=== PATIENT | female | born 1935 | race Caucasian/White ===

== ENCOUNTER 2021-07-16 15:02 | Inpatient (IN) | payer MEDICARE, BC ==
[~2021-07-16] VITALS: Ht 152.4 cm; Wt 79.4 kg
[2021-07-16] MEDS ORDERED: METF500T16 PO (15:58)
[2021-07-16] MEDS ORDERED: INSU100I53 SQ (15:58)
[2021-07-16] MEDS ORDERED: ALBU0.63 NEB (15:58)
[2021-07-16] MEDS ORDERED: TRAZ-120 PO (15:58)
[2021-07-16] MEDS ORDERED: GEODON IM (15:58)
[2021-07-16] MEDS ORDERED: QUET50TA5 PO (15:58)
[2021-07-16] MEDS ORDERED: ACET325T9 PO (15:58)
[2021-07-16] MEDS ORDERED: NYST15CR TP (16:01)
--- NOTE | 2021-07-16 22:25 | RAD ---
Exam: Pelvis with bilateral hips INDICATION: Pelvic and hip pain TECHNIQUE: Frontal view of pelvis with frontal and frog-leg lateral views of the right and left hip Comparisons: None FINDINGS: Bone mineralization is normal. No acute or healed fractures. Soft tissues are unremarkable. Joint spa seth are well-maintained. IMPRESSION: No acute osseous abnormality. Electronically signed by: Vale Frias MD (07/16/2021 10:22 PM) KAREEM
[2021-07-16 22:29] VITALS: BP 104/64
[2021-07-16] MEDS ORDERED: METHYL SALICYLATE/MENTHOL TOPICAL OINTMENT 57GM TUBE. TP PRN (22:45)
[2021-07-16] MEDS ORDERED: ACETAMINOPHEN 325 MG TABLET PO PRN (22:45)
[2021-07-16] MEDS ORDERED: INSULIN ASPART 100 UNIT SQ PRN (22:45)
[2021-07-16] MEDS ORDERED: MAGNESIUM HYDROXIDE 2,400 MG/30 ML ORAL.SUSP. PO PRN (22:45)
[2021-07-16] MEDS ORDERED: NYSTATIN 100,000 UNIT/GM TOPICAL CREAM 15GM TUBE. TP PRN (22:45)
[2021-07-16] MEDS ORDERED: NON FORMULARY ITEM (Albuterol Sulfate (Albuterol Sulfate Neb Soln) 1 VIAL) NEB PRN (22:45)
[2021-07-16] MEDS ORDERED: MAG HYDROX/AL HYDROX/SIMETH 30 ML ORAL.SUSP PO PRN (22:45)
[2021-07-16] MEDS ORDERED: ALBUTEROL SULFATE 2.5 MG/3 ML NEBU. NEB PRN (23:00)
[2021-07-17] MEDS ORDERED: DEXTROSE 50% 25 GM / 50ML DISP.SYRIN. IV PRN (00:15)
--- NOTE | 2021-07-17 00:41 | NUR ---
Nursing Note Admission Note with Justification for Admission to [facility] Patient admitted to [facility] for protective oversight for emergency stabilization of acute psychiatric crisis. Pt admitted from: [facility] Facility Mode of arrival: Secure Transport Accompanied By: Secure Transport Precipitating behaviors that initiated intake and admission: Pt hallucinating, irritable calling out angry, confused, Delusions, combative, verbal aggression Description of failure of out patient attempts at stabilization in previous setting list behavior and medication trials: Med adjustments, ER visit, geodon injections. Behaviors and assessment findings upon admission: Pt arrives very anxious screams out when staff touch her, shaking, very dramatic, yelling out for people. Difficult to get her to follow commands. Left leg looked shortened and externally rotated xrays normal, Grand niece states she may have a leg length discrepancy because she noted her gait off in a sort of "hobble" fashion. Pt is a poor historian. Plan: Admit for protective oversight for adjustment and stabilization of medications, behaviors and mood. Intense treatment regimen including groups, medication adjustments, therapy, consistent regimen for ADL's, self care, and sleep hygiene. Daily monitoring by Inpatient staff, Psychiatry, and Medical Physician.
[2021-07-17 06:10] VITALS: BP 95/55
[2021-07-17] MEDS ORDERED: ALBUTEROL SULFATE 8GM INHALER. INH PRN (06:30)
[2021-07-17 06:55] LABS: BASO # 0.1 x10^3/uL (0.0-0.2); BASO % 1 % (0-3); EOS # 0.2 x10^3/uL (0.0-0.7); EOS % 3 % (0-3); HEMATOCRIT 31.1 % (36.0-47.0); LYMPH # 2.6 x10^3/uL (1.0-4.8); LYMPH % 32 % (24-48); MEAN CORPUSCULAR HEMOGLOBIN 27 pg (25-35); MEAN CORPUSCULAR HGB CONC 32 g/dL (31-37); MEAN CORPUSCULAR VOLUME 85 fL (79-100); MONO # 0.6 x10^3/uL (0.0-1.1); MONO % 7 % (0-9); NEUT # 4.6 x10^3uL (1.8-7.7); NEUT % 57 % (31-73); PLATELET COUNT 158 x10^3/uL (140-400); RED BLOOD COUNT 3.67 x10^6/uL (3.50-5.40); RED CELL DISTRIBUTION WIDTH 14.4 % (11.5-14.5)
[2021-07-17 07:03] LABS: ALBUMIN 2.3 g/dL (3.4-5.0); ALBUMIN/GLOBULIN RATIO 0.5 (1.0-1.7); CALCIUM 8.6 mg/dL (8.5-10.1); CREATININE 1.2 mg/dL (0.6-1.0); GFR 42.8; MAGNESIUM 1.5 mg/dL (1.8-2.4); POTASSIUM 3.8 mmol/L (3.5-5.1); TOTAL BILIRUBIN 0.2 mg/dL (0.2-1.0); TOTAL PROTEIN 6.5 g/dL (6.4-8.2)
--- NOTE | 2021-07-17 07:17 | PDOC ---
Exam Note: Troy Note: Late entry for 07/16/2021. Please also refer to the separate dictated note~for this date of service dictated separately.~Patient seen individually. Discussed the patient with Nursing staff reviewed the chart.~Reviewed interim history and current functioning. Reviewed vital signs,~Labs/ Radiology~and current medic ations noted below. Continue current treatment with the changes noted in the dictated addendum note Assessment: Vital Signs/I&O: Vital Signs Date Time Temp Pulse Resp B/P (MAP) Pulse Ox O2 Delivery O2 Flow Rate FiO2 07/17/21 06:10 96.9 77 16 95/55 (68) 93 I & O 07/16/21 07/16/21 07/17/21 15:00 23:00 07:00 Intake Total 0 ml Balance 0 ml Labs: Laboratory Tests Test 07/17/21 06:30 White Blood Count 8.0 x10^3/uL (4.0-11.0) Red Blood Count 3.67 x10^6/uL (3.50-5.40) Hemoglobin 10.0 g/dL (12.0-15.5) L Hematocrit 31.1 % (36.0-47.0) L Mean Corpuscular Volume 85 fL (79-100) Mean Corpuscular Hemoglobin 27 pg (25-35) Mean Corpuscular Hemoglobin Concent 32 g/dL (31-37) Red Cell Distribution Width 14.4 % (11.5-14.5) Platelet Count 158 x10^3/uL (140-400) Neutrophils (%) (Auto) 57 % (31-73) Lymphocytes (%) (Auto) 32 % (24-48) Monocytes (%) (Auto) 7 % (0-9) Eosinophils (%) (Auto) 3 % (0-3) Basophils (%) (Auto) 1 % (0-3) Neutrophils # (Auto) 4.6 x10^3uL (1.8-7.7) Lymphocytes # (Auto) 2.6 x10^3/uL (1.0-4.8) Monocytes # (Auto) 0.6 x10^3/uL (0.0-1.1) Eosinophils # (Auto) 0.2 x10^3/uL (0.0-0.7) Basophils # (Auto) 0.1 x10^3/uL (0.0-0.2) Sodium Level 142 mmol/L (136-145) Potassium Level 3.8 mmol/L (3.5-5.1) Chloride Level 107 mmol/L (98-107) Carbon Dioxide Level 27 mmol/L (21-32) Anion Gap 8 (6-14) Blood Urea Nitrogen 24 mg/dL (7-20) H Creatinine 1.2 mg/dL (0.6-1.0) H Estimated GFR (Cockcroft-Gault) 42.8 BUN/Creatinine Ratio 20 (6-20) Glucose Level 145 mg/dL (70-99) H Calcium Level 8.6 mg/dL (8.5-10.1) Magnesium Level 1.5 mg/dL (1.8-2.4) L Total Bilirubin 0.2 mg/dL (0.2-1.0) Aspartate Amino Transferase (AST) 22 U/L (15-37) Alanine Aminotransferase (ALT) 26 U/L (14-59) Alkaline Phosphatase 106 U/L (46-116) Total Protein 6.5 g/dL (6.4-8.2) Albumin 2.3 g/dL (3.4-5.0) L Albumin/Globulin Ratio 0.5 (1.0-1.7) L Current Medications: Meds: Laboratory Tests Test 07/17/21 06:30 White Blood Count 8.0 x10^3/uL Red Blood Count 3.67 x10^6/uL Hemoglobin 10.0 g/dL Hematocrit 31.1 % Mean Corpuscular Volume 85 fL Mean Corpuscular Hemoglobin 27 pg Mean Corpuscular Hemoglobin Concent 32 g/dL Red Cell Distribution Width 14.4 % Platelet Count 158 x10^3/uL Neutrophils (%) (Auto) 57 % Lymphocytes (%) (Auto) 32 % Monocytes (%) (Auto) 7 % Eosinophils (%) (Auto) 3 % Basophils (%) (Auto) 1 % Neutrophils # (Auto) 4.6 x10^3uL Lymphocytes # (Auto) 2.6 x10^3/uL Monocytes # (Auto) 0.6 x10^3/uL Eosinophils # (Auto) 0.2 x10^3/uL Basophils # (Auto) 0.1 x10^3/uL Sodium Level 142 mmol/L Potassium Level 3.8 mmol/L Chloride Level 107 mmol/L Carbon Dioxide Level 27 mmol/L Anion Gap 8 Blood Urea Nitrogen 24 mg/dL Creatinine 1.2 mg/dL Estimated GFR (Cockcroft-Gault) 42.8 BUN/Creatinine Ratio 20 Glucose Level 145 mg/dL Calcium Level 8.6 mg/dL Magnesium Level 1.5 mg/dL Total Bilirubin 0.2 mg/dL Aspartate Amino Transf (AST/SGOT) 22 U/L Alanine Aminotransferase (ALT/SGPT) 26 U/L Alkaline Phosphatase 106 U/L Total Protein 6.5 g/dL Albumin 2.3 g/dL Albumin/Globulin Ratio 0.5 Current Medications Medications (Trade) Dose Ordered Sig/Richard Route PRN Reason Start Time Stop Time Status Last Admin Dose Admin Influenza Virus Vaccine Quadrival (Flulaval Quad Syringe) 0.5 ml ONCE ONCE VAX IM 07/17/21 09:00 07/17/21 09:01 Acetaminophen (Tylenol) 650 mg PRN Q6HRS PRN PO PAIN/FEVER 07/16/21 22:45 UNV Metformin HCl (Glucophage) 1,000 mg BIDWMEALS PO 07/17/21 08:00 Nystatin (Mycostatin) 1 sulma PRN BID PRN TP RASH 07/16/21 22:45 Quetiapine Fumarate (SEROquel) 50 mg BID PO 07/17/21 09:00 Trazodone HCl (Desyrel) 50 mg QHS PO 07/17/21 21:00 Non-Formulary Medication (Albuterol Sulfate (Albuterol Sulfate Neb Soln)) 1 vial QID PRN NEB SHORTNESS OF AIR 07/16/21 22:45 UNV Non-Formulary Medication (Insulin Aspart (Insulin Aspart Flexpen)) 100 unit PRN AFTMEALHC PRN SQ ELEVATED BLOOD SUGAR 07/16/21 22:45 UNV Acetaminophen (Tylenol) 650 mg PRN Q6HRS PRN PO MILD PAIN / TEMP > 100.3'F 07/16/21 22:45 Multi-Ingredient Ointment (Analgesic [place]) 1 sulma PRN QID PRN TP MUSCLE PAIN 07/16/21 22:45 Al Hydroxide/Mg Hydroxide (Mylanta Plus Xs) 15 ml PRN AFTMEALHC PRN PO DYSPEPSIA 07/16/21 22:45 Magnesium Hydroxide (Milk Of Magnesia) 2,400 mg PRN QHS PRN PO CONSTIPATION 07/16/21 22:45 Albuterol Sulfate (Ventolin) 2.5 mg PRN Q6HRS PRN NEB SHORTNESS OF BREATH 07/16/21 23:00 07/17/21 06:25 DC Insulin Human Lispro (HumaLOG) 0-5 UNITS TIDWMEALS SQ 07/17/21 08:00 Dextrose (Dextrose 50%-Water Syringe) 12.5 gm PRN Q15MIN PRN IV SEE COMMENTS 07/17/21 00:15 Albuterol Sulfate (Ventolin Hfa Inhaler) 1 puff PRN Q6HRS PRN INH SHORTNESS OF BREATH 07/17/21 06:30 I have reviewed the current psychotropics carefully including drug interactions. Risk benefit ratio favors no change other than as noted in my dictated progress note. SOO BAIRES MD Jul 17, 2021 07:17
[2021-07-17 07:25] LABS: BILIRUBIN,URINE NEG (NEG); CLARITY,URINE CLEAR; COLOR,URINE YELLOW; GLUCOSE,URINE 100 mg/dL (NEG)
[2021-07-17 07:26] LABS: BACTERIA,URINE 0 /HPF (0-FEW); HYALINE CASTS, URINE OCC /HPF; NITRITE,URINE NEG (NEG); SQUAMOUS EPITHELIAL CELL,UR MOD /LPF; UROBILINOGEN,URINE 0.2 mg/dL (0.2 mg/dL)
[2021-07-17] MEDS: INSULIN LISPRO 300 UNITS/3 ML VIAL. SQ SCH ×3 (08:00→17:10)
[2021-07-17] MEDS ORDERED: FLU VACC QUAD 21-22 (6MOS+) PF 0.5 ML SYRINGE. VAX IM ONE (09:00)
[2021-07-17] MEDS: QUEtiapine 50 MG TABLET. PO SCH ×2 (09:14→21:05)
[2021-07-17] MEDS: metFORMIN 500 MG TABLET PO SCH ×2 (09:14→17:08)
--- NOTE | 2021-07-17 12:23 | EKG ---
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
[2021-07-17 13:11] LABS: THYROXINE 5.6 ug/dL (4.5-12.0)
--- NOTE | 2021-07-17 15:00 | NUR ---
Nursing note: Patient is in her room for morning medication & assessment. She is compliant with medications taken whole, with encouragement. She is alert and oriented to self only, not able to report last name or year of . She yells out unprovoked, demanding, as well as sarcastic. She was VA to staff, calling them dummies and dumb assess. Patient propels self in w/c or uses walker, however she doesn't always participate requiring a 2:1 lift assist. She received her flu shot this am, no adverse reaction noted. She is currently sitting in her w/c in the [facility] with eyes closed. Will continue to monitor.
[2021-07-17 15:13] LABS: THYROID STIM HORMONE (TSH) 1.689 uIU/mL (0.358-3.740)
[2021-07-17 15:42] VITALS: BP 111/58
[2021-07-17] MEDS: ACETAMINOPHEN 325 MG TABLET PO PRN (17:14)
--- NOTE | 2021-07-17 19:01 | HP ---
DATE OF SERVICE: 07/17/2021 ADMIT DATE: 07/16/2021 PSYCHIATRIC ADMISSION HISTORY/EVALUATION This is a late entry, date of service 07/16 covers the elements not covered in my initial note, 07/16. I met with the patient on the evening of 07/16 discussed previously with Eliza Borrero, certified wellness program coordinator and nursing staff. IDENTIFYING DATA: The patient is an 86-year-old female referred to us from [facility] by her primary care physician, psychiatrist, on account of worsening confusion, being combative, having auditory hallucinations and aggressive behavior. She was screaming, cursing at staff, disruptive, having marked sleep disturbance, making sexually inappropriate comments and worsening confusion. She had failed outpatient psychiatric intervention resulting in this referral. CHIEF COMPLAINT: "I don't know when I came here." The patient answered as I questioned her and she had just arrived on the unit about half an hour before I saw her. HISTORY OF PRESENT ILLNESS: The patient reportedly has a diagnosis of schizophrenia, but on checking with the niece who knows the history, the niece was not aware of the diagnosis. Nevertheless, over the past 1 year or so she has had increasing confusion, forgetfulness, psychotic symptoms, depression and aggression as noted above. No active suicidal or homicidal ideation. She has also had repeated falls. No clear symptoms of bipolar disorder. PAST PSYCHIATRIC HISTORY: As above. PAST MEDICAL HISTORY: Positive for diabetes mellitus, hyperlipidemia, asthma, history of sepsis and recurrent falls. Accu-Cheks before meals and at bedtime with sliding scale insulin. ALLERGIES: Negative. CODE STATUS: Full code. DIET: ADA. Takes medications whole. Ambulates with walker and wheelchair. CURRENT PSYCHOTROPICS: Seroquel 50 mg b.i.d., trazodone 50 mg at bedtime. FAMILY HISTORY: Noncontributory. SOCIAL HISTORY: No history of alcohol, drug abuse, physical, sexual or elder abuse. She is not known to be a perpetrator. Reportedly, she never , has no children, but raised her niece from a very young age. She was one of 10 siblings. REVIEW OF SYSTEMS: Ambulation impaired. No CV, , pulmonary, eye, ENT system symptoms on review. MENTAL STATUS EXAM: Oriented to herself. She was unable to tell me when she arrived or the year or where she was living before she came here. Insight, judgment, recent and remote memory, attention, concentration, fund of knowledge poor consistent with her diagnosis. IMPRESSION: Major neurocognitive disorder, Alzheimer, vascular with delusion, depression, behavioral disturbance, anxiety disorder, unspecified; impulse control disorder, unspecified, questionable history of schizophrenia. Rest as above. PLAN: Admit to Geropsychiatry Unit, [facility]. I will see the patient daily individually from a psychiatric standpoint, medical followup, Dr. Díaz/Dr. Crouch. Continue patient on her current psychotropics. Check CT head given the recent history of worsening confusion. Try and obtain past records for schizophrenia diagnosis and make further adjustments in psychotropics post-baseline assessment. ESTIMATED LENGTH OF STAY: 10-12 days. DISPOSITION PLAN: Back to skilled nursing when stable. CHRISTINA DR: Katy TID: [id number]
[2021-07-17] MEDS: traZODone 50 MG TABLET. PO SCH (21:05)
--- NOTE | 2021-07-17 21:11 | PDOC ---
Exam Note: Troy Note: Please also refer to the separate dictated note~for this date of service dictated separately.~Patient seen individually. Discussed the patient with Nursing staff reviewed the chart.~Reviewed interim history and current functioning. Reviewed vital signs,~Labs/ Radiology~and current medications noted below. Continue current treatment with the changes noted in the dictated addendum note Assessment: Vital Signs/I&O: Vital Signs Date Time Temp Pulse Resp B/P (MAP) Pulse Ox O2 Delivery O2 Flow Rate FiO2 07/17/21 15:42 98.1 74 16 111/58 (75) 95 I & O 07/16/21 07/16/21 07/17/21 15:00 23:00 07:00 Intake Total 0 ml Balance 0 ml Labs: Laboratory Tests Test 07/17/21 06:18 07/17/21 06:30 07/17/21 07:32 07/17/21 11:42 Urine Collection Type U cath Urine Color Yellow Urine Clarity Clear Urine pH 5.0 Urine Specific [place] >=1.030 Urine Protein Trace (NEG-TRACE) Urine Glucose (UA) 100 mg/dL (NEG) Urine Ketones (Stick) Trace mg/dL (NEG) Urine Blood Neg (NEG) Urine Nitrite Neg (NEG) Urine Bilirubin Neg (NEG) Urine Urobilinogen Dipstick 0.2 mg/dL (0.2 mg/dL) Urine Leukocyte Esterase Neg (NEG) Urine RBC 3-5 /HPF (0-2) Urine WBC 5-10 /HPF (0-4) Urine Squamous Epithelial Cells Mod /LPF Urine Bacteria 0 /HPF (0-FEW) Urine Hyaline Casts Occ /HPF Urine Mucus Marked /LPF White Blood Count 8.0 x10^3/uL (4.0-11.0) Red Blood Count 3.67 x10^6/uL (3.50-5.40) Hemoglobin 10.0 g/dL (12.0-15.5) L Hematocrit 31.1 % (36.0-47.0) L Mean Corpuscular Volume 85 fL (79-100) Mean Corpuscular Hemoglobin 27 pg (25-35) Mean Corpuscular Hemoglobin Concent 32 g/dL (31-37) Red Cell Distribution Width 14.4 % (11.5-14.5) Platelet Count 158 x10^3/uL (140-400) Neutrophils (%) (Auto) 57 % (31-73) Lymphocytes (%) (Auto) 32 % (24-48) Monocytes (%) (Auto) 7 % (0-9) Eosinophils (%) (Auto) 3 % (0-3) Basophils (%) (Auto) 1 % (0-3) Neutrophils # (Auto) 4.6 x10^3uL (1.8-7.7) Lymphocytes # (Auto) 2.6 x10^3/uL (1.0-4.8) Monocytes # (Auto) 0.6 x10^3/uL (0.0-1.1) Eosinophils # (Auto) 0.2 x10^3/uL (0.0-0.7) Basophils # (Auto) 0.1 x10^3/uL (0.0-0.2) D-Dimer (Massiel) > 19.00 mg/L (0.00-0.50) H Sodium Level 142 mmol/L (136-145) Potassium Level 3.8 mmol/L (3.5-5.1) Chloride Level 107 mmol/L (98-107) Carbon Dioxide Level 27 mmol/L (21-32) Anion Gap 8 (6-14) Blood Urea Nitrogen 24 mg/dL (7-20) H Creatinine 1.2 mg/dL (0.6-1.0) H Estimated GFR (Cockcroft-Gault) 42.8 BUN/Creatinine Ratio 20 (6-20) Glucose Level 145 mg/dL (70-99) H Calcium Level 8.6 mg/dL (8.5-10.1) Magnesium Level 1.5 mg/dL (1.8-2.4) L Iron Level 32 ug/dL (50-170) L Total Iron Binding Capacity 260 ug/dL (250-450) Iron Saturation 12 % (15-34) L Total Bilirubin 0.2 mg/dL (0.2-1.0) Aspartate Amino Transferase (AST) 22 U/L (15-37) Alanine Aminotransferase (ALT) 26 U/L (14-59) Alkaline Phosphatase 106 U/L (46-116) Total Protein 6.5 g/dL (6.4-8.2) Albumin 2.3 g/dL (3.4-5.0) L Albumin/Globulin Ratio 0.5 (1.0-1.7) L Triglycerides Level 171 mg/dL (0-150) H Cholesterol Level 159 mg/dL (0-200) LDL Cholesterol, Calculated 90 mg/dL (0-100) VLDL Cholesterol, Calculated 34 mg/dL (0-40) Non-HDL Cholesterol Calculated 124 mg/dL (0-129) HDL Cholesterol 35 mg/dL (40-60) L Cholesterol/HDL Ratio 4.0 Vitamin B12 Level 604 pg/mL (247-911) 25-Hydroxy Vitamin D Total 33.9 ng/mL (30-100) Thyroid Stimulating Hormone (TSH) 1.689 uIU/mL (0.358-3.740) Thyroxine (T4) 5.6 ug/dL (4.5-12.0) Total Triiodothyronine (TT3) 72 ng/dL (71-180) Treponema pallidum Antibody Nonreactive (Nonreactive) Glucose (Fingerstick) 147 mg/dL (70-99) H 194 mg/dL (70-99) H Test 07/17/21 16:59 07/17/21 19:14 Glucose (Fingerstick) 195 mg/dL (70-99) H 169 mg/dL (70-99) H Current Medications: Meds: Laboratory Tests Test 07/17/21 06:18 07/17/21 06:30 07/17/21 07:32 07/17/21 11:42 Urine Collection Type U cath Urine Color Yellow Urine Clarity Clear Urine pH 5.0 Urine Specific [place] >=1.030 Urine Protein Trace Urine Glucose (UA) 100 mg/dL Urine Ketones (Stick) Trace mg/dL Urine Blood Neg Urine Nitrite Neg Urine Bilirubin Neg Urine Urobilinogen Dipstick 0.2 mg/dL Urine Leukocyte Esterase Neg Urine RBC 3-5 /HPF Urine WBC 5-10 /HPF Urine Squamous Epithelial Cells Mod /LPF Urine Bacteria 0 /HPF Urine Hyaline Casts Occ /HPF Urine Mucus Marked /LPF White Blood Count 8.0 x10^3/uL Red Blood Count 3.67 x10^6/uL Hemoglobin 10.0 g/dL Hematocrit 31.1 % Mean Corpuscular Volume 85 fL Mean Corpuscular Hemoglobin 27 pg Mean Corpuscular Hemoglobin Concent 32 g/dL Red Cell Distribution Width 14.4 % Platelet Count 158 x10^3/uL Neutrophils (%) (Auto) 57 % Lymphocytes (%) (Auto) 32 % Monocytes (%) (Auto) 7 % Eosinophils (%) (Auto) 3 % Basophils (%) (Auto) 1 % Neutrophils # (Auto) 4.6 x10^3uL Lymphocytes # (Auto) 2.6 x10^3/uL Monocytes # (Auto) 0.6 x10^3/uL Eosinophils # (Auto) 0.2 x10^3/uL Basophils # (Auto) 0.1 x10^3/uL D-Dimer (Massiel) > 19.00 mg/L Sodium Level 142 mmol/L Potassium Level 3.8 mmol/L Chloride Level 107 mmol/L Carbon Dioxide Level 27 mmol/L Anion Gap 8 Blood Urea Nitrogen 24 mg/dL Creatinine 1.2 mg/dL Estimated GFR (Cockcroft-Gault) 42.8 BUN/Creatinine Ratio 20 Glucose Level 145 mg/dL Calcium Level 8.6 mg/dL Magnesium Level 1.5 mg/dL Iron Level 32 ug/dL Total Iron Binding Capacity 260 ug/dL Iron Saturation 12 % Total Bilirubin 0.2 mg/dL Aspartate Amino Transf (AST/SGOT) 22 U/L Alanine Aminotransferase (ALT/SGPT) 26 U/L Alkaline Phosphatase 106 U/L Total Protein 6.5 g/dL Albumin 2.3 g/dL Albumin/Globulin Ratio 0.5 Triglycerides Level 171 mg/dL Cholesterol Level 159 mg/dL LDL Cholesterol, Calculated 90 mg/dL VLDL Cholesterol, Calculated 34 mg/dL Non-HDL Cholesterol Calculated 124 mg/dL HDL Cholesterol 35 mg/dL Cholesterol/HDL Ratio 4.0 Vitamin B12 Level 604 pg/mL 25-Hydroxy Vitamin D Total 33.9 ng/mL Thyroid Stimulating Hormone (TSH) 1.689 uIU/mL Thyroxine (T4) 5.6 ug/dL Total Triiodothyronine 72 ng/dL Treponema pallidum Antibody Nonreactive Glucose (Fingerstick) 147 mg/dL 194 mg/dL Test 07/17/21 16:59 07/17/21 19:14 Glucose (Fingerstick) 195 mg/dL 169 mg/dL Current Medications Medications (Trade) Dose Ordered Sig/Richard Route PRN Reason Start Time Stop Time Status Last Admin Dose Admin Influenza Virus Vaccine Quadrival (Flulaval Quad Syringe) 0.5 ml ONCE ONCE VAX IM 07/17/21 09:00 07/17/21 09:01 DC 07/17/21 10:00 Acetaminophen (Tylenol) 650 mg PRN Q6HRS PRN PO PAIN/FEVER 07/16/21 22:45 UNV Metformin HCl (Glucophage) 1,000 mg BIDWMEALS PO 07/17/21 08:00 07/17/21 17:08 Nystatin (Mycostatin) 1 sulma PRN BID PRN TP RASH 07/16/21 22:45 Quetiapine Fumarate (SEROquel) 50 mg BID PO 07/17/21 09:00 07/17/21 21:05 Trazodone HCl (Desyrel) 50 mg QHS PO 07/17/21 21:00 07/17/21 21:05 Non-Formulary Medication (Albuterol Sulfate (Albuterol Sulfate Neb Soln)) 1 vial QID PRN NEB SHORTNESS OF AIR 07/16/21 22:45 UNV Non-Formulary Medication (Insulin Aspart (Insulin Aspart Flexpen)) 100 unit PRN AFTMEALHC PRN SQ ELEVATED BLOOD SUGAR 07/16/21 22:45 UNV Acetaminophen (Tylenol) 650 mg PRN Q6HRS PRN PO MILD PAIN / TEMP > 100.3'F 07/16/21 22:45 07/17/21 17:14 Multi-Ingredient Ointment (Analgesic [place]) 1 sulma PRN QID PRN TP MUSCLE PAIN 07/16/21 22:45 Al Hydroxide/Mg Hydroxide (Mylanta Plus Xs) 15 ml PRN AFTMEALHC PRN PO DYSPEPSIA 07/16/21 22:45 Magnesium Hydroxide (Milk Of Magnesia) 2,400 mg PRN QHS PRN PO CONSTIPATION 07/16/21 22:45 Albuterol Sulfate (Ventolin) 2.5 mg PRN Q6HRS PRN NEB SHORTNESS OF BREATH 07/16/21 23:00 07/17/21 06:25 DC Insulin Human Lispro (HumaLOG) 0-5 UNITS TIDWMEALS SQ 07/17/21 08:00 07/17/21 17:10 Dextrose (Dextrose 50%-Water Syringe) 12.5 gm PRN Q15MIN PRN IV SEE COMMENTS 07/17/21 00:15 Albuterol Sulfate (Ventolin Hfa Inhaler) 1 puff PRN Q6HRS PRN INH SHORTNESS OF BREATH 07/17/21 06:30 Current Medications Medications (Trade) Dose Ordered Sig/Richard Route PRN Reason Start Time Stop Time Status Last Admin Dose Admin Influenza Virus Vaccine Quadrival (Flulaval Quad Syringe) 0.5 ml ONCE ONCE VAX IM 07/17/21 09:00 07/17/21 09:01 DC 07/17/21 10:00 Metformin HCl (Glucophage) 1,000 mg BIDWMEALS PO 07/17/21 08:00 07/17/21 17:08 Quetiapine Fumarate (SEROquel) 50 mg BID PO 07/17/21 09:00 07/17/21 21:05 Trazodone HCl (Desyrel) 50 mg QHS PO 07/17/21 21:00 07/17/21 21:05 Acetaminophen (Tylenol) 650 mg PRN Q6HRS PRN PO MILD PAIN / TEMP > 100.3'F 07/16/21 22:45 07/17/21 17:14 Insulin Human Lispro (HumaLOG) 0-5 UNITS TIDWMEALS SQ 07/17/21 08:00 07/17/21 17:10 I have reviewed the current psychotropics carefully including drug interactions. Risk benefit ratio favors no change other than as noted in my dictated progress note. Diagnosis: Problems: (1) Major neurocognitive disorder (2) Dementia in Alzheimer's disease with delusions (3) Dementia in Alzheimer's disease with depression (4) Dementia of the Alzheimer's type with early onset with behavioral disturbance (5) Dementia, vascular, with delusions (6) Dementia, vascular, with depression (7) Anxiety disorder, unspecified (8) Impulse control disorder, unspecified SOO BAIRES MD Jul 17, 2021 21:11
--- NOTE | 2021-07-18 00:24 | CONS ---
DATE OF CONSULTATION: 07/17/2021 ATTENDING PHYSICIAN: Dr. Baires. We are asked to see this patient for medical consultation. HISTORY OF PRESENT ILLNESS: The patient is a an 86-year-old female from [facility] outside of [place], [place]. Dr. Raza is her primary care doctor. She is profoundly demented. She has been aggressive, refusing laboratories and urinalysis, not sleeping for a long time, confrontational and some auditory hallucinations. She is sent here for further treatment and evaluation of medications. PAST MEDICAL HISTORY: Significant for longstanding schizoaffective disorder, type 2 diabetes, generalized anxiety, hyperlipidemia, asthma, obesity and hypoglycemia. CURRENT MEDICATIONS: Reviewed. She was taking Tylenol, albuterol, regular insulin and metformin 1000 mg b.i.d., nystatin, Seroquel, trazodone, and Geodon. ALLERGIES: She has no recorded drug allergies. SOCIAL HISTORY: She was a smoker in the past, not currently smoking. No alcohol use. FAMILY HISTORY: Unobtainable. REVIEW OF SYSTEMS: Unfortunately, unobtainable due to the patient's profound dementia. PHYSICAL EXAMINATION: GENERAL: When I saw her, this is a very confused, elderly female in her wheelchair. VITAL SIGNS: Initial vital signs showed blood pressure 104/64 mmHg, pulse is 77 and regular. She is afebrile. Oxygen saturation 93% on room air. HEENT: Head is without trauma. Pupils are reactive. Sclerae is nonicteric. The oropharynx is clear. No obstruction. NECK: Supple, no bruits. LUNGS: Shallow respirations. CARDIOVASCULAR: Showed regular heart tones. No gallops. ABDOMEN: Obese, protuberant. No organomegaly. Bowel sounds are hypoactive. EXTREMITIES: Show trace edema. NEUROLOGIC: Profoundly confused. She is not aware of person, place or time. PERTINENT LABORATORY STUDIES: Admission hemoglobin was 10.0 g/dL with a white count of 8000. Electrolytes within normal range. Creatinine is 1.2 mg/dL. Nonfasting blood sugar 145. ASSESSMENT: 1. This 86-year-old female, skilled nursing resident, has profound dementia. 2. Schizoaffective disorder with behavioral issues. 3. History of asthma. 4. Hyperlipidemia. 5. Degenerative arthritis. RECOMMENDATIONS: 1. This patient is stable from medical standpoint. 2. Home meds were reviewed and should be continued. Thank you again for asking me to see this patient for medical consultation. We should gladly follow along during her inpatient stay. SORAIDA/PAULINE DR: Isaias TID: [id number] CC: SOO BAIRES MD
[2021-07-18 01:15] LABS: HEMOGLOBIN A1C 6.8 % (4.8-5.6)
[2021-07-18 06:26] VITALS: BP 131/71
--- NOTE | 2021-07-18 07:24 | PDOC ---
Exam Note: Troy Note: This note is a late entry for 07/17/2021 covers elements not covered in my initial note. Subjective: The patient was seen individually in the evening of 07/17/2021 with Liya TANG, discussed and reviewed the chart. The patient slept 6-1/4 hours previous night. Overall the patient remains confused, was unaware of her last name or the year of . She has been yelling out for no reason at times and using profanities for nursing staff. Urine has reflex to culture and this could explain some of her confusion and agitation. Physically nursing staff noted that her left leg is shorter than the right. At one point she was staring at the wall, possibly hallucinating and yelling out at the bedroom wall. Reviewed her history and she was one of 10 siblings, has no children of her own. She raised her niece since the niece was about 5 years old. Review of Systems: Ambulation impaired in wheelchair. No CV, , pulmonary, eye, ENT system symptoms on review. Mental Status Exam: The patient is oriented to herself. Insight and judgment, recent and remote memory, attention and concentration, fund of knowledge is poor consistent with her diagnosis. Remote memory is better than recent. Laboratory Data: Reviewed. Impression: Major neurocognitive disorder Alzheimer, vascular, with delusions, depression, behavioral disturbance. Anxiety disorder unspecified. Impulse control disorder unspecified. We have enquired about the history of schizophr enia and the niece is unable to confirm that. Plan: Her confusion has worsened over the past one year. We will check her CT head. Maintain current psychotropics, Seroquel 50 mg b.i.d., and trazodone 50 mg h.s. We will observe baseline in another 24 to 48 hours and then adjust psychotropics as clinically indicated. Assessment: Vital Signs/I&O: Vital Signs Date Time Temp Pulse Resp B/P (MAP) Pulse Ox O2 Delivery O2 Flow Rate FiO2 07/18/21 06:26 97.2 77 24 131/71 (91) 96 I & O 07/17/21 07/17/21 07/18/21 15:00 23:00 07:00 Intake Total 180 ml 360 ml Balance 180 ml 360 ml Labs: Laboratory Tests Test 07/17/21 07:32 07/17/21 11:42 07/17/21 16:59 07/17/21 19:14 Glucose (Fingerstick) 147 mg/dL (70-99) H 194 mg/dL (70-99) H 195 mg/dL (70-99) H 169 mg/dL (70-99) H Current Medications: Meds: Laboratory Tests Test 07/17/21 07:32 07/17/21 11:42 07/17/21 16:59 07/17/21 19:14 Glucose (Fingerstick) 147 mg/dL 194 mg/dL 195 mg/dL 169 mg/dL Current Medications Medications (Trade) Dose Ordered Sig/Richard Route PRN Reason Start Time Stop Time Status Last Admin Dose Admin Influenza Virus Vaccine Quadrival (Flulaval Quad 2117-2231 Syringe) 0.5 ml ONCE ONCE VAX IM 07/17/21 09:00 07/17/21 09:01 DC 07/17/21 10:00 Acetaminophen (Tylenol) 650 mg PRN Q6HRS PRN PO PAIN/FEVER 07/16/21 22:45 UNV Metformin HCl (Glucophage) 1,000 mg BIDWMEALS PO 07/17/21 08:00 07/17/21 17:08 Nystatin (Mycostatin) 1 sulma PRN BID PRN TP RASH 07/16/21 22:45 Quetiapine Fumarate (SEROquel) 50 mg BID PO 07/17/21 09:00 07/17/21 21:05 Trazodone HCl (Desyrel) 50 mg QHS PO 07/17/21 21:00 07/17/21 21:05 Non-Formulary Medication (Albuterol Sulfate (Albuterol Sulfate Neb Soln)) 1 vial QID PRN NEB SHORTNESS OF AIR 07/16/21 22:45 UNV Non-Formulary Medication (Insulin Aspart (Insulin Aspart Flexpen)) 100 unit PRN AFTMEALHC PRN SQ ELEVATED BLOOD SUGAR 07/16/21 22:45 UNV Acetaminophen (Tylenol) 650 mg PRN Q6HRS PRN PO MILD PAIN / TEMP > 100.3'F 07/16/21 22:45 07/17/21 17:14 Multi-Ingredient Ointment (Analgesic [place]) 1 sulma PRN QID PRN TP MUSCLE PAIN 07/16/21 22:45 Al Hydroxide/Mg Hydroxide (Mylanta Plus Xs) 15 ml PRN AFTMEALHC PRN PO DYSPEPSIA 07/16/21 22:45 Magnesium Hydroxide (Milk Of Magnesia) 2,400 mg PRN QHS PRN PO CONSTIPATION 07/16/21 22:45 Albuterol Sulfate (Ventolin) 2.5 mg PRN Q6HRS PRN NEB SHORTNESS OF BREATH 07/16/21 23:00 07/17/21 06:25 DC Insulin Human Lispro (HumaLOG) 0-5 UNITS TIDWMEALS SQ 07/17/21 08:00 07/17/21 17:10 Dextrose (Dextrose 50%-Water Syringe) 12.5 gm PRN Q15MIN PRN IV SEE COMMENTS 07/17/21 00:15 Albuterol Sulfate (Ventolin Hfa Inhaler) 1 puff PRN Q6HRS PRN INH SHORTNESS OF BREATH 07/17/21 06:30 Current Medications Medications (Trade) Dose Ordered Sig/Richard Route PRN Reason Start Time Stop Time Status Last Admin Dose Admin Influenza Virus Vaccine Quadrival (Flulaval Quad [id number] Syringe) 0.5 ml ONCE ONCE VAX IM 07/17/21 09:00 07/17/21 09:01 DC 07/17/21 10:00 Metformin HCl (Glucophage) 1,000 mg BIDWMEALS PO 07/17/21 08:00 07/17/21 17:08 Quetiapine Fumarate (SEROquel) 50 mg BID PO 07/17/21 09:00 07/17/21 21:05 Trazodone HCl (Desyrel) 50 mg QHS PO 07/17/21 21:00 07/17/21 21:05 Insulin Human Lispro (HumaLOG) 0-5 UNITS TIDWMEALS SQ 07/17/21 08:00 07/17/21 17:10 I have reviewed the current psychotropics carefully including drug interactions. Risk benefit ratio favors no change other than as noted in my dictated progress note. Diagnosis: Problems: (1) Impulse control disorder, unspecified (2) Anxiety disorder, unspecified (3) Dementia, vascular, with depression (4) Dementia, vascular, with delusions (5) Dementia in Alzheimer's disease with depression (6) Dementia in Alzheimer's disease with delusions (7) Dementia of the Alzheimer's type with early onset with behavioral disturbance (8) Major neurocognitive disorder SOO BAIRES MD Jul 18, 2021 07:24
[2021-07-18] MEDS: metFORMIN 500 MG TABLET PO SCH ×2 (08:21→16:51)
[2021-07-18] MEDS: QUEtiapine 50 MG TABLET. PO SCH (08:21)
[2021-07-18] MEDS: INSULIN LISPRO 300 UNITS/3 ML VIAL. SQ SCH ×3 (08:25→17:00)
--- NOTE | 2021-07-18 09:24 | NUR ---
Pt A&O to name, only. She is repetitive when asking to go home and she does not appear to remember or be receptive to explanation for her current stay on [facility]. She will intermittently yell "help me," "I want to go home," or "I'm cold." She is compliant with whole medications. She is absent of SI/HI behaviors, does not appear to be distracted or distressed by possible VH/AH. She denies pain when asked and states, "I'm not in pain, I'm crazy." Plan of care continues, will pass to next shift.
--- NOTE | 2021-07-18 11:28 | RAD ---
CT HEAD INDICATION: Reason: BASELINE / Spl. Instructions: / History: COMPARISON: None Available. Exposure: One or more of the following individualized dose reduction techniques were utilized for thi s examination: 1. Automated exposure control 2. Adjustment of the mA and/or kV according to patient size 3. Use of iterative reconstruction technique TECHNIQUE: 5 mm contiguous axial images were obtained from the skull base to the vertex in both bone and soft tissue algorithm. FINDINGS: Mild bilateral periventricular white matter hypodensities likely chronic small vessel ischemic diseas e. No evidence of acute intracranial hemorrhage. No extra-axial fluid collections. No mass effect or midline shift. Ventricular size is appropriate. Basal cisterns are patent. No fractures identified.Andrew-white differentiation is preserved.Globes and orbits are within normal l imits. Paranasal sinuses and mastoid air cells are clear. IMPRESSION: No acute intracranial findings. Electronically signed by: Zack Mcmanus MD (07/18/2021 11:26 AM) [id number]
--- NOTE | 2021-07-18 12:04 | NUR ---
WEEKLY ACTIVITY THERAPY NOTE Date of Admission:07/16/21 Date of AT Assessment: TBD Precipitating behaviors that initiated intake and admission: Pt hallucinating, irritable calling out angry, confused, Delusions, combative, verbal aggression Goal aimed: TBD Initial Goal: TBD Weekly progress towards goal: NA Group participation level:NA Weekly highlights: arrived on [facility] Behaviors observed: Plan: meet/assess pt Beneficial adaptations: TBD
--- NOTE | 2021-07-18 12:45 | NUR ---
ACTIVITY THERAPY ASSESSMENT completed based on notes, observation, and interview. Pt was sitting in her wheelchair amongst peers in the hallway. Pt was willing to answer assessment questions and remained pleasant. Pt asked ASSESSMENT ANALYST about exercises groups and said that she would be interested in attending. ASSESSMENT ANALYST explained groups offered on [facility] and pt expressed interest. Pt said that she enjoys reading and some crosswords as well. Pt was able to provide her birthday accurately but said the year was 1918 and said that her mom and dad brought her here. Pt reports that she is and was never able to have children. Pt was unable to recall where she came from prior to admission. Pt does not report any stress at this time and said she is unsure on how she joe with stress . Pt also reports that she ambulates with the wheelchair at all times. Per notes pt is compliant with medications but has been calling staff names. Initial goal aimed to increase socialization and engagement. Pt will participate in at least three activity therapy sessions per week. Addendum: 08/08/21 at 1155 by BELKIS SPRINGER ACT goal changed 08/08:Pt will participate in at least three activity therapy sessions before discharge Addendum: 09/05/21 at 1227 by BELKIS SPRINGER ACT Goal repeated 09/05 Addendum: 09/12/21 at 1156 by BELKIS SPRINGER ACT Goal changed 09/12:Pt will participate in at least five activity therapy sessions before discharge
--- NOTE | 2021-07-18 14:02 | NUR ---
Dr Crouch notified of D-Dimer, no orders at this time. Will continue to monitor.
--- NOTE | 2021-07-18 15:57 | NUR ---
PSYCHOSOCIAL ASSESSMENT ADMISSION DATE: 07/16/21 CONTACT INFORMATION: DPOA/Guardian Contact Name: Lucille Bergman Contact Address: [place], [place] Contact Phone #: [phone] ETHNIC ORIGIN: REASONS FOR ADMISSION: Aggressive Agitated Combative Delusions Hallucinations Sig. Change Sleep ADDITIONAL ADMISSION COMMENTS: Per intake record, pt refusing UA and cath, sexually inappropriate comments to staff, not sleeping for 30 hours, combative to staff, delusions,auditory hallucinations, verbally aggressive, screaming, cussing, disruptive. REASON FOR ADMISSION IN PATIENT/FAMILY'S OWN WORDS: Per pt great niece/DPАнна MORALES who was raised mostly by pt, pt has had a noticeable decline over the past year and particularly over the past couple of months. Up until a year ago, pt was living in her independent living apartment and out of the [place], she moved to [place], [place] and bought a house that she paid winn for. She was then found to be living in very poor conditions without running water and no utilities and overall unable to care for herself. She had a few past hospitalizations but then release to herself and then would be found again living in unsafe conditions. At one point, pt drove herself to Анна's home, but refused to come in to stay, and would only stay in her car. Анна was finally successful at gaining DPOA during one of pt's hospitalizations and also in getting pt's license revoked. During the past year, family and staff, during the different hospitalizations, discovered pt was having hallucinations and delusions that seem to continue. Анна is concerned if pt is struggling with onset of dementia or if pt is truly experiencing psychosis and might clear in the future with medication management. PATIENT/FAMILY EXPECTATIONS FOR ADMISSION: Assist in identifying if pt is struggling with onset of dementia or if pt is truly experiencing psychosis. LIVING SITUATION: Patient lives with: Longterm Other living arrangements: [facility] Contact Name: Nancy Contact Address: [address] [place] [address] Contact Phone #: [phone] Contact Fax #: [phone] FAMILY RELATIONS: Marital Status: # of Marriages: 1 # of Children: 0 H Family Support: Concerned Cooperative Involved in DC Planning Additional Comments r/t Family: Per pt Анна LANG, pt has no children of her own. Pt, however, took in some of her other family members kids and raised them as her own. Анна is one of the children she mostly raised. Pt, also, raised a nephew that has a developmental disability and she is currently still the guardian. Per Анна, pt has nine other siblings that are completely disconnected and none of them have contact with one another. SIGNIFICANT PSYCHIATRIC/MEDICAL HISTORY: Psychiatric/Treatment History: None known. Pertinent Family History: Per Анна, pt has a sister with some mental issues, but Анна is unsure if it is psychosis or dementia. HISTORICAL DATA: Childhood Environment: Critical Stressful Supportive Childhood Environment Additional Comments: Per Анна pt was raised by both of her parents who had 10 children including pt. Анна believes that their upbringing was mostly supportive. She states, however, that the family is like oil and water. They have really never gotten along, especially after pt mother . 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 service: N [employer] background: [employer]ast[employer] [facility]. Sexual orientation: Heterosexual Educational Level: According to PRECIOUS, pt received a high school diploma and she had some technical college. Past/Present Interests/Hobbies: Per record review, pt enjoys exercise, reading, and some crossword puzzles. Financial support/resources: Group Home/Pension Social Security Monthly income: unknown Person handling finances: facility Do you have a history of legal problems: N Cultural considerations: None SOCIAL RELATIONSHIPS-CURRENT/PAST: Psychiatrist: None PCP: Dr. Quang Raza Counselor/Therapist: None Veterans' Administration: None Support Group: None Passenger Car Upholsterer Apprentice/Head Waiter: None Other relationships: Great niece/PRECIOUS Анна Bergman STRENGTHS & WEAKNESSES: Patient's strengths: Good family support Education level Approachable Other patient strengths: Patient's weaknesses: Impulsive Poor relationships Physically Aggressive Verbally Aggressive Other patient weaknesses: PRELIMINARY PLAN OF TREATMENT: Preliminary plan: Dec. Hallucination/Delus Promote Coping Skill Medication Stabilization Monitor Med Effects Control abnormal behavior Prevent Deterioration Dec. Outbursts Dec. Aggression Other preliminary treatment comments: While at [facility], pt will be encouraged to attend group and recreational therapy groups. She will report any known delusions or recognizable hallucinations to medical staff. Pt will be monitored to help in determining if pt is experiencing psychosis or if her symptoms are dementia related. DISCHARGE PLANNING: Discharge planning/disposition: Current Living Arrange. Additional discharge needs identified: None at this time. ADDITIONAL INFORMATION: Other Pertinent Data: Pt Great Niece/DPАнна MORALES, assisted in providing information for the psychosocial assessment and is available for any further information needed.
--- NOTE | 2021-07-18 16:14 | TX PLAN ---
Interdisciplinary Tx Plan Admission Information Jul 16, 2021 at 20:03 Legal Status (on Admission): Voluntary DPOA/Guardian Name: Lucille Bergman Contact Other Contact Name: Jayna Sheikh Contact Verified Code Status: Full Code Allergies: Coded Allergies: No Known Drug Allergies (Unverified , 07/16/21) Diagnoses Primary Diagnosis: (1) Impulse control disorder, unspecified (2) Anxiety disorder, unspecified (3) Dementia, vascular, with depression (4) Dementia, vascular, with delusions (5) Dementia in Alzheimer's disease with depression (6) Dementia in Alzheimer's disease with delusions (7) Dementia of the Alzheimer's type with early onset with behavioral disturbance (8) Major neurocognitive disorder Reasons for Admission: Aggressive, Delusions, Agitated, Sig. Change Sleep, Hallucinations, Combative Problem in Patient's Words: Per pt lucille fishman/DPАнна MORALES who was raised mostly by pt, pt has had a noticable decline over the past year and particularlly over the past couple of months. Up until a year ago, pt was living in her independant living apartment and out of the [place], she moved to [place], [place] and bought a house that she paid winn for. She was then found to be living in very poor conditions without running water and no utilities and overall unable to care for herself. She had a few past hospitalizations but then release to herself and then would be found again living in unsafe conditions. At one point, pt drove herself to Анна's home, but refused to come in to stay, and would only stay in her car. Анна was finally successful at gaining DPOA during one of pt's hospitalizations and also in getting her license revoked. During the past year, family and staff during the different hospitalizations discovered pt was having hallucinations and delusions that seem to continue. Анна is concerned if pt is struggling with onset of dementia or if pt is truly experiencing psychosis and might clear in the future with medication management. Additional Admission Comments: Per intake record, pt refusing UA and cath, sexually inappropriate comments to staff, not sleeping for 30 hours, combative to staff, delusions,auditory hallucinations, verbally aggressive, screaming, cussing, disruptive. Problems Active Problems: Hallucinations, delusions, combative, agitation Inactive Problems: Pt seems to be sleeping better. Will continue to monitor for any changes. Pt Strengths/Limitations Ability for [place]: Poor Cognitive Functioning/Ability: Poor Communication Skills/Ability: Fair Financial Resources: Fair Insight/Judgement: Poor Intellectual Ability: Fair Physical Health: Poor Social Skills: Fair Stability in Family: Fair Stability in School/Work: Fair Verbal Skills: Fair Discharge Criteria Discharge Criteria: Adequate arrangements @DC, Verbal commit med comply, Improved behavior Other Discharge Comments: None at this time. Preliminary Discharge Plan Preliminary DC Plan: Current Living Arrange. Special Precautions Special Precautions: Agitation/Assault Fall Risk: High Other Precautions (specify): Pt has a history of falls. Initial D/C Plan Plan is for pt to return to her facility at [facility]. Identified Discharge Needs: None at this time. Currently Utilized Resources Currently Utilized Resources/P: PCP-Dr. Quang Fishman/PRECIOUS-Анна [facility]; contact-CHANA Cruz Community Resources: None known at this time. Identified Problems/Hx/Goals Objectives/Short-Term Goals Short Term Goals: Control abnormal behavior, Dec. Aggression, Dec. Hallucination/Delus, Dec. Outbursts, Medication Stabilization, Monitor Med Effects, Prevent Deterioration, Promote Coping Skill Short Term Goals in Patient's: Assist with proper diagnosis of psychosis vs dementia. Interventions/Frequency Staff Interventions/Frequency&: Psychiatry to assess pt three times per week for medication management. Nursing to assess behaviors, monitor medications, and complete 15 minute checks daily. Social work to see pt at least two times weekly to aid in return to placement. Activities to encourage pt to participate in group activities daily. 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 Education: According to [employer]OUS, pt received a high school diploma and she had some technical college. Community Follow-up PCP Community Provider/Family Inpu: Pt lucille fishman/Анна LANG, provided pt history for the development of the treatment plan. Анна is available for further information should it be needed. Treatment Plan Explained Patient/Director Clinical Operations had this treatment plan explained to him/her as indicated by the signature below and has been given the opportunity to ask questions and make suggestions: Date: Patient/Director Clinical Operations Signature: LINDA BLACKWELL 11, 2021 16:14
[2021-07-18 16:17] VITALS: BP 110/73
[2021-07-18] MEDS: ACETAMINOPHEN 325 MG TABLET PO PRN (16:50)
--- NOTE | 2021-07-18 16:55 | NUR ---
Pt yelling repeatedly from her room very loudly, when asked what is wrong she tells the LAMINATING MACHINE FEEDER that her back hurts. This nurse enters pt's room shortly thereafter, she is sitting calmly in w/c and not yelling. She did not disclose to this nurse about any pain independently without prompting and had to be asked directly "do you hurt somewhere?" Pt's reports 5/10 back pain, PAINAD score 0. PRN Acetaminophen 650 mg PO administered.
[2021-07-18] MEDS: traZODone 50 MG TABLET. PO SCH (20:10)
[2021-07-18] MEDS: risperiDONE 0.5 MG TABLET. PO SCH (20:10)
--- NOTE | 2021-07-18 21:08 | PDOC ---
Exam Note: Troy Note: Please also refer to the separate dictated note~for this date of service dictated separately.~Patient seen individually. Discussed the patient with Nursing staff reviewed the chart.~Reviewed interim history and current functioning. Reviewed vital signs,~Labs/ Radiology~and current medications noted below. Continue current treatment with the changes noted in the dictated addendum note Assessment: Vital Signs/I&O: Vital Signs Date Time Temp Pulse Resp B/P (MAP) Pulse Ox O2 Delivery O2 Flow Rate FiO2 07/18/21 16:17 97.7 80 20 110/73 (85) 99 Room Air I & O 07/17/21 07/17/21 07/18/21 15:00 23:00 07:00 Intake Total 180 ml 360 ml Balance 180 ml 360 ml Labs: Laboratory Tests Test 07/18/21 06:00 07/18/21 07:59 07/18/21 11:57 07/18/21 16:57 SARS-CoV-2 (PCR) Not detected (NOT DETECTD) Glucose (Fingerstick) 156 mg/dL (70-99) H 156 mg/dL (70-99) H 153 mg/dL (70-99) H Test 07/18/21 19:07 Glucose (Fingerstick) 168 mg/dL (70-99) H Current Medications: Meds: Laboratory Tests Test 07/18/21 06:00 07/18/21 07:59 07/18/21 11:57 07/18/21 16:57 Coronavirus (COVID-19)(PCR) Not detected Glucose (Fingerstick) 156 mg/dL 156 mg/dL 153 mg/dL Test 07/18/21 19:07 Glucose (Fingerstick) 168 mg/dL Current Medications Medications (Trade) Dose Ordered Sig/Richard Route PRN Reason Start Time Stop Time Status Last Admin Dose Admin Influenza Virus Vaccine Quadrival (Flulaval Quad Syringe) 0.5 ml ONCE ONCE VAX IM 07/17/21 09:00 07/17/21 09:01 DC 07/17/21 10:00 Acetaminophen (Tylenol) 650 mg PRN Q6HRS PRN PO PAIN/FEVER 07/16/21 22:45 UNV Metformin HCl (Glucophage) 1,000 mg BIDWMEALS PO 07/17/21 08:00 07/18/21 16:51 Nystatin (Mycostatin) 1 sulma PRN BID PRN TP RASH 07/16/21 22:45 Quetiapine Fumarate (SEROquel) 50 mg BID PO 07/17/21 09:00 07/18/21 10:56 DC 07/18/21 08:21 Trazodone HCl (Desyrel) 50 mg QHS PO 07/17/21 21:00 07/18/21 20:10 Non-Formulary Medication (Albuterol Sulfate (Albuterol Sulfate Neb Soln)) 1 vial QID PRN NEB SHORTNESS OF AIR 07/16/21 22:45 UNV Non-Formulary Medication (Insulin Aspart (Insulin Aspart Flexpen)) 100 unit PRN AFTMEALHC PRN SQ ELEVATED BLOOD SUGAR 07/16/21 22:45 UNV Acetaminophen (Tylenol) 650 mg PRN Q6HRS PRN PO MILD PAIN / TEMP > 100.3'F 07/16/21 22:45 07/18/21 16:50 Multi-Ingredient Ointment (Analgesic [place]) 1 sulma PRN QID PRN TP MUSCLE PAIN 07/16/21 22:45 Al Hydroxide/Mg Hydroxide (Mylanta Plus Xs) 15 ml PRN AFTMEALHC PRN PO DYSPEPSIA 07/16/21 22:45 Magnesium Hydroxide (Milk Of Magnesia) 2,400 mg PRN QHS PRN PO CONSTIPATION 07/16/21 22:45 Albuterol Sulfate (Ventolin) 2.5 mg PRN Q6HRS PRN NEB SHORTNESS OF BREATH 07/16/21 23:00 07/17/21 06:25 DC Insulin Human Lispro (HumaLOG) 0-5 UNITS TIDWMEALS SQ 07/17/21 08:00 07/18/21 17:00 Dextrose (Dextrose 50%-Water Syringe) 12.5 gm PRN Q15MIN PRN IV SEE COMMENTS 07/17/21 00:15 Albuterol Sulfate (Ventolin Hfa Inhaler) 1 puff PRN Q6HRS PRN INH SHORTNESS OF BREATH 07/17/21 06:30 Risperidone (RisperDAL) 0.5 mg HS PO 07/18/21 21:00 07/18/21 20:10 Olanzapine (ZyPREXA ZYDIS) 2.5 mg PRN Q2HR PRN PO PSYCHOSIS 07/18/21 18:15 Current Medications Medications (Trade) Dose Ordered Sig/Richard Route PRN Reason Start Time Stop Time Status Last Admin Dose Admin Risperidone (RisperDAL) 0.5 mg HS PO 07/18/21 21:00 07/18/21 20:10 I have reviewed the current psychotropics carefully including drug interactions. Risk benefit ratio favors no change other than as noted in my dictated progress note. Diagnosis: Problems: (1) Impulse control disorder, unspecified (2) Anxiety disorder, unspecified (3) Dementia, vascular, with depression (4) Dementia, vascular, with delusions (5) Dementia in Alzheimer's disease with depression (6) Dementia in Alzheimer's disease with delusions (7) Dementia of the Alzheimer's type with early onset with behavioral distur bance (8) Major neurocognitive disorder SOO BAIRES MD Jul 18, 2021 21:08
--- NOTE | 2021-07-19 02:14 | NUR ---
Walter pt has mainly been in her room she yelled at times with cares then would calm odwn. She took meds whole without difficulty and was cooperative with assessment. She was not fully oriented, was able to give name, , and city at HS. She is assisting more with transfers tonight and has been sleeping tonight.
[2021-07-19 06:10] VITALS: BP 149/57
[2021-07-19] MEDS: INSULIN LISPRO 300 UNITS/3 ML VIAL. SQ SCH ×3 (07:22→17:00)
--- NOTE | 2021-07-19 07:33 | PDOC ---
Exam Note: Troy Note: This note is a late entry for 07/18/2021 covers elements not covered in my initial note. Subjective: The patient was reviewed at treatment team meeting individually in the morning on 07/18/2021 with Katherine Moreno, Eliza Muniz, and Stephani Curry (social professionals), Martina, activity therapy and Miriam RN, discussed and reviewed the chart. The patient slept 6 hours previous night. She has been confused, agitated, yelling out. Previous evening she was calling out for staff, seems to have sundowning, using profanities to a staff member, scratching, and pinching staff. Today, she is more compliant with medications, other than intermittent yelling. CT head is unremarkable. UA shows no growth. I met with her in her room. Information from niece indicates she has been much worse for a year. She had injury to her eye about a year ago and this is correlated with the worsening confusion. Again CT head is unremarkable. She had made poor choices in the last one year including paying winn for her house in [place], [place] and it is unclear who she knew there. At one point she was found in her home, littered with trash and feces. At one point she was also living in cars. She remains psychotic with intermittent hallucinations per nursing observations and talking to people when no one is there. Review of Systems: Ambulation impaired in wheelchair. No CV, , pulmonary, eye, ENT system symptoms on review. Reliability poor. Mental Status Exam: The patient is oriented to herself. Insight and judgment, recent and remote memory, attention and concentration, fund of knowledge is poor consistent with her diagnosis. Laboratory Data: Reviewed. Impression: Major neurocognitive disorder Alzheimer, vascular, with delusions, depression, behavioral disturbance. Anxiety disorder unspecified. Impulse control disorder unspecified. Plan: Continue current psychotropics but change the Seroquel 50 mg b.i.d. to Risperdal 0.5 mg h.s. for her psychotic symptoms. Check mini-mental status exam and BIMS. Adjust psychotropics further as clinically indicated. Assessment: Vital Signs/I&O: Vital Signs Date Time Temp Pulse Resp B/P (MAP) Pulse Ox O2 Delivery O2 Flow Rate FiO2 07/19/21 06:10 97.8 84 22 149/57 (87) 95 Room Air I & O 11/11/21 11/11/21 11/12/21 15:00 23:00 07:00 Intake Total 507 ml 120 ml Balance 507 ml 120 ml Labs: Laboratory Tests Test 07/18/21 07:59 07/18/21 11:57 07/18/21 16:57 07/18/21 19:07 Glucose (Fingerstick) 156 mg/dL (70-99) H 156 mg/dL (70-99) H 153 mg/dL (70-99) H 168 mg/dL (70-99) H Test 07/19/21 07:17 Glucose (Fingerstick) 135 mg/dL (70-99) H Current Medications: Meds: Laboratory Tests Test 07/18/21 07:59 07/18/21 11:57 07/18/21 16:57 07/18/21 19:07 Glucose (Fingerstick) 156 mg/dL 156 mg/dL 153 mg/dL 168 mg/dL Test 07/19/21 07:17 Glucose (Fingerstick) 135 mg/dL Current Medications Medications (Trade) Dose Ordered Sig/Richard Route PRN Reason Start Time Stop Time Status Last Admin Dose Admin Influenza Virus Vaccine Quadrival (Flulaval Quad [id number] Syringe) 0.5 ml ONCE ONCE VAX IM 07/17/21 09:00 07/17/21 09:01 DC 07/17/21 10:00 Acetaminophen (Tylenol) 650 mg PRN Q6HRS PRN PO PAIN/FEVER 07/16/21 22:45 UNV Metformin HCl (Glucophage) 1,000 mg BIDWMEALS PO 07/17/21 08:00 07/18/21 16:51 Nystatin (Mycostatin) 1 sulma PRN BID PRN TP RASH 07/16/21 22:45 Quetiapine Fumarate (SEROquel) 50 mg BID PO 07/17/21 09:00 07/18/21 10:56 DC 07/18/21 08:21 Trazodone HCl (Desyrel) 50 mg QHS PO 07/17/21 21:00 07/18/21 20:10 Non-Formulary Medication (Albuterol Sulfate (Albuterol Sulfate Neb Soln)) 1 vial QID PRN NEB SHORTNESS OF AIR 07/16/21 22:45 UNV Non-Formulary Medication (Insulin Aspart (Insulin Aspart Flexpen)) 100 unit PRN AFTMEALHC PRN SQ ELEVATED BLOOD SUGAR 07/16/21 22:45 UNV Acetaminophen (Tylenol) 650 mg PRN Q6HRS PRN PO MILD PAIN / TEMP > 100.3'F 07/16/21 22:45 07/18/21 16:50 Multi-Ingredient Ointment (Analgesic [place]) 1 sulma PRN QID PRN TP MUSCLE PAIN 07/16/21 22:45 Al Hydroxide/Mg Hydroxide (Mylanta Plus Xs) 15 ml PRN AFTMEALHC PRN PO DYSPEPSIA 07/16/21 22:45 Magnesium Hydroxide (Milk Of Magnesia) 2,400 mg PRN QHS PRN PO CONSTIPATION 07/16/21 22:45 Albuterol Sulfate (Ventolin) 2.5 mg PRN Q6HRS PRN NEB SHORTNESS OF BREATH 07/16/21 23:00 07/17/21 06:25 DC Insulin Human Lispro (HumaLOG) 0-5 UNITS TIDWMEALS SQ 07/17/21 08:00 07/18/21 17:00 Dextrose (Dextrose 50%-Water Syringe) 12.5 gm PRN Q15MIN PRN IV SEE COMMENTS 07/17/21 00:15 Albuterol Sulfate (Ventolin Hfa Inhaler) 1 puff PRN Q6HRS PRN INH SHORTNESS OF BREATH 07/17/21 06:30 Risperidone (RisperDAL) 0.5 mg HS PO 07/18/21 21:00 07/18/21 20:10 Olanzapine (ZyPREXA ZYDIS) 2.5 mg PRN Q2HR PRN PO PSYCHOSIS 07/18/21 18:15 Current Medications Medications (Trade) Dose Ordered Sig/Richard Route PRN Reason Start Time Stop Time Status Last Admin Dose Admin Risperidone (RisperDAL) 0.5 mg HS PO 07/18/21 21:00 07/18/21 20:10 I have reviewed the current psychotropics carefully including drug interactions. Risk benefit ratio favors no change other than as noted in my dictated progress note. Diagnosis: Problems: (1) Impulse control disorder, unspecified (2) Anxiety disorder, unspecified (3) Dementia, vascular, with depression (4) Dementia, vascular, with delusions (5) Dementia in Alzheimer's disease with depression (6) Dementia in Alzheimer's disease with delusions (7) Dementia of the Alzheimer's type with early onset with behavioral disturbance (8) Major neurocognitive disorder SOO BAIRES MD Jul 19, 2021 07:33
[2021-07-19] MEDS: metFORMIN 500 MG TABLET PO SCH ×2 (08:18→17:24)
--- NOTE | 2021-07-19 08:41 | NUR ---
Pt A&O to name and , appropriate with her interactions with others. So far absent of disruptive behaviors, absent of verbal or physical aggression. Pt is disorganized and delusional; asking this nurse if I saw where "rachel" went. I informed her that I have not seen an individual who goes by that name. She is compliant with whole medications. Plan of care continues, will pass to next shift.
--- NOTE | 2021-07-19 09:21 | NUR ---
This nurse received a call from the [facility] Dept inquiring as to if Mary Lou is a patient at [facility]. says that a missing person complaint was filed by pt's sister. Sister told [facility] Dept that DPOA knows where pt is but will not tell family. Per , DPOA would not disclose fully to Dept where pt is but advised Dept to call [facility]. states, "If I don't get confirmation that Mary Lou is here I will have to go forward with filing a missing person report." Kevin TANG spoke with CHANA Styles, who was currently on phone with [facility], and staff received verbal consent to inform of pt's admission to [facility]. Sodium Methylate Operator informed by this nurse and call ended.
--- NOTE | 2021-07-19 09:39 | NUR ---
CHANA received a call this am from pt DPАнна MORALES, who informed CHANA that [facility] Dept might be calling to confirm that pt is at [facility] as another pt family member was attempting to file a missing person report. While CHANA was on the phone with Анна, CHANA was contacted by [facility] nursing staff that 's dept was on the phone trying to confirm pt inpatient status. Анна provided verbal permission to confirm with the 's dept that pt was admitted to this hospital. Анна reports that pt family likes to cause a lot of problems and turmoil and therefore Анна does not want any other family members contacting pt nor does she want pt making any contact with them. Анна also reports that in the past she had discussed with the pt, when she was clear from psychosis, if she would ever want Анна to discuss any of her hospitalizations with family members and pt told Анна that she did not want her to discuss her medical issues with other family members. Therefore, Анна is trying to obey pt wishes.
--- NOTE | 2021-07-19 12:28 | NUR ---
CHANA contacted pt facility and spoke with Judy as Nancy is out of the office today. CHANA provided update to Judy who stated that she would forward the update to Nancy. Judy appreciative of update and reported to CHANA that pt great niece, Анна, came to facility and took pt belongings. Judy stated that she was under the understanding that pt would be returning to their facility. Judy planned to address this with Nancy on Thursday07/22/21. CHANA reported to Judy that she had spoken with Анна this am and Анна did not indicate any alternative living arrangements. CHANA stated that she too would attempt to call Анна back to confirm that pt would return to [facility] at time of discharge is this is what CHANA and Анна spoke about during the psychosocial assessment. After call with Judy this CHANA attempted outreach to Анна X3 and call goes directly voicemail. CHANA will follow up again next week with Анна to confirm discharge destination. CHANA will also follow up with Nancy at [facility].
[2021-07-19 16:13] VITALS: BP 160/84
[2021-07-19] MEDS: traZODone 50 MG TABLET. PO SCH (21:11)
[2021-07-19] MEDS: risperiDONE 0.5 MG TABLET. PO SCH (21:11)
--- NOTE | 2021-07-19 21:13 | PDOC ---
Exam Note: Troy Note: Please also refer to the separate dictated note~for this date of service dictated separately.~Patient seen individually. Discussed the patient with Nursing staff reviewed the chart.~Reviewed interim history and current functioning. Reviewed vital signs,~Labs/ Radiology~and current medications noted below. Continue current treatment with the changes noted in the dictated addendum note Assessment: Vital Signs/I&O: Vital Signs Date Time Temp Pulse Resp B/P (MAP) Pulse Ox O2 Delivery O2 Flow Rate FiO2 07/19/21 16:13 97.3 87 20 160/84 (109) 97 07/19/21 06:10 Room Air I & O 07/18/21 07/18/21 07/19/21 15:00 23:00 07:00 Intake Total 507 ml 120 ml Balance 507 ml 120 ml Labs: Laboratory Tests Test 07/19/21 07:17 07/19/21 11:18 07/19/21 16:20 07/19/21 19:32 Glucose (Fingerstick) 135 mg/dL (70-99) H 170 mg/dL (70-99) H 115 mg/dL (70-99) H 88 mg/dL (70-99) Current Medications: Meds: Laboratory Tests Test 07/19/21 07:17 07/19/21 11:18 07/19/21 16:20 07/19/21 19:32 Glucose (Fingerstick) 135 mg/dL 170 mg/dL 115 mg/dL 88 mg/dL Current Medications Medications (Trade) Dose Ordered Sig/Richard Route PRN Reason Start Time Stop Time Status Last Admin Dose Admin Influenza Virus Vaccine Quadrival (Flulaval Quad Syringe) 0.5 ml ONCE ONCE VAX IM 07/17/21 09:00 07/17/21 09:01 DC 07/17/21 10:00 Acetaminophen (Tylenol) 650 mg PRN Q6HRS PRN PO PAIN/FEVER 07/16/21 22:45 UNV Metformin HCl (Glucophage) 1,000 mg BIDWMEALS PO 07/17/21 08:00 07/19/21 17:24 Nystatin (Mycostatin) 1 sulma PRN BID PRN TP RASH 07/16/21 22:45 Quetiapine Fumarate (SEROquel) 50 mg BID PO 07/17/21 09:00 07/18/21 10:56 DC 07/18/21 08:21 Trazodone HCl (Desyrel) 50 mg QHS PO 07/17/21 21:00 07/18/21 20:10 Non-Formulary Medication (Albuterol Sulfate (Albuterol Sulfate Neb Soln)) 1 vial QID PRN NEB SHORTNESS OF AIR 07/16/21 22:45 UNV Non-Formulary Medication (Insulin Aspart (Insulin Aspart Flexpen)) 100 unit PRN AFTMEALHC PRN SQ ELEVATED BLOOD SUGAR 07/16/21 22:45 UNV Acetaminophen (Tylenol) 650 mg PRN Q6HRS PRN PO MILD PAIN / TEMP > 100.3'F 07/16/21 22:45 07/18/21 16:50 Multi-Ingredient Ointment (Analgesic [place]) 1 sulma PRN QID PRN TP MUSCLE PAIN 07/16/21 22:45 Al Hydroxide/Mg Hydroxide (Mylanta Plus Xs) 15 ml PRN AFTMEALHC PRN PO DYSPEPSIA 07/16/21 22:45 Magnesium Hydroxide (Milk Of Magnesia) 2,400 mg PRN QHS PRN PO CONSTIPATION 07/16/21 22:45 Albuterol Sulfate (Ventolin) 2.5 mg PRN Q6HRS PRN NEB SHORTNESS OF BREATH 07/16/21 23:00 07/17/21 06:25 DC Insulin Human Lispro (HumaLOG) 0-5 UNITS TIDWMEALS SQ 07/17/21 08:00 07/19/21 12:25 Dextrose (Dextrose 50%-Water Syringe) 12.5 gm PRN Q15MIN PRN IV SEE COMMENTS 07/17/21 00:15 Albuterol Sulfate (Ventolin Hfa Inhaler) 1 puff PRN Q6HRS PRN INH SHORTNESS OF BREATH 07/17/21 06:30 Risperidone (RisperDAL) 0.5 mg HS PO 07/18/21 21:00 07/18/21 20:10 Olanzapine (ZyPREXA ZYDIS) 2.5 mg PRN Q2HR PRN PO PSYCHOSIS 07/18/21 18:15 I have reviewed the current psychotropics carefully including drug interactions. Risk benefit ratio favors no change other than as noted in my dictated progress note. Diagnosis: Problems: (1) Impulse control disorder, unspecified (2) Anxiety disorder, unspecified (3) Dementia, vascular, with depression (4) Dementia, vascular, with delusions (5) Dementia in Alzheimer's disease with depression (6) Dementia in Alzheimer's disease with delusions (7) Dementia of the Alzheimer's type with early onset with behavioral disturbance (8) Major neurocognitive disorder SOO BAIRES MD Jul 19, 2021 21:13
--- NOTE | 2021-07-20 00:54 | NUR ---
Last evening pt sat in a chair in her room and was hyperverbal conversing with self. She was pleasant and social with staff and cooperative with meds. She wanted her locked closets opened because her fathers belongings are in there. At bedtime she was assisted to bed with minimal effort.
[2021-07-20 06:06] VITALS: BP 108/64
[2021-07-20] MEDS: metFORMIN 500 MG TABLET PO SCH ×2 (08:00→16:30)
[2021-07-20] MEDS: INSULIN LISPRO 300 UNITS/3 ML VIAL. SQ SCH ×3 (08:00→17:00)
--- NOTE | 2021-07-20 09:45 | NUR ---
Pt disorganized, confused, and delusional this morning. She speaks about a "grandmother" or "grandfather" being here. She is repetitive, intermittently yelling out that she wants to go home and is not very receptive to explanation that she is staying with [facility] a little bit longer. Her loud and disruptive behaviors are elevating the anxiety of the patient in the room next to hers. She is compliant with whole medications. Absent of SI/HI behaviors, absent of verbal/physical aggression. Plan of care continues, will pass to next shift.
[2021-07-20 15:33] VITALS: BP 130/72
--- NOTE | 2021-07-20 16:40 | NUR ---
Pt discovered in her room with her shirt half way off and crying out "oh God, oh God, I'm so cold! I'm so cold!" And trying to cover herself up with a bed sheet. This nurse asked why she would be taking her shirt off if she felt cold and she was unable to explain. Pt assisted with dressing and brought back out to the hallway to prepare for dinner.
[2021-07-20] MEDS: risperiDONE 0.5 MG TABLET. PO SCH (20:18)
[2021-07-20] MEDS: traZODone 50 MG TABLET. PO SCH (20:18)
--- NOTE | 2021-07-20 21:20 | PDOC ---
Exam Note: Troy Note: Please also refer to the separate dictated note~for this date of service dictated separately.~Patient seen individually. Discussed the patient with Nursing staff reviewed the chart.~Reviewed interim history and current functioning. Reviewed vital signs,~Labs/ Radiology~and current medications noted below. Continue current treatment with the changes noted in the dictated addendum note Assessment: Vital Signs/I&O: Vital Signs Date Time Temp Pulse Resp B/P (MAP) Pulse Ox O2 Delivery O2 Flow Rate FiO2 07/20/21 15:33 97.8 78 20 130/72 (91) 97 Room Air I & O 07/19/21 07/19/21 07/20/21 15:00 23:00 07:00 Intake Total 550 ml 560 ml Balance 550 ml 560 ml Labs: Laboratory Tests Test 07/20/21 07:12 07/20/21 11:13 07/20/21 16:43 07/20/21 19:12 Glucose (Fingerstick) 164 mg/dL (70-99) H 212 mg/dL (70-99) H 188 mg/dL (70-99) H 176 mg/dL (70-99) H Current Medications: Meds: Laboratory Tests Test 07/20/21 07:12 07/20/21 11:13 07/20/21 16:43 07/20/21 19:12 Glucose (Fingerstick) 164 mg/dL 212 mg/dL 188 mg/dL 176 mg/dL Current Medications Medications (Trade) Dose Ordered Sig/Richard Route PRN Reason Start Time Stop Time Status Last Admin Dose Admin Influenza Virus Vaccine Quadrival (Flulaval Quad [id number] Syringe) 0.5 ml ONCE ONCE VAX IM 07/17/21 09:00 07/17/21 09:01 DC 07/17/21 10:00 Acetaminophen (Tylenol) 650 mg PRN Q6HRS PRN PO PAIN/FEVER 07/16/21 22:45 UNV Metformin HCl (Glucophage) 1,000 mg BIDWMEALS PO 07/17/21 08:00 07/20/21 16:30 Nystatin (Mycostatin) 1 sulma PRN BID PRN TP RASH 07/16/21 22:45 Quetiapine Fumarate (SEROquel) 50 mg BID PO 07/17/21 09:00 07/18/21 10:56 DC 07/18/21 08:21 Trazodone HCl (Desyrel) 50 mg QHS PO 07/17/21 21:00 07/20/21 20:18 Non-Formulary Medication (Albuterol Sulfate (Albuterol Sulfate Neb Soln)) 1 vial QID PRN NEB SHORTNESS OF AIR 07/16/21 22:45 UNV Non-Formulary Medication (Insulin Aspart (Insulin Aspart Flexpen)) 100 unit PRN AFTMEALHC PRN SQ ELEVATED BLOOD SUGAR 07/16/21 22:45 UNV Acetaminophen (Tylenol) 650 mg PRN Q6HRS PRN PO MILD PAIN / TEMP > 100.3'F 07/16/21 22:45 07/18/21 16:50 Multi-Ingredient Ointment (Analgesic [place]) 1 sulma PRN QID PRN TP MUSCLE PAIN 07/16/21 22:45 Al Hydroxide/Mg Hydroxide (Mylanta Plus Xs) 15 ml PRN AFTMEALHC PRN PO DYSPEPSIA 07/16/21 22:45 Magnesium Hydroxide (Milk Of Magnesia) 2,400 mg PRN QHS PRN PO CONSTIPATION 07/16/21 22:45 Albuterol Sulfate (Ventolin) 2.5 mg PRN Q6HRS PRN NEB SHORTNESS OF BREATH 07/16/21 23:00 07/17/21 06:25 DC Insulin Human Lispro (HumaLOG) 0-5 UNITS TIDWMEALS SQ 07/17/21 08:00 07/20/21 17:00 Dextrose (Dextrose 50%-Water Syringe) 12.5 gm PRN Q15MIN PRN IV SEE COMMENTS 07/17/21 00:15 Albuterol Sulfate (Ventolin Hfa Inhaler) 1 puff PRN Q6HRS PRN INH SHORTNESS OF BREATH 07/17/21 06:30 Risperidone (RisperDAL) 0.5 mg HS PO 07/18/21 21:00 07/20/21 20:18 Olanzapine (ZyPREXA ZYDIS) 2.5 mg PRN Q2HR PRN PO PSYCHOSIS 07/18/21 18:15 I have reviewed the current psychotropics carefully including drug interactions. Risk benefit ratio favors no change other than as noted in my dictated progress note. Diagnosis: Problems: (1) Impulse control disorder, unspecified (2) Anxiety disorder, unspecified (3) Dementia, vascular, with depression (4) Dementia, vascular, with delusions (5) Dementia in Alzheimer's disease with depression (6) Dementia in Alzheimer's disease with delusions (7) Dementia of the Alzheimer's type with early onset with behavioral disturbance (8) Major neurocognitive disorder SOO BAIRES MD Jul 20, 2021 21:20
--- NOTE | 2021-07-20 23:58 | NUR ---
Pt located in the hallway this evening. Pt A/O to name, . Pt hyperverbal, rambling and tangental. Compliant with whole medications. Pt delusional throughout the evening. Pt made statements such as "the colored folk were running up and down the hallway." Pt also stated that her mother was yelling in the other room. Once placed in bed, pt extremely restless and continued to be delusional. PRN Zyprexa administered. Pt stated that "God is telling me to do this." Pt placed in wheelchair and is currently sitting in the hallway facing the [facility]. Pt stated "God is going to get you too." Will continue to monitor.
--- NOTE | 2021-07-21 01:49 | NUR ---
Pt continues to be in the hallway by the [facility]. Pt repeatedly yelling at the top of her lungs "Oh my God!" Pt unable to verbalize why she is yelling that phrase. It appears as if pt may be having visual hallucinations. Redirection unsuccessful. PRN Zyprexa administered.
[2021-07-21 06:09] VITALS: BP 99/62
--- NOTE | 2021-07-21 07:26 | PDOC ---
Exam Note: Troy Note: This note is a late entry for 07/19/2021 covers elements not covered in my initial note. Subjective: The patient was seen individually in the evening of 07/19/2021 with Nikia TANG, discussed and reviewed the chart. The patient slept 4 hours previous night. She remains quite confused, anxious, labile, putting herself on the floor, repetitive in her speech. Associations are loose per nursing staff, yelling, demanding previous night, more pleasant during the day on 07/19. I met with her in her room. Review of Systems: Ambulation impaired in wheelchair though she often uses the walker. No CV, , pulmonary, eye, ENT system symptoms on review. Mental Status Exam: The patient is oriented to herself. Insight and judgment, recent and remote memory, attention and concentration, fund of knowledge is poor consistent with her diagnosis. Laboratory Data: Reviewed. Impression: Major neurocognitive disorder Alzheimer, vascular, with delusions, depression, behavioral disturbance. Anxiety disorder unspecified. Impulse control disorder unspecified. Plan: Continue current psychotropics unchanged. Assessment: Vital Signs/I&O: Vital Signs Date Time Temp Pulse Resp B/P (MAP) Pulse Ox O2 Delivery O2 Flow Rate FiO2 07/21/21 06:09 98.3 91 20 99/62 (74) 96 Room Air I & O 07/20/21 07/20/21 07/21/21 15:00 23:00 07:00 Intake Total 840 ml 340 ml Balance 840 ml 340 ml Labs: Laboratory Tests Test 07/20/21 11:13 07/20/21 16:43 07/20/21 19:12 Glucose (Fingerstick) 212 mg/dL (70-99) H 188 mg/dL (70-99) H 176 mg/dL (70-99) H Current Medications: Meds: Laboratory Tests Test 07/20/21 11:13 07/20/21 16:43 07/20/21 19:12 Glucose (Fingerstick) 212 mg/dL 188 mg/dL 176 mg/dL Current Medications Medications (Trade) Dose Ordered Sig/Richard Route PRN Reason Start Time Stop Time Status Last Admin Dose Admin Influenza Virus Vaccine Quadrival (Flulaval Quad Syringe) 0.5 ml ONCE ONCE VAX IM 07/17/21 09:00 07/17/21 09:01 DC 07/17/21 10:00 Acetaminophen (Tylenol) 650 mg PRN Q6HRS PRN PO PAIN/FEVER 07/16/21 22:45 UNV Metformin HCl (Glucophage) 1,000 mg BIDWMEALS PO 07/17/21 08:00 07/20/21 16:30 Nystatin (Mycostatin) 1 sulma PRN BID PRN TP RASH 07/16/21 22:45 Quetiapine Fumarate (SEROquel) 50 mg BID PO 07/17/21 09:00 07/18/21 10:56 DC 07/18/21 08:21 Trazodone HCl (Desyrel) 50 mg QHS PO 07/17/21 21:00 07/20/21 20:18 Non-Formulary Medication (Albuterol Sulfate (Albuterol Sulfate Neb Soln)) 1 vial QID PRN NEB SHORTNESS OF AIR 07/16/21 22:45 UNV Non-Formulary Medication (Insulin Aspart (Insulin Aspart Flexpen)) 100 unit PRN AFTMEALHC PRN SQ ELEVATED BLOOD SUGAR 07/16/21 22:45 UNV Acetaminophen (Tylenol) 650 mg PRN Q6HRS PRN PO MILD PAIN / TEMP > 100.3'F 07/16/21 22:45 07/18/21 16:50 Multi-Ingredient Ointment (Analgesic [place]) 1 sulma PRN QID PRN TP MUSCLE PAIN 07/16/21 22:45 Al Hydroxide/Mg Hydroxide (Mylanta Plus Xs) 15 ml PRN AFTMEALHC PRN PO DYSPEPSIA 07/16/21 22:45 Magnesium Hydroxide (Milk Of Magnesia) 2,400 mg PRN QHS PRN PO CONSTIPATION 07/16/21 22:45 Albuterol Sulfate (Ventolin) 2.5 mg PRN Q6HRS PRN NEB SHORTNESS OF BREATH 07/16/21 23:00 07/17/21 06:25 DC Insulin Human Lispro (HumaLOG) 0-5 UNITS TIDWMEALS SQ 07/17/21 08:00 07/20/21 17:00 Dextrose (Dextrose 50%-Water Syringe) 12.5 gm PRN Q15MIN PRN IV SEE COMMENTS 07/17/21 00:15 Albuterol Sulfate (Ventolin Hfa Inhaler) 1 puff PRN Q6HRS PRN INH SHORTNESS OF BREATH 07/17/21 06:30 Risperidone (RisperDAL) 0.5 mg HS PO 07/18/21 21:00 07/20/21 20:18 Olanzapine (ZyPREXA ZYDIS) 2.5 mg PRN Q2HR PRN PO PSYCHOSIS 07/18/21 18:15 07/21/21 01:48 Divalproex Sodium (Depakote Sprinkles) 125 mg BID@0900,1700 PO 07/21/21 09:00 I have reviewed the current psychotropics carefully including drug interactions. Risk benefit ratio favors no change other than as noted in my dictated progress note. Diagnosis: Problems: (1) Impulse control disorder, unspecified (2) Anxiety disorder, unspecified (3) Dementia, vascular, with depression (4) Dementia, vascular, with delusions (5) Dementia in Alzheimer's disease with depression (6) Dementia in Alzheimer's disease with delusions (7) Dementia of the Alzheimer's type with early onset with behavioral disturbance (8) Major neurocognitive disorder SOO BAIRES MD Jul 21, 2021 07:26
[2021-07-21] MEDS: INSULIN LISPRO 300 UNITS/3 ML VIAL. SQ SCH ×3 (08:42→17:00)
[2021-07-21] MEDS: DIVALPROEX 125 MG CAP.SPRINK PO SCH ×2 (08:43→17:01)
[2021-07-21] MEDS: metFORMIN 500 MG TABLET PO SCH ×2 (08:43→17:01)
--- NOTE | 2021-07-21 11:38 | NUR ---
RN Day Shift Note: Pt presents with an excitable mood/affect. Pt was approached by staff after getting out of the shower, pt was hyperverbal, emotionally distressed and reported that she did not like being given a shower. Pt was medication compliant. Pt was noted to calm down and rest in the hallway later. Pt ate 100% of her breakfast. Pt slept 0.5 hours last night. Will continue to monitor.
[2021-07-21 16:21] VITALS: BP 128/60
[2021-07-21] MEDS: risperiDONE 1 MG TABLET. PO SCH (20:05)
[2021-07-21] MEDS: traZODone 50 MG TABLET. PO SCH (20:05)
[2021-07-21] MEDS ORDERED: MIRTAZAPINE 7.5 MG TABLET. PO SCH (21:00)
--- NOTE | 2021-07-21 21:06 | PDOC ---
Exam Note: [place] Note: Please also refer to the separate dictated note~for this date of service dictated separately.~Patient seen individually. Discussed the patient with Nursing staff reviewed the chart.~Reviewed interim history and current functioning. Reviewed vital signs,~Labs/ Radiology~and current medications noted below. Continue current treatment with the changes noted in the dictated addendum note Assessment: Vital Signs/I&O: Vital Signs Date Time Temp Pulse Resp B/P (MAP) Pulse Ox O2 Delivery O2 Flow Rate FiO2 07/21/21 16:21 97.6 86 18 128/60 (82) 99 Room Air I & O 07/20/21 07/20/21 07/21/21 15:00 23:00 07:00 Intake Total 840 ml 340 ml Balance 840 ml 340 ml Labs: Laboratory Tests Test 07/21/21 07:41 07/21/21 11:30 07/21/21 16:21 07/21/21 19:02 Glucose (Fingerstick) 191 mg/dL (70-99) H 231 mg/dL (70-99) H 131 mg/dL (70-99) H 165 mg/dL (70-99) H Current Medications: Meds: Laboratory Tests Test 07/21/21 07:41 07/21/21 11:30 07/21/21 16:21 07/21/21 19:02 Glucose (Fingerstick) 191 mg/dL 231 mg/dL 131 mg/dL 165 mg/dL Current Medications Medications (Trade) Dose Ordered Sig/Richard Route PRN Reason Start Time Stop Time Status Last Admin Dose Admin Influenza Virus Vaccine Quadrival (Flulaval Quad 6092-5209 Syringe) 0.5 ml ONCE ONCE VAX IM 07/17/21 09:00 07/17/21 09:01 DC 07/17/21 10:00 Acetaminophen (Tylenol) 650 mg PRN Q6HRS PRN PO PAIN/FEVER 07/16/21 22:45 UNV Metformin HCl (Glucophage) 1,000 mg BIDWMEALS PO 07/17/21 08:00 07/21/21 17:01 Nystatin (Mycostatin) 1 sulma PRN BID PRN TP RASH 07/16/21 22:45 Quetiapine Fumarate (SEROquel) 50 mg BID PO 07/17/21 09:00 07/18/21 10:56 DC 07/18/21 08:21 Trazodone HCl (Desyrel) 50 mg QHS PO 07/17/21 21:00 07/21/21 20:05 Non-Formulary Medication (Albuterol Sulfate (Albuterol Sulfate Neb Soln)) 1 vial QID PRN NEB SHORTNESS OF AIR 07/16/21 22:45 UNV Non-Formulary Medication (Insulin Aspart (Insulin Aspart Flexpen)) 100 unit PRN AFTMEALHC PRN SQ ELEVATED BLOOD SUGAR 07/16/21 22:45 UNV Acetaminophen (Tylenol) 650 mg PRN Q6HRS PRN PO MILD PAIN / TEMP > 100.3'F 07/16/21 22:45 07/18/21 16:50 Multi-Ingredient Ointment (Analgesic [place]) 1 sulma PRN QID PRN TP MUSCLE PAIN 07/16/21 22:45 Al Hydroxide/Mg Hydroxide (Mylanta Plus Xs) 15 ml PRN AFTMEALHC PRN PO DYSPEPSIA 07/16/21 22:45 Magnesium Hydroxide (Milk Of Magnesia) 2,400 mg PRN QHS PRN PO CONSTIPATION 07/16/21 22:45 Albuterol Sulfate (Ventolin) 2.5 mg PRN Q6HRS PRN NEB SHORTNESS OF BREATH 07/16/21 23:00 07/17/21 06:25 DC Insulin Human Lispro (HumaLOG) 0-5 UNITS TIDWMEALS SQ 07/17/21 08:00 07/21/21 12:11 Dextrose (Dextrose 50%-Water Syringe) 12.5 gm PRN Q15MIN PRN IV SEE COMMENTS 07/17/21 00:15 Albuterol Sulfate (Ventolin Hfa Inhaler) 1 puff PRN Q6HRS PRN INH SHORTNESS OF BREATH 07/17/21 06:30 Risperidone (RisperDAL) 0.5 mg HS PO 07/18/21 21:00 07/21/21 19:40 DC 07/20/21 20:18 Olanzapine (ZyPREXA ZYDIS) 2.5 mg PRN Q2HR PRN PO PSYCHOSIS 07/18/21 18:15 07/21/21 20:04 Divalproex Sodium (Depakote Sprinkles) 125 mg BID@0900,1700 PO 07/21/21 09:00 07/21/21 17:01 Risperidone (RisperDAL) 1 mg HS PO 07/21/21 21:00 07/21/21 20:05 Trazodone HCl (Desyrel) 50 mg PRN QHS PRN PO INSOMNIA 07/21/21 19:45 Mirtazapine (Remeron) 7.5 mg QHS PO 07/21/21 21:00 07/21/21 20:04 Current Medications Medications (Trade) Dose Ordered Sig/Richard Route PRN Reason Start Time Stop Time Status Last Admin Dose Admin Divalproex Sodium (Depakote Sprinkles) 125 mg BID@0900,1700 PO 07/21/21 09:00 07/21/21 17:01 Risperidone (RisperDAL) 1 mg HS PO 07/21/21 21:00 07/21/21 20:05 Mirtazapine (Remeron) 7.5 mg QHS PO 07/21/21 21:00 07/21/21 20:04 I have reviewed the current psychotropics carefully including drug interactions. Risk benefit ratio favors no change other than as noted in my dictated progress note. Diagnosis: Problems: (1) Impulse control disorder, unspecified (2) Anxiety disorder, unspecified (3) Dementia, vascular, with depression (4) Dementia, vascular, with delusions (5) Dementia in Alzheimer's disease with depression (6) Dementia in Alzheimer's disease with delusions (7) Dementia of the Alzheimer's type with early onset with behavioral disturbance (8) Major neurocognitive disorder SOO BAIRES MD Jul 21, 2021 21:06
--- NOTE | 2021-07-21 22:24 | NUR ---
Pt located in hallway this evening. Pt continues to be hyperverbal, restless and attention seeking. Compliant with whole medications. PRNs administered with HS medications. Pt currently awake in her room.
[2021-07-21] MEDS: traZODone 50 MG TABLET. PO PRN (22:35)
[2021-07-22 05:47] VITALS: BP 105/61
[2021-07-22] MEDS: DIVALPROEX 125 MG CAP.SPRINK PO SCH ×2 (08:21→17:09)
[2021-07-22] MEDS: metFORMIN 500 MG TABLET PO SCH ×2 (08:21→17:09)
[2021-07-22] MEDS: INSULIN LISPRO 300 UNITS/3 ML VIAL. SQ SCH ×3 (08:27→17:10)
--- NOTE | 2021-07-22 13:49 | NUR ---
CHANA spoke with pt DPOA, Анна, to provide update. CHANA reported that pt is not on Seroquel any longer but that Depaokte Sprinkles have been added. CHANA explained that with Depakote Sprinkles there will most likely be lab work completed in a few days to determine therapeutic level. CHANA reported to Анна that pt has been compliant with taking her medications and has not been aggressive, but she has continued to be hyper verbal, delusional, disorganized, and confused. Анна stated that she is not surprised that pt is being considered for having a dementia diagnosis. Анна did state that she plans to try to find alternative placement for pt, but if nothing can be found, she understands that pt will return to [place].
[2021-07-22 15:30] VITALS: BP 113/53
[2021-07-22] MEDS: traZODone 50 MG TABLET. PO SCH (20:19)
[2021-07-22] MEDS: risperiDONE 1 MG TABLET. PO SCH (20:19)
[2021-07-22] MEDS: MIRTAZAPINE 15 MG TABLET PO SCH (20:21)
[2021-07-22] MEDS ORDERED: MELATONIN 3 MG TABLET PO SCH (21:00)
--- NOTE | 2021-07-22 22:02 | PDOC ---
Exam Note: [place] Note: This note is a late entry for 07/20/2021 covers elements not covered in my initial note. Subjective: The patient was seen individually in the evening of 07/20/2021 with Nahomi TANG, discussed and reviewed the chart. The patient slept 2 hours previous night. She has been yelling out repeatedly, loud, disruptive. She is alert and oriented to herself, talks to herself, hyperverbal at times, ripping off her shirt and then telling the nursing staff she was cold, appears somewhat grandiose with marked mood lability. Review of Systems: Impaired ambulation in wheelchair. No CV, , pulmonary, eye, ENT system symptoms on review. Reliability poor. Mental Status Exam: The patient is oriented to herself. Insight and judgment, recent and remote memory, attention and concentration, fund of knowledge is poor consistent with her diagnosis. Laboratory Data: Reviewed. Impression: Major neurocognitive disorder Alzheimer, vascular, with delusions, depression, behavioral disturbance. Anxiety disorder unspecified. Impulse control disorder unspecified. Plan: We will go ahead and start her on Depakote Sprinkle 125 mg 9 a.m. and 5 p.m. Check CBC, CMP, valproic acid level in 3 days given her manic symptoms, hyperverbal, questionable bipolar symptoms. Rest psychotropics unchanged for now. Assessment: Vital Signs/I&O: Vital Signs Date Time Temp Pulse Resp B/P (MAP) Pulse Ox O2 Delivery O2 Flow Rate FiO2 07/22/21 15:30 98.7 80 20 113/53 (73) 94 07/21/21 16:21 Room Air I & O 07/21/21 07/21/21 07/22/21 15:00 23:00 07:00 Intake Total 240 ml 560 ml Balance 240 ml 560 ml Labs: Laboratory Tests Test 07/22/21 07:29 07/22/21 11:15 07/22/21 11:30 07/22/21 16:33 Glucose (Fingerstick) 153 mg/dL (70-99) H 131 mg/dL (70-99) H 189 mg/dL (70-99) H SARS-CoV-2 (PCR) Not detected (NOT DETECTD) Test 07/22/21 20:04 Glucose (Fingerstick) 126 mg/dL (70-99) H Current Medications: Meds: Laboratory Tests Test 07/22/21 07:29 07/22/21 11:15 07/22/21 11:30 07/22/21 16:33 Glucose (Fingerstick) 153 mg/dL 131 mg/dL 189 mg/dL Coronavirus (COVID-19)(PCR) Not detected Test 07/22/21 20:04 Glucose (Fingerstick) 126 mg/dL Current Medications Medications (Trade) Dose Ordered Sig/Richard Route PRN Reason Start Time Stop Time Status Last Admin Dose Admin Influenza Virus Vaccine Quadrival (Flulaval Quad Syringe) 0.5 ml ONCE ONCE VAX IM 07/17/21 09:00 07/17/21 09:01 DC 07/17/21 10:00 Acetaminophen (Tylenol) 650 mg PRN Q6HRS PRN PO PAIN/FEVER 07/16/21 22:45 UNV Metformin HCl (Glucophage) 1,000 mg BIDWMEALS PO 07/17/21 08:00 07/22/21 17:09 Nystatin (Mycostatin) 1 sulma PRN BID PRN TP RASH 07/16/21 22:45 Quetiapine Fumarate (SEROquel) 50 mg BID PO 07/17/21 09:00 07/18/21 10:56 DC 07/18/21 08:21 Trazodone HCl (Desyrel) 50 mg QHS PO 07/17/21 21:00 07/22/21 20:19 Non-Formulary Medication (Albuterol Sulfate (Albuterol Sulfate Neb Soln)) 1 vial QID PRN NEB SHORTNESS OF AIR 07/16/21 22:45 UNV Non-Formulary Medication (Insulin Aspart (Insulin Aspart Flexpen)) 100 unit PRN AFTMEALHC PRN SQ ELEVATED BLOOD SUGAR 07/16/21 22:45 UNV Acetaminophen (Tylenol) 650 mg PRN Q6HRS PRN PO MILD PAIN / TEMP > 100.3'F 07/16/21 22:45 07/18/21 16:50 Multi-Ingredient Ointment (Analgesic [place]) 1 sulma PRN QID PRN TP MUSCLE PAIN 07/16/21 22:45 Al Hydroxide/Mg Hydroxide (Mylanta Plus Xs) 15 ml PRN AFTMEALHC PRN PO DYSPEPSIA 07/16/21 22:45 Magnesium Hydroxide (Milk Of Magnesia) 2,400 mg PRN QHS PRN PO CONSTIPATION 07/16/21 22:45 Albuterol Sulfate (Ventolin) 2.5 mg PRN Q6HRS PRN NEB SHORTNESS OF BREATH 07/16/21 23:00 07/17/21 06:25 DC Insulin Human Lispro (HumaLOG) 0-5 UNITS TIDWMEALS SQ 07/17/21 08:00 07/22/21 17:10 Dextrose (Dextrose 50%-Water Syringe) 12.5 gm PRN Q15MIN PRN IV SEE COMMENTS 07/17/21 00:15 Albuterol Sulfate (Ventolin Hfa Inhaler) 1 puff PRN Q6HRS PRN INH SHORTNESS OF BREATH 07/17/21 06:30 Risperidone (RisperDAL) 0.5 mg HS PO 07/18/21 21:00 07/21/21 19:40 DC 07/20/21 20:18 Olanzapine (ZyPREXA ZYDIS) 2.5 mg PRN Q2HR PRN PO PSYCHOSIS 07/18/21 18:15 07/21/21 20:04 Divalproex Sodium (Depakote Sprinkles) 125 mg BID@0900,1700 PO 07/21/21 09:00 07/22/21 17:09 Risperidone (RisperDAL) 1 mg HS PO 07/21/21 21:00 07/22/21 20:19 Trazodone HCl (Desyrel) 50 mg PRN QHS PRN PO INSOMNIA 07/21/21 19:45 07/21/21 22:35 Mirtazapine (Remeron) 7.5 mg QHS PO 07/21/21 21:00 07/22/21 19:52 DC 07/21/21 20:04 Mirtazapine (Remeron) 15 mg QHS PO 07/22/21 21:00 07/22/21 20:21 Melatonin (Melatonin) 3 mg QHS PO 07/22/21 21:00 07/22/21 20:21 Current Medications Medications (Trade) Dose Ordered Sig/Richard Route PRN Reason Start Time Stop Time Status Last Admin Dose Admin Mirtazapine (Remeron) 15 mg QHS PO 07/22/21 21:00 07/22/21 20:21 Melatonin (Melatonin) 3 mg QHS PO 07/22/21 21:00 07/22/21 20:21 I have reviewed the current psychotropics carefully including drug interactions. Risk benefit ratio favors no change other than as noted in my dictated progress note. Diagnosis: Problems: (1) Impulse control disorder, unspecified (2) Anxiety disorder, unspecified (3) Dementia, vascular, with depression (4) Dementia, vascular, with delusions (5) Dementia in Alzheimer's disease with depression (6) Dementia in Alzheimer's disease with delusions (7) Dementia of the Alzheimer's type with early onset with behavioral disturbance (8) Major neurocognitive disorder SOO BAIRES MD Jul 22, 2021 22:02
--- NOTE | 2021-07-22 22:20 | NUR ---
Pt located in her room this evening. Pt appears to be hallucinating and is carrying on conversations with people that are not present. Pt continues to be hyperverbal, restless and anxious. Compliant with whole medications. Pt currently awake in room sitting in wheelchair.
--- NOTE | 2021-07-22 22:36 | PDOC ---
Exam Note: [place] Note: This note is a late entry for 07/21/2021 covers elements not covered in my initial note. Subjective: The patient was seen individually in the evening of 07/21/2021 with Nahomi TANG, discussed and reviewed the chart. The patient slept only 1/2 hour previous night. She has been confused, delusional, hallucinating. As I met with her she was seated in a wheelchair, trying to put the shirt on her backwards but would not accept my help or redirection on how to do it right. She remains hyperverbal, singing in the hallway, disrobing, restless. Review of Systems: Ambulation impaired in wheelchair. No CV, , pulmonary, eye, ENT system symptoms on review. Reliability poor. Mental Status Exam: The patient is oriented to herself. Insight and judgment, recent and remote memory, attention and concentration, fund of knowledge is poor consistent with her diagnosis. Laboratory Data: Reviewed. Impression: Major neurocognitive disorder Alzheimer, vascular, with delusions, depression, behavioral disturbance. Anxiety disorder unspecified. Impulse control disorder unspecified. Plan: She is on trazodone 50 mg h.s. We will add 50 mg h.s. p.r.n. insomnia in addition to this. Increase Risperdal from 0.5 mg h.s. to 1 mg h.s. Start Remeron 7.5 mg h.s. to help with insomnia. Maintain rest of the psychotropics unchanged. Follow labs level on the Depakote and adjust as clinically indicated. Assessment: Vital Signs/I&O: Vital Signs Date Time Temp Pulse Resp B/P (MAP) Pulse Ox O2 Delivery O2 Flow Rate FiO2 07/22/21 15:30 98.7 80 20 113/53 (73) 94 07/21/21 16:21 Room Air I & O 07/21/21 07/21/21 07/22/21 15:00 23:00 07:00 Intake Total 240 ml 560 ml Balance 240 ml 560 ml Labs: Laboratory Tests Test 07/22/21 07:29 07/22/21 11:15 07/22/21 11:30 07/22/21 16:33 Glucose (Fingerstick) 153 mg/dL (70-99) H 131 mg/dL (70-99) H 189 mg/dL (70-99) H SARS-CoV-2 (PCR) Not detected (NOT DETECTD) Test 07/22/21 20:04 Glucose (Fingerstick) 126 mg/dL (70-99) H Current Medications: Meds: Laboratory Tests Test 07/22/21 07:29 07/22/21 11:15 07/22/21 11:30 07/22/21 16:33 Glucose (Fingerstick) 153 mg/dL 131 mg/dL 189 mg/dL Coronavirus (COVID-19)(PCR) Not detected Test 07/22/21 20:04 Glucose (Fingerstick) 126 mg/dL Current Medications Medications (Trade) Dose Ordered Sig/Richard Route PRN Reason Start Time Stop Time Status Last Admin Dose Admin Influenza Virus Vaccine Quadrival (Flulaval Quad Syringe) 0.5 ml ONCE ONCE VAX IM 07/17/21 09:00 07/17/21 09:01 DC 07/17/21 10:00 Acetaminophen (Tylenol) 650 mg PRN Q6HRS PRN PO PAIN/FEVER 07/16/21 22:45 UNV Metformin HCl (Glucophage) 1,000 mg BIDWMEALS PO 07/17/21 08:00 07/22/21 17:09 Nystatin (Mycostatin) 1 sulma PRN BID PRN TP RASH 07/16/21 22:45 Quetiapine Fumarate (SEROquel) 50 mg BID PO 07/17/21 09:00 07/18/21 10:56 DC 07/18/21 08:21 Trazodone HCl (Desyrel) 50 mg QHS PO 07/17/21 21:00 07/22/21 20:19 Non-Formulary Medication (Albuterol Sulfate (Albuterol Sulfate Neb Soln)) 1 vial QID PRN NEB SHORTNESS OF AIR 07/16/21 22:45 UNV Non-Formulary Medication (Insulin Aspart (Insulin Aspart Flexpen)) 100 unit PRN AFTMEALHC PRN SQ ELEVATED BLOOD SUGAR 07/16/21 22:45 UNV Acetaminophen (Tylenol) 650 mg PRN Q6HRS PRN PO MILD PAIN / TEMP > 100.3'F 07/16/21 22:45 07/18/21 16:50 Multi-Ingredient Ointment (Analgesic [place]) 1 sulma PRN QID PRN TP MUSCLE PAIN 07/16/21 22:45 Al Hydroxide/Mg Hydroxide (Mylanta Plus Xs) 15 ml PRN AFTMEALHC PRN PO DYSPEPSIA 07/16/21 22:45 Magnesium Hydroxide (Milk Of Magnesia) 2,400 mg PRN QHS PRN PO CONSTIPATION 07/16/21 22:45 Albuterol Sulfate (Ventolin) 2.5 mg PRN Q6HRS PRN NEB SHORTNESS OF BREATH 07/16/21 23:00 07/17/21 06:25 DC Insulin Human Lispro (HumaLOG) 0-5 UNITS TIDWMEALS SQ 07/17/21 08:00 07/22/21 17:10 Dextrose (Dextrose 50%-Water Syringe) 12.5 gm PRN Q15MIN PRN IV SEE COMMENTS 07/17/21 00:15 Albuterol Sulfate (Ventolin Hfa Inhaler) 1 puff PRN Q6HRS PRN INH SHORTNESS OF BREATH 07/17/21 06:30 Risperidone (RisperDAL) 0.5 mg HS PO 07/18/21 21:00 07/21/21 19:40 DC 07/20/21 20:18 Olanzapine (ZyPREXA ZYDIS) 2.5 mg PRN Q2HR PRN PO PSYCHOSIS 07/18/21 18:15 07/21/21 20:04 Divalproex Sodium (Depakote Sprinkles) 125 mg BID@0900,1700 PO 07/21/21 09:00 07/22/21 17:09 Risperidone (RisperDAL) 1 mg HS PO 07/21/21 21:00 07/22/21 20:19 Trazodone HCl (Desyrel) 50 mg PRN QHS PRN PO INSOMNIA 07/21/21 19:45 07/21/21 22:35 Mirtazapine (Remeron) 7.5 mg QHS PO 07/21/21 21:00 07/22/21 19:52 DC 07/21/21 20:04 Mirtazapine (Remeron) 15 mg QHS PO 07/22/21 21:00 07/22/21 20:21 Melatonin (Melatonin) 3 mg QHS PO 07/22/21 21:00 07/22/21 20:21 Current Medications Medications (Trade) Dose Ordered Sig/Richard Route PRN Reason Start Time Stop Time Status Last Admin Dose Admin Mirtazapine (Remeron) 15 mg QHS PO 07/22/21 21:00 07/22/21 20:21 Melatonin (Melatonin) 3 mg QHS PO 07/22/21 21:00 07/22/21 20:21 I have reviewed the current psychotropics carefully including drug interactions. Risk benefit ratio favors no change other than as noted in my dictated progress note. Diagnosis: Problems: (1) Impulse control disorder, unspecified (2) Anxiety disorder, unspecified (3) Dementia, vascular, with depression (4) Dementia, vascular, with delusions (5) Dementia in Alzheimer's disease with depression (6) Dementia in Alzheimer's disease with delusions (7) Dementia of the Alzheimer's type with early onset with behavioral disturbance (8) Major neurocognitive disorder SOO BAIRES MD Jul 22, 2021 22:36
--- NOTE | 2021-07-22 22:37 | PDOC ---
Exam Note: [place] Note: Please also refer to the separate dictated note~for this date of service dictated separately.~Patient seen individually. Discussed the patient with Nursing staff reviewed the chart.~Reviewed interim history and current functioning. Reviewed vital signs,~Labs/ Radiology~and current medications noted below. Continue current treatment with the changes noted in the dictated addendum note Assessment: Vital Signs/I&O: Vital Signs Date Time Temp Pulse Resp B/P (MAP) Pulse Ox O2 Delivery O2 Flow Rate FiO2 07/22/21 15:30 98.7 80 20 113/53 (73) 94 07/21/21 16:21 Room Air I & O 07/21/21 07/21/21 07/22/21 15:00 23:00 07:00 Intake Total 240 ml 560 ml Balance 240 ml 560 ml Labs: Laboratory Tests Test 07/22/21 07:29 07/22/21 11:15 07/22/21 11:30 07/22/21 16:33 Glucose (Fingerstick) 153 mg/dL (70-99) H 131 mg/dL (70-99) H 189 mg/dL (70-99) H SARS-CoV-2 (PCR) Not detected (NOT DETECTD) Test 07/22/21 20:04 Glucose (Fingerstick) 126 mg/dL (70-99) H Current Medications: Meds: Current Medications Medications (Trade) Dose Ordered Sig/Richard Route PRN Reason Start Time Stop Time Status Last Admin Dose Admin Mirtazapine (Remeron) 15 mg QHS PO 07/22/21 21:00 07/22/21 20:21 Melatonin (Melatonin) 3 mg QHS PO 07/22/21 21:00 07/22/21 20:21 I have reviewed the current psychotropics carefully including drug interactions. Risk benefit ratio favors no change other than as noted in my dictated progress note. Diagnosis: Problems: (1) Impulse control disorder, unspecified (2) Anxiety disorder, unspecified (3) Dementia, vascular, with depression (4) Dementia, vascular, with delusions (5) Dementia in Alzheimer's disease with depression (6) Dementia in Alzheimer's disease with delusions (7) Dementia of the Alzheimer's type with early onset with behavioral disturbance (8) Major neurocognitive disorder SOO BAIRES MD Jul 22, 2021 22:37
[2021-07-22] MEDS: traZODone 50 MG TABLET. PO PRN (22:56)
[2021-07-23 06:15] VITALS: BP 103/67
[2021-07-23] MEDS: INSULIN LISPRO 300 UNITS/3 ML VIAL. SQ SCH ×3 (08:00→16:54)
[2021-07-23] MEDS: DIVALPROEX 125 MG CAP.SPRINK PO SCH ×2 (08:37→17:17)
[2021-07-23] MEDS: metFORMIN 500 MG TABLET PO SCH ×2 (08:37→17:17)
--- NOTE | 2021-07-23 09:15 | NUR ---
Pt A&O to name and only. Absent of SI/HI behaviors. She intermittently talks to self or unseen entities. She is labile, at times calling out "oh God oh God" and "help me." She became elevated in anxiety and verbal outburst towards FENCE [employer]URE SUPERVISOR who was encouraging her to come eat breakfast. Pt was given time to self before another attempt at encouragement was given. This time pt was receptive and came to eat breakfast, she consumed 100%. She is compliant with whole medications. Plan of care continues, will pass to next shift.
--- NOTE | 2021-07-23 11:08 | NUR ---
Pt had wheeled self into another patient's room and when HEAD RESIDENT was helping pt go back to her own room she started screaming hysterically, "Oh my God! Oh my God! Help me! You're going to kill me!" Re-orientation not successful as pt continued to scream loudly and interrupt staff. PRN Zyprexa 2.5 mg administered SL d/t pt screaming hysterically and refusing to take the medication PO.
--- NOTE | 2021-07-23 12:40 | NUR ---
Lunch blood sugar 157, insulin held d/t pt not eating lunch despite staff encouragement.
[2021-07-23 16:58] VITALS: BP 100/60
[2021-07-23] MEDS: traZODone 50 MG TABLET. PO SCH (20:08)
[2021-07-23] MEDS: risperiDONE 1 MG TABLET. PO SCH (20:08)
[2021-07-23] MEDS: MIRTAZAPINE 15 MG TABLET PO SCH (20:08)
[2021-07-23] MEDS: MELATONIN 3 MG TABLET PO SCH (20:09)
--- NOTE | 2021-07-23 20:53 | PDOC ---
Exam Note: [place] Note: Please also refer to the separate dictated note~for this date of service dictated separately.~Patient seen individually. Discussed the patient with Nursing staff reviewed the chart.~Reviewed interim history and current functioning. Reviewed vital signs,~Labs/ Radiology~and current medications noted below. Continue current treatment with the changes noted in the dictated addendum note Assessment: Vital Signs/I&O: Vital Signs Date Time Temp Pulse Resp B/P (MAP) Pulse Ox O2 Delivery O2 Flow Rate FiO2 07/23/21 16:58 97.2 77 20 100/60 (73) 95 07/21/21 16:21 Room Air I & O 07/22/21 07/22/21 07/23/21 15:00 23:00 07:00 Intake Total 480 ml 240 ml 0 ml Balance 480 ml 240 ml 0 ml Labs: Laboratory Tests Test 07/23/21 07:22 07/23/21 11:59 07/23/21 16:54 07/23/21 20:24 Glucose (Fingerstick) 153 mg/dL (70-99) H 157 mg/dL (70-99) H 143 mg/dL (70-99) H 154 mg/dL (70-99) H Current Medications: Meds: Laboratory Tests Test 07/23/21 07:22 07/23/21 11:59 07/23/21 16:54 07/23/21 20:24 Glucose (Fingerstick) 153 mg/dL 157 mg/dL 143 mg/dL 154 mg/dL Current Medications Medications (Trade) Dose Ordered Sig/Richard Route PRN Reason Start Time Stop Time Status Last Admin Dose Admin Influenza Virus Vaccine Quadrival (Flulaval Quad 8936-8611 Syringe) 0.5 ml ONCE ONCE VAX IM 07/17/21 09:00 07/17/21 09:01 DC 07/17/21 10:00 Acetaminophen (Tylenol) 650 mg PRN Q6HRS PRN PO PAIN/FEVER 07/16/21 22:45 UNV Metformin HCl (Glucophage) 1,000 mg BIDWMEALS PO 07/17/21 08:00 07/23/21 17:17 Nystatin (Mycostatin) 1 sulma PRN BID PRN TP RASH 07/16/21 22:45 Quetiapine Fumarate (SEROquel) 50 mg BID PO 07/17/21 09:00 07/18/21 10:56 DC 07/18/21 08:21 Trazodone HCl (Desyrel) 50 mg QHS PO 07/17/21 21:00 07/23/21 20:08 Non-Formulary Medication (Albuterol Sulfate (Albuterol Sulfate Neb Soln)) 1 vial QID PRN NEB SHORTNESS OF AIR 07/16/21 22:45 UNV Non-Formulary Medication (Insulin Aspart (Insulin Aspart Flexpen)) 100 unit PRN AFTMEALHC PRN SQ ELEVATED BLOOD SUGAR 07/16/21 22:45 UNV Acetaminophen (Tylenol) 650 mg PRN Q6HRS PRN PO MILD PAIN / TEMP > 100.3'F 07/16/21 22:45 07/18/21 16:50 Multi-Ingredient Ointment (Analgesic [place]) 1 sulma PRN QID PRN TP MUSCLE PAIN 07/16/21 22:45 Al Hydroxide/Mg Hydroxide (Mylanta Plus Xs) 15 ml PRN AFTMEALHC PRN PO DYSPEPSIA 07/16/21 22:45 Magnesium Hydroxide (Milk Of Magnesia) 2,400 mg PRN QHS PRN PO CONSTIPATION 07/16/21 22:45 Albuterol Sulfate (Ventolin) 2.5 mg PRN Q6HRS PRN NEB SHORTNESS OF BREATH 07/16/21 23:00 07/17/21 06:25 DC Insulin Human Lispro (HumaLOG) 0-5 UNITS TIDWMEALS SQ 07/17/21 08:00 07/23/21 08:00 Dextrose (Dextrose 50%-Water Syringe) 12.5 gm PRN Q15MIN PRN IV SEE COMMENTS 07/17/21 00:15 Albuterol Sulfate (Ventolin Hfa Inhaler) 1 puff PRN Q6HRS PRN INH SHORTNESS OF BREATH 07/17/21 06:30 Risperidone (RisperDAL) 0.5 mg HS PO 07/18/21 21:00 07/21/21 19:40 DC 07/20/21 20:18 Olanzapine (ZyPREXA ZYDIS) 2.5 mg PRN Q2HR PRN PO PSYCHOSIS 07/18/21 18:15 07/23/21 11:08 Divalproex Sodium (Depakote Sprinkles) 125 mg BID@0900,1700 PO 07/21/21 09:00 07/23/21 17:17 Risperidone (RisperDAL) 1 mg HS PO 07/21/21 21:00 07/23/21 20:08 Trazodone HCl (Desyrel) 50 mg PRN QHS PRN PO INSOMNIA 07/21/21 19:45 07/22/21 22:56 Mirtazapine (Remeron) 7.5 mg QHS PO 07/21/21 21:00 07/22/21 19:52 DC 07/21/21 20:04 Mirtazapine (Remeron) 15 mg QHS PO 07/22/21 21:00 07/23/21 20:08 Melatonin (Melatonin) 3 mg QHS PO 07/22/21 21:00 07/23/21 20:00 DC 07/22/21 20:21 Melatonin (Melatonin) 4.5 mg QHS PO 07/23/21 21:00 07/23/21 20:09 Current Medications Medications (Trade) Dose Ordered Sig/Richard Route PRN Reason Start Time Stop Time Status Last Admin Dose Admin Mirtazapine (Remeron) 15 mg QHS PO 07/22/21 21:00 07/23/21 20:08 Melatonin (Melatonin) 3 mg QHS PO 07/22/21 21:00 07/23/21 20:00 DC 07/22/21 20:21 Melatonin (Melatonin) 4.5 mg QHS PO 07/23/21 21:00 07/23/21 20:09 I have reviewed the current psychotropics carefully including drug interactions. Risk benefit ratio favors no change other than as noted in my dictated progress note. Diagnosis: Problems: (1) Impulse control disorder, unspecified (2) Anxiety disorder, unspecified (3) Dementia, vascular, with depression (4) Dementia, vascular, with delusions (5) Dementia in Alzheimer's disease with depression (6) Dementia in Alzheimer's disease with delusions (7) Dementia of the Alzheimer's type with early onset with behavioral disturbance (8) Major neurocognitive disorder SOO BAIRES MD Jul 23, 2021 20:53
--- NOTE | 2021-07-23 21:45 | NUR ---
Pt located in her room this evening. Pt anxious and restless at times. Compliant with whole medications. Yelling out during cares. Pt currently sleeping in bed.
[2021-07-24 05:59] VITALS: BP 135/72
[2021-07-24 06:11] LABS: BASO % 1 % (0-3); EOS # 0.3 x10^3/uL (0.0-0.7); EOS % 4 % (0-3); HEMATOCRIT 31.9 % (36.0-47.0); HEMOGLOBIN 10.2 g/dL (12.0-15.5); LYMPH # 2.4 x10^3/uL (1.0-4.8); LYMPH % 33 % (24-48); MEAN CORPUSCULAR HEMOGLOBIN 27 pg (25-35); MEAN CORPUSCULAR HGB CONC 32 g/dL (31-37); MEAN CORPUSCULAR VOLUME 85 fL (79-100); MONO # 0.5 x10^3/uL (0.0-1.1); MONO % 7 % (0-9); NEUT # 4.1 x10^3uL (1.8-7.7); NEUT % 56 % (31-73); PLATELET COUNT 175 x10^3/uL (140-400); RED BLOOD COUNT 3.76 x10^6/uL (3.50-5.40); RED CELL DISTRIBUTION WIDTH 14.3 % (11.5-14.5); WHITE BLOOD COUNT 7.3 x10^3/uL (4.0-11.0)
[2021-07-24 06:26] LABS: ALBUMIN 2.4 g/dL (3.4-5.0); ALBUMIN/GLOBULIN RATIO 0.6 (1.0-1.7); ALK PHOS 106 U/L (46-116); ALT (SGPT) 23 U/L (14-59); ANION GAP 10 (6-14); AST (SGOT) 20 U/L (15-37); BLOOD UREA NITROGEN 30 mg/dL (7-20); BUN/CREATININE RATIO 27 (6-20); CALCIUM 8.8 mg/dL (8.5-10.1); CARBON DIOXIDE 25 mmol/L (21-32); CHLORIDE 106 mmol/L (98-107); CREATININE 1.1 mg/dL (0.6-1.0); GFR 47.3; GLUCOSE 130 mg/dL (70-99); POTASSIUM 4.4 mmol/L (3.5-5.1); SODIUM 141 mmol/L (136-145); TOTAL BILIRUBIN 0.2 mg/dL (0.2-1.0); TOTAL PROTEIN 6.6 g/dL (6.4-8.2)
[2021-07-24 06:46] LABS: VAL ACID 21 mcg/mL (50-100)
[2021-07-24] MEDS: INSULIN LISPRO 300 UNITS/3 ML VIAL. SQ SCH ×3 (07:29→16:53)
--- NOTE | 2021-07-24 07:35 | PDOC ---
Exam Note: [place] Note: This note is a late entry for 07/22/2021 covers elements not covered in my initial note. Subjective: The patient was seen individually in the evening of 07/22/2021 with Nahomi TANG, discussed and reviewed the chart. The patient slept poorly for only 1-1/2 hours previous night. She is yelling at times, attention seeking, dramatic. I met with her in her room. Review of Systems: Ambulation impaired in wheelchair. No CV, , pulmonary, eye, ENT system symptoms on review. Reliability poor. Mental Status Exam: The patient is oriented to herself. Insight and judgment, recent and remote memory, attention and concentration, fund of knowledge is poor consistent with her diagnosis. Laboratory Data: Reviewed. Impression: Major neurocognitive disorder Alzheimer, vascular, with delusions, depression, behavioral disturbance. Anxiety disorder unspecified. Impulse control disorder unspecified. Plan: Increase Remeron to 15 mg h.s. Stop melatonin 3 mg h.s. Maintain rest of the psychotropics unchanged. Assessment: Vital Signs/I&O: Vital Signs Date Time Temp Pulse Resp B/P (MAP) Pulse Ox O2 Delivery O2 Flow Rate FiO2 07/24/21 05:59 98.4 84 18 135/72 (93) 92 07/21/21 16:21 Room Air I & O 07/23/21 07/23/21 07/24/21 15:00 23:00 07:00 Intake Total 330 ml 150 ml Balance 330 ml 150 ml Labs: Laboratory Tests Test 07/23/21 11:59 07/23/21 16:54 07/23/21 20:24 07/24/21 05:43 Glucose (Fingerstick) 157 mg/dL (70-99) H 143 mg/dL (70-99) H 154 mg/dL (70-99) H White Blood Count 7.3 x10^3/uL (4.0-11.0) Red Blood Count 3.76 x10^6/uL (3.50-5.40) Hemoglobin 10.2 g/dL (12.0-15.5) L Hematocrit 31.9 % (36.0-47.0) L Mean Corpuscular Volume 85 fL (79-100) Mean Corpuscular Hemoglobin 27 pg (25-35) Mean Corpuscular Hemoglobin Concent 32 g/dL (31-37) Red Cell Distribution Width 14.3 % (11.5-14.5) Platelet Count 175 x10^3/uL (140-400) Neutrophils (%) (Auto) 56 % (31-73) Lymphocytes (%) (Auto) 33 % (24-48) Monocytes (%) (Auto) 7 % (0-9) Eosinophils (%) (Auto) 4 % (0-3) H Basophils (%) (Auto) 1 % (0-3) Neutrophils # (Auto) 4.1 x10^3uL (1.8-7.7) Lymphocytes # (Auto) 2.4 x10^3/uL (1.0-4.8) Monocytes # (Auto) 0.5 x10^3/uL (0.0-1.1) Eosinophils # (Auto) 0.3 x10^3/uL (0.0-0.7) Basophils # (Auto) 0.0 x10^3/uL (0.0-0.2) Sodium Level 141 mmol/L (136-145) Potassium Level 4.4 mmol/L (3.5-5.1) Chloride Level 106 mmol/L (98-107) Carbon Dioxide Level 25 mmol/L (21-32) Anion Gap 10 (6-14) Blood Urea Nitrogen 30 mg/dL (7-20) H Creatinine 1.1 mg/dL (0.6-1.0) H Estimated GFR (Cockcroft-Gault) 47.3 BUN/Creatinine Ratio 27 (6-20) H Glucose Level 130 mg/dL (70-99) H Calcium Level 8.8 mg/dL (8.5-10.1) Total Bilirubin 0.2 mg/dL (0.2-1.0) Aspartate Amino Transferase (AST) 20 U/L (15-37) Alanine Aminotransferase (ALT) 23 U/L (14-59) Alkaline Phosphatase 106 U/L (46-116) Total Protein 6.6 g/dL (6.4-8.2) Albumin 2.4 g/dL (3.4-5.0) L Albumin/Globulin Ratio 0.6 (1.0-1.7) L Valproic Acid Level 21 mcg/mL (50-100) L Valproic Acid Last Dose Date 07/23/21 Valproic Acid Last Dose Time 1700 Test 07/24/21 07:25 Glucose (Fingerstick) 142 mg/dL (70-99) H Current Medications: Meds: Laboratory Tests Test 07/23/21 11:59 07/23/21 16:54 07/23/21 20:24 07/24/21 05:43 Glucose (Fingerstick) 157 mg/dL 143 mg/dL 154 mg/dL White Blood Count 7.3 x10^3/uL Red Blood Count 3.76 x10^6/uL Hemoglobin 10.2 g/dL Hematocrit 31.9 % Mean Corpuscular Volume 85 fL Mean Corpuscular Hemoglobin 27 pg Mean Corpuscular Hemoglobin Concent 32 g/dL Red Cell Distribution Width 14.3 % Platelet Count 175 x10^3/uL Neutrophils (%) (Auto) 56 % Lymphocytes (%) (Auto) 33 % Monocytes (%) (Auto) 7 % Eosinophils (%) (Auto) 4 % Basophils (%) (Auto) 1 % Neutrophils # (Auto) 4.1 x10^3uL Lymphocytes # (Auto) 2.4 x10^3/uL Monocytes # (Auto) 0.5 x10^3/uL Eosinophils # (Auto) 0.3 x10^3/uL Basophils # (Auto) 0.0 x10^3/uL Sodium Level 141 mmol/L Potassium Level 4.4 mmol/L Chloride Level 106 mmol/L Carbon Dioxide Level 25 mmol/L Anion Gap 10 Blood Urea Nitrogen 30 mg/dL Creatinine 1.1 mg/dL Estimated GFR (Cockcroft-Gault) 47.3 BUN/Creatinine Ratio 27 Glucose Level 130 mg/dL Calcium Level 8.8 mg/dL Total Bilirubin 0.2 mg/dL Aspartate Amino Transf (AST/SGOT) 20 U/L Alanine Aminotransferase (ALT/SGPT) 23 U/L Alkaline Phosphatase 106 U/L Total Protein 6.6 g/dL Albumin 2.4 g/dL Albumin/Globulin Ratio 0.6 Valproic Acid (Depakene) Level 21 mcg/mL Valproic Acid Last Dose Date 07/23/21 Valproic Acid Last Dose Time 1700 Test 07/24/21 07:25 Glucose (Fingerstick) 142 mg/dL Current Medications Medications (Trade) Dose Ordered Sig/Richard Route PRN Reason Start Time Stop Time Status Last Admin Dose Admin Influenza Virus Vaccine Quadrival (Flulaval Quad [id number] Syringe) 0.5 ml ONCE ONCE VAX IM 07/17/21 09:00 07/17/21 09:01 DC 07/17/21 10:00 Acetaminophen (Tylenol) 650 mg PRN Q6HRS PRN PO PAIN/FEVER 07/16/21 22:45 UNV Metformin HCl (Glucophage) 1,000 mg BIDWMEALS PO 07/17/21 08:00 07/23/21 17:17 Nystatin (Mycostatin) 1 sulma PRN BID PRN TP RASH 07/16/21 22:45 Quetiapine Fumarate (SEROquel) 50 mg BID PO 07/17/21 09:00 07/18/21 10:56 DC 07/18/21 08:21 Trazodone HCl (Desyrel) 50 mg QHS PO 07/17/21 21:00 07/23/21 20:08 Non-Formulary Medication (Albuterol Sulfate (Albuterol Sulfate Neb Soln)) 1 vial QID PRN NEB SHORTNESS OF AIR 07/16/21 22:45 UNV Non-Formulary Medication (Insulin Aspart (Insulin Aspart Flexpen)) 100 unit PRN AFTMEALHC PRN SQ ELEVATED BLOOD SUGAR 07/16/21 22:45 UNV Acetaminophen (Tylenol) 650 mg PRN Q6HRS PRN PO MILD PAIN / TEMP > 100.3'F 07/16/21 22:45 07/18/21 16:50 Multi-Ingredient Ointment (Analgesic [place]) 1 sulma PRN QID PRN TP MUSCLE PAIN 07/16/21 22:45 Al Hydroxide/Mg Hydroxide (Mylanta Plus Xs) 15 ml PRN AFTMEALHC PRN PO DYSPEPSIA 07/16/21 22:45 Magnesium Hydroxide (Milk Of Magnesia) 2,400 mg PRN QHS PRN PO CONSTIPATION 07/16/21 22:45 Albuterol Sulfate (Ventolin) 2.5 mg PRN Q6HRS PRN NEB SHORTNESS OF BREATH 07/16/21 23:00 07/17/21 06:25 DC Insulin Human Lispro (HumaLOG) 0-5 UNITS TIDWMEALS SQ 07/17/21 08:00 07/23/21 08:00 Dextrose (Dextrose 50%-Water Syringe) 12.5 gm PRN Q15MIN PRN IV SEE COMMENTS 07/17/21 00:15 Albuterol Sulfate (Ventolin Hfa Inhaler) 1 puff PRN Q6HRS PRN INH SHORTNESS OF BREATH 07/17/21 06:30 Risperidone (RisperDAL) 0.5 mg HS PO 07/18/21 21:00 07/21/21 19:40 DC 07/20/21 20:18 Olanzapine (ZyPREXA ZYDIS) 2.5 mg PRN Q2HR PRN PO PSYCHOSIS 07/18/21 18:15 07/23/21 11:08 Divalproex Sodium (Depakote Sprinkles) 125 mg BID@0900,1700 PO 07/21/21 09:00 07/23/21 17:17 Risperidone (RisperDAL) 1 mg HS PO 07/21/21 21:00 07/23/21 20:08 Trazodone HCl (Desyrel) 50 mg PRN QHS PRN PO INSOMNIA 07/21/21 19:45 07/22/21 22:56 Mirtazapine (Remeron) 7.5 mg QHS PO 07/21/21 21:00 07/22/21 19:52 DC 07/21/21 20:04 Mirtazapine (Remeron) 15 mg QHS PO 07/22/21 21:00 07/23/21 20:08 Melatonin (Melatonin) 3 mg QHS PO 07/22/21 21:00 07/23/21 20:00 DC 07/22/21 20:21 Melatonin (Melatonin) 4.5 mg QHS PO 07/23/21 21:00 07/23/21 20:09 Current Medications Medications (Trade) Dose Ordered Sig/Richard Route PRN Reason Start Time Stop Time Status Last Admin Dose Admin Melatonin (Melatonin) 4.5 mg QHS PO 07/23/21 21:00 07/23/21 20:09 I have reviewed the current psychotropics carefully including drug interactions. Risk benefit ratio favors no change other than as noted in my dictated progress note. Diagnosis: Problems: (1) Impulse control disorder, unspecified (2) Anxiety disorder, unspecified (3) Dementia, vascular, with depression (4) Dementia, vascular, with delusions (5) Dementia in Alzheimer's disease with depression (6) Dementia in Alzheimer's disease with delusions (7) Dementia of the Alzheimer's type with early onset with behavioral disturbance (8) Major neurocognitive disorder SOO BAIRES MD Jul 24, 2021 07:35
--- NOTE | 2021-07-24 08:02 | PDOC ---
Exam Note: [place] Note: This note is a late entry for 07/23/2021 covers elements not covered in my initial note. Subjective: The patient was seen individually in the evening of 07/23/2021 with Nahomi TANG, discussed and reviewed the chart. The patient slept 4-1/2 hours previous night. She is hyperverbal, restless, anxious, screaming, yelling at times, delusional. Medications had to be syringed. She was yelling out youre trying to kill me. Review of Systems: Ambulation impaired in wheelchair. No CV, , pulmonary, eye, ENT system symptoms on review. Reliability poor. Mental Status Exam: The patient is oriented to herself. I met with her in her room. Insight and judgment, recent and remote memory, attention and concentration, fund of knowledge is poor consistent with her diagnosis. Laboratory Data: Reviewed. Impression: Major neurocognitive disorder Alzheimer, vascular, with delusions, depression, behavioral disturbance. Anxiety disorder unspecified. Impulse control disorder unspecified. Plan: Increase melatonin up to 5 mg h.s. She again did not sleep well last night. Continue rest of the psychotropics unchanged. Assessment: Vital Signs/I&O: Vital Signs Date Time Temp Pulse Resp B/P (MAP) Pulse Ox O2 Delivery O2 Flow Rate FiO2 07/24/21 05:59 98.4 84 18 135/72 (93) 92 07/21/21 16:21 Room Air I & O 07/23/21 07/23/21 07/24/21 15:00 23:00 07:00 Intake Total 330 ml 150 ml Balance 330 ml 150 ml Labs: Laboratory Tests Test 07/23/21 11:59 07/23/21 16:54 07/23/21 20:24 07/24/21 05:43 Glucose (Fingerstick) 157 mg/dL (70-99) H 143 mg/dL (70-99) H 154 mg/dL (70-99) H White Blood Count 7.3 x10^3/uL (4.0-11.0) Red Blood Count 3.76 x10^6/uL (3.50-5.40) Hemoglobin 10.2 g/dL (12.0-15.5) L Hematocrit 31.9 % (36.0-47.0) L Mean Corpuscular Volume 85 fL (79-100) Mean Corpuscular Hemoglobin 27 pg (25-35) Mean Corpuscular Hemoglobin Concent 32 g/dL (31-37) Red Cell Distribution Width 14.3 % (11.5-14.5) Platelet Count 175 x10^3/uL (140-400) Neutrophils (%) (Auto) 56 % (31-73) Lymphocytes (%) (Auto) 33 % (24-48) Monocytes (%) (Auto) 7 % (0-9) Eosinophils (%) (Auto) 4 % (0-3) H Basophils (%) (Auto) 1 % (0-3) Neutrophils # (Auto) 4.1 x10^3uL (1.8-7.7) Lymphocytes # (Auto) 2.4 x10^3/uL (1.0-4.8) Monocytes # (Auto) 0.5 x10^3/uL (0.0-1.1) Eosinophils # (Auto) 0.3 x10^3/uL (0.0-0.7) Basophils # (Auto) 0.0 x10^3/uL (0.0-0.2) Sodium Level 141 mmol/L (136-145) Potassium Level 4.4 mmol/L (3.5-5.1) Chloride Level 106 mmol/L (98-107) Carbon Dioxide Level 25 mmol/L (21-32) Anion Gap 10 (6-14) Blood Urea Nitrogen 30 mg/dL (7-20) H Creatinine 1.1 mg/dL (0.6-1.0) H Estimated GFR (Cockcroft-Gault) 47.3 BUN/Creatinine Ratio 27 (6-20) H Glucose Level 130 mg/dL (70-99) H Calcium Level 8.8 mg/dL (8.5-10.1) Total Bilirubin 0.2 mg/dL (0.2-1.0) Aspartate Amino Transferase (AST) 20 U/L (15-37) Alanine Aminotransferase (ALT) 23 U/L (14-59) Alkaline Phosphatase 106 U/L (46-116) Total Protein 6.6 g/dL (6.4-8.2) Albumin 2.4 g/dL (3.4-5.0) L Albumin/Globulin Ratio 0.6 (1.0-1.7) L Valproic Acid Level 21 mcg/mL (50-100) L Valproic Acid Last Dose Date 07/23/21 Valproic Acid Last Dose Time 1700 Test 07/24/21 07:25 Glucose (Fingerstick) 142 mg/dL (70-99) H Current Medications: Meds: Current Medications Medications (Trade) Dose Ordered Sig/Richard Route PRN Reason Start Time Stop Time Status Last Admin Dose Admin Melatonin (Melatonin) 4.5 mg QHS PO 07/23/21 21:00 07/23/21 20:09 I have reviewed the current psychotropics carefully including drug interactions. Risk benefit ratio favors no change other than as noted in my dictated progress note. Diagnosis: Problems: (1) Impulse control disorder, unspecified (2) Anxiety disorder, unspecified (3) Dementia, vascular, with depression (4) Dementia, vascular, with delusions (5) Dementia in Alzheimer's disease with depression (6) Dementia in Alzheimer's disease with delusions (7) Dementia of the Alzheimer's type with early onset with behavioral distu rbance (8) Major neurocognitive disorder SOO BAIRES MD Jul 24, 2021 08:02
[2021-07-24] MEDS: metFORMIN 500 MG TABLET PO SCH ×2 (08:04→17:08)
[2021-07-24] MEDS: DIVALPROEX 125 MG CAP.SPRINK PO SCH ×2 (08:04→17:08)
--- NOTE | 2021-07-24 10:44 | NUR ---
PT TOOK A SHOWER THIS MORNING. PT TOOK MEDICATIONS AND ALLOWED FOR ASSESSMENT THIS AM. PT RESTING IN HER W/C IN THE HALLWAY CURRENTLY. AFTER PT TOOK MEDS, PT BEGAN TO YELL AT THIS RN SAYING "I'M COLD, YOU MADE ME COLD, YOU BETTER GET OUT OF HERE BEFORE I KICK YOU OUT OF HERE". SPOKE WITH JAGDEEP LANG THIS AM. SHE JUST WANTED TO CHECK IN TO SEE HOW SHE WAS DOING. PT LAUGHING WITH TABLE MATE AT BREAKFAST THIS AM AND CONVERSING WITH THEM.
[2021-07-24 15:37] VITALS: BP 109/68
--- NOTE | 2021-07-24 20:15 | PDOC ---
Exam Note: [place] Note: Please also refer to the separate dictated note~for this date of service dictated separately.~Patient seen individually. Discussed the patient with Nursing staff reviewed the chart.~Reviewed interim history and current functioning. Reviewed vital signs,~Labs/ Radiology~and current medications noted below. Continue current treatment with the changes noted in the dictated addendum note Assessment: Vital Signs/I&O: Vital Signs Date Time Temp Pulse Resp B/P (MAP) Pulse Ox O2 Delivery O2 Flow Rate FiO2 07/24/21 15:37 97.5 76 19 109/68 (82) 99 07/21/21 16:21 Room Air I & O 07/23/21 07/23/21 07/24/21 15:00 23:00 07:00 Intake Total 330 ml 150 ml Balance 330 ml 150 ml Labs: Laboratory Tests Test 07/23/21 20:24 07/24/21 05:43 07/24/21 07:25 07/24/21 11:55 Glucose (Fingerstick) 154 mg/dL (70-99) H 142 mg/dL (70-99) H 156 mg/dL (70-99) H White Blood Count 7.3 x10^3/uL (4.0-11.0) Red Blood Count 3.76 x10^6/uL (3.50-5.40) Hemoglobin 10.2 g/dL (12.0-15.5) L Hematocrit 31.9 % (36.0-47.0) L Mean Corpuscular Volume 85 fL (79-100) Mean Corpuscular Hemoglobin 27 pg (25-35) Mean Corpuscular Hemoglobin Concent 32 g/dL (31-37) Red Cell Distribution Width 14.3 % (11.5-14.5) Platelet Count 175 x10^3/uL (140-400) Neutrophils (%) (Auto) 56 % (31-73) Lymphocytes (%) (Auto) 33 % (24-48) Monocytes (%) (Auto) 7 % (0-9) Eosinophils (%) (Auto) 4 % (0-3) H Basophils (%) (Auto) 1 % (0-3) Neutrophils # (Auto) 4.1 x10^3uL (1.8-7.7) Lymphocytes # (Auto) 2.4 x10^3/uL (1.0-4.8) Monocytes # (Auto) 0.5 x10^3/uL (0.0-1.1) Eosinophils # (Auto) 0.3 x10^3/uL (0.0-0.7) Basophils # (Auto) 0.0 x10^3/uL (0.0-0.2) Sodium Level 141 mmol/L (136-145) Potassium Level 4.4 mmol/L (3.5-5.1) Chloride Level 106 mmol/L (98-107) Carbon Dioxide Level 25 mmol/L (21-32) Anion Gap 10 (6-14) Blood Urea Nitrogen 30 mg/dL (7-20) H Creatinine 1.1 mg/dL (0.6-1.0) H Estimated GFR (Cockcroft-Gault) 47.3 BUN/Creatinine Ratio 27 (6-20) H Glucose Level 130 mg/dL (70-99) H Calcium Level 8.8 mg/dL (8.5-10.1) Total Bilirubin 0.2 mg/dL (0.2-1.0) Aspartate Amino Transferase (AST) 20 U/L (15-37) Alanine Aminotransferase (ALT) 23 U/L (14-59) Alkaline Phosphatase 106 U/L (46-116) Total Protein 6.6 g/dL (6.4-8.2) Albumin 2.4 g/dL (3.4-5.0) L Albumin/Globulin Ratio 0.6 (1.0-1.7) L Valproic Acid Level 21 mcg/mL (50-100) L Valproic Acid Last Dose Date 07/23/21 Valproic Acid Last Dose Time 1700 Test 07/24/21 16:45 07/24/21 19:13 Glucose (Fingerstick) 130 mg/dL (70-99) H 177 mg/dL (70-99) H Current Medications: Meds: Laboratory Tests Test 07/23/21 20:24 07/24/21 05:43 07/24/21 07:25 07/24/21 11:55 Glucose (Fingerstick) 154 mg/dL 142 mg/dL 156 mg/dL White Blood Count 7.3 x10^3/uL Red Blood Count 3.76 x10^6/uL Hemoglobin 10.2 g/dL Hematocrit 31.9 % Mean Corpuscular Volume 85 fL Mean Corpuscular Hemoglobin 27 pg Mean Corpuscular Hemoglobin Concent 32 g/dL Red Cell Distribution Width 14.3 % Platelet Count 175 x10^3/uL Neutrophils (%) (Auto) 56 % Lymphocytes (%) (Auto) 33 % Monocytes (%) (Auto) 7 % Eosinophils (%) (Auto) 4 % Basophils (%) (Auto) 1 % Neutrophils # (Auto) 4.1 x10^3uL Lymphocytes # (Auto) 2.4 x10^3/uL Monocytes # (Auto) 0.5 x10^3/uL Eosinophils # (Auto) 0.3 x10^3/uL Basophils # (Auto) 0.0 x10^3/uL Sodium Level 141 mmol/L Potassium Level 4.4 mmol/L Chloride Level 106 mmol/L Carbon Dioxide Level 25 mmol/L Anion Gap 10 Blood Urea Nitrogen 30 mg/dL Creatinine 1.1 mg/dL Estimated GFR (Cockcroft-Gault) 47.3 BUN/Creatinine Ratio 27 Glucose Level 130 mg/dL Calcium Level 8.8 mg/dL Total Bilirubin 0.2 mg/dL Aspartate Amino Transf (AST/SGOT) 20 U/L Alanine Aminotransferase (ALT/SGPT) 23 U/L Alkaline Phosphatase 106 U/L Total Protein 6.6 g/dL Albumin 2.4 g/dL Albumin/Globulin Ratio 0.6 Valproic Acid (Depakene) Level 21 mcg/mL Valproic Acid Last Dose Date 07/23/21 Valproic Acid Last Dose Time 1700 Test 07/24/21 16:45 07/24/21 19:13 Glucose (Fingerstick) 130 mg/dL 177 mg/dL Current Medications Medications (Trade) Dose Ordered Sig/Richard Route PRN Reason Start Time Stop Time Status Last Admin Dose Admin Influenza Virus Vaccine Quadrival (Flulaval Quad Syringe) 0.5 ml ONCE ONCE VAX IM 07/17/21 09:00 07/17/21 09:01 DC 07/17/21 10:00 Acetaminophen (Tylenol) 650 mg PRN Q6HRS PRN PO PAIN/FEVER 07/16/21 22:45 UNV Metformin HCl (Glucophage) 1,000 mg BIDWMEALS PO 07/17/21 08:00 07/24/21 17:08 Nystatin (Mycostatin) 1 sulma PRN BID PRN TP RASH 07/16/21 22:45 Quetiapine Fumarate (SEROquel) 50 mg BID PO 07/17/21 09:00 07/18/21 10:56 DC 07/18/21 08:21 Trazodone HCl (Desyrel) 50 mg QHS PO 07/17/21 21:00 07/23/21 20:08 Non-Formulary Medication (Albuterol Sulfate (Albuterol Sulfate Neb Soln)) 1 vial QID PRN NEB SHORTNESS OF AIR 07/16/21 22:45 UNV Non-Formulary Medication (Insulin Aspart (Insulin Aspart Flexpen)) 100 unit PRN AFTMEALHC PRN SQ ELEVATED BLOOD SUGAR 07/16/21 22:45 UNV Acetaminophen (Tylenol) 650 mg PRN Q6HRS PRN PO MILD PAIN / TEMP > 100.3'F 07/16/21 22:45 07/18/21 16:50 Multi-Ingredient Ointment (Analgesic [place]) 1 sulma PRN QID PRN TP MUSCLE PAIN 07/16/21 22:45 Al Hydroxide/Mg Hydroxide (Mylanta Plus Xs) 15 ml PRN AFTMEALHC PRN PO DYSPEPSIA 07/16/21 22:45 Magnesium Hydroxide (Milk Of Magnesia) 2,400 mg PRN QHS PRN PO CONSTIPATION 07/16/21 22:45 Albuterol Sulfate (Ventolin) 2.5 mg PRN Q6HRS PRN NEB SHORTNESS OF BREATH 07/16/21 23:00 07/17/21 06:25 DC Insulin Human Lispro (HumaLOG) 0-5 UNITS TIDWMEALS SQ 07/17/21 08:00 07/24/21 12:10 Dextrose (Dextrose 50%-Water Syringe) 12.5 gm PRN Q15MIN PRN IV SEE COMMENTS 07/17/21 00:15 Albuterol Sulfate (Ventolin Hfa Inhaler) 1 puff PRN Q6HRS PRN INH SHORTNESS OF BREATH 07/17/21 06:30 Risperidone (RisperDAL) 0.5 mg HS PO 07/18/21 21:00 07/21/21 19:40 DC 07/20/21 20:18 Olanzapine (ZyPREXA ZYDIS) 2.5 mg PRN Q2HR PRN PO PSYCHOSIS 07/18/21 18:15 07/23/21 11:08 Divalproex Sodium (Depakote Sprinkles) 125 mg BID@0900,1700 PO 07/21/21 09:00 07/24/21 17:08 Risperidone (RisperDAL) 1 mg HS PO 07/21/21 21:00 07/23/21 20:08 Trazodone HCl (Desyrel) 50 mg PRN QHS PRN PO INSOMNIA 07/21/21 19:45 07/22/21 22:56 Mirtazapine (Remeron) 7.5 mg QHS PO 07/21/21 21:00 07/22/21 19:52 DC 07/21/21 20:04 Mirtazapine (Remeron) 15 mg QHS PO 07/22/21 21:00 07/23/21 20:08 Melatonin (Melatonin) 3 mg QHS PO 07/22/21 21:00 07/23/21 20:00 DC 07/22/21 20:21 Melatonin (Melatonin) 4.5 mg QHS PO 07/23/21 21:00 07/23/21 20:09 Current Medications Medications (Trade) Dose Ordered Sig/Richard Route PRN Reason Start Time Stop Time Status Last Admin Dose Admin Melatonin (Melatonin) 4.5 mg QHS PO 07/23/21 21:00 07/23/21 20:09 I have reviewed the current psychotropics carefully including drug interactions. Risk benefit ratio favors no change other than as noted in my dictated progress note. Diagnosis: Problems: (1) Impulse control disorder, unspecified (2) Anxiety disorder, unspecified (3) Dementia, vascular, with depression (4) Dementia, vascular, with delusions (5) Dementia in Alzheimer's disease with depression (6) Dementia in Alzheimer's disease with delusions (7) Dementia of the Alzheimer's type with early onset with behavioral disturbance (8) Major neurocognitive disorder SOO BAIRES MD Jul 24, 2021 20:15
[2021-07-24] MEDS: MELATONIN 3 MG TABLET PO SCH (20:54)
[2021-07-24] MEDS: MIRTAZAPINE 15 MG TABLET PO SCH (20:54)
[2021-07-24] MEDS: risperiDONE 1 MG TABLET. PO SCH (20:54)
[2021-07-24] MEDS: traZODone 50 MG TABLET. PO SCH (20:55)
--- NOTE | 2021-07-24 22:47 | NUR ---
Patient was in bed when nurse entered room with medications. Patient did not want to sit up in bed for medications, nurse used bed to set patient up for meds. Patient compliant with medications, she took them whole. Patient yelling "no, no, no I can't lay on my back" when BOOK MENDER was in room to help her get ready for bed. Patient also talking about "the money", she kept saying "what about the money" but was unable to express anything more than that. Nurse reassured her that no one has her money and that Insurance is paying for her to stay here.
[2021-07-25 06:25] VITALS: BP 122/61
[2021-07-25] MEDS: INSULIN LISPRO 300 UNITS/3 ML VIAL. SQ SCH ×3 (07:18→16:31)
[2021-07-25] MEDS: DIVALPROEX 125 MG CAP.SPRINK PO SCH ×2 (08:23→16:34)
[2021-07-25] MEDS: metFORMIN 500 MG TABLET PO SCH ×2 (08:23→16:34)
--- NOTE | 2021-07-25 09:17 | NUR ---
Pt disorganized and confused this morning, A&O to name and only. Absent of SI/HI behaviors. She intermittently talks to self or unseen entities. She is frequently heard talking aloud in her room when is she is alone. She is labile, at times calling out "oh God oh God" and "help me." Yelling out was more prominent during the bologna lacer but has subsided some after breakfast. She is compliant with whole medications. Plan of care continues, will pass to next shift.
--- NOTE | 2021-07-25 10:38 | NUR ---
WEEKLY ACTIVITY THERAPY NOTE Date of Admission:07/16/21 Date of AT Assessment: 07/18 Precipitating behaviors that initiated intake and admission: Pt hallucinating, irritable calling out angry, confused, Delusions, combative, verbal aggression Goal aimed: increase socialization and engagement Initial Goal: Pt will participate in at least three activity therapy sessions per week Weekly progress towards goal: did not achieve, zero Group participation level: none Weekly highlights: no participation Behaviors observed: taking to herself and yelling out a bit Thursday afternoon Plan: no change to goal Beneficial adaptations: redirection
--- NOTE | 2021-07-25 11:50 | TX PLAN ---
Interdisciplinary Tx Plan Admission Information Jul 16, 2021 at 20:03 Legal Status (on Admission): Voluntary DPOA/Guardian Name: Lucille Bergman Contact Other Contact Name: Jayna Sheikh Contact Verified Code Status: Full Code Allergies: Coded Allergies: No Known Drug Allergies (Unverified , 07/16/21) Diagnoses Primary Diagnosis: (1) Impulse control disorder, unspecified (2) Anxiety disorder, unspecified (3) Dementia, vascular, with depression (4) Dementia, vascular, with delusions (5) Dementia in Alzheimer's disease with depression (6) Dementia in Alzheimer's disease with delusions (7) Dementia of the Alzheimer's type with early onset with behavioral disturbance (8) Major neurocognitive disorder Reasons for Admission: Aggressive, Delusions, Agitated, Sig. Change Sleep, Hallucinations, Combative Problem in Patient's Words: Per pt lucille fishman/DPАнна MORALES who was raised mostly by pt, pt has had a noticable decline over the past year and particularlly over the past couple of months. Up until a year ago, pt was living in her independant living apartment and out of the [place], she moved to [place], [place] and bought a house that she paid winn for. She was then found to be living in very poor conditions without running water and no utilities and overall unable to care for herself. She had a few past hospitalizations but then release to herself and then would be found again living in unsafe conditions. At one point, pt drove herself to Анна's home, but refused to come in to stay, and would only stay in her car. Анна was finally successful at gaining DPOA during one of pt's hospitalizations and also in getting her license revoked. During the past year, family and staff during the different hospitalizations discovered pt was having hallucinations and delusions that seem to continue. Анна is concerned if pt is struggling with onset of dementia or if pt is truly experiencing psychosis and might clear in the future with medication management. Additional Admission Comments: Per intake record, pt refusing UA and cath, sexually inappropriate comments to staff, not sleeping for 30 hours, combative to staff, delusions,auditory hallucinations, verbally aggressive, screaming, cussing, disruptive. Problems Active Problems: Hallucinations, delusions, combative, agitation Inactive Problems: Pt seems to be sleeping better. Will continue to monitor for any changes. Pt Strengths/Limitations Ability for [place]: Poor Cognitive Functioning/Ability: Poor Communication Skills/Ability: Fair Financial Resources: Fair Insight/Judgement: Poor Intellectual Ability: Fair Physical Health: Poor Social Skills: Fair Stability in Family: Fair Stability in School/Work: Fair Verbal Skills: Fair Discharge Criteria Discharge Criteria: Adequate arrangements @DC, Verbal commit med comply, Improved behavior Other Discharge Comments: None at this time. Preliminary Discharge Plan Preliminary DC Plan: Current Living Arrange. Special Precautions Special Precautions: Agitation/Assault Fall Risk: High Other Precautions (specify): Pt has a history of falls. Initial D/C Plan Plan is for pt to return to her facility at [facility]. Identified Discharge Needs: None at this time. Currently Utilized Resources Currently Utilized Resources/P: PCP-Dr. Quang Fishman/[facility]на [facility]; contact-CHANA rCuz Community Resources: None known at this time. Identified Problems/Hx/Goals Objectives/Short-Term Goals Short Term Goals: Control abnormal behavior, Dec. Aggression, Dec. Hallucination/Delus, Dec. Outbursts, Medication Stabilization, Monitor Med Effects, Prevent Deterioration, Promote Coping Skill Short Term Goals in Patient's: Assist with proper diagnosis of psychosis vs dementia. Interventions/Frequency Staff Interventions/Frequency&: Psychiatry to assess pt three times per week for medication management. Nursing to assess behaviors, monitor medications, and complete 15 minute checks daily. Social work to see pt at least two times weekly to aid in return to placement. Activities to encourage pt to participate in group activities daily. 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 Education: According to [employer], pt received a high school diploma and she had some technical college. Community Follow-up PCP Community Provider/Family Inpu: Pt lucille fishman/Анна LANG, provided pt history for the development of the treatment plan. Анна is available for further information should it be needed. Treatment Plan Explained Patient/Premium Note Interest Calculator Clerk had this treatment plan explained to him/her as indicated by the signature below and has been given the opportunity to ask questions and make suggestions: Date: Patient/Premium Note Interest Calculator Clerk Signature: Status Update Update Pt eating an average of 50% of her meals and sleeping an average of 4 hours. Pt is disorganized, delusional, and will sometimes talk to others that are not there. Pt will intermittently yell out, "Oh God, help me!" Pt is medication compliant and has made improvements in being cooperative with her cares. She can easily startle if she is moved too quickly in her wheelchair, but if notified early what is going on, she is less likely to holler out. Pt has not demonstrated any ability to participate in groups. She has self propelled in and out of group giving nonsensical responses. Pt plan is to return to [facility] provided her DPOA does not find an alternative placement prior to discharge. LINDA BLACKWELL Jul 25, 2021 11:50
--- NOTE | 2021-07-25 12:02 | NUR ---
Weekly Note: Pt eating an average of 50% of her meals and sleeping an average of 4 hours. Pt is disorganized, delusional, and will sometimes talk to others that are not there. Pt will intermittently yell out, "Oh God, help me!" Pt is medication compliant and has made improvements in being cooperative with her cares. She can easily startle if she is moved too quickly in her wheelchair, but if notified early what is going on, she is less likely to holler out. Pt has not demonstrated any ability to participate in groups. She has self propelled in and out of group giving nonsensical responses. Pt plan is to return to [facility] provided her DPOA does not find an alternative placement prior to discharge. CHANA attempted call to pt DPOA, Tessie, to provide update. Also, called Nancy at [facility] to give update. CHANA had to leave a message with both. CHANA awaiting calls returned and will continue to reach out as well.
[2021-07-25 15:52] VITALS: BP 144/70
[2021-07-25] MEDS: MELATONIN 3 MG TABLET PO SCH (20:22)
[2021-07-25] MEDS: traZODone 50 MG TABLET. PO SCH (20:23)
[2021-07-25] MEDS: risperiDONE 1 MG TABLET. PO SCH (20:23)
[2021-07-25] MEDS: traZODone 50 MG TABLET. PO PRN (20:23)
[2021-07-25] MEDS: MIRTAZAPINE 15 MG TABLET PO SCH (20:23)
--- NOTE | 2021-07-25 20:34 | PDOC ---
Exam Note: Troy Note: Please also refer to the separate dictated note~for this date of service dictated separately.~Patient seen individually. Discussed the patient with Nursing staff reviewed the chart.~Reviewed interim history and current functioning. Reviewed vital signs,~Labs/ Radiology~and current medications noted below. Continue current treatment with the changes noted in the dictated addendum note Assessment: Vital Signs/I&O: Vital Signs Date Time Temp Pulse Resp B/P (MAP) Pulse Ox O2 Delivery O2 Flow Rate FiO2 07/25/21 15:52 97.9 88 20 144/70 (94) 97 Room Air I & O 07/24/21 07/24/21 07/25/21 15:00 23:00 07:00 Intake Total 360 ml 480 ml Balance 360 ml 480 ml Labs: Laboratory Tests Test 07/25/21 07:14 07/25/21 12:17 07/25/21 16:28 07/25/21 19:06 Glucose (Fingerstick) 130 mg/dL (70-99) H 139 mg/dL (70-99) H 118 mg/dL (70-99) H 183 mg/dL (70-99) H Current Medications: Meds: Laboratory Tests Test 07/25/21 07:14 07/25/21 12:17 07/25/21 16:28 07/25/21 19:06 Glucose (Fingerstick) 130 mg/dL 139 mg/dL 118 mg/dL 183 mg/dL Current Medications Medications (Trade) Dose Ordered Sig/Richard Route PRN Reason Start Time Stop Time Status Last Admin Dose Admin Influenza Virus Vaccine Quadrival (Flulaval Quad [id number] Syringe) 0.5 ml ONCE ONCE VAX IM 07/17/21 09:00 07/17/21 09:01 DC 07/17/21 10:00 Acetaminophen (Tylenol) 650 mg PRN Q6HRS PRN PO PAIN/FEVER 07/16/21 22:45 UNV Metformin HCl (Glucophage) 1,000 mg BIDWMEALS PO 07/17/21 08:00 07/25/21 16:34 Nystatin (Mycostatin) 1 sulma PRN BID PRN TP RASH 07/16/21 22:45 Quetiapine Fumarate (SEROquel) 50 mg BID PO 07/17/21 09:00 07/18/21 10:56 DC 07/18/21 08:21 Trazodone HCl (Desyrel) 50 mg QHS PO 07/17/21 21:00 07/25/21 20:23 Non-Formulary Medication (Albuterol Sulfate (Albuterol Sulfate Neb Soln)) 1 vial QID PRN NEB SHORTNESS OF AIR 07/16/21 22:45 UNV Non-Formulary Medication (Insulin Aspart (Insulin Aspart Flexpen)) 100 unit PRN AFTMEALHC PRN SQ ELEVATED BLOOD SUGAR 07/16/21 22:45 UNV Acetaminophen (Tylenol) 650 mg PRN Q6HRS PRN PO MILD PAIN / TEMP > 100.3'F 07/16/21 22:45 07/18/21 16:50 Multi-Ingredient Ointment (Analgesic [place]) 1 sulma PRN QID PRN TP MUSCLE PAIN 07/16/21 22:45 Al Hydroxide/Mg Hydroxide (Mylanta Plus Xs) 15 ml PRN AFTMEALHC PRN PO DYSPEPSIA 07/16/21 22:45 Magnesium Hydroxide (Milk Of Magnesia) 2,400 mg PRN QHS PRN PO CONSTIPATION 07/16/21 22:45 Albuterol Sulfate (Ventolin) 2.5 mg PRN Q6HRS PRN NEB SHORTNESS OF BREATH 07/16/21 23:00 07/17/21 06:25 DC Insulin Human Lispro (HumaLOG) 0-5 UNITS TIDWMEALS SQ 07/17/21 08:00 07/24/21 12:10 Dextrose (Dextrose 50%-Water Syringe) 12.5 gm PRN Q15MIN PRN IV SEE COMMENTS 07/17/21 00:15 Albuterol Sulfate (Ventolin Hfa Inhaler) 1 puff PRN Q6HRS PRN INH SHORTNESS OF BREATH 07/17/21 06:30 Risperidone (RisperDAL) 0.5 mg HS PO 07/18/21 21:00 07/21/21 19:40 DC 07/20/21 20:18 Olanzapine (ZyPREXA ZYDIS) 2.5 mg PRN Q2HR PRN PO PSYCHOSIS 07/18/21 18:15 07/23/21 11:08 Divalproex Sodium (Depakote Sprinkles) 125 mg BID@0900,1700 PO 07/21/21 09:00 07/25/21 01:54 DC 07/24/21 17:08 Risperidone (RisperDAL) 1 mg HS PO 07/21/21 21:00 07/25/21 20:23 Trazodone HCl (Desyrel) 50 mg PRN QHS PRN PO INSOMNIA 07/21/21 19:45 07/25/21 20:23 Mirtazapine (Remeron) 7.5 mg QHS PO 07/21/21 21:00 07/22/21 19:52 DC 07/21/21 20:04 Mirtazapine (Remeron) 15 mg QHS PO 07/22/21 21:00 07/25/21 20:23 Melatonin (Melatonin) 3 mg QHS PO 07/22/21 21:00 07/23/21 20:00 DC 07/22/21 20:21 Melatonin (Melatonin) 4.5 mg QHS PO 07/23/21 21:00 07/25/21 20:22 Divalproex Sodium (Depakote Sprinkles) 250 mg BID@0900,1700 PO 07/25/21 09:00 07/25/21 16:34 Current Medications Medications (Trade) Dose Ordered Sig/Richard Route PRN Reason Start Time Stop Time Status Last Admin Dose Admin Divalproex Sodium (Depakote Sprinkles) 250 mg BID@0900,1700 PO 07/25/21 09:00 07/25/21 16:34 I have reviewed the current psychotropics carefully including drug interactions. Risk benefit ratio favors no change other than as noted in my dictated progress note. Diagnosis: Problems: (1) Impulse control disorder, unspecified (2) Anxiety disorder, unspecified (3) Dementia, vascular, with depression (4) Dementia, vascular, with delusions (5) Dementia in Alzheimer's disease with depression (6) Dementia in Alzheimer's disease with delusions (7) Dementia of the Alzheimer's type with early onset with behavioral disturbance (8) Major neurocognitive disorder SOO BAIRES MD Jul 25, 2021 20:34
--- NOTE | 2021-07-25 23:30 | NUR ---
Patient located in her room on assumption of care, asleep in bed. Awakens to name, but immediately closed her eyes and turned her head towards the wall. A short time later, patient had been incontinent of an XL loose bowel movement. After being cleaned up, this nurse reapproached with her HS medications. She complained of "not feeling well", but could not state specifically what she meant by that. She denied any abdominal pain, or any other pain or discomfort at that time. Lung sounds diminished but clear, active bowel sounds. Took her medications whole. No hallucinations noted so far this shift, but patient is delusional, stating "Oh no, I can't get the babies sick! Will you watch out for them?" Patient appears to be sleeping comfortably at present time. Will continue to monitor.
[2021-07-26 06:16] VITALS: BP 108/62
[2021-07-26] MEDS: INSULIN LISPRO 300 UNITS/3 ML VIAL. SQ SCH ×3 (08:00→17:00)
[2021-07-26] MEDS: metFORMIN 500 MG TABLET PO SCH ×2 (08:18→17:17)
[2021-07-26] MEDS: DIVALPROEX 125 MG CAP.SPRINK PO SCH ×2 (08:19→17:17)
--- NOTE | 2021-07-26 09:50 | PDOC ---
Exam Note: Troy Note: This note is a late entry for 07/24/2021 covers elements not covered in my initial note. Subjective: The patient was seen individually in the evening of 07/24/2021 with Iris TANG, discussed and reviewed the chart. The patient slept 8 hours previous night. She has been yelling out at times, confused. She had to go for shower twice because once she defecated on herself and put fecal matter on her hair. She was having some hallucinations, was talking to a baby in her room and then talking to her father. Review of Systems: Ambulation impaired in wheelchair. She complains of feeling cold. No CV, , pulmonary, eye, ENT system symptoms on review. Reliability poor. Mental Status Exam: The patient is oriented to herself. Insight and judgment, recent and remote memory, attention and concentration, fund of knowledge is poor consistent with her diagnosis. Laboratory Data: Reviewed. Valproic acid level is 21. Impression: Major neurocognitive disorder Alzheimer, vascular, with delusions, depression, behavioral disturbance. Anxiety disorder unspecified. Impulse control disorder unspecified. Plan: Patients valproic acid level is 21 subtherapeutic on 125 mg twice a day. We will increase this to 250 mg twice a day. Check CBC, CMP, valproic acid level and ammonia level in 3 days. Rest unchanged for now. Assessment: Vital Signs/I&O: Vital Signs Date Time Temp Pulse Resp B/P (MAP) Pulse Ox O2 Delivery O2 Flow Rate FiO2 07/26/21 06:16 96.9 90 18 108/62 (77) 91 Room Air I & O 07/25/21 07/25/21 07/26/21 15:00 23:00 07:00 Intake Total 1800 ml 600 ml Balance 1800 ml 600 ml Labs: Laboratory Tests Test 07/25/21 12:17 07/25/21 16:28 07/25/21 19:06 07/26/21 07:24 Glucose (Fingerstick) 139 mg/dL (70-99) H 118 mg/dL (70-99) H 183 mg/dL (70-99) H 123 mg/dL (70-99) H Current Medications: Meds: Laboratory Tests Test 07/25/21 12:17 07/25/21 16:28 07/25/21 19:06 07/26/21 07:24 Glucose (Fingerstick) 139 mg/dL 118 mg/dL 183 mg/dL 123 mg/dL Current Medications Medications (Trade) Dose Ordered Sig/Richard Route PRN Reason Start Time Stop Time Status Last Admin Dose Admin Influenza Virus Vaccine Quadrival (Flulaval Quad Syringe) 0.5 ml ONCE ONCE VAX IM 07/17/21 09:00 07/17/21 09:01 DC 07/17/21 10:00 Acetaminophen (Tylenol) 650 mg PRN Q6HRS PRN PO PAIN/FEVER 07/16/21 22:45 UNV Metformin HCl (Glucophage) 1,000 mg BIDWMEALS PO 07/17/21 08:00 07/26/21 08:18 Nystatin (Mycostatin) 1 sulma PRN BID PRN TP RASH 07/16/21 22:45 Quetiapine Fumarate (SEROquel) 50 mg BID PO 07/17/21 09:00 07/18/21 10:56 DC 07/18/21 08:21 Trazodone HCl (Desyrel) 50 mg QHS PO 07/17/21 21:00 07/25/21 20:23 Non-Formulary Medication (Albuterol Sulfate (Albuterol Sulfate Neb Soln)) 1 vial QID PRN NEB SHORTNESS OF AIR 07/16/21 22:45 UNV Non-Formulary Medication (Insulin Aspart (Insulin Aspart Flexpen)) 100 unit PRN AFTMEALHC PRN SQ ELEVATED BLOOD SUGAR 07/16/21 22:45 UNV Acetaminophen (Tylenol) 650 mg PRN Q6HRS PRN PO MILD PAIN / TEMP > 100.3'F 07/16/21 22:45 07/18/21 16:50 Multi-Ingredient Ointment (Analgesic [place]) 1 sulma PRN QID PRN TP MUSCLE PAIN 07/16/21 22:45 Al Hydroxide/Mg Hydroxide (Mylanta Plus Xs) 15 ml PRN AFTMEALHC PRN PO DYSPEPSIA 07/16/21 22:45 Magnesium Hydroxide (Milk Of Magnesia) 2,400 mg PRN QHS PRN PO CONSTIPATION 07/16/21 22:45 Albuterol Sulfate (Ventolin) 2.5 mg PRN Q6HRS PRN NEB SHORTNESS OF BREATH 07/16/21 23:00 07/17/21 06:25 DC Insulin Human Lispro (HumaLOG) 0-5 UNITS TIDWMEALS SQ 07/17/21 08:00 07/24/21 12:10 Dextrose (Dextrose 50%-Water Syringe) 12.5 gm PRN Q15MIN PRN IV SEE COMMENTS 07/17/21 00:15 Albuterol Sulfate (Ventolin Hfa Inhaler) 1 puff PRN Q6HRS PRN INH SHORTNESS OF BREATH 07/17/21 06:30 Risperidone (RisperDAL) 0.5 mg HS PO 07/18/21 21:00 07/21/21 19:40 DC 07/20/21 20:18 Olanzapine (ZyPREXA ZYDIS) 2.5 mg PRN Q2HR PRN PO PSYCHOSIS 07/18/21 18:15 07/23/21 11:08 Divalproex Sodium (Depakote Sprinkles) 125 mg BID@0900,1700 PO 07/21/21 09:00 07/25/21 01:54 DC 07/24/21 17:08 Risperidone (RisperDAL) 1 mg HS PO 07/21/21 21:00 07/25/21 20:23 Trazodone HCl (Desyrel) 50 mg PRN QHS PRN PO INSOMNIA 07/21/21 19:45 07/25/21 20:23 Mirtazapine (Remeron) 7.5 mg QHS PO 07/21/21 21:00 07/22/21 19:52 DC 07/21/21 20:04 Mirtazapine (Remeron) 15 mg QHS PO 07/22/21 21:00 07/25/21 20:23 Melatonin (Melatonin) 3 mg QHS PO 07/22/21 21:00 07/23/21 20:00 DC 07/22/21 20:21 Melatonin (Melatonin) 4.5 mg QHS PO 07/23/21 21:00 07/25/21 20:22 Divalproex Sodium (Depakote Sprinkles) 250 mg BID@0900,1700 PO 07/25/21 09:00 07/26/21 08:19 I have reviewed the current psychotropics carefully including drug interactions. Risk benefit ratio favors no change other than as noted in my dictated progress note. Diagnosis: Problems: (1) Impulse control disorder, unspecified (2) Anxiety disorder, unspecified (3) Dementia, vascular, with depression (4) Dementia, vascular, with delusions (5) Dementia in Alzheimer's disease with depression (6) Dementia in Alzheimer's disease with delusions (7) Dementia of the Alzheimer's type with early onset with behavioral disturbance (8) Major neurocognitive disorder SOO BAIRES MD Jul 26, 2021 09:50
--- NOTE | 2021-07-26 10:06 | PDOC ---
Exam Note: Troy Note: This note is a late entry for 07/25/2021 covers elements not covered in my initial note. Subjective: The patient was reviewed at treatment team meeting individually in the morning on 07/25/2021 with Katherine Moreno, Eliza Muniz, and Stephani Curry (social science instructor), Martina, activity therapy, Nuria RN, [employer] Teacher, and Miriam RN, discussed and reviewed the chart. We discussed the patients diagnoses, progress, psychotropic medications. The patient slept 7 hours previous night. She has been delusional, disorganized. She complained of diarrhea. Also discussed with Debbie TANG in the evening. She is compliant with medications, agitated at times, talking about money matters. Review of Systems: Gait unsteady in wheelchair. No CV, , pulmonary, eye, ENT system symptoms on review. Mental Status Exam: The patient is oriented to herself. Insight and judgment, recent and remote memory, attention and concentration, fund of knowledge is poor consistent with her diagnosis. Laboratory Data: Reviewed. Impression: Major neurocognitive disorder Alzheimer, vascular, with delusions, depression, behavioral disturbance. Anxiety disorder unspecified. Impulse control disorder unspecified. Plan: Continue current psychotropics. Adjust as clinically indicated. Assessment: Vital Signs/I&O: Vital Signs Date Time Temp Pulse Resp B/P (MAP) Pulse Ox O2 Delivery O2 Flow Rate FiO2 07/26/21 06:16 96.9 90 18 108/62 (77) 91 Room Air I & O 07/25/21 07/25/21 07/26/21 15:00 23:00 07:00 Intake Total 1800 ml 600 ml Balance 1800 ml 600 ml Labs: Laboratory Tests Test 07/25/21 12:17 07/25/21 16:28 07/25/21 19:06 07/26/21 07:24 Glucose (Fingerstick) 139 mg/dL (70-99) H 118 mg/dL (70-99) H 183 mg/dL (70-99) H 123 mg/dL (70-99) H Current Medications: Meds: Laboratory Tests Test 07/25/21 12:17 07/25/21 16:28 07/25/21 19:06 07/26/21 07:24 Glucose (Fingerstick) 139 mg/dL 118 mg/dL 183 mg/dL 123 mg/dL Current Medications Medications (Trade) Dose Ordered Sig/Richard Route PRN Reason Start Time Stop Time Status Last Admin Dose Admin Influenza Virus Vaccine Quadrival (Flulaval Quad Syringe) 0.5 ml ONCE ONCE VAX IM 07/17/21 09:00 07/17/21 09:01 DC 07/17/21 10:00 Acetaminophen (Tylenol) 650 mg PRN Q6HRS PRN PO PAIN/FEVER 07/16/21 22:45 UNV Metformin HCl (Glucophage) 1,000 mg BIDWMEALS PO 07/17/21 08:00 07/26/21 08:18 Nystatin (Mycostatin) 1 sulma PRN BID PRN TP RASH 07/16/21 22:45 Quetiapine Fumarate (SEROquel) 50 mg BID PO 07/17/21 09:00 07/18/21 10:56 DC 07/18/21 08:21 Trazodone HCl (Desyrel) 50 mg QHS PO 07/17/21 21:00 07/25/21 20:23 Non-Formulary Medication (Albuterol Sulfate (Albuterol Sulfate Neb Soln)) 1 vial QID PRN NEB SHORTNESS OF AIR 07/16/21 22:45 UNV Non-Formulary Medication (Insulin Aspart (Insulin Aspart Flexpen)) 100 unit PRN AFTMEALHC PRN SQ ELEVATED BLOOD SUGAR 07/16/21 22:45 UNV Acetaminophen (Tylenol) 650 mg PRN Q6HRS PRN PO MILD PAIN / TEMP > 100.3'F 07/16/21 22:45 07/18/21 16:50 Multi-Ingredient Ointment (Analgesic [place]) 1 sulma PRN QID PRN TP MUSCLE PAIN 07/16/21 22:45 Al Hydroxide/Mg Hydroxide (Mylanta Plus Xs) 15 ml PRN AFTMEALHC PRN PO DYSPEPSIA 07/16/21 22:45 Magnesium Hydroxide (Milk Of Magnesia) 2,400 mg PRN QHS PRN PO CONSTIPATION 07/16/21 22:45 Albuterol Sulfate (Ventolin) 2.5 mg PRN Q6HRS PRN NEB SHORTNESS OF BREATH 07/16/21 23:00 07/17/21 06:25 DC Insulin Human Lispro (HumaLOG) 0-5 UNITS TIDWMEALS SQ 07/17/21 08:00 07/24/21 12:10 Dextrose (Dextrose 50%-Water Syringe) 12.5 gm PRN Q15MIN PRN IV SEE COMMENTS 07/17/21 00:15 Albuterol Sulfate (Ventolin Hfa Inhaler) 1 puff PRN Q6HRS PRN INH SHORTNESS OF BREATH 07/17/21 06:30 Risperidone (RisperDAL) 0.5 mg HS PO 07/18/21 21:00 07/21/21 19:40 DC 07/20/21 20:18 Olanzapine (ZyPREXA ZYDIS) 2.5 mg PRN Q2HR PRN PO PSYCHOSIS 07/18/21 18:15 07/23/21 11:08 Divalproex Sodium (Depakote Sprinkles) 125 mg BID@0900,1700 PO 07/21/21 09:00 07/25/21 01:54 DC 07/24/21 17:08 Risperidone (RisperDAL) 1 mg HS PO 07/21/21 21:00 07/25/21 20:23 Trazodone HCl (Desyrel) 50 mg PRN QHS PRN PO INSOMNIA 07/21/21 19:45 07/25/21 20:23 Mirtazapine (Remeron) 7.5 mg QHS PO 07/21/21 21:00 07/22/21 19:52 DC 07/21/21 20:04 Mirtazapine (Remeron) 15 mg QHS PO 07/22/21 21:00 07/25/21 20:23 Melatonin (Melatonin) 3 mg QHS PO 07/22/21 21:00 07/23/21 20:00 DC 07/22/21 20:21 Melatonin (Melatonin) 4.5 mg QHS PO 07/23/21 21:00 07/25/21 20:22 Divalproex Sodium (Depakote Sprinkles) 250 mg BID@0900,1700 PO 07/25/21 09:00 07/26/21 08:19 I have reviewed the current psychotropics carefully including drug interactions. Risk benefit ratio favors no change other than as noted in my dictated progress note. 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
--- NOTE | 2021-07-26 11:26 | NUR ---
Pt presents with neutral mood/affect at breakfast this morning. Pt is noted to be shouting out random phrases and questions to people who are not present, "Анна, come on are you going, I don't want to be all night." and "Анна, why did you buy it?" Pt has been noted to spend time in her room today. Pt will engage when approached by staff, but remains disorganized with thoughts. Pts vitals are WNL. Pt slept 6.25 hours last night. Pt continues to have a good appetite. Pt has no complaints of pain at this time. Pt is medication compliant. Will continue to monitor.
[2021-07-26 15:51] VITALS: BP 139/74
--- NOTE | 2021-07-26 20:28 | PDOC ---
Exam Note: Troy Note: Please also refer to the separate dictated note~for this date of service dictated separately.~Patient seen individually. Discussed the patient with Nursing staff reviewed the chart.~Reviewed interim history and current functioning. Reviewed vital signs,~Labs/ Radiology~and current medications noted below. Continue current treatment with the changes noted in the dictated addendum note Assessment: Vital Signs/I&O: Vital Signs Date Time Temp Pulse Resp B/P (MAP) Pulse Ox O2 Delivery O2 Flow Rate FiO2 07/26/21 15:51 98.2 88 20 139/74 (95) 94 07/26/21 06:16 Room Air I & O 07/25/21 07/25/21 07/26/21 15:00 23:00 07:00 Intake Total 1800 ml 600 ml Balance 1800 ml 600 ml Labs: Laboratory Tests Test 07/26/21 07:24 07/26/21 11:04 07/26/21 16:33 07/26/21 19:16 Glucose (Fingerstick) 123 mg/dL (70-99) H 284 mg/dL (70-99) H 89 mg/dL (70-99) 108 mg/dL (70-99) H Current Medications: Meds: Laboratory Tests Test 07/26/21 07:24 07/26/21 11:04 07/26/21 16:33 07/26/21 19:16 Glucose (Fingerstick) 123 mg/dL 284 mg/dL 89 mg/dL 108 mg/dL Current Medications Medications (Trade) Dose Ordered Sig/Richard Route PRN Reason Start Time Stop Time Status Last Admin Dose Admin Influenza Virus Vaccine Quadrival (Flulaval Quad Syringe) 0.5 ml ONCE ONCE VAX IM 07/17/21 09:00 07/17/21 09:01 DC 07/17/21 10:00 Acetaminophen (Tylenol) 650 mg PRN Q6HRS PRN PO PAIN/FEVER 07/16/21 22:45 UNV Metformin HCl (Glucophage) 1,000 mg BIDWMEALS PO 07/17/21 08:00 07/26/21 17:17 Nystatin (Mycostatin) 1 sulma PRN BID PRN TP RASH 07/16/21 22:45 Quetiapine Fumarate (SEROquel) 50 mg BID PO 07/17/21 09:00 07/18/21 10:56 DC 07/18/21 08:21 Trazodone HCl (Desyrel) 50 mg QHS PO 07/17/21 21:00 07/25/21 20:23 Non-Formulary Medication (Albuterol Sulfate (Albuterol Sulfate Neb Soln)) 1 vial QID PRN NEB SHORTNESS OF AIR 07/16/21 22:45 UNV Non-Formulary Medication (Insulin Aspart (Insulin Aspart Flexpen)) 100 unit PRN AFTMEALHC PRN SQ ELEVATED BLOOD SUGAR 07/16/21 22:45 UNV Acetaminophen (Tylenol) 650 mg PRN Q6HRS PRN PO MILD PAIN / TEMP > 100.3'F 07/16/21 22:45 07/18/21 16:50 Multi-Ingredient Ointment (Analgesic [place]) 1 sulma PRN QID PRN TP MUSCLE PAIN 07/16/21 22:45 Al Hydroxide/Mg Hydroxide (Mylanta Plus Xs) 15 ml PRN AFTMEALHC PRN PO DYSPEPSIA 07/16/21 22:45 Magnesium Hydroxide (Milk Of Magnesia) 2,400 mg PRN QHS PRN PO CONSTIPATION 07/16/21 22:45 Albuterol Sulfate (Ventolin) 2.5 mg PRN Q6HRS PRN NEB SHORTNESS OF BREATH 07/16/21 23:00 07/17/21 06:25 DC Insulin Human Lispro (HumaLOG) 0-5 UNITS TIDWMEALS SQ 07/17/21 08:00 07/26/21 12:23 Dextrose (Dextrose 50%-Water Syringe) 12.5 gm PRN Q15MIN PRN IV SEE COMMENTS 07/17/21 00:15 Albuterol Sulfate (Ventolin Hfa Inhaler) 1 puff PRN Q6HRS PRN INH SHORTNESS OF BREATH 07/17/21 06:30 Risperidone (RisperDAL) 0.5 mg HS PO 07/18/21 21:00 07/21/21 19:40 DC 07/20/21 20:18 Olanzapine (ZyPREXA ZYDIS) 2.5 mg PRN Q2HR PRN PO PSYCHOSIS 07/18/21 18:15 07/23/21 11:08 Divalproex Sodium (Depakote Sprinkles) 125 mg BID@0900,1700 PO 07/21/21 09:00 07/25/21 01:54 DC 07/24/21 17:08 Risperidone (RisperDAL) 1 mg HS PO 07/21/21 21:00 07/25/21 20:23 Trazodone HCl (Desyrel) 50 mg PRN QHS PRN PO INSOMNIA 07/21/21 19:45 07/25/21 20:23 Mirtazapine (Remeron) 7.5 mg QHS PO 07/21/21 21:00 07/22/21 19:52 DC 07/21/21 20:04 Mirtazapine (Remeron) 15 mg QHS PO 07/22/21 21:00 07/25/21 20:23 Melatonin (Melatonin) 3 mg QHS PO 07/22/21 21:00 07/23/21 20:00 DC 07/22/21 20:21 Melatonin (Melatonin) 4.5 mg QHS PO 07/23/21 21:00 07/25/21 20:22 Divalproex Sodium (Depakote Sprinkles) 250 mg BID@0900,1700 PO 07/25/21 09:00 07/26/21 17:17 I have reviewed the current psychotropics carefully including drug interactions. Risk benefit ratio favors no change other than as noted in my dictated progress note. Diagnosis: Problems: (1) Impulse control disorder, unspecified (2) Anxiety disorder, unspecified (3) Dementia, vascular, with depression (4) Dementia, vascular, with delusions (5) Dementia in Alzheimer's disease with depression (6) Dementia in Alzheimer's disease with delusions (7) Dementia of the Alzheimer's type with early onset with behavioral disturbance (8) Major neurocognitive disorder SOO BAIRES MD Jul 26, 2021 20:28
[2021-07-26] MEDS: traZODone 50 MG TABLET. PO SCH (20:35)
[2021-07-26] MEDS: MELATONIN 3 MG TABLET PO SCH (20:35)
[2021-07-26] MEDS: risperiDONE 1 MG TABLET. PO SCH (20:35)
[2021-07-26] MEDS: MIRTAZAPINE 15 MG TABLET PO SCH (20:36)
--- NOTE | 2021-07-26 22:45 | NUR ---
Patient located in her room on assumption of care, sitting in her wheelchair. When approached for assessments, she stated "I have to tell you something, just between me and you. There's a lady here, a blonde lady. She gave me a shower and this beautiful dress, and then she said she would come in the night and cut all my skin off. I don't think she really will, but I need some scissors, or a knife or something." This nurse reminded the patient that she was in the hospital and that the staff would ensure that she remained safe while she was here. She scoffed and stated "OK, whatever you say. We'll see." Compliant with medications whole. Patient appears to be sleeping comfortably at present time. Will continue to monitor.
[2021-07-27 05:41] VITALS: BP 96/59
[2021-07-27] MEDS: INSULIN LISPRO 300 UNITS/3 ML VIAL. SQ SCH ×3 (07:07→17:06)
[2021-07-27] MEDS: DIVALPROEX 125 MG CAP.SPRINK PO SCH ×2 (08:14→17:03)
[2021-07-27] MEDS: metFORMIN 500 MG TABLET PO SCH ×2 (08:14→17:03)
--- NOTE | 2021-07-27 11:04 | NUR ---
Pt began the day relatively calm and cooperative. She ate breakfast, and during the meal she was absent of disruptive behaviors. 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 She denied pain when asked. She is compliant with morning medications. Prior to lunch she became more elevated in anxiety, screaming out "oh my God" more frequently and not receptive to verbal de-escalation by staff. Attempts actually seem to heighten pt's agitation. This required PRN Zyprexa 2.5 mg SL to be administered. Pt is difficult to understand when she starts yelling out in an excited manner. Pt currently in the day room and watching tv. Plan of care continues, will pass to next shift.
--- NOTE | 2021-07-27 14:47 | NUR ---
Pt sitting in room screaming "Oh my God, help me, oh my God, come here" and elevating in anxiety. PRN Zyprexa 2.5 mg SL administered and pt brought to the day room to with staff and peers so she isn't sitting alone in her anxiety.
[2021-07-27 15:30] VITALS: BP 118/65
[2021-07-27] MEDS: NYSTATIN TOPICAL POWDER 15GM BOTTLE. TP SCH (20:29)
[2021-07-27] MEDS: risperiDONE 1 MG TABLET. PO SCH (20:29)
[2021-07-27] MEDS: MIRTAZAPINE 15 MG TABLET PO SCH (20:29)
[2021-07-27] MEDS: traZODone 50 MG TABLET. PO SCH (20:29)
[2021-07-27] MEDS: MELATONIN 3 MG TABLET PO SCH (20:29)
--- NOTE | 2021-07-27 21:54 | PDOC ---
Exam Note: Troy Note: Please also refer to the separate dictated note~for this date of service dictated separately.~Patient seen individually. Discussed the patient with Nursing staff reviewed the chart.~Reviewed interim history and current functioning. Reviewed vital signs,~Labs/ Radiology~and current medications noted below. Continue current treatment with the changes noted in the dictated addendum note Assessment: Vital Signs/I&O: Vital Signs Date Time Temp Pulse Resp B/P (MAP) Pulse Ox O2 Delivery O2 Flow Rate FiO2 07/27/21 15:30 97.9 78 18 118/65 (82) 99 07/27/21 05:41 Room Air I & O 07/26/21 07/26/21 07/27/21 15:00 23:00 07:00 Intake Total 720 ml 360 ml 420 ml Balance 720 ml 360 ml 420 ml Labs: Laboratory Tests Test 07/27/21 07:04 07/27/21 11:25 07/27/21 16:44 07/27/21 19:11 Glucose (Fingerstick) 103 mg/dL (70-99) H 118 mg/dL (70-99) H 174 mg/dL (70-99) H 127 mg/dL (70-99) H Current Medications: Meds: Laboratory Tests Test 07/27/21 07:04 07/27/21 11:25 07/27/21 16:44 07/27/21 19:11 Glucose (Fingerstick) 103 mg/dL 118 mg/dL 174 mg/dL 127 mg/dL Current Medications Medications (Trade) Dose Ordered Sig/Richard Route PRN Reason Start Time Stop Time Status Last Admin Dose Admin Influenza Virus Vaccine Quadrival (Flulaval Quad 8524-6812 Syringe) 0.5 ml ONCE ONCE VAX IM 07/17/21 09:00 07/17/21 09:01 DC 07/17/21 10:00 Acetaminophen (Tylenol) 650 mg PRN Q6HRS PRN PO PAIN/FEVER 07/16/21 22:45 UNV Metformin HCl (Glucophage) 1,000 mg BIDWMEALS PO 07/17/21 08:00 07/27/21 17:03 Nystatin (Mycostatin) 1 sulma PRN BID PRN TP RASH 07/16/21 22:45 Quetiapine Fumarate (SEROquel) 50 mg BID PO 07/17/21 09:00 07/18/21 10:56 DC 07/18/21 08:21 Trazodone HCl (Desyrel) 50 mg QHS PO 07/17/21 21:00 07/27/21 20:29 Non-Formulary Medication (Albuterol Sulfate (Albuterol Sulfate Neb Soln)) 1 vial QID PRN NEB SHORTNESS OF AIR 07/16/21 22:45 UNV Non-Formulary Medication (Insulin Aspart (Insulin Aspart Flexpen)) 100 unit PRN AFTMEALHC PRN SQ ELEVATED BLOOD SUGAR 07/16/21 22:45 UNV Acetaminophen (Tylenol) 650 mg PRN Q6HRS PRN PO MILD PAIN / TEMP > 100.3'F 07/16/21 22:45 07/18/21 16:50 Multi-Ingredient Ointment (Analgesic [place]) 1 sulma PRN QID PRN TP MUSCLE PAIN 07/16/21 22:45 Al Hydroxide/Mg Hydroxide (Mylanta Plus Xs) 15 ml PRN AFTMEALHC PRN PO DYSPEPSIA 07/16/21 22:45 Magnesium Hydroxide (Milk Of Magnesia) 2,400 mg PRN QHS PRN PO CONSTIPATION 07/16/21 22:45 Albuterol Sulfate (Ventolin) 2.5 mg PRN Q6HRS PRN NEB SHORTNESS OF BREATH 07/16/21 23:00 07/17/21 06:25 DC Insulin Human Lispro (HumaLOG) 0-5 UNITS TIDWMEALS SQ 07/17/21 08:00 07/27/21 17:06 Dextrose (Dextrose 50%-Water Syringe) 12.5 gm PRN Q15MIN PRN IV SEE COMMENTS 07/17/21 00:15 Albuterol Sulfate (Ventolin Hfa Inhaler) 1 puff PRN Q6HRS PRN INH SHORTNESS OF BREATH 07/17/21 06:30 Risperidone (RisperDAL) 0.5 mg HS PO 07/18/21 21:00 07/21/21 19:40 DC 07/20/21 20:18 Olanzapine (ZyPREXA ZYDIS) 2.5 mg PRN Q2HR PRN PO PSYCHOSIS 07/18/21 18:15 07/27/21 14:47 Divalproex Sodium (Depakote Sprinkles) 125 mg BID@0900,1700 PO 07/21/21 09:00 07/25/21 01:54 DC 07/24/21 17:08 Risperidone (RisperDAL) 1 mg HS PO 07/21/21 21:00 07/27/21 20:29 Trazodone HCl (Desyrel) 50 mg PRN QHS PRN PO INSOMNIA 07/21/21 19:45 07/25/21 20:23 Mirtazapine (Remeron) 7.5 mg QHS PO 07/21/21 21:00 07/22/21 19:52 DC 07/21/21 20:04 Mirtazapine (Remeron) 15 mg QHS PO 07/22/21 21:00 07/27/21 20:29 Melatonin (Melatonin) 3 mg QHS PO 07/22/21 21:00 07/23/21 20:00 DC 07/22/21 20:21 Melatonin (Melatonin) 4.5 mg QHS PO 07/23/21 21:00 07/27/21 20:29 Divalproex Sodium (Depakote Sprinkles) 250 mg BID@0900,1700 PO 07/25/21 09:00 07/27/21 17:03 Nystatin (Nystop) 1 sulma BID TP 07/27/21 21:00 07/27/21 20:29 Current Medications Medications (Trade) Dose Ordered Sig/Richard Route PRN Reason Start Time Stop Time Status Last Admin Dose Admin Nystatin (Nystop) 1 sulma BID TP 07/27/21 21:00 07/27/21 20:29 I have reviewed the current psychotropics carefully including drug interactions. Risk benefit ratio favors no change other than as noted in my dictated progress note. Diagnosis: Problems: (1) Impulse control disorder, unspecified (2) Anxiety disorder, unspecified (3) Dementia, vascular, with depression (4) Dementia, vascular, with delusions (5) Dementia in Alzheimer's disease with depression (6) Dementia in Alzheimer's disease with delusions (7) Dementia of the Alzheimer's type with early onset with behavioral disturbance (8) Major neurocognitive disorder SOO BAIRES MD Jul 27, 2021 21:54
[2021-07-27] MEDS: traZODone 50 MG TABLET. PO PRN (22:15)
--- NOTE | 2021-07-27 22:29 | NUR ---
Pt located in her room all evening. Pt compliant with whole medications. Pt delusional; stating that she is looking for a job here. 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 Pt currently sitting in her room awake. Pt hallucinating, continuously talking to someone that is not there. Repeat Trazodone administered.
[2021-07-28 05:49] VITALS: BP 95/62
--- NOTE | 2021-07-28 07:29 | PDOC ---
Exam Note: [place] Note: This note is a late entry for 07/26/2021 covers elements not covered in my initial note. Subjective: The patient was seen individually in the evening of 07/26/2021 with Debbie TANG, discussed and reviewed the chart. The patient slept 6-1/4 hours previous night. Overall the patient has done better. She remains confused, intermittently agitated. She was up at midnight, incontinent middle of the night and was talking about babies in her room. She is somewhat loud, disruptive, shouting at another patient. Review of Systems: Gait unsteady in wheelchair. No CV, , pulmonary, eye, ENT system symptoms on review. Mental Status Exam: The patient is oriented to herself. Insight and judgment, recent and remote memory, attention and concentration, fund of knowledge is poor consistent with her diagnosis. Laboratory Data: Reviewed. Impression: Major neurocognitive disorder Alzheimer, vascular, with delusions, depression, behavioral disturbance. Anxiety disorder unspecified. Impulse control disorder unspecified. Plan: Continue current psychotropics. Adjust as clinically indicated. Assessment: Vital Signs/I&O: Vital Signs Date Time Temp Pulse Resp B/P (MAP) Pulse Ox O2 Delivery O2 Flow Rate FiO2 07/28/21 05:49 96.9 90 18 95/62 (73) 94 Room Air l I & O 07/27/21 07/27/21 07/28/21 15:00 23:00 07:00 Intake Total 960 ml 480 ml Balance 960 ml 480 ml Labs: Laboratory Tests Test 07/27/21 11:25 07/27/21 16:44 07/27/21 19:11 Glucose (Fingerstick) 118 mg/dL (70-99) H 174 mg/dL (70-99) H 127 mg/dL (70-99) H Current Medications: Meds: Laboratory Tests Test 07/27/21 11:25 07/27/21 16:44 07/27/21 19:11 Glucose (Fingerstick) 118 mg/dL 174 mg/dL 127 mg/dL Current Medications Medications (Trade) Dose Ordered Sig/Richard Route PRN Reason Start Time Stop Time Status Last Admin Dose Admin Influenza Virus Vaccine Quadrival (Flulaval Quad Syringe) 0.5 ml ONCE ONCE VAX IM 07/17/21 09:00 07/17/21 09:01 DC 07/17/21 10:00 Acetaminophen (Tylenol) 650 mg PRN Q6HRS PRN PO PAIN/FEVER 07/16/21 22:45 UNV Metformin HCl (Glucophage) 1,000 mg BIDWMEALS PO 07/17/21 08:00 07/27/21 17:03 Nystatin (Mycostatin) 1 sulma PRN BID PRN TP RASH 07/16/21 22:45 Quetiapine Fumarate (SEROquel) 50 mg BID PO 07/17/21 09:00 07/18/21 10:56 DC 07/18/21 08:21 Trazodone HCl (Desyrel) 50 mg QHS PO 07/17/21 21:00 07/27/21 20:29 Non-Formulary Medication (Albuterol Sulfate (Albuterol Sulfate Neb Soln)) 1 vial QID PRN NEB SHORTNESS OF AIR 07/16/21 22:45 UNV Non-Formulary Medication (Insulin Aspart (Insulin Aspart Flexpen)) 100 unit PRN AFTMEALHC PRN SQ ELEVATED BLOOD SUGAR 07/16/21 22:45 UNV Acetaminophen (Tylenol) 650 mg PRN Q6HRS PRN PO MILD PAIN / TEMP > 100.3'F 07/16/21 22:45 07/18/21 16:50 Multi-Ingredient Ointment (Analgesic [place]) 1 sulma PRN QID PRN TP MUSCLE PAIN 07/16/21 22:45 Al Hydroxide/Mg Hydroxide (Mylanta Plus Xs) 15 ml PRN AFTMEALHC PRN PO DYSPEPSIA 07/16/21 22:45 Magnesium Hydroxide (Milk Of Magnesia) 2,400 mg PRN QHS PRN PO CONSTIPATION 07/16/21 22:45 Albuterol Sulfate (Ventolin) 2.5 mg PRN Q6HRS PRN NEB SHORTNESS OF BREATH 07/16/21 23:00 07/17/21 06:25 DC Insulin Human Lispro (HumaLOG) 0-5 UNITS TIDWMEALS SQ 07/17/21 08:00 07/27/21 17:06 Dextrose (Dextrose 50%-Water Syringe) 12.5 gm PRN Q15MIN PRN IV SEE COMMENTS 07/17/21 00:15 Albuterol Sulfate (Ventolin Hfa Inhaler) 1 puff PRN Q6HRS PRN INH SHORTNESS OF BREATH 07/17/21 06:30 Risperidone (RisperDAL) 0.5 mg HS PO 07/18/21 21:00 07/21/21 19:40 DC 07/20/21 20:18 Olanzapine (ZyPREXA ZYDIS) 2.5 mg PRN Q2HR PRN PO PSYCHOSIS 07/18/21 18:15 07/27/21 14:47 Divalproex Sodium (Depakote Sprinkles) 125 mg BID@0900,1700 PO 07/21/21 09:00 07/25/21 01:54 DC 07/24/21 17:08 Risperidone (RisperDAL) 1 mg HS PO 07/21/21 21:00 07/27/21 20:29 Trazodone HCl (Desyrel) 50 mg PRN QHS PRN PO INSOMNIA 07/21/21 19:45 07/27/21 22:15 Mirtazapine (Remeron) 7.5 mg QHS PO 07/21/21 21:00 07/22/21 19:52 DC 07/21/21 20:04 Mirtazapine (Remeron) 15 mg QHS PO 07/22/21 21:00 07/27/21 20:29 Melatonin (Melatonin) 3 mg QHS PO 07/22/21 21:00 07/23/21 20:00 DC 07/22/21 20:21 Melatonin (Melatonin) 4.5 mg QHS PO 07/23/21 21:00 07/27/21 20:29 Divalproex Sodium (Depakote Sprinkles) 250 mg BID@0900,1700 PO 07/25/21 09:00 07/27/21 17:03 Nystatin (Nystop) 1 sulma BID TP 07/27/21 21:00 07/27/21 20:29 Current Medications Medications (Trade) Dose Ordered Sig/Richard Route PRN Reason Start Time Stop Time Status Last Admin Dose Admin Nystatin (Nystop) 1 sulma BID TP 07/27/21 21:00 07/27/21 20:29 I have reviewed the current psychotropics carefully including drug interactions. Risk benefit ratio favors no change other than as noted in my dictated progress note. 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
--- NOTE | 2021-07-28 07:51 | PDOC ---
Exam Note: [place] Note: This note is a late entry for 07/27/2021 covers elements not covered in my initial note. Subjective: The patient was seen individually in the evening of 07/27/2021 with Miriam TANG, discussed and reviewed the chart. The patient slept 6-1/4 hours previous night. The patient remains confused. Previous night, she was quite delusional. Today, talking about a brown lady pulling her skin off, somewhat bizarre. She was calmer in the morning, around lunch time she was yelling, screaming. I met with her in her room. Review of Systems: Ambulation impaired in wheelchair. No CV, , pulmonary, eye, ENT system symptoms on review. Mental Status Exam: The patient is oriented to herself. As I was in her room she dropped her towel on the floor and then insisted I pick it up for her which I did and was quite appreciative. Insight and judgment, recent and remote memory, attention and concentration, fund of knowledge is poor consistent with her diagnosis. Laboratory Data: Reviewed. Impression: Major neurocognitive disorder Alzheimer, vascular, with delusions, depression, behavioral disturbance. Anxiety disorder unspecified. Impulse control disorder unspecified. Plan: Continue current psychotropics. Adjust as clinically indicated. Assessment: Vital Signs/I&O: Vital Signs Date Time Temp Pulse Resp B/P (MAP) Pulse Ox O2 Delivery O2 Flow Rate FiO2 07/28/21 05:49 96.9 90 18 95/62 (73) 94 Room Air I & O 07/27/21 07/27/21 07/28/21 15:00 23:00 07:00 Intake Total 960 ml 480 ml Balance 960 ml 480 ml Labs: Laboratory Tests Test 07/27/21 11:25 07/27/21 16:44 07/27/21 19:11 Glucose (Fingerstick) 118 mg/dL (70-99) H 174 mg/dL (70-99) H 127 mg/dL (70-99) H Current Medications: Meds: Laboratory Tests Test 07/27/21 11:25 07/27/21 16:44 07/27/21 19:11 Glucose (Fingerstick) 118 mg/dL 174 mg/dL 127 mg/dL Current Medications Medications (Trade) Dose Ordered Sig/Richard Route PRN Reason Start Time Stop Time Status Last Admin Dose Admin Influenza Virus Vaccine Quadrival (Flulaval Quad [id number] Syringe) 0.5 ml ONCE ONCE VAX IM 07/17/21 09:00 07/17/21 09:01 DC 07/17/21 10:00 Acetaminophen (Tylenol) 650 mg PRN Q6HRS PRN PO PAIN/FEVER 07/16/21 22:45 UNV Metformin HCl (Glucophage) 1,000 mg BIDWMEALS PO 07/17/21 08:00 07/27/21 17:03 Nystatin (Mycostatin) 1 sulma PRN BID PRN TP RASH 07/16/21 22:45 Quetiapine Fumarate (SEROquel) 50 mg BID PO 07/17/21 09:00 07/18/21 10:56 DC 07/18/21 08:21 Trazodone HCl (Desyrel) 50 mg QHS PO 07/17/21 21:00 07/27/21 20:29 Non-Formulary Medication (Albuterol Sulfate (Albuterol Sulfate Neb Soln)) 1 vial QID PRN NEB SHORTNESS OF AIR 07/16/21 22:45 UNV Non-Formulary Medication (Insulin Aspart (Insulin Aspart Flexpen)) 100 unit PRN AFTMEALHC PRN SQ ELEVATED BLOOD SUGAR 07/16/21 22:45 UNV Acetaminophen (Tylenol) 650 mg PRN Q6HRS PRN PO MILD PAIN / TEMP > 100.3'F 07/16/21 22:45 07/18/21 16:50 Multi-Ingredient Ointment (Analgesic [place]) 1 sulma PRN QID PRN TP MUSCLE PAIN 07/16/21 22:45 Al Hydroxide/Mg Hydroxide (Mylanta Plus Xs) 15 ml PRN AFTMEALHC PRN PO DYSPEPSIA 07/16/21 22:45 Magnesium Hydroxide (Milk Of Magnesia) 2,400 mg PRN QHS PRN PO CONSTIPATION 07/16/21 22:45 Albuterol Sulfate (Ventolin) 2.5 mg PRN Q6HRS PRN NEB SHORTNESS OF BREATH 07/16/21 23:00 07/17/21 06:25 DC Insulin Human Lispro (HumaLOG) 0-5 UNITS TIDWMEALS SQ 07/17/21 08:00 07/27/21 17:06 Dextrose (Dextrose 50%-Water Syringe) 12.5 gm PRN Q15MIN PRN IV SEE COMMENTS 07/17/21 00:15 Albuterol Sulfate (Ventolin Hfa Inhaler) 1 puff PRN Q6HRS PRN INH SHORTNESS OF BREATH 07/17/21 06:30 Risperidone (RisperDAL) 0.5 mg HS PO 07/18/21 21:00 07/21/21 19:40 DC 07/20/21 20:18 Olanzapine (ZyPREXA ZYDIS) 2.5 mg PRN Q2HR PRN PO PSYCHOSIS 07/18/21 18:15 07/27/21 14:47 Divalproex Sodium (Depakote Sprinkles) 125 mg BID@0900,1700 PO 07/21/21 09:00 07/25/21 01:54 DC 07/24/21 17:08 Risperidone (RisperDAL) 1 mg HS PO 07/21/21 21:00 07/27/21 20:29 Trazodone HCl (Desyrel) 50 mg PRN QHS PRN PO INSOMNIA 07/21/21 19:45 07/27/21 22:15 Mirtazapine (Remeron) 7.5 mg QHS PO 07/21/21 21:00 07/22/21 19:52 DC 07/21/21 20:04 Mirtazapine (Remeron) 15 mg QHS PO 07/22/21 21:00 07/27/21 20:29 Melatonin (Melatonin) 3 mg QHS PO 07/22/21 21:00 07/23/21 20:00 DC 07/22/21 20:21 Melatonin (Melatonin) 4.5 mg QHS PO 07/23/21 21:00 07/27/21 20:29 Divalproex Sodium (Depakote Sprinkles) 250 mg BID@0900,1700 PO 07/25/21 09:00 07/27/21 17:03 Nystatin (Nystop) 1 sulma BID TP 07/27/21 21:00 07/27/21 20:29 Current Medications Medications (Trade) Dose Ordered Sig/Rcihard Route PRN Reason Start Time Stop Time Status Last Admin Dose Admin Nystatin (Nystop) 1 sulma BID TP 07/27/21 21:00 07/27/21 20:29 I have reviewed the current psychotropics carefully including drug interactions. Risk benefit ratio favors no change other than as noted in my dictated progress note. Diagnosis: Problems: (1) Impulse control disorder, unspecified (2) Anxiety disorder, unspecified (3) Dementia, vascular, with depression (4) Dementia, vascular, with delusions (5) Dementia in Alzheimer's disease with depression (6) Dementia in Alzheimer's disease with delusions (7) Dementia of the Alzheimer's type with early onset with behavioral disturbance (8) Major neurocognitive disorder SOO BAIRES MD Jul 28, 2021 07:51
[2021-07-28] MEDS: INSULIN LISPRO 300 UNITS/3 ML VIAL. SQ SCH ×3 (07:57→17:00)
[2021-07-28] MEDS: metFORMIN 500 MG TABLET PO SCH ×2 (08:12→17:07)
[2021-07-28] MEDS: DIVALPROEX 125 MG CAP.SPRINK PO SCH ×2 (08:13→17:07)
[2021-07-28 08:14] LABS: ALBUMIN 2.6 g/dL (3.4-5.0); ALBUMIN/GLOBULIN RATIO 0.6 (1.0-1.7); ALK PHOS 113 U/L (46-116); ALT (SGPT) 25 U/L (14-59); ANION GAP 10 (6-14); AST (SGOT) 22 U/L (15-37); BLOOD UREA NITROGEN 30 mg/dL (7-20); BUN/CREATININE RATIO 33 (6-20); CALCIUM 8.6 mg/dL (8.5-10.1); CARBON DIOXIDE 25 mmol/L (21-32); CHLORIDE 104 mmol/L (98-107); CREATININE 0.9 mg/dL (0.6-1.0); GFR 59.7; GLUCOSE 108 mg/dL (70-99); POTASSIUM 4.6 mmol/L (3.5-5.1); SODIUM 139 mmol/L (136-145); TOTAL BILIRUBIN 0.2 mg/dL (0.2-1.0); TOTAL PROTEIN 6.9 g/dL (6.4-8.2)
[2021-07-28] MEDS: NYSTATIN TOPICAL POWDER 15GM BOTTLE. TP SCH ×2 (08:14→20:11)
[2021-07-28 08:19] LABS: BASO % 1 % (0-3); EOS # 0.2 x10^3/uL (0.0-0.7); EOS % 3 % (0-3); HEMATOCRIT 33.9 % (36.0-47.0); HEMOGLOBIN 10.8 g/dL (12.0-15.5); LYMPH # 2.6 x10^3/uL (1.0-4.8); LYMPH % 33 % (24-48); MEAN CORPUSCULAR HEMOGLOBIN 27 pg (25-35); MEAN CORPUSCULAR HGB CONC 32 g/dL (31-37); MEAN CORPUSCULAR VOLUME 85 fL (79-100); MONO # 0.5 x10^3/uL (0.0-1.1); MONO % 6 % (0-9); NEUT # 4.4 x10^3uL (1.8-7.7); NEUT % 57 % (31-73); PLATELET COUNT 190 x10^3/uL (140-400); RED BLOOD COUNT 3.98 x10^6/uL (3.50-5.40); RED CELL DISTRIBUTION WIDTH 14.9 % (11.5-14.5); WHITE BLOOD COUNT 7.7 x10^3/uL (4.0-11.0)
[2021-07-28 08:21] LABS: VAL ACID 44 mcg/mL (50-100)
--- NOTE | 2021-07-28 09:01 | NUR ---
Pt begins the morning in a disorganized and delusional state. She is observed to be completely alone in her room talking to "Pallavi" or "Rosey," and at one point actually begins to argue and swear at this entity. She has also displayed a few occasions of yelling "oh God" randomly and intermittently. During breakfast she was absent of disruptive behaviors. She is A&O to self only, absent of SI/HI behaviors or statements. She is compliant with whole medications and displays an adequate appetite during breakfast. Morning insulin held d/t blood sugar 106. Plan of care continues, will pass to next shift.
[2021-07-28 14:55] VITALS: BP 125/79
[2021-07-28] MEDS: traZODone 50 MG TABLET. PO SCH (20:10)
[2021-07-28] MEDS: MIRTAZAPINE 15 MG TABLET PO SCH (20:10)
[2021-07-28] MEDS: risperiDONE 1 MG TABLET. PO SCH (20:11)
[2021-07-28] MEDS: MELATONIN 3 MG TABLET PO SCH (20:11)
--- NOTE | 2021-07-28 20:49 | PDOC ---
Exam Note: Troy Note: Please also refer to the separate dictated note~for this date of service dictated separately.~Patient seen individually. Discussed the patient with Nursing staff reviewed the chart.~Reviewed interim history and current functioning. Reviewed vital signs,~Labs/ Radiology~and current medications noted below. Continue current treatment with the changes noted in the dictated addendum note Assessment: Vital Signs/I&O: Vital Signs Date Time Temp Pulse Resp B/P (MAP) Pulse Ox O2 Delivery O2 Flow Rate FiO2 07/28/21 14:55 97.6 82 18 125/79 (94) 97 07/28/21 05:49 Room Air I & O 07/27/21 07/27/21 07/28/21 15:00 23:00 07:00 Intake Total 960 ml 480 ml Balance 960 ml 480 ml Labs: Laboratory Tests Test 07/28/21 07:45 07/28/21 07:52 07/28/21 11:27 07/28/21 17:02 White Blood Count 7.7 x10^3/uL (4.0-11.0) Red Blood Count 3.98 x10^6/uL (3.50-5.40) Hemoglobin 10.8 g/dL (12.0-15.5) L Hematocrit 33.9 % (36.0-47.0) L Mean Corpuscular Volume 85 fL (79-100) Mean Corpuscular Hemoglobin 27 pg (25-35) Mean Corpuscular Hemoglobin Concent 32 g/dL (31-37) Red Cell Distribution Width 14.9 % (11.5-14.5) H Platelet Count 190 x10^3/uL (140-400) Neutrophils (%) (Auto) 57 % (31-73) Lymphocytes (%) (Auto) 33 % (24-48) Monocytes (%) (Auto) 6 % (0-9) Eosinophils (%) (Auto) 3 % (0-3) Basophils (%) (Auto) 1 % (0-3) Neutrophils # (Auto) 4.4 x10^3uL (1.8-7.7) Lymphocytes # (Auto) 2.6 x10^3/uL (1.0-4.8) Monocytes # (Auto) 0.5 x10^3/uL (0.0-1.1) Eosinophils # (Auto) 0.2 x10^3/uL (0.0-0.7) Basophils # (Auto) 0.0 x10^3/uL (0.0-0.2) Sodium Level 139 mmol/L (136-145) Potassium Level 4.6 mmol/L (3.5-5.1) Chloride Level 104 mmol/L (98-107) Carbon Dioxide Level 25 mmol/L (21-32) Anion Gap 10 (6-14) Blood Urea Nitrogen 30 mg/dL (7-20) H Creatinine 0.9 mg/dL (0.6-1.0) Estimated GFR (Cockcroft-Gault) 59.7 BUN/Creatinine Ratio 33 (6-20) H Glucose Level 108 mg/dL (70-99) H Calcium Level 8.6 mg/dL (8.5-10.1) Total Bilirubin 0.2 mg/dL (0.2-1.0) Aspartate Amino Transferase (AST) 22 U/L (15-37) Alanine Aminotransferase (ALT) 25 U/L (14-59) Alkaline Phosphatase 113 U/L (46-116) Ammonia < 10 mcmol/L (11-34) L Total Protein 6.9 g/dL (6.4-8.2) Albumin 2.6 g/dL (3.4-5.0) L Albumin/Globulin Ratio 0.6 (1.0-1.7) L Valproic Acid Level 44 mcg/mL (50-100) L Valproic Acid Last Dose Date 07/27/21 Valproic Acid Last Dose Time 2100 Glucose (Fingerstick) 106 mg/dL (70-99) H 140 mg/dL (70-99) H 109 mg/dL (70-99) H Test 07/28/21 18:59 Glucose (Fingerstick) 103 mg/dL (70-99) H Current Medications: Meds: Laboratory Tests Test 07/28/21 07:45 07/28/21 07:52 07/28/21 11:27 07/28/21 17:02 White Blood Count 7.7 x10^3/uL Red Blood Count 3.98 x10^6/uL Hemoglobin 10.8 g/dL Hematocrit 33.9 % Mean Corpuscular Volume 85 fL Mean Corpuscular Hemoglobin 27 pg Mean Corpuscular Hemoglobin Concent 32 g/dL Red Cell Distribution Width 14.9 % Platelet Count 190 x10^3/uL Neutrophils (%) (Auto) 57 % Lymphocytes (%) (Auto) 33 % Monocytes (%) (Auto) 6 % Eosinophils (%) (Auto) 3 % Basophils (%) (Auto) 1 % Neutrophils # (Auto) 4.4 x10^3uL Lymphocytes # (Auto) 2.6 x10^3/uL Monocytes # (Auto) 0.5 x10^3/uL Eosinophils # (Auto) 0.2 x10^3/uL Basophils # (Auto) 0.0 x10^3/uL Sodium Level 139 mmol/L Potassium Level 4.6 mmol/L Chloride Level 104 mmol/L Carbon Dioxide Level 25 mmol/L Anion Gap 10 Blood Urea Nitrogen 30 mg/dL Creatinine 0.9 mg/dL Estimated GFR (Cockcroft-Gault) 59.7 BUN/Creatinine Ratio 33 Glucose Level 108 mg/dL Calcium Level 8.6 mg/dL Total Bilirubin 0.2 mg/dL Aspartate Amino Transf (AST/SGOT) 22 U/L Alanine Aminotransferase (ALT/SGPT) 25 U/L Alkaline Phosphatase 113 U/L Ammonia < 10 mcmol/L Total Protein 6.9 g/dL Albumin 2.6 g/dL Albumin/Globulin Ratio 0.6 Valproic Acid (Depakene) Level 44 mcg/mL Valproic Acid Last Dose Date 07/27/21 Valproic Acid Last Dose Time 2100 Glucose (Fingerstick) 106 mg/dL 140 mg/dL 109 mg/dL Test 07/28/21 18:59 Glucose (Fingerstick) 103 mg/dL Current Medications Medications (Trade) Dose Ordered Sig/Richard Route PRN Reason Start Time Stop Time Status Last Admin Dose Admin Influenza Virus Vaccine Quadrival (Flulaval Quad [id number] Syringe) 0.5 ml ONCE ONCE VAX IM 07/17/21 09:00 07/17/21 09:01 DC 07/17/21 10:00 Acetaminophen (Tylenol) 650 mg PRN Q6HRS PRN PO PAIN/FEVER 07/16/21 22:45 UNV Metformin HCl (Glucophage) 1,000 mg BIDWMEALS PO 07/17/21 08:00 07/28/21 17:07 Nystatin (Mycostatin) 1 sulma PRN BID PRN TP RASH 07/16/21 22:45 Quetiapine Fumarate (SEROquel) 50 mg BID PO 07/17/21 09:00 07/18/21 10:56 DC 07/18/21 08:21 Trazodone HCl (Desyrel) 50 mg QHS PO 07/17/21 21:00 07/28/21 20:10 Non-Formulary Medication (Albuterol Sulfate (Albuterol Sulfate Neb Soln)) 1 vial QID PRN NEB SHORTNESS OF AIR 07/16/21 22:45 UNV Non-Formulary Medication (Insulin Aspart (Insulin Aspart Flexpen)) 100 unit PRN AFTMEALHC PRN SQ ELEVATED BLOOD SUGAR 07/16/21 22:45 UNV Acetaminophen (Tylenol) 650 mg PRN Q6HRS PRN PO MILD PAIN / TEMP > 100.3'F 07/16/21 22:45 07/18/21 16:50 Multi-Ingredient Ointment (Analgesic [place]) 1 sulma PRN QID PRN TP MUSCLE PAIN 07/16/21 22:45 Al Hydroxide/Mg Hydroxide (Mylanta Plus Xs) 15 ml PRN AFTMEALHC PRN PO DYSPEPSIA 07/16/21 22:45 Magnesium Hydroxide (Milk Of Magnesia) 2,400 mg PRN QHS PRN PO CONSTIPATION 07/16/21 22:45 Albuterol Sulfate (Ventolin) 2.5 mg PRN Q6HRS PRN NEB SHORTNESS OF BREATH 07/16/21 23:00 07/17/21 06:25 DC Insulin Human Lispro (HumaLOG) 0-5 UNITS TIDWMEALS SQ 07/17/21 08:00 07/27/21 17:06 Dextrose (Dextrose 50%-Water Syringe) 12.5 gm PRN Q15MIN PRN IV SEE COMMENTS 07/17/21 00:15 Albuterol Sulfate (Ventolin Hfa Inhaler) 1 puff PRN Q6HRS PRN INH SHORTNESS OF BREATH 07/17/21 06:30 Risperidone (RisperDAL) 0.5 mg HS PO 07/18/21 21:00 07/21/21 19:40 DC 07/20/21 20:18 Olanzapine (ZyPREXA ZYDIS) 2.5 mg PRN Q2HR PRN PO PSYCHOSIS 07/18/21 18:15 07/28/21 20:13 Divalproex Sodium (Depakote Sprinkles) 125 mg BID@0900,1700 PO 07/21/21 09:00 07/25/21 01:54 DC 07/24/21 17:08 Risperidone (RisperDAL) 1 mg HS PO 07/21/21 21:00 07/28/21 20:11 Trazodone HCl (Desyrel) 50 mg PRN QHS PRN PO INSOMNIA 07/21/21 19:45 07/27/21 22:15 Mirtazapine (Remeron) 7.5 mg QHS PO 07/21/21 21:00 07/22/21 19:52 DC 07/21/21 20:04 Mirtazapine (Remeron) 15 mg QHS PO 07/22/21 21:00 07/28/21 20:10 Melatonin (Melatonin) 3 mg QHS PO 07/22/21 21:00 07/23/21 20:00 DC 07/22/21 20:21 Melatonin (Melatonin) 4.5 mg QHS PO 07/23/21 21:00 07/28/21 20:11 Divalproex Sodium (Depakote Sprinkles) 250 mg BID@0900,1700 PO 07/25/21 09:00 07/28/21 19:57 DC 07/28/21 17:07 Nystatin (Nystop) 1 sulma BID TP 07/27/21 21:00 07/28/21 20:11 Divalproex Sodium (Depakote Sprinkles) 375 mg BID@0900,1700 PO 07/29/21 09:00 Current Medications Medications (Trade) Dose Ordered Sig/Richard Route PRN Reason Start Time Stop Time Status Last Admin Dose Admin Nystatin (Nystop) 1 sulma BID TP 07/27/21 21:00 07/28/21 20:11 I have reviewed the current psychotropics carefully including drug interactions. Risk benefit ratio favors no change other than as noted in my dictated progress note. Diagnosis: Problems: (1) Impulse control disorder, unspecified (2) Anxiety disorder, unspecified (3) Dementia, vascular, with depression (4) Dementia, vascular, with delusions (5) Dementia in Alzheimer's disease with depression (6) Dementia in Alzheimer's disease with delusions (7) Dementia of the Alzheimer's type with early onset with behavioral disturbance (8) Major neurocognitive disorder SOO BAIRES MD Jul 28, 2021 20:49
--- NOTE | 2021-07-28 23:40 | NUR ---
Pt located in her room this evening. Pt hallucinating and yelling intermittently. Compliant with whole medications. Pt currently sleeping in bed.
[2021-07-29] MEDS: ACETAMINOPHEN 325 MG TABLET PO PRN (02:12)
--- NOTE | 2021-07-29 03:57 | NUR ---
Pt awake throughout the night yelling out and calling for Анна. PRNs not effective. Pt currently awake in bed yelling.
[2021-07-29 05:56] VITALS: BP 104/59
--- NOTE | 2021-07-29 06:33 | PDOC ---
Exam Note: Troy Note: This note is a late entry for 07/28/2021 covers elements not covered in my initial note. Subjective: The patient was seen individually in the evening of 07/28/2021 with Nahomi TANG, discussed and reviewed the chart. The patient slept 6 hours previous night with repeat trazodone. She was quit delusional last evening feeling she had a job here. 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 She was yelling, anxious and labile in her mood, paranoid, psychotic. Valproic acid level today is 44. I met with her in her room. Review of Systems: Ambulation impaired in wheelchair. No CV, , pulmonary, eye, ENT system symptoms on review. Mental Status Exam: The patient is oriented to herself. Insight and judgment, recent and remote memory, attention and concentration, fund of knowledge is poor consistent with her diagnosis. Laboratory Data: Reviewed. Impression: Major neurocognitive disorder Alzheimer, vascular, with delusions, depression, behavioral disturbance. Anxiety disorder unspecified. Impulse control disorder unspecified. Plan: Increase Depakote Sprinkle from 250 mg b.i.d. to 375 mg b.i.d. Check CBC, CMP, valproic acid level, ammonia level in 3 days. Continue rest of the psychotropics unchanged. Assessment: Vital Signs/I&O: Vital Signs Date Time Temp Pulse Resp B/P (MAP) Pulse Ox O2 Delivery O2 Flow Rate FiO2 07/29/21 05:56 96.9 86 18 104/59 (74) 92 07/28/21 05:49 Room Air I & O 07/28/21 07/28/21 07/29/21 15:00 23:00 07:00 Intake Total 480 ml 360 ml Balance 480 ml 360 ml Labs: Laboratory Tests Test 07/28/21 07:45 07/28/21 07:52 07/28/21 11:27 07/28/21 17:02 White Blood Count 7.7 x10^3/uL (4.0-11.0) Red Blood Count 3.98 x10^6/uL (3.50-5.40) Hemoglobin 10.8 g/dL (12.0-15.5) L Hematocrit 33.9 % (36.0-47.0) L Mean Corpuscular Volume 85 fL (79-100) Mean Corpuscular Hemoglobin 27 pg (25-35) Mean Corpuscular Hemoglobin Concent 32 g/dL (31-37) Red Cell Distribution Width 14.9 % (11.5-14.5) H Platelet Count 190 x10^3/uL (140-400) Neutrophils (%) (Auto) 57 % (31-73) Lymphocytes (%) (Auto) 33 % (24-48) Monocytes (%) (Auto) 6 % (0-9) Eosinophils (%) (Auto) 3 % (0-3) Basophils (%) (Auto) 1 % (0-3) Neutrophils # (Auto) 4.4 x10^3uL (1.8-7.7) Lymphocytes # (Auto) 2.6 x10^3/uL (1.0-4.8) Monocytes # (Auto) 0.5 x10^3/uL (0.0-1.1) Eosinophils # (Auto) 0.2 x10^3/uL (0.0-0.7) Basophils # (Auto) 0.0 x10^3/uL (0.0-0.2) Sodium Level 139 mmol/L (136-145) Potassium Level 4.6 mmol/L (3.5-5.1) Chloride Level 104 mmol/L (98-107) Carbon Dioxide Level 25 mmol/L (21-32) Anion Gap 10 (6-14) Blood Urea Nitrogen 30 mg/dL (7-20) H Creatinine 0.9 mg/dL (0.6-1.0) Estimated GFR (Cockcroft-Gault) 59.7 BUN/Creatinine Ratio 33 (6-20) H Glucose Level 108 mg/dL (70-99) H Calcium Level 8.6 mg/dL (8.5-10.1) Total Bilirubin 0.2 mg/dL (0.2-1.0) Aspartate Amino Transferase (AST) 22 U/L (15-37) Alanine Aminotransferase (ALT) 25 U/L (14-59) Alkaline Phosphatase 113 U/L (46-116) Ammonia < 10 mcmol/L (11-34) L Total Protein 6.9 g/dL (6.4-8.2) Albumin 2.6 g/dL (3.4-5.0) L Albumin/Globulin Ratio 0.6 (1.0-1.7) L Valproic Acid Level 44 mcg/mL (50-100) L Valproic Acid Last Dose Date 07/27/21 Valproic Acid Last Dose Time 2100 Glucose (Fingerstick) 106 mg/dL (70-99) H 140 mg/dL (70-99) H 109 mg/dL (70-99) H Test 07/28/21 18:59 Glucose (Fingerstick) 103 mg/dL (70-99) H Current Medications: Meds: Laboratory Tests Test 07/28/21 07:45 07/28/21 07:52 07/28/21 11:27 07/28/21 17:02 White Blood Count 7.7 x10^3/uL Red Blood Count 3.98 x10^6/uL Hemoglobin 10.8 g/dL Hematocrit 33.9 % Mean Corpuscular Volume 85 fL Mean Corpuscular Hemoglobin 27 pg Mean Corpuscular Hemoglobin Concent 32 g/dL Red Cell Distribution Width 14.9 % Platelet Count 190 x10^3/uL Neutrophils (%) (Auto) 57 % Lymphocytes (%) (Auto) 33 % Monocytes (%) (Auto) 6 % Eosinophils (%) (Auto) 3 % Basophils (%) (Auto) 1 % Neutrophils # (Auto) 4.4 x10^3uL Lymphocytes # (Auto) 2.6 x10^3/uL Monocytes # (Auto) 0.5 x10^3/uL Eosinophils # (Auto) 0.2 x10^3/uL Basophils # (Auto) 0.0 x10^3/uL Sodium Level 139 mmol/L Potassium Level 4.6 mmol/L Chloride Level 104 mmol/L Carbon Dioxide Level 25 mmol/L Anion Gap 10 Blood Urea Nitrogen 30 mg/dL Creatinine 0.9 mg/dL Estimated GFR (Cockcroft-Gault) 59.7 BUN/Creatinine Ratio 33 Glucose Level 108 mg/dL Calcium Level 8.6 mg/dL Total Bilirubin 0.2 mg/dL Aspartate Amino Transf (AST/SGOT) 22 U/L Alanine Aminotransferase (ALT/SGPT) 25 U/L Alkaline Phosphatase 113 U/L Ammonia < 10 mcmol/L Total Protein 6.9 g/dL Albumin 2.6 g/dL Albumin/Globulin Ratio 0.6 Valproic Acid (Depakene) Level 44 mcg/mL Valproic Acid Last Dose Date 07/27/21 Valproic Acid Last Dose Time 2100 Glucose (Fingerstick) 106 mg/dL 140 mg/dL 109 mg/dL Test 07/28/21 18:59 Glucose (Fingerstick) 103 mg/dL Current Medications Medications (Trade) Dose Ordered Sig/Richard Route PRN Reason Start Time Stop Time Status Last Admin Dose Admin Influenza Virus Vaccine Quadrival (Flulaval Quad Syringe) 0.5 ml ONCE ONCE VAX IM 07/17/21 09:00 07/17/21 09:01 DC 07/17/21 10:00 Acetaminophen (Tylenol) 650 mg PRN Q6HRS PRN PO PAIN/FEVER 07/16/21 22:45 UNV Metformin HCl (Glucophage) 1,000 mg BIDWMEALS PO 07/17/21 08:00 07/28/21 17:07 Nystatin (Mycostatin) 1 sulma PRN BID PRN TP RASH 07/16/21 22:45 Quetiapine Fumarate (SEROquel) 50 mg BID PO 07/17/21 09:00 07/18/21 10:56 DC 07/18/21 08:21 Trazodone HCl (Desyrel) 50 mg QHS PO 07/17/21 21:00 07/28/21 20:10 Non-Formulary Medication (Albuterol Sulfate (Albuterol Sulfate Neb Soln)) 1 vial QID PRN NEB SHORTNESS OF AIR 07/16/21 22:45 UNV Non-Formulary Medication (Insulin Aspart (Insulin Aspart Flexpen)) 100 unit PRN AFTMEALHC PRN SQ ELEVATED BLOOD SUGAR 07/16/21 22:45 UNV Acetaminophen (Tylenol) 650 mg PRN Q6HRS PRN PO MILD PAIN / TEMP > 100.3'F 07/16/21 22:45 07/29/21 02:12 Multi-Ingredient Ointment (Analgesic [place]) 1 sulma PRN QID PRN TP MUSCLE PAIN 07/16/21 22:45 Al Hydroxide/Mg Hydroxide (Mylanta Plus Xs) 15 ml PRN AFTMEALHC PRN PO DYSPEPSIA 07/16/21 22:45 Magnesium Hydroxide (Milk Of Magnesia) 2,400 mg PRN QHS PRN PO CONSTIPATION 07/16/21 22:45 Albuterol Sulfate (Ventolin) 2.5 mg PRN Q6HRS PRN NEB SHORTNESS OF BREATH 07/16/21 23:00 07/17/21 06:25 DC Insulin Human Lispro (HumaLOG) 0-5 UNITS TIDWMEALS SQ 07/17/21 08:00 07/27/21 17:06 Dextrose (Dextrose 50%-Water Syringe) 12.5 gm PRN Q15MIN PRN IV SEE COMMENTS 07/17/21 00:15 Albuterol Sulfate (Ventolin Hfa Inhaler) 1 puff PRN Q6HRS PRN INH SHORTNESS OF BREATH 07/17/21 06:30 Risperidone (RisperDAL) 0.5 mg HS PO 07/18/21 21:00 07/21/21 19:40 DC 07/20/21 20:18 Olanzapine (ZyPREXA ZYDIS) 2.5 mg PRN Q2HR PRN PO PSYCHOSIS 07/18/21 18:15 07/29/21 02:12 Divalproex Sodium (Depakote Sprinkles) 125 mg BID@0900,1700 PO 07/21/21 09:00 07/25/21 01:54 DC 07/24/21 17:08 Risperidone (RisperDAL) 1 mg HS PO 07/21/21 21:00 07/28/21 20:11 Trazodone HCl (Desyrel) 50 mg PRN QHS PRN PO INSOMNIA 07/21/21 19:45 07/27/21 22:15 Mirtazapine (Remeron) 7.5 mg QHS PO 07/21/21 21:00 07/22/21 19:52 DC 07/21/21 20:04 Mirtazapine (Remeron) 15 mg QHS PO 07/22/21 21:00 07/28/21 20:10 Melatonin (Melatonin) 3 mg QHS PO 07/22/21 21:00 07/23/21 20:00 DC 07/22/21 20:21 Melatonin (Melatonin) 4.5 mg QHS PO 07/23/21 21:00 07/28/21 20:11 Divalproex Sodium (Depakote Sprinkles) 250 mg BID@0900,1700 PO 07/25/21 09:00 07/28/21 19:57 DC 07/28/21 17:07 Nystatin (Nystop) 1 sulma BID TP 07/27/21 21:00 07/28/21 20:11 Divalproex Sodium (Depakote Sprinkles) 375 mg BID@0900,1700 PO 07/29/21 09:00 I have reviewed the current psychotropics carefully including drug interactions. Risk benefit ratio favors no change other than as noted in my dictated progress note. Diagnosis: Problems: (1) Impulse control disorder, unspecified (2) Anxiety disorder, unspecified (3) Dementia, vascular, with depression (4) Dementia, vascular, with delusions (5) Dementia in Alzheimer's disease with depression (6) Dementia in Alzheimer's disease with delusions (7) Dementia of the Alzheimer's type with early onset with behavioral disturbance (8) Major neurocognitive disorder SOO BAIRES MD Jul 29, 2021 06:33
[2021-07-29] MEDS: INSULIN LISPRO 300 UNITS/3 ML VIAL. SQ SCH ×3 (07:47→16:56)
[2021-07-29] MEDS: metFORMIN 500 MG TABLET PO SCH ×2 (08:57→17:14)
[2021-07-29] MEDS: NYSTATIN TOPICAL POWDER 15GM BOTTLE. TP SCH ×2 (08:57→19:53)
[2021-07-29] MEDS: DIVALPROEX 125 MG CAP.SPRINK PO SCH ×2 (08:57→17:14)
--- NOTE | 2021-07-29 11:20 | NUR ---
Nursing note: Pt in her room at time of AM med pass and assessment. Pt had taken her shirt off and turned it inside out and had attempted to put it back on, but she had put her head through the arm hole. Pt was initially resistive with help in placing her shirt back on the correct way, but was eventually appreciative of the help. She was then falling asleep as I was talking to her and getting her AM meds ready and required some encouragement to stay awake, but she was compliant in taking them whole. She denies having any pain at becki of assessment. She occasionally yells out, but is currently sitting quietly in her room. Will continue to monitor.
[2021-07-29 15:40] VITALS: BP 120/63
[2021-07-29] MEDS: traZODone 50 MG TABLET. PO SCH (19:52)
[2021-07-29] MEDS: MELATONIN 3 MG TABLET PO SCH (19:52)
[2021-07-29] MEDS: risperiDONE 1 MG TABLET. PO SCH (19:52)
[2021-07-29] MEDS: risperiDONE 0.25 MG TABLET. PO SCH (19:53)
[2021-07-29] MEDS: MIRTAZAPINE 15 MG TABLET PO SCH (19:53)
--- NOTE | 2021-07-29 21:04 | PDOC ---
Exam Note: Troy Note: Please also refer to the separate dictated note~for this date of service dictated separately.~Patient seen individually. Discussed the patient with Nursing staff reviewed the chart.~Reviewed interim history and current functioning. Reviewed vital signs,~Labs/ Radiology~and current medications noted below. Continue current treatment with the changes noted in the dictated addendum note Assessment: Vital Signs/I&O: Vital Signs Date Time Temp Pulse Resp B/P (MAP) Pulse Ox O2 Delivery O2 Flow Rate FiO2 07/29/21 15:40 97.9 85 20 120/63 (82) 94 07/28/21 05:49 Room Air I & O 07/28/21 07/28/21 07/29/21 15:00 23:00 07:00 Intake Total 480 ml 360 ml Balance 480 ml 360 ml Labs: Laboratory Tests Test 07/29/21 06:05 07/29/21 07:23 07/29/21 12:10 07/29/21 16:41 SARS-CoV-2 (PCR) Not detected (NOT DETECTD) Glucose (Fingerstick) 99 mg/dL (70-99) 108 mg/dL (70-99) H 138 mg/dL (70-99) H Test 07/29/21 19:04 Glucose (Fingerstick) 136 mg/dL (70-99) H Current Medications: Meds: Laboratory Tests Test 07/29/21 06:05 07/29/21 07:23 07/29/21 12:10 07/29/21 16:41 Coronavirus (COVID-19)(PCR) Not detected Glucose (Fingerstick) 99 mg/dL 108 mg/dL 138 mg/dL Test 07/29/21 19:04 Glucose (Fingerstick) 136 mg/dL Current Medications Medications (Trade) Dose Ordered Sig/Richard Route PRN Reason Start Time Stop Time Status Last Admin Dose Admin Influenza Virus Vaccine Quadrival (Flulaval Quad [id number] Syringe) 0.5 ml ONCE ONCE VAX IM 07/17/21 09:00 07/17/21 09:01 DC 07/17/21 10:00 Acetaminophen (Tylenol) 650 mg PRN Q6HRS PRN PO PAIN/FEVER 07/16/21 22:45 UNV Metformin HCl (Glucophage) 1,000 mg BIDWMEALS PO 07/17/21 08:00 07/29/21 17:14 Nystatin (Mycostatin) 1 sulma PRN BID PRN TP RASH 07/16/21 22:45 Quetiapine Fumarate (SEROquel) 50 mg BID PO 07/17/21 09:00 07/18/21 10:56 DC 07/18/21 08:21 Trazodone HCl (Desyrel) 50 mg QHS PO 07/17/21 21:00 07/29/21 19:52 Non-Formulary Medication (Albuterol Sulfate (Albuterol Sulfate Neb Soln)) 1 vial QID PRN NEB SHORTNESS OF AIR 07/16/21 22:45 UNV Non-Formulary Medication (Insulin Aspart (Insulin Aspart Flexpen)) 100 unit PRN AFTMEALHC PRN SQ ELEVATED BLOOD SUGAR 07/16/21 22:45 UNV Acetaminophen (Tylenol) 650 mg PRN Q6HRS PRN PO MILD PAIN / TEMP > 100.3'F 07/16/21 22:45 07/29/21 02:12 Multi-Ingredient Ointment (Analgesic [place]) 1 sulma PRN QID PRN TP MUSCLE PAIN 07/16/21 22:45 Al Hydroxide/Mg Hydroxide (Mylanta Plus Xs) 15 ml PRN AFTMEALHC PRN PO DYSPEPSIA 07/16/21 22:45 Magnesium Hydroxide (Milk Of Magnesia) 2,400 mg PRN QHS PRN PO CONSTIPATION 07/16/21 22:45 Albuterol Sulfate (Ventolin) 2.5 mg PRN Q6HRS PRN NEB SHORTNESS OF BREATH 07/16/21 23:00 07/17/21 06:25 DC Insulin Human Lispro (HumaLOG) 0-5 UNITS TIDWMEALS SQ 07/17/21 08:00 07/27/21 17:06 Dextrose (Dextrose 50%-Water Syringe) 12.5 gm PRN Q15MIN PRN IV SEE COMMENTS 07/17/21 00:15 Albuterol Sulfate (Ventolin Hfa Inhaler) 1 puff PRN Q6HRS PRN INH SHORTNESS OF BREATH 07/17/21 06:30 Risperidone (RisperDAL) 0.5 mg HS PO 07/18/21 21:00 07/21/21 19:40 DC 07/20/21 20:18 Olanzapine (ZyPREXA ZYDIS) 2.5 mg PRN Q2HR PRN PO PSYCHOSIS 07/18/21 18:15 07/29/21 19:54 Divalproex Sodium (Depakote Sprinkles) 125 mg BID@0900,1700 PO 07/21/21 09:00 07/25/21 01:54 DC 07/24/21 17:08 Risperidone (RisperDAL) 1 mg HS PO 07/21/21 21:00 07/29/21 18:23 DC 07/28/21 20:11 Trazodone HCl (Desyrel) 50 mg PRN QHS PRN PO INSOMNIA 07/21/21 19:45 07/27/21 22:15 Mirtazapine (Remeron) 7.5 mg QHS PO 07/21/21 21:00 07/22/21 19:52 DC 07/21/21 20:04 Mirtazapine (Remeron) 15 mg QHS PO 07/22/21 21:00 07/29/21 19:53 Melatonin (Melatonin) 3 mg QHS PO 07/22/21 21:00 07/23/21 20:00 DC 07/22/21 20:21 Melatonin (Melatonin) 4.5 mg QHS PO 07/23/21 21:00 07/29/21 19:52 Divalproex Sodium (Depakote Sprinkles) 250 mg BID@0900,1700 PO 07/25/21 09:00 07/28/21 19:57 DC 07/28/21 17:07 Nystatin (Nystop) 1 sulma BID TP 07/27/21 21:00 07/29/21 19:53 Divalproex Sodium (Depakote Sprinkles) 375 mg BID@0900,1700 PO 07/29/21 09:00 07/29/21 17:14 Risperidone (RisperDAL) 0.25 mg QHS PO 07/29/21 21:00 07/29/21 19:53 Risperidone (RisperDAL) 1 mg QHS PO 07/29/21 21:00 07/29/21 19:52 Current Medications Medications (Trade) Dose Ordered Sig/Richard Route PRN Reason Start Time Stop Time Status Last Admin Dose Admin Divalproex Sodium (Depakote Sprinkles) 375 mg BID@0900,1700 PO 07/29/21 09:00 07/29/21 17:14 Risperidone (RisperDAL) 0.25 mg QHS PO 07/29/21 21:00 07/29/21 19:53 Risperidone (RisperDAL) 1 mg QHS PO 07/29/21 21:00 07/29/21 19:52 I have reviewed the current psychotropics carefully including drug interactions. Risk benefit ratio favors no change other than as noted in my dictated progress note. 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
--- NOTE | 2021-07-29 23:47 | NUR ---
Pt restless and irritable tonight. Pt found in her room with her shirt off. Continues to hallucinate and is delusional. Pt stated that she is going home for [employer]. Pt stated that she is buying small gifts for her parents and is going to bake a cake for her grandfather. Compliant with whole medications.
[2021-07-30] MEDS: traZODone 50 MG TABLET. PO PRN (00:57)
[2021-07-30 06:01] VITALS: BP 96/58
[2021-07-30] MEDS: INSULIN LISPRO 300 UNITS/3 ML VIAL. SQ SCH ×3 (08:00→17:11)
[2021-07-30] MEDS: NYSTATIN TOPICAL POWDER 15GM BOTTLE. TP SCH ×2 (09:00→20:57)
[2021-07-30] MEDS: metFORMIN 500 MG TABLET PO SCH ×2 (09:30→16:34)
[2021-07-30] MEDS: DIVALPROEX 125 MG CAP.SPRINK PO SCH ×2 (09:31→16:34)
--- NOTE | 2021-07-30 15:50 | NUR ---
CHANA spoke with pt DPOA, Анна, to provide update. CHANA informed Анна that pt still shows confusion and disorganization and that medication adjustments will be made as clinically indicated. Анна appreciative of update. CHANA will plan to follow up with Анна after the holiday. CHANA then contacted Nancy at pt facility to provide update. Nancy appreciative of information and plans to pass the information on to the rest of the team at the facility.
[2021-07-30 15:57] VITALS: BP 160/78
--- NOTE | 2021-07-30 20:49 | PDOC ---
Exam Note: [place] Note: Please also refer to the separate dictated note~for this date of service dictated separately.~Patient seen individually. Discussed the patient with Nursing staff reviewed the chart.~Reviewed interim history and current functioning. Reviewed vital signs,~Labs/ Radiology~and current medications noted below. Continue current treatment with the changes noted in the dictated addendum note Assessment: Vital Signs/I&O: Vital Signs Date Time Temp Pulse Resp B/P (MAP) Pulse Ox O2 Delivery O2 Flow Rate FiO2 07/30/21 15:57 97.8 83 18 160/78 (105) 94 07/28/21 05:49 Room Air I & O 07/29/21 07/29/21 07/30/21 14:59 22:59 06:59 Intake Total 600 ml 480 ml 120 ml Balance 600 ml 480 ml 120 ml Labs: Laboratory Tests Test 07/30/21 07:11 07/30/21 12:46 07/30/21 16:53 07/30/21 19:37 Glucose (Fingerstick) 95 mg/dL (70-99) 142 mg/dL (70-99) H 169 mg/dL (70-99) H 121 mg/dL (70-99) H Current Medications: Meds: Laboratory Tests Test 07/30/21 07:11 07/30/21 12:46 07/30/21 16:53 07/30/21 19:37 Glucose (Fingerstick) 95 mg/dL 142 mg/dL 169 mg/dL 121 mg/dL Current Medications Medications (Trade) Dose Ordered Sig/Richard Route PRN Reason Start Time Stop Time Status Last Admin Dose Admin Influenza Virus Vaccine Quadrival (Flulaval Quad Syringe) 0.5 ml ONCE ONCE VAX IM 07/17/21 09:00 07/17/21 09:01 DC 07/17/21 10:00 Acetaminophen (Tylenol) 650 mg PRN Q6HRS PRN PO PAIN/FEVER 07/16/21 22:45 UNV Metformin HCl (Glucophage) 1,000 mg BIDWMEALS PO 07/17/21 08:00 07/30/21 16:34 Nystatin (Mycostatin) 1 sulma PRN BID PRN TP RASH 07/16/21 22:45 Quetiapine Fumarate (SEROquel) 50 mg BID PO 07/17/21 09:00 07/18/21 10:56 DC 07/18/21 08:21 Trazodone HCl (Desyrel) 50 mg QHS PO 07/17/21 21:00 07/29/21 19:52 Non-Formulary Medication (Albuterol Sulfate (Albuterol Sulfate Neb Soln)) 1 vial QID PRN NEB SHORTNESS OF AIR 07/16/21 22:45 UNV Non-Formulary Medication (Insulin Aspart (Insulin Aspart Flexpen)) 100 unit PRN AFTMEALHC PRN SQ ELEVATED BLOOD SUGAR 07/16/21 22:45 UNV Acetaminophen (Tylenol) 650 mg PRN Q6HRS PRN PO MILD PAIN / TEMP > 100.3'F 07/16/21 22:45 07/29/21 02:12 Multi-Ingredient Ointment (Analgesic [place]) 1 sulma PRN QID PRN TP MUSCLE PAIN 07/16/21 22:45 Al Hydroxide/Mg Hydroxide (Mylanta Plus Xs) 15 ml PRN AFTMEALHC PRN PO DYSPEPSIA 07/16/21 22:45 Magnesium Hydroxide (Milk Of Magnesia) 2,400 mg PRN QHS PRN PO CONSTIPATION 07/16/21 22:45 Albuterol Sulfate (Ventolin) 2.5 mg PRN Q6HRS PRN NEB SHORTNESS OF BREATH 07/16/21 23:00 07/17/21 06:25 DC Insulin Human Lispro (HumaLOG) 0-5 UNITS TIDWMEALS SQ 07/17/21 08:00 07/30/21 17:11 Dextrose (Dextrose 50%-Water Syringe) 12.5 gm PRN Q15MIN PRN IV SEE COMMENTS 07/17/21 00:15 Albuterol Sulfate (Ventolin Hfa Inhaler) 1 puff PRN Q6HRS PRN INH SHORTNESS OF BREATH 07/17/21 06:30 Risperidone (RisperDAL) 0.5 mg HS PO 07/18/21 21:00 07/21/21 19:40 DC 07/20/21 20:18 Olanzapine (ZyPREXA ZYDIS) 2.5 mg PRN Q2HR PRN PO PSYCHOSIS 07/18/21 18:15 07/30/21 00:57 Divalproex Sodium (Depakote Sprinkles) 125 mg BID@0900,1700 PO 07/21/21 09:00 07/25/21 01:54 DC 07/24/21 17:08 Risperidone (RisperDAL) 1 mg HS PO 07/21/21 21:00 07/29/21 18:23 DC 07/28/21 20:11 Trazodone HCl (Desyrel) 50 mg PRN QHS PRN PO INSOMNIA 07/21/21 19:45 07/30/21 00:57 Mirtazapine (Remeron) 7.5 mg QHS PO 07/21/21 21:00 07/22/21 19:52 DC 07/21/21 20:04 Mirtazapine (Remeron) 15 mg QHS PO 07/22/21 21:00 07/29/21 19:53 Melatonin (Melatonin) 3 mg QHS PO 07/22/21 21:00 07/23/21 20:00 DC 07/22/21 20:21 Melatonin (Melatonin) 4.5 mg QHS PO 07/23/21 21:00 07/29/21 19:52 Divalproex Sodium (Depakote Sprinkles) 250 mg BID@0900,1700 PO 07/25/21 09:00 07/28/21 19:57 DC 07/28/21 17:07 Nystatin (Nystop) 1 sulma BID TP 07/27/21 21:00 07/29/21 19:53 Divalproex Sodium (Depakote Sprinkles) 375 mg BID@0900,1700 PO 07/29/21 09:00 07/30/21 16:34 Risperidone (RisperDAL) 0.25 mg QHS PO 07/29/21 21:00 07/29/21 19:53 Risperidone (RisperDAL) 1 mg QHS PO 07/29/21 21:00 07/29/21 19:52 Current Medications Medications (Trade) Dose Ordered Sig/Richard Route PRN Reason Start Time Stop Time Status Last Admin Dose Admin Risperidone (RisperDAL) 0.25 mg QHS PO 07/29/21 21:00 07/29/21 19:53 Risperidone (RisperDAL) 1 mg QHS PO 07/29/21 21:00 07/29/21 19:52 I have reviewed the current psychotropics carefully including drug interactions. Risk benefit ratio favors no change other than as noted in my dictated progress note. Diagnosis: Problems: (1) Impulse control disorder, unspecified (2) Anxiety disorder, unspecified (3) Dementia, vascular, with depression (4) Dementia, vascular, with delusions (5) Dementia in Alzheimer's disease with depression (6) Dementia in Alzheimer's disease with delusions (7) Dementia of the Alzheimer's type with early onset with behavioral disturbance (8) Major neurocognitive disorder SOO BAIRES MD Jul 30, 2021 20:49
[2021-07-30] MEDS: traZODone 50 MG TABLET. PO SCH (20:56)
[2021-07-30] MEDS: MIRTAZAPINE 15 MG TABLET PO SCH (20:56)
[2021-07-30] MEDS: MELATONIN 3 MG TABLET PO SCH (20:56)
[2021-07-30] MEDS: risperiDONE 1 MG TABLET. PO SCH (20:56)
[2021-07-30] MEDS: risperiDONE 0.25 MG TABLET. PO SCH (20:56)
--- NOTE | 2021-07-30 23:27 | NUR ---
Patient went to bed early. Nurse woke patient up to take medications and patient took them whole with water. Patient has garbled speech and is very hard to understand. Patient has an occasional dry cough, head of be raised slightly.
[2021-07-31] MEDS: traZODone 50 MG TABLET. PO SCH (01:15)
--- NOTE | 2021-07-31 01:16 | NUR ---
Patient awake in bed and then was assisted up to go to the bathroom. She had a bowel movement and then stated that she could hear staff laughing at her. She told this nurse and the GAS STATION CLERK to "stop making fun of me". No one had been saying anything. PRN trazodone given for sleep and PRN zyprexa given for psychosis. Will continue to monitor.
[2021-07-31 06:37] VITALS: BP 121/62
[2021-07-31] MEDS: INSULIN LISPRO 300 UNITS/3 ML VIAL. SQ SCH ×3 (08:00→17:00)
[2021-07-31] MEDS: DIVALPROEX 125 MG CAP.SPRINK PO SCH ×2 (08:29→17:29)
[2021-07-31] MEDS: metFORMIN 500 MG TABLET PO SCH ×2 (08:29→17:29)
[2021-07-31] MEDS: NYSTATIN TOPICAL POWDER 15GM BOTTLE. TP SCH ×2 (08:30→19:57)
--- NOTE | 2021-07-31 08:38 | PDOC ---
Exam Note: [place] Note: This note is a late entry for 07/29/2021 covers elements not covered in my initial note. Subjective: The patient was seen individually in the evening of 07/29/2021 with Honey TANG, discussed and reviewed the chart. The patient slept 6-1/4 hours previous night. She remains confused, yelling intermittently, talking to people who are not there, calling out for someone again with different names when no one is there. She appears psychotic, confused. Review of Systems: Ambulation impaired in wheelchair. I met with her in her room. No CV, , pulmonary, eye, ENT system symptoms on review. Mental Status Exam: The patient is oriented to herself. Insight and judgment, recent and remote memory, attention and concentration, fund of knowledge is poor consistent with her diagnosis. Laboratory Data: Reviewed. Impression: Major neurocognitive disorder Alzheimer, vascular, with delusions, depression, behavioral disturbance. Anxiety disorder unspecified. Impulse control disorder unspecified. Plan: Increase Risperdal from 1 mg h.s. to 1.25 mg h.s. given their ongoing psychotic symptoms. Rest unchanged for now. Assessment: Vital Signs/I&O: Vital Signs Date Time Temp Pulse Resp B/P (MAP) Pulse Ox O2 Delivery O2 Flow Rate FiO2 07/31/21 06:37 97.7 91 18 121/62 (81) 92 07/28/21 05:49 Room Air I & O 07/30/21 07/30/21 07/31/21 15:00 23:00 07:00 Intake Total 960 ml 500 ml Balance 960 ml 500 ml Labs: Laboratory Tests Test 07/30/21 12:46 07/30/21 16:53 07/30/21 19:37 07/31/21 07:12 Glucose (Fingerstick) 142 mg/dL (70-99) H 169 mg/dL (70-99) H 121 mg/dL (70-99) H 91 mg/dL (70-99) Current Medications: Meds: Laboratory Tests Test 07/30/21 12:46 07/30/21 16:53 07/30/21 19:37 07/31/21 07:12 Glucose (Fingerstick) 142 mg/dL 169 mg/dL 121 mg/dL 91 mg/dL Current Medications Medications (Trade) Dose Ordered Sig/Richard Route PRN Reason Start Time Stop Time Status Last Admin Dose Admin Influenza Virus Vaccine Quadrival (Flulaval Quad Syringe) 0.5 ml ONCE ONCE VAX IM 07/17/21 09:00 07/17/21 09:01 DC 07/17/21 10:00 Acetaminophen (Tylenol) 650 mg PRN Q6HRS PRN PO PAIN/FEVER 07/16/21 22:45 UNV Metformin HCl (Glucophage) 1,000 mg BIDWMEALS PO 07/17/21 08:00 07/31/21 08:29 Nystatin (Mycostatin) 1 sulma PRN BID PRN TP RASH 07/16/21 22:45 Quetiapine Fumarate (SEROquel) 50 mg BID PO 07/17/21 09:00 07/18/21 10:56 DC 07/18/21 08:21 Trazodone HCl (Desyrel) 50 mg QHS PO 07/17/21 21:00 07/31/21 01:15 Non-Formulary Medication (Albuterol Sulfate (Albuterol Sulfate Neb Soln)) 1 vial QID PRN NEB SHORTNESS OF AIR 07/16/21 22:45 UNV Non-Formulary Medication (Insulin Aspart (Insulin Aspart Flexpen)) 100 unit PRN AFTMEALHC PRN SQ ELEVATED BLOOD SUGAR 07/16/21 22:45 UNV Acetaminophen (Tylenol) 650 mg PRN Q6HRS PRN PO MILD PAIN / TEMP > 100.3'F 07/16/21 22:45 07/29/21 02:12 Multi-Ingredient Ointment (Analgesic [place]) 1 sulma PRN QID PRN TP MUSCLE PAIN 07/16/21 22:45 Al Hydroxide/Mg Hydroxide (Mylanta Plus Xs) 15 ml PRN AFTMEALHC PRN PO DYSPEPSIA 07/16/21 22:45 Magnesium Hydroxide (Milk Of Magnesia) 2,400 mg PRN QHS PRN PO CONSTIPATION 07/16/21 22:45 Albuterol Sulfate (Ventolin) 2.5 mg PRN Q6HRS PRN NEB SHORTNESS OF BREATH 07/16/21 23:00 07/17/21 06:25 DC Insulin Human Lispro (HumaLOG) 0-5 UNITS TIDWMEALS SQ 07/17/21 08:00 07/30/21 17:11 Dextrose (Dextrose 50%-Water Syringe) 12.5 gm PRN Q15MIN PRN IV SEE COMMENTS 07/17/21 00:15 Albuterol Sulfate (Ventolin Hfa Inhaler) 1 puff PRN Q6HRS PRN INH SHORTNESS OF BREATH 07/17/21 06:30 Risperidone (RisperDAL) 0.5 mg HS PO 07/18/21 21:00 07/21/21 19:40 DC 07/20/21 20:18 Olanzapine (ZyPREXA ZYDIS) 2.5 mg PRN Q2HR PRN PO PSYCHOSIS 07/18/21 18:15 07/31/21 01:15 Divalproex Sodium (Depakote Sprinkles) 125 mg BID@0900,1700 PO 07/21/21 09:00 07/25/21 01:54 DC 07/24/21 17:08 Risperidone (RisperDAL) 1 mg HS PO 07/21/21 21:00 07/29/21 18:23 DC 07/28/21 20:11 Trazodone HCl (Desyrel) 50 mg PRN QHS PRN PO INSOMNIA 07/21/21 19:45 07/30/21 00:57 Mirtazapine (Remeron) 7.5 mg QHS PO 07/21/21 21:00 07/22/21 19:52 DC 07/21/21 20:04 Mirtazapine (Remeron) 15 mg QHS PO 07/22/21 21:00 07/30/21 20:56 Melatonin (Melatonin) 3 mg QHS PO 07/22/21 21:00 07/23/21 20:00 DC 07/22/21 20:21 Melatonin (Melatonin) 4.5 mg QHS PO 07/23/21 21:00 07/30/21 20:56 Divalproex Sodium (Depakote Sprinkles) 250 mg BID@0900,1700 PO 07/25/21 09:00 07/28/21 19:57 DC 07/28/21 17:07 Nystatin (Nystop) 1 sulma BID TP 07/27/21 21:00 07/31/21 08:30 Divalproex Sodium (Depakote Sprinkles) 375 mg BID@0900,1700 PO 07/29/21 09:00 07/31/21 08:29 Risperidone (RisperDAL) 0.25 mg QHS PO 07/29/21 21:00 07/29/21 19:53 Risperidone (RisperDAL) 1 mg QHS PO 07/29/21 21:00 07/30/21 20:56 I have reviewed the current psychotropics carefully including drug interactions. Risk benefit ratio favors no change other than as noted in my dictated progress note. Diagnosis: Problems: (1) Impulse control disorder, unspecified (2) Anxiety disorder, unspecified (3) Dementia, vascular, with depression (4) Dementia, vascular, with delusions (5) Dementia in Alzheimer's disease with depression (6) Dementia in Alzheimer's disease with delusions (7) Dementia of the Alzheimer's type with early onset with behavioral disturbance (8) Major neurocognitive disorder SOO BAIRES MD Jul 31, 2021 08:38
--- NOTE | 2021-07-31 08:51 | PDOC ---
Exam Note: [place] Note: This note is a late entry for 07/30/2021 covers elements not covered in my initial note. Subjective: The patient was seen individually in the evening of 07/30/2021 with Iris TANG, discussed and reviewed the chart. The patient slept 6 hours previous night. She has been confused, delusional, yelling at times, talking about having a sack of potatoes and there were kids running around in the dining room which is not true. She is sedated at times and angry. Review of Systems: Ambulation impaired in wheelchair. No CV, , pulmonary, eye, ENT system symptoms on review. Mental Status Exam: The patient is oriented to herself. Insight and judgment, recent and remote memory, attention and concentration, fund of knowledge is poor consistent with her diagnosis. Laboratory Data: Reviewed. Impression: Major neurocognitive disorder Alzheimer, vascular, with delusions, depression, behavioral disturbance. Anxiety disorder unspecified. Impulse control disorder unspecified. Plan: Continue current psychotropics. Assessment: Vital Signs/I&O: Vital Signs Date Time Temp Pulse Resp B/P (MAP) Pulse Ox O2 Delivery O2 Flow Rate FiO2 07/31/21 06:37 97.7 91 18 121/62 (81) 92 07/28/21 05:49 Room Air I & O 07/30/21 07/30/21 07/31/21 15:00 23:00 07:00 Intake Total 960 ml 500 ml Balance 960 ml 500 ml Labs: Laboratory Tests Test 07/30/21 12:46 07/30/21 16:53 07/30/21 19:37 07/31/21 07:12 Glucose (Fingerstick) 142 mg/dL (70-99) H 169 mg/dL (70-99) H 121 mg/dL (70-99) H 91 mg/dL (70-99) Current Medications: Meds: Laboratory Tests Test 07/30/21 12:46 07/30/21 16:53 07/30/21 19:37 07/31/21 07:12 Glucose (Fingerstick) 142 mg/dL 169 mg/dL 121 mg/dL 91 mg/dL Current Medications Medications (Trade) Dose Ordered Sig/Richard Route PRN Reason Start Time Stop Time Status Last Admin Dose Admin Influenza Virus Vaccine Quadrival (Flulaval Quad Syringe) 0.5 ml ONCE ONCE VAX IM 07/17/21 09:00 07/17/21 09:01 DC 07/17/21 10:00 Acetaminophen (Tylenol) 650 mg PRN Q6HRS PRN PO PAIN/FEVER 07/16/21 22:45 UNV Metformin HCl (Glucophage) 1,000 mg BIDWMEALS PO 07/17/21 08:00 07/31/21 08:29 Nystatin (Mycostatin) 1 sulma PRN BID PRN TP RASH 07/16/21 22:45 Quetiapine Fumarate (SEROquel) 50 mg BID PO 07/17/21 09:00 07/18/21 10:56 DC 07/18/21 08:21 Trazodone HCl (Desyrel) 50 mg QHS PO 07/17/21 21:00 07/31/21 01:15 Non-Formulary Medication (Albuterol Sulfate (Albuterol Sulfate Neb Soln)) 1 vial QID PRN NEB SHORTNESS OF AIR 07/16/21 22:45 UNV Non-Formulary Medication (Insulin Aspart (Insulin Aspart Flexpen)) 100 unit PRN AFTMEALHC PRN SQ ELEVATED BLOOD SUGAR 07/16/21 22:45 UNV Acetaminophen (Tylenol) 650 mg PRN Q6HRS PRN PO MILD PAIN / TEMP > 100.3'F 07/16/21 22:45 07/29/21 02:12 Multi-Ingredient Ointment (Analgesic [place]) 1 sulma PRN QID PRN TP MUSCLE PAIN 07/16/21 22:45 Al Hydroxide/Mg Hydroxide (Mylanta Plus Xs) 15 ml PRN AFTMEALHC PRN PO DYSPEPSIA 07/16/21 22:45 Magnesium Hydroxide (Milk Of Magnesia) 2,400 mg PRN QHS PRN PO CONSTIPATION 07/16/21 22:45 Albuterol Sulfate (Ventolin) 2.5 mg PRN Q6HRS PRN NEB SHORTNESS OF BREATH 07/16/21 23:00 07/17/21 06:25 DC Insulin Human Lispro (HumaLOG) 0-5 UNITS TIDWMEALS SQ 07/17/21 08:00 07/30/21 17:11 Dextrose (Dextrose 50%-Water Syringe) 12.5 gm PRN Q15MIN PRN IV SEE COMMENTS 07/17/21 00:15 Albuterol Sulfate (Ventolin Hfa Inhaler) 1 puff PRN Q6HRS PRN INH SHORTNESS OF BREATH 07/17/21 06:30 Risperidone (RisperDAL) 0.5 mg HS PO 07/18/21 21:00 07/21/21 19:40 DC 07/20/21 20:18 Olanzapine (ZyPREXA ZYDIS) 2.5 mg PRN Q2HR PRN PO PSYCHOSIS 07/18/21 18:15 07/31/21 01:15 Divalproex Sodium (Depakote Sprinkles) 125 mg BID@0900,1700 PO 07/21/21 09:00 07/25/21 01:54 DC 07/24/21 17:08 Risperidone (RisperDAL) 1 mg HS PO 07/21/21 21:00 07/29/21 18:23 DC 07/28/21 20:11 Trazodone HCl (Desyrel) 50 mg PRN QHS PRN PO INSOMNIA 07/21/21 19:45 07/30/21 00:57 Mirtazapine (Remeron) 7.5 mg QHS PO 07/21/21 21:00 07/22/21 19:52 DC 07/21/21 20:04 Mirtazapine (Remeron) 15 mg QHS PO 07/22/21 21:00 07/30/21 20:56 Melatonin (Melatonin) 3 mg QHS PO 07/22/21 21:00 07/23/21 20:00 DC 07/22/21 20:21 Melatonin (Melatonin) 4.5 mg QHS PO 07/23/21 21:00 07/30/21 20:56 Divalproex Sodium (Depakote Sprinkles) 250 mg BID@0900,1700 PO 07/25/21 09:00 07/28/21 19:57 DC 07/28/21 17:07 Nystatin (Nystop) 1 sulma BID TP 07/27/21 21:00 07/31/21 08:30 Divalproex Sodium (Depakote Sprinkles) 375 mg BID@0900,1700 PO 07/29/21 09:00 07/31/21 08:29 Risperidone (RisperDAL) 0.25 mg QHS PO 07/29/21 21:00 07/29/21 19:53 Risperidone (RisperDAL) 1 mg QHS PO 07/29/21 21:00 07/30/21 20:56 I have reviewed the current psychotropics carefully including drug interactions. Risk benefit ratio favors no change other than as noted in my dictated progress note. Diagnosis: Problems: (1) Impulse control disorder, unspecified (2) Anxiety disorder, unspecified (3) Dementia, vascular, with depression (4) Dementia, vascular, with delusions (5) Dementia in Alzheimer's disease with depression (6) Dementia in Alzheimer's disease with delusions (7) Dementia of the Alzheimer's type with early onset with behavioral disturbance (8) Major neurocognitive disorder SOO BAIRES MD Jul 31, 2021 08:51
--- NOTE | 2021-07-31 12:37 | NUR ---
Nursing note: Pt in dining room at time of AM med pass and assessment. She is pleasant, med compliant and cooperative. She continues to be observed talking to people who are not there. She denies having any pain at time of assessment. She is currently in the day room watching TV. Will continue to monitor.
--- NOTE | 2021-07-31 13:43 | NUR ---
WEEKLY ACTIVITY THERAPY NOTE Date of Admission:07/16/21 Date of AT Assessment: 07/18 Precipitating behaviors that initiated intake and admission: Pt hallucinating, irritable calling out angry, confused, Delusions, combative, verbal aggression Goal aimed: increase socialization and engagement Initial Goal: Pt will participate in at least three activity therapy sessions per week Weekly progress towards goal: did not achieve, zero Group participation level: none Weekly highlights: no group participation Behaviors observed: shouting out, talking to people that are not there, hard to redirect during Thursday group Plan: no change to goal Beneficial adaptations:
[2021-07-31 15:45] VITALS: BP 112/71
--- NOTE | 2021-07-31 16:20 | TX PLAN ---
Interdisciplinary Tx Plan Admission Information Jul 16, 2021 at 20:03 Legal Status (on Admission): Voluntary DPOA/Guardian Name: Lucille Bergman Contact Other Contact Name: Jayna Sheikh Contact Verified Code Status: Full Code Allergies: Coded Allergies: No Known Drug Allergies (Unverified , 07/16/21) Diagnoses Primary Diagnosis: (1) Impulse control disorder, unspecified (2) Anxiety disorder, unspecified (3) Dementia, vascular, with depression (4) Dementia, vascular, with delusions (5) Dementia in Alzheimer's disease with depression (6) Dementia in Alzheimer's disease with delusions (7) Dementia of the Alzheimer's type with early onset with behavioral disturbance (8) Major neurocognitive disorder Reasons for Admission: Aggressive, Delusions, Agitated, Sig. Change Sleep, Hallucinations, Combative Problem in Patient's Words: Per pt lucille fishman/DPАнна MORALES who was raised mostly by pt, pt has had a noticable decline over the past year and particularlly over the past couple of months. Up until a year ago, pt was living in her independant living apartment and [place] of the [place], she moved to [place], [place] and bought a house that she paid winn for. She was then found to be living in very poor conditions without running water and no utilities and overall unable to care for herself. She had a few past hospitalizations but then release to herself and then would be found again living in unsafe conditions. At one point, pt drove herself to Анна's home, but refused to come in to stay, and would only stay in her car. Анна was finally successful at gaining DPOA during one of pt's hospitalizations and also in getting her license revoked. During the past year, family and staff during the different hospitalizations discovered pt was having hallucinations and delusions that seem to continue. Анна is concerned if pt is struggling with onset of dementia or if pt is truly experiencing psychosis and might clear in the future with medication management. Additional Admission Comments: Per intake record, pt refusing UA and cath, sexually inappropriate comments to staff, not sleeping for 30 hours, combative to staff, delusions,auditory hallucinations, verbally aggressive, screaming, cussing, disruptive. Problems Active Problems: Hallucinations, delusions, combative, agitation Inactive Problems: Pt seems to be sleeping better. Will continue to monitor for any changes. Pt Strengths/Limitations Ability for [place]: Poor Cognitive Functioning/Ability: Poor Communication Skills/Ability: Fair Financial Resources: Fair Insight/Judgement: Poor Intellectual Ability: Fair Physical Health: Poor Social Skills: Fair Stability in Family: Fair Stability in School/Work: Fair Verbal Skills: Fair Discharge Criteria Discharge Criteria: Adequate arrangements @DC, Verbal commit med comply, Improved behavior Other Discharge Comments: None at this time. Preliminary Discharge Plan Preliminary DC Plan: Current Living Arrange. Special Precautions Special Precautions: Agitation/Assault Fall Risk: High Other Precautions (specify): Pt has a history of falls. Initial D/C Plan Plan is for pt to return to her facility at [facility]. Identified Discharge Needs: None at this time. Currently Utilized Resources Currently Utilized Resources/P: PCP-Dr. Quang Fishman/[employer]-Анна [facility]; contact-CHANA Cruz Community Resources: None known at this time. Identified Problems/Hx/Goals Objectives/Short-Term Goals Short Term Goals: Control abnormal behavior, Dec. Aggression, Dec. Hallucination/Delus, Dec. Outbursts, Medication Stabilization, Monitor Med Effects, Prevent Deterioration, Promote Coping Skill Short Term Goals in Patient's: Assist with proper diagnosis of psychosis vs dementia. Interventions/Frequency Staff Interventions/Frequency&: Psychiatry to assess pt three times per week for medication management. Nursing to assess behaviors, monitor medications, and complete 15 minute checks daily. Social work to see pt at least two times weekly to aid in return to placement. Activities to encourage pt to participate in group activities daily. 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 Education: According to [employer], pt received a high school diploma and she had some technical college. Community Follow-up PCP Community Provider/Family Inpu: Pt lucille fishman/Анна LANG, provided pt history for the development of the treatment plan. Анна is available for further information should it be needed. Treatment Plan Explained Patient/Crm Analyst had this treatment plan explained to him/her as indicated by the signature below and has been given the opportunity to ask questions and make suggestions: Date: Patient/Crm Analyst Signature: Status Update Update Pt eating an average of 82% of her meals and sleeping an average of 6.5 hours. Sleep has seemed to slightly improve, but it appears to not be quality sleep and, therefore, pt will receive PRNs to assist with this. Pt continues to be disorganized, delusional, and will demonstrate signs and symptoms of hallucinating. Pt, also, continues to intermittently yell out, "Oh God, help me!" Pt maintains being medication compliant. Nursing staff have requested pt be put on a mechanical soft diet and have put in an order for pt to have a speech consult as she has had a couple of episodes of coughing after eating. Pt has been present for some of the group sessions, but shows not real ability to participate as she will talk nonsensical or be sleeping in her wheelchair. Pt plan is to return to [facility] provided her DPOA does not find an alternative placement prior to discharge. LINDA BLACKWELL Jul 31, 2021 16:20
[2021-07-31] MEDS: risperiDONE 0.25 MG TABLET. PO SCH (19:55)
[2021-07-31] MEDS: MIRTAZAPINE 15 MG TABLET PO SCH (19:56)
[2021-07-31] MEDS: MELATONIN 3 MG TABLET PO SCH (19:56)
[2021-07-31] MEDS: risperiDONE 1 MG TABLET. PO SCH (19:56)
[2021-07-31] MEDS: traZODone 50 MG TABLET. PO PRN (19:57)
--- NOTE | 2021-07-31 20:39 | PDOC ---
Exam Note: [place] Note: Please also refer to the separate dictated note~for this date of service dictated separately.~Patient seen individually. Discussed the patient with Nursing staff reviewed the chart.~Reviewed interim history and current functioning. Reviewed vital signs,~Labs/ Radiology~and current medications noted below. Continue current treatment with the changes noted in the dictated addendum note Assessment: Vital Signs/I&O: Vital Signs Date Time Temp Pulse Resp B/P (MAP) Pulse Ox O2 Delivery O2 Flow Rate FiO2 07/31/21 15:45 98.1 84 20 112/71 (85) 100 Room Air I & O 07/30/21 07/30/21 07/31/21 15:00 23:00 07:00 Intake Total 960 ml 500 ml Balance 960 ml 500 ml Labs: Laboratory Tests Test 07/31/21 07:12 07/31/21 11:48 07/31/21 19:01 Glucose (Fingerstick) 91 mg/dL (70-99) 121 mg/dL (70-99) H 142 mg/dL (70-99) H Current Medications: Meds: Laboratory Tests Test 07/31/21 07:12 07/31/21 11:48 07/31/21 19:01 Glucose (Fingerstick) 91 mg/dL 121 mg/dL 142 mg/dL Current Medications Medications (Trade) Dose Ordered Sig/Richard Route PRN Reason Start Time Stop Time Status Last Admin Dose Admin Influenza Virus Vaccine Quadrival (Flulaval Quad [id number] Syringe) 0.5 ml ONCE ONCE VAX IM 07/17/21 09:00 07/17/21 09:01 DC 07/17/21 10:00 Acetaminophen (Tylenol) 650 mg PRN Q6HRS PRN PO PAIN/FEVER 07/16/21 22:45 UNV Metformin HCl (Glucophage) 1,000 mg BIDWMEALS PO 07/17/21 08:00 07/31/21 17:29 Nystatin (Mycostatin) 1 sulma PRN BID PRN TP RASH 07/16/21 22:45 Quetiapine Fumarate (SEROquel) 50 mg BID PO 07/17/21 09:00 07/18/21 10:56 DC 07/18/21 08:21 Trazodone HCl (Desyrel) 50 mg QHS PO 07/17/21 21:00 07/31/21 01:15 Non-Formulary Medication (Albuterol Sulfate (Albuterol Sulfate Neb Soln)) 1 vial QID PRN NEB SHORTNESS OF AIR 07/16/21 22:45 UNV Non-Formulary Medication (Insulin Aspart (Insulin Aspart Flexpen)) 100 unit PRN AFTMEALHC PRN SQ ELEVATED BLOOD SUGAR 07/16/21 22:45 UNV Acetaminophen (Tylenol) 650 mg PRN Q6HRS PRN PO MILD PAIN / TEMP > 100.3'F 07/16/21 22:45 07/29/21 02:12 Multi-Ingredient Ointment (Analgesic [place]) 1 sulma PRN QID PRN TP MUSCLE PAIN 07/16/21 22:45 Al Hydroxide/Mg Hydroxide (Mylanta Plus Xs) 15 ml PRN AFTMEALHC PRN PO DYSPEPSIA 07/16/21 22:45 Magnesium Hydroxide (Milk Of Magnesia) 2,400 mg PRN QHS PRN PO CONSTIPATION 07/16/21 22:45 Albuterol Sulfate (Ventolin) 2.5 mg PRN Q6HRS PRN NEB SHORTNESS OF BREATH 07/16/21 23:00 07/17/21 06:25 DC Insulin Human Lispro (HumaLOG) 0-5 UNITS TIDWMEALS SQ 07/17/21 08:00 07/30/21 17:11 Dextrose (Dextrose 50%-Water Syringe) 12.5 gm PRN Q15MIN PRN IV SEE COMMENTS 07/17/21 00:15 Albuterol Sulfate (Ventolin Hfa Inhaler) 1 puff PRN Q6HRS PRN INH SHORTNESS OF BREATH 07/17/21 06:30 Risperidone (RisperDAL) 0.5 mg HS PO 07/18/21 21:00 07/21/21 19:40 DC 07/20/21 20:18 Olanzapine (ZyPREXA ZYDIS) 2.5 mg PRN Q2HR PRN PO PSYCHOSIS 07/18/21 18:15 07/31/21 01:15 Divalproex Sodium (Depakote Sprinkles) 125 mg BID@0900,1700 PO 07/21/21 09:00 07/25/21 01:54 DC 07/24/21 17:08 Risperidone (RisperDAL) 1 mg HS PO 07/21/21 21:00 07/29/21 18:23 DC 07/28/21 20:11 Trazodone HCl (Desyrel) 50 mg PRN QHS PRN PO INSOMNIA 07/21/21 19:45 07/31/21 19:57 Mirtazapine (Remeron) 7.5 mg QHS PO 07/21/21 21:00 07/22/21 19:52 DC 07/21/21 20:04 Mirtazapine (Remeron) 15 mg QHS PO 07/22/21 21:00 07/31/21 19:56 Melatonin (Melatonin) 3 mg QHS PO 07/22/21 21:00 07/23/21 20:00 DC 07/22/21 20:21 Melatonin (Melatonin) 4.5 mg QHS PO 07/23/21 21:00 07/31/21 19:56 Divalproex Sodium (Depakote Sprinkles) 250 mg BID@0900,1700 PO 07/25/21 09:00 07/28/21 19:57 DC 07/28/21 17:07 Nystatin (Nystop) 1 sulma BID TP 07/27/21 21:00 07/31/21 19:57 Divalproex Sodium (Depakote Sprinkles) 375 mg BID@0900,1700 PO 07/29/21 09:00 07/31/21 17:29 Risperidone (RisperDAL) 0.25 mg QHS PO 07/29/21 21:00 07/31/21 19:55 Risperidone (RisperDAL) 1 mg QHS PO 07/29/21 21:00 07/31/21 19:56 I have reviewed the current psychotropics carefully including drug interactions. Risk benefit ratio favors no change other than as noted in my dictated progress note. Diagnosis: Problems: (1) Impulse control disorder, unspecified (2) Anxiety disorder, unspecified (3) Dementia, vascular, with depression (4) Dementia, vascular, with delusions (5) Dementia in Alzheimer's disease with depression (6) Dementia in Alzheimer's disease with delusions (7) Dementia of the Alzheimer's type with early onset with behavioral disturbance (8) Major neurocognitive disorder SOO BAIRES MD Jul 31, 2021 20:39
--- NOTE | 2021-07-31 22:53 | NUR ---
Patient is delusional and hallucinating tonight. Patient was overheard having a conversation with no one in the hallway. When nurse asked her who she was talking to she said "luis and branden" they are right there. Patient had incontinent episode of diarrhea and then was assisted to bed. She took medications whole with water. Speech eval put in by dayshift nurse because patient coughs after drinking beverages and also at times when eating. They said they could come on Thursday.
--- NOTE | 2021-08-01 05:33 | NUR ---
Patient has had three watery, totally loose stools this shift. Sample obtained and sent to lab for C.Diff test.
[2021-08-01 05:42] VITALS: BP 152/72
[2021-08-01 06:10] LABS: BASO % 1 % (0-3); EOS # 0.3 x10^3/uL (0.0-0.7); EOS % 4 % (0-3); HEMATOCRIT 31.4 % (36.0-47.0); HEMOGLOBIN 9.9 g/dL (12.0-15.5); LYMPH % 41 % (24-48); MEAN CORPUSCULAR HEMOGLOBIN 27 pg (25-35); MEAN CORPUSCULAR HGB CONC 32 g/dL (31-37); MEAN CORPUSCULAR VOLUME 85 fL (79-100); MONO # 0.5 x10^3/uL (0.0-1.1); MONO % 7 % (0-9); NEUT # 3.6 x10^3uL (1.8-7.7); NEUT % 49 % (31-73); PLATELET COUNT 170 x10^3/uL (140-400); RED CELL DISTRIBUTION WIDTH 14.7 % (11.5-14.5); WHITE BLOOD COUNT 7.4 x10^3/uL (4.0-11.0)
[2021-08-01 06:25] LABS: ALBUMIN 2.4 g/dL (3.4-5.0); ALBUMIN/GLOBULIN RATIO 0.6 (1.0-1.7); ALK PHOS 97 U/L (46-116); ALT (SGPT) 22 U/L (14-59); ANION GAP 11 (6-14); AST (SGOT) 17 U/L (15-37); BLOOD UREA NITROGEN 37 mg/dL (7-20); BUN/CREATININE RATIO 37 (6-20); CALCIUM 8.5 mg/dL (8.5-10.1); CARBON DIOXIDE 26 mmol/L (21-32); CHLORIDE 105 mmol/L (98-107); GFR 52.8; GLUCOSE 91 mg/dL (70-99); POTASSIUM 4.7 mmol/L (3.5-5.1); SODIUM 142 mmol/L (136-145); TOTAL BILIRUBIN 0.1 mg/dL (0.2-1.0); TOTAL PROTEIN 6.5 g/dL (6.4-8.2)
[2021-08-01 06:30] LABS: VAL ACID 51 mcg/mL (50-100)
[2021-08-01] MEDS: INSULIN LISPRO 300 UNITS/3 ML VIAL. SQ SCH ×3 (08:00→17:00)
[2021-08-01] MEDS: NYSTATIN TOPICAL POWDER 15GM BOTTLE. TP SCH ×2 (08:23→21:01)
[2021-08-01] MEDS: metFORMIN 500 MG TABLET PO SCH ×2 (08:23→17:30)
[2021-08-01] MEDS: DIVALPROEX 125 MG CAP.SPRINK PO SCH ×2 (08:23→17:30)
--- NOTE | 2021-08-01 10:45 | NUR ---
Nursing note: Pt in dining room at time of AM med pass and assessment. She is pleasant, med compliant and cooperative. She continues to talk to people who are not there and yells out intermittently. She denies having any pain at time of assessment. She is currently resting quietly in her room. Will continue to monitor.
[2021-08-01 15:33] VITALS: BP 124/74
[2021-08-01] MEDS: risperiDONE 0.25 MG TABLET. PO SCH (21:00)
[2021-08-01] MEDS: risperiDONE 1 MG TABLET. PO SCH (21:00)
[2021-08-01] MEDS: MELATONIN 3 MG TABLET PO SCH (21:00)
[2021-08-01] MEDS: MIRTAZAPINE 15 MG TABLET PO SCH (21:00)
[2021-08-01] MEDS: traZODone 50 MG TABLET. PO SCH (21:00)
--- NOTE | 2021-08-01 21:05 | PDOC ---
Exam Note: [place] Note: Please also refer to the separate dictated note~for this date of service dictated separately.~Patient seen individually. Discussed the patient with Nursing staff reviewed the chart.~Reviewed interim history and current functioning. Reviewed vital signs,~Labs/ Radiology~and current medications noted below. Continue current treatment with the changes noted in the dictated addendum note Assessment: Vital Signs/I&O: Vital Signs Date Time Temp Pulse Resp B/P (MAP) Pulse Ox O2 Delivery O2 Flow Rate FiO2 08/01/21 15:33 98.0 89 19 124/74 (91) 94 07/31/21 15:45 Room Air I & O 07/31/21 07/31/21 08/01/21 15:00 23:00 07:00 Intake Total 620 ml 360 ml Balance 620 ml 360 ml Labs: Laboratory Tests Test 08/01/21 05:15 08/01/21 05:57 08/01/21 07:29 08/01/21 12:14 Clostridioides difficile Toxin (PCR) Negative (NEGATIVE) White Blood Count 7.4 x10^3/uL (4.0-11.0) Red Blood Count 3.70 x10^6/uL (3.50-5.40) Hemoglobin 9.9 g/dL (12.0-15.5) L Hematocrit 31.4 % (36.0-47.0) L Mean Corpuscular Volume 85 fL (79-100) Mean Corpuscular Hemoglobin 27 pg (25-35) Mean Corpuscular Hemoglobin Concent 32 g/dL (31-37) Red Cell Distribution Width 14.7 % (11.5-14.5) H Platelet Count 170 x10^3/uL (140-400) Neutrophils (%) (Auto) 49 % (31-73) Lymphocytes (%) (Auto) 41 % (24-48) Monocytes (%) (Auto) 7 % (0-9) Eosinophils (%) (Auto) 4 % (0-3) H Basophils (%) (Auto) 1 % (0-3) Neutrophils # (Auto) 3.6 x10^3uL (1.8-7.7) Lymphocytes # (Auto) 3.0 x10^3/uL (1.0-4.8) Monocytes # (Auto) 0.5 x10^3/uL (0.0-1.1) Eosinophils # (Auto) 0.3 x10^3/uL (0.0-0.7) Basophils # (Auto) 0.0 x10^3/uL (0.0-0.2) Sodium Level 142 mmol/L (136-145) Potassium Level 4.7 mmol/L (3.5-5.1) Chloride Level 105 mmol/L (98-107) Carbon Dioxide Level 26 mmol/L (21-32) Anion Gap 11 (6-14) Blood Urea Nitrogen 37 mg/dL (7-20) H Creatinine 1.0 mg/dL (0.6-1.0) Estimated GFR (Cockcroft-Gault) 52.8 BUN/Creatinine Ratio 37 (6-20) H Glucose Level 91 mg/dL (70-99) Calcium Level 8.5 mg/dL (8.5-10.1) Total Bilirubin 0.1 mg/dL (0.2-1.0) L Aspartate Amino Transferase (AST) 17 U/L (15-37) Alanine Aminotransferase (ALT) 22 U/L (14-59) Alkaline Phosphatase 97 U/L (46-116) Ammonia < 10 mcmol/L (11-34) L Total Protein 6.5 g/dL (6.4-8.2) Albumin 2.4 g/dL (3.4-5.0) L Albumin/Globulin Ratio 0.6 (1.0-1.7) L Valproic Acid Level 51 mcg/mL (50-100) Valproic Acid Last Dose Date 07/31/21 Valproic Acid Last Dose Time 1700 Glucose (Fingerstick) 90 mg/dL (70-99) 84 mg/dL (70-99) Test 08/01/21 17:01 08/01/21 19:08 Glucose (Fingerstick) 154 mg/dL (70-99) H 166 mg/dL (70-99) H Current Medications: Meds: Laboratory Tests Test 08/01/21 05:15 08/01/21 05:57 08/01/21 07:29 08/01/21 12:14 Clostridium difficile Toxin (PCR) Negative White Blood Count 7.4 x10^3/uL Red Blood Count 3.70 x10^6/uL Hemoglobin 9.9 g/dL Hematocrit 31.4 % Mean Corpuscular Volume 85 fL Mean Corpuscular Hemoglobin 27 pg Mean Corpuscular Hemoglobin Concent 32 g/dL Red Cell Distribution Width 14.7 % Platelet Count 170 x10^3/uL Neutrophils (%) (Auto) 49 % Lymphocytes (%) (Auto) 41 % Monocytes (%) (Auto) 7 % Eosinophils (%) (Auto) 4 % Basophils (%) (Auto) 1 % Neutrophils # (Auto) 3.6 x10^3uL Lymphocytes # (Auto) 3.0 x10^3/uL Monocytes # (Auto) 0.5 x10^3/uL Eosinophils # (Auto) 0.3 x10^3/uL Basophils # (Auto) 0.0 x10^3/uL Sodium Level 142 mmol/L Potassium Level 4.7 mmol/L Chloride Level 105 mmol/L Carbon Dioxide Level 26 mmol/L Anion Gap 11 Blood Urea Nitrogen 37 mg/dL Creatinine 1.0 mg/dL Estimated GFR (Cockcroft-Gault) 52.8 BUN/Creatinine Ratio 37 Glucose Level 91 mg/dL Calcium Level 8.5 mg/dL Total Bilirubin 0.1 mg/dL Aspartate Amino Transf (AST/SGOT) 17 U/L Alanine Aminotransferase (ALT/SGPT) 22 U/L Alkaline Phosphatase 97 U/L Ammonia < 10 mcmol/L Total Protein 6.5 g/dL Albumin 2.4 g/dL Albumin/Globulin Ratio 0.6 Valproic Acid (Depakene) Level 51 mcg/mL Valproic Acid Last Dose Date 07/31/21 Valproic Acid Last Dose Time 1700 Glucose (Fingerstick) 90 mg/dL 84 mg/dL Test 08/01/21 17:01 08/01/21 19:08 Glucose (Fingerstick) 154 mg/dL 166 mg/dL Current Medications Medications (Trade) Dose Ordered Sig/Richard Route PRN Reason Start Time Stop Time Status Last Admin Dose Admin Influenza Virus Vaccine Quadrival (Flulaval Quad Syringe) 0.5 ml ONCE ONCE VAX IM 07/17/21 09:00 07/17/21 09:01 DC 07/17/21 10:00 Acetaminophen (Tylenol) 650 mg PRN Q6HRS PRN PO PAIN/FEVER 07/16/21 22:45 UNV Metformin HCl (Glucophage) 1,000 mg BIDWMEALS PO 07/17/21 08:00 08/01/21 17:30 Nystatin (Mycostatin) 1 sulma PRN BID PRN TP RASH 07/16/21 22:45 Quetiapine Fumarate (SEROquel) 50 mg BID PO 07/17/21 09:00 07/18/21 10:56 DC 07/18/21 08:21 Trazodone HCl (Desyrel) 50 mg QHS PO 07/17/21 21:00 08/01/21 21:00 Non-Formulary Medication (Albuterol Sulfate (Albuterol Sulfate Neb Soln)) 1 vial QID PRN NEB SHORTNESS OF AIR 07/16/21 22:45 UNV Non-Formulary Medication (Insulin Aspart (Insulin Aspart Flexpen)) 100 unit PRN AFTMEALHC PRN SQ ELEVATED BLOOD SUGAR 07/16/21 22:45 UNV Acetaminophen (Tylenol) 650 mg PRN Q6HRS PRN PO MILD PAIN / TEMP > 100.3'F 07/16/21 22:45 07/29/21 02:12 Multi-Ingredient Ointment (Analgesic [place]) 1 sulma PRN QID PRN TP MUSCLE PAIN 07/16/21 22:45 Al Hydroxide/Mg Hydroxide (Mylanta Plus Xs) 15 ml PRN AFTMEALHC PRN PO DYSPEPSIA 07/16/21 22:45 Magnesium Hydroxide (Milk Of Magnesia) 2,400 mg PRN QHS PRN PO CONSTIPATION 07/16/21 22:45 Albuterol Sulfate (Ventolin) 2.5 mg PRN Q6HRS PRN NEB SHORTNESS OF BREATH 07/16/21 23:00 07/17/21 06:25 DC Insulin Human Lispro (HumaLOG) 0-5 UNITS TIDWMEALS SQ 07/17/21 08:00 07/30/21 17:11 Dextrose (Dextrose 50%-Water Syringe) 12.5 gm PRN Q15MIN PRN IV SEE COMMENTS 07/17/21 00:15 Albuterol Sulfate (Ventolin Hfa Inhaler) 1 puff PRN Q6HRS PRN INH SHORTNESS OF BREATH 07/17/21 06:30 Risperidone (RisperDAL) 0.5 mg HS PO 07/18/21 21:00 07/21/21 19:40 DC 07/20/21 20:18 Olanzapine (ZyPREXA ZYDIS) 2.5 mg PRN Q2HR PRN PO PSYCHOSIS 07/18/21 18:15 07/31/21 01:15 Divalproex Sodium (Depakote Sprinkles) 125 mg BID@0900,1700 PO 07/21/21 09:00 07/25/21 01:54 DC 07/24/21 17:08 Risperidone (RisperDAL) 1 mg HS PO 07/21/21 21:00 07/29/21 18:23 DC 07/28/21 20:11 Trazodone HCl (Desyrel) 50 mg PRN QHS PRN PO INSOMNIA 07/21/21 19:45 07/31/21 19:57 Mirtazapine (Remeron) 7.5 mg QHS PO 07/21/21 21:00 07/22/21 19:52 DC 07/21/21 20:04 Mirtazapine (Remeron) 15 mg QHS PO 07/22/21 21:00 08/01/21 21:00 Melatonin (Melatonin) 3 mg QHS PO 07/22/21 21:00 07/23/21 20:00 DC 07/22/21 20:21 Melatonin (Melatonin) 4.5 mg QHS PO 07/23/21 21:00 08/01/21 21:00 Divalproex Sodium (Depakote Sprinkles) 250 mg BID@0900,1700 PO 07/25/21 09:00 07/28/21 19:57 DC 07/28/21 17:07 Nystatin (Nystop) 1 sulma BID TP 07/27/21 21:00 08/01/21 21:01 Divalproex Sodium (Depakote Sprinkles) 375 mg BID@0900,1700 PO 07/29/21 09:00 08/01/21 17:30 Risperidone (RisperDAL) 0.25 mg QHS PO 07/29/21 21:00 08/01/21 21:00 Risperidone (RisperDAL) 1 mg QHS PO 07/29/21 21:00 08/01/21 21:00 I have reviewed the current psychotropics carefully including drug interactions. Risk benefit ratio favors no change other than as noted in my dictated progress note. Diagnosis: Problems: (1) Impulse control disorder, unspecified (2) Anxiety disorder, unspecified (3) Dementia, vascular, with depression (4) Dementia, vascular, with delusions (5) Dementia in Alzheimer's disease with depression (6) Dementia in Alzheimer's disease with delusions (7) Dementia of the Alzheimer's type with early onset with behavioral disturbance (8) Major neurocognitive disorder SOO BAIRES MD Aug 01, 2021 21:05
[2021-08-02 06:11] VITALS: BP 102/43
[2021-08-02] MEDS: INSULIN LISPRO 300 UNITS/3 ML VIAL. SQ SCH ×3 (08:00→16:51)
[2021-08-02] MEDS: metFORMIN 500 MG TABLET PO SCH ×2 (08:20→16:29)
[2021-08-02] MEDS: NYSTATIN TOPICAL POWDER 15GM BOTTLE. TP SCH ×2 (08:20→20:35)
[2021-08-02] MEDS: DIVALPROEX 125 MG CAP.SPRINK PO SCH ×2 (08:20→16:28)
--- NOTE | 2021-08-02 15:28 | NUR ---
Pt confused, disorganized and delusional today. She has been increasingly yelling out from her room, in particular for someone named "Oskar." Pt re-oriented and redirected in regards to the yelling. She is compliant with whole medications and is able to make her needs known. Plan of care continues, will pass to next shift.
[2021-08-02 15:34] VITALS: BP 138/75
--- NOTE | 2021-08-02 20:26 | PDOC ---
Exam Note: [place] Note: Please also refer to the separate dictated note~for this date of service dictated separately.~Patient seen individually. Discussed the patient with Nursing staff reviewed the chart.~Reviewed interim history and current functioning. Reviewed vital signs,~Labs/ Radiology~and current medications noted below. Continue current treatment with the changes noted in the dictated addendum note Assessment: Vital Signs/I&O: Vital Signs Date Time Temp Pulse Resp B/P (MAP) Pulse Ox O2 Delivery O2 Flow Rate FiO2 08/02/21 15:34 97.8 88 20 138/75 (96) 95 07/31/21 15:45 Room Air I & O 08/01/21 08/01/21 08/02/21 15:00 23:00 07:00 Intake Total 600 ml 300 ml Balance 600 ml 300 ml Labs: Laboratory Tests Test 08/02/21 07:19 08/02/21 12:07 08/02/21 16:42 08/02/21 19:18 Glucose (Fingerstick) 90 mg/dL (70-99) 84 mg/dL (70-99) 126 mg/dL (70-99) H 123 mg/dL (70-99) H Current Medications: Meds: Laboratory Tests Test 08/02/21 07:19 08/02/21 12:07 08/02/21 16:42 08/02/21 19:18 Glucose (Fingerstick) 90 mg/dL 84 mg/dL 126 mg/dL 123 mg/dL Current Medications Medications (Trade) Dose Ordered Sig/Richard Route PRN Reason Start Time Stop Time Status Last Admin Dose Admin Influenza Virus Vaccine Quadrival (Flulaval Quad Syringe) 0.5 ml ONCE ONCE VAX IM 07/17/21 09:00 07/17/21 09:01 DC 07/17/21 10:00 Acetaminophen (Tylenol) 650 mg PRN Q6HRS PRN PO PAIN/FEVER 07/16/21 22:45 UNV Metformin HCl (Glucophage) 1,000 mg BIDWMEALS PO 07/17/21 08:00 08/02/21 16:29 Nystatin (Mycostatin) 1 sulma PRN BID PRN TP RASH 07/16/21 22:45 Quetiapine Fumarate (SEROquel) 50 mg BID PO 07/17/21 09:00 07/18/21 10:56 DC 07/18/21 08:21 Trazodone HCl (Desyrel) 50 mg QHS PO 07/17/21 21:00 08/01/21 21:00 Non-Formulary Medication (Albuterol Sulfate (Albuterol Sulfate Neb Soln)) 1 vial QID PRN NEB SHORTNESS OF AIR 07/16/21 22:45 UNV Non-Formulary Medication (Insulin Aspart (Insulin Aspart Flexpen)) 100 unit PRN AFTMEALHC PRN SQ ELEVATED BLOOD SUGAR 07/16/21 22:45 UNV Acetaminophen (Tylenol) 650 mg PRN Q6HRS PRN PO MILD PAIN / TEMP > 100.3'F 07/16/21 22:45 07/29/21 02:12 Multi-Ingredient Ointment (Analgesic [place]) 1 sulma PRN QID PRN TP MUSCLE PAIN 07/16/21 22:45 Al Hydroxide/Mg Hydroxide (Mylanta Plus Xs) 15 ml PRN AFTMEALHC PRN PO DYSPEPSIA 07/16/21 22:45 Magnesium Hydroxide (Milk Of Magnesia) 2,400 mg PRN QHS PRN PO CONSTIPATION 07/16/21 22:45 Albuterol Sulfate (Ventolin) 2.5 mg PRN Q6HRS PRN NEB SHORTNESS OF BREATH 07/16/21 23:00 07/17/21 06:25 DC Insulin Human Lispro (HumaLOG) 0-5 UNITS TIDWMEALS SQ 07/17/21 08:00 07/30/21 17:11 Dextrose (Dextrose 50%-Water Syringe) 12.5 gm PRN Q15MIN PRN IV SEE COMMENTS 07/17/21 00:15 Albuterol Sulfate (Ventolin Hfa Inhaler) 1 puff PRN Q6HRS PRN INH SHORTNESS OF BREATH 07/17/21 06:30 Risperidone (RisperDAL) 0.5 mg HS PO 07/18/21 21:00 07/21/21 19:40 DC 07/20/21 20:18 Olanzapine (ZyPREXA ZYDIS) 2.5 mg PRN Q2HR PRN PO PSYCHOSIS 07/18/21 18:15 07/31/21 01:15 Divalproex Sodium (Depakote Sprinkles) 125 mg BID@0900,1700 PO 07/21/21 09:00 07/25/21 01:54 DC 07/24/21 17:08 Risperidone (RisperDAL) 1 mg HS PO 07/21/21 21:00 07/29/21 18:23 DC 07/28/21 20:11 Trazodone HCl (Desyrel) 50 mg PRN QHS PRN PO INSOMNIA 07/21/21 19:45 07/31/21 19:57 Mirtazapine (Remeron) 7.5 mg QHS PO 07/21/21 21:00 07/22/21 19:52 DC 07/21/21 20:04 Mirtazapine (Remeron) 15 mg QHS PO 07/22/21 21:00 08/01/21 21:00 Melatonin (Melatonin) 3 mg QHS PO 07/22/21 21:00 07/23/21 20:00 DC 07/22/21 20:21 Melatonin (Melatonin) 4.5 mg QHS PO 07/23/21 21:00 08/01/21 21:00 Divalproex Sodium (Depakote Sprinkles) 250 mg BID@0900,1700 PO 07/25/21 09:00 07/28/21 19:57 DC 07/28/21 17:07 Nystatin (Nystop) 1 sulma BID TP 07/27/21 21:00 08/02/21 08:20 Divalproex Sodium (Depakote Sprinkles) 375 mg BID@0900,1700 PO 07/29/21 09:00 08/02/21 16:28 Risperidone (RisperDAL) 0.25 mg QHS PO 07/29/21 21:00 08/01/21 21:00 Risperidone (RisperDAL) 1 mg QHS PO 07/29/21 21:00 08/01/21 21:00 I have reviewed the current psychotropics carefully including drug interactions. Risk benefit ratio favors no change other than as noted in my dictated progress note. Diagnosis: Problems: (1) Impulse control disorder, unspecified (2) Anxiety disorder, unspecified (3) Dementia, vascular, with depression (4) Dementia, vascular, with delusions (5) Dementia in Alzheimer's disease with depression (6) Dementia in Alzheimer's disease with delusions (7) Dementia of the Alzheimer's type with early onset with behavioral disturbance (8) Major neurocognitive disorder SOO BAIRES MD Aug 02, 2021 20:26
[2021-08-02] MEDS: traZODone 50 MG TABLET. PO SCH (20:33)
[2021-08-02] MEDS: risperiDONE 0.25 MG TABLET. PO SCH (20:33)
[2021-08-02] MEDS: MIRTAZAPINE 15 MG TABLET PO SCH (20:34)
[2021-08-02] MEDS: risperiDONE 1 MG TABLET. PO SCH (20:34)
[2021-08-02] MEDS: MELATONIN 3 MG TABLET PO SCH (20:34)
--- NOTE | 2021-08-02 23:10 | NUR ---
Patient is located in her room for assessments and medications. She is awake in bed. Disorganized, delusional, continues to yell out every so often despite redirection. When this nurse approached her, she asked, "What happened to my bike that I was just riding?" Despite efforts to reorient the patient to her situation, she continues to insist that she has been riding a bike all day. She was compliant with assessments and took her medications whole. Patient appears to be sleeping comfortably at present time. Will continue to monitor.
[2021-08-03] MEDS: traZODone 50 MG TABLET. PO PRN (01:44)
[2021-08-03 05:38] VITALS: BP 106/58
--- NOTE | 2021-08-03 08:21 | PDOC ---
Exam Note: [place] Note: This note is a late entry for 07/31/2021 covers elements not covered in my initial note. Subjective: The patient was reviewed at treatment team meeting individually in the morning on 07/31/2021 with Katherine Moreno, Eliza Muniz, and Stephani Curry (socially responsible investment adviser), Nuria Bella, Health Care Coordinator, Martina, activity therapy, and Honey TANG, discussed and reviewed the chart. We discussed the patients diagnoses, progress, and psychotropic medications. The patient slept 5-3/4 hours previous night. She had a flu shot on 07/17/2021. She continues to have some insomnia despite trazodone and Zyprexa. She had some aspiration risk. Speech consult has been requested, constantly talking about leaving today. Diet changed to mechanical soft. No suicidal ideation per nursing report. She attended one group but was agitated and shouting during the group. I met with her in her room. Review of Systems: Ambulation impaired in wheelchair. No CV, , pulmonary, eye, ENT system symptoms on review. Reliability poor. Mental Status Exam: The patient is oriented to herself. Insight and judgment, recent and remote memory, attention and concentration, fund of knowledge is poor consistent with her diagnosis. Laboratory Data: Reviewed. Impression: Major neurocognitive disorder Alzheimer, vascular, with delusions, depression, behavioral disturbance. Anxiety disorder unspecified. Impulse control disorder unspecified. Plan: Continue current psychotropics. Assessment: Vital Signs/I&O: Vital Signs Date Time Temp Pulse Resp B/P (MAP) Pulse Ox O2 Delivery O2 Flow Rate FiO2 08/03/21 05:38 97.3 82 18 106/58 (74) 90 Room Air I & O 08/02/21 08/02/21 08/03/21 15:00 23:00 07:00 Intake Total 840 ml 360 ml Balance 840 ml 360 ml Labs: Laboratory Tests Test 08/02/21 12:07 08/02/21 16:42 08/02/21 19:18 08/03/21 07:22 Glucose (Fingerstick) 84 mg/dL (70-99) 126 mg/dL (70-99) H 123 mg/dL (70-99) H 156 mg/dL (70-99) H Current Medications: Meds: Laboratory Tests Test 08/02/21 12:07 08/02/21 16:42 08/02/21 19:18 08/03/21 07:22 Glucose (Fingerstick) 84 mg/dL 126 mg/dL 123 mg/dL 156 mg/dL Current Medications Medications (Trade) Dose Ordered Sig/Richard Route PRN Reason Start Time Stop Time Status Last Admin Dose Admin Influenza Virus Vaccine Quadrival (Flulaval Quad Syringe) 0.5 ml ONCE ONCE VAX IM 07/17/21 09:00 07/17/21 09:01 DC 07/17/21 10:00 Acetaminophen (Tylenol) 650 mg PRN Q6HRS PRN PO PAIN/FEVER 07/16/21 22:45 UNV Metformin HCl (Glucophage) 1,000 mg BIDWMEALS PO 07/17/21 08:00 08/02/21 16:29 Nystatin (Mycostatin) 1 sulma PRN BID PRN TP RASH 07/16/21 22:45 Quetiapine Fumarate (SEROquel) 50 mg BID PO 07/17/21 09:00 07/18/21 10:56 DC 07/18/21 08:21 Trazodone HCl (Desyrel) 50 mg QHS PO 07/17/21 21:00 08/02/21 20:33 Non-Formulary Medication (Albuterol Sulfate (Albuterol Sulfate Neb Soln)) 1 vial QID PRN NEB SHORTNESS OF AIR 07/16/21 22:45 UNV Non-Formulary Medication (Insulin Aspart (Insulin Aspart Flexpen)) 100 unit PRN AFTMEALHC PRN SQ ELEVATED BLOOD SUGAR 07/16/21 22:45 UNV Acetaminophen (Tylenol) 650 mg PRN Q6HRS PRN PO MILD PAIN / TEMP > 100.3'F 07/16/21 22:45 07/29/21 02:12 Multi-Ingredient Ointment (Analgesic [place]) 1 sulma PRN QID PRN TP MUSCLE PAIN 07/16/21 22:45 Al Hydroxide/Mg Hydroxide (Mylanta Plus Xs) 15 ml PRN AFTMEALHC PRN PO DYSPEPSIA 07/16/21 22:45 Magnesium Hydroxide (Milk Of Magnesia) 2,400 mg PRN QHS PRN PO CONSTIPATION 07/16/21 22:45 Albuterol Sulfate (Ventolin) 2.5 mg PRN Q6HRS PRN NEB SHORTNESS OF BREATH 07/16/21 23:00 07/17/21 06:25 DC Insulin Human Lispro (HumaLOG) 0-5 UNITS TIDWMEALS SQ 07/17/21 08:00 07/30/21 17:11 Dextrose (Dextrose 50%-Water Syringe) 12.5 gm PRN Q15MIN PRN IV SEE COMMENTS 07/17/21 00:15 Albuterol Sulfate (Ventolin Hfa Inhaler) 1 puff PRN Q6HRS PRN INH SHORTNESS OF BREATH 07/17/21 06:30 Risperidone (RisperDAL) 0.5 mg HS PO 07/18/21 21:00 07/21/21 19:40 DC 07/20/21 20:18 Olanzapine (ZyPREXA ZYDIS) 2.5 mg PRN Q2HR PRN PO PSYCHOSIS 07/18/21 18:15 07/31/21 01:15 Divalproex Sodium (Depakote Sprinkles) 125 mg BID@0900,1700 PO 07/21/21 09:00 07/25/21 01:54 DC 07/24/21 17:08 Risperidone (RisperDAL) 1 mg HS PO 07/21/21 21:00 07/29/21 18:23 DC 07/28/21 20:11 Trazodone HCl (Desyrel) 50 mg PRN QHS PRN PO INSOMNIA 07/21/21 19:45 08/03/21 01:44 Mirtazapine (Remeron) 7.5 mg QHS PO 07/21/21 21:00 07/22/21 19:52 DC 07/21/21 20:04 Mirtazapine (Remeron) 15 mg QHS PO 07/22/21 21:00 08/02/21 20:34 Melatonin (Melatonin) 3 mg QHS PO 07/22/21 21:00 07/23/21 20:00 DC 07/22/21 20:21 Melatonin (Melatonin) 4.5 mg QHS PO 07/23/21 21:00 08/02/21 20:34 Divalproex Sodium (Depakote Sprinkles) 250 mg BID@0900,1700 PO 07/25/21 09:00 07/28/21 19:57 DC 07/28/21 17:07 Nystatin (Nystop) 1 sulma BID TP 07/27/21 21:00 08/02/21 20:35 Divalproex Sodium (Depakote Sprinkles) 375 mg BID@0900,1700 PO 07/29/21 09:00 08/02/21 16:28 Risperidone (RisperDAL) 0.25 mg QHS PO 07/29/21 21:00 08/02/21 20:33 Risperidone (RisperDAL) 1 mg QHS PO 07/29/21 21:00 08/02/21 20:34 Sertraline HCl (Zoloft) 25 mg DAILY PO 08/03/21 09:00 08/05/21 12:00 Sertraline HCl (Zoloft) 50 mg DAILY PO 08/06/21 09:00 I have reviewed the current psychotropics carefully including drug interactions. Risk benefit ratio favors no change other than as noted in my dictated progress note. Diagnosis: Problems: (1) Impulse control disorder, unspecified (2) Anxiety disorder, unspecified (3) Dementia, vascular, with depression (4) Dementia, vascular, with delusions (5) Dementia in Alzheimer's disease with depression (6) Dementia in Alzheimer's disease with delusions (7) Dementia of the Alzheimer's type with early onset with behavioral disturbance (8) Major neurocognitive disorder SOO BAIRES MD Aug 03, 2021 08:21
--- NOTE | 2021-08-03 08:34 | PDOC ---
Exam Note: [place] Note: This note is a late entry for 08/01/2021 covers elements not covered in my initial note. Subjective: The patient was seen individually in the evening of 08/01/2021 with Anselmo TANG, discussed and reviewed the chart. The patient slept 7-1/4 hours previous night. She remains confused, somewhat labile in her mood, hallucinating at times. Valproic acid level is therapeutic at 51, BUN 37, albumin low. AST and ALT unremarkable. I met with her in her room. Review of Systems: Ambulation impaired in wheelchair. No CV, , pulmonary, eye, ENT system symptoms on review. Reliability poor. Mental Status Exam: The patient is oriented to herself. Insight and judgment, recent and remote memory, attention and concentration, fund of knowledge is poor consistent with her diagnosis. Laboratory Data: Reviewed. Impression: Major neurocognitive disorder Alzheimer, vascular, with delusions, depression, behavioral disturbance. Anxiety disorder unspecified. Impulse control disorder unspecified. Plan: Continue current psychotropics. Assessment: Vital Signs/I&O: Vital Signs Date Time Temp Pulse Resp B/P (MAP) Pulse Ox O2 Delivery O2 Flow Rate FiO2 08/03/21 05:38 97.3 82 18 106/58 (74) 90 Room Air I & O 08/02/21 08/02/21 08/03/21 15:00 23:00 07:00 Intake Total 840 ml 360 ml Balance 840 ml 360 ml Labs: Laboratory Tests Test 08/02/21 12:07 08/02/21 16:42 08/02/21 19:18 08/03/21 07:22 Glucose (Fingerstick) 84 mg/dL (70-99) 126 mg/dL (70-99) H 123 mg/dL (70-99) H 156 mg/dL (70-99) H Current Medications: Meds: Laboratory Tests Test 08/02/21 12:07 08/02/21 16:42 08/02/21 19:18 08/03/21 07:22 Glucose (Fingerstick) 84 mg/dL 126 mg/dL 123 mg/dL 156 mg/dL Current Medications Medications (Trade) Dose Ordered Sig/Richard Route PRN Reason Start Time Stop Time Status Last Admin Dose Admin Influenza Virus Vaccine Quadrival (Flulaval Quad Syringe) 0.5 ml ONCE ONCE VAX IM 07/17/21 09:00 07/17/21 09:01 DC 07/17/21 10:00 Acetaminophen (Tylenol) 650 mg PRN Q6HRS PRN PO PAIN/FEVER 07/16/21 22:45 UNV Metformin HCl (Glucophage) 1,000 mg BIDWMEALS PO 07/17/21 08:00 08/02/21 16:29 Nystatin (Mycostatin) 1 sulma PRN BID PRN TP RASH 07/16/21 22:45 Quetiapine Fumarate (SEROquel) 50 mg BID PO 07/17/21 09:00 07/18/21 10:56 DC 07/18/21 08:21 Trazodone HCl (Desyrel) 50 mg QHS PO 07/17/21 21:00 08/02/21 20:33 Non-Formulary Medication (Albuterol Sulfate (Albuterol Sulfate Neb Soln)) 1 vial QID PRN NEB SHORTNESS OF AIR 07/16/21 22:45 UNV Non-Formulary Medication (Insulin Aspart (Insulin Aspart Flexpen)) 100 unit PRN AFTMEALHC PRN SQ ELEVATED BLOOD SUGAR 07/16/21 22:45 UNV Acetaminophen (Tylenol) 650 mg PRN Q6HRS PRN PO MILD PAIN / TEMP > 100.3'F 07/16/21 22:45 07/29/21 02:12 Multi-Ingredient Ointment (Analgesic [place]) 1 sulma PRN QID PRN TP MUSCLE PAIN 07/16/21 22:45 Al Hydroxide/Mg Hydroxide (Mylanta Plus Xs) 15 ml PRN AFTMEALHC PRN PO DYSPEPSIA 07/16/21 22:45 Magnesium Hydroxide (Milk Of Magnesia) 2,400 mg PRN QHS PRN PO CONSTIPATION 07/16/21 22:45 Albuterol Sulfate (Ventolin) 2.5 mg PRN Q6HRS PRN NEB SHORTNESS OF BREATH 07/16/21 23:00 07/17/21 06:25 DC Insulin Human Lispro (HumaLOG) 0-5 UNITS TIDWMEALS SQ 07/17/21 08:00 07/30/21 17:11 Dextrose (Dextrose 50%-Water Syringe) 12.5 gm PRN Q15MIN PRN IV SEE COMMENTS 07/17/21 00:15 Albuterol Sulfate (Ventolin Hfa Inhaler) 1 puff PRN Q6HRS PRN INH SHORTNESS OF BREATH 07/17/21 06:30 Risperidone (RisperDAL) 0.5 mg HS PO 07/18/21 21:00 07/21/21 19:40 DC 07/20/21 20:18 Olanzapine (ZyPREXA ZYDIS) 2.5 mg PRN Q2HR PRN PO PSYCHOSIS 07/18/21 18:15 07/31/21 01:15 Divalproex Sodium (Depakote Sprinkles) 125 mg BID@0900,1700 PO 07/21/21 09:00 07/25/21 01:54 DC 07/24/21 17:08 Risperidone (RisperDAL) 1 mg HS PO 07/21/21 21:00 07/29/21 18:23 DC 07/28/21 20:11 Trazodone HCl (Desyrel) 50 mg PRN QHS PRN PO INSOMNIA 07/21/21 19:45 08/03/21 01:44 Mirtazapine (Remeron) 7.5 mg QHS PO 07/21/21 21:00 07/22/21 19:52 DC 07/21/21 20:04 Mirtazapine (Remeron) 15 mg QHS PO 07/22/21 21:00 08/02/21 20:34 Melatonin (Melatonin) 3 mg QHS PO 07/22/21 21:00 07/23/21 20:00 DC 07/22/21 20:21 Melatonin (Melatonin) 4.5 mg QHS PO 07/23/21 21:00 08/02/21 20:34 Divalproex Sodium (Depakote Sprinkles) 250 mg BID@0900,1700 PO 07/25/21 09:00 07/28/21 19:57 DC 07/28/21 17:07 Nystatin (Nystop) 1 sulma BID TP 07/27/21 21:00 08/02/21 20:35 Divalproex Sodium (Depakote Sprinkles) 375 mg BID@0900,1700 PO 07/29/21 09:00 08/02/21 16:28 Risperidone (RisperDAL) 0.25 mg QHS PO 07/29/21 21:00 08/02/21 20:33 Risperidone (RisperDAL) 1 mg QHS PO 07/29/21 21:00 08/02/21 20:34 Sertraline HCl (Zoloft) 25 mg DAILY PO 08/03/21 09:00 08/05/21 12:00 Sertraline HCl (Zoloft) 50 mg DAILY PO 08/06/21 09:00 I have reviewed the current psychotropics carefully including drug interactions. Risk benefit ratio favors no change other than as noted in my dictated progress note. Diagnosis: Problems: (1) Impulse control disorder, unspecified (2) Anxiety disorder, unspecified (3) Dementia, vascular, with depression (4) Dementia, vascular, with delusions (5) Dementia in Alzheimer's disease with depression (6) Dementia in Alzheimer's disease with delusions (7) Dementia of the Alzheimer's type with early onset with behavioral disturbance (8) Major neurocognitive disorder SOO BAIRES MD Aug 03, 2021 08:34
[2021-08-03] MEDS: INSULIN LISPRO 300 UNITS/3 ML VIAL. SQ SCH ×3 (08:58→17:00)
[2021-08-03] MEDS: DIVALPROEX 125 MG CAP.SPRINK PO SCH ×2 (08:59→17:07)
[2021-08-03] MEDS: metFORMIN 500 MG TABLET PO SCH ×2 (08:59→17:07)
[2021-08-03] MEDS: SERTRALINE 25 MG TABLET. PO SCH (09:00)
[2021-08-03] MEDS: NYSTATIN TOPICAL POWDER 15GM BOTTLE. TP SCH ×2 (09:00→20:15)
--- NOTE | 2021-08-03 12:53 | NUR ---
RN Day Shift Note: Pt presents with neutral mood/affect. Pt is medication compliant and pleasant during med pass. Pt has been mostly low benjamin today. Pt was noted to be spending time in the day room with peers and staff today. Pt received a phone call from her daughter, and shortly after pt could be heard down the hallway shouting. Pt continues to have a good appetite eating 100% of meals. Pts vitals are WNL. Pt slept 7 hours last night. Will continue to monitor.
[2021-08-03 15:32] VITALS: BP 112/72
[2021-08-03] MEDS: traZODone 50 MG TABLET. PO SCH (20:15)
[2021-08-03] MEDS: MELATONIN 3 MG TABLET PO SCH (20:16)
[2021-08-03] MEDS: risperiDONE 0.25 MG TABLET. PO SCH (20:16)
[2021-08-03] MEDS: risperiDONE 1 MG TABLET. PO SCH (20:16)
[2021-08-03] MEDS: MIRTAZAPINE 15 MG TABLET PO SCH (20:16)
--- NOTE | 2021-08-03 20:45 | PDOC ---
Exam Note: [place] Note: Please also refer to the separate dictated note~for this date of service dictated separately.~Patient seen individually. Discussed the patient with Nursing staff reviewed the chart.~Reviewed interim history and current functioning. Reviewed vital signs,~Labs/ Radiology~and current medications noted below. Continue current treatment with the changes noted in the dictated addendum note Assessment: Vital Signs/I&O: Vital Signs Date Time Temp Pulse Resp B/P (MAP) Pulse Ox O2 Delivery O2 Flow Rate FiO2 08/03/21 15:32 97.4 77 20 112/72 (85) 96 Room Air I & O 08/02/21 08/02/21 08/03/21 15:00 23:00 07:00 Intake Total 840 ml 360 ml Balance 840 ml 360 ml Labs: Laboratory Tests Test 08/03/21 07:22 08/03/21 11:57 08/03/21 16:29 08/03/21 19:43 Glucose (Fingerstick) 156 mg/dL (70-99) H 98 mg/dL (70-99) 129 mg/dL (70-99) H 166 mg/dL (70-99) H Current Medications: Meds: Laboratory Tests Test 08/03/21 07:22 08/03/21 11:57 08/03/21 16:29 08/03/21 19:43 Glucose (Fingerstick) 156 mg/dL 98 mg/dL 129 mg/dL 166 mg/dL Current Medications Medications (Trade) Dose Ordered Sig/Richard Route PRN Reason Start Time Stop Time Status Last Admin Dose Admin Influenza Virus Vaccine Quadrival (Flulaval Quad [id number] Syringe) 0.5 ml ONCE ONCE VAX IM 07/17/21 09:00 07/17/21 09:01 DC 07/17/21 10:00 Acetaminophen (Tylenol) 650 mg PRN Q6HRS PRN PO PAIN/FEVER 07/16/21 22:45 UNV Metformin HCl (Glucophage) 1,000 mg BIDWMEALS PO 07/17/21 08:00 08/03/21 17:07 Nystatin (Mycostatin) 1 sulma PRN BID PRN TP RASH 07/16/21 22:45 Quetiapine Fumarate (SEROquel) 50 mg BID PO 07/17/21 09:00 07/18/21 10:56 DC 07/18/21 08:21 Trazodone HCl (Desyrel) 50 mg QHS PO 07/17/21 21:00 08/03/21 20:15 Non-Formulary Medication (Albuterol Sulfate (Albuterol Sulfate Neb Soln)) 1 vial QID PRN NEB SHORTNESS OF AIR 07/16/21 22:45 UNV Non-Formulary Medication (Insulin Aspart (Insulin Aspart Flexpen)) 100 unit PRN AFTMEALHC PRN SQ ELEVATED BLOOD SUGAR 07/16/21 22:45 UNV Acetaminophen (Tylenol) 650 mg PRN Q6HRS PRN PO MILD PAIN / TEMP > 100.3'F 07/16/21 22:45 07/29/21 02:12 Multi-Ingredient Ointment (Analgesic [place]) 1 sulma PRN QID PRN TP MUSCLE PAIN 07/16/21 22:45 Al Hydroxide/Mg Hydroxide (Mylanta Plus Xs) 15 ml PRN AFTMEALHC PRN PO DYSPEPSIA 07/16/21 22:45 Magnesium Hydroxide (Milk Of Magnesia) 2,400 mg PRN QHS PRN PO CONSTIPATION 07/16/21 22:45 Albuterol Sulfate (Ventolin) 2.5 mg PRN Q6HRS PRN NEB SHORTNESS OF BREATH 07/16/21 23:00 07/17/21 06:25 DC Insulin Human Lispro (HumaLOG) 0-5 UNITS TIDWMEALS SQ 07/17/21 08:00 08/03/21 08:58 Dextrose (Dextrose 50%-Water Syringe) 12.5 gm PRN Q15MIN PRN IV SEE COMMENTS 07/17/21 00:15 Albuterol Sulfate (Ventolin Hfa Inhaler) 1 puff PRN Q6HRS PRN INH SHORTNESS OF BREATH 07/17/21 06:30 Risperidone (RisperDAL) 0.5 mg HS PO 07/18/21 21:00 07/21/21 19:40 DC 07/20/21 20:18 Olanzapine (ZyPREXA ZYDIS) 2.5 mg PRN Q2HR PRN PO PSYCHOSIS 07/18/21 18:15 07/31/21 01:15 Divalproex Sodium (Depakote Sprinkles) 125 mg BID@0900,1700 PO 07/21/21 09:00 07/25/21 01:54 DC 07/24/21 17:08 Risperidone (RisperDAL) 1 mg HS PO 07/21/21 21:00 07/29/21 18:23 DC 07/28/21 20:11 Trazodone HCl (Desyrel) 50 mg PRN QHS PRN PO INSOMNIA 07/21/21 19:45 08/03/21 01:44 Mirtazapine (Remeron) 7.5 mg QHS PO 07/21/21 21:00 07/22/21 19:52 DC 07/21/21 20:04 Mirtazapine (Remeron) 15 mg QHS PO 07/22/21 21:00 08/03/21 20:16 Melatonin (Melatonin) 3 mg QHS PO 07/22/21 21:00 07/23/21 20:00 DC 07/22/21 20:21 Melatonin (Melatonin) 4.5 mg QHS PO 07/23/21 21:00 08/03/21 20:16 Divalproex Sodium (Depakote Sprinkles) 250 mg BID@0900,1700 PO 07/25/21 09:00 07/28/21 19:57 DC 07/28/21 17:07 Nystatin (Nystop) 1 sulma BID TP 07/27/21 21:00 08/03/21 20:15 Divalproex Sodium (Depakote Sprinkles) 375 mg BID@0900,1700 PO 07/29/21 09:00 08/03/21 17:07 Risperidone (RisperDAL) 0.25 mg QHS PO 07/29/21 21:00 08/03/21 20:16 Risperidone (RisperDAL) 1 mg QHS PO 07/29/21 21:00 08/03/21 20:16 Sertraline HCl (Zoloft) 25 mg DAILY PO 08/03/21 09:00 08/05/21 12:00 08/03/21 09:00 Sertraline HCl (Zoloft) 50 mg DAILY PO 08/06/21 09:00 Current Medications Medications (Trade) Dose Ordered Sig/Richard Route PRN Reason Start Time Stop Time Status Last Admin Dose Admin Sertraline HCl (Zoloft) 25 mg DAILY PO 08/03/21 09:00 08/05/21 12:00 08/03/21 09:00 I have reviewed the current psychotropics carefully including drug interactions. Risk benefit ratio favors no change other than as noted in my dictated progress note. Diagnosis: Problems: (1) Impulse control disorder, unspecified (2) Anxiety disorder, unspecified (3) Dementia, vascular, with depression (4) Dementia, vascular, with delusions (5) Dementia in Alzheimer's disease with depression (6) Dementia in Alzheimer's disease with delusions (7) Dementia of the Alzheimer's type with early onset with behavioral disturbance (8) Major neurocognitive disorder SOO BAIRES MD Aug 03, 2021 20:45
--- NOTE | 2021-08-03 23:17 | NUR ---
Patient is located in her room for assessments and medications. She is awake in bed. Disorganized, confused. Patient has voiced no delusions/hallucinations so far this shift. She was compliant with assessments and took her medications whole. Patient appears to be sleeping comfortably at present time. Will continue to monitor.
[2021-08-04] MEDS: traZODone 50 MG TABLET. PO PRN (01:09)
[2021-08-04 05:44] VITALS: BP 127/67
--- NOTE | 2021-08-04 07:38 | PDOC ---
Exam Note: [place] Note: This note is a late entry for 08/02/2021 covers elements not covered in my initial note. Subjective: The patient was seen individually in the evening of 08/02/2021 with Debbie TANG, discussed and reviewed the chart. The patient slept 3-3/4 hours previous night. She remains confused, been yelling out at times, delusional that there are babies on the floor here. She was seen by speech therapy due to her choking and their recommendations are being followed. Review of Systems: Ambulation impaired in wheelchair. No CV, , pulmonary, eye, ENT system symptoms on review. Reliability poor. Mental Status Exam: The patient is oriented to herself. Insight and judgment, recent and remote memory, attention and concentration, fund of knowledge is poor consistent with her diagnosis. Laboratory Data: Reviewed. Impression: Major neurocognitive disorder Alzheimer, vascular, with delusions, depression, behavioral disturbance. Anxiety disorder unspecified. Impulse control disorder unspecified. Plan: Continue current psychotropics. Assessment: Vital Signs/I&O: Vital Signs Date Time Temp Pulse Resp B/P (MAP) Pulse Ox O2 Delivery O2 Flow Rate FiO2 08/04/21 05:44 98.0 85 20 127/67 (87) 93 08/03/21 15:32 Room Air I & O 08/03/21 08/03/21 08/04/21 15:00 23:00 07:00 Intake Total 720 ml 240 ml Balance 720 ml 240 ml Labs: Laboratory Tests Test 08/03/21 11:57 08/03/21 16:29 08/03/21 19:43 08/04/21 07:35 Glucose (Fingerstick) 98 mg/dL (70-99) 129 mg/dL (70-99) H 166 mg/dL (70-99) H 91 mg/dL (70-99) Current Medications: Meds: Laboratory Tests Test 08/03/21 11:57 08/03/21 16:29 08/03/21 19:43 08/04/21 07:35 Glucose (Fingerstick) 98 mg/dL 129 mg/dL 166 mg/dL 91 mg/dL Current Medications Medications (Trade) Dose Ordered Sig/Richard Route PRN Reason Start Time Stop Time Status Last Admin Dose Admin Influenza Virus Vaccine Quadrival (Flulaval Quad Syringe) 0.5 ml ONCE ONCE VAX IM 07/17/21 09:00 07/17/21 09:01 DC 07/17/21 10:00 Acetaminophen (Tylenol) 650 mg PRN Q6HRS PRN PO PAIN/FEVER 07/16/21 22:45 UNV Metformin HCl (Glucophage) 1,000 mg BIDWMEALS PO 07/17/21 08:00 08/03/21 17:07 Nystatin (Mycostatin) 1 sulma PRN BID PRN TP RASH 07/16/21 22:45 Quetiapine Fumarate (SEROquel) 50 mg BID PO 07/17/21 09:00 07/18/21 10:56 DC 07/18/21 08:21 Trazodone HCl (Desyrel) 50 mg QHS PO 07/17/21 21:00 08/03/21 20:15 Non-Formulary Medication (Albuterol Sulfate (Albuterol Sulfate Neb Soln)) 1 vial QID PRN NEB SHORTNESS OF AIR 07/16/21 22:45 UNV Non-Formulary Medication (Insulin Aspart (Insulin Aspart Flexpen)) 100 unit PRN AFTMEALHC PRN SQ ELEVATED BLOOD SUGAR 07/16/21 22:45 UNV Acetaminophen (Tylenol) 650 mg PRN Q6HRS PRN PO MILD PAIN / TEMP > 100.3'F 07/16/21 22:45 07/29/21 02:12 Multi-Ingredient Ointment (Analgesic [place]) 1 sulma PRN QID PRN TP MUSCLE PAIN 07/16/21 22:45 Al Hydroxide/Mg Hydroxide (Mylanta Plus Xs) 15 ml PRN AFTMEALHC PRN PO DYSPEPSIA 07/16/21 22:45 Magnesium Hydroxide (Milk Of Magnesia) 2,400 mg PRN QHS PRN PO CONSTIPATION 07/16/21 22:45 Albuterol Sulfate (Ventolin) 2.5 mg PRN Q6HRS PRN NEB SHORTNESS OF BREATH 07/16/21 23:00 07/17/21 06:25 DC Insulin Human Lispro (HumaLOG) 0-5 UNITS TIDWMEALS SQ 07/17/21 08:00 08/03/21 08:58 Dextrose (Dextrose 50%-Water Syringe) 12.5 gm PRN Q15MIN PRN IV SEE COMMENTS 07/17/21 00:15 Albuterol Sulfate (Ventolin Hfa Inhaler) 1 puff PRN Q6HRS PRN INH SHORTNESS OF BREATH 07/17/21 06:30 Risperidone (RisperDAL) 0.5 mg HS PO 07/18/21 21:00 07/21/21 19:40 DC 07/20/21 20:18 Olanzapine (ZyPREXA ZYDIS) 2.5 mg PRN Q2HR PRN PO PSYCHOSIS 07/18/21 18:15 08/04/21 01:09 Divalproex Sodium (Depakote Sprinkles) 125 mg BID@0900,1700 PO 07/21/21 09:00 07/25/21 01:54 DC 07/24/21 17:08 Risperidone (RisperDAL) 1 mg HS PO 07/21/21 21:00 07/29/21 18:23 DC 07/28/21 20:11 Trazodone HCl (Desyrel) 50 mg PRN QHS PRN PO INSOMNIA 07/21/21 19:45 08/04/21 01:09 Mirtazapine (Remeron) 7.5 mg QHS PO 07/21/21 21:00 07/22/21 19:52 DC 07/21/21 20:04 Mirtazapine (Remeron) 15 mg QHS PO 07/22/21 21:00 08/03/21 20:16 Melatonin (Melatonin) 3 mg QHS PO 07/22/21 21:00 07/23/21 20:00 DC 07/22/21 20:21 Melatonin (Melatonin) 4.5 mg QHS PO 07/23/21 21:00 08/03/21 20:16 Divalproex Sodium (Depakote Sprinkles) 250 mg BID@0900,1700 PO 07/25/21 09:00 07/28/21 19:57 DC 07/28/21 17:07 Nystatin (Nystop) 1 sulma BID TP 07/27/21 21:00 08/03/21 20:15 Divalproex Sodium (Depakote Sprinkles) 375 mg BID@0900,1700 PO 07/29/21 09:00 08/03/21 17:07 Risperidone (RisperDAL) 0.25 mg QHS PO 07/29/21 21:00 08/03/21 20:16 Risperidone (RisperDAL) 1 mg QHS PO 07/29/21 21:00 08/03/21 20:16 Sertraline HCl (Zoloft) 25 mg DAILY PO 08/03/21 09:00 08/05/21 12:00 08/03/21 09:00 Sertraline HCl (Zoloft) 50 mg DAILY PO 08/06/21 09:00 Current Medications Medications (Trade) Dose Ordered Sig/Richard Route PRN Reason Start Time Stop Time Status Last Admin Dose Admin Sertraline HCl (Zoloft) 25 mg DAILY PO 08/03/21 09:00 08/05/21 12:00 08/03/21 09:00 I have reviewed the current psychotropics carefully including drug interactions. Risk benefit ratio favors no change other than as noted in my dictated progress note. Diagnosis: Problems: (1) Impulse control disorder, unspecified (2) Anxiety disorder, unspecified (3) Dementia, vascular, with depression (4) Dementia, vascular, with delusions (5) Dementia in Alzheimer's disease with depression (6) Dementia in Alzheimer's disease with delusions (7) Dementia of the Alzheimer's type with early onset with behavioral disturbance (8) Major neurocognitive disorder SOO BAIRES MD Aug 04, 2021 07:38
[2021-08-04] MEDS: INSULIN LISPRO 300 UNITS/3 ML VIAL. SQ SCH ×3 (08:00→17:00)
--- NOTE | 2021-08-04 08:03 | PDOC ---
Exam Note: Troy Note: This note is a late entry for 08/03/2021 covers elements not covered in my initial note. Subjective: The patient was seen individually in the evening of 08/03/2021 with Gloria TANG, discussed and reviewed the chart. The patient slept 7 hours previous night. She remains confused, have been shouting and yelling at times though it is better today than the day before. I met with her in the hallway. Review of Systems: Ambulation impaired in wheelchair. No CV, , pulmonary, eye, ENT system symptoms on review. Reliability poor. Mental Status Exam: The patient is oriented to herself. Insight and judgment, recent and remote memory, attention and concentration, fund of knowledge is poor consistent with her diagnosis. Laboratory Data: Reviewed. Impression: Major neurocognitive disorder Alzheimer, vascular, with delusions, depression, behavioral disturbance. Anxiety disorder unspecified. Impulse control disorder unspecified. Plan: Continue current psychotropics. Assessment: Vital Signs/I&O: Vital Signs Date Time Temp Pulse Resp B/P (MAP) Pulse Ox O2 Delivery O2 Flow Rate FiO2 08/04/21 05:44 98.0 85 20 127/67 (87) 93 08/03/21 15:32 Room Air I & O 08/03/21 08/03/21 08/04/21 15:00 23:00 07:00 Intake Total 720 ml 240 ml Balance 720 ml 240 ml Labs: Laboratory Tests Test 08/03/21 11:57 08/03/21 16:29 08/03/21 19:43 08/04/21 07:35 Glucose (Fingerstick) 98 mg/dL (70-99) 129 mg/dL (70-99) H 166 mg/dL (70-99) H 91 mg/dL (70-99) Current Medications: Meds: Laboratory Tests Test 08/03/21 11:57 08/03/21 16:29 08/03/21 19:43 08/04/21 07:35 Glucose (Fingerstick) 98 mg/dL 129 mg/dL 166 mg/dL 91 mg/dL Current Medications Medications (Trade) Dose Ordered Sig/Richard Route PRN Reason Start Time Stop Time Status Last Admin Dose Admin Influenza Virus Vaccine Quadrival (Flulaval Quad Syringe) 0.5 ml ONCE ONCE VAX IM 07/17/21 09:00 07/17/21 09:01 DC 07/17/21 10:00 Acetaminophen (Tylenol) 650 mg PRN Q6HRS PRN PO PAIN/FEVER 07/16/21 22:45 UNV Metformin HCl (Glucophage) 1,000 mg BIDWMEALS PO 07/17/21 08:00 08/03/21 17:07 Nystatin (Mycostatin) 1 sulma PRN BID PRN TP RASH 07/16/21 22:45 Quetiapine Fumarate (SEROquel) 50 mg BID PO 07/17/21 09:00 07/18/21 10:56 DC 07/18/21 08:21 Trazodone HCl (Desyrel) 50 mg QHS PO 07/17/21 21:00 08/03/21 20:15 Non-Formulary Medication (Albuterol Sulfate (Albuterol Sulfate Neb Soln)) 1 vial QID PRN NEB SHORTNESS OF AIR 07/16/21 22:45 UNV Non-Formulary Medication (Insulin Aspart (Insulin Aspart Flexpen)) 100 unit PRN AFTMEALHC PRN SQ ELEVATED BLOOD SUGAR 07/16/21 22:45 UNV Acetaminophen (Tylenol) 650 mg PRN Q6HRS PRN PO MILD PAIN / TEMP > 100.3'F 07/16/21 22:45 07/29/21 02:12 Multi-Ingredient Ointment (Analgesic [place]) 1 sulma PRN QID PRN TP MUSCLE PAIN 07/16/21 22:45 Al Hydroxide/Mg Hydroxide (Mylanta Plus Xs) 15 ml PRN AFTMEALHC PRN PO DYSPEPSIA 07/16/21 22:45 Magnesium Hydroxide (Milk Of Magnesia) 2,400 mg PRN QHS PRN PO CONSTIPATION 07/16/21 22:45 Albuterol Sulfate (Ventolin) 2.5 mg PRN Q6HRS PRN NEB SHORTNESS OF BREATH 07/16/21 23:00 07/17/21 06:25 DC Insulin Human Lispro (HumaLOG) 0-5 UNITS TIDWMEALS SQ 07/17/21 08:00 08/03/21 08:58 Dextrose (Dextrose 50%-Water Syringe) 12.5 gm PRN Q15MIN PRN IV SEE COMMENTS 07/17/21 00:15 Albuterol Sulfate (Ventolin Hfa Inhaler) 1 puff PRN Q6HRS PRN INH SHORTNESS OF BREATH 07/17/21 06:30 Risperidone (RisperDAL) 0.5 mg HS PO 07/18/21 21:00 07/21/21 19:40 DC 07/20/21 20:18 Olanzapine (ZyPREXA ZYDIS) 2.5 mg PRN Q2HR PRN PO PSYCHOSIS 07/18/21 18:15 08/04/21 01:09 Divalproex Sodium (Depakote Sprinkles) 125 mg BID@0900,1700 PO 07/21/21 09:00 07/25/21 01:54 DC 07/24/21 17:08 Risperidone (RisperDAL) 1 mg HS PO 07/21/21 21:00 07/29/21 18:23 DC 07/28/21 20:11 Trazodone HCl (Desyrel) 50 mg PRN QHS PRN PO INSOMNIA 07/21/21 19:45 08/04/21 01:09 Mirtazapine (Remeron) 7.5 mg QHS PO 07/21/21 21:00 07/22/21 19:52 DC 07/21/21 20:04 Mirtazapine (Remeron) 15 mg QHS PO 07/22/21 21:00 08/03/21 20:16 Melatonin (Melatonin) 3 mg QHS PO 07/22/21 21:00 07/23/21 20:00 DC 07/22/21 20:21 Melatonin (Melatonin) 4.5 mg QHS PO 07/23/21 21:00 08/03/21 20:16 Divalproex Sodium (Depakote Sprinkles) 250 mg BID@0900,1700 PO 07/25/21 09:00 07/28/21 19:57 DC 07/28/21 17:07 Nystatin (Nystop) 1 sulma BID TP 07/27/21 21:00 08/03/21 20:15 Divalproex Sodium (Depakote Sprinkles) 375 mg BID@0900,1700 PO 07/29/21 09:00 08/03/21 17:07 Risperidone (RisperDAL) 0.25 mg QHS PO 07/29/21 21:00 11/27/21 20:16 Risperidone (RisperDAL) 1 mg QHS PO 07/29/21 21:00 08/03/21 20:16 Sertraline HCl (Zoloft) 25 mg DAILY PO 08/03/21 09:00 08/05/21 12:00 08/03/21 09:00 Sertraline HCl (Zoloft) 50 mg DAILY PO 08/06/21 09:00 Current Medications Medications (Trade) Dose Ordered Sig/Richard Route PRN Reason Start Time Stop Time Status Last Admin Dose Admin Sertraline HCl (Zoloft) 25 mg DAILY PO 08/03/21 09:00 08/05/21 12:00 08/03/21 09:00 I have reviewed the current psychotropics carefully including drug interactions. Risk benefit ratio favors no change other than as noted in my dictated progress note. Diagnosis: Problems: (1) Impulse control disorder, unspecified (2) Anxiety disorder, unspecified (3) Dementia, vascular, with depression (4) Dementia, vascular, with delusions (5) Dementia in Alzheimer's disease with depression (6) Dementia in Alzheimer's disease with delusions (7) Dementia of the Alzheimer's type with early onset with behavioral disturbance (8) Major neurocognitive disorder SOO BAIRES MD Aug 04, 2021 08:03
[2021-08-04] MEDS: metFORMIN 500 MG TABLET PO SCH ×2 (08:39→17:18)
[2021-08-04] MEDS: DIVALPROEX 125 MG CAP.SPRINK PO SCH ×2 (08:39→17:18)
[2021-08-04] MEDS: SERTRALINE 25 MG TABLET. PO SCH (08:39)
[2021-08-04] MEDS: NYSTATIN TOPICAL POWDER 15GM BOTTLE. TP SCH ×2 (09:00→20:02)
--- NOTE | 2021-08-04 14:28 | NUR ---
Nursing note: Patient was in the dinning room for morning medications & assessment. She is compliant with medications taken whole. She is alert and oriented to self only. She yells out unprovoked, demanding, as well as sarcastic. Patient propels self in w/c or uses walker, however she doesn't always participate requiring a 2:1 lift assist. She is confused disorganized, & delusional. She is currently sitting in her w/c in her room. Will continue to monitor.
[2021-08-04 15:33] VITALS: BP 157/78
[2021-08-04] MEDS: MIRTAZAPINE 15 MG TABLET PO SCH (20:00)
[2021-08-04] MEDS: MELATONIN 3 MG TABLET PO SCH (20:00)
[2021-08-04] MEDS: risperiDONE 0.25 MG TABLET. PO SCH (20:00)
[2021-08-04] MEDS: traZODone 50 MG TABLET. PO SCH (20:00)
[2021-08-04] MEDS: risperiDONE 1 MG TABLET. PO SCH (20:00)
--- NOTE | 2021-08-04 20:23 | PDOC ---
Exam Note: Troy Note: Please also refer to the separate dictated note~for this date of service dictated separately.~Patient seen individually. Discussed the patient with Nursing staff reviewed the chart.~Reviewed interim history and current functioning. Reviewed vital signs,~Labs/ Radiology~and current medications noted below. Continue current treatment with the changes noted in the dictated addendum note Assessment: Vital Signs/I&O: Vital Signs Date Time Temp Pulse Resp B/P (MAP) Pulse Ox O2 Delivery O2 Flow Rate FiO2 08/04/21 15:33 98.1 78 20 157/78 (104) 94 08/03/21 15:32 Room Air I & O 08/03/21 08/03/21 08/04/21 15:00 23:00 07:00 Intake Total 720 ml 240 ml Balance 720 ml 240 ml Labs: Laboratory Tests Test 08/04/21 07:35 08/04/21 11:38 08/04/21 16:54 08/04/21 19:19 Glucose (Fingerstick) 91 mg/dL (70-99) 97 mg/dL (70-99) 105 mg/dL (70-99) H 111 mg/dL (70-99) H Current Medications: Meds: Laboratory Tests Test 08/04/21 07:35 08/04/21 11:38 08/04/21 16:54 08/04/21 19:19 Glucose (Fingerstick) 91 mg/dL 97 mg/dL 105 mg/dL 111 mg/dL Current Medications Medications (Trade) Dose Ordered Sig/Richard Route PRN Reason Start Time Stop Time Status Last Admin Dose Admin Influenza Virus Vaccine Quadrival (Flulaval Quad Syringe) 0.5 ml ONCE ONCE VAX IM 07/17/21 09:00 07/17/21 09:01 DC 07/17/21 10:00 Acetaminophen (Tylenol) 650 mg PRN Q6HRS PRN PO PAIN/FEVER 07/16/21 22:45 UNV Metformin HCl (Glucophage) 1,000 mg BIDWMEALS PO 07/17/21 08:00 08/04/21 17:18 Nystatin (Mycostatin) 1 sulma PRN BID PRN TP RASH 07/16/21 22:45 Quetiapine Fumarate (SEROquel) 50 mg BID PO 07/17/21 09:00 07/18/21 10:56 DC 07/18/21 08:21 Trazodone HCl (Desyrel) 50 mg QHS PO 07/17/21 21:00 08/04/21 20:00 Non-Formulary Medication (Albuterol Sulfate (Albuterol Sulfate Neb Soln)) 1 vial QID PRN NEB SHORTNESS OF AIR 07/16/21 22:45 UNV Non-Formulary Medication (Insulin Aspart (Insulin Aspart Flexpen)) 100 unit PRN AFTMEALHC PRN SQ ELEVATED BLOOD SUGAR 07/16/21 22:45 UNV Acetaminophen (Tylenol) 650 mg PRN Q6HRS PRN PO MILD PAIN / TEMP > 100.3'F 07/16/21 22:45 07/29/21 02:12 Multi-Ingredient Ointment (Analgesic [place]) 1 sulma PRN QID PRN TP MUSCLE PAIN 07/16/21 22:45 Al Hydroxide/Mg Hydroxide (Mylanta Plus Xs) 15 ml PRN AFTMEALHC PRN PO DYSPEPSIA 07/16/21 22:45 Magnesium Hydroxide (Milk Of Magnesia) 2,400 mg PRN QHS PRN PO CONSTIPATION 07/16/21 22:45 Albuterol Sulfate (Ventolin) 2.5 mg PRN Q6HRS PRN NEB SHORTNESS OF BREATH 07/16/21 23:00 07/17/21 06:25 DC Insulin Human Lispro (HumaLOG) 0-5 UNITS TIDWMEALS SQ 07/17/21 08:00 08/03/21 08:58 Dextrose (Dextrose 50%-Water Syringe) 12.5 gm PRN Q15MIN PRN IV SEE COMMENTS 07/17/21 00:15 Albuterol Sulfate (Ventolin Hfa Inhaler) 1 puff PRN Q6HRS PRN INH SHORTNESS OF BREATH 07/17/21 06:30 Risperidone (RisperDAL) 0.5 mg HS PO 07/18/21 21:00 07/21/21 19:40 DC 07/20/21 20:18 Olanzapine (ZyPREXA ZYDIS) 2.5 mg PRN Q2HR PRN PO PSYCHOSIS 07/18/21 18:15 08/04/21 01:09 Divalproex Sodium (Depakote Sprinkles) 125 mg BID@0900,1700 PO 07/21/21 09:00 07/25/21 01:54 DC 07/24/21 17:08 Risperidone (RisperDAL) 1 mg HS PO 07/21/21 21:00 07/29/21 18:23 DC 07/28/21 20:11 Trazodone HCl (Desyrel) 50 mg PRN QHS PRN PO INSOMNIA 07/21/21 19:45 08/04/21 01:09 Mirtazapine (Remeron) 7.5 mg QHS PO 07/21/21 21:00 07/22/21 19:52 DC 07/21/21 20:04 Mirtazapine (Remeron) 15 mg QHS PO 07/22/21 21:00 08/04/21 20:00 Melatonin (Melatonin) 3 mg QHS PO 07/22/21 21:00 07/23/21 20:00 DC 07/22/21 20:21 Melatonin (Melatonin) 4.5 mg QHS PO 07/23/21 21:00 08/04/21 20:00 Divalproex Sodium (Depakote Sprinkles) 250 mg BID@0900,1700 PO 07/25/21 09:00 07/28/21 19:57 DC 07/28/21 17:07 Nystatin (Nystop) 1 sulma BID TP 07/27/21 21:00 08/04/21 20:02 Divalproex Sodium (Depakote Sprinkles) 375 mg BID@0900,1700 PO 07/29/21 09:00 08/04/21 17:18 Risperidone (RisperDAL) 0.25 mg QHS PO 07/29/21 21:00 08/04/21 20:00 Risperidone (RisperDAL) 1 mg QHS PO 07/29/21 21:00 08/04/21 20:00 Sertraline HCl (Zoloft) 25 mg DAILY PO 08/03/21 09:00 08/05/21 12:00 08/04/21 08:39 Sertraline HCl (Zoloft) 50 mg DAILY PO 08/06/21 09:00 I have reviewed the current psychotropics carefully including drug interactions. Risk benefit ratio favors no change other than as noted in my dictated progress note. Diagnosis: Problems: (1) Impulse control disorder, unspecified (2) Anxiety disorder, unspecified (3) Dementia, vascular, with depression (4) Dementia, vascular, with delusions (5) Dementia in Alzheimer's disease with depression (6) Dementia in Alzheimer's disease with delusions (7) Dementia of the Alzheimer's type with early onset with behavioral disturbance (8) Major neurocognitive disorder SOO BAIRES MD Aug 04, 2021 20:23
--- NOTE | 2021-08-04 21:38 | NUR ---
Patient was sitting in her room, in her wheelchair talking to herself. Patient cooperative, medication compliant. Patient is delusional, she stated "The coyote brought me here and then moved my clothes around" when nurse asked if she knew where she was. Patients hospital band on her left wrist was bothering her, she stated it itched. Nurse removed it and noticed a reddened, rash like area where arm band had been. New hospital band placed on patients right wrist. Will monitor left wrist. Patient remained hyperverbal and could be heard talking to herself in bed until she fell asleep.
[2021-08-05 06:08] VITALS: BP 110/61
--- NOTE | 2021-08-05 06:57 | PDOC ---
Exam Note: Troy Note: This note is a late entry for 08/04/2021 covers elements not covered in my initial note. Subjective: The patient was seen individually in the evening of 08/04/2021 with Iris TANG, discussed and reviewed the chart. The patient slept 8-1/4 hours previous night. She remains confused, hyperverbal. She is delusional talking about coyote who brought her here, rambling in her speech, compliant with medications. I met with her in the hallway outside the dining room. She is anxious, restless, constantly moving. Later she was in another male patients rooms after I had completed rounds on the other patients and she was able to accept redirection as I directed her towards her own room. Review of Systems: Ambulation impaired in wheelchair. No CV, , pulmonary, eye, ENT system symptoms on review. Mental Status Exam: The patient is oriented to herself. Insight and judgment, recent and remote memory, attention and concentration, fund of knowledge is poor consistent with her diagnosis. Laboratory Data: Reviewed. Impression: Major neurocognitive disorder Alzheimer, vascular, with delusions, depression, behavioral disturbance. Anxiety disorder unspecified. Impulse control disorder unspecified. Plan: Continue current psychotropics. Despite her delusions, we will keep Risperdal 1.25 mg h.s. given the risk-benefit ratio which I have carefully considered. If really needed, we may need to increase it again but we will see how her anxiety does with the recent increase in the Zoloft. Valproic acid level is therapeutic at 51. Assessment: Vital Signs/I&O: Vital Signs Date Time Temp Pulse Resp B/P (MAP) Pulse Ox O2 Delivery O2 Flow Rate FiO2 08/05/21 06:08 97.1 74 20 110/61 (77) 91 08/03/21 15:32 Room Air I & O 08/04/21 08/04/21 08/05/21 15:00 23:00 07:00 Intake Total 660 ml 480 ml Balance 660 ml 480 ml Labs: Laboratory Tests Test 08/04/21 07:35 08/04/21 11:38 08/04/21 16:54 08/04/21 19:19 Glucose (Fingerstick) 91 mg/dL (70-99) 97 mg/dL (70-99) 105 mg/dL (70-99) H 111 mg/dL (70-99) H Current Medications: Meds: Laboratory Tests Test 08/04/21 07:35 08/04/21 11:38 08/04/21 16:54 08/04/21 19:19 Glucose (Fingerstick) 91 mg/dL 97 mg/dL 105 mg/dL 111 mg/dL Current Medications Medications (Trade) Dose Ordered Sig/Richard Route PRN Reason Start Time Stop Time Status Last Admin Dose Admin Influenza Virus Vaccine Quadrival (Flulaval Quad Syringe) 0.5 ml ONCE ONCE VAX IM 07/17/21 09:00 07/17/21 09:01 DC 07/17/21 10:00 Acetaminophen (Tylenol) 650 mg PRN Q6HRS PRN PO PAIN/FEVER 07/16/21 22:45 UNV Metformin HCl (Glucophage) 1,000 mg BIDWMEALS PO 07/17/21 08:00 08/04/21 17:18 Nystatin (Mycostatin) 1 sulma PRN BID PRN TP RASH 07/16/21 22:45 Quetiapine Fumarate (SEROquel) 50 mg BID PO 07/17/21 09:00 07/18/21 10:56 DC 07/18/21 08:21 Trazodone HCl (Desyrel) 50 mg QHS PO 07/17/21 21:00 08/04/21 20:00 Non-Formulary Medication (Albuterol Sulfate (Albuterol Sulfate Neb Soln)) 1 vial QID PRN NEB SHORTNESS OF AIR 07/16/21 22:45 UNV Non-Formulary Medication (Insulin Aspart (Insulin Aspart Flexpen)) 100 unit PRN AFTMEALHC PRN SQ ELEVATED BLOOD SUGAR 07/16/21 22:45 UNV Acetaminophen (Tylenol) 650 mg PRN Q6HRS PRN PO MILD PAIN / TEMP > 100.3'F 07/16/21 22:45 07/29/21 02:12 Multi-Ingredient Ointment (Analgesic [place]) 1 sulma PRN QID PRN TP MUSCLE PAIN 07/16/21 22:45 Al Hydroxide/Mg Hydroxide (Mylanta Plus Xs) 15 ml PRN AFTMEALHC PRN PO DYSPEPSIA 07/16/21 22:45 Magnesium Hydroxide (Milk Of Magnesia) 2,400 mg PRN QHS PRN PO CONSTIPATION 07/16/21 22:45 Albuterol Sulfate (Ventolin) 2.5 mg PRN Q6HRS PRN NEB SHORTNESS OF BREATH 07/16/21 23:00 07/17/21 06:25 DC Insulin Human Lispro (HumaLOG) 0-5 UNITS TIDWMEALS SQ 07/17/21 08:00 08/03/21 08:58 Dextrose (Dextrose 50%-Water Syringe) 12.5 gm PRN Q15MIN PRN IV SEE COMMENTS 07/17/21 00:15 Albuterol Sulfate (Ventolin Hfa Inhaler) 1 puff PRN Q6HRS PRN INH SHORTNESS OF BREATH 07/17/21 06:30 Risperidone (RisperDAL) 0.5 mg HS PO 07/18/21 21:00 07/21/21 19:40 DC 07/20/21 20:18 Olanzapine (ZyPREXA ZYDIS) 2.5 mg PRN Q2HR PRN PO PSYCHOSIS 07/18/21 18:15 08/04/21 01:09 Divalproex Sodium (Depakote Sprinkles) 125 mg BID@0900,1700 PO 07/21/21 09:00 07/25/21 01:54 DC 07/24/21 17:08 Risperidone (RisperDAL) 1 mg HS PO 07/21/21 21:00 07/29/21 18:23 DC 07/28/21 20:11 Trazodone HCl (Desyrel) 50 mg PRN QHS PRN PO INSOMNIA 07/21/21 19:45 08/04/21 01:09 Mirtazapine (Remeron) 7.5 mg QHS PO 07/21/21 21:00 07/22/21 19:52 DC 07/21/21 20:04 Mirtazapine (Remeron) 15 mg QHS PO 07/22/21 21:00 08/04/21 20:00 Melatonin (Melatonin) 3 mg QHS PO 07/22/21 21:00 07/23/21 20:00 DC 07/22/21 20:21 Melatonin (Melatonin) 4.5 mg QHS PO 07/23/21 21:00 08/04/21 20:00 Divalproex Sodium (Depakote Sprinkles) 250 mg BID@0900,1700 PO 07/25/21 09:00 07/28/21 19:57 DC 07/28/21 17:07 Nystatin (Nystop) 1 sulma BID TP 07/27/21 21:00 08/04/21 20:02 Divalproex Sodium (Depakote Sprinkles) 375 mg BID@0900,1700 PO 07/29/21 09:00 08/04/21 17:18 Risperidone (RisperDAL) 0.25 mg QHS PO 07/29/21 21:00 08/04/21 20:00 Risperidone (RisperDAL) 1 mg QHS PO 07/29/21 21:00 08/04/21 20:00 Sertraline HCl (Zoloft) 25 mg DAILY PO 08/03/21 09:00 08/05/21 12:00 08/04/21 08:39 Sertraline HCl (Zoloft) 50 mg DAILY PO 08/06/21 09:00 I have reviewed the current psychotropics carefully including drug interactions. Risk benefit ratio favors no change other than as noted in my dictated progress note. Diagnosis: Problems: (1) Impulse control disorder, unspecified (2) Anxiety disorder, unspecified (3) Dementia, vascular, with depression (4) Dementia, vascular, with delusions (5) Dementia in Alzheimer's disease with depression (6) Dementia in Alzheimer's disease with delusions (7) Dementia of the Alzheimer's type with early onset with behavioral disturbance (8) Major neurocognitive disorder SOO BAIRES MD Aug 05, 2021 06:57
[2021-08-05] MEDS: SERTRALINE 25 MG TABLET. PO SCH (08:32)
[2021-08-05] MEDS: DIVALPROEX 125 MG CAP.SPRINK PO SCH ×2 (08:32→17:25)
[2021-08-05] MEDS: metFORMIN 500 MG TABLET PO SCH ×2 (08:32→17:25)
[2021-08-05] MEDS: INSULIN LISPRO 300 UNITS/3 ML VIAL. SQ SCH ×3 (08:33→17:00)
[2021-08-05] MEDS: NYSTATIN TOPICAL POWDER 15GM BOTTLE. TP SCH ×2 (09:00→19:49)
--- NOTE | 2021-08-05 14:13 | NUR ---
Nursing note: Patient was in the dinning room for morning medications & assessment. She is compliant with medications taken whole. She is alert and oriented to self only. She yells out unprovoked, demanding, as well as sarcastic. Patient propels self in w/c or uses walker, however she doesn't always participate requiring a 2:1 transfer assist. She is confused disorganized, & delusional. She went to the day room before lunch, she was calling peers and staff peyton & emma rodrigues. She is currently resting in bed with eyes closed. Will continue to monitor.
[2021-08-05 15:30] VITALS: BP 119/69
[2021-08-05] MEDS: risperiDONE 1 MG TABLET. PO SCH (19:48)
[2021-08-05] MEDS: traZODone 50 MG TABLET. PO SCH (19:48)
[2021-08-05] MEDS: risperiDONE 0.25 MG TABLET. PO SCH (19:48)
[2021-08-05] MEDS: MELATONIN 3 MG TABLET PO SCH (19:49)
[2021-08-05] MEDS: MIRTAZAPINE 15 MG TABLET PO SCH (19:49)
--- NOTE | 2021-08-05 21:11 | PDOC ---
Exam Note: Troy Note: Please also refer to the separate dictated note~for this date of service dictated separately.~Patient seen individually. Discussed the patient with Nursing staff reviewed the chart.~Reviewed interim history and current functioning. Reviewed vital signs,~Labs/ Radiology~and current medications noted below. Continue current treatment with the changes noted in the dictated addendum note Assessment: Vital Signs/I&O: Vital Signs Date Time Temp Pulse Resp B/P (MAP) Pulse Ox O2 Delivery O2 Flow Rate FiO2 08/05/21 15:30 97.0 84 20 119/69 (86) 93 08/03/21 15:32 Room Air I & O 08/04/21 08/04/21 08/05/21 15:00 23:00 07:00 Intake Total 660 ml 480 ml Balance 660 ml 480 ml Labs: Laboratory Tests Test 08/05/21 06:00 08/05/21 07:30 08/05/21 11:36 08/05/21 16:22 SARS-CoV-2 (PCR) Not detected (NOT DETECTD) Glucose (Fingerstick) 87 mg/dL (70-99) 101 mg/dL (70-99) H 106 mg/dL (70-99) H Test 08/05/21 19:11 Glucose (Fingerstick) 142 mg/dL (70-99) H Current Medications: Meds: Laboratory Tests Test 08/05/21 06:00 08/05/21 07:30 08/05/21 11:36 08/05/21 16:22 Coronavirus (COVID-19)(PCR) Not detected Glucose (Fingerstick) 87 mg/dL 101 mg/dL 106 mg/dL Test 08/05/21 19:11 Glucose (Fingerstick) 142 mg/dL Current Medications Medications (Trade) Dose Ordered Sig/Richard Route PRN Reason Start Time Stop Time Status Last Admin Dose Admin Influenza Virus Vaccine Quadrival (Flulaval Quad 0123-1288 Syringe) 0.5 ml ONCE ONCE VAX IM 07/17/21 09:00 07/17/21 09:01 DC 07/17/21 10:00 Acetaminophen (Tylenol) 650 mg PRN Q6HRS PRN PO PAIN/FEVER 07/16/21 22:45 UNV Metformin HCl (Glucophage) 1,000 mg BIDWMEALS PO 07/17/21 08:00 08/05/21 17:25 Nystatin (Mycostatin) 1 sulma PRN BID PRN TP RASH 07/16/21 22:45 Quetiapine Fumarate (SEROquel) 50 mg BID PO 07/17/21 09:00 07/18/21 10:56 DC 07/18/21 08:21 Trazodone HCl (Desyrel) 50 mg QHS PO 07/17/21 21:00 08/05/21 19:48 Non-Formulary Medication (Albuterol Sulfate (Albuterol Sulfate Neb Soln)) 1 vial QID PRN NEB SHORTNESS OF AIR 07/16/21 22:45 UNV Non-Formulary Medication (Insulin Aspart (Insulin Aspart Flexpen)) 100 unit PRN AFTMEALHC PRN SQ ELEVATED BLOOD SUGAR 07/16/21 22:45 UNV Acetaminophen (Tylenol) 650 mg PRN Q6HRS PRN PO MILD PAIN / TEMP > 100.3'F 07/16/21 22:45 07/29/21 02:12 Multi-Ingredient Ointment (Analgesic [place]) 1 sulma PRN QID PRN TP MUSCLE PAIN 07/16/21 22:45 Al Hydroxide/Mg Hydroxide (Mylanta Plus Xs) 15 ml PRN AFTMEALHC PRN PO DYSPEPSIA 07/16/21 22:45 Magnesium Hydroxide (Milk Of Magnesia) 2,400 mg PRN QHS PRN PO CONSTIPATION 07/16/21 22:45 Albuterol Sulfate (Ventolin) 2.5 mg PRN Q6HRS PRN NEB SHORTNESS OF BREATH 07/16/21 23:00 07/17/21 06:25 DC Insulin Human Lispro (HumaLOG) 0-5 UNITS TIDWMEALS SQ 07/17/21 08:00 08/03/21 08:58 Dextrose (Dextrose 50%-Water Syringe) 12.5 gm PRN Q15MIN PRN IV SEE COMMENTS 07/17/21 00:15 Albuterol Sulfate (Ventolin Hfa Inhaler) 1 puff PRN Q6HRS PRN INH SHORTNESS OF BREATH 07/17/21 06:30 Risperidone (RisperDAL) 0.5 mg HS PO 07/18/21 21:00 07/21/21 19:40 DC 07/20/21 20:18 Olanzapine (ZyPREXA ZYDIS) 2.5 mg PRN Q2HR PRN PO PSYCHOSIS 07/18/21 18:15 08/04/21 01:09 Divalproex Sodium (Depakote Sprinkles) 125 mg BID@0900,1700 PO 07/21/21 09:00 07/25/21 01:54 DC 07/24/21 17:08 Risperidone (RisperDAL) 1 mg HS PO 07/21/21 21:00 07/29/21 18:23 DC 07/28/21 20:11 Trazodone HCl (Desyrel) 50 mg PRN QHS PRN PO INSOMNIA 07/21/21 19:45 08/04/21 01:09 Mirtazapine (Remeron) 7.5 mg QHS PO 07/21/21 21:00 07/22/21 19:52 DC 07/21/21 20:04 Mirtazapine (Remeron) 15 mg QHS PO 07/22/21 21:00 08/05/21 19:49 Melatonin (Melatonin) 3 mg QHS PO 07/22/21 21:00 07/23/21 20:00 DC 07/22/21 20:21 Melatonin (Melatonin) 4.5 mg QHS PO 07/23/21 21:00 08/05/21 19:49 Divalproex Sodium (Depakote Sprinkles) 250 mg BID@0900,1700 PO 07/25/21 09:00 07/28/21 19:57 DC 07/28/21 17:07 Nystatin (Nystop) 1 sulma BID TP 07/27/21 21:00 08/05/21 19:49 Divalproex Sodium (Depakote Sprinkles) 375 mg BID@0900,1700 PO 07/29/21 09:00 08/05/21 17:25 Risperidone (RisperDAL) 0.25 mg QHS PO 07/29/21 21:00 08/05/21 19:48 Risperidone (RisperDAL) 1 mg QHS PO 07/29/21 21:00 08/05/21 19:48 Sertraline HCl (Zoloft) 25 mg DAILY PO 08/03/21 09:00 08/05/21 12:00 DC 08/05/21 08:32 Sertraline HCl (Zoloft) 50 mg DAILY PO 08/06/21 09:00 I have reviewed the current psychotropics carefully including drug interactions. Risk benefit ratio favors no change other than as noted in my dictated progress note. Diagnosis: Problems: (1) Impulse control disorder, unspecified (2) Anxiety disorder, unspecified (3) Dementia, vascular, with depression (4) Dementia, vascular, with delusions (5) Dementia in Alzheimer's disease with depression (6) Dementia in Alzheimer's disease with delusions (7) Dementia of the Alzheimer's type with early onset with behavioral disturba nce (8) Major neurocognitive disorder SOO BAIRES MD Aug 05, 2021 21:11
[2021-08-06 06:28] VITALS: BP 107/64
[2021-08-06] MEDS: metFORMIN 500 MG TABLET PO SCH ×2 (08:38→17:08)
[2021-08-06] MEDS: DIVALPROEX 125 MG CAP.SPRINK PO SCH ×2 (08:38→17:07)
[2021-08-06] MEDS: SERTRALINE 50 MG TABLET. PO SCH (08:38)
[2021-08-06] MEDS: INSULIN LISPRO 300 UNITS/3 ML VIAL. SQ SCH ×3 (08:38→17:00)
[2021-08-06] MEDS: NYSTATIN TOPICAL POWDER 15GM BOTTLE. TP SCH ×2 (09:00→20:21)
--- NOTE | 2021-08-06 11:46 | NUR ---
CHANA spoke with pt DPOA, Анна, to provide update. SW provided information on [facility] [employer] [facility] follow up along with pt continuance of disorganization, hallucinations, and delusions. Анна was appreciative of the feedback and understands that pt will be discussed in treatment team later this week. Анна plans to reach out to a couple of different facilities as she would prefer pt going to a more permanent placement following discharge as to avoid too many moves in the future. Анна reported that she has briefly spoke with Vanita at [facility] for possible admission there. CHANA explained to Анна that should alternative placement not be secured when pt is ready for discharge, pt will most likely need to return to [facility]. Анна completely agreed and stated that the plan with [facility] that had been arranged prior to pt coming to [facility] was for pt to return to [facility] following discharge from [facility] provided alternative placement could not be found. CHANA plans to follow up again with Анна following treatment team meeting later this week.
--- NOTE | 2021-08-06 14:15 | NUR ---
Nursing note: Patient was in the dinning room for morning medications & assessment. She is compliant with medications taken whole. She is A/O to self only. She yells out unprovoked, demanding, as well as sarcastic. Patient propels self in w/c or uses walker, however she doesn't always participate requiring a 2:1 transfer assist. She is confused, hyperverbal, resistive to cares, disorganized, & delusional. She has been propelling self through the [place], refused to go to day room to participate in group. She is currently sitting in w/c in [place]. Will continue to monitor.
[2021-08-06 15:56] VITALS: BP 88/58
[2021-08-06] MEDS: ASCORBIC ACID 500 MG TABLET PO SCH (17:08)
[2021-08-06] MEDS: FERROUS SULFATE 325 MG TABLET. PO SCH (17:08)
[2021-08-06 20:00] VITALS: BP 136/77
[2021-08-06] MEDS: risperiDONE 1 MG TABLET. PO SCH (20:08)
[2021-08-06] MEDS: traZODone 50 MG TABLET. PO SCH (20:08)
[2021-08-06] MEDS: risperiDONE 0.25 MG TABLET. PO SCH (20:08)
[2021-08-06] MEDS: MIRTAZAPINE 15 MG TABLET PO SCH (20:09)
[2021-08-06] MEDS: MELATONIN 3 MG TABLET PO SCH (20:09)
--- NOTE | 2021-08-06 20:35 | PDOC ---
Exam Note: Troy Note: Please also refer to the separate dictated note~for this date of service dictated separately.~Patient seen individually. Discussed the patient with Nursing staff reviewed the chart.~Reviewed interim history and current functioning. Reviewed vital signs,~Labs/ Radiology~and current medications noted below. Continue current treatment with the changes noted in the dictated addendum note Assessment: Vital Signs/I&O: Vital Signs Date Time Temp Pulse Resp B/P (MAP) Pulse Ox O2 Delivery O2 Flow Rate FiO2 08/06/21 20:00 87 136/77 (96) 94 08/06/21 15:56 98.1 18 08/03/21 15:32 Room Air I & O 0 08/05/21 08/05/21 08/06/21 15:00 23:00 07:00 Intake Total 600 ml 420 ml Balance 600 ml 420 ml Labs: Laboratory Tests Test 08/06/21 07:13 08/06/21 11:43 08/06/21 16:37 08/06/21 19:12 Glucose (Fingerstick) 80 mg/dL (70-99) 109 mg/dL (70-99) H 149 mg/dL (70-99) H 129 mg/dL (70-99) H Current Medications: Meds: Current Medications Medications (Trade) Dose Ordered Sig/Richard Route PRN Reason Start Time Stop Time Status Last Admin Dose Admin Sertraline HCl (Zoloft) 50 mg DAILY PO 08/06/21 09:00 08/06/21 08:38 Ascorbic Acid (Vitamin C) 500 mg BIDWMEALS PO 08/06/21 17:00 08/06/21 17:08 Ferrous Sulfate (Feosol) 325 mg BIDWMEALS PO 08/06/21 17:00 08/06/21 17:08 I have reviewed the current psychotropics carefully including drug interactions. Risk benefit ratio favors no change other than as noted in my dictated progress note. Diagnosis: Problems: (1) Impulse control disorder, unspecified (2) Anxiety disorder, unspecified (3) Dementia, vascular, with depression (4) Dementia, vascular, with delusions (5) Dementia in Alzheimer's disease with depression (6) Dementia in Alzheimer's disease with delusions (7) Dementia of the Alzheimer's type with early onset with behavioral disturbance (8) Major neurocognitive disorder SOO BAIRES MD Aug 06, 2021 20:35
--- NOTE | 2021-08-06 23:15 | NUR ---
Patient is sitting in her room in her wheelchair. She is talking to herself and to her reflection in the window. Patient states it is 1919 and she does not know where she is. She is talking about "the kids and the candy bar and them skipping school", the conversation is nonsensical. Patient cooperative with HS cares and medication.
[2021-08-07 05:46] VITALS: BP 131/73
--- NOTE | 2021-08-07 06:23 | PDOC ---
Exam Note: Troy Note: This note is a late entry for 08/05/2021 covers elements not covered in my initial note. Subjective: The patient was seen individually in the evening of 08/05/2021 with Iris TANG, discussed and reviewed the chart. The patient slept 6-3/4 hours previous night. She remains hyperverbal, confused, yelling at times but less so than before. I met with her in her room. She remains confused, somewhat paranoid, disorganized in his speech. Review of Systems: Ambulation impaired in wheelchair. No CV, , pulmonary, eye, ENT system symptoms on review. Mental Status Exam: The patient is oriented to herself. Insight and judgment, recent and remote memory, attention and concentration, fund of knowledge is poor consistent with her diagnosis. Laboratory Data: Reviewed. Impression: Major neurocognitive disorder Alzheimer, vascular, with delusions, depression, behavioral disturbance. Anxiety disorder unspecified. Impulse control disorder unspecified. Plan: Continue current psychotropics. Assessment: Vital Signs/I&O: Vital Signs Date Time Temp Pulse Resp B/P (MAP) Pulse Ox O2 Delivery O2 Flow Rate FiO2 08/07/21 05:46 97.1 89 20 131/73 (92) 91 08/03/21 15:32 Room Air I & O 08/06/21 08/06/21 08/07/21 15:00 23:00 07:00 Intake Total 600 ml 120 ml Balance 600 ml 120 ml Labs: Laboratory Tests Test 08/06/21 07:13 08/06/21 11:43 08/06/21 16:37 08/06/21 19:12 Glucose (Fingerstick) 80 mg/dL (70-99) 109 mg/dL (70-99) H 149 mg/dL (70-99) H 129 mg/dL (70-99) H Current Medications: Meds: Laboratory Tests Test 08/06/21 07:13 08/06/21 11:43 08/06/21 16:37 08/06/21 19:12 Glucose (Fingerstick) 80 mg/dL 109 mg/dL 149 mg/dL 129 mg/dL Current Medications Medications (Trade) Dose Ordered Sig/Richard Route PRN Reason Start Time Stop Time Status Last Admin Dose Admin Influenza Virus Vaccine Quadrival (Flulaval Quad Syringe) 0.5 ml ONCE ONCE VAX IM 07/17/21 09:00 07/17/21 09:01 DC 07/17/21 10:00 Acetaminophen (Tylenol) 650 mg PRN Q6HRS PRN PO PAIN/FEVER 07/16/21 22:45 UNV Metformin HCl (Glucophage) 1,000 mg BIDWMEALS PO 07/17/21 08:00 08/06/21 17:08 Nystatin (Mycostatin) 1 sulma PRN BID PRN TP RASH 07/16/21 22:45 Quetiapine Fumarate (SEROquel) 50 mg BID PO 07/17/21 09:00 07/18/21 10:56 DC 07/18/21 08:21 Trazodone HCl (Desyrel) 50 mg QHS PO 07/17/21 21:00 08/06/21 20:08 Non-Formulary Medication (Albuterol Sulfate (Albuterol Sulfate Neb Soln)) 1 vial QID PRN NEB SHORTNESS OF AIR 07/16/21 22:45 UNV Non-Formulary Medication (Insulin Aspart (Insulin Aspart Flexpen)) 100 unit PRN AFTMEALHC PRN SQ ELEVATED BLOOD SUGAR 07/16/21 22:45 UNV Acetaminophen (Tylenol) 650 mg PRN Q6HRS PRN PO MILD PAIN / TEMP > 100.3'F 07/16/21 22:45 07/29/21 02:12 Multi-Ingredient Ointment (Analgesic [place]) 1 sulma PRN QID PRN TP MUSCLE PAIN 07/16/21 22:45 Al Hydroxide/Mg Hydroxide (Mylanta Plus Xs) 15 ml PRN AFTMEALHC PRN PO DYSPEPSIA 07/16/21 22:45 Magnesium Hydroxide (Milk Of Magnesia) 2,400 mg PRN QHS PRN PO CONSTIPATION 07/16/21 22:45 Albuterol Sulfate (Ventolin) 2.5 mg PRN Q6HRS PRN NEB SHORTNESS OF BREATH 07/16/21 23:00 07/17/21 06:25 DC Insulin Human Lispro (HumaLOG) 0-5 UNITS TIDWMEALS SQ 07/17/21 08:00 08/03/21 08:58 Dextrose (Dextrose 50%-Water Syringe) 12.5 gm PRN Q15MIN PRN IV SEE COMMENTS 07/17/21 00:15 Albuterol Sulfate (Ventolin Hfa Inhaler) 1 puff PRN Q6HRS PRN INH SHORTNESS OF BREATH 07/17/21 06:30 Risperidone (RisperDAL) 0.5 mg HS PO 07/18/21 21:00 07/21/21 19:40 DC 07/20/21 20:18 Olanzapine (ZyPREXA ZYDIS) 2.5 mg PRN Q2HR PRN PO PSYCHOSIS 07/18/21 18:15 08/04/21 01:09 Divalproex Sodium (Depakote Sprinkles) 125 mg BID@0900,1700 PO 07/21/21 09:00 07/25/21 01:54 DC 07/24/21 17:08 Risperidone (RisperDAL) 1 mg HS PO 07/21/21 21:00 07/29/21 18:23 DC 07/28/21 20:11 Trazodone HCl (Desyrel) 50 mg PRN QHS PRN PO INSOMNIA 07/21/21 19:45 08/04/21 01:09 Mirtazapine (Remeron) 7.5 mg QHS PO 07/21/21 21:00 07/22/21 19:52 DC 07/21/21 20:04 Mirtazapine (Remeron) 15 mg QHS PO 07/22/21 21:00 08/06/21 20:09 Melatonin (Melatonin) 3 mg QHS PO 07/22/21 21:00 07/23/21 20:00 DC 07/22/21 20:21 Melatonin (Melatonin) 4.5 mg QHS PO 07/23/21 21:00 08/06/21 20:09 Divalproex Sodium (Depakote Sprinkles) 250 mg BID@0900,1700 PO 07/25/21 09:00 07/28/21 19:57 DC 07/28/21 17:07 Nystatin (Nystop) 1 sulma BID TP 07/27/21 21:00 08/06/21 20:21 Divalproex Sodium (Depakote Sprinkles) 375 mg BID@0900,1700 PO 07/29/21 09:00 08/06/21 17:07 Risperidone (RisperDAL) 0.25 mg QHS PO 07/29/21 21:00 08/06/21 20:08 Risperidone (RisperDAL) 1 mg QHS PO 07/29/21 21:00 08/06/21 20:08 Sertraline HCl (Zoloft) 25 mg DAILY PO 08/03/21 09:00 08/05/21 12:00 DC 08/05/21 08:32 Sertraline HCl (Zoloft) 50 mg DAILY PO 08/06/21 09:00 08/06/21 08:38 Ascorbic Acid (Vitamin C) 500 mg BIDWMEALS PO 08/06/21 17:00 08/06/21 17:08 Ferrous Sulfate (Feosol) 325 mg BIDWMEALS PO 08/06/21 17:00 08/06/21 17:08 Current Medications Medications (Trade) Dose Ordered Sig/Richard Route PRN Reason Start Time Stop Time Status Last Admin Dose Admin Sertraline HCl (Zoloft) 50 mg DAILY PO 08/06/21 09:00 08/06/21 08:38 Ascorbic Acid (Vitamin C) 500 mg BIDWMEALS PO 08/06/21 17:00 08/06/21 17:08 Ferrous Sulfate (Feosol) 325 mg BIDWMEALS PO 08/06/21 17:00 08/06/21 17:08 I have reviewed the current psychotropics carefully including drug interactions. Risk benefit ratio favors no change other than as noted in my dictated progress note. Diagnosis: Problems: (1) Impulse control disorder, unspecified (2) Anxiety disorder, unspecified (3) Dementia, vascular, with depression (4) Dementia, vascular, with delusions (5) Dementia in Alzheimer's disease with depression (6) Dementia in Alzheimer's disease with delusions (7) Dementia of the Alzheimer's type with early onset with behavioral disturbance (8) Major neurocognitive disorder SOO BAIRES MD Aug 07, 2021 06:23
--- NOTE | 2021-08-07 06:36 | PDOC ---
Exam Note: Troy Note: This note is a late entry for 08/06/2021 covers elements not covered in my initial note. Subjective: The patient was seen individually in the evening of 08/06/2021 with Iris TANG, discussed and reviewed the chart. The patient slept 6-1/2 hours previous night. I met with the patient at some length in her room. She was seated in a wheelchair facing towards the window, oblivious of what was outside. She is resistive to her meds at times. Review of Systems: Ambulation impaired in wheelchair. No CV, , pulmonary, eye, ENT system symptoms on review. Mental Status Exam: The patient is oriented to herself. Insight and judgment, recent and remote memory, attention and concentration, fund of knowledge is poor consistent with her diagnosis. Laboratory Data: Reviewed. Impression: Major neurocognitive disorder Alzheimer, vascular, with delusions, depression, behavioral disturbance. Anxiety disorder unspecified. Impulse control disorder unspecified. Plan: Continue current psychotropics. Assessment: Vital Signs/I&O: Vital Signs Date Time Temp Pulse Resp B/P (MAP) Pulse Ox O2 Delivery O2 Flow Rate FiO2 08/07/21 05:46 97.1 89 20 131/73 (92) 91 08/03/21 15:32 Room Air I & O 08/06/21 08/06/21 08/07/21 14:59 22:59 06:59 Intake Total 600 ml 120 ml Balance 600 ml 120 ml Labs: Laboratory Tests Test 08/06/21 07:13 08/06/21 11:43 08/06/21 16:37 08/06/21 19:12 Glucose (Fingerstick) 80 mg/dL (70-99) 109 mg/dL (70-99) H 149 mg/dL (70-99) H 129 mg/dL (70-99) H Current Medications: Meds: Laboratory Tests Test 08/06/21 07:13 08/06/21 11:43 08/06/21 16:37 08/06/21 19:12 Glucose (Fingerstick) 80 mg/dL 109 mg/dL 149 mg/dL 129 mg/dL Current Medications Medications (Trade) Dose Ordered Sig/Richard Route PRN Reason Start Time Stop Time Status Last Admin Dose Admin Influenza Virus Vaccine Quadrival (Flulaval Quad Syringe) 0.5 ml ONCE ONCE VAX IM 07/17/21 09:00 07/17/21 09:01 DC 07/17/21 10:00 Acetaminophen (Tylenol) 650 mg PRN Q6HRS PRN PO PAIN/FEVER 07/16/21 22:45 UNV Metformin HCl (Glucophage) 1,000 mg BIDWMEALS PO 07/17/21 08:00 08/06/21 17:08 Nystatin (Mycostatin) 1 sulma PRN BID PRN TP RASH 07/16/21 22:45 Quetiapine Fumarate (SEROquel) 50 mg BID PO 07/17/21 09:00 07/18/21 10:56 DC 07/18/21 08:21 Trazodone HCl (Desyrel) 50 mg QHS PO 07/17/21 21:00 08/06/21 20:08 Non-Formulary Medication (Albuterol Sulfate (Albuterol Sulfate Neb Soln)) 1 vial QID PRN NEB SHORTNESS OF AIR 07/16/21 22:45 UNV Non-Formulary Medication (Insulin Aspart (Insulin Aspart Flexpen)) 100 unit PRN AFTMEALHC PRN SQ ELEVATED BLOOD SUGAR 07/16/21 22:45 UNV Acetaminophen (Tylenol) 650 mg PRN Q6HRS PRN PO MILD PAIN / TEMP > 100.3'F 07/16/21 22:45 07/29/21 02:12 Multi-Ingredient Ointment (Analgesic [place]) 1 sulma PRN QID PRN TP MUSCLE PAIN 07/16/21 22:45 Al Hydroxide/Mg Hydroxide (Mylanta Plus Xs) 15 ml PRN AFTMEALHC PRN PO DYSPEPSIA 07/16/21 22:45 Magnesium Hydroxide (Milk Of Magnesia) 2,400 mg PRN QHS PRN PO CONSTIPATION 07/16/21 22:45 Albuterol Sulfate (Ventolin) 2.5 mg PRN Q6HRS PRN NEB SHORTNESS OF BREATH 07/16/21 23:00 07/17/21 06:25 DC Insulin Human Lispro (HumaLOG) 0-5 UNITS TIDWMEALS SQ 07/17/21 08:00 08/03/21 08:58 Dextrose (Dextrose 50%-Water Syringe) 12.5 gm PRN Q15MIN PRN IV SEE COMMENTS 07/17/21 00:15 Albuterol Sulfate (Ventolin Hfa Inhaler) 1 puff PRN Q6HRS PRN INH SHORTNESS OF BREATH 07/17/21 06:30 Risperidone (RisperDAL) 0.5 mg HS PO 07/18/21 21:00 07/21/21 19:40 DC 07/20/21 20:18 Olanzapine (ZyPREXA ZYDIS) 2.5 mg PRN Q2HR PRN PO PSYCHOSIS 07/18/21 18:15 08/04/21 01:09 Divalproex Sodium (Depakote Sprinkles) 125 mg BID@0900,1700 PO 07/21/21 09:00 07/25/21 01:54 DC 07/24/21 17:08 Risperidone (RisperDAL) 1 mg HS PO 07/21/21 21:00 07/29/21 18:23 DC 07/28/21 20:11 Trazodone HCl (Desyrel) 50 mg PRN QHS PRN PO INSOMNIA 07/21/21 19:45 08/04/21 01:09 Mirtazapine (Remeron) 7.5 mg QHS PO 07/21/21 21:00 07/22/21 19:52 DC 07/21/21 20:04 Mirtazapine (Remeron) 15 mg QHS PO 07/22/21 21:00 08/06/21 20:09 Melatonin (Melatonin) 3 mg QHS PO 07/22/21 21:00 07/23/21 20:00 DC 07/22/21 20:21 Melatonin (Melatonin) 4.5 mg QHS PO 07/23/21 21:00 08/06/21 20:09 Divalproex Sodium (Depakote Sprinkles) 250 mg BID@0900,1700 PO 07/25/21 09:00 07/28/21 19:57 DC 07/28/21 17:07 Nystatin (Nystop) 1 sulma BID TP 07/27/21 21:00 08/06/21 20:21 Divalproex Sodium (Depakote Sprinkles) 375 mg BID@0900,1700 PO 07/29/21 09:00 08/06/21 17:07 Risperidone (RisperDAL) 0.25 mg QHS PO 07/29/21 21:00 08/06/21 20:08 Risperidone (RisperDAL) 1 mg QHS PO 07/29/21 21:00 08/06/21 20:08 Sertraline HCl (Zoloft) 25 mg DAILY PO 08/03/21 09:00 08/05/21 12:00 DC 08/05/21 08:32 Sertraline HCl (Zoloft) 50 mg DAILY PO 08/06/21 09:00 08/06/21 08:38 Ascorbic Acid (Vitamin C) 500 mg BIDWMEALS PO 08/06/21 17:00 08/06/21 17:08 Ferrous Sulfate (Feosol) 325 mg BIDWMEALS PO 08/06/21 17:00 08/06/21 17:08 Current Medications Medications (Trade) Dose Ordered Sig/Richard Route PRN Reason Start Time Stop Time Status Last Admin Dose Admin Sertraline HCl (Zoloft) 50 mg DAILY PO 08/06/21 09:00 08/06/21 08:38 Ascorbic Acid (Vitamin C) 500 mg BIDWMEALS PO 08/06/21 17:00 08/06/21 17:08 Ferrous Sulfate (Feosol) 325 mg BIDWMEALS PO 08/06/21 17:00 08/06/21 17:08 I have reviewed the current psychotropics carefully including drug interactions. Risk benefit ratio favors no change other than as noted in my dictated progress note. Diagnosis: Problems: (1) Impulse control disorder, unspecified (2) Anxiety disorder, unspecified (3) Dementia, vascular, with depression (4) Dementia, vascular, with delusions (5) Dementia in Alzheimer's disease with depression (6) Dementia in Alzheimer's disease with delusions (7) Dementia of the Alzheimer's type with early onset with behavioral disturbance (8) Major neurocognitive disorder SOO BAIRES MD Aug 07, 2021 06:36
[2021-08-07] MEDS: INSULIN LISPRO 300 UNITS/3 ML VIAL. SQ SCH ×3 (08:00→17:00)
[2021-08-07] MEDS: NYSTATIN TOPICAL POWDER 15GM BOTTLE. TP SCH ×2 (08:26→20:26)
[2021-08-07] MEDS: metFORMIN 500 MG TABLET PO SCH ×2 (08:27→17:04)
[2021-08-07] MEDS: DIVALPROEX 125 MG CAP.SPRINK PO SCH ×2 (08:27→17:03)
[2021-08-07] MEDS: FERROUS SULFATE 325 MG TABLET. PO SCH ×2 (08:28→17:05)
[2021-08-07] MEDS: SERTRALINE 50 MG TABLET. PO SCH (08:28)
[2021-08-07] MEDS: ASCORBIC ACID 500 MG TABLET PO SCH ×2 (08:28→17:03)
--- NOTE | 2021-08-07 14:26 | NUR ---
RN Day Shift Note: Pt presents with neutral mood/affect. Pt has been low benjamin on the unit today. Pt is engageable when approached by staff. Pt has been medication compliant. Pt's BS levels have been WNL. Pt is noted to spend her time in the day room with peers and staff. Pt's vitals vitals are WNL. Pt slept 7.75 hours last night. Pt ate 50% for breakfast and 75% for lunch of her meals. Will continue to monitor.
[2021-08-07 15:43] VITALS: BP 146/77
[2021-08-07] MEDS: traZODone 50 MG TABLET. PO SCH (20:22)
[2021-08-07] MEDS: MIRTAZAPINE 15 MG TABLET PO SCH (20:22)
[2021-08-07] MEDS: risperiDONE 1 MG TABLET. PO SCH (20:22)
[2021-08-07] MEDS: risperiDONE 0.25 MG TABLET. PO SCH (20:22)
[2021-08-07] MEDS: MELATONIN 3 MG TABLET PO SCH (20:23)
--- NOTE | 2021-08-07 20:49 | PDOC ---
Exam Note: Troy Note: Please also refer to the separate dictated note~for this date of service dictated separately.~Patient seen individually. Discussed the patient with Nursing staff reviewed the chart.~Reviewed interim history and current functioning. Reviewed vital signs,~Labs/ Radiology~and current medications noted below. Continue current treatment with the changes noted in the dictated addendum note Assessment: Vital Signs/I&O: Vital Signs Date Time Temp Pulse Resp B/P (MAP) Pulse Ox O2 Delivery O2 Flow Rate FiO2 08/07/21 15:43 98.4 83 20 146/77 (100) 95 Room Air I & O 08/06/21 08/06/21 08/07/21 15:00 23:00 07:00 Intake Total 600 ml 120 ml Balance 600 ml 120 ml Labs: Laboratory Tests Test 08/07/21 07:49 08/07/21 11:42 08/07/21 16:36 08/07/21 19:06 Glucose (Fingerstick) 96 mg/dL (70-99) 98 mg/dL (70-99) 114 mg/dL (70-99) H 153 mg/dL (70-99) H Current Medications: Meds: Laboratory Tests Test 08/07/21 07:49 08/07/21 11:42 08/07/21 16:36 08/07/21 19:06 Glucose (Fingerstick) 96 mg/dL 98 mg/dL 114 mg/dL 153 mg/dL Current Medications Medications (Trade) Dose Ordered Sig/Richard Route PRN Reason Start Time Stop Time Status Last Admin Dose Admin Influenza Virus Vaccine Quadrival (Flulaval Quad [id number] Syringe) 0.5 ml ONCE ONCE VAX IM 07/17/21 09:00 07/17/21 09:01 DC 07/17/21 10:00 Acetaminophen (Tylenol) 650 mg PRN Q6HRS PRN PO PAIN/FEVER 07/16/21 22:45 UNV Metformin HCl (Glucophage) 1,000 mg BIDWMEALS PO 07/17/21 08:00 08/07/21 17:04 Nystatin (Mycostatin) 1 sulma PRN BID PRN TP RASH 07/16/21 22:45 Quetiapine Fumarate (SEROquel) 50 mg BID PO 07/17/21 09:00 07/18/21 10:56 DC 07/18/21 08:21 Trazodone HCl (Desyrel) 50 mg QHS PO 07/17/21 21:00 08/07/21 20:22 Non-Formulary Medication (Albuterol Sulfate (Albuterol Sulfate Neb Soln)) 1 vial QID PRN NEB SHORTNESS OF AIR 07/16/21 22:45 UNV Non-Formulary Medication (Insulin Aspart (Insulin Aspart Flexpen)) 100 unit PRN AFTMEALHC PRN SQ ELEVATED BLOOD SUGAR 07/16/21 22:45 UNV Acetaminophen (Tylenol) 650 mg PRN Q6HRS PRN PO MILD PAIN / TEMP > 100.3'F 07/16/21 22:45 07/29/21 02:12 Multi-Ingredient Ointment (Analgesic [place]) 1 sulma PRN QID PRN TP MUSCLE PAIN 07/16/21 22:45 Al Hydroxide/Mg Hydroxide (Mylanta Plus Xs) 15 ml PRN AFTMEALHC PRN PO DYSPEPSIA 07/16/21 22:45 Magnesium Hydroxide (Milk Of Magnesia) 2,400 mg PRN QHS PRN PO CONSTIPATION 07/16/21 22:45 Albuterol Sulfate (Ventolin) 2.5 mg PRN Q6HRS PRN NEB SHORTNESS OF BREATH 07/16/21 23:00 07/17/21 06:25 DC Insulin Human Lispro (HumaLOG) 0-5 UNITS TIDWMEALS SQ 07/17/21 08:00 08/03/21 08:58 Dextrose (Dextrose 50%-Water Syringe) 12.5 gm PRN Q15MIN PRN IV SEE COMMENTS 07/17/21 00:15 Albuterol Sulfate (Ventolin Hfa Inhaler) 1 puff PRN Q6HRS PRN INH SHORTNESS OF BREATH 07/17/21 06:30 Risperidone (RisperDAL) 0.5 mg HS PO 07/18/21 21:00 07/21/21 19:40 DC 07/20/21 20:18 Olanzapine (ZyPREXA ZYDIS) 2.5 mg PRN Q2HR PRN PO PSYCHOSIS 07/18/21 18:15 08/04/21 01:09 Divalproex Sodium (Depakote Sprinkles) 125 mg BID@0900,1700 PO 07/21/21 09:00 07/25/21 01:54 DC 07/24/21 17:08 Risperidone (RisperDAL) 1 mg HS PO 07/21/21 21:00 07/29/21 18:23 DC 07/28/21 20:11 Trazodone HCl (Desyrel) 50 mg PRN QHS PRN PO INSOMNIA 07/21/21 19:45 08/04/21 01:09 Mirtazapine (Remeron) 7.5 mg QHS PO 07/21/21 21:00 07/22/21 19:52 DC 07/21/21 20:04 Mirtazapine (Remeron) 15 mg QHS PO 07/22/21 21:00 08/07/21 20:22 Melatonin (Melatonin) 3 mg QHS PO 07/22/21 21:00 07/23/21 20:00 DC 07/22/21 20:21 Melatonin (Melatonin) 4.5 mg QHS PO 07/23/21 21:00 08/07/21 20:23 Divalproex Sodium (Depakote Sprinkles) 250 mg BID@0900,1700 PO 07/25/21 09:00 07/28/21 19:57 DC 07/28/21 17:07 Nystatin (Nystop) 1 sulma BID TP 07/27/21 21:00 08/07/21 20:26 Divalproex Sodium (Depakote Sprinkles) 375 mg BID@0900,1700 PO 07/29/21 09:00 08/07/21 17:03 Risperidone (RisperDAL) 0.25 mg QHS PO 07/29/21 21:00 08/07/21 20:22 Risperidone (RisperDAL) 1 mg QHS PO 07/29/21 21:00 08/07/21 20:22 Sertraline HCl (Zoloft) 25 mg DAILY PO 08/03/21 09:00 08/05/21 12:00 DC 08/05/21 08:32 Sertraline HCl (Zoloft) 50 mg DAILY PO 08/06/21 09:00 08/07/21 08:28 Ascorbic Acid (Vitamin C) 500 mg BIDWMEALS PO 08/06/21 17:00 08/07/21 17:03 Ferrous Sulfate (Feosol) 325 mg BIDWMEALS PO 08/06/21 17:00 08/07/21 17:05 I have reviewed the current psychotropics carefully including drug interactions. Risk benefit ratio favors no change other than as noted in my dictated progress note. Diagnosis: Problems: (1) Impulse control disorder, unspecified (2) Anxiety disorder, unspecified (3) Dementia, vascular, with depression (4) Dementia, vascular, with delusions (5) Dementia in Alzheimer's disease with depression (6) Dementia in Alzheimer's disease with delusions (7) Dementia of the Alzheimer's type with early onset with behavioral disturbance (8) Major neurocognitive disorder SOO BAIRES MD Aug 07, 2021 20:49
--- NOTE | 2021-08-07 22:55 | NUR ---
Nursing Note The patient was located in her room for her assessment and medication pass. The patient was alert to self only. The patient was compliant with her medication and was pleasant during interactions with this nurse. The patient was cooperative with HS cares. The patient is currently sleeping in her room.
[2021-08-08 06:11] VITALS: BP 103/48
--- NOTE | 2021-08-08 07:04 | PDOC ---
Exam Note: [place] Note: This note is a late entry for 08/07/2021 covers elements not covered in my initial note. Subjective: The patient was seen individually in the evening of 08/07/2021 with Joni TANG, discussed and reviewed the chart. The patient slept 7-3/4 hours previous night. Overall she remain confused with intermittent yelling. I met with her in her room. She was in her wheelchair. Review of Systems: Ambulation impaired in wheelchair. No CV, , pulmonary, eye, ENT system symptoms on review. Reliability poor. Mental Status Exam: The patient is oriented to herself. Insight and judgment, recent and remote memory, attention and concentration, fund of knowledge is poor consistent with her diagnosis. Laboratory Data: Reviewed. Impression: Major neurocognitive disorder Alzheimer, vascular, with delusions, depression, behavioral disturbance. Anxiety disorder unspecified. Impulse control disorder unspecified. Plan: Continue current psychotropics. Assessment: Vital Signs/I&O: Vital Signs Date Time Temp Pulse Resp B/P (MAP) Pulse Ox O2 Delivery O2 Flow Rate FiO2 08/08/21 06:11 98.2 79 22 103/48 (66) 91 08/07/21 15:43 Room Air I & O 08/07/21 08/07/21 08/08/21 15:00 23:00 07:00 Intake Total 600 ml 360 ml Balance 600 ml 360 ml Labs: Laboratory Tests Test 08/07/21 07:49 08/07/21 11:42 08/07/21 16:36 08/07/21 19:06 Glucose (Fingerstick) 96 mg/dL (70-99) 98 mg/dL (70-99) 114 mg/dL (70-99) H 153 mg/dL (70-99) H Current Medications: Meds: Laboratory Tests Test 08/07/21 07:49 08/07/21 11:42 08/07/21 16:36 08/07/21 19:06 Glucose (Fingerstick) 96 mg/dL 98 mg/dL 114 mg/dL 153 mg/dL Current Medications Medications (Trade) Dose Ordered Sig/Richard Route PRN Reason Start Time Stop Time Status Last Admin Dose Admin Influenza Virus Vaccine Quadrival (Flulaval Quad Syringe) 0.5 ml ONCE ONCE VAX IM 07/17/21 09:00 07/17/21 09:01 DC 11/10/21 10:00 Acetaminophen (Tylenol) 650 mg PRN Q6HRS PRN PO PAIN/FEVER 07/16/21 22:45 UNV Metformin HCl (Glucophage) 1,000 mg BIDWMEALS PO 07/17/21 08:00 08/07/21 17:04 Nystatin (Mycostatin) 1 sulma PRN BID PRN TP RASH 07/16/21 22:45 Quetiapine Fumarate (SEROquel) 50 mg BID PO 07/17/21 09:00 07/18/21 10:56 DC 07/18/21 08:21 Trazodone HCl (Desyrel) 50 mg QHS PO 07/17/21 21:00 08/07/21 20:22 Non-Formulary Medication (Albuterol Sulfate (Albuterol Sulfate Neb Soln)) 1 vial QID PRN NEB SHORTNESS OF AIR 07/16/21 22:45 UNV Non-Formulary Medication (Insulin Aspart (Insulin Aspart Flexpen)) 100 unit PRN AFTMEALHC PRN SQ ELEVATED BLOOD SUGAR 07/16/21 22:45 UNV Acetaminophen (Tylenol) 650 mg PRN Q6HRS PRN PO MILD PAIN / TEMP > 100.3'F 07/16/21 22:45 07/29/21 02:12 Multi-Ingredient Ointment (Analgesic [place]) 1 sulma PRN QID PRN TP MUSCLE PAIN 07/16/21 22:45 Al Hydroxide/Mg Hydroxide (Mylanta Plus Xs) 15 ml PRN AFTMEALHC PRN PO DYSPEPSIA 07/16/21 22:45 Magnesium Hydroxide (Milk Of Magnesia) 2,400 mg PRN QHS PRN PO CONSTIPATION 07/16/21 22:45 Albuterol Sulfate (Ventolin) 2.5 mg PRN Q6HRS PRN NEB SHORTNESS OF BREATH 07/16/21 23:00 07/17/21 06:25 DC Insulin Human Lispro (HumaLOG) 0-5 UNITS TIDWMEALS SQ 07/17/21 08:00 08/03/21 08:58 Dextrose (Dextrose 50%-Water Syringe) 12.5 gm PRN Q15MIN PRN IV SEE COMMENTS 07/17/21 00:15 Albuterol Sulfate (Ventolin Hfa Inhaler) 1 puff PRN Q6HRS PRN INH SHORTNESS OF BREATH 07/17/21 06:30 Risperidone (RisperDAL) 0.5 mg HS PO 07/18/21 21:00 07/21/21 19:40 DC 07/20/21 20:18 Olanzapine (ZyPREXA ZYDIS) 2.5 mg PRN Q2HR PRN PO PSYCHOSIS 07/18/21 18:15 08/04/21 01:09 Divalproex Sodium (Depakote Sprinkles) 125 mg BID@0900,1700 PO 07/21/21 09:00 07/25/21 01:54 DC 07/24/21 17:08 Risperidone (RisperDAL) 1 mg HS PO 07/21/21 21:00 07/29/21 18:23 DC 07/28/21 20:11 Trazodone HCl (Desyrel) 50 mg PRN QHS PRN PO INSOMNIA 07/21/21 19:45 08/04/21 01:09 Mirtazapine (Remeron) 7.5 mg QHS PO 07/21/21 21:00 07/22/21 19:52 DC 07/21/21 20:04 Mirtazapine (Remeron) 15 mg QHS PO 07/22/21 21:00 08/07/21 20:22 Melatonin (Melatonin) 3 mg QHS PO 07/22/21 21:00 07/23/21 20:00 DC 07/22/21 20:21 Melatonin (Melatonin) 4.5 mg QHS PO 07/23/21 21:00 08/07/21 20:23 Divalproex Sodium (Depakote Sprinkles) 250 mg BID@0900,1700 PO 07/25/21 09:00 07/28/21 19:57 DC 07/28/21 17:07 Nystatin (Nystop) 1 sulma BID TP 07/27/21 21:00 08/07/21 20:26 Divalproex Sodium (Depakote Sprinkles) 375 mg BID@0900,1700 PO 07/29/21 09:00 08/07/21 17:03 Risperidone (RisperDAL) 0.25 mg QHS PO 07/29/21 21:00 08/07/21 20:22 Risperidone (RisperDAL) 1 mg QHS PO 07/29/21 21:00 08/07/21 20:22 Sertraline HCl (Zoloft) 25 mg DAILY PO 08/03/21 09:00 08/05/21 12:00 DC 08/05/21 08:32 Sertraline HCl (Zoloft) 50 mg DAILY PO 08/06/21 09:00 08/07/21 08:28 Ascorbic Acid (Vitamin C) 500 mg BIDWMEALS PO 08/06/21 17:00 08/07/21 17:03 Ferrous Sulfate (Feosol) 325 mg BIDWMEALS PO 08/06/21 17:00 08/07/21 17:05 I have reviewed the current psychotropics carefully including drug interactions. Risk benefit ratio favors no change other than as noted in my dictated progress note. 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
[2021-08-08] MEDS: INSULIN LISPRO 300 UNITS/3 ML VIAL. SQ SCH ×3 (07:42→16:56)
[2021-08-08] MEDS: metFORMIN 500 MG TABLET PO SCH ×2 (08:59→16:56)
[2021-08-08] MEDS: FERROUS SULFATE 325 MG TABLET. PO SCH ×2 (08:59→16:56)
[2021-08-08] MEDS: SERTRALINE 50 MG TABLET. PO SCH (08:59)
[2021-08-08] MEDS: DIVALPROEX 125 MG CAP.SPRINK PO SCH ×2 (08:59→16:56)
[2021-08-08] MEDS: ASCORBIC ACID 500 MG TABLET PO SCH ×2 (08:59→16:55)
[2021-08-08] MEDS: NYSTATIN TOPICAL POWDER 15GM BOTTLE. TP SCH ×2 (09:00→20:41)
--- NOTE | 2021-08-08 09:59 | NUR ---
WEEKLY ACTIVITY THERAPY NOTE Date of Admission:07/16/21 Date of AT Assessment: 07/18 Precipitating behaviors that initiated intake and admission: Pt hallucinating, irritable calling out angry, confused, Delusions, combative, verbal aggression Goal aimed: increase socialization and engagement Initial Goal: Pt will participate in at least three activity therapy sessions per week Weekly progress towards goal: did not achieve, 1/3 Group participation level: 1 min Weekly highlights: contributed to group discussion Thursday Behaviors observed: decline group invites, wandering in the hallway, needs to be redirected with storytelling and requires direct prompting but remained pleasant Plan: change goal to:Pt will participate in at least three activity therapy sessions before discharge Beneficial adaptations:direct prompting
--- NOTE | 2021-08-08 10:38 | NUR ---
Pt has been present and visible on the unit, appropriate in her interactions with others. 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 She denied pain when asked. She is compliant with morning medications. During transfer from bed to w/c she verbalized multiple times that she does not want to use a w/c and displayed possible lack of understanding of her physical defects. Education provided regarding w/c use and she became receptive. Plan of care continues, will pas to next shift.
--- NOTE | 2021-08-08 11:58 | TX PLAN ---
Interdisciplinary Tx Plan Admission Information Jul 16, 2021 at 20:03 Legal Status (on Admission): Voluntary DPOA/Guardian Name: Lucille Bergman Contact Other Contact Name: Jayna Sheikh Contact Verified Code Status: Full Code Allergies: Coded Allergies: No Known Drug Allergies (Unverified , 07/16/21) Diagnoses Primary Diagnosis: (1) Impulse control disorder, unspecified (2) Anxiety disorder, unspecified (3) Dementia, vascular, with depression (4) Dementia, vascular, with delusions (5) Dementia in Alzheimer's disease with depression (6) Dementia in Alzheimer's disease with delusions (7) Dementia of the Alzheimer's type with early onset with behavioral disturbance (8) Major neurocognitive disorder Reasons for Admission: Aggressive, Delusions, Agitated, Sig. Change Sleep, Hallucinations, Combative Problem in Patient's Words: Per pt lucille fishman/DPАнна MORALES who was raised mostly by pt, pt has had a noticable decline over the past year and particularlly over the past couple of months. Up until a year ago, pt was living in her independant living apartment and out of the [place], she moved to [place], [place] and bought a house that she paid winn for. She was then found to be living in very poor conditions without running water and no utilities and overall unable to care for herself. She had a few past hospitalizations but then release to herself and then would be found again living in unsafe conditions. At one point, pt drove herself to Анна's home, but refused to come in to stay, and would only stay in her car. Анна was finally successful at gaining DPOA during one of pt's hospitalizations and also in getting her license revoked. During the past year, family and staff during the different hospitalizations discovered pt was having hallucinations and delusions that seem to continue. Анна is concerned if pt is struggling with onset of dementia or if pt is truly experiencing psychosis and might clear in the future with medication management. Additional Admission Comments: Per intake record, pt refusing UA and cath, sexually inappropriate comments to staff, not sleeping for 30 hours, combative to staff, delusions,auditory hallucinations, verbally aggressive, screaming, cussing, disruptive. Problems Active Problems: Hallucinations, delusions, combative, agitation Inactive Problems: Pt seems to be sleeping better. Will continue to monitor for any changes. Pt Strengths/Limitations Ability for [place]: Poor Cognitive Functioning/Ability: Poor Communication Skills/Ability: Fair Financial Resources: Fair Insight/Judgement: Poor Intellectual Ability: Fair Physical Health: Poor Social Skills: Fair Stability in Family: Fair Stability in School/Work: Fair Verbal Skills: Fair Discharge Criteria Discharge Criteria: Adequate arrangements @DC, Verbal commit med comply, Improved behavior Other Discharge Comments: None at this time. Preliminary Discharge Plan Preliminary DC Plan: Current Living Arrange. Special Precautions Special Precautions: Agitation/Assault Fall Risk: High Other Precautions (specify): Pt has a history of falls. Initial D/C Plan Plan is for pt to return to her facility at [facility]. Identified Discharge Needs: None at this time. Currently Utilized Resources Currently Utilized Resources/P: PCP-Dr. Quang Fishman/[facility]-Анна [facility]; contact-CHANA Cruz Community Resources: None known at this time. Identified Problems/Hx/Goals Objectives/Short-Term Goals Short Term Goals: Control abnormal behavior, Dec. Aggression, Dec. Hallucination/Delus, Dec. Outbursts, Medication Stabilization, Monitor Med Effects, Prevent Deterioration, Promote Coping Skill Short Term Goals in Patient's: Assist with proper diagnosis of psychosis vs dementia. Interventions/Frequency Staff Interventions/Frequency&: Psychiatry to assess pt three times per week for medication management. Nursing to assess behaviors, monitor medications, and complete 15 minute checks daily. Social work to see pt at least two times weekly to aid in return to placement. Activities to encourage pt to participate in group activities daily. 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 Education: According to [employer], pt received a high school diploma and she had some technical college. Community Follow-up PCP Community Provider/Family Inpu: Pt lucille fishman/Анна LANG, provided pt history for the development of the treatment plan. Анна is available for further information should it be needed. Treatment Plan Explained Patient/Manager [employer] had this treatment plan explained to him/her as indicated by the signature below and has been given the opportunity to ask questions and make suggestions: Date: Patient/Manager [employer] Signature: Status Update Update Pt eating an average of 65% of her meals and sleeping an average of 7 hours. Pt has demonstrated some improvements. She will periodically carry on lucid conversations and while she still has periods of delusions and hallucinations, they seem to be less frequent. She remains disorganized and confused. Pt can often be found sleeping in her wheelchair in the hallway. With gradual prompting and cuing, she is less likely to be startled causing her to yell out. Pt has attended one group and was able to offer some feedback. She needed a few reminders to let other patients talk as she thought that the staff were just talking with her directly. Pt unaware that she was engaged in a group activity. Pt plan is to return to [facility] provided her DPOA does not find an alternative placement prior to discharge. LINDA BLACKWELL Aug 08, 2021 11:58
--- NOTE | 2021-08-08 14:44 | NUR ---
CHANA attempted to call pt Анна LANG X2. CHANA left a message indicating times that Анна could return call. CHANA has not received call back, yet, from Анна. CHANA will f/u tomorrow.
[2021-08-08 15:29] VITALS: BP 121/63
[2021-08-08] MEDS: risperiDONE 0.25 MG TABLET. PO SCH (20:35)
[2021-08-08] MEDS: traZODone 50 MG TABLET. PO SCH (20:36)
[2021-08-08] MEDS: MIRTAZAPINE 15 MG TABLET PO SCH (20:36)
[2021-08-08] MEDS: MELATONIN 3 MG TABLET PO SCH (20:36)
[2021-08-08] MEDS: risperiDONE 1 MG TABLET. PO SCH (20:36)
--- NOTE | 2021-08-08 20:46 | PDOC ---
Exam Note: [place] Note: Please also refer to the separate dictated note~for this date of service dictated separately.~Patient seen individually. Discussed the patient with Nursing staff reviewed the chart.~Reviewed interim history and current functioning. Reviewed vital signs,~Labs/ Radiology~and current medications noted below. Continue current treatment with the changes noted in the dictated addendum note Assessment: Vital Signs/I&O: Vital Signs Date Time Temp Pulse Resp B/P (MAP) Pulse Ox O2 Delivery O2 Flow Rate FiO2 08/08/21 15:29 97.6 82 18 121/63 (82) 97 Room Air I & O 08/07/21 08/07/21 08/08/21 14:59 22:59 06:59 Intake Total 600 ml 360 ml Balance 600 ml 360 ml Labs: Laboratory Tests Test 08/08/21 07:39 08/08/21 12:00 08/08/21 16:55 08/08/21 19:09 Glucose (Fingerstick) 95 mg/dL (70-99) 108 mg/dL (70-99) H 91 mg/dL (70-99) 103 mg/dL (70-99) H Current Medications: Meds: Laboratory Tests Test 08/08/21 07:39 08/08/21 12:00 08/08/21 16:55 08/08/21 19:09 Glucose (Fingerstick) 95 mg/dL 108 mg/dL 91 mg/dL 103 mg/dL Current Medications Medications (Trade) Dose Ordered Sig/Richard Route PRN Reason Start Time Stop Time Status Last Admin Dose Admin Influenza Virus Vaccine Quadrival (Flulaval Quad [id number] Syringe) 0.5 ml ONCE ONCE VAX IM 07/17/21 09:00 07/17/21 09:01 DC 07/17/21 10:00 Acetaminophen (Tylenol) 650 mg PRN Q6HRS PRN PO PAIN/FEVER 07/16/21 22:45 UNV Metformin HCl (Glucophage) 1,000 mg BIDWMEALS PO 07/17/21 08:00 08/08/21 16:56 Nystatin (Mycostatin) 1 sulma PRN BID PRN TP RASH 07/16/21 22:45 Quetiapine Fumarate (SEROquel) 50 mg BID PO 07/17/21 09:00 07/18/21 10:56 DC 07/18/21 08:21 Trazodone HCl (Desyrel) 50 mg QHS PO 07/17/21 21:00 08/08/21 20:36 Non-Formulary Medication (Albuterol Sulfate (Albuterol Sulfate Neb Soln)) 1 vial QID PRN NEB SHORTNESS OF AIR 07/16/21 22:45 UNV Non-Formulary Medication (Insulin Aspart (Insulin Aspart Flexpen)) 100 unit PRN AFTMEALHC PRN SQ ELEVATED BLOOD SUGAR 07/16/21 22:45 UNV Acetaminophen (Tylenol) 650 mg PRN Q6HRS PRN PO MILD PAIN / TEMP > 100.3'F 07/16/21 22:45 07/29/21 02:12 Multi-Ingredient Ointment (Analgesic [place]) 1 sulma PRN QID PRN TP MUSCLE PAIN 07/16/21 22:45 Al Hydroxide/Mg Hydroxide (Mylanta Plus Xs) 15 ml PRN AFTMEALHC PRN PO DYSPEPSIA 07/16/21 22:45 Magnesium Hydroxide (Milk Of Magnesia) 2,400 mg PRN QHS PRN PO CONSTIPATION 07/16/21 22:45 Albuterol Sulfate (Ventolin) 2.5 mg PRN Q6HRS PRN NEB SHORTNESS OF BREATH 07/16/21 23:00 07/17/21 06:25 DC Insulin Human Lispro (HumaLOG) 0-5 UNITS TIDWMEALS SQ 07/17/21 08:00 08/03/21 08:58 Dextrose (Dextrose 50%-Water Syringe) 12.5 gm PRN Q15MIN PRN IV SEE COMMENTS 07/17/21 00:15 Albuterol Sulfate (Ventolin Hfa Inhaler) 1 puff PRN Q6HRS PRN INH SHORTNESS OF BREATH 07/17/21 06:30 Risperidone (RisperDAL) 0.5 mg HS PO 07/18/21 21:00 07/21/21 19:40 DC 07/20/21 20:18 Olanzapine (ZyPREXA ZYDIS) 2.5 mg PRN Q2HR PRN PO PSYCHOSIS 07/18/21 18:15 08/04/21 01:09 Divalproex Sodium (Depakote Sprinkles) 125 mg BID@0900,1700 PO 07/21/21 09:00 07/25/21 01:54 DC 07/24/21 17:08 Risperidone (RisperDAL) 1 mg HS PO 07/21/21 21:00 07/29/21 18:23 DC 07/28/21 20:11 Trazodone HCl (Desyrel) 50 mg PRN QHS PRN PO INSOMNIA 07/21/21 19:45 08/04/21 01:09 Mirtazapine (Remeron) 7.5 mg QHS PO 07/21/21 21:00 07/22/21 19:52 DC 07/21/21 20:04 Mirtazapine (Remeron) 15 mg QHS PO 07/22/21 21:00 08/08/21 20:36 Melatonin (Melatonin) 3 mg QHS PO 07/22/21 21:00 07/23/21 20:00 DC 07/22/21 20:21 Melatonin (Melatonin) 4.5 mg QHS PO 07/23/21 21:00 08/08/21 20:36 Divalproex Sodium (Depakote Sprinkles) 250 mg BID@0900,1700 PO 07/25/21 09:00 07/28/21 19:57 DC 07/28/21 17:07 Nystatin (Nystop) 1 sulma BID TP 07/27/21 21:00 08/08/21 20:41 Divalproex Sodium (Depakote Sprinkles) 375 mg BID@0900,1700 PO 07/29/21 09:00 08/08/21 16:56 Risperidone (RisperDAL) 0.25 mg QHS PO 07/29/21 21:00 08/08/21 20:35 Risperidone (RisperDAL) 1 mg QHS PO 07/29/21 21:00 08/08/21 20:36 Sertraline HCl (Zoloft) 25 mg DAILY PO 08/03/21 09:00 08/05/21 12:00 DC 08/05/21 08:32 Sertraline HCl (Zoloft) 50 mg DAILY PO 08/06/21 09:00 08/08/21 08:59 Ascorbic Acid (Vitamin C) 500 mg BIDWMEALS PO 08/06/21 17:00 08/08/21 16:55 Ferrous Sulfate (Feosol) 325 mg BIDWMEALS PO 08/06/21 17:00 08/08/21 16:56 I have reviewed the current psychotropics carefully including drug interactions. Risk benefit ratio favors no change other than as noted in my dictated progress note. Diagnosis: Problems: (1) Impulse control disorder, unspecified (2) Anxiety disorder, unspecified (3) Dementia, vascular, with depression (4) Dementia, vascular, with delusions (5) Dementia in Alzheimer's disease with depression (6) Dementia in Alzheimer's disease with delusions (7) Dementia of the Alzheimer's type with early onset with behavioral disturbance (8) Major neurocognitive disorder SOO BAIRES MD Aug 08, 2021 20:46
[2021-08-09 06:26] VITALS: BP 121/64
--- NOTE | 2021-08-09 06:50 | PDOC ---
Exam Note: Troy Note: This note is a late entry for 08/08/2021 covers elements not covered in my initial note. Subjective: The patient was reviewed at treatment team meeting individually in the morning on 08/08/2021 with Katherine Moreno, Eliza Muniz, and Stephani Curry (forensic social worker), Martina, activity therapy, and Miriam RN, discussed and reviewed the chart. The patient slept 8 hours previous night. She continues to have some yelling. She attended one group in the past one week. In the evening discussed with Joni TANG. She has been yelling, less compliant with medications. I met with her in her room. Review of Systems: Gait unsteady, in wheelchair. No CV, , pulmonary, eye, ENT system symptoms on review. Reliability poor. Mental Status Exam: The patient is oriented to herself. Insight and judgment, recent and remote memory, attention and concentration, fund of knowledge is poor consistent with her diagnosis. Laboratory Data: Reviewed. Impression: Major neurocognitive disorder Alzheimer, vascular, with delusions, depression, behavioral disturbance. Anxiety disorder unspecified. Impulse control disorder unspecified. Plan: Continue current psychotropics. Assessment: Vital Signs/I&O: Vital Signs Date Time Temp Pulse Resp B/P (MAP) Pulse Ox O2 Delivery O2 Flow Rate FiO2 08/09/21 06:26 98.2 84 20 121/64 (83) 90 08/08/21 15:29 Room Air I & O 08/08/21 08/08/21 08/09/21 15:00 23:00 07:00 Intake Total 480 ml 480 ml Balance 480 ml 480 ml Labs: Laboratory Tests Test 08/08/21 07:39 08/08/21 12:00 08/08/21 16:55 08/08/21 19:09 Glucose (Fingerstick) 95 mg/dL (70-99) 108 mg/dL (70-99) H 91 mg/dL (70-99) 103 mg/dL (70-99) H Current Medications: Meds: Laboratory Tests Test 08/08/21 07:39 08/08/21 12:00 08/08/21 16:55 08/08/21 19:09 Glucose (Fingerstick) 95 mg/dL 108 mg/dL 91 mg/dL 103 mg/dL Current Medications Medications (Trade) Dose Ordered Sig/Richard Route PRN Reason Start Time Stop Time Status Last Admin Dose Admin Influenza Virus Vaccine Quadrival (Flulaval Quad Syringe) 0.5 ml ONCE ONCE VAX IM 07/17/21 09:00 07/17/21 09:01 DC 07/17/21 10:00 Acetaminophen (Tylenol) 650 mg PRN Q6HRS PRN PO PAIN/FEVER 07/16/21 22:45 UNV Metformin HCl (Glucophage) 1,000 mg BIDWMEALS PO 07/17/21 08:00 08/08/21 16:56 Nystatin (Mycostatin) 1 sulma PRN BID PRN TP RASH 07/16/21 22:45 Quetiapine Fumarate (SEROquel) 50 mg BID PO 07/17/21 09:00 07/18/21 10:56 DC 07/18/21 08:21 Trazodone HCl (Desyrel) 50 mg QHS PO 07/17/21 21:00 08/08/21 20:36 Non-Formulary Medication (Albuterol Sulfate (Albuterol Sulfate Neb Soln)) 1 vial QID PRN NEB SHORTNESS OF AIR 07/16/21 22:45 UNV Non-Formulary Medication (Insulin Aspart (Insulin Aspart Flexpen)) 100 unit PRN AFTMEALHC PRN SQ ELEVATED BLOOD SUGAR 07/16/21 22:45 UNV Acetaminophen (Tylenol) 650 mg PRN Q6HRS PRN PO MILD PAIN / TEMP > 100.3'F 07/16/21 22:45 07/29/21 02:12 Multi-Ingredient Ointment (Analgesic [place]) 1 sulma PRN QID PRN TP MUSCLE PAIN 07/16/21 22:45 Al Hydroxide/Mg Hydroxide (Mylanta Plus Xs) 15 ml PRN AFTMEALHC PRN PO DYSPEPSIA 07/16/21 22:45 Magnesium Hydroxide (Milk Of Magnesia) 2,400 mg PRN QHS PRN PO CONSTIPATION 07/16/21 22:45 Albuterol Sulfate (Ventolin) 2.5 mg PRN Q6HRS PRN NEB SHORTNESS OF BREATH 07/16/21 23:00 07/17/21 06:25 DC Insulin Human Lispro (HumaLOG) 0-5 UNITS TIDWMEALS SQ 07/17/21 08:00 08/03/21 08:58 Dextrose (Dextrose 50%-Water Syringe) 12.5 gm PRN Q15MIN PRN IV SEE COMMENTS 07/17/21 00:15 Albuterol Sulfate (Ventolin Hfa Inhaler) 1 puff PRN Q6HRS PRN INH SHORTNESS OF BREATH 07/17/21 06:30 Risperidone (RisperDAL) 0.5 mg HS PO 07/18/21 21:00 07/21/21 19:40 DC 07/20/21 20:18 Olanzapine (ZyPREXA ZYDIS) 2.5 mg PRN Q2HR PRN PO PSYCHOSIS 07/18/21 18:15 08/04/21 01:09 Divalproex Sodium (Depakote Sprinkles) 125 mg BID@0900,1700 PO 07/21/21 09:00 07/25/21 01:54 DC 07/24/21 17:08 Risperidone (RisperDAL) 1 mg HS PO 07/21/21 21:00 07/29/21 18:23 DC 07/28/21 20:11 Trazodone HCl (Desyrel) 50 mg PRN QHS PRN PO INSOMNIA 07/21/21 19:45 08/04/21 01:09 Mirtazapine (Remeron) 7.5 mg QHS PO 07/21/21 21:00 07/22/21 19:52 DC 07/21/21 20:04 Mirtazapine (Remeron) 15 mg QHS PO 07/22/21 21:00 08/08/21 20:36 Melatonin (Melatonin) 3 mg QHS PO 07/22/21 21:00 07/23/21 20:00 DC 07/22/21 20:21 Melatonin (Melatonin) 4.5 mg QHS PO 07/23/21 21:00 08/08/21 20:36 Divalproex Sodium (Depakote Sprinkles) 250 mg BID@0900,1700 PO 07/25/21 09:00 07/28/21 19:57 DC 07/28/21 17:07 Nystatin (Nystop) 1 sulma BID TP 07/27/21 21:00 08/08/21 20:41 Divalproex Sodium (Depakote Sprinkles) 375 mg BID@0900,1700 PO 07/29/21 09:00 08/08/21 16:56 Risperidone (RisperDAL) 0.25 mg QHS PO 07/29/21 21:00 08/08/21 20:35 Risperidone (RisperDAL) 1 mg QHS PO 07/29/21 21:00 08/08/21 20:36 Sertraline HCl (Zoloft) 25 mg DAILY PO 08/03/21 09:00 08/05/21 12:00 DC 08/05/21 08:32 Sertraline HCl (Zoloft) 50 mg DAILY PO 08/06/21 09:00 08/08/21 08:59 Ascorbic Acid (Vitamin C) 500 mg BIDWMEALS PO 08/06/21 17:00 08/08/21 16:55 Ferrous Sulfate (Feosol) 325 mg BIDWMEALS PO 08/06/21 17:00 08/08/21 16:56 I have reviewed the current psychotropics carefully including drug interactions. Risk benefit ratio favors no change other than as noted in my dictated progress note. Diagnosis: Problems: (1) Impulse control disorder, unspecified (2) Anxiety disorder, unspecified (3) Dementia, vascular, with depression (4) Dementia, vascular, with delusions (5) Dementia in Alzheimer's disease with depression (6) Dementia in Alzheimer's disease with delusions (7) Dementia of the Alzheimer's type with early onset with behavioral disturbance (8) Major neurocognitive disorder SOO BAIRES MD Aug 09, 2021 06:50
[2021-08-09] MEDS: INSULIN LISPRO 300 UNITS/3 ML VIAL. SQ SCH ×3 (07:41→16:33)
[2021-08-09] MEDS: ASCORBIC ACID 500 MG TABLET PO SCH ×2 (08:41→16:49)
[2021-08-09] MEDS: FERROUS SULFATE 325 MG TABLET. PO SCH ×2 (08:41→16:49)
[2021-08-09] MEDS: metFORMIN 500 MG TABLET PO SCH ×2 (08:41→16:48)
[2021-08-09] MEDS: DIVALPROEX 125 MG CAP.SPRINK PO SCH ×2 (08:41→16:48)
[2021-08-09] MEDS: SERTRALINE 50 MG TABLET. PO SCH (08:41)
[2021-08-09] MEDS: NYSTATIN TOPICAL POWDER 15GM BOTTLE. TP SCH ×2 (08:42→20:49)
--- NOTE | 2021-08-09 10:04 | NUR ---
Pt present and visible on the unit. She had brief moments of yelling out "oh my God," but for the most part has been appropriate on the unit. She is compliant with whole medications with encouragement. She is A&O to self only, confused and disorganized. She naps intermittently in her w/c and does not interact much with other patients. Her interactions with staff have been appropriate and compliant. Plan of care continues, will pass to next shift.
[2021-08-09 15:36] VITALS: BP 136/79
--- NOTE | 2021-08-09 15:50 | NUR ---
Pt yelling "oh my god" repeatedly, and when staff attempts to redirect she begins to yell "I can't stop" repeatedly. PRN Zyprexa 2.5 mg SL administered
[2021-08-09] MEDS: MELATONIN 3 MG TABLET PO SCH (20:45)
[2021-08-09] MEDS: traZODone 50 MG TABLET. PO SCH (20:46)
[2021-08-09] MEDS: risperiDONE 1 MG TABLET. PO SCH (20:46)
[2021-08-09] MEDS: MIRTAZAPINE 15 MG TABLET PO SCH (20:47)
[2021-08-09] MEDS: risperiDONE 0.5 MG TABLET. PO SCH (20:49)
--- NOTE | 2021-08-09 21:09 | PDOC ---
Exam Note: [place] Note: Please also refer to the separate dictated note~for this date of service dictated separately.~Patient seen individually. Discussed the patient with Nursing staff reviewed the chart.~Reviewed interim history and current functioning. Reviewed vital signs,~Labs/ Radiology~and current medications noted below. Continue current treatment with the changes noted in the dictated addendum note Assessment: Vital Signs/I&O: Vital Signs Date Time Temp Pulse Resp B/P (MAP) Pulse Ox O2 Delivery O2 Flow Rate FiO2 08/09/21 15:36 98.4 77 18 136/79 (98) 95 08/08/21 15:29 Room Air I & O 08/08/21 08/08/21 08/09/21 15:00 23:00 07:00 Intake Total 480 ml 480 ml Balance 480 ml 480 ml Labs: Laboratory Tests Test 08/09/21 07:37 08/09/21 11:39 08/09/21 16:27 08/09/21 19:06 Glucose (Fingerstick) 84 mg/dL (70-99) 70 mg/dL (70-99) 115 mg/dL (70-99) H 117 mg/dL (70-99) H Current Medications: Meds: Laboratory Tests Test 08/09/21 07:37 08/09/21 11:39 08/09/21 16:27 08/09/21 19:06 Glucose (Fingerstick) 84 mg/dL 70 mg/dL 115 mg/dL 117 mg/dL Current Medications Medications (Trade) Dose Ordered Sig/Richard Route PRN Reason Start Time Stop Time Status Last Admin Dose Admin Influenza Virus Vaccine Quadrival (Flulaval Quad [id number] Syringe) 0.5 ml ONCE ONCE VAX IM 07/17/21 09:00 07/17/21 09:01 DC 07/17/21 10:00 Acetaminophen (Tylenol) 650 mg PRN Q6HRS PRN PO PAIN/FEVER 07/16/21 22:45 UNV Metformin HCl (Glucophage) 1,000 mg BIDWMEALS PO 07/17/21 08:00 08/09/21 16:48 Nystatin (Mycostatin) 1 sulma PRN BID PRN TP RASH 07/16/21 22:45 Quetiapine Fumarate (SEROquel) 50 mg BID PO 07/17/21 09:00 07/18/21 10:56 DC 07/18/21 08:21 Trazodone HCl (Desyrel) 50 mg QHS PO 07/17/21 21:00 08/09/21 20:46 Non-Formulary Medication (Albuterol Sulfate (Albuterol Sulfate Neb Soln)) 1 vial QID PRN NEB SHORTNESS OF AIR 07/16/21 22:45 UNV Non-Formulary Medication (Insulin Aspart (Insulin Aspart Flexpen)) 100 unit PRN AFTMEALHC PRN SQ ELEVATED BLOOD SUGAR 07/16/21 22:45 UNV Acetaminophen (Tylenol) 650 mg PRN Q6HRS PRN PO MILD PAIN / TEMP > 100.3'F 07/16/21 22:45 07/29/21 02:12 Multi-Ingredient Ointment (Analgesic [place]) 1 sulma PRN QID PRN TP MUSCLE PAIN 07/16/21 22:45 Al Hydroxide/Mg Hydroxide (Mylanta Plus Xs) 15 ml PRN AFTMEALHC PRN PO DYSPEPSIA 07/16/21 22:45 Magnesium Hydroxide (Milk Of Magnesia) 2,400 mg PRN QHS PRN PO CONSTIPATION 07/16/21 22:45 Albuterol Sulfate (Ventolin) 2.5 mg PRN Q6HRS PRN NEB SHORTNESS OF BREATH 07/16/21 23:00 07/17/21 06:25 DC Insulin Human Lispro (HumaLOG) 0-5 UNITS TIDWMEALS SQ 07/17/21 08:00 08/03/21 08:58 Dextrose (Dextrose 50%-Water Syringe) 12.5 gm PRN Q15MIN PRN IV SEE COMMENTS 07/17/21 00:15 Albuterol Sulfate (Ventolin Hfa Inhaler) 1 puff PRN Q6HRS PRN INH SHORTNESS OF BREATH 07/17/21 06:30 Risperidone (RisperDAL) 0.5 mg HS PO 07/18/21 21:00 07/21/21 19:40 DC 07/20/21 20:18 Olanzapine (ZyPREXA ZYDIS) 2.5 mg PRN Q2HR PRN PO PSYCHOSIS 07/18/21 18:15 08/09/21 15:49 Divalproex Sodium (Depakote Sprinkles) 125 mg BID@0900,1700 PO 07/21/21 09:00 07/25/21 01:54 DC 07/24/21 17:08 Risperidone (RisperDAL) 1 mg HS PO 07/21/21 21:00 07/29/21 18:23 DC 07/28/21 20:11 Trazodone HCl (Desyrel) 50 mg PRN QHS PRN PO INSOMNIA 07/21/21 19:45 08/04/21 01:09 Mirtazapine (Remeron) 7.5 mg QHS PO 07/21/21 21:00 07/22/21 19:52 DC 07/21/21 20:04 Mirtazapine (Remeron) 15 mg QHS PO 07/22/21 21:00 08/09/21 20:47 Melatonin (Melatonin) 3 mg QHS PO 07/22/21 21:00 07/23/21 20:00 DC 07/22/21 20:21 Melatonin (Melatonin) 4.5 mg QHS PO 07/23/21 21:00 08/09/21 20:45 Divalproex Sodium (Depakote Sprinkles) 250 mg BID@0900,1700 PO 07/25/21 09:00 07/28/21 19:57 DC 07/28/21 17:07 Nystatin (Nystop) 1 sulma BID TP 07/27/21 21:00 08/09/21 20:49 Divalproex Sodium (Depakote Sprinkles) 375 mg BID@0900,1700 PO 07/29/21 09:00 08/09/21 16:48 Risperidone (RisperDAL) 0.25 mg QHS PO 07/29/21 21:00 08/09/21 19:39 DC 08/08/21 20:35 Risperidone (RisperDAL) 1 mg QHS PO 07/29/21 21:00 08/09/21 20:46 Sertraline HCl (Zoloft) 25 mg DAILY PO 08/03/21 09:00 08/05/21 12:00 DC 08/05/21 08:32 Sertraline HCl (Zoloft) 50 mg DAILY PO 08/06/21 09:00 08/09/21 08:41 Ascorbic Acid (Vitamin C) 500 mg BIDWMEALS PO 08/06/21 17:00 08/09/21 16:49 Ferrous Sulfate (Feosol) 325 mg BIDWMEALS PO 08/06/21 17:00 08/09/21 16:49 Risperidone (RisperDAL) 0.5 mg QHS PO 08/09/21 21:00 08/09/21 20:49 Current Medications Medications (Trade) Dose Ordered Sig/Richard Route PRN Reason Start Time Stop Time Status Last Admin Dose Admin Risperidone (RisperDAL) 0.5 mg QHS PO 08/09/21 21:00 08/09/21 20:49 I have reviewed the current psychotropics carefully including drug interactions. Risk benefit ratio favors no change other than as noted in my dictated progress note. Diagnosis: Problems: (1) Impulse control disorder, unspecified (2) Anxiety disorder, unspecified (3) Dementia, vascular, with depression (4) Dementia, vascular, with delusions (5) Dementia in Alzheimer's disease with depression (6) Dementia in Alzheimer's disease with delusions (7) Dementia of the Alzheimer's type with early onset with behavioral disturbance (8) Major neurocognitive disorder SOO BAIRES MD Aug 09, 2021 21:09
--- NOTE | 2021-08-10 03:24 | NUR ---
Nursing Note The patient was located in her room for her assessment and medication pass. The patient took her medication whole and was pleasant during interactions. The patient was alert to self only. The patient is currently sleeping in her room.
[2021-08-10 05:55] VITALS: BP 107/62
--- NOTE | 2021-08-10 06:53 | PDOC ---
Exam Note: [place] Note: This note is a late entry for 08/09/2021 covers elements not covered in my initial note. Subjective: The patient was seen individually in the evening of 08/09/2021 with Joni TANG, discussed and reviewed the chart. The patient slept 7-1/4 hours previous night. I met with her in her room. She has had episodic yelling and she has done better with Zyprexa p.r.n. Review of Systems: Ambulation impaired, in wheelchair. No CV, , pulmonary, eye, ENT system symptoms on review. Reliability poor. Mental Status Exam: The patient is oriented to herself. Insight and judgment, recent and remote memory, attention and concentration, fund of knowledge is poor consistent with her diagnosis. She was quite agitated, hyperverbal but more redirectable. Laboratory Data: Reviewed. Impression: Major neurocognitive disorder Alzheimer, vascular, with delusions, depression, behavioral disturbance. Anxiety disorder unspecified. Impulse control disorder unspecified. Plan: Continue current psychotropics. Assessment: Vital Signs/I&O: Vital Signs Date Time Temp Pulse Resp B/P (MAP) Pulse Ox O2 Delivery O2 Flow Rate FiO2 08/10/21 05:55 97.4 82 20 107/62 (77) 91 08/08/21 15:29 Room Air I & O 08/09/21 08/09/21 08/10/21 15:00 23:00 07:00 Intake Total 720 ml 480 ml Balance 720 ml 480 ml Labs: Laboratory Tests Test 08/09/21 07:37 08/09/21 11:39 08/09/21 16:27 08/09/21 19:06 Glucose (Fingerstick) 84 mg/dL (70-99) 70 mg/dL (70-99) 115 mg/dL (70-99) H 117 mg/dL (70-99) H Current Medications: Meds: Laboratory Tests Test 08/09/21 07:37 08/09/21 11:39 08/09/21 16:27 08/09/21 19:06 Glucose (Fingerstick) 84 mg/dL 70 mg/dL 115 mg/dL 117 mg/dL Current Medications Medications (Trade) Dose Ordered Sig/Richard Route PRN Reason Start Time Stop Time Status Last Admin Dose Admin Influenza Virus Vaccine Quadrival (Flulaval Quad Syringe) 0.5 ml ONCE ONCE VAX IM 07/17/21 09:00 07/17/21 09:01 DC 07/17/21 10:00 Acetaminophen (Tylenol) 650 mg PRN Q6HRS PRN PO PAIN/FEVER 07/16/21 22:45 UNV Metformin HCl (Glucophage) 1,000 mg BIDWMEALS PO 07/17/21 08:00 08/09/21 16:48 Nystatin (Mycostatin) 1 sulma PRN BID PRN TP RASH 07/16/21 22:45 Quetiapine Fumarate (SEROquel) 50 mg BID PO 07/17/21 09:00 07/18/21 10:56 DC 07/18/21 08:21 Trazodone HCl (Desyrel) 50 mg QHS PO 07/17/21 21:00 08/09/21 20:46 Non-Formulary Medication (Albuterol Sulfate (Albuterol Sulfate Neb Soln)) 1 vial QID PRN NEB SHORTNESS OF AIR 07/16/21 22:45 UNV Non-Formulary Medication (Insulin Aspart (Insulin Aspart Flexpen)) 100 unit PRN AFTMEALHC PRN SQ ELEVATED BLOOD SUGAR 07/16/21 22:45 UNV Acetaminophen (Tylenol) 650 mg PRN Q6HRS PRN PO MILD PAIN / TEMP > 100.3'F 07/16/21 22:45 07/29/21 02:12 Multi-Ingredient Ointment (Analgesic [place]) 1 sulma PRN QID PRN TP MUSCLE PAIN 07/16/21 22:45 Al Hydroxide/Mg Hydroxide (Mylanta Plus Xs) 15 ml PRN AFTMEALHC PRN PO DYSPEPSIA 07/16/21 22:45 Magnesium Hydroxide (Milk Of Magnesia) 2,400 mg PRN QHS PRN PO CONSTIPATION 07/16/21 22:45 Albuterol Sulfate (Ventolin) 2.5 mg PRN Q6HRS PRN NEB SHORTNESS OF BREATH 07/16/21 23:00 07/17/21 06:25 DC Insulin Human Lispro (HumaLOG) 0-5 UNITS TIDWMEALS SQ 07/17/21 08:00 08/03/21 08:58 Dextrose (Dextrose 50%-Water Syringe) 12.5 gm PRN Q15MIN PRN IV SEE COMMENTS 07/17/21 00:15 Albuterol Sulfate (Ventolin Hfa Inhaler) 1 puff PRN Q6HRS PRN INH SHORTNESS OF BREATH 07/17/21 06:30 Risperidone (RisperDAL) 0.5 mg HS PO 07/18/21 21:00 07/21/21 19:40 DC 07/20/21 20:18 Olanzapine (ZyPREXA ZYDIS) 2.5 mg PRN Q2HR PRN PO PSYCHOSIS 07/18/21 18:15 08/09/21 15:49 Divalproex Sodium (Depakote Sprinkles) 125 mg BID@0900,1700 PO 07/21/21 09:00 07/25/21 01:54 DC 07/24/21 17:08 Risperidone (RisperDAL) 1 mg HS PO 07/21/21 21:00 07/29/21 18:23 DC 07/28/21 20:11 Trazodone HCl (Desyrel) 50 mg PRN QHS PRN PO INSOMNIA 07/21/21 19:45 08/04/21 01:09 Mirtazapine (Remeron) 7.5 mg QHS PO 07/21/21 21:00 07/22/21 19:52 DC 07/21/21 20:04 Mirtazapine (Remeron) 15 mg QHS PO 07/22/21 21:00 08/09/21 20:47 Melatonin (Melatonin) 3 mg QHS PO 07/22/21 21:00 07/23/21 20:00 DC 07/22/21 20:21 Melatonin (Melatonin) 4.5 mg QHS PO 07/23/21 21:00 08/09/21 20:45 Divalproex Sodium (Depakote Sprinkles) 250 mg BID@0900,1700 PO 07/25/21 09:00 07/28/21 19:57 DC 07/28/21 17:07 Nystatin (Nystop) 1 sulma BID TP 07/27/21 21:00 08/09/21 20:49 Divalproex Sodium (Depakote Sprinkles) 375 mg BID@0900,1700 PO 07/29/21 09:00 08/09/21 16:48 Risperidone (RisperDAL) 0.25 mg QHS PO 07/29/21 21:00 08/09/21 19:39 DC 08/08/21 20:35 Risperidone (RisperDAL) 1 mg QHS PO 07/29/21 21:00 08/09/21 20:46 Sertraline HCl (Zoloft) 25 mg DAILY PO 08/03/21 09:00 08/05/21 12:00 DC 08/05/21 08:32 Sertraline HCl (Zoloft) 50 mg DAILY PO 08/06/21 09:00 08/09/21 08:41 Ascorbic Acid (Vitamin C) 500 mg BIDWMEALS PO 08/06/21 17:00 08/09/21 16:49 Ferrous Sulfate (Feosol) 325 mg BIDWMEALS PO 08/06/21 17:00 08/09/21 16:49 Risperidone (RisperDAL) 0.5 mg QHS PO 08/09/21 21:00 08/09/21 20:49 Current Medications Medications (Trade) Dose Ordered Sig/Richard Route PRN Reason Start Time Stop Time Status Last Admin Dose Admin Risperidone (RisperDAL) 0.5 mg QHS PO 08/09/21 21:00 08/09/21 20:49 I have reviewed the current psychotropics carefully including drug interactions. Risk benefit ratio favors no change other than as noted in my dictated progress note. Diagnosis: Problems: (1) Impulse control disorder, unspecified (2) Anxiety disorder, unspecified (3) Dementia, vascular, with depression (4) Dementia, vascular, with delusions (5) Dementia in Alzheimer's disease with depression (6) Dementia in Alzheimer's disease with delusions (7) Dementia of the Alzheimer's type with early onset with behavioral disturbance (8) Major neurocognitive disorder SOO BAIRES MD Aug 10, 2021 06:53
[2021-08-10] MEDS: INSULIN LISPRO 300 UNITS/3 ML VIAL. SQ SCH ×3 (07:35→16:41)
[2021-08-10] MEDS: SERTRALINE 50 MG TABLET. PO SCH (08:48)
[2021-08-10] MEDS: DIVALPROEX 125 MG CAP.SPRINK PO SCH ×2 (08:48→17:00)
[2021-08-10] MEDS: FERROUS SULFATE 325 MG TABLET. PO SCH ×2 (08:48→17:00)
[2021-08-10] MEDS: metFORMIN 500 MG TABLET PO SCH ×2 (08:48→17:00)
[2021-08-10] MEDS: ASCORBIC ACID 500 MG TABLET PO SCH ×2 (08:48→17:00)
[2021-08-10] MEDS: NYSTATIN TOPICAL POWDER 15GM BOTTLE. TP SCH ×2 (09:00→19:38)
--- NOTE | 2021-08-10 09:49 | NUR ---
Pt began the day not wanting to wear pants and pulling her arms into her shirt, reasons why is unknown. She is delusional, stating that this nurse needs to leave a note informing others that she is leaving today. She is A&O to self only, confused and disorganized. She is compliant with whole medications. She was not very compliant during showers, screaming so loudly and hysterically that she could be heard all throughout the unit despite the shower room doors being closed for privacy. At the time of this writing she is back in bed and asleep, no signs of pain or distress. Plan of care continues, will pass to next shift.
--- NOTE | 2021-08-10 14:20 | NUR ---
Pt elevating in anxiety and yelling out. PRN Zyprexa 2.5 mg PO administered
[2021-08-10 15:08] VITALS: BP 143/75
--- NOTE | 2021-08-10 18:45 | NUR ---
Pt continuously yelling "oh my God," unable to cease or be redirected. PRN Zyprexa 2.5 mg PO administered.
[2021-08-10] MEDS: risperiDONE 1 MG TABLET. PO SCH (19:37)
[2021-08-10] MEDS: risperiDONE 0.5 MG TABLET. PO SCH (19:37)
[2021-08-10] MEDS: MIRTAZAPINE 15 MG TABLET PO SCH (19:37)
[2021-08-10] MEDS: MELATONIN 3 MG TABLET PO SCH (19:37)
[2021-08-10] MEDS: traZODone 50 MG TABLET. PO SCH (19:37)
--- NOTE | 2021-08-10 21:02 | PDOC ---
Exam Note: [place] Note: Please also refer to the separate dictated note~for this date of service dictated separately.~Patient seen individually. Discussed the patient with Nursing staff reviewed the chart.~Reviewed interim history and current functioning. Reviewed vital signs,~Labs/ Radiology~and current medications noted below. Continue current treatment with the changes noted in the dictated addendum note Assessment: Vital Signs/I&O: Vital Signs Date Time Temp Pulse Resp B/P (MAP) Pulse Ox O2 Delivery O2 Flow Rate FiO2 08/10/21 15:08 98.3 79 18 143/75 (97) 94 Room Air I & O 08/09/21 08/09/21 08/10/21 15:00 23:00 07:00 Intake Total 720 ml 480 ml Balance 720 ml 480 ml Labs: Laboratory Tests Test 08/10/21 07:31 08/10/21 11:22 08/10/21 16:37 08/10/21 19:04 Glucose (Fingerstick) 90 mg/dL (70-99) 118 mg/dL (70-99) H 125 mg/dL (70-99) H 143 mg/dL (70-99) H Current Medications: Meds: Laboratory Tests Test 08/10/21 07:31 08/10/21 11:22 08/10/21 16:37 08/10/21 19:04 Glucose (Fingerstick) 90 mg/dL 118 mg/dL 125 mg/dL 143 mg/dL Current Medications Medications (Trade) Dose Ordered Sig/Richard Route PRN Reason Start Time Stop Time Status Last Admin Dose Admin Influenza Virus Vaccine Quadrival (Flulaval Quad [id number] Syringe) 0.5 ml ONCE ONCE VAX IM 07/17/21 09:00 07/17/21 09:01 DC 07/17/21 10:00 Acetaminophen (Tylenol) 650 mg PRN Q6HRS PRN PO PAIN/FEVER 07/16/21 22:45 UNV Metformin HCl (Glucophage) 1,000 mg BIDWMEALS PO 07/17/21 08:00 08/10/21 17:00 Nystatin (Mycostatin) 1 sulma PRN BID PRN TP RASH 07/16/21 22:45 Quetiapine Fumarate (SEROquel) 50 mg BID PO 07/17/21 09:00 07/18/21 10:56 DC 07/18/21 08:21 Trazodone HCl (Desyrel) 50 mg QHS PO 07/17/21 21:00 08/10/21 19:37 Non-Formulary Medication (Albuterol Sulfate (Albuterol Sulfate Neb Soln)) 1 vial QID PRN NEB SHORTNESS OF AIR 07/16/21 22:45 UNV Non-Formulary Medication (Insulin Aspart (Insulin Aspart Flexpen)) 100 unit PRN AFTMEALHC PRN SQ ELEVATED BLOOD SUGAR 07/16/21 22:45 UNV Acetaminophen (Tylenol) 650 mg PRN Q6HRS PRN PO MILD PAIN / TEMP > 100.3'F 07/16/21 22:45 07/29/21 02:12 Multi-Ingredient Ointment (Analgesic [place]) 1 sulma PRN QID PRN TP MUSCLE PAIN 07/16/21 22:45 Al Hydroxide/Mg Hydroxide (Mylanta Plus Xs) 15 ml PRN AFTMEALHC PRN PO DYSPEPSIA 07/16/21 22:45 Magnesium Hydroxide (Milk Of Magnesia) 2,400 mg PRN QHS PRN PO CONSTIPATION 07/16/21 22:45 Albuterol Sulfate (Ventolin) 2.5 mg PRN Q6HRS PRN NEB SHORTNESS OF BREATH 07/16/21 23:00 07/17/21 06:25 DC Insulin Human Lispro (HumaLOG) 0-5 UNITS TIDWMEALS SQ 07/17/21 08:00 08/03/21 08:58 Dextrose (Dextrose 50%-Water Syringe) 12.5 gm PRN Q15MIN PRN IV SEE COMMENTS 07/17/21 00:15 Albuterol Sulfate (Ventolin Hfa Inhaler) 1 puff PRN Q6HRS PRN INH SHORTNESS OF BREATH 07/17/21 06:30 Risperidone (RisperDAL) 0.5 mg HS PO 07/18/21 21:00 07/21/21 19:40 DC 07/20/21 20:18 Olanzapine (ZyPREXA ZYDIS) 2.5 mg PRN Q2HR PRN PO PSYCHOSIS 07/18/21 18:15 08/10/21 18:45 Divalproex Sodium (Depakote Sprinkles) 125 mg BID@0900,1700 PO 07/21/21 09:00 07/25/21 01:54 DC 07/24/21 17:08 Risperidone (RisperDAL) 1 mg HS PO 07/21/21 21:00 07/29/21 18:23 DC 07/28/21 20:11 Trazodone HCl (Desyrel) 50 mg PRN QHS PRN PO INSOMNIA 07/21/21 19:45 08/04/21 01:09 Mirtazapine (Remeron) 7.5 mg QHS PO 07/21/21 21:00 07/22/21 19:52 DC 07/21/21 20:04 Mirtazapine (Remeron) 15 mg QHS PO 07/22/21 21:00 08/10/21 19:37 Melatonin (Melatonin) 3 mg QHS PO 07/22/21 21:00 07/23/21 20:00 DC 07/22/21 20:21 Melatonin (Melatonin) 4.5 mg QHS PO 07/23/21 21:00 08/10/21 19:37 Divalproex Sodium (Depakote Sprinkles) 250 mg BID@0900,1700 PO 07/25/21 09:00 07/28/21 19:57 DC 07/28/21 17:07 Nystatin (Nystop) 1 sulma BID TP 07/27/21 21:00 08/10/21 19:38 Divalproex Sodium (Depakote Sprinkles) 375 mg BID@0900,1700 PO 07/29/21 09:00 08/10/21 17:00 Risperidone (RisperDAL) 0.25 mg QHS PO 07/29/21 21:00 08/09/21 19:39 DC 08/08/21 20:35 Risperidone (RisperDAL) 1 mg QHS PO 07/29/21 21:00 08/10/21 19:37 Sertraline HCl (Zoloft) 25 mg DAILY PO 08/03/21 09:00 08/05/21 12:00 DC 08/05/21 08:32 Sertraline HCl (Zoloft) 50 mg DAILY PO 08/06/21 09:00 08/10/21 20:02 DC 08/10/21 08:48 Ascorbic Acid (Vitamin C) 500 mg BIDWMEALS PO 08/06/21 17:00 08/10/21 17:00 Ferrous Sulfate (Feosol) 325 mg BIDWMEALS PO 08/06/21 17:00 08/10/21 17:00 Risperidone (RisperDAL) 0.5 mg QHS PO 08/09/21 21:00 08/10/21 19:37 Sertraline HCl (Zoloft) 75 mg DAILY PO 08/11/21 09:00 Buspirone HCl (Buspar) 5 mg BID@0900,1700 PO 08/11/21 09:00 I have reviewed the current psychotropics carefully including drug interactions. Risk benefit ratio favors no change other than as noted in my dictated progress note. Diagnosis: Problems: (1) Impulse control disorder, unspecified (2) Anxiety disorder, unspecified (3) Dementia, vascular, with depression (4) Dementia, vascular, with delusions (5) Dementia in Alzheimer's disease with depression (6) Dementia in Alzheimer's disease with delusions (7) Dementia of the Alzheimer's type with early onset with behavioral disturbance (8) Major neurocognitive disorder SOO BAIRES MD Aug 10, 2021 21:02
--- NOTE | 2021-08-10 23:56 | NUR ---
Pt highly anxious this evening; hyperverbal, yelling and rambling. Pt asking staff to tie her hands and feet together and throw her over the side of the truck. Pt then gets angry when staff says they will not do that. Pt refusing to cooperative with ADL care this evening, acting helpless. Pt was compliant with whole medications.
[2021-08-11] MEDS: traZODone 50 MG TABLET. PO PRN (01:48)
[2021-08-11 05:45] VITALS: BP 127/71
[2021-08-11] MEDS: INSULIN LISPRO 300 UNITS/3 ML VIAL. SQ SCH ×3 (07:48→17:00)
[2021-08-11] MEDS: metFORMIN 500 MG TABLET PO SCH ×2 (08:13→17:01)
[2021-08-11] MEDS: DIVALPROEX 125 MG CAP.SPRINK PO SCH ×2 (08:13→17:01)
[2021-08-11] MEDS: FERROUS SULFATE 325 MG TABLET. PO SCH ×2 (08:13→17:01)
[2021-08-11] MEDS: busPIRone 5 MG TABLET. PO SCH ×2 (08:13→17:01)
[2021-08-11] MEDS: ASCORBIC ACID 500 MG TABLET PO SCH ×2 (08:13→17:01)
[2021-08-11] MEDS: SERTRALINE 50 MG TABLET. PO SCH (08:14)
[2021-08-11] MEDS: NYSTATIN TOPICAL POWDER 15GM BOTTLE. TP SCH ×2 (08:14→20:13)
--- NOTE | 2021-08-11 09:26 | NUR ---
Pt begins the morning in a high state of anxiety. While in the dining room she began to yell "oh my God" non-stop as well as scream "my feet are cold" despite the fact that she is wearing socks. Pt unable to be de-escalated or redirected, as she screams continuously and will not stop long enough for staff to be able to say anything. Other patients began to yell at her to stop, however she would not. Pt was so disruptive she had to be escorted back to her room so the other patients in the dining room could complete their breakfasts. While in her room alone she was observed to still be periodically yelling, talking to herself, and talking to an unseen entity (possible VH/AH). PRN Zyprexa 2.5 mg PO administered.
--- NOTE | 2021-08-11 10:03 | NUR ---
Pt first receptive to taking medications but stopped half way, refusing the rest of the pills. Pt encouraged to take medications by multiple staff however she continued to yell and be belligerent. When told the medications may have to be SL she replied "I don't give a shit." Medications placed in syringe and shown to pt with continued encouragement to take the medications. Pt replied, "No. I don't give a shit!" Medications administered SL. During administration pt continued to attempt to yell at staff which resulted in her coughing on the medication. Pt assisted with coughing by staff, she began to cough clear phlegm out and she had a wet vocal quality when she spoke. PRN Albuteral administered. Dr Díaz notified. Order for CXR. Addendum: 08/11/21 at 1102 by RENEE HARMON RN Pt's diet order changed to nectar thick liquids, Dietary Services notified. Pt is in her room, coughing intermittently. She has resumed talking to self and possible hallucinations, vocal quality is occasionally wet sounding. O2 sats 94% RA, breathing unlabored. Pt states "I feel fine" and shows no signs of distress. Lungs diminished to auscultation.
--- NOTE | 2021-08-11 11:33 | RAD ---
XR CHEST 1V History: Reason: aspiration / Spl. Instructions: / History: Comparison: None. Findings: Mild multifocal ill-defined opacities bilaterally. No pleural effusion. No pneumothorax. Normal heart size. Glenohumeral DJD. Impression: 1. Mild multifocal ill-defined opacities, can be seen with pneumonia or edema. Electronically signed by: Андрей Calderon DO (08/11/2021 11:30 AM) [facility] [place]
--- NOTE | 2021-08-11 11:43 | NUR ---
Notified Dr Díaz of CXR, he states he will see her on rounds. VS obtained: T 98.1, RR 18, BP 117/72, HR 80, O2 95% RA. Pt continues to make statements that are not based in reality, such as asking how my "baby brother" is doing. Pt occasionally cries out "oh my God." These statements are consistent with her baseline. She coughs intermittently and continues to have a slightly wet vocal quality. When asked if she is having difficulty breathing she denies it; breathing even equal and unlabored. At the time of this writing pt is in her room talking to herself and/or possible hallucination. Addendum: 08/11/21 at 1233 by RENEE HARMON RN Accompanied Dr Díaz on rounds with pt. Pt assessed, no orders at this time. Dr Díaz recommends that he be notified should a change in condition or VS occur.
[2021-08-11 11:51] VITALS: BP 117/72
[2021-08-11 13:41] LABS: BASO % 1 % (0-3); EOS # 0.2 x10^3/uL (0.0-0.7); EOS % 3 % (0-3); HEMATOCRIT 33.6 % (36.0-47.0); HEMOGLOBIN 10.6 g/dL (12.0-15.5); LYMPH # 2.5 x10^3/uL (1.0-4.8); LYMPH % 36 % (24-48); MEAN CORPUSCULAR HEMOGLOBIN 27 pg (25-35); MEAN CORPUSCULAR HGB CONC 32 g/dL (31-37); MEAN CORPUSCULAR VOLUME 85 fL (79-100); MONO # 0.6 x10^3/uL (0.0-1.1); MONO % 9 % (0-9); NEUT # 3.5 x10^3uL (1.8-7.7); NEUT % 51 % (31-73); PLATELET COUNT 147 x10^3/uL (140-400); RED BLOOD COUNT 3.93 x10^6/uL (3.50-5.40); RED CELL DISTRIBUTION WIDTH 15.4 % (11.5-14.5); WHITE BLOOD COUNT 6.9 x10^3/uL (4.0-11.0)
[2021-08-11 13:55] LABS: ALBUMIN 2.5 g/dL (3.4-5.0); ALBUMIN/GLOBULIN RATIO 0.6 (1.0-1.7); CALCIUM 8.6 mg/dL (8.5-10.1); CREATININE 0.9 mg/dL (0.6-1.0); GFR 59.7; POTASSIUM 4.6 mmol/L (3.5-5.1); TOTAL BILIRUBIN 0.2 mg/dL (0.2-1.0); TOTAL PROTEIN 6.8 g/dL (6.4-8.2)
[2021-08-11 15:53] VITALS: BP 132/73
--- NOTE | 2021-08-11 15:59 | NUR ---
NURSING NOTE THIS RN TOOK OVER PT CARE THIS AFTERNOON, REPORT FROM RENEE Alaniz RN. PT WAS IN DAY ROOM UPON ASSESSMENT SITTING AT THE TABLE. LABS COLLECTED, PT WAS COOPERATIVE. PT HAS A COUGH. WHEN OFFERED A SNACK THIS AFTERNOON PT DECLINED STATING THAT EVERY TIME SHE EATS SOMETHING SHE COUGHS. PT CONTINUES TO BE HYPERVERBAL, REPETITIVE WITH HER WORDS, AND YELLING OUT WHEN SITTING ALONE IN THE CHAIR. PT DENIES PAIN WHEN ASKED. WILL CONTINUE TO MONITOR. CLYDE DURAN.
[2021-08-11] MEDS: risperiDONE 1 MG TABLET. PO SCH (20:13)
[2021-08-11] MEDS: MIRTAZAPINE 15 MG TABLET PO SCH (20:13)
[2021-08-11] MEDS: traZODone 50 MG TABLET. PO SCH (20:13)
[2021-08-11] MEDS: MELATONIN 3 MG TABLET PO SCH (20:13)
[2021-08-11] MEDS: risperiDONE 0.5 MG TABLET. PO SCH (20:13)
--- NOTE | 2021-08-11 20:59 | PDOC ---
Exam Note: [place] Note: Please also refer to the separate dictated note~for this date of service dictated separately.~Patient seen individually. Discussed the patient with Nursing staff reviewed the chart.~Reviewed interim history and current functioning. Reviewed vital signs,~Labs/ Radiology~and current medications noted below. Continue current treatment with the changes noted in the dictated addendum note Assessment: Vital Signs/I&O: Vital Signs Date Time Temp Pulse Resp B/P (MAP) Pulse Ox O2 Delivery O2 Flow Rate FiO2 08/11/21 15:53 97.1 81 20 132/73 (92) 91 08/11/21 11:51 Room Air I & O 08/10/21 08/10/21 08/11/21 15:00 23:00 07:00 Intake Total 600 ml 480 ml Balance 600 ml 480 ml Labs: Laboratory Tests Test 08/11/21 07:44 08/11/21 11:24 08/11/21 13:32 08/11/21 16:52 Glucose (Fingerstick) 82 mg/dL (70-99) 164 mg/dL (70-99) H 111 mg/dL (70-99) H White Blood Count 6.9 x10^3/uL (4.0-11.0) Red Blood Count 3.93 x10^6/uL (3.50-5.40) Hemoglobin 10.6 g/dL (12.0-15.5) L Hematocrit 33.6 % (36.0-47.0) L Mean Corpuscular Volume 85 fL (79-100) Mean Corpuscular Hemoglobin 27 pg (25-35) Mean Corpuscular Hemoglobin Concent 32 g/dL (31-37) Red Cell Distribution Width 15.4 % (11.5-14.5) H Platelet Count 147 x10^3/uL (140-400) Neutrophils (%) (Auto) 51 % (31-73) Lymphocytes (%) (Auto) 36 % (24-48) Monocytes (%) (Auto) 9 % (0-9) Eosinophils (%) (Auto) 3 % (0-3) Basophils (%) (Auto) 1 % (0-3) Neutrophils # (Auto) 3.5 x10^3uL (1.8-7.7) Lymphocytes # (Auto) 2.5 x10^3/uL (1.0-4.8) Monocytes # (Auto) 0.6 x10^3/uL (0.0-1.1) Eosinophils # (Auto) 0.2 x10^3/uL (0.0-0.7) Basophils # (Auto) 0.0 x10^3/uL (0.0-0.2) Sodium Level 142 mmol/L (136-145) Potassium Level 4.6 mmol/L (3.5-5.1) Chloride Level 106 mmol/L (98-107) Carbon Dioxide Level 29 mmol/L (21-32) Anion Gap 7 (6-14) Blood Urea Nitrogen 27 mg/dL (7-20) H Creatinine 0.9 mg/dL (0.6-1.0) Estimated GFR (Cockcroft-Gault) 59.7 BUN/Creatinine Ratio 30 (6-20) H Glucose Level 121 mg/dL (70-99) H Calcium Level 8.6 mg/dL (8.5-10.1) Total Bilirubin 0.2 mg/dL (0.2-1.0) Aspartate Amino Transferase (AST) 23 U/L (15-37) Alanine Aminotransferase (ALT) 24 U/L (14-59) Alkaline Phosphatase 99 U/L (46-116) Total Protein 6.8 g/dL (6.4-8.2) Albumin 2.5 g/dL (3.4-5.0) L Albumin/Globulin Ratio 0.6 (1.0-1.7) L Test 08/11/21 19:09 Glucose (Fingerstick) 157 mg/dL (70-99) H Current Medications: Meds: Laboratory Tests Test 08/11/21 07:44 08/11/21 11:24 08/11/21 13:32 08/11/21 16:52 Glucose (Fingerstick) 82 mg/dL 164 mg/dL 111 mg/dL White Blood Count 6.9 x10^3/uL Red Blood Count 3.93 x10^6/uL Hemoglobin 10.6 g/dL Hematocrit 33.6 % Mean Corpuscular Volume 85 fL Mean Corpuscular Hemoglobin 27 pg Mean Corpuscular Hemoglobin Concent 32 g/dL Red Cell Distribution Width 15.4 % Platelet Count 147 x10^3/uL Neutrophils (%) (Auto) 51 % Lymphocytes (%) (Auto) 36 % Monocytes (%) (Auto) 9 % Eosinophils (%) (Auto) 3 % Basophils (%) (Auto) 1 % Neutrophils # (Auto) 3.5 x10^3uL Lymphocytes # (Auto) 2.5 x10^3/uL Monocytes # (Auto) 0.6 x10^3/uL Eosinophils # (Auto) 0.2 x10^3/uL Basophils # (Auto) 0.0 x10^3/uL Sodium Level 142 mmol/L Potassium Level 4.6 mmol/L Chloride Level 106 mmol/L Carbon Dioxide Level 29 mmol/L Anion Gap 7 Blood Urea Nitrogen 27 mg/dL Creatinine 0.9 mg/dL Estimated GFR (Cockcroft-Gault) 59.7 BUN/Creatinine Ratio 30 Glucose Level 121 mg/dL Calcium Level 8.6 mg/dL Total Bilirubin 0.2 mg/dL Aspartate Amino Transf (AST/SGOT) 23 U/L Alanine Aminotransferase (ALT/SGPT) 24 U/L Alkaline Phosphatase 99 U/L Total Protein 6.8 g/dL Albumin 2.5 g/dL Albumin/Globulin Ratio 0.6 Test 08/11/21 19:09 Glucose (Fingerstick) 157 mg/dL Current Medications Medications (Trade) Dose Ordered Sig/Richard Route PRN Reason Start Time Stop Time Status Last Admin Dose Admin Influenza Virus Vaccine Quadrival (Flulaval Quad [id number] Syringe) 0.5 ml ONCE ONCE VAX IM 07/17/21 09:00 07/17/21 09:01 DC 07/17/21 10:00 Acetaminophen (Tylenol) 650 mg PRN Q6HRS PRN PO PAIN/FEVER 07/16/21 22:45 UNV Metformin HCl (Glucophage) 1,000 mg BIDWMEALS PO 07/17/21 08:00 08/11/21 17:01 Nystatin (Mycostatin) 1 sulma PRN BID PRN TP RASH 07/16/21 22:45 Quetiapine Fumarate (SEROquel) 50 mg BID PO 07/17/21 09:00 07/18/21 10:56 DC 07/18/21 08:21 Trazodone HCl (Desyrel) 50 mg QHS PO 07/17/21 21:00 08/11/21 20:13 Non-Formulary Medication (Albuterol Sulfate (Albuterol Sulfate Neb Soln)) 1 vial QID PRN NEB SHORTNESS OF AIR 07/16/21 22:45 UNV Non-Formulary Medication (Insulin Aspart (Insulin Aspart Flexpen)) 100 unit PRN AFTMEALHC PRN SQ ELEVATED BLOOD SUGAR 07/16/21 22:45 UNV Acetaminophen (Tylenol) 650 mg PRN Q6HRS PRN PO MILD PAIN / TEMP > 100.3'F 07/16/21 22:45 07/29/21 02:12 Multi-Ingredient Ointment (Analgesic [place]) 1 sulma PRN QID PRN TP MUSCLE PAIN 07/16/21 22:45 Al Hydroxide/Mg Hydroxide (Mylanta Plus Xs) 15 ml PRN AFTMEALHC PRN PO DYSPEPSIA 07/16/21 22:45 Magnesium Hydroxide (Milk Of Magnesia) 2,400 mg PRN QHS PRN PO CONSTIPATION 07/16/21 22:45 Albuterol Sulfate (Ventolin) 2.5 mg PRN Q6HRS PRN NEB SHORTNESS OF BREATH 07/16/21 23:00 07/17/21 06:25 DC Insulin Human Lispro (HumaLOG) 0-5 UNITS TIDWMEALS SQ 07/17/21 08:00 08/03/21 08:58 Dextrose (Dextrose 50%-Water Syringe) 12.5 gm PRN Q15MIN PRN IV SEE COMMENTS 07/17/21 00:15 Albuterol Sulfate (Ventolin Hfa Inhaler) 1 puff PRN Q6HRS PRN INH SHORTNESS OF BREATH 07/17/21 06:30 Risperidone (RisperDAL) 0.5 mg HS PO 07/18/21 21:00 07/21/21 19:40 DC 07/20/21 20:18 Olanzapine (ZyPREXA ZYDIS) 2.5 mg PRN Q2HR PRN PO PSYCHOSIS 07/18/21 18:15 08/11/21 20:14 Divalproex Sodium (Depakote Sprinkles) 125 mg BID@0900,1700 PO 07/21/21 09:00 07/25/21 01:54 DC 07/24/21 17:08 Risperidone (RisperDAL) 1 mg HS PO 07/21/21 21:00 07/29/21 18:23 DC 07/28/21 20:11 Trazodone HCl (Desyrel) 50 mg PRN QHS PRN PO INSOMNIA 07/21/21 19:45 08/11/21 01:48 Mirtazapine (Remeron) 7.5 mg QHS PO 07/21/21 21:00 07/22/21 19:52 DC 07/21/21 20:04 Mirtazapine (Remeron) 15 mg QHS PO 07/22/21 21:00 08/11/21 20:13 Melatonin (Melatonin) 3 mg QHS PO 07/22/21 21:00 07/23/21 20:00 DC 07/22/21 20:21 Melatonin (Melatonin) 4.5 mg QHS PO 07/23/21 21:00 08/11/21 20:13 Divalproex Sodium (Depakote Sprinkles) 250 mg BID@0900,1700 PO 07/25/21 09:00 07/28/21 19:57 DC 07/28/21 17:07 Nystatin (Nystop) 1 sulma BID TP 07/27/21 21:00 08/11/21 20:13 Divalproex Sodium (Depakote Sprinkles) 375 mg BID@0900,1700 PO 07/29/21 09:00 08/11/21 17:01 Risperidone (RisperDAL) 0.25 mg QHS PO 07/29/21 21:00 08/09/21 19:39 DC 08/08/21 20:35 Risperidone (RisperDAL) 1 mg QHS PO 07/29/21 21:00 08/11/21 20:13 Sertraline HCl (Zoloft) 25 mg DAILY PO 08/03/21 09:00 08/05/21 12:00 DC 08/05/21 08:32 Sertraline HCl (Zoloft) 50 mg DAILY PO 08/06/21 09:00 08/10/21 20:02 DC 08/10/21 08:48 Ascorbic Acid (Vitamin C) 500 mg BIDWMEALS PO 08/06/21 17:00 08/11/21 17:01 Ferrous Sulfate (Feosol) 325 mg BIDWMEALS PO 08/06/21 17:00 08/11/21 17:01 Risperidone (RisperDAL) 0.5 mg QHS PO 08/09/21 21:00 08/11/21 20:13 Sertraline HCl (Zoloft) 75 mg DAILY PO 08/11/21 09:00 08/13/21 09:01 08/11/21 08:14 Buspirone HCl (Buspar) 5 mg BID@0900,1700 PO 08/11/21 09:00 08/11/21 17:01 Sertraline HCl (Zoloft) 100 mg DAILY PO 08/14/21 09:00 Current Medications Medications (Trade) Dose Ordered Sig/Richard Route PRN Reason Start Time Stop Time Status Last Admin Dose Admin Sertraline HCl (Zoloft) 75 mg DAILY PO 08/11/21 09:00 08/13/21 09:01 08/11/21 08:14 Buspirone HCl (Buspar) 5 mg BID@0900,1700 PO 08/11/21 09:00 08/11/21 17:01 I have reviewed the current psychotropics carefully including drug interactions. Risk benefit ratio favors no change other than as noted in my dictated progress note. Diagnosis: Problems: (1) Impulse control disorder, unspecified (2) Anxiety disorder, unspecified (3) Dementia, vascular, with depression (4) Dementia, vascular, with delusions (5) Dementia in Alzheimer's disease with depression (6) Dementia in Alzheimer's disease with delusions (7) Dementia of the Alzheimer's type with early onset with behavioral disturbance (8) Major neurocognitive disorder SOO BAIRES MD Aug 11, 2021 20:59
[2021-08-11 21:34] LABS: BILIRUBIN,URINE NEG (NEG); CLARITY,URINE CLOUDY; COLOR,URINE YELLOW; GLUCOSE,URINE NEG (NEG)
[2021-08-11 21:35] LABS: BACTERIA,URINE MOD /HPF (0-FEW); NITRITE,URINE NEG (NEG); SQUAMOUS EPITHELIAL CELL,UR MANY /LPF; UROBILINOGEN,URINE 0.2 mg/dL (0.2 mg/dL); WBC,URINE >40 /HPF (0-4)
--- NOTE | 2021-08-11 22:25 | NUR ---
Pt restless and anxious this evening wandering throughout the unit. Pt continues to yell "oh my god" repeatedly. Unable to redirect. Pt appears more confused than previously. UA obtained and urine culture now pending. Pt was compliant with whole medications without incident. Slight cough noted, not productive. Pt currently awake in bed intermittently yelling out.
[2021-08-12 06:08] VITALS: BP 126/71
--- NOTE | 2021-08-12 07:23 | PDOC ---
Exam Note: [place] Note: This note is a late entry for 08/10/2021 covers elements not covered in my initial note. Subjective: The patient was seen individually in the evening of 08/10/2021 with Nahomi TANG, discussed and reviewed the chart. The patient slept 7-1/4 hours previous night. I met with her in her room. She received p.r.n. x2 for yelling, bloody murder per nursing report. At times she has been talking to herself, anxious. Review of Systems: Ambulation impaired, in wheelchair. No CV, , pulmonary, eye, ENT system symptoms on review. Reliability poor. Mental Status Exam: The patient is oriented to herself. Insight and judgment, recent and remote memory, attention and concentration, fund of knowledge is poor consistent with her diagnosis. Laboratory Data: Reviewed. Impression: Major neurocognitive disorder Alzheimer, vascular, with delusions, depression, behavioral disturbance. Anxiety disorder unspecified. Impulse control disorder unspecified. Plan: Patient continues to have marked mood lability. She is less psychotic but yelling and impulsive. We will add BuSpar 5 mg 9 a.m. and 5 p.m. Increase Zoloft from 50 mg a day to 75 mg a day. Continue rest unchanged. Reviewed drug interactions and risk-benefit ratio. Assessment: Vital Signs/I&O: Vital Signs Date Time Temp Pulse Resp B/P (MAP) Pulse Ox O2 Delivery O2 Flow Rate FiO2 08/12/21 06:08 97.5 91 20 126/71 (89) 90 08/11/21 11:51 Room Air I & O 08/11/21 08/11/21 08/12/21 14:59 22:59 06:59 Intake Total 600 ml Balance 600 ml Labs: Laboratory Tests Test 08/11/21 07:44 08/11/21 11:24 08/11/21 13:32 08/11/21 16:52 Glucose (Fingerstick) 82 mg/dL (70-99) 164 mg/dL (70-99) H 111 mg/dL (70-99) H White Blood Count 6.9 x10^3/uL (4.0-11.0) Red Blood Count 3.93 x10^6/uL (3.50-5.40) Hemoglobin 10.6 g/dL (12.0-15.5) L Hematocrit 33.6 % (36.0-47.0) L Mean Corpuscular Volume 85 fL (79-100) Mean Corpuscular Hemoglobin 27 pg (25-35) Mean Corpuscular Hemoglobin Concent 32 g/dL (31-37) Red Cell Distribution Width 15.4 % (11.5-14.5) H Platelet Count 147 x10^3/uL (140-400) Neutrophils (%) (Auto) 51 % (31-73) Lymphocytes (%) (Auto) 36 % (24-48) Monocytes (%) (Auto) 9 % (0-9) Eosinophils (%) (Auto) 3 % (0-3) Basophils (%) (Auto) 1 % (0-3) Neutrophils # (Auto) 3.5 x10^3uL (1.8-7.7) Lymphocytes # (Auto) 2.5 x10^3/uL (1.0-4.8) Monocytes # (Auto) 0.6 x10^3/uL (0.0-1.1) Eosinophils # (Auto) 0.2 x10^3/uL (0.0-0.7) Basophils # (Auto) 0.0 x10^3/uL (0.0-0.2) Sodium Level 142 mmol/L (136-145) Potassium Level 4.6 mmol/L (3.5-5.1) Chloride Level 106 mmol/L (98-107) Carbon Dioxide Level 29 mmol/L (21-32) Anion Gap 7 (6-14) Blood Urea Nitrogen 27 mg/dL (7-20) H Creatinine 0.9 mg/dL (0.6-1.0) Estimated GFR (Cockcroft-Gault) 59.7 BUN/Creatinine Ratio 30 (6-20) H Glucose Level 121 mg/dL (70-99) H Calcium Level 8.6 mg/dL (8.5-10.1) Total Bilirubin 0.2 mg/dL (0.2-1.0) Aspartate Amino Transferase (AST) 23 U/L (15-37) Alanine Aminotransferase (ALT) 24 U/L (14-59) Alkaline Phosphatase 99 U/L (46-116) Total Protein 6.8 g/dL (6.4-8.2) Albumin 2.5 g/dL (3.4-5.0) L Albumin/Globulin Ratio 0.6 (1.0-1.7) L Test 08/11/21 19:09 08/11/21 20:45 Glucose (Fingerstick) 157 mg/dL (70-99) H Urine Collection Type Clean catch Urine Color Yellow Urine Clarity Cloudy Urine pH 5.5 Urine Specific [place] 1.025 Urine Protein Neg (NEG-TRACE) Urine Glucose (UA) Neg mg/dL (NEG) Urine Ketones (Stick) 15 mg/dL (NEG) Urine Blood Neg (NEG) Urine Nitrite Neg (NEG) Urine Bilirubin Neg (NEG) Urine Urobilinogen Dipstick 0.2 mg/dL (0.2 mg/dL) Urine Leukocyte Esterase Mod (NEG) Urine RBC 3-5 /HPF (0-2) Urine WBC >40 /HPF (0-4) Urine Squamous Epithelial Cells Many /LPF Urine Bacteria Mod /HPF (0-FEW) Current Medications: Meds: Laboratory Tests Test 08/11/21 07:44 08/11/21 11:24 08/11/21 13:32 08/11/21 16:52 Glucose (Fingerstick) 82 mg/dL 164 mg/dL 111 mg/dL White Blood Count 6.9 x10^3/uL Red Blood Count 3.93 x10^6/uL Hemoglobin 10.6 g/dL Hematocrit 33.6 % Mean Corpuscular Volume 85 fL Mean Corpuscular Hemoglobin 27 pg Mean Corpuscular Hemoglobin Concent 32 g/dL Red Cell Distribution Width 15.4 % Platelet Count 147 x10^3/uL Neutrophils (%) (Auto) 51 % Lymphocytes (%) (Auto) 36 % Monocytes (%) (Auto) 9 % Eosinophils (%) (Auto) 3 % Basophils (%) (Auto) 1 % Neutrophils # (Auto) 3.5 x10^3uL Lymphocytes # (Auto) 2.5 x10^3/uL Monocytes # (Auto) 0.6 x10^3/uL Eosinophils # (Auto) 0.2 x10^3/uL Basophils # (Auto) 0.0 x10^3/uL Sodium Level 142 mmol/L Potassium Level 4.6 mmol/L Chloride Level 106 mmol/L Carbon Dioxide Level 29 mmol/L Anion Gap 7 Blood Urea Nitrogen 27 mg/dL Creatinine 0.9 mg/dL Estimated GFR (Cockcroft-Gault) 59.7 BUN/Creatinine Ratio 30 Glucose Level 121 mg/dL Calcium Level 8.6 mg/dL Total Bilirubin 0.2 mg/dL Aspartate Amino Transf (AST/SGOT) 23 U/L Alanine Aminotransferase (ALT/SGPT) 24 U/L Alkaline Phosphatase 99 U/L Total Protein 6.8 g/dL Albumin 2.5 g/dL Albumin/Globulin Ratio 0.6 Test 08/11/21 19:09 08/11/21 20:45 Glucose (Fingerstick) 157 mg/dL Urine Collection Type Clean catch Urine Color Yellow Urine Clarity Cloudy Urine pH 5.5 Urine Specific [place] 1.025 Urine Protein Neg Urine Glucose (UA) Neg mg/dL Urine Ketones (Stick) 15 mg/dL Urine Blood Neg Urine Nitrite Neg Urine Bilirubin Neg Urine Urobilinogen Dipstick 0.2 mg/dL Urine Leukocyte Esterase Mod Urine RBC 3-5 /HPF Urine WBC >40 /HPF Urine Squamous Epithelial Cells Many /LPF Urine Bacteria Mod /HPF Current Medications Medications (Trade) Dose Ordered Sig/Richard Route PRN Reason Start Time Stop Time Status Last Admin Dose Admin Influenza Virus Vaccine Quadrival (Flulaval Quad [id number] Syringe) 0.5 ml ONCE ONCE VAX IM 07/17/21 09:00 07/17/21 09:01 DC 07/17/21 10:00 Acetaminophen (Tylenol) 650 mg PRN Q6HRS PRN PO PAIN/FEVER 07/16/21 22:45 UNV Metformin HCl (Glucophage) 1,000 mg BIDWMEALS PO 07/17/21 08:00 08/11/21 17:01 Nystatin (Mycostatin) 1 sulma PRN BID PRN TP RASH 07/16/21 22:45 Quetiapine Fumarate (SEROquel) 50 mg BID PO 07/17/21 09:00 07/18/21 10:56 DC 07/18/21 08:21 Trazodone HCl (Desyrel) 50 mg QHS PO 07/17/21 21:00 08/11/21 20:13 Non-Formulary Medication (Albuterol Sulfate (Albuterol Sulfate Neb Soln)) 1 vial QID PRN NEB SHORTNESS OF AIR 07/16/21 22:45 UNV Non-Formulary Medication (Insulin Aspart (Insulin Aspart Flexpen)) 100 unit PRN AFTMEALHC PRN SQ ELEVATED BLOOD SUGAR 07/16/21 22:45 UNV Acetaminophen (Tylenol) 650 mg PRN Q6HRS PRN PO MILD PAIN / TEMP > 100.3'F 07/16/21 22:45 07/29/21 02:12 Multi-Ingredient Ointment (Analgesic [place]) 1 sulma PRN QID PRN TP MUSCLE PAIN 07/16/21 22:45 Al Hydroxide/Mg Hydroxide (Mylanta Plus Xs) 15 ml PRN AFTMEALHC PRN PO DYSPEPSIA 07/16/21 22:45 Magnesium Hydroxide (Milk Of Magnesia) 2,400 mg PRN QHS PRN PO CONSTIPATION 07/16/21 22:45 Albuterol Sulfate (Ventolin) 2.5 mg PRN Q6HRS PRN NEB SHORTNESS OF BREATH 07/16/21 23:00 07/17/21 06:25 DC Insulin Human Lispro (HumaLOG) 0-5 UNITS TIDWMEALS SQ 07/17/21 08:00 08/03/21 08:58 Dextrose (Dextrose 50%-Water Syringe) 12.5 gm PRN Q15MIN PRN IV SEE COMMENTS 07/17/21 00:15 Albuterol Sulfate (Ventolin Hfa Inhaler) 1 puff PRN Q6HRS PRN INH SHORTNESS OF BREATH 07/17/21 06:30 Risperidone (RisperDAL) 0.5 mg HS PO 07/18/21 21:00 07/21/21 19:40 DC 07/20/21 20:18 Olanzapine (ZyPREXA ZYDIS) 2.5 mg PRN Q2HR PRN PO PSYCHOSIS 07/18/21 18:15 08/11/21 20:14 Divalproex Sodium (Depakote Sprinkles) 125 mg BID@0900,1700 PO 07/21/21 09:00 07/25/21 01:54 DC 07/24/21 17:08 Risperidone (RisperDAL) 1 mg HS PO 07/21/21 21:00 07/29/21 18:23 DC 07/28/21 20:11 Trazodone HCl (Desyrel) 50 mg PRN QHS PRN PO INSOMNIA 07/21/21 19:45 08/11/21 01:48 Mirtazapine (Remeron) 7.5 mg QHS PO 07/21/21 21:00 07/22/21 19:52 DC 07/21/21 20:04 Mirtazapine (Remeron) 15 mg QHS PO 07/22/21 21:00 08/11/21 20:13 Melatonin (Melatonin) 3 mg QHS PO 07/22/21 21:00 07/23/21 20:00 DC 07/22/21 20:21 Melatonin (Melatonin) 4.5 mg QHS PO 07/23/21 21:00 08/11/21 20:13 Divalproex Sodium (Depakote Sprinkles) 250 mg BID@0900,1700 PO 07/25/21 09:00 07/28/21 19:57 DC 07/28/21 17:07 Nystatin (Nystop) 1 sulma BID TP 07/27/21 21:00 08/11/21 20:13 Divalproex Sodium (Depakote Sprinkles) 375 mg BID@0900,1700 PO 07/29/21 09:00 08/11/21 17:01 Risperidone (RisperDAL) 0.25 mg QHS PO 07/29/21 21:00 08/09/21 19:39 DC 08/08/21 20:35 Risperidone (RisperDAL) 1 mg QHS PO 07/29/21 21:00 08/11/21 20:13 Sertraline HCl (Zoloft) 25 mg DAILY PO 08/03/21 09:00 08/05/21 12:00 DC 08/05/21 08:32 Sertraline HCl (Zoloft) 50 mg DAILY PO 08/06/21 09:00 08/10/21 20:02 DC 08/10/21 08:48 Ascorbic Acid (Vitamin C) 500 mg BIDWMEALS PO 08/06/21 17:00 08/11/21 17:01 Ferrous Sulfate (Feosol) 325 mg BIDWMEALS PO 08/06/21 17:00 08/11/21 17:01 Risperidone (RisperDAL) 0.5 mg QHS PO 08/09/21 21:00 08/11/21 20:13 Sertraline HCl (Zoloft) 75 mg DAILY PO 08/11/21 09:00 08/13/21 09:01 08/11/21 08:14 Buspirone HCl (Buspar) 5 mg BID@0900,1700 PO 08/11/21 09:00 08/11/21 17:01 Sertraline HCl (Zoloft) 100 mg DAILY PO 08/14/21 09:00 Current Medications Medications (Trade) Dose Ordered Sig/Richard Route PRN Reason Start Time Stop Time Status Last Admin Dose Admin Sertraline HCl (Zoloft) 75 mg DAILY PO 08/11/21 09:00 08/13/21 09:01 08/11/21 08:14 Buspirone HCl (Buspar) 5 mg BID@0900,1700 PO 08/11/21 09:00 08/11/21 17:01 I have reviewed the current psychotropics carefully including drug interactions. Risk benefit ratio favors no change other than as noted in my dictated progress note. 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
--- NOTE | 2021-08-12 07:36 | PDOC ---
Exam Note: [place] Note: This note is a late entry for 08/11/2021 covers elements not covered in my initial note. Subjective: The patient was seen individually in the evening of 08/11/2021 with Nahomi TANG, discussed and reviewed the chart. The patient slept 7 hours previous night. Previous night the patient was anxious, hyperverbal, telling the nursing staff to tie her arms and throw her out of the truck. I questioned her closely, she denies suicidal ideation. She refused a.m. medications. It has to be syringed. She aspirated and chest x-ray has been done. Defer to Dr. Díaz. Review of Systems: I met with her in her room. Ambulation impaired, in wheelchair. No CV, , pulmonary, eye, ENT system symptoms on review. Reliability poor. Mental Status Exam: The patient is oriented to herself. She is anxious, restless, yelling. Insight and judgment, recent and remote memory, attention and concentration, fund of knowledge is poor consistent with her diagnosis. Laboratory Data: Reviewed. Impression: Major neurocognitive disorder Alzheimer, vascular, with delusions, depression, behavioral disturbance. Anxiety disorder unspecified. Impulse control disorder unspecified. Plan: Increase Zoloft from 75 mg a day to 100 mg a day to help with her mood and anxiety symptoms. We may start her on schedule trazodone to help with mood lability as well. We will make that decision in the next day or so. Continue current psychotropics including Risperdal 1.5 mg h.s. Assessment: Vital Signs/I&O: Vital Signs Date Time Temp Pulse Resp B/P (MAP) Pulse Ox O2 Delivery O2 Flow Rate FiO2 08/12/21 06:08 97.5 91 20 126/71 (89) 90 08/11/21 11:51 Room Air I & O 08/11/21 08/11/21 08/12/21 15:00 23:00 07:00 Intake Total 600 ml Balance 600 ml Labs: Laboratory Tests Test 08/11/21 07:44 08/11/21 11:24 08/11/21 13:32 08/11/21 16:52 Glucose (Fingerstick) 82 mg/dL (70-99) 164 mg/dL (70-99) H 111 mg/dL (70-99) H White Blood Count 6.9 x10^3/uL (4.0-11.0) Red Blood Count 3.93 x10^6/uL (3.50-5.40) Hemoglobin 10.6 g/dL (12.0-15.5) L Hematocrit 33.6 % (36.0-47.0) L Mean Corpuscular Volume 85 fL (79-100) Mean Corpuscular Hemoglobin 27 pg (25-35) Mean Corpuscular Hemoglobin Concent 32 g/dL (31-37) Red Cell Distribution Width 15.4 % (11.5-14.5) H Platelet Count 147 x10^3/uL (140-400) Neutrophils (%) (Auto) 51 % (31-73) Lymphocytes (%) (Auto) 36 % (24-48) Monocytes (%) (Auto) 9 % (0-9) Eosinophils (%) (Auto) 3 % (0-3) Basophils (%) (Auto) 1 % (0-3) Neutrophils # (Auto) 3.5 x10^3uL (1.8-7.7) Lymphocytes # (Auto) 2.5 x10^3/uL (1.0-4.8) Monocytes # (Auto) 0.6 x10^3/uL (0.0-1.1) Eosinophils # (Auto) 0.2 x10^3/uL (0.0-0.7) Basophils # (Auto) 0.0 x10^3/uL (0.0-0.2) Sodium Level 142 mmol/L (136-145) Potassium Level 4.6 mmol/L (3.5-5.1) Chloride Level 106 mmol/L (98-107) Carbon Dioxide Level 29 mmol/L (21-32) Anion Gap 7 (6-14) Blood Urea Nitrogen 27 mg/dL (7-20) H Creatinine 0.9 mg/dL (0.6-1.0) Estimated GFR (Cockcroft-Gault) 59.7 BUN/Creatinine Ratio 30 (6-20) H Glucose Level 121 mg/dL (70-99) H Calcium Level 8.6 mg/dL (8.5-10.1) Total Bilirubin 0.2 mg/dL (0.2-1.0) Aspartate Amino Transferase (AST) 23 U/L (15-37) Alanine Aminotransferase (ALT) 24 U/L (14-59) Alkaline Phosphatase 99 U/L (46-116) Total Protein 6.8 g/dL (6.4-8.2) Albumin 2.5 g/dL (3.4-5.0) L Albumin/Globulin Ratio 0.6 (1.0-1.7) L Test 08/11/21 19:09 08/11/21 20:45 08/12/21 07:32 Glucose (Fingerstick) 157 mg/dL (70-99) H 103 mg/dL (70-99) H Urine Collection Type Clean catch Urine Color Yellow Urine Clarity Cloudy Urine pH 5.5 Urine Specific [place] 1.025 Urine Protein Neg (NEG-TRACE) Urine Glucose (UA) Neg mg/dL (NEG) Urine Ketones (Stick) 15 mg/dL (NEG) Urine Blood Neg (NEG) Urine Nitrite Neg (NEG) Urine Bilirubin Neg (NEG) Urine Urobilinogen Dipstick 0.2 mg/dL (0.2 mg/dL) Urine Leukocyte Esterase Mod (NEG) Urine RBC 3-5 /HPF (0-2) Urine WBC >40 /HPF (0-4) Urine Squamous Epithelial Cells Many /LPF Urine Bacteria Mod /HPF (0-FEW) Current Medications: Meds: Laboratory Tests Test 08/11/21 07:44 08/11/21 11:24 08/11/21 13:32 08/11/21 16:52 Glucose (Fingerstick) 82 mg/dL 164 mg/dL 111 mg/dL White Blood Count 6.9 x10^3/uL Red Blood Count 3.93 x10^6/uL Hemoglobin 10.6 g/dL Hematocrit 33.6 % Mean Corpuscular Volume 85 fL Mean Corpuscular Hemoglobin 27 pg Mean Corpuscular Hemoglobin Concent 32 g/dL Red Cell Distribution Width 15.4 % Platelet Count 147 x10^3/uL Neutrophils (%) (Auto) 51 % Lymphocytes (%) (Auto) 36 % Monocytes (%) (Auto) 9 % Eosinophils (%) (Auto) 3 % Basophils (%) (Auto) 1 % Neutrophils # (Auto) 3.5 x10^3uL Lymphocytes # (Auto) 2.5 x10^3/uL Monocytes # (Auto) 0.6 x10^3/uL Eosinophils # (Auto) 0.2 x10^3/uL Basophils # (Auto) 0.0 x10^3/uL Sodium Level 142 mmol/L Potassium Level 4.6 mmol/L Chloride Level 106 mmol/L Carbon Dioxide Level 29 mmol/L Anion Gap 7 Blood Urea Nitrogen 27 mg/dL Creatinine 0.9 mg/dL Estimated GFR (Cockcroft-Gault) 59.7 BUN/Creatinine Ratio 30 Glucose Level 121 mg/dL Calcium Level 8.6 mg/dL Total Bilirubin 0.2 mg/dL Aspartate Amino Transf (AST/SGOT) 23 U/L Alanine Aminotransferase (ALT/SGPT) 24 U/L Alkaline Phosphatase 99 U/L Total Protein 6.8 g/dL Albumin 2.5 g/dL Albumin/Globulin Ratio 0.6 Test 08/11/21 19:09 08/11/21 20:45 08/12/21 07:32 Glucose (Fingerstick) 157 mg/dL 103 mg/dL Urine Collection Type Clean catch Urine Color Yellow Urine Clarity Cloudy Urine pH 5.5 Urine Specific [place] 1.025 Urine Protein Neg Urine Glucose (UA) Neg mg/dL Urine Ketones (Stick) 15 mg/dL Urine Blood Neg Urine Nitrite Neg Urine Bilirubin Neg Urine Urobilinogen Dipstick 0.2 mg/dL Urine Leukocyte Esterase Mod Urine RBC 3-5 /HPF Urine WBC >40 /HPF Urine Squamous Epithelial Cells Many /LPF Urine Bacteria Mod /HPF Current Medications Medications (Trade) Dose Ordered Sig/Richard Route PRN Reason Start Time Stop Time Status Last Admin Dose Admin Influenza Virus Vaccine Quadrival (Flulaval Quad Syringe) 0.5 ml ONCE ONCE VAX IM 07/17/21 09:00 07/17/21 09:01 DC 07/17/21 10:00 Acetaminophen (Tylenol) 650 mg PRN Q6HRS PRN PO PAIN/FEVER 07/16/21 22:45 UNV Metformin HCl (Glucophage) 1,000 mg BIDWMEALS PO 07/17/21 08:00 08/11/21 17:01 Nystatin (Mycostatin) 1 sulma PRN BID PRN TP RASH 07/16/21 22:45 Quetiapine Fumarate (SEROquel) 50 mg BID PO 07/17/21 09:00 07/18/21 10:56 DC 07/18/21 08:21 Trazodone HCl (Desyrel) 50 mg QHS PO 07/17/21 21:00 08/11/21 20:13 Non-Formulary Medication (Albuterol Sulfate (Albuterol Sulfate Neb Soln)) 1 vial QID PRN NEB SHORTNESS OF AIR 07/16/21 22:45 UNV Non-Formulary Medication (Insulin Aspart (Insulin Aspart Flexpen)) 100 unit PRN AFTMEALHC PRN SQ ELEVATED BLOOD SUGAR 07/16/21 22:45 UNV Acetaminophen (Tylenol) 650 mg PRN Q6HRS PRN PO MILD PAIN / TEMP > 100.3'F 07/16/21 22:45 07/29/21 02:12 Multi-Ingredient Ointment (Analgesic [place]) 1 sulma PRN QID PRN TP MUSCLE PAIN 07/16/21 22:45 Al Hydroxide/Mg Hydroxide (Mylanta Plus Xs) 15 ml PRN AFTMEALHC PRN PO DYSPEPSIA 07/16/21 22:45 Magnesium Hydroxide (Milk Of Magnesia) 2,400 mg PRN QHS PRN PO CONSTIPATION 07/16/21 22:45 Albuterol Sulfate (Ventolin) 2.5 mg PRN Q6HRS PRN NEB SHORTNESS OF BREATH 07/16/21 23:00 07/17/21 06:25 DC Insulin Human Lispro (HumaLOG) 0-5 UNITS TIDWMEALS SQ 07/17/21 08:00 08/03/21 08:58 Dextrose (Dextrose 50%-Water Syringe) 12.5 gm PRN Q15MIN PRN IV SEE COMMENTS 07/17/21 00:15 Albuterol Sulfate (Ventolin Hfa Inhaler) 1 puff PRN Q6HRS PRN INH SHORTNESS OF BREATH 07/17/21 06:30 Risperidone (RisperDAL) 0.5 mg HS PO 07/18/21 21:00 07/21/21 19:40 DC 07/20/21 20:18 Olanzapine (ZyPREXA ZYDIS) 2.5 mg PRN Q2HR PRN PO PSYCHOSIS 07/18/21 18:15 08/11/21 20:14 Divalproex Sodium (Depakote Sprinkles) 125 mg BID@0900,1700 PO 07/21/21 09:00 07/25/21 01:54 DC 07/24/21 17:08 Risperidone (RisperDAL) 1 mg HS PO 07/21/21 21:00 07/29/21 18:23 DC 07/28/21 20:11 Trazodone HCl (Desyrel) 50 mg PRN QHS PRN PO INSOMNIA 07/21/21 19:45 08/11/21 01:48 Mirtazapine (Remeron) 7.5 mg QHS PO 07/21/21 21:00 07/22/21 19:52 DC 07/21/21 20:04 Mirtazapine (Remeron) 15 mg QHS PO 07/22/21 21:00 08/11/21 20:13 Melatonin (Melatonin) 3 mg QHS PO 07/22/21 21:00 07/23/21 20:00 DC 07/22/21 20:21 Melatonin (Melatonin) 4.5 mg QHS PO 07/23/21 21:00 08/11/21 20:13 Divalproex Sodium (Depakote Sprinkles) 250 mg BID@0900,1700 PO 07/25/21 09:00 07/28/21 19:57 DC 07/28/21 17:07 Nystatin (Nystop) 1 sulma BID TP 07/27/21 21:00 08/11/21 20:13 Divalproex Sodium (Depakote Sprinkles) 375 mg BID@0900,1700 PO 07/29/21 09:00 08/11/21 17:01 Risperidone (RisperDAL) 0.25 mg QHS PO 07/29/21 21:00 08/09/21 19:39 DC 08/08/21 20:35 Risperidone (RisperDAL) 1 mg QHS PO 07/29/21 21:00 08/11/21 20:13 Sertraline HCl (Zoloft) 25 mg DAILY PO 08/03/21 09:00 08/05/21 12:00 DC 08/05/21 08:32 Sertraline HCl (Zoloft) 50 mg DAILY PO 08/06/21 09:00 08/10/21 20:02 DC 08/10/21 08:48 Ascorbic Acid (Vitamin C) 500 mg BIDWMEALS PO 08/06/21 17:00 08/11/21 17:01 Ferrous Sulfate (Feosol) 325 mg BIDWMEALS PO 08/06/21 17:00 08/11/21 17:01 Risperidone (RisperDAL) 0.5 mg QHS PO 08/09/21 21:00 08/11/21 20:13 Sertraline HCl (Zoloft) 75 mg DAILY PO 08/11/21 09:00 08/13/21 09:01 08/11/21 08:14 Buspirone HCl (Buspar) 5 mg BID@0900,1700 PO 08/11/21 09:00 08/11/21 17:01 Sertraline HCl (Zoloft) 100 mg DAILY PO 08/14/21 09:00 Current Medications Medications (Trade) Dose Ordered Sig/Richard Route PRN Reason Start Time Stop Time Status Last Admin Dose Admin Sertraline HCl (Zoloft) 75 mg DAILY PO 08/11/21 09:00 08/13/21 09:01 08/11/21 08:14 Buspirone HCl (Buspar) 5 mg BID@0900,1700 PO 08/11/21 09:00 08/11/21 17:01 I have reviewed the current psychotropics carefully including drug interactions. Risk benefit ratio favors no change other than as noted in my dictated progress note. Diagnosis: Problems: (1) Impulse control disorder, unspecified (2) Anxiety disorder, unspecified (3) Dementia, vascular, with depression (4) Dementia, vascular, with delusions (5) Dementia in Alzheimer's disease with depression (6) Dementia in Alzheimer's disease with delusions (7) Dementia of the Alzheimer's type with early onset with behavioral disturbance (8) Major neurocognitive disorder SOO BAIRES MD Aug 12, 2021 07:36
[2021-08-12] MEDS: metFORMIN 500 MG TABLET PO SCH ×2 (08:20→17:21)
[2021-08-12] MEDS: INSULIN LISPRO 300 UNITS/3 ML VIAL. SQ SCH ×3 (08:20→17:00)
[2021-08-12] MEDS: ASCORBIC ACID 500 MG TABLET PO SCH ×2 (08:20→17:21)
[2021-08-12] MEDS: FERROUS SULFATE 325 MG TABLET. PO SCH ×2 (08:20→17:21)
[2021-08-12] MEDS: SERTRALINE 50 MG TABLET. PO SCH (08:20)
[2021-08-12] MEDS: DIVALPROEX 125 MG CAP.SPRINK PO SCH ×2 (08:20→17:21)
[2021-08-12] MEDS: ACETAMINOPHEN 325 MG TABLET PO PRN (08:21)
[2021-08-12] MEDS: busPIRone 5 MG TABLET. PO SCH ×2 (08:21→17:20)
[2021-08-12] MEDS: NYSTATIN TOPICAL POWDER 15GM BOTTLE. TP SCH ×2 (09:00→19:49)
[2021-08-12 15:19] VITALS: BP 108/62
--- NOTE | 2021-08-12 18:08 | NUR ---
Nursing note: Patient was in the dinning room for morning medications & assessment. She is compliant with medications taken whole in the am, needed encouragement to take pm medications. She is A/O to self, unable to report year of . She yells out unprovoked, demanding, as well as sarcastic. Patient propels self in w/c or uses walker, however she doesn't always participate requiring a 2:1 transfer assist. She is confused, hyperverbal, resistive to cares, disorganized, & delusional. She has been propelling self through the [place], refused to go to day room to participate in group. She is currently sitting in w/c in [place]. Will continue to monitor.
[2021-08-12] MEDS: MIRTAZAPINE 15 MG TABLET PO SCH (19:49)
[2021-08-12] MEDS: risperiDONE 0.5 MG TABLET. PO SCH (19:49)
[2021-08-12] MEDS: MELATONIN 3 MG TABLET PO SCH (19:49)
[2021-08-12] MEDS: risperiDONE 1 MG TABLET. PO SCH (19:49)
[2021-08-12] MEDS: traZODone 50 MG TABLET. PO SCH (19:49)
--- NOTE | 2021-08-12 20:31 | PDOC ---
Exam Note: [place] Note: Please also refer to the separate dictated note~for this date of service dictated separately.~Patient seen individually. Discussed the patient with Nursing staff reviewed the chart.~Reviewed interim history and current functioning. Reviewed vital signs,~Labs/ Radiology~and current medications noted below. Continue current treatment with the changes noted in the dictated addendum note Assessment: Vital Signs/I&O: Vital Signs Date Time Temp Pulse Resp B/P (MAP) Pulse Ox O2 Delivery O2 Flow Rate FiO2 08/12/21 15:19 98.0 75 18 108/62 (77) 96 08/11/21 11:51 Room Air I & O 08/11/21 08/11/21 08/12/21 14:59 22:59 06:59 Intake Total 600 ml Balance 600 ml Labs: Laboratory Tests Test 08/11/21 20:45 08/12/21 05:00 08/12/21 07:32 08/12/21 11:33 Urine Collection Type Clean catch Urine Color Yellow Urine Clarity Cloudy Urine pH 5.5 Urine Specific [place] 1.025 Urine Protein Neg (NEG-TRACE) Urine Glucose (UA) Neg mg/dL (NEG) Urine Ketones (Stick) 15 mg/dL (NEG) Urine Blood Neg (NEG) Urine Nitrite Neg (NEG) Urine Bilirubin Neg (NEG) Urine Urobilinogen Dipstick 0.2 mg/dL (0.2 mg/dL) Urine Leukocyte Esterase Mod (NEG) Urine RBC 3-5 /HPF (0-2) Urine WBC >40 /HPF (0-4) Urine Squamous Epithelial Cells Many /LPF Urine Bacteria Mod /HPF (0-FEW) SARS-CoV-2 (PCR) Not detected (NOT DETECTD) Glucose (Fingerstick) 103 mg/dL (70-99) H 94 mg/dL (70-99) Test 08/12/21 15:31 08/12/21 19:20 Glucose (Fingerstick) 101 mg/dL (70-99) H 155 mg/dL (70-99) H Current Medications: Meds: Laboratory Tests Test 08/11/21 20:45 08/12/21 05:00 08/12/21 07:32 08/12/21 11:33 Urine Collection Type Clean catch Urine Color Yellow Urine Clarity Cloudy Urine pH 5.5 Urine Specific [place] 1.025 Urine Protein Neg Urine Glucose (UA) Neg mg/dL Urine Ketones (Stick) 15 mg/dL Urine Blood Neg Urine Nitrite Neg Urine Bilirubin Neg Urine Urobilinogen Dipstick 0.2 mg/dL Urine Leukocyte Esterase Mod Urine RBC 3-5 /HPF Urine WBC >40 /HPF Urine Squamous Epithelial Cells Many /LPF Urine Bacteria Mod /HPF Coronavirus (COVID-19)(PCR) Not detected Glucose (Fingerstick) 103 mg/dL 94 mg/dL Test 08/12/21 15:31 08/12/21 19:20 Glucose (Fingerstick) 101 mg/dL 155 mg/dL Current Medications Medications (Trade) Dose Ordered Sig/Richard Route PRN Reason Start Time Stop Time Status Last Admin Dose Admin Influenza Virus Vaccine Quadrival (Flulaval Quad Syringe) 0.5 ml ONCE ONCE VAX IM 07/17/21 09:00 07/17/21 09:01 DC 07/17/21 10:00 Acetaminophen (Tylenol) 650 mg PRN Q6HRS PRN PO PAIN/FEVER 07/16/21 22:45 UNV Metformin HCl (Glucophage) 1,000 mg BIDWMEALS PO 07/17/21 08:00 08/12/21 17:21 Nystatin (Mycostatin) 1 sulma PRN BID PRN TP RASH 07/16/21 22:45 Quetiapine Fumarate (SEROquel) 50 mg BID PO 07/17/21 09:00 07/18/21 10:56 DC 07/18/21 08:21 Trazodone HCl (Desyrel) 50 mg QHS PO 07/17/21 21:00 08/12/21 19:49 Non-Formulary Medication (Albuterol Sulfate (Albuterol Sulfate Neb Soln)) 1 vial QID PRN NEB SHORTNESS OF AIR 07/16/21 22:45 UNV Non-Formulary Medication (Insulin Aspart (Insulin Aspart Flexpen)) 100 unit PRN AFTMEALHC PRN SQ ELEVATED BLOOD SUGAR 07/16/21 22:45 UNV Acetaminophen (Tylenol) 650 mg PRN Q6HRS PRN PO MILD PAIN / TEMP > 100.3'F 07/16/21 22:45 08/12/21 08:21 Multi-Ingredient Ointment (Analgesic [place]) 1 sulma PRN QID PRN TP MUSCLE PAIN 07/16/21 22:45 Al Hydroxide/Mg Hydroxide (Mylanta Plus Xs) 15 ml PRN AFTMEALHC PRN PO DYSPEPSIA 07/16/21 22:45 Magnesium Hydroxide (Milk Of Magnesia) 2,400 mg PRN QHS PRN PO CONSTIPATION 07/16/21 22:45 Albuterol Sulfate (Ventolin) 2.5 mg PRN Q6HRS PRN NEB SHORTNESS OF BREATH 07/16/21 23:00 07/17/21 06:25 DC Insulin Human Lispro (HumaLOG) 0-5 UNITS TIDWMEALS SQ 07/17/21 08:00 08/03/21 08:58 Dextrose (Dextrose 50%-Water Syringe) 12.5 gm PRN Q15MIN PRN IV SEE COMMENTS 07/17/21 00:15 Albuterol Sulfate (Ventolin Hfa Inhaler) 1 puff PRN Q6HRS PRN INH SHORTNESS OF BREATH 07/17/21 06:30 Risperidone (RisperDAL) 0.5 mg HS PO 07/18/21 21:00 07/21/21 19:40 DC 07/20/21 20:18 Olanzapine (ZyPREXA ZYDIS) 2.5 mg PRN Q2HR PRN PO PSYCHOSIS 07/18/21 18:15 08/12/21 19:53 Divalproex Sodium (Depakote Sprinkles) 125 mg BID@0900,1700 PO 07/21/21 09:00 07/25/21 01:54 DC 07/24/21 17:08 Risperidone (RisperDAL) 1 mg HS PO 07/21/21 21:00 07/29/21 18:23 DC 07/28/21 20:11 Trazodone HCl (Desyrel) 50 mg PRN QHS PRN PO INSOMNIA 07/21/21 19:45 08/11/21 01:48 Mirtazapine (Remeron) 7.5 mg QHS PO 07/21/21 21:00 07/22/21 19:52 DC 07/21/21 20:04 Mirtazapine (Remeron) 15 mg QHS PO 07/22/21 21:00 08/12/21 19:49 Melatonin (Melatonin) 3 mg QHS PO 07/22/21 21:00 07/23/21 20:00 DC 07/22/21 20:21 Melatonin (Melatonin) 4.5 mg QHS PO 07/23/21 21:00 08/12/21 19:49 Divalproex Sodium (Depakote Sprinkles) 250 mg BID@0900,1700 PO 07/25/21 09:00 07/28/21 19:57 DC 07/28/21 17:07 Nystatin (Nystop) 1 sulma BID TP 07/27/21 21:00 08/12/21 19:49 Divalproex Sodium (Depakote Sprinkles) 375 mg BID@0900,1700 PO 07/29/21 09:00 08/12/21 17:21 Risperidone (RisperDAL) 0.25 mg QHS PO 07/29/21 21:00 08/09/21 19:39 DC 08/08/21 20:35 Risperidone (RisperDAL) 1 mg QHS PO 07/29/21 21:00 08/12/21 19:49 Sertraline HCl (Zoloft) 25 mg DAILY PO 08/03/21 09:00 08/05/21 12:00 DC 08/05/21 08:32 Sertraline HCl (Zoloft) 50 mg DAILY PO 08/06/21 09:00 08/10/21 20:02 DC 08/10/21 08:48 Ascorbic Acid (Vitamin C) 500 mg BIDWMEALS PO 08/06/21 17:00 08/12/21 17:21 Ferrous Sulfate (Feosol) 325 mg BIDWMEALS PO 08/06/21 17:00 08/12/21 17:21 Risperidone (RisperDAL) 0.5 mg QHS PO 08/09/21 21:00 08/12/21 19:49 Sertraline HCl (Zoloft) 75 mg DAILY PO 08/11/21 09:00 08/13/21 09:01 08/12/21 08:20 Buspirone HCl (Buspar) 5 mg BID@0900,1700 PO 08/11/21 09:00 08/12/21 17:20 Sertraline HCl (Zoloft) 100 mg DAILY PO 08/14/21 09:00 I have reviewed the current psychotropics carefully including drug interactions. Risk benefit ratio favors no change other than as noted in my dictated progress note. Diagnosis: Problems: (1) Impulse control disorder, unspecified (2) Anxiety disorder, unspecified (3) Dementia, vascular, with depression (4) Dementia, vascular, with delusions (5) Dementia in Alzheimer's disease with depression (6) Dementia in Alzheimer's disease with delusions (7) Dementia of the Alzheimer's type with early onset with behavioral disturbance (8) Major neurocognitive disorder SOO BAIRES MD Aug 12, 2021 20:31
--- NOTE | 2021-08-12 22:22 | NUR ---
Pt highly anxious and delusional this evening. Pt yelling out "oh god" repeatedly. Pt hallucinating and carrying on conversations with people that are not present. Pt compliant with crushed medications. Urine culture still pending. Pt continues to have a moist, non productive cough. Pt currently awake in bed yelling out.
[2021-08-12] MEDS: traZODone 50 MG TABLET. PO PRN (22:33)
[2021-08-13 05:48] VITALS: BP 116/66
[2021-08-13] MEDS: INSULIN LISPRO 300 UNITS/3 ML VIAL. SQ SCH ×3 (08:00→17:27)
[2021-08-13] MEDS: SERTRALINE 50 MG TABLET. PO SCH (08:15)
[2021-08-13] MEDS: FERROUS SULFATE 325 MG TABLET. PO SCH ×2 (08:15→17:23)
[2021-08-13] MEDS: busPIRone 5 MG TABLET. PO SCH ×2 (08:15→17:27)
[2021-08-13] MEDS: metFORMIN 500 MG TABLET PO SCH ×2 (08:15→17:23)
[2021-08-13] MEDS: DIVALPROEX 125 MG CAP.SPRINK PO SCH ×2 (08:15→17:23)
[2021-08-13] MEDS: ASCORBIC ACID 500 MG TABLET PO SCH ×2 (08:15→17:23)
[2021-08-13] MEDS: NYSTATIN TOPICAL POWDER 15GM BOTTLE. TP SCH ×2 (08:16→21:19)
--- NOTE | 2021-08-13 15:18 | NUR ---
Nursing note: Patient was in the dinning room for morning medications & assessment. She is compliant with medications taken whole in the am. She is A/O to self, unable to report year of . She yells out unprovoked, demanding, as well as sarcastic. Patient propels self in w/c or uses walker, however she doesn't always participate requiring a 2:1 transfer assist. She is confused, disorganized, & delusional. She was hyperverbal after breakfast while lying down, then slept through lunch. Refused to go to day room to participate in group. She is currently sitting in w/c in her room. Will continue to monitor.
[2021-08-13 15:22] VITALS: BP 134/60
--- NOTE | 2021-08-13 16:02 | NUR ---
CHANA spoke with pt Анна LANG to provide update. Анна reported that she has spoken with Vanita at [facility] for possible admission. Анна reports that Vanita informed her that pt would need a Medicaid application filled out prior to consideration. Анна inquired if [facility] could assist with that process. CHANA agreeable to contact [facility] at [facility] with questions regarding situation. Анна agreeable to also consider [facility] for possible discharge facility until she can get other family business in place as they have a meeting scheduled with the family fish salter on 09/04/21. CHANA will follow up at a later time with Анна to see if she is agreeable to a referral being sent. CHANA then contacted [facility] and left a message for a return call to find out if this is an option and what information would be needed. SW awaiting call back from [facility].
--- NOTE | 2021-08-13 20:53 | PDOC ---
Exam Note: [place] Note: Please also refer to the separate dictated note~for this date of service dictated separately.~Patient seen individually. Discussed the patient with Nursing staff reviewed the chart.~Reviewed interim history and current functioning. Reviewed vital signs,~Labs/ Radiology~and current medications noted below. Continue current treatment with the changes noted in the dictated addendum note Assessment: Vital Signs/I&O: Vital Signs Date Time Temp Pulse Resp B/P (MAP) Pulse Ox O2 Delivery O2 Flow Rate FiO2 08/13/21 15:22 98.5 81 16 134/60 (84) 93 08/11/21 11:51 Room Air I & O 08/12/21 08/12/21 08/13/21 15:00 23:00 07:00 Intake Total 480 ml 360 ml Balance 480 ml 360 ml Labs: Laboratory Tests Test 08/13/21 07:22 08/13/21 11:50 08/13/21 19:15 Glucose (Fingerstick) 88 mg/dL (70-99) 147 mg/dL (70-99) H 127 mg/dL (70-99) H Current Medications: Meds: Laboratory Tests Test 08/13/21 07:22 08/13/21 11:50 08/13/21 19:15 Glucose (Fingerstick) 88 mg/dL 147 mg/dL 127 mg/dL Current Medications Medications (Trade) Dose Ordered Sig/Richard Route PRN Reason Start Time Stop Time Status Last Admin Dose Admin Influenza Virus Vaccine Quadrival (Flulaval Quad [id number] Syringe) 0.5 ml ONCE ONCE VAX IM 07/17/21 09:00 07/17/21 09:01 DC 07/17/21 10:00 Acetaminophen (Tylenol) 650 mg PRN Q6HRS PRN PO PAIN/FEVER 07/16/21 22:45 UNV Metformin HCl (Glucophage) 1,000 mg BIDWMEALS PO 07/17/21 08:00 08/13/21 17:23 Nystatin (Mycostatin) 1 sulma PRN BID PRN TP RASH 07/16/21 22:45 Quetiapine Fumarate (SEROquel) 50 mg BID PO 07/17/21 09:00 07/18/21 10:56 DC 07/18/21 08:21 Trazodone HCl (Desyrel) 50 mg QHS PO 07/17/21 21:00 08/12/21 19:49 Non-Formulary Medication (Albuterol Sulfate (Albuterol Sulfate Neb Soln)) 1 vial QID PRN NEB SHORTNESS OF AIR 07/16/21 22:45 UNV Non-Formulary Medication (Insulin Aspart (Insulin Aspart Flexpen)) 100 unit PRN AFTMEALHC PRN SQ ELEVATED BLOOD SUGAR 07/16/21 22:45 UNV Acetaminophen (Tylenol) 650 mg PRN Q6HRS PRN PO MILD PAIN / TEMP > 100.3'F 07/16/21 22:45 08/12/21 08:21 Multi-Ingredient Ointment (Analgesic [place]) 1 sulma PRN QID PRN TP MUSCLE PAIN 07/16/21 22:45 Al Hydroxide/Mg Hydroxide (Mylanta Plus Xs) 15 ml PRN AFTMEALHC PRN PO DYSPEPSIA 07/16/21 22:45 Magnesium Hydroxide (Milk Of Magnesia) 2,400 mg PRN QHS PRN PO CONSTIPATION 07/16/21 22:45 Albuterol Sulfate (Ventolin) 2.5 mg PRN Q6HRS PRN NEB SHORTNESS OF BREATH 07/16/21 23:00 07/17/21 06:25 DC Insulin Human Lispro (HumaLOG) 0-5 UNITS TIDWMEALS SQ 07/17/21 08:00 08/13/21 17:27 Dextrose (Dextrose 50%-Water Syringe) 12.5 gm PRN Q15MIN PRN IV SEE COMMENTS 07/17/21 00:15 Albuterol Sulfate (Ventolin Hfa Inhaler) 1 puff PRN Q6HRS PRN INH SHORTNESS OF BREATH 07/17/21 06:30 Risperidone (RisperDAL) 0.5 mg HS PO 07/18/21 21:00 07/21/21 19:40 DC 07/20/21 20:18 Olanzapine (ZyPREXA ZYDIS) 2.5 mg PRN Q2HR PRN PO PSYCHOSIS 07/18/21 18:15 08/12/21 22:33 Divalproex Sodium (Depakote Sprinkles) 125 mg BID@0900,1700 PO 07/21/21 09:00 07/25/21 01:54 DC 07/24/21 17:08 Risperidone (RisperDAL) 1 mg HS PO 07/21/21 21:00 07/29/21 18:23 DC 07/28/21 20:11 Trazodone HCl (Desyrel) 50 mg PRN QHS PRN PO INSOMNIA 07/21/21 19:45 08/12/21 22:33 Mirtazapine (Remeron) 7.5 mg QHS PO 07/21/21 21:00 07/22/21 19:52 DC 07/21/21 20:04 Mirtazapine (Remeron) 15 mg QHS PO 07/22/21 21:00 08/12/21 19:49 Melatonin (Melatonin) 3 mg QHS PO 07/22/21 21:00 07/23/21 20:00 DC 07/22/21 20:21 Melatonin (Melatonin) 4.5 mg QHS PO 07/23/21 21:00 08/12/21 19:49 Divalproex Sodium (Depakote Sprinkles) 250 mg BID@0900,1700 PO 07/25/21 09:00 07/28/21 19:57 DC 07/28/21 17:07 Nystatin (Nystop) 1 sulma BID TP 07/27/21 21:00 08/13/21 08:16 Divalproex Sodium (Depakote Sprinkles) 375 mg BID@0900,1700 PO 07/29/21 09:00 08/13/21 17:23 Risperidone (RisperDAL) 0.25 mg QHS PO 07/29/21 21:00 08/09/21 19:39 DC 08/08/21 20:35 Risperidone (RisperDAL) 1 mg QHS PO 07/29/21 21:00 08/12/21 19:49 Sertraline HCl (Zoloft) 25 mg DAILY PO 08/03/21 09:00 08/05/21 12:00 DC 08/05/21 08:32 Sertraline HCl (Zoloft) 50 mg DAILY PO 08/06/21 09:00 08/10/21 20:02 DC 08/10/21 08:48 Ascorbic Acid (Vitamin C) 500 mg BIDWMEALS PO 08/06/21 17:00 08/13/21 17:23 Ferrous Sulfate (Feosol) 325 mg BIDWMEALS PO 08/06/21 17:00 08/13/21 17:23 Risperidone (RisperDAL) 0.5 mg QHS PO 08/09/21 21:00 08/12/21 19:49 Sertraline HCl (Zoloft) 75 mg DAILY PO 08/11/21 09:00 08/13/21 09:01 DC 08/13/21 08:15 Buspirone HCl (Buspar) 5 mg BID@0900,1700 PO 08/11/21 09:00 08/13/21 17:27 Sertraline HCl (Zoloft) 100 mg DAILY PO 08/14/21 09:00 I have reviewed the current psychotropics carefully including drug interactions. Risk benefit ratio favors no change other than as noted in my dictated progress note. 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
[2021-08-13] MEDS: MELATONIN 3 MG TABLET PO SCH (21:17)
[2021-08-13] MEDS: MIRTAZAPINE 15 MG TABLET PO SCH (21:18)
[2021-08-13] MEDS: risperiDONE 1 MG TABLET. PO SCH (21:18)
[2021-08-13] MEDS: traZODone 50 MG TABLET. PO SCH (21:18)
[2021-08-13] MEDS: risperiDONE 0.5 MG TABLET. PO SCH (21:18)
--- NOTE | 2021-08-14 04:21 | NUR ---
Nursing Note The patient was located in her room for her assessment and medication pass. The patient took her medication crushed in pudding. The patient was calm and cooperative during cares. The patient was alert to name only. Currently sleeping in her room.
[2021-08-14 06:08] VITALS: BP 94/51
[2021-08-14] MEDS: INSULIN LISPRO 300 UNITS/3 ML VIAL. SQ SCH ×3 (07:46→17:00)
[2021-08-14] MEDS: metFORMIN 500 MG TABLET PO SCH ×2 (08:17→17:22)
[2021-08-14] MEDS: busPIRone 5 MG TABLET. PO SCH ×2 (08:17→17:22)
[2021-08-14] MEDS: DIVALPROEX 125 MG CAP.SPRINK PO SCH ×2 (08:17→17:22)
[2021-08-14] MEDS: SERTRALINE 25 MG TABLET. PO SCH (08:18)
[2021-08-14] MEDS: NYSTATIN TOPICAL POWDER 15GM BOTTLE. TP SCH ×2 (09:00→20:08)
--- NOTE | 2021-08-14 09:54 | PDOC ---
Exam Note: [place] Note: This note is a late entry for 08/12/2021 covers elements not covered in my initial note. Subjective: The patient was seen individually in the evening of 08/12/2021 with Nahomi TANG, discussed and reviewed the chart. The patient slept 7 hours previous night. She has been anxious previous evening. Received p.r.n.s. several times. UA has reflex to culture and the UTI could be worsening her agitation. I met with her in her room. Review of Systems: Ambulation impaired, in wheelchair. No CV, , pulmonary, eye, ENT system symptoms on review. Mental Status Exam: The patient is oriented to herself. She is anxious, restless. Insight and judgment, recent and remote memory, attention and concentration, fund of knowledge is poor consistent with her diagnosis. Laboratory Data: Reviewed. Impression: Major neurocognitive disorder Alzheimer, vascular, with delusions, depression, behavioral disturbance. Anxiety disorder unspecified. Impulse control disorder unspecified. Plan: If the patient has UTI, we will treat it. I think resolution of UTI will help her agitation. Continue rest of the psychotropics unchanged from initial note. Assessment: Vital Signs/I&O: Vital Signs Date Time Temp Pulse Resp B/P (MAP) Pulse Ox O2 Delivery O2 Flow Rate FiO2 08/14/21 06:08 97.6 66 20 94/51 (65) 91 08/11/21 11:51 Room Air I & O 08/13/21 08/13/21 08/14/21 15:00 23:00 07:00 Intake Total 240 ml 480 ml Balance 240 ml 480 ml Labs: Laboratory Tests Test 08/13/21 11:50 08/13/21 19:15 08/14/21 07:45 Glucose (Fingerstick) 147 mg/dL (70-99) H 127 mg/dL (70-99) H 102 mg/dL (70-99) H Current Medications: Meds: Laboratory Tests Test 08/13/21 11:50 08/13/21 19:15 08/14/21 07:45 Glucose (Fingerstick) 147 mg/dL 127 mg/dL 102 mg/dL Current Medications Medications (Trade) Dose Ordered Sig/Richard Route PRN Reason Start Time Stop Time Status Last Admin Dose Admin Influenza Virus Vaccine Quadrival (Flulaval Quad Syringe) 0.5 ml ONCE ONCE VAX IM 07/17/21 09:00 07/17/21 09:01 DC 07/17/21 10:00 Acetaminophen (Tylenol) 650 mg PRN Q6HRS PRN PO PAIN/FEVER 07/16/21 22:45 UNV Metformin HCl (Glucophage) 1,000 mg BIDWMEALS PO 07/17/21 08:00 08/14/21 08:17 Nystatin (Mycostatin) 1 sulma PRN BID PRN TP RASH 07/16/21 22:45 Quetiapine Fumarate (SEROquel) 50 mg BID PO 07/17/21 09:00 07/18/21 10:56 DC 07/18/21 08:21 Trazodone HCl (Desyrel) 50 mg QHS PO 07/17/21 21:00 08/13/21 21:18 Non-Formulary Medication (Albuterol Sulfate (Albuterol Sulfate Neb Soln)) 1 vial QID PRN NEB SHORTNESS OF AIR 07/16/21 22:45 UNV Non-Formulary Medication (Insulin Aspart (Insulin Aspart Flexpen)) 100 unit PRN AFTMEALHC PRN SQ ELEVATED BLOOD SUGAR 07/16/21 22:45 UNV Acetaminophen (Tylenol) 650 mg PRN Q6HRS PRN PO MILD PAIN / TEMP > 100.3'F 07/16/21 22:45 08/12/21 08:21 Multi-Ingredient Ointment (Analgesic [place]) 1 sulma PRN QID PRN TP MUSCLE PAIN 07/16/21 22:45 Al Hydroxide/Mg Hydroxide (Mylanta Plus Xs) 15 ml PRN AFTMEALHC PRN PO DYSPEPSIA 07/16/21 22:45 Magnesium Hydroxide (Milk Of Magnesia) 2,400 mg PRN QHS PRN PO CONSTIPATION 07/16/21 22:45 Albuterol Sulfate (Ventolin) 2.5 mg PRN Q6HRS PRN NEB SHORTNESS OF BREATH 07/16/21 23:00 07/17/21 06:25 DC Insulin Human Lispro (HumaLOG) 0-5 UNITS TIDWMEALS SQ 07/17/21 08:00 08/13/21 17:27 Dextrose (Dextrose 50%-Water Syringe) 12.5 gm PRN Q15MIN PRN IV SEE COMMENTS 07/17/21 00:15 Albuterol Sulfate (Ventolin Hfa Inhaler) 1 puff PRN Q6HRS PRN INH SHORTNESS OF BREATH 07/17/21 06:30 Risperidone (RisperDAL) 0.5 mg HS PO 07/18/21 21:00 07/21/21 19:40 DC 07/20/21 20:18 Olanzapine (ZyPREXA ZYDIS) 2.5 mg PRN Q2HR PRN PO PSYCHOSIS 07/18/21 18:15 08/12/21 22:33 Divalproex Sodium (Depakote Sprinkles) 125 mg BID@0900,1700 PO 07/21/21 09:00 07/25/21 01:54 DC 07/24/21 17:08 Risperidone (RisperDAL) 1 mg HS PO 07/21/21 21:00 07/29/21 18:23 DC 07/28/21 20:11 Trazodone HCl (Desyrel) 50 mg PRN QHS PRN PO INSOMNIA 07/21/21 19:45 08/12/21 22:33 Mirtazapine (Remeron) 7.5 mg QHS PO 07/21/21 21:00 07/22/21 19:52 DC 07/21/21 20:04 Mirtazapine (Remeron) 15 mg QHS PO 07/22/21 21:00 08/13/21 21:18 Melatonin (Melatonin) 3 mg QHS PO 07/22/21 21:00 07/23/21 20:00 DC 07/22/21 20:21 Melatonin (Melatonin) 4.5 mg QHS PO 07/23/21 21:00 08/13/21 21:17 Divalproex Sodium (Depakote Sprinkles) 250 mg BID@0900,1700 PO 07/25/21 09:00 07/28/21 19:57 DC 07/28/21 17:07 Nystatin (Nystop) 1 sulma BID TP 07/27/21 21:00 08/13/21 21:19 Divalproex Sodium (Depakote Sprinkles) 375 mg BID@0900,1700 PO 07/29/21 09:00 08/14/21 08:17 Risperidone (RisperDAL) 0.25 mg QHS PO 07/29/21 21:00 12/3/21 19:39 DC 08/08/21 20:35 Risperidone (RisperDAL) 1 mg QHS PO 07/29/21 21:00 08/13/21 21:18 Sertraline HCl (Zoloft) 25 mg DAILY PO 08/03/21 09:00 08/05/21 12:00 DC 08/05/21 08:32 Sertraline HCl (Zoloft) 50 mg DAILY PO 08/06/21 09:00 08/10/21 20:02 DC 08/10/21 08:48 Ascorbic Acid (Vitamin C) 500 mg BIDWMEALS PO 08/06/21 17:00 08/13/21 17:23 Ferrous Sulfate (Feosol) 325 mg BIDWMEALS PO 08/06/21 17:00 08/13/21 17:23 Risperidone (RisperDAL) 0.5 mg QHS PO 08/09/21 21:00 08/13/21 21:18 Sertraline HCl (Zoloft) 75 mg DAILY PO 08/11/21 09:00 08/13/21 09:01 DC 08/13/21 08:15 Buspirone HCl (Buspar) 5 mg BID@0900,1700 PO 08/11/21 09:00 08/14/21 08:17 Sertraline HCl (Zoloft) 100 mg DAILY PO 08/14/21 09:00 08/14/21 08:18 Current Medications Medications (Trade) Dose Ordered Sig/Richard Route PRN Reason Start Time Stop Time Status Last Admin Dose Admin Sertraline HCl (Zoloft) 100 mg DAILY PO 08/14/21 09:00 08/14/21 08:18 I have reviewed the current psychotropics carefully including drug interactions. Risk benefit ratio favors no change other than as noted in my dictated progress note. Diagnosis: Problems: (1) Impulse control disorder, unspecified (2) Anxiety disorder, unspecified (3) Dementia, vascular, with depression (4) Dementia, vascular, with delusions (5) Dementia in Alzheimer's disease with depression (6) Dementia in Alzheimer's disease with delusions (7) Dementia of the Alzheimer's type with early onset with behavioral disturbance (8) Major neurocognitive disorder SOO BAIRES MD Aug 14, 2021 09:54
--- NOTE | 2021-08-14 10:03 | NUR ---
Pt confused, disorganized, delusional. She began the morning talking to self and/or possible VH/AH. She also had intermittent periods of yelling out. She did not eat much of her breakfast, talking about being able to "pay for it." At one point she poured her orange juice and milk on her breakfast items as if they were condiments. She is compliant with medications crushed and mixed into pudding. Occasional non productive cough can be heard and her voice has a wet sounding quality to it. O2 sats have remained >91% RA, which appears to be her baseline since admission. Lung sounds diminished to auscultation, she denies difficulty breathing when asked. She is absent of self harm behaviors and denies pain when asked. Plan of care continues, will pass to next shift.
--- NOTE | 2021-08-14 10:07 | PDOC ---
Exam Note: [place] Note: This note is a late entry for 08/13/2021 covers elements not covered in my initial note. Subjective: The patient was seen individually in the evening of 08/13/2021 with Joni TANG, discussed and reviewed the chart. The patient did not sleep at all previous night. She was hyperverbal. No p.r.n.s., given. She has a wet cough. We will defer to Dr. Díaz. Blood sugar is increased. Insulin has been adjusted. I met with her in her room. She continues to have marked insomnia despite Remeron, melatonin, trazodone that she gets at night. We will add another 3 mg of melatonin to 4.5 mg scheduled dosage and see how she does. The UTI certainly could be worsening her insomnia and we are waiting for this culture & sensitivity report to return before treating it. Review of Systems: Ambulation impaired, in wheelchair. No CV, , pulmonary, eye, ENT system symptoms on review. Mental Status Exam: The patient is oriented to herself. Insight and judgment, recent and remote memory, attention and concentration, fund of knowledge is poor consistent with her diagnosis. Laboratory Data: Reviewed. Impression: Major neurocognitive disorder Alzheimer, vascular, with delusions, depression, behavioral disturbance. Anxiety disorder unspecified. Impulse control disorder unspecified. Plan: No change from initial note. Assessment: Vital Signs/I&O: Vital Signs Date Time Temp Pulse Resp B/P (MAP) Pulse Ox O2 Delivery O2 Flow Rate FiO2 08/14/21 06:08 97.6 66 20 94/51 (65) 91 08/11/21 11:51 Room Air I & O 08/13/21 08/13/21 08/14/21 15:00 23:00 07:00 Intake Total 240 ml 480 ml Balance 240 ml 480 ml Labs: Laboratory Tests Test 08/13/21 11:50 08/13/21 19:15 08/14/21 07:45 Glucose (Fingerstick) 147 mg/dL (70-99) H 127 mg/dL (70-99) H 102 mg/dL (70-99) H Current Medications: Meds: Laboratory Tests Test 08/13/21 11:50 08/13/21 19:15 08/14/21 07:45 Glucose (Fingerstick) 147 mg/dL 127 mg/dL 102 mg/dL Current Medications Medications (Trade) Dose Ordered Sig/Richard Route PRN Reason Start Time Stop Time Status Last Admin Dose Admin Influenza Virus Vaccine Quadrival (Flulaval Quad Syringe) 0.5 ml ONCE ONCE VAX IM 07/17/21 09:00 07/17/21 09:01 DC 07/17/21 10:00 Acetaminophen (Tylenol) 650 mg PRN Q6HRS PRN PO PAIN/FEVER 07/16/21 22:45 UNV Metformin HCl (Glucophage) 1,000 mg BIDWMEALS PO 07/17/21 08:00 08/14/21 08:17 Nystatin (Mycostatin) 1 sulma PRN BID PRN TP RASH 07/16/21 22:45 Quetiapine Fumarate (SEROquel) 50 mg BID PO 07/17/21 09:00 07/18/21 10:56 DC 07/18/21 08:21 Trazodone HCl (Desyrel) 50 mg QHS PO 07/17/21 21:00 08/13/21 21:18 Non-Formulary Medication (Albuterol Sulfate (Albuterol Sulfate Neb Soln)) 1 vial QID PRN NEB SHORTNESS OF AIR 07/16/21 22:45 UNV Non-Formulary Medication (Insulin Aspart (Insulin Aspart Flexpen)) 100 unit PRN AFTMEALHC PRN SQ ELEVATED BLOOD SUGAR 07/16/21 22:45 UNV Acetaminophen (Tylenol) 650 mg PRN Q6HRS PRN PO MILD PAIN / TEMP > 100.3'F 07/16/21 22:45 08/12/21 08:21 Multi-Ingredient Ointment (Analgesic [place]) 1 sulma PRN QID PRN TP MUSCLE PAIN 07/16/21 22:45 Al Hydroxide/Mg Hydroxide (Mylanta Plus Xs) 15 ml PRN AFTMEALHC PRN PO DYSPEPSIA 07/16/21 22:45 Magnesium Hydroxide (Milk Of Magnesia) 2,400 mg PRN QHS PRN PO CONSTIPATION 07/16/21 22:45 Albuterol Sulfate (Ventolin) 2.5 mg PRN Q6HRS PRN NEB SHORTNESS OF BREATH 07/16/21 23:00 07/17/21 06:25 DC Insulin Human Lispro (HumaLOG) 0-5 UNITS TIDWMEALS SQ 07/17/21 08:00 08/13/21 17:27 Dextrose (Dextrose 50%-Water Syringe) 12.5 gm PRN Q15MIN PRN IV SEE COMMENTS 07/17/21 00:15 Albuterol Sulfate (Ventolin Hfa Inhaler) 1 puff PRN Q6HRS PRN INH SHORTNESS OF BREATH 07/17/21 06:30 Risperidone (RisperDAL) 0.5 mg HS PO 07/18/21 21:00 07/21/21 19:40 DC 07/20/21 20:18 Olanzapine (ZyPREXA ZYDIS) 2.5 mg PRN Q2HR PRN PO PSYCHOSIS 07/18/21 18:15 08/12/21 22:33 Divalproex Sodium (Depakote Sprinkles) 125 mg BID@0900,1700 PO 07/21/21 09:00 07/25/21 01:54 DC 07/24/21 17:08 Risperidone (RisperDAL) 1 mg HS PO 07/21/21 21:00 07/29/21 18:23 DC 07/28/21 20:11 Trazodone HCl (Desyrel) 50 mg PRN QHS PRN PO INSOMNIA 07/21/21 19:45 08/12/21 22:33 Mirtazapine (Remeron) 7.5 mg QHS PO 07/21/21 21:00 07/22/21 19:52 DC 07/21/21 20:04 Mirtazapine (Remeron) 15 mg QHS PO 07/22/21 21:00 08/13/21 21:18 Melatonin (Melatonin) 3 mg QHS PO 07/22/21 21:00 07/23/21 20:00 DC 07/22/21 20:21 Melatonin (Melatonin) 4.5 mg QHS PO 07/23/21 21:00 08/13/21 21:17 Divalproex Sodium (Depakote Sprinkles) 250 mg BID@0900,1700 PO 07/25/21 09:00 07/28/21 19:57 DC 07/28/21 17:07 Nystatin (Nystop) 1 sulma BID TP 07/27/21 21:00 08/13/21 21:19 Divalproex Sodium (Depakote Sprinkles) 375 mg BID@0900,1700 PO 07/29/21 09:00 08/14/21 08:17 Risperidone (RisperDAL) 0.25 mg QHS PO 07/29/21 21:00 08/09/21 19:39 DC 08/08/21 20:35 Risperidone (RisperDAL) 1 mg QHS PO 07/29/21 21:00 08/13/21 21:18 Sertraline HCl (Zoloft) 25 mg DAILY PO 08/03/21 09:00 08/05/21 12:00 DC 08/05/21 08:32 Sertraline HCl (Zoloft) 50 mg DAILY PO 08/06/21 09:00 08/10/21 20:02 DC 08/10/21 08:48 Ascorbic Acid (Vitamin C) 500 mg BIDWMEALS PO 08/06/21 17:00 08/13/21 17:23 Ferrous Sulfate (Feosol) 325 mg BIDWMEALS PO 08/06/21 17:00 08/13/21 17:23 Risperidone (RisperDAL) 0.5 mg QHS PO 08/09/21 21:00 08/13/21 21:18 Sertraline HCl (Zoloft) 75 mg DAILY PO 08/11/21 09:00 08/13/21 09:01 DC 08/13/21 08:15 Buspirone HCl (Buspar) 5 mg BID@0900,1700 PO 08/11/21 09:00 08/14/21 08:17 Sertraline HCl (Zoloft) 100 mg DAILY PO 08/14/21 09:00 08/14/21 08:18 Current Medications Medications (Trade) Dose Ordered Sig/Richard Route PRN Reason Start Time Stop Time Status Last Admin Dose Admin Sertraline HCl (Zoloft) 100 mg DAILY PO 08/14/21 09:00 08/14/21 08:18 I have reviewed the current psychotropics carefully including drug interactions. Risk benefit ratio favors no change other than as noted in my dictated progress note. Diagnosis: Problems: (1) Impulse control disorder, unspecified (2) Anxiety disorder, unspecified (3) Dementia, vascular, with depression (4) Dementia, vascular, with delusions (5) Dementia in Alzheimer's disease with depression (6) Dementia in Alzheimer's disease with delusions (7) Dementia of the Alzheimer's type with early onset with behavioral disturbance (8) Major neurocognitive disorder SOO BAIRES MD Aug 14, 2021 10:07
[2021-08-14] MEDS: ASCORBIC ACID 500 MG TABLET PO SCH ×2 (12:11→17:22)
[2021-08-14] MEDS: FERROUS SULFATE 325 MG TABLET. PO SCH ×2 (12:11→17:22)
[2021-08-14 15:12] VITALS: BP 126/65
[2021-08-14] MEDS ORDERED: busPIRone 5 MG TABLET. PO SCH (17:45)
[2021-08-14] MEDS: traZODone 50 MG TABLET. PO SCH (20:07)
[2021-08-14] MEDS: risperiDONE 0.5 MG TABLET. PO SCH (20:07)
[2021-08-14] MEDS: MELATONIN 3 MG TABLET PO SCH (20:07)
[2021-08-14] MEDS: MIRTAZAPINE 15 MG TABLET PO SCH (20:07)
[2021-08-14] MEDS: risperiDONE 1 MG TABLET. PO SCH (20:08)
--- NOTE | 2021-08-14 20:20 | PDOC ---
Exam Note: [place] Note: Please also refer to the separate dictated note~for this date of service dictated separately.~Patient seen individually. Discussed the patient with Nursing staff reviewed the chart.~Reviewed interim history and current functioning. Reviewed vital signs,~Labs/ Radiology~and current medications noted below. Continue current treatment with the changes noted in the dictated addendum note Assessment: Vital Signs/I&O: Vital Signs Date Time Temp Pulse Resp B/P (MAP) Pulse Ox O2 Delivery O2 Flow Rate FiO2 08/14/21 15:12 97.9 84 16 126/65 (85) 95 08/11/21 11:51 Room Air I & O 08/13/21 08/13/21 08/14/21 15:00 23:00 07:00 Intake Total 240 ml 480 ml Balance 240 ml 480 ml Labs: Laboratory Tests Test 08/14/21 07:45 08/14/21 11:45 08/14/21 17:25 08/14/21 19:04 Glucose (Fingerstick) 102 mg/dL (70-99) H 126 mg/dL (70-99) H 111 mg/dL (70-99) H 139 mg/dL (70-99) H Current Medications: Meds: Laboratory Tests Test 08/14/21 07:45 08/14/21 11:45 08/14/21 17:25 08/14/21 19:04 Glucose (Fingerstick) 102 mg/dL 126 mg/dL 111 mg/dL 139 mg/dL Current Medications Medications (Trade) Dose Ordered Sig/Richard Route PRN Reason Start Time Stop Time Status Last Admin Dose Admin Influenza Virus Vaccine Quadrival (Flulaval Quad Syringe) 0.5 ml ONCE ONCE VAX IM 07/17/21 09:00 07/17/21 09:01 DC 07/17/21 10:00 Acetaminophen (Tylenol) 650 mg PRN Q6HRS PRN PO PAIN/FEVER 07/16/21 22:45 UNV Metformin HCl (Glucophage) 1,000 mg BIDWMEALS PO 07/17/21 08:00 08/14/21 17:22 Nystatin (Mycostatin) 1 sulma PRN BID PRN TP RASH 07/16/21 22:45 Quetiapine Fumarate (SEROquel) 50 mg BID PO 07/17/21 09:00 07/18/21 10:56 DC 07/18/21 08:21 Trazodone HCl (Desyrel) 50 mg QHS PO 07/17/21 21:00 08/14/21 20:07 Non-Formulary Medication (Albuterol Sulfate (Albuterol Sulfate Neb Soln)) 1 vial QID PRN NEB SHORTNESS OF AIR 07/16/21 22:45 UNV Non-Formulary Medication (Insulin Aspart (Insulin Aspart Flexpen)) 100 unit PRN AFTMEALHC PRN SQ ELEVATED BLOOD SUGAR 07/16/21 22:45 UNV Acetaminophen (Tylenol) 650 mg PRN Q6HRS PRN PO MILD PAIN / TEMP > 100.3'F 07/16/21 22:45 08/12/21 08:21 Multi-Ingredient Ointment (Analgesic [place]) 1 sulma PRN QID PRN TP MUSCLE PAIN 07/16/21 22:45 Al Hydroxide/Mg Hydroxide (Mylanta Plus Xs) 15 ml PRN AFTMEALHC PRN PO DYSPEPSIA 07/16/21 22:45 Magnesium Hydroxide (Milk Of Magnesia) 2,400 mg PRN QHS PRN PO CONSTIPATION 07/16/21 22:45 Albuterol Sulfate (Ventolin) 2.5 mg PRN Q6HRS PRN NEB SHORTNESS OF BREATH 07/16/21 23:00 07/17/21 06:25 DC Insulin Human Lispro (HumaLOG) 0-5 UNITS TIDWMEALS SQ 07/17/21 08:00 08/13/21 17:27 Dextrose (Dextrose 50%-Water Syringe) 12.5 gm PRN Q15MIN PRN IV SEE COMMENTS 07/17/21 00:15 Albuterol Sulfate (Ventolin Hfa Inhaler) 1 puff PRN Q6HRS PRN INH SHORTNESS OF BREATH 07/17/21 06:30 Risperidone (RisperDAL) 0.5 mg HS PO 07/18/21 21:00 07/21/21 19:40 DC 07/20/21 20:18 Olanzapine (ZyPREXA ZYDIS) 2.5 mg PRN Q2HR PRN PO PSYCHOSIS 07/18/21 18:15 08/12/21 22:33 Divalproex Sodium (Depakote Sprinkles) 125 mg BID@0900,1700 PO 07/21/21 09:00 07/25/21 01:54 DC 07/24/21 17:08 Risperidone (RisperDAL) 1 mg HS PO 07/21/21 21:00 07/29/21 18:23 DC 07/28/21 20:11 Trazodone HCl (Desyrel) 50 mg PRN QHS PRN PO INSOMNIA 07/21/21 19:45 08/12/21 22:33 Mirtazapine (Remeron) 7.5 mg QHS PO 07/21/21 21:00 07/22/21 19:52 DC 07/21/21 20:04 Mirtazapine (Remeron) 15 mg QHS PO 07/22/21 21:00 08/14/21 20:07 Melatonin (Melatonin) 3 mg QHS PO 07/22/21 21:00 07/23/21 20:00 DC 07/22/21 20:21 Melatonin (Melatonin) 4.5 mg QHS PO 07/23/21 21:00 08/14/21 20:07 Divalproex Sodium (Depakote Sprinkles) 250 mg BID@0900,1700 PO 07/25/21 09:00 07/28/21 19:57 DC 07/28/21 17:07 Nystatin (Nystop) 1 sulma BID TP 07/27/21 21:00 08/14/21 20:08 Divalproex Sodium (Depakote Sprinkles) 375 mg BID@0900,1700 PO 07/29/21 09:00 08/14/21 17:22 Risperidone (RisperDAL) 0.25 mg QHS PO 07/29/21 21:00 08/09/21 19:39 DC 08/08/21 20:35 Risperidone (RisperDAL) 1 mg QHS PO 07/29/21 21:00 08/14/21 20:08 Sertraline HCl (Zoloft) 25 mg DAILY PO 08/03/21 09:00 08/05/21 12:00 DC 08/05/21 08:32 Sertraline HCl (Zoloft) 50 mg DAILY PO 08/06/21 09:00 08/10/21 20:02 DC 08/10/21 08:48 Ascorbic Acid (Vitamin C) 500 mg BIDWMEALS PO 08/06/21 17:00 08/14/21 17:22 Ferrous Sulfate (Feosol) 325 mg BIDWMEALS PO 08/06/21 17:00 08/14/21 17:22 Risperidone (RisperDAL) 0.5 mg QHS PO 08/09/21 21:00 08/14/21 20:07 Sertraline HCl (Zoloft) 75 mg DAILY PO 08/11/21 09:00 08/13/21 09:01 DC 08/13/21 08:15 Buspirone HCl (Buspar) 5 mg BID@0900,1700 PO 08/11/21 09:00 08/14/21 17:40 DC 08/14/21 17:22 Sertraline HCl (Zoloft) 100 mg DAILY PO 08/14/21 09:00 08/14/21 08:18 Buspirone HCl (Buspar) 10 mg BID@0900,1700 PO 08/14/21 17:45 08/14/21 17:56 DC Buspirone HCl (Buspar) 10 mg BID@0900,1700 PO 08/15/21 09:00 Current Medications Medications (Trade) Dose Ordered Sig/Richard Route PRN Reason Start Time Stop Time Status Last Admin Dose Admin Sertraline HCl (Zoloft) 100 mg DAILY PO 08/14/21 09:00 08/14/21 08:18 I have reviewed the current psychotropics carefully including drug interactions. Risk benefit ratio favors no change other than as noted in my dictated progress note. Diagnosis: Problems: (1) Impulse control disorder, unspecified (2) Anxiety disorder, unspecified (3) Dementia, vascular, with depression (4) Dementia, vascular, with delusions (5) Dementia in Alzheimer's disease with depression (6) Dementia in Alzheimer's disease with delusions (7) Dementia of the Alzheimer's type with early onset with behavioral disturbance (8) Major neurocognitive disorder SOO BAIRES MD Aug 14, 2021 20:20
--- NOTE | 2021-08-15 01:31 | NUR ---
Nursing Note The patient was located in her room for her assessment and medication pass. The patient was disorganized and anxious this shift. The patient took her medication crushed in pudding. The patients O2 was checked late in the night and was found to be in the mid to low 80s. The patient was given supplemental oxygen @2l. Oxygen was at 90 at last check. The patient is currently sleeping in her room.
[2021-08-15 06:14] VITALS: BP 115/63
--- NOTE | 2021-08-15 07:10 | PDOC ---
Exam Note: [place] Note: This note is a late entry for 08/14/2021 covers elements not covered in my initial note. Subjective: The patient was seen individually in the evening of 08/14/2021 with Miriam TANG, discussed and reviewed the chart. The patient slept 6 hours previous night. She remains confused, has been quite delusional, spending much time in her room, talking to herself and as I stood outside her room she was doing this once again, quite animatedly talking and then answering questions. She seems hyperverbal. She takes her medications crushed and gets extremely agitated, screaming when assisted with her activities of daily living. She sometimes takes her meds crushed in pudding. Review of Systems: Ambulation impaired, in wheelchair. No CV, , pulmonary, eye, ENT system symptoms on review. She has vague somatic symptoms. Reliability poor. Mental Status Exam: The patient is oriented to herself. Insight and judgment, recent and remote memory, attention and concentration, fund of knowledge is poor consistent with her diagnosis. Laboratory Data: Reviewed. Impression: Major neurocognitive disorder Alzheimer, vascular, with delusions, depression, behavioral disturbance. Anxiety disorder unspecified. Impulse control disorder unspecified. Plan: Continue current psychotropics. Increase BuSpar from 5 mg b.i.d. to 10 mg b.i.d. Maintain rest of the psychotropics unchanged. Assessment: Vital Signs/I&O: Vital Signs Date Time Temp Pulse Resp B/P (MAP) Pulse Ox O2 Delivery O2 Flow Rate FiO2 08/15/21 06:14 98.7 89 22 115/63 (80) 95 08/11/21 11:51 Room Air I & O 08/14/21 08/14/21 08/15/21 15:00 23:00 07:00 Intake Total 360 ml 360 ml Balance 360 ml 360 ml Labs: Laboratory Tests Test 08/14/21 07:45 08/14/21 11:45 08/14/21 17:25 08/14/21 19:04 Glucose (Fingerstick) 102 mg/dL (70-99) H 126 mg/dL (70-99) H 111 mg/dL (70-99) H 139 mg/dL (70-99) H Current Medications: Meds: Laboratory Tests Test 08/14/21 07:45 08/14/21 11:45 08/14/21 17:25 08/14/21 19:04 Glucose (Fingerstick) 102 mg/dL 126 mg/dL 111 mg/dL 139 mg/dL Current Medications Medications (Trade) Dose Ordered Sig/Richard Route PRN Reason Start Time Stop Time Status Last Admin Dose Admin Influenza Virus Vaccine Quadrival (Flulaval Quad Syringe) 0.5 ml ONCE ONCE VAX IM 07/17/21 09:00 07/17/21 09:01 DC 07/17/21 10:00 Acetaminophen (Tylenol) 650 mg PRN Q6HRS PRN PO PAIN/FEVER 07/16/21 22:45 UNV Metformin HCl (Glucophage) 1,000 mg BIDWMEALS PO 07/17/21 08:00 08/14/21 17:22 Nystatin (Mycostatin) 1 sulma PRN BID PRN TP RASH 07/16/21 22:45 Quetiapine Fumarate (SEROquel) 50 mg BID PO 07/17/21 09:00 07/18/21 10:56 DC 07/18/21 08:21 Trazodone HCl (Desyrel) 50 mg QHS PO 07/17/21 21:00 08/14/21 20:07 Non-Formulary Medication (Albuterol Sulfate (Albuterol Sulfate Neb Soln)) 1 vial QID PRN NEB SHORTNESS OF AIR 07/16/21 22:45 UNV Non-Formulary Medication (Insulin Aspart (Insulin Aspart Flexpen)) 100 unit PRN AFTMEALHC PRN SQ ELEVATED BLOOD SUGAR 07/16/21 22:45 UNV Acetaminophen (Tylenol) 650 mg PRN Q6HRS PRN PO MILD PAIN / TEMP > 100.3'F 07/16/21 22:45 08/12/21 08:21 Multi-Ingredient Ointment (Analgesic [place]) 1 sulma PRN QID PRN TP MUSCLE PAIN 07/16/21 22:45 Al Hydroxide/Mg Hydroxide (Mylanta Plus Xs) 15 ml PRN AFTMEALHC PRN PO DYSPEPSIA 07/16/21 22:45 Magnesium Hydroxide (Milk Of Magnesia) 2,400 mg PRN QHS PRN PO CONSTIPATION 07/16/21 22:45 Albuterol Sulfate (Ventolin) 2.5 mg PRN Q6HRS PRN NEB SHORTNESS OF BREATH 07/16/21 23:00 07/17/21 06:25 DC Insulin Human Lispro (HumaLOG) 0-5 UNITS TIDWMEALS SQ 07/17/21 08:00 08/13/21 17:27 Dextrose (Dextrose 50%-Water Syringe) 12.5 gm PRN Q15MIN PRN IV SEE COMMENTS 07/17/21 00:15 Albuterol Sulfate (Ventolin Hfa Inhaler) 1 puff PRN Q6HRS PRN INH SHORTNESS OF BREATH 07/17/21 06:30 Risperidone (RisperDAL) 0.5 mg HS PO 07/18/21 21:00 07/21/21 19:40 DC 07/20/21 20:18 Olanzapine (ZyPREXA ZYDIS) 2.5 mg PRN Q2HR PRN PO PSYCHOSIS 07/18/21 18:15 08/12/21 22:33 Divalproex Sodium (Depakote Sprinkles) 125 mg BID@0900,1700 PO 07/21/21 09:00 07/25/21 01:54 DC 07/24/21 17:08 Risperidone (RisperDAL) 1 mg HS PO 07/21/21 21:00 07/29/21 18:23 DC 07/28/21 20:11 Trazodone HCl (Desyrel) 50 mg PRN QHS PRN PO INSOMNIA 07/21/21 19:45 08/12/21 22:33 Mirtazapine (Remeron) 7.5 mg QHS PO 07/21/21 21:00 07/22/21 19:52 DC 07/21/21 20:04 Mirtazapine (Remeron) 15 mg QHS PO 07/22/21 21:00 08/14/21 20:07 Melatonin (Melatonin) 3 mg QHS PO 07/22/21 21:00 07/23/21 20:00 DC 07/22/21 20:21 Melatonin (Melatonin) 4.5 mg QHS PO 07/23/21 21:00 08/14/21 20:07 Divalproex Sodium (Depakote Sprinkles) 250 mg BID@0900,1700 PO 07/25/21 09:00 07/28/21 19:57 DC 07/28/21 17:07 Nystatin (Nystop) 1 sulma BID TP 07/27/21 21:00 08/14/21 20:08 Divalproex Sodium (Depakote Sprinkles) 375 mg BID@0900,1700 PO 07/29/21 09:00 08/14/21 17:22 Risperidone (RisperDAL) 0.25 mg QHS PO 07/29/21 21:00 08/09/21 19:39 DC 08/08/21 20:35 Risperidone (RisperDAL) 1 mg QHS PO 07/29/21 21:00 08/14/21 20:08 Sertraline HCl (Zoloft) 25 mg DAILY PO 08/03/21 09:00 08/05/21 12:00 DC 08/05/21 08:32 Sertraline HCl (Zoloft) 50 mg DAILY PO 08/06/21 09:00 08/10/21 20:02 DC 08/10/21 08:48 Ascorbic Acid (Vitamin C) 500 mg BIDWMEALS PO 08/06/21 17:00 08/14/21 17:22 Ferrous Sulfate (Feosol) 325 mg BIDWMEALS PO 08/06/21 17:00 08/14/21 17:22 Risperidone (RisperDAL) 0.5 mg QHS PO 08/09/21 21:00 08/14/21 20:07 Sertraline HCl (Zoloft) 75 mg DAILY PO 08/11/21 09:00 08/13/21 09:01 DC 08/13/21 08:15 Buspirone HCl (Buspar) 5 mg BID@0900,1700 PO 08/11/21 09:00 08/14/21 17:40 DC 08/14/21 17:22 Sertraline HCl (Zoloft) 100 mg DAILY PO 08/14/21 09:00 08/14/21 08:18 Buspirone HCl (Buspar) 10 mg BID@0900,1700 PO 08/14/21 17:45 08/14/21 17:56 DC Buspirone HCl (Buspar) 10 mg BID@0900,1700 PO 08/15/21 09:00 Current Medications Medications (Trade) Dose Ordered Sig/Richard Route PRN Reason Start Time Stop Time Status Last Admin Dose Admin Sertraline HCl (Zoloft) 100 mg DAILY PO 08/14/21 09:00 08/14/21 08:18 I have reviewed the current psychotropics carefully including drug interactions. Risk benefit ratio favors no change other than as noted in my dictated progress note. Diagnosis: Problems: (1) Impulse control disorder, unspecified (2) Anxiety disorder, unspecified (3) Dementia, vascular, with depression (4) Dementia, vascular, with delusions (5) Dementia in Alzheimer's disease with depression (6) Dementia in Alzheimer's disease with delusions (7) Dementia of the Alzheimer's type with early onset with behavioral disturbance (8) Major neurocognitive disorder SOO BAIRES MD Aug 15, 2021 07:10
[2021-08-15] MEDS: FERROUS SULFATE 325 MG TABLET. PO SCH ×3 (08:00→17:32)
[2021-08-15] MEDS: ASCORBIC ACID 500 MG TABLET PO SCH ×3 (08:00→17:32)
[2021-08-15] MEDS: metFORMIN 500 MG TABLET PO SCH ×3 (08:00→17:32)
[2021-08-15] MEDS: INSULIN LISPRO 300 UNITS/3 ML VIAL. SQ SCH ×3 (08:00→17:00)
[2021-08-15] MEDS: DIVALPROEX 125 MG CAP.SPRINK PO SCH ×2 (08:37→17:32)
[2021-08-15] MEDS: NYSTATIN TOPICAL POWDER 15GM BOTTLE. TP SCH ×2 (08:38→20:24)
[2021-08-15] MEDS: busPIRone 10 MG TABLET. PO SCH ×2 (08:38→17:31)
[2021-08-15] MEDS: SERTRALINE 25 MG TABLET. PO SCH (08:38)
--- NOTE | 2021-08-15 11:06 | NUR ---
WEEKLY ACTIVITY THERAPY NOTE Date of Admission:07/16/21 Date of AT Assessment: 07/18 Precipitating behaviors that initiated intake and admission: Pt hallucinating, irritable calling out angry, confused, Delusions, combative, verbal aggression Goal aimed: increase socialization and engagement Initial Goal: Pt will participate in at least three activity therapy sessions per week Goal changed 08/08:Pt will participate in at least three activity therapy sessions before discharge Weekly progress towards goal: did not achieve, zero Group participation level: none Weekly highlights: no participation Behaviors observed: sleeping in room Plan: no change to goal Beneficial adaptations:
[2021-08-15] MEDS: risperiDONE 0.25 MG TABLET. PO SCH (11:30)
--- NOTE | 2021-08-15 13:36 | TX PLAN ---
Interdisciplinary Tx Plan Admission Information Jul 16, 2021 at 20:03 Legal Status (on Admission): Voluntary DPOA/Guardian Name: Lucille Bergman Contact Other Contact Name: Jayna Sheikh Contact Verified Code Status: Full Code Allergies: Coded Allergies: No Known Drug Allergies (Unverified , 07/16/21) Diagnoses Primary Diagnosis: (1) Impulse control disorder, unspecified (2) Anxiety disorder, unspecified (3) Dementia, vascular, with depression (4) Dementia, vascular, with delusions (5) Dementia in Alzheimer's disease with depression (6) Dementia in Alzheimer's disease with delusions (7) Dementia of the Alzheimer's type with early onset with behavioral disturbance (8) Major neurocognitive disorder Reasons for Admission: Aggressive, Delusions, Agitated, Sig. Change Sleep, Hallucinations, Combative Problem in Patient's Words: Per pt lucille fishman/DPАнна MORALES who was raised mostly by pt, pt has had a noticable decline over the past year and particularlly over the past couple of months. Up until a year ago, pt was living in her independant living apartment and out of the aldrich, she moved to [place], [place] and bought a house that she paid winn for. She was then found to be living in very poor conditions without running water and no utilities and overall unable to care for herself. She had a few past hospitalizations but then release to herself and then would be found again living in unsafe conditions. At one point, pt drove herself to Анна's home, but refused to come in to stay, and would only stay in her car. Анна was finally successful at gaining DPOA during one of pt's hospitalizations and also in getting her license revoked. During the past year, family and staff during the different hospitalizations discovered pt was having hallucinations and delusions that seem to continue. Анна is concerned if pt is struggling with onset of dementia or if pt is truly experiencing psychosis and might clear in the future with medication management. Additional Admission Comments: Per intake record, pt refusing UA and cath, sexually inappropriate comments to staff, not sleeping for 30 hours, combative to staff, delusions,auditory hallucinations, verbally aggressive, screaming, cussing, disruptive. Problems Active Problems: Hallucinations, delusions, combative, agitation Inactive Problems: Pt seems to be sleeping better. Will continue to monitor for any changes. Pt Strengths/Limitations Ability for [place]: Poor Cognitive Functioning/Ability: Poor Communication Skills/Ability: Fair Financial Resources: Fair Insight/Judgement: Poor Intellectual Ability: Fair Physical Health: Poor Social Skills: Fair Stability in Family: Fair Stability in School/Work: Fair Verbal Skills: Fair Discharge Criteria Discharge Criteria: Adequate arrangements @DC, Verbal commit med comply, Improved behavior Other Discharge Comments: None at this time. Preliminary Discharge Plan Preliminary DC Plan: Current Living Arrange. Special Precautions Special Precautions: Agitation/Assault Fall Risk: High Other Precautions (specify): Pt has a history of falls. Initial D/C Plan Plan is for pt to return to her facility at [facility]. Identified Discharge Needs: None at this time. Currently Utilized Resources Currently Utilized Resources/P: PCP-Dr. Quang Fishman/[facility]-Анна [facility]; contact-CHANA Cruz Community Resources: None known at this time. Identified Problems/Hx/Goals Objectives/Short-Term Goals Short Term Goals: Control abnormal behavior, Dec. Aggression, Dec. Hallucination/Delus, Dec. Outbursts, Medication Stabilization, Monitor Med Effects, Prevent Deterioration, Promote Coping Skill Short Term Goals in Patient's: Assist with proper diagnosis of psychosis vs dementia. Interventions/Frequency Staff Interventions/Frequency&: Psychiatry to assess pt three times per week for medication management. Nursing to assess behaviors, monitor medications, and complete 15 minute checks daily. Social work to see pt at least two times weekly to aid in return to placement. Activities to encourage pt to participate in group activities daily. 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 Education: According to [employer], pt received a high school diploma and she had some technical college. Community Follow-up PCP Community Provider/Family Inpu: Pt lucille fishman/Анна LANG, provided pt history for the development of the treatment plan. Анна is available for further information should it be needed. 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 She has refused her medications times two this date and behavior has not been easily altered. She has been irritable and raising voice at staff. Mary Lou is observed to talk to herself or other unseen people. She is psychotic and risperdol will be increased. UA was negative on 08/11/21. Mary Lou [facility]. Tentative d/c mid- late next week. CHANA is filling in for Mitzy Curry who is currently out of the office. CORY COLLINS Aug 15, 2021 13:36
[2021-08-15 15:37] VITALS: BP 130/71
[2021-08-15] MEDS: risperiDONE 0.5 MG TABLET. PO SCH (15:37)
--- NOTE | 2021-08-15 15:58 | NUR ---
Nursing note: Pt in [place] at time of AM med pass and assessment. She is very med resistive, yelling "I'll take them when I get back to the hospital!" Pt is unable to be redirected. She was given time before I attempted to give her the meds again. She continued to refuse at the later time as well. Psych meds were then crushed and put in an oral syringe, which she ended up being compliant in taking the meds from the syringe. Pt has been compliant with the rest of her meds crushed in pudding this shift. Pt has been observed sleeping in her chair positioned in different spots throughout the unit today and occasionally talking to herself. Pt denies having any pain. She is currently resting quietly in her room. Will continue to monitor.
[2021-08-15] MEDS: MIRTAZAPINE 15 MG TABLET PO SCH (20:22)
[2021-08-15] MEDS: risperiDONE 1 MG TABLET. PO SCH (20:22)
[2021-08-15] MEDS: traZODone 50 MG TABLET. PO SCH (20:22)
[2021-08-15] MEDS: MELATONIN 3 MG TABLET PO SCH (20:22)
--- NOTE | 2021-08-15 21:18 | PDOC ---
Exam Note: [place] Note: Please also refer to the separate dictated note~for this date of service dictated separately.~Patient seen individually. Discussed the patient with Nursing staff reviewed the chart.~Reviewed interim history and current functioning. Reviewed vital signs,~Labs/ Radiology~and current medications noted below. Continue current treatment with the changes noted in the dictated addendum note Assessment: Vital Signs/I&O: Vital Signs Date Time Temp Pulse Resp B/P (MAP) Pulse Ox O2 Delivery O2 Flow Rate FiO2 08/15/21 15:37 98.5 75 20 130/71 (90) 94 08/11/21 11:51 Room Air I & O 08/14/21 08/14/21 08/15/21 15:00 23:00 07:00 Intake Total 360 ml 360 ml Balance 360 ml 360 ml Labs: Laboratory Tests Test 08/15/21 07:29 08/15/21 11:41 08/15/21 17:09 Glucose (Fingerstick) 89 mg/dL (70-99) 146 mg/dL (70-99) H 155 mg/dL (70-99) H Current Medications: Meds: Laboratory Tests Test 08/15/21 07:29 08/15/21 11:41 08/15/21 17:09 Glucose (Fingerstick) 89 mg/dL 146 mg/dL 155 mg/dL Current Medications Medications (Trade) Dose Ordered Sig/Richard Route PRN Reason Start Time Stop Time Status Last Admin Dose Admin Influenza Virus Vaccine Quadrival (Flulaval Quad [id number] Syringe) 0.5 ml ONCE ONCE VAX IM 07/17/21 09:00 07/17/21 09:01 DC 07/17/21 10:00 Acetaminophen (Tylenol) 650 mg PRN Q6HRS PRN PO PAIN/FEVER 07/16/21 22:45 UNV Metformin HCl (Glucophage) 1,000 mg BIDWMEALS PO 07/17/21 08:00 08/15/21 17:32 Nystatin (Mycostatin) 1 sulma PRN BID PRN TP RASH 07/16/21 22:45 Quetiapine Fumarate (SEROquel) 50 mg BID PO 07/17/21 09:00 07/18/21 10:56 DC 07/18/21 08:21 Trazodone HCl (Desyrel) 50 mg QHS PO 07/17/21 21:00 08/15/21 20:22 Non-Formulary Medication (Albuterol Sulfate (Albuterol Sulfate Neb Soln)) 1 vial QID PRN NEB SHORTNESS OF AIR 07/16/21 22:45 UNV Non-Formulary Medication (Insulin Aspart (Insulin Aspart Flexpen)) 100 unit PRN AFTMEALHC PRN SQ ELEVATED BLOOD SUGAR 07/16/21 22:45 UNV Acetaminophen (Tylenol) 650 mg PRN Q6HRS PRN PO MILD PAIN / TEMP > 100.3'F 07/16/21 22:45 08/12/21 08:21 Multi-Ingredient Ointment (Analgesic [place]) 1 sulma PRN QID PRN TP MUSCLE PAIN 07/16/21 22:45 Al Hydroxide/Mg Hydroxide (Mylanta Plus Xs) 15 ml PRN AFTMEALHC PRN PO DYSPEPSIA 07/16/21 22:45 Magnesium Hydroxide (Milk Of Magnesia) 2,400 mg PRN QHS PRN PO CONSTIPATION 07/16/21 22:45 Albuterol Sulfate (Ventolin) 2.5 mg PRN Q6HRS PRN NEB SHORTNESS OF BREATH 07/16/21 23:00 07/17/21 06:25 DC Insulin Human Lispro (HumaLOG) 0-5 UNITS TIDWMEALS SQ 07/17/21 08:00 08/13/21 17:27 Dextrose (Dextrose 50%-Water Syringe) 12.5 gm PRN Q15MIN PRN IV SEE COMMENTS 07/17/21 00:15 Albuterol Sulfate (Ventolin Hfa Inhaler) 1 puff PRN Q6HRS PRN INH SHORTNESS OF BREATH 07/17/21 06:30 Risperidone (RisperDAL) 0.5 mg HS PO 07/18/21 21:00 07/21/21 19:40 DC 07/20/21 20:18 Olanzapine (ZyPREXA ZYDIS) 2.5 mg PRN Q2HR PRN PO PSYCHOSIS 07/18/21 18:15 08/12/21 22:33 Divalproex Sodium (Depakote Sprinkles) 125 mg BID@0900,1700 PO 07/21/21 09:00 07/25/21 01:54 DC 07/24/21 17:08 Risperidone (RisperDAL) 1 mg HS PO 07/21/21 21:00 07/29/21 18:23 DC 07/28/21 20:11 Trazodone HCl (Desyrel) 50 mg PRN QHS PRN PO INSOMNIA 07/21/21 19:45 08/12/21 22:33 Mirtazapine (Remeron) 7.5 mg QHS PO 07/21/21 21:00 07/22/21 19:52 DC 07/21/21 20:04 Mirtazapine (Remeron) 15 mg QHS PO 07/22/21 21:00 08/15/21 20:22 Melatonin (Melatonin) 3 mg QHS PO 07/22/21 21:00 07/23/21 20:00 DC 07/22/21 20:21 Melatonin (Melatonin) 4.5 mg QHS PO 07/23/21 21:00 08/15/21 20:22 Divalproex Sodium (Depakote Sprinkles) 250 mg BID@0900,1700 PO 07/25/21 09:00 07/28/21 19:57 DC 07/28/21 17:07 Nystatin (Nystop) 1 sulma BID TP 07/27/21 21:00 08/15/21 20:24 Divalproex Sodium (Depakote Sprinkles) 375 mg BID@0900,1700 PO 07/29/21 09:00 08/15/21 17:32 Risperidone (RisperDAL) 0.25 mg QHS PO 07/29/21 21:00 08/09/21 19:39 DC 08/08/21 20:35 Risperidone (RisperDAL) 1 mg QHS PO 07/29/21 21:00 08/15/21 20:22 Sertraline HCl (Zoloft) 25 mg DAILY PO 08/03/21 09:00 08/05/21 12:00 DC 08/05/21 08:32 Sertraline HCl (Zoloft) 50 mg DAILY PO 08/06/21 09:00 08/10/21 20:02 DC 08/10/21 08:48 Ascorbic Acid (Vitamin C) 500 mg BIDWMEALS PO 08/06/21 17:00 08/15/21 17:32 Ferrous Sulfate (Feosol) 325 mg BIDWMEALS PO 08/06/21 17:00 08/15/21 17:32 Risperidone (RisperDAL) 0.5 mg QHS PO 08/09/21 21:00 08/15/21 11:24 DC 08/14/21 20:07 Sertraline HCl (Zoloft) 75 mg DAILY PO 08/11/21 09:00 08/13/21 09:01 DC 08/13/21 08:15 Buspirone HCl (Buspar) 5 mg BID@0900,1700 PO 08/11/21 09:00 08/14/21 17:40 DC 08/14/21 17:22 Sertraline HCl (Zoloft) 100 mg DAILY PO 08/14/21 09:00 08/15/21 08:38 Buspirone HCl (Buspar) 10 mg BID@0900,1700 PO 08/14/21 17:45 08/14/21 17:56 DC Buspirone HCl (Buspar) 10 mg BID@0900,1700 PO 08/15/21 09:00 08/15/21 17:31 Risperidone (RisperDAL) 0.5 mg 1500 PO 08/15/21 15:00 08/15/21 15:37 Risperidone (RisperDAL) 0.25 mg DAILY PO 08/15/21 11:30 08/15/21 11:30 Current Medications Medications (Trade) Dose Ordered Sig/Richard Route PRN Reason Start Time Stop Time Status Last Admin Dose Admin Buspirone HCl (Buspar) 10 mg BID@0900,1700 PO 08/15/21 09:00 08/15/21 17:31 Risperidone (RisperDAL) 0.5 mg 1500 PO 08/15/21 15:00 08/15/21 15:37 Risperidone (RisperDAL) 0.25 mg DAILY PO 08/15/21 11:30 08/15/21 11:30 I have reviewed the current psychotropics carefully including drug interactions. Risk benefit ratio favors no change other than as noted in my dictated progress note. Diagnosis: Problems: (1) Impulse control disorder, unspecified (2) Anxiety disorder, unspecified (3) Dementia, vascular, with depression (4) Dementia, vascular, with delusions (5) Dementia in Alzheimer's disease with depression (6) Dementia in Alzheimer's disease with delusions (7) Dementia of the Alzheimer's type with early onset with behavioral disturbance (8) Major neurocognitive disorder SOO BAIRES MD Aug 15, 2021 21:18
--- NOTE | 2021-08-16 03:42 | NUR ---
Nursing Note The patient was located in her room for her assessment and medication pass. The patient took her medication crushed in pudding. The patient was alert to self. The patient was cooperative with HS cares but continued to yell "oh my god!" The patient is currently sleeping in her room.
[2021-08-16 06:13] VITALS: BP 127/77
[2021-08-16] MEDS: INSULIN LISPRO 300 UNITS/3 ML VIAL. SQ SCH ×3 (08:00→17:00)
[2021-08-16] MEDS: SERTRALINE 25 MG TABLET. PO SCH (08:40)
[2021-08-16] MEDS: metFORMIN 500 MG TABLET PO SCH ×2 (08:41→17:00)
[2021-08-16] MEDS: FERROUS SULFATE 325 MG TABLET. PO SCH ×2 (08:41→17:00)
[2021-08-16] MEDS: risperiDONE 0.25 MG TABLET. PO SCH (08:41)
[2021-08-16] MEDS: busPIRone 10 MG TABLET. PO SCH ×2 (08:41→17:00)
[2021-08-16] MEDS: NYSTATIN TOPICAL POWDER 15GM BOTTLE. TP SCH ×2 (08:41→21:00)
[2021-08-16] MEDS: ASCORBIC ACID 500 MG TABLET PO SCH ×2 (08:41→17:00)
[2021-08-16] MEDS: DIVALPROEX 125 MG CAP.SPRINK PO SCH ×2 (08:41→17:00)
[2021-08-16] MEDS: risperiDONE 0.5 MG TABLET. PO SCH (15:00)
[2021-08-16 20:23] LABS: BASO % 1 % (0-3); EOS # 0.2 x10^3/uL (0.0-0.7); EOS % 2 % (0-3); HEMATOCRIT 30.6 % (36.0-47.0); HEMOGLOBIN 9.7 g/dL (12.0-15.5); LYMPH # 2.6 x10^3/uL (1.0-4.8); LYMPH % 32 % (24-48); MEAN CORPUSCULAR HEMOGLOBIN 27 pg (25-35); MEAN CORPUSCULAR HGB CONC 32 g/dL (31-37); MEAN CORPUSCULAR VOLUME 85 fL (79-100); MONO # 0.8 x10^3/uL (0.0-1.1); MONO % 10 % (0-9); NEUT # 4.6 x10^3uL (1.8-7.7); NEUT % 56 % (31-73); PLATELET COUNT 182 x10^3/uL (140-400); RED CELL DISTRIBUTION WIDTH 15.4 % (11.5-14.5); WHITE BLOOD COUNT 8.3 x10^3/uL (4.0-11.0)
--- NOTE | 2021-08-16 20:24 | PDOC ---
Exam Note: [place] Note: Please also refer to the separate dictated note~for this date of service dictated separately.~Patient seen individually. Discussed the patient with Nursing staff reviewed the chart.~Reviewed interim history and current functioning. Reviewed vital signs,~Labs/ Radiology~and current medications noted below. Continue current treatment with the changes noted in the dictated addendum note Assessment: Vital Signs/I&O: Vital Signs Date Time Temp Pulse Resp B/P (MAP) Pulse Ox O2 Delivery O2 Flow Rate FiO2 08/16/21 06:13 97.6 77 20 127/77 (94) 96 2.0 08/11/21 11:51 Room Air I & O 08/15/21 08/15/21 08/16/21 14:59 22:59 06:59 Intake Total 120 ml 80 ml Balance 120 ml 80 ml Labs: Laboratory Tests Test 08/16/21 07:09 08/16/21 11:35 08/16/21 16:18 08/16/21 19:26 Glucose (Fingerstick) 108 mg/dL (70-99) H 121 mg/dL (70-99) H 119 mg/dL (70-99) H 106 mg/dL (70-99) H Current Medications: Meds: Laboratory Tests Test 08/16/21 07:09 08/16/21 11:35 08/16/21 16:18 08/16/21 19:26 Glucose (Fingerstick) 108 mg/dL 121 mg/dL 119 mg/dL 106 mg/dL Current Medications Medications (Trade) Dose Ordered Sig/Richard Route PRN Reason Start Time Stop Time Status Last Admin Dose Admin Influenza Virus Vaccine Quadrival (Flulaval Quad Syringe) 0.5 ml ONCE ONCE VAX IM 07/17/21 09:00 07/17/21 09:01 DC 07/17/21 10:00 Acetaminophen (Tylenol) 650 mg PRN Q6HRS PRN PO PAIN/FEVER 07/16/21 22:45 UNV Metformin HCl (Glucophage) 1,000 mg BIDWMEALS PO 07/17/21 08:00 08/16/21 08:41 Nystatin (Mycostatin) 1 sulma PRN BID PRN TP RASH 07/16/21 22:45 Quetiapine Fumarate (SEROquel) 50 mg BID PO 07/17/21 09:00 07/18/21 10:56 DC 07/18/21 08:21 Trazodone HCl (Desyrel) 50 mg QHS PO 07/17/21 21:00 08/15/21 20:22 Non-Formulary Medication (Albuterol Sulfate (Albuterol Sulfate Neb Soln)) 1 vial QID PRN NEB SHORTNESS OF AIR 07/16/21 22:45 UNV Non-Formulary Medication (Insulin Aspart (Insulin Aspart Flexpen)) 100 unit PRN AFTMEALHC PRN SQ ELEVATED BLOOD SUGAR 07/16/21 22:45 UNV Acetaminophen (Tylenol) 650 mg PRN Q6HRS PRN PO MILD PAIN / TEMP > 100.3'F 07/16/21 22:45 08/12/21 08:21 Multi-Ingredient Ointment (Analgesic [place]) 1 sulma PRN QID PRN TP MUSCLE PAIN 07/16/21 22:45 Al Hydroxide/Mg Hydroxide (Mylanta Plus Xs) 15 ml PRN AFTMEALHC PRN PO DYSPEPSIA 07/16/21 22:45 Magnesium Hydroxide (Milk Of Magnesia) 2,400 mg PRN QHS PRN PO CONSTIPATION 07/16/21 22:45 Albuterol Sulfate (Ventolin) 2.5 mg PRN Q6HRS PRN NEB SHORTNESS OF BREATH 07/16/21 23:00 07/17/21 06:25 DC Insulin Human Lispro (HumaLOG) 0-5 UNITS TIDWMEALS SQ 07/17/21 08:00 08/13/21 17:27 Dextrose (Dextrose 50%-Water Syringe) 12.5 gm PRN Q15MIN PRN IV SEE COMMENTS 07/17/21 00:15 Albuterol Sulfate (Ventolin Hfa Inhaler) 1 puff PRN Q6HRS PRN INH SHORTNESS OF BREATH 07/17/21 06:30 Risperidone (RisperDAL) 0.5 mg HS PO 07/18/21 21:00 07/21/21 19:40 DC 07/20/21 20:18 Olanzapine (ZyPREXA ZYDIS) 2.5 mg PRN Q2HR PRN PO PSYCHOSIS 07/18/21 18:15 08/12/21 22:33 Divalproex Sodium (Depakote Sprinkles) 125 mg BID@0900,1700 PO 07/21/21 09:00 07/25/21 01:54 DC 07/24/21 17:08 Risperidone (RisperDAL) 1 mg HS PO 07/21/21 21:00 07/29/21 18:23 DC 07/28/21 20:11 Trazodone HCl (Desyrel) 50 mg PRN QHS PRN PO INSOMNIA 07/21/21 19:45 08/12/21 22:33 Mirtazapine (Remeron) 7.5 mg QHS PO 07/21/21 21:00 07/22/21 19:52 DC 07/21/21 20:04 Mirtazapine (Remeron) 15 mg QHS PO 07/22/21 21:00 08/15/21 20:22 Melatonin (Melatonin) 3 mg QHS PO 07/22/21 21:00 07/23/21 20:00 DC 07/22/21 20:21 Melatonin (Melatonin) 4.5 mg QHS PO 07/23/21 21:00 08/15/21 20:22 Divalproex Sodium (Depakote Sprinkles) 250 mg BID@0900,1700 PO 07/25/21 09:00 07/28/21 19:57 DC 07/28/21 17:07 Nystatin (Nystop) 1 sulma BID TP 07/27/21 21:00 08/16/21 08:41 Divalproex Sodium (Depakote Sprinkles) 375 mg BID@0900,1700 PO 07/29/21 09:00 08/16/21 08:41 Risperidone (RisperDAL) 0.25 mg QHS PO 07/29/21 21:00 08/09/21 19:39 DC 08/08/21 20:35 Risperidone (RisperDAL) 1 mg QHS PO 07/29/21 21:00 08/15/21 20:22 Sertraline HCl (Zoloft) 25 mg DAILY PO 08/03/21 09:00 08/05/21 12:00 DC 08/05/21 08:32 Sertraline HCl (Zoloft) 50 mg DAILY PO 08/06/21 09:00 08/10/21 20:02 DC 08/10/21 08:48 Ascorbic Acid (Vitamin C) 500 mg BIDWMEALS PO 08/06/21 17:00 08/16/21 08:41 Ferrous Sulfate (Feosol) 325 mg BIDWMEALS PO 08/06/21 17:00 08/16/21 08:41 Risperidone (RisperDAL) 0.5 mg QHS PO 08/09/21 21:00 08/15/21 11:24 DC 08/14/21 20:07 Sertraline HCl (Zoloft) 75 mg DAILY PO 08/11/21 09:00 08/13/21 09:01 DC 08/13/21 08:15 Buspirone HCl (Buspar) 5 mg BID@0900,1700 PO 08/11/21 09:00 08/14/21 17:40 DC 08/14/21 17:22 Sertraline HCl (Zoloft) 100 mg DAILY PO 08/14/21 09:00 08/16/21 08:40 Buspirone HCl (Buspar) 10 mg BID@0900,1700 PO 08/14/21 17:45 08/14/21 17:56 DC Buspirone HCl (Buspar) 10 mg BID@0900,1700 PO 08/15/21 09:00 08/16/21 08:41 Risperidone (RisperDAL) 0.5 mg 1500 PO 08/15/21 15:00 08/15/21 15:37 Risperidone (RisperDAL) 0.25 mg DAILY PO 08/15/21 11:30 08/16/21 08:41 I have reviewed the current psychotropics carefully including drug interactions. Risk benefit ratio favors no change other than as noted in my dictated progress note. Diagnosis: Problems: (1) Impulse control disorder, unspecified (2) Anxiety disorder, unspecified (3) Dementia, vascular, with depression (4) Dementia, vascular, with delusions (5) Dementia in Alzheimer's disease with depression (6) Dementia in Alzheimer's disease with delusions (7) Dementia of the Alzheimer's type with early onset with behavioral disturbance (8) Major neurocognitive disorder SOO BAIRES MD Aug 16, 2021 20:24
[2021-08-16 20:27] LABS: CALCIUM 8.4 mg/dL (8.5-10.1); GFR 52.8; POTASSIUM 4.3 mmol/L (3.5-5.1)
[2021-08-16] MEDS: MELATONIN 3 MG TABLET PO SCH (21:00)
[2021-08-16] MEDS: MIRTAZAPINE 15 MG TABLET PO SCH (21:00)
[2021-08-16] MEDS: traZODone 50 MG TABLET. PO SCH (21:00)
[2021-08-16] MEDS: risperiDONE 1 MG TABLET. PO SCH (21:00)
[2021-08-16 23:23] LABS: BACTERIA,URINE 0 /HPF (0-FEW); BILIRUBIN,URINE NEG (NEG); CLARITY,URINE CLEAR; COLOR,URINE YELLOW; GLUCOSE,URINE NEG (NEG); NITRITE,URINE NEG (NEG); RBC,URINE 0 /HPF (0-2); SQUAMOUS EPITHELIAL CELL,UR OCC /LPF; UROBILINOGEN,URINE 0.2 mg/dL (0.2 mg/dL)
[2021-08-16 23:24] LABS: YEAST,URINE PRESENT /HPF
--- NOTE | 2021-08-16 23:58 | NUR ---
Patient located in her room on assumption of care, asleep in bed. Report from off-going shift that patient had been drowsy and asleep for much of the day. [employer] ARCHITECT alerted nursing staff that patient did not look right. Upon assessment, patient was found to be obtunded and difficult to arouse. Vital signs obtained at that time, mostly WNL except patient heart rate elevated at 100 BPM. O2 94% on 2L via nasal cannula. Patient appears flushed, clammy and warm to the touch, despite normal readings on both temporal and oral thermometers. Lung sounds diminished with fine crackles noted on the mid to lower left lobe. Doctor paged, orders received for stat CMP, BMP, CXR and UA. Patient presented with dry brief, urine obtained via straight cath, greater than 1000mL of clear, quinn urine drained. Urine has gone to culture. Patient perked up later on in the shift, but remains less vocal and alert than baseline. Will continue to monitor and report to MD with results.
--- NOTE | 2021-08-17 04:22 | RAD ---
INDICATION: Reason: crackles left mid to lower; altered LOC / Spl. Instructions: / History: COMPARISON: August 11, 2021 FINDINGS: Single view of chest obtained. Cardiomediastinal silhouette is enlarged with calcific atherosclerosis. Calcified lymph nodes are suspected. Degenerative changes the spine with scoliotic curvature. There is some interstitial and groundglass opacities bilaterally appear slightly increased. Left lung base is obscured by overlying cardiac silhouette IMPRESSION: * Slight increase in interstitial and groundglass opacities bilaterally which could be from edema an d/or infiltrate. Electronically signed by: Geoff Dang MD (08/17/2021 4:19 AM) [id number]
[2021-08-17 06:49] VITALS: BP 132/64
--- NOTE | 2021-08-17 07:06 | PDOC ---
Exam Note: [place] Note: This note is a late entry for 08/15/2021 covers elements not covered in my initial note. Subjective: The patient was reviewed at treatment team meeting individually in the morning on 08/15/2021 with Katherine Moreno, Eliza Muniz, and Stephani Curry (social sciences department chair), Martina, activity therapy, and Honey RN, discussed and reviewed the chart. The patient slept 7-1/2 hours previous night. Average sleep 5 hours. Appetite is 60%. She has been yelling at times, anxious, restless. Review of Systems: Ambulation impaired, in wheelchair. No CV, , pulmonary, e ye, ENT system symptoms on review. Mental Status Exam: The patient is oriented to herself. She is hyperverbal and difficult to redirect at times, talking to herself as I stood outside her room initially before meeting her. Insight and judgment, recent and remote memory, attention and concentration, fund of knowledge is poor consistent with her diagnosis. Laboratory Data: Reviewed. Impression: Major neurocognitive disorder Alzheimer, vascular, with delusions, depression, behavioral disturbance. Anxiety disorder unspecified. Impulse control disorder unspecified. Plan: Maintain rest of the psychotropics unchanged. Given the patients ongoing paranoia during the day, we will change the Risperdal 1.5 mg h.s. to 0.25 mg a.m. and 0.5 mg 3 p.m. and 1 mg h.s. and BuSpar has been increased as well. Assessment: Vital Signs/I&O: Vital Signs Date Time Temp Pulse Resp B/P (MAP) Pulse Ox O2 Delivery O2 Flow Rate FiO2 08/17/21 06:49 98.2 79 28 132/64 (86) 95 2.0 08/11/21 11:51 Room Air I & O 08/16/21 08/16/21 08/17/21 15:00 23:00 07:00 Intake Total 0 ml 0 ml Balance 0 ml 0 ml Labs: Laboratory Tests Test 08/16/21 07:09 08/16/21 11:35 08/16/21 16:18 08/16/21 19:26 Glucose (Fingerstick) 108 mg/dL (70-99) H 121 mg/dL (70-99) H 119 mg/dL (70-99) H 106 mg/dL (70-99) H Test 08/16/21 20:08 08/16/21 23:00 08/17/21 06:00 White Blood Count 8.3 x10^3/uL (4.0-11.0) Red Blood Count 3.60 x10^6/uL (3.50-5.40) Hemoglobin 9.7 g/dL (12.0-15.5) L Hematocrit 30.6 % (36.0-47.0) L Mean Corpuscular Volume 85 fL (79-100) Mean Corpuscular Hemoglobin 27 pg (25-35) Mean Corpuscular Hemoglobin Concent 32 g/dL (31-37) Red Cell Distribution Width 15.4 % (11.5-14.5) H Platelet Count 182 x10^3/uL (140-400) Neutrophils (%) (Auto) 56 % (31-73) Lymphocytes (%) (Auto) 32 % (24-48) Monocytes (%) (Auto) 10 % (0-9) H Eosinophils (%) (Auto) 2 % (0-3) Basophils (%) (Auto) 1 % (0-3) Neutrophils # (Auto) 4.6 x10^3uL (1.8-7.7) Lymphocytes # (Auto) 2.6 x10^3/uL (1.0-4.8) Monocytes # (Auto) 0.8 x10^3/uL (0.0-1.1) Eosinophils # (Auto) 0.2 x10^3/uL (0.0-0.7) Basophils # (Auto) 0.0 x10^3/uL (0.0-0.2) Sodium Level 145 mmol/L (136-145) Potassium Level 4.3 mmol/L (3.5-5.1) Chloride Level 108 mmol/L (98-107) H Carbon Dioxide Level 30 mmol/L (21-32) Anion Gap 7 (6-14) Blood Urea Nitrogen 28 mg/dL (7-20) H Creatinine 1.0 mg/dL (0.6-1.0) Estimated GFR (Cockcroft-Gault) 52.8 Glucose Level 103 mg/dL (70-99) H Calcium Level 8.4 mg/dL (8.5-10.1) L Creatine Kinase 81 U/L (26-192) Urine Collection Type Unknown Urine Color Yellow Urine Clarity Clear Urine pH 5.5 Urine Specific [place] 1.025 Urine Protein Neg (NEG-TRACE) Urine Glucose (UA) Neg mg/dL (NEG) Urine Ketones (Stick) Trace mg/dL (NEG) Urine Blood Neg (NEG) Urine Nitrite Neg (NEG) Urine Bilirubin Neg (NEG) Urine Urobilinogen Dipstick 0.2 mg/dL (0.2 mg/dL) Urine Leukocyte Esterase Trace (NEG) Urine RBC 0 /HPF (0-2) Urine WBC 5-10 /HPF (0-4) Urine Squamous Epithelial Cells Occ /LPF Urine Bacteria 0 /HPF (0-FEW) Urine Yeast Present /HPF CG-Dly-Z-Type Natriuretic Peptide 3927 pg/mL (0-449) H Current Medications: Meds: Laboratory Tests Test 08/16/21 07:09 08/16/21 11:35 08/16/21 16:18 08/16/21 19:26 Glucose (Fingerstick) 108 mg/dL 121 mg/dL 119 mg/dL 106 mg/dL Test 08/16/21 20:08 08/16/21 23:00 08/17/21 06:00 White Blood Count 8.3 x10^3/uL Red Blood Count 3.60 x10^6/uL Hemoglobin 9.7 g/dL Hematocrit 30.6 % Mean Corpuscular Volume 85 fL Mean Corpuscular Hemoglobin 27 pg Mean Corpuscular Hemoglobin Concent 32 g/dL Red Cell Distribution Width 15.4 % Platelet Count 182 x10^3/uL Neutrophils (%) (Auto) 56 % Lymphocytes (%) (Auto) 32 % Monocytes (%) (Auto) 10 % Eosinophils (%) (Auto) 2 % Basophils (%) (Auto) 1 % Neutrophils # (Auto) 4.6 x10^3uL Lymphocytes # (Auto) 2.6 x10^3/uL Monocytes # (Auto) 0.8 x10^3/uL Eosinophils # (Auto) 0.2 x10^3/uL Basophils # (Auto) 0.0 x10^3/uL Sodium Level 145 mmol/L Potassium Level 4.3 mmol/L Chloride Level 108 mmol/L Carbon Dioxide Level 30 mmol/L Anion Gap 7 Blood Urea Nitrogen 28 mg/dL Creatinine 1.0 mg/dL Estimated GFR (Cockcroft-Gault) 52.8 Glucose Level 103 mg/dL Calcium Level 8.4 mg/dL Creatine Kinase 81 U/L Urine Collection Type Unknown Urine Color Yellow Urine Clarity Clear Urine pH 5.5 Urine Specific [place] 1.025 Urine Protein Neg Urine Glucose (UA) Neg mg/dL Urine Ketones (Stick) Trace mg/dL Urine Blood Neg Urine Nitrite Neg Urine Bilirubin Neg Urine Urobilinogen Dipstick 0.2 mg/dL Urine Leukocyte Esterase Trace Urine RBC 0 /HPF Urine WBC 5-10 /HPF Urine Squamous Epithelial Cells Occ /LPF Urine Bacteria 0 /HPF Urine Yeast Present /HPF EB-Esc-D-Type Natriuretic Peptide 3927 pg/mL Current Medications Medications (Trade) Dose Ordered Sig/Richard Route PRN Reason Start Time Stop Time Status Last Admin Dose Admin Influenza Virus Vaccine Quadrival (Flulaval Quad Syringe) 0.5 ml ONCE ONCE VAX IM 07/17/21 09:00 07/17/21 09:01 DC 07/17/21 10:00 Acetaminophen (Tylenol) 650 mg PRN Q6HRS PRN PO PAIN/FEVER 07/16/21 22:45 UNV Metformin HCl (Glucophage) 1,000 mg BIDWMEALS PO 07/17/21 08:00 08/16/21 08:41 Nystatin (Mycostatin) 1 sulma PRN BID PRN TP RASH 07/16/21 22:45 Quetiapine Fumarate (SEROquel) 50 mg BID PO 07/17/21 09:00 07/18/21 10:56 DC 07/18/21 08:21 Trazodone HCl (Desyrel) 50 mg QHS PO 07/17/21 21:00 08/15/21 20:22 Non-Formulary Medication (Albuterol Sulfate (Albuterol Sulfate Neb Soln)) 1 vial QID PRN NEB SHORTNESS OF AIR 07/16/21 22:45 UNV Non-Formulary Medication (Insulin Aspart (Insulin Aspart Flexpen)) 100 unit PRN AFTMEALHC PRN SQ ELEVATED BLOOD SUGAR 07/16/21 22:45 UNV Acetaminophen (Tylenol) 650 mg PRN Q6HRS PRN PO MILD PAIN / TEMP > 100.3'F 07/16/21 22:45 08/12/21 08:21 Multi-Ingredient Ointment (Analgesic [place]) 1 sulma PRN QID PRN TP MUSCLE PAIN 07/16/21 22:45 Al Hydroxide/Mg Hydroxide (Mylanta Plus Xs) 15 ml PRN AFTMEALHC PRN PO DYSPEPSIA 07/16/21 22:45 Magnesium Hydroxide (Milk Of Magnesia) 2,400 mg PRN QHS PRN PO CONSTIPATION 07/16/21 22:45 Albuterol Sulfate (Ventolin) 2.5 mg PRN Q6HRS PRN NEB SHORTNESS OF BREATH 07/16/21 23:00 07/17/21 06:25 DC Insulin Human Lispro (HumaLOG) 0-5 UNITS TIDWMEALS SQ 07/17/21 08:00 08/13/21 17:27 Dextrose (Dextrose 50%-Water Syringe) 12.5 gm PRN Q15MIN PRN IV SEE COMMENTS 07/17/21 00:15 Albuterol Sulfate (Ventolin Hfa Inhaler) 1 puff PRN Q6HRS PRN INH SHORTNESS OF BREATH 07/17/21 06:30 Risperidone (RisperDAL) 0.5 mg HS PO 07/18/21 21:00 07/21/21 19:40 DC 07/20/21 20:18 Olanzapine (ZyPREXA ZYDIS) 2.5 mg PRN Q2HR PRN PO PSYCHOSIS 07/18/21 18:15 08/12/21 22:33 Divalproex Sodium (Depakote Sprinkles) 125 mg BID@0900,1700 PO 07/21/21 09:00 07/25/21 01:54 DC 07/24/21 17:08 Risperidone (RisperDAL) 1 mg HS PO 07/21/21 21:00 07/29/21 18:23 DC 07/28/21 20:11 Trazodone HCl (Desyrel) 50 mg PRN QHS PRN PO INSOMNIA 07/21/21 19:45 08/12/21 22:33 Mirtazapine (Remeron) 7.5 mg QHS PO 07/21/21 21:00 07/22/21 19:52 DC 07/21/21 20:04 Mirtazapine (Remeron) 15 mg QHS PO 07/22/21 21:00 08/15/21 20:22 Melatonin (Melatonin) 3 mg QHS PO 07/22/21 21:00 07/23/21 20:00 DC 07/22/21 20:21 Melatonin (Melatonin) 4.5 mg QHS PO 07/23/21 21:00 08/15/21 20:22 Divalproex Sodium (Depakote Sprinkles) 250 mg BID@0900,1700 PO 07/25/21 09:00 07/28/21 19:57 DC 07/28/21 17:07 Nystatin (Nystop) 1 sulma BID TP 07/27/21 21:00 08/16/21 21:00 Divalproex Sodium (Depakote Sprinkles) 375 mg BID@0900,1700 PO 07/29/21 09:00 08/16/21 08:41 Risperidone (RisperDAL) 0.25 mg QHS PO 07/29/21 21:00 08/09/21 19:39 DC 08/08/21 20:35 Risperidone (RisperDAL) 1 mg QHS PO 07/29/21 21:00 08/15/21 20:22 Sertraline HCl (Zoloft) 25 mg DAILY PO 08/03/21 09:00 08/05/21 12:00 DC 08/05/21 08:32 Sertraline HCl (Zoloft) 50 mg DAILY PO 08/06/21 09:00 08/10/21 20:02 DC 08/10/21 08:48 Ascorbic Acid (Vitamin C) 500 mg BIDWMEALS PO 08/06/21 17:00 08/16/21 08:41 Ferrous Sulfate (Feosol) 325 mg BIDWMEALS PO 08/06/21 17:00 08/16/21 08:41 Risperidone (RisperDAL) 0.5 mg QHS PO 08/09/21 21:00 08/15/21 11:24 DC 08/14/21 20:07 Sertraline HCl (Zoloft) 75 mg DAILY PO 08/11/21 09:00 08/13/21 09:01 DC 08/13/21 08:15 Buspirone HCl (Buspar) 5 mg BID@0900,1700 PO 08/11/21 09:00 08/14/21 17:40 DC 08/14/21 17:22 Sertraline HCl (Zoloft) 100 mg DAILY PO 08/14/21 09:00 08/16/21 08:40 Buspirone HCl (Buspar) 10 mg BID@0900,1700 PO 08/14/21 17:45 08/14/21 17:56 DC Buspirone HCl (Buspar) 10 mg BID@0900,1700 PO 08/15/21 09:00 08/16/21 08:41 Risperidone (RisperDAL) 0.5 mg 1500 PO 08/15/21 15:00 08/15/21 15:37 Risperidone (RisperDAL) 0.25 mg DAILY PO 08/15/21 11:30 08/16/21 08:41 I have reviewed the current psychotropics carefully including drug interactions. Risk benefit ratio favors no change other than as noted in my dictated progress note. Diagnosis: Problems: (1) Impulse control disorder, unspecified (2) Anxiety disorder, unspecified (3) Dementia, vascular, with depression (4) Dementia, vascular, with delusions (5) Dementia in Alzheimer's disease with depression (6) Dementia in Alzheimer's disease with delusions (7) Dementia of the Alzheimer's type with early onset with behavioral disturbance (8) Major neurocognitive disorder SOO BAIRES MD Aug 17, 2021 07:06
--- NOTE | 2021-08-17 07:17 | PDOC ---
Exam Note: [place] Note: This note is a late entry for 08/16/2021 covers elements not covered in my initial note. Subjective: The patient was seen individually in the evening of 08/16/2021 with Debbie TANG, discussed and reviewed the chart. The patient slept 8-3/4 hours previous night. Overall she has been drowsy in the evening. Risperdal was held and evening meds were held as well. Review of Systems: Ambulation impaired, in wheelchair. No CV, , pulmonary, eye, ENT system symptoms on review. Reliability poor. Mental Status Exam: The patient is oriented to herself. I met with her in her room. Insight and judgment, recent and remote memory, attention and concentration, fund of knowledge is poor consistent with her diagnosis. Laboratory Data: Reviewed. Impression: Major neurocognitive disorder Alzheimer, vascular, with delusions, depression, behavioral disturbance. Anxiety disorder unspecified. Impulse control disorder unspecified. Plan: Continue current psychotropics. Assessment: Vital Signs/I&O: Vital Signs Date Time Temp Pulse Resp B/P (MAP) Pulse Ox O2 Delivery O2 Flow Rate FiO2 08/17/21 06:49 98.2 79 28 132/64 (86) 95 2.0 08/11/21 11:51 Room Air I & O 08/16/21 08/16/21 08/17/21 15:00 23:00 07:00 Intake Total 0 ml 0 ml Balance 0 ml 0 ml Labs: Laboratory Tests Test 08/16/21 11:35 08/16/21 16:18 08/16/21 19:26 08/16/21 20:08 Glucose (Fingerstick) 121 mg/dL (70-99) H 119 mg/dL (70-99) H 106 mg/dL (70-99) H White Blood Count 8.3 x10^3/uL (4.0-11.0) Red Blood Count 3.60 x10^6/uL (3.50-5.40) Hemoglobin 9.7 g/dL (12.0-15.5) L Hematocrit 30.6 % (36.0-47.0) L Mean Corpuscular Volume 85 fL (79-100) Mean Corpuscular Hemoglobin 27 pg (25-35) Mean Corpuscular Hemoglobin Concent 32 g/dL (31-37) Red Cell Distribution Width 15.4 % (11.5-14.5) H Platelet Count 182 x10^3/uL (140-400) Neutrophils (%) (Auto) 56 % (31-73) Lymphocytes (%) (Auto) 32 % (24-48) Monocytes (%) (Auto) 10 % (0-9) H Eosinophils (%) (Auto) 2 % (0-3) Basophils (%) (Auto) 1 % (0-3) Neutrophils # (Auto) 4.6 x10^3uL (1.8-7.7) Lymphocytes # (Auto) 2.6 x10^3/uL (1.0-4.8) Monocytes # (Auto) 0.8 x10^3/uL (0.0-1.1) Eosinophils # (Auto) 0.2 x10^3/uL (0.0-0.7) Basophils # (Auto) 0.0 x10^3/uL (0.0-0.2) Sodium Level 145 mmol/L (136-145) Potassium Level 4.3 mmol/L (3.5-5.1) Chloride Level 108 mmol/L (98-107) H Carbon Dioxide Level 30 mmol/L (21-32) Anion Gap 7 (6-14) Blood Urea Nitrogen 28 mg/dL (7-20) H Creatinine 1.0 mg/dL (0.6-1.0) Estimated GFR (Cockcroft-Gault) 52.8 Glucose Level 103 mg/dL (70-99) H Calcium Level 8.4 mg/dL (8.5-10.1) L Creatine Kinase 81 U/L (26-192) Test 08/16/21 23:00 08/17/21 06:00 08/17/21 07:07 Urine Collection Type Unknown Urine Color Yellow Urine Clarity Clear Urine pH 5.5 Urine Specific [place] 1.025 Urine Protein Neg (NEG-TRACE) Urine Glucose (UA) Neg mg/dL (NEG) Urine Ketones (Stick) Trace mg/dL (NEG) Urine Blood Neg (NEG) Urine Nitrite Neg (NEG) Urine Bilirubin Neg (NEG) Urine Urobilinogen Dipstick 0.2 mg/dL (0.2 mg/dL) Urine Leukocyte Esterase Trace (NEG) Urine RBC 0 /HPF (0-2) Urine WBC 5-10 /HPF (0-4) Urine Squamous Epithelial Cells Occ /LPF Urine Bacteria 0 /HPF (0-FEW) Urine Yeast Present /HPF HD-Voo-T-Type Natriuretic Peptide 3927 pg/mL (0-449) H Glucose (Fingerstick) 74 mg/dL (70-99) Current Medications: Meds: Laboratory Tests Test 08/16/21 11:35 08/16/21 16:18 08/16/21 19:26 08/16/21 20:08 Glucose (Fingerstick) 121 mg/dL 119 mg/dL 106 mg/dL White Blood Count 8.3 x10^3/uL Red Blood Count 3.60 x10^6/uL Hemoglobin 9.7 g/dL Hematocrit 30.6 % Mean Corpuscular Volume 85 fL Mean Corpuscular Hemoglobin 27 pg Mean Corpuscular Hemoglobin Concent 32 g/dL Red Cell Distribution Width 15.4 % Platelet Count 182 x10^3/uL Neutrophils (%) (Auto) 56 % Lymphocytes (%) (Auto) 32 % Monocytes (%) (Auto) 10 % Eosinophils (%) (Auto) 2 % Basophils (%) (Auto) 1 % Neutrophils # (Auto) 4.6 x10^3uL Lymphocytes # (Auto) 2.6 x10^3/uL Monocytes # (Auto) 0.8 x10^3/uL Eosinophils # (Auto) 0.2 x10^3/uL Basophils # (Auto) 0.0 x10^3/uL Sodium Level 145 mmol/L Potassium Level 4.3 mmol/L Chloride Level 108 mmol/L Carbon Dioxide Level 30 mmol/L Anion Gap 7 Blood Urea Nitrogen 28 mg/dL Creatinine 1.0 mg/dL Estimated GFR (Cockcroft-Gault) 52.8 Glucose Level 103 mg/dL Calcium Level 8.4 mg/dL Creatine Kinase 81 U/L Test 08/16/21 23:00 08/17/21 06:00 08/17/21 07:07 Urine Collection Type Unknown Urine Color Yellow Urine Clarity Clear Urine pH 5.5 Urine Specific [place] 1.025 Urine Protein Neg Urine Glucose (UA) Neg mg/dL Urine Ketones (Stick) Trace mg/dL Urine Blood Neg Urine Nitrite Neg Urine Bilirubin Neg Urine Urobilinogen Dipstick 0.2 mg/dL Urine Leukocyte Esterase Trace Urine RBC 0 /HPF Urine WBC 5-10 /HPF Urine Squamous Epithelial Cells Occ /LPF Urine Bacteria 0 /HPF Urine Yeast Present /HPF NC-Cmz-V-Type Natriuretic Peptide 3927 pg/mL Glucose (Fingerstick) 74 mg/dL Current Medications Medications (Trade) Dose Ordered Sig/Richard Route PRN Reason Start Time Stop Time Status Last Admin Dose Admin Influenza Virus Vaccine Quadrival (Flulaval Quad Syringe) 0.5 ml ONCE ONCE VAX IM 07/17/21 09:00 07/17/21 09:01 DC 07/17/21 10:00 Acetaminophen (Tylenol) 650 mg PRN Q6HRS PRN PO PAIN/FEVER 07/16/21 22:45 UNV Metformin HCl (Glucophage) 1,000 mg BIDWMEALS PO 07/17/21 08:00 08/16/21 08:41 Nystatin (Mycostatin) 1 sulma PRN BID PRN TP RASH 07/16/21 22:45 Quetiapine Fumarate (SEROquel) 50 mg BID PO 07/17/21 09:00 07/18/21 10:56 DC 07/18/21 08:21 Trazodone HCl (Desyrel) 50 mg QHS PO 07/17/21 21:00 08/15/21 20:22 Non-Formulary Medication (Albuterol Sulfate (Albuterol Sulfate Neb Soln)) 1 vial QID PRN NEB SHORTNESS OF AIR 07/16/21 22:45 UNV Non-Formulary Medication (Insulin Aspart (Insulin Aspart Flexpen)) 100 unit PRN AFTMEALHC PRN SQ ELEVATED BLOOD SUGAR 07/16/21 22:45 UNV Acetaminophen (Tylenol) 650 mg PRN Q6HRS PRN PO MILD PAIN / TEMP > 100.3'F 07/16/21 22:45 08/12/21 08:21 Multi-Ingredient Ointment (Analgesic [place]) 1 sulma PRN QID PRN TP MUSCLE PAIN 07/16/21 22:45 Al Hydroxide/Mg Hydroxide (Mylanta Plus Xs) 15 ml PRN AFTMEALHC PRN PO DYSPEPSIA 07/16/21 22:45 Magnesium Hydroxide (Milk Of Magnesia) 2,400 mg PRN QHS PRN PO CONSTIPATION 07/16/21 22:45 Albuterol Sulfate (Ventolin) 2.5 mg PRN Q6HRS PRN NEB SHORTNESS OF BREATH 07/16/21 23:00 07/17/21 06:25 DC Insulin Human Lispro (HumaLOG) 0-5 UNITS TIDWMEALS SQ 07/17/21 08:00 08/13/21 17:27 Dextrose (Dextrose 50%-Water Syringe) 12.5 gm PRN Q15MIN PRN IV SEE COMMENTS 07/17/21 00:15 Albuterol Sulfate (Ventolin Hfa Inhaler) 1 puff PRN Q6HRS PRN INH SHORTNESS OF BREATH 07/17/21 06:30 Risperidone (RisperDAL) 0.5 mg HS PO 07/18/21 21:00 07/21/21 19:40 DC 07/20/21 20:18 Olanzapine (ZyPREXA ZYDIS) 2.5 mg PRN Q2HR PRN PO PSYCHOSIS 07/18/21 18:15 08/12/21 22:33 Divalproex Sodium (Depakote Sprinkles) 125 mg BID@0900,1700 PO 07/21/21 09:00 07/25/21 01:54 DC 07/24/21 17:08 Risperidone (RisperDAL) 1 mg HS PO 07/21/21 21:00 07/29/21 18:23 DC 07/28/21 20:11 Trazodone HCl (Desyrel) 50 mg PRN QHS PRN PO INSOMNIA 07/21/21 19:45 08/12/21 22:33 Mirtazapine (Remeron) 7.5 mg QHS PO 07/21/21 21:00 07/22/21 19:52 DC 07/21/21 20:04 Mirtazapine (Remeron) 15 mg QHS PO 07/22/21 21:00 08/15/21 20:22 Melatonin (Melatonin) 3 mg QHS PO 07/22/21 21:00 07/23/21 20:00 DC 07/22/21 20:21 Melatonin (Melatonin) 4.5 mg QHS PO 07/23/21 21:00 08/15/21 20:22 Divalproex Sodium (Depakote Sprinkles) 250 mg BID@0900,1700 PO 07/25/21 09:00 07/28/21 19:57 DC 07/28/21 17:07 Nystatin (Nystop) 1 sulma BID TP 07/27/21 21:00 08/16/21 21:00 Divalproex Sodium (Depakote Sprinkles) 375 mg BID@0900,1700 PO 07/29/21 09:00 08/17/21 07:16 DC 08/16/21 08:41 Risperidone (RisperDAL) 0.25 mg QHS PO 07/29/21 21:00 08/09/21 19:39 DC 08/08/21 20:35 Risperidone (RisperDAL) 1 mg QHS PO 07/29/21 21:00 08/17/21 07:16 DC 08/15/21 20:22 Sertraline HCl (Zoloft) 25 mg DAILY PO 08/03/21 09:00 08/05/21 12:00 DC 08/05/21 08:32 Sertraline HCl (Zoloft) 50 mg DAILY PO 08/06/21 09:00 08/10/21 20:02 DC 08/10/21 08:48 Ascorbic Acid (Vitamin C) 500 mg BIDWMEALS PO 08/06/21 17:00 08/16/21 08:41 Ferrous Sulfate (Feosol) 325 mg BIDWMEALS PO 08/06/21 17:00 08/16/21 08:41 Risperidone (RisperDAL) 0.5 mg QHS PO 08/09/21 21:00 08/15/21 11:24 DC 08/14/21 20:07 Sertraline HCl (Zoloft) 75 mg DAILY PO 08/11/21 09:00 08/13/21 09:01 DC 08/13/21 08:15 Buspirone HCl (Buspar) 5 mg BID@0900,1700 PO 08/11/21 09:00 08/14/21 17:40 DC 08/14/21 17:22 Sertraline HCl (Zoloft) 100 mg DAILY PO 08/14/21 09:00 08/16/21 08:40 Buspirone HCl (Buspar) 10 mg BID@0900,1700 PO 08/14/21 17:45 08/14/21 17:56 DC Buspirone HCl (Buspar) 10 mg BID@0900,1700 PO 08/15/21 09:00 08/17/21 07:16 DC 08/16/21 08:41 Risperidone (RisperDAL) 0.5 mg 1500 PO 08/15/21 15:00 08/17/21 07:16 DC 08/15/21 15:37 Risperidone (RisperDAL) 0.25 mg DAILY PO 08/15/21 11:30 08/17/21 07:16 DC 08/16/21 08:41 I have reviewed the current psychotropics carefully including drug interactions. Risk benefit ratio favors no change other than as noted in my dictated progress note. Diagnosis: Problems: (1) Impulse control disorder, unspecified (2) Anxiety disorder, unspecified (3) Dementia, vascular, with depression (4) Dementia, vascular, with delusions (5) Dementia in Alzheimer's disease with depression (6) Dementia in Alzheimer's disease with delusions (7) Dementia of the Alzheimer's type with early onset with behavioral disturbance (8) Major neurocognitive disorder SOO BAIRES MD Aug 17, 2021 07:17
[2021-08-17] MEDS: metFORMIN 500 MG TABLET PO SCH ×2 (08:00→17:00)
[2021-08-17] MEDS: INSULIN LISPRO 300 UNITS/3 ML VIAL. SQ SCH ×3 (08:00→17:00)
[2021-08-17] MEDS: NYSTATIN TOPICAL POWDER 15GM BOTTLE. TP SCH ×2 (09:00→19:50)
[2021-08-17] MEDS ORDERED: FUROSEMIDE 80 MG TABLET PO SCH (09:45)
--- NOTE | 2021-08-17 09:57 | EKG ---
[address] [address] Test Date: 2021-08-17 Test Time: 09:40:05 Pat Name: SPENCER ANDRADE Department: Room: [address] [place] [address] Gender: F Rn Referral: : [phone] Requested By: SOO BAIRES Order Number: [id number] Reading MD: Abhi Ervin MD Measurements Intervals [place] Rate: P: NV: QRS: QRSD: T: QT: QTc: Interpretive Statements SR ANTERIOR ISCHEMIA POSSIBLE Electronically Signed On 09-02-2021 16:11:43 PLANOGRAPH OPERATOR by Abhi Ervin MD
[2021-08-17] MEDS: SERTRALINE 25 MG TABLET. PO SCH (10:31)
[2021-08-17] MEDS: ASCORBIC ACID 500 MG TABLET PO SCH ×2 (10:32→17:48)
[2021-08-17] MEDS: FERROUS SULFATE 325 MG TABLET. PO SCH ×2 (10:32→17:48)
[2021-08-17 15:01] VITALS: BP 102/55
--- NOTE | 2021-08-17 15:57 | NUR ---
Nursing note: Pt asleep in her bed at shift change, difficult to arouse, but was eventually able to wake pt up enough to drink a little bit of orange juice since her blood sugar was 74 and she was not willing to get out of bed to go to breakfast. Dr. Crouch rounded this morning and assessed pt and reviewed all labs ordered. New orders received for Lasix 80mg 1x now and he will reassess her tomorrow. Pt was compliant with taking AM meds crushed in pudding and was able to get up for lunch. Pt has been able to void on her own this shift. She is currently propelling herself down the hallway. Will continue to monitor.
[2021-08-17] MEDS: MIRTAZAPINE 15 MG TABLET PO SCH (19:51)
[2021-08-17] MEDS: traZODone 50 MG TABLET. PO SCH (19:51)
[2021-08-17] MEDS: MELATONIN 3 MG TABLET PO SCH (19:51)
--- NOTE | 2021-08-17 20:51 | PDOC ---
Exam Note: [place] Note: Please also refer to the separate dictated note~for this date of service dictated separately.~Patient seen individually. Discussed the patient with Nursing staff reviewed the chart.~Reviewed interim history and current functioning. Reviewed vital signs,~Labs/ Radiology~and current medications noted below. Continue current treatment with the changes noted in the dictated addendum note Assessment: Vital Signs/I&O: Vital Signs Date Time Temp Pulse Resp B/P (MAP) Pulse Ox O2 Delivery O2 Flow Rate FiO2 08/17/21 15:01 97.8 68 20 102/55 (71) 87 08/17/21 06:49 2.0 08/11/21 11:51 Room Air I & O 08/16/21 08/16/21 08/17/21 14:59 22:59 06:59 Intake Total 0 ml 0 ml Balance 0 ml 0 ml Labs: Laboratory Tests Test 08/16/21 23:00 08/17/21 05:45 08/17/21 06:00 08/17/21 07:07 Urine Collection Type Unknown Urine Color Yellow Urine Clarity Clear Urine pH 5.5 Urine Specific [place] 1.025 Urine Protein Neg (NEG-TRACE) Urine Glucose (UA) Neg mg/dL (NEG) Urine Ketones (Stick) Trace mg/dL (NEG) Urine Blood Neg (NEG) Urine Nitrite Neg (NEG) Urine Bilirubin Neg (NEG) Urine Urobilinogen Dipstick 0.2 mg/dL (0.2 mg/dL) Urine Leukocyte Esterase Trace (NEG) Urine RBC 0 /HPF (0-2) Urine WBC 5-10 /HPF (0-4) Urine Squamous Epithelial Cells Occ /LPF Urine Bacteria 0 /HPF (0-FEW) Urine Yeast Present /HPF SARS-CoV-2 (PCR) Not detected (NOT DETECTD) LP-Htc-N-Type Natriuretic Peptide 3927 pg/mL (0-449) H Glucose (Fingerstick) 74 mg/dL (70-99) Test 08/17/21 07:46 08/17/21 11:29 08/17/21 12:22 08/17/21 16:30 Prothrombin Time 10.6 SEC (9.4-11.4) Prothrombin Time INR 1.0 (0.9-1.1) Glucose (Fingerstick) 67 mg/dL (70-99) L 102 mg/dL (70-99) H 91 mg/dL (70-99) Test 08/17/21 19:13 Glucose (Fingerstick) 160 mg/dL (70-99) H Current Medications: Meds: Laboratory Tests Test 08/16/21 23:00 08/17/21 05:45 08/17/21 06:00 08/17/21 07:07 Urine Collection Type Unknown Urine Color Yellow Urine Clarity Clear Urine pH 5.5 Urine Specific [place] 1.025 Urine Protein Neg Urine Glucose (UA) Neg mg/dL Urine Ketones (Stick) Trace mg/dL Urine Blood Neg Urine Nitrite Neg Urine Bilirubin Neg Urine Urobilinogen Dipstick 0.2 mg/dL Urine Leukocyte Esterase Trace Urine RBC 0 /HPF Urine WBC 5-10 /HPF Urine Squamous Epithelial Cells Occ /LPF Urine Bacteria 0 /HPF Urine Yeast Present /HPF Coronavirus (COVID-19)(PCR) Not detected PS-Wyz-T-Type Natriuretic Peptide 3927 pg/mL Glucose (Fingerstick) 74 mg/dL Test 08/17/21 07:46 08/17/21 11:29 08/17/21 12:22 08/17/21 16:30 Prothrombin Time 10.6 SEC Prothromb Time International Ratio 1.0 Glucose (Fingerstick) 67 mg/dL 102 mg/dL 91 mg/dL Test 08/17/21 19:13 Glucose (Fingerstick) 160 mg/dL Current Medications Medications (Trade) Dose Ordered Sig/Richard Route PRN Reason Start Time Stop Time Status Last Admin Dose Admin Influenza Virus Vaccine Quadrival (Flulaval Quad [id number] Syringe) 0.5 ml ONCE ONCE VAX IM 07/17/21 09:00 07/17/21 09:01 DC 07/17/21 10:00 Acetaminophen (Tylenol) 650 mg PRN Q6HRS PRN PO PAIN/FEVER 07/16/21 22:45 UNV Metformin HCl (Glucophage) 1,000 mg BIDWMEALS PO 07/17/21 08:00 08/16/21 08:41 Nystatin (Mycostatin) 1 sulma PRN BID PRN TP RASH 07/16/21 22:45 Quetiapine Fumarate (SEROquel) 50 mg BID PO 07/17/21 09:00 07/18/21 10:56 DC 07/18/21 08:21 Trazodone HCl (Desyrel) 50 mg QHS PO 07/17/21 21:00 08/17/21 19:51 Non-Formulary Medication (Albuterol Sulfate (Albuterol Sulfate Neb Soln)) 1 vial QID PRN NEB SHORTNESS OF AIR 07/16/21 22:45 UNV Non-Formulary Medication (Insulin Aspart (Insulin Aspart Flexpen)) 100 unit PRN AFTMEALHC PRN SQ ELEVATED BLOOD SUGAR 07/16/21 22:45 UNV Acetaminophen (Tylenol) 650 mg PRN Q6HRS PRN PO MILD PAIN / TEMP > 100.3'F 07/16/21 22:45 08/12/21 08:21 Multi-Ingredient Ointment (Analgesic [place]) 1 sulma PRN QID PRN TP MUSCLE PAIN 07/16/21 22:45 Al Hydroxide/Mg Hydroxide (Mylanta Plus Xs) 15 ml PRN AFTMEALHC PRN PO DYSPEPSIA 07/16/21 22:45 Magnesium Hydroxide (Milk Of Magnesia) 2,400 mg PRN QHS PRN PO CONSTIPATION 07/16/21 22:45 Albuterol Sulfate (Ventolin) 2.5 mg PRN Q6HRS PRN NEB SHORTNESS OF BREATH 07/16/21 23:00 07/17/21 06:25 DC Insulin Human Lispro (HumaLOG) 0-5 UNITS TIDWMEALS SQ 07/17/21 08:00 08/13/21 17:27 Dextrose (Dextrose 50%-Water Syringe) 12.5 gm PRN Q15MIN PRN IV SEE COMMENTS 07/17/21 00:15 Albuterol Sulfate (Ventolin Hfa Inhaler) 1 puff PRN Q6HRS PRN INH SHORTNESS OF BREATH 07/17/21 06:30 Risperidone (RisperDAL) 0.5 mg HS PO 07/18/21 21:00 07/21/21 19:40 DC 07/20/21 20:18 Olanzapine (ZyPREXA ZYDIS) 2.5 mg PRN Q2HR PRN PO PSYCHOSIS 07/18/21 18:15 08/12/21 22:33 Divalproex Sodium (Depakote Sprinkles) 125 mg BID@0900,1700 PO 07/21/21 09:00 07/25/21 01:54 DC 07/24/21 17:08 Risperidone (RisperDAL) 1 mg HS PO 07/21/21 21:00 07/29/21 18:23 DC 07/28/21 20:11 Trazodone HCl (Desyrel) 50 mg PRN QHS PRN PO INSOMNIA 07/21/21 19:45 08/12/21 22:33 Mirtazapine (Remeron) 7.5 mg QHS PO 07/21/21 21:00 07/22/21 19:52 DC 07/21/21 20:04 Mirtazapine (Remeron) 15 mg QHS PO 07/22/21 21:00 08/17/21 19:51 Melatonin (Melatonin) 3 mg QHS PO 07/22/21 21:00 07/23/21 20:00 DC 07/22/21 20:21 Melatonin (Melatonin) 4.5 mg QHS PO 07/23/21 21:00 08/17/21 19:51 Divalproex Sodium (Depakote Sprinkles) 250 mg BID@0900,1700 PO 07/25/21 09:00 07/28/21 19:57 DC 07/28/21 17:07 Nystatin (Nystop) 1 sulma BID TP 07/27/21 21:00 08/17/21 19:50 Divalproex Sodium (Depakote Sprinkles) 375 mg BID@0900,1700 PO 07/29/21 09:00 08/17/21 07:16 DC 08/16/21 08:41 Risperidone (RisperDAL) 0.25 mg QHS PO 07/29/21 21:00 08/09/21 19:39 DC 08/08/21 20:35 Risperidone (RisperDAL) 1 mg QHS PO 07/29/21 21:00 08/17/21 07:16 DC 08/15/21 20:22 Sertraline HCl (Zoloft) 25 mg DAILY PO 08/03/21 09:00 08/05/21 12:00 DC 08/05/21 08:32 Sertraline HCl (Zoloft) 50 mg DAILY PO 08/06/21 09:00 08/10/21 20:02 DC 08/10/21 08:48 Ascorbic Acid (Vitamin C) 500 mg BIDWMEALS PO 08/06/21 17:00 08/17/21 17:48 Ferrous Sulfate (Feosol) 325 mg BIDWMEALS PO 08/06/21 17:00 08/17/21 17:48 Risperidone (RisperDAL) 0.5 mg QHS PO 08/09/21 21:00 08/15/21 11:24 DC 08/14/21 20:07 Sertraline HCl (Zoloft) 75 mg DAILY PO 08/11/21 09:00 08/13/21 09:01 DC 08/13/21 08:15 Buspirone HCl (Buspar) 5 mg BID@0900,1700 PO 08/11/21 09:00 08/14/21 17:40 DC 08/14/21 17:22 Sertraline HCl (Zoloft) 100 mg DAILY PO 08/14/21 09:00 08/17/21 10:31 Buspirone HCl (Buspar) 10 mg BID@0900,1700 PO 08/14/21 17:45 08/14/21 17:56 DC Buspirone HCl (Buspar) 10 mg BID@0900,1700 PO 08/15/21 09:00 08/17/21 07:16 DC 08/16/21 08:41 Risperidone (RisperDAL) 0.5 mg 1500 PO 08/15/21 15:00 08/17/21 07:16 DC 08/15/21 15:37 Risperidone (RisperDAL) 0.25 mg DAILY PO 08/15/21 11:30 08/17/21 07:16 DC 08/16/21 08:41 Furosemide (Lasix) 80 mg 1X PO 08/17/21 09:45 08/17/21 10:32 Current Medications Medications (Trade) Dose Ordered Sig/Richard Route PRN Reason Start Time Stop Time Status Last Admin Dose Admin Furosemide (Lasix) 80 mg 1X PO 08/17/21 09:45 08/17/21 10:32 I have reviewed the current psychotropics carefully including drug interactions. Risk benefit ratio favors no change other than as noted in my dictated progress note. Diagnosis: Problems: (1) Impulse control disorder, unspecified (2) Anxiety disorder, unspecified (3) Dementia, vascular, with depression (4) Dementia, vascular, with delusions (5) Dementia in Alzheimer's disease with depression (6) Dementia in Alzheimer's disease with delusions (7) Dementia of the Alzheimer's type with early onset with behavioral disturbance (8) Major neurocognitive disorder SOO BAIRES MD Aug 17, 2021 20:51
--- NOTE | 2021-08-17 23:30 | NUR ---
Patient located in the day room on assumption of care, sitting in her wheelchair. She is more alert and vocal than she was the previous evening, but still not back at baseline. Lung sounds diminished with fine crackles noted in bases bilaterally. Vital signs within normal limits with exception of elevated respiratory rate of 26. She remains on 2L of O2 via nasal cannula, maintaining sats between 90-95%. Bowel sounds remain hypoactive and she has not had a bowel movement so far this shift. She took her medications crushed in pudding and was cooperative with HS care. She appears to be sleeping comfortably at present time. Will continue to monitor.
[2021-08-18 05:41] VITALS: BP 129/63
[2021-08-18] MEDS: INSULIN LISPRO 300 UNITS/3 ML VIAL. SQ SCH ×3 (08:00→17:00)
[2021-08-18] MEDS: metFORMIN 500 MG TABLET PO SCH ×2 (08:00→17:12)
[2021-08-18] MEDS: SERTRALINE 25 MG TABLET. PO SCH (09:00)
[2021-08-18] MEDS: NYSTATIN TOPICAL POWDER 15GM BOTTLE. TP SCH ×2 (09:00→19:38)
[2021-08-18] MEDS: FERROUS SULFATE 325 MG TABLET. PO SCH ×2 (09:00→17:12)
[2021-08-18] MEDS: ASCORBIC ACID 500 MG TABLET PO SCH ×2 (09:00→17:12)
[2021-08-18] MEDS ORDERED: FUROSEMIDE 80 MG TABLET PO SCH (11:30)
[2021-08-18] MEDS ORDERED: MAGNESIUM CITRATE 296 ML SOLUTION. PO ONE (11:30)
--- NOTE | 2021-08-18 14:33 | NUR ---
Nursing note: Patient was in the dinning room for morning medications & assessment. She is compliant with medications taken crushed/floated in pudding. She is A/O to self. She yells out unprovoked, demanding, as well as sarcastic. Patient propels self in w/c or uses walker, however she doesn't always participate requiring a 2:1 transfer assist. She is confused, hyperverbal, resistive to cares, disorganized, & delusional. She has been propelling self through the [place], refused to go to day room to participate in group. New orders received for Lasix 80mg 1X now, she was able to void on her own. Bowel sounds hypoactive, new order for mag citrate, no KUB ordered at this time. She is currently sitting in w/c in [place]. Will continue to monitor. Addendum: 08/18/21 at 1444 by SAMUEL WASHINGTON RN RN Patient has had a nonproductive cough. Additionally Dr Crouch took her off oxygen as she has a Sa02 of 90% or above on room air.
[2021-08-18 15:42] VITALS: BP 124/65
[2021-08-18] MEDS: MIRTAZAPINE 15 MG TABLET PO SCH (19:38)
[2021-08-18] MEDS: MELATONIN 3 MG TABLET PO SCH (19:38)
[2021-08-18] MEDS: traZODone 50 MG TABLET. PO SCH (19:38)
--- NOTE | 2021-08-18 20:38 | PDOC ---
Exam Note: [place] Note: Please also refer to the separate dictated note~for this date of service dictated separately.~Patient seen individually. Discussed the patient with Nursing staff reviewed the chart.~Reviewed interim history and current functioning. Reviewed vital signs,~Labs/ Radiology~and current medications noted below. Continue current treatment with the changes noted in the dictated addendum note Assessment: Vital Signs/I&O: Vital Signs Date Time Temp Pulse Resp B/P (MAP) Pulse Ox O2 Delivery O2 Flow Rate FiO2 08/18/21 15:42 98.5 62 20 124/65 (84) 98 08/18/21 05:41 2.0 I & O 08/17/21 08/17/21 08/18/21 15:00 23:00 07:00 Intake Total 60 ml 300 ml Output Total 1250 ml Balance 60 ml 300 ml -1250 ml Labs: Laboratory Tests Test 08/18/21 07:18 08/18/21 11:32 08/18/21 16:58 08/18/21 19:03 Glucose (Fingerstick) 111 mg/dL (70-99) H 213 mg/dL (70-99) H 144 mg/dL (70-99) H 151 mg/dL (70-99) H Current Medications: Meds: Laboratory Tests Test 08/18/21 07:18 08/18/21 11:32 08/18/21 16:58 08/18/21 19:03 Glucose (Fingerstick) 111 mg/dL 213 mg/dL 144 mg/dL 151 mg/dL Current Medications Medications (Trade) Dose Ordered Sig/Richard Route PRN Reason Start Time Stop Time Status Last Admin Dose Admin Influenza Virus Vaccine Quadrival (Flulaval Quad [id number] Syringe) 0.5 ml ONCE ONCE VAX IM 07/17/21 09:00 07/17/21 09:01 DC 07/17/21 10:00 Acetaminophen (Tylenol) 650 mg PRN Q6HRS PRN PO PAIN/FEVER 07/16/21 22:45 UNV Metformin HCl (Glucophage) 1,000 mg BIDWMEALS PO 07/17/21 08:00 08/18/21 17:12 Nystatin (Mycostatin) 1 sulma PRN BID PRN TP RASH 07/16/21 22:45 Quetiapine Fumarate (SEROquel) 50 mg BID PO 07/17/21 09:00 07/18/21 10:56 DC 07/18/21 08:21 Trazodone HCl (Desyrel) 50 mg QHS PO 07/17/21 21:00 08/18/21 19:38 Non-Formulary Medication (Albuterol Sulfate (Albuterol Sulfate Neb Soln)) 1 vial QID PRN NEB SHORTNESS OF AIR 07/16/21 22:45 UNV Non-Formulary Medication (Insulin Aspart (Insulin Aspart Flexpen)) 100 unit PRN AFTMEALHC PRN SQ ELEVATED BLOOD SUGAR 07/16/21 22:45 UNV Acetaminophen (Tylenol) 650 mg PRN Q6HRS PRN PO MILD PAIN / TEMP > 100.3'F 07/16/21 22:45 08/12/21 08:21 Multi-Ingredient Ointment (Analgesic [place]) 1 sulma PRN QID PRN TP MUSCLE PAIN 07/16/21 22:45 Al Hydroxide/Mg Hydroxide (Mylanta Plus Xs) 15 ml PRN AFTMEALHC PRN PO DYSPEPSIA 07/16/21 22:45 Magnesium Hydroxide (Milk Of Magnesia) 2,400 mg PRN QHS PRN PO CONSTIPATION 07/16/21 22:45 Albuterol Sulfate (Ventolin) 2.5 mg PRN Q6HRS PRN NEB SHORTNESS OF BREATH 07/16/21 23:00 07/17/21 06:25 DC Insulin Human Lispro (HumaLOG) 0-5 UNITS TIDWMEALS SQ 07/17/21 08:00 08/18/21 12:16 Dextrose (Dextrose 50%-Water Syringe) 12.5 gm PRN Q15MIN PRN IV SEE COMMENTS 07/17/21 00:15 Albuterol Sulfate (Ventolin Hfa Inhaler) 1 puff PRN Q6HRS PRN INH SHORTNESS OF BREATH 07/17/21 06:30 Risperidone (RisperDAL) 0.5 mg HS PO 07/18/21 21:00 07/21/21 19:40 DC 07/20/21 20:18 Olanzapine (ZyPREXA ZYDIS) 2.5 mg PRN Q2HR PRN PO PSYCHOSIS 07/18/21 18:15 08/12/21 22:33 Divalproex Sodium (Depakote Sprinkles) 125 mg BID@0900,1700 PO 07/21/21 09:00 07/25/21 01:54 DC 07/24/21 17:08 Risperidone (RisperDAL) 1 mg HS PO 07/21/21 21:00 07/29/21 18:23 DC 07/28/21 20:11 Trazodone HCl (Desyrel) 50 mg PRN QHS PRN PO INSOMNIA 07/21/21 19:45 08/12/21 22:33 Mirtazapine (Remeron) 7.5 mg QHS PO 07/21/21 21:00 07/22/21 19:52 DC 07/21/21 20:04 Mirtazapine (Remeron) 15 mg QHS PO 07/22/21 21:00 08/18/21 19:38 Melatonin (Melatonin) 3 mg QHS PO 07/22/21 21:00 07/23/21 20:00 DC 07/22/21 20:21 Melatonin (Melatonin) 4.5 mg QHS PO 07/23/21 21:00 08/18/21 19:38 Divalproex Sodium (Depakote Sprinkles) 250 mg BID@0900,1700 PO 07/25/21 09:00 07/28/21 19:57 DC 07/28/21 17:07 Nystatin (Nystop) 1 sulma BID TP 07/27/21 21:00 08/18/21 19:38 Divalproex Sodium (Depakote Sprinkles) 375 mg BID@0900,1700 PO 07/29/21 09:00 08/17/21 07:16 DC 08/16/21 08:41 Risperidone (RisperDAL) 0.25 mg QHS PO 07/29/21 21:00 08/09/21 19:39 DC 08/08/21 20:35 Risperidone (RisperDAL) 1 mg QHS PO 07/29/21 21:00 08/17/21 07:16 DC 08/15/21 20:22 Sertraline HCl (Zoloft) 25 mg DAILY PO 08/03/21 09:00 08/05/21 12:00 DC 08/05/21 08:32 Sertraline HCl (Zoloft) 50 mg DAILY PO 08/06/21 09:00 08/10/21 20:02 VA 08/10/21 08:48 Ascorbic Acid (Vitamin C) 500 mg BIDWMEALS PO 08/06/21 17:00 08/18/21 17:12 Ferrous Sulfate (Feosol) 325 mg BIDWMEALS PO 08/06/21 17:00 08/18/21 17:12 Risperidone (RisperDAL) 0.5 mg QHS PO 08/09/21 21:00 08/15/21 11:24 DC 08/14/21 20:07 Sertraline HCl (Zoloft) 75 mg DAILY PO 08/11/21 09:00 08/13/21 09:01 DC 08/13/21 08:15 Buspirone HCl (Buspar) 5 mg BID@0900,1700 PO 08/11/21 09:00 08/14/21 17:40 DC 08/14/21 17:22 Sertraline HCl (Zoloft) 100 mg DAILY PO 08/14/21 09:00 08/18/21 09:00 Buspirone HCl (Buspar) 10 mg BID@0900,1700 PO 08/14/21 17:45 08/14/21 17:56 DC Buspirone HCl (Buspar) 10 mg BID@0900,1700 PO 08/15/21 09:00 08/17/21 07:16 DC 08/16/21 08:41 Risperidone (RisperDAL) 0.5 mg 1500 PO 08/15/21 15:00 08/17/21 07:16 VA 08/15/21 15:37 Risperidone (RisperDAL) 0.25 mg DAILY PO 08/15/21 11:30 08/17/21 07:16 VA 08/16/21 08:41 Furosemide (Lasix) 80 mg 1X PO 08/17/21 09:45 08/17/21 10:32 Furosemide (Lasix) 80 mg 1X PO 08/18/21 11:30 Magnesium Citrate (Citroma) 296 ml 1X ONCE PO 08/18/21 11:30 08/18/21 11:31 DC 08/18/21 12:17 Current Medications Medications (Trade) Dose Ordered Sig/Richard Route PRN Reason Start Time Stop Time Status Last Admin Dose Admin Magnesium Citrate (Citroma) 296 ml 1X ONCE PO 08/18/21 11:30 08/18/21 11:31 DC 08/18/21 12:17 I have reviewed the current psychotropics carefully including drug interactions. Risk benefit ratio favors no change other than as noted in my dictated progress note. Diagnosis: Problems: (1) Impulse control disorder, unspecified (2) Anxiety disorder, unspecified (3) Dementia, vascular, with depression (4) Dementia, vascular, with delusions (5) Dementia in Alzheimer's disease with depression (6) Dementia in Alzheimer's disease with delusions (7) Dementia of the Alzheimer's type with early onset with behavioral disturbance (8) Major neurocognitive disorder SOO BAIRES MD Aug 18, 2021 20:38
--- NOTE | 2021-08-18 23:00 | NUR ---
Patient is in the hallway on assumption of care, propelling around in her wheelchair. She is disorganized, confused; behavior is nearly back to baseline. Yelling out intermittently, sometimes appears to be having a conversation with someone who isn't there. Talked to this nurse about how irritating it is to live with family, that they get on her nerves. She was compliant with meds crushed in pudding, and irritable but cooperative with shower and HS cares. Lung sounds remain diminished with fine crackles noted in bases bilaterally. She appears to be sleeping comfortably at present time. Will continue to monitor.
[2021-08-19] MEDS: traZODone 50 MG TABLET. PO PRN (01:18)
[2021-08-19 05:57] VITALS: BP 107/60
[2021-08-19] MEDS: INSULIN LISPRO 300 UNITS/3 ML VIAL. SQ SCH ×3 (08:00→17:00)
[2021-08-19] MEDS: NYSTATIN TOPICAL POWDER 15GM BOTTLE. TP SCH ×2 (08:08→21:01)
[2021-08-19] MEDS: SERTRALINE 25 MG TABLET. PO SCH (08:08)
[2021-08-19] MEDS: metFORMIN 500 MG TABLET PO SCH ×2 (08:08→17:33)
[2021-08-19] MEDS: FERROUS SULFATE 325 MG TABLET. PO SCH ×2 (08:08→17:33)
[2021-08-19] MEDS: ASCORBIC ACID 500 MG TABLET PO SCH ×2 (08:08→17:33)
--- NOTE | 2021-08-19 08:21 | PDOC ---
Exam Note: [place] Note: This note is a late entry for 08/17/2021 covers elements not covered in my initial note. Subjective: The patient was seen individually in the evening of 08/17/2021 with Debbie TANG, discussed and reviewed the chart. The patient slept 7-1/4 hours previous night. The patient is somewhat sedated in the morning, had not had any bowel movement or urinated. I was called as an emergency by nursing staff. BNP is quite elevated. She has received 80 mg Lasix. Chest x-ray has been repeated as it showed some congestion. We did go ahead and stopped the Risperdal, Depak ote and BuSpar given her sedation and changed in medical status. By the time I met with her in the evening, she was more alert and interactive, somewhat yelling again. Review of Systems: Ambulation impaired, in wheelchair. No CV, , pulmonary, eye, ENT system symptoms on review. Reliability poor. Mental Status Exam: The patient is oriented to herself. Insight and judgment, recent and remote memory, attention and concentration, fund of knowledge is poor consistent with her diagnosis. Laboratory Data: Reviewed. Impression: Major neurocognitive disorder Alzheimer, vascular, with delusions, depression, behavioral disturbance. Anxiety disorder unspecified. Impulse control disorder unspecified. Plan: Continue current psychotropics. Stop the Risperdal, Depakote and BuSPar as noted. Maintain trazodone, Zyprexa p.r.n., Remeron 15 mg h.s., melatonin at night and Zoloft 100 mg a day. Adjust further as clinically indicated. Assessment: Vital Signs/I&O: Vital Signs Date Time Temp Pulse Resp B/P (MAP) Pulse Ox O2 Delivery O2 Flow Rate FiO2 08/19/21 05:57 97.4 87 20 107/60 (76) 91 08/18/21 05:41 2.0 I & O 08/18/21 08/18/21 08/19/21 15:00 23:00 07:00 Intake Total 480 ml 360 ml Balance 480 ml 360 ml Labs: Laboratory Tests Test 08/18/21 11:32 08/18/21 16:58 08/18/21 19:03 08/19/21 07:32 Glucose (Fingerstick) 213 mg/dL (70-99) H 144 mg/dL (70-99) H 151 mg/dL (70-99) H 117 mg/dL (70-99) H Current Medications: Meds: Laboratory Tests Test 08/18/21 11:32 08/18/21 16:58 08/18/21 19:03 08/19/21 07:32 Glucose (Fingerstick) 213 mg/dL 144 mg/dL 151 mg/dL 117 mg/dL Current Medications Medications (Trade) Dose Ordered Sig/Richard Route PRN Reason Start Time Stop Time Status Last Admin Dose Admin Influenza Virus Vaccine Quadrival (Flulaval Quad Syringe) 0.5 ml ONCE ONCE VAX IM 07/17/21 09:00 07/17/21 09:01 DC 07/17/21 10:00 Acetaminophen (Tylenol) 650 mg PRN Q6HRS PRN PO PAIN/FEVER 07/16/21 22:45 UNV Metformin HCl (Glucophage) 1,000 mg BIDWMEALS PO 07/17/21 08:00 08/19/21 08:08 Nystatin (Mycostatin) 1 sulma PRN BID PRN TP RASH 07/16/21 22:45 Quetiapine Fumarate (SEROquel) 50 mg BID PO 07/17/21 09:00 07/18/21 10:56 DC 07/18/21 08:21 Trazodone HCl (Desyrel) 50 mg QHS PO 07/17/21 21:00 08/18/21 19:38 Non-Formulary Medication (Albuterol Sulfate (Albuterol Sulfate Neb Soln)) 1 vial QID PRN NEB SHORTNESS OF AIR 07/16/21 22:45 UNV Non-Formulary Medication (Insulin Aspart (Insulin Aspart Flexpen)) 100 unit PRN AFTMEALHC PRN SQ ELEVATED BLOOD SUGAR 07/16/21 22:45 UNV Acetaminophen (Tylenol) 650 mg PRN Q6HRS PRN PO MILD PAIN / TEMP > 100.3'F 07/16/21 22:45 08/12/21 08:21 Multi-Ingredient Ointment (Analgesic [place]) 1 sulma PRN QID PRN TP MUSCLE PAIN 07/16/21 22:45 Al Hydroxide/Mg Hydroxide (Mylanta Plus Xs) 15 ml PRN AFTMEALHC PRN PO DYSPEPSIA 07/16/21 22:45 Magnesium Hydroxide (Milk Of Magnesia) 2,400 mg PRN QHS PRN PO CONSTIPATION 07/16/21 22:45 Albuterol Sulfate (Ventolin) 2.5 mg PRN Q6HRS PRN NEB SHORTNESS OF BREATH 07/16/21 23:00 07/17/21 06:25 DC Insulin Human Lispro (HumaLOG) 0-5 UNITS TIDWMEALS SQ 07/17/21 08:00 08/18/21 12:16 Dextrose (Dextrose 50%-Water Syringe) 12.5 gm PRN Q15MIN PRN IV SEE COMMENTS 07/17/21 00:15 Albuterol Sulfate (Ventolin Hfa Inhaler) 1 puff PRN Q6HRS PRN INH SHORTNESS OF BREATH 07/17/21 06:30 Risperidone (RisperDAL) 0.5 mg HS PO 07/18/21 21:00 07/21/21 19:40 DC 07/20/21 20:18 Olanzapine (ZyPREXA ZYDIS) 2.5 mg PRN Q2HR PRN PO PSYCHOSIS 07/18/21 18:15 08/12/21 22:33 Divalproex Sodium (Depakote Sprinkles) 125 mg BID@0900,1700 PO 07/21/21 09:00 07/25/21 01:54 DC 07/24/21 17:08 Risperidone (RisperDAL) 1 mg HS PO 07/21/21 21:00 07/29/21 18:23 DC 07/28/21 20:11 Trazodone HCl (Desyrel) 50 mg PRN QHS PRN PO INSOMNIA 07/21/21 19:45 08/19/21 01:18 Mirtazapine (Remeron) 7.5 mg QHS PO 07/21/21 21:00 07/22/21 19:52 DC 07/21/21 20:04 Mirtazapine (Remeron) 15 mg QHS PO 07/22/21 21:00 08/18/21 19:38 Melatonin (Melatonin) 3 mg QHS PO 07/22/21 21:00 07/23/21 20:00 DC 07/22/21 20:21 Melatonin (Melatonin) 4.5 mg QHS PO 07/23/21 21:00 08/18/21 19:38 Divalproex Sodium (Depakote Sprinkles) 250 mg BID@0900,1700 PO 07/25/21 09:00 07/28/21 19:57 DC 07/28/21 17:07 Nystatin (Nystop) 1 sulma BID TP 07/27/21 21:00 08/19/21 08:08 Divalproex Sodium (Depakote Sprinkles) 375 mg BID@0900,1700 PO 07/29/21 09:00 08/17/21 07:16 DC 08/16/21 08:41 Risperidone (RisperDAL) 0.25 mg QHS PO 07/29/21 21:00 08/09/21 19:39 DC 08/08/21 20:35 Risperidone (RisperDAL) 1 mg QHS PO 07/29/21 21:00 08/17/21 07:16 DC 08/15/21 20:22 Sertraline HCl (Zoloft) 25 mg DAILY PO 08/03/21 09:00 08/05/21 12:00 DC 08/05/21 08:32 Sertraline HCl (Zoloft) 50 mg DAILY PO 08/06/21 09:00 08/10/21 20:02 DC 08/10/21 08:48 Ascorbic Acid (Vitamin C) 500 mg BIDWMEALS PO 08/06/21 17:00 08/19/21 08:08 Ferrous Sulfate (Feosol) 325 mg BIDWMEALS PO 08/06/21 17:00 08/19/21 08:08 Risperidone (RisperDAL) 0.5 mg QHS PO 08/09/21 21:00 08/15/21 11:24 DC 08/14/21 20:07 Sertraline HCl (Zoloft) 75 mg DAILY PO 08/11/21 09:00 08/13/21 09:01 DC 08/13/21 08:15 Buspirone HCl (Buspar) 5 mg BID@0900,1700 PO 08/11/21 09:00 08/14/21 17:40 DC 08/14/21 17:22 Sertraline HCl (Zoloft) 100 mg DAILY PO 08/14/21 09:00 08/19/21 08:08 Buspirone HCl (Buspar) 10 mg BID@0900,1700 PO 08/14/21 17:45 08/14/21 17:56 DC Buspirone HCl (Buspar) 10 mg BID@0900,1700 PO 08/15/21 09:00 08/17/21 07:16 DC 08/16/21 08:41 Risperidone (RisperDAL) 0.5 mg 1500 PO 08/15/21 15:00 08/17/21 07:16 DC 08/15/21 15:37 Risperidone (RisperDAL) 0.25 mg DAILY PO 08/15/21 11:30 08/17/21 07:16 DC 08/16/21 08:41 Furosemide (Lasix) 80 mg 1X PO 08/17/21 09:45 08/17/21 10:32 Furosemide (Lasix) 80 mg 1X PO 08/18/21 11:30 Magnesium Citrate (Citroma) 296 ml 1X ONCE PO 08/18/21 11:30 08/18/21 11:31 DC 08/18/21 12:17 Current Medications Medications (Trade) Dose Ordered Sig/Richard Route PRN Reason Start Time Stop Time Status Last Admin Dose Admin Magnesium Citrate (Citroma) 296 ml 1X ONCE PO 08/18/21 11:30 08/18/21 11:31 DC 08/18/21 12:17 I have reviewed the current psychotropics carefully including drug interactions. Risk benefit ratio favors no change other than as noted in my dictated progress note. Diagnosis: Problems: (1) Impulse control disorder, unspecified (2) Anxiety disorder, unspecified (3) Dementia, vascular, with depression (4) Dementia, vascular, with delusions (5) Dementia in Alzheimer's disease with depression (6) Dementia in Alzheimer's disease with delusions (7) Dementia of the Alzheimer's type with early onset with behavioral dist urbance (8) Major neurocognitive disorder SOO BAIRES MD Aug 19, 2021 08:21
--- NOTE | 2021-08-19 08:36 | PDOC ---
Exam Note: [place] Note: This note is a late entry for 08/18/2021 covers elements not covered in my initial note. Subjective: The patient was seen individually in the evening of 08/18/2021 with Debbie TANG, discussed and reviewed the chart. The patient slept 7-3/4 hours previous night. The patient has once again been yelling and hollering in the hallway and during showers today. I met with her at length in her room. Review of Systems: Ambulation impaired, in wheelchair. No CV, , pulmonary, eye, ENT system symptoms on review. Mental Status Exam: The patient is oriented to herself. Insight and judgment, recent and remote memory, attention and concentration, fund of knowledge is poor consistent with her diagnosis. Laboratory Data: Reviewed. Impression: Major neurocognitive disorder Alzheimer, vascular, with delusions, depression, behavioral disturbance. Anxiety disorder unspecified. Impulse control disorder unspecified. Plan: We will watch the patient for another 24 hours and then restart psychotropics depending on her mood lability and yelling. Assessment: Vital Signs/I&O: Vital Signs Date Time Temp Pulse Resp B/P (MAP) Pulse Ox O2 Delivery O2 Flow Rate FiO2 08/19/21 05:57 97.4 87 20 107/60 (76) 91 08/18/21 05:41 2.0 I & O 08/18/21 08/18/21 08/19/21 14:59 22:59 06:59 Intake Total 480 ml 360 ml Balance 480 ml 360 ml Labs: Laboratory Tests Test 08/18/21 11:32 08/18/21 16:58 08/18/21 19:03 08/19/21 07:32 Glucose (Fingerstick) 213 mg/dL (70-99) H 144 mg/dL (70-99) H 151 mg/dL (70-99) H 117 mg/dL (70-99) H Current Medications: Meds: Laboratory Tests Test 08/18/21 11:32 08/18/21 16:58 08/18/21 19:03 08/19/21 07:32 Glucose (Fingerstick) 213 mg/dL 144 mg/dL 151 mg/dL 117 mg/dL Current Medications Medications (Trade) Dose Ordered Sig/Richard Route PRN Reason Start Time Stop Time Status Last Admin Dose Admin Influenza Virus Vaccine Quadrival (Flulaval Quad [id number] Syringe) 0.5 ml ONCE ONCE VAX IM 07/17/21 09:00 07/17/21 09:01 DC 07/17/21 10:00 Acetaminophen (Tylenol) 650 mg PRN Q6HRS PRN PO PAIN/FEVER 07/16/21 22:45 UNV Metformin HCl (Glucophage) 1,000 mg BIDWMEALS PO 07/17/21 08:00 08/19/21 08:08 Nystatin (Mycostatin) 1 sulma PRN BID PRN TP RASH 07/16/21 22:45 Quetiapine Fumarate (SEROquel) 50 mg BID PO 07/17/21 09:00 07/18/21 10:56 DC 07/18/21 08:21 Trazodone HCl (Desyrel) 50 mg QHS PO 07/17/21 21:00 08/18/21 19:38 Non-Formulary Medication (Albuterol Sulfate (Albuterol Sulfate Neb Soln)) 1 vial QID PRN NEB SHORTNESS OF AIR 07/16/21 22:45 UNV Non-Formulary Medication (Insulin Aspart (Insulin Aspart Flexpen)) 100 unit PRN AFTMEALHC PRN SQ ELEVATED BLOOD SUGAR 07/16/21 22:45 UNV Acetaminophen (Tylenol) 650 mg PRN Q6HRS PRN PO MILD PAIN / TEMP > 100.3'F 07/16/21 22:45 08/12/21 08:21 Multi-Ingredient Ointment (Analgesic [place]) 1 sulma PRN QID PRN TP MUSCLE PAIN 07/16/21 22:45 Al Hydroxide/Mg Hydroxide (Mylanta Plus Xs) 15 ml PRN AFTMEALHC PRN PO DYSPEPSIA 07/16/21 22:45 Magnesium Hydroxide (Milk Of Magnesia) 2,400 mg PRN QHS PRN PO CONSTIPATION 07/16/21 22:45 Albuterol Sulfate (Ventolin) 2.5 mg PRN Q6HRS PRN NEB SHORTNESS OF BREATH 07/16/21 23:00 07/17/21 06:25 DC Insulin Human Lispro (HumaLOG) 0-5 UNITS TIDWMEALS SQ 07/17/21 08:00 08/18/21 12:16 Dextrose (Dextrose 50%-Water Syringe) 12.5 gm PRN Q15MIN PRN IV SEE COMMENTS 07/17/21 00:15 Albuterol Sulfate (Ventolin Hfa Inhaler) 1 puff PRN Q6HRS PRN INH SHORTNESS OF BREATH 07/17/21 06:30 Risperidone (RisperDAL) 0.5 mg HS PO 07/18/21 21:00 07/21/21 19:40 DC 07/20/21 20:18 Olanzapine (ZyPREXA ZYDIS) 2.5 mg PRN Q2HR PRN PO PSYCHOSIS 07/18/21 18:15 08/12/21 22:33 Divalproex Sodium (Depakote Sprinkles) 125 mg BID@0900,1700 PO 07/21/21 09:00 07/25/21 01:54 DC 07/24/21 17:08 Risperidone (RisperDAL) 1 mg HS PO 07/21/21 21:00 07/29/21 18:23 DC 07/28/21 20:11 Trazodone HCl (Desyrel) 50 mg PRN QHS PRN PO INSOMNIA 07/21/21 19:45 08/19/21 01:18 Mirtazapine (Remeron) 7.5 mg QHS PO 07/21/21 21:00 07/22/21 19:52 DC 07/21/21 20:04 Mirtazapine (Remeron) 15 mg QHS PO 07/22/21 21:00 08/18/21 19:38 Melatonin (Melatonin) 3 mg QHS PO 07/22/21 21:00 07/23/21 20:00 DC 07/22/21 20:21 Melatonin (Melatonin) 4.5 mg QHS PO 07/23/21 21:00 08/18/21 19:38 Divalproex Sodium (Depakote Sprinkles) 250 mg BID@0900,1700 PO 07/25/21 09:00 07/28/21 19:57 DC 07/28/21 17:07 Nystatin (Nystop) 1 sulma BID TP 07/27/21 21:00 08/19/21 08:08 Divalproex Sodium (Depakote Sprinkles) 375 mg BID@0900,1700 PO 07/29/21 09:00 08/17/21 07:16 DC 08/16/21 08:41 Risperidone (RisperDAL) 0.25 mg QHS PO 07/29/21 21:00 08/09/21 19:39 DC 08/08/21 20:35 Risperidone (RisperDAL) 1 mg QHS PO 07/29/21 21:00 08/17/21 07:16 DC 08/15/21 20:22 Sertraline HCl (Zoloft) 25 mg DAILY PO 08/03/21 09:00 08/05/21 12:00 DC 08/05/21 08:32 Sertraline HCl (Zoloft) 50 mg DAILY PO 08/06/21 09:00 08/10/21 20:02 DC 08/10/21 08:48 Ascorbic Acid (Vitamin C) 500 mg BIDWMEALS PO 08/06/21 17:00 08/19/21 08:08 Ferrous Sulfate (Feosol) 325 mg BIDWMEALS PO 08/06/21 17:00 08/19/21 08:08 Risperidone (RisperDAL) 0.5 mg QHS PO 08/09/21 21:00 08/15/21 11:24 DC 08/14/21 20:07 Sertraline HCl (Zoloft) 75 mg DAILY PO 08/11/21 09:00 08/13/21 09:01 DC 08/13/21 08:15 Buspirone HCl (Buspar) 5 mg BID@0900,1700 PO 08/11/21 09:00 08/14/21 17:40 DC 08/14/21 17:22 Sertraline HCl (Zoloft) 100 mg DAILY PO 08/14/21 09:00 08/19/21 08:08 Buspirone HCl (Buspar) 10 mg BID@0900,1700 PO 08/14/21 17:45 08/14/21 17:56 DC Buspirone HCl (Buspar) 10 mg BID@0900,1700 PO 08/15/21 09:00 08/17/21 07:16 DC 08/16/21 08:41 Risperidone (RisperDAL) 0.5 mg 1500 PO 08/15/21 15:00 08/17/21 07:16 DC 08/15/21 15:37 Risperidone (RisperDAL) 0.25 mg DAILY PO 08/15/21 11:30 08/17/21 07:16 DC 08/16/21 08:41 Furosemide (Lasix) 80 mg 1X PO 08/17/21 09:45 08/17/21 10:32 Furosemide (Lasix) 80 mg 1X PO 08/18/21 11:30 Magnesium Citrate (Citroma) 296 ml 1X ONCE PO 08/18/21 11:30 08/18/21 11:31 DC 08/18/21 12:17 Current Medications Medications (Trade) Dose Ordered Sig/Richard Route PRN Reason Start Time Stop Time Status Last Admin Dose Admin Magnesium Citrate (Citroma) 296 ml 1X ONCE PO 08/18/21 11:30 08/18/21 11:31 DC 08/18/21 12:17 I have reviewed the current psychotropics carefully including drug interactions. Risk benefit ratio favors no change other than as noted in my dictated progress note. Diagnosis: Problems: (1) Impulse control disorder, unspecified (2) Anxiety disorder, unspecified (3) Dementia, vascular, with depression (4) Dementia, vascular, with delusions (5) Dementia in Alzheimer's disease with depression (6) Dementia in Alzheimer's disease with delusions (7) Dementia of the Alzheimer's type with early onset with behavioral disturbance (8) Major neurocognitive disorder SOO BAIRES MD Aug 19, 2021 08:36
--- NOTE | 2021-08-19 14:59 | NUR ---
Nursing note: Patient was in the dinning room for morning medications & assessment. She is compliant with medications taken crushed/floated in pudding. She is A/O to self. She yells out unprovoked, demanding, as well as sarcastic. Patient propels self in w/c, requires standby transfer assist, at times she may require a 2:1 transfer assist. She is confused, hyperverbal, resistive to cares, disorganized, & delusional. She has been propelling self through the [place], refused to go to day room to participate in group. She has not been able to void on her own, this nurse cathed her with 750ml clear yellow urine returned. Patient tolerated well. She has a nonproductive cough, lung sounds diminished with fine crackles in bilateral bases. She has a small skin tear on inner right thigh, staff put her to bed open to air between meals. Patient refused to get up from lunch. She is currently resting in bed with eyes closed. Will continue to monitor.
[2021-08-19 15:47] VITALS: BP 125/63
--- NOTE | 2021-08-19 20:09 | PDOC ---
Exam Note: [place] Note: Please also refer to the separate dictated note~for this date of service dictated separately.~Patient seen individually. Discussed the patient with Nursing staff reviewed the chart.~Reviewed interim history and current functioning. Reviewed vital signs,~Labs/ Radiology~and current medications noted below. Continue current treatment with the changes noted in the dictated addendum note Assessment: Vital Signs/I&O: Vital Signs Date Time Temp Pulse Resp B/P (MAP) Pulse Ox O2 Delivery O2 Flow Rate FiO2 08/19/21 15:47 97.2 67 18 125/63 (83) 98 Room Air 08/18/21 05:41 2.0 I & O 08/18/21 08/18/21 08/19/21 15:00 23:00 07:00 Intake Total 480 ml 360 ml Balance 480 ml 360 ml Labs: Laboratory Tests Test 08/19/21 07:32 08/19/21 11:50 08/19/21 17:10 08/19/21 20:03 Glucose (Fingerstick) 117 mg/dL (70-99) H 121 mg/dL (70-99) H 104 mg/dL (70-99) H 148 mg/dL (70-99) H Current Medications: Meds: Laboratory Tests Test 08/19/21 07:32 08/19/21 11:50 08/19/21 17:10 08/19/21 20:03 Glucose (Fingerstick) 117 mg/dL 121 mg/dL 104 mg/dL 148 mg/dL Current Medications Medications (Trade) Dose Ordered Sig/Richard Route PRN Reason Start Time Stop Time Status Last Admin Dose Admin Influenza Virus Vaccine Quadrival (Flulaval Quad Syringe) 0.5 ml ONCE ONCE VAX IM 07/17/21 09:00 07/17/21 09:01 DC 07/17/21 10:00 Acetaminophen (Tylenol) 650 mg PRN Q6HRS PRN PO PAIN/FEVER 07/16/21 22:45 UNV Metformin HCl (Glucophage) 1,000 mg BIDWMEALS PO 07/17/21 08:00 08/19/21 17:33 Nystatin (Mycostatin) 1 sulma PRN BID PRN TP RASH 07/16/21 22:45 Quetiapine Fumarate (SEROquel) 50 mg BID PO 07/17/21 09:00 07/18/21 10:56 DC 07/18/21 08:21 Trazodone HCl (Desyrel) 50 mg QHS PO 07/17/21 21:00 08/18/21 19:38 Non-Formulary Medication (Albuterol Sulfate (Albuterol Sulfate Neb Soln)) 1 vial QID PRN NEB SHORTNESS OF AIR 07/16/21 22:45 UNV Non-Formulary Medication (Insulin Aspart (Insulin Aspart Flexpen)) 100 unit PRN AFTMEALHC PRN SQ ELEVATED BLOOD SUGAR 07/16/21 22:45 UNV Acetaminophen (Tylenol) 650 mg PRN Q6HRS PRN PO MILD PAIN / TEMP > 100.3'F 07/16/21 22:45 08/12/21 08:21 Multi-Ingredient Ointment (Analgesic [place]) 1 sulma PRN QID PRN TP MUSCLE PAIN 07/16/21 22:45 Al Hydroxide/Mg Hydroxide (Mylanta Plus Xs) 15 ml PRN AFTMEALHC PRN PO DYSPEPSIA 07/16/21 22:45 Magnesium Hydroxide (Milk Of Magnesia) 2,400 mg PRN QHS PRN PO CONSTIPATION 07/16/21 22:45 Albuterol Sulfate (Ventolin) 2.5 mg PRN Q6HRS PRN NEB SHORTNESS OF BREATH 07/16/21 23:00 07/17/21 06:25 DC Insulin Human Lispro (HumaLOG) 0-5 UNITS TIDWMEALS SQ 07/17/21 08:00 08/18/21 12:16 Dextrose (Dextrose 50%-Water Syringe) 12.5 gm PRN Q15MIN PRN IV SEE COMMENTS 07/17/21 00:15 Albuterol Sulfate (Ventolin Hfa Inhaler) 1 puff PRN Q6HRS PRN INH SHORTNESS OF BREATH 07/17/21 06:30 Risperidone (RisperDAL) 0.5 mg HS PO 07/18/21 21:00 07/21/21 19:40 DC 07/20/21 20:18 Olanzapine (ZyPREXA ZYDIS) 2.5 mg PRN Q2HR PRN PO PSYCHOSIS 07/18/21 18:15 08/12/21 22:33 Divalproex Sodium (Depakote Sprinkles) 125 mg BID@0900,1700 PO 07/21/21 09:00 07/25/21 01:54 DC 07/24/21 17:08 Risperidone (RisperDAL) 1 mg HS PO 07/21/21 21:00 07/29/21 18:23 DC 07/28/21 20:11 Trazodone HCl (Desyrel) 50 mg PRN QHS PRN PO INSOMNIA 07/21/21 19:45 08/19/21 01:18 Mirtazapine (Remeron) 7.5 mg QHS PO 07/21/21 21:00 07/22/21 19:52 DC 07/21/21 20:04 Mirtazapine (Remeron) 15 mg QHS PO 07/22/21 21:00 08/18/21 19:38 Melatonin (Melatonin) 3 mg QHS PO 07/22/21 21:00 07/23/21 20:00 DC 07/22/21 20:21 Melatonin (Melatonin) 4.5 mg QHS PO 07/23/21 21:00 08/18/21 19:38 Divalproex Sodium (Depakote Sprinkles) 250 mg BID@0900,1700 PO 07/25/21 09:00 07/28/21 19:57 DC 07/28/21 17:07 Nystatin (Nystop) 1 sulma BID TP 07/27/21 21:00 08/19/21 08:08 Divalproex Sodium (Depakote Sprinkles) 375 mg BID@0900,1700 PO 07/29/21 09:00 08/17/21 07:16 DC 08/16/21 08:41 Risperidone (RisperDAL) 0.25 mg QHS PO 07/29/21 21:00 08/09/21 19:39 DC 08/08/21 20:35 Risperidone (RisperDAL) 1 mg QHS PO 07/29/21 21:00 08/17/21 07:16 DC 08/15/21 20:22 Sertraline HCl (Zoloft) 25 mg DAILY PO 08/03/21 09:00 08/05/21 12:00 DC 08/05/21 08:32 Sertraline HCl (Zoloft) 50 mg DAILY PO 08/06/21 09:00 08/10/21 20:02 DC 08/10/21 08:48 Ascorbic Acid (Vitamin C) 500 mg BIDWMEALS PO 08/06/21 17:00 08/19/21 17:33 Ferrous Sulfate (Feosol) 325 mg BIDWMEALS PO 08/06/21 17:00 08/19/21 17:33 Risperidone (RisperDAL) 0.5 mg QHS PO 08/09/21 21:00 08/15/21 11:24 DC 08/14/21 20:07 Sertraline HCl (Zoloft) 75 mg DAILY PO 08/11/21 09:00 08/13/21 09:01 DC 08/13/21 08:15 Buspirone HCl (Buspar) 5 mg BID@0900,1700 PO 08/11/21 09:00 08/14/21 17:40 DC 08/14/21 17:22 Sertraline HCl (Zoloft) 100 mg DAILY PO 08/14/21 09:00 08/19/21 08:08 Buspirone HCl (Buspar) 10 mg BID@0900,1700 PO 08/14/21 17:45 08/14/21 17:56 DC Buspirone HCl (Buspar) 10 mg BID@0900,1700 PO 08/15/21 09:00 08/17/21 07:16 DC 08/16/21 08:41 Risperidone (RisperDAL) 0.5 mg 1500 PO 08/15/21 15:00 08/17/21 07:16 DC 08/15/21 15:37 Risperidone (RisperDAL) 0.25 mg DAILY PO 08/15/21 11:30 08/17/21 07:16 DC 08/16/21 08:41 Furosemide (Lasix) 80 mg 1X PO 08/17/21 09:45 08/17/21 10:32 Furosemide (Lasix) 80 mg 1X PO 08/18/21 11:30 Magnesium Citrate (Citroma) 296 ml 1X ONCE PO 08/18/21 11:30 08/18/21 11:31 DC 08/18/21 12:17 I have reviewed the current psychotropics carefully including drug interactions. Risk benefit ratio favors no change other than as noted in my dictated progress note. Diagnosis: Problems: (1) Impulse control disorder, unspecified (2) Anxiety disorder, unspecified (3) Dementia, vascular, with depression (4) Dementia, vascular, with delusions (5) Dementia in Alzheimer's disease with depression (6) Dementia in Alzheimer's disease with delusions (7) Dementia of the Alzheimer's type with early onset with behavioral disturbance (8) Major neurocognitive disorder SOO BAIRES MD Aug 19, 2021 20:09
[2021-08-19] MEDS: traZODone 50 MG TABLET. PO SCH (21:01)
[2021-08-19] MEDS: MIRTAZAPINE 15 MG TABLET PO SCH (21:01)
[2021-08-19] MEDS: MELATONIN 3 MG TABLET PO SCH (21:01)
--- NOTE | 2021-08-19 23:53 | NUR ---
Nursing Note The patient was located in her room for her assessment and medication pass. The patient was sleeping when approached by this nurse and was unable to complete her assessment. The patients meds were held due to sleeping.
--- NOTE | 2021-08-20 00:27 | NUR ---
HS meds given due to patient waking up and needing changed.
[2021-08-20 06:03] VITALS: BP 131/69
--- NOTE | 2021-08-20 06:46 | PDOC ---
Exam Note: [place] Note: This note is a late entry for 08/19/2021 covers elements not covered in my initial note. Subjective: The patient was seen individually in the evening of 08/19/2021 with Joni TANG, discussed and reviewed the chart. The patient slept 6-1/2 hours previous night. The patient is much more animated, verbal, interactive, not yelling. However, she continues to have bladder retention and needed to be catheterized several times. She has also had some constipation. Received magnesium citrate. Review of Systems: Ambulation impaired, in wheelchair. She complains of fe eling cold. No CV, , pulmonary, eye system symptoms on review. Mental Status Exam: The patient is oriented to herself. Insight and judgment, recent and remote memory, attention and concentration, fund of knowledge is poor consistent with her diagnosis. She was putting her arms into the sleeves as she felt cold and the nursing staff is going to address this. Laboratory Data: Reviewed. Impression: Major neurocognitive disorder Alzheimer, vascular, with delusions, depression, behavioral disturbance. Anxiety disorder unspecified. Impulse control disorder unspecified. Plan: No change from initial note. Assessment: Vital Signs/I&O: Vital Signs Date Time Temp Pulse Resp B/P (MAP) Pulse Ox O2 Delivery O2 Flow Rate FiO2 08/20/21 06:03 97.6 68 16 131/69 (89) 95 08/19/21 15:47 Room Air 08/18/21 05:41 2.0 I & O 08/19/21 08/19/21 08/20/21 15:00 23:00 07:00 Intake Total 360 ml 480 ml Balance 360 ml 480 ml Labs: Laboratory Tests Test 08/19/21 07:32 08/19/21 11:50 08/19/21 17:10 08/19/21 20:03 Glucose (Fingerstick) 117 mg/dL (70-99) H 121 mg/dL (70-99) H 104 mg/dL (70-99) H 148 mg/dL (70-99) H Current Medications: Meds: Laboratory Tests Test 08/19/21 07:32 08/19/21 11:50 08/19/21 17:10 08/19/21 20:03 Glucose (Fingerstick) 117 mg/dL 121 mg/dL 104 mg/dL 148 mg/dL Current Medications Medications (Trade) Dose Ordered Sig/Richard Route PRN Reason Start Time Stop Time Status Last Admin Dose Admin Influenza Virus Vaccine Quadrival (Flulaval Quad Syringe) 0.5 ml ONCE ONCE VAX IM 07/17/21 09:00 07/17/21 09:01 DC 07/17/21 10:00 Acetaminophen (Tylenol) 650 mg PRN Q6HRS PRN PO PAIN/FEVER 07/16/21 22:45 UNV Metformin HCl (Glucophage) 1,000 mg BIDWMEALS PO 07/17/21 08:00 08/19/21 17:33 Nystatin (Mycostatin) 1 sulma PRN BID PRN TP RASH 07/16/21 22:45 Quetiapine Fumarate (SEROquel) 50 mg BID PO 07/17/21 09:00 07/18/21 10:56 DC 07/18/21 08:21 Trazodone HCl (Desyrel) 50 mg QHS PO 07/17/21 21:00 08/19/21 21:01 Non-Formulary Medication (Albuterol Sulfate (Albuterol Sulfate Neb Soln)) 1 vial QID PRN NEB SHORTNESS OF AIR 07/16/21 22:45 UNV Non-Formulary Medication (Insulin Aspart (Insulin Aspart Flexpen)) 100 unit PRN AFTMEALHC PRN SQ ELEVATED BLOOD SUGAR 07/16/21 22:45 UNV Acetaminophen (Tylenol) 650 mg PRN Q6HRS PRN PO MILD PAIN / TEMP > 100.3'F 07/16/21 22:45 08/12/21 08:21 Multi-Ingredient Ointment (Analgesic [place]) 1 sulma PRN QID PRN TP MUSCLE PAIN 07/16/21 22:45 Al Hydroxide/Mg Hydroxide (Mylanta Plus Xs) 15 ml PRN AFTMEALHC PRN PO DYSPEPSIA 07/16/21 22:45 Magnesium Hydroxide (Milk Of Magnesia) 2,400 mg PRN QHS PRN PO CONSTIPATION 07/16/21 22:45 Albuterol Sulfate (Ventolin) 2.5 mg PRN Q6HRS PRN NEB SHORTNESS OF BREATH 07/16/21 23:00 07/17/21 06:25 DC Insulin Human Lispro (HumaLOG) 0-5 UNITS TIDWMEALS SQ 07/17/21 08:00 08/18/21 12:16 Dextrose (Dextrose 50%-Water Syringe) 12.5 gm PRN Q15MIN PRN IV SEE COMMENTS 07/17/21 00:15 Albuterol Sulfate (Ventolin Hfa Inhaler) 1 puff PRN Q6HRS PRN INH SHORTNESS OF BREATH 07/17/21 06:30 Risperidone (RisperDAL) 0.5 mg HS PO 07/18/21 21:00 07/21/21 19:40 DC 07/20/21 20:18 Olanzapine (ZyPREXA ZYDIS) 2.5 mg PRN Q2HR PRN PO PSYCHOSIS 07/18/21 18:15 08/12/21 22:33 Divalproex Sodium (Depakote Sprinkles) 125 mg BID@0900,1700 PO 07/21/21 09:00 07/25/21 01:54 DC 07/24/21 17:08 Risperidone (RisperDAL) 1 mg HS PO 07/21/21 21:00 07/29/21 18:23 DC 07/28/21 20:11 Trazodone HCl (Desyrel) 50 mg PRN QHS PRN PO INSOMNIA 07/21/21 19:45 08/19/21 01:18 Mirtazapine (Remeron) 7.5 mg QHS PO 07/21/21 21:00 07/22/21 19:52 DC 07/21/21 20:04 Mirtazapine (Remeron) 15 mg QHS PO 07/22/21 21:00 08/19/21 21:01 Melatonin (Melatonin) 3 mg QHS PO 07/22/21 21:00 07/23/21 20:00 DC 07/22/21 20:21 Melatonin (Melatonin) 4.5 mg QHS PO 07/23/21 21:00 08/19/21 21:01 Divalproex Sodium (Depakote Sprinkles) 250 mg BID@0900,1700 PO 07/25/21 09:00 07/28/21 19:57 DC 07/28/21 17:07 Nystatin (Nystop) 1 sulma BID TP 07/27/21 21:00 08/19/21 21:01 Divalproex Sodium (Depakote Sprinkles) 375 mg BID@0900,1700 PO 07/29/21 09:00 08/17/21 07:16 DC 08/16/21 08:41 Risperidone (RisperDAL) 0.25 mg QHS PO 07/29/21 21:00 08/09/21 19:39 DC 08/08/21 20:35 Risperidone (RisperDAL) 1 mg QHS PO 07/29/21 21:00 08/17/21 07:16 DC 08/15/21 20:22 Sertraline HCl (Zoloft) 25 mg DAILY PO 08/03/21 09:00 08/05/21 12:00 DC 08/05/21 08:32 Sertraline HCl (Zoloft) 50 mg DAILY PO 08/06/21 09:00 08/10/21 20:02 DC 08/10/21 08:48 Ascorbic Acid (Vitamin C) 500 mg BIDWMEALS PO 08/06/21 17:00 08/19/21 17:33 Ferrous Sulfate (Feosol) 325 mg BIDWMEALS PO 08/06/21 17:00 08/19/21 17:33 Risperidone (RisperDAL) 0.5 mg QHS PO 08/09/21 21:00 08/15/21 11:24 DC 08/14/21 20:07 Sertraline HCl (Zoloft) 75 mg DAILY PO 08/11/21 09:00 08/13/21 09:01 DC 08/13/21 08:15 Buspirone HCl (Buspar) 5 mg BID@0900,1700 PO 08/11/21 09:00 08/14/21 17:40 DC 08/14/21 17:22 Sertraline HCl (Zoloft) 100 mg DAILY PO 08/14/21 09:00 08/19/21 08:08 Buspirone HCl (Buspar) 10 mg BID@0900,1700 PO 08/14/21 17:45 08/14/21 17:56 DC Buspirone HCl (Buspar) 10 mg BID@0900,1700 PO 08/15/21 09:00 08/17/21 07:16 DC 08/16/21 08:41 Risperidone (RisperDAL) 0.5 mg 1500 PO 08/15/21 15:00 08/17/21 07:16 DC 08/15/21 15:37 Risperidone (RisperDAL) 0.25 mg DAILY PO 08/15/21 11:30 08/17/21 07:16 DC 08/16/21 08:41 Furosemide (Lasix) 80 mg 1X PO 08/17/21 09:45 08/17/21 10:32 Furosemide (Lasix) 80 mg 1X PO 08/18/21 11:30 Magnesium Citrate (Citroma) 296 ml 1X ONCE PO 08/18/21 11:30 08/18/21 11:31 DC 08/18/21 12:17 I have reviewed the current psychotropics carefully including drug interactions. Risk benefit ratio favors no change other than as noted in my dictated progress note. Diagnosis: Problems: (1) Impulse control disorder, unspecified (2) Anxiety disorder, unspecified (3) Dementia, vascular, with depression (4) Dementia, vascular, with delusions (5) Dementia in Alzheimer's disease with depression (6) Dementia in Alzheimer's disease with delusions (7) Dementia of the Alzheimer's type with early onset with behavioral disturbance (8) Major neurocognitive disorder SOO BAIRES MD Aug 20, 2021 06:46
[2021-08-20] MEDS: INSULIN LISPRO 300 UNITS/3 ML VIAL. SQ SCH ×3 (08:00→17:00)
[2021-08-20] MEDS: ASCORBIC ACID 500 MG TABLET PO SCH ×2 (08:13→17:27)
[2021-08-20] MEDS: NYSTATIN TOPICAL POWDER 15GM BOTTLE. TP SCH ×2 (08:13→21:00)
[2021-08-20] MEDS: FERROUS SULFATE 325 MG TABLET. PO SCH ×2 (08:13→17:28)
[2021-08-20] MEDS: SERTRALINE 25 MG TABLET. PO SCH (08:13)
[2021-08-20] MEDS: metFORMIN 500 MG TABLET PO SCH ×2 (08:13→17:28)
[2021-08-20] MEDS: FUROSEMIDE 80 MG TABLET PO SCH (14:00)
--- NOTE | 2021-08-20 15:58 | NUR ---
Nursing note: Patient was in the dinning room for morning medications & assessment. She is compliant with medications taken crushed/floated in pudding. She is A/O to self. She yells out unprovoked, demanding, as well as sarcastic. Patient propels self in w/c, requires standby transfer assist, at times she may require a 2:1 transfer assist. She is confused, hyperverbal, resistive to cares, disorganized, & delusional. She has been propelling self through the [place], refused to go to day room to participate in group. She was able to void on her own. Patient has a nonproductive cough, lung sounds diminished with fine crackles in bilateral bases. This nurse noted new order for Lasix 80mg daily to start 08/21. She is currently resting in bed with eyes closed. Will continue to monitor.
[2021-08-20 16:09] VITALS: BP 108/59
--- NOTE | 2021-08-20 21:04 | PDOC ---
Exam Note: [place] Note: Please also refer to the separate dictated note~for this date of service dictated separately.~Patient seen individually. Discussed the patient with Nursing staff reviewed the chart.~Reviewed interim history and current functioning. Reviewed vital signs,~Labs/ Radiology~and current medications noted below. Continue current treatment with the changes noted in the dictated addendum note Assessment: Vital Signs/I&O: Vital Signs Date Time Temp Pulse Resp B/P (MAP) Pulse Ox O2 Delivery O2 Flow Rate FiO2 08/20/21 16:09 97.1 66 18 108/59 (75) 92 08/19/21 15:47 Room Air 08/18/21 05:41 2.0 I & O 0 08/19/21 08/19/21 08/20/21 15:00 23:00 07:00 Intake Total 360 ml 480 ml Balance 360 ml 480 ml Labs: Laboratory Tests Test 08/20/21 07:07 08/20/21 12:05 08/20/21 17:16 08/20/21 19:31 Glucose (Fingerstick) 121 mg/dL (70-99) H 172 mg/dL (70-99) H 144 mg/dL (70-99) H 130 mg/dL (70-99) H Current Medications: Meds: Laboratory Tests Test 08/20/21 07:07 08/20/21 12:05 08/20/21 17:16 08/20/21 19:31 Glucose (Fingerstick) 121 mg/dL 172 mg/dL 144 mg/dL 130 mg/dL Current Medications Medications (Trade) Dose Ordered Sig/Richard Route PRN Reason Start Time Stop Time Status Last Admin Dose Admin Influenza Virus Vaccine Quadrival (Flulaval Quad 7316-1200 Syringe) 0.5 ml ONCE ONCE VAX IM 07/17/21 09:00 07/17/21 09:01 DC 07/17/21 10:00 Acetaminophen (Tylenol) 650 mg PRN Q6HRS PRN PO PAIN/FEVER 07/16/21 22:45 UNV Metformin HCl (Glucophage) 1,000 mg BIDWMEALS PO 07/17/21 08:00 08/20/21 17:28 Nystatin (Mycostatin) 1 sulma PRN BID PRN TP RASH 07/16/21 22:45 Quetiapine Fumarate (SEROquel) 50 mg BID PO 07/17/21 09:00 07/18/21 10:56 DC 07/18/21 08:21 Trazodone HCl (Desyrel) 50 mg QHS PO 07/17/21 21:00 08/19/21 21:01 Non-Formulary Medication (Albuterol Sulfate (Albuterol Sulfate Neb Soln)) 1 vial QID PRN NEB SHORTNESS OF AIR 07/16/21 22:45 UNV Non-Formulary Medication (Insulin Aspart (Insulin Aspart Flexpen)) 100 unit PRN AFTMEALHC PRN SQ ELEVATED BLOOD SUGAR 07/16/21 22:45 UNV Acetaminophen (Tylenol) 650 mg PRN Q6HRS PRN PO MILD PAIN / TEMP > 100.3'F 07/16/21 22:45 08/12/21 08:21 Multi-Ingredient Ointment (Analgesic [place]) 1 sulma PRN QID PRN TP MUSCLE PAIN 07/16/21 22:45 Al Hydroxide/Mg Hydroxide (Mylanta Plus Xs) 15 ml PRN AFTMEALHC PRN PO DYSPEPSIA 07/16/21 22:45 Magnesium Hydroxide (Milk Of Magnesia) 2,400 mg PRN QHS PRN PO CONSTIPATION 07/16/21 22:45 Albuterol Sulfate (Ventolin) 2.5 mg PRN Q6HRS PRN NEB SHORTNESS OF BREATH 07/16/21 23:00 07/17/21 06:25 DC Insulin Human Lispro (HumaLOG) 0-5 UNITS TIDWMEALS SQ 07/17/21 08:00 08/20/21 12:09 Dextrose (Dextrose 50%-Water Syringe) 12.5 gm PRN Q15MIN PRN IV SEE COMMENTS 07/17/21 00:15 Albuterol Sulfate (Ventolin Hfa Inhaler) 1 puff PRN Q6HRS PRN INH SHORTNESS OF BREATH 07/17/21 06:30 Risperidone (RisperDAL) 0.5 mg HS PO 07/18/21 21:00 07/21/21 19:40 DC 07/20/21 20:18 Olanzapine (ZyPREXA ZYDIS) 2.5 mg PRN Q2HR PRN PO PSYCHOSIS 07/18/21 18:15 08/12/21 22:33 Divalproex Sodium (Depakote Sprinkles) 125 mg BID@0900,1700 PO 07/21/21 09:00 07/25/21 01:54 DC 07/24/21 17:08 Risperidone (RisperDAL) 1 mg HS PO 07/21/21 21:00 07/29/21 18:23 DC 07/28/21 20:11 Trazodone HCl (Desyrel) 50 mg PRN QHS PRN PO INSOMNIA 07/21/21 19:45 08/19/21 01:18 Mirtazapine (Remeron) 7.5 mg QHS PO 07/21/21 21:00 07/22/21 19:52 DC 07/21/21 20:04 Mirtazapine (Remeron) 15 mg QHS PO 07/22/21 21:00 08/19/21 21:01 Melatonin (Melatonin) 3 mg QHS PO 07/22/21 21:00 07/23/21 20:00 DC 07/22/21 20:21 Melatonin (Melatonin) 4.5 mg QHS PO 07/23/21 21:00 08/19/21 21:01 Divalproex Sodium (Depakote Sprinkles) 250 mg BID@0900,1700 PO 07/25/21 09:00 07/28/21 19:57 DC 07/28/21 17:07 Nystatin (Nystop) 1 sulma BID TP 07/27/21 21:00 08/20/21 08:13 Divalproex Sodium (Depakote Sprinkles) 375 mg BID@0900,1700 PO 07/29/21 09:00 08/17/21 07:16 DC 08/16/21 08:41 Risperidone (RisperDAL) 0.25 mg QHS PO 07/29/21 21:00 08/09/21 19:39 DC 08/08/21 20:35 Risperidone (RisperDAL) 1 mg QHS PO 07/29/21 21:00 08/17/21 07:16 DC 08/15/21 20:22 Sertraline HCl (Zoloft) 25 mg DAILY PO 08/03/21 09:00 08/05/21 12:00 DC 08/05/21 08:32 Sertraline HCl (Zoloft) 50 mg DAILY PO 08/06/21 09:00 08/10/21 20:02 DC 08/10/21 08:48 Ascorbic Acid (Vitamin C) 500 mg BIDWMEALS PO 08/06/21 17:00 08/20/21 17:27 Ferrous Sulfate (Feosol) 325 mg BIDWMEALS PO 08/06/21 17:00 08/20/21 17:28 Risperidone (RisperDAL) 0.5 mg QHS PO 08/09/21 21:00 08/15/21 11:24 DC 08/14/21 20:07 Sertraline HCl (Zoloft) 75 mg DAILY PO 08/11/21 09:00 08/13/21 09:01 DC 08/13/21 08:15 Buspirone HCl (Buspar) 5 mg BID@0900,1700 PO 08/11/21 09:00 08/14/21 17:40 DC 08/14/21 17:22 Sertraline HCl (Zoloft) 100 mg DAILY PO 08/14/21 09:00 08/20/21 08:13 Buspirone HCl (Buspar) 10 mg BID@0900,1700 PO 08/14/21 17:45 08/14/21 17:56 DC Buspirone HCl (Buspar) 10 mg BID@0900,1700 PO 08/15/21 09:00 08/17/21 07:16 DC 08/16/21 08:41 Risperidone (RisperDAL) 0.5 mg 1500 PO 08/15/21 15:00 08/17/21 07:16 DC 08/15/21 15:37 Risperidone (RisperDAL) 0.25 mg DAILY PO 08/15/21 11:30 08/17/21 07:16 DC 08/16/21 08:41 Furosemide (Lasix) 80 mg 1X PO 08/17/21 09:45 08/20/21 13:54 DC 08/17/21 10:32 Furosemide (Lasix) 80 mg 1X PO 08/18/21 11:30 08/20/21 13:54 DC Magnesium Citrate (Citroma) 296 ml 1X ONCE PO 08/18/21 11:30 08/18/21 11:31 DC 08/18/21 12:17 Furosemide (Lasix) 80 mg DAILY PO 08/20/21 14:00 I have reviewed the current psychotropics carefully including drug interactions. Risk benefit ratio favors no change other than as noted in my dictated progress note. Diagnosis: Problems: (1) Impulse control disorder, unspecified (2) Anxiety disorder, unspecified (3) Dementia, vascular, with depression (4) Dementia, vascular, with delusions (5) Dementia in Alzheimer's disease with depression (6) Dementia in Alzheimer's disease with delusions (7) Dementia of the Alzheimer's type with early onset with behavioral disturbance (8) Major neurocognitive disorder SOO BAIRES MD Aug 20, 2021 21:04
--- NOTE | 2021-08-20 23:37 | NUR ---
Nursing Note The patient was sleeping when approached by this nurse for medication pass and assessment. The patient was unable to take medication or complete her assessment due to sleeping. Currently sleeping in her room.
[2021-08-21] MEDS: MIRTAZAPINE 15 MG TABLET PO SCH ×2 (00:17→19:32)
[2021-08-21] MEDS: MELATONIN 3 MG TABLET PO SCH ×2 (00:18→19:32)
[2021-08-21] MEDS: traZODone 50 MG TABLET. PO SCH ×2 (00:18→19:33)
[2021-08-21] MEDS: traZODone 50 MG TABLET. PO PRN ×2 (02:00→21:23)
[2021-08-21 05:58] VITALS: BP 93/54
--- NOTE | 2021-08-21 07:29 | PDOC ---
Exam Note: [place] Note: This note is a late entry for 08/20/2021 covers elements not covered in my initial note. Subjective: The patient was seen individually in the evening of 08/20/2021 with Joni TANG, discussed and reviewed the chart. The patient slept 5-3/4 hours previous night. She remains hyperverbal but previous she was very appreciative of the nursing staff care and repeatedly stating thank you. She did receive Lasix and was overall doing better medically. Review of Systems: Ambulation impaired, in wheelchair. No CV, , pulmonary, eye system symptoms on review. Mental Status Exam: The patient is oriented to herself. Insight and judgment, recent and remote memory, attention and concentration, fund of knowledge is poor consistent with her diagnosis. Laboratory Data: Reviewed. Impression: Major neurocognitive disorder Alzheimer, vascular, with delusions, depression, behavioral disturbance. Anxiety disorder unspecified. Impulse control disorder unspecified. Plan: No change from initial note. Assessment: Vital Signs/I&O: Vital Signs Date Time Temp Pulse Resp B/P (MAP) Pulse Ox O2 Delivery O2 Flow Rate FiO2 08/21/21 05:58 97.8 77 18 93/54 (67) 90 2.0 08/19/21 15:47 Room Air I & O 08/20/21 08/20/21 08/21/21 15:00 23:00 07:00 Intake Total 1140 ml 0 ml 240 ml Balance 1140 ml 0 ml 240 ml Labs: Laboratory Tests Test 08/20/21 12:05 08/20/21 17:16 08/20/21 19:31 Glucose (Fingerstick) 172 mg/dL (70-99) H 144 mg/dL (70-99) H 130 mg/dL (70-99) H Current Medications: Meds: Laboratory Tests Test 08/20/21 12:05 08/20/21 17:16 08/20/21 19:31 Glucose (Fingerstick) 172 mg/dL 144 mg/dL 130 mg/dL Current Medications Medications (Trade) Dose Ordered Sig/Richard Route PRN Reason Start Time Stop Time Status Last Admin Dose Admin Influenza Virus Vaccine Quadrival (Flulaval Quad Syringe) 0.5 ml ONCE ONCE VAX IM 07/17/21 09:00 07/17/21 09:01 DC 07/17/21 10:00 Acetaminophen (Tylenol) 650 mg PRN Q6HRS PRN PO PAIN/FEVER 07/16/21 22:45 UNV Metformin HCl (Glucophage) 1,000 mg BIDWMEALS PO 07/17/21 08:00 08/20/21 17:28 Nystatin (Mycostatin) 1 sulma PRN BID PRN TP RASH 07/16/21 22:45 Quetiapine Fumarate (SEROquel) 50 mg BID PO 07/17/21 09:00 07/18/21 10:56 DC 07/18/21 08:21 Trazodone HCl (Desyrel) 50 mg QHS PO 07/17/21 21:00 08/21/21 00:18 Non-Formulary Medication (Albuterol Sulfate (Albuterol Sulfate Neb Soln)) 1 vial QID PRN NEB SHORTNESS OF AIR 07/16/21 22:45 UNV Non-Formulary Medication (Insulin Aspart (Insulin Aspart Flexpen)) 100 unit PRN AFTMEALHC PRN SQ ELEVATED BLOOD SUGAR 07/16/21 22:45 UNV Acetaminophen (Tylenol) 650 mg PRN Q6HRS PRN PO MILD PAIN / TEMP > 100.3'F 07/16/21 22:45 08/12/21 08:21 Multi-Ingredient Ointment (Analgesic [place]) 1 sulma PRN QID PRN TP MUSCLE PAIN 07/16/21 22:45 Al Hydroxide/Mg Hydroxide (Mylanta Plus Xs) 15 ml PRN AFTMEALHC PRN PO DYSPEPSIA 07/16/21 22:45 Magnesium Hydroxide (Milk Of Magnesia) 2,400 mg PRN QHS PRN PO CONSTIPATION 07/16/21 22:45 Albuterol Sulfate (Ventolin) 2.5 mg PRN Q6HRS PRN NEB SHORTNESS OF BREATH 07/16/21 23:00 07/17/21 06:25 DC Insulin Human Lispro (HumaLOG) 0-5 UNITS TIDWMEALS SQ 07/17/21 08:00 08/20/21 12:09 Dextrose (Dextrose 50%-Water Syringe) 12.5 gm PRN Q15MIN PRN IV SEE COMMENTS 07/17/21 00:15 Albuterol Sulfate (Ventolin Hfa Inhaler) 1 puff PRN Q6HRS PRN INH SHORTNESS OF BREATH 07/17/21 06:30 Risperidone (RisperDAL) 0.5 mg HS PO 07/18/21 21:00 07/21/21 19:40 DC 07/20/21 20:18 Olanzapine (ZyPREXA ZYDIS) 2.5 mg PRN Q2HR PRN PO PSYCHOSIS 07/18/21 18:15 08/12/21 22:33 Divalproex Sodium (Depakote Sprinkles) 125 mg BID@0900,1700 PO 07/21/21 09:00 07/25/21 01:54 DC 07/24/21 17:08 Risperidone (RisperDAL) 1 mg HS PO 07/21/21 21:00 07/29/21 18:23 DC 07/28/21 20:11 Trazodone HCl (Desyrel) 50 mg PRN QHS PRN PO INSOMNIA 07/21/21 19:45 08/21/21 02:00 Mirtazapine (Remeron) 7.5 mg QHS PO 07/21/21 21:00 07/22/21 19:52 DC 07/21/21 20:04 Mirtazapine (Remeron) 15 mg QHS PO 07/22/21 21:00 08/21/21 00:17 Melatonin (Melatonin) 3 mg QHS PO 07/22/21 21:00 07/23/21 20:00 DC 07/22/21 20:21 Melatonin (Melatonin) 4.5 mg QHS PO 07/23/21 21:00 08/21/21 00:18 Divalproex Sodium (Depakote Sprinkles) 250 mg BID@0900,1700 PO 07/25/21 09:00 07/28/21 19:57 DC 07/28/21 17:07 Nystatin (Nystop) 1 sulma BID TP 07/27/21 21:00 08/20/21 21:00 Divalproex Sodium (Depakote Sprinkles) 375 mg BID@0900,1700 PO 07/29/21 09:00 08/17/21 07:16 DC 08/16/21 08:41 Risperidone (RisperDAL) 0.25 mg QHS PO 07/29/21 21:00 08/09/21 19:39 DC 08/08/21 20:35 Risperidone (RisperDAL) 1 mg QHS PO 07/29/21 21:00 08/17/21 07:16 DC 08/15/21 20:22 Sertraline HCl (Zoloft) 25 mg DAILY PO 08/03/21 09:00 08/05/21 12:00 DC 08/05/21 08:32 Sertraline HCl (Zoloft) 50 mg DAILY PO 08/06/21 09:00 08/10/21 20:02 DC 08/10/21 08:48 Ascorbic Acid (Vitamin C) 500 mg BIDWMEALS PO 08/06/21 17:00 08/20/21 17:27 Ferrous Sulfate (Feosol) 325 mg BIDWMEALS PO 08/06/21 17:00 08/20/21 17:28 Risperidone (RisperDAL) 0.5 mg QHS PO 08/09/21 21:00 08/15/21 11:24 DC 08/14/21 20:07 Sertraline HCl (Zoloft) 75 mg DAILY PO 08/11/21 09:00 08/13/21 09:01 DC 08/13/21 08:15 Buspirone HCl (Buspar) 5 mg BID@0900,1700 PO 08/11/21 09:00 08/14/21 17:40 DC 08/14/21 17:22 Sertraline HCl (Zoloft) 100 mg DAILY PO 08/14/21 09:00 08/20/21 08:13 Buspirone HCl (Buspar) 10 mg BID@0900,1700 PO 08/14/21 17:45 08/14/21 17:56 DC Buspirone HCl (Buspar) 10 mg BID@0900,1700 PO 08/15/21 09:00 08/17/21 07:16 DC 08/16/21 08:41 Risperidone (RisperDAL) 0.5 mg 1500 PO 08/15/21 15:00 08/17/21 07:16 DC 08/15/21 15:37 Risperidone (RisperDAL) 0.25 mg DAILY PO 08/15/21 11:30 08/17/21 07:16 DC 08/16/21 08:41 Furosemide (Lasix) 80 mg 1X PO 08/17/21 09:45 08/20/21 13:54 DC 08/17/21 10:32 Furosemide (Lasix) 80 mg 1X PO 08/18/21 11:30 08/20/21 13:54 DC Magnesium Citrate (Citroma) 296 ml 1X ONCE PO 08/18/21 11:30 08/18/21 11:31 DC 08/18/21 12:17 Furosemide (Lasix) 80 mg DAILY PO 08/20/21 14:00 I have reviewed the current psychotropics carefully including drug interactions. Risk benefit ratio favors no change other than as noted in my dictated progress note. Diagnosis: Problems: (1) Impulse control disorder, unspecified (2) Anxiety disorder, unspecified (3) Dementia, vascular, with depression (4) Dementia, vascular, with delusions (5) Dementia in Alzheimer's disease with depression (6) Dementia in Alzheimer's disease with delusions (7) Dementia of the Alzheimer's type with early onset with behavioral disturbance (8) Major neurocognitive disorder SOO BAIRES MD Aug 21, 2021 07:29
[2021-08-21] MEDS: INSULIN LISPRO 300 UNITS/3 ML VIAL. SQ SCH ×3 (08:00→17:00)
[2021-08-21] MEDS: SERTRALINE 25 MG TABLET. PO SCH (08:48)
[2021-08-21] MEDS: metFORMIN 500 MG TABLET PO SCH ×2 (08:49→16:09)
[2021-08-21] MEDS: ASCORBIC ACID 500 MG TABLET PO SCH ×2 (08:49→16:09)
[2021-08-21] MEDS: FERROUS SULFATE 325 MG TABLET. PO SCH ×2 (08:49→16:09)
[2021-08-21] MEDS: FUROSEMIDE 80 MG TABLET PO SCH (08:50)
[2021-08-21] MEDS: NYSTATIN TOPICAL POWDER 15GM BOTTLE. TP SCH ×2 (08:50→19:33)
--- NOTE | 2021-08-21 13:14 | NUR ---
Nursing note: Pt has been pleasant, compliant with meds crushed in pudding and cooperative with assessment. She was very interactive with staff this AM. Pt occasionally yells out "Oh my God". She is currently resting quietly in her room. Will continue to monitor.
[2021-08-21 15:58] VITALS: BP 123/65
--- NOTE | 2021-08-21 20:59 | PDOC ---
Exam Note: [place] Note: Please also refer to the separate dictated note~for this date of service dictated separately.~Patient seen individually. Discussed the patient with Nursing staff reviewed the chart.~Reviewed interim history and current functioning. Reviewed vital signs,~Labs/ Radiology~and current medications noted below. Continue current treatment with the changes noted in the dictated addendum note Assessment: Vital Signs/I&O: Vital Signs Date Time Temp Pulse Resp B/P (MAP) Pulse Ox O2 Delivery O2 Flow Rate FiO2 08/21/21 15:58 97.8 71 20 123/65 (84) 90 Room Air 08/21/21 05:58 2.0 I & O 08/20/21 08/20/21 08/21/21 15:00 23:00 07:00 Intake Total 1140 ml 0 ml 240 ml Balance 1140 ml 0 ml 240 ml Labs: Laboratory Tests Test 08/21/21 07:52 08/21/21 11:46 08/21/21 16:56 08/21/21 19:02 Glucose (Fingerstick) 97 mg/dL (70-99) 113 mg/dL (70-99) H 150 mg/dL (70-99) H 146 mg/dL (70-99) H Current Medications: Meds: Laboratory Tests Test 08/21/21 07:52 08/21/21 11:46 08/21/21 16:56 08/21/21 19:02 Glucose (Fingerstick) 97 mg/dL 113 mg/dL 150 mg/dL 146 mg/dL Current Medications Medications (Trade) Dose Ordered Sig/Richard Route PRN Reason Start Time Stop Time Status Last Admin Dose Admin Influenza Virus Vaccine Quadrival (Flulaval Quad [id number] Syringe) 0.5 ml ONCE ONCE VAX IM 07/17/21 09:00 07/17/21 09:01 DC 07/17/21 10:00 Acetaminophen (Tylenol) 650 mg PRN Q6HRS PRN PO PAIN/FEVER 07/16/21 22:45 UNV Metformin HCl (Glucophage) 1,000 mg BIDWMEALS PO 07/17/21 08:00 08/21/21 16:09 Nystatin (Mycostatin) 1 sulma PRN BID PRN TP RASH 07/16/21 22:45 Quetiapine Fumarate (SEROquel) 50 mg BID PO 07/17/21 09:00 11/11/21 10:56 DC 07/18/21 08:21 Trazodone HCl (Desyrel) 50 mg QHS PO 07/17/21 21:00 08/21/21 19:33 Non-Formulary Medication (Albuterol Sulfate (Albuterol Sulfate Neb Soln)) 1 vial QID PRN NEB SHORTNESS OF AIR 07/16/21 22:45 UNV Non-Formulary Medication (Insulin Aspart (Insulin Aspart Flexpen)) 100 unit PRN AFTMEALHC PRN SQ ELEVATED BLOOD SUGAR 07/16/21 22:45 UNV Acetaminophen (Tylenol) 650 mg PRN Q6HRS PRN PO MILD PAIN / TEMP > 100.3'F 07/16/21 22:45 08/12/21 08:21 Multi-Ingredient Ointment (Analgesic [place]) 1 sulma PRN QID PRN TP MUSCLE PAIN 07/16/21 22:45 Al Hydroxide/Mg Hydroxide (Mylanta Plus Xs) 15 ml PRN AFTMEALHC PRN PO DYSPEPSIA 07/16/21 22:45 Magnesium Hydroxide (Milk Of Magnesia) 2,400 mg PRN QHS PRN PO CONSTIPATION 07/16/21 22:45 Albuterol Sulfate (Ventolin) 2.5 mg PRN Q6HRS PRN NEB SHORTNESS OF BREATH 07/16/21 23:00 07/17/21 06:25 DC Insulin Human Lispro (HumaLOG) 0-5 UNITS TIDWMEALS SQ 07/17/21 08:00 08/20/21 12:09 Dextrose (Dextrose 50%-Water Syringe) 12.5 gm PRN Q15MIN PRN IV SEE COMMENTS 07/17/21 00:15 Albuterol Sulfate (Ventolin Hfa Inhaler) 1 puff PRN Q6HRS PRN INH SHORTNESS OF BREATH 07/17/21 06:30 Risperidone (RisperDAL) 0.5 mg HS PO 07/18/21 21:00 07/21/21 19:40 DC 07/20/21 20:18 Olanzapine (ZyPREXA ZYDIS) 2.5 mg PRN Q2HR PRN PO PSYCHOSIS 07/18/21 18:15 08/21/21 16:10 Divalproex Sodium (Depakote Sprinkles) 125 mg BID@0900,1700 PO 07/21/21 09:00 07/25/21 01:54 DC 07/24/21 17:08 Risperidone (RisperDAL) 1 mg HS PO 07/21/21 21:00 07/29/21 18:23 DC 07/28/21 20:11 Trazodone HCl (Desyrel) 50 mg PRN QHS PRN PO INSOMNIA 07/21/21 19:45 08/21/21 02:00 Mirtazapine (Remeron) 7.5 mg QHS PO 07/21/21 21:00 07/22/21 19:52 DC 07/21/21 20:04 Mirtazapine (Remeron) 15 mg QHS PO 07/22/21 21:00 08/21/21 19:32 Melatonin (Melatonin) 3 mg QHS PO 07/22/21 21:00 07/23/21 20:00 DC 07/22/21 20:21 Melatonin (Melatonin) 4.5 mg QHS PO 07/23/21 21:00 08/21/21 19:32 Divalproex Sodium (Depakote Sprinkles) 250 mg BID@0900,1700 PO 07/25/21 09:00 07/28/21 19:57 DC 07/28/21 17:07 Nystatin (Nystop) 1 sulma BID TP 07/27/21 21:00 08/21/21 19:33 Divalproex Sodium (Depakote Sprinkles) 375 mg BID@0900,1700 PO 07/29/21 09:00 08/17/21 07:16 DC 08/16/21 08:41 Risperidone (RisperDAL) 0.25 mg QHS PO 07/29/21 21:00 08/09/21 19:39 DC 08/08/21 20:35 Risperidone (RisperDAL) 1 mg QHS PO 07/29/21 21:00 08/17/21 07:16 DC 08/15/21 20:22 Sertraline HCl (Zoloft) 25 mg DAILY PO 08/03/21 09:00 08/05/21 12:00 DC 08/05/21 08:32 Sertraline HCl (Zoloft) 50 mg DAILY PO 08/06/21 09:00 08/10/21 20:02 DC 08/10/21 08:48 Ascorbic Acid (Vitamin C) 500 mg BIDWMEALS PO 08/06/21 17:00 08/21/21 16:09 Ferrous Sulfate (Feosol) 325 mg BIDWMEALS PO 08/06/21 17:00 08/21/21 16:09 Risperidone (RisperDAL) 0.5 mg QHS PO 08/09/21 21:00 08/15/21 11:24 DC 08/14/21 20:07 Sertraline HCl (Zoloft) 75 mg DAILY PO 08/11/21 09:00 08/13/21 09:01 DC 08/13/21 08:15 Buspirone HCl (Buspar) 5 mg BID@0900,1700 PO 08/11/21 09:00 08/14/21 17:40 DC 08/14/21 17:22 Sertraline HCl (Zoloft) 100 mg DAILY PO 08/14/21 09:00 08/21/21 08:48 Buspirone HCl (Buspar) 10 mg BID@0900,1700 PO 08/14/21 17:45 08/14/21 17:56 DC Buspirone HCl (Buspar) 10 mg BID@0900,1700 PO 08/15/21 09:00 08/17/21 07:16 DC 08/16/21 08:41 Risperidone (RisperDAL) 0.5 mg 1500 PO 08/15/21 15:00 08/17/21 07:16 DC 08/15/21 15:37 Risperidone (RisperDAL) 0.25 mg DAILY PO 08/15/21 11:30 08/17/21 07:16 DC 08/16/21 08:41 Furosemide (Lasix) 80 mg 1X PO 08/17/21 09:45 08/20/21 13:54 DC 08/17/21 10:32 Furosemide (Lasix) 80 mg 1X PO 08/18/21 11:30 08/20/21 13:54 DC Magnesium Citrate (Citroma) 296 ml 1X ONCE PO 08/18/21 11:30 08/18/21 11:31 DC 08/18/21 12:17 Furosemide (Lasix) 80 mg DAILY PO 08/20/21 14:00 08/21/21 08:50 I have reviewed the current psychotropics carefully including drug interactions. Risk benefit ratio favors no change other than as noted in my dictated progress note. Diagnosis: Problems: (1) Impulse control disorder, unspecified (2) Anxiety disorder, unspecified (3) Dementia, vascular, with depression (4) Dementia, vascular, with delusions (5) Dementia in Alzheimer's disease with depression (6) Dementia in Alzheimer's disease with delusions (7) Dementia of the Alzheimer's type with early onset with behavioral disturbance (8) Major neurocognitive disorder SOO BAIRES MD Aug 21, 2021 20:59
--- NOTE | 2021-08-22 01:40 | NUR ---
Nursing Note The patient was located in her room for her assessment and medication pass. The patient took her medication crushed in pudding. The patient was alert to name only. The patient was restless and yelling out@HS and received Trazodone@6693 and Zyprexa@7150. The patient is currently sleeping in her room.
[2021-08-22 05:49] VITALS: BP 111/49
[2021-08-22] MEDS: metFORMIN 500 MG TABLET PO SCH ×2 (07:19→16:18)
[2021-08-22] MEDS: ASCORBIC ACID 500 MG TABLET PO SCH ×2 (07:19→16:18)
[2021-08-22] MEDS: SERTRALINE 25 MG TABLET. PO SCH (07:19)
[2021-08-22] MEDS: NYSTATIN TOPICAL POWDER 15GM BOTTLE. TP SCH ×2 (07:20→21:26)
[2021-08-22] MEDS: FERROUS SULFATE 325 MG TABLET. PO SCH ×2 (07:20→16:18)
[2021-08-22] MEDS: FUROSEMIDE 80 MG TABLET PO SCH (07:20)
--- NOTE | 2021-08-22 07:56 | PDOC ---
Exam Note: [place] Note: This note is a late entry for 08/21/2021 covers elements not covered in my initial note. Subjective: The patient was seen individually in the evening of 08/21/2021 with Honey TANG, discussed and reviewed the chart. The patient slept 7-3/4 hours previous night. She is much more awake, alert but yelling out at times, more so in the evening. Received Zyprexa Zydis, which was helpful. Review of Systems: Ambulation impaired, with walker. No CV, , pulmonary, eye system symptoms on review. Mental Status Exam: The patient is oriented to herself. Insight and judgment, recent and remote memory, attention and concentration, fund of knowledge is poor consistent with her diagnosis. Laboratory Data: Reviewed. Impression: Major neurocognitive disorder Alzheimer, vascular, with delusions, depression, behavioral disturbance. Anxiety disorder unspecified. Impulse control disorder unspecified. Plan: No change from initial note. Assessment: Vital Signs/I&O: Vital Signs Date Time Temp Pulse Resp B/P (MAP) Pulse Ox O2 Delivery O2 Flow Rate FiO2 08/22/21 05:49 97.6 66 22 111/49 (69) 90 08/21/21 15:58 Room Air 08/21/21 05:58 2.0 I & O 08/21/21 08/21/21 08/22/21 15:00 23:00 07:00 Intake Total 480 ml 0 ml 80 ml Output Total 1200 ml Balance 480 ml 0 ml -1120 ml Labs: Laboratory Tests Test 08/21/21 11:46 08/21/21 16:56 08/21/21 19:02 08/22/21 07:52 Glucose (Fingerstick) 113 mg/dL (70-99) H 150 mg/dL (70-99) H 146 mg/dL (70-99) H 106 mg/dL (70-99) H Current Medications: Meds: Laboratory Tests Test 08/21/21 11:46 08/21/21 16:56 08/21/21 19:02 08/22/21 07:52 Glucose (Fingerstick) 113 mg/dL 150 mg/dL 146 mg/dL 106 mg/dL Current Medications Medications (Trade) Dose Ordered Sig/Richard Route PRN Reason Start Time Stop Time Status Last Admin Dose Admin Influenza Virus Vaccine Quadrival (Flulaval Quad [id number] Syringe) 0.5 ml ONCE ONCE VAX IM 07/17/21 09:00 07/17/21 09:01 DC 07/17/21 10:00 Acetaminophen (Tylenol) 650 mg PRN Q6HRS PRN PO PAIN/FEVER 07/16/21 22:45 UNV Metformin HCl (Glucophage) 1,000 mg BIDWMEALS PO 07/17/21 08:00 08/22/21 07:19 Nystatin (Mycostatin) 1 sulma PRN BID PRN TP RASH 07/16/21 22:45 Quetiapine Fumarate (SEROquel) 50 mg BID PO 07/17/21 09:00 07/18/21 10:56 DC 07/18/21 08:21 Trazodone HCl (Desyrel) 50 mg QHS PO 07/17/21 21:00 08/21/21 19:33 Non-Formulary Medication (Albuterol Sulfate (Albuterol Sulfate Neb Soln)) 1 vial QID PRN NEB SHORTNESS OF AIR 07/16/21 22:45 UNV Non-Formulary Medication (Insulin Aspart (Insulin Aspart Flexpen)) 100 unit PRN AFTMEALHC PRN SQ ELEVATED BLOOD SUGAR 07/16/21 22:45 UNV Acetaminophen (Tylenol) 650 mg PRN Q6HRS PRN PO MILD PAIN / TEMP > 100.3'F 07/16/21 22:45 08/12/21 08:21 Multi-Ingredient Ointment (Analgesic [place]) 1 sulma PRN QID PRN TP MUSCLE PAIN 07/16/21 22:45 Al Hydroxide/Mg Hydroxide (Mylanta Plus Xs) 15 ml PRN AFTMEALHC PRN PO DYSPEPSIA 07/16/21 22:45 Magnesium Hydroxide (Milk Of Magnesia) 2,400 mg PRN QHS PRN PO CONSTIPATION 07/16/21 22:45 Albuterol Sulfate (Ventolin) 2.5 mg PRN Q6HRS PRN NEB SHORTNESS OF BREATH 07/16/21 23:00 07/17/21 06:25 DC Insulin Human Lispro (HumaLOG) 0-5 UNITS TIDWMEALS SQ 07/17/21 08:00 08/20/21 12:09 Dextrose (Dextrose 50%-Water Syringe) 12.5 gm PRN Q15MIN PRN IV SEE COMMENTS 07/17/21 00:15 Albuterol Sulfate (Ventolin Hfa Inhaler) 1 puff PRN Q6HRS PRN INH SHORTNESS OF BREATH 07/17/21 06:30 Risperidone (RisperDAL) 0.5 mg HS PO 07/18/21 21:00 07/21/21 19:40 DC 07/20/21 20:18 Olanzapine (ZyPREXA ZYDIS) 2.5 mg PRN Q2HR PRN PO PSYCHOSIS 07/18/21 18:15 08/22/21 07:19 Divalproex Sodium (Depakote Sprinkles) 125 mg BID@0900,1700 PO 07/21/21 09:00 07/25/21 01:54 DC 07/24/21 17:08 Risperidone (RisperDAL) 1 mg HS PO 07/21/21 21:00 07/29/21 18:23 DC 07/28/21 20:11 Trazodone HCl (Desyrel) 50 mg PRN QHS PRN PO INSOMNIA 07/21/21 19:45 08/21/21 21:23 Mirtazapine (Remeron) 7.5 mg QHS PO 07/21/21 21:00 07/22/21 19:52 DC 07/21/21 20:04 Mirtazapine (Remeron) 15 mg QHS PO 07/22/21 21:00 08/21/21 19:32 Melatonin (Melatonin) 3 mg QHS PO 07/22/21 21:00 07/23/21 20:00 DC 07/22/21 20:21 Melatonin (Melatonin) 4.5 mg QHS PO 07/23/21 21:00 08/21/21 19:32 Divalproex Sodium (Depakote Sprinkles) 250 mg BID@0900,1700 PO 07/25/21 09:00 07/28/21 19:57 DC 07/28/21 17:07 Nystatin (Nystop) 1 sulma BID TP 07/27/21 21:00 08/22/21 07:20 Divalproex Sodium (Depakote Sprinkles) 375 mg BID@0900,1700 PO 07/29/21 09:00 08/17/21 07:16 DC 08/16/21 08:41 Risperidone (RisperDAL) 0.25 mg QHS PO 07/29/21 21:00 08/09/21 19:39 DC 08/08/21 20:35 Risperidone (RisperDAL) 1 mg QHS PO 07/29/21 21:00 08/17/21 07:16 DC 08/15/21 20:22 Sertraline HCl (Zoloft) 25 mg DAILY PO 08/03/21 09:00 08/05/21 12:00 DC 08/05/21 08:32 Sertraline HCl (Zoloft) 50 mg DAILY PO 08/06/21 09:00 08/10/21 20:02 DC 08/10/21 08:48 Ascorbic Acid (Vitamin C) 500 mg BIDWMEALS PO 08/06/21 17:00 08/22/21 07:19 Ferrous Sulfate (Feosol) 325 mg BIDWMEALS PO 08/06/21 17:00 08/22/21 07:20 Risperidone (RisperDAL) 0.5 mg QHS PO 08/09/21 21:00 08/15/21 11:24 DC 08/14/21 20:07 Sertraline HCl (Zoloft) 75 mg DAILY PO 08/11/21 09:00 08/13/21 09:01 DC 08/13/21 08:15 Buspirone HCl (Buspar) 5 mg BID@0900,1700 PO 08/11/21 09:00 08/14/21 17:40 DC 08/14/21 17:22 Sertraline HCl (Zoloft) 100 mg DAILY PO 08/14/21 09:00 08/22/21 07:19 Buspirone HCl (Buspar) 10 mg BID@0900,1700 PO 08/14/21 17:45 08/14/21 17:56 DC Buspirone HCl (Buspar) 10 mg BID@0900,1700 PO 08/15/21 09:00 08/17/21 07:16 DC 08/16/21 08:41 Risperidone (RisperDAL) 0.5 mg 1500 PO 08/15/21 15:00 08/17/21 07:16 DC 08/15/21 15:37 Risperidone (RisperDAL) 0.25 mg DAILY PO 08/15/21 11:30 08/17/21 07:16 DC 08/16/21 08:41 Furosemide (Lasix) 80 mg 1X PO 08/17/21 09:45 08/20/21 13:54 DC 08/17/21 10:32 Furosemide (Lasix) 80 mg 1X PO 08/18/21 11:30 08/20/21 13:54 DC Magnesium Citrate (Citroma) 296 ml 1X ONCE PO 08/18/21 11:30 08/18/21 11:31 DC 08/18/21 12:17 Furosemide (Lasix) 80 mg DAILY PO 08/20/21 14:00 08/22/21 07:20 I have reviewed the current psychotropics carefully including drug interactions. Risk benefit ratio favors no change other than as noted in my dictated progress note. Diagnosis: Problems: (1) Impulse control disorder, unspecified (2) Anxiety disorder, unspecified (3) Dementia, vascular, with depression (4) Dementia, vascular, with delusions (5) Dementia in Alzheimer's disease with depression (6) Dementia in Alzheimer's disease with delusions (7) Dementia of the Alzheimer's type with early onset with behavioral disturba nce (8) Major neurocognitive disorder SOO BAIRES MD Aug 22, 2021 07:56
[2021-08-22] MEDS: INSULIN LISPRO 300 UNITS/3 ML VIAL. SQ SCH ×3 (08:00→17:35)
[2021-08-22 11:11] LABS: COLOR,URINE YELLOW
[2021-08-22 11:12] LABS: BACTERIA,URINE MANY /HPF (0-FEW); BILIRUBIN,URINE NEG (NEG); CLARITY,URINE HAZY; GLUCOSE,URINE NEG (NEG); NITRITE,URINE POS (NEG); RBC,URINE 0 /HPF (0-2); SQUAMOUS EPITHELIAL CELL,UR FEW /LPF; UROBILINOGEN,URINE 0.2 mg/dL (0.2 mg/dL)
--- NOTE | 2021-08-22 11:15 | NUR ---
WEEKLY ACTIVITY THERAPY NOTE Date of Admission:07/16/21 Date of AT Assessment: 07/18 Precipitating behaviors that initiated intake and admission: Pt hallucinating, irritable calling out angry, confused, Delusions, combative, verbal aggression Goal aimed: increase socialization and engagement Initial Goal: Pt will participate in at least three activity therapy sessions per week Goal changed 08/08:Pt will participate in at least three activity therapy sessions before discharge Weekly progress towards goal: did not achieve, zero Group participation level: none Weekly highlights: group participation Behaviors observed: wandering and disruptive , tearful and shouting Thursday Plan: no change to goal Beneficial adaptations:
--- NOTE | 2021-08-22 12:17 | TX PLAN ---
Interdisciplinary Tx Plan Admission Information Jul 16, 2021 at 20:03 Legal Status (on Admission): Voluntary DPOA/Guardian Name: Lucille Bergman Contact Other Contact Name: Jayna Sheikh Contact Verified Code Status: Full Code Allergies: Coded Allergies: No Known Drug Allergies (Unverified , 07/16/21) Diagnoses Primary Diagnosis: (1) Impulse control disorder, unspecified (2) Anxiety disorder, unspecified (3) Dementia, vascular, with depression (4) Dementia, vascular, with delusions (5) Dementia in Alzheimer's disease with depression (6) Dementia in Alzheimer's disease with delusions (7) Dementia of the Alzheimer's type with early onset with behavioral disturbance (8) Major neurocognitive disorder Reasons for Admission: Aggressive, Delusions, Agitated, Sig. Change Sleep, Hallucinations, Combative Problem in Patient's Words: Per pt lucille fishman/DPАнна MORALES who was raised mostly by pt, pt has had a noticable decline over the past year and particularlly over the past couple of months. Up until a year ago, pt was living in her independant living apartment and [place], she moved to [place], [place] and bought a house that she paid winn for. She was then found to be living in very poor conditions without running water and no utilities and overall unable to care for herself. She had a few past hospitalizations but then release to herself and then would be found again living in unsafe conditions. At one point, pt drove herself to Анна's home, but refused to come in to stay, and would only stay in her car. Анна was finally successful at gaining DPOA during one of pt's hospitalizations and also in getting her license revoked. During the past year, family and staff during the different hospitalizations discovered pt was having hallucinations and delusions that seem to continue. Анна is concerned if pt is struggling with onset of dementia or if pt is truly experiencing psychosis and might clear in the future with medication management. Additional Admission Comments: Per intake record, pt refusing UA and cath, sexually inappropriate comments to staff, not sleeping for 30 hours, combative to staff, delusions,auditory hallucinations, verbally aggressive, screaming, cussing, disruptive. Problems Active Problems: Hallucinations, delusions, combative, agitation Inactive Problems: Pt seems to be sleeping better. Will continue to monitor for any changes. Pt Strengths/Limitations Ability for [place]: Poor Cognitive Functioning/Ability: Poor Communication Skills/Ability: Fair Financial Resources: Fair Insight/Judgement: Poor Intellectual Ability: Fair Physical Health: Poor Social Skills: Fair Stability in Family: Fair Stability in School/Work: Fair Verbal Skills: Fair Discharge Criteria Discharge Criteria: Adequate arrangements @DC, Verbal commit med comply, Improved behavior Other Discharge Comments: None at this time. Preliminary Discharge Plan Preliminary DC Plan: Current Living Arrange. Special Precautions Special Precautions: Agitation/Assault Fall Risk: High Other Precautions (specify): Pt has a history of falls. Initial D/C Plan Plan is for pt to return to her facility at [facility]. Identified Discharge Needs: None at this time. Currently Utilized Resources Currently Utilized Resources/P: PCP-Dr. Quang Fishman/[facility]-Анна [facility]; contact-CHANA Cruz Community Resources: None known at this time. Identified Problems/Hx/Goals Objectives/Short-Term Goals Short Term Goals: Control abnormal behavior, Dec. Aggression, Dec. Hallucination/Delus, Dec. Outbursts, Medication Stabilization, Monitor Med Effects, Prevent Deterioration, Promote Coping Skill Short Term Goals in Patient's: Assist with proper diagnosis of psychosis vs dementia. Interventions/Frequency Staff Interventions/Frequency&: Psychiatry to assess pt three times per week for medication management. Nursing to assess behaviors, monitor medications, and complete 15 minute checks daily. Social work to see pt at least two times weekly to aid in return to placement. Activities to encourage pt to participate in group activities daily. 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 Education: According to [employer], pt received a high school diploma and she had some technical college. Community Follow-up PCP Community Provider/Family Inpu: Pt lucille fishman/Анна LANG, provided pt history for the development of the treatment plan. Анна is available for further information should it be needed. 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 Pt is described to be restless and yells out, "Help me!" or "Oh my God!" She does not like sudden movements or to moved while she is seated in her wheelchair without proper advance notice and slowly talking her through what is going on while it is happening. Pt does not participate in group as she mostl y demonstrates confusion. Pt had to be straight cathed this am for UA and it has been sent to culture. Pt is described to be medication compliant. Pt will be started on 25mg of Seroquel. Pt ELOS is mid to end next week. LINDA BLACKWELL Aug 22, 2021 12:17
--- NOTE | 2021-08-22 14:39 | NUR ---
Nursing note: Pt has been pleasant, compliant with meds crushed in pudding and cooperative with assessments. She was highly anxious this AM, continuously yelling out. PRN was administered with AM meds with good effect. She is currently sitting quietly in her room. Will continue to monitor.
[2021-08-22 15:49] VITALS: BP 113/71
--- NOTE | 2021-08-22 16:24 | NUR ---
Weekly Note: Pt over the past week has been averaging 25% of her meals and sleeping 7.25 hours at night. Pt is described to be restless and yells out, "Help me!" or "Oh my God!" She does not like sudden movements or to moved while she is seated in her wheelchair without proper advance notice and slowly talking her through what is going on while it is happening. Pt does not participate in group as she mostly demonstrates confusion. Pt had to be straight cathed this am for UA and it has been sent to culture. Pt is described to be medication compliant. Pt will be started on 25mg of Seroquel. Pt ELOS is mid to end next week. SW attempted to contact pt Анна LANG. SW had to leave a voice message and will plan to call again at a later time. SW then spent time with pt 1:1 in pt room as pt was complaining of being cold. SW spent time with pt as she was making some nonsensical statements. SW figured out that pt was cold and with explanation about how the blankets could help warm her up, she was very accepting. Pt was pleasant with this SW as things were discussed with pt and explained and pt was allowed time to process her thoughts.
--- NOTE | 2021-08-22 21:06 | PDOC ---
Exam Note: Troy Note: Please also refer to the separate dictated note~for this date of service dictated separately.~Patient seen individually. Discussed the patient with Nursing staff reviewed the chart.~Reviewed interim history and current functioning. Reviewed vital signs,~Labs/ Radiology~and current medications noted below. Continue current treatment with the changes noted in the dictated addendum note Assessment: Vital Signs/I&O: Vital Signs Date Time Temp Pulse Resp B/P (MAP) Pulse Ox O2 Delivery O2 Flow Rate FiO2 08/22/21 15:49 98.0 69 16 113/71 (85) 95 Room Air 08/21/21 05:58 2.0 I & O 08/21/21 08/21/21 08/22/21 15:00 23:00 07:00 Intake Total 480 ml 0 ml 80 ml Output Total 1200 ml Balance 480 ml 0 ml -1120 ml Labs: Laboratory Tests Test 08/22/21 05:25 08/22/21 07:52 08/22/21 12:00 08/22/21 17:04 Urine Collection Type Unknown Urine Color Yellow Urine Clarity Hazy Urine pH 5.5 Urine Specific [place] 1.015 Urine Protein Neg (NEG-TRACE) Urine Glucose (UA) Neg mg/dL (NEG) Urine Ketones (Stick) Neg mg/dL (NEG) Urine Blood Neg (NEG) Urine Nitrite Pos (NEG) Urine Bilirubin Neg (NEG) Urine Urobilinogen Dipstick 0.2 mg/dL (0.2 mg/dL) Urine Leukocyte Esterase Small (NEG) Urine RBC 0 /HPF (0-2) Urine WBC 11-20 /HPF (0-4) Urine Squamous Epithelial Cells Few /LPF Urine Bacteria Many /HPF (0-FEW) Glucose (Fingerstick) 106 mg/dL (70-99) H 133 mg/dL (70-99) H 191 mg/dL (70-99) H Test 08/22/21 19:13 Glucose (Fingerstick) 174 mg/dL (70-99) H Current Medications: Meds: Laboratory Tests Test 08/22/21 05:25 08/22/21 07:52 08/22/21 12:00 08/22/21 17:04 Urine Collection Type Unknown Urine Color Yellow Urine Clarity Hazy Urine pH 5.5 Urine Specific [place] 1.015 Urine Protein Neg Urine Glucose (UA) Neg mg/dL Urine Ketones (Stick) Neg mg/dL Urine Blood Neg Urine Nitrite Pos Urine Bilirubin Neg Urine Urobilinogen Dipstick 0.2 mg/dL Urine Leukocyte Esterase Small Urine RBC 0 /HPF Urine WBC 11-20 /HPF Urine Squamous Epithelial Cells Few /LPF Urine Bacteria Many /HPF Glucose (Fingerstick) 106 mg/dL 133 mg/dL 191 mg/dL Test 08/22/21 19:13 Glucose (Fingerstick) 174 mg/dL Current Medications Medications (Trade) Dose Ordered Sig/Richard Route PRN Reason Start Time Stop Time Status Last Admin Dose Admin Influenza Virus Vaccine Quadrival (Flulaval Quad Syringe) 0.5 ml ONCE ONCE VAX IM 07/17/21 09:00 07/17/21 09:01 DC 07/17/21 10:00 Acetaminophen (Tylenol) 650 mg PRN Q6HRS PRN PO PAIN/FEVER 07/16/21 22:45 UNV Metformin HCl (Glucophage) 1,000 mg BIDWMEALS PO 07/17/21 08:00 08/22/21 16:18 Nystatin (Mycostatin) 1 sulma PRN BID PRN TP RASH 07/16/21 22:45 Quetiapine Fumarate (SEROquel) 50 mg BID PO 07/17/21 09:00 07/18/21 10:56 DC 07/18/21 08:21 Trazodone HCl (Desyrel) 50 mg QHS PO 07/17/21 21:00 08/21/21 19:33 Non-Formulary Medication (Albuterol Sulfate (Albuterol Sulfate Neb Soln)) 1 vial QID PRN NEB SHORTNESS OF AIR 07/16/21 22:45 UNV Non-Formulary Medication (Insulin Aspart (Insulin Aspart Flexpen)) 100 unit PRN AFTMEALHC PRN SQ ELEVATED BLOOD SUGAR 07/16/21 22:45 UNV Acetaminophen (Tylenol) 650 mg PRN Q6HRS PRN PO MILD PAIN / TEMP > 100.3'F 07/16/21 22:45 08/12/21 08:21 Multi-Ingredient Ointment (Analgesic [place]) 1 sulma PRN QID PRN TP MUSCLE PAIN 07/16/21 22:45 Al Hydroxide/Mg Hydroxide (Mylanta Plus Xs) 15 ml PRN AFTMEALHC PRN PO DYSPEPSIA 07/16/21 22:45 Magnesium Hydroxide (Milk Of Magnesia) 2,400 mg PRN QHS PRN PO CONSTIPATION 07/16/21 22:45 Albuterol Sulfate (Ventolin) 2.5 mg PRN Q6HRS PRN NEB SHORTNESS OF BREATH 07/16/21 23:00 07/17/21 06:25 DC Insulin Human Lispro (HumaLOG) 0-5 UNITS TIDWMEALS SQ 07/17/21 08:00 08/22/21 17:35 Dextrose (Dextrose 50%-Water Syringe) 12.5 gm PRN Q15MIN PRN IV SEE COMMENTS 07/17/21 00:15 Albuterol Sulfate (Ventolin Hfa Inhaler) 1 puff PRN Q6HRS PRN INH SHORTNESS OF BREATH 07/17/21 06:30 Risperidone (RisperDAL) 0.5 mg HS PO 07/18/21 21:00 07/21/21 19:40 DC 07/20/21 20:18 Olanzapine (ZyPREXA ZYDIS) 2.5 mg PRN Q2HR PRN PO PSYCHOSIS 07/18/21 18:15 08/22/21 07:19 Divalproex Sodium (Depakote Sprinkles) 125 mg BID@0900,1700 PO 07/21/21 09:00 07/25/21 01:54 DC 07/24/21 17:08 Risperidone (RisperDAL) 1 mg HS PO 07/21/21 21:00 07/29/21 18:23 DC 07/28/21 20:11 Trazodone HCl (Desyrel) 50 mg PRN QHS PRN PO INSOMNIA 07/21/21 19:45 08/21/21 21:23 Mirtazapine (Remeron) 7.5 mg QHS PO 07/21/21 21:00 07/22/21 19:52 DC 07/21/21 20:04 Mirtazapine (Remeron) 15 mg QHS PO 07/22/21 21:00 08/21/21 19:32 Melatonin (Melatonin) 3 mg QHS PO 07/22/21 21:00 07/23/21 20:00 DC 07/22/21 20:21 Melatonin (Melatonin) 4.5 mg QHS PO 07/23/21 21:00 08/21/21 19:32 Divalproex Sodium (Depakote Sprinkles) 250 mg BID@0900,1700 PO 07/25/21 09:00 07/28/21 19:57 DC 07/28/21 17:07 Nystatin (Nystop) 1 sulma BID TP 07/27/21 21:00 08/22/21 07:20 Divalproex Sodium (Depakote Sprinkles) 375 mg BID@0900,1700 PO 07/29/21 09:00 08/17/21 07:16 DC 08/16/21 08:41 Risperidone (RisperDAL) 0.25 mg QHS PO 07/29/21 21:00 08/09/21 19:39 DC 08/08/21 20:35 Risperidone (RisperDAL) 1 mg QHS PO 07/29/21 21:00 08/17/21 07:16 DC 08/15/21 20:22 Sertraline HCl (Zoloft) 25 mg DAILY PO 08/03/21 09:00 08/05/21 12:00 DC 08/05/21 08:32 Sertraline HCl (Zoloft) 50 mg DAILY PO 08/06/21 09:00 08/10/21 20:02 DC 08/10/21 08:48 Ascorbic Acid (Vitamin C) 500 mg BIDWMEALS PO 08/06/21 17:00 08/22/21 16:18 Ferrous Sulfate (Feosol) 325 mg BIDWMEALS PO 08/06/21 17:00 08/22/21 16:18 Risperidone (RisperDAL) 0.5 mg QHS PO 08/09/21 21:00 08/15/21 11:24 DC 08/14/21 20:07 Sertraline HCl (Zoloft) 75 mg DAILY PO 08/11/21 09:00 08/13/21 09:01 DC 08/13/21 08:15 Buspirone HCl (Buspar) 5 mg BID@0900,1700 PO 08/11/21 09:00 08/14/21 17:40 DC 08/14/21 17:22 Sertraline HCl (Zoloft) 100 mg DAILY PO 08/14/21 09:00 08/22/21 07:19 Buspirone HCl (Buspar) 10 mg BID@0900,1700 PO 08/14/21 17:45 08/14/21 17:56 DC Buspirone HCl (Buspar) 10 mg BID@0900,1700 PO 08/15/21 09:00 08/17/21 07:16 DC 08/16/21 08:41 Risperidone (RisperDAL) 0.5 mg 1500 PO 08/15/21 15:00 08/17/21 07:16 DC 08/15/21 15:37 Risperidone (RisperDAL) 0.25 mg DAILY PO 08/15/21 11:30 08/17/21 07:16 DC 08/16/21 08:41 Furosemide (Lasix) 80 mg 1X PO 08/17/21 09:45 08/20/21 13:54 DC 08/17/21 10:32 Furosemide (Lasix) 80 mg 1X PO 08/18/21 11:30 08/20/21 13:54 DC Magnesium Citrate (Citroma) 296 ml 1X ONCE PO 08/18/21 11:30 08/18/21 11:31 DC 08/18/21 12:17 Furosemide (Lasix) 80 mg DAILY PO 08/20/21 14:00 08/22/21 07:20 Quetiapine Fumarate (SEROquel) 25 mg QHS PO 08/22/21 21:00 I have reviewed the current psychotropics carefully including drug interactions. Risk benefit ratio favors no change other than as noted in my dictated progress note. Diagnosis: Problems: (1) Impulse control disorder, unspecified (2) Anxiety disorder, unspecified (3) Dementia, vascular, with depression (4) Dementia, vascular, with delusions (5) Dementia in Alzheimer's disease with depression (6) Dementia in Alzheimer's disease with delusions (7) Dementia of the Alzheimer's type with early onset with behavioral disturba nce (8) Major neurocognitive disorder SOO BAIRES MD Aug 22, 2021 21:06
[2021-08-22] MEDS: QUEtiapine 25 MG TABLET. PO SCH (21:26)
[2021-08-22] MEDS: MIRTAZAPINE 15 MG TABLET PO SCH (21:26)
[2021-08-22] MEDS: traZODone 50 MG TABLET. PO SCH (21:26)
[2021-08-22] MEDS: MELATONIN 3 MG TABLET PO SCH (21:26)
--- NOTE | 2021-08-23 00:27 | NUR ---
Patient was asleep at the beginning of the shift. She was incontinent of bowel, staff changed her and she was mostly cooperative. Patient compliant with medications given crushed in pudding. She has been sleeping well so far this shift.
[2021-08-23 06:21] VITALS: BP 99/57
--- NOTE | 2021-08-23 06:53 | PDOC ---
Exam Note: Troy Note: This note is a late entry for 08/22/2021 covers elements not covered in my initial note. Subjective: The patient was reviewed at treatment team meeting individually in the morning on 08/22/2021 with Katherine Moreno, Eliza Muniz, and Stephani Curry (clinical social work aide), Nuria Bella (Certified Hyperbaric Technician), Martina, activity therapy, and Honey RN, discussed and reviewed the chart. The patient slept 6 hours previous night. Appetite 25%. She needed a straight catheter in the morning. Last evening she urinated on herself. UA has reflex to culture. Patients niece is looking at [facility] or Drive for her. Review of Systems: Ambulation impaired, in wheelchair. No CV, , pulmonary, eye system symptoms on review. Mental Status Exam: The patient is oriented to herself. I met with the patient in her room. Insight and judgment, recent and remote memory, attention and concentration, fund of knowledge is poor consistent with her diagnosis. Laboratory Data: Reviewed. Impression: Major neurocognitive disorder Alzheimer, vascular, with delusions, depression, behavioral disturbance. Anxiety disorder unspecified. Impulse control disorder unspecified. Plan: We will go ahead and add Seroquel 25 mg p.o. h.s. maintain rest of the psychotropics unchanged. Assessment: Vital Signs/I&O: Vital Signs Date Time Temp Pulse Resp B/P (MAP) Pulse Ox O2 Delivery O2 Flow Rate FiO2 08/23/21 06:21 98.0 76 18 99/57 (71) 92 Nasal Cannula 2.0 I & O 08/22/21 08/22/21 08/23/21 15:00 23:00 07:00 Intake Total 360 ml 240 ml Balance 360 ml 240 ml Labs: Laboratory Tests Test 08/22/21 07:52 08/22/21 12:00 08/22/21 17:04 08/22/21 19:13 Glucose (Fingerstick) 106 mg/dL (70-99) H 133 mg/dL (70-99) H 191 mg/dL (70-99) H 174 mg/dL (70-99) H Current Medications: Meds: Laboratory Tests Test 08/22/21 07:52 08/22/21 12:00 08/22/21 17:04 08/22/21 19:13 Glucose (Fingerstick) 106 mg/dL 133 mg/dL 191 mg/dL 174 mg/dL Current Medications Medications (Trade) Dose Ordered Sig/Richard Route PRN Reason Start Time Stop Time Status Last Admin Dose Admin Influenza Virus Vaccine Quadrival (Flulaval Quad Syringe) 0.5 ml ONCE ONCE VAX IM 07/17/21 09:00 07/17/21 09:01 DC 07/17/21 10:00 Acetaminophen (Tylenol) 650 mg PRN Q6HRS PRN PO PAIN/FEVER 07/16/21 22:45 UNV Metformin HCl (Glucophage) 1,000 mg BIDWMEALS PO 07/17/21 08:00 08/22/21 16:18 Nystatin (Mycostatin) 1 sulma PRN BID PRN TP RASH 07/16/21 22:45 Quetiapine Fumarate (SEROquel) 50 mg BID PO 07/17/21 09:00 07/18/21 10:56 DC 07/18/21 08:21 Trazodone HCl (Desyrel) 50 mg QHS PO 07/17/21 21:00 08/22/21 21:26 Non-Formulary Medication (Albuterol Sulfate (Albuterol Sulfate Neb Soln)) 1 vial QID PRN NEB SHORTNESS OF AIR 07/16/21 22:45 UNV Non-Formulary Medication (Insulin Aspart (Insulin Aspart Flexpen)) 100 unit PRN AFTMEALHC PRN SQ ELEVATED BLOOD SUGAR 07/16/21 22:45 UNV Acetaminophen (Tylenol) 650 mg PRN Q6HRS PRN PO MILD PAIN / TEMP > 100.3'F 07/16/21 22:45 08/12/21 08:21 Multi-Ingredient Ointment (Analgesic [place]) 1 sulma PRN QID PRN TP MUSCLE PAIN 07/16/21 22:45 Al Hydroxide/Mg Hydroxide (Mylanta Plus Xs) 15 ml PRN AFTMEALHC PRN PO DYSPEPSIA 07/16/21 22:45 Magnesium Hydroxide (Milk Of Magnesia) 2,400 mg PRN QHS PRN PO CONSTIPATION 07/16/21 22:45 Albuterol Sulfate (Ventolin) 2.5 mg PRN Q6HRS PRN NEB SHORTNESS OF BREATH 07/16/21 23:00 07/17/21 06:25 DC Insulin Human Lispro (HumaLOG) 0-5 UNITS TIDWMEALS SQ 07/17/21 08:00 08/22/21 17:35 Dextrose (Dextrose 50%-Water Syringe) 12.5 gm PRN Q15MIN PRN IV SEE COMMENTS 07/17/21 00:15 Albuterol Sulfate (Ventolin Hfa Inhaler) 1 puff PRN Q6HRS PRN INH SHORTNESS OF BREATH 07/17/21 06:30 Risperidone (RisperDAL) 0.5 mg HS PO 07/18/21 21:00 07/21/21 19:40 DC 07/20/21 20:18 Olanzapine (ZyPREXA ZYDIS) 2.5 mg PRN Q2HR PRN PO PSYCHOSIS 07/18/21 18:15 08/22/21 07:19 Divalproex Sodium (Depakote Sprinkles) 125 mg BID@0900,1700 PO 07/21/21 09:00 07/25/21 01:54 DC 07/24/21 17:08 Risperidone (RisperDAL) 1 mg HS PO 07/21/21 21:00 07/29/21 18:23 DC 07/28/21 20:11 Trazodone HCl (Desyrel) 50 mg PRN QHS PRN PO INSOMNIA 07/21/21 19:45 08/21/21 21:23 Mirtazapine (Remeron) 7.5 mg QHS PO 07/21/21 21:00 07/22/21 19:52 DC 07/21/21 20:04 Mirtazapine (Remeron) 15 mg QHS PO 07/22/21 21:00 08/22/21 21:26 Melatonin (Melatonin) 3 mg QHS PO 07/22/21 21:00 07/23/21 20:00 DC 07/22/21 20:21 Melatonin (Melatonin) 4.5 mg QHS PO 07/23/21 21:00 08/22/21 21:26 Divalproex Sodium (Depakote Sprinkles) 250 mg BID@0900,1700 PO 07/25/21 09:00 07/28/21 19:57 DC 07/28/21 17:07 Nystatin (Nystop) 1 sulma BID TP 07/27/21 21:00 08/22/21 21:26 Divalproex Sodium (Depakote Sprinkles) 375 mg BID@0900,1700 PO 07/29/21 09:00 08/17/21 07:16 DC 08/16/21 08:41 Risperidone (RisperDAL) 0.25 mg QHS PO 07/29/21 21:00 08/09/21 19:39 DC 08/08/21 20:35 Risperidone (RisperDAL) 1 mg QHS PO 07/29/21 21:00 08/17/21 07:16 DC 08/15/21 20:22 Sertraline HCl (Zoloft) 25 mg DAILY PO 08/03/21 09:00 08/05/21 12:00 DC 08/05/21 08:32 Sertraline HCl (Zoloft) 50 mg DAILY PO 08/06/21 09:00 08/10/21 20:02 DC 08/10/21 08:48 Ascorbic Acid (Vitamin C) 500 mg BIDWMEALS PO 08/06/21 17:00 08/22/21 16:18 Ferrous Sulfate (Feosol) 325 mg BIDWMEALS PO 08/06/21 17:00 08/22/21 16:18 Risperidone (RisperDAL) 0.5 mg QHS PO 08/09/21 21:00 08/15/21 11:24 DC 08/14/21 20:07 Sertraline HCl (Zoloft) 75 mg DAILY PO 08/11/21 09:00 08/13/21 09:01 DC 08/13/21 08:15 Buspirone HCl (Buspar) 5 mg BID@0900,1700 PO 08/11/21 09:00 08/14/21 17:40 DC 08/14/21 17:22 Sertraline HCl (Zoloft) 100 mg DAILY PO 08/14/21 09:00 08/22/21 07:19 Buspirone HCl (Buspar) 10 mg BID@0900,1700 PO 08/14/21 17:45 08/14/21 17:56 DC Buspirone HCl (Buspar) 10 mg BID@0900,1700 PO 08/15/21 09:00 08/17/21 07:16 DC 08/16/21 08:41 Risperidone (RisperDAL) 0.5 mg 1500 PO 08/15/21 15:00 08/17/21 07:16 DC 08/15/21 15:37 Risperidone (RisperDAL) 0.25 mg DAILY PO 08/15/21 11:30 08/17/21 07:16 DC 08/16/21 08:41 Furosemide (Lasix) 80 mg 1X PO 08/17/21 09:45 08/20/21 13:54 DC 08/17/21 10:32 Furosemide (Lasix) 80 mg 1X PO 08/18/21 11:30 08/20/21 13:54 DC Magnesium Citrate (Citroma) 296 ml 1X ONCE PO 08/18/21 11:30 08/18/21 11:31 DC 08/18/21 12:17 Furosemide (Lasix) 80 mg DAILY PO 08/20/21 14:00 08/22/21 07:20 Quetiapine Fumarate (SEROquel) 25 mg QHS PO 08/22/21 21:00 08/22/21 21:26 Current Medications Medications (Trade) Dose Ordered Sig/Richard Route PRN Reason Start Time Stop Time Status Last Admin Dose Admin Quetiapine Fumarate (SEROquel) 25 mg QHS PO 08/22/21 21:00 08/22/21 21:26 I have reviewed the current psychotropics carefully including drug interactions. Risk benefit ratio favors no change other than as noted in my dictated progress note. 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
[2021-08-23 07:40] LABS: BASO # 0.1 x10^3/uL (0.0-0.2); BASO % 1 % (0-3); EOS # 0.3 x10^3/uL (0.0-0.7); EOS % 4 % (0-3); LYMPH # 2.7 x10^3/uL (1.0-4.8); LYMPH % 35 % (24-48); MEAN CORPUSCULAR HEMOGLOBIN 26 pg (25-35); MEAN CORPUSCULAR HGB CONC 31 g/dL (31-37); MEAN CORPUSCULAR VOLUME 84 fL (79-100); MONO # 0.6 x10^3/uL (0.0-1.1); MONO % 8 % (0-9); NEUT # 4.1 x10^3uL (1.8-7.7); NEUT % 53 % (31-73); PLATELET COUNT 202 x10^3/uL (140-400); RED BLOOD COUNT 3.84 x10^6/uL (3.50-5.40); RED CELL DISTRIBUTION WIDTH 14.5 % (11.5-14.5); WHITE BLOOD COUNT 7.8 x10^3/uL (4.0-11.0)
[2021-08-23 07:55] LABS: ALBUMIN 2.1 g/dL (3.4-5.0); ALBUMIN/GLOBULIN RATIO 0.5 (1.0-1.7); CALCIUM 8.2 mg/dL (8.5-10.1); GFR 52.8; POTASSIUM 3.6 mmol/L (3.5-5.1); TOTAL BILIRUBIN 0.2 mg/dL (0.2-1.0); TOTAL PROTEIN 6.3 g/dL (6.4-8.2)
[2021-08-23] MEDS: INSULIN LISPRO 300 UNITS/3 ML VIAL. SQ SCH ×3 (08:00→16:47)
[2021-08-23] MEDS: metFORMIN 500 MG TABLET PO SCH (08:39)
[2021-08-23] MEDS: FUROSEMIDE 80 MG TABLET PO SCH (08:39)
[2021-08-23] MEDS: ASCORBIC ACID 500 MG TABLET PO SCH ×2 (08:39→16:46)
[2021-08-23] MEDS: FERROUS SULFATE 325 MG TABLET. PO SCH (08:40)
[2021-08-23] MEDS: SERTRALINE 25 MG TABLET. PO SCH (08:40)
[2021-08-23] MEDS: NYSTATIN TOPICAL POWDER 15GM BOTTLE. TP SCH ×2 (08:42→20:22)
--- NOTE | 2021-08-23 10:27 | NUR ---
Nursing note Pt states she is cold, wants to go to bed, wants more blankets, gets irritable with med pass. Compliant with assessment, mostly compliant with meds. Up in wheel chair in day room currently.
[2021-08-23 15:25] VITALS: BP 113/64
--- NOTE | 2021-08-23 16:40 | NUR ---
CHANA spoke with pt niece, Анна, to follow up on where she was at in the Medicaid application process along with facilities that she was interested in. Анна stated that she was running into complications with obtaining pt bank statements and finding out if pt had any life insurance policies. Анна states that she is continuing to work on those things, but she is consulting with their family family law attorney. Анна states she is scheduled to meet with their family family law attorney on 09/04/21. She further states that the family family law attorney has told her that he would provide her with names of family law attorney's that could help her seek guardianship. Finally Анна stated that she was planning to maintain contact with Van[facility] at [facility] hoping to eventually get pt placed there. Also, Анна was planning to check into [facility] as an option. CHANA questioned the possibility of sending a referral to [facility], but Анна stated that she had a complaint with them for another matter, so that was not going to be an option for placement.
[2021-08-23] MEDS: traZODone 50 MG TABLET. PO SCH (20:21)
[2021-08-23] MEDS: MIRTAZAPINE 15 MG TABLET PO SCH (20:22)
[2021-08-23] MEDS: MELATONIN 3 MG TABLET PO SCH (20:22)
[2021-08-23] MEDS: QUEtiapine 25 MG TABLET. PO SCH (20:22)
[2021-08-23] MEDS: metFORMIN XR 500 MG TAB.ER.24H PO SCH (20:30)
--- NOTE | 2021-08-23 21:05 | PDOC ---
Exam Note: [place] Note: Please also refer to the separate dictated note~for this date of service dictated separately.~Patient seen individually. Discussed the patient with Nursing staff reviewed the chart.~Reviewed interim history and current functioning. Reviewed vital signs,~Labs/ Radiology~and current medications noted below. Continue current treatment with the changes noted in the dictated addendum note Assessment: Vital Signs/I&O: Vital Signs Date Time Temp Pulse Resp B/P (MAP) Pulse Ox O2 Delivery O2 Flow Rate FiO2 08/23/21 15:25 98.1 69 20 113/64 (80) 94 08/23/21 06:21 Nasal Cannula 2.0 I & O 08/22/21 08/22/21 08/23/21 15:00 23:00 07:00 Intake Total 360 ml 240 ml Balance 360 ml 240 ml Labs: Laboratory Tests Test 08/23/21 07:20 08/23/21 07:28 08/23/21 11:25 08/23/21 16:22 White Blood Count 7.8 x10^3/uL (4.0-11.0) Red Blood Count 3.84 x10^6/uL (3.50-5.40) Hemoglobin 10.0 g/dL (12.0-15.5) L Hematocrit 32.0 % (36.0-47.0) L Mean Corpuscular Volume 84 fL (79-100) Mean Corpuscular Hemoglobin 26 pg (25-35) Mean Corpuscular Hemoglobin Concent 31 g/dL (31-37) Red Cell Distribution Width 14.5 % (11.5-14.5) Platelet Count 202 x10^3/uL (140-400) Neutrophils (%) (Auto) 53 % (31-73) Lymphocytes (%) (Auto) 35 % (24-48) Monocytes (%) (Auto) 8 % (0-9) Eosinophils (%) (Auto) 4 % (0-3) H Basophils (%) (Auto) 1 % (0-3) Neutrophils # (Auto) 4.1 x10^3uL (1.8-7.7) Lymphocytes # (Auto) 2.7 x10^3/uL (1.0-4.8) Monocytes # (Auto) 0.6 x10^3/uL (0.0-1.1) Eosinophils # (Auto) 0.3 x10^3/uL (0.0-0.7) Basophils # (Auto) 0.1 x10^3/uL (0.0-0.2) Sodium Level 143 mmol/L (136-145) Potassium Level 3.6 mmol/L (3.5-5.1) Chloride Level 102 mmol/L (98-107) Carbon Dioxide Level 32 mmol/L (21-32) Anion Gap 9 (6-14) Blood Urea Nitrogen 21 mg/dL (7-20) H Creatinine 1.0 mg/dL (0.6-1.0) Estimated GFR (Cockcroft-Gault) 52.8 BUN/Creatinine Ratio 21 (6-20) H Glucose Level 137 mg/dL (70-99) H Calcium Level 8.2 mg/dL (8.5-10.1) L Total Bilirubin 0.2 mg/dL (0.2-1.0) Aspartate Amino Transferase (AST) 25 U/L (15-37) Alanine Aminotransferase (ALT) 19 U/L (14-59) Alkaline Phosphatase 109 U/L (46-116) Total Protein 6.3 g/dL (6.4-8.2) L Albumin 2.1 g/dL (3.4-5.0) L Albumin/Globulin Ratio 0.5 (1.0-1.7) L Glucose (Fingerstick) 130 mg/dL (70-99) H 158 mg/dL (70-99) H 124 mg/dL (70-99) H Test 08/23/21 19:03 Glucose (Fingerstick) 159 mg/dL (70-99) H Current Medications: Meds: Laboratory Tests Test 08/23/21 07:20 08/23/21 07:28 08/23/21 11:25 08/23/21 16:22 White Blood Count 7.8 x10^3/uL Red Blood Count 3.84 x10^6/uL Hemoglobin 10.0 g/dL Hematocrit 32.0 % Mean Corpuscular Volume 84 fL Mean Corpuscular Hemoglobin 26 pg Mean Corpuscular Hemoglobin Concent 31 g/dL Red Cell Distribution Width 14.5 % Platelet Count 202 x10^3/uL Neutrophils (%) (Auto) 53 % Lymphocytes (%) (Auto) 35 % Monocytes (%) (Auto) 8 % Eosinophils (%) (Auto) 4 % Basophils (%) (Auto) 1 % Neutrophils # (Auto) 4.1 x10^3uL Lymphocytes # (Auto) 2.7 x10^3/uL Monocytes # (Auto) 0.6 x10^3/uL Eosinophils # (Auto) 0.3 x10^3/uL Basophils # (Auto) 0.1 x10^3/uL Sodium Level 143 mmol/L Potassium Level 3.6 mmol/L Chloride Level 102 mmol/L Carbon Dioxide Level 32 mmol/L Anion Gap 9 Blood Urea Nitrogen 21 mg/dL Creatinine 1.0 mg/dL Estimated GFR (Cockcroft-Gault) 52.8 BUN/Creatinine Ratio 21 Glucose Level 137 mg/dL Calcium Level 8.2 mg/dL Total Bilirubin 0.2 mg/dL Aspartate Amino Transf (AST/SGOT) 25 U/L Alanine Aminotransferase (ALT/SGPT) 19 U/L Alkaline Phosphatase 109 U/L Total Protein 6.3 g/dL Albumin 2.1 g/dL Albumin/Globulin Ratio 0.5 Glucose (Fingerstick) 130 mg/dL 158 mg/dL 124 mg/dL Test 08/23/21 19:03 Glucose (Fingerstick) 159 mg/dL Current Medications Medications (Trade) Dose Ordered Sig/Richard Route PRN Reason Start Time Stop Time Status Last Admin Dose Admin Influenza Virus Vaccine Quadrival (Flulaval Quad Syringe) 0.5 ml ONCE ONCE VAX IM 07/17/21 09:00 07/17/21 09:01 DC 07/17/21 10:00 Acetaminophen (Tylenol) 650 mg PRN Q6HRS PRN PO PAIN/FEVER 07/16/21 22:45 UNV Metformin HCl (Glucophage) 1,000 mg BIDWMEALS PO 07/17/21 08:00 08/23/21 15:45 DC 08/23/21 08:39 Nystatin (Mycostatin) 1 sulma PRN BID PRN TP RASH 07/16/21 22:45 Quetiapine Fumarate (SEROquel) 50 mg BID PO 07/17/21 09:00 07/18/21 10:56 DC 07/18/21 08:21 Trazodone HCl (Desyrel) 50 mg QHS PO 07/17/21 21:00 08/23/21 20:21 Non-Formulary Medication (Albuterol Sulfate (Albuterol Sulfate Neb Soln)) 1 vial QID PRN NEB SHORTNESS OF AIR 07/16/21 22:45 UNV Non-Formulary Medication (Insulin Aspart (Insulin Aspart Flexpen)) 100 unit PRN AFTMEALHC PRN SQ ELEVATED BLOOD SUGAR 07/16/21 22:45 UNV Acetaminophen (Tylenol) 650 mg PRN Q6HRS PRN PO MILD PAIN / TEMP > 100.3'F 07/16/21 22:45 08/12/21 08:21 Multi-Ingredient Ointment (Analgesic [place]) 1 sulma PRN QID PRN TP MUSCLE PAIN 07/16/21 22:45 Al Hydroxide/Mg Hydroxide (Mylanta Plus Xs) 15 ml PRN AFTMEALHC PRN PO DYSPEPSIA 07/16/21 22:45 Magnesium Hydroxide (Milk Of Magnesia) 2,400 mg PRN QHS PRN PO CONSTIPATION 07/16/21 22:45 Albuterol Sulfate (Ventolin) 2.5 mg PRN Q6HRS PRN NEB SHORTNESS OF BREATH 07/16/21 23:00 07/17/21 06:25 DC Insulin Human Lispro (HumaLOG) 0-5 UNITS TIDWMEALS SQ 07/17/21 08:00 08/22/21 17:35 Dextrose (Dextrose 50%-Water Syringe) 12.5 gm PRN Q15MIN PRN IV SEE COMMENTS 07/17/21 00:15 Albuterol Sulfate (Ventolin Hfa Inhaler) 1 puff PRN Q6HRS PRN INH SHORTNESS OF BREATH 07/17/21 06:30 Risperidone (RisperDAL) 0.5 mg HS PO 07/18/21 21:00 07/21/21 19:40 DC 07/20/21 20:18 Olanzapine (ZyPREXA ZYDIS) 2.5 mg PRN Q2HR PRN PO PSYCHOSIS 07/18/21 18:15 08/22/21 07:19 Divalproex Sodium (Depakote Sprinkles) 125 mg BID@0900,1700 PO 07/21/21 09:00 07/25/21 01:54 DC 07/24/21 17:08 Risperidone (RisperDAL) 1 mg HS PO 07/21/21 21:00 07/29/21 18:23 DC 07/28/21 20:11 Trazodone HCl (Desyrel) 50 mg PRN QHS PRN PO INSOMNIA 07/21/21 19:45 08/21/21 21:23 Mirtazapine (Remeron) 7.5 mg QHS PO 07/21/21 21:00 07/22/21 19:52 DC 07/21/21 20:04 Mirtazapine (Remeron) 15 mg QHS PO 07/22/21 21:00 08/23/21 20:22 Melatonin (Melatonin) 3 mg QHS PO 07/22/21 21:00 07/23/21 20:00 DC 07/22/21 20:21 Melatonin (Melatonin) 4.5 mg QHS PO 07/23/21 21:00 08/23/21 20:22 Divalproex Sodium (Depakote Sprinkles) 250 mg BID@0900,1700 PO 07/25/21 09:00 07/28/21 19:57 DC 07/28/21 17:07 Nystatin (Nystop) 1 sulma BID TP 07/27/21 21:00 08/23/21 20:22 Divalproex Sodium (Depakote Sprinkles) 375 mg BID@0900,1700 PO 07/29/21 09:00 08/17/21 07:16 DC 08/16/21 08:41 Risperidone (RisperDAL) 0.25 mg QHS PO 07/29/21 21:00 08/09/21 19:39 DC 08/08/21 20:35 Risperidone (RisperDAL) 1 mg QHS PO 07/29/21 21:00 08/17/21 07:16 DC 08/15/21 20:22 Sertraline HCl (Zoloft) 25 mg DAILY PO 08/03/21 09:00 08/05/21 12:00 DC 08/05/21 08:32 Sertraline HCl (Zoloft) 50 mg DAILY PO 08/06/21 09:00 08/10/21 20:02 DC 08/10/21 08:48 Ascorbic Acid (Vitamin C) 500 mg BIDWMEALS PO 08/06/21 17:00 08/23/21 16:46 Ferrous Sulfate (Feosol) 325 mg BIDWMEALS PO 08/06/21 17:00 08/23/21 15:45 DC 08/23/21 08:40 Risperidone (RisperDAL) 0.5 mg QHS PO 08/09/21 21:00 08/15/21 11:24 DC 08/14/21 20:07 Sertraline HCl (Zoloft) 75 mg DAILY PO 08/11/21 09:00 08/13/21 09:01 DC 08/13/21 08:15 Buspirone HCl (Buspar) 5 mg BID@0900,1700 PO 08/11/21 09:00 08/14/21 17:40 DC 08/14/21 17:22 Sertraline HCl (Zoloft) 100 mg DAILY PO 08/14/21 09:00 08/23/21 08:40 Buspirone HCl (Buspar) 10 mg BID@0900,1700 PO 08/14/21 17:45 08/14/21 17:56 DC Buspirone HCl (Buspar) 10 mg BID@0900,1700 PO 08/15/21 09:00 08/17/21 07:16 DC 08/16/21 08:41 Risperidone (RisperDAL) 0.5 mg 1500 PO 08/15/21 15:00 08/17/21 07:16 DC 08/15/21 15:37 Risperidone (RisperDAL) 0.25 mg DAILY PO 08/15/21 11:30 08/17/21 07:16 DC 08/16/21 08:41 Furosemide (Lasix) 80 mg 1X PO 08/17/21 09:45 08/20/21 13:54 DC 08/17/21 10:32 Furosemide (Lasix) 80 mg 1X PO 08/18/21 11:30 08/20/21 13:54 DC Magnesium Citrate (Citroma) 296 ml 1X ONCE PO 08/18/21 11:30 08/18/21 11:31 DC 08/18/21 12:17 Furosemide (Lasix) 80 mg DAILY PO 08/20/21 14:00 08/23/21 08:39 Quetiapine Fumarate (SEROquel) 25 mg QHS PO 08/22/21 21:00 08/23/21 20:22 Metformin HCl (Glucophage Xr) 500 mg BID PO 08/23/21 21:00 08/23/21 20:30 Current Medications Medications (Trade) Dose Ordered Sig/Richard Route PRN Reason Start Time Stop Time Status Last Admin Dose Admin Metformin HCl (Glucophage Xr) 500 mg BID PO 08/23/21 21:00 08/23/21 20:30 I have reviewed the current psychotropics carefully including drug interactions. Risk benefit ratio favors no change other than as noted in my dictated progress note. Diagnosis: Problems: (1) Impulse control disorder, unspecified (2) Anxiety disorder, unspecified (3) Dementia, vascular, with depression (4) Dementia, vascular, with delusions (5) Dementia in Alzheimer's disease with depression (6) Dementia in Alzheimer's disease with delusions (7) Dementia of the Alzheimer's type with early onset with behavioral disturbance (8) Major neurocognitive disorder SOO BAIRES MD Aug 23, 2021 21:05
--- NOTE | 2021-08-24 00:42 | NUR ---
Patient has been sleeping and has also had periods of yelling out. She yells "oh my God, oh my God" and "help me, help me". At one point she was delusional and stated that she needed to "pay a bill". Patient talks to herself and answers herself. Nurse is unable to tell if patient is hallucinating or merely delusional at this time. Patient compliant with medications given crushed in applesauce.
[2021-08-24] MEDS: traZODone 50 MG TABLET. PO PRN ×2 (01:27→22:13)
--- NOTE | 2021-08-24 01:28 | NUR ---
patient awake, saying "oh my God" over and over. She is unable to say what she needs but is disturbing others. PRN trazodone given for insomnia and PRN zyprexa given for psychosis/agitation. Will continue to monitor. Addendum: 08/24/21 at 0147 by ELOINA LUNDY RN Staff x2 toileted patient, she was able to void a large amount of urine into toilet. She was assisted back to bed and is saying "oh my God" less. Patient compliant with PRN medications given crushed in applesauce.
[2021-08-24 05:47] VITALS: BP 106/54
--- NOTE | 2021-08-24 07:53 | PDOC ---
Exam Note: [place] Note: This note is a late entry for 08/23/2021 covers elements not covered in my initial note. Subjective: The patient was seen individually in the evening of 08/23/2021 with Iris TANG, discussed and reviewed the chart. The patient slept 8-1/2 hours previous night. Overall she has been intermittently psychotic, talking to herself, confused, anxious but redirectable. Review of Systems: Ambulation impaired, in wheelchair. No CV, , pulmonary, eye system symptoms on review. Mental Status Exam: The patient is oriented to herself. Insight and judgment, recent and remote memory, attention and concentration, fund of knowledge is poor consistent with her diagnosis. Laboratory Data: Reviewed. Patients UA shows greater 100,000 gram negative organisms. Culture awaited before we treat it. Impression: Major neurocognitive disorder Alzheimer, vascular, with delusions, depression, behavioral disturbance. Anxiety disorder unspecified. Impulse control disorder unspecified. Probable UTI. Plan: Maintain rest of the psychotropics unchanged. Treat the UTI once sensit ivity returns. Assessment: Vital Signs/I&O: Vital Signs Date Time Temp Pulse Resp B/P (MAP) Pulse Ox O2 Delivery O2 Flow Rate FiO2 08/24/21 05:47 97.3 74 20 106/54 (71) 90 Nasal Cannula 2.0 I & O 08/23/21 08/23/21 08/24/21 15:00 23:00 07:00 Intake Total 500 ml 120 ml Balance 500 ml 120 ml Labs: Laboratory Tests Test 08/23/21 11:25 08/23/21 16:22 08/23/21 19:03 08/24/21 07:14 Glucose (Fingerstick) 158 mg/dL (70-99) H 124 mg/dL (70-99) H 159 mg/dL (70-99) H 113 mg/dL (70-99) H Current Medications: Meds: Laboratory Tests Test 08/23/21 11:25 08/23/21 16:22 08/23/21 19:03 08/24/21 07:14 Glucose (Fingerstick) 158 mg/dL 124 mg/dL 159 mg/dL 113 mg/dL Current Medications Medications (Trade) Dose Ordered Sig/Richard Route PRN Reason Start Time Stop Time Status Last Admin Dose Admin Influenza Virus Vaccine Quadrival (Flulaval Quad 3523-5437 Syringe) 0.5 ml ONCE ONCE VAX IM 07/17/21 09:00 07/17/21 09:01 DC 07/17/21 10:00 Acetaminophen (Tylenol) 650 mg PRN Q6HRS PRN PO PAIN/FEVER 07/16/21 22:45 UNV Metformin HCl (Glucophage) 1,000 mg BIDWMEALS PO 07/17/21 08:00 08/23/21 15:45 DC 08/23/21 08:39 Nystatin (Mycostatin) 1 sulma PRN BID PRN TP RASH 07/16/21 22:45 Quetiapine Fumarate (SEROquel) 50 mg BID PO 07/17/21 09:00 07/18/21 10:56 DC 07/18/21 08:21 Trazodone HCl (Desyrel) 50 mg QHS PO 07/17/21 21:00 08/23/21 20:21 Non-Formulary Medication (Albuterol Sulfate (Albuterol Sulfate Neb Soln)) 1 vial QID PRN NEB SHORTNESS OF AIR 07/16/21 22:45 UNV Non-Formulary Medication (Insulin Aspart (Insulin Aspart Flexpen)) 100 unit PRN AFTMEALHC PRN SQ ELEVATED BLOOD SUGAR 07/16/21 22:45 UNV Acetaminophen (Tylenol) 650 mg PRN Q6HRS PRN PO MILD PAIN / TEMP > 100.3'F 07/16/21 22:45 08/12/21 08:21 Multi-Ingredient Ointment (Analgesic [place]) 1 sulma PRN QID PRN TP MUSCLE PAIN 07/16/21 22:45 Al Hydroxide/Mg Hydroxide (Mylanta Plus Xs) 15 ml PRN AFTMEALHC PRN PO DYSPEPSIA 07/16/21 22:45 Magnesium Hydroxide (Milk Of Magnesia) 2,400 mg PRN QHS PRN PO CONSTIPATION 07/16/21 22:45 Albuterol Sulfate (Ventolin) 2.5 mg PRN Q6HRS PRN NEB SHORTNESS OF BREATH 07/16/21 23:00 07/17/21 06:25 DC Insulin Human Lispro (HumaLOG) 0-5 UNITS TIDWMEALS SQ 07/17/21 08:00 08/22/21 17:35 Dextrose (Dextrose 50%-Water Syringe) 12.5 gm PRN Q15MIN PRN IV SEE COMMENTS 07/17/21 00:15 Albuterol Sulfate (Ventolin Hfa Inhaler) 1 puff PRN Q6HRS PRN INH SHORTNESS OF BREATH 07/17/21 06:30 Risperidone (RisperDAL) 0.5 mg HS PO 07/18/21 21:00 07/21/21 19:40 DC 07/20/21 20:18 Olanzapine (ZyPREXA ZYDIS) 2.5 mg PRN Q2HR PRN PO PSYCHOSIS 07/18/21 18:15 08/24/21 01:28 Divalproex Sodium (Depakote Sprinkles) 125 mg BID@0900,1700 PO 07/21/21 09:00 07/25/21 01:54 DC 07/24/21 17:08 Risperidone (RisperDAL) 1 mg HS PO 07/21/21 21:00 07/29/21 18:23 DC 07/28/21 20:11 Trazodone HCl (Desyrel) 50 mg PRN QHS PRN PO INSOMNIA 07/21/21 19:45 08/24/21 01:27 Mirtazapine (Remeron) 7.5 mg QHS PO 07/21/21 21:00 07/22/21 19:52 DC 07/21/21 20:04 Mirtazapine (Remeron) 15 mg QHS PO 07/22/21 21:00 08/23/21 20:22 Melatonin (Melatonin) 3 mg QHS PO 07/22/21 21:00 07/23/21 20:00 DC 07/22/21 20:21 Melatonin (Melatonin) 4.5 mg QHS PO 07/23/21 21:00 08/23/21 20:22 Divalproex Sodium (Depakote Sprinkles) 250 mg BID@0900,1700 PO 07/25/21 09:00 07/28/21 19:57 DC 07/28/21 17:07 Nystatin (Nystop) 1 sulma BID TP 07/27/21 21:00 08/23/21 20:22 Divalproex Sodium (Depakote Sprinkles) 375 mg BID@0900,1700 PO 07/29/21 09:00 08/17/21 07:16 DC 08/16/21 08:41 Risperidone (RisperDAL) 0.25 mg QHS PO 07/29/21 21:00 08/09/21 19:39 DC 08/08/21 20:35 Risperidone (RisperDAL) 1 mg QHS PO 07/29/21 21:00 08/17/21 07:16 DC 08/15/21 20:22 Sertraline HCl (Zoloft) 25 mg DAILY PO 08/03/21 09:00 08/05/21 12:00 DC 08/05/21 08:32 Sertraline HCl (Zoloft) 50 mg DAILY PO 08/06/21 09:00 08/10/21 20:02 DC 08/10/21 08:48 Ascorbic Acid (Vitamin C) 500 mg BIDWMEALS PO 08/06/21 17:00 08/23/21 16:46 Ferrous Sulfate (Feosol) 325 mg BIDWMEALS PO 08/06/21 17:00 08/23/21 15:45 DC 08/23/21 08:40 Risperidone (RisperDAL) 0.5 mg QHS PO 08/09/21 21:00 08/15/21 11:24 DC 08/14/21 20:07 Sertraline HCl (Zoloft) 75 mg DAILY PO 08/11/21 09:00 08/13/21 09:01 DC 08/13/21 08:15 Buspirone HCl (Buspar) 5 mg BID@0900,1700 PO 08/11/21 09:00 08/14/21 17:40 DC 08/14/21 17:22 Sertraline HCl (Zoloft) 100 mg DAILY PO 08/14/21 09:00 08/23/21 08:40 Buspirone HCl (Buspar) 10 mg BID@0900,1700 PO 08/14/21 17:45 08/14/21 17:56 DC Buspirone HCl (Buspar) 10 mg BID@0900,1700 PO 08/15/21 09:00 08/17/21 07:16 DC 08/16/21 08:41 Risperidone (RisperDAL) 0.5 mg 1500 PO 08/15/21 15:00 08/17/21 07:16 DC 08/15/21 15:37 Risperidone (RisperDAL) 0.25 mg DAILY PO 08/15/21 11:30 08/17/21 07:16 DC 08/16/21 08:41 Furosemide (Lasix) 80 mg 1X PO 08/17/21 09:45 08/20/21 13:54 DC 08/17/21 10:32 Furosemide (Lasix) 80 mg 1X PO 08/18/21 11:30 08/20/21 13:54 DC Magnesium Citrate (Citroma) 296 ml 1X ONCE PO 08/18/21 11:30 08/18/21 11:31 DC 08/18/21 12:17 Furosemide (Lasix) 80 mg DAILY PO 08/20/21 14:00 08/23/21 08:39 Quetiapine Fumarate (SEROquel) 25 mg QHS PO 08/22/21 21:00 08/23/21 20:22 Metformin HCl (Glucophage Xr) 500 mg BID PO 08/23/21 21:00 08/23/21 20:30 Current Medications Medications (Trade) Dose Ordered Sig/Richard Route PRN Reason Start Time Stop Time Status Last Admin Dose Admin Metformin HCl (Glucophage Xr) 500 mg BID PO 08/23/21 21:00 08/23/21 20:30 I have reviewed the current psychotropics carefully including drug interactions. Risk benefit ratio favors no change other than as noted in my dictated progress note. Diagnosis: Problems: (1) Impulse control disorder, unspecified (2) Anxiety disorder, unspecified (3) Dementia, vascular, with depression (4) Dementia, vascular, with delusions (5) Dementia in Alzheimer's disease with depression (6) Dementia in Alzheimer's disease with delusions (7) Dementia of the Alzheimer's type with early onset with behavioral dis turbance (8) Major neurocognitive disorder (9) UTI (urinary tract infection) SOO BAIRES MD Aug 24, 2021 07:53
[2021-08-24] MEDS: INSULIN LISPRO 300 UNITS/3 ML VIAL. SQ SCH ×3 (08:00→16:59)
[2021-08-24] MEDS: FUROSEMIDE 80 MG TABLET PO SCH (08:24)
[2021-08-24] MEDS: SERTRALINE 25 MG TABLET. PO SCH (08:24)
[2021-08-24] MEDS: NYSTATIN TOPICAL POWDER 15GM BOTTLE. TP SCH ×2 (08:25→20:21)
[2021-08-24] MEDS: metFORMIN XR 500 MG TAB.ER.24H PO SCH ×2 (08:25→20:21)
[2021-08-24] MEDS: ASCORBIC ACID 500 MG TABLET PO SCH ×2 (08:25→16:58)
[2021-08-24 15:02] VITALS: BP 107/66
--- NOTE | 2021-08-24 15:15 | NUR ---
Pt up in wc for meals and propells self in dun[place]. Has been compliant with meds and cares.
[2021-08-24] MEDS: MELATONIN 3 MG TABLET PO SCH (20:21)
[2021-08-24] MEDS: traZODone 50 MG TABLET. PO SCH (20:21)
[2021-08-24] MEDS: QUEtiapine 25 MG TABLET. PO SCH (20:21)
[2021-08-24] MEDS: MIRTAZAPINE 15 MG TABLET PO SCH (20:21)
--- NOTE | 2021-08-24 22:13 | PN ---
DATE: 08/24/2021 SUBJECTIVE: The patient was seen today, met with the staff. Chart reviewed and also covering for Dr. Alicea. The patient continues to have problems, recently treated for UTI. Continues to have auditory hallucinations and also delusional thinking, stays in bed most of the time. She is also irritable and rice. OBSERVATION: VITAL SIGNS: Temperature 97.3, blood pressure 106/54, pulse 74, respirations 20, O2 sat 90%. GENERAL: Slept about 6 hours last night. The patient's appetite is fair. CURRENT MEDICATIONS: Include Seroquel 25 mg at night, Zoloft 100 mg at night, melatonin 4.5 mg at night, mirtazapine 15 mg at night, trazodone 50 mg at night p.r.n., olanzapine 2.5 mg q. 2 hours p.r.n., trazodone 50 mg at night. The patient is not having any side effects to medications. LABORATORY DATA: The patient's lab reviewed. ASSESSMENT: 1. Major neurocognitive disorder, Alzheimer's, vascular with delusion, depression and behavioral disturbances. 2. Anxiety disorder, unspecified. 3. Impulse control disorder, unspecified. PLAN: To continue with the treatment. LENGTH OF STAY: Five days. NICHO DR: [place] TID: [id number]
--- NOTE | 2021-08-24 23:20 | NUR ---
Pt pleasant and calm earlier this evening. Compliant with whole medications and cares without much yelling out. Later in the evening, pt became anxious, repeatedly yelling out "oh God, oh God." PRN Trazodone and Zydis administered at that times. Pt currently sleeping.
[2021-08-25 05:27] VITALS: BP 110/53
[2021-08-25] MEDS: INSULIN LISPRO 300 UNITS/3 ML VIAL. SQ SCH ×3 (08:00→17:00)
[2021-08-25] MEDS: ASCORBIC ACID 500 MG TABLET PO SCH ×2 (08:34→17:22)
[2021-08-25] MEDS: SERTRALINE 25 MG TABLET. PO SCH (08:34)
[2021-08-25] MEDS: metFORMIN XR 500 MG TAB.ER.24H PO SCH ×2 (08:34→19:57)
[2021-08-25] MEDS: FUROSEMIDE 80 MG TABLET PO SCH (08:34)
[2021-08-25] MEDS: NYSTATIN TOPICAL POWDER 15GM BOTTLE. TP SCH ×2 (08:35→20:00)
--- NOTE | 2021-08-25 15:16 | NUR ---
Nursing note: Patient was in the dinning room for morning medications & assessment. She is compliant with medications taken crushed/floated in pudding. She is A/O to self & current year. She yells out unprovoked, demanding, as well as sarcastic. Patient propels self in w/c, requires standby transfer assist, at times she may require a 2:1 transfer assist. She is confused, hyperverbal, resistive to cares, disorganized, & delusional. She has been propelling self through the duncan, refused to go to day room to participate in group. She has been able to void on her own. She is currently resting in bed with eyes closed. Will continue to monitor.
[2021-08-25 15:36] VITALS: BP 135/76
[2021-08-25] MEDS: MELATONIN 3 MG TABLET PO SCH (19:57)
[2021-08-25] MEDS: MIRTAZAPINE 15 MG TABLET PO SCH (19:57)
[2021-08-25] MEDS: QUEtiapine 25 MG TABLET. PO SCH (19:57)
[2021-08-25] MEDS: traZODone 50 MG TABLET. PO SCH (19:57)
[2021-08-25] MEDS: SMZ/TMP 800/160MG TABLET. PO SCH (20:00)
[2021-08-25] MEDS: LACTOBACILLUS RHAMNOSUS GG 1 CAPSULE. PO SCH (20:00)
--- NOTE | 2021-08-25 21:44 | PN ---
DATE: 08/25/2021 SUBJECTIVE: The patient was seen today, met with the staff, chart reviewed, and also covering for Dr. Alicea. The patient apparently staying in bed most of the time. The patient complains of increased anxiety, tends to pace a lot. The patient overall has shown some improvement. OBSERVATION: VITAL SIGNS: Temperature 97.1, blood pressure 110/53, pulse 70, respirations 20, O2 sat 96%. GENERAL: Slept about 6 hours last night. LABORATORY DATA: Reviewed. CURRENT MEDICATIONS: Include Zoloft 100 mg at night, mirtazapine 15 mg at night, trazodone 50 mg at night, melatonin 4.5 mg at night, Seroquel 25 mg at night. The patient is not having any side effects to medications. ASSESSMENT: 1. Major neurocognitive disorder, most likely Alzheimer's, vascular with delusion, depression, and behavioral disturbances. 2. Anxiety disorder, unspecified. PLAN: To continue with the treatment. Length of stay 2-3 days. The patient also stating that she will be leaving in the next couple of days. MARYANNE DR: [place] TID: [id number]
--- NOTE | 2021-08-25 23:56 | NUR ---
Pt sitting calmly in her room this evening. Compliant with whole medications. Pt urinating on her own and did have a wet brief before bed. Once in bed, pt has been yelling out intermittently.
[2021-08-26] MEDS: traZODone 50 MG TABLET. PO PRN (00:43)
[2021-08-26 05:47] VITALS: BP 108/55
[2021-08-26] MEDS: INSULIN LISPRO 300 UNITS/3 ML VIAL. SQ SCH ×3 (08:00→17:00)
[2021-08-26] MEDS: LACTOBACILLUS RHAMNOSUS GG 1 CAPSULE. PO SCH ×2 (08:32→20:22)
[2021-08-26] MEDS: ASCORBIC ACID 500 MG TABLET PO SCH ×2 (08:32→17:26)
[2021-08-26] MEDS: metFORMIN XR 500 MG TAB.ER.24H PO SCH ×2 (08:33→20:22)
[2021-08-26] MEDS: NYSTATIN TOPICAL POWDER 15GM BOTTLE. TP SCH ×2 (08:33→20:23)
[2021-08-26] MEDS: FUROSEMIDE 80 MG TABLET PO SCH (08:33)
[2021-08-26] MEDS: SMZ/TMP 800/160MG TABLET. PO SCH ×2 (08:33→20:22)
[2021-08-26] MEDS: SERTRALINE 25 MG TABLET. PO SCH (08:33)
--- NOTE | 2021-08-26 14:24 | NUR ---
Nursing note: Patient was in the dinning room for morning medications & assessment. She is compliant with medications taken crushed/floated in pudding. She is A/O to self & date. She is calm, confused, disorganized, hyperverbal, & playfully sarcastic. Patient propels self in w/c, requires standby transfer assist. She has been propelling self through the duncan. She has been able to void on her own. She is currently sitting in her w/c in the duncan. Will continue to monitor.
[2021-08-26 15:34] VITALS: BP 116/72
[2021-08-26] MEDS: QUEtiapine 25 MG TABLET. PO SCH (20:23)
[2021-08-26] MEDS: traZODone 50 MG TABLET. PO SCH (20:23)
[2021-08-26] MEDS: MELATONIN 3 MG TABLET PO SCH (20:23)
[2021-08-26] MEDS: MIRTAZAPINE 15 MG TABLET PO SCH (20:23)
--- NOTE | 2021-08-26 22:37 | NUR ---
Pt located in her room this evening. Pt continues to be hyperverbal, talking to herself in her room. Pt yelling out intermittently asking for Sp and repeating "oh God." Compliant with whole medications. Pt currently sleeping.
[2021-08-27 05:38] VITALS: BP 106/53
[2021-08-27] MEDS: INSULIN LISPRO 300 UNITS/3 ML VIAL. SQ SCH ×3 (08:00→17:00)
[2021-08-27] MEDS: ASCORBIC ACID 500 MG TABLET PO SCH ×2 (08:32→17:17)
[2021-08-27] MEDS: SERTRALINE 25 MG TABLET. PO SCH (08:32)
[2021-08-27] MEDS: SMZ/TMP 800/160MG TABLET. PO SCH ×2 (08:33→20:46)
[2021-08-27] MEDS: LACTOBACILLUS RHAMNOSUS GG 1 CAPSULE. PO SCH ×2 (08:33→20:46)
[2021-08-27] MEDS: metFORMIN XR 500 MG TAB.ER.24H PO SCH ×3 (08:33→20:48)
[2021-08-27] MEDS: FUROSEMIDE 80 MG TABLET PO SCH (08:33)
[2021-08-27] MEDS: NYSTATIN TOPICAL POWDER 15GM BOTTLE. TP SCH ×2 (09:00→20:46)
--- NOTE | 2021-08-27 10:20 | PN ---
DATE: 08/26/2021 SUBJECTIVE: The patient was seen today, met with the staff. Chart reviewed and also covering for Dr. Alicea. The patient's behavior remains the same. She is still confused. Short-term memory, some emotional lability. Today, she is feeling tired, weak, also feeling sick, decreased appetite. Staff reports no major behavior problems. The patient's family is concerned about her. The patient denies of any problems. The patient also having major cognitive deficits. PHYSICAL EXAMINATION: VITAL SIGNS: Temperature 98.1, blood pressure 108/55, respirations 20, pulse 73, O2 sat 93%. GENERAL: Slept about 5 hours last night. The patient's appetite is fair. LABORATORY DATA: The patient's lab reviewed. CURRENT MEDICATIONS: Include Zoloft 100 mg at night, mirtazapine 15 mg at night, trazodone 50 mg at night, melatonin 4.5 mg at night, Seroquel 25 mg at night. The patient denies of any side effects to medications. ASSESSMENT: 1. Major neurocognitive disorder, most likely Alzheimer's, vascular with delusion, depression and behavioral disturbances. 2. Anxiety disorder, unspecified. PLAN: To continue with the treatment. LENGTH OF STAY: 3 days. BOBBY/ROSALIO/DINESH DR: BOBBY/dilshad TID: [id number] [facility]
[2021-08-27] MEDS: ACETAMINOPHEN 325 MG TABLET PO PRN (11:55)
[2021-08-27 15:06] VITALS: BP 110/62
[2021-08-27] MEDS: traZODone 50 MG TABLET. PO SCH (20:47)
[2021-08-27] MEDS: MIRTAZAPINE 15 MG TABLET PO SCH (20:47)
[2021-08-27] MEDS: QUEtiapine 25 MG TABLET. PO SCH (20:47)
[2021-08-27] MEDS: MELATONIN 3 MG TABLET PO SCH (20:47)
--- NOTE | 2021-08-28 01:37 | PN ---
DATE: 08/27/2021 SUBJECTIVE: The patient was seen today, met with the staff, chart reviewed. The patient still has periods of confusion, significant short-term memory deficit. The patient denies that she is having any problems today as she was feeling sick and also was complaining of nausea yesterday. The patient apparently not showing much insight to her problems. OBSERVATION: VITAL SIGNS: Temperature 98.8, blood pressure 106/53, pulse 77, respirations 20, O2 sat 91%. GENERAL: Slept about 6 hours last night. LABORATORY DATA: The patient's lab reviewed. CURRENT MEDICATIONS: She is currently on Zoloft 50 mg at night, mirtazapine 15 mg at night, trazodone 50 mg at night, melatonin 4.5 mg at night, Seroquel 25 mg at night. The patient denies any side effects to medications. 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 PLAN: To continue with the treatment. LENGTH OF STAY: Three to five days. SHANNA/PAULINE DR: [place] TID: [id number]
[2021-08-28 06:03] VITALS: BP 98/58
[2021-08-28] MEDS: SERTRALINE 25 MG TABLET. PO SCH (08:31)
[2021-08-28] MEDS: FUROSEMIDE 80 MG TABLET PO SCH (08:31)
[2021-08-28] MEDS: LACTOBACILLUS RHAMNOSUS GG 1 CAPSULE. PO SCH ×2 (08:31→20:23)
[2021-08-28] MEDS: SMZ/TMP 800/160MG TABLET. PO SCH ×2 (08:31→20:23)
[2021-08-28] MEDS: metFORMIN XR 500 MG TAB.ER.24H PO SCH (08:31)
[2021-08-28] MEDS: INSULIN LISPRO 300 UNITS/3 ML VIAL. SQ SCH ×3 (08:35→17:00)
[2021-08-28] MEDS: NYSTATIN TOPICAL POWDER 15GM BOTTLE. TP SCH (09:30)
[2021-08-28] MEDS ORDERED: NYSTATIN TOPICAL POWDER 15GM BOTTLE. TP PRN (12:30)
[2021-08-28 15:33] VITALS: BP 106/64
--- NOTE | 2021-08-28 18:28 | NUR ---
Patient has been calm, disorganized, cooperative, and pleasantly confused throughout this shift. She has been repeatedly calling out at times, usually while withdrawn to her room. She has also had conversations with herself while alone in her room. Patient sat in during group but did not participate. Will continue to monitor and report to oncoming shift.
[2021-08-28] MEDS: MIRTAZAPINE 15 MG TABLET PO SCH (20:23)
[2021-08-28] MEDS: traZODone 50 MG TABLET. PO SCH (20:23)
[2021-08-28] MEDS: MELATONIN 3 MG TABLET PO SCH (20:24)
[2021-08-28] MEDS: QUEtiapine 25 MG TABLET. PO SCH (20:25)
[2021-08-28] MEDS: metFORMIN 500 MG TABLET PO SCH (20:25)
[2021-08-28] MEDS: ACETAMINOPHEN 325 MG TABLET PO PRN (20:29)
--- NOTE | 2021-08-28 23:01 | NUR ---
Patient has been withdrawn to her room tonight and she is compliant with medications given crushed in a bite of pudding. Patient had been yelling "Oh my God" and calling for "Oskar" this was disturbing the patient in the next room. Pt seemed to be getting agitated and is very confused tonight. Nurse reoriented her to location of Hospital several times, but she does not have any recall of the conversation. She is oriented only to herself at this time. PRN zyprexa given for agitation at 2100. Patient is asleep at this time. Will continue to monitor.
--- NOTE | 2021-08-29 01:39 | PN ---
DATE: 08/28/2021 SUBJECTIVE: The patient was seen today, met with the staff. Chart was reviewed and also covering for Dr. Alicea. Staff reports no major behavior problems today. She is out of her bed, currently on wheelchair. No falls. She continues to have short-term memory, not able to recall recent events. She also gets confused at times, constantly seeking help and reassurance. Staff also observed that she has been talking to herself most likely hallucinating, responding to the voices. The patient is able to take care of her needs. Able to feed herself. She did not have any falls. OBJECTIVE: VITAL SIGNS: Temperature 98.7, blood pressure 98/58, pulse 66, respirations 17, O2 sat 94%. GENERAL: Slept about 8 hours last night. The patient's appetite improved. LABORATORY DATA: The patient's lab reviewed. CURRENT MEDICATIONS: The patient's current medications include Zoloft 50 mg at night, mirtazapine 15 mg at night, trazodone 50 mg at night, melatonin 4.5 mg at night, Seroquel 25 mg at night. The patient is not experiencing any side effects to medications. 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 PLAN: To continue with the treatment. LENGTH OF STAY: Three to five days. RENEE DR: [place] TID: [id number]
[2021-08-29 05:29] VITALS: BP 104/51
[2021-08-29] MEDS: INSULIN LISPRO 300 UNITS/3 ML VIAL. SQ SCH ×3 (08:00→18:00)
[2021-08-29] MEDS: metFORMIN 500 MG TABLET PO SCH ×2 (08:26→20:06)
[2021-08-29] MEDS: FUROSEMIDE 80 MG TABLET PO SCH (08:26)
[2021-08-29] MEDS: LACTOBACILLUS RHAMNOSUS GG 1 CAPSULE. PO SCH ×2 (08:26→20:05)
[2021-08-29] MEDS: SERTRALINE 25 MG TABLET. PO SCH (08:26)
[2021-08-29] MEDS: SMZ/TMP 800/160MG TABLET. PO SCH ×2 (08:26→20:06)
--- NOTE | 2021-08-29 12:25 | NUR ---
WEEKLY ACTIVITY THERAPY NOTE Date of Admission:07/16/21 Date of AT Assessment: 07/18 Precipitating behaviors that initiated intake and admission: Pt hallucinating, irritable calling out angry, confused, Delusions, combative, verbal aggression Goal aimed: increase socialization and engagement Initial Goal: Pt will participate in at least three activity therapy sessions per week Goal changed 08/08:Pt will participate in at least three activity therapy sessions before discharge Weekly progress towards goal: on track (08/23-country/western bingo, 08/28-leisure and emotions) Group participation level: 2 min Weekly highlights: socialized with peers and staff during bingo Thursday, azeb emotion slip from box Thursday morning Behaviors observed: calm and pleasant Plan: no change to goal Beneficial adaptations: socialization
[2021-08-29 15:44] VITALS: BP 108/47
--- NOTE | 2021-08-29 18:00 | NUR ---
Patient FSBS was 184, she refused to come to the dining room to eat dinner stating she was too tired to eat. Keith held, will continue to monitor.
--- NOTE | 2021-08-29 18:26 | NUR ---
Patient has been calm, disorganized, cooperative, and pleasantly confused throughout this shift. She has repeatedly called out at times, usually when she has unmet needs such as needing to use the toilet or wanting to get into or out of bed. Patient sat in afternoon group with minimal participation. Will continue to monitor and report to oncoming shift.
[2021-08-29] MEDS: MIRTAZAPINE 15 MG TABLET PO SCH (20:05)
[2021-08-29] MEDS: traZODone 50 MG TABLET. PO SCH (20:06)
[2021-08-29] MEDS: QUEtiapine 25 MG TABLET. PO SCH (20:06)
[2021-08-29] MEDS: MELATONIN 3 MG TABLET PO SCH (20:06)
--- NOTE | 2021-08-30 02:26 | PN ---
DATE: 08/29/2021 SUBJECTIVE: The patient was seen today, met with the staff, chart reviewed. The patient's behavior remains the same, increased anxiety and also she is talking to herself at times and inappropriate behaviors. The patient most of the time stay in her room tend to isolate herself. She also tend to call out for help frequently. The patient is awaiting for guardianship and placement. VITAL SIGNS: Stable. Slept about 7-1/2 hours last night, ate 75% of her meals. CURRENT MEDICATIONS: Include Zoloft 50 mg at night, mirtazapine 15 mg at night, trazodone 50 mg at night, melatonin 4.5 mg at night, Seroquel 25 mg at night. The patient is not experiencing any side effects to medications. LABORATORY DATA: The patient's lab reviewed. 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 PLAN: To continue with the treatment. LENGTH OF STAY: Three to five days. MELIZA DR: [place] TID: [id number]
--- NOTE | 2021-08-30 03:01 | NUR ---
Pt has been mainly in her room tonight and has been pleasant and cooperative with staff. After going to sleep she awakens occasionally and calls out for help getting up. After staff talks to her and straightens out her bd she goes back to sleep. She has had no aggressive behaviors tonigt and took meds crushed in applesauce without difficulty.
[2021-08-30 05:49] VITALS: BP 109/62
[2021-08-30] MEDS: INSULIN LISPRO 300 UNITS/3 ML VIAL. SQ SCH ×3 (08:00→17:50)
[2021-08-30] MEDS: SERTRALINE 25 MG TABLET. PO SCH (08:42)
[2021-08-30] MEDS: LACTOBACILLUS RHAMNOSUS GG 1 CAPSULE. PO SCH ×2 (08:42→19:36)
[2021-08-30] MEDS: metFORMIN 500 MG TABLET PO SCH ×2 (08:43→19:36)
[2021-08-30] MEDS: SMZ/TMP 800/160MG TABLET. PO SCH ×2 (08:43→19:36)
[2021-08-30] MEDS: FUROSEMIDE 80 MG TABLET PO SCH (08:43)
--- NOTE | 2021-08-30 13:17 | PN ---
DATE: 08/30/2021 SUBJECTIVE: The patient was seen today, met with the staff, chart reviewed. Also, covering for Dr. Alicea. Staff reports increased anxiety, confusion, restlessness and constantly calling out for help. The patient is compliant with the medications. OBJECTIVE: VITAL SIGNS: Temperature 97.7, blood pressure 109/62, pulse 76, respirations 18, O2 sat 91%. GENERAL: Slept about 6 hours last night. Her appetite improved. MEDICATIONS: The patient's current medications include Zoloft 50 mg at night, mirtazapine 15 mg at night, trazodone 50 mg at night, melatonin 4.5 mg at night, Seroquel 25 mg at night. The patient is not experiencing any side effects to medications. LABORATORY DATA: The patient's lab reviewed. 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 PLAN: To continue with treatment. LENGTH OF STAY: Five days. ANGELITA DR: [place] TID: [id number]
--- NOTE | 2021-08-30 15:00 | NUR ---
Nursing note: Patient was in the dinning room for morning medications & assessment. She is compliant with medications taken crushed in pudding. She is A/O to self only. She is calm, confused, disorganized, hyperverbal, & playfully sarcastic. Patient propels self in w/c, requires standby transfer assist. She has been propelling self through the duncan. She is currently sitting in her w/c in the day room. Will continue to monitor.
[2021-08-30 15:40] VITALS: BP 118/68
[2021-08-30] MEDS: QUEtiapine 25 MG TABLET. PO SCH (19:34)
[2021-08-30] MEDS: traZODone 50 MG TABLET. PO SCH (19:35)
[2021-08-30] MEDS: MIRTAZAPINE 15 MG TABLET PO SCH (19:35)
[2021-08-30] MEDS: MELATONIN 3 MG TABLET PO SCH (19:35)
--- NOTE | 2021-08-30 21:10 | NUR ---
Patient is in her room on assumption of care, sitting in her wheelchair. She is disorganized, pleasantly confused. Yelling out intermittently, sometimes appears to be having a conversation with someone who isn't there. She was compliant with meds crushed in pudding, and cooperative with HS cares. She appears to be sleeping comfortably at present time. Will continue to monitor.
[2021-08-31 05:51] VITALS: BP 125/65
[2021-08-31] MEDS: INSULIN LISPRO 300 UNITS/3 ML VIAL. SQ SCH ×3 (08:00→17:29)
[2021-08-31 08:23] LABS: BASO # 0.1 x10^3/uL (0.0-0.2); BASO % 1 % (0-3); EOS # 0.5 x10^3/uL (0.0-0.7); EOS % 5 % (0-3); HEMATOCRIT 35.2 % (36.0-47.0); HEMOGLOBIN 11.2 g/dL (12.0-15.5); LYMPH % 32 % (24-48); MEAN CORPUSCULAR HEMOGLOBIN 27 pg (25-35); MEAN CORPUSCULAR HGB CONC 32 g/dL (31-37); MEAN CORPUSCULAR VOLUME 84 fL (79-100); MONO # 0.5 x10^3/uL (0.0-1.1); MONO % 5 % (0-9); NEUT # 5.3 x10^3uL (1.8-7.7); NEUT % 57 % (31-73); PLATELET COUNT 205 x10^3/uL (140-400); RED BLOOD COUNT 4.22 x10^6/uL (3.50-5.40); RED CELL DISTRIBUTION WIDTH 15.6 % (11.5-14.5); WHITE BLOOD COUNT 9.3 x10^3/uL (4.0-11.0)
[2021-08-31] MEDS: metFORMIN 500 MG TABLET PO SCH ×2 (08:37→19:40)
[2021-08-31] MEDS: SMZ/TMP 800/160MG TABLET. PO SCH ×2 (08:38→19:40)
[2021-08-31] MEDS: FUROSEMIDE 80 MG TABLET PO SCH (08:38)
[2021-08-31] MEDS: LACTOBACILLUS RHAMNOSUS GG 1 CAPSULE. PO SCH ×2 (08:38→19:41)
[2021-08-31] MEDS: SERTRALINE 25 MG TABLET. PO SCH (08:38)
[2021-08-31 08:54] LABS: ALBUMIN 2.9 g/dL (3.4-5.0); ALBUMIN/GLOBULIN RATIO 0.6 (1.0-1.7); CALCIUM 9.2 mg/dL (8.5-10.1); CREATININE 1.9 mg/dL (0.6-1.0); GFR 25.2; POTASSIUM 4.3 mmol/L (3.5-5.1); TOTAL BILIRUBIN 0.2 mg/dL (0.2-1.0)
[2021-08-31 15:41] VITALS: BP 114/71
--- NOTE | 2021-08-31 18:30 | NUR ---
Patient has been calm, disorganized, cooperative, and pleasantly confused throughout this shift. She has repeatedly called out at times, usually when she has unmet needs such as needing to use the toilet or wanting to get into or out of bed. Patient spent most of the morning sitting in her room talking to herself and was in bed for most of the afternoon. Will continue to monitor and report to oncoming shift.
[2021-08-31] MEDS: MIRTAZAPINE 15 MG TABLET PO SCH (19:40)
[2021-08-31] MEDS: traZODone 50 MG TABLET. PO SCH (19:41)
[2021-08-31] MEDS: QUEtiapine 25 MG TABLET. PO SCH (19:41)
[2021-08-31] MEDS: MELATONIN 3 MG TABLET PO SCH (19:42)
--- NOTE | 2021-08-31 21:22 | PN ---
DATE: 08/31/2021 SUBJECTIVE: The patient was seen today, met with the staff. Chart was reviewed and also covering for Dr. Alicea. Staff reports she is compliant with medications, usually takes after it is crushed. The patient apparently somewhat anxious, irritable and rice at times and tend to isolate herself. OBSERVATION: VITAL SIGNS: Temperature 97.9, blood pressure 125/65, pulse 75, respirations 20, O2 sat 96%. GENERAL: Slept about 5 hours last night. The patient's appetite is improved. The patient not having any other physical complaints. CURRENT MEDICATIONS: Zoloft 50 mg at night, mirtazapine 15 mg at night, trazodone 50 mg at night, melatonin 4.5 mg at night and Seroquel 25 mg at night. The patient denies of any side effects to medications. 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 PLAN: To continue treatment. LENGTH OF STAY: Five days. MADDI DR: [place] TID: [id number]
[2021-09-01 05:45] VITALS: BP 100/58
[2021-09-01] MEDS: INSULIN LISPRO 300 UNITS/3 ML VIAL. SQ SCH ×3 (07:52→17:00)
[2021-09-01] MEDS: LACTOBACILLUS RHAMNOSUS GG 1 CAPSULE. PO SCH ×2 (07:54→19:55)
[2021-09-01] MEDS: FUROSEMIDE 80 MG TABLET PO SCH (07:54)
[2021-09-01] MEDS: metFORMIN 500 MG TABLET PO SCH ×2 (07:54→19:55)
[2021-09-01] MEDS: SMZ/TMP 800/160MG TABLET. PO SCH (07:54)
[2021-09-01] MEDS: SERTRALINE 25 MG TABLET. PO SCH (07:55)
--- NOTE | 2021-09-01 15:34 | NUR ---
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 At one time yelling "help me, help me" Upon entering the room she was laying comfortable in bed with her eyes closed. When asked what she needed help with she responded "i just needed to know I was ok". She was not able to inform me where she was in that point and time. Morning FSBS was 157. 2 units of Insulin held due to her not usually eating breakfast well. During the pre-lunch time FSBS was 143 with no insulin indicated. Picture of the right inner thigh performed. Wound is healing without apparent complication. Mary Lou was appropriate and even smiling throughout parts of the day. When asked what was making today a beeter day for her she replied with "I don't know, you tell me". No physical discomfort or concerns noted.
[2021-09-01 15:56] VITALS: BP 123/66
--- NOTE | 2021-09-01 17:31 | NUR ---
At 1635 patient FSBS was 174. 2 Units of Humolg given at approx. 1740 after patient noted to be eating dinner
[2021-09-01] MEDS: QUEtiapine 25 MG TABLET. PO SCH (19:55)
[2021-09-01] MEDS: traZODone 50 MG TABLET. PO SCH (19:55)
[2021-09-01] MEDS: MIRTAZAPINE 15 MG TABLET PO SCH (19:55)
[2021-09-01] MEDS: MELATONIN 3 MG TABLET PO SCH (19:56)
--- NOTE | 2021-09-01 21:24 | PN ---
DATE: 09/01/2021 SUBJECTIVE: The patient was seen today, met with the staff. Chart was reviewed and also covering for Dr. Alicea. The patient's behavior is slightly improved, still withdrawn, at times exhibits inappropriate behavior and also problems with impulse control. Staff reports no major behavior problems. The patient is also very needy and needing assistance with ADLs. OBJECTIVE: VITAL SIGNS: Temperature 97.6, blood pressure 100/58, pulse 65, respirations 22 and O2 sat 97%. GENERAL: Slept about 7 hours last night. The patient's appetite improved. LABORATORY DATA: The patient's lab reviewed. CURRENT MEDICATIONS: Include Zoloft 50 mg at night, mirtazapine 15 mg at night, trazodone 50 mg at night, melatonin 4.5 mg at night and Seroquel 25 mg at night. The patient is not having any side effects to medications. 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 PLAN: To continue with the treatment. LENGTH OF STAY: [address]: [place] TID: [id number]
--- NOTE | 2021-09-01 21:53 | NUR ---
Patient is in her room on assumption of care, sitting in her wheelchair. She is disorganized, pleasantly confused. Yelling out intermittently, sometimes appears to be having a conversation with someone who isn't there. She was compliant with meds crushed in pudding, and cooperative with shower and HS cares. She appears to be sleeping comfortably at present time. Will continue to monitor.
[2021-09-02 05:28] VITALS: BP 135/57
[2021-09-02] MEDS: INSULIN LISPRO 300 UNITS/3 ML VIAL. SQ SCH ×3 (08:00→17:14)
[2021-09-02] MEDS: SERTRALINE 25 MG TABLET. PO SCH (08:18)
[2021-09-02] MEDS: FUROSEMIDE 80 MG TABLET PO SCH (08:19)
[2021-09-02] MEDS: LACTOBACILLUS RHAMNOSUS GG 1 CAPSULE. PO SCH ×2 (08:19→20:05)
[2021-09-02] MEDS: metFORMIN 500 MG TABLET PO SCH ×2 (08:19→20:05)
--- NOTE | 2021-09-02 12:18 | PN ---
DATE: 09/02/2021 SUBJECTIVE: The patient was seen today, met with the staff, chart reviewed and also covering for Dr. Alicea. Staff reports improved behavior. She is compliant, still disorganized with thinking and also having significant cognitive deficits and also some emotional instability. The patient has not presented with any major behavior problems. CURRENT MEDICATIONS: Include trazodone 50 mg at night, Remeron 15 mg at night and melatonin 4.5 mg at night. Zoloft 100 mg daily, Seroquel 25 mg at night and Zyprexa 2.5 mg every 2 hours p.r.n. OBSERVATION: VITAL SIGNS: Temperature 97.0, blood pressure 135/57, pulse 64, respirations 18, O2 sat 95%. GENERAL: Slept about 6 and 1/2 hours last night. The patient's appetite improved. The patient is not having any side effects to medications. 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 PLAN: To continue with the treatment. LENGTH OF STAY: Three to five days. She is awaiting for placement. ANGELITA DR: [place] TID: [id number]
--- NOTE | 2021-09-02 14:56 | TX PLAN ---
Interdisciplinary Tx Plan Admission Information Jul 16, 2021 at 20:03 Legal Status (on Admission): Voluntary DPOA/Guardian Name: Lucille Bergman Contact Other Contact Name: Jayna Sheikh Contact Verified Code Status: Full Code Allergies: Coded Allergies: No Known Drug Allergies (Unverified , 07/16/21) Diagnoses Primary Diagnosis: (1) Impulse control disorder, unspecified (2) Anxiety disorder, unspecified (3) Dementia, vascular, with depression (4) Dementia, vascular, with delusions (5) Dementia in Alzheimer's disease with depression (6) Dementia in Alzheimer's disease with delusions (7) Dementia of the Alzheimer's type with early onset with behavioral disturbance (8) Major neurocognitive disorder Reasons for Admission: Aggressive, Delusions, Agitated, Sig. Change Sleep, Hallucinations, Combative Problem in Patient's Words: Per pt lucille fishman/DPАнна MORALES who was raised mostly by pt, pt has had a noticable decline over the past year and particularlly over the past couple of months. Up until a year ago, pt was living in her independant living apartment and out of the lavelle, she moved to [place], [place] and bought a house that she paid winn for. She was then found to be living in very poor conditions without running water and no utilities and overall unable to care for herself. She had a few past hospitalizations but then release to herself and then would be found again living in unsafe conditions. At one point, pt drove herself to Анна's home, but refused to come in to stay, and would only stay in her car. Анна was finally successful at gaining DPOA during one of pt's hospitalizations and also in getting her license revoked. During the past year, family and staff during the different hospitalizations discovered pt was having hallucinations and delusions that seem to continue. Анна is concerned if pt is struggling with onset of dementia or if pt is truly experiencing psychosis and might clear in the future with medication management. Additional Admission Comments: Per intake record, pt refusing UA and cath, sexually inappropriate comments to staff, not sleeping for 30 hours, combative to staff, delusions,auditory hallucinations, verbally aggressive, screaming, cussing, disruptive. Problems Active Problems: Hallucinations, delusions, combative, agitation Inactive Problems: Pt seems to be sleeping better. Will continue to monitor for any changes. Pt Strengths/Limitations Ability for [place]: Poor Cognitive Functioning/Ability: Poor Communication Skills/Ability: Fair Financial Resources: Fair Insight/Judgement: Poor Intellectual Ability: Fair Physical Health: Poor Social Skills: Fair Stability in Family: Fair Stability in School/Work: Fair Verbal Skills: Fair Discharge Criteria Discharge Criteria: Adequate arrangements @DC, Verbal commit med comply, Improved behavior Other Discharge Comments: None at this time. Preliminary Discharge Plan Preliminary DC Plan: Current Living Arrange. Special Precautions Special Precautions: Agitation/Assault Fall Risk: High Other Precautions (specify): Pt has a history of falls. Initial D/C Plan Plan is for pt to return to her facility at [facility]. Identified Discharge Needs: None at this time. Currently Utilized Resources Currently Utilized Resources/P: PCP-Dr. Quang Fishman/[facility]-Анна [facility]; contact-CHANA Cruz Community Resources: None known at this time. Identified Problems/Hx/Goals Objectives/Short-Term Goals Short Term Goals: Control abnormal behavior, Dec. Aggression, Dec. Hallucination/Delus, Dec. Outbursts, Medication Stabilization, Monitor Med Effects, Prevent Deterioration, Promote Coping Skill Short Term Goals in Patient's: Assist with proper diagnosis of psychosis vs dementia. Interventions/Frequency Staff Interventions/Frequency&: Psychiatry to assess pt three times per week for medication management. Nursing to assess behaviors, monitor medications, and complete 15 minute checks daily. Social work to see pt at least two times weekly to aid in return to placement. Activities to encourage pt to participate in group activities daily. 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 Education: According to [employer], pt received a high school diploma and she had some technical college. Community Follow-up PCP Community Provider/Family Inpu: Pt lucille fishman/Анна LANG, provided pt history for the development of the treatment plan. Анна is available for further information should it be needed. Treatment Plan Explained Patient/Filter Changing Technician had this treatment plan explained to him/her as indicated by the signature below and has been given the opportunity to ask questions and make suggestions: Date: Patient/Filter Changing Technician Signature: Status Update Update Pt has been eating 75% of her meals and averaging 7 hours of sleep. She does nap a lot during the daytime as well. Pt seems to be somewhat better overall. She will call out, but it is mostly when she needs help in doing something. Pt remains confused and disorganized. She is unable recall her current location. Pt is compliant with medication, toileting, and showering. She is cooperative with cares if she is talked through about it. Pt attended two groups and was pleasantly confused throughout. She is able to use her wheelchair to get herself up and down the duncan to and from the dining area or dayroom. She does need assistance in finding or locating her room. Pt placement is being worked on with family involvement and family is scheduled with entry level software engineer on 09/04/21. Treatment plan was completed on 08/29/21 and entered on 09/02/21. LINDA BLACKWELL Sep 02, 2021 14:56
--- NOTE | 2021-09-02 15:00 | NUR ---
SW spent time with pt 1:1 discussing Kt trees and how she used to decorate. Pt stated that she used to like to decorate for Kt even though she didn't have any of her own children. Pt recognized the Kt tree in the atrium of the hospital and commented on how pretty it was. When asked by this SW what color of lights she decorated with, pt stated that she liked decorating with colored lights. She elaborated and said that she thinks older people like the colored lights better than just the white lights. Pt was pleasant to converse with. She still remains confused and is a poor historian.
[2021-09-02 15:37] VITALS: BP 109/62
--- NOTE | 2021-09-02 17:43 | NUR ---
Patient has been calm, disorganized, cooperative, and pleasantly confused throughout this shift. She was in the day room all morning and participated minimally in group. Patient was in bed most of the afternoon; she talks to herself repeatedly when moving in the hallway. Will continue to monitor and report to oncoming shift.
[2021-09-02] MEDS: QUEtiapine 25 MG TABLET. PO SCH (20:05)
[2021-09-02] MEDS: traZODone 50 MG TABLET. PO SCH (20:05)
[2021-09-02] MEDS: MELATONIN 3 MG TABLET PO SCH (20:05)
[2021-09-02] MEDS: MIRTAZAPINE 15 MG TABLET PO SCH (20:05)
--- NOTE | 2021-09-03 00:09 | NUR ---
Nursing Note Pt med compliant in pudding. Pt confused very [place], meds given moans and states "Not sure why we have to ludmila him, if his butt gets any closer I'm going to whip him!" Otherwise pt speaks in a word salad or 1 word answers. Becomes agitated when interacting says "what's this for?" pointing to her drink thickened liquids.
[2021-09-03 05:59] VITALS: BP 114/62
[2021-09-03] MEDS: INSULIN LISPRO 300 UNITS/3 ML VIAL. SQ SCH ×3 (08:00→17:16)
[2021-09-03] MEDS: LACTOBACILLUS RHAMNOSUS GG 1 CAPSULE. PO SCH ×2 (08:19→20:10)
[2021-09-03] MEDS: FUROSEMIDE 80 MG TABLET PO SCH (08:19)
[2021-09-03] MEDS: SERTRALINE 25 MG TABLET. PO SCH (08:20)
[2021-09-03] MEDS: metFORMIN 500 MG TABLET PO SCH ×2 (08:20→20:09)
--- NOTE | 2021-09-03 15:07 | NUR ---
CHANA spoke with pt niece, Анна, to provide update. Анна states that she still plans to meet with family business attorney tomorrow 09/04/21. Анна, further, reports that she has a few appointments later this week to look at facilities and she will keep this SW informed of where to send referrals.
[2021-09-03 16:10] VITALS: BP 106/62
[2021-09-03] MEDS: MIRTAZAPINE 15 MG TABLET PO SCH (20:10)
[2021-09-03] MEDS: QUEtiapine 25 MG TABLET. PO SCH (20:10)
[2021-09-03] MEDS: traZODone 50 MG TABLET. PO SCH (20:10)
[2021-09-03] MEDS: MELATONIN 3 MG TABLET PO SCH (20:12)
--- NOTE | 2021-09-04 03:10 | PN ---
DATE: 09/03/2021 SUBJECTIVE: The patient was seen today, met with the staff. Chart was reviewed and also covering for Dr. Alicea. Staff reports no major behavior problems. Still confused, but the behavior has improved, able to interact with the staff. The patient has significant cognitive deficits. The patient is having difficulty following directions, also needing assistance with ADLs. OBSERVATION: VITAL SIGNS: Temperature 98.0, blood pressure 114/62, pulse 64, respirations 20, O2 sat 91%. GENERAL: Slept about 7-1/2 hours last night. The patient's appetite improved. CURRENT MEDICATIONS: The patient's current medications include Zoloft 100 mg daily, Seroquel 25 mg at night, Remeron 15 mg at night, and trazodone 50 mg at night. She is also on Zyprexa 2.5 mg q. 2 hours p.r.n. LABORATORY DATA: The patient's lab reviewed. 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 PLAN: To continue with treatment. LENGTH OF STAY: Three to five days. NICHO DR: [place] TID: [id number]
[2021-09-04 06:03] VITALS: BP 114/52
[2021-09-04] MEDS: metFORMIN 500 MG TABLET PO SCH ×2 (08:29→20:25)
[2021-09-04] MEDS: LACTOBACILLUS RHAMNOSUS GG 1 CAPSULE. PO SCH ×2 (08:29→20:26)
[2021-09-04] MEDS: SERTRALINE 25 MG TABLET. PO SCH (08:29)
[2021-09-04] MEDS: INSULIN LISPRO 300 UNITS/3 ML VIAL. SQ SCH ×3 (08:30→17:14)
[2021-09-04] MEDS: ACETAMINOPHEN 325 MG TABLET PO PRN (12:40)
--- NOTE | 2021-09-04 13:01 | NUR ---
Patient was complaining of back pain; [employer] is down, prn medication provided using downtime procedures and then recorded in eMAR when [employer] came up. Will continue to monitor and report to oncoming shift.
[2021-09-04 15:36] VITALS: BP 105/62
[2021-09-04] MEDS: QUEtiapine 25 MG TABLET. PO SCH (20:25)
[2021-09-04] MEDS: MIRTAZAPINE 15 MG TABLET PO SCH (20:25)
[2021-09-04] MEDS: MELATONIN 3 MG TABLET PO SCH (20:25)
[2021-09-04] MEDS: traZODone 50 MG TABLET. PO SCH (20:26)
--- NOTE | 2021-09-04 23:05 | PN ---
DATE: 09/04/2021 SUBJECTIVE: The patient was seen today, met with the staff. Chart reviewed. I am covering for Dr. Alicea. The patient's behavior has improved, much calmer, still confused, withdrawn, but no major behavior problems. The patient tend to stay in bed most of the day and having difficulty with motivation. The patient's lab reviewed. CURRENT MEDICATIONS: Include trazodone 50 mg at night, Remeron 15 mg at night, melatonin 4.5 mg at night, Zoloft 100 mg daily, Seroquel 25 mg at night, Zyprexa 2.5 mg q. 2 hours p.r.n. The patient is not having any side effects to medications. ASSESSMENT: Psychotic disorder, unspecified; major neurocognitive disorder, most likely Alzheimer's with behavior problems. PLAN: Continue with the current treatment plan. Length of stay [address]: [place] TID: [id number]
--- NOTE | 2021-09-05 03:09 | NUR ---
Last evening pt was in her WC rolling around the unit talking to herself. She remains very confused and has been pleasant and cooperative with staff. Meds were given crushed in applesauce. Since going to bed she has been sleeping.
[2021-09-05 06:06] VITALS: BP 104/48
[2021-09-05] MEDS: INSULIN LISPRO 300 UNITS/3 ML VIAL. SQ SCH ×3 (07:32→16:44)
[2021-09-05] MEDS: SERTRALINE 25 MG TABLET. PO SCH (08:31)
[2021-09-05] MEDS: metFORMIN 500 MG TABLET PO SCH (08:31)
[2021-09-05] MEDS: LACTOBACILLUS RHAMNOSUS GG 1 CAPSULE. PO SCH ×2 (08:31→20:04)
--- NOTE | 2021-09-05 08:55 | NUR ---
Pt confused and disorganized this shift. Prior to breakfast she placed herself back into bed from w/c despite staff education to allow staff assist with transfers. She is appropriate so far, yelling out has been minimal. She is compliant with medications crushed and mixed into pudding. Absent of SI/HI behaviors, she denies pain when asked. Plan of care continues, will pass to next shift.
--- NOTE | 2021-09-05 11:59 | NUR ---
WEEKLY ACTIVITY THERAPY NOTE Date of Admission:07/16/21 Date of AT Assessment: 07/18 Precipitating behaviors that initiated intake and admission: Pt hallucinating, irritable calling out angry, confused, Delusions, combative, verbal aggression Goal aimed: increase socialization and engagement Initial Goal: Pt will participate in at least three activity therapy sessions per week Goal changed 08/08:Pt will participate in at least three activity therapy sessions before discharge Weekly progress towards goal: achieved (08/23-country/western bingo, 08/28-leisure and emotions, 08/29-Kt picture man and presents, 09/03- Flexibility and Name dropper) Group participation level: 1 min, 1 full Weekly highlights: with encouragement and prompting pt provided letters to help solve picture man afternoon, followed a couple exercises Thursday morning Behaviors observed: calm and pleasant Plan: repeat goal Beneficial adaptations: encouragement and direct prompting
--- NOTE | 2021-09-05 12:25 | NUR ---
Weekly Note: Pt continues to eat 75% of her meals and averages 7 hours of sleep. She continues to nap during the day time. Pt continues to show improvement, yet remains with poor cognition. She has been pleasant and calm and is easily engaged. Pt has been cooperative with ADL's and showers. It is important to talk with pt through her cares, letting her know what is going on, and therefore, she is pleasantly engaged. Pt is med compliant. Pt has attended a couple of groups and will participate to her level of ability. CHANA spoke with Анна LANG, as she has met with family energy attorney. Анна plans to send pt's living will. Анна reports that they are working on her finances, but she will need a Report of Examination and Evaluation to pursue conservatorship. CHANA agreeable to work on this for Анна. Анна will plan to seek out and visit various placement options for pt.
--- NOTE | 2021-09-05 12:25 | TX PLAN ---
Interdisciplinary Tx Plan Admission Information Jul 16, 2021 at 20:03 Legal Status (on Admission): Voluntary DPOA/Guardian Name: Lucille Bergman Contact Other Contact Name: Jayna Sheikh Contact Verified Code Status: Full Code Allergies: Coded Allergies: No Known Drug Allergies (Unverified , 07/16/21) Diagnoses Primary Diagnosis: (1) Impulse control disorder, unspecified (2) Anxiety disorder, unspecified (3) Dementia, vascular, with depression (4) Dementia, vascular, with delusions (5) Dementia in Alzheimer's disease with depression (6) Dementia in Alzheimer's disease with delusions (7) Dementia of the Alzheimer's type with early onset with behavioral disturbance (8) Major neurocognitive disorder Reasons for Admission: Aggressive, Delusions, Agitated, Sig. Change Sleep, Hallucinations, Combative Problem in Patient's Words: Per pt lucille fishman/DPАнна MORALES who was raised mostly by pt, pt has had a noticable decline over the past year and particularlly over the past couple of months. Up until a year ago, pt was living in her independant living apartment and out of the joaquin, she moved to [place], [place] and bought a house that she paid winn for. She was then found to be living in very poor conditions without running water and no utilities and overall unable to care for herself. She had a few past hospitalizations but then release to herself and then would be found again living in unsafe conditions. At one point, pt drove herself to Анна's home, but refused to come in to stay, and would only stay in her car. Анан was finally successful at gaining DPOA during one of pt's hospitalizations and also in getting her license revoked. During the past year, family and staff during the different hospitalizations discovered pt was having hallucinations and delusions that seem to continue. Анна is concerned if pt is struggling with onset of dementia or if pt is truly experiencing psychosis and might clear in the future with medication management. Additional Admission Comments: Per intake record, pt refusing UA and cath, sexually inappropriate comments to staff, not sleeping for 30 hours, combative to staff, delusions,auditory hallucinations, verbally aggressive, screaming, cussing, disruptive. Problems Active Problems: Hallucinations, delusions, combative, agitation Inactive Problems: Pt seems to be sleeping better. Will continue to monitor for any changes. Pt Strengths/Limitations Ability for [place]: Poor Cognitive Functioning/Ability: Poor Communication Skills/Ability: Fair Financial Resources: Fair Insight/Judgement: Poor Intellectual Ability: Fair Physical Health: Poor Social Skills: Fair Stability in Family: Fair Stability in School/Work: Fair Verbal Skills: Fair Discharge Criteria Discharge Criteria: Adequate arrangements @DC, Verbal commit med comply, Improved behavior Other Discharge Comments: None at this time. Preliminary Discharge Plan Preliminary DC Plan: Current Living Arrange. Special Precautions Special Precautions: Agitation/Assault Fall Risk: High Other Precautions (specify): Pt has a history of falls. Initial D/C Plan Plan is for pt to return to her facility at [facility]. Identified Discharge Needs: None at this time. Currently Utilized Resources Currently Utilized Resources/P: PCP-Dr. Quang Fishman/[facility]-Анна [facility]; contact-CHANA Cruz Community Resources: None known at this time. Identified Problems/Hx/Goals Objectives/Short-Term Goals Short Term Goals: Control abnormal behavior, Dec. Aggression, Dec. Hallucination/Delus, Dec. Outbursts, Medication Stabilization, Monitor Med Effects, Prevent Deterioration, Promote Coping Skill Short Term Goals in Patient's: Assist with proper diagnosis of psychosis vs dementia. Interventions/Frequency Staff Interventions/Frequency&: Psychiatry to assess pt three times per week for medication management. Nursing to assess behaviors, monitor medications, and complete 15 minute checks daily. Social work to see pt at least two times weekly to aid in return to placement. Activities to encourage pt to participate in group activities daily. 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 Education: According to [employer], pt received a high school diploma and she had some technical college. Community Follow-up PCP Community Provider/Family Inpu: Pt lucille fishman/Анна LANG, provided pt history for the development of the treatment plan. Анна is available for further information should it be needed. Treatment Plan Explained Patient/Integrative Medicine Physician had this treatment plan explained to him/her as indicated by the signature below and has been given the opportunity to ask questions and make suggestions: Date: Patient/Integrative Medicine Physician Signature: Status Update Update Pt continues to eat 75% of her meals and averages 7 hours of sleep. She continues to nap during the day time. Pt continues to show improvement, yet remains with poor cognition. She has been pleasant and calm and is easily engaged. Pt has been cooperative with ADL's and showers. It is important to talk with pt through her cares, letting her know what is going on, and therefore, she is pleasantly engaged. Pt is med compliant. Pt has attended a couple of groups and will participate to her level of ability. Pt family is working with civil rights attorney for conservatorship and ultimately placement. LINDA BLACKWELL Sep 05, 2021 12:24
[2021-09-05 15:07] VITALS: BP 132/82
--- NOTE | 2021-09-05 18:23 | NUR ---
Reviewed pt's 08/31/21 labs and medications with Dr Díaz, orders given to D/C Metformin d/t creatinine level of 1.9
[2021-09-05] MEDS: QUEtiapine 25 MG TABLET. PO SCH (20:03)
[2021-09-05] MEDS: traZODone 50 MG TABLET. PO SCH (20:04)
[2021-09-05] MEDS: MELATONIN 3 MG TABLET PO SCH (20:04)
[2021-09-05] MEDS: MIRTAZAPINE 15 MG TABLET PO SCH (20:04)
--- NOTE | 2021-09-05 21:23 | PN ---
DATE: 09/05/2021 SUBJECTIVE: The patient was seen today. Met with the staff. Chart reviewed and also participated in the treatment review conference. The patient's behavior has improved, still tends to isolate herself, confused, some emotional lability at times. Otherwise, no major behavior problems. The patient also needing assistance with ADLs and has been cooperative. OBSERVATION: Vital signs stable. The patient continues to have physical problems including nausea. CURRENT MEDICATIONS: The patient's current medications include trazodone 50 mg at night, Remeron 15 mg at night, melatonin 4.5 mg at night, Zoloft 100 mg daily and Seroquel 25 mg at night. She is also on Zyprexa 2.5 mg q. 2 hours p.r.n. The patient is not having any side effects to medications. ASSESSMENT: 1. Psychotic disorder, unspecified. 2. Major neurocognitive disorder, most likely Alzheimer's with behavior problems. PLAN: Continue with treatment. LENGTH OF STAY: [address]: [place] TID: [id number]
--- NOTE | 2021-09-06 03:13 | NUR ---
Pt has been pleasantly confused and cooperative tonight. Meds were given crushed in applesauce. Since going to bed she awakens every few hours and wants to get up to get dressed, exercise or perform other tasks. With distraction and redirection she eventually goes back to sleep. She has had no aggressive behaviors or inappropriate comments tonight.
[2021-09-06 06:00] VITALS: BP 113/56
[2021-09-06 06:56] LABS: BASO % 1 % (0-3); EOS # 0.5 x10^3/uL (0.0-0.7); EOS % 6 % (0-3); HEMATOCRIT 35.1 % (36.0-47.0); HEMOGLOBIN 11.4 g/dL (12.0-15.5); LYMPH % 36 % (24-48); MEAN CORPUSCULAR HEMOGLOBIN 27 pg (25-35); MEAN CORPUSCULAR HGB CONC 32 g/dL (31-37); MEAN CORPUSCULAR VOLUME 83 fL (79-100); MONO # 0.4 x10^3/uL (0.0-1.1); MONO % 5 % (0-9); NEUT # 4.4 x10^3uL (1.8-7.7); NEUT % 53 % (31-73); PLATELET COUNT 186 x10^3/uL (140-400); RED BLOOD COUNT 4.24 x10^6/uL (3.50-5.40); RED CELL DISTRIBUTION WIDTH 15.1 % (11.5-14.5); WHITE BLOOD COUNT 8.4 x10^3/uL (4.0-11.0)
[2021-09-06 07:18] LABS: ALBUMIN 2.8 g/dL (3.4-5.0); ALBUMIN/GLOBULIN RATIO 0.6 (1.0-1.7); CALCIUM 8.7 mg/dL (8.5-10.1); CREATININE 1.2 mg/dL (0.6-1.0); GFR 42.8; POTASSIUM 4.2 mmol/L (3.5-5.1); TOTAL BILIRUBIN 0.3 mg/dL (0.2-1.0); TOTAL PROTEIN 7.2 g/dL (6.4-8.2)
[2021-09-06] MEDS: INSULIN LISPRO 300 UNITS/3 ML VIAL. SQ SCH ×3 (08:00→17:24)
[2021-09-06] MEDS: SERTRALINE 25 MG TABLET. PO SCH (08:11)
[2021-09-06] MEDS: LACTOBACILLUS RHAMNOSUS GG 1 CAPSULE. PO SCH ×2 (08:11→20:15)
--- NOTE | 2021-09-06 08:55 | NUR ---
Pt disorganized and confused this morning. She ate less than 25% of breakfast, morning blood sugar 151, insulin (sliding scale) held. Labs reviewed from this morning, creatinine level has decreased from 1.9 (08/31/21) to 1.2 today. She is compliant with medications crushed and mixed into pudding. After breakfast she became delusional and disruptive and has been spending the past 10 minutes in her room alone crying out repeatedly "help me help me help me I don't know where I'm at oh my God oh my God." It is unknown if she is speaking to self or a possible hallucination. Redirection is successful only temporarily. Plan of care continues, will pass to next shift.
[2021-09-06 15:44] VITALS: BP 129/70
[2021-09-06] MEDS: traZODone 50 MG TABLET. PO SCH (20:15)
[2021-09-06] MEDS: QUEtiapine 25 MG TABLET. PO SCH (20:15)
[2021-09-06] MEDS: MIRTAZAPINE 15 MG TABLET PO SCH (20:15)
[2021-09-06] MEDS: MELATONIN 3 MG TABLET PO SCH (20:16)
--- NOTE | 2021-09-06 22:08 | NUR ---
Nursing Note The patient was located in her room laying in bed when approached for her assessment and medication pass. The patient was drowsy and was alert to name only. The patient was compliant with medication and took it crushed in pudding. The patient is currently sleeping in her room.
--- NOTE | 2021-09-06 23:04 | PN ---
DATE: 09/06/2021 SUBJECTIVE: The patient was seen today, met with the staff, chart reviewed. The patient continues to show improvement, but she is withdrawn, confused and also significant cognitive deficits. Overall, she is pleasant, not presenting with any major behavior problems. Staff reports that the patient has been talking to imaginary figures. Probably she is hallucinating, either auditorily or visually. OBSERVATION: VITAL SIGNS: Temperature 97.2, blood pressure 113/56, pulse 72, O2 saturation 91%. Slept about 6-1/2 hours last night. GENERAL: The patient's appetite improved. The patient is not having any physical complaints. CURRENT MEDICATIONS: The patient's current medications include trazodone 50 mg at night, Remeron 15 mg at night, melatonin 4.5 mg at night, Zoloft 100 mg daily and Seroquel 25 mg at night. She is also on Zyprexa 2.5 mg q. 2 hours p.r.n. The patient is not having any side effects to medications. ASSESSMENT: 1. Psychotic disorder, unspecified. 2. Major neurocognitive disorder, most likely Alzheimer's with behavior problems. PLAN: Continue with treatment. LENGTH OF STAY: [address]: [place] TID: [id number]
[2021-09-07 06:03] VITALS: BP 103/59
[2021-09-07] MEDS: LACTOBACILLUS RHAMNOSUS GG 1 CAPSULE. PO SCH ×2 (08:10→20:13)
[2021-09-07] MEDS: SERTRALINE 25 MG TABLET. PO SCH (08:11)
[2021-09-07] MEDS: INSULIN LISPRO 300 UNITS/3 ML VIAL. SQ SCH ×3 (08:15→17:17)
--- NOTE | 2021-09-07 14:20 | NUR ---
Nursing note: Patient was in the dinning room for morning medications & assessment. She is compliant with medications taken crushed in pudding. She is A/O to self only. She is calm, confused, disorganized, hyperverbal, & playfully sarcastic. Patient propels self in w/c, requires standby transfer assist. She has been in the day room on and off through the day. She is currently in bed resting with eyes closed. Will continue to monitor.
[2021-09-07 15:55] VITALS: BP 118/77
[2021-09-07] MEDS: MIRTAZAPINE 15 MG TABLET PO SCH (20:12)
[2021-09-07] MEDS: MELATONIN 3 MG TABLET PO SCH (20:12)
[2021-09-07] MEDS: QUEtiapine 25 MG TABLET. PO SCH (20:12)
[2021-09-07] MEDS: traZODone 50 MG TABLET. PO SCH (20:13)
--- NOTE | 2021-09-07 22:48 | NUR ---
Pt located in her room sleeping in bed. Pt slightly irritable with being woken up for medication administration. Pt compliant with crushed medications. Yelling out intermittently.
[2021-09-08 06:31] VITALS: BP 105/47
[2021-09-08] MEDS: INSULIN LISPRO 300 UNITS/3 ML VIAL. SQ SCH ×3 (08:00→17:29)
[2021-09-08] MEDS: SERTRALINE 25 MG TABLET. PO SCH (08:29)
[2021-09-08] MEDS: LACTOBACILLUS RHAMNOSUS GG 1 CAPSULE. PO SCH ×2 (08:29→19:54)
--- NOTE | 2021-09-08 13:55 | NUR ---
Nursing note: Patient was in the dinning room for morning medications & assessment. She is compliant with medications taken crushed in pudding. She is A/O to self only. She is calm, confused, disorganized, hyperverbal, & playfully sarcastic. Patient propels self in w/c, requires standby transfer assist. She has been in the day room on and off through the day & interacting with peers. She is currently in duncan sitting in her w/c. Will continue to monitor.
[2021-09-08 15:59] VITALS: BP 119/69
--- NOTE | 2021-09-08 18:39 | PN ---
DATE: 09/08/2021 SUBJECTIVE: The patient was seen today, met with the staff, chart reviewed, and also covering for Dr. Alicea. The patient's behavior remains the same, no major behavior problems. The patient denied of any problems with nausea, vomiting or diarrhea today. The patient able to interact with the staff and other residents, but preferred to stay in bed. OBSERVATION: VITAL SIGNS: Temperature 98.0, blood pressure 105/47, pulse 71, respirations 16, slept about 9 hours last night. GENERAL: The patient's appetite is fair. LABORATORY DATA: The patient's lab reviewed. CURRENT MEDICATIONS: The patient's current medications include trazodone 50 mg at night, Remeron 15 mg at night, melatonin 4.5 mg at night, Zoloft 100 mg daily, and Seroquel 25 mg at night. The patient is also on Zyprexa 2.5 mg q. 2 hours p.r.n. The patient is not exhibiting any side effects to medications. ASSESSMENT: 1. Major neurocognitive disorder, most likely Alzheimer's with behavior problems. 2. Psychotic disorder, unspecified. PLAN: To continue with treatment. LENGTH OF STAY: Five days. BOBBY/PRATIK DR: [place] TID: [id number]
--- NOTE | 2021-09-08 18:40 | PN ---
DATE: 09/07/2021 SUBJECTIVE: This is a late entry for the service date 09/07/2021 and was seen by telehealth, discussed with the staff and chart reviewed. Staff reports no change in her behavior problems. She is much more pleasant and able to interact with the staff and socialize, but preferred to spend more time in bed. She is still disorganized with thinking, had significant cognitive deficits. OBSERVATION: VITAL SIGNS: Temperature 99.2, blood pressure 103/59, pulse 62, respirations 16, O2 sat 94%. GENERAL: Slept about 8 hours last night. The patient's appetite is fair. The patient is not having any medical complaints today. LABORATORY DATA: The patient's lab reviewed. CURRENT MEDICATIONS: The patient's current medications include trazodone 50 mg at night, Remeron 15 mg at night, melatonin 4.5 mg at night, Zoloft 100 mg daily, Seroquel 25 mg at night. She is also on Zyprexa 2.5 mg q. 2 hours p.r.n. for agitation. The patient is not having any side effects to medications. ASSESSMENT: 1. Major neurocognitive disorder, most likely Alzheimer's with behavior problems. 2. Psychotic disorder, unspecified. PLAN: To continue with treatment. LENGTH OF STAY: Five days. MARYANNE DR: [place] TID: [id number]
[2021-09-08] MEDS: MIRTAZAPINE 15 MG TABLET PO SCH (19:54)
[2021-09-08] MEDS: traZODone 50 MG TABLET. PO SCH (19:54)
[2021-09-08] MEDS: MELATONIN 3 MG TABLET PO SCH (19:54)
[2021-09-08] MEDS: QUEtiapine 25 MG TABLET. PO SCH (19:54)
--- NOTE | 2021-09-08 23:51 | NUR ---
Pt located in her room this evening laying awake in bed. Pt yelling out intermittently. Compliant with crushed medications. Pt has been sleeping most of the evening, occasionally waking up and yelling out.
[2021-09-09 06:15] VITALS: BP 160/71
[2021-09-09] MEDS: LACTOBACILLUS RHAMNOSUS GG 1 CAPSULE. PO SCH ×2 (08:13→20:38)
[2021-09-09] MEDS: SERTRALINE 25 MG TABLET. PO SCH (08:13)
[2021-09-09] MEDS: INSULIN LISPRO 300 UNITS/3 ML VIAL. SQ SCH ×3 (08:16→17:23)
--- NOTE | 2021-09-09 15:59 | NUR ---
Nursing note: Patient was in the dinning room for morning medications & assessment. She is compliant with medications taken crushed in pudding. She is A/O to self only able to voice month of . She is calm, confused, disorganized, hyperverbal, & playfully sarcastic. Patient propels self in w/c, requires standby transfer assist. She has been in the day room on and off through the day & interacting with peers. She is currently in duncan sitting in her w/c. Will continue to monitor.
[2021-09-09 16:24] VITALS: BP 135/74
[2021-09-09] MEDS: MIRTAZAPINE 15 MG TABLET PO SCH (20:38)
[2021-09-09] MEDS: QUEtiapine 25 MG TABLET. PO SCH (20:38)
[2021-09-09] MEDS: MELATONIN 3 MG TABLET PO SCH (20:38)
[2021-09-09] MEDS: traZODone 50 MG TABLET. PO SCH (20:38)
--- NOTE | 2021-09-09 21:32 | PN ---
DATE: 09/09/2021 SUBJECTIVE: The patient was seen today. Met with the staff, chart reviewed. The patient continues to have problems. At times, she is talking to herself, also with conversation, but she does not admit to hearing voices or seeing things. Patient has been compliant with the medication. The patient also exhibiting significant mood swings, irritability, anger, mood. The patient also confused and disorganized with her thinking. OBSERVATION: VITAL SIGNS: Temperature 98.0, blood pressure 160/71, pulse 96, respirations 20, O2 sat 95%. Slept about 9 hours last night. GENERAL: The patient's appetite improved. The patient not having any physical complaints. LABORATORY DATA: The patient's lab reviewed. CURRENT MEDICATIONS: Include trazodone 50 mg at night, Remeron 15 mg at night, melatonin 4.5 mg at night, Zoloft 100 mg daily, Seroquel 25 mg at night. The patient is also on Zyprexa 2.5 mg q. 2 hours p.r.n. for agitation. The patient denies of any side effects to medications. ASSESSMENT: 1. Major neurocognitive disorder, most likely Alzheimer's with behavior problems. 2. Psychotic disorder, unspecified. PLAN: To continue with treatment. LENGTH OF STAY: Five days. BOBBY/MARGI DR: [place] TID: [id number]
--- NOTE | 2021-09-09 22:48 | NUR ---
Pt has been anxious and yelling the majority of the evening. Pt repeatedly calling out for Oskar and yelling "oh God." Pt very resistive to her shower, yelling throughout the shower. Compliant with crushed medications. Pt currently awake and yelling out in bed. Will continue to monitor.
[2021-09-10] MEDS: ACETAMINOPHEN 325 MG TABLET PO PRN (05:42)
[2021-09-10 06:11] VITALS: BP 126/68
[2021-09-10 06:52] LABS: BASO % 1 % (0-3); EOS # 0.1 x10^3/uL (0.0-0.7); EOS % 3 % (0-3); HEMATOCRIT 32.7 % (36.0-47.0); HEMOGLOBIN 10.7 g/dL (12.0-15.5); LYMPH # 1.5 x10^3/uL (1.0-4.8); LYMPH % 31 % (24-48); MEAN CORPUSCULAR HEMOGLOBIN 27 pg (25-35); MEAN CORPUSCULAR HGB CONC 33 g/dL (31-37); MEAN CORPUSCULAR VOLUME 82 fL (79-100); MONO # 0.6 x10^3/uL (0.0-1.1); MONO % 12 % (0-9); NEUT # 2.6 x10^3uL (1.8-7.7); NEUT % 53 % (31-73); PLATELET COUNT 166 x10^3/uL (140-400); RED CELL DISTRIBUTION WIDTH 15.4 % (11.5-14.5); WHITE BLOOD COUNT 4.9 x10^3/uL (4.0-11.0)
[2021-09-10 07:10] LABS: ALBUMIN 2.6 g/dL (3.4-5.0); ALBUMIN/GLOBULIN RATIO 0.6 (1.0-1.7); CALCIUM 8.5 mg/dL (8.5-10.1); GFR 52.8; POTASSIUM 4.2 mmol/L (3.5-5.1); TOTAL BILIRUBIN 0.2 mg/dL (0.2-1.0); TOTAL PROTEIN 7.1 g/dL (6.4-8.2)
[2021-09-10] MEDS: INSULIN LISPRO 300 UNITS/3 ML VIAL. SQ SCH ×3 (08:00→17:00)
[2021-09-10] MEDS: SERTRALINE 25 MG TABLET. PO SCH (08:44)
[2021-09-10] MEDS: LACTOBACILLUS RHAMNOSUS GG 1 CAPSULE. PO SCH ×2 (08:44→20:11)
--- NOTE | 2021-09-10 12:28 | NUR ---
CHANA faxed the Report of Examination and Evaluation to pt Анна LANG and followed up with a phone call. Анна stated that she will be sending it to the deputy commonwealth's attorney as they are working on emergency guardianship. Анна, also, stated that she plans to visit [facility] today as a possible placement option. CHANA then sent referral to [facility] and followed up with Tommie, tenant relations coordinator. Tommie explained that the DON was reluctant to taking pt back at their facility and that the DON questioned if pt could go to [facility]. CHANA explained to Tommie that pt could not go to [facility] as pt has a diagnosis of dementia, therefore she would not qualify for a level II placement. Tommie stated that he would call SW back after visiting again with their DON. Tommie later called back with the DON on the line as well who again asked if pt would qualify for a level II. This SW explained to the DON that pt would not qualify for a level II as she has dementia and further explained that pt was sent to us by their facility and that the agreement was for them to accept pt back at time of discharge. The DON stated that they did not have a bed available at this time and were unsure when they would have a bed available as they had her placed there for skilled care needs. The DON explained that she was concerned about taking pt back as it appeared, from the referral sent, that pt was still having some yelling out. CHANA explained that pt's yelling out is not a continual thing and that if pt yells out it is generally related to needing assistance with something. CHANA then spoke with pt Анна JASON, who stated she had visited the [facility] but at this time is unable to access pt funds. Анна stated her deputy commonwealth's attorney estimates it taking a couple of weeks to get the temporary guardianship in place. Анна will maintain contact with CHANA with any updates on her end.
[2021-09-10 13:38] LABS: BACTERIA,URINE 0 /HPF (0-FEW); BILIRUBIN,URINE NEG (NEG); CLARITY,URINE TURBID; COLOR,URINE YELLOW; GLUCOSE,URINE NEG (NEG); HYALINE CASTS, URINE FEW /HPF; NITRITE,URINE NEG (NEG); SQUAMOUS EPITHELIAL CELL,UR MOD /LPF; UROBILINOGEN,URINE 0.2 mg/dL (0.2 mg/dL)
--- NOTE | 2021-09-10 15:29 | NUR ---
Nursing note: Patient was in the dinning room for morning medications & assessment. She is compliant with medications taken crushed in pudding. She is A/O to self only able to voice month of . She is calm, confused, disorganized, hyperverbal, & playfully sarcastic. She will yell out when she has unmet needs such as needing to get up or use restroom. Patient propels self in w/c, requires standby transfer assist. She has been in the day room on and off through the day & interacting with peers. She is currently in bed resting with eyes closed. Will continue to monitor.
[2021-09-10 15:40] VITALS: BP 123/72
--- NOTE | 2021-09-10 17:51 | RAD ---
XR CHEST 1V History: Reason: cough, low grade temp / Spl. Instructions: / History: Comparison: August 16, 2021 Findings: Mild ill-defined mid and bibasilar opacities. No pleural effusion. No pneumothorax. Normal heart size . Prior granulomatous disease within the chest. Impression: 1. Mild mid and bibasilar opacities, may represent atelectasis or evolving infiltrates. If persisten t clinical concern, recommend follow-up. Electronically signed by: Андрей Calderon DO (09/10/2021 5:49 PM) [facility]
[2021-09-10] MEDS: traZODone 50 MG TABLET. PO SCH (20:11)
[2021-09-10] MEDS: QUEtiapine 25 MG TABLET. PO SCH (20:12)
[2021-09-10] MEDS: MIRTAZAPINE 15 MG TABLET PO SCH (20:12)
[2021-09-10] MEDS: MELATONIN 3 MG TABLET PO SCH (20:12)
--- NOTE | 2021-09-10 21:27 | NUR ---
Nursing Note Pt alert and awake in no distress takes po meds crushed in pudding. VSS at this point no fever noted. During assessment pt states "You look like a scarecrow", I asked her why she thought I looked like a scarecrow and she says "Because you look like one, thats why." Pt resting now. Denies complaints no yelling out.
--- NOTE | 2021-09-10 21:49 | PN ---
DATE: 09/10/2021 SUBJECTIVE: The patient was seen today, met with the staff, chart reviewed. The patient has not presented with any major behavior problems, but she tend to isolate herself in her room, talking to her and also holding an argument, being very loud at times. The patient is aware that she is talking to herself, but she could not explain why. The patient also gets irritable and rice. The patient is still confused, lacking insight to her problems. OBSERVATION: VITAL SIGNS: Temperature 99.6, blood pressure 126/68, pulse 74, respirations 20, O2 sat 96%. GENERAL: Slept about 7 hours last night. The patient's appetite fairly good. LABORATORY DATA: The patient's lab reviewed. The patient is not having any physical complaints. CURRENT MEDICATIONS: Trazodone 50 mg at night, Remeron 15 mg at night, melatonin 4.5 mg at night, Zoloft 100 mg daily, Seroquel 25 mg at night. She is also on Zyprexa 2.5 mg q. 2 hours p.r.n. for agitation. The patient is not showing any side effects to medications. No sedation. ASSESSMENT: 1. Major neurocognitive disorder, most likely Alzheimer's with behavior problems. 2. Psychotic disorder, unspecified. PLAN: To continue with treatment. LENGTH OF STAY: Three to five days. NICHO DR: [place] TID: [id number]
[2021-09-11 06:28] VITALS: BP 119/69
[2021-09-11] MEDS: INSULIN LISPRO 300 UNITS/3 ML VIAL. SQ SCH ×3 (08:00→17:00)
[2021-09-11] MEDS: LACTOBACILLUS RHAMNOSUS GG 1 CAPSULE. PO SCH ×2 (09:08→20:31)
[2021-09-11] MEDS: SERTRALINE 25 MG TABLET. PO SCH (09:08)
[2021-09-11 15:50] VITALS: BP 105/67
[2021-09-11] MEDS: traZODone 50 MG TABLET. PO SCH (20:30)
[2021-09-11] MEDS: MELATONIN 3 MG TABLET PO SCH (20:30)
[2021-09-11] MEDS: MIRTAZAPINE 15 MG TABLET PO SCH (20:31)
[2021-09-11] MEDS: QUEtiapine 25 MG TABLET. PO SCH (20:31)
--- NOTE | 2021-09-11 21:48 | NUR ---
Nursing Note Pt states, "Hi, you look like a scarecrow, that didn't brush it's hair today". I reminded her she stated the same thing yesterday and ask why she said those things. she responds "You look like one that's why and no one likes me anyway.". I told her she was well liked, and not to worry. Pt took HS meds crushed, yells intermittently to get up. Uses repetitive speech pattern. "Up me up get me Up me up".
--- NOTE | 2021-09-11 22:20 | PN ---
DATE: 09/11/2021 SUBJECTIVE: The patient was seen today, met with the staff. Chart reviewed. The patient's behavior fluctuates. The patient has been refusing to get out of the bed for breakfast and also for lunch and not eating well, wanting to stay in bed all the time. The patient is constantly yelling, talking to imaginary figures, very loud and also argumentative. Staff observed her to be delusional and also paranoid and confused. OBSERVATION: VITAL SIGNS: Temperature 98.3, blood pressure 119/69, pulse 62, respirations 18, O2 sat 96%. Slept about 9 hours last night. GENERAL: The patient's appetite normal. LABORATORY DATA: The patient's lab reviewed. CURRENT MEDICATIONS: The patient's current medications include trazodone 50 mg at night, Remeron 15 mg at night, melatonin 4.5 mg at night, Zoloft 100 mg daily, Seroquel 25 mg at night. She is also on Zyprexa 2.5 mg q. 2 hours p.r.n. for agitation. The patient is not having any side effects to medications. The patient continues to show emotional lability and having some mood swings. ASSESSMENT: 1. Major neurocognitive disorder, most likely Alzheimer's with behavior problems. 2. Psychotic disorder, unspecified. PLAN: To continue with the treatment, patient's Remeron was increased to 22.5 mg at night and the Zoloft was increased to 75 mg daily. LENGTH OF STAY: 3-[address]: [place] TID: [id number]
[2021-09-11] MEDS: traZODone 50 MG TABLET. PO PRN (23:00)
[2021-09-12 06:10] VITALS: BP 109/60
[2021-09-12] MEDS: INSULIN LISPRO 300 UNITS/3 ML VIAL. SQ SCH ×3 (08:00→17:00)
[2021-09-12] MEDS: LACTOBACILLUS RHAMNOSUS GG 1 CAPSULE. PO SCH ×2 (08:21→20:21)
--- NOTE | 2021-09-12 11:49 | NUR ---
WEEKLY ACTIVITY THERAPY NOTE Date of Admission:07/16/21 Date of AT Assessment: 07/18 Precipitating behaviors that initiated intake and admission: Pt hallucinating, irritable calling out angry, confused, Delusions, combative, verbal aggression Goal aimed: increase socialization and engagement Initial Goal: Pt will participate in at least three activity therapy sessions per week Goal changed 08/08:Pt will participate in at least three activity therapy sessions before discharge Goal repeated 09/05 Weekly progress towards goal: achieved, 11/07 Group participation level: 2 min, 1 mod Weekly highlights: participated in a couple pool noodle exercises , social and playful with peers Thursday Behaviors observed: social, pleasant Plan: change goal to:Pt will participate in at least five activity therapy sessions before discharge Beneficial adaptations: redirection, direct prompting
--- NOTE | 2021-09-12 13:17 | NUR ---
Nsg Note; Mary Lou has been to the dining room for meals and prefers to return to her room in between. We noted that when she does yell out, she needs help with cares and settles down after her needs are met. she was able to take one pill whole this am.
--- NOTE | 2021-09-12 13:40 | TX PLAN ---
Interdisciplinary Tx Plan Admission Information Jul 16, 2021 at 20:03 Legal Status (on Admission): Voluntary DPOA/Guardian Name: Lucille Bergman Contact Other Contact Name: Jayna Sheikh Contact Verified Code Status: Full Code Allergies: Coded Allergies: No Known Drug Allergies (Unverified , 07/16/21) Diagnoses Primary Diagnosis: (1) Impulse control disorder, unspecified (2) Anxiety disorder, unspecified (3) Dementia, vascular, with depression (4) Dementia, vascular, with delusions (5) Dementia in Alzheimer's disease with depression (6) Dementia in Alzheimer's disease with delusions (7) Dementia of the Alzheimer's type with early onset with behavioral disturbance (8) Major neurocognitive disorder Reasons for Admission: Aggressive, Delusions, Agitated, Sig. Change Sleep, Hallucinations, Combative Problem in Patient's Words: Per pt lucille fishman/DPАнна MORALES who was raised mostly by pt, pt has had a noticable decline over the past year and particularlly over the past couple of months. Up until a year ago, pt was living in her independant living apartment and out of the new city, she moved to [place], [place] and bought a house that she paid winn for. She was then found to be living in very poor conditions without running water and no utilities and overall unable to care for herself. She had a few past hospitalizations but then release to herself and then would be found again living in unsafe conditions. At one point, pt drove herself to Анна's home, but refused to come in to stay, and would only stay in her car. Анна was finally successful at gaining DPOA during one of pt's hospitalizations and also in getting her license revoked. During the past year, family and staff during the different hospitalizations discovered pt was having hallucinations and delusions that seem to continue. Анна is concerned if pt is struggling with onset of dementia or if pt is truly experiencing psychosis and might clear in the future with medication management. Additional Admission Comments: Per intake record, pt refusing UA and cath, sexually inappropriate comments to staff, not sleeping for 30 hours, combative to staff, delusions,auditory hallucinations, verbally aggressive, screaming, cussing, disruptive. Problems Active Problems: Hallucinations, delusions, combative, agitation Inactive Problems: Pt seems to be sleeping better. Will continue to monitor for any changes. Pt Strengths/Limitations Ability for [place]: Poor Cognitive Functioning/Ability: Poor Communication Skills/Ability: Fair Financial Resources: Fair Insight/Judgement: Poor Intellectual Ability: Fair Physical Health: Poor Social Skills: Fair Stability in Family: Fair Stability in School/Work: Fair Verbal Skills: Fair Discharge Criteria Discharge Criteria: Adequate arrangements @DC, Verbal commit med comply, Improved behavior Other Discharge Comments: None at this time. Preliminary Discharge Plan Preliminary DC Plan: Current Living Arrange. Special Precautions Special Precautions: Agitation/Assault Fall Risk: High Other Precautions (specify): Pt has a history of falls. Initial D/C Plan Plan is for pt to return to her facility at [facility]. Identified Discharge Needs: None at this time. Currently Utilized Resources Currently Utilized Resources/P: PCP-Dr. Quang Fishman/[facility]; contact-CHANA Cruz Community Resources: None known at this time. Identified Problems/Hx/Goals Objectives/Short-Term Goals Short Term Goals: Control abnormal behavior, Dec. Aggression, Dec. Hallucination/Delus, Dec. Outbursts, Medication Stabilization, Monitor Med Effects, Prevent Deterioration, Promote Coping Skill Short Term Goals in Patient's: Assist with proper diagnosis of psychosis vs dementia. Interventions/Frequency Staff Interventions/Frequency&: Psychiatry to assess pt three times per week for medication management. Nursing to assess behaviors, monitor medications, and complete 15 minute checks daily. Social work to see pt at least two times weekly to aid in return to placement. Activities to encourage pt to participate in group activities daily. 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 Education: According to [employer], pt received a high school diploma and she had some technical college. Community Follow-up PCP Community Provider/Family Inpu: Pt lucille fishman/Анна LANG, provided pt history for the development of the treatment plan. Анна is available for further information should it be needed. Treatment Plan Explained Patient/[facility] had this treatment plan explained to him/her as indicated by the signature below and has been given the opportunity to ask questions and make suggestions: Date: Patient/[facility] Signature: Status Update Update Pt has been eating 25% to 50 % of her meals and averaging 9 hours of sleep at night. Pt does nap frequently throughout the day. Pt continues to have poor memory and cognition. Pt will at times yell out, but it is generally when she needs assistance in doing something. Pt continues to be cooperative with cares and taking medications as long as staff talk her through what they are doing. She prefers staff move slow with her and this seems to easy her anxiety and irritability. It is important to talk with pt through her cares, letting her know what is going on and what to expect; she is, therefore, easier to guide and convince to do things that way. Remeron was recently increased and Zoloft was decreased. Medications will continue to be monitored. Pt attended three groups over the past week where she was pleasant, yet confused. She does better with prompts, guidance, and reframing to help her understand what is being talked about. She will then often be able to have some humor in her dialogue. Pt family is continuing to work with staff attorney for conservatorship and ultimately placement. LINDA BLACKWELL Sep 12, 2021 13:39
[2021-09-12 15:53] VITALS: BP 148/67
--- NOTE | 2021-09-12 16:45 | RAD ---
XR CHEST 1V History: Reason: CONGESTION / Spl. Instructions: / History: Comparison: September 10, 2021 Findings: Mild ill-defined mid and bibasilar opacities. Small left pleural effusion. No pneumothorax. Unchanged enlarged cardiac size. Prior granulous disease within the chest. Impression: 1. Increased small left pleural effusion. 2. Mild ill-defined mid and bibasilar opacities, unchanged. Electronically signed by: Андрей Calderon DO (09/12/2021 4:43 PM) [facility]
--- NOTE | 2021-09-12 17:20 | NUR ---
Nsg Note; Mary Lou was very resistant to going to the dining room for dinner, but settled down once she got there
[2021-09-12] MEDS: QUEtiapine 25 MG TABLET. PO SCH (20:21)
[2021-09-12] MEDS: MIRTAZAPINE 15 MG TABLET PO SCH (20:22)
[2021-09-12] MEDS: MELATONIN 3 MG TABLET PO SCH (20:22)
[2021-09-12] MEDS: traZODone 50 MG TABLET. PO SCH (20:22)
[2021-09-12] MEDS: SERTRALINE 25 MG TABLET. PO SCH (20:23)
--- NOTE | 2021-09-12 20:47 | PN ---
DATE: 09/12/2021 SUBJECTIVE: The patient is seen today, met with the staff. Chart was reviewed and also participated in the treatment review meeting. The patient continues to have physical complaints, wheezing and coughing at times, also difficulty swallowing. The patient has history of aspiration in the past. The patient is compliant with the medications. She continues to show mood swings, irritability, angry outbursts and talk to herself loud, apparently holding an argument, but staff has not observed any visual or auditory hallucinations. She is also having emotional lability. She is confused most of the time: OBSERVATION: VITAL SIGNS: Temperature 98.4, blood pressure 109/60, pulse 60, respirations 16, O2 sat 94%. GENERAL: Slept about 5-1/2 hours last night. The patient's appetite is fair. CURRENT MEDICATIONS: The patient's current medications include trazodone 50 mg at night, Remeron 15 mg at night, melatonin 4.5 mg at night, Zoloft 100 mg daily, Seroquel 25 mg at night. She is also on Zyprexa 2.5 mg q. 2 hours p.r.n. The patient denies of any side effects to medications. ASSESSMENT: 1. Major neurocognitive disorder, most likely Alzheimer's with behavior problems: 1. Psychotic disorder, unspecified. PLAN: To continue with treatment. The patient currently on Remeron 22.5 mg at night that was increased yesterday and also, she is taking Zoloft 75 mg daily. LENGTH OF STAY: Three to five days. ALLIE DR: [place] TID: [id number]
--- NOTE | 2021-09-12 23:05 | NUR ---
Pt located in her room this evening laying in bed awake. Yelling out intermittently to get up. Compliant with crushed medications. Pt currently awake in bed.
[2021-09-13 06:26] VITALS: BP 120/50
[2021-09-13] MEDS: INSULIN LISPRO 300 UNITS/3 ML VIAL. SQ SCH ×3 (08:00→17:00)
[2021-09-13] MEDS: LACTOBACILLUS RHAMNOSUS GG 1 CAPSULE. PO SCH ×2 (08:42→19:50)
[2021-09-13 15:57] VITALS: BP 113/71
[2021-09-13] MEDS: MELATONIN 3 MG TABLET PO SCH (19:47)
[2021-09-13] MEDS: SERTRALINE 25 MG TABLET. PO SCH (19:48)
[2021-09-13] MEDS: MIRTAZAPINE 15 MG TABLET PO SCH (19:48)
[2021-09-13] MEDS: QUEtiapine 25 MG TABLET. PO SCH (19:49)
[2021-09-13] MEDS: traZODone 50 MG TABLET. PO SCH (19:49)
--- NOTE | 2021-09-13 22:05 | PN ---
DATE: 09/13/2021 SUBJECTIVE: The patient was seen today, met with the staff. Chart reviewed. The patient is staying in bed most of the time, withdrawn, isolative. Staff also reports she started yelling out intermittently, unpredictable behaviors and some emotional lability and feeling angry and talking to herself loud. OBSERVATION: VITAL SIGNS: Temperature 96.8, blood pressure 120/50, pulse 58, respirations 20, O2 sat 97%. GENERAL: Slept about 7 hours last night. The patient's appetite is fair. The patient is still having problems with wheezing and cough. CURRENT MEDICATIONS: Trazodone 50 mg at night, Remeron 15 mg at night, melatonin 4.5 mg at night, Zoloft 100 mg daily, Seroquel 25 mg at night and p.r.n. Zyprexa 2.5 mg q. 2 hours p.r.n. ASSESSMENT: Major neurocognitive disorder, most likely Alzheimer's with behavior problems. PLAN: To continue with treatment. LENGTH OF STAY: Three to five days. NICHO DR: [place] TID: [id number]
--- NOTE | 2021-09-13 23:00 | NUR ---
Patient is in her room on assumption of care, awake in her bed. She is disorganized, pleasantly confused. Very little yelling out this evening. She was compliant with meds crushed in pudding, and cooperative with HS cares. She appears to be sleeping comfortably at present time. Will continue to monitor.
[2021-09-14 06:25] VITALS: BP 132/69
[2021-09-14] MEDS: INSULIN LISPRO 300 UNITS/3 ML VIAL. SQ SCH ×3 (07:22→16:54)
--- NOTE | 2021-09-14 08:22 | NUR ---
Pt in bed sleeping. Breathing even, equal and unlabored. No signs of pain or distress. Shift assessment and medication administration pending. Will continue to monitor.
[2021-09-14] MEDS: LACTOBACILLUS RHAMNOSUS GG 1 CAPSULE. PO SCH ×2 (09:00→20:08)
--- NOTE | 2021-09-14 09:49 | NUR ---
Pt has slept past breakfast and has been laying in bed quietly. She has not been yelling out in high anxiety in a repeated fashion as what has been previously observed. Lungs diminished to auscultation, no crackles or wheezes noted. She has removed her O2 NC, O2 sats 94% RA, O2 NC reapplied at 2 LPM. She denies pain or discomfort, only that she wants to get up to use the toilet. She insists she is able to accomplish this task on her own and does not need staff assistance, however she is receptive and cooperative when staff do assist. She is absent of disruptive behaviors on the unit. Absent of SI/HI behaviors, does not appear to be interacting with possible VH/AH at this time. Plan of care continues, will pass to next shift.
[2021-09-14] MEDS ORDERED: DEXT50DI3 IV (16:08)
[2021-09-14] MEDS ORDERED: LACT1CAP14 PO (16:09)
[2021-09-14] MEDS ORDERED: MAG-124 PO (16:10)
[2021-09-14] MEDS ORDERED: MAGN24003 PO (16:11)
[2021-09-14] MEDS ORDERED: MELA5CAP PO (16:12)
[2021-09-14] MEDS ORDERED: MIRT-35 PO (16:13)
[2021-09-14] MEDS ORDERED: OLAN5TAB67 PO (16:13)
[2021-09-14] MEDS ORDERED: SERT100T PO (16:14)
[2021-09-14 16:18] VITALS: BP 130/74
[2021-09-14] MEDS ORDERED: TRAZ-120 PO (16:19)
[2021-09-14] MEDS ORDERED: INSU100V SQ (16:22)
--- NOTE | 2021-09-14 16:34 | NUR ---
Reviewed COVID+ test results. Dr Crouch and Pharmacy Clinical Coordinator notified. Preparing for transfer to [facility]. Dr Alicea notified as well. Message left with DPOA asking for callback.
--- NOTE | 2021-09-14 17:16 | NUR ---
2nd attempt to contact DPOA made. Another message left requesting a callback to [facility]. Boat Outboard Engine Mechanic notified, she recommends to still proceed with transfer to [facility].
--- NOTE | 2021-09-14 17:54 | NUR ---
3rd attempt made to contact DPOA. Call went to voicemail. Message left stating pt is being transferred to [facility] and contact number for the department. Message further requests a callback.
[2021-09-14] MEDS: MELATONIN 3 MG TABLET PO SCH (20:06)
[2021-09-14] MEDS: MIRTAZAPINE 15 MG TABLET PO SCH (20:07)
[2021-09-14] MEDS: SERTRALINE 25 MG TABLET. PO SCH (20:07)
[2021-09-14] MEDS: QUEtiapine 25 MG TABLET. PO SCH (20:07)
[2021-09-14] MEDS: traZODone 50 MG TABLET. PO SCH (20:08)
--- NOTE | 2021-09-14 20:30 | NUR ---
DPOA returned phone call. Informed of COVID + status and plans to move patient to the medical floor. DPOA in agreement and appreciative of update. [facility] extension provided.
--- NOTE | 2021-09-14 21:56 | NUR ---
Transition Record was faxed to follow-up provider with the following elements: Reason for admission, procedures, tests, principal diagnosis, pending studies, patient instructions, 30/03 contact information for unit, phone number to obtain pending test results, plan for follow-up care, physician follow-up, advanced directive information, and medication list with dose, duration and instructions. This information was included in the following documents: History and physical, lab results, study results, progress notes, social work planning form, DC instruction form, patient visit summary, and medication reconciliation form. Date & time record faxed: 09/14/21 at 2023 Record faxed to: [facility]-Ext. [id number] Record discussed with/ report given to: Meli RN ([address] [place] [address]) from Miriam TANG ( [facility])
--- NOTE | 2021-09-16 21:03 | DS ---
DATE OF DISCHARGE: 09/14/2021 DISCHARGE SUMMARY/PSYCHIATRIC PROGRESS NOTE This is a late entry, date of service 09/14/2021, covers the elements not covered in my initial on that date. REASON FOR ADMISSION: Please refer to the admission history for details. Briefly, the patient is an 86-year-old female referred to us from [facility] on account of increasingly combative behavior . She is having auditory hallucinations, being aggressive, screaming, cursing, disruptive. She is having marked insomnia, sexually inappropriate comments were being made to other residents. She is confused, somewhat manic. She had failed outpatient psychiatric interventions. Behaviors were unmanageable at the facility resulting in this referral. SIGNIFICANT FINDINGS AND CLINICAL COURSE: Following admission, the patient was seen individually by myself from a psychiatric standpoint, medical followup, Dr. Díaz/Dr. Crouch. The patient was extremely grandiose, hyperverbal, yelling, screaming at admission with active hallucinations, marked confusion. Adjustments were made in her psychotropics and she finally seemed to respond to a combination of Remeron 22.5 mg at bedtime, trazodone 50 mg at bedtime, may repeat x1 for insomnia, melatonin 4.5 mg at bedtime, Zoloft, increasing to 75 mg a day, Seroquel 25 mg at bedtime, Zyprexa p.r.n. Overall, the patient is showing improvement, consideration was being given to having her return to the nursing facility or an alternate facility, but at this stage, she developed COVID positive status on 09/14 and was transferred to the medical surgical floor [facility] for further stabilization. CONDITION ON DISCHARGE: Improved. REVIEW OF SYSTEMS: Prior to discharge, ambulation impaired, in wheelchair. No CV, , pulmonary, eye system symptoms on review. Reliability poor. MENTAL STATUS EXAMINATION: Oriented to herself. Insight, judgment, recent and remote memory, attention, concentration, fund of knowledge poor consistent with her diagnoses. FINAL DIAGNOSES: Major depressive disorder with psychotic features, rule out bipolar disorder, mixed with psychotic features, mild cognitive impairment versus major neurocognitive disorder, early Alzheimer, vascular with delusion, depression, behavioral disturbance, anxiety disorder, unspecified; impulse control disorder, unspecified. COVID positive status. Rest unchanged from admission. DISCHARGE MEDICATIONS: Please refer to the MRAD. PSYCHIATRIC AND MEDICAL FOLLOWUP: On the Medical surgical floor. Time for discharge day management greater than [address]: [place] TID: [id number]
--- NOTE | 2021-09-17 07:47 | PDOC ---
Exam Note: [place] Note: Late entry for 09/14/2021. Please also refer to the separate dictated note~for this date of service dictated separately.~Patient seen individually. Discussed the patient with Nursing staff reviewed the chart.~Reviewed interim history and current functioning. Reviewed vital signs,~Labs/ Radiology~and current medic ations noted below. Continue current treatment with the changes noted in the dictated addendum note Assessment: Vital Signs/I&O: Vital Signs Date Time Temp Pulse Resp B/P (MAP) Pulse Ox O2 Delivery O2 Flow Rate FiO2 09/14/21 16:18 97.8 90 18 130/74 (92) 96 Room Air 09/14/21 06:25 2.0 Current Medications: Meds: Current Medications Medications (Trade) Dose Ordered Sig/Richard Route PRN Reason Start Time Stop Time Status Last Admin Dose Admin Influenza Virus Vaccine Quadrival (Flulaval Quad Syringe) 0.5 ml ONCE ONCE VAX IM 07/17/21 09:00 07/17/21 09:01 DC 07/17/21 10:00 Acetaminophen (Tylenol) 650 mg PRN Q6HRS PRN PO PAIN/FEVER 07/16/21 22:45 UNV Metformin HCl (Glucophage) 1,000 mg BIDWMEALS PO 07/17/21 08:00 08/23/21 15:45 DC 08/23/21 08:39 Nystatin (Mycostatin) 1 sulma PRN BID PRN TP RASH 07/16/21 22:45 09/14/21 22:17 DC Quetiapine Fumarate (SEROquel) 50 mg BID PO 07/17/21 09:00 07/18/21 10:56 DC 07/18/21 08:21 Trazodone HCl (Desyrel) 50 mg QHS PO 07/17/21 21:00 09/14/21 22:17 DC 09/14/21 20:08 Non-Formulary Medication (Albuterol Sulfate (Albuterol Sulfate Neb Soln)) 1 vial QID PRN NEB SHORTNESS OF AIR 07/16/21 22:45 UNV Non-Formulary Medication (Insulin Aspart (Insulin Aspart Flexpen)) 100 unit PRN AFTMEALHC PRN SQ ELEVATED BLOOD SUGAR 07/16/21 22:45 UNV Acetaminophen (Tylenol) 650 mg PRN Q6HRS PRN PO MILD PAIN / TEMP > 100.3'F 07/16/21 22:45 09/14/21 22:17 DC 09/10/21 05:42 Multi-Ingredient Ointment (Analgesic [place]) 1 sulma PRN QID PRN TP MUSCLE PAIN 07/16/21 22:45 09/14/21 22:17 DC Al Hydroxide/Mg Hydroxide (Mylanta Plus Xs) 15 ml PRN AFTMEALHC PRN PO DYSPEPSIA 07/16/21 22:45 09/14/21 22:17 DC Magnesium Hydroxide (Milk Of Magnesia) 2,400 mg PRN QHS PRN PO CONSTIPATION 07/16/21 22:45 09/14/21 22:17 DC Albuterol Sulfate (Ventolin) 2.5 mg PRN Q6HRS PRN NEB SHORTNESS OF BREATH 07/16/21 23:00 07/17/21 06:25 DC Insulin Human Lispro (HumaLOG) 0-5 UNITS TIDWMEALS SQ 07/17/21 08:00 09/14/21 22:17 DC 09/12/21 12:22 Dextrose (Dextrose 50%-Water Syringe) 12.5 gm PRN Q15MIN PRN IV SEE COMMENTS 07/17/21 00:15 09/14/21 22:17 DC Albuterol Sulfate (Ventolin Hfa Inhaler) 1 puff PRN Q6HRS PRN INH SHORTNESS OF BREATH 07/17/21 06:30 09/14/21 22:17 DC Risperidone (RisperDAL) 0.5 mg HS PO 07/18/21 21:00 07/21/21 19:40 DC 07/20/21 20:18 Olanzapine (ZyPREXA ZYDIS) 2.5 mg PRN Q2HR PRN PO PSYCHOSIS 07/18/21 18:15 09/14/21 22:17 DC 09/14/21 21:53 Divalproex Sodium (Depakote Sprinkles) 125 mg BID@0900,1700 PO 07/21/21 09:00 07/25/21 01:54 DC 07/24/21 17:08 Risperidone (RisperDAL) 1 mg HS PO 07/21/21 21:00 07/29/21 18:23 DC 07/28/21 20:11 Trazodone HCl (Desyrel) 50 mg PRN QHS PRN PO INSOMNIA 07/21/21 19:45 09/14/21 22:17 DC 09/11/21 23:00 Mirtazapine (Remeron) 7.5 mg QHS PO 07/21/21 21:00 07/22/21 19:52 DC 07/21/21 20:04 Mirtazapine (Remeron) 15 mg QHS PO 07/22/21 21:00 09/11/21 16:18 DC 09/10/21 20:12 Melatonin (Melatonin) 3 mg QHS PO 07/22/21 21:00 07/23/21 20:00 DC 07/22/21 20:21 Melatonin (Melatonin) 4.5 mg QHS PO 07/23/21 21:00 09/14/21 22:17 DC 09/14/21 20:06 Divalproex Sodium (Depakote Sprinkles) 250 mg BID@0900,1700 PO 07/25/21 09:00 07/28/21 19:57 DC 07/28/21 17:07 Nystatin (Nystop) 1 sulma BID TP 07/27/21 21:00 08/28/21 12:27 DC 08/28/21 09:30 Divalproex Sodium (Depakote Sprinkles) 375 mg BID@0900,1700 PO 07/29/21 09:00 08/17/21 07:16 DC 08/16/21 08:41 Risperidone (RisperDAL) 0.25 mg QHS PO 07/29/21 21:00 08/09/21 19:39 DC 08/08/21 20:35 Risperidone (RisperDAL) 1 mg QHS PO 07/29/21 21:00 08/17/21 07:16 DC 08/15/21 20:22 Sertraline HCl (Zoloft) 25 mg DAILY PO 08/03/21 09:00 08/05/21 12:00 DC 08/05/21 08:32 Sertraline HCl (Zoloft) 50 mg DAILY PO 08/06/21 09:00 08/10/21 20:02 DC 08/10/21 08:48 Ascorbic Acid (Vitamin C) 500 mg BIDWMEALS PO 08/06/21 17:00 08/27/21 18:23 DC 08/27/21 17:17 Ferrous Sulfate (Feosol) 325 mg BIDWMEALS PO 08/06/21 17:00 08/23/21 15:45 DC 08/23/21 08:40 Risperidone (RisperDAL) 0.5 mg QHS PO 08/09/21 21:00 08/15/21 11:24 DC 08/14/21 20:07 Sertraline HCl (Zoloft) 75 mg DAILY PO 08/11/21 09:00 08/13/21 09:01 DC 08/13/21 08:15 Buspirone HCl (Buspar) 5 mg BID@0900,1700 PO 08/11/21 09:00 08/14/21 17:40 DC 08/14/21 17:22 Sertraline HCl (Zoloft) 100 mg DAILY PO 08/14/21 09:00 09/11/21 16:18 DC 09/11/21 09:08 Buspirone HCl (Buspar) 10 mg BID@0900,1700 PO 08/14/21 17:45 08/14/21 17:56 DC Buspirone HCl (Buspar) 10 mg BID@0900,1700 PO 08/15/21 09:00 08/17/21 07:16 DC 08/16/21 08:41 Risperidone (RisperDAL) 0.5 mg 1500 PO 08/15/21 15:00 08/17/21 07:16 DC 08/15/21 15:37 Risperidone (RisperDAL) 0.25 mg DAILY PO 08/15/21 11:30 08/17/21 07:16 DC 08/16/21 08:41 Furosemide (Lasix) 80 mg 1X PO 08/17/21 09:45 08/20/21 13:54 DC 08/17/21 10:32 Furosemide (Lasix) 80 mg 1X PO 08/18/21 11:30 08/20/21 13:54 DC Magnesium Citrate (Citroma) 296 ml 1X ONCE PO 08/18/21 11:30 08/18/21 11:31 DC 08/18/21 12:17 Furosemide (Lasix) 80 mg DAILY PO 08/20/21 14:00 09/03/21 12:44 DC 09/03/21 08:19 Quetiapine Fumarate (SEROquel) 25 mg QHS PO 08/22/21 21:00 09/14/21 22:18 DC 09/14/21 20:07 Metformin HCl (Glucophage Xr) 500 mg BID PO 08/23/21 21:00 08/28/21 12:27 DC 08/28/21 08:31 Trimethoprim/ Sulfamethoxazole (Bactrim Ds) 1 tab BID PO 08/25/21 21:00 09/01/21 20:59 DC 09/01/21 07:54 Lactobacillus Rhamnosus (Culturelle) 1 cap BID PO 08/25/21 21:00 09/14/21 22:18 DC 09/14/21 20:08 Nystatin (Nystop) 1 sulma PRN BID PRN TP REDNESS 08/28/21 12:30 09/14/21 22:18 DC Metformin HCl (Glucophage) 500 mg BID PO 08/28/21 21:00 09/05/21 18:23 DC 09/05/21 08:31 Mirtazapine (Remeron) 22.5 mg QHS PO 09/11/21 21:00 09/14/21 22:18 DC 09/14/21 20:07 Sertraline HCl (Zoloft) 75 mg HS PO 09/12/21 21:00 09/14/21 22:18 DC 09/14/21 20:07 I have reviewed the current psychotropics carefully including drug interactions. Risk benefit ratio favors no change other than as noted in my dictated progress note. Diagnosis: Problems: (1) Impulse control disorder, unspecified (2) Anxiety disorder, unspecified (3) Dementia, vascular, with depression (4) Dementia, vascular, with delusions (5) Dementia in Alzheimer's disease with depression (6) Dementia in Alzheimer's disease with delusions (7) Dementia of the Alzheimer's type with early onset with behavioral disturbance (8) Major neurocognitive disorder SOO BAIRES MD Sep 17, 2021 07:47
== END 2021-09-14 22:17 | disposition short-term general hospital (02) | DRG 885 ==
LOC: GEROPSY 20:03
PROVIDERS: ADMIT Psychiatry & Neurology Psychiatry; ATTEND Psychiatry & Neurology Psychiatry
DX: F32.3 Major depressive disorder, single episode, severe with psychotic features (principal); F01.50 Vascular dementia, unspecified severity, without behavioral disturbance, psychotic disturbance, mood disturbance, and anxiety; U07.1 COVID-19; F02.81 Dementia in other diseases classified elsewhere, unspecified severity, with behavioral disturbance; N39.0 Urinary tract infection, site not specified; G30.9 Alzheimer's disease, unspecified; E11.9 Type 2 diabetes mellitus without complications; E78.5 Hyperlipidemia, unspecified; F41.1 Generalized anxiety disorder; F63.9 Impulse disorder, unspecified; G47.00 Insomnia, unspecified; J45.909 Unspecified asthma, uncomplicated; K59.00 Constipation, unspecified; M19.90 Unspecified osteoarthritis, unspecified site; R13.10 Dysphagia, unspecified; R29.6 Repeated falls; Z79.899 Other long term (current) drug therapy; Z87.891 Personal history of nicotine dependence; E66.9 Obesity, unspecified; Z68.34 Body mass index [BMI] 34.0-34.9, adult
CPT/HCPCS: 36415; 70450; 71045; 73521; 80048; 80053; 80061; 80164; 81001; 82140; 82306; 82550; 82607; 82947; 83036; 83540; 83550; 83735; 83880; 84436; 84443; 84480; 85025; 85379; 85610; 86592; 87077; 87086; 87186; 87493; 90471; 90686; 93005; J1815; U0003; 92610; 97530

== ENCOUNTER 2021-09-27 12:55 | Inpatient (IN) | payer MEDICARE, BC ==
[~2021-09-27] VITALS: Ht 152.4 cm; Wt 88.2 kg
[~2021-09-27 12:55] MED LIST: ACET325T9 PO; ALBU0.63 NEB; DEXT50DI3 IV; GEODON IM; INSU100I53 SQ; INSU100V SQ; LACT1CAP14 PO; MAG-124 PO; MAGN24003 PO; MELA1TAB44 PO; MELA5CAP PO; METF500T16 PO; MIRT-35 PO; NYST15CR TP; OLAN5TAB67 PO; QUET25TA5 PO; QUET50TA5 PO; SERT100T PO; TRAZ-120 PO
[2021-09-27 13:47] VITALS: BP 133/79
[2021-09-27 14:53] LABS: BASO % 0 % (0-3); EOS # 0.1 x10^3/uL (0.0-0.7); EOS % 2 % (0-3); HEMATOCRIT 35.6 % (36.0-47.0); HEMOGLOBIN 11.4 g/dL (12.0-15.5); LYMPH # 2.5 x10^3/uL (1.0-4.8); LYMPH % 26 % (24-48); MEAN CORPUSCULAR HEMOGLOBIN 26 pg (25-35); MEAN CORPUSCULAR HGB CONC 32 g/dL (31-37); MEAN CORPUSCULAR VOLUME 82 fL (79-100); MONO # 0.7 x10^3/uL (0.0-1.1); MONO % 7 % (0-9); NEUT # 6.3 x10^3uL (1.8-7.7); NEUT % 65 % (31-73); PLATELET COUNT 197 x10^3/uL (140-400); RED BLOOD COUNT 4.33 x10^6/uL (3.50-5.40); RED CELL DISTRIBUTION WIDTH 15.2 % (11.5-14.5); WHITE BLOOD COUNT 9.7 x10^3/uL (4.0-11.0)
[2021-09-27 15:12] LABS: ALBUMIN 2.6 g/dL (3.4-5.0); ALBUMIN/GLOBULIN RATIO 0.6 (1.0-1.7); CALCIUM 8.7 mg/dL (8.5-10.1); CREATININE 0.9 mg/dL (0.6-1.0); GFR 59.7; MAGNESIUM 1.8 mg/dL (1.8-2.4); POTASSIUM 4.4 mmol/L (3.5-5.1); TOTAL BILIRUBIN 0.3 mg/dL (0.2-1.0); TOTAL PROTEIN 7.2 g/dL (6.4-8.2)
[2021-09-27] MEDS: MIRTAZAPINE 15 MG TABLET PO SCH (19:32)
[2021-09-27] MEDS: traZODone 50 MG TABLET. PO SCH (19:32)
[2021-09-27] MEDS: MELATONIN 3 MG TABLET PO SCH (19:33)
[2021-09-27] MEDS: SERTRALINE 50 MG TABLET. PO SCH (19:33)
[2021-09-27] MEDS: QUEtiapine 25 MG TABLET. PO SCH (19:34)
--- NOTE | 2021-09-27 21:42 | PDOC ---
Exam Note: Troy Note: Please also refer to the separate dictated note~for this date of service dictated separately.~Patient seen individually. Discussed the patient with Nursing staff reviewed the chart.~Reviewed interim history and current functioning. Reviewed vital signs,~Labs/ Radiology~and current medications noted below. Continue current treatment with the changes noted in the dictated addendum note Assessment: Vital Signs/I&O: Vital Signs Date Time Temp Pulse Resp B/P (MAP) Pulse Ox O2 Delivery O2 Flow Rate FiO2 09/27/21 13:47 98.0 89 18 133/79 (97) 92 Room Air Labs: Laboratory Tests Test 09/27/21 14:38 09/27/21 19:33 White Blood Count 9.7 x10^3/uL (4.0-11.0) Red Blood Count 4.33 x10^6/uL (3.50-5.40) Hemoglobin 11.4 g/dL (12.0-15.5) L Hematocrit 35.6 % (36.0-47.0) L Mean Corpuscular Volume 82 fL (79-100) Mean Corpuscular Hemoglobin 26 pg (25-35) Mean Corpuscular Hemoglobin Concent 32 g/dL (31-37) Red Cell Distribution Width 15.2 % (11.5-14.5) H Platelet Count 197 x10^3/uL (140-400) Neutrophils (%) (Auto) 65 % (31-73) Lymphocytes (%) (Auto) 26 % (24-48) Monocytes (%) (Auto) 7 % (0-9) Eosinophils (%) (Auto) 2 % (0-3) Basophils (%) (Auto) 0 % (0-3) Neutrophils # (Auto) 6.3 x10^3uL (1.8-7.7) Lymphocytes # (Auto) 2.5 x10^3/uL (1.0-4.8) Monocytes # (Auto) 0.7 x10^3/uL (0.0-1.1) Eosinophils # (Auto) 0.1 x10^3/uL (0.0-0.7) Basophils # (Auto) 0.0 x10^3/uL (0.0-0.2) D-Dimer (Massiel) 4.40 mg/L (0.00-0.50) H Sodium Level 140 mmol/L (136-145) Potassium Level 4.4 mmol/L (3.5-5.1) Chloride Level 102 mmol/L (98-107) Carbon Dioxide Level 30 mmol/L (21-32) Anion Gap 8 (6-14) Blood Urea Nitrogen 18 mg/dL (7-20) Creatinine 0.9 mg/dL (0.6-1.0) Estimated GFR (Cockcroft-Gault) 59.7 BUN/Creatinine Ratio 20 (6-20) Glucose Level 178 mg/dL (70-99) H Calcium Level 8.7 mg/dL (8.5-10.1) Magnesium Level 1.8 mg/dL (1.8-2.4) Total Bilirubin 0.3 mg/dL (0.2-1.0) Aspartate Amino Transferase (AST) 19 U/L (15-37) Alanine Aminotransferase (ALT) 14 U/L (14-59) Alkaline Phosphatase 151 U/L (46-116) H Total Protein 7.2 g/dL (6.4-8.2) Albumin 2.6 g/dL (3.4-5.0) L Albumin/Globulin Ratio 0.6 (1.0-1.7) L Glucose (Fingerstick) 305 mg/dL (70-99) H Current Medications: Meds: Current Medications Medications (Trade) Dose Ordered Sig/Richard Route PRN Reason Start Time Stop Time Status Last Admin Dose Admin Mirtazapine (Remeron) 15 mg QHS PO 09/27/21 21:00 09/27/21 19:32 Quetiapine Fumarate (SEROquel) 25 mg BID PO 09/27/21 21:00 09/27/21 19:34 Sertraline HCl (Zoloft) 50 mg HS PO 09/27/21 21:00 09/27/21 19:33 Trazodone HCl (Desyrel) 25 mg HS PO 09/27/21 21:00 09/27/21 19:32 Melatonin (Melatonin) 3 mg HS PO 09/27/21 21:00 09/27/21 19:33 I have reviewed the current psychotropics carefully including drug interactions. Risk benefit ratio favors no change other than as noted in my dictated progress note. Diagnosis: Problems: (1) Impulse control disorder, unspecified (2) Anxiety disorder, unspecified (3) Dementia, vascular, with depression (4) Dementia, vascular, with delusions (5) Dementia in Alzheimer's disease with depression (6) Dementia in Alzheimer's disease with delusions (7) Dementia of the Alzheimer's type with early onset with behavioral disturbance (8) Major neurocognitive disorder SOO BAIRES MD Sep 27, 2021 21:42
[2021-09-28 00:07] LABS: HEMOGLOBIN A1C 7.3 % (4.8-5.6)
[2021-09-28 00:22] LABS: THYROXINE 5.7 ug/dL (4.5-12.0)
[2021-09-28 06:11] VITALS: BP 113/61
[2021-09-28 06:45] LABS: CLARITY,URINE HAZY; COLOR,URINE YELLOW; GLUCOSE,URINE NEG (NEG)
[2021-09-28 06:46] LABS: NITRITE,URINE NEG (NEG); UROBILINOGEN,URINE 0.2 mg/dL (0.2 mg/dL)
[2021-09-28 06:49] LABS: BACTERIA,URINE MOD /HPF (0-FEW); SQUAMOUS EPITHELIAL CELL,UR FEW /LPF
--- NOTE | 2021-09-28 07:38 | EKG ---
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
[2021-09-28] MEDS: QUEtiapine 25 MG TABLET. PO SCH ×2 (08:17→19:19)
[2021-09-28 11:23] LABS: CHOLESTEROL/HDL RATIO 5.3; THYROID STIM HORMONE (TSH) 1.528 uIU/mL (0.358-3.740)
[2021-09-28 16:03] VITALS: BP 138/62
[2021-09-28] MEDS: traZODone 50 MG TABLET. PO SCH (19:19)
[2021-09-28] MEDS: MELATONIN 3 MG TABLET PO SCH (19:19)
[2021-09-28] MEDS: SERTRALINE 50 MG TABLET. PO SCH (19:20)
[2021-09-28] MEDS: MIRTAZAPINE 15 MG TABLET PO SCH (19:20)
--- NOTE | 2021-09-28 20:44 | PN ---
DATE: 09/28/2021 SUBJECTIVE: The patient is seen today, met with the staff and also covering for Dr. Alicea. Staff reports some improvement with her behavior. She continues to stay in her bed, but disorganized with her thinking and also exhibiting emotional lability and also yelling, mostly in the evening. The patient also hold conversation with imaginary people, very loud and also picking objects which are not there. The patient is compliant with the medications. OBSERVATION: VITAL SIGNS: Temperature 97.8, pulse 68, respirations 18, O2 sat 99%, blood pressure 113/61. CURRENT MEDICATIONS: The patient's current medications include melatonin 3 mg at night, trazodone 25 mg at night, Zoloft 50 mg at night, Seroquel 25 mg twice a day, mirtazapine 15 mg at night. She is also on olanzapine 2.5 mg q. 2 hours p.r.n. The patient is not having any side effects to medications. LABORATORY DATA: The patient's lab reviewed. The patient's hemoglobin was 11.4. The patient's fingerstick glucose 148. Hemoglobin A1c was 7.3 and the patient's glucose level was 178 yesterday. The patient still has elevated liver enzymes, alkaline phosphatase 151. Also, elevated LDL and decreased HDL. ASSESSMENT: 1. 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 Mood disorder, unspecified. PLAN: Continue with the current treatment plan. LENGTH OF STAY: Five to seven days. NICHO DR: [place] TID: [id number]
[2021-09-29 05:39] VITALS: BP 124/74
[2021-09-29] MEDS: QUEtiapine 25 MG TABLET. PO SCH ×2 (08:16→19:34)
[2021-09-29 16:14] VITALS: BP 122/77
[2021-09-29] MEDS: metFORMIN 500 MG TABLET PO SCH (16:43)
[2021-09-29] MEDS: SERTRALINE 50 MG TABLET. PO SCH (19:34)
[2021-09-29] MEDS: MELATONIN 3 MG TABLET PO SCH (19:34)
[2021-09-29] MEDS: MIRTAZAPINE 15 MG TABLET PO SCH (19:34)
[2021-09-29] MEDS: traZODone 50 MG TABLET. PO SCH (19:35)
--- NOTE | 2021-09-29 20:40 | PN ---
SUBJECTIVE: The patient is seen today, met with the staff. Chart was reviewed. Also covering for Dr. Alicea. The patient's behavior remains the same, still confused, withdrawn, isolative. OBSERVATION: VITAL SIGNS: Temperature 98.1, blood pressure 124/74, pulse 82, respirations 20, O2 sat 93%. GENERAL: Slept about 6 hours last night. The patient's appetite improved. The patient is needing assistance with ADLs at times. The patient is difficult to redirect at times. LABORATORY DATA: The patient's lab reviewed. CURRENT MEDICATIONS: Include melatonin 3 mg at night, trazodone 25 mg at night, Zoloft 50 mg at night, Seroquel 25 mg twice a day, mirtazapine 15 mg at night. The patient is also on p.r.n. olanzapine 2.5 mg q. 2 hours p.r.n. She is not having any side effects. The patient is on wheelchair. No recent falls. ASSESSMENT: 1. Dementia, most likely Alzheimer's versus vascular with behavior problems. 2. Mood disorder, unspecified. PLAN: Continue with the current treatment plan. Length of stay, 5 days. BOBBY/MARGI DR: BOBBY/dilshad TID: [id number]
[2021-09-30 06:07] VITALS: BP 136/67
[2021-09-30] MEDS: metFORMIN 500 MG TABLET PO SCH ×2 (08:38→17:15)
[2021-09-30] MEDS: QUEtiapine 25 MG TABLET. PO SCH ×2 (08:38→19:28)
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
[2021-09-30 16:10] VITALS: BP 116/69
[2021-09-30] MEDS: MIRTAZAPINE 15 MG TABLET PO SCH (19:28)
[2021-09-30] MEDS: traZODone 50 MG TABLET. PO SCH (19:28)
[2021-09-30] MEDS: SERTRALINE 50 MG TABLET. PO SCH (19:28)
[2021-09-30] MEDS: MELATONIN 3 MG TABLET PO SCH (19:28)
--- NOTE | 2021-09-30 23:16 | PN ---
DATE: 09/30/2021 SUBJECTIVE: The patient was seen today, met with the staff, chart reviewed, and also covering for Dr. Alicea. The patient's behavior remains the same. She stayed in bed quite a bit. The patient has been eating almost 60% of her meals. The patient is not presenting with any major physical complaints except for difficulty swallowing and also having frequent cough. OBSERVATION: VITAL SIGNS: Temperature 98.5, blood pressure 136/67, pulse 61, respirations 18, O2 sat 97%. GENERAL: Slept about 8 hours last night. The patient has been cooperative with the staff. No major behavior problems. Overall, improved. CURRENT MEDICATIONS: The patient's current medications include melatonin 3 mg at night, trazodone 25 mg at night, Zoloft 50 mg at night, Seroquel 25 mg twice a day and mirtazapine 15 mg at night. The patient denies of any side effects. ASSESSMENT: 1. Dementia, most likely Alzheimer's versus vascular with behavior problems. 2. Mood disorder, unspecified. PLAN: To continue with treatment. LENGTH OF STAY: Three to five days. ZHANG DR: [place] TID: [id number] [facility]
[2021-10-01 05:49] VITALS: BP 116/61
[2021-10-01] MEDS: metFORMIN 500 MG TABLET PO SCH ×2 (07:24→17:06)
[2021-10-01] MEDS: QUEtiapine 25 MG TABLET. PO SCH ×2 (07:24→20:09)
[2021-10-01 17:24] VITALS: BP 153/73
[2021-10-01] MEDS: traZODone 50 MG TABLET. PO SCH (20:08)
[2021-10-01] MEDS: MIRTAZAPINE 15 MG TABLET PO SCH (20:09)
[2021-10-01] MEDS: MELATONIN 3 MG TABLET PO SCH (20:09)
[2021-10-01] MEDS: SERTRALINE 50 MG TABLET. PO SCH (20:09)
--- NOTE | 2021-10-02 01:50 | PN ---
DATE: 10/01/2021 SUBJECTIVE: The patient is seen today, met with the staff. Chart was reviewed. Also covering for Dr. Alicea. Staff reports she is calm, cooperative, compliant with the medications. She continues to have outbursts of loud calling out and also talking to herself loud, holding a conversation, but the patient denies she has any problems hearing voices. OBSERVATION: VITAL SIGNS: Temperature 98.5, blood pressure 116/61, pulse 83, respirations 16, O2 sat 96%. GENERAL: Slept about 9 hours last night. The patient's appetite improved. The patient is not having any physical complaints. LABORATORY DATA: The patient's lab reviewed. CURRENT MEDICATIONS: The patient's current medications include melatonin 3 mg at night, trazodone 25 mg at night, Zoloft 50 mg at night, Seroquel 25 mg twice a day and mirtazapine 15 mg at night. ASSESSMENT: 1. Dementia, most likely Alzheimer's versus vascular with behavior problems. 2. Mood disorder, unspecified. PLAN: To continue with treatment. LENGTH OF STAY: Three to five days. NICHO DR: [place] TID: [id number] [facility]
[2021-10-02 06:05] VITALS: BP 109/58
[2021-10-02] MEDS: QUEtiapine 25 MG TABLET. PO SCH ×2 (08:06→19:38)
[2021-10-02] MEDS: metFORMIN 500 MG TABLET PO SCH ×2 (08:06→16:41)
[2021-10-02 15:50] VITALS: BP 120/73
[2021-10-02] MEDS: MELATONIN 3 MG TABLET PO SCH (19:37)
[2021-10-02] MEDS: SERTRALINE 50 MG TABLET. PO SCH (19:38)
[2021-10-02] MEDS: traZODone 50 MG TABLET. PO SCH (19:38)
[2021-10-02] MEDS: MIRTAZAPINE 15 MG TABLET PO SCH (19:38)
--- NOTE | 2021-10-03 03:03 | PN ---
DATE: 10/02/2021 SUBJECTIVE: The patient was seen today, met with the staff, chart reviewed and also covering for Dr. Alicea. The patient continues to have some behavioral issues, tends to talk loud by herself apparently holding a conversation, but the patient denies of having any auditory or visual hallucinations. The patient is pleasant, having some emotional lability and also periods of confusion. OBSERVATION: VITAL SIGNS: Temperature 97.6, blood pressure 120/73, pulse 77, respirations 16, O2 sat 96%, and sleep improved. LABORATORY DATA: The patient's lab reviewed. CURRENT MEDICATIONS: Melatonin 3 mg at night, trazodone 25 mg at night, Zoloft 50 mg at night, Seroquel 25 mg twice a day, and mirtazapine 15 mg at night. The patient denies of any side effects to medications. ASSESSMENT: 1. Dementia, most likely Alzheimer's versus vascular with behavior problems. 2. Mood disorder, unspecified. PLAN: To continue treatment. LENGTH OF STAY: Three to five days. She is awaiting for placement. BOBBY/PRATIK DR: BOBBY/dilshad TID: [id number]
[2021-10-03 05:54] VITALS: BP 115/66
[2021-10-03] MEDS: metFORMIN 500 MG TABLET PO SCH ×2 (08:18→17:09)
[2021-10-03] MEDS: QUEtiapine 25 MG TABLET. PO SCH ×2 (08:18→21:13)
[2021-10-03 16:22] VITALS: BP 121/60
[2021-10-03] MEDS: traZODone 50 MG TABLET. PO SCH (21:13)
[2021-10-03] MEDS: MIRTAZAPINE 15 MG TABLET PO SCH (21:13)
[2021-10-03] MEDS: SERTRALINE 50 MG TABLET. PO SCH (21:13)
[2021-10-03] MEDS: MELATONIN 3 MG TABLET PO SCH (21:15)
--- NOTE | 2021-10-03 23:35 | PN ---
DATE: 10/03/2021 SUBJECTIVE: The patient was seen today, met with the staff. Chart was reviewed and also covering for Dr. Alicea. Also, participated in the treatment review meeting today. Staff reports no major behavioral problems. She is confused at times, also having some emotional lability, continues to talk loud by herself as though she is holding an argument with another person. The patient denies any visual or auditory hallucinations. The patient has a tendency to misinterpret her environment. The patient is on wheelchair. The patient did not have any falls. OBSERVATION: VITAL SIGNS: Temperature 96.9, blood pressure 115/66, pulse 69, respirations 16, O2 sat 98%. GENERAL: Slept about 6 hours last night. The patient apparently is not presenting with any major behavioral problems. She tends to wander, but not intrusive, pleasant, and no major behavior problems. CURRENT MEDICATIONS: The patient's current medications, melatonin 3 mg at night, trazodone 25 mg at night, Zoloft 50 mg at night, Seroquel 25 mg twice a day, mirtazapine 15 mg at night. She denies of any side effects to medications. ASSESSMENT: 1. Dementia, most likely Alzheimer's versus vascular with behavior problems: 1. Mood disorder, unspecified. PLAN: To continue treatment. LENGTH OF STAY: 3-5 days and she is awaiting for placement. GERALDINE DR: [place] TID: [id number]
[2021-10-04 06:14] VITALS: BP 124/73
[2021-10-04] MEDS: metFORMIN 500 MG TABLET PO SCH ×2 (08:24→17:20)
[2021-10-04] MEDS: QUEtiapine 25 MG TABLET. PO SCH ×2 (08:24→20:06)
[2021-10-04] MEDS ORDERED: NYSTATIN TOPICAL POWDER 15GM BOTTLE. TP ONE (09:36)
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
[2021-10-04 16:00] VITALS: BP 116/78
[2021-10-04] MEDS: MELATONIN 3 MG TABLET PO SCH (20:06)
[2021-10-04] MEDS: MIRTAZAPINE 15 MG TABLET PO SCH (20:06)
[2021-10-04] MEDS: SERTRALINE 50 MG TABLET. PO SCH (20:06)
[2021-10-04] MEDS: traZODone 50 MG TABLET. PO SCH (20:06)
--- NOTE | 2021-10-05 02:25 | PN ---
DATE: 10/04/2021 SUBJECTIVE: The patient is seen today, met with the staff. Chart was reviewed. I am covering for Dr. Alicea. Staff reports no major behavioral problems. She is pleasant, but confused, still tends to hold a conversation to imaginary figures in her room. Staff observed no other behavioral problems. She is not aggressive. She is compliant with the medications. OBSERVATION: VITAL SIGNS: Temperature 97.6, blood pressure 124/73, pulse 84, respirations 18, O2 sat 95%. Slept only 1 hour last night. LABORATORY DATA: The patient's lab reviewed. CURRENT MEDICATIONS: Melatonin 3 mg at night, trazodone 25 mg at night, Zoloft 50 mg at night, Seroquel 25 mg twice a day, mirtazapine 15 mg at night. She is not having any side effects to medications. ASSESSMENT: 1. 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 Mood disorder, unspecified. PLAN: To continue with treatment. LENGTH OF STAY: 3-5 days and awaiting for placement. GERALDINE DR: [place] TID: [id number]
[2021-10-05 05:40] VITALS: BP 133/76
[2021-10-05] MEDS: metFORMIN 500 MG TABLET PO SCH ×2 (08:17→17:36)
[2021-10-05] MEDS: QUEtiapine 25 MG TABLET. PO SCH ×2 (08:17→20:20)
[2021-10-05 15:17] VITALS: BP 145/84
[2021-10-05] MEDS: MIRTAZAPINE 15 MG TABLET PO SCH (20:19)
[2021-10-05] MEDS: traZODone 50 MG TABLET. PO SCH (20:19)
[2021-10-05] MEDS: SERTRALINE 50 MG TABLET. PO SCH (20:19)
[2021-10-05] MEDS: MELATONIN 3 MG TABLET PO SCH (20:20)
--- NOTE | 2021-10-05 23:07 | PN ---
DATE: 10/05/2021 SUBJECTIVE: The patient was seen today, met with the staff. Chart was reviewed. I am covering for Dr. Alicea. Staff reports fluctuating behavior, gets along very well most of the time and today she is irritable, rice, getting paranoid, not trusting anyone including the staff and the doctors. OBSERVATION: VITAL SIGNS: Temperature 97.6, blood pressure 133/66, pulse 89, respirations 18, O2 sat 90%. GENERAL: Slept about 6 hours last night. CURRENT MEDICATIONS: The patient's current medications include melatonin 3 mg at night, trazodone 25 mg at night, Zoloft 50 mg at night, Seroquel 25 mg twice a day, mirtazapine 15 mg at night. The patient is not having any side effects to medications. ASSESSMENT: 1. Dementia, most likely Alzheimer's versus vascular with behavior problems. 2. Mood disorder, unspecified. PLAN: To continue with treatment. LENGTH OF STAY: Three to five days and still awaiting for placement. NICHO DR: [place] TID: [id number]
[2021-10-06] MEDS: traZODone 50 MG TABLET. PO PRN ×2 (00:15→23:03)
[2021-10-06 06:37] VITALS: BP 113/57
[2021-10-06] MEDS: metFORMIN 500 MG TABLET PO SCH ×2 (08:07→17:08)
[2021-10-06] MEDS: QUEtiapine 25 MG TABLET. PO SCH ×2 (08:07→20:39)
[2021-10-06 09:35] LABS: BASO % 0 % (0-3); EOS # 0.2 x10^3/uL (0.0-0.7); EOS % 3 % (0-3); HEMATOCRIT 33.5 % (36.0-47.0); HEMOGLOBIN 10.9 g/dL (12.0-15.5); LYMPH # 2.3 x10^3/uL (1.0-4.8); LYMPH % 28 % (24-48); MEAN CORPUSCULAR HEMOGLOBIN 27 pg (25-35); MEAN CORPUSCULAR HGB CONC 33 g/dL (31-37); MEAN CORPUSCULAR VOLUME 84 fL (79-100); MONO # 0.5 x10^3/uL (0.0-1.1); MONO % 6 % (0-9); NEUT # 5.1 x10^3uL (1.8-7.7); NEUT % 63 % (31-73); PLATELET COUNT 268 x10^3/uL (140-400); WHITE BLOOD COUNT 8.1 x10^3/uL (4.0-11.0)
[2021-10-06 09:38] LABS: ALBUMIN 2.6 g/dL (3.4-5.0); ALBUMIN/GLOBULIN RATIO 0.5 (1.0-1.7); CREATININE 0.9 mg/dL (0.6-1.0); GFR 59.7; POTASSIUM 4.2 mmol/L (3.5-5.1); TOTAL BILIRUBIN 0.2 mg/dL (0.2-1.0); TOTAL PROTEIN 7.4 g/dL (6.4-8.2)
[2021-10-06 12:24] LABS: BACTERIA,URINE FEW /HPF (0-FEW); CLARITY,URINE CLEAR; COLOR,URINE YELLOW; GLUCOSE,URINE NEG (NEG); NITRITE,URINE NEG (NEG); RBC,URINE OCC /HPF (0-2); SQUAMOUS EPITHELIAL CELL,UR OCC /LPF; UROBILINOGEN,URINE 0.2 mg/dL (0.2 mg/dL); YEAST,URINE PRESENT /HPF
[2021-10-06 15:51] VITALS: BP 125/75
--- NOTE | 2021-10-06 20:07 | PN ---
DATE: 10/06/2021 SUBJECTIVE: The patient was seen today, met with the staff, chart reviewed and covering for Dr. Alicea. The patient continues to be restless, disorganized, increased agitation and also delusional, mostly in the evenings. The patient also verbally abusive at times and she continues to talk to herself loud. The patient also when she is in bed tends to be restless, yelling out intermittently. OBSERVATION: VITAL SIGNS: Temperature 97.4, blood pressure 113/57, pulse 74, respirations 18, O2 sat 97%. GENERAL: Slept about 4 hours last night. The patient's appetite normal. LABORATORY DATA: The patient's lab reviewed. CURRENT MEDICATIONS: Melatonin 3 mg at night; trazodone 25 mg at night, was increased to 50 mg at night; Zoloft 50 mg at night; Seroquel 25 mg twice a day and mirtazapine 15 mg at night. She is not having any side effects to medications. ASSESSMENT: 1. 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 Mood disorder, unspecified. PLAN: To continue with the treatment. LENGTH OF STAY: Three to five days. BOBBY/MENG DR: [place] TID: [id number]
[2021-10-06] MEDS: MIRTAZAPINE 15 MG TABLET PO SCH (20:39)
[2021-10-06] MEDS: MELATONIN 3 MG TABLET PO SCH (20:39)
[2021-10-06] MEDS: SERTRALINE 50 MG TABLET. PO SCH (20:39)
[2021-10-06] MEDS: traZODone 50 MG TABLET. PO SCH (20:39)
[2021-10-07 05:47] VITALS: BP 136/55
[2021-10-07] MEDS: QUEtiapine 25 MG TABLET. PO SCH ×2 (08:30→20:14)
[2021-10-07] MEDS: metFORMIN 500 MG TABLET PO SCH ×2 (08:30→17:13)
[2021-10-07 15:41] VITALS: BP 133/68
[2021-10-07] MEDS: MIRTAZAPINE 15 MG TABLET PO SCH (20:14)
[2021-10-07] MEDS: traZODone 50 MG TABLET. PO SCH (20:14)
[2021-10-07] MEDS: MELATONIN 3 MG TABLET PO SCH (20:14)
[2021-10-07] MEDS: SERTRALINE 50 MG TABLET. PO SCH (20:14)
--- NOTE | 2021-10-07 21:40 | PDOC ---
Exam Note: Troy Note: Please also refer to the separate dictated note~for this date of service dictated separately.~Patient seen individually. Discussed the patient with Nursing staff reviewed the chart.~Reviewed interim history and current functioning. Reviewed vital signs,~Labs/ Radiology~and current medications noted below. Continue current treatment with the changes noted in the dictated addendum note Assessment: Vital Signs/I&O: Vital Signs Date Time Temp Pulse Resp B/P (MAP) Pulse Ox O2 Delivery O2 Flow Rate FiO2 10/07/21 15:41 97.4 74 20 133/68 (89) 95 10/07/21 05:47 2.0 10/05/21 05:40 Room Air I & O 0 10/06/21 10/06/21 10/07/21 15:00 23:00 07:00 Intake Total 1160 ml 480 ml Balance 1160 ml 480 ml Labs: Laboratory Tests Test 10/07/21 07:37 Glucose (Fingerstick) 150 mg/dL (70-99) H Current Medications: Meds: Laboratory Tests Test 10/07/21 07:37 Glucose (Fingerstick) 150 mg/dL Current Medications Medications (Trade) Dose Ordered Sig/Richard Route PRN Reason Start Time Stop Time Status Last Admin Dose Admin Acetaminophen (Tylenol) 650 mg PRN Q6HRS PRN PO MILD PAIN / TEMP > 100.3'F 09/27/21 15:00 Mirtazapine (Remeron) 15 mg QHS PO 09/27/21 21:00 10/07/21 20:14 Olanzapine (ZyPREXA ZYDIS) 2.5 mg PRN Q2HRS PRN PO ANXIETY / AGITATION 09/27/21 15:00 10/06/21 23:03 Quetiapine Fumarate (SEROquel) 25 mg BID PO 09/27/21 21:00 10/07/21 20:14 Sertraline HCl (Zoloft) 50 mg HS PO 09/27/21 21:00 10/07/21 20:14 Trazodone HCl (Desyrel) 25 mg HS PO 09/27/21 21:00 10/05/21 18:14 DC 10/04/21 20:06 Melatonin (Melatonin) 3 mg HS PO 09/27/21 21:00 10/07/21 20:14 Metformin HCl (Glucophage) 500 mg BIDWMEALS PO 09/29/21 17:00 10/07/21 17:13 Nystatin (Nystop) 15 sulma STK-MED ONCE TP 10/04/21 09:36 10/04/21 09:36 DC Trazodone HCl (Desyrel) 50 mg HS PO 10/05/21 21:00 10/07/21 20:14 Trazodone HCl (Desyrel) 50 mg PRN QHS PRN PO INSOMNIA 10/05/21 18:15 10/06/21 23:03 I have reviewed the current psychotropics carefully including drug interactions. Risk benefit ratio favors no change other than as noted in my dictated progress note. Diagnosis: Problems: (1) Impulse control disorder, unspecified (2) Anxiety disorder, unspecified (3) Dementia, vascular, with depression (4) Dementia, vascular, with delusions (5) Dementia in Alzheimer's disease with depression (6) Dementia in Alzheimer's disease with delusions (7) Dementia of the Alzheimer's type with early onset with behavioral disturbance (8) Major neurocognitive disorder SOO BAIRES MD Oct 07, 2021 21:40
[2021-10-07] MEDS: traZODone 50 MG TABLET. PO PRN (23:40)
[2021-10-08 06:02] VITALS: BP 149/71
[2021-10-08] MEDS: QUEtiapine 25 MG TABLET. PO SCH ×2 (08:05→20:09)
[2021-10-08] MEDS: metFORMIN 500 MG TABLET PO SCH ×2 (08:05→17:06)
--- NOTE | 2021-10-08 10:45 | TX PLAN ---
Interdisciplinary Tx Plan Admission Information Sep 27, 2021 at 12:55 Legal Status (on Admission): Voluntary DPOA/Guardian Name: Lucille NieceOscar Bergman Contact Other Contact Name: Jayna Sheikh Contact Verified Code Status: Full Code Allergies: Coded Allergies: No Known Drug Allergies (Unverified , 07/16/21) Diagnoses Primary Diagnosis: 1. 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 Mood disorder, unspecified. Reasons for Admission: Aggressive, Delusions, Agitated, Sig. Change Sleep, Hallucinations, Combative Problem in Patient's Words: Per pt great niece/DPOAАнна who was raised mostly by pt, pt has had a noticable decline over the past year and particularlly over the past couple of months. Up until a year ago, pt was living in her independant living apartment and out of the [place], she moved to [place], [place] and bought a house that she paid winn for. She was then found to be living in very poor conditions without running water and no utilities and overall unable to care for herself. She had a few past hospitalizations but then release to herself and then would be found again living in unsafe conditions. At one point, pt drove herself to Анна's home, but refused to come in to stay, and would only stay in her car. Анна was finally successful at gaining DPOA during one of pt's hospitalizations and also in getting her license revoked. During the past year, family and staff during the different hospitalizations discovered pt was having hallucinations and delusions that seem to continue. Анна is concerned if pt is struggling with onset of dementia or if pt is truly experiencing psychosis and might clear in the future with medication management. Additional Admission Comments: Per intake record, pt refusing UA and cath, sexually inappropriate comments to staff, not sleeping for 30 hours, combative to staff, delusions,auditory hallucinations, verbally aggressive, screaming, cussing, disruptive. Problems Active Problems: Agitation Inactive Problems: Pt has shown improvements. She is less aggressive, delusional, and combative. She, also, is sleeping better. Pt Strengths/Limitations Ability for [place]: Poor Cognitive Functioning/Ability: Poor Communication Skills/Ability: Fair Financial Resources: Fair Insight/Judgement: Poor Intellectual Ability: Fair Physical Health: Poor Social Skills: Fair Stability in Family: Fair Stability in School/Work: Fair Verbal Skills: Fair Discharge Criteria Discharge Criteria: Adequate arrangements @DC, Verbal commit med comply, Improved behavior, Improved mood/thought Other Discharge Comments: None at this time. Preliminary Discharge Plan Preliminary DC Plan: Placement Needed Special Precautions Special Precautions: Agitation/Assault, Swallowing/Choking Fall Risk: High Other Precautions (specify): Pt has a history of falls. Initial D/C Plan Pt will need placement at time of discharge. Identified Discharge Needs: None at this time. Currently Utilized Resources Currently Utilized Resources/P: Great Niece/DPOA-Анна Jj has hired and pottery decoration designer to assist with guardianship. Prior to Admission: PCP-Dr. Quang Raza Facility-[facility]; contact-CHANA Cruz *Note-Pt will not return to [facility] Referrals Community Resources: None known at this time. Identified Problems/Hx/Goals Objectives/Short-Term Goals Short Term Goals: Control abnormal behavior, Dec. Aggression, Dec. Anxiety/Panic, Dec. Hallucination/Delus, Dec. Outbursts, Medication Stabilization, Monitor Med Effects, Prevent Deterioration, Promote Coping Skill Short Term Goals in Patient's: Assist with proper diagnosis of psychosis vs dementia. Interventions/Frequency Staff Interventions/Frequency&: Psychiatry to assess pt three times per week for medication management. Nursing to assess behaviors, monitor medications, and complete 15 minute checks daily. Social work to see pt at least two times weekly to aid in return to placement. Activities to encourage pt to participate in group activities daily. 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 Education: According to DPOA, pt received a high school diploma and she had some technical college. Community Follow-up PCP Community Provider/Family Inpu: Pt great nigregorio/Анна LANG, provided pt history for the development of the treatment plan. Анна is available for further information should it be needed. Treatment Plan Explained Patient/Histopathologist had this treatment plan explained to him/her as indicated by the signature below and has been given the opportunity to ask questions and make suggestions: Date: Patient/Histopathologist Signature: Status Update Update Pt has been eating 75% of her meals and averaging 5 hours of sleep at night. She naps often throughout the day. Her memory, insight, and judgment are poor. She has been pleasant on the unit; engaging in conversations even though she remains confused. While pt talks to herself often, it is uncertain if she is having hallucinations. Pt states that she just likes to talk to herself. Pt did have a UA recently collected as she was demonstrating some increased agitation during the evening times. It, however, is considered that she may sundown more toward the evening times. Pt says, "oh my God" quite often, but she this is most likely a phrase she used throughout her life. She gets herself up and down the [place] to the dining area without difficulty. Pt is able to feed herself and is cooperative during cares. She does like to have some advance notice of what is going on. This seems to help her prepare for transitions. She is mostly a one person assist, but occasionally needs two people during transfers. Pt will participate with the [employer]ENE[employer]PER mostly one-on-one. She, however, struggles engaging in an activity that requires concentration and recall. Pt family working with pottery decoration designer for conservatorship and ultimately placement. Treatment plan was completed on 10/07/21 and entered today 10/08/21. LINDA BLACKWELL Oct 08, 2021 10:44
[2021-10-08 15:45] VITALS: BP 134/79
[2021-10-08] MEDS: traZODone 50 MG TABLET. PO PRN (20:09)
[2021-10-08] MEDS: MELATONIN 3 MG TABLET PO SCH (20:09)
[2021-10-08] MEDS: SERTRALINE 50 MG TABLET. PO SCH (20:09)
[2021-10-08] MEDS: traZODone 50 MG TABLET. PO SCH (20:09)
[2021-10-08] MEDS: MIRTAZAPINE 15 MG TABLET PO SCH (20:09)
--- NOTE | 2021-10-08 21:34 | PDOC ---
Exam Note: [place] Note: Please also refer to the separate dictated note~for this date of service dictated separately.~Patient seen individually. Discussed the patient with Nursing staff reviewed the chart.~Reviewed interim history and current functioning. Reviewed vital signs,~Labs/ Radiology~and current medications noted below. Continue current treatment with the changes noted in the dictated addendum note Assessment: Vital Signs/I&O: Vital Signs Date Time Temp Pulse Resp B/P (MAP) Pulse Ox O2 Delivery O2 Flow Rate FiO2 10/08/21 15:45 98.2 81 20 134/79 (97) 97 10/07/21 05:47 2.0 10/05/21 05:40 Room Air I & O 10/07/21 10/07/21 10/08/21 15:00 23:00 07:00 Intake Total 380 ml 240 ml Balance 380 ml 240 ml Labs: Laboratory Tests Test 10/08/21 07:37 Glucose (Fingerstick) 112 mg/dL (70-99) H Current Medications: Meds: Laboratory Tests Test 10/08/21 07:37 Glucose (Fingerstick) 112 mg/dL Current Medications Medications (Trade) Dose Ordered Sig/Richard Route PRN Reason Start Time Stop Time Status Last Admin Dose Admin Acetaminophen (Tylenol) 650 mg PRN Q6HRS PRN PO MILD PAIN / TEMP > 100.3'F 09/27/21 15:00 Mirtazapine (Remeron) 15 mg QHS PO 09/27/21 21:00 10/08/21 20:09 Olanzapine (ZyPREXA ZYDIS) 2.5 mg PRN Q2HRS PRN PO ANXIETY / AGITATION 09/27/21 15:00 10/07/21 23:40 Quetiapine Fumarate (SEROquel) 25 mg BID PO 09/27/21 21:00 10/08/21 20:09 Sertraline HCl (Zoloft) 50 mg HS PO 09/27/21 21:00 10/08/21 20:09 Trazodone HCl (Desyrel) 25 mg HS PO 09/27/21 21:00 10/05/21 18:14 DC 10/04/21 20:06 Melatonin (Melatonin) 3 mg HS PO 09/27/21 21:00 10/08/21 20:09 Metformin HCl (Glucophage) 500 mg BIDWMEALS PO 09/29/21 17:00 10/08/21 17:06 Nystatin (Nystop) 15 sulma STK-MED ONCE TP 10/04/21 09:36 10/04/21 09:36 DC Trazodone HCl (Desyrel) 50 mg HS PO 10/05/21 21:00 10/08/21 20:09 Trazodone HCl (Desyrel) 50 mg PRN QHS PRN PO INSOMNIA 10/05/21 18:15 10/08/21 20:09 I have reviewed the current psychotropics carefully including drug interactions. Risk benefit ratio favors no change other than as noted in my dictated progress note. Diagnosis: Problems: (1) Impulse control disorder, unspecified (2) Anxiety disorder, unspecified (3) Dementia, vascular, with depression (4) Dementia, vascular, with delusions (5) Dementia in Alzheimer's disease with depression (6) Dementia in Alzheimer's disease with delusions (7) Dementia of the Alzheimer's type with early onset with behavioral disturbance (8) Major neurocognitive disorder SOO BAIRES MD Oct 08, 2021 21:33
[2021-10-09 06:12] VITALS: BP 141/64
--- NOTE | 2021-10-09 07:58 | PDOC ---
Exam Note: Troy Note: This note is a late entry for 10/07/2021 covers elements not covered in my initial note. Subjective: The patient was seen individually at treatment team meeting in the morning on 10/07/2021 with Katherine Moreno, Eliza Muniz, and Stephani Curry (community mental health social worker), Martina, activity therapy, Liya RN, discussed and reviewed the chart. Dr. Lake had covered for me for the past two weeks and I have reviewed information, notes and records by Dr. Lake. The unit is currently on lockdown for any admissions due to Covid-19 positive status. The patient slept 4-3/4 hours previous night. She gets agitated at night, yelling out. UA has reflex to culture. She is confused, talking to the nursing staff about selling nursing staff her hospital bed or anything else the staff wants to buy. I met with her in her room at some length in the evening. Review of Systems: Ambulation impaired, in wheelchair. No CV, , pulmonary, eye system symptoms on review. Reliability poor. Mental Status Exam: The patient is oriented to herself. Insight and judgment, recent and remote memory, attention and concentration, fund of knowledge is poor consistent with her diagnosis. Laboratory Data: Reviewed. Impression: Major neurocognitive disorder Alzheimer, vascular, with delusions, depression, behavioral disturbance. Anxiety disorder unspecified. Impulse control disorder unspecified. Plan: I have carefully reviewed the patients current psychotropics as m entioned in my initial note, drug interactions and risk-benefit ratio. We will continue trazodone, Remeron, melatonin, Zoloft, Seroquel and Zyprexa is being used p.r.n. We will make further adjustments as clinically indicated. Assessment: Vital Signs/I&O: Vital Signs Date Time Temp Pulse Resp B/P (MAP) Pulse Ox O2 Delivery O2 Flow Rate FiO2 10/09/21 06:12 98.2 77 20 141/64 (89) 97 Room Air 10/07/21 05:47 2.0 I & O 0 10/08/21 10/08/21 10/09/21 15:00 23:00 07:00 Intake Total 840 ml 360 ml 0 ml Balance 840 ml 360 ml 0 ml Labs: Laboratory Tests Test 10/09/21 07:29 Glucose (Fingerstick) 133 mg/dL (70-99) H Current Medications: I have reviewed the current psychotropics carefully including drug interactions. Risk benefit ratio favors no change other than as noted in my dictated progress note. Diagnosis: Problems: (1) Impulse control disorder, unspecified (2) Anxiety disorder, unspecified (3) Dementia, vascular, with depression (4) Dementia, vascular, with delusions (5) Dementia in Alzheimer's disease with depression (6) Dementia in Alzheimer's disease with delusions (7) Dementia of the Alzheimer's type with early onset with behavioral disturbance (8) Major neurocognitive disorder SOO BAIRES MD Oct 09, 2021 07:58
[2021-10-09] MEDS: QUEtiapine 25 MG TABLET. PO SCH ×2 (08:17→20:03)
[2021-10-09] MEDS: metFORMIN 500 MG TABLET PO SCH ×2 (08:17→17:00)
--- NOTE | 2021-10-09 08:17 | PDOC ---
Exam Note: [place] Note: This note is a late entry for 10/08/2021 covers elements not covered in my initial note. Subjective: The patient was seen individually on 10/08/2021, discussed and reviewed the chart with Liya TANG. The unit is currently on lockdown for any admissions due to Covid-19 positive status. The patient slept 7-1/4 hours previous night. Overall she remains confused, has been yelling out at times. I met with her in her room. Review of Systems: Ambulation impaired, in wheelchair. No CV, , pulmonary, eye system symptoms on review. Mental Status Exam: The patient is oriented to herself. Insight and judgment, recent and remote memory, attention and concentration, fund of knowledge is poor consistent with her diagnosis. Laboratory Data: Reviewed. Impression: Major neurocognitive disorder Alzheimer, vascular, with delusions, depression, behavioral disturbance. Anxiety disorder unspecified. Impulse control disorder unspecified. Plan: No change from initial note. Assessment: Vital Signs/I&O: Vital Signs Date Time Temp Pulse Resp B/P (MAP) Pulse Ox O2 Delivery O2 Flow Rate FiO2 10/09/21 06:12 98.2 77 20 141/64 (89) 97 Room Air 10/07/21 05:47 2.0 I & O 10/08/21 10/08/21 10/09/21 15:00 23:00 07:00 Intake Total 840 ml 360 ml 0 ml Balance 840 ml 360 ml 0 ml Labs: Laboratory Tests Test 10/09/21 07:29 Glucose (Fingerstick) 133 mg/dL (70-99) H Current Medications: I have reviewed the current psychotropics carefully including drug interactions. Risk benefit ratio favors no change other than as noted in my dictated progress note. Diagnosis: Problems: (1) Impulse control disorder, unspecified (2) Anxiety disorder, unspecified (3) Dementia, vascular, with depression (4) Dementia, vascular, with delusions (5) Dementia in Alzheimer's disease with depression (6) Dementia in Alzheimer's disease with delusions (7) Dementia of the Alzheimer's type with early onset with behavioral di sturbance (8) Major neurocognitive disorder SOO BAIRES MD Oct 09, 2021 08:17
[2021-10-09 15:44] VITALS: BP 135/75
[2021-10-09] MEDS: MIRTAZAPINE 15 MG TABLET PO SCH (20:02)
[2021-10-09] MEDS: traZODone 50 MG TABLET. PO SCH (20:02)
[2021-10-09] MEDS: traZODone 50 MG TABLET. PO PRN (20:03)
[2021-10-09] MEDS: MELATONIN 3 MG TABLET PO SCH (20:03)
[2021-10-09] MEDS: SERTRALINE 50 MG TABLET. PO SCH (20:03)
--- NOTE | 2021-10-09 21:28 | PDOC ---
Exam Note: [place] Note: Please also refer to the separate dictated note~for this date of service dictated separately.~Patient seen individually. Discussed the patient with Nursing staff reviewed the chart.~Reviewed interim history and current functioning. Reviewed vital signs,~Labs/ Radiology~and current medications noted below. Continue current treatment with the changes noted in the dictated addendum note Assessment: Vital Signs/I&O: Vital Signs Date Time Temp Pulse Resp B/P (MAP) Pulse Ox O2 Delivery O2 Flow Rate FiO2 10/09/21 15:44 98.0 77 20 135/75 (95) 98 10/09/21 06:12 Room Air 10/07/21 05:47 2.0 I & O 10/08/21 10/08/21 10/09/21 15:00 23:00 07:00 Intake Total 840 ml 360 ml 0 ml Balance 840 ml 360 ml 0 ml Labs: Laboratory Tests Test 10/09/21 07:29 Glucose (Fingerstick) 133 mg/dL (70-99) H Current Medications: Meds: Laboratory Tests Test 10/09/21 07:29 Glucose (Fingerstick) 133 mg/dL Current Medications Medications (Trade) Dose Ordered Sig/Richard Route PRN Reason Start Time Stop Time Status Last Admin Dose Admin Acetaminophen (Tylenol) 650 mg PRN Q6HRS PRN PO MILD PAIN / TEMP > 100.3'F 09/27/21 15:00 Mirtazapine (Remeron) 15 mg QHS PO 09/27/21 21:00 10/09/21 20:02 Olanzapine (ZyPREXA ZYDIS) 2.5 mg PRN Q2HRS PRN PO ANXIETY / AGITATION 09/27/21 15:00 10/09/21 20:02 Quetiapine Fumarate (SEROquel) 25 mg BID PO 09/27/21 21:00 10/09/21 20:03 Sertraline HCl (Zoloft) 50 mg HS PO 09/27/21 21:00 10/09/21 20:03 Trazodone HCl (Desyrel) 25 mg HS PO 09/27/21 21:00 10/05/21 18:14 DC 10/04/21 20:06 Melatonin (Melatonin) 3 mg HS PO 09/27/21 21:00 10/09/21 20:03 Metformin HCl (Glucophage) 500 mg BIDWMEALS PO 09/29/21 17:00 10/09/21 17:00 Nystatin (Nystop) 15 sulma STK-MED ONCE TP 10/04/21 09:36 10/04/21 09:36 DC Trazodone HCl (Desyrel) 50 mg HS PO 10/05/21 21:00 10/09/21 20:02 Trazodone HCl (Desyrel) 50 mg PRN QHS PRN PO INSOMNIA 10/05/21 18:15 10/09/21 20:03 I have reviewed the current psychotropics carefully including drug interactions. Risk benefit ratio favors no change other than as noted in my dictated progress note. Diagnosis: Problems: (1) Impulse control disorder, unspecified (2) Anxiety disorder, unspecified (3) Dementia, vascular, with depression (4) Dementia, vascular, with delusions (5) Dementia in Alzheimer's disease with depression (6) Dementia in Alzheimer's disease with delusions (7) Dementia of the Alzheimer's type with early onset with behavioral disturbance (8) Major neurocognitive disorder SOO BAIRES MD Oct 09, 2021 21:28
[2021-10-10 06:07] VITALS: BP 136/78
--- NOTE | 2021-10-10 08:00 | PDOC ---
Exam Note: [place] Note: This note is a late entry for 10/09/2021 covers elements not covered in my initial note. Subjective: The patient was seen on telehealth rounds with Honey TANG on 10/09/2021, discussed and reviewed the chart with Ester TANG. The patient slept 6-1/2 hours previous night. She remains confused, irritable in the morning, somewhat delusional, disorganized. Review of Systems: Ambulation impaired, in wheelchair. No CV, , pulmonary, eye system symptoms on review. Reliability poor. Mental Status Exam: The patient is oriented to herself. Insight and judgment, recent and remote memory, attention and concentration, fund of knowledge is poor consistent with her diagnosis. Laboratory Data: Reviewed. Impression: Major neurocognitive disorder Alzheimer, vascular, with delusions, depression, behavioral disturbance. Anxiety disorder unspecified. Impulse control disorder unspecified. Plan: Continue current psychotropics. Adjust further as clinically indicated. Assessment: Vital Signs/I&O: Vital Signs Date Time Temp Pulse Resp B/P (MAP) Pulse Ox O2 Delivery O2 Flow Rate FiO2 10/10/21 06:07 97.0 74 16 136/78 (97) 97 10/09/21 06:12 Room Air 10/07/21 05:47 2.0 I & O 10/09/21 10/09/21 10/10/21 15:00 23:00 07:00 Intake Total 240 ml 480 ml Balance 240 ml 480 ml Labs: Laboratory Tests Test 10/10/21 07:36 Glucose (Fingerstick) 136 mg/dL (70-99) H Current Medications: I have reviewed the current psychotropics carefully including drug interactions. Risk benefit ratio favors no change other than as noted in my dictated progress note. Diagnosis: Problems: (1) Impulse control disorder, unspecified (2) Anxiety disorder, unspecified (3) Dementia, vascular, with depression (4) Dementia, vascular, with delusions (5) Dementia in Alzheimer's disease with depression (6) Dementia in Alzheimer's disease with delusions (7) Dementia of the Alzheimer's type with early onset with behavioral disturbance (8) Major neurocognitive disorder SOO BAIRES MD Oct 10, 2021 08:00
[2021-10-10] MEDS: metFORMIN 500 MG TABLET PO SCH ×2 (08:09→17:10)
[2021-10-10] MEDS: QUEtiapine 25 MG TABLET. PO SCH ×2 (08:10→19:58)
[2021-10-10 16:28] VITALS: BP 125/62
[2021-10-10] MEDS: SERTRALINE 50 MG TABLET. PO SCH (19:58)
[2021-10-10] MEDS: traZODone 50 MG TABLET. PO SCH (19:58)
[2021-10-10] MEDS: traZODone 50 MG TABLET. PO PRN (19:58)
[2021-10-10] MEDS: ACETAMINOPHEN 325 MG TABLET PO PRN (19:58)
[2021-10-10] MEDS: MIRTAZAPINE 15 MG TABLET PO SCH (19:58)
[2021-10-10] MEDS: MELATONIN 3 MG TABLET PO SCH (19:58)
--- NOTE | 2021-10-10 22:10 | PDOC ---
Exam Note: [place] Note: Please also refer to the separate dictated note~for this date of service dictated separately.~Patient seen individually. Discussed the patient with Nursing staff reviewed the chart.~Reviewed interim history and current functioning. Reviewed vital signs,~Labs/ Radiology~and current medications noted below. Continue current treatment with the changes noted in the dictated addendum note Assessment: Vital Signs/I&O: Vital Signs Date Time Temp Pulse Resp B/P (MAP) Pulse Ox O2 Delivery O2 Flow Rate FiO2 10/10/21 16:28 97.2 76 20 125/62 (83) 96 Room Air 10/07/21 05:47 2.0 I & O 10/09/21 10/09/21 10/10/21 15:00 23:00 07:00 Intake Total 240 ml 480 ml Balance 240 ml 480 ml Labs: Laboratory Tests Test 10/10/21 07:36 Glucose (Fingerstick) 136 mg/dL (70-99) H Current Medications: Meds: Laboratory Tests Test 10/10/21 07:36 Glucose (Fingerstick) 136 mg/dL Current Medications Medications (Trade) Dose Ordered Sig/Richard Route PRN Reason Start Time Stop Time Status Last Admin Dose Admin Acetaminophen (Tylenol) 650 mg PRN Q6HRS PRN PO MILD PAIN / TEMP > 100.3'F 09/27/21 15:00 10/10/21 19:58 Mirtazapine (Remeron) 15 mg QHS PO 09/27/21 21:00 10/10/21 19:58 Olanzapine (ZyPREXA ZYDIS) 2.5 mg PRN Q2HRS PRN PO ANXIETY / AGITATION 09/27/21 15:00 10/10/21 19:58 Quetiapine Fumarate (SEROquel) 25 mg BID PO 09/27/21 21:00 10/10/21 19:58 Sertraline HCl (Zoloft) 50 mg HS PO 09/27/21 21:00 10/10/21 19:58 Trazodone HCl (Desyrel) 25 mg HS PO 09/27/21 21:00 10/05/21 18:14 DC 10/04/21 20:06 Melatonin (Melatonin) 3 mg HS PO 09/27/21 21:00 10/10/21 19:58 Metformin HCl (Glucophage) 500 mg BIDWMEALS PO 09/29/21 17:00 10/10/21 17:10 Nystatin (Nystop) 15 sulma STK-MED ONCE TP 10/04/21 09:36 10/04/21 09:36 DC Trazodone HCl (Desyrel) 50 mg HS PO 10/05/21 21:00 10/10/21 19:58 Trazodone HCl (Desyrel) 50 mg PRN QHS PRN PO INSOMNIA 10/05/21 18:15 10/10/21 19:58 I have reviewed the current psychotropics carefully including drug interactions. Risk benefit ratio favors no change other than as noted in my dictated progress note. Diagnosis: Problems: (1) Impulse control disorder, unspecified (2) Anxiety disorder, unspecified (3) Dementia, vascular, with depression (4) Dementia, vascular, with delusions (5) Dementia in Alzheimer's disease with depression (6) Dementia in Alzheimer's disease with delusions (7) Dementia of the Alzheimer's type with early onset with behavioral disturbance (8) Major neurocognitive disorder SOO BAIRES MD Oct 10, 2021 22:10
[2021-10-11 06:03] VITALS: BP 107/58
[2021-10-11] MEDS: metFORMIN 500 MG TABLET PO SCH ×2 (08:11→17:27)
[2021-10-11] MEDS: QUEtiapine 25 MG TABLET. PO SCH ×2 (08:11→19:52)
[2021-10-11 16:00] VITALS: BP 124/72
[2021-10-11] MEDS: MIRTAZAPINE 15 MG TABLET PO SCH (19:52)
[2021-10-11] MEDS: MELATONIN 3 MG TABLET PO SCH (19:52)
[2021-10-11] MEDS: traZODone 50 MG TABLET. PO SCH (19:53)
[2021-10-11] MEDS: ACETAMINOPHEN 325 MG TABLET PO PRN (19:54)
[2021-10-11] MEDS: SERTRALINE 50 MG TABLET. PO SCH (19:56)
--- NOTE | 2021-10-11 21:52 | PDOC ---
Exam Note: [place] Note: Please also refer to the separate dictated note~for this date of service dictated separately.~Patient seen individually. Discussed the patient with Nursing staff reviewed the chart.~Reviewed interim history and current functioning. Reviewed vital signs,~Labs/ Radiology~and current medications noted below. Continue current treatment with the changes noted in the dictated addendum note Assessment: Vital Signs/I&O: Vital Signs Date Time Temp Pulse Resp B/P (MAP) Pulse Ox O2 Delivery O2 Flow Rate FiO2 10/11/21 16:00 97.2 85 20 124/72 (89) 97 Room Air 10/07/21 05:47 2.0 I & O 10/10/21 10/10/21 10/11/21 15:00 23:00 07:00 Intake Total 100 ml 720 ml Balance 100 ml 720 ml Labs: Laboratory Tests Test 10/11/21 07:45 Glucose (Fingerstick) 109 mg/dL (70-99) H Current Medications: Meds: Laboratory Tests Test 10/11/21 07:45 Glucose (Fingerstick) 109 mg/dL Current Medications Medications (Trade) Dose Ordered Sig/Richard Route PRN Reason Start Time Stop Time Status Last Admin Dose Admin Acetaminophen (Tylenol) 650 mg PRN Q6HRS PRN PO MILD PAIN / TEMP > 100.3'F 09/27/21 15:00 10/11/21 19:54 Mirtazapine (Remeron) 15 mg QHS PO 09/27/21 21:00 10/11/21 19:52 Olanzapine (ZyPREXA ZYDIS) 2.5 mg PRN Q2HRS PRN PO ANXIETY / AGITATION 09/27/21 15:00 10/11/21 19:52 Quetiapine Fumarate (SEROquel) 25 mg BID PO 09/27/21 21:00 10/11/21 19:52 Sertraline HCl (Zoloft) 50 mg HS PO 09/27/21 21:00 10/11/21 19:56 Trazodone HCl (Desyrel) 25 mg HS PO 09/27/21 21:00 10/05/21 18:14 DC 10/04/21 20:06 Melatonin (Melatonin) 3 mg HS PO 09/27/21 21:00 10/11/21 19:52 Metformin HCl (Glucophage) 500 mg BIDWMEALS PO 09/29/21 17:00 10/11/21 17:27 Nystatin (Nystop) 15 sulma STK-MED ONCE TP 10/04/21 09:36 10/04/21 09:36 DC Trazodone HCl (Desyrel) 50 mg HS PO 10/05/21 21:00 10/11/21 19:53 Trazodone HCl (Desyrel) 50 mg PRN QHS PRN PO INSOMNIA 10/05/21 18:15 10/10/21 19:58 I have reviewed the current psychotropics carefully including drug interactions. Risk benefit ratio favors no change other than as noted in my dictated progress note. Diagnosis: Problems: (1) Impulse control disorder, unspecified (2) Anxiety disorder, unspecified (3) Dementia, vascular, with depression (4) Dementia, vascular, with delusions (5) Dementia in Alzheimer's disease with depression (6) Dementia in Alzheimer's disease with delusions (7) Dementia of the Alzheimer's type with early onset with behavioral disturbance (8) Major neurocognitive disorder SOO BAIRES MD Oct 11, 2021 21:52
[2021-10-12] MEDS: traZODone 50 MG TABLET. PO PRN (01:54)
[2021-10-12 06:15] VITALS: BP 120/68
--- NOTE | 2021-10-12 07:57 | PDOC ---
Exam Note: [place] Note: This note is a late entry for 10/10/2021 covers elements not covered in my initial note. Subjective: The patient was seen individually on rounds on 10/10/2021, discussed and reviewed the chart with Ester TANG. The patient slept 5-1/2 hours previous night. She was irritable in the morning, somewhat delusional at times. She has been frustrated with one of the other demented patients being quite intrusive with her in her room. Review of Systems: Ambulation impaired, in wheelchair. I met with her in her room. No CV, , pulmonary, eye system symptoms on review. Mental Status Exam: The patient is oriented to herself. Insight and judgment, recent and remote memory, attention and concentration, fund of knowledge is poor consistent with her diagnosis. Laboratory Data: Reviewed. Impression: Major neurocognitive disorder Alzheimer, vascular, with delusions, depression, behavioral disturbance. Anxiety disorder unspecified. Impulse co ntrol disorder unspecified. Plan: Continue current psychotropics. Adjust further as clinically indicated. Assessment: Vital Signs/I&O: Vital Signs Date Time Temp Pulse Resp B/P (MAP) Pulse Ox O2 Delivery O2 Flow Rate FiO2 10/12/21 06:15 98.0 80 18 120/68 (85) 93 10/11/21 16:00 Room Air 10/07/21 05:47 2.0 I & O 10/11/21 10/11/21 10/12/21 15:00 23:00 07:00 Intake Total 600 ml 600 ml Balance 600 ml 600 ml Labs: Laboratory Tests Test 10/12/21 07:18 Glucose (Fingerstick) 94 mg/dL (70-99) Current Medications: I have reviewed the current psychotropics carefully including drug interactions. Risk benefit ratio favors no change other than as noted in my dictated progress note. Diagnosis: Problems: (1) Impulse control disorder, unspecified (2) Anxiety disorder, unspecified (3) Dementia, vascular, with depression (4) Dementia, vascular, with delusions (5) Dementia in Alzheimer's disease with depression (6) Dementia in Alzheimer's disease with delusions (7) Dementia of the Alzheimer's type with early onset with behavioral disturbance (8) Major neurocognitive disorder SOO BAIRES MD Oct 12, 2021 07:57
--- NOTE | 2021-10-12 08:06 | PDOC ---
Exam Note: [place] Note: This note is a late entry for 10/11/2021 covers elements not covered in my initial note. Subjective: The patient was seen individually on 10/11/2021, discussed and reviewed the chart with Nikia TANG. The patient slept 5 hours previous night. I met with her in her room. She has been yelling less, takes naps in the afternoon. Appetite is fair. Review of Systems: Ambulation impaired, in wheelchair. No CV, , pulmonary, eye system symptoms on review. Reliability poor. Mental Status Exam: The patient is oriented to herself. She was verbal, interactive, confused, talking about wanting to go home to her parents and her sister was waiting for her, none of which is true. No suicidal or homicidal ideation. Attention span short. Language function intact. Mood and affect remains labile. Laboratory Data: Reviewed. Impression: Major neurocognitive disorder Alzheimer, vascular, with delusions, depression, behavioral disturbance. Anxiety disorder unspecified. Impulse control disorder unspecified. Plan: Continue current psychotropics. Adjust further as clinically indicated. Assessment: Vital Signs/I&O: Vital Signs Date Time Temp Pulse Resp B/P (MAP) Pulse Ox O2 Delivery O2 Flow Rate FiO2 10/12/21 06:15 98.0 80 18 120/68 (85) 93 10/11/21 16:00 Room Air 10/07/21 05:47 2.0 I & O 10/11/21 10/11/21 10/12/21 15:00 23:00 07:00 Intake Total 600 ml 600 ml Balance 600 ml 600 ml Labs: Laboratory Tests Test 10/12/21 07:18 Glucose (Fingerstick) 94 mg/dL (70-99) Current Medications: I have reviewed the current psychotropics carefully including drug interactions. Risk benefit ratio favors no change other than as noted in my dictated progress note. Diagnosis: Problems: (1) Impulse control disorder, unspecified (2) Anxiety disorder, unspecified (3) Dementia, vascular, with depression (4) Dementia, vascular, with delusions (5) Dementia in Alzheimer's disease with depression (6) Dementia in Alzheimer's disease with delusions (7) Dementia of the Alzheimer's type with early onset with behavioral dis turbance (8) Major neurocognitive disorder SOO BAIRES MD Oct 12, 2021 08:06
[2021-10-12] MEDS: QUEtiapine 25 MG TABLET. PO SCH ×2 (08:17→19:59)
[2021-10-12] MEDS: metFORMIN 500 MG TABLET PO SCH ×2 (08:17→17:25)
[2021-10-12 15:40] VITALS: BP 128/58
[2021-10-12] MEDS: traZODone 50 MG TABLET. PO SCH (19:59)
[2021-10-12] MEDS: MIRTAZAPINE 15 MG TABLET PO SCH (19:59)
[2021-10-12] MEDS: SERTRALINE 50 MG TABLET. PO SCH (19:59)
[2021-10-12] MEDS: MELATONIN 3 MG TABLET PO SCH (19:59)
--- NOTE | 2021-10-12 21:41 | PDOC ---
Exam Note: [place] Note: Please also refer to the separate dictated note~for this date of service dictated separately.~Patient seen individually. Discussed the patient with Nursing staff reviewed the chart.~Reviewed interim history and current functioning. Reviewed vital signs,~Labs/ Radiology~and current medications noted below. Continue current treatment with the changes noted in the dictated addendum note Assessment: Vital Signs/I&O: Vital Signs Date Time Temp Pulse Resp B/P (MAP) Pulse Ox O2 Delivery O2 Flow Rate FiO2 10/12/21 15:40 98.1 79 19 128/58 (81) 97 10/11/21 16:00 Room Air 10/07/21 05:47 2.0 I & O 10/11/21 10/11/21 10/12/21 14:59 22:59 06:59 Intake Total 600 ml 600 ml Balance 600 ml 600 ml Labs: Laboratory Tests Test 10/12/21 07:18 Glucose (Fingerstick) 94 mg/dL (70-99) Current Medications: Meds: Laboratory Tests Test 10/12/21 07:18 Glucose (Fingerstick) 94 mg/dL Current Medications Medications (Trade) Dose Ordered Sig/Richard Route PRN Reason Start Time Stop Time Status Last Admin Dose Admin Acetaminophen (Tylenol) 650 mg PRN Q6HRS PRN PO MILD PAIN / TEMP > 100.3'F 09/27/21 15:00 10/11/21 19:54 Mirtazapine (Remeron) 15 mg QHS PO 09/27/21 21:00 10/12/21 19:59 Olanzapine (ZyPREXA ZYDIS) 2.5 mg PRN Q2HRS PRN PO ANXIETY / AGITATION 09/27/21 15:00 10/11/21 19:52 Quetiapine Fumarate (SEROquel) 25 mg BID PO 09/27/21 21:00 10/12/21 19:59 Sertraline HCl (Zoloft) 50 mg HS PO 09/27/21 21:00 10/12/21 19:59 Trazodone HCl (Desyrel) 25 mg HS PO 09/27/21 21:00 10/05/21 18:14 DC 10/04/21 20:06 Melatonin (Melatonin) 3 mg HS PO 09/27/21 21:00 10/12/21 19:59 Metformin HCl (Glucophage) 500 mg BIDWMEALS PO 09/29/21 17:00 10/12/21 17:25 Nystatin (Nystop) 15 sulma STK-MED ONCE TP 10/04/21 09:36 10/04/21 09:36 DC Trazodone HCl (Desyrel) 50 mg HS PO 10/05/21 21:00 10/12/21 19:59 Trazodone HCl (Desyrel) 50 mg PRN QHS PRN PO INSOMNIA 10/05/21 18:15 10/12/21 01:54 I have reviewed the current psychotropics carefully including drug interactions. Risk benefit ratio favors no change other than as noted in my dictated progress note. 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
[2021-10-13 05:43] VITALS: BP 103/60
[2021-10-13] MEDS: QUEtiapine 25 MG TABLET. PO SCH ×2 (08:07→19:59)
[2021-10-13] MEDS: metFORMIN 500 MG TABLET PO SCH ×2 (08:07→17:15)
[2021-10-13 08:13] LABS: BASO % 1 % (0-3); EOS # 0.3 x10^3/uL (0.0-0.7); EOS % 3 % (0-3); HEMATOCRIT 32.9 % (36.0-47.0); HEMOGLOBIN 10.3 g/dL (12.0-15.5); LYMPH # 2.7 x10^3/uL (1.0-4.8); LYMPH % 34 % (24-48); MEAN CORPUSCULAR HEMOGLOBIN 26 pg (25-35); MEAN CORPUSCULAR HGB CONC 31 g/dL (31-37); MEAN CORPUSCULAR VOLUME 83 fL (79-100); MONO # 0.4 x10^3/uL (0.0-1.1); MONO % 5 % (0-9); NEUT # 4.5 x10^3uL (1.8-7.7); NEUT % 57 % (31-73); PLATELET COUNT 229 x10^3/uL (140-400); RED BLOOD COUNT 3.98 x10^6/uL (3.50-5.40)
[2021-10-13 08:22] LABS: ALBUMIN 2.4 g/dL (3.4-5.0); ALBUMIN/GLOBULIN RATIO 0.5 (1.0-1.7); CALCIUM 8.6 mg/dL (8.5-10.1); CREATININE 0.9 mg/dL (0.6-1.0); GFR 59.7; POTASSIUM 4.5 mmol/L (3.5-5.1); TOTAL BILIRUBIN 0.2 mg/dL (0.2-1.0)
[2021-10-13 16:31] VITALS: BP 122/68
[2021-10-13] MEDS: MELATONIN 3 MG TABLET PO SCH (19:59)
[2021-10-13] MEDS: traZODone 50 MG TABLET. PO SCH (19:59)
[2021-10-13] MEDS: MIRTAZAPINE 15 MG TABLET PO SCH (19:59)
[2021-10-13] MEDS: SERTRALINE 50 MG TABLET. PO SCH (19:59)
--- NOTE | 2021-10-13 21:43 | PDOC ---
Exam Note: [place] Note: Please also refer to the separate dictated note~for this date of service dictated separately.~Patient seen individually. Discussed the patient with Nursing staff reviewed the chart.~Reviewed interim history and current functioning. Reviewed vital signs,~Labs/ Radiology~and current medications noted below. Continue current treatment with the changes noted in the dictated addendum note Assessment: Vital Signs/I&O: Vital Signs Date Time Temp Pulse Resp B/P (MAP) Pulse Ox O2 Delivery O2 Flow Rate FiO2 10/13/21 16:31 97.4 66 18 122/68 (86) 96 Room Air 10/13/21 05:43 2.0 I & O 10/12/21 10/12/21 10/13/21 15:00 23:00 07:00 Intake Total 860 ml 480 ml Balance 860 ml 480 ml Labs: Laboratory Tests Test 10/13/21 07:55 White Blood Count 8.0 x10^3/uL (4.0-11.0) Red Blood Count 3.98 x10^6/uL (3.50-5.40) Hemoglobin 10.3 g/dL (12.0-15.5) L Hematocrit 32.9 % (36.0-47.0) L Mean Corpuscular Volume 83 fL (79-100) Mean Corpuscular Hemoglobin 26 pg (25-35) Mean Corpuscular Hemoglobin Concent 31 g/dL (31-37) Red Cell Distribution Width 16.0 % (11.5-14.5) H Platelet Count 229 x10^3/uL (140-400) Neutrophils (%) (Auto) 57 % (31-73) Lymphocytes (%) (Auto) 34 % (24-48) Monocytes (%) (Auto) 5 % (0-9) Eosinophils (%) (Auto) 3 % (0-3) Basophils (%) (Auto) 1 % (0-3) Neutrophils # (Auto) 4.5 x10^3uL (1.8-7.7) Lymphocytes # (Auto) 2.7 x10^3/uL (1.0-4.8) Monocytes # (Auto) 0.4 x10^3/uL (0.0-1.1) Eosinophils # (Auto) 0.3 x10^3/uL (0.0-0.7) Basophils # (Auto) 0.0 x10^3/uL (0.0-0.2) Sodium Level 142 mmol/L (136-145) Potassium Level 4.5 mmol/L (3.5-5.1) Chloride Level 105 mmol/L (98-107) Carbon Dioxide Level 28 mmol/L (21-32) Anion Gap 9 (6-14) Blood Urea Nitrogen 25 mg/dL (7-20) H Creatinine 0.9 mg/dL (0.6-1.0) Estimated GFR (Cockcroft-Gault) 59.7 BUN/Creatinine Ratio 28 (6-20) H Glucose Level 114 mg/dL (70-99) H Calcium Level 8.6 mg/dL (8.5-10.1) Total Bilirubin 0.2 mg/dL (0.2-1.0) Aspartate Amino Transferase (AST) 22 U/L (15-37) Alanine Aminotransferase (ALT) 33 U/L (14-59) Alkaline Phosphatase 125 U/L (46-116) H Total Protein 7.0 g/dL (6.4-8.2) Albumin 2.4 g/dL (3.4-5.0) L Albumin/Globulin Ratio 0.5 (1.0-1.7) L Current Medications: Meds: Laboratory Tests Test 10/13/21 07:55 White Blood Count 8.0 x10^3/uL Red Blood Count 3.98 x10^6/uL Hemoglobin 10.3 g/dL Hematocrit 32.9 % Mean Corpuscular Volume 83 fL Mean Corpuscular Hemoglobin 26 pg Mean Corpuscular Hemoglobin Concent 31 g/dL Red Cell Distribution Width 16.0 % Platelet Count 229 x10^3/uL Neutrophils (%) (Auto) 57 % Lymphocytes (%) (Auto) 34 % Monocytes (%) (Auto) 5 % Eosinophils (%) (Auto) 3 % Basophils (%) (Auto) 1 % Neutrophils # (Auto) 4.5 x10^3uL Lymphocytes # (Auto) 2.7 x10^3/uL Monocytes # (Auto) 0.4 x10^3/uL Eosinophils # (Auto) 0.3 x10^3/uL Basophils # (Auto) 0.0 x10^3/uL Sodium Level 142 mmol/L Potassium Level 4.5 mmol/L Chloride Level 105 mmol/L Carbon Dioxide Level 28 mmol/L Anion Gap 9 Blood Urea Nitrogen 25 mg/dL Creatinine 0.9 mg/dL Estimated GFR (Cockcroft-Gault) 59.7 BUN/Creatinine Ratio 28 Glucose Level 114 mg/dL Calcium Level 8.6 mg/dL Total Bilirubin 0.2 mg/dL Aspartate Amino Transf (AST/SGOT) 22 U/L Alanine Aminotransferase (ALT/SGPT) 33 U/L Alkaline Phosphatase 125 U/L Total Protein 7.0 g/dL Albumin 2.4 g/dL Albumin/Globulin Ratio 0.5 Current Medications Medications (Trade) Dose Ordered Sig/Richard Route PRN Reason Start Time Stop Time Status Last Admin Dose Admin Acetaminophen (Tylenol) 650 mg PRN Q6HRS PRN PO MILD PAIN / TEMP > 100.3'F 09/27/21 15:00 10/11/21 19:54 Mirtazapine (Remeron) 15 mg QHS PO 09/27/21 21:00 10/13/21 19:59 Olanzapine (ZyPREXA ZYDIS) 2.5 mg PRN Q2HRS PRN PO ANXIETY / AGITATION 09/27/21 15:00 10/11/21 19:52 Quetiapine Fumarate (SEROquel) 25 mg BID PO 09/27/21 21:00 10/13/21 19:59 Sertraline HCl (Zoloft) 50 mg HS PO 09/27/21 21:00 10/13/21 19:59 Trazodone HCl (Desyrel) 25 mg HS PO 09/27/21 21:00 10/05/21 18:14 DC 10/04/21 20:06 Melatonin (Melatonin) 3 mg HS PO 09/27/21 21:00 10/13/21 19:59 Metformin HCl (Glucophage) 500 mg BIDWMEALS PO 09/29/21 17:00 10/13/21 17:15 Nystatin (Nystop) 15 sulma STK-MED ONCE TP 10/04/21 09:36 10/04/21 09:36 DC Trazodone HCl (Desyrel) 50 mg HS PO 10/05/21 21:00 10/13/21 19:59 Trazodone HCl (Desyrel) 50 mg PRN QHS PRN PO INSOMNIA 10/05/21 18:15 10/12/21 01:54 I have reviewed the current psychotropics carefully including drug interactions. Risk benefit ratio favors no change other than as noted in my dictated progress note. Diagnosis: Problems: (1) Impulse control disorder, unspecified (2) Anxiety disorder, unspecified (3) Dementia, vascular, with depression (4) Dementia, vascular, with delusions (5) Dementia in Alzheimer's disease with depression (6) Dementia in Alzheimer's disease with delusions (7) Dementia of the Alzheimer's type with early onset with behavioral disturbance (8) Major neurocognitive disorder SOO BAIRES MD Oct 13, 2021 21:43
[2021-10-14 05:39] VITALS: BP 117/70
--- NOTE | 2021-10-14 07:05 | PDOC ---
Exam Note: [place] Note: This note is a late entry for 10/12/2021 covers elements not covered in my initial note. Subjective: The patient was seen individually on 10/12/2021, discussed and reviewed the chart with Ester TANG. The patient slept 5-1/4 hours previous night. Overall she is doing better, not yelling at times. Review of Systems: Ambulation impaired, in wheelchair. No CV, , pulmonary, eye system symptoms on review. Mental Status Exam: The patient is oriented to herself. She is quite verbal, animated as I met with her in her room insisting I come in and sit down with he r. She is disorganized, talking about going home to her mother, confused. Abstraction fair. Computation impaired. No suicidal or homicidal ideation. Attention span short. Language function intact. Mood and affect remains labile. Laboratory Data: Reviewed. Impression: Major neurocognitive disorder Alzheimer, vascular, with delusions, depression, behavioral disturbance. Anxiety disorder unspecified. Impulse control disorder unspecified. Plan: Continue current psychotropics. Adjust further as clinically indicated. Assessment: Vital Signs/I&O: Vital Signs Date Time Temp Pulse Resp B/P (MAP) Pulse Ox O2 Delivery O2 Flow Rate FiO2 10/14/21 05:39 98.0 72 16 117/70 (86) 95 Room Air 10/13/21 05:43 2.0 I & O 10/13/21 10/13/21 10/14/21 15:00 23:00 07:00 Intake Total 800 ml 400 ml Balance 800 ml 400 ml Labs: Laboratory Tests Test 10/13/21 07:55 White Blood Count 8.0 x10^3/uL (4.0-11.0) Red Blood Count 3.98 x10^6/uL (3.50-5.40) Hemoglobin 10.3 g/dL (12.0-15.5) L Hematocrit 32.9 % (36.0-47.0) L Mean Corpuscular Volume 83 fL (79-100) Mean Corpuscular Hemoglobin 26 pg (25-35) Mean Corpuscular Hemoglobin Concent 31 g/dL (31-37) Red Cell Distribution Width 16.0 % (11.5-14.5) H Platelet Count 229 x10^3/uL (140-400) Neutrophils (%) (Auto) 57 % (31-73) Lymphocytes (%) (Auto) 34 % (24-48) Monocytes (%) (Auto) 5 % (0-9) Eosinophils (%) (Auto) 3 % (0-3) Basophils (%) (Auto) 1 % (0-3) Neutrophils # (Auto) 4.5 x10^3uL (1.8-7.7) Lymphocytes # (Auto) 2.7 x10^3/uL (1.0-4.8) Monocytes # (Auto) 0.4 x10^3/uL (0.0-1.1) Eosinophils # (Auto) 0.3 x10^3/uL (0.0-0.7) Basophils # (Auto) 0.0 x10^3/uL (0.0-0.2) Sodium Level 142 mmol/L (136-145) Potassium Level 4.5 mmol/L (3.5-5.1) Chloride Level 105 mmol/L (98-107) Carbon Dioxide Level 28 mmol/L (21-32) Anion Gap 9 (6-14) Blood Urea Nitrogen 25 mg/dL (7-20) H Creatinine 0.9 mg/dL (0.6-1.0) Estimated GFR (Cockcroft-Gault) 59.7 BUN/Creatinine Ratio 28 (6-20) H Glucose Level 114 mg/dL (70-99) H Calcium Level 8.6 mg/dL (8.5-10.1) Total Bilirubin 0.2 mg/dL (0.2-1.0) Aspartate Amino Transferase (AST) 22 U/L (15-37) Alanine Aminotransferase (ALT) 33 U/L (14-59) Alkaline Phosphatase 125 U/L (46-116) H Total Protein 7.0 g/dL (6.4-8.2) Albumin 2.4 g/dL (3.4-5.0) L Albumin/Globulin Ratio 0.5 (1.0-1.7) L Current Medications: I have reviewed the current psychotropics carefully including drug interactions. Risk benefit ratio favors no change other than as noted in my dictated progress note. Diagnosis: Problems: (1) Impulse control disorder, unspecified (2) Anxiety disorder, unspecified (3) Dementia, vascular, with depression (4) Dementia, vascular, with delusions (5) Dementia in Alzheimer's disease with depression (6) Dementia in Alzheimer's disease with delusions (7) Dementia of the Alzheimer's type with early onset with behavioral disturbance (8) Major neurocognitive disorder SOO BAIRES MD Oct 14, 2021 07:05
--- NOTE | 2021-10-14 07:33 | PDOC ---
Exam Note: [place] Note: This note is a late entry for 10/13/2021 covers elements not covered in my initial note. Subjective: The patient was seen individually on 10/13/2021, discussed and reviewed the chart with Nahomi TANG. The patient slept 7 hours previous night. Overall she has not been agitated, aggressive, or disruptive. Review of Systems: Ambulation impaired, in wheelchair. No CV, , pulmonary, eye system symptoms on review. Mental Status Exam: The patient is oriented to herself. As before she was quite animated, verbal, interactive, but disorganised. Speech coherent. Abstraction fair. Attention span short. Language function intact. Mood and affect anxious, aggressive. Laboratory Data: Reviewed. Impression: Major neurocognitive disorder Alzheimer, vascular, with delusions, depression, behavioral disturbance. Anxiety disorder unspecified. Impulse control disorder unspecified. Plan: Continue current psychotropics. Adjust further as clinically indicated. Assessment: Vital Signs/I&O: Vital Signs Date Time Temp Pulse Resp B/P (MAP) Pulse Ox O2 Delivery O2 Flow Rate FiO2 10/14/21 05:39 98.0 72 16 117/70 (86) 95 Room Air 10/13/21 05:43 2.0 I & O 10/13/21 10/13/21 10/14/21 15:00 23:00 07:00 Intake Total 800 ml 400 ml Balance 800 ml 400 ml Labs: Laboratory Tests Test 10/13/21 07:55 10/14/21 07:27 White Blood Count 8.0 x10^3/uL (4.0-11.0) Red Blood Count 3.98 x10^6/uL (3.50-5.40) Hemoglobin 10.3 g/dL (12.0-15.5) L Hematocrit 32.9 % (36.0-47.0) L Mean Corpuscular Volume 83 fL (79-100) Mean Corpuscular Hemoglobin 26 pg (25-35) Mean Corpuscular Hemoglobin Concent 31 g/dL (31-37) Red Cell Distribution Width 16.0 % (11.5-14.5) H Platelet Count 229 x10^3/uL (140-400) Neutrophils (%) (Auto) 57 % (31-73) Lymphocytes (%) (Auto) 34 % (24-48) Monocytes (%) (Auto) 5 % (0-9) Eosinophils (%) (Auto) 3 % (0-3) Basophils (%) (Auto) 1 % (0-3) Neutrophils # (Auto) 4.5 x10^3uL (1.8-7.7) Lymphocytes # (Auto) 2.7 x10^3/uL (1.0-4.8) Monocytes # (Auto) 0.4 x10^3/uL (0.0-1.1) Eosinophils # (Auto) 0.3 x10^3/uL (0.0-0.7) Basophils # (Auto) 0.0 x10^3/uL (0.0-0.2) Sodium Level 142 mmol/L (136-145) Potassium Level 4.5 mmol/L (3.5-5.1) Chloride Level 105 mmol/L (98-107) Carbon Dioxide Level 28 mmol/L (21-32) Anion Gap 9 (6-14) Blood Urea Nitrogen 25 mg/dL (7-20) H Creatinine 0.9 mg/dL (0.6-1.0) Estimated GFR (Cockcroft-Gault) 59.7 BUN/Creatinine Ratio 28 (6-20) H Glucose Level 114 mg/dL (70-99) H Calcium Level 8.6 mg/dL (8.5-10.1) Total Bilirubin 0.2 mg/dL (0.2-1.0) Aspartate Amino Transferase (AST) 22 U/L (15-37) Alanine Aminotransferase (ALT) 33 U/L (14-59) Alkaline Phosphatase 125 U/L (46-116) H Total Protein 7.0 g/dL (6.4-8.2) Albumin 2.4 g/dL (3.4-5.0) L Albumin/Globulin Ratio 0.5 (1.0-1.7) L Glucose (Fingerstick) 90 mg/dL (70-99) Current Medications: I have reviewed the current psychotropics carefully including drug interactions. Risk benefit ratio favors no change other than as noted in my dictated progress note. Diagnosis: Problems: (1) Impulse control disorder, unspecified (2) Anxiety disorder, unspecified (3) Dementia, vascular, with depression (4) Dementia, vascular, with delusions (5) Dementia in Alzheimer's disease with depression (6) Dementia in Alzheimer's disease with delusions (7) Dementia of the Alzheimer's type with early onset with behavioral disturbance (8) Major neurocognitive disorder SOO BAIRES MD Oct 14, 2021 07:33
[2021-10-14] MEDS: metFORMIN 500 MG TABLET PO SCH ×2 (08:00→17:03)
[2021-10-14] MEDS: QUEtiapine 25 MG TABLET. PO SCH ×2 (08:00→20:17)
--- NOTE | 2021-10-14 14:09 | TX PLAN ---
Interdisciplinary Tx Plan Admission Information Sep 27, 2021 at 12:55 Legal Status (on Admission): Voluntary DPOA/Guardian Name: Lucille NieceOscar Bergman Contact Other Contact Name: Jayna Sheikh Contact Verified Code Status: Full Code Allergies: Coded Allergies: No Known Drug Allergies (Unverified , 07/16/21) Diagnoses Primary Diagnosis: 1. 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 Mood disorder, unspecified. Reasons for Admission: Aggressive, Delusions, Agitated, Sig. Change Sleep, Hallucinations, Combative Problem in Patient's Words: Per pt great niece/DPOAАнна who was raised mostly by pt, pt has had a noticable decline over the past year and particularlly over the past couple of months. Up until a year ago, pt was living in her independant living apartment and out of the [place], she moved to [place], [place] and bought a house that she paid winn for. She was then found to be living in very poor conditions without running water and no utilities and overall unable to care for herself. She had a few past hospitalizations but then release to herself and then would be found again living in unsafe conditions. At one point, pt drove herself to Анна's home, but refused to come in to stay, and would only stay in her car. Анна was finally successful at gaining DPOA during one of pt's hospitalizations and also in getting her license revoked. During the past year, family and staff during the different hospitalizations discovered pt was having hallucinations and delusions that seem to continue. Анна is concerned if pt is struggling with onset of dementia or if pt is truly experiencing psychosis and might clear in the future with medication management. Additional Admission Comments: Per intake record, pt refusing UA and cath, sexually inappropriate comments to staff, not sleeping for 30 hours, combative to staff, delusions,auditory hallucinations, verbally aggressive, screaming, cussing, disruptive. Problems Active Problems: Agitation Inactive Problems: Pt has shown improvements. She is less aggressive, delusional, and combative. She, also, is sleeping better. Pt Strengths/Limitations Ability for [place]: Poor Cognitive Functioning/Ability: Poor Communication Skills/Ability: Fair Financial Resources: Fair Insight/Judgement: Poor Intellectual Ability: Fair Physical Health: Poor Social Skills: Fair Stability in Family: Fair Stability in School/Work: Fair Verbal Skills: Fair Discharge Criteria Discharge Criteria: Adequate arrangements @DC, Verbal commit med comply, Improved behavior, Improved mood/thought Other Discharge Comments: None at this time. Preliminary Discharge Plan Preliminary DC Plan: Placement Needed Special Precautions Special Precautions: Agitation/Assault, Swallowing/Choking Fall Risk: High Other Precautions (specify): Pt has a history of falls. Initial D/C Plan Pt will need placement at time of discharge. Identified Discharge Needs: None at this time. Currently Utilized Resources Currently Utilized Resources/P: Great Niece/DPOA-Анна Jj has hired and associate attorney to assist with guardianship. Prior to Admission: PCP-Dr. Quang Raza Facility-[facility]; contact-CHANA Cruz *Note-Pt will not return to [facility] Referrals Community Resources: None known at this time. Identified Problems/Hx/Goals Objectives/Short-Term Goals Short Term Goals: Control abnormal behavior, Dec. Aggression, Dec. Anxiety/Panic, Dec. Hallucination/Delus, Dec. Outbursts, Medication Stabilization, Monitor Med Effects, Prevent Deterioration, Promote Coping Skill Short Term Goals in Patient's: Assist with proper diagnosis of psychosis vs dementia. Interventions/Frequency Staff Interventions/Frequency&: Psychiatry to assess pt three times per week for medication management. Nursing to assess behaviors, monitor medications, and complete 15 minute checks daily. Social work to see pt at least two times weekly to aid in return to placement. Activities to encourage pt to participate in group activities daily. 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 Education: According to DPOA, pt received a high school diploma and she had some technical college. Community Follow-up PCP Community Provider/Family Inpu: Pt great nigregorio/Анна LANG, provided pt history for the development of the treatment plan. Анна is available for further information should it be needed. Treatment Plan Explained Patient/Emergency Management Consultant had this treatment plan explained to him/her as indicated by the signature below and has been given the opportunity to ask questions and make suggestions: Date: Patient/Emergency Management Consultant Signature: Status Update Update Pt has been eating 85% of her meals and averaging 6.5 hours of sleep at night. Pt continues to like taking naps throughout the day. She is is mostly calm and pleasant. She will holler out for help when she needs it. Pt is social with staff and other pts. Pt continues to feed herself and is cooperative with her cares. Pt family had court for conservatorship. Pt niece stated that she was denied the galindo because her credit report showed her bankruptcy case that was 11 years ago. SW then reached out to [place] [employer] and spoke with Nikia Young for advise. Nikia suggested to have pt sign a release of infor mation for Анна to have access to financial statements/matters. Nikia noted that the value of pt property could possibly be obtained by going to the ring [employer] website. Nikia stated if we had to, we could eventually call the [facility] hotline for self-neglect. Nikia did state that pt DPOA/niece, Анна, could try to appeal to the court to overturn their galindo denial decision. Nikia, however, was not hopeful that would work due to the case being filed in [facility] and them having a new technician semiconductor development. LINDA BLACKWELL Oct 14, 2021 14:09
[2021-10-14 15:52] VITALS: BP 136/65
[2021-10-14] MEDS: traZODone 50 MG TABLET. PO SCH (20:16)
[2021-10-14] MEDS: MELATONIN 3 MG TABLET PO SCH (20:16)
[2021-10-14] MEDS: SERTRALINE 50 MG TABLET. PO SCH (20:17)
[2021-10-14] MEDS: MIRTAZAPINE 15 MG TABLET PO SCH (20:17)
--- NOTE | 2021-10-14 21:17 | PDOC ---
Exam Note: Troy Note: Please also refer to the separate dictated note~for this date of service dictated separately.~Patient seen individually. Discussed the patient with Nursing staff reviewed the chart.~Reviewed interim history and current functioning. Reviewed vital signs,~Labs/ Radiology~and current medications noted below. Continue current treatment with the changes noted in the dictated addendum note Assessment: Vital Signs/I&O: Vital Signs Date Time Temp Pulse Resp B/P (MAP) Pulse Ox O2 Delivery O2 Flow Rate FiO2 10/14/21 15:52 97.8 69 22 136/65 (88) 96 10/14/21 05:39 Room Air 10/13/21 05:43 2.0 I & O 10/13/21 10/13/21 10/14/21 15:00 23:00 07:00 Intake Total 800 ml 400 ml Balance 800 ml 400 ml Labs: Laboratory Tests Test 10/14/21 07:27 Glucose (Fingerstick) 90 mg/dL (70-99) Current Medications: Meds: Laboratory Tests Test 10/14/21 07:27 Glucose (Fingerstick) 90 mg/dL Current Medications Medications (Trade) Dose Ordered Sig/Richard Route PRN Reason Start Time Stop Time Status Last Admin Dose Admin Acetaminophen (Tylenol) 650 mg PRN Q6HRS PRN PO MILD PAIN / TEMP > 100.3'F 09/27/21 15:00 10/11/21 19:54 Mirtazapine (Remeron) 15 mg QHS PO 09/27/21 21:00 10/14/21 20:17 Olanzapine (ZyPREXA ZYDIS) 2.5 mg PRN Q2HRS PRN PO ANXIETY / AGITATION 09/27/21 15:00 10/11/21 19:52 Quetiapine Fumarate (SEROquel) 25 mg BID PO 09/27/21 21:00 10/14/21 20:17 Sertraline HCl (Zoloft) 50 mg HS PO 09/27/21 21:00 10/14/21 20:17 Trazodone HCl (Desyrel) 25 mg HS PO 09/27/21 21:00 10/05/21 18:14 DC 10/04/21 20:06 Melatonin (Melatonin) 3 mg HS PO 09/27/21 21:00 10/14/21 20:16 Metformin HCl (Glucophage) 500 mg BIDWMEALS PO 09/29/21 17:00 10/14/21 17:03 Nystatin (Nystop) 15 sulma STK-MED ONCE TP 10/04/21 09:36 10/04/21 09:36 DC Trazodone HCl (Desyrel) 50 mg HS PO 10/05/21 21:00 10/14/21 20:16 Trazodone HCl (Desyrel) 50 mg PRN QHS PRN PO INSOMNIA 10/05/21 18:15 10/12/21 01:54 I have reviewed the current psychotropics carefully including drug interactions. Risk benefit ratio favors no change other than as noted in my dictated progress note. Diagnosis: Problems: (1) Impulse control disorder, unspecified (2) Anxiety disorder, unspecified (3) Dementia, vascular, with depression (4) Dementia, vascular, with delusions (5) Dementia in Alzheimer's disease with depression (6) Dementia in Alzheimer's disease with delusions (7) Dementia of the Alzheimer's type with early onset with behavioral disturbance (8) Major neurocognitive disorder SOO BAIRES MD Oct 14, 2021 21:17
[2021-10-14] MEDS: ACETAMINOPHEN 325 MG TABLET PO PRN (21:36)
[2021-10-14] MEDS: traZODone 50 MG TABLET. PO PRN (21:36)
[2021-10-15 06:07] VITALS: BP 142/75
[2021-10-15] MEDS: QUEtiapine 25 MG TABLET. PO SCH ×2 (07:54→19:34)
[2021-10-15] MEDS: metFORMIN 500 MG TABLET PO SCH ×2 (07:54→17:07)
[2021-10-15 16:07] VITALS: BP 146/75
[2021-10-15] MEDS: MELATONIN 3 MG TABLET PO SCH (19:33)
[2021-10-15] MEDS: MIRTAZAPINE 15 MG TABLET PO SCH (19:33)
[2021-10-15] MEDS: traZODone 50 MG TABLET. PO SCH (19:34)
[2021-10-15] MEDS: SERTRALINE 50 MG TABLET. PO SCH (19:34)
--- NOTE | 2021-10-15 21:24 | PDOC ---
Exam Note: Troy Note: Please also refer to the separate dictated note~for this date of service dictated separately.~Patient seen individually. Discussed the patient with Nursing staff reviewed the chart.~Reviewed interim history and current functioning. Reviewed vital signs,~Labs/ Radiology~and current medications noted below. Continue current treatment with the changes noted in the dictated addendum note Assessment: Vital Signs/I&O: Vital Signs Date Time Temp Pulse Resp B/P (MAP) Pulse Ox O2 Delivery O2 Flow Rate FiO2 10/15/21 16:07 98.1 72 18 146/75 (98) 96 10/14/21 05:39 Room Air 10/13/21 05:43 2.0 I & O 10/14/21 10/14/21 10/15/21 15:00 23:00 07:00 Intake Total 720 ml 320 ml Balance 720 ml 320 ml Labs: Laboratory Tests Test 10/15/21 07:24 Glucose (Fingerstick) 111 mg/dL (70-99) H Current Medications: Meds: Laboratory Tests Test 10/15/21 07:24 Glucose (Fingerstick) 111 mg/dL Current Medications Medications (Trade) Dose Ordered Sig/Richard Route PRN Reason Start Time Stop Time Status Last Admin Dose Admin Acetaminophen (Tylenol) 650 mg PRN Q6HRS PRN PO MILD PAIN / TEMP > 100.3'F 09/27/21 15:00 10/14/21 21:36 Mirtazapine (Remeron) 15 mg QHS PO 09/27/21 21:00 10/15/21 19:33 Olanzapine (ZyPREXA ZYDIS) 2.5 mg PRN Q2HRS PRN PO ANXIETY / AGITATION 09/27/21 15:00 10/14/21 21:36 Quetiapine Fumarate (SEROquel) 25 mg BID PO 09/27/21 21:00 10/15/21 19:34 Sertraline HCl (Zoloft) 50 mg HS PO 09/27/21 21:00 10/15/21 19:34 Trazodone HCl (Desyrel) 25 mg HS PO 09/27/21 21:00 10/05/21 18:14 DC 10/04/21 20:06 Melatonin (Melatonin) 3 mg HS PO 09/27/21 21:00 10/15/21 19:33 Metformin HCl (Glucophage) 500 mg BIDWMEALS PO 09/29/21 17:00 10/15/21 17:07 Nystatin (Nystop) 15 sulma STK-MED ONCE TP 10/04/21 09:36 10/04/21 09:36 DC Trazodone HCl (Desyrel) 50 mg HS PO 10/05/21 21:00 10/15/21 19:34 Trazodone HCl (Desyrel) 50 mg PRN QHS PRN PO INSOMNIA 10/05/21 18:15 10/14/21 21:36 I have reviewed the current psychotropics carefully including drug interactions. Risk benefit ratio favors no change other than as noted in my dictated progress note. Diagnosis: Problems: (1) Impulse control disorder, unspecified (2) Anxiety disorder, unspecified (3) Dementia, vascular, with depression (4) Dementia, vascular, with delusions (5) Dementia in Alzheimer's disease with depression (6) Dementia in Alzheimer's disease with delusions (7) Dementia of the Alzheimer's type with early onset with behavioral disturbance (8) Major neurocognitive disorder SOO BAIRES MD Oct 15, 2021 21:24
[2021-10-16 06:12] VITALS: BP 129/78
--- NOTE | 2021-10-16 07:30 | PDOC ---
Exam Note: [place] Note: This note is a late entry for 10/14/2021 covers elements not covered in my initial note. Subjective: The patient was reviewed at treatment team meeting in the morning on 10/14/2021 with Katherine Moreno, Eliza Muniz, and Stephani Curry (psychiatric social worker), Martina, activity therapy, Liya TANG, discussed and reviewed the chart. Discussed progress, psychotropic medications and diagnoses. The patient slept 6-3/4 hours previous night. She remains confused. She has attended 4 activity groups. She frequently listens to samaritan music on the [email or web address] and seems to enjoy this. Yelling has been less. I also met with her in the evening. Review of Systems: Ambulation impaired, in wheelchair. No CV, , pulmonary, eye system symptoms on review. Mental Status Exam: The patient is oriented to herself. Speech coherent, rapid at times, less yelling. Abstraction fair. Computation impaired. Language function intact. Short-term memory is impaired. No suicidal or homicidal ideation. Laboratory Data: Reviewed. Impression: Major neurocognitive disorder Alzheimer, vascular, with delusions, depression, behavioral disturbance. Anxiety disorder unspecified. Impulse control disorder unspecified. Plan: Continue current psychotropics. Adjust further as clinically indicated. Assessment: Vital Signs/I&O: Vital Signs Date Time Temp Pulse Resp B/P (MAP) Pulse Ox O2 Delivery O2 Flow Rate FiO2 10/16/21 06:12 98.0 83 18 129/78 (95) 93 10/14/21 05:39 Room Air 10/13/21 05:43 2.0 I & O 10/15/21 10/15/21 10/16/21 15:00 23:00 07:00 Intake Total 860 ml 480 ml Balance 860 ml 480 ml Current Medications: I have reviewed the current psychotropics carefully including drug interactions. Risk benefit ratio favors no change other than as noted in my dictated progress note. Diagnosis: Problems: (1) Impulse control disorder, unspecified (2) Anxiety disorder, unspecified (3) Dementia, vascular, with depression (4) Dementia, vascular, with delusions (5) Dementia in Alzheimer's disease with depression (6) Dementia in Alzheimer's disease with delusions (7) Dementia of the Alzheimer's type with early onset with behavioral disturbance (8) Major neurocognitive disorder SOO BAIRES MD Oct 16, 2021 07:30
--- NOTE | 2021-10-16 07:46 | PDOC ---
Exam Note: Troy Note: This note is a late entry for 10/15/2021 covers elements not covered in my initial note. Subjective: The patient was seen individually on 10/15/2021, discussed and reviewed the chart with Nikia TANG. The patient slept 4 hours previous night. She has been awake, alert, less anxious, less yelling, quite hyperverbal. At one point, she was yelling in her room with another demented patient had entered her room, was quite intrusive and this was understandable. Review of Systems: Ambulation impaired, in wheelchair. No CV, , pulmonary, eye system symptoms on review. Mental Status Exam: The patient is oriented to herself. She was quite animated, verbal as i met with her stating someone was stealing her things, seemed a little paranoid but distractible. Speech coherent, rapid at times, less yelling. Abstraction fair. Computation impaired. Language function intact. No suicidal or homicidal ideation. Laboratory Data: Reviewed. Impression: Major neurocognitive disorder Alzheimer, vascular, with delusions, depression, behavioral disturbance. Anxiety disorder unspecified. Impulse control disorder unspecified. Plan: Continue current psychotropics. Adjust further as clinically indicated. Assessment: Vital Signs/I&O: Vital Signs Date Time Temp Pulse Resp B/P (MAP) Pulse Ox O2 Delivery O2 Flow Rate FiO2 10/16/21 06:12 98.0 83 18 129/78 (95) 93 10/14/21 05:39 Room Air 10/13/21 05:43 2.0 I & O 10/15/21 10/15/21 10/16/21 15:00 23:00 07:00 Intake Total 860 ml 480 ml Balance 860 ml 480 ml Labs: Laboratory Tests Test 10/16/21 07:34 Glucose (Fingerstick) 107 mg/dL (70-99) H Current Medications: I have reviewed the current psychotropics carefully including drug interactions. Risk benefit ratio favors no change other than as noted in my dictated progress note. 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
[2021-10-16] MEDS: metFORMIN 500 MG TABLET PO SCH ×2 (08:01→16:55)
[2021-10-16] MEDS: QUEtiapine 25 MG TABLET. PO SCH ×2 (08:01→20:05)
[2021-10-16 15:39] VITALS: BP 107/70
[2021-10-16] MEDS: MELATONIN 3 MG TABLET PO SCH (20:04)
[2021-10-16] MEDS: MIRTAZAPINE 15 MG TABLET PO SCH (20:04)
[2021-10-16] MEDS: traZODone 50 MG TABLET. PO SCH (20:05)
[2021-10-16] MEDS: SERTRALINE 50 MG TABLET. PO SCH (20:05)
--- NOTE | 2021-10-16 21:21 | PDOC ---
Exam Note: [place] Note: Please also refer to the separate dictated note~for this date of service dictated separately.~Patient seen individually. Discussed the patient with Nursing staff reviewed the chart.~Reviewed interim history and current functioning. Reviewed vital signs,~Labs/ Radiology~and current medications noted below. Continue current treatment with the changes noted in the dictated addendum note Assessment: Vital Signs/I&O: Vital Signs Date Time Temp Pulse Resp B/P (MAP) Pulse Ox O2 Delivery O2 Flow Rate FiO2 10/16/21 15:39 97.3 90 20 107/70 (82) 98 Room Air 10/13/21 05:43 2.0 I & O 10/15/21 10/15/21 10/16/21 15:00 23:00 07:00 Intake Total 860 ml 480 ml Balance 860 ml 480 ml Labs: Laboratory Tests Test 10/16/21 07:34 Glucose (Fingerstick) 107 mg/dL (70-99) H Current Medications: Meds: Laboratory Tests Test 10/16/21 07:34 Glucose (Fingerstick) 107 mg/dL Current Medications Medications (Trade) Dose Ordered Sig/Richard Route PRN Reason Start Time Stop Time Status Last Admin Dose Admin Acetaminophen (Tylenol) 650 mg PRN Q6HRS PRN PO MILD PAIN / TEMP > 100.3'F 09/27/21 15:00 10/14/21 21:36 Mirtazapine (Remeron) 15 mg QHS PO 09/27/21 21:00 10/16/21 20:04 Olanzapine (ZyPREXA ZYDIS) 2.5 mg PRN Q2HRS PRN PO ANXIETY / AGITATION 09/27/21 15:00 10/14/21 21:36 Quetiapine Fumarate (SEROquel) 25 mg BID PO 09/27/21 21:00 10/16/21 20:05 Sertraline HCl (Zoloft) 50 mg HS PO 09/27/21 21:00 10/16/21 20:05 Trazodone HCl (Desyrel) 25 mg HS PO 09/27/21 21:00 10/05/21 18:14 DC 10/04/21 20:06 Melatonin (Melatonin) 3 mg HS PO 09/27/21 21:00 10/16/21 20:04 Metformin HCl (Glucophage) 500 mg BIDWMEALS PO 09/29/21 17:00 10/16/21 16:55 Nystatin (Nystop) 15 sulma STK-MED ONCE TP 10/04/21 09:36 10/04/21 09:36 DC Trazodone HCl (Desyrel) 50 mg HS PO 10/05/21 21:00 10/16/21 20:05 Trazodone HCl (Desyrel) 50 mg PRN QHS PRN PO INSOMNIA 10/05/21 18:15 10/14/21 21:36 I have reviewed the current psychotropics carefully including drug interactions. Risk benefit ratio favors no change other than as noted in my dictated progress note. 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
[2021-10-17 05:57] VITALS: BP 162/80
[2021-10-17] MEDS: QUEtiapine 25 MG TABLET. PO SCH ×2 (08:19→20:09)
[2021-10-17] MEDS: metFORMIN 500 MG TABLET PO SCH ×2 (08:19→16:57)
[2021-10-17 15:39] VITALS: BP 153/78
[2021-10-17] MEDS: MELATONIN 3 MG TABLET PO SCH (20:09)
[2021-10-17] MEDS: traZODone 50 MG TABLET. PO SCH (20:09)
[2021-10-17] MEDS: SERTRALINE 50 MG TABLET. PO SCH (20:09)
[2021-10-17] MEDS: MIRTAZAPINE 15 MG TABLET PO SCH (20:09)
--- NOTE | 2021-10-17 21:47 | PDOC ---
Exam Note: Troy Note: Please also refer to the separate dictated note~for this date of service dictated separately.~Patient seen individually. Discussed the patient with Nursing staff reviewed the chart.~Reviewed interim history and current functioning. Reviewed vital signs,~Labs/ Radiology~and current medications noted below. Continue current treatment with the changes noted in the dictated addendum note Assessment: Vital Signs/I&O: Vital Signs Date Time Temp Pulse Resp B/P (MAP) Pulse Ox O2 Delivery O2 Flow Rate FiO2 10/17/21 15:39 97.7 75 20 153/78 (103) 98 10/16/21 15:39 Room Air 10/13/21 05:43 2.0 I & O 10/16/21 10/16/21 10/17/21 15:00 23:00 07:00 Intake Total 840 ml 480 ml Balance 840 ml 480 ml Labs: Laboratory Tests Test 10/17/21 07:50 Glucose (Fingerstick) 124 mg/dL (70-99) H Current Medications: Meds: Laboratory Tests Test 10/17/21 07:50 Glucose (Fingerstick) 124 mg/dL Current Medications Medications (Trade) Dose Ordered Sig/Richard Route PRN Reason Start Time Stop Time Status Last Admin Dose Admin Acetaminophen (Tylenol) 650 mg PRN Q6HRS PRN PO MILD PAIN / TEMP > 100.3'F 09/27/21 15:00 10/14/21 21:36 Mirtazapine (Remeron) 15 mg QHS PO 09/27/21 21:00 10/17/21 20:09 Olanzapine (ZyPREXA ZYDIS) 2.5 mg PRN Q2HRS PRN PO ANXIETY / AGITATION 09/27/21 15:00 10/14/21 21:36 Quetiapine Fumarate (SEROquel) 25 mg BID PO 09/27/21 21:00 10/17/21 20:09 Sertraline HCl (Zoloft) 50 mg HS PO 09/27/21 21:00 10/17/21 20:09 Trazodone HCl (Desyrel) 25 mg HS PO 09/27/21 21:00 10/05/21 18:14 DC 10/04/21 20:06 Melatonin (Melatonin) 3 mg HS PO 09/27/21 21:00 2/10/22 20:09 Metformin HCl (Glucophage) 500 mg BIDWMEALS PO 09/29/21 17:00 10/17/21 16:57 Nystatin (Nystop) 15 sulma STK-MED ONCE TP 10/04/21 09:36 10/04/21 09:36 DC Trazodone HCl (Desyrel) 50 mg HS PO 10/05/21 21:00 10/17/21 20:09 Trazodone HCl (Desyrel) 50 mg PRN QHS PRN PO INSOMNIA 10/05/21 18:15 10/14/21 21:36 I have reviewed the current psychotropics carefully including drug interactions. Risk benefit ratio favors no change other than as noted in my dictated progress note. Diagnosis: Problems: (1) Impulse control disorder, unspecified (2) Anxiety disorder, unspecified (3) Dementia, vascular, with depression (4) Dementia, vascular, with delusions (5) Dementia in Alzheimer's disease with depression (6) Dementia in Alzheimer's disease with delusions (7) Dementia of the Alzheimer's type with early onset with behavioral disturbance (8) Major neurocognitive disorder SOO BAIRES MD Oct 17, 2021 21:47
[2021-10-18 05:47] VITALS: BP 121/67
[2021-10-18] MEDS: QUEtiapine 25 MG TABLET. PO SCH ×2 (08:42→19:52)
[2021-10-18] MEDS: metFORMIN 500 MG TABLET PO SCH ×2 (08:42→17:16)
[2021-10-18 15:42] VITALS: BP 126/72
[2021-10-18] MEDS: SERTRALINE 50 MG TABLET. PO SCH (19:52)
[2021-10-18] MEDS: traZODone 50 MG TABLET. PO SCH (19:52)
[2021-10-18] MEDS: MELATONIN 3 MG TABLET PO SCH (19:52)
[2021-10-18] MEDS: MIRTAZAPINE 15 MG TABLET PO SCH (19:52)
[2021-10-18] MEDS: IPRATROPIUM/ALBUTEROL 20/100mcg/INH INHALER. INH SCH (19:52)
--- NOTE | 2021-10-18 20:51 | PDOC ---
Exam Note: Troy Note: Please also refer to the separate dictated note~for this date of service dictated separately.~Patient seen individually. Discussed the patient with Nursing staff reviewed the chart.~Reviewed interim history and current functioning. Reviewed vital signs,~Labs/ Radiology~and current medications noted below. Continue current treatment with the changes noted in the dictated addendum note Assessment: Vital Signs/I&O: Vital Signs Date Time Temp Pulse Resp B/P (MAP) Pulse Ox O2 Delivery O2 Flow Rate FiO2 10/18/21 15:42 97.7 75 19 126/72 (90) 98 Nasal Cannula 2.0 I & O 10/17/21 10/17/21 10/18/21 15:00 23:00 07:00 Intake Total 960 ml 440 ml Balance 960 ml 440 ml Labs: Laboratory Tests Test 10/18/21 07:36 Glucose (Fingerstick) 125 mg/dL (70-99) H Current Medications: Meds: Laboratory Tests Test 10/18/21 07:36 Glucose (Fingerstick) 125 mg/dL Current Medications Medications (Trade) Dose Ordered Sig/Richard Route PRN Reason Start Time Stop Time Status Last Admin Dose Admin Acetaminophen (Tylenol) 650 mg PRN Q6HRS PRN PO MILD PAIN / TEMP > 100.3'F 09/27/21 15:00 10/14/21 21:36 Mirtazapine (Remeron) 15 mg QHS PO 09/27/21 21:00 10/18/21 19:52 Olanzapine (ZyPREXA ZYDIS) 2.5 mg PRN Q2HRS PRN PO ANXIETY / AGITATION 09/27/21 15:00 10/14/21 21:36 Quetiapine Fumarate (SEROquel) 25 mg BID PO 09/27/21 21:00 10/18/21 19:52 Sertraline HCl (Zoloft) 50 mg HS PO 09/27/21 21:00 10/18/21 19:52 Trazodone HCl (Desyrel) 25 mg HS PO 09/27/21 21:00 10/05/21 18:14 DC 10/04/21 20:06 Melatonin (Melatonin) 3 mg HS PO 09/27/21 21:00 10/18/21 19:52 Metformin HCl (Glucophage) 500 mg BIDWMEALS PO 09/29/21 17:00 10/18/21 17:16 Nystatin (Nystop) 15 sulma STK-MED ONCE TP 10/04/21 09:36 10/04/21 09:36 DC Trazodone HCl (Desyrel) 50 mg HS PO 10/05/21 21:00 10/18/21 19:52 Trazodone HCl (Desyrel) 50 mg PRN QHS PRN PO INSOMNIA 10/05/21 18:15 10/14/21 21:36 Albuterol/ Ipratropium (Combivent Respimat 20-100 Mcg) 1 puff RTQID INH 10/18/21 20:00 I have reviewed the current psychotropics carefully including drug interactions. Risk benefit ratio favors no change other than as noted in my dictated progress note. Diagnosis: Problems: (1) Impulse control disorder, unspecified (2) Anxiety disorder, unspecified (3) Dementia, vascular, with depression (4) Dementia, vascular, with delusions (5) Dementia in Alzheimer's disease with depression (6) Dementia in Alzheimer's disease with delusions (7) Dementia of the Alzheimer's type with early onset with behavioral disturbance (8) Major neurocognitive disorder SOO BAIRES MD Oct 18, 2021 20:51
[2021-10-18 21:37] LABS: BASO % 0 % (0-3); EOS # 0.3 x10^3/uL (0.0-0.7); EOS % 4 % (0-3); HEMATOCRIT 28.2 % (36.0-47.0); LYMPH # 2.7 x10^3/uL (1.0-4.8); LYMPH % 35 % (24-48); MEAN CORPUSCULAR HEMOGLOBIN 27 pg (25-35); MEAN CORPUSCULAR HGB CONC 32 g/dL (31-37); MEAN CORPUSCULAR VOLUME 83 fL (79-100); MONO # 0.5 x10^3/uL (0.0-1.1); MONO % 6 % (0-9); NEUT # 4.3 x10^3uL (1.8-7.7); NEUT % 55 % (31-73); PLATELET COUNT 169 x10^3/uL (140-400); RED CELL DISTRIBUTION WIDTH 16.7 % (11.5-14.5); WHITE BLOOD COUNT 7.9 x10^3/uL (4.0-11.0)
[2021-10-18 21:59] LABS: ALBUMIN 2.3 g/dL (3.4-5.0); ALBUMIN/GLOBULIN RATIO 0.6 (1.0-1.7); CALCIUM 8.2 mg/dL (8.5-10.1); CREATININE 1.1 mg/dL (0.6-1.0); GFR 47.3; POTASSIUM 4.5 mmol/L (3.5-5.1); TOTAL BILIRUBIN 0.1 mg/dL (0.2-1.0); TOTAL PROTEIN 6.3 g/dL (6.4-8.2)
[2021-10-18] MEDS: traZODone 50 MG TABLET. PO PRN (23:33)
--- NOTE | 2021-10-18 23:44 | RAD ---
XR CHEST 1V Clinical History: Reason: increased wheezing / Spl. Instructions: / History: Technique: AP view of the chest was obtained at 10/18/2021 7:02 PM. Comparison: September 25, 2021. Findings: The cardiomediastinal silhouette is normal. The pulmonary vasculature is normal. There is reticular o pacities of the lungs and patchy opacity in the lower left lung. Impression: Worsening bilateral infiltrates likely atypical pneumonia. Electronically signed by: Chivo Ga III, MD (10/18/2021 11:42 PM) [facility]
[2021-10-19 06:18] VITALS: BP 107/49
[2021-10-19] MEDS: metFORMIN 500 MG TABLET PO SCH ×2 (07:51→16:56)
[2021-10-19] MEDS: IPRATROPIUM/ALBUTEROL 20/100mcg/INH INHALER. INH SCH ×4 (07:51→20:00)
[2021-10-19] MEDS: QUEtiapine 25 MG TABLET. PO SCH ×2 (07:51→16:55)
--- NOTE | 2021-10-19 08:21 | PDOC ---
Exam Note: [place] Note: This note is a late entry for 10/17/2021 covers elements not covered in my initial note. Subjective: The patient was seen individually on 10/17/2021, discussed and reviewed the chart with Gloria TANG. I met with her in her room. She has been yelling less, less anxious. Review of Systems: Ambulation impaired, in wheelchair. No CV, , pulmonary, eye system symptoms on review. Mental Status Exam: The patient is oriented to herself. Speech coherent, rapid at times, yelling. Abstraction fair. Computation impaired. Language function intact. No suicidal or homicidal ideation. Laboratory Data: Reviewed. Impression: Major neurocognitive disorder Alzheimer, vascular, with delusions, depression, behavioral disturbance. Anxiety disorder unspecified. Impulse control disorder unspecified. Plan: Continue current psychotropics. Adjust further as clinically indicated. Assessment: Vital Signs/I&O: Vital Signs Date Time Temp Pulse Resp B/P (MAP) Pulse Ox O2 Delivery O2 Flow Rate FiO2 10/19/21 06:18 97.2 76 18 107/49 (68) 95 10/18/21 15:42 Nasal Cannula 2.0 I & O 10/18/21 10/18/21 10/19/21 15:00 23:00 07:00 Intake Total 1240 ml 600 ml Balance 1240 ml 600 ml Labs: Laboratory Tests Test 10/18/21 21:32 10/19/21 07:42 White Blood Count 7.9 x10^3/uL (4.0-11.0) Red Blood Count 3.40 x10^6/uL (3.50-5.40) L Hemoglobin 9.0 g/dL (12.0-15.5) L Hematocrit 28.2 % (36.0-47.0) L Mean Corpuscular Volume 83 fL (79-100) Mean Corpuscular Hemoglobin 27 pg (25-35) Mean Corpuscular Hemoglobin Concent 32 g/dL (31-37) Red Cell Distribution Width 16.7 % (11.5-14.5) H Platelet Count 169 x10^3/uL (140-400) Neutrophils (%) (Auto) 55 % (31-73) Lymphocytes (%) (Auto) 35 % (24-48) Monocytes (%) (Auto) 6 % (0-9) Eosinophils (%) (Auto) 4 % (0-3) H Basophils (%) (Auto) 0 % (0-3) Neutrophils # (Auto) 4.3 x10^3uL (1.8-7.7) Lymphocytes # (Auto) 2.7 x10^3/uL (1.0-4.8) Monocytes # (Auto) 0.5 x10^3/uL (0.0-1.1) Eosinophils # (Auto) 0.3 x10^3/uL (0.0-0.7) Basophils # (Auto) 0.0 x10^3/uL (0.0-0.2) Sodium Level 144 mmol/L (136-145) Potassium Level 4.5 mmol/L (3.5-5.1) Chloride Level 108 mmol/L (98-107) H Carbon Dioxide Level 31 mmol/L (21-32) Anion Gap 5 (6-14) L Blood Urea Nitrogen 32 mg/dL (7-20) H Creatinine 1.1 mg/dL (0.6-1.0) H Estimated GFR (Cockcroft-Gault) 47.3 BUN/Creatinine Ratio 29 (6-20) H Glucose Level 160 mg/dL (70-99) H Calcium Level 8.2 mg/dL (8.5-10.1) L Total Bilirubin 0.1 mg/dL (0.2-1.0) L Aspartate Amino Transferase (AST) 18 U/L (15-37) Alanine Aminotransferase (ALT) 25 U/L (14-59) Alkaline Phosphatase 121 U/L (46-116) H Troponin I High Sensitivity 11 ng/L (4-50) TA-Lrt-N-Type Natriuretic Peptide 965 pg/mL (0-449) H Total Protein 6.3 g/dL (6.4-8.2) L Albumin 2.3 g/dL (3.4-5.0) L Albumin/Globulin Ratio 0.6 (1.0-1.7) L Glucose (Fingerstick) 104 mg/dL (70-99) H Current Medications: Meds: Current Medications Medications (Trade) Dose Ordered Sig/Richard Route PRN Reason Start Time Stop Time Status Last Admin Dose Admin Albuterol/ Ipratropium (Combivent Respimat 20-100 Mcg) 1 puff RTQID INH 2/11/22 20:00 10/19/21 07:51 I have reviewed the current psychotropics carefully including drug interactions. Risk benefit ratio favors no change other than as noted in my dictated progress note. Diagnosis: Problems: (1) Impulse control disorder, unspecified (2) Anxiety disorder, unspecified (3) Dementia, vascular, with depression (4) Dementia, vascular, with delusions (5) Dementia in Alzheimer's disease with depression (6) Dementia in Alzheimer's disease with delusions (7) Dementia of the Alzheimer's type with early onset with behavioral disturbance (8) Major neurocognitive disorder SOO BAIRES MD Oct 19, 2021 08:21
--- NOTE | 2021-10-19 08:37 | PDOC ---
Exam Note: [place] Note: This note is a late entry for 10/18/2021 covers elements not covered in my initial note. Subjective: The patient was seen individually on 10/18/2021, discussed and reviewed the chart with Ester TANG. I met with her in her room. She slept 8-1/4 hours previous night. She has been increasingly irritable today. She seems to have some expiratory wheezes. She has some trouble taking her medications, somewhat anxious, but not yelling. We will check an EKG since she was noted to have a heart block in the past. I met with her in her room. Review of Systems: Ambulation impaired, in wheelchair. No CV, , pulmonary, eye system symptoms on review. Reliability poor. Mental Status Exam: The patient is oriented to herself. Speech coherent, yelling. Abstraction fair. Computation impaired. Language function intact. No suicidal or homicidal ideation. Laboratory Data: Reviewed. Impression: Major neurocognitive disorder Alzheimer, vascular, with delusions, depression, behavioral disturbance. Anxiety disorder unspecified. Impulse control disorder unspecified. Plan: Continue current psychotropics. Adjust further as clinically indicated. Assessment: Vital Signs/I&O: Vital Signs Date Time Temp Pulse Resp B/P (MAP) Pulse Ox O2 Delivery O2 Flow Rate FiO2 10/19/21 06:18 97.2 76 18 107/49 (68) 95 10/18/21 15:42 Nasal Cannula 2.0 I & O 10/18/21 10/18/21 10/19/21 15:00 23:00 07:00 Intake Total 1240 ml 600 ml Balance 1240 ml 600 ml Labs: Laboratory Tests Test 10/18/21 21:32 10/19/21 07:42 White Blood Count 7.9 x10^3/uL (4.0-11.0) Red Blood Count 3.40 x10^6/uL (3.50-5.40) L Hemoglobin 9.0 g/dL (12.0-15.5) L Hematocrit 28.2 % (36.0-47.0) L Mean Corpuscular Volume 83 fL (79-100) Mean Corpuscular Hemoglobin 27 pg (25-35) Mean Corpuscular Hemoglobin Concent 32 g/dL (31-37) Red Cell Distribution Width 16.7 % (11.5-14.5) H Platelet Count 169 x10^3/uL (140-400) Neutrophils (%) (Auto) 55 % (31-73) Lymphocytes (%) (Auto) 35 % (24-48) Monocytes (%) (Auto) 6 % (0-9) Eosinophils (%) (Auto) 4 % (0-3) H Basophils (%) (Auto) 0 % (0-3) Neutrophils # (Auto) 4.3 x10^3uL (1.8-7.7) Lymphocytes # (Auto) 2.7 x10^3/uL (1.0-4.8) Monocytes # (Auto) 0.5 x10^3/uL (0.0-1.1) Eosinophils # (Auto) 0.3 x10^3/uL (0.0-0.7) Basophils # (Auto) 0.0 x10^3/uL (0.0-0.2) Sodium Level 144 mmol/L (136-145) Potassium Level 4.5 mmol/L (3.5-5.1) Chloride Level 108 mmol/L (98-107) H Carbon Dioxide Level 31 mmol/L (21-32) Anion Gap 5 (6-14) L Blood Urea Nitrogen 32 mg/dL (7-20) H Creatinine 1.1 mg/dL (0.6-1.0) H Estimated GFR (Cockcroft-Gault) 47.3 BUN/Creatinine Ratio 29 (6-20) H Glucose Level 160 mg/dL (70-99) H Calcium Level 8.2 mg/dL (8.5-10.1) L Total Bilirubin 0.1 mg/dL (0.2-1.0) L Aspartate Amino Transferase (AST) 18 U/L (15-37) Alanine Aminotransferase (ALT) 25 U/L (14-59) Alkaline Phosphatase 121 U/L (46-116) H Troponin I High Sensitivity 11 ng/L (4-50) YD-[id number]-R-Type Natriuretic Peptide 965 pg/mL (0-449) H Total Protein 6.3 g/dL (6.4-8.2) L Albumin 2.3 g/dL (3.4-5.0) L Albumin/Globulin Ratio 0.6 (1.0-1.7) L Glucose (Fingerstick) 104 mg/dL (70-99) H Current Medications: Meds: Current Medications Medications (Trade) Dose Ordered Sig/Richard Route PRN Reason Start Time Stop Time Status Last Admin Dose Admin Albuterol/ Ipratropium (Combivent Respimat 20-100 Mcg) 1 puff RTQID INH 10/18/21 20:00 10/19/21 07:51 I have reviewed the current psychotropics carefully including drug interactions. Risk benefit ratio favors no change other than as noted in my dictated progress note. Diagnosis: Problems: (1) Impulse control disorder, unspecified (2) Anxiety disorder, unspecified (3) Dementia, vascular, with depression (4) Dementia, vascular, with delusions (5) Dementia in Alzheimer's disease with depression (6) Dementia in Alzheimer's disease with delusions (7) Dementia of the Alzheimer's type with early onset with behavioral disturbance (8) Major neurocognitive disorder SOO BAIRES MD Oct 19, 2021 08:37
[2021-10-19 15:33] VITALS: BP 124/70
[2021-10-19] MEDS ORDERED: AZITHROMYCIN 250 MG TABLET. PO ONE (16:45)
[2021-10-19] MEDS: SERTRALINE 50 MG TABLET. PO SCH (16:55)
[2021-10-19] MEDS: traZODone 50 MG TABLET. PO SCH (16:55)
[2021-10-19] MEDS: MELATONIN 3 MG TABLET PO SCH (16:55)
[2021-10-19] MEDS: MIRTAZAPINE 15 MG TABLET PO SCH (16:55)
--- NOTE | 2021-10-19 22:07 | PDOC ---
Exam Note: [place] Note: Please also refer to the separate dictated note~for this date of service dictated separately.~Patient seen individually. Discussed the patient with Nursing staff reviewed the chart.~Reviewed interim history and current functioning. Reviewed vital signs,~Labs/ Radiology~and current medications noted below. Continue current treatment with the changes noted in the dictated addendum note Assessment: Vital Signs/I&O: Vital Signs Date Time Temp Pulse Resp B/P (MAP) Pulse Ox O2 Delivery O2 Flow Rate FiO2 10/19/21 15:33 97.0 74 19 124/70 (88) 96 Room Air 10/18/21 15:42 2.0 I & O 10/18/21 10/18/21 10/19/21 15:00 23:00 07:00 Intake Total 1240 ml 600 ml Balance 1240 ml 600 ml Labs: Laboratory Tests Test 10/19/21 07:42 Glucose (Fingerstick) 104 mg/dL (70-99) H Current Medications: Meds: Laboratory Tests Test 10/19/21 07:42 Glucose (Fingerstick) 104 mg/dL Current Medications Medications (Trade) Dose Ordered Sig/Richard Route PRN Reason Start Time Stop Time Status Last Admin Dose Admin Acetaminophen (Tylenol) 650 mg PRN Q6HRS PRN PO MILD PAIN / TEMP > 100.3'F 09/27/21 15:00 10/14/21 21:36 Mirtazapine (Remeron) 15 mg QHS PO 09/27/21 21:00 10/19/21 16:55 Olanzapine (ZyPREXA ZYDIS) 2.5 mg PRN Q2HRS PRN PO ANXIETY / AGITATION 09/27/21 15:00 10/19/21 21:12 Quetiapine Fumarate (SEROquel) 25 mg BID PO 09/27/21 21:00 10/19/21 16:55 Sertraline HCl (Zoloft) 50 mg HS PO 09/27/21 21:00 10/19/21 16:55 Trazodone HCl (Desyrel) 25 mg HS PO 09/27/21 21:00 10/05/21 18:14 DC 10/04/21 20:06 Melatonin (Melatonin) 3 mg HS PO 09/27/21 21:00 10/19/21 16:55 Metformin HCl (Glucophage) 500 mg BIDWMEALS PO 09/29/21 17:00 10/19/21 16:56 Nystatin (Nystop) 15 sulma STK-MED ONCE TP 10/04/21 09:36 10/04/21 09:36 DC Trazodone HCl (Desyrel) 50 mg HS PO 10/05/21 21:00 10/19/21 16:55 Trazodone HCl (Desyrel) 50 mg PRN QHS PRN PO INSOMNIA 10/05/21 18:15 10/18/21 23:33 Albuterol/ Ipratropium (Combivent Respimat 20-100 Mcg) 1 puff RTQID INH 10/18/21 20:00 10/19/21 20:00 Azithromycin (Zithromax) 500 mg 1X ONCE PO 10/19/21 16:45 10/19/21 16:46 DC 10/19/21 17:03 Azithromycin (Zithromax) 250 mg DAILY PO 10/20/21 09:00 Current Medications Medications (Trade) Dose Ordered Sig/Richard Route PRN Reason Start Time Stop Time Status Last Admin Dose Admin Azithromycin (Zithromax) 500 mg 1X ONCE PO 10/19/21 16:45 10/19/21 16:46 DC 10/19/21 17:03 I have reviewed the current psychotropics carefully including drug interactions. Risk benefit ratio favors no change other than as noted in my dictated progress note. Diagnosis: Problems: (1) Impulse control disorder, unspecified (2) Anxiety disorder, unspecified (3) Dementia, vascular, with depression (4) Dementia, vascular, with delusions (5) Dementia in Alzheimer's disease with depression (6) Dementia in Alzheimer's disease with delusions (7) Dementia of the Alzheimer's type with early onset with behavioral disturbance (8) Major neurocognitive disorder SOO BAIRES MD Oct 19, 2021 22:07
--- NOTE | 2021-10-19 23:26 | PN ---
DATE: 10/19/2021 SUBJECTIVE: The patient was seen today at the nursing staff request as they noted that she has increased wheezing and we did order lab work and a chest x-ray. Her lab work showed her white cell count was normal at 7.9, hemoglobin and hematocrit 9 and 28, MCV 83 and platelet count of 169. Her chemistry was also stable. However, her chest x-ray showed that the cardiomediastinal silhouette is normal. The pulmonary vasculature is normal. There are reticular opacities of the lungs and patchy opacity in the lower left lung consistent with atypical pneumonia. PHYSICAL EXAMINATION: GENERAL: When I examined her, she was pale, but no jaundice, cyanosis or thyromegaly. No jugular venous distention. No limb edema. VITAL SIGNS: Her heart rate was 74, blood pressure was 124/70, temperature was 97, respiratory rate was 19, and oxygen saturation was 96% on room air. HEAD, EYES, EARS, NOSE, AND THROAT: Normocephalic, atraumatic. NECK: Supple. HEART: Showed normal first and second heart sounds. No gallop, rub or murmur. CHEST: Shows central trachea, equal bilateral chest expansion, air entry, vesicular breath sounds with few bilateral scattered rhonchi. I could not appreciate any crepitation. ABDOMEN: Distended, soft, nontender. NEUROLOGIC: Grossly intact. She is mostly wheelchair bound. Her intake was 1400, no output was recorded. ASSESSMENT AND PLAN: Atypical pneumonia with bronchospasm for which we started her on Zithromax as well as Combivent inhaler with spacer. Other issues include type 2 diabetes mellitus, chronic obstructive pulmonary disease. CARIDAD DR: Rafy TID: [id number]
[2021-10-20 06:06] VITALS: BP 128/68
--- NOTE | 2021-10-20 06:39 | PDOC ---
Exam Note: [place] Note: This note is a late entry for 10/16/2021 covers elements not covered in my initial note. Subjective: The patient was seen individually on 10/16/2021, discussed and reviewed the chart with Nikia TANG. The patient slept 6-1/2 hours previous night. She had a nap in the afternoon, less yelling, still at one time was calling out help me, help me. She went to the bathroom, then was okay. I met with her in her room. Review of Systems: Ambulation impaired, in wheelchair. No CV, , pulmonary, eye system symptoms on review. Mental Status Exam: The patient is oriented to herself. She was quite animated, verbal, distractible, repeatedly asking me to sit down with her as I visited with her. Speech coherent. Abstraction fair. Computation impaired. Language function intact. No suicidal or homicidal ideation. Laboratory Data: Reviewed. Impression: Major neurocognitive disorder Alzheimer, vascular, with delusions, depression, behavioral disturbance. Anxiety disorder unspecified. Impulse control disorder unspecified. Plan: Continue current psychotropics. Adjust further as clinically indicated. Assessment: Vital Signs/I&O: Vital Signs Date Time Temp Pulse Resp B/P (MAP) Pulse Ox O2 Delivery O2 Flow Rate FiO2 10/20/21 06:06 97.6 69 16 128/68 (88) 94 10/19/21 15:33 Room Air 10/18/21 15:42 2.0 I & O 10/19/21 10/19/21 10/20/21 15:00 23:00 07:00 Intake Total 480 ml 360 ml Balance 480 ml 360 ml Labs: Laboratory Tests Test 10/19/21 07:42 Glucose (Fingerstick) 104 mg/dL (70-99) H Current Medications: Meds: Current Medications Medications (Trade) Dose Ordered Sig/Richard Route PRN Reason Start Time Stop Time Status Last Admin Dose Admin Azithromycin (Zithromax) 500 mg 1X ONCE PO 10/19/21 16:45 10/19/21 16:46 DC 10/19/21 17:03 I have reviewed the current psychotropics carefully including drug interactions. Risk benefit ratio favors no change other than as noted in my dictated progress note. Diagnosis: Problems: (1) Impulse control disorder, unspecified (2) Anxiety disorder, unspecified (3) Dementia, vascular, with depression (4) Dementia, vascular, with delusions (5) Dementia in Alzheimer's disease with depression (6) Dementia in Alzheimer's disease with delusions (7) Dementia of the Alzheimer's type with early onset with behavioral disturbance (8) Major neurocognitive disorder SOO BAIRES MD Oct 20, 2021 06:39
--- NOTE | 2021-10-20 06:53 | PDOC ---
Exam Note: [place] Note: This note is a late entry for 10/19/2021 covers elements not covered in my initial note. Subjective: The patient was seen individually on 10/19/2021, discussed and reviewed the chart with Desi TANG. I met with her in her room. She slept 6 hours previous night. She has been irritable, grouchy at times. She does have pneumonia, started on Azithromycin. We also had EKG done to rule out heart block, will defer to Dr. Díaz. Review of Systems: Ambulation impaired, in wheelchair. No CV, , pulmonary, eye system symptoms on review. Mental Status Exam: The patient is oriented to herself. Speech coherent, yelling. Abstraction fair. Computation impaired. Language function intact. N o suicidal or homicidal ideation. Laboratory Data: Reviewed. Impression: Major neurocognitive disorder Alzheimer, vascular, with delusions, depression, behavioral disturbance. Anxiety disorder unspecified. Impulse control disorder unspecified. Plan: Continue current psychotropics. Adjust further as clinically indicated. Assessment: Vital Signs/I&O: Vital Signs Date Time Temp Pulse Resp B/P (MAP) Pulse Ox O2 Delivery O2 Flow Rate FiO2 10/20/21 06:06 97.6 69 16 128/68 (88) 94 10/19/21 15:33 Room Air 10/18/21 15:42 2.0 I & O 10/19/21 10/19/21 10/20/21 15:00 23:00 07:00 Intake Total 480 ml 360 ml Balance 480 ml 360 ml Labs: Laboratory Tests Test 10/19/21 07:42 Glucose (Fingerstick) 104 mg/dL (70-99) H Current Medications: Meds: Current Medications Medications (Trade) Dose Ordered Sig/Richard Route PRN Reason Start Time Stop Time Status Last Admin Dose Admin Azithromycin (Zithromax) 500 mg 1X ONCE PO 10/19/21 16:45 10/19/21 16:46 DC 10/19/21 17:03 I have reviewed the current psychotropics carefully including drug interactions. Risk benefit ratio favors no change other than as noted in my dictated progress note. Diagnosis: Problems: (1) Impulse control disorder, unspecified (2) Anxiety disorder, unspecified (3) Dementia, vascular, with depression (4) Dementia, vascular, with delusions (5) Dementia in Alzheimer's disease with depression (6) Dementia in Alzheimer's disease with delusions (7) Dementia of the Alzheimer's type with early onset with behavioral disturbance (8) Major neurocognitive disorder SOO BAIRES MD Oct 20, 2021 06:53
[2021-10-20] MEDS: metFORMIN 500 MG TABLET PO SCH ×2 (08:23→17:08)
[2021-10-20] MEDS: AZITHROMYCIN 250 MG TABLET. PO SCH (08:23)
[2021-10-20] MEDS: QUEtiapine 25 MG TABLET. PO SCH ×2 (08:23→19:43)
[2021-10-20] MEDS: IPRATROPIUM/ALBUTEROL 20/100mcg/INH INHALER. INH SCH ×4 (08:24→19:42)
[2021-10-20 15:49] VITALS: BP 137/82
[2021-10-20] MEDS: MIRTAZAPINE 15 MG TABLET PO SCH (19:42)
[2021-10-20] MEDS: traZODone 50 MG TABLET. PO SCH (19:42)
[2021-10-20] MEDS: SERTRALINE 50 MG TABLET. PO SCH (19:42)
[2021-10-20] MEDS: MELATONIN 3 MG TABLET PO SCH (19:43)
--- NOTE | 2021-10-20 21:41 | PDOC ---
Exam Note: [place] Note: Please also refer to the separate dictated note~for this date of service dictated separately.~Patient seen individually. Discussed the patient with Nursing staff reviewed the chart.~Reviewed interim history and current functioning. Reviewed vital signs,~Labs/ Radiology~and current medications noted below. Continue current treatment with the changes noted in the dictated addendum note Assessment: Vital Signs/I&O: Vital Signs Date Time Temp Pulse Resp B/P (MAP) Pulse Ox O2 Delivery O2 Flow Rate FiO2 10/20/21 15:49 97.2 70 20 137/82 (100) 98 10/19/21 15:33 Room Air 10/18/21 15:42 2.0 I & O 10/19/21 10/19/21 10/20/21 15:00 23:00 07:00 Intake Total 480 ml 360 ml Balance 480 ml 360 ml Labs: Laboratory Tests Test 10/20/21 07:51 Glucose (Fingerstick) 98 mg/dL (70-99) Current Medications: Meds: Laboratory Tests Test 10/20/21 07:51 Glucose (Fingerstick) 98 mg/dL Current Medications Medications (Trade) Dose Ordered Sig/Richard Route PRN Reason Start Time Stop Time Status Last Admin Dose Admin Acetaminophen (Tylenol) 650 mg PRN Q6HRS PRN PO MILD PAIN / TEMP > 100.3'F 09/27/21 15:00 10/14/21 21:36 Mirtazapine (Remeron) 15 mg QHS PO 09/27/21 21:00 10/20/21 19:42 Olanzapine (ZyPREXA ZYDIS) 2.5 mg PRN Q2HRS PRN PO ANXIETY / AGITATION 09/27/21 15:00 10/19/21 21:12 Quetiapine Fumarate (SEROquel) 25 mg BID PO 09/27/21 21:00 10/20/21 19:43 Sertraline HCl (Zoloft) 50 mg HS PO 09/27/21 21:00 10/20/21 19:42 Trazodone HCl (Desyrel) 25 mg HS PO 09/27/21 21:00 10/05/21 18:14 DC 10/04/21 20:06 Melatonin (Melatonin) 3 mg HS PO 09/27/21 21:00 10/20/21 19:43 Metformin HCl (Glucophage) 500 mg BIDWMEALS PO 09/29/21 17:00 10/20/21 17:08 Nystatin (Nystop) 15 sulma STK-MED ONCE TP 10/04/21 09:36 10/04/21 09:36 DC Trazodone HCl (Desyrel) 50 mg HS PO 10/05/21 21:00 10/20/21 19:42 Trazodone HCl (Desyrel) 50 mg PRN QHS PRN PO INSOMNIA 10/05/21 18:15 10/18/21 23:33 Albuterol/ Ipratropium (Combivent Respimat 20-100 Mcg) 1 puff RTQID INH 10/18/21 20:00 10/20/21 19:42 Azithromycin (Zithromax) 500 mg 1X ONCE PO 10/19/21 16:45 10/19/21 16:46 DC 10/19/21 17:03 Azithromycin (Zithromax) 250 mg DAILY PO 10/20/21 09:00 10/20/21 08:23 Current Medications Medications (Trade) Dose Ordered Sig/Richard Route PRN Reason Start Time Stop Time Status Last Admin Dose Admin Azithromycin (Zithromax) 250 mg DAILY PO 10/20/21 09:00 10/20/21 08:23 I have reviewed the current psychotropics carefully including drug interactions. Risk benefit ratio favors no change other than as noted in my dictated progress note. Diagnosis: Problems: (1) Impulse control disorder, unspecified (2) Anxiety disorder, unspecified (3) Dementia, vascular, with depression (4) Dementia, vascular, with delusions (5) Dementia in Alzheimer's disease with depression (6) Dementia in Alzheimer's disease with delusions (7) Dementia of the Alzheimer's type with early onset with behavioral disturbance (8) Major neurocognitive disorder SOO BAIRES MD Oct 20, 2021 21:41
[2021-10-21 06:19] VITALS: BP 126/69
--- NOTE | 2021-10-21 07:15 | PDOC ---
Exam Note: [place] Note: This note is a late entry for 10/20/2021 covers elements not covered in my initial note. Subjective: The patient was seen individually on 10/20/2021, discussed and reviewed the chart with Gloria TANG. Per nursing report the patient is doing reasonably well. She does have pneumonia and is on Azithromycin. She was quite animated, verbal as I met with her in her room but quite pleasant, smiling. Review of Systems: Ambulation impaired, in wheelchair. No CV, , eye system symptoms on review. Mental Status Exam: The patient is oriented to herself. Speech coherent. Abstraction fair. Computation impaired. Language function intact. No suicidal or homicidal ideation. Laboratory Data: Reviewed. Impression: Major neurocognitive disorder Alzheimer, vascular, with delusions, depression, behavioral disturbance. Anxiety disorder unspecified. Impulse control disorder unspecified. Plan: Continue current psychotropics. Adjust further as clinically indicated. Assessment: Vital Signs/I&O: Vital Signs Date Time Temp Pulse Resp B/P (MAP) Pulse Ox O2 Delivery O2 Flow Rate FiO2 10/21/21 06:19 98.2 82 19 126/69 (88) 94 Nasal Cannula 2.0 I & O 10/20/21 10/20/21 10/21/21 15:00 23:00 07:00 Intake Total 480 ml 240 ml Balance 480 ml 240 ml Labs: Laboratory Tests Test 10/20/21 07:51 Glucose (Fingerstick) 98 mg/dL (70-99) Current Medications: Meds: Current Medications Medications (Trade) Dose Ordered Sig/Richard Route PRN Reason Start Time Stop Time Status Last Admin Dose Admin Azithromycin (Zithromax) 250 mg DAILY PO 10/20/21 09:00 10/20/21 08:23 I have reviewed the current psychotropics carefully including drug interactions. Risk benefit ratio favors no change other than as noted in my dictated progress note. Diagnosis: Problems: (1) Impulse control disorder, unspecified (2) Anxiety disorder, unspecified (3) Dementia, vascular, with depression (4) Dementia, vascular, with delusions (5) Dementia in Alzheimer's disease with depression (6) Dementia in Alzheimer's disease with delusions (7) Dementia of the Alzheimer's type with early onset with behavioral disturbance (8) Major neurocognitive disorder SOO BAIRES MD Oct 21, 2021 07:15
[2021-10-21] MEDS: metFORMIN 500 MG TABLET PO SCH ×2 (08:18→17:09)
[2021-10-21] MEDS: AZITHROMYCIN 250 MG TABLET. PO SCH (08:18)
[2021-10-21] MEDS: QUEtiapine 25 MG TABLET. PO SCH ×2 (08:18→19:41)
[2021-10-21] MEDS: IPRATROPIUM/ALBUTEROL 20/100mcg/INH INHALER. INH SCH ×4 (08:42→19:40)
[2021-10-21] MEDS: LACTOBACILLUS RHAMNOSUS GG 1 CAPSULE. PO SCH ×2 (08:43→19:41)
--- NOTE | 2021-10-21 12:27 | TX PLAN ---
Interdisciplinary Tx Plan Admission Information Sep 27, 2021 at 12:55 Legal Status (on Admission): Voluntary DPOA/Guardian Name: Lucille NieceOscar Bergman Contact Other Contact Name: Jayna Sheikh Contact Verified Code Status: Full Code Allergies: Coded Allergies: No Known Drug Allergies (Unverified , 07/16/21) Diagnoses Primary Diagnosis: 1. 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 Mood disorder, unspecified. Reasons for Admission: Aggressive, Delusions, Agitated, Sig. Change Sleep, Hallucinations, Combative Problem in Patient's Words: Per pt great niece/DPOAАнна who was raised mostly by pt, pt has had a noticable decline over the past year and particularlly over the past couple of months. Up until a year ago, pt was living in her independant living apartment and out of the [place], she moved to [place], [place] and bought a house that she paid winn for. She was then found to be living in very poor conditions without running water and no utilities and overall unable to care for herself. She had a few past hospitalizations but then release to herself and then would be found again living in unsafe conditions. At one point, pt drove herself to Анна's home, but refused to come in to stay, and would only stay in her car. Анна was finally successful at gaining DPOA during one of pt's hospitalizations and also in getting her license revoked. During the past year, family and staff during the different hospitalizations discovered pt was having hallucinations and delusions that seem to continue. Анна is concerned if pt is struggling with onset of dementia or if pt is truly experiencing psychosis and might clear in the future with medication management. Additional Admission Comments: Per intake record, pt refusing UA and cath, sexually inappropriate comments to staff, not sleeping for 30 hours, combative to staff, delusions,auditory hallucinations, verbally aggressive, screaming, cussing, disruptive. Problems Active Problems: Agitation Inactive Problems: Pt has shown improvements. She is less aggressive, delusional, and combative. She, also, is sleeping better. Pt Strengths/Limitations Ability for [place]: Poor Cognitive Functioning/Ability: Poor Communication Skills/Ability: Fair Financial Resources: Fair Insight/Judgement: Poor Intellectual Ability: Fair Physical Health: Poor Social Skills: Fair Stability in Family: Fair Stability in School/Work: Fair Verbal Skills: Fair Discharge Criteria Discharge Criteria: Adequate arrangements @DC, Verbal commit med comply, Improved behavior, Improved mood/thought Other Discharge Comments: None at this time. Preliminary Discharge Plan Preliminary DC Plan: Placement Needed Special Precautions Special Precautions: Agitation/Assault, Swallowing/Choking Fall Risk: High Other Precautions (specify): Pt has a history of falls. Initial D/C Plan Pt will need placement at time of discharge. Identified Discharge Needs: None at this time. Currently Utilized Resources Currently Utilized Resources/P: Great Niece/DPOA-Анна Jj has hired and regulatory attorney to assist with guardianship. Prior to Admission: PCP-Dr. Quang Raza Facility-[facility]; contact-CHANA Cruz *Note-Pt will not return to [facility] Referrals Community Resources: None known at this time. Identified Problems/Hx/Goals Objectives/Short-Term Goals Short Term Goals: Control abnormal behavior, Dec. Aggression, Dec. Anxiety/Panic, Dec. Hallucination/Delus, Dec. Outbursts, Medication Stabilization, Monitor Med Effects, Prevent Deterioration, Promote Coping Skill Short Term Goals in Patient's: Assist with proper diagnosis of psychosis vs dementia. Interventions/Frequency Staff Interventions/Frequency&: Psychiatry to assess pt three times per week for medication management. Nursing to assess behaviors, monitor medications, and complete 15 minute checks daily. Social work to see pt at least two times weekly to aid in return to placement. Activities to encourage pt to participate in group activities daily. 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 Education: According to DPOA, pt received a high school diploma and she had some technical college. Community Follow-up PCP Community Provider/Family Inpu: Pt great nigregorio/Анна LANG, provided pt history for the development of the treatment plan. Анна is available for further information should it be needed. 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 She does still continue to take naps throughout the day. Pt developed atypical pneumonia and is taking zithromax. Her wheezes are better and consequentially she is less agitated and now more pleasant. She has been pleasant and conversing with staff and other pts at dinner times. She mostly likes to stay in her room coming out for dinners. She mostly declines groups, but will engage pleasantly with BRUSHER TENDER during 1:1. APS report was called based on self neglect and SW is waiting to hear back on investigation. Placement will be pursued when appropriated to do so. LINDA BLACKWELL Oct 21, 2021 12:27
[2021-10-21 15:32] VITALS: BP 145/72
[2021-10-21] MEDS: SERTRALINE 50 MG TABLET. PO SCH (19:40)
[2021-10-21] MEDS: traZODone 50 MG TABLET. PO SCH (19:41)
[2021-10-21] MEDS: MIRTAZAPINE 15 MG TABLET PO SCH (19:42)
[2021-10-21] MEDS: MELATONIN 3 MG TABLET PO SCH (19:42)
--- NOTE | 2021-10-21 21:48 | PDOC ---
Exam Note: [place] Note: Please also refer to the separate dictated note~for this date of service dictated separately.~Patient seen individually. Discussed the patient with Nursing staff reviewed the chart.~Reviewed interim history and current functioning. Reviewed vital signs,~Labs/ Radiology~and current medications noted below. Continue current treatment with the changes noted in the dictated addendum note Assessment: Vital Signs/I&O: Vital Signs Date Time Temp Pulse Resp B/P (MAP) Pulse Ox O2 Delivery O2 Flow Rate FiO2 10/21/21 15:32 98.6 74 16 145/72 (96) 99 10/21/21 06:19 Nasal Cannula 2.0 I & O 10/20/21 10/20/21 10/21/21 15:00 23:00 07:00 Intake Total 480 ml 240 ml Balance 480 ml 240 ml Labs: Laboratory Tests Test 10/21/21 07:41 Glucose (Fingerstick) 116 mg/dL (70-99) H Current Medications: Meds: Laboratory Tests Test 10/21/21 07:41 Glucose (Fingerstick) 116 mg/dL Current Medications Medications (Trade) Dose Ordered Sig/Richard Route PRN Reason Start Time Stop Time Status Last Admin Dose Admin Acetaminophen (Tylenol) 650 mg PRN Q6HRS PRN PO MILD PAIN / TEMP > 100.3'F 09/27/21 15:00 10/14/21 21:36 Mirtazapine (Remeron) 15 mg QHS PO 09/27/21 21:00 10/21/21 19:42 Olanzapine (ZyPREXA ZYDIS) 2.5 mg PRN Q2HRS PRN PO ANXIETY / AGITATION 09/27/21 15:00 10/19/21 21:12 Quetiapine Fumarate (SEROquel) 25 mg BID PO 09/27/21 21:00 10/21/21 19:41 Sertraline HCl (Zoloft) 50 mg HS PO 09/27/21 21:00 10/21/21 19:40 Trazodone HCl (Desyrel) 25 mg HS PO 09/27/21 21:00 10/05/21 18:14 DC 10/04/21 20:06 Melatonin (Melatonin) 3 mg HS PO 09/27/21 21:00 10/21/21 19:42 Metformin HCl (Glucophage) 500 mg BIDWMEALS PO 09/29/21 17:00 10/21/21 17:09 Nystatin (Nystop) 15 sulma STK-MED ONCE TP 10/04/21 09:36 10/04/21 09:36 DC Trazodone HCl (Desyrel) 50 mg HS PO 10/05/21 21:00 10/21/21 19:41 Trazodone HCl (Desyrel) 50 mg PRN QHS PRN PO INSOMNIA 10/05/21 18:15 10/18/21 23:33 Albuterol/ Ipratropium (Combivent Respimat 20-100 Mcg) 1 puff RTQID INH 10/18/21 20:00 10/21/21 19:40 Azithromycin (Zithromax) 500 mg 1X ONCE PO 10/19/21 16:45 10/19/21 16:46 DC 10/19/21 17:03 Azithromycin (Zithromax) 250 mg DAILY PO 10/20/21 09:00 10/21/21 08:18 Lactobacillus Rhamnosus (Culturelle) 1 cap BID PO 10/21/21 09:00 10/21/21 19:41 Current Medications Medications (Trade) Dose Ordered Sig/Richard Route PRN Reason Start Time Stop Time Status Last Admin Dose Admin Lactobacillus Rhamnosus (Culturelle) 1 cap BID PO 10/21/21 09:00 10/21/21 19:41 I have reviewed the current psychotropics carefully including drug interactions. Risk benefit ratio favors no change other than as noted in my dictated progress note. Diagnosis: Problems: (1) Impulse control disorder, unspecified (2) Anxiety disorder, unspecified (3) Dementia, vascular, with depression (4) Dementia, vascular, with delusions (5) Dementia in Alzheimer's disease with depression (6) Dementia in Alzheimer's disease with delusions (7) Dementia of the Alzheimer's type with early onset with behavioral disturbance (8) Major neurocognitive disorder SOO BAIRES MD Oct 21, 2021 21:48
[2021-10-22 06:06] VITALS: BP 127/54
[2021-10-22] MEDS: IPRATROPIUM/ALBUTEROL 20/100mcg/INH INHALER. INH SCH ×4 (08:03→20:54)
[2021-10-22] MEDS: metFORMIN 500 MG TABLET PO SCH ×2 (08:03→17:20)
[2021-10-22] MEDS: QUEtiapine 25 MG TABLET. PO SCH ×2 (08:04→20:54)
[2021-10-22] MEDS: LACTOBACILLUS RHAMNOSUS GG 1 CAPSULE. PO SCH ×2 (08:04→20:54)
[2021-10-22] MEDS: AZITHROMYCIN 250 MG TABLET. PO SCH (08:04)
[2021-10-22 15:31] VITALS: BP 165/84
[2021-10-22] MEDS: SERTRALINE 50 MG TABLET. PO SCH (20:54)
[2021-10-22] MEDS: traZODone 50 MG TABLET. PO SCH (20:54)
[2021-10-22] MEDS: MIRTAZAPINE 15 MG TABLET PO SCH (20:54)
[2021-10-22] MEDS: MELATONIN 3 MG TABLET PO SCH (20:54)
--- NOTE | 2021-10-22 21:30 | PDOC ---
Exam Note: [place] Note: Please also refer to the separate dictated note~for this date of service dictated separately.~Patient seen individually. Discussed the patient with Nursing staff reviewed the chart.~Reviewed interim history and current functioning. Reviewed vital signs,~Labs/ Radiology~and current medications noted below. Continue current treatment with the changes noted in the dictated addendum note Assessment: Vital Signs/I&O: Vital Signs Date Time Temp Pulse Resp B/P (MAP) Pulse Ox O2 Delivery O2 Flow Rate FiO2 10/22/21 15:31 98.1 74 16 165/84 (111) 98.0 10/22/21 06:06 95 Room Air I & O 10/21/21 10/21/21 10/22/21 14:59 22:59 06:59 Intake Total 860 ml 780 ml Balance 860 ml 780 ml Labs: Laboratory Tests Test 10/22/21 07:29 Glucose (Fingerstick) 125 mg/dL (70-99) H Current Medications: Meds: Laboratory Tests Test 10/22/21 07:29 Glucose (Fingerstick) 125 mg/dL Current Medications Medications (Trade) Dose Ordered Sig/Richard Route PRN Reason Start Time Stop Time Status Last Admin Dose Admin Acetaminophen (Tylenol) 650 mg PRN Q6HRS PRN PO MILD PAIN / TEMP > 100.3'F 09/27/21 15:00 10/14/21 21:36 Mirtazapine (Remeron) 15 mg QHS PO 09/27/21 21:00 10/22/21 20:54 Olanzapine (ZyPREXA ZYDIS) 2.5 mg PRN Q2HRS PRN PO ANXIETY / AGITATION 09/27/21 15:00 10/19/21 21:12 Quetiapine Fumarate (SEROquel) 25 mg BID PO 09/27/21 21:00 10/22/21 20:54 Sertraline HCl (Zoloft) 50 mg HS PO 09/27/21 21:00 10/22/21 20:54 Trazodone HCl (Desyrel) 25 mg HS PO 09/27/21 21:00 10/05/21 18:14 DC 10/04/21 20:06 Melatonin (Melatonin) 3 mg HS PO 09/27/21 21:00 10/22/21 20:54 Metformin HCl (Glucophage) 500 mg BIDWMEALS PO 09/29/21 17:00 10/22/21 17:20 Nystatin (Nystop) 15 sulma STK-MED ONCE TP 10/04/21 09:36 10/04/21 09:36 DC Trazodone HCl (Desyrel) 50 mg HS PO 10/05/21 21:00 10/22/21 20:54 Trazodone HCl (Desyrel) 50 mg PRN QHS PRN PO INSOMNIA 10/05/21 18:15 10/18/21 23:33 Albuterol/ Ipratropium (Combivent Respimat 20-100 Mcg) 1 puff RTQID INH 10/18/21 20:00 10/22/21 20:54 Azithromycin (Zithromax) 500 mg 1X ONCE PO 10/19/21 16:45 10/19/21 16:46 DC 10/19/21 17:03 Azithromycin (Zithromax) 250 mg DAILY PO 10/20/21 09:00 10/24/21 22:00 10/22/21 08:04 Lactobacillus Rhamnosus (Culturelle) 1 cap BID PO 10/21/21 09:00 10/22/21 20:54 I have reviewed the current psychotropics carefully including drug interactions. Risk benefit ratio favors no change other than as noted in my dictated progress note. Diagnosis: Problems: (1) Impulse control disorder, unspecified (2) Anxiety disorder, unspecified (3) Dementia, vascular, with depression (4) Dementia, vascular, with delusions (5) Dementia in Alzheimer's disease with depression (6) Dementia in Alzheimer's disease with delusions (7) Dementia of the Alzheimer's type with early onset with behavioral disturbance (8) Major neurocognitive disorder SOO BAIRES MD Oct 22, 2021 21:30
[2021-10-23 06:16] VITALS: BP 158/66
--- NOTE | 2021-10-23 07:20 | PDOC ---
Exam Note: [place] Note: This note is a late entry for 10/21/2021 covers elements not covered in my initial note. Subjective: The patient was reviewed at treatment team meeting in the morning on 10/21/2021 with Katherine Moreno, Eliza Muniz, and Stephani Curry (social work associate), Martina, activity therapy, Nuria Bella, Clinical Technician, and Ester TANG, discussed and reviewed the chart. Discussed and reviewed her progress, diagnoses, current psychotropic medications and drug interactions. The patient slept 7 hours previous night. Appetite is 94%. She has been much more pleasant. Her lungs sounds clearer. She is more social per activity therapy staff. She had a sense of humor as I met with her in her room at some length in the evening. Review of Systems: Ambulation impaired, in wheelchair. No CV, , eye system symptoms on review. Mental Status Exam: The patient is oriented to herself. She sense of humor is quite caustic but really very pleasant. Speech coherent. Abstraction fair. Computation impaired. Language function intact. No suicidal or homicidal ideation. Laboratory Data: Reviewed. Impression: Major neurocognitive disorder Alzheimer, vascular, with delusions, depression, behavioral disturbance. Anxiety disorder unspecified. Impulse control disorder unspecified. Plan: Continue current psychotropics. Adjust further as clinically indicated. Assessment: Vital Signs/I&O: Vital Signs Date Time Temp Pulse Resp B/P (MAP) Pulse Ox O2 Delivery O2 Flow Rate FiO2 10/23/21 06:16 97.2 83 16 158/66 (96) 92 10/22/21 15:31 98.0 10/22/21 06:06 Room Air I & O 10/22/21 10/22/21 10/23/21 15:00 23:00 07:00 Intake Total 720 ml 600 ml Balance 720 ml 600 ml Labs: Laboratory Tests Test 10/22/21 07:29 Glucose (Fingerstick) 125 mg/dL (70-99) H Current Medications: I have reviewed the current psychotropics carefully including drug interactions. Risk benefit ratio favors no change other than as noted in my dictated progress note. Diagnosis: Problems: (1) Impulse control disorder, unspecified (2) Anxiety disorder, unspecified (3) Dementia, vascular, with depression (4) Dementia, vascular, with delusions (5) Dementia in Alzheimer's disease with depression (6) Dementia in Alzheimer's disease with delusions (7) Dementia of the Alzheimer's type with early onset with behavioral disturbance (8) Major neurocognitive disorder SOO BAIRES MD Oct 23, 2021 07:20
--- NOTE | 2021-10-23 07:36 | PDOC ---
Exam Note: [place] Note: This note is a late entry for 10/22/2021 covers elements not covered in my initial note. Subjective: The patient was seen individually on 10/22/2021, discussed and reviewed the chart with Liya TANG. The patient slept 7-1/4 hours previous night. Per nursing report, the patient has been very appropriate on the unit. She remains confused, has a caustic sense of humor. Otherwise, pleasant, cooperative. I met with her in the dining room. Review of Systems: Ambulation impaired, in wheelchair. No CV, , eye system symptoms on review. Mental Status Exam: The patient is oriented to herself and situation. Speech coherent, rapid at times. Abstraction fair. Computation impaired. Language function intact. Mood and affect somewhat anxious, labile but improved, much more pleasant than a few days back. Laboratory Data: Reviewed. Impression: Major neurocognitive disorder Alzheimer, vascular, with delusions, depression, behavioral disturbance. Anxiety disorder unspecified. Impulse control disorder unspecified. Plan: No change from initial note. Assessment: Vital Signs/I&O: Vital Signs Date Time Temp Pulse Resp B/P (MAP) Pulse Ox O2 Delivery O2 Flow Rate FiO2 10/23/21 06:16 97.2 83 16 158/66 (96) 92 10/22/21 15:31 98.0 10/22/21 06:06 Room Air I & O 10/22/21 10/22/21 10/23/21 14:59 22:59 06:59 Intake Total 720 ml 600 ml Balance 720 ml 600 ml Current Medications: I have reviewed the current psychotropics carefully including drug interactions. Risk benefit ratio favors no change other than as noted in my dictated progress note. Diagnosis: Problems: (1) Impulse control disorder, unspecified (2) Anxiety disorder, unspecified (3) Dementia, vascular, with depression (4) Dementia, vascular, with delusions (5) Dementia in Alzheimer's disease with depression (6) Dementia in Alzheimer's disease with delusions (7) Dementia of the Alzheimer's type with early onset with behavioral disturbance (8) Major neurocognitive disorder SOO BAIRES MD Oct 23, 2021 07:36
[2021-10-23] MEDS: AZITHROMYCIN 250 MG TABLET. PO SCH (08:31)
[2021-10-23] MEDS: QUEtiapine 25 MG TABLET. PO SCH ×2 (08:31→19:41)
[2021-10-23] MEDS: LACTOBACILLUS RHAMNOSUS GG 1 CAPSULE. PO SCH ×2 (08:31→19:41)
[2021-10-23] MEDS: metFORMIN 500 MG TABLET PO SCH ×2 (08:31→17:12)
[2021-10-23] MEDS: IPRATROPIUM/ALBUTEROL 20/100mcg/INH INHALER. INH SCH ×4 (08:34→19:42)
[2021-10-23 16:23] VITALS: BP 123/64
[2021-10-23] MEDS: traZODone 50 MG TABLET. PO SCH (19:41)
[2021-10-23] MEDS: MIRTAZAPINE 15 MG TABLET PO SCH (19:41)
[2021-10-23] MEDS: SERTRALINE 50 MG TABLET. PO SCH (19:41)
[2021-10-23] MEDS: MELATONIN 3 MG TABLET PO SCH (19:41)
--- NOTE | 2021-10-23 21:38 | PDOC ---
Exam Note: [place] Note: Please also refer to the separate dictated note~for this date of service dictated separately.~Patient seen individually. Discussed the patient with Nursing staff reviewed the chart.~Reviewed interim history and current functioning. Reviewed vital signs,~Labs/ Radiology~and current medications noted below. Continue current treatment with the changes noted in the dictated addendum note Assessment: Vital Signs/I&O: Vital Signs Date Time Temp Pulse Resp B/P (MAP) Pulse Ox O2 Delivery O2 Flow Rate FiO2 10/23/21 16:23 98.2 78 16 123/64 (83) 93 Room Air 10/22/21 15:31 98.0 I & O 10/22/21 10/22/21 10/23/21 15:00 23:00 07:00 Intake Total 720 ml 600 ml Balance 720 ml 600 ml Labs: Laboratory Tests Test 10/23/21 07:37 Glucose (Fingerstick) 112 mg/dL (70-99) H Current Medications: Meds: Laboratory Tests Test 10/23/21 07:37 Glucose (Fingerstick) 112 mg/dL Current Medications Medications (Trade) Dose Ordered Sig/Richard Route PRN Reason Start Time Stop Time Status Last Admin Dose Admin Acetaminophen (Tylenol) 650 mg PRN Q6HRS PRN PO MILD PAIN / TEMP > 100.3'F 09/27/21 15:00 10/14/21 21:36 Mirtazapine (Remeron) 15 mg QHS PO 09/27/21 21:00 10/23/21 19:41 Olanzapine (ZyPREXA ZYDIS) 2.5 mg PRN Q2HRS PRN PO ANXIETY / AGITATION 09/27/21 15:00 10/19/21 21:12 Quetiapine Fumarate (SEROquel) 25 mg BID PO 09/27/21 21:00 10/23/21 19:41 Sertraline HCl (Zoloft) 50 mg HS PO 09/27/21 21:00 10/23/21 19:41 Trazodone HCl (Desyrel) 25 mg HS PO 09/27/21 21:00 10/05/21 18:14 DC 10/04/21 20:06 Melatonin (Melatonin) 3 mg HS PO 09/27/21 21:00 10/23/21 19:41 Metformin HCl (Glucophage) 500 mg BIDWMEALS PO 09/29/21 17:00 10/23/21 17:12 Nystatin (Nystop) 15 sulma STK-MED ONCE TP 10/04/21 09:36 10/04/21 09:36 DC Trazodone HCl (Desyrel) 50 mg HS PO 10/05/21 21:00 10/23/21 19:41 Trazodone HCl (Desyrel) 50 mg PRN QHS PRN PO INSOMNIA 10/05/21 18:15 10/18/21 23:33 Albuterol/ Ipratropium (Combivent Respimat 20-100 Mcg) 1 puff RTQID INH 10/18/21 20:00 10/23/21 19:42 Azithromycin (Zithromax) 500 mg 1X ONCE PO 10/19/21 16:45 10/19/21 16:46 DC 10/19/21 17:03 Azithromycin (Zithromax) 250 mg DAILY PO 10/20/21 09:00 10/24/21 22:00 10/23/21 08:31 Lactobacillus Rhamnosus (Culturelle) 1 cap BID PO 10/21/21 09:00 10/23/21 19:41 I have reviewed the current psychotropics carefully including drug interactions. Risk benefit ratio favors no change other than as noted in my dictated progress note. 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
[2021-10-24] MEDS: ACETAMINOPHEN 325 MG TABLET PO PRN (05:30)
[2021-10-24 06:17] VITALS: BP 125/68
[2021-10-24] MEDS: metFORMIN 500 MG TABLET PO SCH ×2 (08:23→17:15)
[2021-10-24] MEDS: QUEtiapine 25 MG TABLET. PO SCH ×2 (08:23→21:07)
[2021-10-24] MEDS: IPRATROPIUM/ALBUTEROL 20/100mcg/INH INHALER. INH SCH ×4 (08:23→21:11)
[2021-10-24] MEDS: AZITHROMYCIN 250 MG TABLET. PO SCH (08:23)
[2021-10-24] MEDS: LACTOBACILLUS RHAMNOSUS GG 1 CAPSULE. PO SCH ×2 (08:23→21:07)
[2021-10-24 15:35] VITALS: BP 127/73
[2021-10-24] MEDS: DICLOFENAC SODIUM 1% TOPICAL GEL 100GM TUBE. TP SCH ×2 (17:15→21:10)
[2021-10-24] MEDS: MIRTAZAPINE 15 MG TABLET PO SCH (21:07)
[2021-10-24] MEDS: traZODone 50 MG TABLET. PO SCH (21:07)
[2021-10-24] MEDS: MELATONIN 3 MG TABLET PO SCH (21:07)
[2021-10-24] MEDS: SERTRALINE 50 MG TABLET. PO SCH (21:07)
--- NOTE | 2021-10-24 21:39 | PDOC ---
Exam Note: [place] Note: Please also refer to the separate dictated note~for this date of service dictated separately.~Patient seen individually. Discussed the patient with Nursing staff reviewed the chart.~Reviewed interim history and current functioning. Reviewed vital signs,~Labs/ Radiology~and current medications noted below. Continue current treatment with the changes noted in the dictated addendum note Assessment: Vital Signs/I&O: Vital Signs Date Time Temp Pulse Resp B/P (MAP) Pulse Ox O2 Delivery O2 Flow Rate FiO2 10/24/21 15:35 98.2 74 19 127/73 (91) 97 10/23/21 16:23 Room Air 10/22/21 15:31 98.0 I & O 10/23/21 10/23/21 10/24/21 15:00 23:00 07:00 Intake Total 360 ml 240 ml Balance 360 ml 240 ml Labs: Laboratory Tests Test 10/24/21 07:52 Glucose (Fingerstick) 110 mg/dL (70-99) H Current Medications: Meds: Laboratory Tests Test 10/24/21 07:52 Glucose (Fingerstick) 110 mg/dL Current Medications Medications (Trade) Dose Ordered Sig/Richard Route PRN Reason Start Time Stop Time Status Last Admin Dose Admin Acetaminophen (Tylenol) 650 mg PRN Q6HRS PRN PO MILD PAIN / TEMP > 100.3'F 09/27/21 15:00 10/24/21 05:30 Mirtazapine (Remeron) 15 mg QHS PO 09/27/21 21:00 10/24/21 21:07 Olanzapine (ZyPREXA ZYDIS) 2.5 mg PRN Q2HRS PRN PO ANXIETY / AGITATION 09/27/21 15:00 10/19/21 21:12 Quetiapine Fumarate (SEROquel) 25 mg BID PO 09/27/21 21:00 10/24/21 21:07 Sertraline HCl (Zoloft) 50 mg HS PO 09/27/21 21:00 10/24/21 21:07 Trazodone HCl (Desyrel) 25 mg HS PO 09/27/21 21:00 10/05/21 18:14 DC 10/04/21 20:06 Melatonin (Melatonin) 3 mg HS PO 09/27/21 21:00 10/24/21 21:07 Metformin HCl (Glucophage) 500 mg BIDWMEALS PO 09/29/21 17:00 10/24/21 17:15 Nystatin (Nystop) 15 sulma STK-MED ONCE TP 10/04/21 09:36 10/04/21 09:36 DC Trazodone HCl (Desyrel) 50 mg HS PO 10/05/21 21:00 10/24/21 21:07 Trazodone HCl (Desyrel) 50 mg PRN QHS PRN PO INSOMNIA 10/05/21 18:15 10/18/21 23:33 Albuterol/ Ipratropium (Combivent Respimat 20-100 Mcg) 1 puff RTQID INH 10/18/21 20:00 10/24/21 21:11 Azithromycin (Zithromax) 500 mg 1X ONCE PO 10/19/21 16:45 10/19/21 16:46 DC 10/19/21 17:03 Azithromycin (Zithromax) 250 mg DAILY PO 10/20/21 09:00 10/24/21 22:00 10/24/21 08:23 Lactobacillus Rhamnosus (Culturelle) 1 cap BID PO 10/21/21 09:00 10/24/21 21:07 Diclofenac Sodium (Voltaren) 1 sulma TID TP 10/24/21 14:00 10/24/21 21:10 Current Medications Medications (Trade) Dose Ordered Sig/Richard Route PRN Reason Start Time Stop Time Status Last Admin Dose Admin Diclofenac Sodium (Voltaren) 1 sulma TID TP 10/24/21 14:00 10/24/21 21:10 I have reviewed the current psychotropics carefully including drug interactions. Risk benefit ratio favors no change other than as noted in my dictated progress note. Diagnosis: Problems: (1) Impulse control disorder, unspecified (2) Anxiety disorder, unspecified (3) Dementia, vascular, with depression (4) Dementia, vascular, with delusions (5) Dementia in Alzheimer's disease with depression (6) Dementia in Alzheimer's disease with delusions (7) Dementia of the Alzheimer's type with early onset with behavioral disturbance (8) Major neurocognitive disorder SOO BAIRES MD Oct 24, 2021 21:39
[2021-10-25 06:36] VITALS: BP 144/75
[2021-10-25] MEDS: LACTOBACILLUS RHAMNOSUS GG 1 CAPSULE. PO SCH ×2 (08:19→21:00)
[2021-10-25] MEDS: QUEtiapine 25 MG TABLET. PO SCH ×2 (08:19→21:00)
[2021-10-25] MEDS: metFORMIN 500 MG TABLET PO SCH ×2 (08:19→17:07)
[2021-10-25] MEDS: IPRATROPIUM/ALBUTEROL 20/100mcg/INH INHALER. INH SCH ×4 (08:22→21:00)
[2021-10-25] MEDS: DICLOFENAC SODIUM 1% TOPICAL GEL 100GM TUBE. TP SCH ×3 (08:22→20:59)
[2021-10-25] MEDS: ACETAMINOPHEN 325 MG TABLET PO PRN (12:25)
--- NOTE | 2021-10-25 13:26 | RAD ---
EXAM: Right hand, 2 views. HISTORY: Swelling and pain. COMPARISON: None. FINDINGS: 2 views of the right hand are obtained. There is no fracture, dislocation or subluxation. T here is mild degenerative spurring involving the distal interphalangeal joints. There is wrist chondr ocalcinosis. There is a prominent scapholunate joint space. However, this remains within normal limit s. There are vascular calcifications. IMPRESSION: No acute osseous finding. Electronically signed by: Dulce Padilla MD (10/25/2021 1:23 PM) [id number]
[2021-10-25 15:36] VITALS: BP 154/71
[2021-10-25] MEDS: MIRTAZAPINE 15 MG TABLET PO SCH (20:59)
[2021-10-25] MEDS: traZODone 50 MG TABLET. PO SCH (21:00)
[2021-10-25] MEDS: SERTRALINE 50 MG TABLET. PO SCH (21:00)
[2021-10-25] MEDS: MELATONIN 3 MG TABLET PO SCH (21:00)
--- NOTE | 2021-10-25 21:26 | PDOC ---
Exam Note: [place] Note: This note is a late entry for 10/23/2021 covers elements not covered in my initial note. Subjective: The patient was seen individually on 10/23/2021, discussed and reviewed the chart with Ester TANG. The patient slept 7-1/2 hours previous night. Overall the patient has done well. I met with her in her room. She is in a wheelchair. Review of Systems: Ambulation impaired, in wheelchair. No CV, , eye system symptoms on review. Mental Status Exam: The patient is oriented to herself and situation. As before she seems to have caustic sense of humor. Speech coherent. Abstraction fair. Computation impaired. Language function intact. Attention span short. Mood and affect remains somewhat anxious, but less dysphoric. No suicidal or homicidal ideation. Laboratory Data: Reviewed. Impression: Major neurocognitive disorder Alzheimer, vascular, with delusions, depression, behavioral disturbance. Anxiety disorder unspecified. Impulse control disorder unspecified. Plan: No change from initial note. Assessment: Vital Signs/I&O: Vital Signs Date Time Temp Pulse Resp B/P (MAP) Pulse Ox O2 Delivery O2 Flow Rate FiO2 10/25/21 15:36 98.2 80 18 154/71 (98) 100 10/23/21 16:23 Room Air 10/22/21 15:31 98.0 I & O 0 10/24/21 10/24/21 10/25/21 15:00 23:00 07:00 Intake Total 600 ml 480 ml Balance 600 ml 480 ml Labs: Laboratory Tests Test 10/25/21 07:56 Glucose (Fingerstick) 110 mg/dL (70-99) H Current Medications: I have reviewed the current psychotropics carefully including drug interactions. Risk benefit ratio favors no change other than as noted in my dictated progress note. Diagnosis: Problems: (1) Impulse control disorder, unspecified (2) Anxiety disorder, unspecified (3) Dementia, vascular, with depression (4) Dementia, vascular, with delusions (5) Dementia in Alzheimer's disease with depression (6) Dementia in Alzheimer's disease with delusions (7) Dementia of the Alzheimer's type with early onset with behavioral disturbance (8) Major neurocognitive disorder SOO BAIRES MD Oct 25, 2021 21:26
--- NOTE | 2021-10-25 21:39 | PDOC ---
Exam Note: [place] Note: This note is a late entry for 10/24/2021 covers elements not covered in my initial note. Subjective: The patient was seen on telehealth rounds on 10/24/2021, discussed and reviewed the chart with Nikia TANG. The patient slept 7-1/4 hours previous night. The patient was agitated previous evening with showers. She has done well today, seems to have sense of humor. I met with her in her room on telehealth rounds. Review of Systems: Ambulation impaired, in wheelchair. No CV, , pulmonary, eye system symptoms on review. Mental Status Exam: The patient is oriented to herself and situation. Speech coherent. Abstraction fair. Computation impaired. Language function intact. Mood and affect improved. Laboratory Data: Reviewed. Impression: Major neurocognitive disorder Alzheimer, vascular, with delusions, depression, behavioral disturbance. Anxiety disorder unspecified. Impulse control disorder unspecified. Plan: No change from initial note. Assessment: Vital Signs/I&O: Vital Signs Date Time Temp Pulse Resp B/P (MAP) Pulse Ox O2 Delivery O2 Flow Rate FiO2 10/25/21 15:36 98.2 80 18 154/71 (98) 100 10/23/21 16:23 Room Air 10/22/21 15:31 98.0 I & O 10/24/21 10/24/21 10/25/21 15:00 23:00 07:00 Intake Total 600 ml 480 ml Balance 600 ml 480 ml Labs: Laboratory Tests Test 10/25/21 07:56 Glucose (Fingerstick) 110 mg/dL (70-99) H Current Medications: I have reviewed the current psychotropics carefully including drug interactions. Risk benefit ratio favors no change other than as noted in my dictated progress note. Diagnosis: Problems: (1) Impulse control disorder, unspecified (2) Anxiety disorder, unspecified (3) Dementia, vascular, with depression (4) Dementia, vascular, with delusions (5) Dementia in Alzheimer's disease with depression (6) Dementia in Alzheimer's disease with delusions (7) Dementia of the Alzheimer's type with early onset with behavioral disturbance (8) Major neurocognitive disorder SOO BAIRES MD Oct 25, 2021 21:39
--- NOTE | 2021-10-25 21:50 | PDOC ---
Exam Note: [place] Note: Please also refer to the separate dictated note~for this date of service dictated separately.~Patient seen individually. Discussed the patient with Nursing staff reviewed the chart.~Reviewed interim history and current functioning. Reviewed vital signs,~Labs/ Radiology~and current medications noted below. Continue current treatment with the changes noted in the dictated addendum note Assessment: Vital Signs/I&O: Vital Signs Date Time Temp Pulse Resp B/P (MAP) Pulse Ox O2 Delivery O2 Flow Rate FiO2 10/25/21 15:36 98.2 80 18 154/71 (98) 100 10/23/21 16:23 Room Air 10/22/21 15:31 98.0 I & O 10/24/21 10/24/21 10/25/21 15:00 23:00 07:00 Intake Total 600 ml 480 ml Balance 600 ml 480 ml Labs: Laboratory Tests Test 10/25/21 07:56 Glucose (Fingerstick) 110 mg/dL (70-99) H Current Medications: Meds: Laboratory Tests Test 10/25/21 07:56 Glucose (Fingerstick) 110 mg/dL Current Medications Medications (Trade) Dose Ordered Sig/Richard Route PRN Reason Start Time Stop Time Status Last Admin Dose Admin Acetaminophen (Tylenol) 650 mg PRN Q6HRS PRN PO MILD PAIN / TEMP > 100.3'F 09/27/21 15:00 10/25/21 12:25 Mirtazapine (Remeron) 15 mg QHS PO 09/27/21 21:00 10/25/21 20:59 Olanzapine (ZyPREXA ZYDIS) 2.5 mg PRN Q2HRS PRN PO ANXIETY / AGITATION 09/27/21 15:00 10/19/21 21:12 Quetiapine Fumarate (SEROquel) 25 mg BID PO 09/27/21 21:00 10/25/21 21:00 Sertraline HCl (Zoloft) 50 mg HS PO 09/27/21 21:00 10/25/21 21:00 Trazodone HCl (Desyrel) 25 mg HS PO 09/27/21 21:00 10/05/21 18:14 DC 10/04/21 20:06 Melatonin (Melatonin) 3 mg HS PO 09/27/21 21:00 10/25/21 21:00 Metformin HCl (Glucophage) 500 mg BIDWMEALS PO 09/29/21 17:00 10/25/21 17:07 Nystatin (Nystop) 15 sulma STK-MED ONCE TP 10/04/21 09:36 10/04/21 09:36 DC Trazodone HCl (Desyrel) 50 mg HS PO 10/05/21 21:00 10/25/21 21:00 Trazodone HCl (Desyrel) 50 mg PRN QHS PRN PO INSOMNIA 10/05/21 18:15 10/18/21 23:33 Albuterol/ Ipratropium (Combivent Respimat 20-100 Mcg) 1 puff RTQID INH 10/18/21 20:00 10/25/21 21:00 Azithromycin (Zithromax) 500 mg 1X ONCE PO 10/19/21 16:45 10/19/21 16:46 DC 10/19/21 17:03 Azithromycin (Zithromax) 250 mg DAILY PO 10/20/21 09:00 10/24/21 22:00 DC 10/24/21 08:23 Lactobacillus Rhamnosus (Culturelle) 1 cap BID PO 10/21/21 09:00 10/25/21 21:00 Diclofenac Sodium (Voltaren) 1 sulma TID TP 10/24/21 14:00 10/25/21 20:59 I have reviewed the current psychotropics carefully including drug interactions. Risk benefit ratio favors no change other than as noted in my dictated progress note. Diagnosis: Problems: (1) Impulse control disorder, unspecified (2) Anxiety disorder, unspecified (3) Dementia, vascular, with depression (4) Dementia, vascular, with delusions (5) Dementia in Alzheimer's disease with depression (6) Dementia in Alzheimer's disease with delusions (7) Dementia of the Alzheimer's type with early onset with behavioral disturbance (8) Major neurocognitive disorder SOO BAIRES MD Oct 25, 2021 21:50
[2021-10-26 05:56] VITALS: BP 134/64
[2021-10-26] MEDS: LACTOBACILLUS RHAMNOSUS GG 1 CAPSULE. PO SCH ×2 (08:29→20:51)
[2021-10-26] MEDS: IPRATROPIUM/ALBUTEROL 20/100mcg/INH INHALER. INH SCH ×4 (08:29→20:51)
[2021-10-26] MEDS: metFORMIN 500 MG TABLET PO SCH ×2 (08:29→17:34)
[2021-10-26] MEDS: QUEtiapine 25 MG TABLET. PO SCH ×2 (08:29→20:51)
[2021-10-26] MEDS: DICLOFENAC SODIUM 1% TOPICAL GEL 100GM TUBE. TP SCH ×3 (08:30→20:51)
[2021-10-26] MEDS ORDERED: predniSONE 20 MG TABLET PO ONE (11:00)
[2021-10-26] MEDS: ACETAMINOPHEN 325 MG TABLET PO PRN ×2 (12:44→20:51)
[2021-10-26 15:54] VITALS: BP 152/74
[2021-10-26] MEDS: MELATONIN 3 MG TABLET PO SCH (20:51)
[2021-10-26] MEDS: SERTRALINE 50 MG TABLET. PO SCH (20:51)
[2021-10-26] MEDS: traZODone 50 MG TABLET. PO SCH (20:51)
[2021-10-26] MEDS: MIRTAZAPINE 15 MG TABLET PO SCH (20:51)
--- NOTE | 2021-10-26 21:30 | PDOC ---
Exam Note: [place] Note: Please also refer to the separate dictated note~for this date of service dictated separately.~Patient seen individually. Discussed the patient with Nursing staff reviewed the chart.~Reviewed interim history and current functioning. Reviewed vital signs,~Labs/ Radiology~and current medications noted below. Continue current treatment with the changes noted in the dictated addendum note Assessment: Vital Signs/I&O: Vital Signs Date Time Temp Pulse Resp B/P (MAP) Pulse Ox O2 Delivery O2 Flow Rate FiO2 10/26/21 15:54 97.4 83 22 152/74 (100) 96 10/26/21 05:56 Room Air 10/22/21 15:31 98.0 I & O 10/25/21 10/25/21 10/26/21 15:00 23:00 07:00 Intake Total 720 ml 480 ml Balance 720 ml 480 ml Labs: Laboratory Tests Test 10/26/21 07:43 Glucose (Fingerstick) 152 mg/dL (70-99) H Current Medications: Meds: Laboratory Tests Test 10/26/21 07:43 Glucose (Fingerstick) 152 mg/dL Current Medications Medications (Trade) Dose Ordered Sig/Richard Route PRN Reason Start Time Stop Time Status Last Admin Dose Admin Acetaminophen (Tylenol) 650 mg PRN Q6HRS PRN PO MILD PAIN / TEMP > 100.3'F 09/27/21 15:00 10/26/21 20:51 Mirtazapine (Remeron) 15 mg QHS PO 09/27/21 21:00 10/26/21 20:51 Olanzapine (ZyPREXA ZYDIS) 2.5 mg PRN Q2HRS PRN PO ANXIETY / AGITATION 09/27/21 15:00 10/19/21 21:12 Quetiapine Fumarate (SEROquel) 25 mg BID PO 09/27/21 21:00 10/26/21 20:51 Sertraline HCl (Zoloft) 50 mg HS PO 09/27/21 21:00 10/26/21 20:51 Trazodone HCl (Desyrel) 25 mg HS PO 09/27/21 21:00 10/05/21 18:14 DC 10/04/21 20:06 Melatonin (Melatonin) 3 mg HS PO 09/27/21 21:00 10/26/21 20:51 Metformin HCl (Glucophage) 500 mg BIDWMEALS PO 09/29/21 17:00 10/26/21 17:34 Nystatin (Nystop) 15 sulma STK-MED ONCE TP 10/04/21 09:36 10/04/21 09:36 DC Trazodone HCl (Desyrel) 50 mg HS PO 10/05/21 21:00 10/26/21 20:51 Trazodone HCl (Desyrel) 50 mg PRN QHS PRN PO INSOMNIA 10/05/21 18:15 10/18/21 23:33 Albuterol/ Ipratropium (Combivent Respimat 20-100 Mcg) 1 puff RTQID INH 10/18/21 20:00 10/26/21 20:51 Azithromycin (Zithromax) 500 mg 1X ONCE PO 10/19/21 16:45 10/19/21 16:46 DC 10/19/21 17:03 Azithromycin (Zithromax) 250 mg DAILY PO 10/20/21 09:00 10/24/21 22:00 DC 10/24/21 08:23 Lactobacillus Rhamnosus (Culturelle) 1 cap BID PO 10/21/21 09:00 10/26/21 20:51 Diclofenac Sodium (Voltaren) 1 sulma TID TP 10/24/21 14:00 10/26/21 20:51 Prednisone (Prednisone) 60 mg 1X ONCE PO 10/26/21 11:00 10/26/21 11:01 DC 10/26/21 12:17 Current Medications Medications (Trade) Dose Ordered Sig/Richard Route PRN Reason Start Time Stop Time Status Last Admin Dose Admin Prednisone (Prednisone) 60 mg 1X ONCE PO 10/26/21 11:00 10/26/21 11:01 DC 10/26/21 12:17 I have reviewed the current psychotropics carefully including drug interactions. Risk benefit ratio favors no change other than as noted in my dictated progress note. Diagnosis: Problems: (1) Impulse control disorder, unspecified (2) Anxiety disorder, unspecified (3) Dementia, vascular, with depression (4) Dementia, vascular, with delusions (5) Dementia in Alzheimer's disease with depression (6) Dementia in Alzheimer's disease with delusions (7) Dementia of the Alzheimer's type with early onset with behavioral disturbance (8) Major neurocognitive disorder SOO BAIRES MD Oct 26, 2021 21:30
[2021-10-27 06:07] VITALS: BP 104/69
[2021-10-27 08:38] LABS: BASO % 0 % (0-3); EOS % 0 % (0-3); HEMATOCRIT 32.5 % (36.0-47.0); HEMOGLOBIN 10.4 g/dL (12.0-15.5); LYMPH # 1.6 x10^3/uL (1.0-4.8); LYMPH % 17 % (24-48); MEAN CORPUSCULAR HEMOGLOBIN 26 pg (25-35); MEAN CORPUSCULAR HGB CONC 32 g/dL (31-37); MEAN CORPUSCULAR VOLUME 82 fL (79-100); MONO # 0.4 x10^3/uL (0.0-1.1); MONO % 4 % (0-9); NEUT # 7.3 x10^3uL (1.8-7.7); NEUT % 79 % (31-73); PLATELET COUNT 219 x10^3/uL (140-400); RED BLOOD COUNT 3.96 x10^6/uL (3.50-5.40); RED CELL DISTRIBUTION WIDTH 16.4 % (11.5-14.5); WHITE BLOOD COUNT 9.3 x10^3/uL (4.0-11.0)
[2021-10-27 08:49] LABS: ALBUMIN 2.6 g/dL (3.4-5.0); ALBUMIN/GLOBULIN RATIO 0.6 (1.0-1.7); CALCIUM 8.8 mg/dL (8.5-10.1); CREATININE 0.9 mg/dL (0.6-1.0); GFR 59.7; POTASSIUM 3.8 mmol/L (3.5-5.1); TOTAL BILIRUBIN 0.3 mg/dL (0.2-1.0); TOTAL PROTEIN 7.2 g/dL (6.4-8.2)
[2021-10-27] MEDS: QUEtiapine 25 MG TABLET. PO SCH ×2 (08:51→20:07)
[2021-10-27] MEDS: metFORMIN 500 MG TABLET PO SCH ×2 (08:51→17:02)
[2021-10-27] MEDS: LACTOBACILLUS RHAMNOSUS GG 1 CAPSULE. PO SCH ×2 (08:51→20:07)
[2021-10-27] MEDS: DICLOFENAC SODIUM 1% TOPICAL GEL 100GM TUBE. TP SCH ×3 (08:52→20:08)
[2021-10-27] MEDS: IPRATROPIUM/ALBUTEROL 20/100mcg/INH INHALER. INH SCH ×4 (08:54→20:08)
[2021-10-27 15:44] VITALS: BP 124/72
[2021-10-27] MEDS: traZODone 50 MG TABLET. PO SCH (20:07)
[2021-10-27] MEDS: MIRTAZAPINE 15 MG TABLET PO SCH (20:07)
[2021-10-27] MEDS: MELATONIN 3 MG TABLET PO SCH (20:07)
[2021-10-27] MEDS: SERTRALINE 50 MG TABLET. PO SCH (20:08)
--- NOTE | 2021-10-27 21:30 | PDOC ---
Exam Note: [place] Note: Please also refer to the separate dictated note~for this date of service dictated separately.~Patient seen individually. Discussed the patient with Nursing staff reviewed the chart.~Reviewed interim history and current functioning. Reviewed vital signs,~Labs/ Radiology~and current medications noted below. Continue current treatment with the changes noted in the dictated addendum note Assessment: Vital Signs/I&O: Vital Signs Date Time Temp Pulse Resp B/P (MAP) Pulse Ox O2 Delivery O2 Flow Rate FiO2 10/27/21 15:44 98.0 76 20 124/72 (89) 98 Room Air 10/22/21 15:31 98.0 I & O 10/26/21 10/26/21 10/27/21 15:00 23:00 07:00 Intake Total 480 ml 240 ml Balance 480 ml 240 ml Labs: Laboratory Tests Test 10/27/21 07:54 10/27/21 07:55 Glucose (Fingerstick) 219 mg/dL (70-99) H White Blood Count 9.3 x10^3/uL (4.0-11.0) Red Blood Count 3.96 x10^6/uL (3.50-5.40) Hemoglobin 10.4 g/dL (12.0-15.5) L Hematocrit 32.5 % (36.0-47.0) L Mean Corpuscular Volume 82 fL (79-100) Mean Corpuscular Hemoglobin 26 pg (25-35) Mean Corpuscular Hemoglobin Concent 32 g/dL (31-37) Red Cell Distribution Width 16.4 % (11.5-14.5) H Platelet Count 219 x10^3/uL (140-400) Neutrophils (%) (Auto) 79 % (31-73) H Lymphocytes (%) (Auto) 17 % (24-48) L Monocytes (%) (Auto) 4 % (0-9) Eosinophils (%) (Auto) 0 % (0-3) Basophils (%) (Auto) 0 % (0-3) Neutrophils # (Auto) 7.3 x10^3uL (1.8-7.7) Lymphocytes # (Auto) 1.6 x10^3/uL (1.0-4.8) Monocytes # (Auto) 0.4 x10^3/uL (0.0-1.1) Eosinophils # (Auto) 0.0 x10^3/uL (0.0-0.7) Basophils # (Auto) 0.0 x10^3/uL (0.0-0.2) Sodium Level 140 mmol/L (136-145) Potassium Level 3.8 mmol/L (3.5-5.1) Chloride Level 102 mmol/L (98-107) Carbon Dioxide Level 28 mmol/L (21-32) Anion Gap 10 (6-14) Blood Urea Nitrogen 29 mg/dL (7-20) H Creatinine 0.9 mg/dL (0.6-1.0) Estimated GFR (Cockcroft-Gault) 59.7 BUN/Creatinine Ratio 32 (6-20) H Glucose Level 226 mg/dL (70-99) H Calcium Level 8.8 mg/dL (8.5-10.1) Total Bilirubin 0.3 mg/dL (0.2-1.0) Aspartate Amino Transferase (AST) 13 U/L (15-37) L Alanine Aminotransferase (ALT) 20 U/L (14-59) Alkaline Phosphatase 118 U/L (46-116) H Total Protein 7.2 g/dL (6.4-8.2) Albumin 2.6 g/dL (3.4-5.0) L Albumin/Globulin Ratio 0.6 (1.0-1.7) L Current Medications: Meds: Laboratory Tests Test 10/27/21 07:54 10/27/21 07:55 Glucose (Fingerstick) 219 mg/dL White Blood Count 9.3 x10^3/uL Red Blood Count 3.96 x10^6/uL Hemoglobin 10.4 g/dL Hematocrit 32.5 % Mean Corpuscular Volume 82 fL Mean Corpuscular Hemoglobin 26 pg Mean Corpuscular Hemoglobin Concent 32 g/dL Red Cell Distribution Width 16.4 % Platelet Count 219 x10^3/uL Neutrophils (%) (Auto) 79 % Lymphocytes (%) (Auto) 17 % Monocytes (%) (Auto) 4 % Eosinophils (%) (Auto) 0 % Basophils (%) (Auto) 0 % Neutrophils # (Auto) 7.3 x10^3uL Lymphocytes # (Auto) 1.6 x10^3/uL Monocytes # (Auto) 0.4 x10^3/uL Eosinophils # (Auto) 0.0 x10^3/uL Basophils # (Auto) 0.0 x10^3/uL Sodium Level 140 mmol/L Potassium Level 3.8 mmol/L Chloride Level 102 mmol/L Carbon Dioxide Level 28 mmol/L Anion Gap 10 Blood Urea Nitrogen 29 mg/dL Creatinine 0.9 mg/dL Estimated GFR (Cockcroft-Gault) 59.7 BUN/Creatinine Ratio 32 Glucose Level 226 mg/dL Calcium Level 8.8 mg/dL Total Bilirubin 0.3 mg/dL Aspartate Amino Transf (AST/SGOT) 13 U/L Alanine Aminotransferase (ALT/SGPT) 20 U/L Alkaline Phosphatase 118 U/L Total Protein 7.2 g/dL Albumin 2.6 g/dL Albumin/Globulin Ratio 0.6 Current Medications Medications (Trade) Dose Ordered Sig/Richard Route PRN Reason Start Time Stop Time Status Last Admin Dose Admin Acetaminophen (Tylenol) 650 mg PRN Q6HRS PRN PO MILD PAIN / TEMP > 100.3'F 09/27/21 15:00 10/26/21 20:51 Mirtazapine (Remeron) 15 mg QHS PO 09/27/21 21:00 10/27/21 20:07 Olanzapine (ZyPREXA ZYDIS) 2.5 mg PRN Q2HRS PRN PO ANXIETY / AGITATION 09/27/21 15:00 10/27/21 17:02 Quetiapine Fumarate (SEROquel) 25 mg BID PO 09/27/21 21:00 10/27/21 20:07 Sertraline HCl (Zoloft) 50 mg HS PO 09/27/21 21:00 10/27/21 20:08 Trazodone HCl (Desyrel) 25 mg HS PO 09/27/21 21:00 10/05/21 18:14 DC 10/04/21 20:06 Melatonin (Melatonin) 3 mg HS PO 09/27/21 21:00 10/27/21 20:07 Metformin HCl (Glucophage) 500 mg BIDWMEALS PO 09/29/21 17:00 10/27/21 17:02 Nystatin (Nystop) 15 sulma STK-MED ONCE TP 10/04/21 09:36 10/04/21 09:36 DC Trazodone HCl (Desyrel) 50 mg HS PO 10/05/21 21:00 10/27/21 20:07 Trazodone HCl (Desyrel) 50 mg PRN QHS PRN PO INSOMNIA 10/05/21 18:15 10/18/21 23:33 Albuterol/ Ipratropium (Combivent Respimat 20-100 Mcg) 1 puff RTQID INH 10/18/21 20:00 10/27/21 20:08 Azithromycin (Zithromax) 500 mg 1X ONCE PO 10/19/21 16:45 10/19/21 16:46 DC 10/19/21 17:03 Azithromycin (Zithromax) 250 mg DAILY PO 10/20/21 09:00 10/24/21 22:00 DC 10/24/21 08:23 Lactobacillus Rhamnosus (Culturelle) 1 cap BID PO 10/21/21 09:00 10/27/21 20:07 Diclofenac Sodium (Voltaren) 1 sulma TID TP 10/24/21 14:00 10/27/21 20:08 Prednisone (Prednisone) 60 mg 1X ONCE PO 10/26/21 11:00 10/26/21 11:01 DC 10/26/21 12:17 I have reviewed the current psychotropics carefully including drug interactions. Risk benefit ratio favors no change other than as noted in my dictated progress note. Diagnosis: Problems: (1) Impulse control disorder, unspecified (2) Anxiety disorder, unspecified (3) Dementia, vascular, with depression (4) Dementia, vascular, with delusions (5) Dementia in Alzheimer's disease with depression (6) Dementia in Alzheimer's disease with delusions (7) Dementia of the Alzheimer's type with early onset with behavioral disturbance (8) Major neurocognitive disorder SOO BAIRES MD Oct 27, 2021 21:30
[2021-10-28 05:56] VITALS: BP 111/48
--- NOTE | 2021-10-28 07:26 | PDOC ---
Exam Note: [place] Note: This note is a late entry for 10/25/2021 covers elements not covered in my initial note. Subjective: The patient was seen individually on 10/25/2021, discussed and reviewed the chart with Nikia TANG. The patient slept 8 hours previous night. Overall the patient is doing better, less yelling. X-ray of the right hand showed no fractures. I met with her in her room. She was in a wheelchair. She still has caustic sense of humor. Review of Systems: Impaired ambulation, in wheelchair. No CV, , pulmonary, eye system symptoms on review. Mental Status Exam: The patient is oriented to herself and situation. As I entered her room she was seated facing the panoramic window but insisted that I sit down with her, quite interactive. Speech coherent. Abstraction fair. Computation impaired. Language function intact. Mood and affect withdrawn. Laboratory Data: Reviewed. Impression: Major neurocognitive disorder Alzheimer, vascular, with delusions, depression, behavioral disturbance. Anxiety disorder unspecified. Impulse control disorder unspecified. Plan: No change from initial note. Assessment: Vital Signs/I&O: Vital Signs Date Time Temp Pulse Resp B/P (MAP) Pulse Ox O2 Delivery O2 Flow Rate FiO2 10/28/21 05:56 98.0 74 18 111/48 (69) 93 10/27/21 15:44 Room Air 10/22/21 15:31 98.0 I & O 10/27/21 10/27/21 10/28/21 15:00 23:00 07:00 Intake Total 360 ml 240 ml 120 ml Balance 360 ml 240 ml 120 ml Labs: Laboratory Tests Test 10/27/21 07:54 10/27/21 07:55 Glucose (Fingerstick) 219 mg/dL (70-99) H White Blood Count 9.3 x10^3/uL (4.0-11.0) Red Blood Count 3.96 x10^6/uL (3.50-5.40) Hemoglobin 10.4 g/dL (12.0-15.5) L Hematocrit 32.5 % (36.0-47.0) L Mean Corpuscular Volume 82 fL (79-100) Mean Corpuscular Hemoglobin 26 pg (25-35) Mean Corpuscular Hemoglobin Concent 32 g/dL (31-37) Red Cell Distribution Width 16.4 % (11.5-14.5) H Platelet Count 219 x10^3/uL (140-400) Neutrophils (%) (Auto) 79 % (31-73) H Lymphocytes (%) (Auto) 17 % (24-48) L Monocytes (%) (Auto) 4 % (0-9) Eosinophils (%) (Auto) 0 % (0-3) Basophils (%) (Auto) 0 % (0-3) Neutrophils # (Auto) 7.3 x10^3uL (1.8-7.7) Lymphocytes # (Auto) 1.6 x10^3/uL (1.0-4.8) Monocytes # (Auto) 0.4 x10^3/uL (0.0-1.1) Eosinophils # (Auto) 0.0 x10^3/uL (0.0-0.7) Basophils # (Auto) 0.0 x10^3/uL (0.0-0.2) Sodium Level 140 mmol/L (136-145) Potassium Level 3.8 mmol/L (3.5-5.1) Chloride Level 102 mmol/L (98-107) Carbon Dioxide Level 28 mmol/L (21-32) Anion Gap 10 (6-14) Blood Urea Nitrogen 29 mg/dL (7-20) H Creatinine 0.9 mg/dL (0.6-1.0) Estimated GFR (Cockcroft-Gault) 59.7 BUN/Creatinine Ratio 32 (6-20) H Glucose Level 226 mg/dL (70-99) H Calcium Level 8.8 mg/dL (8.5-10.1) Total Bilirubin 0.3 mg/dL (0.2-1.0) Aspartate Amino Transferase (AST) 13 U/L (15-37) L Alanine Aminotransferase (ALT) 20 U/L (14-59) Alkaline Phosphatase 118 U/L (46-116) H Total Protein 7.2 g/dL (6.4-8.2) Albumin 2.6 g/dL (3.4-5.0) L Albumin/Globulin Ratio 0.6 (1.0-1.7) L Current Medications: I have reviewed the current psychotropics carefully including drug interactions. Risk benefit ratio favors no change other than as noted in my dictated progress note. Diagnosis: Problems: (1) Impulse control disorder, unspecified (2) Anxiety disorder, unspecified (3) Dementia, vascular, with depression (4) Dementia, vascular, with delusions (5) Dementia in Alzheimer's disease with depression (6) Dementia in Alzheimer's disease with delusions (7) Dementia of the Alzheimer's type with early onset with behavioral disturbance (8) Major neurocognitive disorder SOO BAIRES MD Oct 28, 2021 07:26
--- NOTE | 2021-10-28 07:43 | PDOC ---
Exam Note: [place] Note: This note is a late entry for 10/26/2021 covers elements not covered in my initial note. Subjective: The patient was seen individually on 10/26/2021, discussed and reviewed the chart with Joni TANG. The patient slept 8 hours previous night. She has been yelling intermittently, needs redirections but the yelling is much less than before and very intermittent and that per nursing report. Review of Systems: Impaired ambulation, in wheelchair. No CV, , pulmonary, eye system symptoms on review. Mental Status Exam: The patient is oriented to herself and situation. I met with her in her room. She was in a wheelchair, quite animated, wanted me to sit down with her. Speech coherent. She was verbal, quite forthcoming, still has a sense of humor. Abstraction fair. Computation impaired. Short-term memory is impaired. Mood and affect withdrawn. No suicidal or homicidal ideation. Laboratory Data: Reviewed. Impression: Major neurocognitive disorder Alzheimer, vascular, with delusions, depression, behavioral disturbance. Anxiety disorder unspecified. Impulse control disorder unspecified. Plan: No change from initial note. Assessment: Vital Signs/I&O: Vital Signs Date Time Temp Pulse Resp B/P (MAP) Pulse Ox O2 Delivery O2 Flow Rate FiO2 10/28/21 05:56 98.0 74 18 111/48 (69) 93 10/27/21 15:44 Room Air 10/22/21 15:31 98.0 I & O 10/27/21 10/27/21 10/28/21 15:00 23:00 07:00 Intake Total 360 ml 240 ml 120 ml Balance 360 ml 240 ml 120 ml Labs: Laboratory Tests Test 10/27/21 07:54 10/27/21 07:55 10/28/21 07:35 Glucose (Fingerstick) 219 mg/dL (70-99) H 110 mg/dL (70-99) H White Blood Count 9.3 x10^3/uL (4.0-11.0) Red Blood Count 3.96 x10^6/uL (3.50-5.40) Hemoglobin 10.4 g/dL (12.0-15.5) L Hematocrit 32.5 % (36.0-47.0) L Mean Corpuscular Volume 82 fL (79-100) Mean Corpuscular Hemoglobin 26 pg (25-35) Mean Corpuscular Hemoglobin Concent 32 g/dL (31-37) Red Cell Distribution Width 16.4 % (11.5-14.5) H Platelet Count 219 x10^3/uL (140-400) Neutrophils (%) (Auto) 79 % (31-73) H Lymphocytes (%) (Auto) 17 % (24-48) L Monocytes (%) (Auto) 4 % (0-9) Eosinophils (%) (Auto) 0 % (0-3) Basophils (%) (Auto) 0 % (0-3) Neutrophils # (Auto) 7.3 x10^3uL (1.8-7.7) Lymphocytes # (Auto) 1.6 x10^3/uL (1.0-4.8) Monocytes # (Auto) 0.4 x10^3/uL (0.0-1.1) Eosinophils # (Auto) 0.0 x10^3/uL (0.0-0.7) Basophils # (Auto) 0.0 x10^3/uL (0.0-0.2) Sodium Level 140 mmol/L (136-145) Potassium Level 3.8 mmol/L (3.5-5.1) Chloride Level 102 mmol/L (98-107) Carbon Dioxide Level 28 mmol/L (21-32) Anion Gap 10 (6-14) Blood Urea Nitrogen 29 mg/dL (7-20) H Creatinine 0.9 mg/dL (0.6-1.0) Estimated GFR (Cockcroft-Gault) 59.7 BUN/Creatinine Ratio 32 (6-20) H Glucose Level 226 mg/dL (70-99) H Calcium Level 8.8 mg/dL (8.5-10.1) Total Bilirubin 0.3 mg/dL (0.2-1.0) Aspartate Amino Transferase (AST) 13 U/L (15-37) L Alanine Aminotransferase (ALT) 20 U/L (14-59) Alkaline Phosphatase 118 U/L (46-116) H Total Protein 7.2 g/dL (6.4-8.2) Albumin 2.6 g/dL (3.4-5.0) L Albumin/Globulin Ratio 0.6 (1.0-1.7) L Current Medications: I have reviewed the current psychotropics carefully including drug interactions. Risk benefit ratio favors no change other than as noted in my dictated progress note. Diagnosis: Problems: (1) Impulse control disorder, unspecified (2) Anxiety disorder, unspecified (3) Dementia, vascular, with depression (4) Dementia, vascular, with delusions (5) Dementia in Alzheimer's disease with depression (6) Dementia in Alzheimer's disease with delusions (7) Dementia of the Alzheimer's type with early onset with behavioral disturba nce (8) Major neurocognitive disorder SOO BAIRES MD Oct 28, 2021 07:43
--- NOTE | 2021-10-28 07:56 | PDOC ---
Exam Note: [place] Note: This note is a late entry for 10/27/2021 covers elements not covered in my initial note. Subjective: The patient was seen individually on 10/27/2021, discussed and reviewed the chart with Iris TANG. The patient slept 8-3/4 hours previous night. She refused to eat lunch, resistive at dinner time, was agitated in the evening. Received Zyprexa at 5 p.m., then did better. Review of Systems: Impaired ambulation, in wheelchair. No CV, , pulmonary, eye system symptoms on review. Mental Status Exam: The patient is oriented to herself and situation. I met wi th her in the hallway, where she was seated with some other patients. She seemed to recognize me as a doctor. Speech coherent, little pressured at times but less than before. Abstraction fair. Computation impaired. Language function intact. Mood and affect withdrawn. Laboratory Data: Reviewed. Impression: Major neurocognitive disorder Alzheimer, vascular, with delusions, depression, behavioral disturbance. Anxiety disorder unspecified. Impulse control disorder unspecified. Plan: No change from initial note. Assessment: Vital Signs/I&O: Vital Signs Date Time Temp Pulse Resp B/P (MAP) Pulse Ox O2 Delivery O2 Flow Rate FiO2 10/28/21 05:56 98.0 74 18 111/48 (69) 93 10/27/21 15:44 Room Air 10/22/21 15:31 98.0 I & O 10/27/21 10/27/21 10/28/21 15:00 23:00 07:00 Intake Total 360 ml 240 ml 120 ml Balance 360 ml 240 ml 120 ml Labs: Laboratory Tests Test 10/28/21 07:35 Glucose (Fingerstick) 110 mg/dL (70-99) H Current Medications: I have reviewed the current psychotropics carefully including drug interactions. Risk benefit ratio favors no change other than as noted in my dictated progress note. Diagnosis: Problems: (1) Impulse control disorder, unspecified (2) Anxiety disorder, unspecified (3) Dementia, vascular, with depression (4) Dementia, vascular, with delusions (5) Dementia in Alzheimer's disease with depression (6) Dementia in Alzheimer's disease with delusions (7) Dementia of the Alzheimer's type with early onset with behavioral disturbance (8) Major neurocognitive disorder SOO BAIRES MD Oct 28, 2021 07:56
[2021-10-28] MEDS: metFORMIN 500 MG TABLET PO SCH ×2 (08:15→17:19)
[2021-10-28] MEDS: IPRATROPIUM/ALBUTEROL 20/100mcg/INH INHALER. INH SCH ×4 (08:15→20:16)
[2021-10-28] MEDS: QUEtiapine 25 MG TABLET. PO SCH ×2 (08:15→20:17)
[2021-10-28] MEDS: LACTOBACILLUS RHAMNOSUS GG 1 CAPSULE. PO SCH ×2 (08:15→20:17)
[2021-10-28] MEDS: DICLOFENAC SODIUM 1% TOPICAL GEL 100GM TUBE. TP SCH ×3 (08:17→20:16)
[2021-10-28 15:37] VITALS: BP 119/62
[2021-10-28] MEDS: MIRTAZAPINE 15 MG TABLET PO SCH (20:16)
[2021-10-28] MEDS: MELATONIN 3 MG TABLET PO SCH (20:17)
[2021-10-28] MEDS: SERTRALINE 50 MG TABLET. PO SCH (20:17)
[2021-10-28] MEDS: traZODone 50 MG TABLET. PO SCH (20:17)
--- NOTE | 2021-10-28 21:09 | PDOC ---
Exam Note: [place] Note: Please also refer to the separate dictated note~for this date of service dictated separately.~Patient seen individually. Discussed the patient with Nursing staff reviewed the chart.~Reviewed interim history and current functioning. Reviewed vital signs,~Labs/ Radiology~and current medications noted below. Continue current treatment with the changes noted in the dictated addendum note Assessment: Vital Signs/I&O: Vital Signs Date Time Temp Pulse Resp B/P (MAP) Pulse Ox O2 Delivery O2 Flow Rate FiO2 10/28/21 15:37 96.9 79 18 119/62 (81) 96 10/27/21 15:44 Room Air 10/22/21 15:31 98.0 I & O 10/27/21 10/27/21 10/28/21 15:00 23:00 07:00 Intake Total 360 ml 240 ml 120 ml Balance 360 ml 240 ml 120 ml Labs: Laboratory Tests Test 10/28/21 07:35 Glucose (Fingerstick) 110 mg/dL (70-99) H Current Medications: Meds: Laboratory Tests Test 10/28/21 07:35 Glucose (Fingerstick) 110 mg/dL Current Medications Medications (Trade) Dose Ordered Sig/[place] Route PRN Reason Start Time Stop Time Status Last Admin Dose Admin Acetaminophen (Tylenol) 650 mg PRN Q6HRS PRN PO MILD PAIN / TEMP > 100.3'F 09/27/21 15:00 10/26/21 20:51 Mirtazapine (Remeron) 15 mg QHS PO 09/27/21 21:00 10/28/21 20:16 Olanzapine (ZyPREXA ZYDIS) 2.5 mg PRN Q2HRS PRN PO ANXIETY / AGITATION 09/27/21 15:00 10/27/21 17:02 Quetiapine Fumarate (SEROquel) 25 mg BID PO 09/27/21 21:00 10/28/21 20:17 Sertraline HCl (Zoloft) 50 mg HS PO 09/27/21 21:00 10/28/21 20:17 Trazodone HCl (Desyrel) 25 mg HS PO 09/27/21 21:00 10/05/21 18:14 DC 10/04/21 20:06 Melatonin (Melatonin) 3 mg HS PO 09/27/21 21:00 10/28/21 20:17 Metformin HCl (Glucophage) 500 mg BIDWMEALS PO 09/29/21 17:00 10/28/21 17:19 Nystatin (Nystop) 15 sulma STK-MED ONCE TP 10/04/21 09:36 10/04/21 09:36 DC Trazodone HCl (Desyrel) 50 mg HS PO 10/05/21 21:00 10/28/21 20:17 Trazodone HCl (Desyrel) 50 mg PRN QHS PRN PO INSOMNIA 10/05/21 18:15 10/18/21 23:33 Albuterol/ Ipratropium (Combivent Respimat 20-100 Mcg) 1 puff RTQID INH 10/18/21 20:00 10/28/21 20:16 Azithromycin (Zithromax) 500 mg 1X ONCE PO 10/19/21 16:45 10/19/21 16:46 DC 10/19/21 17:03 Azithromycin (Zithromax) 250 mg DAILY PO 10/20/21 09:00 10/24/21 22:00 DC 10/24/21 08:23 Lactobacillus Rhamnosus (Culturelle) 1 cap BID PO 10/21/21 09:00 10/28/21 20:17 Diclofenac Sodium (Voltaren) 1 sulma TID TP 10/24/21 14:00 10/28/21 20:16 Prednisone (Prednisone) 60 mg 1X ONCE PO 10/26/21 11:00 10/26/21 11:01 DC 10/26/21 12:17 I have reviewed the current psychotropics carefully including drug interactions. Risk benefit ratio favors no change other than as noted in my dictated progress note. Diagnosis: Problems: (1) Impulse control disorder, unspecified (2) Anxiety disorder, unspecified (3) Dementia, vascular, with depression (4) Dementia, vascular, with delusions (5) Dementia in Alzheimer's disease with depression (6) Dementia in Alzheimer's disease with delusions (7) Dementia of the Alzheimer's type with early onset with behavioral disturbance (8) Major neurocognitive disorder SOO BAIRES MD Oct 28, 2021 21:09
[2021-10-29 06:22] VITALS: BP 150/66
[2021-10-29] MEDS: metFORMIN 500 MG TABLET PO SCH ×2 (08:03→17:10)
[2021-10-29] MEDS: QUEtiapine 25 MG TABLET. PO SCH ×2 (08:03→20:02)
[2021-10-29] MEDS: LACTOBACILLUS RHAMNOSUS GG 1 CAPSULE. PO SCH ×2 (08:03→20:02)
[2021-10-29] MEDS: IPRATROPIUM/ALBUTEROL 20/100mcg/INH INHALER. INH SCH ×4 (08:07→20:01)
[2021-10-29] MEDS: DICLOFENAC SODIUM 1% TOPICAL GEL 100GM TUBE. TP SCH ×3 (08:08→20:03)
--- NOTE | 2021-10-29 10:10 | TX PLAN ---
Interdisciplinary Tx Plan Admission Information Sep 27, 2021 at 12:55 Legal Status (on Admission): Voluntary DPOA/Guardian Name: Lucille NieceOscar Bergman Contact Other Contact Name: Jayna Sheikh Contact Verified Code Status: Full Code Allergies: Coded Allergies: No Known Drug Allergies (Unverified , 07/16/21) Diagnoses Primary Diagnosis: 1. 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 Mood disorder, unspecified. Reasons for Admission: Aggressive, Delusions, Agitated, Sig. Change Sleep, Hallucinations, Combative Problem in Patient's Words: Per pt great niece/DPOAАнна who was raised mostly by pt, pt has had a noticable decline over the past year and particularlly over the past couple of months. Up until a year ago, pt was living in her independant living apartment and out of the [place], she moved to [place], [place] and bought a house that she paid winn for. She was then found to be living in very poor conditions without running water and no utilities and overall unable to care for herself. She had a few past hospitalizations but then release to herself and then would be found again living in unsafe conditions. At one point, pt drove herself to Анна's home, but refused to come in to stay, and would only stay in her car. Анна was finally successful at gaining DPOA during one of pt's hospitalizations and also in getting her license revoked. During the past year, family and staff during the different hospitalizations discovered pt was having hallucinations and delusions that seem to continue. Анна is concerned if pt is struggling with onset of dementia or if pt is truly experiencing psychosis and might clear in the future with medication management. Additional Admission Comments: Per intake record, pt refusing UA and cath, sexually inappropriate comments to staff, not sleeping for 30 hours, combative to staff, delusions,auditory hallucinations, verbally aggressive, screaming, cussing, disruptive. Problems Active Problems: Agitation Inactive Problems: Pt has shown improvements. She is less aggressive, delusional, and combative. She, also, is sleeping better. Pt Strengths/Limitations Ability for [place]: Poor Cognitive Functioning/Ability: Poor Communication Skills/Ability: Fair Financial Resources: Fair Insight/Judgement: Poor Intellectual Ability: Fair Physical Health: Poor Social Skills: Fair Stability in Family: Fair Stability in School/Work: Fair Verbal Skills: Fair Discharge Criteria Discharge Criteria: Adequate arrangements @DC, Verbal commit med comply, Improved behavior, Improved mood/thought Other Discharge Comments: None at this time. Preliminary Discharge Plan Preliminary DC Plan: Placement Needed Special Precautions Special Precautions: Agitation/Assault, Swallowing/Choking Fall Risk: High Other Precautions (specify): Pt has a history of falls. Initial D/C Plan Pt will need placement at time of discharge. Identified Discharge Needs: None at this time. Currently Utilized Resources Currently Utilized Resources/P: Great Niece/DPOA-Анна Jj has hired and deputy prosecuting attorney to assist with guardianship. Prior to Admission: PCP-Dr. Quang Raza Facility-[facility]; contact-CHANA Cruz *Note-Pt will not return to [facility] Referrals Community Resources: None known at this time. Identified Problems/Hx/Goals Objectives/Short-Term Goals Short Term Goals: Control abnormal behavior, Dec. Aggression, Dec. Anxiety/Panic, Dec. Hallucination/Delus, Dec. Outbursts, Medication Stabilization, Monitor Med Effects, Prevent Deterioration, Promote Coping Skill Short Term Goals in Patient's: Assist with proper diagnosis of psychosis vs dementia. Interventions/Frequency Staff Interventions/Frequency&: Psychiatry to assess pt three times per week for medication management. Nursing to assess behaviors, monitor medications, and complete 15 minute checks daily. Social work to see pt at least two times weekly to aid in return to placement. Activities to encourage pt to participate in group activities daily. 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 Education: According to DPOA, pt received a high school diploma and she had some technical college. Community Follow-up PCP Community Provider/Family Inpu: Pt great nigregorio/Анна LANG, provided pt history for the development of the treatment plan. Анна is available for further information should it be needed. Treatment Plan Explained Patient/Sifter And Miller had this treatment plan explained to him/her as indicated by the signature below and has been given the opportunity to ask questions and make suggestions: Date: Patient/Sifter And Miller Signature: Status Update Update Over the past week pt has averaged 75% of meal intake and slept 8 hours. Pt still continues to take naps through the day. She has had a roommate that she has gotten along with very well. While pt remains confused and lacks insight into her condition, she has been pleasant on the unit. She did develop some inflammation in her hand and was treated for this. Pt seems to be doing better now and has no complaints at this time. Pt has participated a few times with activities and has done well with engagement. She does need some help with certain activities and is willing to accept the help. SW will continue to follow along with the APS investigation and seek placement when appropriate to do so. Treatment plan was completed on 10/28/21 and entered on 10/29/21. LINDA BLACKWELL Oct 29, 2021 10:10
[2021-10-29 16:09] VITALS: BP 133/77
[2021-10-29] MEDS: MELATONIN 3 MG TABLET PO SCH (20:02)
[2021-10-29] MEDS: MIRTAZAPINE 15 MG TABLET PO SCH (20:02)
[2021-10-29] MEDS: SERTRALINE 50 MG TABLET. PO SCH (20:02)
[2021-10-29] MEDS: traZODone 50 MG TABLET. PO SCH (20:02)
--- NOTE | 2021-10-29 21:35 | PDOC ---
Exam Note: [place] Note: Please also refer to the separate dictated note~for this date of service dictated separately.~Patient seen individually. Discussed the patient with Nursing staff reviewed the chart.~Reviewed interim history and current functioning. Reviewed vital signs,~Labs/ Radiology~and current medications noted below. Continue current treatment with the changes noted in the dictated addendum note Assessment: Vital Signs/I&O: Vital Signs Date Time Temp Pulse Resp B/P (MAP) Pulse Ox O2 Delivery O2 Flow Rate FiO2 10/29/21 16:09 98.2 73 20 133/77 (95) 99 10/29/21 06:22 Room Air I & O 10/28/21 10/28/21 10/29/21 15:00 23:00 07:00 Intake Total 5910 ml 480 ml Balance 5910 ml 480 ml Labs: Laboratory Tests Test 10/29/21 07:33 Glucose (Fingerstick) 109 mg/dL (70-99) H Current Medications: Meds: Laboratory Tests Test 10/29/21 07:33 Glucose (Fingerstick) 109 mg/dL Current Medications Medications (Trade) Dose Ordered Sig/Richard Route PRN Reason Start Time Stop Time Status Last Admin Dose Admin Acetaminophen (Tylenol) 650 mg PRN Q6HRS PRN PO MILD PAIN / TEMP > 100.3'F 09/27/21 15:00 10/26/21 20:51 Mirtazapine (Remeron) 15 mg QHS PO 09/27/21 21:00 10/29/21 20:02 Olanzapine (ZyPREXA ZYDIS) 2.5 mg PRN Q2HRS PRN PO ANXIETY / AGITATION 09/27/21 15:00 10/27/21 17:02 Quetiapine Fumarate (SEROquel) 25 mg BID PO 09/27/21 21:00 10/29/21 20:02 Sertraline HCl (Zoloft) 50 mg HS PO 09/27/21 21:00 10/29/21 20:02 Trazodone HCl (Desyrel) 25 mg HS PO 09/27/21 21:00 10/05/21 18:14 DC 10/04/21 20:06 Melatonin (Melatonin) 3 mg HS PO 09/27/21 21:00 10/29/21 20:02 Metformin HCl (Glucophage) 500 mg BIDWMEALS PO 09/29/21 17:00 10/29/21 17:10 Nystatin (Nystop) 15 sulma STK-MED ONCE TP 10/04/21 09:36 10/04/21 09:36 DC Trazodone HCl (Desyrel) 50 mg HS PO 10/05/21 21:00 10/29/21 20:02 Trazodone HCl (Desyrel) 50 mg PRN QHS PRN PO INSOMNIA 10/05/21 18:15 10/18/21 23:33 Albuterol/ Ipratropium (Combivent Respimat 20-100 Mcg) 1 puff RTQID INH 10/18/21 20:00 10/29/21 20:01 Azithromycin (Zithromax) 500 mg 1X ONCE PO 10/19/21 16:45 10/19/21 16:46 DC 10/19/21 17:03 Azithromycin (Zithromax) 250 mg DAILY PO 10/20/21 09:00 10/24/21 22:00 DC 10/24/21 08:23 Lactobacillus Rhamnosus (Culturelle) 1 cap BID PO 10/21/21 09:00 10/29/21 20:02 Diclofenac Sodium (Voltaren) 1 sulma TID TP 10/24/21 14:00 10/29/21 20:03 Prednisone (Prednisone) 60 mg 1X ONCE PO 10/26/21 11:00 10/26/21 11:01 DC 10/26/21 12:17 I have reviewed the current psychotropics carefully including drug interactions. Risk benefit ratio favors no change other than as noted in my dictated progress note. Diagnosis: Problems: (1) Impulse control disorder, unspecified (2) Anxiety disorder, unspecified (3) Dementia, vascular, with depression (4) Dementia, vascular, with delusions (5) Dementia in Alzheimer's disease with depression (6) Dementia in Alzheimer's disease with delusions (7) Dementia of the Alzheimer's type with early onset with behavioral disturbance (8) Major neurocognitive disorder SOO BAIRES MD Oct 29, 2021 21:35
[2021-10-30 06:08] VITALS: BP 152/71
--- NOTE | 2021-10-30 06:48 | PDOC ---
Exam Note: [place] Note: This note is a late entry for 10/28/2021 covers elements not covered in my initial note. Subjective: The patient was reviewed at treatment team meeting in the morning on 10/28/2021 with Katherine Moreno, Eliza Muniz, and Stephani Curry (social work professor), Martina, activity therapy, Liya TANG, discussed and reviewed the chart. Reviewed the patients progress, psychotropic medications and diagnoses. Also discussed with Iris TANG in the evening. At times the patient refused to get up in the morning for breakfast. Blood sugars were elevated the day before. She has attended 3 groups, yelling out at times at night, otherwise pleasant. She continues to have a rather sharp sense of humor. Review of Systems: Impaired ambulation, in wheelchair. No CV, , pulmonary, eye system symptoms on review. Mental Status Exam: The patient is oriented to herself and situation. Speech coherent. Abstraction fair. Computation impaired. Language function intact. Attention span short. Mood and affect at times somewhat anxious, labile. No suicidal or homicidal ideation. Laboratory Data: Reviewed. Impression: Major neurocognitive disorder Alzheimer, vascular, with delusions, depression, behavioral disturbance. Anxiety disorder unspecified. Impulse control disorder unspecified. Plan: Continue current psychotropics. We may adjust her Seroquel if mood lability persists, but for now we will leave it unchanged. Reviewed drug interactions and risk-benefit ratio. Assessment: Vital Signs/I&O: Vital Signs Date Time Temp Pulse Resp B/P (MAP) Pulse Ox O2 Delivery O2 Flow Rate FiO2 10/30/21 06:08 97.3 67 22 152/71 (98) 95 10/29/21 06:22 Room Air I & O 10/29/21 10/29/21 10/30/21 15:00 23:00 07:00 Intake Total 720 ml 120 ml Balance 720 ml 120 ml Labs: Laboratory Tests Test 10/29/21 07:33 Glucose (Fingerstick) 109 mg/dL (70-99) H Current Medications: I have reviewed the current psychotropics carefully including drug interactions. Risk benefit ratio favors no change other than as noted in my dictated progress note. Diagnosis: Problems: (1) Impulse control disorder, unspecified (2) Anxiety disorder, unspecified (3) Dementia, vascular, with depression (4) Dementia, vascular, with delusions (5) Dementia in Alzheimer's disease with depression (6) Dementia in Alzheimer's disease with delusions (7) Dementia of the Alzheimer's type with early onset with behavioral disturbance (8) Major neurocognitive disorder SOO BAIRES MD Oct 30, 2021 06:48
--- NOTE | 2021-10-30 07:00 | PDOC ---
Exam Note: [place] Note: This note is a late entry for 10/29/2021 covers elements not covered in my initial note. Subjective: The patient was seen individually on 10/29/2021, discussed and reviewed the chart with Liya TANG. I met with her in her room. She was in a wheelchair trying to put one hand into the other arm sleeve because she felt cold. Nursing staff is going to provide her an extra cover. Otherwise she has been cooperative. Review of Systems: Ambulation impaired, in wheelchair. No CV, , pulmonary, eye, ENT system symptoms on review. Mental Status Exam: The patient is oriented to herself and situation. Insight and judgment, recent and remote memory, attention and concentration, fund of knowledge is poor consistent with her diagnoses. As before she does have a sense of humor rather caustic nevertheless. Laboratory Data: Reviewed. Impression: Major neurocognitive disorder Alzheimer, vascular, with delusions, depression, behavioral disturbance. Anxiety disorder unspecified. Impulse control disorder unspecified. Plan: Continue current psychotropics. Assessment: Vital Signs/I&O: Vital Signs Date Time Temp Pulse Resp B/P (MAP) Pulse Ox O2 Delivery O2 Flow Rate FiO2 10/30/21 06:08 97.3 67 22 152/71 (98) 95 10/29/21 06:22 Room Air I & O 10/29/21 10/29/21 10/30/21 14:59 22:59 06:59 Intake Total 720 ml 120 ml Balance 720 ml 120 ml Labs: Laboratory Tests Test 10/29/21 07:33 Glucose (Fingerstick) 109 mg/dL (70-99) H Current Medications: I have reviewed the current psychotropics carefully including drug interactions. Risk benefit ratio favors no change other than as noted in my dictated progress note. Diagnosis: Problems: (1) Impulse control disorder, unspecified (2) Anxiety disorder, unspecified (3) Dementia, vascular, with depression (4) Dementia, vascular, with delusions (5) Dementia in Alzheimer's disease with depression (6) Dementia in Alzheimer's disease with delusions (7) Dementia of the Alzheimer's type with early onset with behavioral disturbance (8) Major neurocognitive disorder SOO BAIRES MD Oct 30, 2021 07:00
[2021-10-30] MEDS: IPRATROPIUM/ALBUTEROL 20/100mcg/INH INHALER. INH SCH ×4 (08:08→20:27)
[2021-10-30] MEDS: LACTOBACILLUS RHAMNOSUS GG 1 CAPSULE. PO SCH ×2 (08:09→20:25)
[2021-10-30] MEDS: QUEtiapine 25 MG TABLET. PO SCH ×2 (08:09→20:26)
[2021-10-30] MEDS: metFORMIN 500 MG TABLET PO SCH ×2 (08:09→17:00)
[2021-10-30] MEDS: DICLOFENAC SODIUM 1% TOPICAL GEL 100GM TUBE. TP SCH ×3 (09:00→20:27)
[2021-10-30 15:32] VITALS: BP 123/61
[2021-10-30] MEDS: MELATONIN 3 MG TABLET PO SCH (20:25)
[2021-10-30] MEDS: MIRTAZAPINE 15 MG TABLET PO SCH (20:25)
[2021-10-30] MEDS: SERTRALINE 50 MG TABLET. PO SCH (20:26)
[2021-10-30] MEDS: traZODone 50 MG TABLET. PO SCH (20:26)
--- NOTE | 2021-10-30 21:27 | PDOC ---
Exam Note: [place] Note: Please also refer to the separate dictated note~for this date of service dictated separately.~Patient seen individually. Discussed the patient with Nursing staff reviewed the chart.~Reviewed interim history and current functioning. Reviewed vital signs,~Labs/ Radiology~and current medications noted below. Continue current treatment with the changes noted in the dictated addendum note Assessment: Vital Signs/I&O: Vital Signs Date Time Temp Pulse Resp B/P (MAP) Pulse Ox O2 Delivery O2 Flow Rate FiO2 10/30/21 15:32 97.8 76 20 123/61 (81) 98 Room Air I & O 10/29/21 10/29/21 10/30/21 15:00 23:00 07:00 Intake Total 720 ml 120 ml Balance 720 ml 120 ml Labs: Laboratory Tests Test 10/30/21 07:51 Glucose (Fingerstick) 110 mg/dL (70-99) H Current Medications: Meds: Laboratory Tests Test 10/30/21 07:51 Glucose (Fingerstick) 110 mg/dL Current Medications Medications (Trade) Dose Ordered Sig/Richard Route PRN Reason Start Time Stop Time Status Last Admin Dose Admin Acetaminophen (Tylenol) 650 mg PRN Q6HRS PRN PO MILD PAIN / TEMP > 100.3'F 09/27/21 15:00 10/26/21 20:51 Mirtazapine (Remeron) 15 mg QHS PO 09/27/21 21:00 10/30/21 20:25 Olanzapine (ZyPREXA ZYDIS) 2.5 mg PRN Q2HRS PRN PO ANXIETY / AGITATION 09/27/21 15:00 10/27/21 17:02 Quetiapine Fumarate (SEROquel) 25 mg BID PO 09/27/21 21:00 10/30/21 20:26 Sertraline HCl (Zoloft) 50 mg HS PO 09/27/21 21:00 10/30/21 20:26 Trazodone HCl (Desyrel) 25 mg HS PO 09/27/21 21:00 10/05/21 18:14 DC 10/04/21 20:06 Melatonin (Melatonin) 3 mg HS PO 09/27/21 21:00 10/30/21 20:25 Metformin HCl (Glucophage) 500 mg BIDWMEALS PO 09/29/21 17:00 10/30/21 17:00 Nystatin (Nystop) 15 sulma STK-MED ONCE TP 10/04/21 09:36 10/04/21 09:36 DC Trazodone HCl (Desyrel) 50 mg HS PO 10/05/21 21:00 10/30/21 20:26 Trazodone HCl (Desyrel) 50 mg PRN QHS PRN PO INSOMNIA 10/05/21 18:15 10/18/21 23:33 Albuterol/ Ipratropium (Combivent Respimat 20-100 Mcg) 1 puff RTQID INH 10/18/21 20:00 10/30/21 20:27 Azithromycin (Zithromax) 500 mg 1X ONCE PO 10/19/21 16:45 10/19/21 16:46 DC 10/19/21 17:03 Azithromycin (Zithromax) 250 mg DAILY PO 10/20/21 09:00 10/24/21 22:00 DC 10/24/21 08:23 Lactobacillus Rhamnosus (Culturelle) 1 cap BID PO 10/21/21 09:00 10/30/21 20:25 Diclofenac Sodium (Voltaren) 1 sulma TID TP 10/24/21 14:00 10/30/21 20:27 Prednisone (Prednisone) 60 mg 1X ONCE PO 10/26/21 11:00 10/26/21 11:01 DC 10/26/21 12:17 I have reviewed the current psychotropics carefully including drug interactions. Risk benefit ratio favors no change other than as noted in my dictated progress note. Diagnosis: Problems: (1) Impulse control disorder, unspecified (2) Anxiety disorder, unspecified (3) Dementia, vascular, with depression (4) Dementia, vascular, with delusions (5) Dementia in Alzheimer's disease with depression (6) Dementia in Alzheimer's disease with delusions (7) Dementia of the Alzheimer's type with early onset with behavioral disturbanc e (8) Major neurocognitive disorder SOO BAIRES MD Oct 30, 2021 21:27
[2021-10-31 06:04] VITALS: BP 128/69
[2021-10-31] MEDS: IPRATROPIUM/ALBUTEROL 20/100mcg/INH INHALER. INH SCH ×4 (07:37→20:21)
[2021-10-31] MEDS: LACTOBACILLUS RHAMNOSUS GG 1 CAPSULE. PO SCH ×2 (08:16→20:20)
[2021-10-31] MEDS: metFORMIN 500 MG TABLET PO SCH ×2 (08:16→17:18)
[2021-10-31] MEDS: QUEtiapine 25 MG TABLET. PO SCH ×2 (08:16→20:20)
[2021-10-31] MEDS: DICLOFENAC SODIUM 1% TOPICAL GEL 100GM TUBE. TP SCH ×3 (09:00→20:21)
[2021-10-31 15:58] VITALS: BP 143/59
[2021-10-31] MEDS: MELATONIN 3 MG TABLET PO SCH (20:19)
[2021-10-31] MEDS: traZODone 50 MG TABLET. PO SCH (20:20)
[2021-10-31] MEDS: SERTRALINE 50 MG TABLET. PO SCH (20:20)
[2021-10-31] MEDS: MIRTAZAPINE 15 MG TABLET PO SCH (20:20)
--- NOTE | 2021-10-31 21:27 | PDOC ---
Exam Note: [place] Note: Please also refer to the separate dictated note~for this date of service dictated separately.~Patient seen individually. Discussed the patient with Nursing staff reviewed the chart.~Reviewed interim history and current functioning. Reviewed vital signs,~Labs/ Radiology~and current medications noted below. Continue current treatment with the changes noted in the dictated addendum note Assessment: Vital Signs/I&O: Vital Signs Date Time Temp Pulse Resp B/P (MAP) Pulse Ox O2 Delivery O2 Flow Rate FiO2 10/31/21 15:58 98.6 87 18 143/59 (87) 99 10/30/21 15:32 Room Air I & O 10/30/21 10/30/21 10/31/21 14:59 22:59 06:59 Intake Total 240 ml 840 ml Balance 240 ml 840 ml Labs: Laboratory Tests Test 10/31/21 07:45 Glucose (Fingerstick) 106 mg/dL (70-99) H Current Medications: Meds: Laboratory Tests Test 10/31/21 07:45 Glucose (Fingerstick) 106 mg/dL Current Medications Medications (Trade) Dose Ordered Sig/Richard Route PRN Reason Start Time Stop Time Status Last Admin Dose Admin Acetaminophen (Tylenol) 650 mg PRN Q6HRS PRN PO MILD PAIN / TEMP > 100.3'F 09/27/21 15:00 10/26/21 20:51 Mirtazapine (Remeron) 15 mg QHS PO 09/27/21 21:00 10/31/21 20:20 Olanzapine (ZyPREXA ZYDIS) 2.5 mg PRN Q2HRS PRN PO ANXIETY / AGITATION 09/27/21 15:00 10/27/21 17:02 Quetiapine Fumarate (SEROquel) 25 mg BID PO 09/27/21 21:00 10/31/21 20:20 Sertraline HCl (Zoloft) 50 mg HS PO 09/27/21 21:00 10/31/21 20:20 Trazodone HCl (Desyrel) 25 mg HS PO 09/27/21 21:00 10/05/21 18:14 DC 10/04/21 20:06 Melatonin (Melatonin) 3 mg HS PO 09/27/21 21:00 10/31/21 20:19 Metformin HCl (Glucophage) 500 mg BIDWMEALS PO 09/29/21 17:00 10/31/21 17:18 Nystatin (Nystop) 15 sulma STK-MED ONCE TP 10/04/21 09:36 10/04/21 09:36 DC Trazodone HCl (Desyrel) 50 mg HS PO 10/05/21 21:00 10/31/21 20:20 Trazodone HCl (Desyrel) 50 mg PRN QHS PRN PO INSOMNIA 10/05/21 18:15 10/18/21 23:33 Albuterol/ Ipratropium (Combivent Respimat 20-100 Mcg) 1 puff RTQID INH 10/18/21 20:00 10/31/21 20:21 Azithromycin (Zithromax) 500 mg 1X ONCE PO 10/19/21 16:45 10/19/21 16:46 DC 10/19/21 17:03 Azithromycin (Zithromax) 250 mg DAILY PO 10/20/21 09:00 10/24/21 22:00 DC 10/24/21 08:23 Lactobacillus Rhamnosus (Culturelle) 1 cap BID PO 10/21/21 09:00 10/31/21 20:20 Diclofenac Sodium (Voltaren) 1 sulma TID TP 10/24/21 14:00 10/31/21 20:21 Prednisone (Prednisone) 60 mg 1X ONCE PO 10/26/21 11:00 10/26/21 11:01 DC 10/26/21 12:17 I have reviewed the current psychotropics carefully including drug interactions. Risk benefit ratio favors no change other than as noted in my dictated progress note. Diagnosis: Problems: (1) Impulse control disorder, unspecified (2) Anxiety disorder, unspecified (3) Dementia, vascular, with depression (4) Dementia, vascular, with delusions (5) Dementia in Alzheimer's disease with depression (6) Dementia in Alzheimer's disease with delusions (7) Dementia of the Alzheimer's type with early onset with behavioral disturbance (8) Major neurocognitive disorder SOO BAIRES MD Oct 31, 2021 21:27
[2021-11-01 06:16] VITALS: BP 114/77
--- NOTE | 2021-11-01 07:06 | PDOC ---
Exam Note: [place] Note: This note is a late entry for 10/30/2021 covers elements not covered in my initial note. Subjective: The patient was seen individually on 10/30/2021, discussed and reviewed the chart with Ester TANG. The patient slept 6-3/4 hours previous night. She has been cooperative with caustic sense of humor. I met with her in her room. Review of Systems: Ambulation impaired, in wheelchair. No CV, , pulmonary, eye, ENT system symptoms on review. Mental Status Exam: The patient is oriented to herself and situation. Insight and judgment, recent and remote memory, attention and concentration, fund of knowledge is poor consistent with her diagnoses. Laboratory Data: Reviewed. Impression: Major neurocognitive disorder Alzheimer, vascular, with delusions, depression, behavioral disturbance. Anxiety disorder unspecified. Impulse control disorder unspecified. Plan: Continue current psychotropics. Assessment: Vital Signs/I&O: Vital Signs Date Time Temp Pulse Resp B/P (MAP) Pulse Ox O2 Delivery O2 Flow Rate FiO2 11/01/21 06:16 97.2 87 16 114/77 (89) 97 10/30/21 15:32 Room Air I & O 10/31/21 10/31/21 11/01/21 15:00 23:00 07:00 Intake Total 480 ml 720 ml Balance 480 ml 720 ml Labs: Laboratory Tests Test 10/31/21 07:45 Glucose (Fingerstick) 106 mg/dL (70-99) H Current Medications: I have reviewed the current psychotropics carefully including drug interactions. Risk benefit ratio favors no change other than as noted in my dictated progress note. Diagnosis: Problems: (1) Impulse control disorder, unspecified (2) Anxiety disorder, unspecified (3) Dementia, vascular, with depression (4) Dementia, vascular, with delusions (5) Dementia in Alzheimer's disease with depression (6) Dementia in Alzheimer's disease with delusions (7) Dementia of the Alzheimer's type with early onset with behavioral disturbance (8) Major neurocognitive disorder SOO BAIRES MD Nov 01, 2021 07:06
[2021-11-01] MEDS: IPRATROPIUM/ALBUTEROL 20/100mcg/INH INHALER. INH SCH ×4 (07:47→20:00)
[2021-11-01] MEDS: metFORMIN 500 MG TABLET PO SCH ×2 (08:05→17:30)
[2021-11-01] MEDS: QUEtiapine 25 MG TABLET. PO SCH ×2 (08:05→20:13)
[2021-11-01] MEDS: LACTOBACILLUS RHAMNOSUS GG 1 CAPSULE. PO SCH ×2 (08:05→20:14)
[2021-11-01] MEDS: DICLOFENAC SODIUM 1% TOPICAL GEL 100GM TUBE. TP SCH ×3 (09:00→20:14)
[2021-11-01 15:32] VITALS: BP 145/78
[2021-11-01] MEDS: SERTRALINE 50 MG TABLET. PO SCH (20:13)
[2021-11-01] MEDS: MIRTAZAPINE 15 MG TABLET PO SCH (20:13)
[2021-11-01] MEDS: traZODone 50 MG TABLET. PO SCH (20:13)
[2021-11-01] MEDS: MELATONIN 3 MG TABLET PO SCH (20:13)
--- NOTE | 2021-11-01 21:15 | PDOC ---
Exam Note: [place] Note: Please also refer to the separate dictated note~for this date of service dictated separately.~Patient seen individually. Discussed the patient with Nursing staff reviewed the chart.~Reviewed interim history and current functioning. Reviewed vital signs,~Labs/ Radiology~and current medications noted below. Continue current treatment with the changes noted in the dictated addendum note Assessment: Vital Signs/I&O: Vital Signs Date Time Temp Pulse Resp B/P (MAP) Pulse Ox O2 Delivery O2 Flow Rate FiO2 11/01/21 15:32 98.2 72 14 145/78 (100) 97 Room Air I & O 10/31/21 10/31/21 11/01/21 15:00 23:00 07:00 Intake Total 480 ml 720 ml Balance 480 ml 720 ml Labs: Laboratory Tests Test 11/01/21 07:47 Glucose (Fingerstick) 127 mg/dL (70-99) H Current Medications: Meds: Laboratory Tests Test 11/01/21 07:47 Glucose (Fingerstick) 127 mg/dL Current Medications Medications (Trade) Dose Ordered Sig/Richard Route PRN Reason Start Time Stop Time Status Last Admin Dose Admin Acetaminophen (Tylenol) 650 mg PRN Q6HRS PRN PO MILD PAIN / TEMP > 100.3'F 09/27/21 15:00 10/26/21 20:51 Mirtazapine (Remeron) 15 mg QHS PO 09/27/21 21:00 11/01/21 20:13 Olanzapine (ZyPREXA ZYDIS) 2.5 mg PRN Q2HRS PRN PO ANXIETY / AGITATION 09/27/21 15:00 10/27/21 17:02 Quetiapine Fumarate (SEROquel) 25 mg BID PO 09/27/21 21:00 11/01/21 20:13 Sertraline HCl (Zoloft) 50 mg HS PO 09/27/21 21:00 11/01/21 20:13 Trazodone HCl (Desyrel) 25 mg HS PO 09/27/21 21:00 10/05/21 18:14 DC 10/04/21 20:06 Melatonin (Melatonin) 3 mg HS PO 09/27/21 21:00 11/01/21 20:13 Metformin HCl (Glucophage) 500 mg BIDWMEALS PO 09/29/21 17:00 11/01/21 17:30 Nystatin (Nystop) 15 sulma STK-MED ONCE TP 10/04/21 09:36 10/04/21 09:36 DC Trazodone HCl (Desyrel) 50 mg HS PO 10/05/21 21:00 11/01/21 20:13 Trazodone HCl (Desyrel) 50 mg PRN QHS PRN PO INSOMNIA 10/05/21 18:15 10/18/21 23:33 Albuterol/ Ipratropium (Combivent Respimat 20-100 Mcg) 1 puff RTQID INH 10/18/21 20:00 11/01/21 16:50 Azithromycin (Zithromax) 500 mg 1X ONCE PO 10/19/21 16:45 10/19/21 16:46 DC 10/19/21 17:03 Azithromycin (Zithromax) 250 mg DAILY PO 10/20/21 09:00 10/24/21 22:00 DC 10/24/21 08:23 Lactobacillus Rhamnosus (Culturelle) 1 cap BID PO 10/21/21 09:00 11/01/21 20:14 Diclofenac Sodium (Voltaren) 1 sulma TID TP 10/24/21 14:00 11/01/21 20:14 Prednisone (Prednisone) 60 mg 1X ONCE PO 10/26/21 11:00 10/26/21 11:01 DC 10/26/21 12:17 I have reviewed the current psychotropics carefully including drug interactions. Risk benefit ratio favors no change other than as noted in my dictated progress note. Diagnosis: Problems: (1) Impulse control disorder, unspecified (2) Anxiety disorder, unspecified (3) Dementia, vascular, with depression (4) Dementia, vascular, with delusions (5) Dementia in Alzheimer's disease with depression (6) Dementia in Alzheimer's disease with delusions (7) Dementia of the Alzheimer's type with early onset with behavioral disturban ce (8) Major neurocognitive disorder SOO BAIRES MD Nov 01, 2021 21:15
[2021-11-02 06:14] VITALS: BP 155/75
[2021-11-02] MEDS: QUEtiapine 25 MG TABLET. PO SCH ×2 (08:30→20:31)
[2021-11-02] MEDS: metFORMIN 500 MG TABLET PO SCH ×2 (08:30→17:01)
[2021-11-02] MEDS: LACTOBACILLUS RHAMNOSUS GG 1 CAPSULE. PO SCH ×2 (08:30→20:31)
[2021-11-02] MEDS: IPRATROPIUM/ALBUTEROL 20/100mcg/INH INHALER. INH SCH ×4 (08:31→20:32)
[2021-11-02] MEDS: DICLOFENAC SODIUM 1% TOPICAL GEL 100GM TUBE. TP SCH ×3 (08:34→20:32)
[2021-11-02 15:36] VITALS: BP 128/66
[2021-11-02] MEDS: SERTRALINE 50 MG TABLET. PO SCH (20:31)
[2021-11-02] MEDS: MIRTAZAPINE 15 MG TABLET PO SCH (20:31)
[2021-11-02] MEDS: traZODone 50 MG TABLET. PO SCH (20:31)
[2021-11-02] MEDS: MELATONIN 3 MG TABLET PO SCH (20:31)
--- NOTE | 2021-11-02 21:51 | PDOC ---
Exam Note: [place] Note: Please also refer to the separate dictated note~for this date of service dictated separately.~Patient seen individually. Discussed the patient with Nursing staff reviewed the chart.~Reviewed interim history and current functioning. Reviewed vital signs,~Labs/ Radiology~and current medications noted below. Continue current treatment with the changes noted in the dictated addendum note Assessment: Vital Signs/I&O: Vital Signs Date Time Temp Pulse Resp B/P (MAP) Pulse Ox O2 Delivery O2 Flow Rate FiO2 11/02/21 15:36 98.0 80 16 128/66 (86) 97 11/02/21 06:14 Room Air I & O 11/01/21 11/01/21 11/02/21 15:00 23:00 07:00 Intake Total 600 ml 480 ml Balance 600 ml 480 ml Labs: Laboratory Tests Test 11/02/21 07:37 Glucose (Fingerstick) 106 mg/dL (70-99) H Current Medications: Meds: Laboratory Tests Test 11/02/21 07:37 Glucose (Fingerstick) 106 mg/dL Current Medications Medications (Trade) Dose Ordered Sig/Richard Route PRN Reason Start Time Stop Time Status Last Admin Dose Admin Acetaminophen (Tylenol) 650 mg PRN Q6HRS PRN PO MILD PAIN / TEMP > 100.3'F 09/27/21 15:00 10/26/21 20:51 Mirtazapine (Remeron) 15 mg QHS PO 09/27/21 21:00 11/02/21 20:31 Olanzapine (ZyPREXA ZYDIS) 2.5 mg PRN Q2HRS PRN PO ANXIETY / AGITATION 09/27/21 15:00 10/27/21 17:02 Quetiapine Fumarate (SEROquel) 25 mg BID PO 09/27/21 21:00 11/02/21 20:31 Sertraline HCl (Zoloft) 50 mg HS PO 09/27/21 21:00 11/02/21 20:31 Trazodone HCl (Desyrel) 25 mg HS PO 09/27/21 21:00 10/05/21 18:14 DC 10/04/21 20:06 Melatonin (Melatonin) 3 mg HS PO 09/27/21 21:00 11/02/21 20:31 Metformin HCl (Glucophage) 500 mg BIDWMEALS PO 09/29/21 17:00 11/02/21 17:01 Nystatin (Nystop) 15 sulma STK-MED ONCE TP 10/04/21 09:36 10/04/21 09:36 DC Trazodone HCl (Desyrel) 50 mg HS PO 10/05/21 21:00 11/02/21 20:31 Trazodone HCl (Desyrel) 50 mg PRN QHS PRN PO INSOMNIA 10/05/21 18:15 10/18/21 23:33 Albuterol/ Ipratropium (Combivent Respimat 20-100 Mcg) 1 puff RTQID INH 10/18/21 20:00 11/02/21 20:32 Azithromycin (Zithromax) 500 mg 1X ONCE PO 10/19/21 16:45 10/19/21 16:46 DC 10/19/21 17:03 Azithromycin (Zithromax) 250 mg DAILY PO 10/20/21 09:00 10/24/21 22:00 DC 10/24/21 08:23 Lactobacillus Rhamnosus (Culturelle) 1 cap BID PO 10/21/21 09:00 11/02/21 20:31 Diclofenac Sodium (Voltaren) 1 sulma TID TP 10/24/21 14:00 11/02/21 20:32 Prednisone (Prednisone) 60 mg 1X ONCE PO 10/26/21 11:00 10/26/21 11:01 DC 10/26/21 12:17 I have reviewed the current psychotropics carefully including drug interactions. Risk benefit ratio favors no change other than as noted in my dictated progress note. Diagnosis: Problems: (1) Impulse control disorder, unspecified (2) Anxiety disorder, unspecified (3) Dementia, vascular, with depression (4) Dementia, vascular, with delusions (5) Dementia in Alzheimer's disease with depression (6) Dementia in Alzheimer's disease with delusions (7) Dementia of the Alzheimer's type with early onset with behavioral disturbance (8) Major neurocognitive disorder SOO BAIRES MD Nov 02, 2021 21:51
[2021-11-03 05:51] VITALS: BP 131/61
[2021-11-03] MEDS: IPRATROPIUM/ALBUTEROL 20/100mcg/INH INHALER. INH SCH ×4 (08:00→19:48)
[2021-11-03 08:06] LABS: BASO % 1 % (0-3); EOS # 0.4 x10^3/uL (0.0-0.7); EOS % 5 % (0-3); HEMATOCRIT 32.9 % (36.0-47.0); HEMOGLOBIN 10.6 g/dL (12.0-15.5); LYMPH # 2.5 x10^3/uL (1.0-4.8); LYMPH % 32 % (24-48); MEAN CORPUSCULAR HEMOGLOBIN 26 pg (25-35); MEAN CORPUSCULAR HGB CONC 32 g/dL (31-37); MEAN CORPUSCULAR VOLUME 82 fL (79-100); MONO # 0.4 x10^3/uL (0.0-1.1); MONO % 5 % (0-9); NEUT # 4.4 x10^3uL (1.8-7.7); NEUT % 57 % (31-73); PLATELET COUNT 274 x10^3/uL (140-400); RED BLOOD COUNT 4.02 x10^6/uL (3.50-5.40); RED CELL DISTRIBUTION WIDTH 16.9 % (11.5-14.5); WHITE BLOOD COUNT 7.7 x10^3/uL (4.0-11.0)
[2021-11-03] MEDS: QUEtiapine 25 MG TABLET. PO SCH ×2 (08:08→19:47)
[2021-11-03] MEDS: LACTOBACILLUS RHAMNOSUS GG 1 CAPSULE. PO SCH ×2 (08:08→19:47)
[2021-11-03] MEDS: metFORMIN 500 MG TABLET PO SCH ×2 (08:09→17:13)
[2021-11-03 08:22] LABS: ALBUMIN 2.7 g/dL (3.4-5.0); ALBUMIN/GLOBULIN RATIO 0.6 (1.0-1.7); CALCIUM 8.9 mg/dL (8.5-10.1); CREATININE 0.9 mg/dL (0.6-1.0); GFR 59.7; POTASSIUM 4.5 mmol/L (3.5-5.1); TOTAL BILIRUBIN 0.2 mg/dL (0.2-1.0); TOTAL PROTEIN 7.2 g/dL (6.4-8.2)
[2021-11-03] MEDS: DICLOFENAC SODIUM 1% TOPICAL GEL 100GM TUBE. TP SCH ×3 (09:00→19:48)
[2021-11-03 15:24] VITALS: BP 129/60
[2021-11-03] MEDS: traZODone 50 MG TABLET. PO SCH (19:47)
[2021-11-03] MEDS: SERTRALINE 50 MG TABLET. PO SCH (19:47)
[2021-11-03] MEDS: MELATONIN 3 MG TABLET PO SCH (19:47)
[2021-11-03] MEDS: MIRTAZAPINE 15 MG TABLET PO SCH (19:47)
--- NOTE | 2021-11-03 22:19 | PDOC ---
Exam Note: [place] Note: Please also refer to the separate dictated note~for this date of service dictated separately.~Patient seen individually. Discussed the patient with Nursing staff reviewed the chart.~Reviewed interim history and current functioning. Reviewed vital signs,~Labs/ Radiology~and current medications noted below. Continue current treatment with the changes noted in the dictated addendum note Assessment: Vital Signs/I&O: Vital Signs Date Time Temp Pulse Resp B/P (MAP) Pulse Ox O2 Delivery O2 Flow Rate FiO2 11/03/21 15:24 97.9 71 18 129/60 (83) 98 11/02/21 06:14 Room Air I & O 11/02/21 11/02/21 11/03/21 15:00 23:00 07:00 Intake Total 720 ml 680 ml Balance 720 ml 680 ml Labs: Laboratory Tests Test 11/03/21 07:35 11/03/21 07:45 Glucose (Fingerstick) 104 mg/dL (70-99) H White Blood Count 7.7 x10^3/uL (4.0-11.0) Red Blood Count 4.02 x10^6/uL (3.50-5.40) Hemoglobin 10.6 g/dL (12.0-15.5) L Hematocrit 32.9 % (36.0-47.0) L Mean Corpuscular Volume 82 fL (79-100) Mean Corpuscular Hemoglobin 26 pg (25-35) Mean Corpuscular Hemoglobin Concent 32 g/dL (31-37) Red Cell Distribution Width 16.9 % (11.5-14.5) H Platelet Count 274 x10^3/uL (140-400) Neutrophils (%) (Auto) 57 % (31-73) Lymphocytes (%) (Auto) 32 % (24-48) Monocytes (%) (Auto) 5 % (0-9) Eosinophils (%) (Auto) 5 % (0-3) H Basophils (%) (Auto) 1 % (0-3) Neutrophils # (Auto) 4.4 x10^3uL (1.8-7.7) Lymphocytes # (Auto) 2.5 x10^3/uL (1.0-4.8) Monocytes # (Auto) 0.4 x10^3/uL (0.0-1.1) Eosinophils # (Auto) 0.4 x10^3/uL (0.0-0.7) Basophils # (Auto) 0.0 x10^3/uL (0.0-0.2) Sodium Level 140 mmol/L (136-145) Potassium Level 4.5 mmol/L (3.5-5.1) Chloride Level 105 mmol/L (98-107) Carbon Dioxide Level 27 mmol/L (21-32) Anion Gap 8 (6-14) Blood Urea Nitrogen 29 mg/dL (7-20) H Creatinine 0.9 mg/dL (0.6-1.0) Estimated GFR (Cockcroft-Gault) 59.7 BUN/Creatinine Ratio 32 (6-20) H Glucose Level 117 mg/dL (70-99) H Calcium Level 8.9 mg/dL (8.5-10.1) Total Bilirubin 0.2 mg/dL (0.2-1.0) Aspartate Amino Transferase (AST) 17 U/L (15-37) Alanine Aminotransferase (ALT) 19 U/L (14-59) Alkaline Phosphatase 120 U/L (46-116) H Total Protein 7.2 g/dL (6.4-8.2) Albumin 2.7 g/dL (3.4-5.0) L Albumin/Globulin Ratio 0.6 (1.0-1.7) L Current Medications: Meds: Laboratory Tests Test 11/03/21 07:35 11/03/21 07:45 Glucose (Fingerstick) 104 mg/dL White Blood Count 7.7 x10^3/uL Red Blood Count 4.02 x10^6/uL Hemoglobin 10.6 g/dL Hematocrit 32.9 % Mean Corpuscular Volume 82 fL Mean Corpuscular Hemoglobin 26 pg Mean Corpuscular Hemoglobin Concent 32 g/dL Red Cell Distribution Width 16.9 % Platelet Count 274 x10^3/uL Neutrophils (%) (Auto) 57 % Lymphocytes (%) (Auto) 32 % Monocytes (%) (Auto) 5 % Eosinophils (%) (Auto) 5 % Basophils (%) (Auto) 1 % Neutrophils # (Auto) 4.4 x10^3uL Lymphocytes # (Auto) 2.5 x10^3/uL Monocytes # (Auto) 0.4 x10^3/uL Eosinophils # (Auto) 0.4 x10^3/uL Basophils # (Auto) 0.0 x10^3/uL Sodium Level 140 mmol/L Potassium Level 4.5 mmol/L Chloride Level 105 mmol/L Carbon Dioxide Level 27 mmol/L Anion Gap 8 Blood Urea Nitrogen 29 mg/dL Creatinine 0.9 mg/dL Estimated GFR (Cockcroft-Gault) 59.7 BUN/Creatinine Ratio 32 Glucose Level 117 mg/dL Calcium Level 8.9 mg/dL Total Bilirubin 0.2 mg/dL Aspartate Amino Transf (AST/SGOT) 17 U/L Alanine Aminotransferase (ALT/SGPT) 19 U/L Alkaline Phosphatase 120 U/L Total Protein 7.2 g/dL Albumin 2.7 g/dL Albumin/Globulin Ratio 0.6 Current Medications Medications (Trade) Dose Ordered Sig/Richard Route PRN Reason Start Time Stop Time Status Last Admin Dose Admin Acetaminophen (Tylenol) 650 mg PRN Q6HRS PRN PO MILD PAIN / TEMP > 100.3'F 09/27/21 15:00 10/26/21 20:51 Mirtazapine (Remeron) 15 mg QHS PO 09/27/21 21:00 11/03/21 19:47 Olanzapine (ZyPREXA ZYDIS) 2.5 mg PRN Q2HRS PRN PO ANXIETY / AGITATION 09/27/21 15:00 11/03/21 16:47 Quetiapine Fumarate (SEROquel) 25 mg BID PO 09/27/21 21:00 11/03/21 19:47 Sertraline HCl (Zoloft) 50 mg HS PO 09/27/21 21:00 11/03/21 19:47 Trazodone HCl (Desyrel) 25 mg HS PO 09/27/21 21:00 10/05/21 18:14 DC 10/04/21 20:06 Melatonin (Melatonin) 3 mg HS PO 09/27/21 21:00 11/03/21 19:47 Metformin HCl (Glucophage) 500 mg BIDWMEALS PO 09/29/21 17:00 11/03/21 17:13 Nystatin (Nystop) 15 sulma STK-MED ONCE TP 10/04/21 09:36 10/04/21 09:36 DC Trazodone HCl (Desyrel) 50 mg HS PO 10/05/21 21:00 11/03/21 19:47 Trazodone HCl (Desyrel) 50 mg PRN QHS PRN PO INSOMNIA 10/05/21 18:15 10/18/21 23:33 Albuterol/ Ipratropium (Combivent Respimat 20-100 Mcg) 1 puff RTQID INH 10/18/21 20:00 11/03/21 19:48 Azithromycin (Zithromax) 500 mg 1X ONCE PO 10/19/21 16:45 10/19/21 16:46 DC 10/19/21 17:03 Azithromycin (Zithromax) 250 mg DAILY PO 10/20/21 09:00 10/24/21 22:00 DC 10/24/21 08:23 Lactobacillus Rhamnosus (Culturelle) 1 cap BID PO 10/21/21 09:00 11/03/21 19:47 Diclofenac Sodium (Voltaren) 1 sulma TID TP 10/24/21 14:00 11/03/21 19:48 Prednisone (Prednisone) 60 mg 1X ONCE PO 10/26/21 11:00 10/26/21 11:01 DC 10/26/21 12:17 I have reviewed the current psychotropics carefully including drug interactions. Risk benefit ratio favors no change other than as noted in my dictated progress note. Diagnosis: Problems: (1) Impulse control disorder, unspecified (2) Anxiety disorder, unspecified (3) Dementia, vascular, with depression (4) Dementia, vascular, with delusions (5) Dementia in Alzheimer's disease with depression (6) Dementia in Alzheimer's disease with delusions (7) Dementia of the Alzheimer's type with early onset with behavioral disturbance (8) Major neurocognitive disorder SOO BAIRES MD Nov 03, 2021 22:19
[2021-11-04 06:07] VITALS: BP 162/57
[2021-11-04] MEDS: LACTOBACILLUS RHAMNOSUS GG 1 CAPSULE. PO SCH ×2 (07:49→20:14)
[2021-11-04] MEDS: QUEtiapine 25 MG TABLET. PO SCH ×2 (07:50→20:14)
[2021-11-04] MEDS: IPRATROPIUM/ALBUTEROL 20/100mcg/INH INHALER. INH SCH ×4 (07:50→20:14)
[2021-11-04] MEDS: metFORMIN 500 MG TABLET PO SCH ×2 (07:50→16:43)
[2021-11-04] MEDS: DICLOFENAC SODIUM 1% TOPICAL GEL 100GM TUBE. TP SCH ×3 (07:50→20:14)
--- NOTE | 2021-11-04 08:42 | PDOC ---
Exam Note: [place] Note: This note is a late entry for 10/31/2021 covers elements not covered in my initial note. Subjective: The patient was seen individually on 10/31/2021, discussed and reviewed the chart with Ester TANG. She slept 6-1/2 hours previous night. I met with her in her room. She is quite sarcastic at times but this is typical for her. Review of Systems: Ambulation impaired, in wheelchair. No CV, , pulmonary, eye, ENT system symptoms on review. Mental Status Exam: The patient is oriented to herself and situation. Insight and judgment, recent and remote memory, attention and concentration, fund of knowledge is poor consistent with her diagnoses. Laboratory Data: Reviewed. Impression: Major neurocognitive disorder Alzheimer, vascular, with delusions, depression, behavioral disturbance. Anxiety disorder unspecified. Impulse control disorder unspecified. Plan: Continue current psychotropics. Assessment: Vital Signs/I&O: Vital Signs Date Time Temp Pulse Resp B/P (MAP) Pulse Ox O2 Delivery O2 Flow Rate FiO2 11/04/21 06:07 98.0 74 18 162/57 (92) 96 11/02/21 06:14 Room Air I & O 11/03/21 11/03/21 11/04/21 15:00 23:00 07:00 Intake Total 580 ml 360 ml Balance 580 ml 360 ml Labs: Laboratory Tests Test 11/04/21 07:36 Glucose (Fingerstick) 105 mg/dL (70-99) H Current Medications: I have reviewed the current psychotropics carefully including drug interactions. Risk benefit ratio favors no change other than as noted in my dictated progress note. Diagnosis: Problems: (1) Impulse control disorder, unspecified (2) Anxiety disorder, unspecified (3) Dementia, vascular, with depression (4) Dementia, vascular, with delusions (5) Dementia in Alzheimer's disease with depression (6) Dementia in Alzheimer's disease with delusions (7) Dementia of the Alzheimer's type with early onset with behavioral disturbance (8) Major neurocognitive disorder SOO BAIRES MD Nov 04, 2021 08:42
--- NOTE | 2021-11-04 09:09 | PDOC ---
Exam Note: [place] Note: This note is a late entry for 11/01/2021 covers elements not covered in my initial note. Subjective: The patient was seen individually on 11/01/2021, discussed and reviewed the chart with Ester TANG. Overall she is doing well. I met with the patient in her room. She continues to be somewhat sarcastic, confused but not aggressive. Review of Systems: Ambulation impaired, in wheelchair. No CV, , pulmonary, eye, ENT system symptoms on review. Mental Status Exam: The patient is oriented to herself and situation. I met with her at some length in her room. She was quite animated but anxious, not yelling. Insight and judgment, recent and remote memory, attention and concentration, fund of knowledge is poor consistent with her diagnoses. No suicidal or homicidal ideation. Laboratory Data: Reviewed. Impression: Major neurocognitive disorder Alzheimer, vascular, with delusions, depression, behavioral disturbance. Anxiety disorder unspecified. Impulse control disorder unspecified. Plan: Continue current psychotropics. Assessment: Vital Signs/I&O: Vital Signs Date Time Temp Pulse Resp B/P (MAP) Pulse Ox O2 Delivery O2 Flow Rate FiO2 11/04/21 06:07 98.0 74 18 162/57 (92) 96 11/02/21 06:14 Room Air I & O 11/03/21 11/03/21 11/04/21 15:00 23:00 07:00 Intake Total 580 ml 360 ml Balance 580 ml 360 ml Labs: Laboratory Tests Test 11/04/21 07:36 Glucose (Fingerstick) 105 mg/dL (70-99) H Current Medications: I have reviewed the current psychotropics carefully including drug interactions. Risk benefit ratio favors no change other than as noted in my dictated progress note. Diagnosis: Problems: (1) Impulse control disorder, unspecified (2) Anxiety disorder, unspecified (3) Dementia, vascular, with depression (4) Dementia, vascular, with delusions (5) Dementia in Alzheimer's disease with depression (6) Dementia in Alzheimer's disease with delusions (7) Dementia of the Alzheimer's type with early onset with behavioral disturbance (8) Major neurocognitive disorder SOO BAIRES MD Nov 04, 2021 09:09
--- NOTE | 2021-11-04 09:19 | PDOC ---
Exam Note: [place] Note: This note is a late entry for 11/02/2021 covers elements not covered in my initial note. Subjective: The patient was seen individually on 11/02/2021, discussed and reviewed the chart with Nahomi TANG. She slept 7-3/4 hours previous night. Overall she is doing well. Review of Systems: Impaired ambulation, in wheelchair. No CV, , pulmonary, eye, ENT system symptoms on review. Mental Status Exam: The patient is oriented to herself and situation. I met with the patient in her room. She is ready to go to bed but was quite animated, hard of hearing. Insight and judgment, recent and remote memory, attention and concentration, fund of knowledge is poor consistent with her diagnoses. Laboratory Data: Reviewed. Impression: Major neurocognitive disorder Alzheimer, vascular, with delusions, depression, behavioral disturbance. Anxiety disorder unspecified. Impulse control disorder unspecified. Plan: Continue current psychotropics. Assessment: Vital Signs/I&O: Vital Signs Date Time Temp Pulse Resp B/P (MAP) Pulse Ox O2 Delivery O2 Flow Rate FiO2 11/04/21 06:07 98.0 74 18 162/57 (92) 96 11/02/21 06:14 Room Air I & O 11/03/21 11/03/21 11/04/21 14:59 22:59 06:59 Intake Total 580 ml 360 ml Balance 580 ml 360 ml Labs: Laboratory Tests Test 11/04/21 07:36 Glucose (Fingerstick) 105 mg/dL (70-99) H Current Medications: I have reviewed the current psychotropics carefully including drug interactions. Risk benefit ratio favors no change other than as noted in my dictated progress note. Diagnosis: Problems: (1) Impulse control disorder, unspecified (2) Anxiety disorder, unspecified (3) Dementia, vascular, with depression (4) Dementia, vascular, with delusions (5) Dementia in Alzheimer's disease with depression (6) Dementia in Alzheimer's disease with delusions (7) Dementia of the Alzheimer's type with early onset with behavioral disturbance (8) Major neurocognitive disorder SOO BAIRES MD Nov 04, 2021 09:19
--- NOTE | 2021-11-04 09:27 | PDOC ---
Exam Note: [place] Note: This note is a late entry for 11/03/2021 covers elements not covered in my initial note. Subjective: The patient was seen individually on 11/03/2021, discussed and reviewed the chart with Ester TANG. She slept 6-1/4 hours previous night. She has been irritable today at dinner time. She is compliant with medications, did well last night. I met with her in her room at some length. Review of Systems: Impaired ambulation, in wheelchair. No CV, , pulmonary, eye, ENT system symptoms on review. Mental Status Exam: The patient is oriented to herself and situation. As I met with her in her room she stated someone was stealing from her and I addressed this with her. She showed some insight at the end of the visit. Insight and judgment, recent and remote memory, attention and concentration, fund of knowledge is poor consistent with her diagnoses. No suicidal or homicidal ideation. Laboratory Data: Reviewed. Impression: Major neurocognitive disorder Alzheimer, vascular, with delusions, depression, behavioral disturbance. Anxiety disorder unspecified. Impulse control disorder unspecified. Plan: Continue current psychotropics. Assessment: Vital Signs/I&O: Vital Signs Date Time Temp Pulse Resp B/P (MAP) Pulse Ox O2 Delivery O2 Flow Rate FiO2 11/04/21 06:07 98.0 74 18 162/57 (92) 96 11/02/21 06:14 Room Air I & O 11/03/21 11/03/21 11/04/21 15:00 23:00 07:00 Intake Total 580 ml 360 ml Balance 580 ml 360 ml Labs: Laboratory Tests Test 11/04/21 07:36 Glucose (Fingerstick) 105 mg/dL (70-99) H Current Medications: I have reviewed the current psychotropics carefully including drug interactions. Risk benefit ratio favors no change other than as noted in my dictated progress note. Diagnosis: Problems: (1) Impulse control disorder, unspecified (2) Anxiety disorder, unspecified (3) Dementia, vascular, with depression (4) Dementia, vascular, with delusions (5) Dementia in Alzheimer's disease with depression (6) Dementia in Alzheimer's disease with delusions (7) Dementia of the Alzheimer's type with early onset with behavioral disturbance (8) Major neurocognitive disorder SOO BAIRES MD Nov 04, 2021 09:27
--- NOTE | 2021-11-04 14:50 | TX PLAN ---
Interdisciplinary Tx Plan Admission Information Sep 27, 2021 at 12:55 Legal Status (on Admission): Voluntary DPOA/Guardian Name: Lucille NieceOscar eBrgman Contact Other Contact Name: Jayna Sheikh Contact Verified Code Status: Full Code Allergies: Coded Allergies: No Known Drug Allergies (Unverified , 07/16/21) Diagnoses Primary Diagnosis: 1. 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 Mood disorder, unspecified. Reasons for Admission: Aggressive, Delusions, Agitated, Sig. Change Sleep, Hallucinations, Combative Problem in Patient's Words: Per pt great niece/DPOAАнна who was raised mostly by pt, pt has had a noticable decline over the past year and particularlly over the past couple of months. Up until a year ago, pt was living in her independant living apartment and out of the [place], she moved to [place], [place] and bought a house that she paid winn for. She was then found to be living in very poor conditions without running water and no utilities and overall unable to care for herself. She had a few past hospitalizations but then release to herself and then would be found again living in unsafe conditions. At one point, pt drove herself to Анна's home, but refused to come in to stay, and would only stay in her car. Анна was finally successful at gaining DPOA during one of pt's hospitalizations and also in getting her license revoked. During the past year, family and staff during the different hospitalizations discovered pt was having hallucinations and delusions that seem to continue. Анна is concerned if pt is struggling with onset of dementia or if pt is truly experiencing psychosis and might clear in the future with medication management. Additional Admission Comments: Per intake record, pt refusing UA and cath, sexually inappropriate comments to staff, not sleeping for 30 hours, combative to staff, delusions,auditory hallucinations, verbally aggressive, screaming, cussing, disruptive. Problems Active Problems: Agitation Inactive Problems: Pt has shown improvements. She is less aggressive, delusional, and combative. She, also, is sleeping better. Pt Strengths/Limitations Ability for [place]: Poor Cognitive Functioning/Ability: Poor Communication Skills/Ability: Fair Financial Resources: Fair Insight/Judgement: Poor Intellectual Ability: Fair Physical Health: Poor Social Skills: Fair Stability in Family: Fair Stability in School/Work: Fair Verbal Skills: Fair Discharge Criteria Discharge Criteria: Adequate arrangements @DC, Verbal commit med comply, Improved behavior, Improved mood/thought Other Discharge Comments: None at this time. Preliminary Discharge Plan Preliminary DC Plan: Placement Needed Special Precautions Special Precautions: Agitation/Assault, Swallowing/Choking Fall Risk: High Other Precautions (specify): Pt has a history of falls. Initial D/C Plan Pt will need placement at time of discharge. Identified Discharge Needs: None at this time. Currently Utilized Resources Currently Utilized Resources/P: Great Niece/DPOA-Анна Jj has hired and state attorney to assist with guardianship. Prior to Admission: PCP-Dr. Quang Raza Facility-[facility]; contact-CHANA Cruz *Note-Pt will not return to [facility] Referrals Community Resources: None known at this time. Identified Problems/Hx/Goals Objectives/Short-Term Goals Short Term Goals: Control abnormal behavior, Dec. Aggression, Dec. Anxiety/Panic, Dec. Hallucination/Delus, Dec. Outbursts, Medication Stabilization, Monitor Med Effects, Prevent Deterioration, Promote Coping Skill Short Term Goals in Patient's: Assist with proper diagnosis of psychosis vs dementia. Interventions/Frequency Staff Interventions/Frequency&: Psychiatry to assess pt three times per week for medication management. Nursing to assess behaviors, monitor medications, and complete 15 minute checks daily. Social work to see pt at least two times weekly to aid in return to placement. Activities to encourage pt to participate in group activities daily. 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 Education: According to DPOA, pt received a high school diploma and she had some technical college. Community Follow-up PCP Community Provider/Family Inpu: Pt great nigregorio/Анна LANG, provided pt history for the development of the treatment plan. Анна is available for further information should it be needed. Treatment Plan Explained Patient/Warehouse Lead had this treatment plan explained to him/her as indicated by the signature below and has been given the opportunity to ask questions and make suggestions: Date: Patient/Warehouse Lead Signature: Status Update Update Pt has been averaging 97% of her meals and sleeping about 7 hours each night. Pt does like to take naps through the day and, therefore, gets more sleep than the nightly average of 7. Pt has been doing well with cares and getting herself to t he eating area. She is pleasant with staff and other patients. She has participated in two groups over the past week. She does require assistance with her cognition and memory. However, she is accepting of help. SW will continue to follow along with the APS investigation and seek placement when appropriate to do so. LINDA BLACKWELL Nov 04, 2021 14:50
[2021-11-04 15:58] VITALS: BP 127/71
[2021-11-04] MEDS: MELATONIN 3 MG TABLET PO SCH (20:14)
[2021-11-04] MEDS: traZODone 50 MG TABLET. PO SCH (20:14)
[2021-11-04] MEDS: SERTRALINE 50 MG TABLET. PO SCH (20:14)
[2021-11-04] MEDS: MIRTAZAPINE 15 MG TABLET PO SCH (20:15)
--- NOTE | 2021-11-04 22:04 | PDOC ---
Exam Note: [place] Note: Please also refer to the separate dictated note~for this date of service dictated separately.~Patient seen individually. Discussed the patient with Nursing staff reviewed the chart.~Reviewed interim history and current functioning. Reviewed vital signs,~Labs/ Radiology~and current medications noted below. Continue current treatment with the changes noted in the dictated addendum note Assessment: Vital Signs/I&O: Vital Signs Date Time Temp Pulse Resp B/P (MAP) Pulse Ox O2 Delivery O2 Flow Rate FiO2 11/04/21 15:58 98.2 81 16 127/71 (89) 97 11/02/21 06:14 Room Air I & O 11/03/21 11/03/21 11/04/21 15:00 23:00 07:00 Intake Total 580 ml 360 ml Balance 580 ml 360 ml Labs: Laboratory Tests Test 11/04/21 07:36 Glucose (Fingerstick) 105 mg/dL (70-99) H Current Medications: Meds: Laboratory Tests Test 11/04/21 07:36 Glucose (Fingerstick) 105 mg/dL Current Medications Medications (Trade) Dose Ordered Sig/Richard Route PRN Reason Start Time Stop Time Status Last Admin Dose Admin Acetaminophen (Tylenol) 650 mg PRN Q6HRS PRN PO MILD PAIN / TEMP > 100.3'F 09/27/21 15:00 10/26/21 20:51 Mirtazapine (Remeron) 15 mg QHS PO 09/27/21 21:00 11/04/21 20:15 Olanzapine (ZyPREXA ZYDIS) 2.5 mg PRN Q2HRS PRN PO ANXIETY / AGITATION 09/27/21 15:00 11/03/21 16:47 Quetiapine Fumarate (SEROquel) 25 mg BID PO 09/27/21 21:00 11/04/21 20:14 Sertraline HCl (Zoloft) 50 mg HS PO 09/27/21 21:00 11/04/21 20:14 Trazodone HCl (Desyrel) 25 mg HS PO 09/27/21 21:00 10/05/21 18:14 DC 10/04/21 20:06 Melatonin (Melatonin) 3 mg HS PO 09/27/21 21:00 11/04/21 20:14 Metformin HCl (Glucophage) 500 mg BIDWMEALS PO 09/29/21 17:00 11/04/21 16:43 Nystatin (Nystop) 15 sulma STK-MED ONCE TP 10/04/21 09:36 10/04/21 09:36 DC Trazodone HCl (Desyrel) 50 mg HS PO 10/05/21 21:00 11/04/21 20:14 Trazodone HCl (Desyrel) 50 mg PRN QHS PRN PO INSOMNIA 10/05/21 18:15 10/18/21 23:33 Albuterol/ Ipratropium (Combivent Respimat 20-100 Mcg) 1 puff RTQID INH 10/18/21 20:00 11/04/21 20:14 Azithromycin (Zithromax) 500 mg 1X ONCE PO 10/19/21 16:45 10/19/21 16:46 DC 10/19/21 17:03 Azithromycin (Zithromax) 250 mg DAILY PO 10/20/21 09:00 10/24/21 22:00 DC 10/24/21 08:23 Lactobacillus Rhamnosus (Culturelle) 1 cap BID PO 10/21/21 09:00 11/04/21 20:14 Diclofenac Sodium (Voltaren) 1 sulma TID TP 10/24/21 14:00 11/04/21 20:14 Prednisone (Prednisone) 60 mg 1X ONCE PO 10/26/21 11:00 10/26/21 11:01 DC 10/26/21 12:17 I have reviewed the current psychotropics carefully including drug interactions. Risk benefit ratio favors no change other than as noted in my dictated progress note. Diagnosis: Problems: (1) Impulse control disorder, unspecified (2) Anxiety disorder, unspecified (3) Dementia, vascular, with depression (4) Dementia, vascular, with delusions (5) Dementia in Alzheimer's disease with depression (6) Dementia in Alzheimer's disease with delusions (7) Dementia of the Alzheimer's type with early onset with behavioral disturbance (8) Major neurocognitive disorder SOO BAIRES MD Nov 04, 2021 22:03
[2021-11-05 06:16] VITALS: BP 132/75
[2021-11-05] MEDS: metFORMIN 500 MG TABLET PO SCH ×2 (08:14→16:45)
[2021-11-05] MEDS: QUEtiapine 25 MG TABLET. PO SCH ×2 (08:14→20:28)
[2021-11-05] MEDS: LACTOBACILLUS RHAMNOSUS GG 1 CAPSULE. PO SCH ×2 (08:14→20:29)
[2021-11-05] MEDS: IPRATROPIUM/ALBUTEROL 20/100mcg/INH INHALER. INH SCH ×4 (08:16→20:33)
[2021-11-05] MEDS: DICLOFENAC SODIUM 1% TOPICAL GEL 100GM TUBE. TP SCH ×3 (08:24→20:56)
[2021-11-05 16:08] VITALS: BP 138/72
[2021-11-05] MEDS: MELATONIN 3 MG TABLET PO SCH (20:28)
[2021-11-05] MEDS: traZODone 50 MG TABLET. PO SCH (20:28)
[2021-11-05] MEDS: MIRTAZAPINE 15 MG TABLET PO SCH (20:28)
[2021-11-05] MEDS: SERTRALINE 50 MG TABLET. PO SCH (20:28)
--- NOTE | 2021-11-05 21:26 | PDOC ---
Exam Note: [place] Note: Please also refer to the separate dictated note~for this date of service dictated separately.~Patient seen individually. Discussed the patient with Nursing staff reviewed the chart.~Reviewed interim history and current functioning. Reviewed vital signs,~Labs/ Radiology~and current medications noted below. Continue current treatment with the changes noted in the dictated addendum note Assessment: Vital Signs/I&O: Vital Signs Date Time Temp Pulse Resp B/P (MAP) Pulse Ox O2 Delivery O2 Flow Rate FiO2 11/05/21 16:08 98.1 72 16 138/72 (94) 98 Room Air I & O 11/04/21 11/04/21 11/05/21 15:00 23:00 07:00 Intake Total 560 ml 30 ml Balance 560 ml 30 ml Labs: Laboratory Tests Test 11/05/21 07:39 Glucose (Fingerstick) 106 mg/dL (70-99) H Current Medications: Meds: Laboratory Tests Test 11/05/21 07:39 Glucose (Fingerstick) 106 mg/dL Current Medications Medications (Trade) Dose Ordered Sig/Richard Route PRN Reason Start Time Stop Time Status Last Admin Dose Admin Acetaminophen (Tylenol) 650 mg PRN Q6HRS PRN PO MILD PAIN / TEMP > 100.3'F 09/27/21 15:00 10/26/21 20:51 Mirtazapine (Remeron) 15 mg QHS PO 09/27/21 21:00 11/05/21 20:28 Olanzapine (ZyPREXA ZYDIS) 2.5 mg PRN Q2HRS PRN PO ANXIETY / AGITATION 09/27/21 15:00 11/03/21 16:47 Quetiapine Fumarate (SEROquel) 25 mg BID PO 09/27/21 21:00 11/05/21 20:28 Sertraline HCl (Zoloft) 50 mg HS PO 09/27/21 21:00 11/05/21 20:28 Trazodone HCl (Desyrel) 25 mg HS PO 09/27/21 21:00 10/05/21 18:14 DC 10/04/21 20:06 Melatonin (Melatonin) 3 mg HS PO 09/27/21 21:00 11/05/21 20:28 Metformin HCl (Glucophage) 500 mg BIDWMEALS PO 09/29/21 17:00 11/05/21 16:45 Nystatin (Nystop) 15 sulma STK-MED ONCE TP 10/04/21 09:36 10/04/21 09:36 DC Trazodone HCl (Desyrel) 50 mg HS PO 10/05/21 21:00 11/05/21 20:28 Trazodone HCl (Desyrel) 50 mg PRN QHS PRN PO INSOMNIA 10/05/21 18:15 10/18/21 23:33 Albuterol/ Ipratropium (Combivent Respimat 20-100 Mcg) 1 puff RTQID INH 10/18/21 20:00 11/05/21 20:33 Azithromycin (Zithromax) 500 mg 1X ONCE PO 10/19/21 16:45 10/19/21 16:46 DC 10/19/21 17:03 Azithromycin (Zithromax) 250 mg DAILY PO 10/20/21 09:00 10/24/21 22:00 DC 10/24/21 08:23 Lactobacillus Rhamnosus (Culturelle) 1 cap BID PO 10/21/21 09:00 11/05/21 20:29 Diclofenac Sodium (Voltaren) 1 sulma TID TP 10/24/21 14:00 11/05/21 20:56 Prednisone (Prednisone) 60 mg 1X ONCE PO 10/26/21 11:00 10/26/21 11:01 DC 10/26/21 12:17 I have reviewed the current psychotropics carefully including drug interactions. Risk benefit ratio favors no change other than as noted in my dictated progress note. Diagnosis: Problems: (1) Impulse control disorder, unspecified (2) Anxiety disorder, unspecified (3) Dementia, vascular, with depression (4) Dementia, vascular, with delusions (5) Dementia in Alzheimer's disease with depression (6) Dementia in Alzheimer's disease with delusions (7) Dementia of the Alzheimer's type with early onset with behavioral disturbance (8) Major neurocognitive disorder SOO BAIRES MD Nov 05, 2021 21:26
[2021-11-06 06:19] VITALS: BP 152/80
[2021-11-06] MEDS: ACETAMINOPHEN 325 MG TABLET PO PRN (06:25)
--- NOTE | 2021-11-06 07:04 | PDOC ---
Exam Note: [place] Note: This note is a late entry for 11/04/2021 covers elements not covered in my initial note. Subjective: The patient was reviewed at treatment team meeting in the morning on 11/04/2021 with Katherine Moreno, Eliza Muniz, and Stephani Curry (social services specialist), Martina, activity therapy, and Gloria TANG, discussed and reviewed the chart. Discussed and reviewed her progress, diagnoses, current psychotropic medications and drug interactions. Average sleep 7 hours. Appetite is 90%. She has been pleasant, attended 2 groups in the past week. Overall the patient is doing well. She has a sense of humor but not been yelling. Review of Systems: Impaired ambulation, in wheelchair. No CV, , pulmonary, eye system symptoms on review. Hard of hearing. Mental Status Exam: The patient is oriented to herself and situation. Insight and judgment, recent memory is impaired. Language function intact. Attention span short. Mood and affect is improved. No suicidal or homicidal ideation. Laboratory Data: Reviewed. Impression: Major neurocognitive disorder Alzheimer, vascular, with delusions, depression, behavioral disturbance. Anxiety disorder unspecified. Impulse control disorder unspecified. Plan: Continue current psychotropics. Assessment: Vital Signs/I&O: Vital Signs Date Time Temp Pulse Resp B/P (MAP) Pulse Ox O2 Delivery O2 Flow Rate FiO2 11/06/21 06:19 97.3 75 18 152/80 (104) 93 11/05/21 16:08 Room Air I & O 11/05/21 11/05/21 11/06/21 15:00 23:00 07:00 Intake Total 720 ml 240 ml 0 ml Balance 720 ml 240 ml 0 ml Labs: Laboratory Tests Test 11/05/21 07:39 Glucose (Fingerstick) 106 mg/dL (70-99) H Current Medications: I have reviewed the current psychotropics carefully including drug interactions. Risk benefit ratio favors no change other than as noted in my dictated progress note. Diagnosis: Problems: (1) Impulse control disorder, unspecified (2) Anxiety disorder, unspecified (3) Dementia, vascular, with depression (4) Dementia, vascular, with delusions (5) Dementia in Alzheimer's disease with depression (6) Dementia in Alzheimer's disease with delusions (7) Dementia of the Alzheimer's type with early onset with behavioral disturbance (8) Major neurocognitive disorder SOO BAIRES MD Nov 06, 2021 07:04
--- NOTE | 2021-11-06 07:20 | PDOC ---
Exam Note: [place] Note: This note is a late entry for 11/05/2021 covers elements not covered in my initial note. Subjective: The patient was seen individually on 11/05/2021, discussed and reviewed the chart with Gloria TANG. The patient slept 9 hours previous night. Overall she is doing reasonably well, yelling is less. I met with her in the hallway. She was in a wheelchair after supper wheeling herself down, unable to find her room till I helped her find it and she did not except that was her room. Otherwise she continues to have a sense of humor. Review of Systems: Impaired ambulation, in wheelchair. No CV, , pulmonary, eye system symptoms on review. Hard of hearing. Mental Status Exam: The patient is oriented to herself and situation. Insight and judgment, recent memory is impaired. Language function intact. Attention span short. Mood and affect is improved. No suicidal or homicidal ideation. Laboratory Data: Reviewed. Impression: Major neurocognitive disorder Alzheimer, vascular, with delusions, depression, behavioral disturbance. Anxiety disorder unspecified. Impulse control disorder unspecified. Plan: Continue current psychotropics. Assessment: Vital Signs/I&O: Vital Signs Date Time Temp Pulse Resp B/P (MAP) Pulse Ox O2 Delivery O2 Flow Rate FiO2 11/06/21 06:19 97.3 75 18 152/80 (104) 93 11/05/21 16:08 Room Air I & O 11/05/21 11/05/21 11/06/21 15:00 23:00 07:00 Intake Total 720 ml 240 ml 0 ml Balance 720 ml 240 ml 0 ml Labs: Laboratory Tests Test 11/05/21 07:39 Glucose (Fingerstick) 106 mg/dL (70-99) H Current Medications: I have reviewed the current psychotropics carefully including drug interactions. Risk benefit ratio favors no change other than as noted in my dictated progress note. Diagnosis: Problems: (1) Impulse control disorder, unspecified (2) Anxiety disorder, unspecified (3) Dementia, vascular, with depression (4) Dementia, vascular, with delusions (5) Dementia in Alzheimer's disease with depression (6) Dementia in Alzheimer's disease with delusions (7) Dementia of the Alzheimer's type with early onset with behavioral disturbance (8) Major neurocognitive disorder SOO BAIRES MD Nov 06, 2021 07:19
[2021-11-06] MEDS: IPRATROPIUM/ALBUTEROL 20/100mcg/INH INHALER. INH SCH ×4 (07:50→20:17)
[2021-11-06] MEDS: QUEtiapine 25 MG TABLET. PO SCH ×2 (08:06→20:18)
[2021-11-06] MEDS: metFORMIN 500 MG TABLET PO SCH ×2 (08:06→17:18)
[2021-11-06] MEDS: LACTOBACILLUS RHAMNOSUS GG 1 CAPSULE. PO SCH ×2 (08:06→20:18)
[2021-11-06] MEDS: DICLOFENAC SODIUM 1% TOPICAL GEL 100GM TUBE. TP SCH ×3 (08:14→20:18)
[2021-11-06 15:43] VITALS: BP 136/70
[2021-11-06] MEDS: traZODone 50 MG TABLET. PO SCH (20:18)
[2021-11-06] MEDS: MIRTAZAPINE 15 MG TABLET PO SCH (20:18)
[2021-11-06] MEDS: MELATONIN 3 MG TABLET PO SCH (20:18)
[2021-11-06] MEDS: SERTRALINE 50 MG TABLET. PO SCH (20:18)
--- NOTE | 2021-11-06 22:15 | PDOC ---
Exam Note: [place] Note: Please also refer to the separate dictated note~for this date of service dictated separately.~Patient seen individually. Discussed the patient with Nursing staff reviewed the chart.~Reviewed interim history and current functioning. Reviewed vital signs,~Labs/ Radiology~and current medications noted below. Continue current treatment with the changes noted in the dictated addendum note Assessment: Vital Signs/I&O: Vital Signs Date Time Temp Pulse Resp B/P (MAP) Pulse Ox O2 Delivery O2 Flow Rate FiO2 11/06/21 15:43 97.1 78 20 136/70 (92) 95 11/05/21 16:08 Room Air I & O 11/05/21 11/05/21 11/06/21 14:59 22:59 06:59 Intake Total 720 ml 240 ml 0 ml Balance 720 ml 240 ml 0 ml Labs: Laboratory Tests Test 11/06/21 07:50 Glucose (Fingerstick) 130 mg/dL (70-99) H Current Medications: Meds: Laboratory Tests Test 11/06/21 07:50 Glucose (Fingerstick) 130 mg/dL Current Medications Medications (Trade) Dose Ordered Sig/Richard Route PRN Reason Start Time Stop Time Status Last Admin Dose Admin Acetaminophen (Tylenol) 650 mg PRN Q6HRS PRN PO MILD PAIN / TEMP > 100.3'F 09/27/21 15:00 11/06/21 06:25 Mirtazapine (Remeron) 15 mg QHS PO 09/27/21 21:00 11/06/21 20:18 Olanzapine (ZyPREXA ZYDIS) 2.5 mg PRN Q2HRS PRN PO ANXIETY / AGITATION 09/27/21 15:00 11/03/21 16:47 Quetiapine Fumarate (SEROquel) 25 mg BID PO 09/27/21 21:00 11/06/21 20:18 Sertraline HCl (Zoloft) 50 mg HS PO 09/27/21 21:00 11/06/21 20:18 Trazodone HCl (Desyrel) 25 mg HS PO 09/27/21 21:00 10/05/21 18:14 DC 10/04/21 20:06 Melatonin (Melatonin) 3 mg HS PO 09/27/21 21:00 11/06/21 20:18 Metformin HCl (Glucophage) 500 mg BIDWMEALS PO 09/29/21 17:00 11/06/21 17:18 Nystatin (Nystop) 15 sulma STK-MED ONCE TP 10/04/21 09:36 10/04/21 09:36 DC Trazodone HCl (Desyrel) 50 mg HS PO 10/05/21 21:00 11/06/21 20:18 Trazodone HCl (Desyrel) 50 mg PRN QHS PRN PO INSOMNIA 10/05/21 18:15 10/18/21 23:33 Albuterol/ Ipratropium (Combivent Respimat 20-100 Mcg) 1 puff RTQID INH 10/18/21 20:00 11/06/21 20:17 Azithromycin (Zithromax) 500 mg 1X ONCE PO 10/19/21 16:45 10/19/21 16:46 DC 10/19/21 17:03 Azithromycin (Zithromax) 250 mg DAILY PO 10/20/21 09:00 10/24/21 22:00 DC 10/24/21 08:23 Lactobacillus Rhamnosus (Culturelle) 1 cap BID PO 10/21/21 09:00 11/06/21 20:18 Diclofenac Sodium (Voltaren) 1 sulma TID TP 10/24/21 14:00 11/06/21 20:18 Prednisone (Prednisone) 60 mg 1X ONCE PO 10/26/21 11:00 10/26/21 11:01 DC 10/26/21 12:17 I have reviewed the current psychotropics carefully including drug interactions. Risk benefit ratio favors no change other than as noted in my dictated progress note. Diagnosis: Problems: (1) Impulse control disorder, unspecified (2) Anxiety disorder, unspecified (3) Dementia, vascular, with depression (4) Dementia, vascular, with delusions (5) Dementia in Alzheimer's disease with depression (6) Dementia in Alzheimer's disease with delusions (7) Dementia of the Alzheimer's type with early onset with behavioral disturbance (8) Major neurocognitive disorder SOO BAIRES MD Nov 06, 2021 22:15
[2021-11-07 06:00] VITALS: BP 150/62
[2021-11-07] MEDS: metFORMIN 500 MG TABLET PO SCH ×2 (08:06→16:40)
[2021-11-07] MEDS: IPRATROPIUM/ALBUTEROL 20/100mcg/INH INHALER. INH SCH ×4 (08:07→21:19)
[2021-11-07] MEDS: LACTOBACILLUS RHAMNOSUS GG 1 CAPSULE. PO SCH ×2 (08:07→21:18)
[2021-11-07] MEDS: QUEtiapine 25 MG TABLET. PO SCH ×2 (08:07→21:18)
[2021-11-07] MEDS: DICLOFENAC SODIUM 1% TOPICAL GEL 100GM TUBE. TP SCH ×2 (08:07→08:15)
[2021-11-07 15:35] VITALS: BP 120/51
[2021-11-07] MEDS: SERTRALINE 50 MG TABLET. PO SCH (21:17)
[2021-11-07] MEDS: traZODone 50 MG TABLET. PO SCH (21:17)
[2021-11-07] MEDS: MELATONIN 3 MG TABLET PO SCH (21:17)
[2021-11-07] MEDS: MIRTAZAPINE 15 MG TABLET PO SCH (21:17)
[2021-11-07] MEDS: DICLOFENAC SODIUM 1% TOPICAL GEL 100GM TUBE. TP PRN (21:19)
--- NOTE | 2021-11-07 21:33 | PDOC ---
Exam Note: [place] Note: Please also refer to the separate dictated note~for this date of service dictated separately.~Patient seen individually. Discussed the patient with Nursing staff reviewed the chart.~Reviewed interim history and current functioning. Reviewed vital signs,~Labs/ Radiology~and current medications noted below. Continue current treatment with the changes noted in the dictated addendum note Assessment: Vital Signs/I&O: Vital Signs Date Time Temp Pulse Resp B/P (MAP) Pulse Ox O2 Delivery O2 Flow Rate FiO2 11/07/21 15:35 97.4 76 20 120/51 (74) 100 11/07/21 06:00 Room Air I & O 11/06/21 11/06/21 11/07/21 15:00 23:00 07:00 Intake Total 740 ml 200 ml Balance 740 ml 200 ml Labs: Laboratory Tests Test 11/07/21 07:20 Glucose (Fingerstick) 115 mg/dL (70-99) H Current Medications: Meds: Current Medications Medications (Trade) Dose Ordered Sig/Richard Route PRN Reason Start Time Stop Time Status Last Admin Dose Admin Diclofenac Sodium (Voltaren) 1 sulma PRN TID PRN TP MUSCLE PAIN 11/07/21 12:45 11/07/21 21:19 I have reviewed the current psychotropics carefully including drug interactions. Risk benefit ratio favors no change other than as noted in my dictated progress note. Diagnosis: Problems: (1) Impulse control disorder, unspecified (2) Anxiety disorder, unspecified (3) Dementia, vascular, with depression (4) Dementia, vascular, with delusions (5) Dementia in Alzheimer's disease with depression (6) Dementia in Alzheimer's disease with delusions (7) Dementia of the Alzheimer's type with early onset with behavioral disturbance (8) Major neurocognitive disorder SOO BAIRES MD Nov 07, 2021 21:33
[2021-11-08] MEDS: traZODone 50 MG TABLET. PO PRN ×2 (01:00→20:11)
[2021-11-08 05:58] VITALS: BP_SYST 117; BP_SYST 152; BP_DIAS 61; BP_DIAS 71
--- NOTE | 2021-11-08 08:13 | PDOC ---
Exam Note: Troy Note: This note is a late entry for 11/06/2021 covers elements not covered in my initial note. Subjective: The patient was seen individually on 11/06/2021, discussed and reviewed the chart with Ester TANG. The patient slept 8 hours previous night. I met with her in the dining room. She had had her entire meal. Per nursing report she is doing about the same. No yelling. Review of Systems: Impaired ambulation, in wheelchair. No CV, , pulmonary, eye system symptoms on review. Hard of hearing. Mental Status Exam: The patient is oriented to herself and situation. She has a sarcastic caustic sense of humor, quite appropriate. Insight and judgment, recent memory is impaired. Language function intact. Attention span short. Mood and affect is improved. No suicidal or homicidal ideation. Laboratory Data: Reviewed. Impression: Major neurocognitive disorder Alzheimer, vascular, with delusions, depression, behavioral disturbance. Anxiety disorder unspecified. Impulse control disorder unspecified. Plan: Continue current psychotropics. Assessment: Vital Signs/I&O: Vital Signs Date Time Temp Pulse Resp B/P (MAP) Pulse Ox O2 Delivery O2 Flow Rate FiO2 11/08/21 05:58 98.3 78 16 117/61 (79) 94 11/07/21 06:00 Room Air I & O 0 11/07/21 11/07/21 11/08/21 15:00 23:00 07:00 Intake Total 960 ml 360 ml Balance 960 ml 360 ml Labs: Laboratory Tests Test 11/08/21 07:36 Glucose (Fingerstick) 121 mg/dL (70-99) H Current Medications: Meds: Current Medications Medications (Trade) Dose Ordered Sig/Richard Route PRN Reason Start Time Stop Time Status Last Admin Dose Admin Diclofenac Sodium (Voltaren) 1 sulma PRN TID PRN TP MUSCLE PAIN 11/07/21 12:45 11/07/21 21:19 I have reviewed the current psychotropics carefully including drug interactions. Risk benefit ratio favors no change other than as noted in my dictated progress note. Diagnosis: Problems: (1) Impulse control disorder, unspecified (2) Anxiety disorder, unspecified (3) Dementia, vascular, with depression (4) Dementia, vascular, with delusions (5) Dementia in Alzheimer's disease with depression (6) Dementia in Alzheimer's disease with delusions (7) Dementia of the Alzheimer's type with early onset with behavioral disturbance (8) Major neurocognitive disorder SOO BAIRES MD Nov 08, 2021 08:13
--- NOTE | 2021-11-08 08:26 | PDOC ---
Exam Note: Troy Note: This note is a late entry for 11/07/2021 covers elements not covered in my initial note. Subjective: The patient was seen individually on 11/07/2021, discussed and reviewed the chart with Lou TANG. The patient slept 9-1/4 hours previous night. Overall the patient is doing about the same as before. Review of Systems: Impaired ambulation, in wheelchair. No CV, , pulmonary, eye system symptoms on review. Hard of hearing. Mental Status Exam: The patient is oriented to herself and situation. I met with her in the evening in her room. She was lying in bed. She was verbally interactive. She did not know the name of her roommate but was pleasant. Abstraction fair. Language function intact. Attention span short. Mood and affect is improved. No suicidal or homicidal ideation. Laboratory Data: Reviewed. Impression: Major neurocognitive disorder Alzheimer, vascular, with delusions, depression, behavioral disturbance. Anxiety disorder unspecified. Impulse control disorder unspecified. Plan: Continue current psychotropics. Assessment: Vital Signs/I&O: Vital Signs Date Time Temp Pulse Resp B/P (MAP) Pulse Ox O2 Delivery O2 Flow Rate FiO2 11/08/21 05:58 98.3 78 16 117/61 (79) 94 11/07/21 06:00 Room Air I & O 11/07/21 11/07/21 11/08/21 15:00 23:00 07:00 Intake Total 960 ml 360 ml Balance 960 ml 360 ml Labs: Laboratory Tests Test 11/08/21 07:36 Glucose (Fingerstick) 121 mg/dL (70-99) H Current Medications: Meds: Current Medications Medications (Trade) Dose Ordered Sig/Richard Route PRN Reason Start Time Stop Time Status Last Admin Dose Admin Diclofenac Sodium (Voltaren) 1 sulma PRN TID PRN TP MUSCLE PAIN 11/07/21 12:45 11/07/21 21:19 I have reviewed the current psychotropics carefully including drug interactions. Risk benefit ratio favors no change other than as noted in my dictated progress note. Diagnosis: Problems: (1) Impulse control disorder, unspecified (2) Anxiety disorder, unspecified (3) Dementia, vascular, with depression (4) Dementia, vascular, with delusions (5) Dementia in Alzheimer's disease with depression (6) Dementia in Alzheimer's disease with delusions (7) Dementia of the Alzheimer's type with early onset with behavioral disturbance (8) Major neurocognitive disorder SOO BAIRES MD Nov 08, 2021 08:26
[2021-11-08] MEDS: metFORMIN 500 MG TABLET PO SCH ×2 (08:42→16:31)
[2021-11-08] MEDS: IPRATROPIUM/ALBUTEROL 20/100mcg/INH INHALER. INH SCH ×4 (08:42→19:58)
[2021-11-08] MEDS: QUEtiapine 25 MG TABLET. PO SCH ×2 (08:42→19:58)
[2021-11-08] MEDS: LACTOBACILLUS RHAMNOSUS GG 1 CAPSULE. PO SCH ×2 (08:42→19:57)
[2021-11-08 15:45] VITALS: BP 151/65
--- NOTE | 2021-11-08 19:09 | PN ---
DATE: 11/08/2021 SUBJECTIVE: The patient was seen today, met with the staff. Chart reviewed and covering for Dr. Alicea. The patient's behavior remains the same. She stays in her room most of the time and staff observed that she has been delusional at times and also holding conversations very loud with imaginary figures. The patient also exhibits emotional lability. OBSERVATION: VITAL SIGNS: Temperature 98.____, blood pressure 117/61, pulse 78, respirations 16, O2 sat 94. GENERAL. She slept about 6-1/2 hours last night. Her appetite normal. MEDICATIONS: The patient's current medications include trazodone 50 mg at night and 50 mg p.r.n. at night for sleep. Melatonin 3 mg at night, Zoloft 50 mg at night, Seroquel 25 mg twice a day, mirtazapine 15 mg at night. She is also on olanzapine 2.5 mg q. 2 hours p.r.n. LABORATORY DATA: The patient's lab reviewed. ASSESSMENT: Dementia, most likely Alzheimer's versus vascular with depression and delusions. PLAN: To continue with the treatment. LENGTH OF STAY: Seven to ten days. She is awaiting for placement. NICHO DR: [place] TID: [id number]
[2021-11-08] MEDS: MIRTAZAPINE 15 MG TABLET PO SCH (19:57)
[2021-11-08] MEDS: MELATONIN 3 MG TABLET PO SCH (19:57)
[2021-11-08] MEDS: SERTRALINE 50 MG TABLET. PO SCH (19:58)
[2021-11-08] MEDS: traZODone 50 MG TABLET. PO SCH (19:58)
[2021-11-09 06:03] VITALS: BP 137/74
[2021-11-09 07:21] LABS: BASO % 1 % (0-3); EOS # 0.3 x10^3/uL (0.0-0.7); EOS % 4 % (0-3); HEMATOCRIT 33.3 % (36.0-47.0); HEMOGLOBIN 10.5 g/dL (12.0-15.5); LYMPH # 2.7 x10^3/uL (1.0-4.8); LYMPH % 35 % (24-48); MEAN CORPUSCULAR HEMOGLOBIN 26 pg (25-35); MEAN CORPUSCULAR HGB CONC 32 g/dL (31-37); MEAN CORPUSCULAR VOLUME 83 fL (79-100); MONO # 0.4 x10^3/uL (0.0-1.1); MONO % 6 % (0-9); NEUT # 4.3 x10^3uL (1.8-7.7); NEUT % 55 % (31-73); PLATELET COUNT 214 x10^3/uL (140-400); RED BLOOD COUNT 4.01 x10^6/uL (3.50-5.40); RED CELL DISTRIBUTION WIDTH 16.5 % (11.5-14.5); WHITE BLOOD COUNT 7.8 x10^3/uL (4.0-11.0)
[2021-11-09 07:28] LABS: ALBUMIN 2.8 g/dL (3.4-5.0); ALBUMIN/GLOBULIN RATIO 0.7 (1.0-1.7); CALCIUM 8.8 mg/dL (8.5-10.1); CREATININE 0.9 mg/dL (0.6-1.0); GFR 59.7; POTASSIUM 4.4 mmol/L (3.5-5.1); TOTAL BILIRUBIN 0.2 mg/dL (0.2-1.0); TOTAL PROTEIN 6.7 g/dL (6.4-8.2)
[2021-11-09] MEDS: IPRATROPIUM/ALBUTEROL 20/100mcg/INH INHALER. INH SCH ×4 (08:00→20:05)
[2021-11-09] MEDS: QUEtiapine 25 MG TABLET. PO SCH ×2 (08:16→20:04)
[2021-11-09] MEDS: metFORMIN 500 MG TABLET PO SCH ×2 (08:16→16:37)
[2021-11-09] MEDS: LACTOBACILLUS RHAMNOSUS GG 1 CAPSULE. PO SCH ×2 (08:16→20:04)
[2021-11-09 16:08] VITALS: BP 118/67
[2021-11-09] MEDS: SERTRALINE 50 MG TABLET. PO SCH (20:04)
[2021-11-09] MEDS: MELATONIN 3 MG TABLET PO SCH (20:04)
[2021-11-09] MEDS: MIRTAZAPINE 15 MG TABLET PO SCH (20:04)
[2021-11-09] MEDS: traZODone 50 MG TABLET. PO SCH (20:04)
--- NOTE | 2021-11-09 21:41 | PN ---
DATE: 11/09/2021 DATE OF SERVICE: 11/09/2021 SUBJECTIVE: The patient continues to stay in her bed most of the time, increased sleep. Staff reports she is much calmer today, interactive and medication compliant. OBSERVATION: VITAL SIGNS: Temperature 97.7, blood pressure 137/74, pulse 64, respirations 19, O2 sat 92%. GENERAL: Slept about 7 hours last night. The patient's appetite IS normal. The patient is not having any physical complaints. CURRENT MEDICATIONS: The patient's current medications include trazodone 50 mg at night and 50 mg at night p.r.n., melatonin 3 mg at night, Zoloft 50 mg at night, Seroquel 25 mg twice a day and mirtazapine 15 mg at night. The patient is not having any side effects to medications. LABORATORY DATA: The patient's lab was reviewed. ASSESSMENT: Dementia, most likely Alzheimer's versus vascular with the depression and delusions. PLAN: To continue with treatment. LENGTH OF STAY: 7-10 days, awaiting for placement. ANTON DR: [place] TID: [id number]
[2021-11-10 06:22] VITALS: BP 113/65
[2021-11-10] MEDS: IPRATROPIUM/ALBUTEROL 20/100mcg/INH INHALER. INH SCH ×4 (08:17→20:00)
[2021-11-10] MEDS: QUEtiapine 25 MG TABLET. PO SCH ×2 (08:18→20:02)
[2021-11-10] MEDS: metFORMIN 500 MG TABLET PO SCH ×2 (08:18→17:15)
[2021-11-10] MEDS: LACTOBACILLUS RHAMNOSUS GG 1 CAPSULE. PO SCH ×2 (08:18→20:02)
[2021-11-10] MEDS: DICLOFENAC SODIUM 1% TOPICAL GEL 100GM TUBE. TP PRN (12:24)
[2021-11-10 15:43] VITALS: BP 134/75
[2021-11-10] MEDS: MELATONIN 3 MG TABLET PO SCH (20:02)
[2021-11-10] MEDS: traZODone 50 MG TABLET. PO SCH (20:02)
[2021-11-10] MEDS: MIRTAZAPINE 15 MG TABLET PO SCH (20:02)
[2021-11-10] MEDS: SERTRALINE 50 MG TABLET. PO SCH (20:02)
[2021-11-11 00:41] LABS: BACTERIA,URINE FEW /HPF (0-FEW); CLARITY,URINE HAZY; COLOR,URINE YELLOW; GLUCOSE,URINE NEG (NEG); NITRITE,URINE NEG (NEG); RBC,URINE OCC /HPF (0-2); SQUAMOUS EPITHELIAL CELL,UR OCC /LPF; UROBILINOGEN,URINE 0.2 mg/dL (0.2 mg/dL); WBC,URINE >40 /HPF (0-4)
--- NOTE | 2021-11-11 02:47 | PN ---
DATE: 11/10/2021 SUBJECTIVE: The patient was seen today, met with the staff, chart reviewed and covering for Dr. Alicea. Staff reports no behavior problems except she stays in her bed, sleeping most of the time and occasional outburst of emotions, also delusional talking and arguing with imaginary figures. OBSERVATION: VITAL SIGNS: Temperature 98.5, blood pressure 113/65, pulse 67, respirations 20, O2 sat 94%. GENERAL: Slept about 7 hours last night. The patient's appetite increased. CURRENT MEDICATIONS: The patient's current medications include trazodone 50 mg at night and ____ 50 mg at night p.r.n., melatonin 3 mg at night, Zoloft 50 mg at night, Seroquel 25 mg twice a day. The patient is also on Remeron 15 mg at night because she had problems with chronic insomnia. The patient is not experiencing any side effects. LABORATORY DATA: The patient's lab reviewed. ASSESSMENT: Dementia, most likely Alzheimer's versus vascular with depression and delusions. PLAN: To continue with treatment. LENGTH OF STAY: 7 days, awaiting for placement. BOBBY/ALBERTO/ETHEL DR: BOBBY/dilshad TID: [id number]
[2021-11-11] MEDS: DICLOFENAC SODIUM 1% TOPICAL GEL 100GM TUBE. TP PRN ×2 (04:26→20:33)
[2021-11-11 06:30] VITALS: BP 107/51
[2021-11-11] MEDS: metFORMIN 500 MG TABLET PO SCH ×2 (08:09→17:00)
[2021-11-11] MEDS: IPRATROPIUM/ALBUTEROL 20/100mcg/INH INHALER. INH SCH ×4 (08:09→20:33)
[2021-11-11] MEDS: QUEtiapine 25 MG TABLET. PO SCH ×2 (08:09→20:34)
[2021-11-11] MEDS: LACTOBACILLUS RHAMNOSUS GG 1 CAPSULE. PO SCH ×2 (08:09→20:33)
[2021-11-11 15:42] VITALS: BP 143/72
--- NOTE | 2021-11-11 16:14 | TX PLAN ---
Interdisciplinary Tx Plan Admission Information Sep 27, 2021 at 12:55 Legal Status (on Admission): Voluntary DPOA/Guardian Name: Lucille NieceOscar Bergman Contact Other Contact Name: Jayna Sheikh Contact Verified Code Status: Full Code Allergies: Coded Allergies: No Known Drug Allergies (Unverified , 07/16/21) Diagnoses Primary Diagnosis: 1. 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 Mood disorder, unspecified. Reasons for Admission: Aggressive, Delusions, Agitated, Sig. Change Sleep, Hallucinations, Combative Problem in Patient's Words: Per pt great niece/DPOAАнна who was raised mostly by pt, pt has had a noticable decline over the past year and particularlly over the past couple of months. Up until a year ago, pt was living in her independant living apartment and out of the [place], she moved to [place], [place] and bought a house that she paid winn for. She was then found to be living in very poor conditions without running water and no utilities and overall unable to care for herself. She had a few past hospitalizations but then release to herself and then would be found again living in unsafe conditions. At one point, pt drove herself to Анна's home, but refused to come in to stay, and would only stay in her car. Анна was finally successful at gaining DPOA during one of pt's hospitalizations and also in getting her license revoked. During the past year, family and staff during the different hospitalizations discovered pt was having hallucinations and delusions that seem to continue. Анна is concerned if pt is struggling with onset of dementia or if pt is truly experiencing psychosis and might clear in the future with medication management. Additional Admission Comments: Per intake record, pt refusing UA and cath, sexually inappropriate comments to staff, not sleeping for 30 hours, combative to staff, delusions,auditory hallucinations, verbally aggressive, screaming, cussing, disruptive. Problems Active Problems: Agitation Inactive Problems: Pt has shown improvements. She is less aggressive, delusional, and combative. She, also, is sleeping better. Pt Strengths/Limitations Ability for [place]: Poor Cognitive Functioning/Ability: Poor Communication Skills/Ability: Fair Financial Resources: Fair Insight/Judgement: Poor Intellectual Ability: Fair Physical Health: Poor Social Skills: Fair Stability in Family: Fair Stability in School/Work: Fair Verbal Skills: Fair Discharge Criteria Discharge Criteria: Adequate arrangements @DC, Verbal commit med comply, Improved behavior, Improved mood/thought Other Discharge Comments: None at this time. Preliminary Discharge Plan Preliminary DC Plan: Placement Needed Special Precautions Special Precautions: Agitation/Assault, Swallowing/Choking Fall Risk: High Other Precautions (specify): Pt has a history of falls. Initial D/C Plan Pt will need placement at time of discharge. Identified Discharge Needs: None at this time. Currently Utilized Resources Currently Utilized Resources/P: Great Niece/DPOA-Анна Jj has hired and collar band creaser to assist with guardianship. Prior to Admission: PCP-Dr. Quang Raza Facility-[facility]; contact-CHANA Cruz *Note-Pt will not return to [facility] Referrals Community Resources: None known at this time. Identified Problems/Hx/Goals Objectives/Short-Term Goals Short Term Goals: Control abnormal behavior, Dec. Aggression, Dec. Anxiety/Panic, Dec. Hallucination/Delus, Dec. Outbursts, Medication Stabilization, Monitor Med Effects, Prevent Deterioration, Promote Coping Skill Short Term Goals in Patient's: Assist with proper diagnosis of psychosis vs dementia. Interventions/Frequency Staff Interventions/Frequency&: Psychiatry to assess pt three times per week for medication management. Nursing to assess behaviors, monitor medications, and complete 15 minute checks daily. Social work to see pt at least two times weekly to aid in return to placement. Activities to encourage pt to participate in group activities daily. 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 Education: According to DPOA, pt received a high school diploma and she had some technical college. Community Follow-up PCP Community Provider/Family Inpu: Pt great nigregorio/Анна LANG, provided pt history for the development of the treatment plan. Анна is available for further information should it be needed. Treatment Plan Explained Patient/Head Charger had this treatment plan explained to him/her as indicated by the signature below and has been given the opportunity to ask questions and make suggestions: Date: Patient/Head Charger Signature: Status Update Update Pt has been eating an average of 90% of her meals over the past week. She has been getting approximately 7.75 hours of sleep per night. Pt has been doing well with cares. She continues to be pleasant with staff and other patients for the most part. She has had a couple of pts that have been overly intrusive with her and she will appropriately holler out for help. Pt continues to show cognition and memory deficits and will accept help when needed. SW will continue to follow along with the APS investigation and seek placement when appropriate to do so. LINDA BLACKWELL Nov 11, 2021 16:14
[2021-11-11] MEDS: traZODone 50 MG TABLET. PO SCH (20:33)
[2021-11-11] MEDS: MELATONIN 3 MG TABLET PO SCH (20:33)
[2021-11-11] MEDS: MIRTAZAPINE 15 MG TABLET PO SCH (20:34)
[2021-11-11] MEDS: SERTRALINE 50 MG TABLET. PO SCH (20:34)
--- NOTE | 2021-11-11 22:01 | PDOC ---
Exam Note: Troy Note: Please also refer to the separate dictated note~for this date of service dictated separately.~Patient seen individually. Discussed the patient with Nursing staff reviewed the chart.~Reviewed interim history and current functioning. Reviewed vital signs,~Labs/ Radiology~and current medications noted below. Continue current treatment with the changes noted in the dictated addendum note Assessment: Vital Signs/I&O: Vital Signs Date Time Temp Pulse Resp B/P (MAP) Pulse Ox O2 Delivery O2 Flow Rate FiO2 11/11/21 15:42 97.3 65 20 143/72 (95) 96 11/08/21 15:45 Room Air I & O 11/10/21 11/10/21 11/11/21 15:00 23:00 07:00 Intake Total 600 ml 440 ml Balance 600 ml 440 ml Labs: Laboratory Tests Test 11/11/21 00:04 11/11/21 07:28 Urine Collection Type Unknown Urine Color Yellow Urine Clarity Hazy Urine pH 5.5 Urine Specific [place] >=1.030 Urine Protein Neg (NEG-TRACE) Urine Glucose (UA) Neg mg/dL (NEG) Urine Ketones (Stick) Neg mg/dL (NEG) Urine Blood Neg (NEG) Urine Nitrite Neg (NEG) Urine Bilirubin Neg (NEG) Urine Urobilinogen Dipstick 0.2 mg/dL (0.2 mg/dL) Urine Leukocyte Esterase Mod (NEG) Urine RBC Occ /HPF (0-2) Urine WBC >40 /HPF (0-4) Urine Squamous Epithelial Cells Occ /LPF Urine Bacteria Few /HPF (0-FEW) Glucose (Fingerstick) 125 mg/dL (70-99) H Current Medications: Meds: Laboratory Tests Test 11/11/21 00:04 11/11/21 07:28 Urine Collection Type Unknown Urine Color Yellow Urine Clarity Hazy Urine pH 5.5 Urine Specific [place] >=1.030 Urine Protein Neg Urine Glucose (UA) Neg mg/dL Urine Ketones (Stick) Neg mg/dL Urine Blood Neg Urine Nitrite Neg Urine Bilirubin Neg Urine Urobilinogen Dipstick 0.2 mg/dL Urine Leukocyte Esterase Mod Urine RBC Occ /HPF Urine WBC >40 /HPF Urine Squamous Epithelial Cells Occ /LPF Urine Bacteria Few /HPF Glucose (Fingerstick) 125 mg/dL Current Medications Medications (Trade) Dose Ordered Sig/Richard Route PRN Reason Start Time Stop Time Status Last Admin Dose Admin Acetaminophen (Tylenol) 650 mg PRN Q6HRS PRN PO MILD PAIN / TEMP > 100.3'F 09/27/21 15:00 11/06/21 06:25 Mirtazapine (Remeron) 15 mg QHS PO 09/27/21 21:00 11/11/21 20:34 Olanzapine (ZyPREXA ZYDIS) 2.5 mg PRN Q2HRS PRN PO ANXIETY / AGITATION 09/27/21 15:00 11/03/21 16:47 Quetiapine Fumarate (SEROquel) 25 mg BID PO 09/27/21 21:00 11/11/21 20:34 Sertraline HCl (Zoloft) 50 mg HS PO 09/27/21 21:00 11/11/21 20:34 Trazodone HCl (Desyrel) 25 mg HS PO 09/27/21 21:00 10/05/21 18:14 DC 10/04/21 20:06 Melatonin (Melatonin) 3 mg HS PO 09/27/21 21:00 11/11/21 20:33 Metformin HCl (Glucophage) 500 mg BIDWMEALS PO 09/29/21 17:00 11/11/21 17:00 Nystatin (Nystop) 15 sulma STK-MED ONCE TP 10/04/21 09:36 10/04/21 09:36 DC Trazodone HCl (Desyrel) 50 mg HS PO 10/05/21 21:00 11/11/21 20:33 Trazodone HCl (Desyrel) 50 mg PRN QHS PRN PO INSOMNIA 10/05/21 18:15 11/08/21 20:11 Albuterol/ Ipratropium (Combivent Respimat 20-100 Mcg) 1 puff RTQID INH 10/18/21 20:00 11/11/21 20:33 Azithromycin (Zithromax) 500 mg 1X ONCE PO 10/19/21 16:45 10/19/21 16:46 DC 10/19/21 17:03 Azithromycin (Zithromax) 250 mg DAILY PO 10/20/21 09:00 10/24/21 22:00 DC 10/24/21 08:23 Lactobacillus Rhamnosus (Culturelle) 1 cap BID PO 10/21/21 09:00 3/7/22 20:33 Diclofenac Sodium (Voltaren) 1 sulma TID TP 10/24/21 14:00 11/07/21 12:35 DC 11/06/21 20:18 Prednisone (Prednisone) 60 mg 1X ONCE PO 10/26/21 11:00 10/26/21 11:01 DC 10/26/21 12:17 Diclofenac Sodium (Voltaren) 1 sulma PRN TID PRN TP MUSCLE PAIN 11/07/21 12:45 11/11/21 20:33 I have reviewed the current psychotropics carefully including drug interactions. Risk benefit ratio favors no change other than as noted in my dictated progress note. Diagnosis: Problems: (1) Impulse control disorder, unspecified (2) Anxiety disorder, unspecified (3) Dementia, vascular, with depression (4) Dementia, vascular, with delusions (5) Dementia in Alzheimer's disease with depression (6) Dementia in Alzheimer's disease with delusions (7) Dementia of the Alzheimer's type with early onset with behavioral disturbance (8) Major neurocognitive disorder SOO BAIRES MD Nov 11, 2021 22:01
[2021-11-12] MEDS: traZODone 50 MG TABLET. PO PRN (00:12)
[2021-11-12 06:33] VITALS: BP 123/55
[2021-11-12] MEDS: QUEtiapine 25 MG TABLET. PO SCH ×2 (07:48→19:33)
[2021-11-12] MEDS: IPRATROPIUM/ALBUTEROL 20/100mcg/INH INHALER. INH SCH ×4 (07:48→19:33)
[2021-11-12] MEDS: metFORMIN 500 MG TABLET PO SCH ×2 (07:48→17:11)
[2021-11-12] MEDS: LACTOBACILLUS RHAMNOSUS GG 1 CAPSULE. PO SCH ×2 (07:48→19:33)
[2021-11-12 15:52] VITALS: BP 134/72
[2021-11-12] MEDS: traZODone 50 MG TABLET. PO SCH (19:33)
[2021-11-12] MEDS: MELATONIN 3 MG TABLET PO SCH (19:33)
[2021-11-12] MEDS: MIRTAZAPINE 15 MG TABLET PO SCH (19:33)
[2021-11-12] MEDS: SERTRALINE 50 MG TABLET. PO SCH (19:33)
--- NOTE | 2021-11-12 21:20 | PDOC ---
Exam Note: Troy Note: Please also refer to the separate dictated note~for this date of service dictated separately.~Patient seen individually. Discussed the patient with Nursing staff reviewed the chart.~Reviewed interim history and current functioning. Reviewed vital signs,~Labs/ Radiology~and current medications noted below. Continue current treatment with the changes noted in the dictated addendum note Assessment: Vital Signs/I&O: Vital Signs Date Time Temp Pulse Resp B/P (MAP) Pulse Ox O2 Delivery O2 Flow Rate FiO2 11/12/21 15:52 97.1 78 18 134/72 (92) 98 11/08/21 15:45 Room Air I & O 11/11/21 11/11/21 11/12/21 15:00 23:00 07:00 Intake Total 1060 ml 720 ml Balance 1060 ml 720 ml Labs: Laboratory Tests Test 11/12/21 07:33 Glucose (Fingerstick) 118 mg/dL (70-99) H Current Medications: Meds: Laboratory Tests Test 11/12/21 07:33 Glucose (Fingerstick) 118 mg/dL Current Medications Medications (Trade) Dose Ordered Sig/Richard Route PRN Reason Start Time Stop Time Status Last Admin Dose Admin Acetaminophen (Tylenol) 650 mg PRN Q6HRS PRN PO MILD PAIN / TEMP > 100.3'F 09/27/21 15:00 11/06/21 06:25 Mirtazapine (Remeron) 15 mg QHS PO 09/27/21 21:00 11/12/21 19:33 Olanzapine (ZyPREXA ZYDIS) 2.5 mg PRN Q2HRS PRN PO ANXIETY / AGITATION 09/27/21 15:00 11/12/21 19:36 Quetiapine Fumarate (SEROquel) 25 mg BID PO 09/27/21 21:00 11/12/21 19:33 Sertraline HCl (Zoloft) 50 mg HS PO 09/27/21 21:00 11/12/21 19:33 Trazodone HCl (Desyrel) 25 mg HS PO 09/27/21 21:00 10/05/21 18:14 DC 10/04/21 20:06 Melatonin (Melatonin) 3 mg HS PO 09/27/21 21:00 11/12/21 19:33 Metformin HCl (Glucophage) 500 mg BIDWMEALS PO 09/29/21 17:00 11/12/21 17:11 Nystatin (Nystop) 15 sulma STK-MED ONCE TP 10/04/21 09:36 10/04/21 09:36 DC Trazodone HCl (Desyrel) 50 mg HS PO 10/05/21 21:00 11/12/21 19:33 Trazodone HCl (Desyrel) 50 mg PRN QHS PRN PO INSOMNIA 10/05/21 18:15 11/12/21 00:12 Albuterol/ Ipratropium (Combivent Respimat 20-100 Mcg) 1 puff RTQID INH 10/18/21 20:00 11/12/21 19:33 Azithromycin (Zithromax) 500 mg 1X ONCE PO 10/19/21 16:45 10/19/21 16:46 DC 10/19/21 17:03 Azithromycin (Zithromax) 250 mg DAILY PO 10/20/21 09:00 10/24/21 22:00 DC 10/24/21 08:23 Lactobacillus Rhamnosus (Culturelle) 1 cap BID PO 10/21/21 09:00 11/12/21 19:33 Diclofenac Sodium (Voltaren) 1 sulma TID TP 10/24/21 14:00 11/07/21 12:35 DC 11/06/21 20:18 Prednisone (Prednisone) 60 mg 1X ONCE PO 10/26/21 11:00 10/26/21 11:01 DC 10/26/21 12:17 Diclofenac Sodium (Voltaren) 1 sulma PRN TID PRN TP MUSCLE PAIN 11/07/21 12:45 11/11/21 20:33 I have reviewed the current psychotropics carefully including drug interactions. Risk benefit ratio favors no change other than as noted in my dictated progress note. Diagnosis: Problems: (1) Impulse control disorder, unspecified (2) Anxiety disorder, unspecified (3) Dementia, vascular, with depression (4) Dementia, vascular, with delusions (5) Dementia in Alzheimer's disease with depression (6) Dementia in Alzheimer's disease with delusions (7) Dementia of the Alzheimer's type with early onset with behavioral disturbance (8) Major neurocognitive disorder SOO BAIRES MD Nov 12, 2021 21:20
[2021-11-13 06:08] VITALS: BP 152/70
[2021-11-13] MEDS: QUEtiapine 25 MG TABLET. PO SCH ×2 (08:02→19:43)
[2021-11-13] MEDS: LACTOBACILLUS RHAMNOSUS GG 1 CAPSULE. PO SCH ×2 (08:02→19:43)
[2021-11-13] MEDS: IPRATROPIUM/ALBUTEROL 20/100mcg/INH INHALER. INH SCH ×4 (08:02→19:44)
[2021-11-13] MEDS: metFORMIN 500 MG TABLET PO SCH ×2 (08:02→17:24)
--- NOTE | 2021-11-13 08:22 | PDOC ---
Exam Note: Troy Note: This note is a late entry for 11/11/2021 covers elements not covered in my initial note. Subjective: The patient was reviewed at treatment team meeting in the morning on 11/11/2021 with Katherine Moreno, Stephani Curry (social work faculty member), Martina, activity therapy, and Liya TANG, discussed and reviewed the chart. Discussed and reviewed her history, diagnoses, psychotropic medications at length. The patient slept 5-1/4 hours previous night. I met with the patient at some length in her room in the evening. Overall the patient is doing better, gets a little confused at times. We are repeating her UA to make sure she does not have UTI. Sleep and appetite are fair. Review of Systems: Ambulation impaired, in wheelchair. She complains of some itching of her skin. No CV, , pulmonary, eye system symptoms on review. She does continue to have sense of humor. Mental Status Exam: The patient is alert and oriented to herself. Insight, judgment, recent memory is impaired. Remote is better. Language function intact. Attention span short. Mood and affect at times labile but improved. Laboratory Data: Reviewed. Impression: Major neurocognitive disorder Alzheimer, vascular, with delusions, depression, behavioral disturbance. Anxiety disorder unspecified. Impulse control disorder unspecified. Plan: Continue current psychotropics. Adjust further as clinically indicated. Assessment: Vital Signs/I&O: Vital Signs Date Time Temp Pulse Resp B/P (MAP) Pulse Ox O2 Delivery O2 Flow Rate FiO2 11/13/21 06:08 97.4 75 18 152/70 (97) 95 11/08/21 15:45 Room Air I & O 11/12/21 11/12/21 11/13/21 15:00 23:00 07:00 Intake Total 600 ml 600 ml Balance 600 ml 600 ml Labs: Laboratory Tests Test 11/13/21 07:16 Glucose (Fingerstick) 116 mg/dL (70-99) H Current Medications: I have reviewed the current psychotropics carefully including drug interactions. Risk benefit ratio favors no change other than as noted in my dictated progress note. Diagnosis: Problems: (1) Impulse control disorder, unspecified (2) Anxiety disorder, unspecified (3) Dementia, vascular, with depression (4) Dementia, vascular, with delusions (5) Dementia in Alzheimer's disease with depression (6) Dementia in Alzheimer's disease with delusions (7) Dementia of the Alzheimer's type with early onset with behavioral disturbance (8) Major neurocognitive disorder SOO BAIRES MD Nov 13, 2021 08:22
--- NOTE | 2021-11-13 08:46 | PDOC ---
Exam Note: Troy Note: This note is a late entry for 11/12/2021 covers elements not covered in my initial note. Subjective: The patient was seen individually on 11/12/2021, discussed and reviewed the chart with Liya TANG. The patient slept 6-1/4 hours previous night. I met with her in the cafeteria. She had eaten her entire supper. She continues to sense of humor. Review of Systems: Ambulation impaired, in wheelchair. No CV, , pulmonary, eye system symptoms on review. Mental Status Exam: The patient is oriented to herself and situation. Speech is coherent, has some latency. Abstraction fair. Computation impaired. Language function intact. Mood and affect remains somewhat anxious, labile but improved. No yelling is noted. Laboratory Data: Reviewed. Impression: Major neurocognitive disorder Alzheimer, vascular, with delusions, depression, behavioral disturbance. Anxiety disorder unspecified. Impulse control disorder unspecified. Plan: Continue current psychotropics. Adjust further as clinically indicated. Assessment: Vital Signs/I&O: Vital Signs Date Time Temp Pulse Resp B/P (MAP) Pulse Ox O2 Delivery O2 Flow Rate FiO2 11/13/21 06:08 97.4 75 18 152/70 (97) 95 11/08/21 15:45 Room Air I & O 11/12/21 11/12/21 11/13/21 15:00 23:00 07:00 Intake Total 600 ml 600 ml Balance 600 ml 600 ml Labs: Laboratory Tests Test 11/13/21 07:16 Glucose (Fingerstick) 116 mg/dL (70-99) H Current Medications: I have reviewed the current psychotropics carefully including drug interactions. Risk benefit ratio favors no change other than as noted in my dictated progress note. Diagnosis: Problems: (1) Impulse control disorder, unspecified (2) Anxiety disorder, unspecified (3) Dementia, vascular, with depression (4) Dementia, vascular, with delusions (5) Dementia in Alzheimer's disease with depression (6) Dementia in Alzheimer's disease with delusions (7) Dementia of the Alzheimer's type with early onset with behavioral disturbance (8) Major neurocognitive disorder SOO BAIRES MD Nov 13, 2021 08:46
[2021-11-13] MEDS: SERTRALINE 50 MG TABLET. PO SCH (19:43)
[2021-11-13] MEDS: traZODone 50 MG TABLET. PO SCH (19:43)
[2021-11-13] MEDS: traZODone 50 MG TABLET. PO PRN (19:43)
[2021-11-13] MEDS: MELATONIN 3 MG TABLET PO SCH (19:43)
[2021-11-13] MEDS: MIRTAZAPINE 15 MG TABLET PO SCH (19:43)
--- NOTE | 2021-11-13 21:11 | PDOC ---
Exam Note: [place] Note: Please also refer to the separate dictated note~for this date of service dictated separately.~Patient seen individually. Discussed the patient with Nursing staff reviewed the chart.~Reviewed interim history and current functioning. Reviewed vital signs,~Labs/ Radiology~and current medications noted below. Continue current treatment with the changes noted in the dictated addendum note Assessment: Vital Signs/I&O: Vital Signs Date Time Temp Pulse Resp B/P (MAP) Pulse Ox O2 Delivery O2 Flow Rate FiO2 11/13/21 06:08 97.4 75 18 152/70 (97) 95 11/08/21 15:45 Room Air I & O 11/12/21 11/12/21 11/13/21 14:59 22:59 06:59 Intake Total 600 ml 600 ml Balance 600 ml 600 ml Labs: Laboratory Tests Test 11/13/21 07:16 Glucose (Fingerstick) 116 mg/dL (70-99) H Current Medications: Meds: Laboratory Tests Test 11/13/21 07:16 Glucose (Fingerstick) 116 mg/dL Current Medications Medications (Trade) Dose Ordered Sig/Richard Route PRN Reason Start Time Stop Time Status Last Admin Dose Admin Acetaminophen (Tylenol) 650 mg PRN Q6HRS PRN PO MILD PAIN / TEMP > 100.3'F 09/27/21 15:00 11/06/21 06:25 Mirtazapine (Remeron) 15 mg QHS PO 09/27/21 21:00 11/13/21 19:43 Olanzapine (ZyPREXA ZYDIS) 2.5 mg PRN Q2HRS PRN PO ANXIETY / AGITATION 09/27/21 15:00 11/13/21 19:44 Quetiapine Fumarate (SEROquel) 25 mg BID PO 09/27/21 21:00 11/13/21 19:43 Sertraline HCl (Zoloft) 50 mg HS PO 09/27/21 21:00 11/13/21 19:43 Trazodone HCl (Desyrel) 25 mg HS PO 09/27/21 21:00 10/05/21 18:14 DC 10/04/21 20:06 Melatonin (Melatonin) 3 mg HS PO 09/27/21 21:00 11/13/21 19:43 Metformin HCl (Glucophage) 500 mg BIDWMEALS PO 09/29/21 17:00 11/13/21 17:24 Nystatin (Nystop) 15 sulma STK-MED ONCE TP 10/04/21 09:36 10/04/21 09:36 DC Trazodone HCl (Desyrel) 50 mg HS PO 10/05/21 21:00 11/13/21 19:43 Trazodone HCl (Desyrel) 50 mg PRN QHS PRN PO INSOMNIA 10/05/21 18:15 11/13/21 19:43 Albuterol/ Ipratropium (Combivent Respimat 20-100 Mcg) 1 puff RTQID INH 10/18/21 20:00 11/13/21 19:44 Azithromycin (Zithromax) 500 mg 1X ONCE PO 10/19/21 16:45 10/19/21 16:46 DC 10/19/21 17:03 Azithromycin (Zithromax) 250 mg DAILY PO 10/20/21 09:00 10/24/21 22:00 DC 10/24/21 08:23 Lactobacillus Rhamnosus (Culturelle) 1 cap BID PO 10/21/21 09:00 11/13/21 19:43 Diclofenac Sodium (Voltaren) 1 sulma TID TP 10/24/21 14:00 11/07/21 12:35 DC 11/06/21 20:18 Prednisone (Prednisone) 60 mg 1X ONCE PO 10/26/21 11:00 10/26/21 11:01 DC 10/26/21 12:17 Diclofenac Sodium (Voltaren) 1 sulma PRN TID PRN TP MUSCLE PAIN 11/07/21 12:45 11/11/21 20:33 I have reviewed the current psychotropics carefully including drug interactions. Risk benefit ratio favors no change other than as noted in my dictated progress note. Diagnosis: Problems: (1) Impulse control disorder, unspecified (2) Anxiety disorder, unspecified (3) Dementia, vascular, with depression (4) Dementia, vascular, with delusions (5) Dementia in Alzheimer's disease with depression (6) Dementia in Alzheimer's disease with delusions (7) Dementia of the Alzheimer's type with early onset with behavioral disturbance (8) Major neurocognitive disorder SOO BAIRES MD Nov 13, 2021 21:11
[2021-11-13 23:00] VITALS: BP 114/54
[2021-11-14 06:07] VITALS: BP 146/68
[2021-11-14] MEDS: QUEtiapine 25 MG TABLET. PO SCH ×2 (08:02→20:30)
[2021-11-14] MEDS: IPRATROPIUM/ALBUTEROL 20/100mcg/INH INHALER. INH SCH ×4 (08:02→20:30)
[2021-11-14] MEDS: LACTOBACILLUS RHAMNOSUS GG 1 CAPSULE. PO SCH ×2 (08:02→20:31)
[2021-11-14] MEDS: metFORMIN 500 MG TABLET PO SCH ×2 (08:02→17:04)
[2021-11-14 16:23] VITALS: BP 142/73
[2021-11-14] MEDS: SERTRALINE 50 MG TABLET. PO SCH (20:30)
[2021-11-14] MEDS: MIRTAZAPINE 15 MG TABLET PO SCH (20:30)
[2021-11-14] MEDS: MELATONIN 3 MG TABLET PO SCH (20:30)
[2021-11-14] MEDS: traZODone 50 MG TABLET. PO SCH (20:31)
[2021-11-14 20:46] LABS: BACTERIA,URINE 0 /HPF (0-FEW); CLARITY,URINE HAZY; COLOR,URINE YELLOW; GLUCOSE,URINE NEG (NEG); NITRITE,URINE NEG (NEG); RBC,URINE 0 /HPF (0-2); SQUAMOUS EPITHELIAL CELL,UR FEW /LPF; UROBILINOGEN,URINE 0.2 mg/dL (0.2 mg/dL); YEAST,URINE PRESENT /HPF
--- NOTE | 2021-11-14 21:34 | PDOC ---
Exam Note: [place] Note: Please also refer to the separate dictated note~for this date of service dictated separately.~Patient seen individually. Discussed the patient with Nursing staff reviewed the chart.~Reviewed interim history and current functioning. Reviewed vital signs,~Labs/ Radiology~and current medications noted below. Continue current treatment with the changes noted in the dictated addendum note Assessment: Vital Signs/I&O: Vital Signs Date Time Temp Pulse Resp B/P (MAP) Pulse Ox O2 Delivery O2 Flow Rate FiO2 11/14/21 16:23 97.8 85 16 142/73 (96) 97 11/14/21 06:07 Room Air I & O 11/13/21 11/13/21 11/14/21 14:59 22:59 06:59 Intake Total 720 ml 600 ml Balance 720 ml 600 ml Labs: Laboratory Tests Test 11/14/21 07:29 11/14/21 20:20 Glucose (Fingerstick) 130 mg/dL (70-99) H Urine Collection Type Clean catch Urine Color Yellow Urine Clarity Hazy Urine pH 5.5 Urine Specific [place] 1.025 Urine Protein Neg (NEG-TRACE) Urine Glucose (UA) Neg mg/dL (NEG) Urine Ketones (Stick) Neg mg/dL (NEG) Urine Blood Neg (NEG) Urine Nitrite Neg (NEG) Urine Bilirubin Neg (NEG) Urine Urobilinogen Dipstick 0.2 mg/dL (0.2 mg/dL) Urine Leukocyte Esterase Small (NEG) Urine RBC 0 /HPF (0-2) Urine WBC 11-20 /HPF (0-4) Urine Squamous Epithelial Cells Few /LPF Urine Bacteria 0 /HPF (0-FEW) Urine Yeast Present /HPF Current Medications: Meds: Laboratory Tests Test 11/14/21 07:29 11/14/21 20:20 Glucose (Fingerstick) 130 mg/dL Urine Collection Type Clean catch Urine Color Yellow Urine Clarity Hazy Urine pH 5.5 Urine Specific [place] 1.025 Urine Protein Neg Urine Glucose (UA) Neg mg/dL Urine Ketones (Stick) Neg mg/dL Urine Blood Neg Urine Nitrite Neg Urine Bilirubin Neg Urine Urobilinogen Dipstick 0.2 mg/dL Urine Leukocyte Esterase Small Urine RBC 0 /HPF Urine WBC 11-20 /HPF Urine Squamous Epithelial Cells Few /LPF Urine Bacteria 0 /HPF Urine Yeast Present /HPF Current Medications Medications (Trade) Dose Ordered Sig/Richard Route PRN Reason Start Time Stop Time Status Last Admin Dose Admin Acetaminophen (Tylenol) 650 mg PRN Q6HRS PRN PO MILD PAIN / TEMP > 100.3'F 09/27/21 15:00 11/06/21 06:25 Mirtazapine (Remeron) 15 mg QHS PO 09/27/21 21:00 11/14/21 20:30 Olanzapine (ZyPREXA ZYDIS) 2.5 mg PRN Q2HRS PRN PO ANXIETY / AGITATION 09/27/21 15:00 11/13/21 19:44 Quetiapine Fumarate (SEROquel) 25 mg BID PO 09/27/21 21:00 11/14/21 20:30 Sertraline HCl (Zoloft) 50 mg HS PO 09/27/21 21:00 11/14/21 20:30 Trazodone HCl (Desyrel) 25 mg HS PO 09/27/21 21:00 10/05/21 18:14 DC 10/04/21 20:06 Melatonin (Melatonin) 3 mg HS PO 09/27/21 21:00 11/14/21 20:30 Metformin HCl (Glucophage) 500 mg BIDWMEALS PO 09/29/21 17:00 11/14/21 17:04 Nystatin (Nystop) 15 sulma STK-MED ONCE TP 10/04/21 09:36 10/04/21 09:36 DC Trazodone HCl (Desyrel) 50 mg HS PO 10/05/21 21:00 11/14/21 20:31 Trazodone HCl (Desyrel) 50 mg PRN QHS PRN PO INSOMNIA 10/05/21 18:15 11/13/21 19:43 Albuterol/ Ipratropium (Combivent Respimat 20-100 Mcg) 1 puff RTQID INH 10/18/21 20:00 11/14/21 20:30 Azithromycin (Zithromax) 500 mg 1X ONCE PO 10/19/21 16:45 10/19/21 16:46 DC 10/19/21 17:03 Azithromycin (Zithromax) 250 mg DAILY PO 10/20/21 09:00 10/24/21 22:00 DC 10/24/21 08:23 Lactobacillus Rhamnosus (Culturelle) 1 cap BID PO 10/21/21 09:00 11/14/21 20:31 Diclofenac Sodium (Voltaren) 1 sulma TID TP 10/24/21 14:00 11/07/21 12:35 DC 11/06/21 20:18 Prednisone (Prednisone) 60 mg 1X ONCE PO 10/26/21 11:00 10/26/21 11:01 DC 10/26/21 12:17 Diclofenac Sodium (Voltaren) 1 sulma PRN TID PRN TP MUSCLE PAIN 11/07/21 12:45 11/11/21 20:33 I have reviewed the current psychotropics carefully including drug interactions. Risk benefit ratio favors no change other than as noted in my dictated progress note. Diagnosis: Problems: (1) Impulse control disorder, unspecified (2) Anxiety disorder, unspecified (3) Dementia, vascular, with depression (4) Dementia, vascular, with delusions (5) Dementia in Alzheimer's disease with depression (6) Dementia in Alzheimer's disease with delusions (7) Dementia of the Alzheimer's type with early onset with behavioral disturbance (8) Major neurocognitive disorder SOO BAIRES MD Nov 14, 2021 21:33
[2021-11-15 06:10] VITALS: BP_SYST 132; BP_SYST 143; BP_DIAS 74; BP_DIAS 83
[2021-11-15] MEDS: IPRATROPIUM/ALBUTEROL 20/100mcg/INH INHALER. INH SCH ×4 (07:49→19:47)
[2021-11-15] MEDS: LACTOBACILLUS RHAMNOSUS GG 1 CAPSULE. PO SCH ×2 (07:49→19:48)
[2021-11-15] MEDS: QUEtiapine 25 MG TABLET. PO SCH ×2 (07:49→19:49)
[2021-11-15] MEDS: metFORMIN 500 MG TABLET PO SCH ×2 (07:49→17:09)
--- NOTE | 2021-11-15 07:52 | PDOC ---
Exam Note: [place] Note: This note is a late entry for 11/13/2021 covers elements not covered in my initial note. Subjective: The patient was seen individually on 11/13/2021, discussed and reviewed the chart with Nikia TANG. The patient slept 7 hours previous night. I met with her in her room. She has been yelling, less labile in her mood. Review of Systems: Ambulation impaired, in wheelchair. No CV, , pulmonary, eye system symptoms on review. Mental Status Exam: The patient is oriented to herself and situation. Speech is coherent, has some latency. Abstraction fair. Computation impaired. Language function intact. Mood and affect anxious, less labile. Laboratory Data: Reviewed. Impression: Major neurocognitive disorder Alzheimer, vascular, with delusions, depression, behavioral disturbance. Anxiety disorder unspecified. Impulse control disorder unspecified. Plan: Continue current psychotropics. Adjust further as clinically indicated. Assessment: Vital Signs/I&O: Vital Signs Date Time Temp Pulse Resp B/P (MAP) Pulse Ox O2 Delivery O2 Flow Rate FiO2 11/15/21 06:10 97.5 70 19 143/83 (103) 97 11/14/21 06:07 Room Air I & O 11/14/21 11/14/21 11/15/21 15:00 23:00 07:00 Intake Total 840 ml 600 ml Balance 840 ml 600 ml Labs: Laboratory Tests Test 11/14/21 20:20 11/15/21 07:45 Urine Collection Type Clean catch Urine Color Yellow Urine Clarity Hazy Urine pH 5.5 Urine Specific [place] 1.025 Urine Protein Neg (NEG-TRACE) Urine Glucose (UA) Neg mg/dL (NEG) Urine Ketones (Stick) Neg mg/dL (NEG) Urine Blood Neg (NEG) Urine Nitrite Neg (NEG) Urine Bilirubin Neg (NEG) Urine Urobilinogen Dipstick 0.2 mg/dL (0.2 mg/dL) Urine Leukocyte Esterase Small (NEG) Urine RBC 0 /HPF (0-2) Urine WBC 11-20 /HPF (0-4) Urine Squamous Epithelial Cells Few /LPF Urine Bacteria 0 /HPF (0-FEW) Urine Yeast Present /HPF Glucose (Fingerstick) 114 mg/dL (70-99) H Current Medications: I have reviewed the current psychotropics carefully including drug interactions. Risk benefit ratio favors no change other than as noted in my dictated progress note. Diagnosis: Problems: (1) Impulse control disorder, unspecified (2) Anxiety disorder, unspecified (3) Dementia, vascular, with depression (4) Dementia, vascular, with delusions (5) Dementia in Alzheimer's disease with depression (6) Dementia in Alzheimer's disease with delusions (7) Dementia of the Alzheimer's type with early onset with behavioral disturbance (8) Major neurocognitive disorder SOO BAIRES MD Nov 15, 2021 07:52
--- NOTE | 2021-11-15 08:35 | PDOC ---
Exam Note: [place] Note: This note is a late entry for 11/14/2021 covers elements not covered in my initial note. Subjective: The patient was seen on telehealth rounds on 11/14/2021, discussed and reviewed the chart with Nikia TANG. The patient slept 7-1/2 hours previous night. I met with her on telehealth rounds in her room. Short-term memory is impaired. She is yelling somewhat more today possibly having nightmares. We will check her UA to rule out UTI. Review of Systems: Ambulation impaired, in wheelchair. No CV, , pulmonary, eye system symptoms on review. Mental Status Exam: The patient is oriented to herself and situation. Speech is coherent, has some latency. Abstraction fair. Computation impaired. Language function intact. Mood and affect anxious. Laboratory Data: Reviewed. Impression: Major neurocognitive disorder Alzheimer, vascular, with delusions, depression, behavioral disturbance. Anxiety disorder unspecified. Impulse control disorder unspecified. Plan: Continue current psychotropics. Adjust further as clinically indicated. Assessment: Vital Signs/I&O: Vital Signs Date Time Temp Pulse Resp B/P (MAP) Pulse Ox O2 Delivery O2 Flow Rate FiO2 11/15/21 06:10 97.5 70 19 143/83 (103) 97 11/14/21 06:07 Room Air I & O 11/14/21 11/14/21 11/15/21 15:00 23:00 07:00 Intake Total 840 ml 600 ml Balance 840 ml 600 ml Labs: Laboratory Tests Test 11/14/21 20:20 11/15/21 07:45 Urine Collection Type Clean catch Urine Color Yellow Urine Clarity Hazy Urine pH 5.5 Urine Specific [place] 1.025 Urine Protein Neg (NEG-TRACE) Urine Glucose (UA) Neg mg/dL (NEG) Urine Ketones (Stick) Neg mg/dL (NEG) Urine Blood Neg (NEG) Urine Nitrite Neg (NEG) Urine Bilirubin Neg (NEG) Urine Urobilinogen Dipstick 0.2 mg/dL (0.2 mg/dL) Urine Leukocyte Esterase Small (NEG) Urine RBC 0 /HPF (0-2) Urine WBC 11-20 /HPF (0-4) Urine Squamous Epithelial Cells Few /LPF Urine Bacteria 0 /HPF (0-FEW) Urine Yeast Present /HPF Glucose (Fingerstick) 114 mg/dL (70-99) H Current Medications: I have reviewed the current psychotropics carefully including drug interactions. Risk benefit ratio favors no change other than as noted in my dictated progress note. Diagnosis: Problems: (1) Impulse control disorder, unspecified (2) Anxiety disorder, unspecified (3) Dementia, vascular, with depression (4) Dementia, vascular, with delusions (5) Dementia in Alzheimer's disease with depression (6) Dementia in Alzheimer's disease with delusions (7) Dementia of the Alzheimer's type with early onset with behavioral disturbance (8) Major neurocognitive disorder SOO BAIRES MD Nov 15, 2021 08:35
[2021-11-15] MEDS: ACETAMINOPHEN 325 MG TABLET PO PRN (11:34)
[2021-11-15 15:58] VITALS: BP 138/61
[2021-11-15] MEDS: traZODone 50 MG TABLET. PO SCH (19:48)
[2021-11-15] MEDS: SERTRALINE 50 MG TABLET. PO SCH (19:49)
[2021-11-15] MEDS: MELATONIN 3 MG TABLET PO SCH (19:49)
[2021-11-15] MEDS: MIRTAZAPINE 15 MG TABLET PO SCH (19:50)
--- NOTE | 2021-11-15 21:17 | PDOC ---
Exam Note: [place] Note: Please also refer to the separate dictated note~for this date of service dictated separately.~Patient seen individually. Discussed the patient with Nursing staff reviewed the chart.~Reviewed interim history and current functioning. Reviewed vital signs,~Labs/ Radiology~and current medications noted below. Continue current treatment with the changes noted in the dictated addendum note Assessment: Vital Signs/I&O: Vital Signs Date Time Temp Pulse Resp B/P (MAP) Pulse Ox O2 Delivery O2 Flow Rate FiO2 11/15/21 15:58 97.7 64 18 138/61 (86) 100 Room Air I & O 11/14/21 11/14/21 11/15/21 15:00 23:00 07:00 Intake Total 840 ml 600 ml Balance 840 ml 600 ml Labs: Laboratory Tests Test 11/15/21 07:45 Glucose (Fingerstick) 114 mg/dL (70-99) H Current Medications: Meds: Laboratory Tests Test 11/15/21 07:45 Glucose (Fingerstick) 114 mg/dL Current Medications Medications (Trade) Dose Ordered Sig/Richard Route PRN Reason Start Time Stop Time Status Last Admin Dose Admin Acetaminophen (Tylenol) 650 mg PRN Q6HRS PRN PO MILD PAIN / TEMP > 100.3'F 09/27/21 15:00 11/15/21 11:34 Mirtazapine (Remeron) 15 mg QHS PO 09/27/21 21:00 11/15/21 19:50 Olanzapine (ZyPREXA ZYDIS) 2.5 mg PRN Q2HRS PRN PO ANXIETY / AGITATION 09/27/21 15:00 11/13/21 19:44 Quetiapine Fumarate (SEROquel) 25 mg BID PO 09/27/21 21:00 11/15/21 19:49 Sertraline HCl (Zoloft) 50 mg HS PO 09/27/21 21:00 11/15/21 19:49 Trazodone HCl (Desyrel) 25 mg HS PO 09/27/21 21:00 10/05/21 18:14 DC 10/04/21 20:06 Melatonin (Melatonin) 3 mg HS PO 09/27/21 21:00 11/15/21 19:49 Metformin HCl (Glucophage) 500 mg BIDWMEALS PO 09/29/21 17:00 11/15/21 17:09 Nystatin (Nystop) 15 sulma STK-MED ONCE TP 10/04/21 09:36 10/04/21 09:36 DC Trazodone HCl (Desyrel) 50 mg HS PO 10/05/21 21:00 11/15/21 19:48 Trazodone HCl (Desyrel) 50 mg PRN QHS PRN PO INSOMNIA 10/05/21 18:15 11/13/21 19:43 Albuterol/ Ipratropium (Combivent Respimat 20-100 Mcg) 1 puff RTQID INH 10/18/21 20:00 11/15/21 19:47 Azithromycin (Zithromax) 500 mg 1X ONCE PO 10/19/21 16:45 10/19/21 16:46 DC 10/19/21 17:03 Azithromycin (Zithromax) 250 mg DAILY PO 10/20/21 09:00 10/24/21 22:00 DC 10/24/21 08:23 Lactobacillus Rhamnosus (Culturelle) 1 cap BID PO 10/21/21 09:00 11/15/21 19:48 Diclofenac Sodium (Voltaren) 1 sulma TID TP 10/24/21 14:00 11/07/21 12:35 DC 11/06/21 20:18 Prednisone (Prednisone) 60 mg 1X ONCE PO 10/26/21 11:00 10/26/21 11:01 DC 10/26/21 12:17 Diclofenac Sodium (Voltaren) 1 sulma PRN TID PRN TP MUSCLE PAIN 11/07/21 12:45 11/11/21 20:33 I have reviewed the current psychotropics carefully including drug interactions. Risk benefit ratio favors no change other than as noted in my dictated progress note. Diagnosis: Problems: (1) Impulse control disorder, unspecified (2) Anxiety disorder, unspecified (3) Dementia, vascular, with depression (4) Dementia, vascular, with delusions (5) Dementia in Alzheimer's disease with depression (6) Dementia in Alzheimer's disease with delusions (7) Dementia of the Alzheimer's type with early onset with behavioral disturbance (8) Major neurocognitive disorder SOO BAIRES MD Nov 15, 2021 21:17
[2021-11-16 06:30] VITALS: BP 128/66
[2021-11-16 07:44] LABS: BASO % 1 % (0-3); EOS # 0.3 x10^3/uL (0.0-0.7); EOS % 5 % (0-3); HEMATOCRIT 33.4 % (36.0-47.0); HEMOGLOBIN 10.6 g/dL (12.0-15.5); LYMPH # 2.5 x10^3/uL (1.0-4.8); LYMPH % 36 % (24-48); MEAN CORPUSCULAR HEMOGLOBIN 27 pg (25-35); MEAN CORPUSCULAR HGB CONC 32 g/dL (31-37); MEAN CORPUSCULAR VOLUME 83 fL (79-100); MONO # 0.3 x10^3/uL (0.0-1.1); MONO % 5 % (0-9); NEUT # 3.8 x10^3uL (1.8-7.7); NEUT % 54 % (31-73); PLATELET COUNT 187 x10^3/uL (140-400); RED CELL DISTRIBUTION WIDTH 16.5 % (11.5-14.5)
[2021-11-16 07:55] LABS: ALBUMIN 2.9 g/dL (3.4-5.0); ALBUMIN/GLOBULIN RATIO 0.7 (1.0-1.7); CREATININE 0.9 mg/dL (0.6-1.0); GFR 59.7; POTASSIUM 4.4 mmol/L (3.5-5.1); TOTAL BILIRUBIN 0.2 mg/dL (0.2-1.0); TOTAL PROTEIN 7.2 g/dL (6.4-8.2)
[2021-11-16] MEDS: IPRATROPIUM/ALBUTEROL 20/100mcg/INH INHALER. INH SCH ×4 (08:06→20:21)
[2021-11-16] MEDS: QUEtiapine 25 MG TABLET. PO SCH ×2 (08:06→20:23)
[2021-11-16] MEDS: metFORMIN 500 MG TABLET PO SCH ×2 (08:06→17:00)
[2021-11-16] MEDS: LACTOBACILLUS RHAMNOSUS GG 1 CAPSULE. PO SCH ×2 (08:06→20:21)
[2021-11-16] MEDS: DICLOFENAC SODIUM 1% TOPICAL GEL 100GM TUBE. TP PRN (08:06)
[2021-11-16 15:51] VITALS: BP 130/70
[2021-11-16] MEDS: MELATONIN 3 MG TABLET PO SCH (20:21)
[2021-11-16] MEDS: traZODone 50 MG TABLET. PO SCH (20:22)
[2021-11-16] MEDS: SERTRALINE 50 MG TABLET. PO SCH (20:22)
[2021-11-16] MEDS: MIRTAZAPINE 15 MG TABLET PO SCH (20:23)
--- NOTE | 2021-11-16 21:19 | PDOC ---
Exam Note: [place] Note: Please also refer to the separate dictated note~for this date of service dictated separately.~Patient seen individually. Discussed the patient with Nursing staff reviewed the chart.~Reviewed interim history and current functioning. Reviewed vital signs,~Labs/ Radiology~and current medications noted below. Continue current treatment with the changes noted in the dictated addendum note Assessment: Vital Signs/I&O: Vital Signs Date Time Temp Pulse Resp B/P (MAP) Pulse Ox O2 Delivery O2 Flow Rate FiO2 11/16/21 15:51 97.5 72 20 130/70 (90) 96 11/15/21 15:58 Room Air I & O 11/15/21 11/15/21 11/16/21 15:00 23:00 07:00 Intake Total 720 ml 340 ml Output Total 240 ml Balance 480 ml 340 ml Labs: Laboratory Tests Test 11/16/21 07:20 11/16/21 07:31 White Blood Count 7.0 x10^3/uL (4.0-11.0) Red Blood Count 4.00 x10^6/uL (3.50-5.40) Hemoglobin 10.6 g/dL (12.0-15.5) L Hematocrit 33.4 % (36.0-47.0) L Mean Corpuscular Volume 83 fL (79-100) Mean Corpuscular Hemoglobin 27 pg (25-35) Mean Corpuscular Hemoglobin Concent 32 g/dL (31-37) Red Cell Distribution Width 16.5 % (11.5-14.5) H Platelet Count 187 x10^3/uL (140-400) Neutrophils (%) (Auto) 54 % (31-73) Lymphocytes (%) (Auto) 36 % (24-48) Monocytes (%) (Auto) 5 % (0-9) Eosinophils (%) (Auto) 5 % (0-3) H Basophils (%) (Auto) 1 % (0-3) Neutrophils # (Auto) 3.8 x10^3uL (1.8-7.7) Lymphocytes # (Auto) 2.5 x10^3/uL (1.0-4.8) Monocytes # (Auto) 0.3 x10^3/uL (0.0-1.1) Eosinophils # (Auto) 0.3 x10^3/uL (0.0-0.7) Basophils # (Auto) 0.0 x10^3/uL (0.0-0.2) Sodium Level 141 mmol/L (136-145) Potassium Level 4.4 mmol/L (3.5-5.1) Chloride Level 107 mmol/L (98-107) Carbon Dioxide Level 27 mmol/L (21-32) Anion Gap 7 (6-14) Blood Urea Nitrogen 28 mg/dL (7-20) H Creatinine 0.9 mg/dL (0.6-1.0) Estimated GFR (Cockcroft-Gault) 59.7 BUN/Creatinine Ratio 31 (6-20) H Glucose Level 101 mg/dL (70-99) H Calcium Level 9.0 mg/dL (8.5-10.1) Total Bilirubin 0.2 mg/dL (0.2-1.0) Aspartate Amino Transferase (AST) 14 U/L (15-37) L Alanine Aminotransferase (ALT) 21 U/L (14-59) Alkaline Phosphatase 123 U/L (46-116) H Total Protein 7.2 g/dL (6.4-8.2) Albumin 2.9 g/dL (3.4-5.0) L Albumin/Globulin Ratio 0.7 (1.0-1.7) L Glucose (Fingerstick) 104 mg/dL (70-99) H Current Medications: Meds: Laboratory Tests Test 11/16/21 07:20 11/16/21 07:31 White Blood Count 7.0 x10^3/uL Red Blood Count 4.00 x10^6/uL Hemoglobin 10.6 g/dL Hematocrit 33.4 % Mean Corpuscular Volume 83 fL Mean Corpuscular Hemoglobin 27 pg Mean Corpuscular Hemoglobin Concent 32 g/dL Red Cell Distribution Width 16.5 % Platelet Count 187 x10^3/uL Neutrophils (%) (Auto) 54 % Lymphocytes (%) (Auto) 36 % Monocytes (%) (Auto) 5 % Eosinophils (%) (Auto) 5 % Basophils (%) (Auto) 1 % Neutrophils # (Auto) 3.8 x10^3uL Lymphocytes # (Auto) 2.5 x10^3/uL Monocytes # (Auto) 0.3 x10^3/uL Eosinophils # (Auto) 0.3 x10^3/uL Basophils # (Auto) 0.0 x10^3/uL Sodium Level 141 mmol/L Potassium Level 4.4 mmol/L Chloride Level 107 mmol/L Carbon Dioxide Level 27 mmol/L Anion Gap 7 Blood Urea Nitrogen 28 mg/dL Creatinine 0.9 mg/dL Estimated GFR (Cockcroft-Gault) 59.7 BUN/Creatinine Ratio 31 Glucose Level 101 mg/dL Calcium Level 9.0 mg/dL Total Bilirubin 0.2 mg/dL Aspartate Amino Transf (AST/SGOT) 14 U/L Alanine Aminotransferase (ALT/SGPT) 21 U/L Alkaline Phosphatase 123 U/L Total Protein 7.2 g/dL Albumin 2.9 g/dL Albumin/Globulin Ratio 0.7 Glucose (Fingerstick) 104 mg/dL Current Medications Medications (Trade) Dose Ordered Sig/Richard Route PRN Reason Start Time Stop Time Status Last Admin Dose Admin Acetaminophen (Tylenol) 650 mg PRN Q6HRS PRN PO MILD PAIN / TEMP > 100.3'F 09/27/21 15:00 11/15/21 11:34 Mirtazapine (Remeron) 15 mg QHS PO 09/27/21 21:00 11/16/21 20:23 Olanzapine (ZyPREXA ZYDIS) 2.5 mg PRN Q2HRS PRN PO ANXIETY / AGITATION 09/27/21 15:00 11/13/21 19:44 Quetiapine Fumarate (SEROquel) 25 mg BID PO 09/27/21 21:00 11/16/21 20:23 Sertraline HCl (Zoloft) 50 mg HS PO 09/27/21 21:00 11/16/21 20:22 Trazodone HCl (Desyrel) 25 mg HS PO 09/27/21 21:00 10/05/21 18:14 DC 10/04/21 20:06 Melatonin (Melatonin) 3 mg HS PO 09/27/21 21:00 11/16/21 20:21 Metformin HCl (Glucophage) 500 mg BIDWMEALS PO 09/29/21 17:00 11/16/21 17:00 Nystatin (Nystop) 15 sulma STK-MED ONCE TP 10/04/21 09:36 10/04/21 09:36 DC Trazodone HCl (Desyrel) 50 mg HS PO 10/05/21 21:00 11/16/21 20:22 Trazodone HCl (Desyrel) 50 mg PRN QHS PRN PO INSOMNIA 10/05/21 18:15 11/13/21 19:43 Albuterol/ Ipratropium (Combivent Respimat 20-100 Mcg) 1 puff RTQID INH 10/18/21 20:00 11/16/21 20:21 Azithromycin (Zithromax) 500 mg 1X ONCE PO 10/19/21 16:45 10/19/21 16:46 DC 10/19/21 17:03 Azithromycin (Zithromax) 250 mg DAILY PO 10/20/21 09:00 10/24/21 22:00 DC 10/24/21 08:23 Lactobacillus Rhamnosus (Culturelle) 1 cap BID PO 10/21/21 09:00 11/16/21 20:21 Diclofenac Sodium (Voltaren) 1 sulma TID TP 10/24/21 14:00 11/07/21 12:35 DC 11/06/21 20:18 Prednisone (Prednisone) 60 mg 1X ONCE PO 10/26/21 11:00 10/26/21 11:01 DC 10/26/21 12:17 Diclofenac Sodium (Voltaren) 1 sulma PRN TID PRN TP MUSCLE PAIN 11/07/21 12:45 11/16/21 08:06 I have reviewed the current psychotropics carefully including drug interactions. Risk benefit ratio favors no change other than as noted in my dictated progress note. Diagnosis: Problems: (1) Impulse control disorder, unspecified (2) Anxiety disorder, unspecified (3) Dementia, vascular, with depression (4) Dementia, vascular, with delusions (5) Dementia in Alzheimer's disease with depression (6) Dementia in Alzheimer's disease with delusions (7) Dementia of the Alzheimer's type with early onset with behavioral disturbance (8) Major neurocognitive disorder SOO BAIRES MD Nov 16, 2021 21:19
[2021-11-17 06:18] VITALS: BP 127/62
[2021-11-17] MEDS: metFORMIN 500 MG TABLET PO SCH ×2 (08:15→17:02)
[2021-11-17] MEDS: QUEtiapine 25 MG TABLET. PO SCH ×2 (08:15→20:19)
[2021-11-17] MEDS: LACTOBACILLUS RHAMNOSUS GG 1 CAPSULE. PO SCH ×2 (08:15→20:19)
[2021-11-17] MEDS: IPRATROPIUM/ALBUTEROL 20/100mcg/INH INHALER. INH SCH ×4 (08:16→20:17)
--- NOTE | 2021-11-17 08:35 | PDOC ---
Exam Note: [place] Note: This note is a late entry for 11/15/2021 covers elements not covered in my initial note. Subjective: The patient was seen individually on 11/15/2021, discussed and reviewed the chart with Nikia TANG. The patient slept 7-3/4 hours previous night. She has been yelling out at times, needing assistance moving from wheelchair to bed. Apparently during the day she yells out as if she has been dreaming. UA has reflex to culture and could contribute partly to this. Labs to be checked in the morning. I met with her in her room at some length. Review of Systems: Ambulation impaired, in wheelchair. She does complain of some shoulder pain. No CV, , pulmonary, eye system symptoms on review. Mental Status Exam: The patient is oriented to herself and situation. She turned on the light in her room as I entered and despite the above irritability continues to have sense of humor as I met with her. Speech is coherent. Abstraction fair. Computation impaired. Language function intact. Mood and affect anxious. Laboratory Data: Reviewed. Impression: Major neurocognitive disorder Alzheimer, vascular, with delusions, depression, behavioral disturbance. Anxiety disorder unspecified. Impulse control disorder unspecified. Plan: Continue current psychotropics. If the patient has UTI we will treat it. Make further adjustments as clinically indicated. Her psychotic symptoms seemed to have subsided till the recent recurrence of her possible UTI. We will address this first before changing any antipsychotics. Assessment: Vital Signs/I&O: Vital Signs Date Time Temp Pulse Resp B/P (MAP) Pulse Ox O2 Delivery O2 Flow Rate FiO2 11/17/21 06:18 97.9 83 18 127/62 (83) 94 Room Air I & O 11/16/21 11/16/21 11/17/21 14:59 22:59 06:59 Intake Total 380 ml 500 ml Balance 380 ml 500 ml Labs: Laboratory Tests Test 11/17/21 08:09 Glucose (Fingerstick) 97 mg/dL (70-99) Current Medications: I have reviewed the current psychotropics carefully including drug interactions. Risk benefit ratio favors no change other than as noted in my dictated progress note. Diagnosis: Problems: (1) Impulse control disorder, unspecified (2) Anxiety disorder, unspecified (3) Dementia, vascular, with depression (4) Dementia, vascular, with delusions (5) Dementia in Alzheimer's disease with depression (6) Dementia in Alzheimer's disease with delusions (7) Dementia of the Alzheimer's type with early onset with behavioral disturbance (8) Major neurocognitive disorder SOO BAIRES MD Nov 17, 2021 08:34
--- NOTE | 2021-11-17 09:14 | PDOC ---
Exam Note: [place] Note: This note is a late entry for 11/16/2021 covers elements not covered in my initial note. Subjective: The patient was seen individually on 11/16/2021, discussed and reviewed the chart with Desi TANG. The patient slept 7-3/4 hours previous night. She has been yelling, irritable with some mood lability. UA has reflex to culture. We will await results before treating. Review of Systems: Ambulation impaired, in wheelchair. She complains of pain in the left arm. No CV, , pulmonary, eye system symptoms on review. Mental Status Exam: The patient is oriented to herself and situation. Speech is coherent. Abstraction fair. Computation impaired. Language function intact. Mood and affect anxious. Laboratory Data: Reviewed. Impression: Major neurocognitive disorder Alzheimer, vascular, with delusions, depression, behavioral disturbance. Anxiety disorder unspecified. Impulse control disorder unspecified. Plan: Continue current psychotropics. We will await the UA. Treat the UTI if it is positive which should help her psychiatric symptoms as well. Assessment: Vital Signs/I&O: Vital Signs Date Time Temp Pulse Resp B/P (MAP) Pulse Ox O2 Delivery O2 Flow Rate FiO2 11/17/21 06:18 97.9 83 18 127/62 (83) 94 Room Air I & O 11/16/21 11/16/21 11/17/21 15:00 23:00 07:00 Intake Total 380 ml 500 ml Balance 380 ml 500 ml Labs: Laboratory Tests Test 11/17/21 08:09 Glucose (Fingerstick) 97 mg/dL (70-99) Current Medications: I have reviewed the current psychotropics carefully including drug interactions. Risk benefit ratio favors no change other than as noted in my dictated progress note. Diagnosis: Problems: (1) Impulse control disorder, unspecified (2) Anxiety disorder, unspecified (3) Dementia, vascular, with depression (4) Dementia, vascular, with delusions (5) Dementia in Alzheimer's disease with depression (6) Dementia in Alzheimer's disease with delusions (7) Dementia of the Alzheimer's type with early onset with behavioral disturbance (8) Major neurocognitive disorder SOO BAIRES MD Nov 17, 2021 09:14
[2021-11-17 15:38] VITALS: BP 140/76
[2021-11-17] MEDS: MELATONIN 3 MG TABLET PO SCH (20:19)
[2021-11-17] MEDS: SERTRALINE 50 MG TABLET. PO SCH (20:19)
[2021-11-17] MEDS: MIRTAZAPINE 15 MG TABLET PO SCH (20:20)
[2021-11-17] MEDS: traZODone 50 MG TABLET. PO SCH (20:20)
--- NOTE | 2021-11-17 21:27 | PDOC ---
Exam Note: [place] Note: Please also refer to the separate dictated note~for this date of service dictated separately.~Patient seen individually. Discussed the patient with Nursing staff reviewed the chart.~Reviewed interim history and current functioning. Reviewed vital signs,~Labs/ Radiology~and current medications noted below. Continue current treatment with the changes noted in the dictated addendum note Assessment: Vital Signs/I&O: Vital Signs Date Time Temp Pulse Resp B/P (MAP) Pulse Ox O2 Delivery O2 Flow Rate FiO2 11/17/21 15:38 97.9 72 20 140/76 (97) 98 11/17/21 06:18 Room Air I & O 11/16/21 11/16/21 11/17/21 15:00 23:00 07:00 Intake Total 380 ml 500 ml Balance 380 ml 500 ml Labs: Laboratory Tests Test 11/17/21 08:09 Glucose (Fingerstick) 97 mg/dL (70-99) Current Medications: Meds: Laboratory Tests Test 11/17/21 08:09 Glucose (Fingerstick) 97 mg/dL Current Medications Medications (Trade) Dose Ordered Sig/Richard Route PRN Reason Start Time Stop Time Status Last Admin Dose Admin Acetaminophen (Tylenol) 650 mg PRN Q6HRS PRN PO MILD PAIN / TEMP > 100.3'F 09/27/21 15:00 11/15/21 11:34 Mirtazapine (Remeron) 15 mg QHS PO 09/27/21 21:00 11/17/21 20:20 Olanzapine (ZyPREXA ZYDIS) 2.5 mg PRN Q2HRS PRN PO ANXIETY / AGITATION 09/27/21 15:00 11/13/21 19:44 Quetiapine Fumarate (SEROquel) 25 mg BID PO 09/27/21 21:00 11/17/21 20:19 Sertraline HCl (Zoloft) 50 mg HS PO 09/27/21 21:00 11/17/21 20:19 Trazodone HCl (Desyrel) 25 mg HS PO 09/27/21 21:00 10/05/21 18:14 DC 10/04/21 20:06 Melatonin (Melatonin) 3 mg HS PO 09/27/21 21:00 11/17/21 20:19 Metformin HCl (Glucophage) 500 mg BIDWMEALS PO 09/29/21 17:00 11/17/21 17:02 Nystatin (Nystop) 15 sulma STK-MED ONCE TP 10/04/21 09:36 10/04/21 09:36 DC Trazodone HCl (Desyrel) 50 mg HS PO 10/05/21 21:00 11/17/21 20:20 Trazodone HCl (Desyrel) 50 mg PRN QHS PRN PO INSOMNIA 10/05/21 18:15 11/13/21 19:43 Albuterol/ Ipratropium (Combivent Respimat 20-100 Mcg) 1 puff RTQID INH 10/18/21 20:00 11/17/21 20:17 Azithromycin (Zithromax) 500 mg 1X ONCE PO 10/19/21 16:45 10/19/21 16:46 DC 10/19/21 17:03 Azithromycin (Zithromax) 250 mg DAILY PO 10/20/21 09:00 10/24/21 22:00 DC 10/24/21 08:23 Lactobacillus Rhamnosus (Culturelle) 1 cap BID PO 10/21/21 09:00 11/17/21 20:19 Diclofenac Sodium (Voltaren) 1 sulma TID TP 10/24/21 14:00 11/07/21 12:35 DC 11/06/21 20:18 Prednisone (Prednisone) 60 mg 1X ONCE PO 10/26/21 11:00 10/26/21 11:01 DC 10/26/21 12:17 Diclofenac Sodium (Voltaren) 1 sulma PRN TID PRN TP MUSCLE PAIN 11/07/21 12:45 11/16/21 08:06 I have reviewed the current psychotropics carefully including drug interactions. Risk benefit ratio favors no change other than as noted in my dictated progress note. Diagnosis: Problems: (1) Impulse control disorder, unspecified (2) Anxiety disorder, unspecified (3) Dementia, vascular, with depression (4) Dementia, vascular, with delusions (5) Dementia in Alzheimer's disease with depression (6) Dementia in Alzheimer's disease with delusions (7) Dementia of the Alzheimer's type with early onset with behavioral dist urbance (8) Major neurocognitive disorder SOO BAIRES MD Nov 17, 2021 21:27
[2021-11-18 05:59] VITALS: BP 119/63
[2021-11-18] MEDS: IPRATROPIUM/ALBUTEROL 20/100mcg/INH INHALER. INH SCH ×4 (08:08→19:38)
[2021-11-18] MEDS: metFORMIN 500 MG TABLET PO SCH ×2 (08:08→17:04)
[2021-11-18] MEDS: QUEtiapine 25 MG TABLET. PO SCH ×2 (08:08→19:39)
[2021-11-18] MEDS: LACTOBACILLUS RHAMNOSUS GG 1 CAPSULE. PO SCH ×2 (08:08→19:39)
[2021-11-18 15:34] VITALS: BP 111/56
--- NOTE | 2021-11-18 15:52 | TX PLAN ---
Interdisciplinary Tx Plan Admission Information Sep 27, 2021 at 12:55 Legal Status (on Admission): Voluntary DPOA/Guardian Name: Lucille NieceOscar Bergman Contact Other Contact Name: Jayna Sheikh Contact Verified Code Status: Full Code Allergies: Coded Allergies: No Known Drug Allergies (Unverified , 07/16/21) Diagnoses Primary Diagnosis: 1. 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 Mood disorder, unspecified. Reasons for Admission: Aggressive, Delusions, Agitated, Sig. Change Sleep, Hallucinations, Combative Problem in Patient's Words: Per pt great niece/DPOAАнна who was raised mostly by pt, pt has had a noticable decline over the past year and particularlly over the past couple of months. Up until a year ago, pt was living in her independant living apartment and out of the streetman, she moved to [place], [place] and bought a house that she paid winn for. She was then found to be living in very poor conditions without running water and no utilities and overall unable to care for herself. She had a few past hospitalizations but then release to herself and then would be found again living in unsafe conditions. At one point, pt drove herself to Анна's home, but refused to come in to stay, and would only stay in her car. Анна was finally successful at gaining DPOA during one of pt's hospitalizations and also in getting her license revoked. During the past year, family and staff during the different hospitalizations discovered pt was having hallucinations and delusions that seem to continue. Анна is concerned if pt is struggling with onset of dementia or if pt is truly experiencing psychosis and might clear in the future with medication management. Additional Admission Comments: Per intake record, pt refusing UA and cath, sexually inappropriate comments to staff, not sleeping for 30 hours, combative to staff, delusions,auditory hallucinations, verbally aggressive, screaming, cussing, disruptive. Problems Active Problems: Agitation Inactive Problems: Pt has shown improvements. She is less aggressive, delusional, and combative. She, also, is sleeping better. Pt Strengths/Limitations Ability for [place]: Poor Cognitive Functioning/Ability: Poor Communication Skills/Ability: Fair Financial Resources: Fair Insight/Judgement: Poor Intellectual Ability: Fair Physical Health: Poor Social Skills: Fair Stability in Family: Fair Stability in School/Work: Fair Verbal Skills: Fair Discharge Criteria Discharge Criteria: Adequate arrangements @DC, Verbal commit med comply, Improved behavior, Improved mood/thought Other Discharge Comments: None at this time. Preliminary Discharge Plan Preliminary DC Plan: Placement Needed Special Precautions Special Precautions: Agitation/Assault, Swallowing/Choking Fall Risk: High Other Precautions (specify): Pt has a history of falls. Initial D/C Plan Pt will need placement at time of discharge. Identified Discharge Needs: None at this time. Currently Utilized Resources Currently Utilized Resources/P: Great Niece/DPOA-Анна Jj has hired and failure analysis engineer to assist with guardianship. Prior to Admission: PCP-Dr. Quang Raza Facility-[facility]; contact-CHANA Cruz *Note-Pt will not return to [facility] Referrals Community Resources: None known at this time. Identified Problems/Hx/Goals Objectives/Short-Term Goals Short Term Goals: Control abnormal behavior, Dec. Aggression, Dec. Anxiety/Panic, Dec. Hallucination/Delus, Dec. Outbursts, Medication Stabilization, Monitor Med Effects, Prevent Deterioration, Promote Coping Skill Short Term Goals in Patient's: Assist with proper diagnosis of psychosis vs dementia. Interventions/Frequency Staff Interventions/Frequency&: Psychiatry to assess pt three times per week for medication management. Nursing to assess behaviors, monitor medications, and complete 15 minute checks daily. Social work to see pt at least two times weekly to aid in return to placement. Activities to encourage pt to participate in group activities daily. 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 Education: According to DPOA, pt received a high school diploma and she had some technical college. Community Follow-up PCP Community Provider/Family Inpu: Pt great nigregorio/Анна LANG, provided pt history for the development of the treatment plan. Анна is available for further information should it be needed. 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 Also, pt has been averaging 7 hours of sleep each night. She continues to take naps during the daytime. Staff notice that she is possibly having nightmares as she will yell out "help me, help me, help me," but when staff respond she does not remember why she is hollering out. Pt seems to mostly be in good spirits and interacts well with other people including staff and patients. Pt has been cooperative with taking her medications and accepts help during her cares. Pt has intermittently attended groups where she has participated in some exercises. SW has not received anything from the APS report. CHANA will attempt to follow up again on that to see if any information can be obtained. Placement will be sought as soon as more is known on guardianship. LINDA BLACKWELL Nov 18, 2021 15:51
[2021-11-18] MEDS: MELATONIN 3 MG TABLET PO SCH (19:38)
[2021-11-18] MEDS: traZODone 50 MG TABLET. PO SCH (19:39)
[2021-11-18] MEDS: SERTRALINE 50 MG TABLET. PO SCH (19:39)
[2021-11-18] MEDS: MIRTAZAPINE 15 MG TABLET PO SCH (19:39)
--- NOTE | 2021-11-18 21:48 | PDOC ---
Exam Note: [place] Note: Please also refer to the separate dictated note~for this date of service dictated separately.~Patient seen individually. Discussed the patient with Nursing staff reviewed the chart.~Reviewed interim history and current functioning. Reviewed vital signs,~Labs/ Radiology~and current medications noted below. Continue current treatment with the changes noted in the dictated addendum note Assessment: Vital Signs/I&O: Vital Signs Date Time Temp Pulse Resp B/P (MAP) Pulse Ox O2 Delivery O2 Flow Rate FiO2 11/18/21 15:34 98.1 80 20 111/56 (74) 95 11/17/21 06:18 Room Air I & O 11/17/21 11/17/21 11/18/21 15:00 23:00 07:00 Intake Total 440 ml 720 ml Balance 440 ml 720 ml Labs: Laboratory Tests Test 11/18/21 07:46 Glucose (Fingerstick) 106 mg/dL (70-99) H Current Medications: Meds: Laboratory Tests Test 11/18/21 07:46 Glucose (Fingerstick) 106 mg/dL Current Medications Medications (Trade) Dose Ordered Sig/Richard Route PRN Reason Start Time Stop Time Status Last Admin Dose Admin Acetaminophen (Tylenol) 650 mg PRN Q6HRS PRN PO MILD PAIN / TEMP > 100.3'F 09/27/21 15:00 11/15/21 11:34 Mirtazapine (Remeron) 15 mg QHS PO 09/27/21 21:00 11/18/21 19:39 Olanzapine (ZyPREXA ZYDIS) 2.5 mg PRN Q2HRS PRN PO ANXIETY / AGITATION 09/27/21 15:00 11/13/21 19:44 Quetiapine Fumarate (SEROquel) 25 mg BID PO 09/27/21 21:00 11/18/21 19:39 Sertraline HCl (Zoloft) 50 mg HS PO 09/27/21 21:00 11/18/21 19:39 Trazodone HCl (Desyrel) 25 mg HS PO 09/27/21 21:00 10/05/21 18:14 DC 10/04/21 20:06 Melatonin (Melatonin) 3 mg HS PO 09/27/21 21:00 11/18/21 19:38 Metformin HCl (Glucophage) 500 mg BIDWMEALS PO 09/29/21 17:00 11/18/21 17:04 Nystatin (Nystop) 15 sulma STK-MED ONCE TP 10/04/21 09:36 10/04/21 09:36 DC Trazodone HCl (Desyrel) 50 mg HS PO 10/05/21 21:00 11/18/21 19:39 Trazodone HCl (Desyrel) 50 mg PRN QHS PRN PO INSOMNIA 10/05/21 18:15 11/13/21 19:43 Albuterol/ Ipratropium (Combivent Respimat 20-100 Mcg) 1 puff RTQID INH 10/18/21 20:00 11/18/21 19:38 Azithromycin (Zithromax) 500 mg 1X ONCE PO 10/19/21 16:45 10/19/21 16:46 DC 10/19/21 17:03 Azithromycin (Zithromax) 250 mg DAILY PO 10/20/21 09:00 10/24/21 22:00 DC 10/24/21 08:23 Lactobacillus Rhamnosus (Culturelle) 1 cap BID PO 10/21/21 09:00 11/18/21 19:39 Diclofenac Sodium (Voltaren) 1 sulma TID TP 10/24/21 14:00 11/07/21 12:35 DC 11/06/21 20:18 Prednisone (Prednisone) 60 mg 1X ONCE PO 10/26/21 11:00 10/26/21 11:01 DC 10/26/21 12:17 Diclofenac Sodium (Voltaren) 1 sulma PRN TID PRN TP MUSCLE PAIN 11/07/21 12:45 11/16/21 08:06 I have reviewed the current psychotropics carefully including drug interactions. Risk benefit ratio favors no change other than as noted in my dictated progress note. Diagnosis: Problems: (1) Impulse control disorder, unspecified (2) Anxiety disorder, unspecified (3) Dementia, vascular, with depression (4) Dementia, vascular, with delusions (5) Dementia in Alzheimer's disease with depression (6) Dementia in Alzheimer's disease with delusions (7) Dementia of the Alzheimer's type with early onset with behavioral disturbance (8) Major neurocognitive disorder SOO BAIRES MD Nov 18, 2021 21:48
[2021-11-18] MEDS: traZODone 50 MG TABLET. PO PRN (22:19)
[2021-11-19 06:22] VITALS: BP 109/58
--- NOTE | 2021-11-19 06:39 | PDOC ---
Exam Note: [place] Note: This note is a late entry for 11/17/2021 covers elements not covered in my initial note. Subjective: The patient was seen individually on 11/17/2021, discussed and reviewed the chart with Debbie TANG. The patient slept 6-3/4 hours previous night. I met with her in her room. UA shows some Linda. She has been yelling, irritable with some mood lability. UA has reflex to culture, defer to Dr. Díaz. She has been cooperative, at times anxious. Review of Systems: Ambulation impaired, in wheelchair. No CV, , pulmonary, eye system symptoms on review. Mental Status Exam: The patient is oriented to herself and situation. She is very pleasant, cooperative, confused, having some somatic symptoms. Speech is coherent. Abstraction fair. Computation impaired. Language function intact. Mood and affect anxious. Laboratory Data: Reviewed. Impression: Major neurocognitive disorder Alzheimer, vascular, with delusions, depression, behavioral disturbance. Anxiety disorder unspecified. Impulse control disorder unspecified. Plan: Continue current psychotropics. Assessment: Vital Signs/I&O: Vital Signs Date Time Temp Pulse Resp B/P (MAP) Pulse Ox O2 Delivery O2 Flow Rate FiO2 11/19/21 06:22 97.9 79 16 109/58 (75) 95 11/17/21 06:18 Room Air I & O 11/18/21 11/18/21 11/19/21 15:00 23:00 07:00 Intake Total 840 ml 840 ml Balance 840 ml 840 ml Labs: Laboratory Tests Test 11/18/21 07:46 Glucose (Fingerstick) 106 mg/dL (70-99) H Current Medications: I have reviewed the current psychotropics carefully including drug interactions. Risk benefit ratio favors no change other than as noted in my dictated progress note. Diagnosis: Problems: (1) Impulse control disorder, unspecified (2) Anxiety disorder, unspecified (3) Dementia, vascular, with depression (4) Dementia, vascular, with delusions (5) Dementia in Alzheimer's disease with depression (6) Dementia in Alzheimer's disease with delusions (7) Dementia of the Alzheimer's type with early onset with behavioral disturbance (8) Major neurocognitive disorder SOO BAIRES MD Nov 19, 2021 06:39
[2021-11-19] MEDS: metFORMIN 500 MG TABLET PO SCH ×2 (08:12→17:06)
[2021-11-19] MEDS: LACTOBACILLUS RHAMNOSUS GG 1 CAPSULE. PO SCH ×2 (08:12→19:45)
[2021-11-19] MEDS: QUEtiapine 25 MG TABLET. PO SCH ×2 (08:12→19:45)
[2021-11-19] MEDS: IPRATROPIUM/ALBUTEROL 20/100mcg/INH INHALER. INH SCH ×4 (08:13→19:45)
[2021-11-19 15:49] VITALS: BP 154/70
[2021-11-19] MEDS: MELATONIN 3 MG TABLET PO SCH (19:45)
[2021-11-19] MEDS: SERTRALINE 50 MG TABLET. PO SCH (19:45)
[2021-11-19] MEDS: MIRTAZAPINE 15 MG TABLET PO SCH (19:45)
[2021-11-19] MEDS: traZODone 50 MG TABLET. PO SCH (19:45)
--- NOTE | 2021-11-19 21:33 | PDOC ---
Exam Note: [place] Note: Please also refer to the separate dictated note~for this date of service dictated separately.~Patient seen individually. Discussed the patient with Nursing staff reviewed the chart.~Reviewed interim history and current functioning. Reviewed vital signs,~Labs/ Radiology~and current medications noted below. Continue current treatment with the changes noted in the dictated addendum note Assessment: Vital Signs/I&O: Vital Signs Date Time Temp Pulse Resp B/P (MAP) Pulse Ox O2 Delivery O2 Flow Rate FiO2 11/19/21 15:49 97.6 68 20 154/70 (98) 96 11/17/21 06:18 Room Air I & O 11/18/21 11/18/21 11/19/21 15:00 23:00 07:00 Intake Total 840 ml 840 ml Balance 840 ml 840 ml Labs: Laboratory Tests Test 11/19/21 07:43 Glucose (Fingerstick) 98 mg/dL (70-99) Current Medications: Meds: Laboratory Tests Test 11/19/21 07:43 Glucose (Fingerstick) 98 mg/dL Current Medications Medications (Trade) Dose Ordered Sig/Richard Route PRN Reason Start Time Stop Time Status Last Admin Dose Admin Acetaminophen (Tylenol) 650 mg PRN Q6HRS PRN PO MILD PAIN / TEMP > 100.3'F 09/27/21 15:00 11/15/21 11:34 Mirtazapine (Remeron) 15 mg QHS PO 09/27/21 21:00 11/19/21 19:45 Olanzapine (ZyPREXA ZYDIS) 2.5 mg PRN Q2HRS PRN PO ANXIETY / AGITATION 09/27/21 15:00 11/13/21 19:44 Quetiapine Fumarate (SEROquel) 25 mg BID PO 09/27/21 21:00 11/19/21 19:45 Sertraline HCl (Zoloft) 50 mg HS PO 09/27/21 21:00 11/19/21 19:45 Trazodone HCl (Desyrel) 25 mg HS PO 09/27/21 21:00 10/05/21 18:14 DC 10/04/21 20:06 Melatonin (Melatonin) 3 mg HS PO 09/27/21 21:00 11/19/21 19:45 Metformin HCl (Glucophage) 500 mg BIDWMEALS PO 09/29/21 17:00 11/19/21 17:06 Nystatin (Nystop) 15 sulma STK-MED ONCE TP 10/04/21 09:36 10/04/21 09:36 DC Trazodone HCl (Desyrel) 50 mg HS PO 10/05/21 21:00 11/19/21 19:45 Trazodone HCl (Desyrel) 50 mg PRN QHS PRN PO INSOMNIA 10/05/21 18:15 11/18/21 22:19 Albuterol/ Ipratropium (Combivent Respimat 20-100 Mcg) 1 puff RTQID INH 10/18/21 20:00 11/19/21 19:45 Azithromycin (Zithromax) 500 mg 1X ONCE PO 10/19/21 16:45 10/19/21 16:46 DC 10/19/21 17:03 Azithromycin (Zithromax) 250 mg DAILY PO 10/20/21 09:00 10/24/21 22:00 DC 10/24/21 08:23 Lactobacillus Rhamnosus (Culturelle) 1 cap BID PO 10/21/21 09:00 11/19/21 19:45 Diclofenac Sodium (Voltaren) 1 sulma TID TP 10/24/21 14:00 11/07/21 12:35 DC 11/06/21 20:18 Prednisone (Prednisone) 60 mg 1X ONCE PO 10/26/21 11:00 10/26/21 11:01 DC 10/26/21 12:17 Diclofenac Sodium (Voltaren) 1 sulma PRN TID PRN TP MUSCLE PAIN 11/07/21 12:45 11/16/21 08:06 I have reviewed the current psychotropics carefully including drug interactions. Risk benefit ratio favors no change other than as noted in my dictated progress note. Diagnosis: Problems: (1) Impulse control disorder, unspecified (2) Anxiety disorder, unspecified (3) Dementia, vascular, with depression (4) Dementia, vascular, with delusions (5) Dementia in Alzheimer's disease with depression (6) Dementia in Alzheimer's disease with delusions (7) Dementia of the Alzheimer's type with early onset with behavioral dis turbance (8) Major neurocognitive disorder SOO BAIRES MD Nov 19, 2021 21:33
[2021-11-20 05:34] VITALS: BP 125/62
[2021-11-20] MEDS: IPRATROPIUM/ALBUTEROL 20/100mcg/INH INHALER. INH SCH ×4 (08:00→20:08)
[2021-11-20] MEDS: LACTOBACILLUS RHAMNOSUS GG 1 CAPSULE. PO SCH ×2 (08:20→20:09)
[2021-11-20] MEDS: metFORMIN 500 MG TABLET PO SCH ×2 (08:20→17:06)
[2021-11-20] MEDS: QUEtiapine 25 MG TABLET. PO SCH ×2 (08:20→20:09)
[2021-11-20 15:50] VITALS: BP 129/72
[2021-11-20] MEDS: SERTRALINE 50 MG TABLET. PO SCH (20:09)
[2021-11-20] MEDS: MIRTAZAPINE 15 MG TABLET PO SCH (20:09)
[2021-11-20] MEDS: traZODone 50 MG TABLET. PO SCH (20:09)
[2021-11-20] MEDS: MELATONIN 3 MG TABLET PO SCH (20:09)
--- NOTE | 2021-11-20 21:41 | PDOC ---
Exam Note: [place] Note: This note is a late entry for 11/18/2021 covers elements not covered in my initial note. Subjective: The patient was reviewed at treatment team meeting individually in the morning on 11/18/2021 with Katherine Moreno, Eliza Muniz, and Stephani Curry (manager social media), Martina, activity therapy, and Nikia TANG, discussed and reviewed the chart. The patient slept 9-1/4 hours previous night. Discussed the patients diagnoses, progress, placement options. Yelling is less and she does better if she is not rushed and whatever is being asked of her. Despite her obesity and being in a wheelchair, she is still fairly agile. She attended one group in the past one week. I met with her in her room in the evening. Review of Systems: Ambulation impaired, in wheelchair. No CV, , pulmonary, eye system symptoms on review. Mental Status Exam: The patient is oriented to herself and situation. She is pleasant, verbal, interactive as I met with her in her room but short-term memory is impaired. Speech is coherent. Abstraction fair. Computation impaired. Language function intact. Mood and affect anxious. Laboratory Data: Reviewed. Impression: Major neurocognitive disorder Alzheimer, vascular, with delusions, depression, behavioral disturbance. Anxiety disorder unspecified. Impulse control disorder unspecified. Plan: Continue current psychotropics mentioned in my initial note. Adjust further as clinically indicated. Assessment: Vital Signs/I&O: Vital Signs Date Time Temp Pulse Resp B/P (MAP) Pulse Ox O2 Delivery O2 Flow Rate FiO2 11/20/21 15:50 97.2 69 16 129/72 (91) 98 Room Air I & O 11/19/21 11/19/21 11/20/21 15:00 23:00 07:00 Intake Total 480 ml 480 ml Balance 480 ml 480 ml Labs: Laboratory Tests Test 11/20/21 07:43 Glucose (Fingerstick) 98 mg/dL (70-99) Current Medications: I have reviewed the current psychotropics carefully including drug interactions. Risk benefit ratio favors no change other than as noted in my dictated progress note. Diagnosis: Problems: (1) Impulse control disorder, unspecified (2) Anxiety disorder, unspecified (3) Dementia, vascular, with depression (4) Dementia, vascular, with delusions (5) Dementia in Alzheimer's disease with depression (6) Dementia in Alzheimer's disease with delusions (7) Dementia of the Alzheimer's type with early onset with behavioral disturbance (8) Major neurocognitive disorder SOO BAIRES MD Nov 20, 2021 21:41
--- NOTE | 2021-11-20 21:58 | PDOC ---
Exam Note: [place] Note: This note is a late entry for 11/19/2021 covers elements not covered in my initial note. Subjective: The patient was seen individually on 11/19/2021, discussed and reviewed the chart with Nikia TANG. The patient slept 4-1/4 hours previous night. She did well previous night, sometimes she is up and down with her moods, anxious, wanting assistance with getting up, less anxious today. I met with her in the dayroom. She was watching television but unaware of what she was watching. Review of Systems: Ambulation impaired, in wheelchair. She complains of some pain in her shoulders. No CV, , pulmonary, eye system symptoms on review. Mental Status Exam: The patient is oriented to herself and situation. She is quite pleasant, verbal, interactive. Short-term memory is impaired. Speech is coherent. Abstraction fair. Computation impaired. Language function intact. Mood and affect anxious. Laboratory Data: Reviewed. Impression: Major neurocognitive disorder Alzheimer, vascular, with delusions, depression, behavioral disturbance. Anxiety disorder unspecified. Impulse control disorder unspecified. Plan: Awaiting placement per social service staff. Assessment: Vital Signs/I&O: Vital Signs Date Time Temp Pulse Resp B/P (MAP) Pulse Ox O2 Delivery O2 Flow Rate FiO2 11/20/21 15:50 97.2 69 16 129/72 (91) 98 Room Air I & O 11/19/21 11/19/21 11/20/21 14:59 22:59 06:59 Intake Total 480 ml 480 ml Balance 480 ml 480 ml Labs: Laboratory Tests Test 11/20/21 07:43 Glucose (Fingerstick) 98 mg/dL (70-99) Current Medications: I have reviewed the current psychotropics carefully including drug interactions. Risk benefit ratio favors no change other than as noted in my dictated progress note. Diagnosis: Problems: (1) Impulse control disorder, unspecified (2) Anxiety disorder, unspecified (3) Dementia, vascular, with depression (4) Dementia, vascular, with delusions (5) Dementia in Alzheimer's disease with depression (6) Dementia in Alzheimer's disease with delusions (7) Dementia of the Alzheimer's type with early onset with behavioral disturbance (8) Major neurocognitive disorder SOO BAIRES MD Nov 20, 2021 21:58
--- NOTE | 2021-11-20 21:59 | PDOC ---
Exam Note: [place] Note: Please also refer to the separate dictated note~for this date of service dictated separately.~Patient seen individually. Discussed the patient with Nursing staff reviewed the chart.~Reviewed interim history and current functioning. Reviewed vital signs,~Labs/ Radiology~and current medications noted below. Continue current treatment with the changes noted in the dictated addendum note Assessment: Vital Signs/I&O: Vital Signs Date Time Temp Pulse Resp B/P (MAP) Pulse Ox O2 Delivery O2 Flow Rate FiO2 11/20/21 15:50 97.2 69 16 129/72 (91) 98 Room Air I & O 11/19/21 11/19/21 11/20/21 14:59 22:59 06:59 Intake Total 480 ml 480 ml Balance 480 ml 480 ml Labs: Laboratory Tests Test 11/20/21 07:43 Glucose (Fingerstick) 98 mg/dL (70-99) Current Medications: Meds: Laboratory Tests Test 11/20/21 07:43 Glucose (Fingerstick) 98 mg/dL Current Medications Medications (Trade) Dose Ordered Sig/Richard Route PRN Reason Start Time Stop Time Status Last Admin Dose Admin Acetaminophen (Tylenol) 650 mg PRN Q6HRS PRN PO MILD PAIN / TEMP > 100.3'F 09/27/21 15:00 11/15/21 11:34 Mirtazapine (Remeron) 15 mg QHS PO 09/27/21 21:00 11/20/21 20:09 Olanzapine (ZyPREXA ZYDIS) 2.5 mg PRN Q2HRS PRN PO ANXIETY / AGITATION 09/27/21 15:00 11/13/21 19:44 Quetiapine Fumarate (SEROquel) 25 mg BID PO 09/27/21 21:00 11/20/21 20:09 Sertraline HCl (Zoloft) 50 mg HS PO 09/27/21 21:00 11/20/21 20:09 Trazodone HCl (Desyrel) 25 mg HS PO 09/27/21 21:00 10/05/21 18:14 DC 10/04/21 20:06 Melatonin (Melatonin) 3 mg HS PO 09/27/21 21:00 11/20/21 20:09 Metformin HCl (Glucophage) 500 mg BIDWMEALS PO 09/29/21 17:00 11/20/21 17:06 Nystatin (Nystop) 15 sulma STK-MED ONCE TP 10/04/21 09:36 10/04/21 09:36 DC Trazodone HCl (Desyrel) 50 mg HS PO 10/05/21 21:00 11/20/21 20:09 Trazodone HCl (Desyrel) 50 mg PRN QHS PRN PO INSOMNIA 10/05/21 18:15 11/18/21 22:19 Albuterol/ Ipratropium (Combivent Respimat 20-100 Mcg) 1 puff RTQID INH 10/18/21 20:00 11/20/21 20:08 Azithromycin (Zithromax) 500 mg 1X ONCE PO 10/19/21 16:45 10/19/21 16:46 DC 10/19/21 17:03 Azithromycin (Zithromax) 250 mg DAILY PO 10/20/21 09:00 10/24/21 22:00 DC 10/24/21 08:23 Lactobacillus Rhamnosus (Culturelle) 1 cap BID PO 10/21/21 09:00 11/20/21 20:09 Diclofenac Sodium (Voltaren) 1 sulma TID TP 10/24/21 14:00 11/07/21 12:35 DC 11/06/21 20:18 Prednisone (Prednisone) 60 mg 1X ONCE PO 10/26/21 11:00 10/26/21 11:01 DC 10/26/21 12:17 Diclofenac Sodium (Voltaren) 1 sulma PRN TID PRN TP MUSCLE PAIN 11/07/21 12:45 11/16/21 08:06 I have reviewed the current psychotropics carefully including drug interactions. Risk benefit ratio favors no change other than as noted in my dictated progress note. Diagnosis: Problems: (1) Impulse control disorder, unspecified (2) Anxiety disorder, unspecified (3) Dementia, vascular, with depression (4) Dementia, vascular, with delusions (5) Dementia in Alzheimer's disease with depression (6) Dementia in Alzheimer's disease with delusions (7) Dementia of the Alzheimer's type with early onset with behavioral disturbance (8) Major neurocognitive disorder SOO BAIRES MD Nov 20, 2021 21:58
[2021-11-21 05:50] VITALS: BP 152/70
[2021-11-21] MEDS: IPRATROPIUM/ALBUTEROL 20/100mcg/INH INHALER. INH SCH ×4 (08:00→20:38)
[2021-11-21] MEDS: metFORMIN 500 MG TABLET PO SCH ×2 (08:09→17:18)
[2021-11-21] MEDS: QUEtiapine 25 MG TABLET. PO SCH ×2 (08:09→20:36)
[2021-11-21] MEDS: LACTOBACILLUS RHAMNOSUS GG 1 CAPSULE. PO SCH ×2 (08:09→20:35)
[2021-11-21 16:05] VITALS: BP 130/69
[2021-11-21] MEDS: DICLOFENAC SODIUM 1% TOPICAL GEL 100GM TUBE. TP PRN (17:53)
[2021-11-21] MEDS: traZODone 50 MG TABLET. PO SCH (20:35)
[2021-11-21] MEDS: MIRTAZAPINE 15 MG TABLET PO SCH (20:35)
[2021-11-21] MEDS: SERTRALINE 50 MG TABLET. PO SCH (20:35)
[2021-11-21] MEDS: MELATONIN 3 MG TABLET PO SCH (20:36)
--- NOTE | 2021-11-21 21:59 | PDOC ---
Exam Note: [place] Note: Please also refer to the separate dictated note~for this date of service dictated separately.~Patient seen individually. Discussed the patient with Nursing staff reviewed the chart.~Reviewed interim history and current functioning. Reviewed vital signs,~Labs/ Radiology~and current medications noted below. Continue current treatment with the changes noted in the dictated addendum note Assessment: Vital Signs/I&O: Vital Signs Date Time Temp Pulse Resp B/P (MAP) Pulse Ox O2 Delivery O2 Flow Rate FiO2 11/21/21 16:05 97.7 78 20 130/69 (89) 97 11/21/21 05:50 Room Air I & O 11/20/21 11/20/21 11/21/21 15:00 23:00 07:00 Intake Total 840 ml 600 ml Balance 840 ml 600 ml Labs: Laboratory Tests Test 11/21/21 07:29 Glucose (Fingerstick) 96 mg/dL (70-99) Current Medications: Meds: Laboratory Tests Test 11/21/21 07:29 Glucose (Fingerstick) 96 mg/dL Current Medications Medications (Trade) Dose Ordered Sig/Richard Route PRN Reason Start Time Stop Time Status Last Admin Dose Admin Acetaminophen (Tylenol) 650 mg PRN Q6HRS PRN PO MILD PAIN / TEMP > 100.3'F 09/27/21 15:00 11/15/21 11:34 Mirtazapine (Remeron) 15 mg QHS PO 09/27/21 21:00 11/21/21 20:35 Olanzapine (ZyPREXA ZYDIS) 2.5 mg PRN Q2HRS PRN PO ANXIETY / AGITATION 09/27/21 15:00 11/13/21 19:44 Quetiapine Fumarate (SEROquel) 25 mg BID PO 09/27/21 21:00 11/21/21 20:36 Sertraline HCl (Zoloft) 50 mg HS PO 09/27/21 21:00 11/21/21 20:35 Trazodone HCl (Desyrel) 25 mg HS PO 09/27/21 21:00 10/05/21 18:14 DC 10/04/21 20:06 Melatonin (Melatonin) 3 mg HS PO 09/27/21 21:00 11/21/21 20:36 Metformin HCl (Glucophage) 500 mg BIDWMEALS PO 09/29/21 17:00 11/21/21 17:18 Nystatin (Nystop) 15 sulma STK-MED ONCE TP 10/04/21 09:36 10/04/21 09:36 DC Trazodone HCl (Desyrel) 50 mg HS PO 10/05/21 21:00 11/21/21 20:35 Trazodone HCl (Desyrel) 50 mg PRN QHS PRN PO INSOMNIA 10/05/21 18:15 11/18/21 22:19 Albuterol/ Ipratropium (Combivent Respimat 20-100 Mcg) 1 puff RTQID INH 10/18/21 20:00 11/21/21 20:38 Azithromycin (Zithromax) 500 mg 1X ONCE PO 10/19/21 16:45 10/19/21 16:46 DC 10/19/21 17:03 Azithromycin (Zithromax) 250 mg DAILY PO 10/20/21 09:00 10/24/21 22:00 DC 10/24/21 08:23 Lactobacillus Rhamnosus (Culturelle) 1 cap BID PO 10/21/21 09:00 11/21/21 20:35 Diclofenac Sodium (Voltaren) 1 sulma TID TP 10/24/21 14:00 11/07/21 12:35 DC 11/06/21 20:18 Prednisone (Prednisone) 60 mg 1X ONCE PO 10/26/21 11:00 10/26/21 11:01 DC 10/26/21 12:17 Diclofenac Sodium (Voltaren) 1 sulma PRN TID PRN TP MUSCLE PAIN 11/07/21 12:45 11/21/21 17:53 I have reviewed the current psychotropics carefully including drug interactions. Risk benefit ratio favors no change other than as noted in my dictated progress note. Diagnosis: Problems: (1) Impulse control disorder, unspecified (2) Anxiety disorder, unspecified (3) Dementia, vascular, with depression (4) Dementia, vascular, with delusions (5) Dementia in Alzheimer's disease with depression (6) Dementia in Alzheimer's disease with delusions (7) Dementia of the Alzheimer's type with early onset with behavioral dis turbance (8) Major neurocognitive disorder SOO BAIRES MD Nov 21, 2021 21:59
[2021-11-22 06:14] VITALS: BP 134/71
[2021-11-22] MEDS: metFORMIN 500 MG TABLET PO SCH ×2 (08:06→17:00)
[2021-11-22] MEDS: QUEtiapine 25 MG TABLET. PO SCH ×2 (08:06→19:55)
[2021-11-22] MEDS: LACTOBACILLUS RHAMNOSUS GG 1 CAPSULE. PO SCH ×2 (08:06→19:55)
[2021-11-22] MEDS: IPRATROPIUM/ALBUTEROL 20/100mcg/INH INHALER. INH SCH ×4 (08:07→19:55)
[2021-11-22 16:13] VITALS: BP 126/65
[2021-11-22] MEDS: SERTRALINE 50 MG TABLET. PO SCH (19:55)
[2021-11-22] MEDS: MIRTAZAPINE 15 MG TABLET PO SCH (19:55)
[2021-11-22] MEDS: MELATONIN 3 MG TABLET PO SCH (19:55)
[2021-11-22] MEDS: traZODone 50 MG TABLET. PO SCH (19:55)
--- NOTE | 2021-11-22 21:50 | PDOC ---
Exam Note: [place] Note: Please also refer to the separate dictated note~for this date of service dictated separately.~Patient seen individually. Discussed the patient with Nursing staff reviewed the chart.~Reviewed interim history and current functioning. Reviewed vital signs,~Labs/ Radiology~and current medications noted below. Continue current treatment with the changes noted in the dictated addendum note Assessment: Vital Signs/I&O: Vital Signs Date Time Temp Pulse Resp B/P (MAP) Pulse Ox O2 Delivery O2 Flow Rate FiO2 11/22/21 16:13 97.2 53 20 126/65 (85) 96 11/22/21 06:14 Room Air I & O 11/21/21 11/21/21 11/22/21 14:59 22:59 06:59 Intake Total 820 ml 720 ml Balance 820 ml 720 ml Labs: Laboratory Tests Test 11/22/21 07:57 Glucose (Fingerstick) 90 mg/dL (70-99) Current Medications: Meds: Laboratory Tests Test 11/22/21 07:57 Glucose (Fingerstick) 90 mg/dL Current Medications Medications (Trade) Dose Ordered Sig/Richard Route PRN Reason Start Time Stop Time Status Last Admin Dose Admin Acetaminophen (Tylenol) 650 mg PRN Q6HRS PRN PO MILD PAIN / TEMP > 100.3'F 09/27/21 15:00 11/15/21 11:34 Mirtazapine (Remeron) 15 mg QHS PO 09/27/21 21:00 11/22/21 19:55 Olanzapine (ZyPREXA ZYDIS) 2.5 mg PRN Q2HRS PRN PO ANXIETY / AGITATION 09/27/21 15:00 11/13/21 19:44 Quetiapine Fumarate (SEROquel) 25 mg BID PO 09/27/21 21:00 11/22/21 19:55 Sertraline HCl (Zoloft) 50 mg HS PO 09/27/21 21:00 11/22/21 19:55 Trazodone HCl (Desyrel) 25 mg HS PO 09/27/21 21:00 10/05/21 18:14 DC 10/04/21 20:06 Melatonin (Melatonin) 3 mg HS PO 09/27/21 21:00 11/22/21 19:55 Metformin HCl (Glucophage) 500 mg BIDWMEALS PO 09/29/21 17:00 11/22/21 17:00 Nystatin (Nystop) 15 sulma STK-MED ONCE TP 10/04/21 09:36 10/04/21 09:36 DC Trazodone HCl (Desyrel) 50 mg HS PO 10/05/21 21:00 11/22/21 19:55 Trazodone HCl (Desyrel) 50 mg PRN QHS PRN PO INSOMNIA 10/05/21 18:15 11/18/21 22:19 Albuterol/ Ipratropium (Combivent Respimat 20-100 Mcg) 1 puff RTQID INH 10/18/21 20:00 11/22/21 19:55 Azithromycin (Zithromax) 500 mg 1X ONCE PO 10/19/21 16:45 10/19/21 16:46 DC 10/19/21 17:03 Azithromycin (Zithromax) 250 mg DAILY PO 10/20/21 09:00 10/24/21 22:00 DC 10/24/21 08:23 Lactobacillus Rhamnosus (Culturelle) 1 cap BID PO 10/21/21 09:00 11/22/21 19:55 Diclofenac Sodium (Voltaren) 1 sulma TID TP 10/24/21 14:00 11/07/21 12:35 DC 11/06/21 20:18 Prednisone (Prednisone) 60 mg 1X ONCE PO 10/26/21 11:00 10/26/21 11:01 DC 10/26/21 12:17 Diclofenac Sodium (Voltaren) 1 sulma PRN TID PRN TP MUSCLE PAIN 11/07/21 12:45 11/21/21 17:53 I have reviewed the current psychotropics carefully including drug interactions. Risk benefit ratio favors no change other than as noted in my dictated progress note. Diagnosis: Problems: (1) Impulse control disorder, unspecified (2) Anxiety disorder, unspecified (3) Dementia, vascular, with depression (4) Dementia, vascular, with delusions (5) Dementia in Alzheimer's disease with depression (6) Dementia in Alzheimer's disease with delusions (7) Dementia of the Alzheimer's type with early onset with behavioral dis turbance (8) Major neurocognitive disorder SOO BAIRES MD Nov 22, 2021 21:50
[2021-11-23 06:01] VITALS: BP 138/70
[2021-11-23 07:58] LABS: BASO % 1 % (0-3); EOS # 0.3 x10^3/uL (0.0-0.7); EOS % 3 % (0-3); HEMATOCRIT 32.5 % (36.0-47.0); HEMOGLOBIN 10.4 g/dL (12.0-15.5); LYMPH # 2.7 x10^3/uL (1.0-4.8); LYMPH % 34 % (24-48); MEAN CORPUSCULAR HEMOGLOBIN 27 pg (25-35); MEAN CORPUSCULAR HGB CONC 32 g/dL (31-37); MEAN CORPUSCULAR VOLUME 83 fL (79-100); MONO # 0.4 x10^3/uL (0.0-1.1); MONO % 5 % (0-9); NEUT # 4.6 x10^3uL (1.8-7.7); NEUT % 58 % (31-73); PLATELET COUNT 205 x10^3/uL (140-400); RED BLOOD COUNT 3.91 x10^6/uL (3.50-5.40); RED CELL DISTRIBUTION WIDTH 16.5 % (11.5-14.5)
[2021-11-23] MEDS: metFORMIN 500 MG TABLET PO SCH ×2 (08:00→17:00)
[2021-11-23 08:14] LABS: ALBUMIN 2.9 g/dL (3.4-5.0); ALBUMIN/GLOBULIN RATIO 0.6 (1.0-1.7); CALCIUM 8.9 mg/dL (8.5-10.1); CREATININE 0.9 mg/dL (0.6-1.0); GFR 59.7; POTASSIUM 4.5 mmol/L (3.5-5.1); TOTAL BILIRUBIN 0.3 mg/dL (0.2-1.0); TOTAL PROTEIN 7.4 g/dL (6.4-8.2)
[2021-11-23] MEDS: LACTOBACILLUS RHAMNOSUS GG 1 CAPSULE. PO SCH ×2 (08:21→20:35)
[2021-11-23] MEDS: QUEtiapine 25 MG TABLET. PO SCH ×2 (08:21→20:35)
[2021-11-23] MEDS: IPRATROPIUM/ALBUTEROL 20/100mcg/INH INHALER. INH SCH ×4 (08:21→20:00)
--- NOTE | 2021-11-23 09:53 | PDOC ---
Exam Note: [place] Note: This note is a late entry for 11/20/2021 covers elements not covered in my initial note. Subjective: The patient was seen individually on 11/20/2021, discussed and reviewed the chart with Ester TANG. The patient slept 7-1/4 hours previous night. Overall she remains confused, but pleasant. She has a sense of humor. I met with her in the dayroom. Review of Systems: Ambulation impaired, in wheelchair. She does have complains of itching at times. No CV, , pulmonary, eye system symptoms on review. Mental Status Exam: The patient is oriented to herself and situation. Speech is coherent. Abstraction fair. Computation impaired. Language function intact. Mood and affect anxious. Laboratory Data: Reviewed. Impression: Major neurocognitive disorder Alzheimer, vascular, with delusions, depression, behavioral disturbance. Anxiety disorder unspecified. Impulse control disorder unspecified. Plan: No change from initial note. Assessment: Vital Signs/I&O: Vital Signs Date Time Temp Pulse Resp B/P (MAP) Pulse Ox O2 Delivery O2 Flow Rate FiO2 11/23/21 06:01 98.3 65 16 138/70 (92) 96 11/22/21 06:14 Room Air I & O 11/22/21 11/22/21 11/23/21 15:00 23:00 07:00 Intake Total 1060 ml 120 ml Balance 1060 ml 120 ml Labs: Laboratory Tests Test 11/23/21 07:34 White Blood Count 8.0 x10^3/uL (4.0-11.0) Red Blood Count 3.91 x10^6/uL (3.50-5.40) Hemoglobin 10.4 g/dL (12.0-15.5) L Hematocrit 32.5 % (36.0-47.0) L Mean Corpuscular Volume 83 fL (79-100) Mean Corpuscular Hemoglobin 27 pg (25-35) Mean Corpuscular Hemoglobin Concent 32 g/dL (31-37) Red Cell Distribution Width 16.5 % (11.5-14.5) H Platelet Count 205 x10^3/uL (140-400) Neutrophils (%) (Auto) 58 % (31-73) Lymphocytes (%) (Auto) 34 % (24-48) Monocytes (%) (Auto) 5 % (0-9) Eosinophils (%) (Auto) 3 % (0-3) Basophils (%) (Auto) 1 % (0-3) Neutrophils # (Auto) 4.6 x10^3uL (1.8-7.7) Lymphocytes # (Auto) 2.7 x10^3/uL (1.0-4.8) Monocytes # (Auto) 0.4 x10^3/uL (0.0-1.1) Eosinophils # (Auto) 0.3 x10^3/uL (0.0-0.7) Basophils # (Auto) 0.0 x10^3/uL (0.0-0.2) Sodium Level 138 mmol/L (136-145) Potassium Level 4.5 mmol/L (3.5-5.1) Chloride Level 108 mmol/L (98-107) H Carbon Dioxide Level 24 mmol/L (21-32) Anion Gap 6 (6-14) Blood Urea Nitrogen 28 mg/dL (7-20) H Creatinine 0.9 mg/dL (0.6-1.0) Estimated GFR (Cockcroft-Gault) 59.7 BUN/Creatinine Ratio 31 (6-20) H Glucose Level 109 mg/dL (70-99) H Glucose (Fingerstick) 93 mg/dL (70-99) Calcium Level 8.9 mg/dL (8.5-10.1) Total Bilirubin 0.3 mg/dL (0.2-1.0) Aspartate Amino Transferase (AST) 17 U/L (15-37) Alanine Aminotransferase (ALT) 22 U/L (14-59) Alkaline Phosphatase 124 U/L (46-116) H Total Protein 7.4 g/dL (6.4-8.2) Albumin 2.9 g/dL (3.4-5.0) L Albumin/Globulin Ratio 0.6 (1.0-1.7) L Current Medications: I have reviewed the current psychotropics carefully including drug interactions. Risk benefit ratio favors no change other than as noted in my dictated progress note. Diagnosis: Problems: (1) Impulse control disorder, unspecified (2) Anxiety disorder, unspecified (3) Dementia, vascular, with depression (4) Dementia, vascular, with delusions (5) Dementia in Alzheimer's disease with depression (6) Dementia in Alzheimer's disease with delusions (7) Dementia of the Alzheimer's type with early onset with behavioral disturbance (8) Major neurocognitive disorder SOO BAIRES MD Nov 23, 2021 09:53
--- NOTE | 2021-11-23 10:04 | PDOC ---
Exam Note: [place] Note: This note is a late entry for 11/21/2021 covers elements not covered in my initial note. Subjective: The patient was seen individually on 11/21/2021, discussed and reviewed the chart with Joni TANG. The patient slept 7-3/4 hours previous night. I met with her in her room. The patient gets somewhat frustrated about one of the other psychotic patients on the unit who has been cursing under her breath. She handled this with a sense of humor. Review of Systems: Ambulation impaired, in wheelchair. No CV, , pulmonary, eye system symptoms on review. Mental Status Exam: The patient is oriented to herself and situation. I saw her in her room. She is pleasant, cooperative, still have some somatic preoccupation with dryness and nursing staff will address this. Speech is coherent. Abstraction fair. Computation impaired. Language function intact. Mood and affect anxious. Laboratory Data: Reviewed. Impression: Major neurocognitive disorder Alzheimer, vascular, with delusions, depression, behavioral disturbance. Anxiety disorder unspecified. Impulse control disorder unspecified. Plan: No change from initial note. Assessment: Vital Signs/I&O: Vital Signs Date Time Temp Pulse Resp B/P (MAP) Pulse Ox O2 Delivery O2 Flow Rate FiO2 11/23/21 06:01 98.3 65 16 138/70 (92) 96 11/22/21 06:14 Room Air I & O 11/22/21 11/22/21 11/23/21 15:00 23:00 07:00 Intake Total 1060 ml 120 ml Balance 1060 ml 120 ml Labs: Laboratory Tests Test 11/23/21 07:34 White Blood Count 8.0 x10^3/uL (4.0-11.0) Red Blood Count 3.91 x10^6/uL (3.50-5.40) Hemoglobin 10.4 g/dL (12.0-15.5) L Hematocrit 32.5 % (36.0-47.0) L Mean Corpuscular Volume 83 fL (79-100) Mean Corpuscular Hemoglobin 27 pg (25-35) Mean Corpuscular Hemoglobin Concent 32 g/dL (31-37) Red Cell Distribution Width 16.5 % (11.5-14.5) H Platelet Count 205 x10^3/uL (140-400) Neutrophils (%) (Auto) 58 % (31-73) Lymphocytes (%) (Auto) 34 % (24-48) Monocytes (%) (Auto) 5 % (0-9) Eosinophils (%) (Auto) 3 % (0-3) Basophils (%) (Auto) 1 % (0-3) Neutrophils # (Auto) 4.6 x10^3uL (1.8-7.7) Lymphocytes # (Auto) 2.7 x10^3/uL (1.0-4.8) Monocytes # (Auto) 0.4 x10^3/uL (0.0-1.1) Eosinophils # (Auto) 0.3 x10^3/uL (0.0-0.7) Basophils # (Auto) 0.0 x10^3/uL (0.0-0.2) Sodium Level 138 mmol/L (136-145) Potassium Level 4.5 mmol/L (3.5-5.1) Chloride Level 108 mmol/L (98-107) H Carbon Dioxide Level 24 mmol/L (21-32) Anion Gap 6 (6-14) Blood Urea Nitrogen 28 mg/dL (7-20) H Creatinine 0.9 mg/dL (0.6-1.0) Estimated GFR (Cockcroft-Gault) 59.7 BUN/Creatinine Ratio 31 (6-20) H Glucose Level 109 mg/dL (70-99) H Glucose (Fingerstick) 93 mg/dL (70-99) Calcium Level 8.9 mg/dL (8.5-10.1) Total Bilirubin 0.3 mg/dL (0.2-1.0) Aspartate Amino Transferase (AST) 17 U/L (15-37) Alanine Aminotransferase (ALT) 22 U/L (14-59) Alkaline Phosphatase 124 U/L (46-116) H Total Protein 7.4 g/dL (6.4-8.2) Albumin 2.9 g/dL (3.4-5.0) L Albumin/Globulin Ratio 0.6 (1.0-1.7) L Current Medications: I have reviewed the current psychotropics carefully including drug interactions. Risk benefit ratio favors no change other than as noted in my dictated progress note. Diagnosis: Problems: (1) Impulse control disorder, unspecified (2) Anxiety disorder, unspecified (3) Dementia, vascular, with depression (4) Dementia, vascular, with delusions (5) Dementia in Alzheimer's disease with depression (6) Dementia in Alzheimer's disease with delusions (7) Dementia of the Alzheimer's type with early onset with behavioral disturbance (8) Major neurocognitive disorder SOO BAIRES MD Nov 23, 2021 10:04
--- NOTE | 2021-11-23 10:17 | PDOC ---
Exam Note: [place] Note: This note is a late entry for 11/22/2021 covers elements not covered in my initial note. Subjective: The patient was seen individually on 11/22/2021, discussed and reviewed the chart with Ester TANG. The patient slept 7 hours previous night. I met with her right after supper and she was seated in the hallway in a wheelchair, quite animated interacting with another demented patient. Review of Systems: Ambulation impaired, in wheelchair. No CV, , pulmonary, eye system symptoms on review. Mental Status Exam: The patient is oriented to herself and situation. She continues to have a good sense of humor, pleasant, interactive, very likable in fact. Speech is coherent. Abstraction fair. Computation impaired. Language function intact. Mood and affect anxious. Laboratory Data: Reviewed. Impression: Major neurocognitive disorder Alzheimer, vascular, with delusions, depression, behavioral disturbance. Anxiety disorder unspecified. Impulse control disorder unspecified. Plan: No change from initial note. Assessment: Vital Signs/I&O: Vital Signs Date Time Temp Pulse Resp B/P (MAP) Pulse Ox O2 Delivery O2 Flow Rate FiO2 11/23/21 06:01 98.3 65 16 138/70 (92) 96 11/22/21 06:14 Room Air I & O 11/22/21 11/22/21 11/23/21 15:00 23:00 07:00 Intake Total 1060 ml 120 ml Balance 1060 ml 120 ml Labs: Laboratory Tests Test 11/23/21 07:34 White Blood Count 8.0 x10^3/uL (4.0-11.0) Red Blood Count 3.91 x10^6/uL (3.50-5.40) Hemoglobin 10.4 g/dL (12.0-15.5) L Hematocrit 32.5 % (36.0-47.0) L Mean Corpuscular Volume 83 fL (79-100) Mean Corpuscular Hemoglobin 27 pg (25-35) Mean Corpuscular Hemoglobin Concent 32 g/dL (31-37) Red Cell Distribution Width 16.5 % (11.5-14.5) H Platelet Count 205 x10^3/uL (140-400) Neutrophils (%) (Auto) 58 % (31-73) Lymphocytes (%) (Auto) 34 % (24-48) Monocytes (%) (Auto) 5 % (0-9) Eosinophils (%) (Auto) 3 % (0-3) Basophils (%) (Auto) 1 % (0-3) Neutrophils # (Auto) 4.6 x10^3uL (1.8-7.7) Lymphocytes # (Auto) 2.7 x10^3/uL (1.0-4.8) Monocytes # (Auto) 0.4 x10^3/uL (0.0-1.1) Eosinophils # (Auto) 0.3 x10^3/uL (0.0-0.7) Basophils # (Auto) 0.0 x10^3/uL (0.0-0.2) Sodium Level 138 mmol/L (136-145) Potassium Level 4.5 mmol/L (3.5-5.1) Chloride Level 108 mmol/L (98-107) H Carbon Dioxide Level 24 mmol/L (21-32) Anion Gap 6 (6-14) Blood Urea Nitrogen 28 mg/dL (7-20) H Creatinine 0.9 mg/dL (0.6-1.0) Estimated GFR (Cockcroft-Gault) 59.7 BUN/Creatinine Ratio 31 (6-20) H Glucose Level 109 mg/dL (70-99) H Glucose (Fingerstick) 93 mg/dL (70-99) Calcium Level 8.9 mg/dL (8.5-10.1) Total Bilirubin 0.3 mg/dL (0.2-1.0) Aspartate Amino Transferase (AST) 17 U/L (15-37) Alanine Aminotransferase (ALT) 22 U/L (14-59) Alkaline Phosphatase 124 U/L (46-116) H Total Protein 7.4 g/dL (6.4-8.2) Albumin 2.9 g/dL (3.4-5.0) L Albumin/Globulin Ratio 0.6 (1.0-1.7) L Current Medications: I have reviewed the current psychotropics carefully including drug interactions. Risk benefit ratio favors no change other than as noted in my dictated progress note. Diagnosis: Problems: (1) Impulse control disorder, unspecified (2) Anxiety disorder, unspecified (3) Dementia, vascular, with depression (4) Dementia, vascular, with delusions (5) Dementia in Alzheimer's disease with depression (6) Dementia in Alzheimer's disease with delusions (7) Dementia of the Alzheimer's type with early onset with behavioral disturbance (8) Major neurocognitive disorder SOO BAIRES MD Nov 23, 2021 10:17
[2021-11-23 15:25] VITALS: BP 130/67
[2021-11-23] MEDS: MIRTAZAPINE 15 MG TABLET PO SCH (20:35)
[2021-11-23] MEDS: traZODone 50 MG TABLET. PO SCH (20:35)
[2021-11-23] MEDS: SERTRALINE 50 MG TABLET. PO SCH (20:35)
[2021-11-23] MEDS: MELATONIN 3 MG TABLET PO SCH (20:35)
--- NOTE | 2021-11-23 21:54 | PDOC ---
Exam Note: [place] Note: Please also refer to the separate dictated note~for this date of service dictated separately.~Patient seen individually. Discussed the patient with Nursing staff reviewed the chart.~Reviewed interim history and current functioning. Reviewed vital signs,~Labs/ Radiology~and current medications noted below. Continue current treatment with the changes noted in the dictated addendum note Assessment: Vital Signs/I&O: Vital Signs Date Time Temp Pulse Resp B/P (MAP) Pulse Ox O2 Delivery O2 Flow Rate FiO2 11/23/21 15:25 97.1 80 16 130/67 (88) 99 11/22/21 06:14 Room Air I & O 11/22/21 11/22/21 11/23/21 15:00 23:00 07:00 Intake Total 1060 ml 120 ml Balance 1060 ml 120 ml Labs: Laboratory Tests Test 11/23/21 07:34 White Blood Count 8.0 x10^3/uL (4.0-11.0) Red Blood Count 3.91 x10^6/uL (3.50-5.40) Hemoglobin 10.4 g/dL (12.0-15.5) L Hematocrit 32.5 % (36.0-47.0) L Mean Corpuscular Volume 83 fL (79-100) Mean Corpuscular Hemoglobin 27 pg (25-35) Mean Corpuscular Hemoglobin Concent 32 g/dL (31-37) Red Cell Distribution Width 16.5 % (11.5-14.5) H Platelet Count 205 x10^3/uL (140-400) Neutrophils (%) (Auto) 58 % (31-73) Lymphocytes (%) (Auto) 34 % (24-48) Monocytes (%) (Auto) 5 % (0-9) Eosinophils (%) (Auto) 3 % (0-3) Basophils (%) (Auto) 1 % (0-3) Neutrophils # (Auto) 4.6 x10^3uL (1.8-7.7) Lymphocytes # (Auto) 2.7 x10^3/uL (1.0-4.8) Monocytes # (Auto) 0.4 x10^3/uL (0.0-1.1) Eosinophils # (Auto) 0.3 x10^3/uL (0.0-0.7) Basophils # (Auto) 0.0 x10^3/uL (0.0-0.2) Sodium Level 138 mmol/L (136-145) Potassium Level 4.5 mmol/L (3.5-5.1) Chloride Level 108 mmol/L (98-107) H Carbon Dioxide Level 24 mmol/L (21-32) Anion Gap 6 (6-14) Blood Urea Nitrogen 28 mg/dL (7-20) H Creatinine 0.9 mg/dL (0.6-1.0) Estimated GFR (Cockcroft-Gault) 59.7 BUN/Creatinine Ratio 31 (6-20) H Glucose Level 109 mg/dL (70-99) H Glucose (Fingerstick) 93 mg/dL (70-99) Calcium Level 8.9 mg/dL (8.5-10.1) Total Bilirubin 0.3 mg/dL (0.2-1.0) Aspartate Amino Transferase (AST) 17 U/L (15-37) Alanine Aminotransferase (ALT) 22 U/L (14-59) Alkaline Phosphatase 124 U/L (46-116) H Total Protein 7.4 g/dL (6.4-8.2) Albumin 2.9 g/dL (3.4-5.0) L Albumin/Globulin Ratio 0.6 (1.0-1.7) L Current Medications: Meds: Laboratory Tests Test 11/23/21 07:34 White Blood Count 8.0 x10^3/uL Red Blood Count 3.91 x10^6/uL Hemoglobin 10.4 g/dL Hematocrit 32.5 % Mean Corpuscular Volume 83 fL Mean Corpuscular Hemoglobin 27 pg Mean Corpuscular Hemoglobin Concent 32 g/dL Red Cell Distribution Width 16.5 % Platelet Count 205 x10^3/uL Neutrophils (%) (Auto) 58 % Lymphocytes (%) (Auto) 34 % Monocytes (%) (Auto) 5 % Eosinophils (%) (Auto) 3 % Basophils (%) (Auto) 1 % Neutrophils # (Auto) 4.6 x10^3uL Lymphocytes # (Auto) 2.7 x10^3/uL Monocytes # (Auto) 0.4 x10^3/uL Eosinophils # (Auto) 0.3 x10^3/uL Basophils # (Auto) 0.0 x10^3/uL Sodium Level 138 mmol/L Potassium Level 4.5 mmol/L Chloride Level 108 mmol/L Carbon Dioxide Level 24 mmol/L Anion Gap 6 Blood Urea Nitrogen 28 mg/dL Creatinine 0.9 mg/dL Estimated GFR (Cockcroft-Gault) 59.7 BUN/Creatinine Ratio 31 Glucose Level 109 mg/dL Glucose (Fingerstick) 93 mg/dL Calcium Level 8.9 mg/dL Total Bilirubin 0.3 mg/dL Aspartate Amino Transf (AST/SGOT) 17 U/L Alanine Aminotransferase (ALT/SGPT) 22 U/L Alkaline Phosphatase 124 U/L Total Protein 7.4 g/dL Albumin 2.9 g/dL Albumin/Globulin Ratio 0.6 Current Medications Medications (Trade) Dose Ordered Sig/Richard Route PRN Reason Start Time Stop Time Status Last Admin Dose Admin Acetaminophen (Tylenol) 650 mg PRN Q6HRS PRN PO MILD PAIN / TEMP > 100.3'F 09/27/21 15:00 11/15/21 11:34 Mirtazapine (Remeron) 15 mg QHS PO 09/27/21 21:00 11/23/21 20:35 Olanzapine (ZyPREXA ZYDIS) 2.5 mg PRN Q2HRS PRN PO ANXIETY / AGITATION 09/27/21 15:00 11/13/21 19:44 Quetiapine Fumarate (SEROquel) 25 mg BID PO 09/27/21 21:00 11/23/21 20:35 Sertraline HCl (Zoloft) 50 mg HS PO 09/27/21 21:00 11/23/21 20:35 Trazodone HCl (Desyrel) 25 mg HS PO 09/27/21 21:00 10/05/21 18:14 DC 10/04/21 20:06 Melatonin (Melatonin) 3 mg HS PO 09/27/21 21:00 11/23/21 20:35 Metformin HCl (Glucophage) 500 mg BIDWMEALS PO 09/29/21 17:00 11/23/21 17:00 Nystatin (Nystop) 15 sulma STK-MED ONCE TP 10/04/21 09:36 10/04/21 09:36 DC Trazodone HCl (Desyrel) 50 mg HS PO 10/05/21 21:00 11/23/21 20:35 Trazodone HCl (Desyrel) 50 mg PRN QHS PRN PO INSOMNIA 10/05/21 18:15 11/18/21 22:19 Albuterol/ Ipratropium (Combivent Respimat 20-100 Mcg) 1 puff RTQID INH 10/18/21 20:00 11/23/21 20:00 Azithromycin (Zithromax) 500 mg 1X ONCE PO 10/19/21 16:45 10/19/21 16:46 DC 10/19/21 17:03 Azithromycin (Zithromax) 250 mg DAILY PO 10/20/21 09:00 10/24/21 22:00 DC 10/24/21 08:23 Lactobacillus Rhamnosus (Culturelle) 1 cap BID PO 10/21/21 09:00 11/23/21 20:35 Diclofenac Sodium (Voltaren) 1 sulma TID TP 10/24/21 14:00 11/07/21 12:35 DC 11/06/21 20:18 Prednisone (Prednisone) 60 mg 1X ONCE PO 10/26/21 11:00 10/26/21 11:01 DC 10/26/21 12:17 Diclofenac Sodium (Voltaren) 1 sulma PRN TID PRN TP MUSCLE PAIN 11/07/21 12:45 11/21/21 17:53 I have reviewed the current psychotropics carefully including drug interactions. Risk benefit ratio favors no change other than as noted in my dictated progress note. Diagnosis: Problems: (1) Impulse control disorder, unspecified (2) Anxiety disorder, unspecified (3) Dementia, vascular, with depression (4) Dementia, vascular, with delusions (5) Dementia in Alzheimer's disease with depression (6) Dementia in Alzheimer's disease with delusions (7) Dementia of the Alzheimer's type with early onset with behavioral disturbance (8) Major neurocognitive disorder SOO BAIRES MD Nov 23, 2021 21:54
[2021-11-24 06:07] VITALS: BP 127/57
[2021-11-24] MEDS: IPRATROPIUM/ALBUTEROL 20/100mcg/INH INHALER. INH SCH ×4 (08:01→20:18)
[2021-11-24] MEDS: LACTOBACILLUS RHAMNOSUS GG 1 CAPSULE. PO SCH ×2 (08:02→20:18)
[2021-11-24] MEDS: metFORMIN 500 MG TABLET PO SCH ×2 (08:02→17:22)
[2021-11-24] MEDS: QUEtiapine 25 MG TABLET. PO SCH ×2 (08:02→20:18)
[2021-11-24 15:44] VITALS: BP 142/80
[2021-11-24] MEDS: MIRTAZAPINE 15 MG TABLET PO SCH (20:18)
[2021-11-24] MEDS: MELATONIN 3 MG TABLET PO SCH (20:18)
[2021-11-24] MEDS: traZODone 50 MG TABLET. PO SCH (20:18)
[2021-11-24] MEDS: SERTRALINE 50 MG TABLET. PO SCH (20:18)
--- NOTE | 2021-11-24 21:52 | PDOC ---
Exam Note: [place] Note: Please also refer to the separate dictated note~for this date of service dictated separately.~Patient seen individually. Discussed the patient with Nursing staff reviewed the chart.~Reviewed interim history and current functioning. Reviewed vital signs,~Labs/ Radiology~and current medications noted below. Continue current treatment with the changes noted in the dictated addendum note Assessment: Vital Signs/I&O: Vital Signs Date Time Temp Pulse Resp B/P (MAP) Pulse Ox O2 Delivery O2 Flow Rate FiO2 11/24/21 15:44 98.2 81 20 142/80 (100) 96 11/22/21 06:14 Room Air I & O 11/23/21 11/23/21 11/24/21 15:00 23:00 07:00 Intake Total 510 ml 360 ml Balance 510 ml 360 ml Labs: Laboratory Tests Test 11/24/21 07:32 Glucose (Fingerstick) 80 mg/dL (70-99) Current Medications: Meds: Laboratory Tests Test 11/24/21 07:32 Glucose (Fingerstick) 80 mg/dL Current Medications Medications (Trade) Dose Ordered Sig/Richard Route PRN Reason Start Time Stop Time Status Last Admin Dose Admin Acetaminophen (Tylenol) 650 mg PRN Q6HRS PRN PO MILD PAIN / TEMP > 100.3'F 09/27/21 15:00 11/15/21 11:34 Mirtazapine (Remeron) 15 mg QHS PO 09/27/21 21:00 11/24/21 20:18 Olanzapine (ZyPREXA ZYDIS) 2.5 mg PRN Q2HRS PRN PO ANXIETY / AGITATION 09/27/21 15:00 11/13/21 19:44 Quetiapine Fumarate (SEROquel) 25 mg BID PO 09/27/21 21:00 11/24/21 20:18 Sertraline HCl (Zoloft) 50 mg HS PO 09/27/21 21:00 11/24/21 20:18 Trazodone HCl (Desyrel) 25 mg HS PO 09/27/21 21:00 10/05/21 18:14 DC 10/04/21 20:06 Melatonin (Melatonin) 3 mg HS PO 09/27/21 21:00 11/24/21 20:18 Metformin HCl (Glucophage) 500 mg BIDWMEALS PO 09/29/21 17:00 11/24/21 17:22 Nystatin (Nystop) 15 sulma STK-MED ONCE TP 10/04/21 09:36 10/04/21 09:36 DC Trazodone HCl (Desyrel) 50 mg HS PO 10/05/21 21:00 11/24/21 20:18 Trazodone HCl (Desyrel) 50 mg PRN QHS PRN PO INSOMNIA 10/05/21 18:15 11/18/21 22:19 Albuterol/ Ipratropium (Combivent Respimat 20-100 Mcg) 1 puff RTQID INH 10/18/21 20:00 11/24/21 20:18 Azithromycin (Zithromax) 500 mg 1X ONCE PO 10/19/21 16:45 10/19/21 16:46 DC 10/19/21 17:03 Azithromycin (Zithromax) 250 mg DAILY PO 10/20/21 09:00 10/24/21 22:00 DC 10/24/21 08:23 Lactobacillus Rhamnosus (Culturelle) 1 cap BID PO 10/21/21 09:00 11/24/21 20:18 Diclofenac Sodium (Voltaren) 1 sulma TID TP 10/24/21 14:00 11/07/21 12:35 DC 11/06/21 20:18 Prednisone (Prednisone) 60 mg 1X ONCE PO 10/26/21 11:00 10/26/21 11:01 DC 10/26/21 12:17 Diclofenac Sodium (Voltaren) 1 sulma PRN TID PRN TP MUSCLE PAIN 11/07/21 12:45 11/21/21 17:53 I have reviewed the current psychotropics carefully including drug interactions. Risk benefit ratio favors no change other than as noted in my dictated progress note. Diagnosis: Problems: (1) Impulse control disorder, unspecified (2) Anxiety disorder, unspecified (3) Dementia, vascular, with depression (4) Dementia, vascular, with delusions (5) Dementia in Alzheimer's disease with depression (6) Dementia in Alzheimer's disease with delusions (7) Dementia of the Alzheimer's type with early onset with behavioral di sturbance (8) Major neurocognitive disorder SOO BAIRES MD Nov 24, 2021 21:52
[2021-11-25 06:24] VITALS: BP 150/54
[2021-11-25] MEDS: IPRATROPIUM/ALBUTEROL 20/100mcg/INH INHALER. INH SCH ×4 (08:00→20:14)
[2021-11-25] MEDS: metFORMIN 500 MG TABLET PO SCH ×2 (08:00→17:05)
[2021-11-25] MEDS: LACTOBACILLUS RHAMNOSUS GG 1 CAPSULE. PO SCH ×2 (09:00→20:14)
[2021-11-25] MEDS: QUEtiapine 25 MG TABLET. PO SCH ×2 (09:00→20:14)
--- NOTE | 2021-11-25 15:56 | TX PLAN ---
Interdisciplinary Tx Plan Admission Information Sep 27, 2021 at 12:55 Legal Status (on Admission): Voluntary DPOA/Guardian Name: Lucille NieceOscar Bergman Contact Other Contact Name: Jayna Sheikh Contact Verified Code Status: Full Code Allergies: Coded Allergies: No Known Drug Allergies (Unverified , 07/16/21) Diagnoses Primary Diagnosis: 1. 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 Mood disorder, unspecified. Reasons for Admission: Aggressive, Delusions, Agitated, Sig. Change Sleep, Hallucinations, Combative Problem in Patient's Words: Per pt great niece/DPOAАнна who was raised mostly by pt, pt has had a noticable decline over the past year and particularlly over the past couple of months. Up until a year ago, pt was living in her independant living apartment and out of the [place], she moved to [place], [place] and bought a house that she paid winn for. She was then found to be living in very poor conditions without running water and no utilities and overall unable to care for herself. She had a few past hospitalizations but then release to herself and then would be found again living in unsafe conditions. At one point, pt drove herself to Анна's home, but refused to come in to stay, and would only stay in her car. Анна was finally successful at gaining DPOA during one of pt's hospitalizations and also in getting her license revoked. During the past year, family and staff during the different hospitalizations discovered pt was having hallucinations and delusions that seem to continue. Анна is concerned if pt is struggling with onset of dementia or if pt is truly experiencing psychosis and might clear in the future with medication management. Additional Admission Comments: Per intake record, pt refusing UA and cath, sexually inappropriate comments to staff, not sleeping for 30 hours, combative to staff, delusions,auditory hallucinations, verbally aggressive, screaming, cussing, disruptive. Problems Active Problems: Agitation Inactive Problems: Pt has shown improvements. She is less aggressive, delusional, and combative. She, also, is sleeping better. Pt Strengths/Limitations Ability for [place]: Poor Cognitive Functioning/Ability: Poor Communication Skills/Ability: Fair Financial Resources: Fair Insight/Judgement: Poor Intellectual Ability: Fair Physical Health: Poor Social Skills: Fair Stability in Family: Fair Stability in School/Work: Fair Verbal Skills: Fair Discharge Criteria Discharge Criteria: Adequate arrangements @DC, Verbal commit med comply, Improved behavior, Improved mood/thought Other Discharge Comments: None at this time. Preliminary Discharge Plan Preliminary DC Plan: Placement Needed Special Precautions Special Precautions: Agitation/Assault, Swallowing/Choking Fall Risk: High Other Precautions (specify): Pt has a history of falls. Initial D/C Plan Pt will need placement at time of discharge. Identified Discharge Needs: None at this time. Currently Utilized Resources Currently Utilized Resources/P: Great Niece/DPOA-Анна Jj has hired and traffic law attorney to assist with guardianship. Prior to Admission: PCP-Dr. Quang Raza Facility-[facility]; contact-CHANA Cruz *Note-Pt will not return to [facility] Referrals Community Resources: None known at this time. Identified Problems/Hx/Goals Objectives/Short-Term Goals Short Term Goals: Control abnormal behavior, Dec. Aggression, Dec. Anxiety/Panic, Dec. Hallucination/Delus, Dec. Outbursts, Medication Stabilization, Monitor Med Effects, Prevent Deterioration, Promote Coping Skill Short Term Goals in Patient's: Assist with proper diagnosis of psychosis vs dementia. Interventions/Frequency Staff Interventions/Frequency&: Psychiatry to assess pt three times per week for medication management. Nursing to assess behaviors, monitor medications, and complete 15 minute checks daily. Social work to see pt at least two times weekly to aid in return to placement. Activities to encourage pt to participate in group activities daily. 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 Education: According to DPOA, pt received a high school diploma and she had some technical college. Community Follow-up PCP Community Provider/Family Inpu: Pt great nigregorio/Анна LANG, provided pt history for the development of the treatment plan. Анна is available for further information should it be needed. Treatment Plan Explained Patient/Cornice Upholsterer had this treatment plan explained to him/her as indicated by the signature below and has been given the opportunity to ask questions and make suggestions: Date: Patient/Cornice Upholsterer Signature: Status Update Update Pt has been eating 89% of her meals and averaging 7.25 hours of sleep. She takes naps often and will sometimes call out in her sleep for help. Pt often does not remember what she is needing help with as it appears that she could be having ni ghtmares. She is mostly in pleasant spirits and enjoys joking around with staff and other patients. She currently has a roommate and gets along well with her. Pt continues to be compliant with her medications and accepts help during her cares. She attended three groups over the past week where she enjoyed socializing with others. SW is waiting on follow up from new APS report so that guardianship and ultimately placement can be pursued. LINDA BLACKWELL Nov 25, 2021 15:56
[2021-11-25 16:21] VITALS: BP 128/62
[2021-11-25] MEDS: SERTRALINE 50 MG TABLET. PO SCH (20:14)
[2021-11-25] MEDS: MIRTAZAPINE 15 MG TABLET PO SCH (20:14)
[2021-11-25] MEDS: traZODone 50 MG TABLET. PO SCH (20:14)
[2021-11-25] MEDS: MELATONIN 3 MG TABLET PO SCH (20:14)
--- NOTE | 2021-11-25 21:52 | PDOC ---
Exam Note: Troy Note: Please also refer to the separate dictated note~for this date of service dictated separately.~Patient seen individually. Discussed the patient with Nursing staff reviewed the chart.~Reviewed interim history and current functioning. Reviewed vital signs,~Labs/ Radiology~and current medications noted below. Continue current treatment with the changes noted in the dictated addendum note Assessment: Vital Signs/I&O: Vital Signs Date Time Temp Pulse Resp B/P (MAP) Pulse Ox O2 Delivery O2 Flow Rate FiO2 11/25/21 16:21 97.6 70 18 128/62 (84) 97 Room Air I & O 11/24/21 11/24/21 11/25/21 15:00 23:00 07:00 Intake Total 360 ml 560 ml Balance 360 ml 560 ml Labs: Laboratory Tests Test 11/25/21 07:38 Glucose (Fingerstick) 94 mg/dL (70-99) Current Medications: Meds: Laboratory Tests Test 11/25/21 07:38 Glucose (Fingerstick) 94 mg/dL Current Medications Medications (Trade) Dose Ordered Sig/Richard Route PRN Reason Start Time Stop Time Status Last Admin Dose Admin Acetaminophen (Tylenol) 650 mg PRN Q6HRS PRN PO MILD PAIN / TEMP > 100.3'F 09/27/21 15:00 11/15/21 11:34 Mirtazapine (Remeron) 15 mg QHS PO 09/27/21 21:00 11/25/21 20:14 Olanzapine (ZyPREXA ZYDIS) 2.5 mg PRN Q2HRS PRN PO ANXIETY / AGITATION 09/27/21 15:00 11/13/21 19:44 Quetiapine Fumarate (SEROquel) 25 mg BID PO 09/27/21 21:00 11/25/21 20:14 Sertraline HCl (Zoloft) 50 mg HS PO 09/27/21 21:00 11/25/21 20:14 Trazodone HCl (Desyrel) 25 mg HS PO 09/27/21 21:00 10/05/21 18:14 DC 10/04/21 20:06 Melatonin (Melatonin) 3 mg HS PO 09/27/21 21:00 11/25/21 20:14 Metformin HCl (Glucophage) 500 mg BIDWMEALS PO 09/29/21 17:00 11/25/21 17:05 Nystatin (Nystop) 15 sulma STK-MED ONCE TP 10/04/21 09:36 10/04/21 09:36 DC Trazodone HCl (Desyrel) 50 mg HS PO 10/05/21 21:00 11/25/21 20:14 Trazodone HCl (Desyrel) 50 mg PRN QHS PRN PO INSOMNIA 10/05/21 18:15 11/18/21 22:19 Albuterol/ Ipratropium (Combivent Respimat 20-100 Mcg) 1 puff RTQID INH 10/18/21 20:00 11/25/21 20:14 Azithromycin (Zithromax) 500 mg 1X ONCE PO 10/19/21 16:45 10/19/21 16:46 DC 10/19/21 17:03 Azithromycin (Zithromax) 250 mg DAILY PO 10/20/21 09:00 10/24/21 22:00 DC 10/24/21 08:23 Lactobacillus Rhamnosus (Culturelle) 1 cap BID PO 10/21/21 09:00 11/25/21 20:14 Diclofenac Sodium (Voltaren) 1 sulma TID TP 10/24/21 14:00 11/07/21 12:35 DC 11/06/21 20:18 Prednisone (Prednisone) 60 mg 1X ONCE PO 10/26/21 11:00 10/26/21 11:01 DC 10/26/21 12:17 Diclofenac Sodium (Voltaren) 1 sulma PRN TID PRN TP MUSCLE PAIN 11/07/21 12:45 11/21/21 17:53 I have reviewed the current psychotropics carefully including drug interactions. Risk benefit ratio favors no change other than as noted in my dictated progress note. Diagnosis: Problems: (1) Impulse control disorder, unspecified (2) Anxiety disorder, unspecified (3) Dementia, vascular, with depression (4) Dementia, vascular, with delusions (5) Dementia in Alzheimer's disease with depression (6) Dementia in Alzheimer's disease with delusions (7) Dementia of the Alzheimer's type with early onset with behavioral disturbance (8) Major neurocognitive disorder SOO BAIRES MD Nov 25, 2021 21:52
[2021-11-26 05:56] VITALS: BP 154/77
[2021-11-26] MEDS: QUEtiapine 25 MG TABLET. PO SCH ×2 (08:15→20:13)
[2021-11-26] MEDS: LACTOBACILLUS RHAMNOSUS GG 1 CAPSULE. PO SCH ×2 (08:15→20:13)
[2021-11-26] MEDS: metFORMIN 500 MG TABLET PO SCH ×2 (08:15→17:15)
[2021-11-26] MEDS: IPRATROPIUM/ALBUTEROL 20/100mcg/INH INHALER. INH SCH ×4 (08:17→20:12)
--- NOTE | 2021-11-26 09:03 | PDOC ---
Exam Note: [place] Note: This note is a late entry for 11/23/2021 covers elements not covered in my initial note. Subjective: The patient was seen individually on 11/23/2021, discussed and reviewed the chart with Nahomi TANG. The patient slept 6-1/4 hours previous night. I met with her in her room. She has a sense of humor and a very pleasant smile even though she gets forgetful there are things she remembers that surprises others around her. Review of Systems: Ambulation impaired, in wheelchair. No CV, , pulmonary, eye system symptoms on review. She has pain in her shoulders and itching in her upper extremities. Mental Status Exam: The patient is oriented to herself and situation. Speech is coherent. Abstraction fair. Computation impaired. Language function intact. Mood and affect anxious. Laboratory Data: Reviewed. Impression: Major neurocognitive disorder Alzheimer, vascular, with delusions, depression, behavioral disturbance. Anxiety disorder unspecified. Impulse control disorder unspecified. Plan: No change from initial note. Reviewed drug interactions, risk-benefit ratio which favors no further change today but we will continue to assess this. Assessment: Vital Signs/I&O: Vital Signs Date Time Temp Pulse Resp B/P (MAP) Pulse Ox O2 Delivery O2 Flow Rate FiO2 11/26/21 05:56 98.5 79 20 154/77 (102) 93 11/25/21 16:21 Room Air I & O 11/25/21 11/25/21 11/26/21 15:00 23:00 07:00 Intake Total 720 ml 600 ml Balance 720 ml 600 ml Labs: Laboratory Tests Test 11/26/21 07:38 Glucose (Fingerstick) 103 mg/dL (70-99) H Current Medications: I have reviewed the current psychotropics carefully including drug interactions. Risk benefit ratio favors no change other than as noted in my dictated progress note. Diagnosis: Problems: (1) Impulse control disorder, unspecified (2) Anxiety disorder, unspecified (3) Dementia, vascular, with depression (4) Dementia, vascular, with delusions (5) Dementia in Alzheimer's disease with depression (6) Dementia in Alzheimer's disease with delusions (7) Dementia of the Alzheimer's type with early onset with behavioral disturbance (8) Major neurocognitive disorder SOO BAIRES MD Nov 26, 2021 09:03
--- NOTE | 2021-11-26 09:21 | PDOC ---
Exam Note: [place] Note: This note is a late entry for 11/24/2021 covers elements not covered in my initial note. Subjective: The patient was seen individually on 11/24/2021, discussed and reviewed the chart with Chelle TANG. The patient slept 8 hours previous night. I met with her in her room. She remains confused, disorganized. Review of Systems: Ambulation impaired, in wheelchair. No CV, , pulmonary, eye system symptoms on review. She is hard of hearing. Mental Status Exam: The patient is oriented to herself and situation. She is pleasant with a sense of humor and quite likable but confused. Speech is coherent. Abstraction fair. Computation impaired. Language function intact. Mood and affect anxious. Laboratory Data: Reviewed. Impression: Major neurocognitive disorder Alzheimer, vascular, with delusions, depression, behavioral disturbance. Anxiety disorder unspecified. Impulse control disorder unspecified. Plan: No change from initial note. Reviewed drug interactions, risk-benefit ratio which favors no further change today but we will continue to assess this. Social service staff is actively trying to find placement for her. Assessment: Vital Signs/I&O: Vital Signs Date Time Temp Pulse Resp B/P (MAP) Pulse Ox O2 Delivery O2 Flow Rate FiO2 11/26/21 05:56 98.5 79 20 154/77 (102) 93 11/25/21 16:21 Room Air I & O 11/25/21 11/25/21 11/26/21 15:00 23:00 07:00 Intake Total 720 ml 600 ml Balance 720 ml 600 ml Labs: Laboratory Tests Test 11/26/21 07:38 Glucose (Fingerstick) 103 mg/dL (70-99) H Current Medications: I have reviewed the current psychotropics carefully including drug interactions. Risk benefit ratio favors no change other than as noted in my dictated progress note. Diagnosis: Problems: (1) Impulse control disorder, unspecified (2) Anxiety disorder, unspecified (3) Dementia, vascular, with depression (4) Dementia, vascular, with delusions (5) Dementia in Alzheimer's disease with depression (6) Dementia in Alzheimer's disease with delusions (7) Dementia of the Alzheimer's type with early onset with behavioral disturbance (8) Major neurocognitive disorder SOO BAIRES MD Nov 26, 2021 09:21
[2021-11-26 15:43] VITALS: BP 120/71
[2021-11-26] MEDS: MIRTAZAPINE 15 MG TABLET PO SCH (20:12)
[2021-11-26] MEDS: traZODone 50 MG TABLET. PO SCH (20:12)
[2021-11-26] MEDS: MELATONIN 3 MG TABLET PO SCH (20:13)
[2021-11-26] MEDS: SERTRALINE 50 MG TABLET. PO SCH (20:13)
--- NOTE | 2021-11-26 21:48 | PDOC ---
Exam Note: [place] Note: Please also refer to the separate dictated note~for this date of service dictated separately.~Patient seen individually. Discussed the patient with Nursing staff reviewed the chart.~Reviewed interim history and current functioning. Reviewed vital signs,~Labs/ Radiology~and current medications noted below. Continue current treatment with the changes noted in the dictated addendum note Assessment: Vital Signs/I&O: Vital Signs Date Time Temp Pulse Resp B/P (MAP) Pulse Ox O2 Delivery O2 Flow Rate FiO2 11/26/21 15:43 98.1 70 18 120/71 (87) 98 Room Air I & O 11/25/21 11/25/21 11/26/21 15:00 23:00 07:00 Intake Total 720 ml 600 ml Balance 720 ml 600 ml Labs: Laboratory Tests Test 11/26/21 07:38 Glucose (Fingerstick) 103 mg/dL (70-99) H Current Medications: Meds: Laboratory Tests Test 11/26/21 07:38 Glucose (Fingerstick) 103 mg/dL Current Medications Medications (Trade) Dose Ordered Sig/Richard Route PRN Reason Start Time Stop Time Status Last Admin Dose Admin Acetaminophen (Tylenol) 650 mg PRN Q6HRS PRN PO MILD PAIN / TEMP > 100.3'F 09/27/21 15:00 11/15/21 11:34 Mirtazapine (Remeron) 15 mg QHS PO 09/27/21 21:00 11/26/21 20:12 Olanzapine (ZyPREXA ZYDIS) 2.5 mg PRN Q2HRS PRN PO ANXIETY / AGITATION 09/27/21 15:00 11/13/21 19:44 Quetiapine Fumarate (SEROquel) 25 mg BID PO 09/27/21 21:00 11/26/21 20:13 Sertraline HCl (Zoloft) 50 mg HS PO 09/27/21 21:00 11/26/21 20:13 Trazodone HCl (Desyrel) 25 mg HS PO 09/27/21 21:00 10/05/21 18:14 DC 10/04/21 20:06 Melatonin (Melatonin) 3 mg HS PO 09/27/21 21:00 11/26/21 20:13 Metformin HCl (Glucophage) 500 mg BIDWMEALS PO 09/29/21 17:00 11/26/21 17:15 Nystatin (Nystop) 15 sulma STK-MED ONCE TP 10/04/21 09:36 10/04/21 09:36 DC Trazodone HCl (Desyrel) 50 mg HS PO 10/05/21 21:00 11/26/21 20:12 Trazodone HCl (Desyrel) 50 mg PRN QHS PRN PO INSOMNIA 10/05/21 18:15 11/18/21 22:19 Albuterol/ Ipratropium (Combivent Respimat 20-100 Mcg) 1 puff RTQID INH 10/18/21 20:00 11/26/21 20:12 Azithromycin (Zithromax) 500 mg 1X ONCE PO 10/19/21 16:45 10/19/21 16:46 DC 10/19/21 17:03 Azithromycin (Zithromax) 250 mg DAILY PO 10/20/21 09:00 10/24/21 22:00 DC 10/24/21 08:23 Lactobacillus Rhamnosus (Culturelle) 1 cap BID PO 10/21/21 09:00 11/26/21 20:13 Diclofenac Sodium (Voltaren) 1 sulma TID TP 10/24/21 14:00 11/07/21 12:35 DC 11/06/21 20:18 Prednisone (Prednisone) 60 mg 1X ONCE PO 10/26/21 11:00 10/26/21 11:01 DC 10/26/21 12:17 Diclofenac Sodium (Voltaren) 1 sulma PRN TID PRN TP MUSCLE PAIN 11/07/21 12:45 11/21/21 17:53 I have reviewed the current psychotropics carefully including drug interactions. Risk benefit ratio favors no change other than as noted in my dictated progress note. Diagnosis: Problems: (1) Impulse control disorder, unspecified (2) Anxiety disorder, unspecified (3) Dementia, vascular, with depression (4) Dementia, vascular, with delusions (5) Dementia in Alzheimer's disease with depression (6) Dementia in Alzheimer's disease with delusions (7) Dementia of the Alzheimer's type with early onset with behavioral disturbance (8) Major neurocognitive disorder SOO BAIRES MD Nov 26, 2021 21:48
[2021-11-27 06:24] VITALS: BP 126/51
[2021-11-27] MEDS: metFORMIN 500 MG TABLET PO SCH ×2 (08:28→16:54)
[2021-11-27] MEDS: IPRATROPIUM/ALBUTEROL 20/100mcg/INH INHALER. INH SCH ×4 (08:28→20:14)
[2021-11-27] MEDS: LACTOBACILLUS RHAMNOSUS GG 1 CAPSULE. PO SCH ×2 (08:29→20:14)
[2021-11-27] MEDS: QUEtiapine 25 MG TABLET. PO SCH ×2 (08:29→20:14)
--- NOTE | 2021-11-27 09:33 | PDOC ---
Exam Note: [place] Note: This note is a late entry for 11/25/2021 covers elements not covered in my initial note. Subjective: The patient was reviewed at treatment team meeting individually in the morning on 11/25/2021 with Katherine Moreno, Eliza Muniz, and Stephani Curry (social secretary), Martina, activity therapy, and Nikia TANG, discussed and reviewed the chart. Discussed the patients diagnoses, progress, current behaviors, psychotropic medications. The patient slept 6-1/4 hours previous night. Patient continues to at times yell out, help me, help me but her crying spells are better. She attended 3 groups in the past week, takes her medications whole, social and pleasant. I met with her in the dayroom. Review of Systems: Ambulation impaired, in wheelchair. No CV, , pulmonary, eye system symptoms on review. She is hard of hearing. She complains of pain in her shoulder, difficulty raising her arm as she does have arthritis. Mental Status Exam: The patient is oriented to herself and situation. Speech is coherent. Abstraction fair. Computation impaired. Language function intact. Mood and affect anxious. Laboratory Data: Reviewed. Impression: Major neurocognitive disorder Alzheimer, vascular, with delusions, depression, behavioral disturbance. Anxiety disorder unspecified. Impulse control disorder unspecified. Plan: No change from initial note. Reviewed drug interactions, risk-benefit ratio which favors no further change today but we will continue to assess this. Assessment: Vital Signs/I&O: Vital Signs Date Time Temp Pulse Resp B/P (MAP) Pulse Ox O2 Delivery O2 Flow Rate FiO2 11/27/21 06:24 97.7 72 18 126/51 (76) 94 11/26/21 15:43 Room Air I & O 11/26/21 11/26/21 11/27/21 14:59 22:59 06:59 Intake Total 1060 ml 480 ml Balance 1060 ml 480 ml Labs: Laboratory Tests Test 11/27/21 07:52 Glucose (Fingerstick) 97 mg/dL (70-99) Current Medications: I have reviewed the current psychotropics carefully including drug interactions. Risk benefit ratio favors no change other than as noted in my dictated progress note. Diagnosis: Problems: (1) Impulse control disorder, unspecified (2) Anxiety disorder, unspecified (3) Dementia, vascular, with depression (4) Dementia, vascular, with delusions (5) Dementia in Alzheimer's disease with depression (6) Dementia in Alzheimer's disease with delusions (7) Dementia of the Alzheimer's type with early onset with behavioral disturban ce (8) Major neurocognitive disorder SOO BAIRES MD Nov 27, 2021 09:33
--- NOTE | 2021-11-27 09:52 | PDOC ---
Exam Note: [place] Note: This note is a late entry for 11/26/2021 covers elements not covered in my initial note. Subjective: The patient was seen individually on 11/26/2021, discussed and reviewed the chart with Nikia TANG. The patient slept 6-3/4 hours previous night. I met with the patient in her room. Overall she is doing about the same. She spends time in the dayroom, watching TV but oblivious of what she was watching as I questioned her. Review of Systems: Ambulation impaired, in wheelchair. No CV, , pulmonary, eye, ENT system symptoms on review. She complains of shoulder and arm pain. Mental Status Exam: The patient is oriented to herself and situation. She is pleasant, verbal, interactive, expressed sadness that her roommate had left. I was surprised she remembered this. Speech is coherent. Abstraction fair. Computation impaired. Language function intact. Mood and affect anxious. Laboratory Data: Reviewed. Impression: Major neurocognitive disorder Alzheimer, vascular, with delusions, depression, behavioral disturbance. Anxiety disorder unspecified. Impulse c ontrol disorder unspecified. Plan: No change from initial note. Reviewed drug interactions, risk-benefit ratio which favors no further change today but we will continue to assess this. Assessment: Vital Signs/I&O: Vital Signs Date Time Temp Pulse Resp B/P (MAP) Pulse Ox O2 Delivery O2 Flow Rate FiO2 11/27/21 06:24 97.7 72 18 126/51 (76) 94 11/26/21 15:43 Room Air I & O 11/26/21 11/26/21 11/27/21 15:00 23:00 07:00 Intake Total 1060 ml 480 ml Balance 1060 ml 480 ml Labs: Laboratory Tests Test 11/27/21 07:52 Glucose (Fingerstick) 97 mg/dL (70-99) Current Medications: I have reviewed the current psychotropics carefully including drug interactions. Risk benefit ratio favors no change other than as noted in my dictated progress note. Diagnosis: Problems: (1) Impulse control disorder, unspecified (2) Anxiety disorder, unspecified (3) Dementia, vascular, with depression (4) Dementia, vascular, with delusions (5) Dementia in Alzheimer's disease with depression (6) Dementia in Alzheimer's disease with delusions (7) Dementia of the Alzheimer's type with early onset with behavioral disturbance (8) Major neurocognitive disorder SOO BAIRES MD Nov 27, 2021 09:52
[2021-11-27 15:22] VITALS: BP 113/77
[2021-11-27] MEDS: MELATONIN 3 MG TABLET PO SCH (20:14)
[2021-11-27] MEDS: SERTRALINE 50 MG TABLET. PO SCH (20:14)
[2021-11-27] MEDS: traZODone 50 MG TABLET. PO SCH (20:14)
[2021-11-27] MEDS: MIRTAZAPINE 15 MG TABLET PO SCH (20:14)
[2021-11-27] MEDS: traZODone 50 MG TABLET. PO PRN (20:15)
--- NOTE | 2021-11-27 21:59 | PDOC ---
Exam Note: [place] Note: Please also refer to the separate dictated note~for this date of service dictated separately.~Patient seen individually. Discussed the patient with Nursing staff reviewed the chart.~Reviewed interim history and current functioning. Reviewed vital signs,~Labs/ Radiology~and current medications noted below. Continue current treatment with the changes noted in the dictated addendum note Assessment: Vital Signs/I&O: Vital Signs Date Time Temp Pulse Resp B/P (MAP) Pulse Ox O2 Delivery O2 Flow Rate FiO2 11/27/21 15:22 97.2 89 18 113/77 (89) 100 11/26/21 15:43 Room Air I & O 11/26/21 11/26/21 11/27/21 15:00 23:00 07:00 Intake Total 1060 ml 480 ml Balance 1060 ml 480 ml Labs: Laboratory Tests Test 11/27/21 07:52 Glucose (Fingerstick) 97 mg/dL (70-99) Current Medications: Meds: Laboratory Tests Test 11/27/21 07:52 Glucose (Fingerstick) 97 mg/dL Current Medications Medications (Trade) Dose Ordered Sig/Richard Route PRN Reason Start Time Stop Time Status Last Admin Dose Admin Acetaminophen (Tylenol) 650 mg PRN Q6HRS PRN PO MILD PAIN / TEMP > 100.3'F 09/27/21 15:00 11/15/21 11:34 Mirtazapine (Remeron) 15 mg QHS PO 09/27/21 21:00 11/27/21 20:14 Olanzapine (ZyPREXA ZYDIS) 2.5 mg PRN Q2HRS PRN PO ANXIETY / AGITATION 09/27/21 15:00 11/27/21 20:14 Quetiapine Fumarate (SEROquel) 25 mg BID PO 09/27/21 21:00 11/27/21 20:14 Sertraline HCl (Zoloft) 50 mg HS PO 09/27/21 21:00 11/27/21 20:14 Trazodone HCl (Desyrel) 25 mg HS PO 09/27/21 21:00 10/05/21 18:14 DC 10/04/21 20:06 Melatonin (Melatonin) 3 mg HS PO 09/27/21 21:00 11/27/21 20:14 Metformin HCl (Glucophage) 500 mg BIDWMEALS PO 09/29/21 17:00 11/27/21 16:54 Nystatin (Nystop) 15 sulma STK-MED ONCE TP 10/04/21 09:36 10/04/21 09:36 DC Trazodone HCl (Desyrel) 50 mg HS PO 10/05/21 21:00 11/27/21 20:14 Trazodone HCl (Desyrel) 50 mg PRN QHS PRN PO INSOMNIA 10/05/21 18:15 11/27/21 20:15 Albuterol/ Ipratropium (Combivent Respimat 20-100 Mcg) 1 puff RTQID INH 10/18/21 20:00 11/27/21 20:14 Azithromycin (Zithromax) 500 mg 1X ONCE PO 10/19/21 16:45 10/19/21 16:46 DC 10/19/21 17:03 Azithromycin (Zithromax) 250 mg DAILY PO 10/20/21 09:00 10/24/21 22:00 DC 10/24/21 08:23 Lactobacillus Rhamnosus (Culturelle) 1 cap BID PO 10/21/21 09:00 11/27/21 20:14 Diclofenac Sodium (Voltaren) 1 sulma TID TP 10/24/21 14:00 11/07/21 12:35 DC 11/06/21 20:18 Prednisone (Prednisone) 60 mg 1X ONCE PO 10/26/21 11:00 10/26/21 11:01 DC 10/26/21 12:17 Diclofenac Sodium (Voltaren) 1 sulma PRN TID PRN TP MUSCLE PAIN 11/07/21 12:45 11/21/21 17:53 I have reviewed the current psychotropics carefully including drug interactions. Risk benefit ratio favors no change other than as noted in my dictated progress note. Diagnosis: Problems: (1) Impulse control disorder, unspecified (2) Anxiety disorder, unspecified (3) Dementia, vascular, with depression (4) Dementia, vascular, with delusions (5) Dementia in Alzheimer's disease with depression (6) Dementia in Alzheimer's disease with delusions (7) Dementia of the Alzheimer's type with early onset with behavioral disturbance (8) Major neurocognitive disorder SOO BAIRES MD Nov 27, 2021 21:59
[2021-11-28 06:22] VITALS: BP 111/60
[2021-11-28] MEDS: QUEtiapine 25 MG TABLET. PO SCH ×2 (08:16→20:29)
[2021-11-28] MEDS: metFORMIN 500 MG TABLET PO SCH ×2 (08:17→17:14)
[2021-11-28] MEDS: LACTOBACILLUS RHAMNOSUS GG 1 CAPSULE. PO SCH ×2 (08:17→20:28)
[2021-11-28] MEDS: ACETAMINOPHEN 325 MG TABLET PO PRN (08:17)
[2021-11-28] MEDS: IPRATROPIUM/ALBUTEROL 20/100mcg/INH INHALER. INH SCH ×4 (08:18→20:29)
[2021-11-28 16:00] VITALS: BP 131/70
[2021-11-28] MEDS: MELATONIN 3 MG TABLET PO SCH (20:28)
[2021-11-28] MEDS: SERTRALINE 50 MG TABLET. PO SCH (20:29)
[2021-11-28] MEDS: traZODone 50 MG TABLET. PO SCH (20:29)
[2021-11-28] MEDS: MIRTAZAPINE 15 MG TABLET PO SCH (20:29)
[2021-11-28] MEDS: traZODone 50 MG TABLET. PO PRN (20:30)
--- NOTE | 2021-11-28 22:03 | PDOC ---
Exam Note: [place] Note: Please also refer to the separate dictated note~for this date of service dictated separately.~Patient seen individually. Discussed the patient with Nursing staff reviewed the chart.~Reviewed interim history and current functioning. Reviewed vital signs,~Labs/ Radiology~and current medications noted below. Continue current treatment with the changes noted in the dictated addendum note Assessment: Vital Signs/I&O: Vital Signs Date Time Temp Pulse Resp B/P (MAP) Pulse Ox O2 Delivery O2 Flow Rate FiO2 11/28/21 16:00 97.2 78 20 131/70 (90) 97 11/26/21 15:43 Room Air I & O 11/27/21 11/27/21 11/28/21 15:00 23:00 07:00 Intake Total 720 ml 600 ml Balance 720 ml 600 ml Labs: Laboratory Tests Test 11/28/21 07:51 Glucose (Fingerstick) 101 mg/dL (70-99) H Current Medications: Meds: Laboratory Tests Test 11/28/21 07:51 Glucose (Fingerstick) 101 mg/dL Current Medications Medications (Trade) Dose Ordered Sig/Richard Route PRN Reason Start Time Stop Time Status Last Admin Dose Admin Acetaminophen (Tylenol) 650 mg PRN Q6HRS PRN PO MILD PAIN / TEMP > 100.3'F 09/27/21 15:00 11/28/21 08:17 Mirtazapine (Remeron) 15 mg QHS PO 09/27/21 21:00 11/28/21 20:29 Olanzapine (ZyPREXA ZYDIS) 2.5 mg PRN Q2HRS PRN PO ANXIETY / AGITATION 09/27/21 15:00 11/27/21 20:14 Quetiapine Fumarate (SEROquel) 25 mg BID PO 09/27/21 21:00 11/28/21 20:29 Sertraline HCl (Zoloft) 50 mg HS PO 09/27/21 21:00 11/28/21 20:29 Trazodone HCl (Desyrel) 25 mg HS PO 09/27/21 21:00 10/05/21 18:14 DC 10/04/21 20:06 Melatonin (Melatonin) 3 mg HS PO 09/27/21 21:00 11/28/21 20:28 Metformin HCl (Glucophage) 500 mg BIDWMEALS PO 09/29/21 17:00 11/28/21 17:14 Nystatin (Nystop) 15 sulma STK-MED ONCE TP 10/04/21 09:36 10/04/21 09:36 DC Trazodone HCl (Desyrel) 50 mg HS PO 10/05/21 21:00 11/28/21 20:29 Trazodone HCl (Desyrel) 50 mg PRN QHS PRN PO INSOMNIA 10/05/21 18:15 11/28/21 20:30 Albuterol/ Ipratropium (Combivent Respimat 20-100 Mcg) 1 puff RTQID INH 10/18/21 20:00 11/28/21 20:29 Azithromycin (Zithromax) 500 mg 1X ONCE PO 10/19/21 16:45 10/19/21 16:46 DC 10/19/21 17:03 Azithromycin (Zithromax) 250 mg DAILY PO 10/20/21 09:00 10/24/21 22:00 DC 10/24/21 08:23 Lactobacillus Rhamnosus (Culturelle) 1 cap BID PO 10/21/21 09:00 11/28/21 20:28 Diclofenac Sodium (Voltaren) 1 sulma TID TP 10/24/21 14:00 11/07/21 12:35 DC 11/06/21 20:18 Prednisone (Prednisone) 60 mg 1X ONCE PO 10/26/21 11:00 10/26/21 11:01 DC 10/26/21 12:17 Diclofenac Sodium (Voltaren) 1 sulma PRN TID PRN TP MUSCLE PAIN 11/07/21 12:45 11/21/21 17:53 I have reviewed the current psychotropics carefully including drug interactions. Risk benefit ratio favors no change other than as noted in my dictated progress note. Diagnosis: Problems: (1) Impulse control disorder, unspecified (2) Anxiety disorder, unspecified (3) Dementia, vascular, with depression (4) Dementia, vascular, with delusions (5) Dementia in Alzheimer's disease with depression (6) Dementia in Alzheimer's disease with delusions (7) Dementia of the Alzheimer's type with early onset with behavioral disturbance (8) Major neurocognitive disorder SOO BAIRES MD Nov 28, 2021 22:03
[2021-11-29 06:33] VITALS: BP 116/66
[2021-11-29] MEDS: QUEtiapine 25 MG TABLET. PO SCH ×2 (08:10→19:53)
[2021-11-29] MEDS: LACTOBACILLUS RHAMNOSUS GG 1 CAPSULE. PO SCH (08:10)
[2021-11-29] MEDS: IPRATROPIUM/ALBUTEROL 20/100mcg/INH INHALER. INH SCH ×4 (08:10→19:54)
[2021-11-29] MEDS: metFORMIN 500 MG TABLET PO SCH ×2 (08:10→16:52)
--- NOTE | 2021-11-29 10:43 | PDOC ---
Exam Note: [place] Note: This note is a late entry for 11/27/2021 covers elements not covered in my initial note. Subjective: The patient was seen individually on 11/27/2021, discussed and reviewed the chart with Kevin TANG. The patient slept 5-3/4 hours previous night. I met with the patient in the dayroom. She was little anxious but pleasant. Review of Systems: Ambulation impaired, in wheelchair. No CV, , pulmonary, eye, ENT system symptoms on review. She complains of shoulder and arm pain. Mental Status Exam: The patient is oriented to herself and situation. Speech is coherent. Abstraction fair. Computation impaired. Language function intact. Mood and affect anxious. Laboratory Data: Reviewed. Impression: Major neurocognitive disorder Alzheimer, vascular, with delusions, depression, behavioral disturbance. Anxiety disorder unspecified. Impulse control disorder unspecified. Plan: No change from initial note. Reviewed drug interactions, risk-benefit ratio which favors no further change today but we will continue to assess this. Assessment: Vital Signs/I&O: Vital Signs Date Time Temp Pulse Resp B/P (MAP) Pulse Ox O2 Delivery O2 Flow Rate FiO2 11/29/21 06:33 98.0 69 17 116/66 (83) 98 11/26/21 15:43 Room Air I & O 11/28/21 11/28/21 11/29/21 15:00 23:00 07:00 Intake Total 960 ml 820 ml Balance 960 ml 820 ml Labs: Laboratory Tests Test 11/29/21 07:32 Glucose (Fingerstick) 99 mg/dL (70-99) Current Medications: I have reviewed the current psychotropics carefully including drug interactions. Risk benefit ratio favors no change other than as noted in my dictated progress note. Diagnosis: Problems: (1) Impulse control disorder, unspecified (2) Anxiety disorder, unspecified (3) Dementia, vascular, with depression (4) Dementia, vascular, with delusions (5) Dementia in Alzheimer's disease with depression (6) Dementia in Alzheimer's disease with delusions (7) Dementia of the Alzheimer's type with early onset with behavioral disturbance (8) Major neurocognitive disorder SOO BAIRES MD Nov 29, 2021 10:37
[2021-11-29 15:30] VITALS: BP 133/50
[2021-11-29] MEDS: MELATONIN 3 MG TABLET PO SCH (19:53)
[2021-11-29] MEDS: traZODone 50 MG TABLET. PO PRN (19:54)
[2021-11-29] MEDS: MIRTAZAPINE 15 MG TABLET PO SCH (19:54)
[2021-11-29] MEDS: traZODone 50 MG TABLET. PO SCH (19:54)
[2021-11-29] MEDS: SERTRALINE 50 MG TABLET. PO SCH (19:54)
--- NOTE | 2021-11-29 21:39 | PDOC ---
Exam Note: [place] Note: This note is a late entry for 11/28/2021 covers elements not covered in my initial note. Subjective: The patient was seen individually on 11/28/2021, discussed and reviewed the chart with Kevin TANG. The patient slept 7 hours previous night. I met with the patient in her room. She is doing about the same. Review of Systems: Ambulation impaired, in wheelchair. No CV, , pulmonary, eye, ENT system symptoms on review. Mental Status Exam: The patient is oriented to herself and situation. She is pleasant, interactive. Speech is coherent. Abstraction fair. Computation impaired. Language function intact. Mood and affect anxious. Laboratory Data: Reviewed. Impression: Major neurocognitive disorder Alzheimer, vascular, with delusions, depression, behavioral disturbance. Anxiety disorder unspecified. Impulse control disorder unspecified. Plan: No change from initial note. Reviewed drug interactions, risk-benefit ratio. Assessment: Vital Signs/I&O: Vital Signs Date Time Temp Pulse Resp B/P (MAP) Pulse Ox O2 Delivery O2 Flow Rate FiO2 11/29/21 15:30 97.0 73 16 133/50 (77) 94 11/26/21 15:43 Room Air I & O 11/28/21 11/28/21 11/29/21 15:00 23:00 07:00 Intake Total 960 ml 820 ml Balance 960 ml 820 ml Labs: Laboratory Tests Test 11/29/21 07:32 Glucose (Fingerstick) 99 mg/dL (70-99) Current Medications: I have reviewed the current psychotropics carefully including drug interactions. Risk benefit ratio favors no change other than as noted in my dictated progress note. Diagnosis: Problems: (1) Impulse control disorder, unspecified (2) Anxiety disorder, unspecified (3) Dementia, vascular, with depression (4) Dementia, vascular, with delusions (5) Dementia in Alzheimer's disease with depression (6) Dementia in Alzheimer's disease with delusions (7) Dementia of the Alzheimer's type with early onset with behavioral disturbance (8) Major neurocognitive disorder SOO BAIRES MD Nov 29, 2021 21:39
--- NOTE | 2021-11-29 21:39 | PDOC ---
Exam Note: [place] Note: Please also refer to the separate dictated note~for this date of service dictated separately.~Patient seen individually. Discussed the patient with Nursing staff reviewed the chart.~Reviewed interim history and current functioning. Reviewed vital signs,~Labs/ Radiology~and current medications noted below. Continue current treatment with the changes noted in the dictated addendum note Assessment: Vital Signs/I&O: Vital Signs Date Time Temp Pulse Resp B/P (MAP) Pulse Ox O2 Delivery O2 Flow Rate FiO2 11/29/21 15:30 97.0 73 16 133/50 (77) 94 11/26/21 15:43 Room Air I & O 11/28/21 11/28/21 11/29/21 15:00 23:00 07:00 Intake Total 960 ml 820 ml Balance 960 ml 820 ml Labs: Laboratory Tests Test 11/29/21 07:32 Glucose (Fingerstick) 99 mg/dL (70-99) Current Medications: Meds: Laboratory Tests Test 11/29/21 07:32 Glucose (Fingerstick) 99 mg/dL Current Medications Medications (Trade) Dose Ordered Sig/Richard Route PRN Reason Start Time Stop Time Status Last Admin Dose Admin Acetaminophen (Tylenol) 650 mg PRN Q6HRS PRN PO MILD PAIN / TEMP > 100.3'F 09/27/21 15:00 11/28/21 08:17 Mirtazapine (Remeron) 15 mg QHS PO 09/27/21 21:00 11/29/21 19:54 Olanzapine (ZyPREXA ZYDIS) 2.5 mg PRN Q2HRS PRN PO ANXIETY / AGITATION 09/27/21 15:00 11/27/21 20:14 Quetiapine Fumarate (SEROquel) 25 mg BID PO 09/27/21 21:00 11/29/21 19:53 Sertraline HCl (Zoloft) 50 mg HS PO 09/27/21 21:00 11/29/21 19:54 Trazodone HCl (Desyrel) 25 mg HS PO 09/27/21 21:00 10/05/21 18:14 DC 10/04/21 20:06 Melatonin (Melatonin) 3 mg HS PO 09/27/21 21:00 11/29/21 19:53 Metformin HCl (Glucophage) 500 mg BIDWMEALS PO 09/29/21 17:00 11/29/21 16:52 Nystatin (Nystop) 15 sulma STK-MED ONCE TP 10/04/21 09:36 10/04/21 09:36 DC Trazodone HCl (Desyrel) 50 mg HS PO 10/05/21 21:00 11/29/21 19:54 Trazodone HCl (Desyrel) 50 mg PRN QHS PRN PO INSOMNIA 10/05/21 18:15 11/29/21 19:54 Albuterol/ Ipratropium (Combivent Respimat 20-100 Mcg) 1 puff RTQID INH 10/18/21 20:00 11/29/21 19:54 Azithromycin (Zithromax) 500 mg 1X ONCE PO 10/19/21 16:45 10/19/21 16:46 DC 10/19/21 17:03 Azithromycin (Zithromax) 250 mg DAILY PO 10/20/21 09:00 10/24/21 22:00 DC 10/24/21 08:23 Lactobacillus Rhamnosus (Culturelle) 1 cap BID PO 10/21/21 09:00 11/29/21 16:02 DC 11/29/21 08:10 Diclofenac Sodium (Voltaren) 1 sulma TID TP 10/24/21 14:00 11/07/21 12:35 DC 11/06/21 20:18 Prednisone (Prednisone) 60 mg 1X ONCE PO 10/26/21 11:00 10/26/21 11:01 DC 10/26/21 12:17 Diclofenac Sodium (Voltaren) 1 sulma PRN TID PRN TP MUSCLE PAIN 11/07/21 12:45 11/21/21 17:53 I have reviewed the current psychotropics carefully including drug interactions. Risk benefit ratio favors no change other than as noted in my dictated progress note. Diagnosis: Problems: (1) Impulse control disorder, unspecified (2) Anxiety disorder, unspecified (3) Dementia, vascular, with depression (4) Dementia, vascular, with delusions (5) Dementia in Alzheimer's disease with depression (6) Dementia in Alzheimer's disease with delusions (7) Dementia of the Alzheimer's type with early onset with behavioral disturbance (8) Major neurocognitive disorder SOO BAIRES MD Nov 29, 2021 21:39
[2021-11-30 05:41] VITALS: BP 123/65
[2021-11-30 07:16] LABS: BASO % 1 % (0-3); EOS # 0.3 x10^3/uL (0.0-0.7); EOS % 4 % (0-3); HEMATOCRIT 30.2 % (36.0-47.0); HEMOGLOBIN 9.6 g/dL (12.0-15.5); LYMPH # 2.8 x10^3/uL (1.0-4.8); LYMPH % 43 % (24-48); MEAN CORPUSCULAR HEMOGLOBIN 27 pg (25-35); MEAN CORPUSCULAR HGB CONC 32 g/dL (31-37); MEAN CORPUSCULAR VOLUME 84 fL (79-100); MONO # 0.4 x10^3/uL (0.0-1.1); MONO % 6 % (0-9); NEUT % 46 % (31-73); PLATELET COUNT 195 x10^3/uL (140-400); RED BLOOD COUNT 3.59 x10^6/uL (3.50-5.40); RED CELL DISTRIBUTION WIDTH 16.2 % (11.5-14.5); WHITE BLOOD COUNT 6.6 x10^3/uL (4.0-11.0)
[2021-11-30 07:35] LABS: ALBUMIN 2.6 g/dL (3.4-5.0); ALBUMIN/GLOBULIN RATIO 0.8 (1.0-1.7); CALCIUM 8.5 mg/dL (8.5-10.1); CREATININE 0.9 mg/dL (0.6-1.0); GFR 59.7; POTASSIUM 4.8 mmol/L (3.5-5.1); TOTAL BILIRUBIN 0.2 mg/dL (0.2-1.0)
[2021-11-30] MEDS: IPRATROPIUM/ALBUTEROL 20/100mcg/INH INHALER. INH SCH ×4 (08:00→20:00)
[2021-11-30] MEDS: metFORMIN 500 MG TABLET PO SCH ×2 (08:16→17:15)
[2021-11-30] MEDS: QUEtiapine 25 MG TABLET. PO SCH ×2 (08:16→20:00)
[2021-11-30 15:33] VITALS: BP 110/60
[2021-11-30] MEDS: MIRTAZAPINE 15 MG TABLET PO SCH (19:59)
[2021-11-30] MEDS: MELATONIN 3 MG TABLET PO SCH (19:59)
[2021-11-30] MEDS: traZODone 50 MG TABLET. PO SCH (20:00)
[2021-11-30] MEDS: traZODone 50 MG TABLET. PO PRN (20:00)
[2021-11-30] MEDS: SERTRALINE 50 MG TABLET. PO SCH (20:00)
[2021-12-01 05:56] VITALS: BP 127/73
--- NOTE | 2021-12-01 07:10 | PDOC ---
Exam Note: [place] Note: Late entry for 11/30/2021. Please also refer to the separate dictated note~for this date of service dictated separately.~Patient seen individually. Discussed the patient with Nursing staff reviewed the chart.~Reviewed interim history and current functioning. Reviewed vital signs,~Labs/ Radiology~and current medic ations noted below. Continue current treatment with the changes noted in the dictated addendum note Assessment: Vital Signs/I&O: Vital Signs Date Time Temp Pulse Resp B/P (MAP) Pulse Ox O2 Delivery O2 Flow Rate FiO2 12/01/21 05:56 62 18 127/73 (91) 95 Room Air 11/30/21 15:33 98.0 I & O 0 11/30/21 11/30/21 12/01/21 15:00 23:00 07:00 Intake Total 780 ml 480 ml Balance 780 ml 480 ml Labs: Laboratory Tests Test 11/30/21 07:28 Glucose (Fingerstick) 89 mg/dL (70-99) Current Medications: Meds: Laboratory Tests Test 11/30/21 07:28 Glucose (Fingerstick) 89 mg/dL Current Medications Medications (Trade) Dose Ordered Sig/Richard Route PRN Reason Start Time Stop Time Status Last Admin Dose Admin Acetaminophen (Tylenol) 650 mg PRN Q6HRS PRN PO MILD PAIN / TEMP > 100.3'F 09/27/21 15:00 11/28/21 08:17 Mirtazapine (Remeron) 15 mg QHS PO 09/27/21 21:00 11/30/21 19:59 Olanzapine (ZyPREXA ZYDIS) 2.5 mg PRN Q2HRS PRN PO ANXIETY / AGITATION 09/27/21 15:00 11/27/21 20:14 Quetiapine Fumarate (SEROquel) 25 mg BID PO 09/27/21 21:00 11/30/21 20:00 Sertraline HCl (Zoloft) 50 mg HS PO 09/27/21 21:00 11/30/21 20:00 Trazodone HCl (Desyrel) 25 mg HS PO 09/27/21 21:00 10/05/21 18:14 DC 10/04/21 20:06 Melatonin (Melatonin) 3 mg HS PO 09/27/21 21:00 11/30/21 19:59 Metformin HCl (Glucophage) 500 mg BIDWMEALS PO 09/29/21 17:00 11/30/21 17:15 Nystatin (Nystop) 15 sulma STK-MED ONCE TP 10/04/21 09:36 10/04/21 09:36 DC Trazodone HCl (Desyrel) 50 mg HS PO 10/05/21 21:00 11/30/21 20:00 Trazodone HCl (Desyrel) 50 mg PRN QHS PRN PO INSOMNIA 10/05/21 18:15 11/30/21 20:00 Albuterol/ Ipratropium (Combivent Respimat 20-100 Mcg) 1 puff RTQID INH 10/18/21 20:00 11/30/21 20:00 Azithromycin (Zithromax) 500 mg 1X ONCE PO 10/19/21 16:45 10/19/21 16:46 DC 10/19/21 17:03 Azithromycin (Zithromax) 250 mg DAILY PO 10/20/21 09:00 10/24/21 22:00 DC 10/24/21 08:23 Lactobacillus Rhamnosus (Culturelle) 1 cap BID PO 10/21/21 09:00 11/29/21 16:02 DC 11/29/21 08:10 Diclofenac Sodium (Voltaren) 1 sulma TID TP 10/24/21 14:00 11/07/21 12:35 DC 11/06/21 20:18 Prednisone (Prednisone) 60 mg 1X ONCE PO 10/26/21 11:00 10/26/21 11:01 DC 10/26/21 12:17 Diclofenac Sodium (Voltaren) 1 sulma PRN TID PRN TP MUSCLE PAIN 11/07/21 12:45 11/21/21 17:53 I have reviewed the current psychotropics carefully including drug interactions. Risk benefit ratio favors no change other than as noted in my dictated progress note. Diagnosis: Problems: (1) Impulse control disorder, unspecified (2) Anxiety disorder, unspecified (3) Dementia, vascular, with depression (4) Dementia, vascular, with delusions (5) Dementia in Alzheimer's disease with depression (6) Dementia in Alzheimer's disease with delusions (7) Dementia of the Alzheimer's type with early onset with behavioral disturbance (8) Major neurocognitive disorder SOO BAIRES MD Dec 01, 2021 07:10
[2021-12-01] MEDS: QUEtiapine 25 MG TABLET. PO SCH ×2 (07:59→19:34)
[2021-12-01] MEDS: metFORMIN 500 MG TABLET PO SCH ×2 (07:59→16:54)
[2021-12-01] MEDS: IPRATROPIUM/ALBUTEROL 20/100mcg/INH INHALER. INH SCH ×4 (08:00→19:34)
[2021-12-01 15:38] VITALS: BP 129/76
[2021-12-01] MEDS: MIRTAZAPINE 15 MG TABLET PO SCH (19:33)
[2021-12-01] MEDS: MELATONIN 3 MG TABLET PO SCH (19:33)
[2021-12-01] MEDS: SERTRALINE 50 MG TABLET. PO SCH (19:33)
[2021-12-01] MEDS: traZODone 50 MG TABLET. PO SCH (19:33)
--- NOTE | 2021-12-01 21:54 | PDOC ---
Exam Note: [place] Note: Please also refer to the separate dictated note~for this date of service dictated separately.~Patient seen individually. Discussed the patient with Nursing staff reviewed the chart.~Reviewed interim history and current functioning. Reviewed vital signs,~Labs/ Radiology~and current medications noted below. Continue current treatment with the changes noted in the dictated addendum note Assessment: Vital Signs/I&O: Vital Signs Date Time Temp Pulse Resp B/P (MAP) Pulse Ox O2 Delivery O2 Flow Rate FiO2 12/01/21 15:38 97.2 63 17 129/76 (93) 98 Room Air I & O 11/30/21 11/30/21 12/01/21 15:00 23:00 07:00 Intake Total 780 ml 480 ml Balance 780 ml 480 ml Labs: Laboratory Tests Test 12/01/21 07:56 Glucose (Fingerstick) 88 mg/dL (70-99) Current Medications: Meds: Laboratory Tests Test 12/01/21 07:56 Glucose (Fingerstick) 88 mg/dL Current Medications Medications (Trade) Dose Ordered Sig/Richard Route PRN Reason Start Time Stop Time Status Last Admin Dose Admin Acetaminophen (Tylenol) 650 mg PRN Q6HRS PRN PO MILD PAIN / TEMP > 100.3'F 09/27/21 15:00 11/28/21 08:17 Mirtazapine (Remeron) 15 mg QHS PO 09/27/21 21:00 12/01/21 19:33 Olanzapine (ZyPREXA ZYDIS) 2.5 mg PRN Q2HRS PRN PO ANXIETY / AGITATION 09/27/21 15:00 11/27/21 20:14 Quetiapine Fumarate (SEROquel) 25 mg BID PO 09/27/21 21:00 12/01/21 19:34 Sertraline HCl (Zoloft) 50 mg HS PO 09/27/21 21:00 12/01/21 19:33 Trazodone HCl (Desyrel) 25 mg HS PO 09/27/21 21:00 10/05/21 18:14 DC 10/04/21 20:06 Melatonin (Melatonin) 3 mg HS PO 09/27/21 21:00 12/01/21 19:33 Metformin HCl (Glucophage) 500 mg BIDWMEALS PO 09/29/21 17:00 12/01/21 16:54 Nystatin (Nystop) 15 sulma STK-MED ONCE TP 10/04/21 09:36 10/04/21 09:36 DC Trazodone HCl (Desyrel) 50 mg HS PO 10/05/21 21:00 12/01/21 19:33 Trazodone HCl (Desyrel) 50 mg PRN QHS PRN PO INSOMNIA 10/05/21 18:15 11/30/21 20:00 Albuterol/ Ipratropium (Combivent Respimat 20-100 Mcg) 1 puff RTQID INH 10/18/21 20:00 12/01/21 19:34 Azithromycin (Zithromax) 500 mg 1X ONCE PO 10/19/21 16:45 10/19/21 16:46 DC 10/19/21 17:03 Azithromycin (Zithromax) 250 mg DAILY PO 10/20/21 09:00 10/24/21 22:00 DC 10/24/21 08:23 Lactobacillus Rhamnosus (Culturelle) 1 cap BID PO 10/21/21 09:00 11/29/21 16:02 DC 11/29/21 08:10 Diclofenac Sodium (Voltaren) 1 sulma TID TP 10/24/21 14:00 11/07/21 12:35 DC 11/06/21 20:18 Prednisone (Prednisone) 60 mg 1X ONCE PO 10/26/21 11:00 10/26/21 11:01 DC 10/26/21 12:17 Diclofenac Sodium (Voltaren) 1 sulma PRN TID PRN TP MUSCLE PAIN 11/07/21 12:45 11/21/21 17:53 I have reviewed the current psychotropics carefully including drug interactions. Risk benefit ratio favors no change other than as noted in my dictated progress note. Diagnosis: Problems: (1) Impulse control disorder, unspecified (2) Anxiety disorder, unspecified (3) Dementia, vascular, with depression (4) Dementia, vascular, with delusions (5) Dementia in Alzheimer's disease with depression (6) Dementia in Alzheimer's disease with delusions (7) Dementia of the Alzheimer's type with early onset with behavioral disturbance (8) Major neurocognitive disorder SOO BAIRES MD Dec 01, 2021 21:54
[2021-12-02 06:02] VITALS: BP 134/51
[2021-12-02] MEDS: metFORMIN 500 MG TABLET PO SCH ×2 (06:57→17:00)
[2021-12-02] MEDS: QUEtiapine 25 MG TABLET. PO SCH ×2 (06:57→20:30)
[2021-12-02] MEDS: IPRATROPIUM/ALBUTEROL 20/100mcg/INH INHALER. INH SCH ×4 (06:57→20:00)
--- NOTE | 2021-12-02 07:22 | PDOC ---
Exam Note: [place] Note: This note is a late entry for 11/29/2021 covers elements not covered in my initial note. Subjective: The patient was seen individually on 11/29/2021, discussed and reviewed the chart with Kevin TANG. The patient slept 8-1/2 hours previous night. I met with the patient in her room. She is pleasant, verbal, int eractive, confused with short-term memory deficits. Review of Systems: Ambulation impaired, in wheelchair. No CV, , pulmonary, eye, ENT system symptoms on review. Mental Status Exam: The patient is oriented to herself and situation. I met with her in the dayroom. She had extra covers on her but was quite pleasant, verbal, interactive. Speech is coherent. Abstraction fair. Computation impaired. Language function intact. Mood and affect anxious. Laboratory Data: Reviewed. Impression: Major neurocognitive disorder Alzheimer, vascular, with delusions, depression, behavioral disturbance. Anxiety disorder unspecified. Impulse control disorder unspecified. Plan: No change from initial note. Reviewed drug interactions, risk-benefit ratio. Assessment: Vital Signs/I&O: Vital Signs Date Time Temp Pulse Resp B/P (MAP) Pulse Ox O2 Delivery O2 Flow Rate FiO2 12/02/21 06:02 98.1 74 20 134/51 (78) 95 12/01/21 15:38 Room Air I & O 12/01/21 12/01/21 12/02/21 15:00 23:00 07:00 Intake Total 780 ml 340 ml Balance 780 ml 340 ml Labs: Laboratory Tests Test 12/01/21 07:56 Glucose (Fingerstick) 88 mg/dL (70-99) Current Medications: I have reviewed the current psychotropics carefully including drug interactions. Risk benefit ratio favors no change other than as noted in my dictated progress note. Diagnosis: Problems: (1) Impulse control disorder, unspecified (2) Anxiety disorder, unspecified (3) Dementia, vascular, with depression (4) Dementia, vascular, with delusions (5) Dementia in Alzheimer's disease with depression (6) Dementia in Alzheimer's disease with delusions (7) Dementia of the Alzheimer's type with early onset with behavioral disturbance (8) Major neurocognitive disorder SOO BAIRES MD Dec 02, 2021 07:22
--- NOTE | 2021-12-02 07:41 | PDOC ---
Exam Note: [place] Note: This note is a late entry for 11/30/2021 covers elements not covered in my initial note. Subjective: The patient was seen individually on 11/30/2021, discussed and reviewed the chart with Lou TANG. The patient slept 8 hours previous night. I met with the patient in the dayroom. She is pleasant, cooperative, neatly tucked in a wheelchair with some warm covers. She is verbal, interactive but short-term memory is impaired. Review of Systems: Ambulation impaired, in wheelchair. No CV, , pulmonary, eye, ENT system symptoms on review. Mental Status Exam: The patient is oriented to herself and situation. She is pleasant. Speech is coherent. Abstraction fair. Computation impaired. Language function intact. Mood and affect anxious. Laboratory Data: Reviewed. Impression: Major neurocognitive disorder Alzheimer, vascular, with delusions, depression, behavioral disturbance. Anxiety disorder unspecified. Impulse control disorder unspecified. Plan: No change from initial note. Reviewed drug interactions, risk-benefit ratio. Assessment: Vital Signs/I&O: Vital Signs Date Time Temp Pulse Resp B/P (MAP) Pulse Ox O2 Delivery O2 Flow Rate FiO2 12/02/21 06:02 98.1 74 20 134/51 (78) 95 12/01/21 15:38 Room Air I & O 0 12/01/21 12/01/21 12/02/21 14:59 22:59 06:59 Intake Total 780 ml 340 ml Balance 780 ml 340 ml Labs: Laboratory Tests Test 12/01/21 07:56 12/02/21 07:37 Glucose (Fingerstick) 88 mg/dL (70-99) 119 mg/dL (70-99) H Current Medications: I have reviewed the current psychotropics carefully including drug interactions. Risk benefit ratio favors no change other than as noted in my dictated progress note. Diagnosis: Problems: (1) Impulse control disorder, unspecified (2) Anxiety disorder, unspecified (3) Dementia, vascular, with depression (4) Dementia, vascular, with delusions (5) Dementia in Alzheimer's disease with depression (6) Dementia in Alzheimer's disease with delusions (7) Dementia of the Alzheimer's type with early onset with behavioral disturbance (8) Major neurocognitive disorder SOO BAIRES MD Dec 02, 2021 07:41
--- NOTE | 2021-12-02 08:23 | PDOC ---
Exam Note: Troy Note: This note is a late entry for 12/01/2021 covers elements not covered in my initial note. Subjective: The patient was seen on telehealth rounds with [facility] nursing guadalupe on 12/01/2021, discussed and reviewed the chart with Anselmo TANG. Per nursing report the patient slept well last night. I met with her in her room. She has a sense of humor, quite animated. Review of Systems: Ambulation impaired, in wheelchair. Complains of some disc omfort in upper extremity but then seem to minimize this. No CV, , pulmonary, eye, ENT system symptoms on review. Mental Status Exam: The patient is oriented to herself and situation. Speech is coherent. Abstraction fair. Computation impaired. Language function intact. Mood and affect anxious. Laboratory Data: Reviewed. Impression: Major neurocognitive disorder Alzheimer, vascular, with delusions, depression, behavioral disturbance. Anxiety disorder unspecified. Impulse control disorder unspecified. Plan: No change from initial note. Reviewed drug interactions, risk-benefit ratio. Assessment: Vital Signs/I&O: Vital Signs Date Time Temp Pulse Resp B/P (MAP) Pulse Ox O2 Delivery O2 Flow Rate FiO2 12/02/21 06:02 98.1 74 20 134/51 (78) 95 12/01/21 15:38 Room Air I & O 12/01/21 12/01/21 12/02/21 15:00 23:00 07:00 Intake Total 780 ml 340 ml Balance 780 ml 340 ml Labs: Laboratory Tests Test 12/02/21 07:37 Glucose (Fingerstick) 119 mg/dL (70-99) H Current Medications: I have reviewed the current psychotropics carefully including drug interactions. Risk benefit ratio favors no change other than as noted in my dictated progress note. Diagnosis: Problems: (1) Impulse control disorder, unspecified (2) Anxiety disorder, unspecified (3) Dementia, vascular, with depression (4) Dementia, vascular, with delusions (5) Dementia in Alzheimer's disease with depression (6) Dementia in Alzheimer's disease with delusions (7) Dementia of the Alzheimer's type with early onset with behavioral disturbance (8) Major neurocognitive disorder SOO BAIRES MD Dec 02, 2021 08:23
--- NOTE | 2021-12-02 12:43 | TX PLAN ---
Interdisciplinary Tx Plan Admission Information Sep 27, 2021 at 12:55 Legal Status (on Admission): Voluntary DPOA/Guardian Name: Lucille NieceOscar Bergman Contact Other Contact Name: Jayna Sheikh Contact Verified Code Status: Full Code Allergies: Coded Allergies: No Known Drug Allergies (Unverified , 07/16/21) Diagnoses Primary Diagnosis: 1. 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 Mood disorder, unspecified. Reasons for Admission: Aggressive, Delusions, Agitated, Sig. Change Sleep, Hallucinations, Combative Problem in Patient's Words: Per pt great niece/DPOAАнна who was raised mostly by pt, pt has had a noticable decline over the past year and particularlly over the past couple of months. Up until a year ago, pt was living in her independant living apartment and out of the [place], she moved to [place], [place] and bought a house that she paid winn for. She was then found to be living in very poor conditions without running water and no utilities and overall unable to care for herself. She had a few past hospitalizations but then release to herself and then would be found again living in unsafe conditions. At one point, pt drove herself to Анна's home, but refused to come in to stay, and would only stay in her car. Анна was finally successful at gaining DPOA during one of pt's hospitalizations and also in getting her license revoked. During the past year, family and staff during the different hospitalizations discovered pt was having hallucinations and delusions that seem to continue. Анна is concerned if pt is struggling with onset of dementia or if pt is truly experiencing psychosis and might clear in the future with medication management. Additional Admission Comments: Per intake record, pt refusing UA and cath, sexually inappropriate comments to staff, not sleeping for 30 hours, combative to staff, delusions,auditory hallucinations, verbally aggressive, screaming, cussing, disruptive. Problems Active Problems: Agitation Inactive Problems: Pt has shown improvements. She is less aggressive, delusional, and combative. She, also, is sleeping better. Pt Strengths/Limitations Ability for [place]: Poor Cognitive Functioning/Ability: Poor Communication Skills/Ability: Fair Financial Resources: Fair Insight/Judgement: Poor Intellectual Ability: Fair Physical Health: Poor Social Skills: Fair Stability in Family: Fair Stability in School/Work: Fair Verbal Skills: Fair Discharge Criteria Discharge Criteria: Adequate arrangements @DC, Verbal commit med comply, Improved behavior, Improved mood/thought Other Discharge Comments: None at this time. Preliminary Discharge Plan Preliminary DC Plan: Placement Needed Special Precautions Special Precautions: Agitation/Assault, Swallowing/Choking Fall Risk: High Other Precautions (specify): Pt has a history of falls. Initial D/C Plan Pt will need placement at time of discharge. Identified Discharge Needs: None at this time. Currently Utilized Resources Currently Utilized Resources/P: Great Niece/DPOA-Анна Jj has hired and diesel mechanic to assist with guardianship. Prior to Admission: PCP-Dr. Quang Raza Facility-[facility]; contact-CHANA Cruz *Note-Pt will not return to [facility] Referrals Community Resources: None known at this time. Identified Problems/Hx/Goals Objectives/Short-Term Goals Short Term Goals: Control abnormal behavior, Dec. Aggression, Dec. Anxiety/Panic, Dec. Hallucination/Delus, Dec. Outbursts, Medication Stabilization, Monitor Med Effects, Prevent Deterioration, Promote Coping Skill Short Term Goals in Patient's: Assist with proper diagnosis of psychosis vs dementia. Interventions/Frequency Staff Interventions/Frequency&: Psychiatry to assess pt three times per week for medication management. Nursing to assess behaviors, monitor medications, and complete 15 minute checks daily. Social work to see pt at least two times weekly to aid in return to placement. Activities to encourage pt to participate in group activities daily. 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 Education: According to DPOA, pt received a high school diploma and she had some technical college. Community Follow-up PCP Community Provider/Family Inpu: Pt great nigregorio/Анна LANG, provided pt history for the development of the treatment plan. Анна is available for further information should it be needed. Treatment Plan Explained Patient/Director Of Business Applications had this treatment plan explained to him/her as indicated by the signature below and has been given the opportunity to ask questions and make suggestions: Date: Patient/Director Of Business Applications Signature: Status Update Update Pt continues to eat well averaging 89% of meal intakes and sleeping 7.25 hours. Pt continues to sleep often by napping especially following meals. Pt is A/O to self and has been pleasantly confused, but is able to make her needs known. She is absent of verbal/physical aggression. She does on occasion wake up in her sleep and seems to be startled. Giving her Trazodone before bedtime, seems to help her stay asleep. She had increased hemoglobin, but now seems to be trending down. This will continue to be monitored. Pt is medication compliant and accepts help during cares. Pt will randomly participate in groups and is social with others including staff and peers. SW will be planning to engage hospital diesel mechanic to assist with guardianship so placement can ultimately can be pursued as no information from [facility] has been received at this point. LINDA BLACKWELL Dec 02, 2021 12:43
[2021-12-02 15:35] VITALS: BP 133/72
[2021-12-02] MEDS: MELATONIN 3 MG TABLET PO SCH (20:30)
[2021-12-02] MEDS: MIRTAZAPINE 15 MG TABLET PO SCH (20:30)
[2021-12-02] MEDS: traZODone 50 MG TABLET. PO SCH (20:30)
[2021-12-02] MEDS: SERTRALINE 50 MG TABLET. PO SCH (20:30)
--- NOTE | 2021-12-02 21:59 | PDOC ---
Exam Note: [place] Note: Please also refer to the separate dictated note~for this date of service dictated separately.~Patient seen individually. Discussed the patient with Nursing staff reviewed the chart.~Reviewed interim history and current functioning. Reviewed vital signs,~Labs/ Radiology~and current medications noted below. Continue current treatment with the changes noted in the dictated addendum note Assessment: Vital Signs/I&O: Vital Signs Date Time Temp Pulse Resp B/P (MAP) Pulse Ox O2 Delivery O2 Flow Rate FiO2 12/02/21 15:35 97.6 73 18 133/72 (92) 98 12/01/21 15:38 Room Air I & O 12/01/21 12/01/21 12/02/21 14:59 22:59 06:59 Intake Total 780 ml 340 ml Balance 780 ml 340 ml Labs: Laboratory Tests Test 12/02/21 07:37 Glucose (Fingerstick) 119 mg/dL (70-99) H Current Medications: Meds: Laboratory Tests Test 12/02/21 07:37 Glucose (Fingerstick) 119 mg/dL Current Medications Medications (Trade) Dose Ordered Sig/Richard Route PRN Reason Start Time Stop Time Status Last Admin Dose Admin Acetaminophen (Tylenol) 650 mg PRN Q6HRS PRN PO MILD PAIN / TEMP > 100.3'F 09/27/21 15:00 11/28/21 08:17 Mirtazapine (Remeron) 15 mg QHS PO 09/27/21 21:00 12/02/21 20:30 Olanzapine (ZyPREXA ZYDIS) 2.5 mg PRN Q2HRS PRN PO ANXIETY / AGITATION 09/27/21 15:00 11/27/21 20:14 Quetiapine Fumarate (SEROquel) 25 mg BID PO 09/27/21 21:00 12/02/21 20:30 Sertraline HCl (Zoloft) 50 mg HS PO 09/27/21 21:00 12/02/21 20:30 Trazodone HCl (Desyrel) 25 mg HS PO 09/27/21 21:00 10/05/21 18:14 DC 10/04/21 20:06 Melatonin (Melatonin) 3 mg HS PO 09/27/21 21:00 12/02/21 20:30 Metformin HCl (Glucophage) 500 mg BIDWMEALS PO 09/29/21 17:00 12/02/21 17:00 Nystatin (Nystop) 15 sulma STK-MED ONCE TP 10/04/21 09:36 10/04/21 09:36 DC Trazodone HCl (Desyrel) 50 mg HS PO 10/05/21 21:00 12/02/21 20:30 Trazodone HCl (Desyrel) 50 mg PRN QHS PRN PO INSOMNIA 10/05/21 18:15 11/30/21 20:00 Albuterol/ Ipratropium (Combivent Respimat 20-100 Mcg) 1 puff RTQID INH 10/18/21 20:00 12/02/21 16:00 Azithromycin (Zithromax) 500 mg 1X ONCE PO 10/19/21 16:45 10/19/21 16:46 DC 10/19/21 17:03 Azithromycin (Zithromax) 250 mg DAILY PO 10/20/21 09:00 10/24/21 22:00 DC 10/24/21 08:23 Lactobacillus Rhamnosus (Culturelle) 1 cap BID PO 10/21/21 09:00 11/29/21 16:02 DC 11/29/21 08:10 Diclofenac Sodium (Voltaren) 1 sulma TID TP 10/24/21 14:00 11/07/21 12:35 DC 11/06/21 20:18 Prednisone (Prednisone) 60 mg 1X ONCE PO 10/26/21 11:00 10/26/21 11:01 DC 10/26/21 12:17 Diclofenac Sodium (Voltaren) 1 sulma PRN TID PRN TP MUSCLE PAIN 11/07/21 12:45 11/21/21 17:53 I have reviewed the current psychotropics carefully including drug interactions. Risk benefit ratio favors no change other than as noted in my dictated progress note. 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
[2021-12-02] MEDS: traZODone 50 MG TABLET. PO PRN (23:50)
[2021-12-03 06:28] VITALS: BP 132/82
[2021-12-03] MEDS: IPRATROPIUM/ALBUTEROL 20/100mcg/INH INHALER. INH SCH ×4 (08:00→20:00)
[2021-12-03] MEDS: QUEtiapine 25 MG TABLET. PO SCH ×2 (08:06→20:57)
[2021-12-03] MEDS: metFORMIN 500 MG TABLET PO SCH ×2 (08:06→17:13)
[2021-12-03 15:31] VITALS: BP 119/60
[2021-12-03] MEDS: SERTRALINE 50 MG TABLET. PO SCH (20:57)
[2021-12-03] MEDS: MIRTAZAPINE 15 MG TABLET PO SCH (20:57)
[2021-12-03] MEDS: MELATONIN 3 MG TABLET PO SCH (20:57)
[2021-12-03] MEDS: traZODone 50 MG TABLET. PO SCH (20:57)
--- NOTE | 2021-12-03 21:54 | PDOC ---
Exam Note: Troy Note: Please also refer to the separate dictated note~for this date of service dictated separately.~Patient seen individually. Discussed the patient with Nursing staff reviewed the chart.~Reviewed interim history and current functioning. Reviewed vital signs,~Labs/ Radiology~and current medications noted below. Continue current treatment with the changes noted in the dictated addendum note Assessment: Vital Signs/I&O: Vital Signs Date Time Temp Pulse Resp B/P (MAP) Pulse Ox O2 Delivery O2 Flow Rate FiO2 12/03/21 15:31 97.9 66 18 119/60 (79) 97 12/01/21 15:38 Room Air I & O 12/02/21 12/02/21 12/03/21 15:00 23:00 07:00 Intake Total 840 ml 360 ml Balance 840 ml 360 ml Labs: Laboratory Tests Test 12/03/21 07:55 Glucose (Fingerstick) 102 mg/dL (70-99) H Current Medications: Meds: Laboratory Tests Test 12/03/21 07:55 Glucose (Fingerstick) 102 mg/dL Current Medications Medications (Trade) Dose Ordered Sig/Richard Route PRN Reason Start Time Stop Time Status Last Admin Dose Admin Acetaminophen (Tylenol) 650 mg PRN Q6HRS PRN PO MILD PAIN / TEMP > 100.3'F 09/27/21 15:00 11/28/21 08:17 Mirtazapine (Remeron) 15 mg QHS PO 09/27/21 21:00 12/03/21 20:57 Olanzapine (ZyPREXA ZYDIS) 2.5 mg PRN Q2HRS PRN PO ANXIETY / AGITATION 09/27/21 15:00 11/27/21 20:14 Quetiapine Fumarate (SEROquel) 25 mg BID PO 09/27/21 21:00 12/03/21 20:57 Sertraline HCl (Zoloft) 50 mg HS PO 09/27/21 21:00 12/03/21 20:57 Trazodone HCl (Desyrel) 25 mg HS PO 09/27/21 21:00 10/05/21 18:14 DC 10/04/21 20:06 Melatonin (Melatonin) 3 mg HS PO 09/27/21 21:00 12/03/21 20:57 Metformin HCl (Glucophage) 500 mg BIDWMEALS PO 09/29/21 17:00 12/03/21 17:13 Nystatin (Nystop) 15 sulma STK-MED ONCE TP 10/04/21 09:36 10/04/21 09:36 DC Trazodone HCl (Desyrel) 50 mg HS PO 10/05/21 21:00 12/03/21 20:57 Trazodone HCl (Desyrel) 50 mg PRN QHS PRN PO INSOMNIA 10/05/21 18:15 12/02/21 23:50 Albuterol/ Ipratropium (Combivent Respimat 20-100 Mcg) 1 puff RTQID INH 10/18/21 20:00 12/03/21 20:00 Azithromycin (Zithromax) 500 mg 1X ONCE PO 10/19/21 16:45 10/19/21 16:46 DC 10/19/21 17:03 Azithromycin (Zithromax) 250 mg DAILY PO 10/20/21 09:00 10/24/21 22:00 DC 10/24/21 08:23 Lactobacillus Rhamnosus (Culturelle) 1 cap BID PO 10/21/21 09:00 11/29/21 16:02 DC 11/29/21 08:10 Diclofenac Sodium (Voltaren) 1 sulma TID TP 10/24/21 14:00 11/07/21 12:35 DC 11/06/21 20:18 Prednisone (Prednisone) 60 mg 1X ONCE PO 10/26/21 11:00 10/26/21 11:01 DC 10/26/21 12:17 Diclofenac Sodium (Voltaren) 1 sulma PRN TID PRN TP MUSCLE PAIN 11/07/21 12:45 11/21/21 17:53 I have reviewed the current psychotropics carefully including drug interactions. Risk benefit ratio favors no change other than as noted in my dictated progress note. Diagnosis: Problems: (1) Impulse control disorder, unspecified (2) Anxiety disorder, unspecified (3) Dementia, vascular, with depression (4) Dementia, vascular, with delusions (5) Dementia in Alzheimer's disease with depression (6) Dementia in Alzheimer's disease with delusions (7) Dementia of the Alzheimer's type with early onset with behavioral disturbance (8) Major neurocognitive disorder SOO BAIRES MD Dec 03, 2021 21:54
[2021-12-04] MEDS: DICLOFENAC SODIUM 1% TOPICAL GEL 100GM TUBE. TP PRN (05:56)
[2021-12-04] MEDS: ACETAMINOPHEN 325 MG TABLET PO PRN (05:56)
[2021-12-04 06:26] VITALS: BP 117/57
[2021-12-04 06:36] LABS: BASO % 1 % (0-3); EOS # 0.3 x10^3/uL (0.0-0.7); EOS % 4 % (0-3); HEMATOCRIT 30.8 % (36.0-47.0); HEMOGLOBIN 9.9 g/dL (12.0-15.5); LYMPH # 2.4 x10^3/uL (1.0-4.8); LYMPH % 34 % (24-48); MEAN CORPUSCULAR HEMOGLOBIN 27 pg (25-35); MEAN CORPUSCULAR HGB CONC 32 g/dL (31-37); MEAN CORPUSCULAR VOLUME 83 fL (79-100); MONO # 0.4 x10^3/uL (0.0-1.1); MONO % 6 % (0-9); NEUT % 56 % (31-73); PLATELET COUNT 201 x10^3/uL (140-400); RED BLOOD COUNT 3.72 x10^6/uL (3.50-5.40); RED CELL DISTRIBUTION WIDTH 15.9 % (11.5-14.5); WHITE BLOOD COUNT 7.1 x10^3/uL (4.0-11.0)
[2021-12-04 06:58] LABS: ALBUMIN 2.6 g/dL (3.4-5.0); ALBUMIN/GLOBULIN RATIO 0.7 (1.0-1.7); CALCIUM 8.6 mg/dL (8.5-10.1); CREATININE 0.8 mg/dL (0.6-1.0); GFR 68.3; POTASSIUM 4.2 mmol/L (3.5-5.1); TOTAL BILIRUBIN 0.2 mg/dL (0.2-1.0); TOTAL PROTEIN 6.2 g/dL (6.4-8.2)
[2021-12-04] MEDS: IPRATROPIUM/ALBUTEROL 20/100mcg/INH INHALER. INH SCH ×4 (08:13→20:52)
[2021-12-04] MEDS: metFORMIN 500 MG TABLET PO SCH ×2 (08:13→17:17)
[2021-12-04] MEDS: QUEtiapine 25 MG TABLET. PO SCH ×2 (08:13→20:51)
--- NOTE | 2021-12-04 09:28 | PDOC ---
Exam Note: Troy Note: This note is a late entry for 12/02/2021 covers elements not covered in my initial note. Subjective: The patient was reviewed at treatment team meeting individually in the morning on 12/02/2021 with Katherine Moreno and Stephani Curry (social services director), Martina, activity therapy, and Lou TANG, discussed and reviewed the chart. The patient slept 7-3/4 hours previous night. She has attended 3 groups in the past week. Reviewed her diagnoses, progress, current psychotropics, long term placement. She has not received any p.r.n. and yelling is not a problem. I met with her in her room. Review of Systems: Ambulation impaired, in wheelchair. No CV, , pulmonary, eye, ENT system symptoms on review. Mental Status Exam: The patient is oriented to herself, quite animated, has a sense of humor, little distractible but smiling. Speech is coherent. Abstraction fair. Computation impaired. Language function intact. Mood and affect anxious. No suicidal or homicidal ideation. Laboratory Data: Reviewed. Impression: Major neurocognitive disorder Alzheimer, vascular, with delusions, depression, behavioral disturbance. Anxiety disorder unspecified. Impulse control disorder unspecified. Plan: No change from initial note. Reviewed drug interactions, risk-benefit ratio. Assessment: Vital Signs/I&O: Vital Signs Date Time Temp Pulse Resp B/P (MAP) Pulse Ox O2 Delivery O2 Flow Rate FiO2 12/04/21 06:26 97.6 73 20 117/57 (77) 93 12/01/21 15:38 Room Air I & O 12/03/21 12/03/21 12/04/21 15:00 23:00 07:00 Intake Total 720 ml 600 ml Balance 720 ml 600 ml Labs: Laboratory Tests Test 12/04/21 06:28 12/04/21 07:18 White Blood Count 7.1 x10^3/uL (4.0-11.0) Red Blood Count 3.72 x10^6/uL (3.50-5.40) Hemoglobin 9.9 g/dL (12.0-15.5) L Hematocrit 30.8 % (36.0-47.0) L Mean Corpuscular Volume 83 fL (79-100) Mean Corpuscular Hemoglobin 27 pg (25-35) Mean Corpuscular Hemoglobin Concent 32 g/dL (31-37) Red Cell Distribution Width 15.9 % (11.5-14.5) H Platelet Count 201 x10^3/uL (140-400) Neutrophils (%) (Auto) 56 % (31-73) Lymphocytes (%) (Auto) 34 % (24-48) Monocytes (%) (Auto) 6 % (0-9) Eosinophils (%) (Auto) 4 % (0-3) H Basophils (%) (Auto) 1 % (0-3) Neutrophils # (Auto) 4.0 x10^3uL (1.8-7.7) Lymphocytes # (Auto) 2.4 x10^3/uL (1.0-4.8) Monocytes # (Auto) 0.4 x10^3/uL (0.0-1.1) Eosinophils # (Auto) 0.3 x10^3/uL (0.0-0.7) Basophils # (Auto) 0.0 x10^3/uL (0.0-0.2) Sodium Level 139 mmol/L (136-145) Potassium Level 4.2 mmol/L (3.5-5.1) Chloride Level 106 mmol/L (98-107) Carbon Dioxide Level 28 mmol/L (21-32) Anion Gap 5 (6-14) L Blood Urea Nitrogen 28 mg/dL (7-20) H Creatinine 0.8 mg/dL (0.6-1.0) Estimated GFR (Cockcroft-Gault) 68.3 BUN/Creatinine Ratio 35 (6-20) H Glucose Level 107 mg/dL (70-99) H Calcium Level 8.6 mg/dL (8.5-10.1) Total Bilirubin 0.2 mg/dL (0.2-1.0) Aspartate Amino Transferase (AST) 14 U/L (15-37) L Alanine Aminotransferase (ALT) 18 U/L (14-59) Alkaline Phosphatase 110 U/L (46-116) Total Protein 6.2 g/dL (6.4-8.2) L Albumin 2.6 g/dL (3.4-5.0) L Albumin/Globulin Ratio 0.7 (1.0-1.7) L Glucose (Fingerstick) 107 mg/dL (70-99) H Current Medications: I have reviewed the current psychotropics carefully including drug interactions. Risk benefit ratio favors no change other than as noted in my dictated progress note. Diagnosis: Problems: (1) Impulse control disorder, unspecified (2) Anxiety disorder, unspecified (3) Dementia, vascular, with depression (4) Dementia, vascular, with delusions (5) Dementia in Alzheimer's disease with depression (6) Dementia in Alzheimer's disease with delusions (7) Dementia of the Alzheimer's type with early onset with behavioral disturba nce (8) Major neurocognitive disorder SOO BAIRES MD Dec 04, 2021 09:28
--- NOTE | 2021-12-04 09:45 | PDOC ---
Exam Note: [place] Note: This note is a late entry for 12/03/2021 covers elements not covered in my initial note. Subjective: The patient was seen individually on 12/03/2021, discussed and reviewed the chart with Miriam TANG. The patient slept 6 hours previous night. I met with her in the dayroom. She is pleasant, cooperative. Review of Systems: Ambulation impaired, in wheelchair. No CV, , pulmonary, eye, ENT system symptoms on review. Mental Status Exam: The patient is oriented to herself. Speech is coherent. Abstraction fair. Computation impaired. Language function intact. Mood and affect anxious. No suicidal or homicidal ideation. Laboratory Data: Reviewed. Impression: Major neurocognitive disorder Alzheimer, vascular, with delusions, depression, behavioral disturbance. Anxiety disorder unspecified. Impulse control disorder unspecified. Plan: No change from initial note. Reviewed drug interactions, risk-benefit ratio. Assessment: Vital Signs/I&O: Vital Signs Date Time Temp Pulse Resp B/P (MAP) Pulse Ox O2 Delivery O2 Flow Rate FiO2 12/04/21 06:26 97.6 73 20 117/57 (77) 93 12/01/21 15:38 Room Air I & O 12/03/21 12/03/21 12/04/21 15:00 23:00 07:00 Intake Total 720 ml 600 ml Balance 720 ml 600 ml Labs: Laboratory Tests Test 12/04/21 06:28 12/04/21 07:18 White Blood Count 7.1 x10^3/uL (4.0-11.0) Red Blood Count 3.72 x10^6/uL (3.50-5.40) Hemoglobin 9.9 g/dL (12.0-15.5) L Hematocrit 30.8 % (36.0-47.0) L Mean Corpuscular Volume 83 fL (79-100) Mean Corpuscular Hemoglobin 27 pg (25-35) Mean Corpuscular Hemoglobin Concent 32 g/dL (31-37) Red Cell Distribution Width 15.9 % (11.5-14.5) H Platelet Count 201 x10^3/uL (140-400) Neutrophils (%) (Auto) 56 % (31-73) Lymphocytes (%) (Auto) 34 % (24-48) Monocytes (%) (Auto) 6 % (0-9) Eosinophils (%) (Auto) 4 % (0-3) H Basophils (%) (Auto) 1 % (0-3) Neutrophils # (Auto) 4.0 x10^3uL (1.8-7.7) Lymphocytes # (Auto) 2.4 x10^3/uL (1.0-4.8) Monocytes # (Auto) 0.4 x10^3/uL (0.0-1.1) Eosinophils # (Auto) 0.3 x10^3/uL (0.0-0.7) Basophils # (Auto) 0.0 x10^3/uL (0.0-0.2) Sodium Level 139 mmol/L (136-145) Potassium Level 4.2 mmol/L (3.5-5.1) Chloride Level 106 mmol/L (98-107) Carbon Dioxide Level 28 mmol/L (21-32) Anion Gap 5 (6-14) L Blood Urea Nitrogen 28 mg/dL (7-20) H Creatinine 0.8 mg/dL (0.6-1.0) Estimated GFR (Cockcroft-Gault) 68.3 BUN/Creatinine Ratio 35 (6-20) H Glucose Level 107 mg/dL (70-99) H Calcium Level 8.6 mg/dL (8.5-10.1) Total Bilirubin 0.2 mg/dL (0.2-1.0) Aspartate Amino Transferase (AST) 14 U/L (15-37) L Alanine Aminotransferase (ALT) 18 U/L (14-59) Alkaline Phosphatase 110 U/L (46-116) Total Protein 6.2 g/dL (6.4-8.2) L Albumin 2.6 g/dL (3.4-5.0) L Albumin/Globulin Ratio 0.7 (1.0-1.7) L Glucose (Fingerstick) 107 mg/dL (70-99) H Current Medications: I have reviewed the current psychotropics carefully including drug interactions. Risk benefit ratio favors no change other than as noted in my dictated progress note. Diagnosis: Problems: (1) Impulse control disorder, unspecified (2) Anxiety disorder, unspecified (3) Dementia, vascular, with depression (4) Dementia, vascular, with delusions (5) Dementia in Alzheimer's disease with depression (6) Dementia in Alzheimer's disease with delusions (7) Dementia of the Alzheimer's type with early onset with behavioral disturbance (8) Major neurocognitive disorder SOO BAIRES MD Dec 04, 2021 09:45
[2021-12-04 15:42] VITALS: BP 127/70
[2021-12-04] MEDS: MIRTAZAPINE 15 MG TABLET PO SCH (20:51)
[2021-12-04] MEDS: SERTRALINE 50 MG TABLET. PO SCH (20:51)
[2021-12-04] MEDS: MELATONIN 3 MG TABLET PO SCH (20:51)
[2021-12-04] MEDS: traZODone 50 MG TABLET. PO SCH (20:51)
--- NOTE | 2021-12-04 22:08 | PDOC ---
Exam Note: [place] Note: Please also refer to the separate dictated note~for this date of service dictated separately.~Patient seen individually. Discussed the patient with Nursing staff reviewed the chart.~Reviewed interim history and current functioning. Reviewed vital signs,~Labs/ Radiology~and current medications noted below. Continue current treatment with the changes noted in the dictated addendum note Assessment: Vital Signs/I&O: Vital Signs Date Time Temp Pulse Resp B/P (MAP) Pulse Ox O2 Delivery O2 Flow Rate FiO2 12/04/21 15:42 97.6 74 20 127/70 (89) 98 12/01/21 15:38 Room Air I & O 12/03/21 12/03/21 12/04/21 15:00 23:00 07:00 Intake Total 720 ml 600 ml Balance 720 ml 600 ml Labs: Laboratory Tests Test 12/04/21 06:28 12/04/21 07:18 White Blood Count 7.1 x10^3/uL (4.0-11.0) Red Blood Count 3.72 x10^6/uL (3.50-5.40) Hemoglobin 9.9 g/dL (12.0-15.5) L Hematocrit 30.8 % (36.0-47.0) L Mean Corpuscular Volume 83 fL (79-100) Mean Corpuscular Hemoglobin 27 pg (25-35) Mean Corpuscular Hemoglobin Concent 32 g/dL (31-37) Red Cell Distribution Width 15.9 % (11.5-14.5) H Platelet Count 201 x10^3/uL (140-400) Neutrophils (%) (Auto) 56 % (31-73) Lymphocytes (%) (Auto) 34 % (24-48) Monocytes (%) (Auto) 6 % (0-9) Eosinophils (%) (Auto) 4 % (0-3) H Basophils (%) (Auto) 1 % (0-3) Neutrophils # (Auto) 4.0 x10^3uL (1.8-7.7) Lymphocytes # (Auto) 2.4 x10^3/uL (1.0-4.8) Monocytes # (Auto) 0.4 x10^3/uL (0.0-1.1) Eosinophils # (Auto) 0.3 x10^3/uL (0.0-0.7) Basophils # (Auto) 0.0 x10^3/uL (0.0-0.2) Sodium Level 139 mmol/L (136-145) Potassium Level 4.2 mmol/L (3.5-5.1) Chloride Level 106 mmol/L (98-107) Carbon Dioxide Level 28 mmol/L (21-32) Anion Gap 5 (6-14) L Blood Urea Nitrogen 28 mg/dL (7-20) H Creatinine 0.8 mg/dL (0.6-1.0) Estimated GFR (Cockcroft-Gault) 68.3 BUN/Creatinine Ratio 35 (6-20) H Glucose Level 107 mg/dL (70-99) H Calcium Level 8.6 mg/dL (8.5-10.1) Total Bilirubin 0.2 mg/dL (0.2-1.0) Aspartate Amino Transferase (AST) 14 U/L (15-37) L Alanine Aminotransferase (ALT) 18 U/L (14-59) Alkaline Phosphatase 110 U/L (46-116) Total Protein 6.2 g/dL (6.4-8.2) L Albumin 2.6 g/dL (3.4-5.0) L Albumin/Globulin Ratio 0.7 (1.0-1.7) L Glucose (Fingerstick) 107 mg/dL (70-99) H Current Medications: Meds: Laboratory Tests Test 12/04/21 06:28 12/04/21 07:18 White Blood Count 7.1 x10^3/uL Red Blood Count 3.72 x10^6/uL Hemoglobin 9.9 g/dL Hematocrit 30.8 % Mean Corpuscular Volume 83 fL Mean Corpuscular Hemoglobin 27 pg Mean Corpuscular Hemoglobin Concent 32 g/dL Red Cell Distribution Width 15.9 % Platelet Count 201 x10^3/uL Neutrophils (%) (Auto) 56 % Lymphocytes (%) (Auto) 34 % Monocytes (%) (Auto) 6 % Eosinophils (%) (Auto) 4 % Basophils (%) (Auto) 1 % Neutrophils # (Auto) 4.0 x10^3uL Lymphocytes # (Auto) 2.4 x10^3/uL Monocytes # (Auto) 0.4 x10^3/uL Eosinophils # (Auto) 0.3 x10^3/uL Basophils # (Auto) 0.0 x10^3/uL Sodium Level 139 mmol/L Potassium Level 4.2 mmol/L Chloride Level 106 mmol/L Carbon Dioxide Level 28 mmol/L Anion Gap 5 Blood Urea Nitrogen 28 mg/dL Creatinine 0.8 mg/dL Estimated GFR (Cockcroft-Gault) 68.3 BUN/Creatinine Ratio 35 Glucose Level 107 mg/dL Calcium Level 8.6 mg/dL Total Bilirubin 0.2 mg/dL Aspartate Amino Transf (AST/SGOT) 14 U/L Alanine Aminotransferase (ALT/SGPT) 18 U/L Alkaline Phosphatase 110 U/L Total Protein 6.2 g/dL Albumin 2.6 g/dL Albumin/Globulin Ratio 0.7 Glucose (Fingerstick) 107 mg/dL Current Medications Medications (Trade) Dose Ordered Sig/Richard Route PRN Reason Start Time Stop Time Status Last Admin Dose Admin Acetaminophen (Tylenol) 650 mg PRN Q6HRS PRN PO MILD PAIN / TEMP > 100.3'F 09/27/21 15:00 12/04/21 05:56 Mirtazapine (Remeron) 15 mg QHS PO 09/27/21 21:00 12/04/21 20:51 Olanzapine (ZyPREXA ZYDIS) 2.5 mg PRN Q2HRS PRN PO ANXIETY / AGITATION 09/27/21 15:00 11/27/21 20:14 Quetiapine Fumarate (SEROquel) 25 mg BID PO 09/27/21 21:00 12/04/21 20:51 Sertraline HCl (Zoloft) 50 mg HS PO 09/27/21 21:00 12/04/21 20:51 Trazodone HCl (Desyrel) 25 mg HS PO 09/27/21 21:00 10/05/21 18:14 DC 10/04/21 20:06 Melatonin (Melatonin) 3 mg HS PO 09/27/21 21:00 12/04/21 20:51 Metformin HCl (Glucophage) 500 mg BIDWMEALS PO 09/29/21 17:00 12/04/21 17:17 Nystatin (Nystop) 15 sulma STK-MED ONCE TP 10/04/21 09:36 10/04/21 09:36 DC Trazodone HCl (Desyrel) 50 mg HS PO 10/05/21 21:00 3/30/22 20:51 Trazodone HCl (Desyrel) 50 mg PRN QHS PRN PO INSOMNIA 10/05/21 18:15 12/02/21 23:50 Albuterol/ Ipratropium (Combivent Respimat 20-100 Mcg) 1 puff RTQID INH 10/18/21 20:00 12/04/21 20:52 Azithromycin (Zithromax) 500 mg 1X ONCE PO 10/19/21 16:45 10/19/21 16:46 DC 10/19/21 17:03 Azithromycin (Zithromax) 250 mg DAILY PO 10/20/21 09:00 10/24/21 22:00 DC 10/24/21 08:23 Lactobacillus Rhamnosus (Culturelle) 1 cap BID PO 10/21/21 09:00 11/29/21 16:02 DC 11/29/21 08:10 Diclofenac Sodium (Voltaren) 1 sulma TID TP 10/24/21 14:00 11/07/21 12:35 DC 11/06/21 20:18 Prednisone (Prednisone) 60 mg 1X ONCE PO 10/26/21 11:00 10/26/21 11:01 DC 10/26/21 12:17 Diclofenac Sodium (Voltaren) 1 sulma PRN TID PRN TP MUSCLE PAIN 11/07/21 12:45 12/04/21 05:56 I have reviewed the current psychotropics carefully including drug interactions. Risk benefit ratio favors no change other than as noted in my dictated progress note. 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
[2021-12-05 06:18] VITALS: BP 109/51
[2021-12-05] MEDS: QUEtiapine 25 MG TABLET. PO SCH ×2 (08:34→20:01)
[2021-12-05] MEDS: IPRATROPIUM/ALBUTEROL 20/100mcg/INH INHALER. INH SCH ×4 (08:34→20:00)
[2021-12-05] MEDS: metFORMIN 500 MG TABLET PO SCH ×2 (08:35→17:25)
[2021-12-05 17:05] VITALS: BP 126/71
[2021-12-05] MEDS: MIRTAZAPINE 15 MG TABLET PO SCH (20:00)
[2021-12-05] MEDS: MELATONIN 3 MG TABLET PO SCH (20:01)
[2021-12-05] MEDS: traZODone 50 MG TABLET. PO SCH (20:01)
[2021-12-05] MEDS: SERTRALINE 50 MG TABLET. PO SCH (20:01)
[2021-12-05] MEDS: traZODone 50 MG TABLET. PO PRN (20:02)
--- NOTE | 2021-12-05 22:09 | PDOC ---
Exam Note: [place] Note: Please also refer to the separate dictated note~for this date of service dictated separately.~Patient seen individually. Discussed the patient with Nursing staff reviewed the chart.~Reviewed interim history and current functioning. Reviewed vital signs,~Labs/ Radiology~and current medications noted below. Continue current treatment with the changes noted in the dictated addendum note Assessment: Vital Signs/I&O: Vital Signs Date Time Temp Pulse Resp B/P (MAP) Pulse Ox O2 Delivery O2 Flow Rate FiO2 12/05/21 17:05 97.8 67 18 126/71 (89) 100 12/01/21 15:38 Room Air I & O 12/04/21 12/04/21 12/05/21 15:00 23:00 07:00 Intake Total 840 ml 600 ml Balance 840 ml 600 ml Labs: Laboratory Tests Test 12/05/21 07:55 12/05/21 19:29 Glucose (Fingerstick) 94 mg/dL (70-99) 161 mg/dL (70-99) H Current Medications: Meds: Laboratory Tests Test 12/05/21 07:55 12/05/21 19:29 Glucose (Fingerstick) 94 mg/dL 161 mg/dL Current Medications Medications (Trade) Dose Ordered Sig/Richard Route PRN Reason Start Time Stop Time Status Last Admin Dose Admin Acetaminophen (Tylenol) 650 mg PRN Q6HRS PRN PO MILD PAIN / TEMP > 100.3'F 09/27/21 15:00 12/04/21 05:56 Mirtazapine (Remeron) 15 mg QHS PO 09/27/21 21:00 12/05/21 20:00 Olanzapine (ZyPREXA ZYDIS) 2.5 mg PRN Q2HRS PRN PO ANXIETY / AGITATION 09/27/21 15:00 11/27/21 20:14 Quetiapine Fumarate (SEROquel) 25 mg BID PO 09/27/21 21:00 12/05/21 20:01 Sertraline HCl (Zoloft) 50 mg HS PO 09/27/21 21:00 12/05/21 20:01 Trazodone HCl (Desyrel) 25 mg HS PO 09/27/21 21:00 10/05/21 18:14 DC 10/04/21 20:06 Melatonin (Melatonin) 3 mg HS PO 09/27/21 21:00 12/05/21 20:01 Metformin HCl (Glucophage) 500 mg BIDWMEALS PO 09/29/21 17:00 12/05/21 17:25 Nystatin (Nystop) 15 sulma STK-MED ONCE TP 10/04/21 09:36 10/04/21 09:36 DC Trazodone HCl (Desyrel) 50 mg HS PO 10/05/21 21:00 12/05/21 20:01 Trazodone HCl (Desyrel) 50 mg PRN QHS PRN PO INSOMNIA 10/05/21 18:15 12/05/21 20:02 Albuterol/ Ipratropium (Combivent Respimat 20-100 Mcg) 1 puff RTQID INH 10/18/21 20:00 12/05/21 20:00 Azithromycin (Zithromax) 500 mg 1X ONCE PO 10/19/21 16:45 10/19/21 16:46 DC 10/19/21 17:03 Azithromycin (Zithromax) 250 mg DAILY PO 10/20/21 09:00 10/24/21 22:00 DC 10/24/21 08:23 Lactobacillus Rhamnosus (Culturelle) 1 cap BID PO 10/21/21 09:00 11/29/21 16:02 DC 11/29/21 08:10 Diclofenac Sodium (Voltaren) 1 sulma TID TP 10/24/21 14:00 11/07/21 12:35 DC 11/06/21 20:18 Prednisone (Prednisone) 60 mg 1X ONCE PO 10/26/21 11:00 10/26/21 11:01 DC 10/26/21 12:17 Diclofenac Sodium (Voltaren) 1 sulma PRN TID PRN TP MUSCLE PAIN 11/07/21 12:45 12/04/21 05:56 I have reviewed the current psychotropics carefully including drug interactions. Risk benefit ratio favors no change other than as noted in my dictated progress note. Diagnosis: Problems: (1) Impulse control disorder, unspecified (2) Anxiety disorder, unspecified (3) Dementia, vascular, with depression (4) Dementia, vascular, with delusions (5) Dementia in Alzheimer's disease with depression (6) Dementia in Alzheimer's disease with delusions (7) Dementia of the Alzheimer's type with early onset with behavioral disturbance (8) Major neurocognitive disorder SOO BAIRES MD Dec 05, 2021 22:08
[2021-12-06 06:19] VITALS: BP 113/64
[2021-12-06] MEDS: QUEtiapine 25 MG TABLET. PO SCH ×2 (08:52→20:11)
[2021-12-06] MEDS: metFORMIN 500 MG TABLET PO SCH ×2 (08:52→17:31)
[2021-12-06] MEDS: IPRATROPIUM/ALBUTEROL 20/100mcg/INH INHALER. INH SCH ×4 (08:52→20:11)
[2021-12-06 16:08] VITALS: BP 142/72
[2021-12-06] MEDS: SERTRALINE 50 MG TABLET. PO SCH (20:11)
[2021-12-06] MEDS: MELATONIN 3 MG TABLET PO SCH (20:12)
[2021-12-06] MEDS: traZODone 50 MG TABLET. PO SCH (20:12)
[2021-12-06] MEDS: MIRTAZAPINE 15 MG TABLET PO SCH (20:12)
--- NOTE | 2021-12-06 22:07 | PDOC ---
Exam Note: [place] Note: Please also refer to the separate dictated note~for this date of service dictated separately.~Patient seen individually. Discussed the patient with Nursing staff reviewed the chart.~Reviewed interim history and current functioning. Reviewed vital signs,~Labs/ Radiology~and current medications noted below. Continue current treatment with the changes noted in the dictated addendum note Assessment: Vital Signs/I&O: Vital Signs Date Time Temp Pulse Resp B/P (MAP) Pulse Ox O2 Delivery O2 Flow Rate FiO2 12/06/21 16:08 97.8 66 18 142/72 (95) 96 12/06/21 06:19 Room Air I & O 12/05/21 12/05/21 12/06/21 15:00 23:00 07:00 Intake Total 680 ml 360 ml Balance 680 ml 360 ml Labs: Laboratory Tests Test 12/06/21 07:36 Glucose (Fingerstick) 107 mg/dL (70-99) H Current Medications: Meds: Laboratory Tests Test 12/06/21 07:36 Glucose (Fingerstick) 107 mg/dL Current Medications Medications (Trade) Dose Ordered Sig/Richard Route PRN Reason Start Time Stop Time Status Last Admin Dose Admin Acetaminophen (Tylenol) 650 mg PRN Q6HRS PRN PO MILD PAIN / TEMP > 100.3'F 09/27/21 15:00 12/04/21 05:56 Mirtazapine (Remeron) 15 mg QHS PO 09/27/21 21:00 12/06/21 20:12 Olanzapine (ZyPREXA ZYDIS) 2.5 mg PRN Q2HRS PRN PO ANXIETY / AGITATION 09/27/21 15:00 11/27/21 20:14 Quetiapine Fumarate (SEROquel) 25 mg BID PO 09/27/21 21:00 12/06/21 20:11 Sertraline HCl (Zoloft) 50 mg HS PO 09/27/21 21:00 12/06/21 20:11 Trazodone HCl (Desyrel) 25 mg HS PO 09/27/21 21:00 10/05/21 18:14 DC 10/04/21 20:06 Melatonin (Melatonin) 3 mg HS PO 09/27/21 21:00 12/06/21 20:12 Metformin HCl (Glucophage) 500 mg BIDWMEALS PO 09/29/21 17:00 12/06/21 17:31 Nystatin (Nystop) 15 sulma STK-MED ONCE TP 10/04/21 09:36 10/04/21 09:36 DC Trazodone HCl (Desyrel) 50 mg HS PO 10/05/21 21:00 12/06/21 20:12 Trazodone HCl (Desyrel) 50 mg PRN QHS PRN PO INSOMNIA 10/05/21 18:15 12/05/21 20:02 Albuterol/ Ipratropium (Combivent Respimat 20-100 Mcg) 1 puff RTQID INH 10/18/21 20:00 12/06/21 20:11 Azithromycin (Zithromax) 500 mg 1X ONCE PO 10/19/21 16:45 10/19/21 16:46 DC 10/19/21 17:03 Azithromycin (Zithromax) 250 mg DAILY PO 10/20/21 09:00 10/24/21 22:00 DC 10/24/21 08:23 Lactobacillus Rhamnosus (Culturelle) 1 cap BID PO 10/21/21 09:00 11/29/21 16:02 DC 11/29/21 08:10 Diclofenac Sodium (Voltaren) 1 sulma TID TP 10/24/21 14:00 11/07/21 12:35 DC 11/06/21 20:18 Prednisone (Prednisone) 60 mg 1X ONCE PO 10/26/21 11:00 10/26/21 11:01 DC 10/26/21 12:17 Diclofenac Sodium (Voltaren) 1 sulma PRN TID PRN TP MUSCLE PAIN 11/07/21 12:45 12/04/21 05:56 I have reviewed the current psychotropics carefully including drug interactions. Risk benefit ratio favors no change other than as noted in my dictated progress note. Diagnosis: Problems: (1) Impulse control disorder, unspecified (2) Anxiety disorder, unspecified (3) Dementia, vascular, with depression (4) Dementia, vascular, with delusions (5) Dementia in Alzheimer's disease with depression (6) Dementia in Alzheimer's disease with delusions (7) Dementia of the Alzheimer's type with early onset with behavioral disturbance (8) Major neurocognitive disorder SOO BAIRES MD Dec 06, 2021 22:07
[2021-12-07 05:23] VITALS: BP 124/51
[2021-12-07] MEDS: QUEtiapine 25 MG TABLET. PO SCH ×2 (08:00→20:16)
[2021-12-07] MEDS: metFORMIN 500 MG TABLET PO SCH ×2 (08:00→16:47)
[2021-12-07] MEDS: IPRATROPIUM/ALBUTEROL 20/100mcg/INH INHALER. INH SCH ×4 (08:00→20:16)
--- NOTE | 2021-12-07 09:01 | PDOC ---
Exam Note: [place] Note: This note is a late entry for 12/04/2021 covers elements not covered in my initial note. Subjective: The patient was seen individually on 12/04/2021, discussed and reviewed the chart with Estefany TANG. The patient slept 7 hours previous night. I met with her in the dayroom. She was snugly sitting in her wheelchair with her personal blanket around her. Review of Systems: Ambulation impaired, in wheelchair. No CV, , pulmonary, eye, ENT system symptoms on review. Mental Status Exam: The patient is oriented to herself. She is pleasant, verbal, interactive. Speech is coherent. Abstraction fair. Computation impaired. Language function intact. Mood and affect anxious. No suicidal or homicidal ideation. Laboratory Data: Reviewed. Impression: Major neurocognitive disorder Alzheimer, vascular, with delusions, depression, behavioral disturbance. Anxiety disorder unspecified. Impulse control disorder unspecified. Plan: No change from initial note. Reviewed drug interactions, risk-benefit ratio. Assessment: Vital Signs/I&O: Vital Signs Date Time Temp Pulse Resp B/P (MAP) Pulse Ox O2 Delivery O2 Flow Rate FiO2 12/07/21 05:23 97.9 66 18 124/51 (75) 94 12/06/21 06:19 Room Air I & O 12/06/21 12/06/21 12/07/21 15:00 23:00 07:00 Intake Total 720 ml 120 ml Balance 720 ml 120 ml Labs: Laboratory Tests Test 12/07/21 07:30 Glucose (Fingerstick) 77 mg/dL (70-99) Current Medications: I have reviewed the current psychotropics carefully including drug interactions. Risk benefit ratio favors no change other than as noted in my dictated progress note. Diagnosis: Problems: (1) Impulse control disorder, unspecified (2) Anxiety disorder, unspecified (3) Dementia, vascular, with depression (4) Dementia, vascular, with delusions (5) Dementia in Alzheimer's disease with depression (6) Dementia in Alzheimer's disease with delusions (7) Dementia of the Alzheimer's type with early onset with behavioral disturbance (8) Major neurocognitive disorder SOO BAIRES MD Dec 07, 2021 09:01
--- NOTE | 2021-12-07 09:14 | PDOC ---
Exam Note: [place] Note: This note is a late entry for 12/05/2021 covers elements not covered in my initial note. Subjective: The patient was seen individually on 12/05/2021, discussed and reviewed the chart with Estefany TANG. The patient slept 7 hours previous night. I met with her in her room. She was nearly tucked in bed since it was a cloudy, dreary cold day. She continues to have sense of humor. She is verbal, interactive as I met with her. Review of Systems: Ambulation impaired, in wheelchair. No CV, , pulmonary, eye, ENT system symptoms on review. Mental Status Exam: The patient is oriented to herself. Speech is coherent. Abstraction fair. Computation impaired. Language function intact. Mood and affect anxious. No suicidal or homicidal ideation. Laboratory Data: Reviewed. Impression: Major neurocognitive disorder Alzheimer, vascular, with delusions, depression, behavioral disturbance. Anxiety disorder unspecified. Impulse control disorder unspecified. Plan: No change from initial note. Reviewed drug interactions, risk-benefit ratio. Assessment: Vital Signs/I&O: Vital Signs Date Time Temp Pulse Resp B/P (MAP) Pulse Ox O2 Delivery O2 Flow Rate FiO2 12/07/21 05:23 97.9 66 18 124/51 (75) 94 12/06/21 06:19 Room Air I & O 12/06/21 12/06/21 12/07/21 15:00 23:00 07:00 Intake Total 720 ml 120 ml Balance 720 ml 120 ml Labs: Laboratory Tests Test 12/07/21 07:30 Glucose (Fingerstick) 77 mg/dL (70-99) Current Medications: I have reviewed the current psychotropics carefully including drug interactions. Risk benefit ratio favors no change other than as noted in my dictated progress note. Diagnosis: Problems: (1) Impulse control disorder, unspecified (2) Anxiety disorder, unspecified (3) Dementia, vascular, with depression (4) Dementia, vascular, with delusions (5) Dementia in Alzheimer's disease with depression (6) Dementia in Alzheimer's disease with delusions (7) Dementia of the Alzheimer's type with early onset with behavioral disturbance (8) Major neurocognitive disorder SOO BAIRES MD Dec 07, 2021 09:14
[2021-12-07 15:51] VITALS: BP 125/71
[2021-12-07] MEDS: SERTRALINE 50 MG TABLET. PO SCH (20:16)
[2021-12-07] MEDS: MIRTAZAPINE 15 MG TABLET PO SCH (20:16)
[2021-12-07] MEDS: traZODone 50 MG TABLET. PO SCH (20:16)
[2021-12-07] MEDS: MELATONIN 3 MG TABLET PO SCH (20:16)
--- NOTE | 2021-12-07 21:58 | PDOC ---
Exam Note: [place] Note: Please also refer to the separate dictated note~for this date of service dictated separately.~Patient seen individually. Discussed the patient with Nursing staff reviewed the chart.~Reviewed interim history and current functioning. Reviewed vital signs,~Labs/ Radiology~and current medications noted below. Continue current treatment with the changes noted in the dictated addendum note Assessment: Vital Signs/I&O: Vital Signs Date Time Temp Pulse Resp B/P (MAP) Pulse Ox O2 Delivery O2 Flow Rate FiO2 12/07/21 15:51 97.3 75 16 125/71 (89) 96 12/06/21 06:19 Room Air I & O 12/06/21 12/06/21 12/07/21 15:00 23:00 07:00 Intake Total 720 ml 120 ml Balance 720 ml 120 ml Labs: Laboratory Tests Test 12/07/21 07:30 Glucose (Fingerstick) 77 mg/dL (70-99) Current Medications: Meds: Laboratory Tests Test 12/07/21 07:30 Glucose (Fingerstick) 77 mg/dL Current Medications Medications (Trade) Dose Ordered Sig/Richard Route PRN Reason Start Time Stop Time Status Last Admin Dose Admin Acetaminophen (Tylenol) 650 mg PRN Q6HRS PRN PO MILD PAIN / TEMP > 100.3'F 09/27/21 15:00 12/04/21 05:56 Mirtazapine (Remeron) 15 mg QHS PO 09/27/21 21:00 12/07/21 20:16 Olanzapine (ZyPREXA ZYDIS) 2.5 mg PRN Q2HRS PRN PO ANXIETY / AGITATION 09/27/21 15:00 11/27/21 20:14 Quetiapine Fumarate (SEROquel) 25 mg BID PO 09/27/21 21:00 12/07/21 20:16 Sertraline HCl (Zoloft) 50 mg HS PO 09/27/21 21:00 12/07/21 20:16 Trazodone HCl (Desyrel) 25 mg HS PO 09/27/21 21:00 10/05/21 18:14 DC 10/04/21 20:06 Melatonin (Melatonin) 3 mg HS PO 09/27/21 21:00 12/07/21 20:16 Metformin HCl (Glucophage) 500 mg BIDWMEALS PO 09/29/21 17:00 12/07/21 16:47 Nystatin (Nystop) 15 sulma STK-MED ONCE TP 10/04/21 09:36 10/04/21 09:36 DC Trazodone HCl (Desyrel) 50 mg HS PO 10/05/21 21:00 12/07/21 20:16 Trazodone HCl (Desyrel) 50 mg PRN QHS PRN PO INSOMNIA 10/05/21 18:15 12/05/21 20:02 Albuterol/ Ipratropium (Combivent Respimat 20-100 Mcg) 1 puff RTQID INH 10/18/21 20:00 12/07/21 20:16 Azithromycin (Zithromax) 500 mg 1X ONCE PO 10/19/21 16:45 10/19/21 16:46 DC 10/19/21 17:03 Azithromycin (Zithromax) 250 mg DAILY PO 10/20/21 09:00 10/24/21 22:00 DC 10/24/21 08:23 Lactobacillus Rhamnosus (Culturelle) 1 cap BID PO 10/21/21 09:00 11/29/21 16:02 DC 11/29/21 08:10 Diclofenac Sodium (Voltaren) 1 sulma TID TP 10/24/21 14:00 11/07/21 12:35 DC 11/06/21 20:18 Prednisone (Prednisone) 60 mg 1X ONCE PO 10/26/21 11:00 10/26/21 11:01 DC 10/26/21 12:17 Diclofenac Sodium (Voltaren) 1 sulma PRN TID PRN TP MUSCLE PAIN 11/07/21 12:45 12/04/21 05:56 I have reviewed the current psychotropics carefully including drug interactions. Risk benefit ratio favors no change other than as noted in my dictated progress note. Diagnosis: Problems: (1) Impulse control disorder, unspecified (2) Anxiety disorder, unspecified (3) Dementia, vascular, with depression (4) Dementia, vascular, with delusions (5) Dementia in Alzheimer's disease with depression (6) Dementia in Alzheimer's disease with delusions (7) Dementia of the Alzheimer's type with early onset with behavioral di sturbance (8) Major neurocognitive disorder SOO BAIRES MD Dec 07, 2021 21:58
--- NOTE | 2021-12-07 23:11 | PDOC ---
Exam Note: [place] Note: This note is a late entry for 12/06/2021 covers elements not covered in my initial note. Subjective: The patient was seen individually on 12/06/2021, discussed and reviewed the chart with Honey TANG. The patient slept 8 hours previous night. I met with her in the hallway outside the dining room and then later in the TV lounge. Overall she is doing reasonably well. No yelling noted, very pleasant individually, has a sense of humor. She complained of feeling cold and at my request nursing staff got her an extra cover and she is appreciative of this. Review of Systems: Ambulation impaired, in wheelchair. No CV, , pulmonary, eye, ENT system symptoms on review. Mental Status Exam: The patient is oriented to herself. Speech is coherent. Abstraction fair. Computation impaired. Language function intact. Mood and affect anxious. No suicidal or homicidal ideation. Laboratory Data: Reviewed. Impression: Major neurocognitive disorder Alzheimer, vascular, with delusions, depression, behavioral disturbance. Anxiety disorder unspecified. Impulse control disorder unspecified. Plan: No change from initial note. Reviewed drug interactions, risk-benefit ratio. Assessment: Vital Signs/I&O: Vital Signs Date Time Temp Pulse Resp B/P (MAP) Pulse Ox O2 Delivery O2 Flow Rate FiO2 12/07/21 15:51 97.3 75 16 125/71 (89) 96 12/06/21 06:19 Room Air I & O 12/06/21 12/06/21 12/07/21 14:59 22:59 06:59 Intake Total 720 ml 120 ml Balance 720 ml 120 ml Labs: Laboratory Tests Test 12/07/21 07:30 Glucose (Fingerstick) 77 mg/dL (70-99) Current Medications: I have reviewed the current psychotropics carefully including drug interactions. Risk benefit ratio favors no change other than as noted in my dictated progress note. Diagnosis: Problems: (1) Impulse control disorder, unspecified (2) Anxiety disorder, unspecified (3) Dementia, vascular, with depression (4) Dementia, vascular, with delusions (5) Dementia in Alzheimer's disease with depression (6) Dementia in Alzheimer's disease with delusions (7) Dementia of the Alzheimer's type with early onset with behavioral disturbance (8) Major neurocognitive disorder SOO BAIRES MD Dec 07, 2021 23:11
[2021-12-08 06:36] VITALS: BP 145/87
[2021-12-08] MEDS: IPRATROPIUM/ALBUTEROL 20/100mcg/INH INHALER. INH SCH ×4 (08:00→19:48)
[2021-12-08] MEDS: QUEtiapine 25 MG TABLET. PO SCH ×2 (08:01→19:44)
[2021-12-08] MEDS: metFORMIN 500 MG TABLET PO SCH ×2 (08:01→16:50)
[2021-12-08 15:52] VITALS: BP 123/74
[2021-12-08] MEDS: MIRTAZAPINE 15 MG TABLET PO SCH (19:44)
[2021-12-08] MEDS: traZODone 50 MG TABLET. PO SCH (19:44)
[2021-12-08] MEDS: MELATONIN 3 MG TABLET PO SCH (19:44)
[2021-12-08] MEDS: SERTRALINE 50 MG TABLET. PO SCH (19:45)
--- NOTE | 2021-12-08 21:58 | PDOC ---
Exam Note: [place] Note: Please also refer to the separate dictated note~for this date of service dictated separately.~Patient seen individually. Discussed the patient with Nursing staff reviewed the chart.~Reviewed interim history and current functioning. Reviewed vital signs,~Labs/ Radiology~and current medications noted below. Continue current treatment with the changes noted in the dictated addendum note Assessment: Vital Signs/I&O: Vital Signs Date Time Temp Pulse Resp B/P (MAP) Pulse Ox O2 Delivery O2 Flow Rate FiO2 12/08/21 15:52 97.8 73 16 123/74 (90) 95 12/08/21 06:36 Room Air I & O 12/07/21 12/07/21 12/08/21 15:00 23:00 07:00 Intake Total 930 ml 600 ml Balance 930 ml 600 ml Labs: Laboratory Tests Test 12/08/21 07:26 Glucose (Fingerstick) 90 mg/dL (70-99) Current Medications: Meds: Laboratory Tests Test 12/08/21 07:26 Glucose (Fingerstick) 90 mg/dL Current Medications Medications (Trade) Dose Ordered Sig/Richard Route PRN Reason Start Time Stop Time Status Last Admin Dose Admin Acetaminophen (Tylenol) 650 mg PRN Q6HRS PRN PO MILD PAIN / TEMP > 100.3'F 09/27/21 15:00 12/04/21 05:56 Mirtazapine (Remeron) 15 mg QHS PO 09/27/21 21:00 12/08/21 19:44 Olanzapine (ZyPREXA ZYDIS) 2.5 mg PRN Q2HRS PRN PO ANXIETY / AGITATION 09/27/21 15:00 11/27/21 20:14 Quetiapine Fumarate (SEROquel) 25 mg BID PO 09/27/21 21:00 12/08/21 19:44 Sertraline HCl (Zoloft) 50 mg HS PO 09/27/21 21:00 12/08/21 19:45 Trazodone HCl (Desyrel) 25 mg HS PO 09/27/21 21:00 10/05/21 18:14 DC 10/04/21 20:06 Melatonin (Melatonin) 3 mg HS PO 09/27/21 21:00 12/08/21 19:44 Metformin HCl (Glucophage) 500 mg BIDWMEALS PO 09/29/21 17:00 12/08/21 16:50 Nystatin (Nystop) 15 sulma STK-MED ONCE TP 10/04/21 09:36 10/04/21 09:36 DC Trazodone HCl (Desyrel) 50 mg HS PO 10/05/21 21:00 12/08/21 19:44 Trazodone HCl (Desyrel) 50 mg PRN QHS PRN PO INSOMNIA 10/05/21 18:15 12/05/21 20:02 Albuterol/ Ipratropium (Combivent Respimat 20-100 Mcg) 1 puff RTQID INH 10/18/21 20:00 12/08/21 19:48 Azithromycin (Zithromax) 500 mg 1X ONCE PO 10/19/21 16:45 10/19/21 16:46 DC 10/19/21 17:03 Azithromycin (Zithromax) 250 mg DAILY PO 10/20/21 09:00 10/24/21 22:00 DC 10/24/21 08:23 Lactobacillus Rhamnosus (Culturelle) 1 cap BID PO 10/21/21 09:00 11/29/21 16:02 DC 11/29/21 08:10 Diclofenac Sodium (Voltaren) 1 sulma TID TP 10/24/21 14:00 11/07/21 12:35 DC 11/06/21 20:18 Prednisone (Prednisone) 60 mg 1X ONCE PO 10/26/21 11:00 10/26/21 11:01 DC 10/26/21 12:17 Diclofenac Sodium (Voltaren) 1 sulma PRN TID PRN TP MUSCLE PAIN 11/07/21 12:45 12/04/21 05:56 I have reviewed the current psychotropics carefully including drug interactions. Risk benefit ratio favors no change other than as noted in my dictated progress note. Diagnosis: Problems: (1) Impulse control disorder, unspecified (2) Anxiety disorder, unspecified (3) Dementia, vascular, with depression (4) Dementia, vascular, with delusions (5) Dementia in Alzheimer's disease with depression (6) Dementia in Alzheimer's disease with delusions (7) Dementia of the Alzheimer's type with early onset with behavioral di sturbance (8) Major neurocognitive disorder SOO BAIRES MD Dec 08, 2021 21:58
[2021-12-09 06:00] VITALS: BP 160/62
[2021-12-09] MEDS: ACETAMINOPHEN 325 MG TABLET PO PRN (08:15)
[2021-12-09] MEDS: QUEtiapine 25 MG TABLET. PO SCH ×2 (08:37→20:32)
[2021-12-09] MEDS: IPRATROPIUM/ALBUTEROL 20/100mcg/INH INHALER. INH SCH ×4 (08:37→20:00)
[2021-12-09] MEDS: metFORMIN 500 MG TABLET PO SCH ×2 (08:37→17:18)
--- NOTE | 2021-12-09 08:47 | PDOC ---
Exam Note: [place] Note: This note is a late entry for 12/07/2021 covers elements not covered in my initial note. Subjective: The patient was seen individually on 12/07/2021, discussed and reviewed the chart with Miriam TANG. I met with the patient in the dayroom. She has done reasonably well with no overt behaviors. Review of Systems: Ambulation impaired, in wheelchair. No CV, , pulmonary, eye, ENT system symptoms on review. Mental Status Exam: The patient is oriented to herself. She is very pleasant, cooperative, has affable personality. Short-term memory is impaired. Speech is coherent. Abstraction fair. Computation impaired. Language function intact. Mood and affect anxious. No suicidal or homicidal ideation. Laboratory Data: Reviewed. Impression: Major neurocognitive disorder Alzheimer, vascular, with delusions, depression, behavioral disturbance. Anxiety disorder unspecified. Impulse control disorder unspecified. Plan: No change from initial note. Reviewed drug interactions, risk-benefit ratio. Assessment: Vital Signs/I&O: Vital Signs Date Time Temp Pulse Resp B/P (MAP) Pulse Ox O2 Delivery O2 Flow Rate FiO2 12/09/21 06:00 97.8 62 20 160/62 (94) 97 12/08/21 06:36 Room Air I & O 12/08/21 12/08/21 12/09/21 15:00 23:00 07:00 Intake Total 840 ml 360 ml Balance 840 ml 360 ml Labs: Laboratory Tests Test 12/09/21 07:17 Glucose (Fingerstick) 104 mg/dL (70-99) H Current Medications: I have reviewed the current psychotropics carefully including drug interactions. Risk benefit ratio favors no change other than as noted in my dictated progress note. Diagnosis: Problems: (1) Impulse control disorder, unspecified (2) Anxiety disorder, unspecified (3) Dementia, vascular, with depression (4) Dementia, vascular, with delusions (5) Dementia in Alzheimer's disease with depression (6) Dementia in Alzheimer's disease with delusions (7) Dementia of the Alzheimer's type with early onset with behavioral disturbance (8) Major neurocognitive disorder SOO BAIRES MD Dec 09, 2021 08:47
[2021-12-09 15:29] VITALS: BP 126/85
[2021-12-09] MEDS: SERTRALINE 50 MG TABLET. PO SCH (20:32)
[2021-12-09] MEDS: MIRTAZAPINE 15 MG TABLET PO SCH (20:32)
[2021-12-09] MEDS: traZODone 50 MG TABLET. PO SCH (20:33)
[2021-12-09] MEDS: MELATONIN 3 MG TABLET PO SCH (20:33)
--- NOTE | 2021-12-09 21:40 | PDOC ---
Exam Note: [place] Note: Please also refer to the separate dictated note~for this date of service dictated separately.~Patient seen individually. Discussed the patient with Nursing staff reviewed the chart.~Reviewed interim history and current functioning. Reviewed vital signs,~Labs/ Radiology~and current medications noted below. Continue current treatment with the changes noted in the dictated addendum note Assessment: Vital Signs/I&O: Vital Signs Date Time Temp Pulse Resp B/P (MAP) Pulse Ox O2 Delivery O2 Flow Rate FiO2 12/09/21 15:29 97.6 69 18 126/85 (99) 98 12/08/21 06:36 Room Air I & O 12/08/21 12/08/21 12/09/21 15:00 23:00 07:00 Intake Total 840 ml 360 ml Balance 840 ml 360 ml Labs: Laboratory Tests Test 12/09/21 07:17 Glucose (Fingerstick) 104 mg/dL (70-99) H Current Medications: Meds: Laboratory Tests Test 12/09/21 07:17 Glucose (Fingerstick) 104 mg/dL Current Medications Medications (Trade) Dose Ordered Sig/Richard Route PRN Reason Start Time Stop Time Status Last Admin Dose Admin Acetaminophen (Tylenol) 650 mg PRN Q6HRS PRN PO MILD PAIN / TEMP > 100.3'F 09/27/21 15:00 12/09/21 08:15 Mirtazapine (Remeron) 15 mg QHS PO 09/27/21 21:00 12/09/21 20:32 Olanzapine (ZyPREXA ZYDIS) 2.5 mg PRN Q2HRS PRN PO ANXIETY / AGITATION 09/27/21 15:00 11/27/21 20:14 Quetiapine Fumarate (SEROquel) 25 mg BID PO 09/27/21 21:00 12/09/21 20:32 Sertraline HCl (Zoloft) 50 mg HS PO 09/27/21 21:00 12/09/21 20:32 Trazodone HCl (Desyrel) 25 mg HS PO 09/27/21 21:00 10/05/21 18:14 DC 10/04/21 20:06 Melatonin (Melatonin) 3 mg HS PO 09/27/21 21:00 12/09/21 20:33 Metformin HCl (Glucophage) 500 mg BIDWMEALS PO 09/29/21 17:00 12/09/21 17:18 Nystatin (Nystop) 15 sulma STK-MED ONCE TP 10/04/21 09:36 10/04/21 09:36 DC Trazodone HCl (Desyrel) 50 mg HS PO 10/05/21 21:00 12/09/21 20:33 Trazodone HCl (Desyrel) 50 mg PRN QHS PRN PO INSOMNIA 10/05/21 18:15 12/05/21 20:02 Albuterol/ Ipratropium (Combivent Respimat 20-100 Mcg) 1 puff RTQID INH 10/18/21 20:00 12/09/21 20:00 Azithromycin (Zithromax) 500 mg 1X ONCE PO 10/19/21 16:45 10/19/21 16:46 DC 10/19/21 17:03 Azithromycin (Zithromax) 250 mg DAILY PO 10/20/21 09:00 10/24/21 22:00 DC 10/24/21 08:23 Lactobacillus Rhamnosus (Culturelle) 1 cap BID PO 10/21/21 09:00 11/29/21 16:02 DC 11/29/21 08:10 Diclofenac Sodium (Voltaren) 1 sulma TID TP 10/24/21 14:00 11/07/21 12:35 DC 11/06/21 20:18 Prednisone (Prednisone) 60 mg 1X ONCE PO 10/26/21 11:00 10/26/21 11:01 DC 10/26/21 12:17 Diclofenac Sodium (Voltaren) 1 sulma PRN TID PRN TP MUSCLE PAIN 11/07/21 12:45 12/04/21 05:56 I have reviewed the current psychotropics carefully including drug interactions. Risk benefit ratio favors no change other than as noted in my dictated progress note. Diagnosis: Problems: (1) Impulse control disorder, unspecified (2) Anxiety disorder, unspecified (3) Dementia, vascular, with depression (4) Dementia, vascular, with delusions (5) Dementia in Alzheimer's disease with depression (6) Dementia in Alzheimer's disease with delusions (7) Dementia of the Alzheimer's type with early onset with behavioral disturbance (8) Major neurocognitive disorder SOO BAIRES MD Dec 09, 2021 21:40
[2021-12-10 06:01] VITALS: BP 123/49
--- NOTE | 2021-12-10 08:27 | PDOC ---
Exam Note: [place] Note: This note is a late entry for 12/08/2021 covers elements not covered in my initial note. Subjective: The patient was seen individually on 12/08/2021, discussed and reviewed the chart with Joni TANG. The patient slept 6-1/4 hours previous night. Overall she is doing better. No yelling noted. I met with her in her room. She was lying in bed, pleasant, has a sense of humor and a rather cute tone to her speech. Review of Systems: Ambulation impaired, in wheelchair. No CV, , pulmonary, eye, ENT system symptoms on review. Mental Status Exam: The patient is oriented to herself. Speech is coherent. Abstraction fair. Computation impaired. Language function intact. Mood and affect anxious. No suicidal or homicidal ideation. Laboratory Data: Reviewed. Impression: Major neurocognitive disorder Alzheimer, vascular, with delusions, depression, behavioral disturbance. Anxiety disorder unspecified. Impulse control disorder unspecified. Plan: No change from initial note. Reviewed drug interactions, risk-benefit ratio. Social service staff is actively looking for placement trying to arrange guardianship for her. Assessment: Vital Signs/I&O: Vital Signs Date Time Temp Pulse Resp B/P (MAP) Pulse Ox O2 Delivery O2 Flow Rate FiO2 12/10/21 06:01 97.7 74 18 123/49 (73) 96 Room Air I & O 12/09/21 12/09/21 12/10/21 15:00 23:00 07:00 Intake Total 600 ml 360 ml Balance 600 ml 360 ml Labs: Laboratory Tests Test 12/10/21 07:47 Glucose (Fingerstick) 88 mg/dL (70-99) Current Medications: I have reviewed the current psychotropics carefully including drug interactions. Risk benefit ratio favors no change other than as noted in my dictated progress note. Diagnosis: Problems: (1) Impulse control disorder, unspecified (2) Anxiety disorder, unspecified (3) Dementia, vascular, with depression (4) Dementia, vascular, with delusions (5) Dementia in Alzheimer's disease with depression (6) Dementia in Alzheimer's disease with delusions (7) Dementia of the Alzheimer's type with early onset with behavioral disturbance (8) Major neurocognitive disorder SOO BAIRES MD Dec 10, 2021 08:26
[2021-12-10] MEDS: QUEtiapine 25 MG TABLET. PO SCH ×2 (08:35→20:41)
[2021-12-10] MEDS: metFORMIN 500 MG TABLET PO SCH ×2 (08:35→17:05)
[2021-12-10] MEDS: IPRATROPIUM/ALBUTEROL 20/100mcg/INH INHALER. INH SCH ×4 (08:36→20:41)
--- NOTE | 2021-12-10 08:42 | PDOC ---
Exam Note: [place] Note: This note is a late entry for 12/09/2021 covers elements not covered in my initial note. Subjective: The patient was reviewed at treatment team meeting individually in the morning on 12/09/2021 with Katherine Moreno, Eliza Muniz, and Stephani Curry (social services aide), Martina, activity therapy, and Honey TANG, discussed and reviewed the chart. The patient slept 8-1/2 hours previous night. I met with her in the evening in the dining room. Appetite 90%. Average sleep 7-1/4 hours. She has attended one group in the past one week. She remains pleasant, no yelling noted. Review of Systems: Ambulation impaired, in wheelchair. No CV, , pulmonary, eye system symptoms on review. Somewhat hard of hearing. Mental Status Exam: The patient is oriented to herself and situation. Speech is coherent, has some latency. Abstraction fair. Computation impaired. Language function intact. Attention span short. Mood and affect appears improved. No suicidal or homicidal ideation. Laboratory Data: Reviewed. Impression: Major neurocognitive disorder Alzheimer, vascular, with delusions, depression, behavioral disturbance. Anxiety disorder unspecified. Impulse control disorder unspecified. Plan: No change from initial note. Reviewed drug interactions, risk-benefit ratio. Assessment: Vital Signs/I&O: Vital Signs Date Time Temp Pulse Resp B/P (MAP) Pulse Ox O2 Delivery O2 Flow Rate FiO2 12/10/21 06:01 97.7 74 18 123/49 (73) 96 Room Air I & O 12/09/21 12/09/21 12/10/21 14:59 22:59 06:59 Intake Total 600 ml 360 ml Balance 600 ml 360 ml Labs: Laboratory Tests Test 12/10/21 07:47 Glucose (Fingerstick) 88 mg/dL (70-99) Current Medications: I have reviewed the current psychotropics carefully including drug interactions. Risk benefit ratio favors no change other than as noted in my dictated progress note. Diagnosis: Problems: (1) Impulse control disorder, unspecified (2) Anxiety disorder, unspecified (3) Dementia, vascular, with depression (4) Dementia, vascular, with delusions (5) Dementia in Alzheimer's disease with depression (6) Dementia in Alzheimer's disease with delusions (7) Dementia of the Alzheimer's type with early onset with behavioral disturbance (8) Major neurocognitive disorder SOO BAIRES MD Dec 10, 2021 08:42
--- NOTE | 2021-12-10 12:50 | TX PLAN ---
Interdisciplinary Tx Plan Admission Information Sep 27, 2021 at 12:55 Legal Status (on Admission): Voluntary DPOA/Guardian Name: Lucille NieceOscar Bergman Contact Other Contact Name: Jayna Sheikh Contact Verified Code Status: Full Code Allergies: Coded Allergies: No Known Drug Allergies (Unverified , 07/16/21) Diagnoses Primary Diagnosis: 1. 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 Mood disorder, unspecified. Reasons for Admission: Aggressive, Delusions, Agitated, Sig. Change Sleep, Hallucinations, Combative Problem in Patient's Words: Per pt great niece/DPOAАнна who was raised mostly by pt, pt has had a noticable decline over the past year and particularlly over the past couple of months. Up until a year ago, pt was living in her independant living apartment and out of the [place], she moved to [place], [place] and bought a house that she paid winn for. She was then found to be living in very poor conditions without running water and no utilities and overall unable to care for herself. She had a few past hospitalizations but then release to herself and then would be found again living in unsafe conditions. At one point, pt drove herself to Анна's home, but refused to come in to stay, and would only stay in her car. Анна was finally successful at gaining DPOA during one of pt's hospitalizations and also in getting her license revoked. During the past year, family and staff during the different hospitalizations discovered pt was having hallucinations and delusions that seem to continue. Анна is concerned if pt is struggling with onset of dementia or if pt is truly experiencing psychosis and might clear in the future with medication management. Additional Admission Comments: Per intake record, pt refusing UA and cath, sexually inappropriate comments to staff, not sleeping for 30 hours, combative to staff, delusions,auditory hallucinations, verbally aggressive, screaming, cussing, disruptive. Problems Active Problems: Agitation Inactive Problems: Pt has shown improvements. She is less aggressive, delusional, and combative. She, also, is sleeping better. Pt Strengths/Limitations Ability for [place]: Poor Cognitive Functioning/Ability: Poor Communication Skills/Ability: Fair Financial Resources: Fair Insight/Judgement: Poor Intellectual Ability: Fair Physical Health: Poor Social Skills: Fair Stability in Family: Fair Stability in School/Work: Fair Verbal Skills: Fair Discharge Criteria Discharge Criteria: Adequate arrangements @DC, Verbal commit med comply, Improved behavior, Improved mood/thought Other Discharge Comments: None at this time. Preliminary Discharge Plan Preliminary DC Plan: Placement Needed Special Precautions Special Precautions: Agitation/Assault, Swallowing/Choking Fall Risk: High Other Precautions (specify): Pt has a history of falls. Initial D/C Plan Pt will need placement at time of discharge. Identified Discharge Needs: None at this time. Currently Utilized Resources Currently Utilized Resources/P: Great Niece/DPOA-Анна Jj has hired and criminal attorney to assist with guardianship. Prior to Admission: PCP-Dr. Quang Raza Facility-[facility]; contact-CHANA Cruz *Note-Pt will not return to [facility] Referrals Community Resources: None known at this time. Identified Problems/Hx/Goals Objectives/Short-Term Goals Short Term Goals: Control abnormal behavior, Dec. Aggression, Dec. Anxiety/Panic, Dec. Hallucination/Delus, Dec. Outbursts, Medication Stabilization, Monitor Med Effects, Prevent Deterioration, Promote Coping Skill Short Term Goals in Patient's: Assist with proper diagnosis of psychosis vs dementia. Interventions/Frequency Staff Interventions/Frequency&: Psychiatry to assess pt three times per week for medication management. Nursing to assess behaviors, monitor medications, and complete 15 minute checks daily. Social work to see pt at least two times weekly to aid in return to placement. Activities to encourage pt to participate in group activities daily. 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 Education: According to DPOA, pt received a high school diploma and she had some technical college. Community Follow-up PCP Community Provider/Family Inpu: Pt great nigregorio/Анна LANG, provided pt history for the development of the treatment plan. Анна is available for further information should it be needed. Treatment Plan Explained Patient/Field Attendant had this treatment plan explained to him/her as indicated by the signature below and has been given the opportunity to ask questions and make suggestions: Date: Patient/Field Attendant Signature: Status Update Update Mary Lou has been eating 90% of her meals and continues to sleep an average of 7.25 hours. She does nap often after meals. Pt yelling out is significantly less than at admission time. She continues to be pleasantly confused and disorganized. She has had a video visit with her niece over the past week that she did enjoy, but seemed to become disorganized in her thinking during the conversation. Pt propels herself to the dining area. She prefers to spend most of her time in her room. She has had an occasion roommate that she gets along well with. Pt has been pleasant, calm, and enjoys sarcasm/teasing with staff. APS denied pt report and did not assign case. CHANA has reached out to hospital legal team who has provided a list of questions that will be needed to start the guardianship process. CHANA has involved pt niece/DPOA to assist in answering the questions. The questions will be submitted to the legal team so that [facility] placement can be pursued. Treatment plan was completed on 12/09/21. LINDA BLACKWELL Dec 10, 2021 12:49
[2021-12-10 16:04] VITALS: BP 125/54
[2021-12-10] MEDS: SERTRALINE 50 MG TABLET. PO SCH (20:41)
[2021-12-10] MEDS: traZODone 50 MG TABLET. PO SCH (20:41)
[2021-12-10] MEDS: MIRTAZAPINE 15 MG TABLET PO SCH (20:41)
[2021-12-10] MEDS: MELATONIN 3 MG TABLET PO SCH (20:41)
--- NOTE | 2021-12-10 21:55 | PDOC ---
Exam Note: [place] Note: Please also refer to the separate dictated note~for this date of service dictated separately.~Patient seen individually. Discussed the patient with Nursing staff reviewed the chart.~Reviewed interim history and current functioning. Reviewed vital signs,~Labs/ Radiology~and current medications noted below. Continue current treatment with the changes noted in the dictated addendum note Assessment: Vital Signs/I&O: Vital Signs Date Time Temp Pulse Resp B/P (MAP) Pulse Ox O2 Delivery O2 Flow Rate FiO2 12/10/21 16:04 98.2 78 16 125/54 (77) 95 Room Air I & O 12/09/21 12/09/21 12/10/21 15:00 23:00 07:00 Intake Total 600 ml 360 ml Balance 600 ml 360 ml Labs: Laboratory Tests Test 12/10/21 07:47 Glucose (Fingerstick) 88 mg/dL (70-99) Current Medications: Meds: Laboratory Tests Test 12/10/21 07:47 Glucose (Fingerstick) 88 mg/dL Current Medications Medications (Trade) Dose Ordered Sig/Richard Route PRN Reason Start Time Stop Time Status Last Admin Dose Admin Acetaminophen (Tylenol) 650 mg PRN Q6HRS PRN PO MILD PAIN / TEMP > 100.3'F 09/27/21 15:00 12/09/21 08:15 Mirtazapine (Remeron) 15 mg QHS PO 09/27/21 21:00 12/10/21 20:41 Olanzapine (ZyPREXA ZYDIS) 2.5 mg PRN Q2HRS PRN PO ANXIETY / AGITATION 09/27/21 15:00 11/27/21 20:14 Quetiapine Fumarate (SEROquel) 25 mg BID PO 09/27/21 21:00 12/10/21 20:41 Sertraline HCl (Zoloft) 50 mg HS PO 09/27/21 21:00 12/10/21 20:41 Trazodone HCl (Desyrel) 25 mg HS PO 09/27/21 21:00 10/05/21 18:14 DC 10/04/21 20:06 Melatonin (Melatonin) 3 mg HS PO 09/27/21 21:00 12/10/21 20:41 Metformin HCl (Glucophage) 500 mg BIDWMEALS PO 09/29/21 17:00 12/10/21 17:05 Nystatin (Nystop) 15 sulma STK-MED ONCE TP 10/04/21 09:36 10/04/21 09:36 DC Trazodone HCl (Desyrel) 50 mg HS PO 10/05/21 21:00 12/10/21 20:41 Trazodone HCl (Desyrel) 50 mg PRN QHS PRN PO INSOMNIA 10/05/21 18:15 12/05/21 20:02 Albuterol/ Ipratropium (Combivent Respimat 20-100 Mcg) 1 puff RTQID INH 10/18/21 20:00 12/10/21 20:41 Azithromycin (Zithromax) 500 mg 1X ONCE PO 10/19/21 16:45 10/19/21 16:46 DC 10/19/21 17:03 Azithromycin (Zithromax) 250 mg DAILY PO 10/20/21 09:00 10/24/21 22:00 DC 10/24/21 08:23 Lactobacillus Rhamnosus (Culturelle) 1 cap BID PO 10/21/21 09:00 11/29/21 16:02 DC 11/29/21 08:10 Diclofenac Sodium (Voltaren) 1 sulma TID TP 10/24/21 14:00 11/07/21 12:35 DC 11/06/21 20:18 Prednisone (Prednisone) 60 mg 1X ONCE PO 10/26/21 11:00 10/26/21 11:01 DC 10/26/21 12:17 Diclofenac Sodium (Voltaren) 1 sulma PRN TID PRN TP MUSCLE PAIN 11/07/21 12:45 12/04/21 05:56 I have reviewed the current psychotropics carefully including drug interactions. Risk benefit ratio favors no change other than as noted in my dictated progress note. Diagnosis: Problems: (1) Impulse control disorder, unspecified (2) Anxiety disorder, unspecified (3) Dementia, vascular, with depression (4) Dementia, vascular, with delusions (5) Dementia in Alzheimer's disease with depression (6) Dementia in Alzheimer's disease with delusions (7) Dementia of the Alzheimer's type with early onset with behavioral disturbance (8) Major neurocognitive disorder SOO BAIRES MD Dec 10, 2021 21:55
[2021-12-11 06:01] VITALS: BP 168/80
[2021-12-11 07:08] LABS: BASO # 0.1 x10^3/uL (0.0-0.2); BASO % 1 % (0-3); EOS # 0.3 x10^3/uL (0.0-0.7); EOS % 4 % (0-3); HEMOGLOBIN 10.6 g/dL (12.0-15.5); LYMPH # 2.8 x10^3/uL (1.0-4.8); LYMPH % 38 % (24-48); MEAN CORPUSCULAR HEMOGLOBIN 27 pg (25-35); MEAN CORPUSCULAR HGB CONC 32 g/dL (31-37); MEAN CORPUSCULAR VOLUME 84 fL (79-100); MONO # 0.4 x10^3/uL (0.0-1.1); MONO % 6 % (0-9); NEUT # 3.7 x10^3uL (1.8-7.7); NEUT % 51 % (31-73); PLATELET COUNT 181 x10^3/uL (140-400); RED BLOOD COUNT 3.94 x10^6/uL (3.50-5.40); RED CELL DISTRIBUTION WIDTH 15.8 % (11.5-14.5); WHITE BLOOD COUNT 7.2 x10^3/uL (4.0-11.0)
[2021-12-11] MEDS: metFORMIN 500 MG TABLET PO SCH ×2 (07:33→17:21)
[2021-12-11] MEDS: QUEtiapine 25 MG TABLET. PO SCH ×2 (07:33→20:48)
[2021-12-11 07:39] LABS: ALBUMIN 2.8 g/dL (3.4-5.0); ALBUMIN/GLOBULIN RATIO 0.7 (1.0-1.7); CALCIUM 8.8 mg/dL (8.5-10.1); CREATININE 0.9 mg/dL (0.6-1.0); GFR 59.7; POTASSIUM 4.6 mmol/L (3.5-5.1); TOTAL BILIRUBIN 0.2 mg/dL (0.2-1.0); TOTAL PROTEIN 6.7 g/dL (6.4-8.2)
[2021-12-11] MEDS: IPRATROPIUM/ALBUTEROL 20/100mcg/INH INHALER. INH SCH ×4 (07:39→20:48)
--- NOTE | 2021-12-11 10:04 | PDOC ---
Exam Note: [place] Note: This note is a late entry for 12/10/2021 covers elements not covered in my initial note. Subjective: The patient was seen individually on 12/10/2021, discussed and reviewed the chart with Steve TANG. The patient slept 7-1/4 hours previous night. I met with her in her room. She was wearing her colored blanket around her since it was a little cold. She continues to have a sense of humor. Review of Systems: Ambulation impaired, in wheelchair. No CV, , pulmonary, eye system symptoms on review. Mental Status Exam: The patient is oriented to herself and situation. Speech is coherent, has some latency. Abstraction fair. Computation impaired. Language function intact. Attention span short. Mood and affect appears improved. No suicidal or homicidal ideation. Laboratory Data: Reviewed. Impression: Major neurocognitive disorder Alzheimer, vascular, with delusions, depression, behavioral disturbance. Anxiety disorder unspecified. Impulse control disorder unspecified. Plan: No change from initial note. Reviewed drug interactions, risk-benefit ratio. Assessment: Vital Signs/I&O: Vital Signs Date Time Temp Pulse Resp B/P (MAP) Pulse Ox O2 Delivery O2 Flow Rate FiO2 12/11/21 06:01 98.3 72 20 168/80 (109) 96 12/10/21 16:04 Room Air I & O 12/10/21 12/10/21 12/11/21 15:00 23:00 07:00 Intake Total 820 ml 60 ml Balance 820 ml 60 ml Labs: Laboratory Tests Test 12/11/21 06:52 12/11/21 07:49 White Blood Count 7.2 x10^3/uL (4.0-11.0) Red Blood Count 3.94 x10^6/uL (3.50-5.40) Hemoglobin 10.6 g/dL (12.0-15.5) L Hematocrit 33.0 % (36.0-47.0) L Mean Corpuscular Volume 84 fL (79-100) Mean Corpuscular Hemoglobin 27 pg (25-35) Mean Corpuscular Hemoglobin Concent 32 g/dL (31-37) Red Cell Distribution Width 15.8 % (11.5-14.5) H Platelet Count 181 x10^3/uL (140-400) Neutrophils (%) (Auto) 51 % (31-73) Lymphocytes (%) (Auto) 38 % (24-48) Monocytes (%) (Auto) 6 % (0-9) Eosinophils (%) (Auto) 4 % (0-3) H Basophils (%) (Auto) 1 % (0-3) Neutrophils # (Auto) 3.7 x10^3uL (1.8-7.7) Lymphocytes # (Auto) 2.8 x10^3/uL (1.0-4.8) Monocytes # (Auto) 0.4 x10^3/uL (0.0-1.1) Eosinophils # (Auto) 0.3 x10^3/uL (0.0-0.7) Basophils # (Auto) 0.1 x10^3/uL (0.0-0.2) Sodium Level 140 mmol/L (136-145) Potassium Level 4.6 mmol/L (3.5-5.1) Chloride Level 104 mmol/L (98-107) Carbon Dioxide Level 28 mmol/L (21-32) Anion Gap 8 (6-14) Blood Urea Nitrogen 38 mg/dL (7-20) H Creatinine 0.9 mg/dL (0.6-1.0) Estimated GFR (Cockcroft-Gault) 59.7 BUN/Creatinine Ratio 42 (6-20) H Glucose Level 98 mg/dL (70-99) Calcium Level 8.8 mg/dL (8.5-10.1) Total Bilirubin 0.2 mg/dL (0.2-1.0) Aspartate Amino Transferase (AST) 15 U/L (15-37) Alanine Aminotransferase (ALT) 19 U/L (14-59) Alkaline Phosphatase 112 U/L (46-116) Total Protein 6.7 g/dL (6.4-8.2) Albumin 2.8 g/dL (3.4-5.0) L Albumin/Globulin Ratio 0.7 (1.0-1.7) L Glucose (Fingerstick) 112 mg/dL (70-99) H Current Medications: I have reviewed the current psychotropics carefully including drug interactions. Risk benefit ratio favors no change other than as noted in my dictated progress note. Diagnosis: Problems: (1) Impulse control disorder, unspecified (2) Anxiety disorder, unspecified (3) Dementia, vascular, with depression (4) Dementia, vascular, with delusions (5) Dementia in Alzheimer's disease with depression (6) Dementia in Alzheimer's disease with delusions (7) Dementia of the Alzheimer's type with early onset with behavioral disturbance (8) Major neurocognitive disorder SOO BAIRES MD Dec 11, 2021 10:04
[2021-12-11 16:06] VITALS: BP 147/83
[2021-12-11] MEDS: traZODone 50 MG TABLET. PO SCH (20:48)
[2021-12-11] MEDS: MELATONIN 3 MG TABLET PO SCH (20:48)
[2021-12-11] MEDS: MIRTAZAPINE 15 MG TABLET PO SCH (20:48)
[2021-12-11] MEDS: SERTRALINE 50 MG TABLET. PO SCH (20:48)
--- NOTE | 2021-12-11 21:53 | PDOC ---
Exam Note: [place] Note: Please also refer to the separate dictated note~for this date of service dictated separately.~Patient seen individually. Discussed the patient with Nursing staff reviewed the chart.~Reviewed interim history and current functioning. Reviewed vital signs,~Labs/ Radiology~and current medications noted below. Continue current treatment with the changes noted in the dictated addendum note Assessment: Vital Signs/I&O: Vital Signs Date Time Temp Pulse Resp B/P (MAP) Pulse Ox O2 Delivery O2 Flow Rate FiO2 12/11/21 16:06 97.6 70 20 147/83 (104) 96 12/10/21 16:04 Room Air I & O 12/10/21 12/10/21 12/11/21 14:59 22:59 06:59 Intake Total 820 ml 60 ml Balance 820 ml 60 ml Labs: Laboratory Tests Test 12/11/21 06:52 12/11/21 07:49 White Blood Count 7.2 x10^3/uL (4.0-11.0) Red Blood Count 3.94 x10^6/uL (3.50-5.40) Hemoglobin 10.6 g/dL (12.0-15.5) L Hematocrit 33.0 % (36.0-47.0) L Mean Corpuscular Volume 84 fL (79-100) Mean Corpuscular Hemoglobin 27 pg (25-35) Mean Corpuscular Hemoglobin Concent 32 g/dL (31-37) Red Cell Distribution Width 15.8 % (11.5-14.5) H Platelet Count 181 x10^3/uL (140-400) Neutrophils (%) (Auto) 51 % (31-73) Lymphocytes (%) (Auto) 38 % (24-48) Monocytes (%) (Auto) 6 % (0-9) Eosinophils (%) (Auto) 4 % (0-3) H Basophils (%) (Auto) 1 % (0-3) Neutrophils # (Auto) 3.7 x10^3uL (1.8-7.7) Lymphocytes # (Auto) 2.8 x10^3/uL (1.0-4.8) Monocytes # (Auto) 0.4 x10^3/uL (0.0-1.1) Eosinophils # (Auto) 0.3 x10^3/uL (0.0-0.7) Basophils # (Auto) 0.1 x10^3/uL (0.0-0.2) Sodium Level 140 mmol/L (136-145) Potassium Level 4.6 mmol/L (3.5-5.1) Chloride Level 104 mmol/L (98-107) Carbon Dioxide Level 28 mmol/L (21-32) Anion Gap 8 (6-14) Blood Urea Nitrogen 38 mg/dL (7-20) H Creatinine 0.9 mg/dL (0.6-1.0) Estimated GFR (Cockcroft-Gault) 59.7 BUN/Creatinine Ratio 42 (6-20) H Glucose Level 98 mg/dL (70-99) Calcium Level 8.8 mg/dL (8.5-10.1) Total Bilirubin 0.2 mg/dL (0.2-1.0) Aspartate Amino Transferase (AST) 15 U/L (15-37) Alanine Aminotransferase (ALT) 19 U/L (14-59) Alkaline Phosphatase 112 U/L (46-116) Total Protein 6.7 g/dL (6.4-8.2) Albumin 2.8 g/dL (3.4-5.0) L Albumin/Globulin Ratio 0.7 (1.0-1.7) L Glucose (Fingerstick) 112 mg/dL (70-99) H Current Medications: Meds: Laboratory Tests Test 12/11/21 06:52 12/11/21 07:49 White Blood Count 7.2 x10^3/uL Red Blood Count 3.94 x10^6/uL Hemoglobin 10.6 g/dL Hematocrit 33.0 % Mean Corpuscular Volume 84 fL Mean Corpuscular Hemoglobin 27 pg Mean Corpuscular Hemoglobin Concent 32 g/dL Red Cell Distribution Width 15.8 % Platelet Count 181 x10^3/uL Neutrophils (%) (Auto) 51 % Lymphocytes (%) (Auto) 38 % Monocytes (%) (Auto) 6 % Eosinophils (%) (Auto) 4 % Basophils (%) (Auto) 1 % Neutrophils # (Auto) 3.7 x10^3uL Lymphocytes # (Auto) 2.8 x10^3/uL Monocytes # (Auto) 0.4 x10^3/uL Eosinophils # (Auto) 0.3 x10^3/uL Basophils # (Auto) 0.1 x10^3/uL Sodium Level 140 mmol/L Potassium Level 4.6 mmol/L Chloride Level 104 mmol/L Carbon Dioxide Level 28 mmol/L Anion Gap 8 Blood Urea Nitrogen 38 mg/dL Creatinine 0.9 mg/dL Estimated GFR (Cockcroft-Gault) 59.7 BUN/Creatinine Ratio 42 Glucose Level 98 mg/dL Calcium Level 8.8 mg/dL Total Bilirubin 0.2 mg/dL Aspartate Amino Transf (AST/SGOT) 15 U/L Alanine Aminotransferase (ALT/SGPT) 19 U/L Alkaline Phosphatase 112 U/L Total Protein 6.7 g/dL Albumin 2.8 g/dL Albumin/Globulin Ratio 0.7 Glucose (Fingerstick) 112 mg/dL Current Medications Medications (Trade) Dose Ordered Sig/Richard Route PRN Reason Start Time Stop Time Status Last Admin Dose Admin Acetaminophen (Tylenol) 650 mg PRN Q6HRS PRN PO MILD PAIN / TEMP > 100.3'F 09/27/21 15:00 12/09/21 08:15 Mirtazapine (Remeron) 15 mg QHS PO 09/27/21 21:00 12/11/21 20:48 Olanzapine (ZyPREXA ZYDIS) 2.5 mg PRN Q2HRS PRN PO ANXIETY / AGITATION 09/27/21 15:00 11/27/21 20:14 Quetiapine Fumarate (SEROquel) 25 mg BID PO 09/27/21 21:00 12/11/21 20:48 Sertraline HCl (Zoloft) 50 mg HS PO 09/27/21 21:00 12/11/21 20:48 Trazodone HCl (Desyrel) 25 mg HS PO 09/27/21 21:00 10/05/21 18:14 DC 10/04/21 20:06 Melatonin (Melatonin) 3 mg HS PO 09/27/21 21:00 12/11/21 20:48 Metformin HCl (Glucophage) 500 mg BIDWMEALS PO 09/29/21 17:00 12/11/21 17:21 Nystatin (Nystop) 15 sulma STK-MED ONCE TP 10/04/21 09:36 10/04/21 09:36 DC Trazodone HCl (Desyrel) 50 mg HS PO 10/05/21 21:00 12/11/21 20:48 Trazodone HCl (Desyrel) 50 mg PRN QHS PRN PO INSOMNIA 10/05/21 18:15 12/05/21 20:02 Albuterol/ Ipratropium (Combivent Respimat 20-100 Mcg) 1 puff RTQID INH 10/18/21 20:00 12/11/21 20:48 Azithromycin (Zithromax) 500 mg 1X ONCE PO 10/19/21 16:45 10/19/21 16:46 DC 10/19/21 17:03 Azithromycin (Zithromax) 250 mg DAILY PO 10/20/21 09:00 10/24/21 22:00 DC 10/24/21 08:23 Lactobacillus Rhamnosus (Culturelle) 1 cap BID PO 10/21/21 09:00 11/29/21 16:02 DC 11/29/21 08:10 Diclofenac Sodium (Voltaren) 1 sulma TID TP 10/24/21 14:00 11/07/21 12:35 DC 11/06/21 20:18 Prednisone (Prednisone) 60 mg 1X ONCE PO 10/26/21 11:00 10/26/21 11:01 DC 10/26/21 12:17 Diclofenac Sodium (Voltaren) 1 sulma PRN TID PRN TP MUSCLE PAIN 11/07/21 12:45 12/04/21 05:56 I have reviewed the current psychotropics carefully including drug interactions. Risk benefit ratio favors no change other than as noted in my dictated progress note. Diagnosis: Problems: (1) Impulse control disorder, unspecified (2) Anxiety disorder, unspecified (3) Dementia, vascular, with depression (4) Dementia, vascular, with delusions (5) Dementia in Alzheimer's disease with depression (6) Dementia in Alzheimer's disease with delusions (7) Dementia of the Alzheimer's type with early onset with behavioral disturbance (8) Major neurocognitive disorder SOO BAIRES MD Dec 11, 2021 21:53
[2021-12-12 06:30] VITALS: BP 139/66
[2021-12-12] MEDS: metFORMIN 500 MG TABLET PO SCH ×2 (07:59→17:23)
[2021-12-12] MEDS: IPRATROPIUM/ALBUTEROL 20/100mcg/INH INHALER. INH SCH ×4 (08:00→20:56)
[2021-12-12] MEDS: QUEtiapine 25 MG TABLET. PO SCH ×2 (08:00→20:57)
--- NOTE | 2021-12-12 09:06 | PDOC ---
Exam Note: [place] Note: This note is a late entry for 12/11/2021 covers elements not covered in my initial note. Subjective: The patient was seen individually on 12/11/2021, discussed and reviewed the chart with Steve TANG. The patient slept 6-1/4 hours previous night. I met with her in her room. She has been pleasant, cooperative, has a sense of humor. Review of Systems: Ambulation impaired, in wheelchair. She is wearing a blanket around her feeling cold. She does complain of some arm pain. No CV, , pulmonary, eye system symptoms on review. Mental Status Exam: The patient is oriented to herself and situation. Speech is coherent, has some latency. Abstraction fair. Computation impaired. Language function intact. Attention span short. Mood and affect appears improved. No suicidal or homicidal ideation. Laboratory Data: Reviewed. Impression: Major neurocognitive disorder Alzheimer, vascular, with delusions, depression, behavioral disturbance. Anxiety disorder unspecified. Impulse control disorder unspecified. Plan: No change from initial note. Reviewed drug interactions, risk-benefit ratio. Assessment: Vital Signs/I&O: Vital Signs Date Time Temp Pulse Resp B/P (MAP) Pulse Ox O2 Delivery O2 Flow Rate FiO2 12/12/21 06:30 97.5 83 18 139/66 (90) 95 12/10/21 16:04 Room Air I & O 12/11/21 12/11/21 12/12/21 14:59 22:59 06:59 Intake Total 700 ml 340 ml Balance 700 ml 340 ml Labs: Laboratory Tests Test 12/12/21 07:48 Glucose (Fingerstick) 98 mg/dL (70-99) Current Medications: I have reviewed the current psychotropics carefully including drug interactions. Risk benefit ratio favors no change other than as noted in my dictated progress note. Diagnosis: Problems: (1) Impulse control disorder, unspecified (2) Anxiety disorder, unspecified (3) Dementia, vascular, with depression (4) Dementia, vascular, with delusions (5) Dementia in Alzheimer's disease with depression (6) Dementia in Alzheimer's disease with delusions (7) Dementia of the Alzheimer's type with early onset with behavioral disturbance (8) Major neurocognitive disorder SOO BAIRES MD Dec 12, 2021 09:06
[2021-12-12 16:37] VITALS: BP 138/58
[2021-12-12] MEDS: MELATONIN 3 MG TABLET PO SCH (20:56)
[2021-12-12] MEDS: MIRTAZAPINE 15 MG TABLET PO SCH (20:56)
[2021-12-12] MEDS: traZODone 50 MG TABLET. PO SCH (20:57)
[2021-12-12] MEDS: SERTRALINE 50 MG TABLET. PO SCH (20:57)
--- NOTE | 2021-12-12 21:27 | PDOC ---
Exam Note: [place] Note: Please also refer to the separate dictated note~for this date of service dictated separately.~Patient seen individually. Discussed the patient with Nursing staff reviewed the chart.~Reviewed interim history and current functioning. Reviewed vital signs,~Labs/ Radiology~and current medications noted below. Continue current treatment with the changes noted in the dictated addendum note Assessment: Vital Signs/I&O: Vital Signs Date Time Temp Pulse Resp B/P (MAP) Pulse Ox O2 Delivery O2 Flow Rate FiO2 12/12/21 16:37 97.8 69 20 138/58 (84) 97 12/10/21 16:04 Room Air I & O 12/11/21 12/11/21 12/12/21 15:00 23:00 07:00 Intake Total 700 ml 340 ml Balance 700 ml 340 ml Labs: Laboratory Tests Test 12/12/21 07:48 12/12/21 17:00 Glucose (Fingerstick) 98 mg/dL (70-99) POC SARS CoV-2 Antigen Negative (NEGATIVE) Current Medications: Meds: Laboratory Tests Test 12/12/21 07:48 12/12/21 17:00 Glucose (Fingerstick) 98 mg/dL POC SARS CoV-2 Antigen Negative Current Medications Medications (Trade) Dose Ordered Sig/Richard Route PRN Reason Start Time Stop Time Status Last Admin Dose Admin Acetaminophen (Tylenol) 650 mg PRN Q6HRS PRN PO MILD PAIN / TEMP > 100.3'F 09/27/21 15:00 12/09/21 08:15 Mirtazapine (Remeron) 15 mg QHS PO 09/27/21 21:00 12/12/21 20:56 Olanzapine (ZyPREXA ZYDIS) 2.5 mg PRN Q2HRS PRN PO ANXIETY / AGITATION 09/27/21 15:00 11/27/21 20:14 Quetiapine Fumarate (SEROquel) 25 mg BID PO 09/27/21 21:00 12/12/21 20:57 Sertraline HCl (Zoloft) 50 mg HS PO 09/27/21 21:00 12/12/21 20:57 Trazodone HCl (Desyrel) 25 mg HS PO 09/27/21 21:00 10/05/21 18:14 DC 10/04/21 20:06 Melatonin (Melatonin) 3 mg HS PO 09/27/21 21:00 12/12/21 20:56 Metformin HCl (Glucophage) 500 mg BIDWMEALS PO 09/29/21 17:00 12/12/21 17:23 Nystatin (Nystop) 15 sulma STK-MED ONCE TP 10/04/21 09:36 10/04/21 09:36 DC Trazodone HCl (Desyrel) 50 mg HS PO 10/05/21 21:00 12/12/21 20:57 Trazodone HCl (Desyrel) 50 mg PRN QHS PRN PO INSOMNIA 10/05/21 18:15 12/05/21 20:02 Albuterol/ Ipratropium (Combivent Respimat 20-100 Mcg) 1 puff RTQID INH 10/18/21 20:00 12/12/21 20:56 Azithromycin (Zithromax) 500 mg 1X ONCE PO 10/19/21 16:45 10/19/21 16:46 DC 10/19/21 17:03 Azithromycin (Zithromax) 250 mg DAILY PO 10/20/21 09:00 10/24/21 22:00 DC 10/24/21 08:23 Lactobacillus Rhamnosus (Culturelle) 1 cap BID PO 10/21/21 09:00 11/29/21 16:02 DC 11/29/21 08:10 Diclofenac Sodium (Voltaren) 1 sulma TID TP 10/24/21 14:00 11/07/21 12:35 DC 11/06/21 20:18 Prednisone (Prednisone) 60 mg 1X ONCE PO 10/26/21 11:00 10/26/21 11:01 DC 10/26/21 12:17 Diclofenac Sodium (Voltaren) 1 sulma PRN TID PRN TP MUSCLE PAIN 11/07/21 12:45 12/04/21 05:56 I have reviewed the current psychotropics carefully including drug interactions. Risk benefit ratio favors no change other than as noted in my dictated progress note. 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
[2021-12-13] MEDS: DICLOFENAC SODIUM 1% TOPICAL GEL 100GM TUBE. TP PRN (04:59)
[2021-12-13] MEDS: ACETAMINOPHEN 325 MG TABLET PO PRN (04:59)
[2021-12-13 05:27] LABS: CLARITY,URINE CLEAR; COLOR,URINE YELLOW; GLUCOSE,URINE NEG (NEG)
[2021-12-13 05:28] LABS: BACTERIA,URINE FEW /HPF (0-FEW); NITRITE,URINE NEG (NEG); SQUAMOUS EPITHELIAL CELL,UR FEW /LPF; UROBILINOGEN,URINE 0.2 mg/dL (0.2 mg/dL); YEAST,URINE PRESENT /HPF
[2021-12-13 06:36] VITALS: BP 135/76
[2021-12-13] MEDS: IPRATROPIUM/ALBUTEROL 20/100mcg/INH INHALER. INH SCH ×4 (08:00→21:00)
[2021-12-13] MEDS: QUEtiapine 25 MG TABLET. PO SCH ×2 (08:04→20:58)
[2021-12-13] MEDS: metFORMIN 500 MG TABLET PO SCH ×2 (08:04→17:00)
[2021-12-13] MEDS: NYSTATIN TOPICAL POWDER 15GM BOTTLE. TP SCH ×2 (08:07→20:59)
[2021-12-13 15:44] VITALS: BP 116/63
[2021-12-13] MEDS: MIRTAZAPINE 15 MG TABLET PO SCH (20:58)
[2021-12-13] MEDS: SERTRALINE 50 MG TABLET. PO SCH (20:58)
[2021-12-13] MEDS: MELATONIN 3 MG TABLET PO SCH (20:59)
[2021-12-13] MEDS: traZODone 50 MG TABLET. PO SCH (20:59)
--- NOTE | 2021-12-13 22:16 | PDOC ---
Exam Note: Troy Note: Please also refer to the separate dictated note~for this date of service dictated separately.~Patient seen individually. Discussed the patient with Nursing staff reviewed the chart.~Reviewed interim history and current functioning. Reviewed vital signs,~Labs/ Radiology~and current medications noted below. Continue current treatment with the changes noted in the dictated addendum note Assessment: Vital Signs/I&O: Vital Signs Date Time Temp Pulse Resp B/P (MAP) Pulse Ox O2 Delivery O2 Flow Rate FiO2 12/13/21 15:44 97.0 69 19 116/63 (80) 96 12/10/21 16:04 Room Air I & O 12/12/21 12/12/21 12/13/21 14:59 22:59 06:59 Intake Total 360 ml 580 ml 0 ml Balance 360 ml 580 ml 0 ml Labs: Laboratory Tests Test 12/13/21 04:50 12/13/21 07:40 Urine Collection Type U cath Urine Color Yellow Urine Clarity Clear Urine pH 5.5 Urine Specific [place] 1.020 Urine Protein Neg (NEG-TRACE) Urine Glucose (UA) Neg mg/dL (NEG) Urine Ketones (Stick) Neg mg/dL (NEG) Urine Blood Trace (NEG) Urine Nitrite Neg (NEG) Urine Bilirubin Neg (NEG) Urine Urobilinogen Dipstick 0.2 mg/dL (0.2 mg/dL) Urine Leukocyte Esterase Trace (NEG) Urine RBC 1-2 /HPF (0-2) Urine WBC 5-10 /HPF (0-4) Urine Squamous Epithelial Cells Few /LPF Urine Bacteria Few /HPF (0-FEW) Urine Yeast Present /HPF Glucose (Fingerstick) 88 mg/dL (70-99) Current Medications: Meds: Laboratory Tests Test 12/13/21 04:50 12/13/21 07:40 Urine Collection Type U cath Urine Color Yellow Urine Clarity Clear Urine pH 5.5 Urine Specific [place] 1.020 Urine Protein Neg Urine Glucose (UA) Neg mg/dL Urine Ketones (Stick) Neg mg/dL Urine Blood Trace Urine Nitrite Neg Urine Bilirubin Neg Urine Urobilinogen Dipstick 0.2 mg/dL Urine Leukocyte Esterase Trace Urine RBC 1-2 /HPF Urine WBC 5-10 /HPF Urine Squamous Epithelial Cells Few /LPF Urine Bacteria Few /HPF Urine Yeast Present /HPF Glucose (Fingerstick) 88 mg/dL Current Medications Medications (Trade) Dose Ordered Sig/Richard Route PRN Reason Start Time Stop Time Status Last Admin Dose Admin Acetaminophen (Tylenol) 650 mg PRN Q6HRS PRN PO MILD PAIN / TEMP > 100.3'F 09/27/21 15:00 12/13/21 04:59 Mirtazapine (Remeron) 15 mg QHS PO 09/27/21 21:00 12/13/21 20:58 Olanzapine (ZyPREXA ZYDIS) 2.5 mg PRN Q2HRS PRN PO ANXIETY / AGITATION 09/27/21 15:00 11/27/21 20:14 Quetiapine Fumarate (SEROquel) 25 mg BID PO 09/27/21 21:00 12/13/21 20:58 Sertraline HCl (Zoloft) 50 mg HS PO 09/27/21 21:00 12/13/21 20:58 Trazodone HCl (Desyrel) 25 mg HS PO 09/27/21 21:00 10/05/21 18:14 DC 10/04/21 20:06 Melatonin (Melatonin) 3 mg HS PO 09/27/21 21:00 12/13/21 20:59 Metformin HCl (Glucophage) 500 mg BIDWMEALS PO 09/29/21 17:00 12/13/21 17:00 Nystatin (Nystop) 15 sulma STK-MED ONCE TP 10/04/21 09:36 10/04/21 09:36 DC Trazodone HCl (Desyrel) 50 mg HS PO 10/05/21 21:00 12/13/21 20:59 Trazodone HCl (Desyrel) 50 mg PRN QHS PRN PO INSOMNIA 10/05/21 18:15 12/05/21 20:02 Albuterol/ Ipratropium (Combivent Respimat 20-100 Mcg) 1 puff RTQID INH 10/18/21 20:00 12/13/21 21:00 Azithromycin (Zithromax) 500 mg 1X ONCE PO 10/19/21 16:45 10/19/21 16:46 DC 10/19/21 17:03 Azithromycin (Zithromax) 250 mg DAILY PO 10/20/21 09:00 10/24/21 22:00 DC 10/24/21 08:23 Lactobacillus Rhamnosus (Culturelle) 1 cap BID PO 10/21/21 09:00 11/29/21 16:02 DC 11/29/21 08:10 Diclofenac Sodium (Voltaren) 1 sulma TID TP 10/24/21 14:00 11/07/21 12:35 DC 11/06/21 20:18 Prednisone (Prednisone) 60 mg 1X ONCE PO 10/26/21 11:00 10/26/21 11:01 DC 10/26/21 12:17 Diclofenac Sodium (Voltaren) 1 sulma PRN TID PRN TP MUSCLE PAIN 11/07/21 12:45 12/13/21 04:59 Nystatin (Nystop) 1 sulma BID TP 12/13/21 09:00 12/13/21 20:59 Current Medications Medications (Trade) Dose Ordered Sig/Richard Route PRN Reason Start Time Stop Time Status Last Admin Dose Admin Nystatin (Nystop) 1 sulma BID TP 12/13/21 09:00 12/13/21 20:59 I have reviewed the current psychotropics carefully including drug interactions. Risk benefit ratio favors no change other than as noted in my dictated progress note. Diagnosis: Problems: (1) Impulse control disorder, unspecified (2) Anxiety disorder, unspecified (3) Dementia, vascular, with depression (4) Dementia, vascular, with delusions (5) Dementia in Alzheimer's disease with depression (6) Dementia in Alzheimer's disease with delusions (7) Dementia of the Alzheimer's type with early onset with behavioral disturbance (8) Major neurocognitive disorder SOO BAIRES MD Dec 13, 2021 22:16
[2021-12-14 06:03] VITALS: BP 145/85
[2021-12-14] MEDS: IPRATROPIUM/ALBUTEROL 20/100mcg/INH INHALER. INH SCH ×4 (08:00→20:00)
[2021-12-14] MEDS: QUEtiapine 25 MG TABLET. PO SCH ×2 (08:09→20:28)
[2021-12-14] MEDS: metFORMIN 500 MG TABLET PO SCH ×2 (08:09→17:00)
[2021-12-14] MEDS: NYSTATIN TOPICAL POWDER 15GM BOTTLE. TP SCH ×2 (08:10→20:28)
--- NOTE | 2021-12-14 10:20 | PDOC ---
Exam Note: [place] Note: This note is a late entry for 12/12/2021 covers elements not covered in my initial note. Subjective: The patient was seen individually on 12/12/2021, discussed and reviewed the chart with Steve TANG. The patient slept 6-1/2 hours previous night. I met with her in her room. She was complaining of dry skin. Review of Systems: Impaired ambulation impaired, in wheelchair, otherwise, cooperative, not yelling. No CV, , pulmonary, eye system symptoms on review. Mental Status Exam: The patient is oriented to herself and situation. Speech is coherent, has some latency. Abstraction fair. Computation impaired. Language function intact. Attention span short. Mood and affect appears improved. No suicidal or homicidal ideation. Laboratory Data: Reviewed. Impression: Major neurocognitive disorder Alzheimer, vascular, with delusions, depression, behavioral disturbance. Anxiety disorder unspecified. Impulse control disorder unspecified. Plan: No change from initial note. Reviewed drug interactions, risk-benefit ratio. Assessment: Vital Signs/I&O: Vital Signs Date Time Temp Pulse Resp B/P (MAP) Pulse Ox O2 Delivery O2 Flow Rate FiO2 12/14/21 06:03 98.5 73 18 145/85 (105) 94 12/10/21 16:04 Room Air I & O 12/13/21 12/13/21 12/14/21 15:00 23:00 07:00 Intake Total 840 ml 480 ml Balance 840 ml 480 ml Labs: Laboratory Tests Test 12/14/21 07:54 Glucose (Fingerstick) 96 mg/dL (70-99) Current Medications: I have reviewed the current psychotropics carefully including drug interactions. Risk benefit ratio favors no change other than as noted in my dictated progress note. Diagnosis: Problems: (1) Impulse control disorder, unspecified (2) Anxiety disorder, unspecified (3) Dementia, vascular, with depression (4) Dementia, vascular, with delusions (5) Dementia in Alzheimer's disease with depression (6) Dementia in Alzheimer's disease with delusions (7) Dementia of the Alzheimer's type with early onset with behavioral disturbance (8) Major neurocognitive disorder SOO BAIRES MD Dec 14, 2021 10:19
[2021-12-14 16:32] VITALS: BP 137/66
[2021-12-14] MEDS: MIRTAZAPINE 15 MG TABLET PO SCH (20:28)
[2021-12-14] MEDS: traZODone 50 MG TABLET. PO SCH (20:28)
[2021-12-14] MEDS: SERTRALINE 50 MG TABLET. PO SCH (20:28)
[2021-12-14] MEDS: MELATONIN 3 MG TABLET PO SCH (20:28)
--- NOTE | 2021-12-14 22:00 | PDOC ---
Exam Note: Troy Note: Please also refer to the separate dictated note~for this date of service dictated separately.~Patient seen individually. Discussed the patient with Nursing staff reviewed the chart.~Reviewed interim history and current functioning. Reviewed vital signs,~Labs/ Radiology~and current medications noted below. Continue current treatment with the changes noted in the dictated addendum note Assessment: Vital Signs/I&O: Vital Signs Date Time Temp Pulse Resp B/P (MAP) Pulse Ox O2 Delivery O2 Flow Rate FiO2 12/14/21 16:32 97.9 66 16 137/66 (89) 96 12/10/21 16:04 Room Air I & O 12/13/21 12/13/21 12/14/21 15:00 23:00 07:00 Intake Total 840 ml 480 ml Balance 840 ml 480 ml Labs: Laboratory Tests Test 12/14/21 07:54 Glucose (Fingerstick) 96 mg/dL (70-99) Current Medications: Meds: Laboratory Tests Test 12/14/21 07:54 Glucose (Fingerstick) 96 mg/dL Current Medications Medications (Trade) Dose Ordered Sig/Richard Route PRN Reason Start Time Stop Time Status Last Admin Dose Admin Acetaminophen (Tylenol) 650 mg PRN Q6HRS PRN PO MILD PAIN / TEMP > 100.3'F 09/27/21 15:00 12/13/21 04:59 Mirtazapine (Remeron) 15 mg QHS PO 09/27/21 21:00 12/14/21 20:28 Olanzapine (ZyPREXA ZYDIS) 2.5 mg PRN Q2HRS PRN PO ANXIETY / AGITATION 09/27/21 15:00 11/27/21 20:14 Quetiapine Fumarate (SEROquel) 25 mg BID PO 09/27/21 21:00 12/14/21 20:28 Sertraline HCl (Zoloft) 50 mg HS PO 09/27/21 21:00 12/14/21 20:28 Trazodone HCl (Desyrel) 25 mg HS PO 09/27/21 21:00 10/05/21 18:14 DC 10/04/21 20:06 Melatonin (Melatonin) 3 mg HS PO 09/27/21 21:00 12/14/21 20:28 Metformin HCl (Glucophage) 500 mg BIDWMEALS PO 09/29/21 17:00 12/14/21 17:00 Nystatin (Nystop) 15 sulma STK-MED ONCE TP 10/04/21 09:36 10/04/21 09:36 DC Trazodone HCl (Desyrel) 50 mg HS PO 10/05/21 21:00 12/14/21 20:28 Trazodone HCl (Desyrel) 50 mg PRN QHS PRN PO INSOMNIA 10/05/21 18:15 12/05/21 20:02 Albuterol/ Ipratropium (Combivent Respimat 20-100 Mcg) 1 puff RTQID INH 10/18/21 20:00 12/14/21 20:00 Azithromycin (Zithromax) 500 mg 1X ONCE PO 10/19/21 16:45 10/19/21 16:46 DC 10/19/21 17:03 Azithromycin (Zithromax) 250 mg DAILY PO 10/20/21 09:00 10/24/21 22:00 DC 10/24/21 08:23 Lactobacillus Rhamnosus (Culturelle) 1 cap BID PO 10/21/21 09:00 11/29/21 16:02 DC 11/29/21 08:10 Diclofenac Sodium (Voltaren) 1 sulma TID TP 10/24/21 14:00 11/07/21 12:35 DC 11/06/21 20:18 Prednisone (Prednisone) 60 mg 1X ONCE PO 10/26/21 11:00 10/26/21 11:01 DC 10/26/21 12:17 Diclofenac Sodium (Voltaren) 1 sulma PRN TID PRN TP MUSCLE PAIN 11/07/21 12:45 12/13/21 04:59 Nystatin (Nystop) 1 sulma BID TP 12/13/21 09:00 12/14/21 20:28 I have reviewed the current psychotropics carefully including drug interactions. Risk benefit ratio favors no change other than as noted in my dictated progress note. 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
[2021-12-15 06:09] VITALS: BP 127/59
--- NOTE | 2021-12-15 08:21 | PDOC ---
Exam Note: [place] Note: This note is a late entry for 12/13/2021 covers elements not covered in my initial note. Subjective: The patient was seen individually on 12/13/2021, discussed and reviewed the chart with Desi TANG. The patient slept 7-1/2 hours previous night. I met with her in her room. Overall patient was doing better. No overt yelling. She does have a sense of humor, does complain dryness of her forearms. Review of Systems: Ambulation impaired, in wheelchair. No CV, , pulmonary, eye system symptoms on review. Mental Status Exam: The patient is oriented to herself and situation. Speech is coherent, has some latency. Abstraction fair. Computation impaired. Language function intact. Attention span short. Mood and affect appears improved. No suicidal or homicidal ideation. Laboratory Data: Reviewed. Impression: Major neurocognitive disorder Alzheimer, vascular, with delusions, depression, behavioral disturbance. Anxiety disorder unspecified. Impulse control disorder unspecified. Plan: No change from initial note. Reviewed drug interactions, risk-benefit ratio. Assessment: Vital Signs/I&O: Vital Signs Date Time Temp Pulse Resp B/P (MAP) Pulse Ox O2 Delivery O2 Flow Rate FiO2 12/15/21 06:09 98.2 60 20 127/59 (81) 95 Room Air I & O 12/14/21 12/14/21 12/15/21 15:00 23:00 07:00 Intake Total 560 ml 360 ml Balance 560 ml 360 ml Labs: Laboratory Tests Test 12/15/21 07:44 Glucose (Fingerstick) 105 mg/dL (70-99) H Current Medications: I have reviewed the current psychotropics carefully including drug interactions. Risk benefit ratio favors no change other than as noted in my dictated progress note. Diagnosis: Problems: (1) Impulse control disorder, unspecified (2) Anxiety disorder, unspecified (3) Dementia, vascular, with depression (4) Dementia, vascular, with delusions (5) Dementia in Alzheimer's disease with depression (6) Dementia in Alzheimer's disease with delusions (7) Dementia of the Alzheimer's type with early onset with behavioral disturbance (8) Major neurocognitive disorder SOO BAIRES MD Dec 15, 2021 08:21
[2021-12-15 08:28] LABS: BASO % 0 % (0-3); EOS # 0.3 x10^3/uL (0.0-0.7); EOS % 4 % (0-3); HEMATOCRIT 34.7 % (36.0-47.0); LYMPH # 2.7 x10^3/uL (1.0-4.8); LYMPH % 37 % (24-48); MEAN CORPUSCULAR HEMOGLOBIN 27 pg (25-35); MEAN CORPUSCULAR HGB CONC 32 g/dL (31-37); MEAN CORPUSCULAR VOLUME 85 fL (79-100); MONO # 0.4 x10^3/uL (0.0-1.1); MONO % 6 % (0-9); NEUT # 3.9 x10^3uL (1.8-7.7); NEUT % 53 % (31-73); PLATELET COUNT 174 x10^3/uL (140-400); RED BLOOD COUNT 4.08 x10^6/uL (3.50-5.40); WHITE BLOOD COUNT 7.3 x10^3/uL (4.0-11.0)
[2021-12-15] MEDS: QUEtiapine 25 MG TABLET. PO SCH ×2 (08:38→20:32)
[2021-12-15] MEDS: metFORMIN 500 MG TABLET PO SCH ×2 (08:38→17:23)
[2021-12-15 08:52] LABS: ALBUMIN 2.9 g/dL (3.4-5.0); ALBUMIN/GLOBULIN RATIO 0.7 (1.0-1.7); CREATININE 0.9 mg/dL (0.6-1.0); GFR 59.7; POTASSIUM 4.8 mmol/L (3.5-5.1); TOTAL BILIRUBIN 0.3 mg/dL (0.2-1.0); TOTAL PROTEIN 7.3 g/dL (6.4-8.2)
[2021-12-15] MEDS: NYSTATIN TOPICAL POWDER 15GM BOTTLE. TP SCH ×2 (09:26→20:33)
[2021-12-15] MEDS: IPRATROPIUM/ALBUTEROL 20/100mcg/INH INHALER. INH SCH ×4 (09:26→20:00)
[2021-12-15 15:49] VITALS: BP 133/72
[2021-12-15] MEDS: SERTRALINE 50 MG TABLET. PO SCH (20:32)
[2021-12-15] MEDS: MELATONIN 3 MG TABLET PO SCH (20:32)
[2021-12-15] MEDS: MIRTAZAPINE 15 MG TABLET PO SCH (20:32)
[2021-12-15] MEDS: traZODone 50 MG TABLET. PO SCH (20:32)
--- NOTE | 2021-12-15 22:00 | PDOC ---
Exam Note: [place] Note: Please also refer to the separate dictated note~for this date of service dictated separately.~Patient seen individually. Discussed the patient with Nursing staff reviewed the chart.~Reviewed interim history and current functioning. Reviewed vital signs,~Labs/ Radiology~and current medications noted below. Continue current treatment with the changes noted in the dictated addendum note Assessment: Vital Signs/I&O: Vital Signs Date Time Temp Pulse Resp B/P (MAP) Pulse Ox O2 Delivery O2 Flow Rate FiO2 12/15/21 15:49 98.0 67 17 133/72 (92) 98 12/15/21 06:09 Room Air I & O 12/14/21 12/14/21 12/15/21 15:00 23:00 07:00 Intake Total 560 ml 360 ml Balance 560 ml 360 ml Labs: Laboratory Tests Test 12/15/21 07:44 12/15/21 07:55 Glucose (Fingerstick) 105 mg/dL (70-99) H White Blood Count 7.3 x10^3/uL (4.0-11.0) Red Blood Count 4.08 x10^6/uL (3.50-5.40) Hemoglobin 11.0 g/dL (12.0-15.5) L Hematocrit 34.7 % (36.0-47.0) L Mean Corpuscular Volume 85 fL (79-100) Mean Corpuscular Hemoglobin 27 pg (25-35) Mean Corpuscular Hemoglobin Concent 32 g/dL (31-37) Red Cell Distribution Width 16.0 % (11.5-14.5) H Platelet Count 174 x10^3/uL (140-400) Neutrophils (%) (Auto) 53 % (31-73) Lymphocytes (%) (Auto) 37 % (24-48) Monocytes (%) (Auto) 6 % (0-9) Eosinophils (%) (Auto) 4 % (0-3) H Basophils (%) (Auto) 0 % (0-3) Neutrophils # (Auto) 3.9 x10^3uL (1.8-7.7) Lymphocytes # (Auto) 2.7 x10^3/uL (1.0-4.8) Monocytes # (Auto) 0.4 x10^3/uL (0.0-1.1) Eosinophils # (Auto) 0.3 x10^3/uL (0.0-0.7) Basophils # (Auto) 0.0 x10^3/uL (0.0-0.2) Sodium Level 143 mmol/L (136-145) Potassium Level 4.8 mmol/L (3.5-5.1) Chloride Level 109 mmol/L (98-107) H Carbon Dioxide Level 27 mmol/L (21-32) Anion Gap 7 (6-14) Blood Urea Nitrogen 36 mg/dL (7-20) H Creatinine 0.9 mg/dL (0.6-1.0) Estimated GFR (Cockcroft-Gault) 59.7 BUN/Creatinine Ratio 40 (6-20) H Glucose Level 93 mg/dL (70-99) Calcium Level 9.0 mg/dL (8.5-10.1) Total Bilirubin 0.3 mg/dL (0.2-1.0) Aspartate Amino Transferase (AST) 19 U/L (15-37) Alanine Aminotransferase (ALT) 20 U/L (14-59) Alkaline Phosphatase 117 U/L (46-116) H Total Protein 7.3 g/dL (6.4-8.2) Albumin 2.9 g/dL (3.4-5.0) L Albumin/Globulin Ratio 0.7 (1.0-1.7) L Current Medications: Meds: Laboratory Tests Test 12/15/21 07:44 12/15/21 07:55 Glucose (Fingerstick) 105 mg/dL White Blood Count 7.3 x10^3/uL Red Blood Count 4.08 x10^6/uL Hemoglobin 11.0 g/dL Hematocrit 34.7 % Mean Corpuscular Volume 85 fL Mean Corpuscular Hemoglobin 27 pg Mean Corpuscular Hemoglobin Concent 32 g/dL Red Cell Distribution Width 16.0 % Platelet Count 174 x10^3/uL Neutrophils (%) (Auto) 53 % Lymphocytes (%) (Auto) 37 % Monocytes (%) (Auto) 6 % Eosinophils (%) (Auto) 4 % Basophils (%) (Auto) 0 % Neutrophils # (Auto) 3.9 x10^3uL Lymphocytes # (Auto) 2.7 x10^3/uL Monocytes # (Auto) 0.4 x10^3/uL Eosinophils # (Auto) 0.3 x10^3/uL Basophils # (Auto) 0.0 x10^3/uL Sodium Level 143 mmol/L Potassium Level 4.8 mmol/L Chloride Level 109 mmol/L Carbon Dioxide Level 27 mmol/L Anion Gap 7 Blood Urea Nitrogen 36 mg/dL Creatinine 0.9 mg/dL Estimated GFR (Cockcroft-Gault) 59.7 BUN/Creatinine Ratio 40 Glucose Level 93 mg/dL Calcium Level 9.0 mg/dL Total Bilirubin 0.3 mg/dL Aspartate Amino Transf (AST/SGOT) 19 U/L Alanine Aminotransferase (ALT/SGPT) 20 U/L Alkaline Phosphatase 117 U/L Total Protein 7.3 g/dL Albumin 2.9 g/dL Albumin/Globulin Ratio 0.7 Current Medications Medications (Trade) Dose Ordered Sig/Richard Route PRN Reason Start Time Stop Time Status Last Admin Dose Admin Acetaminophen (Tylenol) 650 mg PRN Q6HRS PRN PO MILD PAIN / TEMP > 100.3'F 09/27/21 15:00 12/13/21 04:59 Mirtazapine (Remeron) 15 mg QHS PO 09/27/21 21:00 12/15/21 20:32 Olanzapine (ZyPREXA ZYDIS) 2.5 mg PRN Q2HRS PRN PO ANXIETY / AGITATION 09/27/21 15:00 11/27/21 20:14 Quetiapine Fumarate (SEROquel) 25 mg BID PO 09/27/21 21:00 12/15/21 20:32 Sertraline HCl (Zoloft) 50 mg HS PO 09/27/21 21:00 12/15/21 20:32 Trazodone HCl (Desyrel) 25 mg HS PO 09/27/21 21:00 10/05/21 18:14 DC 10/04/21 20:06 Melatonin (Melatonin) 3 mg HS PO 09/27/21 21:00 12/15/21 20:32 Metformin HCl (Glucophage) 500 mg BIDWMEALS PO 09/29/21 17:00 12/15/21 17:23 Nystatin (Nystop) 15 sulma STK-MED ONCE TP 10/04/21 09:36 10/04/21 09:36 DC Trazodone HCl (Desyrel) 50 mg HS PO 10/05/21 21:00 12/15/21 20:32 Trazodone HCl (Desyrel) 50 mg PRN QHS PRN PO INSOMNIA 10/05/21 18:15 12/05/21 20:02 Albuterol/ Ipratropium (Combivent Respimat 20-100 Mcg) 1 puff RTQID INH 10/18/21 20:00 12/15/21 20:00 Azithromycin (Zithromax) 500 mg 1X ONCE PO 10/19/21 16:45 10/19/21 16:46 DC 10/19/21 17:03 Azithromycin (Zithromax) 250 mg DAILY PO 10/20/21 09:00 10/24/21 22:00 DC 10/24/21 08:23 Lactobacillus Rhamnosus (Culturelle) 1 cap BID PO 10/21/21 09:00 11/29/21 16:02 DC 11/29/21 08:10 Diclofenac Sodium (Voltaren) 1 sulma TID TP 10/24/21 14:00 11/07/21 12:35 DC 11/06/21 20:18 Prednisone (Prednisone) 60 mg 1X ONCE PO 10/26/21 11:00 10/26/21 11:01 DC 10/26/21 12:17 Diclofenac Sodium (Voltaren) 1 sulma PRN TID PRN TP MUSCLE PAIN 11/07/21 12:45 12/13/21 04:59 Nystatin (Nystop) 1 sulma BID TP 12/13/21 09:00 12/15/21 20:33 I have reviewed the current psychotropics carefully including drug interactions. Risk benefit ratio favors no change other than as noted in my dictated progress note. Diagnosis: Problems: (1) Impulse control disorder, unspecified (2) Anxiety disorder, unspecified (3) Dementia, vascular, with depression (4) Dementia, vascular, with delusions (5) Dementia in Alzheimer's disease with depression (6) Dementia in Alzheimer's disease with delusions (7) Dementia of the Alzheimer's type with early onset with behavioral disturbance (8) Major neurocognitive disorder SOO BAIRES MD Dec 15, 2021 22:00
[2021-12-16 06:11] LABS: HEMOGLOBIN A1C 6.7 % (4.8-5.6)
[2021-12-16 06:44] VITALS: BP 136/57
--- NOTE | 2021-12-16 08:29 | PDOC ---
Exam Note: [place] Note: This note is a late entry for 12/14/2021 covers elements not covered in my initial note. Subjective: The patient was seen individually on 12/14/2021, discussed and reviewed the chart with Nahomi TANG. The patient slept 7 hours previous night. Overall she remains confused. I met with her in her room. She was lying in bed, neatly tucked in, yelling at times, resistive to medications. Repeat UA is negative. She has been intermittently resistive to medications. Review of Systems: Ambulation impaired, in wheelchair. No CV, , pulmonary, eye system symptoms on review. Mental Status Exam: The patient is oriented to herself and situation. Speech is coherent. Abstraction fair. Computation impaired. Language function intact. Attention span short. Mood and affect appears improved. No suicidal or homicidal ideation. Laboratory Data: Reviewed. Impression: Major neurocognitive disorder Alzheimer, vascular, with delusions, depression, behavioral disturbance. Anxiety disorder unspecified. Impulse control disorder unspecified. Plan: No change from initial note. Reviewed drug interactions, risk-benefit ratio. Assessment: Vital Signs/I&O: Vital Signs Date Time Temp Pulse Resp B/P (MAP) Pulse Ox O2 Delivery O2 Flow Rate FiO2 12/16/21 06:44 97.8 72 16 136/57 (83) 96 12/15/21 06:09 Room Air I & O 12/15/21 12/15/21 12/16/21 15:00 23:00 07:00 Intake Total 840 ml 360 ml 100 ml Balance 840 ml 360 ml 100 ml Labs: Laboratory Tests Test 12/16/21 07:50 Glucose (Fingerstick) 92 mg/dL (70-99) Current Medications: I have reviewed the current psychotropics carefully including drug interactions. Risk benefit ratio favors no change other than as noted in my dictated progress note. Diagnosis: Problems: (1) Impulse control disorder, unspecified (2) Anxiety disorder, unspecified (3) Dementia, vascular, with depression (4) Dementia, vascular, with delusions (5) Dementia in Alzheimer's disease with depression (6) Dementia in Alzheimer's disease with delusions (7) Dementia of the Alzheimer's type with early onset with behavioral disturbance (8) Major neurocognitive disorder SOO BAIRES MD Dec 16, 2021 08:28
--- NOTE | 2021-12-16 08:54 | PDOC ---
Exam Note: [place] Note: This note is a late entry for 12/15/2021 covers elements not covered in my initial note. Subjective: The patient was seen individually on 12/15/2021, discussed and reviewed the chart with Nahomi TANG. The patient slept 8-3/4 hours previous night. She is compliant with her medications. She remains somewhat labile, anxious, dramatic per nursing report and we addressed this individually. Review of Systems: Ambulation impaired, in wheelchair. No CV, , pulmonary, eye system symptoms on review. Mental Status Exam: The patient is oriented to herself and situation. Speech is coherent, has some latency. Abstraction fair. Computation impaired. Language function intact. Attention span short. Mood and affect labile, anxious. No suicidal or homicidal ideation. Laboratory Data: Reviewed. Impression: Major neurocognitive disorder Alzheimer, vascular, with delusions, depression, behavioral disturbance. Anxiety disorder unspecified. Impulse control disorder unspecified. Plan: No change from initial note. Reviewed drug interactions, risk-benefit ratio. Assessment: Vital Signs/I&O: Vital Signs Date Time Temp Pulse Resp B/P (MAP) Pulse Ox O2 Delivery O2 Flow Rate FiO2 12/16/21 06:44 97.8 72 16 136/57 (83) 96 12/15/21 06:09 Room Air I & O 12/15/21 12/15/21 12/16/21 15:00 23:00 07:00 Intake Total 840 ml 360 ml 100 ml Balance 840 ml 360 ml 100 ml Labs: Laboratory Tests Test 12/16/21 07:50 Glucose (Fingerstick) 92 mg/dL (70-99) Current Medications: I have reviewed the current psychotropics carefully including drug interactions. Risk benefit ratio favors no change other than as noted in my dictated progress note. Diagnosis: Problems: (1) Impulse control disorder, unspecified (2) Anxiety disorder, unspecified (3) Dementia, vascular, with depression (4) Dementia, vascular, with delusions (5) Dementia in Alzheimer's disease with depression (6) Dementia in Alzheimer's disease with delusions (7) Dementia of the Alzheimer's type with early onset with behavioral disturbance (8) Major neurocognitive disorder SOO BAIRES MD Dec 16, 2021 08:54
[2021-12-16] MEDS: QUEtiapine 25 MG TABLET. PO SCH ×2 (08:57→20:02)
[2021-12-16] MEDS: IPRATROPIUM/ALBUTEROL 20/100mcg/INH INHALER. INH SCH ×4 (08:57→20:03)
[2021-12-16] MEDS: metFORMIN 500 MG TABLET PO SCH ×2 (08:57→16:53)
[2021-12-16] MEDS: NYSTATIN TOPICAL POWDER 15GM BOTTLE. TP SCH ×2 (08:57→20:03)
[2021-12-16 15:59] VITALS: BP 146/76
[2021-12-16] MEDS: MELATONIN 3 MG TABLET PO SCH (20:02)
[2021-12-16] MEDS: SERTRALINE 50 MG TABLET. PO SCH (20:02)
[2021-12-16] MEDS: MIRTAZAPINE 15 MG TABLET PO SCH (20:02)
[2021-12-16] MEDS: traZODone 50 MG TABLET. PO SCH (20:02)
--- NOTE | 2021-12-16 21:55 | PDOC ---
Exam Note: [place] Note: Please also refer to the separate dictated note~for this date of service dictated separately.~Patient seen individually. Discussed the patient with Nursing staff reviewed the chart.~Reviewed interim history and current functioning. Reviewed vital signs,~Labs/ Radiology~and current medications noted below. Continue current treatment with the changes noted in the dictated addendum note Assessment: Vital Signs/I&O: Vital Signs Date Time Temp Pulse Resp B/P (MAP) Pulse Ox O2 Delivery O2 Flow Rate FiO2 12/16/21 15:59 97.1 69 18 146/76 (99) 98 12/15/21 06:09 Room Air I & O 12/15/21 12/15/21 12/16/21 15:00 23:00 07:00 Intake Total 840 ml 360 ml 100 ml Balance 840 ml 360 ml 100 ml Labs: Laboratory Tests Test 12/16/21 07:50 Glucose (Fingerstick) 92 mg/dL (70-99) Current Medications: Meds: Laboratory Tests Test 12/16/21 07:50 Glucose (Fingerstick) 92 mg/dL Current Medications Medications (Trade) Dose Ordered Sig/Richard Route PRN Reason Start Time Stop Time Status Last Admin Dose Admin Acetaminophen (Tylenol) 650 mg PRN Q6HRS PRN PO MILD PAIN / TEMP > 100.3'F 09/27/21 15:00 12/13/21 04:59 Mirtazapine (Remeron) 15 mg QHS PO 09/27/21 21:00 12/16/21 20:02 Olanzapine (ZyPREXA ZYDIS) 2.5 mg PRN Q2HRS PRN PO ANXIETY / AGITATION 09/27/21 15:00 11/27/21 20:14 Quetiapine Fumarate (SEROquel) 25 mg BID PO 09/27/21 21:00 12/16/21 20:02 Sertraline HCl (Zoloft) 50 mg HS PO 09/27/21 21:00 12/16/21 20:02 Trazodone HCl (Desyrel) 25 mg HS PO 09/27/21 21:00 10/05/21 18:14 DC 10/04/21 20:06 Melatonin (Melatonin) 3 mg HS PO 09/27/21 21:00 12/16/21 20:02 Metformin HCl (Glucophage) 500 mg BIDWMEALS PO 09/29/21 17:00 12/16/21 16:53 Nystatin (Nystop) 15 sulma STK-MED ONCE TP 10/04/21 09:36 10/04/21 09:36 DC Trazodone HCl (Desyrel) 50 mg HS PO 10/05/21 21:00 12/16/21 20:02 Trazodone HCl (Desyrel) 50 mg PRN QHS PRN PO INSOMNIA 10/05/21 18:15 12/05/21 20:02 Albuterol/ Ipratropium (Combivent Respimat 20-100 Mcg) 1 puff RTQID INH 10/18/21 20:00 12/16/21 20:03 Azithromycin (Zithromax) 500 mg 1X ONCE PO 10/19/21 16:45 10/19/21 16:46 DC 10/19/21 17:03 Azithromycin (Zithromax) 250 mg DAILY PO 10/20/21 09:00 10/24/21 22:00 DC 10/24/21 08:23 Lactobacillus Rhamnosus (Culturelle) 1 cap BID PO 10/21/21 09:00 11/29/21 16:02 DC 11/29/21 08:10 Diclofenac Sodium (Voltaren) 1 sulma TID TP 10/24/21 14:00 11/07/21 12:35 DC 11/06/21 20:18 Prednisone (Prednisone) 60 mg 1X ONCE PO 10/26/21 11:00 10/26/21 11:01 DC 10/26/21 12:17 Diclofenac Sodium (Voltaren) 1 sulma PRN TID PRN TP MUSCLE PAIN 11/07/21 12:45 12/13/21 04:59 Nystatin (Nystop) 1 sulma BID TP 12/13/21 09:00 12/16/21 20:03 I have reviewed the current psychotropics carefully including drug interactions. Risk benefit ratio favors no change other than as noted in my dictated progress note. Diagnosis: Problems: (1) Impulse control disorder, unspecified (2) Anxiety disorder, unspecified (3) Dementia, vascular, with depression (4) Dementia, vascular, with delusions (5) Dementia in Alzheimer's disease with depression (6) Dementia in Alzheimer's disease with delusions (7) Dementia of the Alzheimer's type with early onset with behavioral disturbance (8) Major neurocognitive disorder SOO BAIRES MD Dec 16, 2021 21:54
[2021-12-17 06:27] VITALS: BP 145/71
[2021-12-17] MEDS: IPRATROPIUM/ALBUTEROL 20/100mcg/INH INHALER. INH SCH ×4 (08:27→20:06)
[2021-12-17] MEDS: metFORMIN 500 MG TABLET PO SCH ×2 (08:27→17:07)
[2021-12-17] MEDS: QUEtiapine 25 MG TABLET. PO SCH ×2 (08:27→20:06)
[2021-12-17] MEDS: NYSTATIN TOPICAL POWDER 15GM BOTTLE. TP SCH ×2 (08:29→20:06)
[2021-12-17] MEDS: DICLOFENAC SODIUM 1% TOPICAL GEL 100GM TUBE. TP PRN (08:58)
[2021-12-17] MEDS: ACETAMINOPHEN 325 MG TABLET PO PRN (08:58)
--- NOTE | 2021-12-17 14:41 | TX PLAN ---
Interdisciplinary Tx Plan Admission Information Sep 27, 2021 at 12:55 Legal Status (on Admission): Voluntary DPOA/Guardian Name: Lucille NieceOscar Bergman Contact Other Contact Name: Jayna Sheikh Contact Verified Code Status: Full Code Allergies: Coded Allergies: No Known Drug Allergies (Unverified , 07/16/21) Diagnoses Primary Diagnosis: 1. 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 Mood disorder, unspecified. Reasons for Admission: Aggressive, Delusions, Agitated, Sig. Change Sleep, Hallucinations, Combative Problem in Patient's Words: Per pt great niece/DPOAАнна who was raised mostly by pt, pt has had a noticable decline over the past year and particularlly over the past couple of months. Up until a year ago, pt was living in her independant living apartment and out of the [place], she moved to [place], [place] and bought a house that she paid winn for. She was then found to be living in very poor conditions without running water and no utilities and overall unable to care for herself. She had a few past hospitalizations but then release to herself and then would be found again living in unsafe conditions. At one point, pt drove herself to Анна's home, but refused to come in to stay, and would only stay in her car. Анна was finally successful at gaining DPOA during one of pt's hospitalizations and also in getting her license revoked. During the past year, family and staff during the different hospitalizations discovered pt was having hallucinations and delusions that seem to continue. Анна is concerned if pt is struggling with onset of dementia or if pt is truly experiencing psychosis and might clear in the future with medication management. Additional Admission Comments: Per intake record, pt refusing UA and cath, sexually inappropriate comments to staff, not sleeping for 30 hours, combative to staff, delusions,auditory hallucinations, verbally aggressive, screaming, cussing, disruptive. Problems Active Problems: Agitation Inactive Problems: Pt has shown improvements. She is less aggressive, delusional, and combative. She, also, is sleeping better. Pt Strengths/Limitations Ability for [place]: Poor Cognitive Functioning/Ability: Poor Communication Skills/Ability: Fair Financial Resources: Fair Insight/Judgement: Poor Intellectual Ability: Fair Physical Health: Poor Social Skills: Fair Stability in Family: Fair Stability in School/Work: Fair Verbal Skills: Fair Discharge Criteria Discharge Criteria: Adequate arrangements @DC, Verbal commit med comply, Improved behavior, Improved mood/thought Other Discharge Comments: None at this time. Preliminary Discharge Plan Preliminary DC Plan: Placement Needed Special Precautions Special Precautions: Agitation/Assault, Swallowing/Choking Fall Risk: High Other Precautions (specify): Pt has a history of falls. Initial D/C Plan Pt will need placement at time of discharge. Identified Discharge Needs: None at this time. Currently Utilized Resources Currently Utilized Resources/P: Great Niece/DPOA-Анна Jj has hired and managing attorney to assist with guardianship. Prior to Admission: PCP-Dr. Quang Raza Facility-[facility]; contact-CHANA Cruz *Note-Pt will not return to [facility] Referrals Community Resources: None known at this time. Identified Problems/Hx/Goals Objectives/Short-Term Goals Short Term Goals: Control abnormal behavior, Dec. Aggression, Dec. Anxiety/Panic, Dec. Hallucination/Delus, Dec. Outbursts, Medication Stabilization, Monitor Med Effects, Prevent Deterioration, Promote Coping Skill Short Term Goals in Patient's: Assist with proper diagnosis of psychosis vs dementia. Interventions/Frequency Staff Interventions/Frequency&: Psychiatry to assess pt three times per week for medication management. Nursing to assess behaviors, monitor medications, and complete 15 minute checks daily. Social work to see pt at least two times weekly to aid in return to placement. Activities to encourage pt to participate in group activities daily. 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 Education: According to DPOA, pt received a high school diploma and she had some technical college. Community Follow-up PCP Community Provider/Family Inpu: Pt great nigregorio/Анна LANG, provided pt history for the development of the treatment plan. Анна is available for further information should it be needed. Treatment Plan Explained Patient/Buoy Tender had this treatment plan explained to him/her as indicated by the signature below and has been given the opportunity to ask questions and make suggestions: Date: Patient/Buoy Tender Signature: Status Update Update Mary Lou continues to eat 90% of her meals and sleeps 7.25 hours each night. She, also, continues to nap throughout the day and mostly enjoys staying in her room. She often noticed signing in the halls and enjoys teasing with the staff. She remains confused and disorganized. She has yelled out a bit more the past couple of days. Therefore she will be checked for a UTI. Pt will at times try to get up on her own to go to bathroom or bed. She is a fall risk and is educated to request help from staff during times that transfers are needed. She will occasionally attend group, but prefers being in her room. Social work questions have been submitted to the legal team so that guardianship can be pursued and ultimately placement. Treatment plan was completed on 12/16/21. LINDA BLACKWELL Dec 17, 2021 14:41
[2021-12-17 15:55] VITALS: BP 125/68
[2021-12-17] MEDS: MELATONIN 3 MG TABLET PO SCH (20:06)
[2021-12-17] MEDS: MIRTAZAPINE 15 MG TABLET PO SCH (20:06)
[2021-12-17] MEDS: traZODone 50 MG TABLET. PO SCH (20:06)
[2021-12-17] MEDS: SERTRALINE 50 MG TABLET. PO SCH (20:06)
--- NOTE | 2021-12-17 21:57 | PDOC ---
Exam Note: [place] Note: Please also refer to the separate dictated note~for this date of service dictated separately.~Patient seen individually. Discussed the patient with Nursing staff reviewed the chart.~Reviewed interim history and current functioning. Reviewed vital signs,~Labs/ Radiology~and current medications noted below. Continue current treatment with the changes noted in the dictated addendum note Assessment: Vital Signs/I&O: Vital Signs Date Time Temp Pulse Resp B/P (MAP) Pulse Ox O2 Delivery O2 Flow Rate FiO2 12/17/21 15:55 97.8 67 19 125/68 (87) 97 12/15/21 06:09 Room Air I & O 12/16/21 12/16/21 12/17/21 15:00 23:00 07:00 Intake Total 480 ml 240 ml Balance 480 ml 240 ml Labs: Laboratory Tests Test 12/17/21 07:24 Glucose (Fingerstick) 111 mg/dL (70-99) H Current Medications: Meds: Laboratory Tests Test 12/17/21 07:24 Glucose (Fingerstick) 111 mg/dL Current Medications Medications (Trade) Dose Ordered Sig/Richard Route PRN Reason Start Time Stop Time Status Last Admin Dose Admin Acetaminophen (Tylenol) 650 mg PRN Q6HRS PRN PO MILD PAIN / TEMP > 100.3'F 09/27/21 15:00 12/17/21 08:58 Mirtazapine (Remeron) 15 mg QHS PO 09/27/21 21:00 12/17/21 20:06 Olanzapine (ZyPREXA ZYDIS) 2.5 mg PRN Q2HRS PRN PO ANXIETY / AGITATION 09/27/21 15:00 11/27/21 20:14 Quetiapine Fumarate (SEROquel) 25 mg BID PO 09/27/21 21:00 12/17/21 20:06 Sertraline HCl (Zoloft) 50 mg HS PO 09/27/21 21:00 12/17/21 20:06 Trazodone HCl (Desyrel) 25 mg HS PO 09/27/21 21:00 10/05/21 18:14 DC 10/04/21 20:06 Melatonin (Melatonin) 3 mg HS PO 09/27/21 21:00 12/17/21 20:06 Metformin HCl (Glucophage) 500 mg BIDWMEALS PO 09/29/21 17:00 12/17/21 17:07 Nystatin (Nystop) 15 sulma STK-MED ONCE TP 10/04/21 09:36 10/04/21 09:36 DC Trazodone HCl (Desyrel) 50 mg HS PO 10/05/21 21:00 12/17/21 20:06 Trazodone HCl (Desyrel) 50 mg PRN QHS PRN PO INSOMNIA 10/05/21 18:15 12/05/21 20:02 Albuterol/ Ipratropium (Combivent Respimat 20-100 Mcg) 1 puff RTQID INH 10/18/21 20:00 12/17/21 20:06 Azithromycin (Zithromax) 500 mg 1X ONCE PO 10/19/21 16:45 10/19/21 16:46 DC 10/19/21 17:03 Azithromycin (Zithromax) 250 mg DAILY PO 10/20/21 09:00 10/24/21 22:00 DC 10/24/21 08:23 Lactobacillus Rhamnosus (Culturelle) 1 cap BID PO 10/21/21 09:00 11/29/21 16:02 DC 11/29/21 08:10 Diclofenac Sodium (Voltaren) 1 sulma TID TP 10/24/21 14:00 11/07/21 12:35 DC 11/06/21 20:18 Prednisone (Prednisone) 60 mg 1X ONCE PO 10/26/21 11:00 10/26/21 11:01 DC 10/26/21 12:17 Diclofenac Sodium (Voltaren) 1 sulma PRN TID PRN TP MUSCLE PAIN 11/07/21 12:45 12/17/21 08:58 Nystatin (Nystop) 1 sulma BID TP 12/13/21 09:00 12/17/21 20:06 I have reviewed the current psychotropics carefully including drug interactions. Risk benefit ratio favors no change other than as noted in my dictated progress note. Diagnosis: Problems: (1) Impulse control disorder, unspecified (2) Anxiety disorder, unspecified (3) Dementia, vascular, with depression (4) Dementia, vascular, with delusions (5) Dementia in Alzheimer's disease with depression (6) Dementia in Alzheimer's disease with delusions (7) Dementia of the Alzheimer's type with early onset with behavioral disturbance (8) Major neurocognitive disorder SOO BAIRES MD Dec 17, 2021 21:57
[2021-12-18 06:22] VITALS: BP 144/52
[2021-12-18 07:07] LABS: BASO # 0.1 x10^3/uL (0.0-0.2); BASO % 1 % (0-3); EOS # 0.3 x10^3/uL (0.0-0.7); EOS % 4 % (0-3); HEMATOCRIT 32.8 % (36.0-47.0); HEMOGLOBIN 10.6 g/dL (12.0-15.5); LYMPH # 2.3 x10^3/uL (1.0-4.8); LYMPH % 36 % (24-48); MEAN CORPUSCULAR HEMOGLOBIN 27 pg (25-35); MEAN CORPUSCULAR HGB CONC 32 g/dL (31-37); MEAN CORPUSCULAR VOLUME 84 fL (79-100); MONO # 0.4 x10^3/uL (0.0-1.1); MONO % 6 % (0-9); NEUT # 3.5 x10^3uL (1.8-7.7); NEUT % 54 % (31-73); PLATELET COUNT 181 x10^3/uL (140-400); RED BLOOD COUNT 3.89 x10^6/uL (3.50-5.40); RED CELL DISTRIBUTION WIDTH 15.3 % (11.5-14.5); WHITE BLOOD COUNT 6.5 x10^3/uL (4.0-11.0)
[2021-12-18 07:26] LABS: ALBUMIN 2.8 g/dL (3.4-5.0); ALBUMIN/GLOBULIN RATIO 0.7 (1.0-1.7); CALCIUM 8.5 mg/dL (8.5-10.1); GFR 52.8; POTASSIUM 4.4 mmol/L (3.5-5.1); TOTAL BILIRUBIN 0.2 mg/dL (0.2-1.0); TOTAL PROTEIN 6.6 g/dL (6.4-8.2)
[2021-12-18] MEDS: NYSTATIN TOPICAL POWDER 15GM BOTTLE. TP SCH ×2 (07:55→20:39)
[2021-12-18] MEDS: IPRATROPIUM/ALBUTEROL 20/100mcg/INH INHALER. INH SCH ×4 (07:55→20:39)
[2021-12-18] MEDS: QUEtiapine 25 MG TABLET. PO SCH ×2 (07:55→20:39)
[2021-12-18] MEDS: metFORMIN 500 MG TABLET PO SCH ×2 (07:55→17:13)
--- NOTE | 2021-12-18 08:29 | PDOC ---
Exam Note: [place] Note: This note is a late entry for 12/16/2021 covers elements not covered in my initial note. Subjective: The patient was reviewed at treatment team meeting individually in the morning on 12/16/2021 with Katherine Moreno and Stephani Curry (social work nurse), Martina, activity therapy, and Honey TANG, discussed and reviewed the chart. The patient slept 6-3/4 hours previous night. I met with her in the dining room in the evening. Appetite 90%. Sleep average 7-1/4 hours. She has had little more anxiety, yelling at night but then redirects when told about it. At times medication resistant, trying to stand up on her own is a fall risk though her yelling is better today. Social service staff discussed how they are trying to facilitate appropriately though her power of business attorney to affect her transition to a nursing facility. Review of Systems: Ambulation impaired, in wheelchair. No CV, , pulmonary, eye system symptoms on review. Mental Status Exam: The patient is oriented to herself and situation. She had finished her supper when I met with her, quite animated, not yelling. Speech is coherent, has some latency. Abstraction fair. Computation impaired. Language function intact. Attention span short. Mood and affect labile, anxious. No suicidal or homicidal ideation. Laboratory Data: Reviewed. Impression: Major neurocognitive disorder Alzheimer, vascular, with delusions, depression, behavioral disturbance. Anxiety disorder unspecified. Impulse control disorder unspecified. Plan: No change from initial note. Reviewed drug interactions, risk-benefit ratio. Assessment: Vital Signs/I&O: Vital Signs Date Time Temp Pulse Resp B/P (MAP) Pulse Ox O2 Delivery O2 Flow Rate FiO2 12/18/21 06:22 97.4 77 18 144/52 (82) 95 12/15/21 06:09 Room Air I & O 12/17/21 12/17/21 12/18/21 14:59 22:59 06:59 Intake Total 827 ml 600 ml Balance 827 ml 600 ml Labs: Laboratory Tests Test 12/17/21 09:50 12/18/21 06:43 12/18/21 07:36 POC SARS CoV-2 Antigen Negative (NEGATIVE) White Blood Count 6.5 x10^3/uL (4.0-11.0) Red Blood Count 3.89 x10^6/uL (3.50-5.40) Hemoglobin 10.6 g/dL (12.0-15.5) L Hematocrit 32.8 % (36.0-47.0) L Mean Corpuscular Volume 84 fL (79-100) Mean Corpuscular Hemoglobin 27 pg (25-35) Mean Corpuscular Hemoglobin Concent 32 g/dL (31-37) Red Cell Distribution Width 15.3 % (11.5-14.5) H Platelet Count 181 x10^3/uL (140-400) Neutrophils (%) (Auto) 54 % (31-73) Lymphocytes (%) (Auto) 36 % (24-48) Monocytes (%) (Auto) 6 % (0-9) Eosinophils (%) (Auto) 4 % (0-3) H Basophils (%) (Auto) 1 % (0-3) Neutrophils # (Auto) 3.5 x10^3uL (1.8-7.7) Lymphocytes # (Auto) 2.3 x10^3/uL (1.0-4.8) Monocytes # (Auto) 0.4 x10^3/uL (0.0-1.1) Eosinophils # (Auto) 0.3 x10^3/uL (0.0-0.7) Basophils # (Auto) 0.1 x10^3/uL (0.0-0.2) Sodium Level 144 mmol/L (136-145) Potassium Level 4.4 mmol/L (3.5-5.1) Chloride Level 109 mmol/L (98-107) H Carbon Dioxide Level 28 mmol/L (21-32) Anion Gap 7 (6-14) Blood Urea Nitrogen 36 mg/dL (7-20) H Creatinine 1.0 mg/dL (0.6-1.0) Estimated GFR (Cockcroft-Gault) 52.8 BUN/Creatinine Ratio 36 (6-20) H Glucose Level 106 mg/dL (70-99) H Calcium Level 8.5 mg/dL (8.5-10.1) Total Bilirubin 0.2 mg/dL (0.2-1.0) Aspartate Amino Transferase (AST) 14 U/L (15-37) L Alanine Aminotransferase (ALT) 21 U/L (14-59) Alkaline Phosphatase 116 U/L (46-116) Total Protein 6.6 g/dL (6.4-8.2) Albumin 2.8 g/dL (3.4-5.0) L Albumin/Globulin Ratio 0.7 (1.0-1.7) L Glucose (Fingerstick) 101 mg/dL (70-99) H Current Medications: I have reviewed the current psychotropics carefully including drug interactions. Risk benefit ratio favors no change other than as noted in my dictated progress note. Diagnosis: Problems: (1) Impulse control disorder, unspecified (2) Anxiety disorder, unspecified (3) Dementia, vascular, with depression (4) Dementia, vascular, with delusions (5) Dementia in Alzheimer's disease with depression (6) Dementia in Alzheimer's disease with delusions (7) Dementia of the Alzheimer's type with early onset with behavioral disturbance (8) Major neurocognitive disorder SOO BAIRES MD Dec 18, 2021 08:29
--- NOTE | 2021-12-18 08:46 | PDOC ---
Exam Note: [place] Note: This note is a late entry for 12/17/2021 covers elements not covered in my initial note. Subjective: The patient was seen individually on 12/17/2021, discussed and reviewed the chart with Honey TANG. The patient slept 6-3/4 hours previous night. Overall she did well last night and during the day today. She is interactive, very pleasant. I met with her in the dining duncan. She in fact called out to me when I was at the other end of the dining room wanting to come and see her. She expressed gratification that she was given lotion for her arm and she felt better. Review of Systems: Ambulation impaired, in wheelchair. No CV, , pulmonary, eye system symptoms on review. Mental Status Exam: The patient is oriented to herself and situation. Speech is coherent, has some latency. Abstraction fair. Computation impaired. Language function intact. Attention span short. Mood and affect labile, anxious. Short-term memory is impaired. No suicidal or homicidal ideation. Laboratory Data: Reviewed. Impression: Major neurocognitive disorder Alzheimer, vascular, with delusions, depression, behavioral disturbance. Anxiety disorder unspecified. Impulse control disorder unspecified. Plan: No change from initial note. Reviewed drug interactions, risk-benefit ratio. Assessment: Vital Signs/I&O: Vital Signs Date Time Temp Pulse Resp B/P (MAP) Pulse Ox O2 Delivery O2 Flow Rate FiO2 12/18/21 06:22 97.4 77 18 144/52 (82) 95 12/15/21 06:09 Room Air I & O 12/17/21 12/17/21 12/18/21 15:00 23:00 07:00 Intake Total 827 ml 600 ml Balance 827 ml 600 ml Labs: Laboratory Tests Test 12/17/21 09:50 12/18/21 06:43 12/18/21 07:36 POC SARS CoV-2 Antigen Negative (NEGATIVE) White Blood Count 6.5 x10^3/uL (4.0-11.0) Red Blood Count 3.89 x10^6/uL (3.50-5.40) Hemoglobin 10.6 g/dL (12.0-15.5) L Hematocrit 32.8 % (36.0-47.0) L Mean Corpuscular Volume 84 fL (79-100) Mean Corpuscular Hemoglobin 27 pg (25-35) Mean Corpuscular Hemoglobin Concent 32 g/dL (31-37) Red Cell Distribution Width 15.3 % (11.5-14.5) H Platelet Count 181 x10^3/uL (140-400) Neutrophils (%) (Auto) 54 % (31-73) Lymphocytes (%) (Auto) 36 % (24-48) Monocytes (%) (Auto) 6 % (0-9) Eosinophils (%) (Auto) 4 % (0-3) H Basophils (%) (Auto) 1 % (0-3) Neutrophils # (Auto) 3.5 x10^3uL (1.8-7.7) Lymphocytes # (Auto) 2.3 x10^3/uL (1.0-4.8) Monocytes # (Auto) 0.4 x10^3/uL (0.0-1.1) Eosinophils # (Auto) 0.3 x10^3/uL (0.0-0.7) Basophils # (Auto) 0.1 x10^3/uL (0.0-0.2) Sodium Level 144 mmol/L (136-145) Potassium Level 4.4 mmol/L (3.5-5.1) Chloride Level 109 mmol/L (98-107) H Carbon Dioxide Level 28 mmol/L (21-32) Anion Gap 7 (6-14) Blood Urea Nitrogen 36 mg/dL (7-20) H Creatinine 1.0 mg/dL (0.6-1.0) Estimated GFR (Cockcroft-Gault) 52.8 BUN/Creatinine Ratio 36 (6-20) H Glucose Level 106 mg/dL (70-99) H Calcium Level 8.5 mg/dL (8.5-10.1) Total Bilirubin 0.2 mg/dL (0.2-1.0) Aspartate Amino Transferase (AST) 14 U/L (15-37) L Alanine Aminotransferase (ALT) 21 U/L (14-59) Alkaline Phosphatase 116 U/L (46-116) Total Protein 6.6 g/dL (6.4-8.2) Albumin 2.8 g/dL (3.4-5.0) L Albumin/Globulin Ratio 0.7 (1.0-1.7) L Glucose (Fingerstick) 101 mg/dL (70-99) H Current Medications: I have reviewed the current psychotropics carefully including drug interactions. Risk benefit ratio favors no change other than as noted in my dictated progress note. Diagnosis: Problems: (1) Impulse control disorder, unspecified (2) Anxiety disorder, unspecified (3) Dementia, vascular, with depression (4) Dementia, vascular, with delusions (5) Dementia in Alzheimer's disease with depression (6) Dementia in Alzheimer's disease with delusions (7) Dementia of the Alzheimer's type with early onset with behavioral distur bance (8) Major neurocognitive disorder SOO BAIRES MD Dec 18, 2021 08:46
[2021-12-18 16:17] VITALS: BP 147/70
[2021-12-18] MEDS: MELATONIN 3 MG TABLET PO SCH (20:39)
[2021-12-18] MEDS: SERTRALINE 50 MG TABLET. PO SCH (20:39)
[2021-12-18] MEDS: MIRTAZAPINE 15 MG TABLET PO SCH (20:39)
[2021-12-18] MEDS: traZODone 50 MG TABLET. PO SCH (20:39)
--- NOTE | 2021-12-18 21:50 | PDOC ---
Exam Note: [place] Note: Please also refer to the separate dictated note~for this date of service dictated separately.~Patient seen individually. Discussed the patient with Nursing staff reviewed the chart.~Reviewed interim history and current functioning. Reviewed vital signs,~Labs/ Radiology~and current medications noted below. Continue current treatment with the changes noted in the dictated addendum note Assessment: Vital Signs/I&O: Vital Signs Date Time Temp Pulse Resp B/P (MAP) Pulse Ox O2 Delivery O2 Flow Rate FiO2 12/18/21 16:17 97.5 91 20 147/70 (95) 93 12/15/21 06:09 Room Air I & O 12/17/21 12/17/21 12/18/21 15:00 23:00 07:00 Intake Total 827 ml 600 ml Balance 827 ml 600 ml Labs: Laboratory Tests Test 12/18/21 06:43 12/18/21 07:36 White Blood Count 6.5 x10^3/uL (4.0-11.0) Red Blood Count 3.89 x10^6/uL (3.50-5.40) Hemoglobin 10.6 g/dL (12.0-15.5) L Hematocrit 32.8 % (36.0-47.0) L Mean Corpuscular Volume 84 fL (79-100) Mean Corpuscular Hemoglobin 27 pg (25-35) Mean Corpuscular Hemoglobin Concent 32 g/dL (31-37) Red Cell Distribution Width 15.3 % (11.5-14.5) H Platelet Count 181 x10^3/uL (140-400) Neutrophils (%) (Auto) 54 % (31-73) Lymphocytes (%) (Auto) 36 % (24-48) Monocytes (%) (Auto) 6 % (0-9) Eosinophils (%) (Auto) 4 % (0-3) H Basophils (%) (Auto) 1 % (0-3) Neutrophils # (Auto) 3.5 x10^3uL (1.8-7.7) Lymphocytes # (Auto) 2.3 x10^3/uL (1.0-4.8) Monocytes # (Auto) 0.4 x10^3/uL (0.0-1.1) Eosinophils # (Auto) 0.3 x10^3/uL (0.0-0.7) Basophils # (Auto) 0.1 x10^3/uL (0.0-0.2) Sodium Level 144 mmol/L (136-145) Potassium Level 4.4 mmol/L (3.5-5.1) Chloride Level 109 mmol/L (98-107) H Carbon Dioxide Level 28 mmol/L (21-32) Anion Gap 7 (6-14) Blood Urea Nitrogen 36 mg/dL (7-20) H Creatinine 1.0 mg/dL (0.6-1.0) Estimated GFR (Cockcroft-Gault) 52.8 BUN/Creatinine Ratio 36 (6-20) H Glucose Level 106 mg/dL (70-99) H Calcium Level 8.5 mg/dL (8.5-10.1) Total Bilirubin 0.2 mg/dL (0.2-1.0) Aspartate Amino Transferase (AST) 14 U/L (15-37) L Alanine Aminotransferase (ALT) 21 U/L (14-59) Alkaline Phosphatase 116 U/L (46-116) Total Protein 6.6 g/dL (6.4-8.2) Albumin 2.8 g/dL (3.4-5.0) L Albumin/Globulin Ratio 0.7 (1.0-1.7) L Glucose (Fingerstick) 101 mg/dL (70-99) H Current Medications: Meds: Laboratory Tests Test 12/18/21 06:43 12/18/21 07:36 White Blood Count 6.5 x10^3/uL Red Blood Count 3.89 x10^6/uL Hemoglobin 10.6 g/dL Hematocrit 32.8 % Mean Corpuscular Volume 84 fL Mean Corpuscular Hemoglobin 27 pg Mean Corpuscular Hemoglobin Concent 32 g/dL Red Cell Distribution Width 15.3 % Platelet Count 181 x10^3/uL Neutrophils (%) (Auto) 54 % Lymphocytes (%) (Auto) 36 % Monocytes (%) (Auto) 6 % Eosinophils (%) (Auto) 4 % Basophils (%) (Auto) 1 % Neutrophils # (Auto) 3.5 x10^3uL Lymphocytes # (Auto) 2.3 x10^3/uL Monocytes # (Auto) 0.4 x10^3/uL Eosinophils # (Auto) 0.3 x10^3/uL Basophils # (Auto) 0.1 x10^3/uL Sodium Level 144 mmol/L Potassium Level 4.4 mmol/L Chloride Level 109 mmol/L Carbon Dioxide Level 28 mmol/L Anion Gap 7 Blood Urea Nitrogen 36 mg/dL Creatinine 1.0 mg/dL Estimated GFR (Cockcroft-Gault) 52.8 BUN/Creatinine Ratio 36 Glucose Level 106 mg/dL Calcium Level 8.5 mg/dL Total Bilirubin 0.2 mg/dL Aspartate Amino Transf (AST/SGOT) 14 U/L Alanine Aminotransferase (ALT/SGPT) 21 U/L Alkaline Phosphatase 116 U/L Total Protein 6.6 g/dL Albumin 2.8 g/dL Albumin/Globulin Ratio 0.7 Glucose (Fingerstick) 101 mg/dL Current Medications Medications (Trade) Dose Ordered Sig/Richard Route PRN Reason Start Time Stop Time Status Last Admin Dose Admin Acetaminophen (Tylenol) 650 mg PRN Q6HRS PRN PO MILD PAIN / TEMP > 100.3'F 09/27/21 15:00 12/17/21 08:58 Mirtazapine (Remeron) 15 mg QHS PO 09/27/21 21:00 12/18/21 20:39 Olanzapine (ZyPREXA ZYDIS) 2.5 mg PRN Q2HRS PRN PO ANXIETY / AGITATION 09/27/21 15:00 11/27/21 20:14 Quetiapine Fumarate (SEROquel) 25 mg BID PO 09/27/21 21:00 12/18/21 20:39 Sertraline HCl (Zoloft) 50 mg HS PO 09/27/21 21:00 12/18/21 20:39 Trazodone HCl (Desyrel) 25 mg HS PO 09/27/21 21:00 10/05/21 18:14 DC 10/04/21 20:06 Melatonin (Melatonin) 3 mg HS PO 09/27/21 21:00 12/18/21 20:39 Metformin HCl (Glucophage) 500 mg BIDWMEALS PO 09/29/21 17:00 12/18/21 17:13 Nystatin (Nystop) 15 sulma STK-MED ONCE TP 10/04/21 09:36 10/04/21 09:36 DC Trazodone HCl (Desyrel) 50 mg HS PO 10/05/21 21:00 12/18/21 20:39 Trazodone HCl (Desyrel) 50 mg PRN QHS PRN PO INSOMNIA 10/05/21 18:15 12/05/21 20:02 Albuterol/ Ipratropium (Combivent Respimat 20-100 Mcg) 1 puff RTQID INH 10/18/21 20:00 12/18/21 20:39 Azithromycin (Zithromax) 500 mg 1X ONCE PO 10/19/21 16:45 10/19/21 16:46 DC 10/19/21 17:03 Azithromycin (Zithromax) 250 mg DAILY PO 10/20/21 09:00 10/24/21 22:00 DC 10/24/21 08:23 Lactobacillus Rhamnosus (Culturelle) 1 cap BID PO 10/21/21 09:00 11/29/21 16:02 DC 11/29/21 08:10 Diclofenac Sodium (Voltaren) 1 sulma TID TP 10/24/21 14:00 11/07/21 12:35 DC 11/06/21 20:18 Prednisone (Prednisone) 60 mg 1X ONCE PO 10/26/21 11:00 10/26/21 11:01 DC 10/26/21 12:17 Diclofenac Sodium (Voltaren) 1 sulma PRN TID PRN TP MUSCLE PAIN 11/07/21 12:45 12/17/21 08:58 Nystatin (Nystop) 1 sulma BID TP 12/13/21 09:00 12/18/21 20:39 I have reviewed the current psychotropics carefully including drug interactions. Risk benefit ratio favors no change other than as noted in my dictated progress note. Diagnosis: Problems: (1) Impulse control disorder, unspecified (2) Anxiety disorder, unspecified (3) Dementia, vascular, with depression (4) Dementia, vascular, with delusions (5) Dementia in Alzheimer's disease with depression (6) Dementia in Alzheimer's disease with delusions (7) Dementia of the Alzheimer's type with early onset with behavioral disturbance (8) Major neurocognitive disorder SOO BAIRES MD Dec 18, 2021 21:50
[2021-12-19 05:58] VITALS: BP 123/62
[2021-12-19] MEDS: metFORMIN 500 MG TABLET PO SCH ×2 (08:10→17:02)
[2021-12-19] MEDS: QUEtiapine 25 MG TABLET. PO SCH ×2 (08:10→20:38)
[2021-12-19] MEDS: IPRATROPIUM/ALBUTEROL 20/100mcg/INH INHALER. INH SCH ×4 (08:11→20:41)
[2021-12-19] MEDS: NYSTATIN TOPICAL POWDER 15GM BOTTLE. TP SCH ×2 (08:11→20:39)
[2021-12-19 16:11] VITALS: BP 121/58
[2021-12-19] MEDS: traZODone 50 MG TABLET. PO SCH (20:38)
[2021-12-19] MEDS: SERTRALINE 50 MG TABLET. PO SCH (20:38)
[2021-12-19] MEDS: MIRTAZAPINE 15 MG TABLET PO SCH (20:38)
[2021-12-19] MEDS: MELATONIN 3 MG TABLET PO SCH (20:38)
--- NOTE | 2021-12-19 22:15 | PDOC ---
Exam Note: [place] Note: Please also refer to the separate dictated note~for this date of service dictated separately.~Patient seen individually. Discussed the patient with Nursing staff reviewed the chart.~Reviewed interim history and current functioning. Reviewed vital signs,~Labs/ Radiology~and current medications noted below. Continue current treatment with the changes noted in the dictated addendum note Assessment: Vital Signs/I&O: Vital Signs Date Time Temp Pulse Resp B/P (MAP) Pulse Ox O2 Delivery O2 Flow Rate FiO2 12/19/21 16:11 97.3 76 20 121/58 (79) 98 12/19/21 05:58 Room Air I & O 12/18/21 12/18/21 12/19/21 15:00 23:00 07:00 Intake Total 720 ml 480 ml Balance 720 ml 480 ml Labs: Laboratory Tests Test 12/19/21 07:29 Glucose (Fingerstick) 103 mg/dL (70-99) H Current Medications: Meds: Laboratory Tests Test 12/19/21 07:29 Glucose (Fingerstick) 103 mg/dL Current Medications Medications (Trade) Dose Ordered Sig/Richard Route PRN Reason Start Time Stop Time Status Last Admin Dose Admin Acetaminophen (Tylenol) 650 mg PRN Q6HRS PRN PO MILD PAIN / TEMP > 100.3'F 09/27/21 15:00 12/17/21 08:58 Mirtazapine (Remeron) 15 mg QHS PO 09/27/21 21:00 12/19/21 20:38 Olanzapine (ZyPREXA ZYDIS) 2.5 mg PRN Q2HRS PRN PO ANXIETY / AGITATION 09/27/21 15:00 11/27/21 20:14 Quetiapine Fumarate (SEROquel) 25 mg BID PO 09/27/21 21:00 12/19/21 20:38 Sertraline HCl (Zoloft) 50 mg HS PO 09/27/21 21:00 12/19/21 20:38 Trazodone HCl (Desyrel) 25 mg HS PO 09/27/21 21:00 10/05/21 18:14 DC 10/04/21 20:06 Melatonin (Melatonin) 3 mg HS PO 09/27/21 21:00 12/19/21 20:38 Metformin HCl (Glucophage) 500 mg BIDWMEALS PO 09/29/21 17:00 12/19/21 17:02 Nystatin (Nystop) 15 sulma STK-MED ONCE TP 10/04/21 09:36 10/04/21 09:36 DC Trazodone HCl (Desyrel) 50 mg HS PO 10/05/21 21:00 12/19/21 20:38 Trazodone HCl (Desyrel) 50 mg PRN QHS PRN PO INSOMNIA 10/05/21 18:15 12/05/21 20:02 Albuterol/ Ipratropium (Combivent Respimat 20-100 Mcg) 1 puff RTQID INH 10/18/21 20:00 12/19/21 20:41 Azithromycin (Zithromax) 500 mg 1X ONCE PO 10/19/21 16:45 10/19/21 16:46 DC 10/19/21 17:03 Azithromycin (Zithromax) 250 mg DAILY PO 10/20/21 09:00 10/24/21 22:00 DC 10/24/21 08:23 Lactobacillus Rhamnosus (Culturelle) 1 cap BID PO 10/21/21 09:00 11/29/21 16:02 DC 11/29/21 08:10 Diclofenac Sodium (Voltaren) 1 sulma TID TP 10/24/21 14:00 11/07/21 12:35 DC 11/06/21 20:18 Prednisone (Prednisone) 60 mg 1X ONCE PO 10/26/21 11:00 10/26/21 11:01 DC 10/26/21 12:17 Diclofenac Sodium (Voltaren) 1 sulma PRN TID PRN TP MUSCLE PAIN 11/07/21 12:45 12/17/21 08:58 Nystatin (Nystop) 1 sulma BID TP 12/13/21 09:00 12/19/21 20:39 I have reviewed the current psychotropics carefully including drug interactions. Risk benefit ratio favors no change other than as noted in my dictated progress note. Diagnosis: Problems: (1) Impulse control disorder, unspecified (2) Anxiety disorder, unspecified (3) Dementia, vascular, with depression (4) Dementia, vascular, with delusions (5) Dementia in Alzheimer's disease with depression (6) Dementia in Alzheimer's disease with delusions (7) Dementia of the Alzheimer's type with early onset with behavioral disturbance (8) Major neurocognitive disorder SOO BAIRES MD Dec 19, 2021 22:15
[2021-12-20 06:06] VITALS: BP 124/72
[2021-12-20] MEDS: IPRATROPIUM/ALBUTEROL 20/100mcg/INH INHALER. INH SCH ×5 (08:22→20:13)
[2021-12-20] MEDS: metFORMIN 500 MG TABLET PO SCH ×2 (08:22→16:45)
[2021-12-20] MEDS: QUEtiapine 25 MG TABLET. PO SCH ×2 (08:22→20:06)
[2021-12-20] MEDS: NYSTATIN TOPICAL POWDER 15GM BOTTLE. TP SCH ×2 (08:57→20:07)
--- NOTE | 2021-12-20 11:49 | PDOC ---
Exam Note: [place] Note: This note is a late entry for 12/18/2021 covers elements not covered in my initial note. Subjective: The patient was seen individually on 12/18/2021, discussed and reviewed the chart with Honey TANG. The patient slept 6-1/4 hours previous night. I met with her in the day room. Review of Systems: Ambulation impaired, in wheelchair. No CV, , pulmonary, eye system symptoms on review. Mental Status Exam: The patient is oriented to herself and situation. She was neatly tucked in her blanket in the wheelchair, very pleasant and has a sense of humor, appropriate, confused. Speech is coherent. Abstraction fair. Computation impaired. Language function intact. Attention span short. Mood and affect labile, anxious. No suicidal or homicidal ideation. Laboratory Data: Reviewed. Impression: Major neurocognitive disorder Alzheimer, vascular, with delusions, depression, behavioral disturbance. Anxiety disorder unspecified. Impulse control disorder unspecified. Plan: No change from initial note. Reviewed drug interactions, risk-benefit ratio. Assessment: Vital Signs/I&O: Vital Signs Date Time Temp Pulse Resp B/P (MAP) Pulse Ox O2 Delivery O2 Flow Rate FiO2 12/20/21 06:06 97.6 71 16 124/72 (89) 97 12/19/21 05:58 Room Air I & O 12/19/21 12/19/21 12/20/21 15:00 23:00 07:00 Intake Total 820 ml 240 ml Balance 820 ml 240 ml Labs: Laboratory Tests Test 12/20/21 07:22 Glucose (Fingerstick) 101 mg/dL (70-99) H Current Medications: I have reviewed the current psychotropics carefully including drug interactions. Risk benefit ratio favors no change other than as noted in my dictated progress note. Diagnosis: Problems: (1) Impulse control disorder, unspecified (2) Anxiety disorder, unspecified (3) Dementia, vascular, with depression (4) Dementia, vascular, with delusions (5) Dementia in Alzheimer's disease with depression (6) Dementia in Alzheimer's disease with delusions (7) Dementia of the Alzheimer's type with early onset with behavioral disturbance (8) Major neurocognitive disorder SOO BAIRES MD Dec 20, 2021 11:49
--- NOTE | 2021-12-20 12:10 | PDOC ---
Exam Note: [place] Note: This note is a late entry for 12/19/2021 covers elements not covered in my initial note. Subjective: The patient was seen individually on 12/19/2021, discussed and reviewed the chart with Chelle TANG. Basically she was the same as I met with her in the TV lounge area. She is interactive, very pleasant. Review of Systems: Ambulation impaired, in wheelchair. No CV, , pulmonary, eye system symptoms on review. Mental Status Exam: The patient is oriented to herself and situation. She was pleasant, smiling, has a sense of humor. Speech is coherent, has some latency. Abstraction fair. Computation impaired. Language function intact. Attention span short. Mood and affect labile, anxious. Short-term memory is impaired. No suicidal or homicidal ideation. Laboratory Data: Reviewed. Impression: Major neurocognitive disorder Alzheimer, vascular, with delusions, depression, behavioral disturbance. Anxiety disorder unspecified. Impulse control disorder unspecified. Plan: No change from initial note. Reviewed drug interactions, risk-benefit ratio. Assessment: Vital Signs/I&O: Vital Signs Date Time Temp Pulse Resp B/P (MAP) Pulse Ox O2 Delivery O2 Flow Rate FiO2 12/20/21 06:06 97.6 71 16 124/72 (89) 97 12/19/21 05:58 Room Air I & O 12/19/21 12/19/21 12/20/21 15:00 23:00 07:00 Intake Total 820 ml 240 ml Balance 820 ml 240 ml Labs: Laboratory Tests Test 12/20/21 07:22 Glucose (Fingerstick) 101 mg/dL (70-99) H Current Medications: I have reviewed the current psychotropics carefully including drug interactions. Risk benefit ratio favors no change other than as noted in my dictated progress note. Diagnosis: Problems: (1) Impulse control disorder, unspecified (2) Anxiety disorder, unspecified (3) Dementia, vascular, with depression (4) Dementia, vascular, with delusions (5) Dementia in Alzheimer's disease with depression (6) Dementia in Alzheimer's disease with delusions (7) Dementia of the Alzheimer's type with early onset with behavioral disturbance (8) Major neurocognitive disorder SOO BAIRES MD Dec 20, 2021 12:10
[2021-12-20 15:49] VITALS: BP 119/71
[2021-12-20] MEDS: ACETAMINOPHEN 325 MG TABLET PO PRN (16:45)
[2021-12-20] MEDS: MIRTAZAPINE 15 MG TABLET PO SCH (20:05)
[2021-12-20] MEDS: SERTRALINE 50 MG TABLET. PO SCH (20:06)
[2021-12-20] MEDS: MELATONIN 3 MG TABLET PO SCH (20:06)
[2021-12-20] MEDS: traZODone 50 MG TABLET. PO SCH (20:06)
--- NOTE | 2021-12-20 21:23 | PDOC ---
Exam Note: [place] Note: Please also refer to the separate dictated note~for this date of service dictated separately.~Patient seen individually. Discussed the patient with Nursing staff reviewed the chart.~Reviewed interim history and current functioning. Reviewed vital signs,~Labs/ Radiology~and current medications noted below. Continue current treatment with the changes noted in the dictated addendum note Assessment: Vital Signs/I&O: Vital Signs Date Time Temp Pulse Resp B/P (MAP) Pulse Ox O2 Delivery O2 Flow Rate FiO2 12/20/21 15:49 97.1 66 18 119/71 (87) 97 12/19/21 05:58 Room Air I & O 12/19/21 12/19/21 12/20/21 15:00 23:00 07:00 Intake Total 820 ml 240 ml Balance 820 ml 240 ml Labs: Laboratory Tests Test 12/20/21 07:22 Glucose (Fingerstick) 101 mg/dL (70-99) H Current Medications: Meds: Laboratory Tests Test 12/20/21 07:22 Glucose (Fingerstick) 101 mg/dL Current Medications Medications (Trade) Dose Ordered Sig/Richard Route PRN Reason Start Time Stop Time Status Last Admin Dose Admin Acetaminophen (Tylenol) 650 mg PRN Q6HRS PRN PO MILD PAIN / TEMP > 100.3'F 09/27/21 15:00 12/20/21 16:45 Mirtazapine (Remeron) 15 mg QHS PO 09/27/21 21:00 12/20/21 20:05 Olanzapine (ZyPREXA ZYDIS) 2.5 mg PRN Q2HRS PRN PO ANXIETY / AGITATION 09/27/21 15:00 11/27/21 20:14 Quetiapine Fumarate (SEROquel) 25 mg BID PO 09/27/21 21:00 12/20/21 20:06 Sertraline HCl (Zoloft) 50 mg HS PO 09/27/21 21:00 12/20/21 20:06 Trazodone HCl (Desyrel) 25 mg HS PO 09/27/21 21:00 10/05/21 18:14 DC 10/04/21 20:06 Melatonin (Melatonin) 3 mg HS PO 09/27/21 21:00 12/20/21 20:06 Metformin HCl (Glucophage) 500 mg BIDWMEALS PO 09/29/21 17:00 12/20/21 16:45 Nystatin (Nystop) 15 sulma STK-MED ONCE TP 10/04/21 09:36 10/04/21 09:36 DC Trazodone HCl (Desyrel) 50 mg HS PO 10/05/21 21:00 12/20/21 20:06 Trazodone HCl (Desyrel) 50 mg PRN QHS PRN PO INSOMNIA 10/05/21 18:15 12/05/21 20:02 Albuterol/ Ipratropium (Combivent Respimat 20-100 Mcg) 1 puff RTQID INH 10/18/21 20:00 12/20/21 20:13 Azithromycin (Zithromax) 500 mg 1X ONCE PO 10/19/21 16:45 10/19/21 16:46 DC 10/19/21 17:03 Azithromycin (Zithromax) 250 mg DAILY PO 10/20/21 09:00 10/24/21 22:00 DC 10/24/21 08:23 Lactobacillus Rhamnosus (Culturelle) 1 cap BID PO 10/21/21 09:00 11/29/21 16:02 DC 11/29/21 08:10 Diclofenac Sodium (Voltaren) 1 sulma TID TP 10/24/21 14:00 11/07/21 12:35 DC 11/06/21 20:18 Prednisone (Prednisone) 60 mg 1X ONCE PO 10/26/21 11:00 10/26/21 11:01 DC 10/26/21 12:17 Diclofenac Sodium (Voltaren) 1 sulma PRN TID PRN TP MUSCLE PAIN 11/07/21 12:45 12/17/21 08:58 Nystatin (Nystop) 1 sulma BID TP 12/13/21 09:00 12/20/21 20:07 I have reviewed the current psychotropics carefully including drug interactions. Risk benefit ratio favors no change other than as noted in my dictated progress note. Diagnosis: Problems: (1) Impulse control disorder, unspecified (2) Anxiety disorder, unspecified (3) Dementia, vascular, with depression (4) Dementia, vascular, with delusions (5) Dementia in Alzheimer's disease with depression (6) Dementia in Alzheimer's disease with delusions (7) Dementia of the Alzheimer's type with early onset with behavioral disturbance (8) Major neurocognitive disorder SOO BAIRES MD Dec 20, 2021 21:23
--- NOTE | 2021-12-21 06:28 | PDOC ---
Exam Note: [place] Note: This note is a late entry for 12/20/2021 covers elements not covered in my initial note. Subjective: The patient was seen individually on 12/20/2021, discussed and reviewed the chart with Desi TANG. The patient slept 7 hours previous night. I met with her in her room. She was trying to move from her wheelchair to the toilet and I encouraged her to wait for the staff to intervene. Review of Systems: Positive for headaches. Impaired ambulation, in wheelchair. No CV, , pulmonary, eye system symptoms on review. Mental Status Exam: The patient is oriented to herself and situation. Speech is coherent. Abstraction fair. Computation impaired. Language function intact. Attention span short. Mood and affect labile, anxious. Short-term memory is impaired. No suicidal or homicidal ideation. Laboratory Data: Reviewed. Impression: Major neurocognitive disorder Alzheimer, vascular, with delusions, depression, behavioral disturbance. Anxiety disorder unspecified. Impulse control disorder unspecified. Plan: No change from initial note. Reviewed drug interactions, risk-benefit ratio. Assessment: Vital Signs/I&O: Vital Signs Date Time Temp Pulse Resp B/P (MAP) Pulse Ox O2 Delivery O2 Flow Rate FiO2 12/20/21 15:49 97.1 66 18 119/71 (87) 97 12/19/21 05:58 Room Air I & O 12/20/21 12/20/21 12/21/21 15:00 23:00 07:00 Intake Total 840 ml 600 ml Balance 840 ml 600 ml Labs: Laboratory Tests Test 12/20/21 07:22 Glucose (Fingerstick) 101 mg/dL (70-99) H Current Medications: I have reviewed the current psychotropics carefully including drug interactions. Risk benefit ratio favors no change other than as noted in my dictated progress note. Diagnosis: Problems: (1) Impulse control disorder, unspecified (2) Anxiety disorder, unspecified (3) Dementia, vascular, with depression (4) Dementia, vascular, with delusions (5) Dementia in Alzheimer's disease with depression (6) Dementia in Alzheimer's disease with delusions (7) Dementia of the Alzheimer's type with early onset with behavioral distu rbance (8) Major neurocognitive disorder SOO BAIRES MD Dec 21, 2021 06:27
[2021-12-21 06:43] VITALS: BP 136/62
[2021-12-21] MEDS: metFORMIN 500 MG TABLET PO SCH ×2 (08:04→17:19)
[2021-12-21] MEDS: NYSTATIN TOPICAL POWDER 15GM BOTTLE. TP SCH ×2 (08:04→20:29)
[2021-12-21] MEDS: QUEtiapine 25 MG TABLET. PO SCH ×2 (08:04→20:28)
[2021-12-21] MEDS: IPRATROPIUM/ALBUTEROL 20/100mcg/INH INHALER. INH SCH ×3 (12:08→20:00)
[2021-12-21 15:59] VITALS: BP 121/67
[2021-12-21] MEDS: MELATONIN 3 MG TABLET PO SCH (20:28)
[2021-12-21] MEDS: SERTRALINE 50 MG TABLET. PO SCH (20:28)
[2021-12-21] MEDS: traZODone 50 MG TABLET. PO SCH (20:28)
[2021-12-21] MEDS: MIRTAZAPINE 15 MG TABLET PO SCH (20:29)
--- NOTE | 2021-12-21 22:23 | PDOC ---
Exam Note: [place] Note: Please also refer to the separate dictated note~for this date of service dictated separately.~Patient seen individually. Discussed the patient with Nursing staff reviewed the chart.~Reviewed interim history and current functioning. Reviewed vital signs,~Labs/ Radiology~and current medications noted below. Continue current treatment with the changes noted in the dictated addendum note Assessment: Vital Signs/I&O: Vital Signs Date Time Temp Pulse Resp B/P (MAP) Pulse Ox O2 Delivery O2 Flow Rate FiO2 12/21/21 15:59 97.3 68 18 121/67 (85) 100 12/19/21 05:58 Room Air I & O 12/20/21 12/20/21 12/21/21 14:59 22:59 06:59 Intake Total 840 ml 600 ml Balance 840 ml 600 ml Current Medications: Meds: Current Medications Medications (Trade) Dose Ordered Sig/Richard Route PRN Reason Start Time Stop Time Status Last Admin Dose Admin Acetaminophen (Tylenol) 650 mg PRN Q6HRS PRN PO MILD PAIN / TEMP > 100.3'F 09/27/21 15:00 12/20/21 16:45 Mirtazapine (Remeron) 15 mg QHS PO 09/27/21 21:00 12/21/21 20:29 Olanzapine (ZyPREXA ZYDIS) 2.5 mg PRN Q2HRS PRN PO ANXIETY / AGITATION 09/27/21 15:00 11/27/21 20:14 Quetiapine Fumarate (SEROquel) 25 mg BID PO 09/27/21 21:00 12/21/21 20:28 Sertraline HCl (Zoloft) 50 mg HS PO 09/27/21 21:00 12/21/21 20:28 Trazodone HCl (Desyrel) 25 mg HS PO 09/27/21 21:00 10/05/21 18:14 DC 10/04/21 20:06 Melatonin (Melatonin) 3 mg HS PO 09/27/21 21:00 12/21/21 20:28 Metformin HCl (Glucophage) 500 mg BIDWMEALS PO 09/29/21 17:00 12/21/21 17:19 Nystatin (Nystop) 15 sulma STK-MED ONCE TP 10/04/21 09:36 10/04/21 09:36 DC Trazodone HCl (Desyrel) 50 mg HS PO 10/05/21 21:00 12/21/21 20:28 Trazodone HCl (Desyrel) 50 mg PRN QHS PRN PO INSOMNIA 10/05/21 18:15 12/05/21 20:02 Albuterol/ Ipratropium (Combivent Respimat 20-100 Mcg) 1 puff RTQID INH 10/18/21 20:00 12/21/21 20:00 Azithromycin (Zithromax) 500 mg 1X ONCE PO 10/19/21 16:45 10/19/21 16:46 DC 10/19/21 17:03 Azithromycin (Zithromax) 250 mg DAILY PO 10/20/21 09:00 10/24/21 22:00 DC 10/24/21 08:23 Lactobacillus Rhamnosus (Culturelle) 1 cap BID PO 10/21/21 09:00 11/29/21 16:02 DC 11/29/21 08:10 Diclofenac Sodium (Voltaren) 1 sulma TID TP 10/24/21 14:00 11/07/21 12:35 DC 11/06/21 20:18 Prednisone (Prednisone) 60 mg 1X ONCE PO 10/26/21 11:00 10/26/21 11:01 DC 10/26/21 12:17 Diclofenac Sodium (Voltaren) 1 sulma PRN TID PRN TP MUSCLE PAIN 11/07/21 12:45 12/17/21 08:58 Nystatin (Nystop) 1 sulma BID TP 12/13/21 09:00 12/21/21 20:29 I have reviewed the current psychotropics carefully including drug interactions. Risk benefit ratio favors no change other than as noted in my dictated progress note. Diagnosis: Problems: (1) Impulse control disorder, unspecified (2) Anxiety disorder, unspecified (3) Dementia, vascular, with depression (4) Dementia, vascular, with delusions (5) Dementia in Alzheimer's disease with depression (6) Dementia in Alzheimer's disease with delusions (7) Dementia of the Alzheimer's type with early onset with behavioral disturbance (8) Major neurocognitive disorder SOO BAIRES MD Dec 21, 2021 22:23
[2021-12-22 06:07] VITALS: BP 139/75
[2021-12-22] MEDS: NYSTATIN TOPICAL POWDER 15GM BOTTLE. TP SCH ×2 (08:38→20:58)
[2021-12-22] MEDS: QUEtiapine 25 MG TABLET. PO SCH ×2 (08:38→20:35)
[2021-12-22] MEDS: IPRATROPIUM/ALBUTEROL 20/100mcg/INH INHALER. INH SCH ×4 (08:38→20:00)
[2021-12-22] MEDS: metFORMIN 500 MG TABLET PO SCH ×2 (08:38→17:28)
[2021-12-22 16:48] VITALS: BP 129/53
[2021-12-22] MEDS: traZODone 50 MG TABLET. PO SCH (20:35)
[2021-12-22] MEDS: SERTRALINE 50 MG TABLET. PO SCH (20:35)
[2021-12-22] MEDS: MELATONIN 3 MG TABLET PO SCH (20:35)
[2021-12-22] MEDS: MIRTAZAPINE 15 MG TABLET PO SCH (20:35)
--- NOTE | 2021-12-22 21:48 | PDOC ---
Exam Note: [place] Note: Please also refer to the separate dictated note~for this date of service dictated separately.~Patient seen individually. Discussed the patient with Nursing staff reviewed the chart.~Reviewed interim history and current functioning. Reviewed vital signs,~Labs/ Radiology~and current medications noted below. Continue current treatment with the changes noted in the dictated addendum note Assessment: Vital Signs/I&O: Vital Signs Date Time Temp Pulse Resp B/P (MAP) Pulse Ox O2 Delivery O2 Flow Rate FiO2 12/22/21 16:48 98.1 82 13 129/53 (78) 94 Room Air I & O 12/21/21 12/21/21 12/22/21 15:00 23:00 07:00 Intake Total 1200 ml 720 ml Balance 1200 ml 720 ml Current Medications: Meds: Current Medications Medications (Trade) Dose Ordered Sig/Richard Route PRN Reason Start Time Stop Time Status Last Admin Dose Admin Acetaminophen (Tylenol) 650 mg PRN Q6HRS PRN PO MILD PAIN / TEMP > 100.3'F 09/27/21 15:00 12/20/21 16:45 Mirtazapine (Remeron) 15 mg QHS PO 09/27/21 21:00 12/22/21 20:35 Olanzapine (ZyPREXA ZYDIS) 2.5 mg PRN Q2HRS PRN PO ANXIETY / AGITATION 09/27/21 15:00 11/27/21 20:14 Quetiapine Fumarate (SEROquel) 25 mg BID PO 09/27/21 21:00 12/22/21 20:35 Sertraline HCl (Zoloft) 50 mg HS PO 09/27/21 21:00 12/22/21 20:35 Trazodone HCl (Desyrel) 25 mg HS PO 09/27/21 21:00 10/05/21 18:14 DC 10/04/21 20:06 Melatonin (Melatonin) 3 mg HS PO 09/27/21 21:00 12/22/21 20:35 Metformin HCl (Glucophage) 500 mg BIDWMEALS PO 09/29/21 17:00 12/22/21 17:28 Nystatin (Nystop) 15 sulma STK-MED ONCE TP 10/04/21 09:36 10/04/21 09:36 DC Trazodone HCl (Desyrel) 50 mg HS PO 10/05/21 21:00 12/22/21 20:35 Trazodone HCl (Desyrel) 50 mg PRN QHS PRN PO INSOMNIA 10/05/21 18:15 12/05/21 20:02 Albuterol/ Ipratropium (Combivent Respimat 20-100 Mcg) 1 puff RTQID INH 10/18/21 20:00 12/22/21 20:00 Azithromycin (Zithromax) 500 mg 1X ONCE PO 10/19/21 16:45 10/19/21 16:46 DC 10/19/21 17:03 Azithromycin (Zithromax) 250 mg DAILY PO 10/20/21 09:00 10/24/21 22:00 DC 10/24/21 08:23 Lactobacillus Rhamnosus (Culturelle) 1 cap BID PO 10/21/21 09:00 11/29/21 16:02 DC 11/29/21 08:10 Diclofenac Sodium (Voltaren) 1 sulma TID TP 10/24/21 14:00 11/07/21 12:35 DC 11/06/21 20:18 Prednisone (Prednisone) 60 mg 1X ONCE PO 10/26/21 11:00 10/26/21 11:01 DC 10/26/21 12:17 Diclofenac Sodium (Voltaren) 1 sulma PRN TID PRN TP MUSCLE PAIN 11/07/21 12:45 12/17/21 08:58 Nystatin (Nystop) 1 sulma BID TP 12/13/21 09:00 12/22/21 20:58 I have reviewed the current psychotropics carefully including drug interactions. Risk benefit ratio favors no change other than as noted in my dictated progress note. Diagnosis: Problems: (1) Impulse control disorder, unspecified (2) Anxiety disorder, unspecified (3) Dementia, vascular, with depression (4) Dementia, vascular, with delusions (5) Dementia in Alzheimer's disease with depression (6) Dementia in Alzheimer's disease with delusions (7) Dementia of the Alzheimer's type with early onset with behavioral disturbance (8) Major neurocognitive disorder SOO BAIRES MD Dec 22, 2021 21:48
[2021-12-23 06:29] VITALS: BP 176/59
--- NOTE | 2021-12-23 08:06 | PDOC ---
Exam Note: [place] Note: This note is a late entry for 12/21/2021 covers elements not covered in my initial note. Subjective: The patient was seen individually on 12/21/2021, discussed and reviewed the chart with Nahomi TANG. The patient slept 7-1/2 hours previous night. I met with her in her room. She remains somewhat anxious but has a sense of humor. Review of Systems: Ambulation impaired, in wheelchair. No CV, , pulmonary, eye system symptoms on review. Mental Status Exam: The patient is oriented to herself and situation. Speech is coherent. Abstraction fair. Computation impaired. Language function intact. Attention span short. Mood and affect remains anxious. Short-term memory is impaired. No suicidal or homicidal ideation. Laboratory Data: Reviewed. Impression: Major neurocognitive disorder Alzheimer, vascular, with delusions, depression, behavioral disturbance. Anxiety disorder unspecified. Impulse control disorder unspecified. Plan: No change from initial note. Reviewed drug interactions, risk-benefit ratio. Assessment: Vital Signs/I&O: Vital Signs Date Time Temp Pulse Resp B/P (MAP) Pulse Ox O2 Delivery O2 Flow Rate FiO2 12/23/21 06:29 98.2 73 18 176/59 (98) 95 12/22/21 16:48 Room Air I & O 12/22/21 12/22/21 12/23/21 15:00 23:00 07:00 Intake Total 200 ml 400 ml 100 ml Balance 200 ml 400 ml 100 ml Current Medications: I have reviewed the current psychotropics carefully including drug interactions. Risk benefit ratio favors no change other than as noted in my dictated progress note. Diagnosis: Problems: (1) Impulse control disorder, unspecified (2) Anxiety disorder, unspecified (3) Dementia, vascular, with depression (4) Dementia, vascular, with delusions (5) Dementia in Alzheimer's disease with depression (6) Dementia in Alzheimer's disease with delusions (7) Dementia of the Alzheimer's type with early onset with behavioral disturbance (8) Major neurocognitive disorder SOO BAIRES MD Dec 23, 2021 08:06
[2021-12-23] MEDS: metFORMIN 500 MG TABLET PO SCH ×2 (08:13→17:22)
[2021-12-23] MEDS: NYSTATIN TOPICAL POWDER 15GM BOTTLE. TP SCH ×2 (08:13→20:21)
[2021-12-23] MEDS: QUEtiapine 25 MG TABLET. PO SCH ×2 (08:13→20:20)
[2021-12-23] MEDS: IPRATROPIUM/ALBUTEROL 20/100mcg/INH INHALER. INH SCH ×4 (08:13→20:21)
--- NOTE | 2021-12-23 08:27 | PDOC ---
Exam Note: [place] Note: This note is a late entry for 12/22/2021 covers elements not covered in my initial note. Subjective: The patient was seen individually on 12/22/2021, discussed and reviewed the chart with Nahomi TANG. The patient slept 8-1/4 hours previous night. I met with her in the TV lounge area. She was complaining of feeling cold. Nursing staff got her an extra cover. Review of Systems: Ambulation impaired, in wheelchair. No CV, , pulmonary, eye system symptoms on review. Mental Status Exam: The patient is oriented to herself and situation. Speech is coherent. Abstraction fair. Computation impaired. Language function intact. Attention span short. Mood and affect reamins anxious. Short-term memory is impaired. No suicidal or homicidal ideation. Laboratory Data: Reviewed. Impression: Major neurocognitive disorder Alzheimer, vascular, with delusions, depression, behavioral disturbance. Anxiety disorder unspecified. Impulse control disorder unspecified. Plan: No change from initial note. Reviewed drug interactions, risk-benefit ratio. Assessment: Vital Signs/I&O: Vital Signs Date Time Temp Pulse Resp B/P (MAP) Pulse Ox O2 Delivery O2 Flow Rate FiO2 12/23/21 06:29 98.2 73 18 176/59 (98) 95 12/22/21 16:48 Room Air I & O 12/22/21 12/22/21 12/23/21 15:00 23:00 07:00 Intake Total 200 ml 400 ml 100 ml Balance 200 ml 400 ml 100 ml Current Medications: I have reviewed the current psychotropics carefully including drug interactions. Risk benefit ratio favors no change other than as noted in my dictated progress note. Diagnosis: Problems: (1) Impulse control disorder, unspecified (2) Anxiety disorder, unspecified (3) Dementia, vascular, with depression (4) Dementia, vascular, with delusions (5) Dementia in Alzheimer's disease with depression (6) Dementia in Alzheimer's disease with delusions (7) Dementia of the Alzheimer's type with early onset with behavioral disturbance (8) Major neurocognitive disorder SOO BAIRES MD Dec 23, 2021 08:27
--- NOTE | 2021-12-23 13:04 | TX PLAN ---
Interdisciplinary Tx Plan Admission Information Sep 27, 2021 at 12:55 Legal Status (on Admission): Voluntary DPOA/Guardian Name: Lucille NieceOscar Bergman Contact Other Contact Name: Jayna Sheikh Contact Verified Code Status: Full Code Allergies: Coded Allergies: No Known Drug Allergies (Unverified , 07/16/21) Diagnoses Primary Diagnosis: 1. 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 Mood disorder, unspecified. Reasons for Admission: Aggressive, Delusions, Agitated, Sig. Change Sleep, Hallucinations, Combative Problem in Patient's Words: Per pt great niece/DPOAАнна who was raised mostly by pt, pt has had a noticable decline over the past year and particularlly over the past couple of months. Up until a year ago, pt was living in her independant living apartment and out of the [place], she moved to [place], [place] and bought a house that she paid winn for. She was then found to be living in very poor conditions without running water and no utilities and overall unable to care for herself. She had a few past hospitalizations but then release to herself and then would be found again living in unsafe conditions. At one point, pt drove herself to Анна's home, but refused to come in to stay, and would only stay in her car. Анна was finally successful at gaining DPOA during one of pt's hospitalizations and also in getting her license revoked. During the past year, family and staff during the different hospitalizations discovered pt was having hallucinations and delusions that seem to continue. Анна is concerned if pt is struggling with onset of dementia or if pt is truly experiencing psychosis and might clear in the future with medication management. Additional Admission Comments: Per intake record, pt refusing UA and cath, sexually inappropriate comments to staff, not sleeping for 30 hours, combative to staff, delusions,auditory hallucinations, verbally aggressive, screaming, cussing, disruptive. Problems Active Problems: Agitation Inactive Problems: Pt has shown improvements. She is less aggressive, delusional, and combative. She, also, is sleeping better. Pt Strengths/Limitations Ability for [place]: Poor Cognitive Functioning/Ability: Poor Communication Skills/Ability: Fair Financial Resources: Fair Insight/Judgement: Poor Intellectual Ability: Fair Physical Health: Poor Social Skills: Fair Stability in Family: Fair Stability in School/Work: Fair Verbal Skills: Fair Discharge Criteria Discharge Criteria: Adequate arrangements @DC, Verbal commit med comply, Improved behavior, Improved mood/thought Other Discharge Comments: None at this time. Preliminary Discharge Plan Preliminary DC Plan: Placement Needed Special Precautions Special Precautions: Agitation/Assault, Swallowing/Choking Fall Risk: High Other Precautions (specify): Pt has a history of falls. Initial D/C Plan Pt will need placement at time of discharge. Identified Discharge Needs: None at this time. Currently Utilized Resources Currently Utilized Resources/P: Great Niece/DPOA-Анна Jj has hired and patent attorney to assist with guardianship. Prior to Admission: PCP-Dr. Quang Raza Facility-[facility]; contact-CHANA Cruz *Note-Pt will not return to [facility] Referrals Community Resources: None known at this time. Identified Problems/Hx/Goals Objectives/Short-Term Goals Short Term Goals: Control abnormal behavior, Dec. Aggression, Dec. Anxiety/Panic, Dec. Hallucination/Delus, Dec. Outbursts, Medication Stabilization, Monitor Med Effects, Prevent Deterioration, Promote Coping Skill Short Term Goals in Patient's: Assist with proper diagnosis of psychosis vs dementia. Interventions/Frequency Staff Interventions/Frequency&: Psychiatry to assess pt three times per week for medication management. Nursing to assess behaviors, monitor medications, and complete 15 minute checks daily. Social work to see pt at least two times weekly to aid in return to placement. Activities to encourage pt to participate in group activities daily. 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 Education: According to DPOA, pt received a high school diploma and she had some technical college. Community Follow-up PCP Community Provider/Family Inpu: Pt great nigregorio/Анна LANG, provided pt history for the development of the treatment plan. Анна is available for further information should it be needed. Treatment Plan Explained Patient/Software Validation Technician had this treatment plan explained to him/her as indicated by the signature below and has been given the opportunity to ask questions and make suggestions: Date: Patient/Software Validation Technician Signature: Status Update Update Pt has been eating 90% of her meals and sleeping an average of 7 hours at night. Pt prefers to nap following meals and ultimately gets more sleep than the 7 hours. She has been pleasant on the unit but remains confused to place, time, and situation. She does like to tease with staff and gets along well with most patients. She has attended four groups over the past week and engaged in some brain games. 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 Pt often c/o being cold; therefore, gabapentin 100mg daily with evening meal will be tried as she is also a diabetic. Legal team is working toward guardianship so that placement can ultimately be pursued. LINDA BLACKWELL Dec 23, 2021 13:04
[2021-12-23 15:47] VITALS: BP 124/77
[2021-12-23] MEDS: GABAPENTIN 100 MG CAPSULE. PO SCH (17:22)
[2021-12-23] MEDS: traZODone 50 MG TABLET. PO SCH (20:20)
[2021-12-23] MEDS: MIRTAZAPINE 15 MG TABLET PO SCH (20:20)
[2021-12-23] MEDS: MELATONIN 3 MG TABLET PO SCH (20:20)
[2021-12-23] MEDS: SERTRALINE 50 MG TABLET. PO SCH (20:20)
--- NOTE | 2021-12-23 21:49 | PDOC ---
Exam Note: [place] Note: Please also refer to the separate dictated note~for this date of service dictated separately.~Patient seen individually. Discussed the patient with Nursing staff reviewed the chart.~Reviewed interim history and current functioning. Reviewed vital signs,~Labs/ Radiology~and current medications noted below. Continue current treatment with the changes noted in the dictated addendum note Assessment: Vital Signs/I&O: Vital Signs Date Time Temp Pulse Resp B/P (MAP) Pulse Ox O2 Delivery O2 Flow Rate FiO2 12/23/21 15:47 98.2 66 18 124/77 (93) 98 12/22/21 16:48 Room Air I & O 12/22/21 12/22/21 12/23/21 14:59 22:59 06:59 Intake Total 200 ml 400 ml 100 ml Balance 200 ml 400 ml 100 ml Current Medications: Meds: Current Medications Medications (Trade) Dose Ordered Sig/Richard Route PRN Reason Start Time Stop Time Status Last Admin Dose Admin Acetaminophen (Tylenol) 650 mg PRN Q6HRS PRN PO MILD PAIN / TEMP > 100.3'F 09/27/21 15:00 12/20/21 16:45 Mirtazapine (Remeron) 15 mg QHS PO 09/27/21 21:00 12/23/21 20:20 Olanzapine (ZyPREXA ZYDIS) 2.5 mg PRN Q2HRS PRN PO ANXIETY / AGITATION 09/27/21 15:00 11/27/21 20:14 Quetiapine Fumarate (SEROquel) 25 mg BID PO 09/27/21 21:00 12/23/21 20:20 Sertraline HCl (Zoloft) 50 mg HS PO 09/27/21 21:00 12/23/21 20:20 Trazodone HCl (Desyrel) 25 mg HS PO 09/27/21 21:00 10/05/21 18:14 DC 10/04/21 20:06 Melatonin (Melatonin) 3 mg HS PO 09/27/21 21:00 12/23/21 20:20 Metformin HCl (Glucophage) 500 mg BIDWMEALS PO 09/29/21 17:00 12/23/21 17:22 Nystatin (Nystop) 15 sulma STK-MED ONCE TP 10/04/21 09:36 10/04/21 09:36 DC Trazodone HCl (Desyrel) 50 mg HS PO 10/05/21 21:00 12/23/21 20:20 Trazodone HCl (Desyrel) 50 mg PRN QHS PRN PO INSOMNIA 10/05/21 18:15 12/05/21 20:02 Albuterol/ Ipratropium (Combivent Respimat 20-100 Mcg) 1 puff RTQID INH 10/18/21 20:00 12/23/21 20:21 Azithromycin (Zithromax) 500 mg 1X ONCE PO 10/19/21 16:45 10/19/21 16:46 DC 10/19/21 17:03 Azithromycin (Zithromax) 250 mg DAILY PO 10/20/21 09:00 10/24/21 22:00 DC 10/24/21 08:23 Lactobacillus Rhamnosus (Culturelle) 1 cap BID PO 10/21/21 09:00 11/29/21 16:02 DC 11/29/21 08:10 Diclofenac Sodium (Voltaren) 1 sulma TID TP 10/24/21 14:00 11/07/21 12:35 DC 11/06/21 20:18 Prednisone (Prednisone) 60 mg 1X ONCE PO 10/26/21 11:00 10/26/21 11:01 DC 10/26/21 12:17 Diclofenac Sodium (Voltaren) 1 sulma PRN TID PRN TP MUSCLE PAIN 11/07/21 12:45 12/17/21 08:58 Nystatin (Nystop) 1 sulma BID TP 12/13/21 09:00 12/23/21 20:21 Gabapentin (Neurontin) 100 mg DAILYWSUP PO 12/23/21 17:00 12/23/21 17:22 Current Medications Medications (Trade) Dose Ordered Sig/Richard Route PRN Reason Start Time Stop Time Status Last Admin Dose Admin Gabapentin (Neurontin) 100 mg DAILYWSUP PO 12/23/21 17:00 12/23/21 17:22 I have reviewed the current psychotropics carefully including drug interactions. Risk benefit ratio favors no change other than as noted in my dictated progress note. 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
[2021-12-24 06:05] LABS: BASO % 1 % (0-3); EOS # 0.3 x10^3/uL (0.0-0.7); EOS % 5 % (0-3); HEMATOCRIT 32.2 % (36.0-47.0); HEMOGLOBIN 10.5 g/dL (12.0-15.5); LYMPH # 2.5 x10^3/uL (1.0-4.8); LYMPH % 36 % (24-48); MEAN CORPUSCULAR HEMOGLOBIN 27 pg (25-35); MEAN CORPUSCULAR HGB CONC 33 g/dL (31-37); MEAN CORPUSCULAR VOLUME 84 fL (79-100); MONO # 0.5 x10^3/uL (0.0-1.1); MONO % 7 % (0-9); NEUT # 3.7 x10^3uL (1.8-7.7); NEUT % 53 % (31-73); PLATELET COUNT 202 x10^3/uL (140-400); RED BLOOD COUNT 3.82 x10^6/uL (3.50-5.40); RED CELL DISTRIBUTION WIDTH 15.2 % (11.5-14.5); WHITE BLOOD COUNT 6.9 x10^3/uL (4.0-11.0)
[2021-12-24 06:18] LABS: ALBUMIN 2.9 g/dL (3.4-5.0); ALBUMIN/GLOBULIN RATIO 0.8 (1.0-1.7); CALCIUM 8.8 mg/dL (8.5-10.1); CREATININE 0.9 mg/dL (0.6-1.0); GFR 59.7; TOTAL BILIRUBIN 0.2 mg/dL (0.2-1.0); TOTAL PROTEIN 6.6 g/dL (6.4-8.2)
[2021-12-24 06:19] VITALS: BP 140/66
[2021-12-24 06:31] LABS: POTASSIUM 4.4 mmol/L (3.5-5.1)
[2021-12-24] MEDS: metFORMIN 500 MG TABLET PO SCH ×2 (08:08→17:32)
[2021-12-24] MEDS: QUEtiapine 25 MG TABLET. PO SCH ×2 (08:08→20:02)
[2021-12-24] MEDS: IPRATROPIUM/ALBUTEROL 20/100mcg/INH INHALER. INH SCH ×4 (08:09→20:05)
[2021-12-24] MEDS: NYSTATIN TOPICAL POWDER 15GM BOTTLE. TP SCH ×2 (08:09→20:03)
--- NOTE | 2021-12-24 08:25 | PDOC ---
Exam Note: [place] Note: This note is a late entry for 12/23/2021 covers elements not covered in my initial note. Subjective: The patient was reviewed at treatment team meeting individually in the morning on 12/23/2021 with Katherine Moreno, Eliza Muniz, and Stephani Curry (social service technician), Martina, activity therapy, and Liya TANG, discussed and reviewed the chart. The patient slept 5-3/4 hours previous night. She was rice yesterday, attended 4 groups in the past week including brain games with encouragement. Yelling is much improved. I met with her in the evening after she had finished her supper. Review of Systems: Ambulation impaired, in wheelchair. No CV, , pulmonary, eye system symptoms on review. She complains of feeling cold. Reliability poor. Mental Status Exam: The patient is oriented to herself and at times situation. Speech has some latency, coherent. Abstraction fair. Computation impaired. Language function intact. Attention span short. Mood and affect is improved. She still complains of dry skin but is getting lotion for this. She also complains of some symptoms suggestive of peripheral neuropathy and perhaps due to diabetes, we will start gabapentin 100 mg in the evening. No suicidal or homicidal ideation. Laboratory Data: Reviewed. Impression: Major neurocognitive disorder Alzheimer, vascular, with delusions, depression, behavioral disturbance. Anxiety disorder unspecified. Impulse control disorder unspecified. Plan: No change from initial note. Reviewed drug interactions, risk-benefit ratio. Add gabapentin as noted. The patients hospitalization has been rather lengthy because nursing homes would not accept her without legal guardianship and this is being pursued actively by social service staff. We will make further adjustments as clinically indicated. Assessment: Vital Signs/I&O: Vital Signs Date Time Temp Pulse Resp B/P (MAP) Pulse Ox O2 Delivery O2 Flow Rate FiO2 12/24/21 06:19 97.7 67 18 140/66 (90) 99 Room Air I & O 12/23/21 12/23/21 12/24/21 14:59 22:59 06:59 Intake Total 720 ml 460 ml Balance 720 ml 460 ml Labs: Laboratory Tests Test 12/24/21 05:50 White Blood Count 6.9 x10^3/uL (4.0-11.0) Red Blood Count 3.82 x10^6/uL (3.50-5.40) Hemoglobin 10.5 g/dL (12.0-15.5) L Hematocrit 32.2 % (36.0-47.0) L Mean Corpuscular Volume 84 fL (79-100) Mean Corpuscular Hemoglobin 27 pg (25-35) Mean Corpuscular Hemoglobin Concent 33 g/dL (31-37) Red Cell Distribution Width 15.2 % (11.5-14.5) H Platelet Count 202 x10^3/uL (140-400) Neutrophils (%) (Auto) 53 % (31-73) Lymphocytes (%) (Auto) 36 % (24-48) Monocytes (%) (Auto) 7 % (0-9) Eosinophils (%) (Auto) 5 % (0-3) H Basophils (%) (Auto) 1 % (0-3) Neutrophils # (Auto) 3.7 x10^3uL (1.8-7.7) Lymphocytes # (Auto) 2.5 x10^3/uL (1.0-4.8) Monocytes # (Auto) 0.5 x10^3/uL (0.0-1.1) Eosinophils # (Auto) 0.3 x10^3/uL (0.0-0.7) Basophils # (Auto) 0.0 x10^3/uL (0.0-0.2) Sodium Level 143 mmol/L (136-145) Potassium Level 4.4 mmol/L (3.5-5.1) Chloride Level 107 mmol/L (98-107) Carbon Dioxide Level 30 mmol/L (21-32) Anion Gap 6 (6-14) Blood Urea Nitrogen 30 mg/dL (7-20) H Creatinine 0.9 mg/dL (0.6-1.0) Estimated GFR (Cockcroft-Gault) 59.7 BUN/Creatinine Ratio 33 (6-20) H Glucose Level 107 mg/dL (70-99) H Calcium Level 8.8 mg/dL (8.5-10.1) Total Bilirubin 0.2 mg/dL (0.2-1.0) Aspartate Amino Transferase (AST) 15 U/L (15-37) Alanine Aminotransferase (ALT) 17 U/L (14-59) Alkaline Phosphatase 109 U/L (46-116) Total Protein 6.6 g/dL (6.4-8.2) Albumin 2.9 g/dL (3.4-5.0) L Albumin/Globulin Ratio 0.8 (1.0-1.7) L Current Medications: Meds: Current Medications Medications (Trade) Dose Ordered Sig/Richard Route PRN Reason Start Time Stop Time Status Last Admin Dose Admin Gabapentin (Neurontin) 100 mg DAILYWSUP PO 12/23/21 17:00 12/23/21 17:22 I have reviewed the current psychotropics carefully including drug interactions. Risk benefit ratio favors no change other than as noted in my dictated progress note. Diagnosis: Problems: (1) Impulse control disorder, unspecified (2) Anxiety disorder, unspecified (3) Dementia, vascular, with depression (4) Dementia, vascular, with delusions (5) Dementia in Alzheimer's disease with depression (6) Dementia in Alzheimer's disease with delusions (7) Dementia of the Alzheimer's type with early onset with behavioral disturbance (8) Major neurocognitive disorder SOO BAIRES MD Dec 24, 2021 08:25
[2021-12-24 16:04] VITALS: BP 138/69
[2021-12-24] MEDS: GABAPENTIN 100 MG CAPSULE. PO SCH (17:32)
[2021-12-24] MEDS: traZODone 50 MG TABLET. PO SCH (20:01)
[2021-12-24] MEDS: MELATONIN 3 MG TABLET PO SCH (20:02)
[2021-12-24] MEDS: SERTRALINE 50 MG TABLET. PO SCH (20:02)
[2021-12-24] MEDS: MIRTAZAPINE 15 MG TABLET PO SCH (20:02)
--- NOTE | 2021-12-24 21:30 | PDOC ---
Exam Note: [place] Note: Please also refer to the separate dictated note~for this date of service dictated separately.~Patient seen individually. Discussed the patient with Nursing staff reviewed the chart.~Reviewed interim history and current functioning. Reviewed vital signs,~Labs/ Radiology~and current medications noted below. Continue current treatment with the changes noted in the dictated addendum note Assessment: Vital Signs/I&O: Vital Signs Date Time Temp Pulse Resp B/P (MAP) Pulse Ox O2 Delivery O2 Flow Rate FiO2 12/24/21 16:04 97.6 70 18 138/69 (92) 96 12/24/21 06:19 Room Air I & O 12/23/21 12/23/21 12/24/21 15:00 23:00 07:00 Intake Total 720 ml 460 ml Balance 720 ml 460 ml Labs: Laboratory Tests Test 12/24/21 05:50 12/24/21 07:45 White Blood Count 6.9 x10^3/uL (4.0-11.0) Red Blood Count 3.82 x10^6/uL (3.50-5.40) Hemoglobin 10.5 g/dL (12.0-15.5) L Hematocrit 32.2 % (36.0-47.0) L Mean Corpuscular Volume 84 fL (79-100) Mean Corpuscular Hemoglobin 27 pg (25-35) Mean Corpuscular Hemoglobin Concent 33 g/dL (31-37) Red Cell Distribution Width 15.2 % (11.5-14.5) H Platelet Count 202 x10^3/uL (140-400) Neutrophils (%) (Auto) 53 % (31-73) Lymphocytes (%) (Auto) 36 % (24-48) Monocytes (%) (Auto) 7 % (0-9) Eosinophils (%) (Auto) 5 % (0-3) H Basophils (%) (Auto) 1 % (0-3) Neutrophils # (Auto) 3.7 x10^3uL (1.8-7.7) Lymphocytes # (Auto) 2.5 x10^3/uL (1.0-4.8) Monocytes # (Auto) 0.5 x10^3/uL (0.0-1.1) Eosinophils # (Auto) 0.3 x10^3/uL (0.0-0.7) Basophils # (Auto) 0.0 x10^3/uL (0.0-0.2) Sodium Level 143 mmol/L (136-145) Potassium Level 4.4 mmol/L (3.5-5.1) Chloride Level 107 mmol/L (98-107) Carbon Dioxide Level 30 mmol/L (21-32) Anion Gap 6 (6-14) Blood Urea Nitrogen 30 mg/dL (7-20) H Creatinine 0.9 mg/dL (0.6-1.0) Estimated GFR (Cockcroft-Gault) 59.7 BUN/Creatinine Ratio 33 (6-20) H Glucose Level 107 mg/dL (70-99) H Calcium Level 8.8 mg/dL (8.5-10.1) Total Bilirubin 0.2 mg/dL (0.2-1.0) Aspartate Amino Transferase (AST) 15 U/L (15-37) Alanine Aminotransferase (ALT) 17 U/L (14-59) Alkaline Phosphatase 109 U/L (46-116) Total Protein 6.6 g/dL (6.4-8.2) Albumin 2.9 g/dL (3.4-5.0) L Albumin/Globulin Ratio 0.8 (1.0-1.7) L POC SARS CoV-2 Antigen Negative (NEGATIVE) Current Medications: Meds: Laboratory Tests Test 12/24/21 05:50 12/24/21 07:45 White Blood Count 6.9 x10^3/uL Red Blood Count 3.82 x10^6/uL Hemoglobin 10.5 g/dL Hematocrit 32.2 % Mean Corpuscular Volume 84 fL Mean Corpuscular Hemoglobin 27 pg Mean Corpuscular Hemoglobin Concent 33 g/dL Red Cell Distribution Width 15.2 % Platelet Count 202 x10^3/uL Neutrophils (%) (Auto) 53 % Lymphocytes (%) (Auto) 36 % Monocytes (%) (Auto) 7 % Eosinophils (%) (Auto) 5 % Basophils (%) (Auto) 1 % Neutrophils # (Auto) 3.7 x10^3uL Lymphocytes # (Auto) 2.5 x10^3/uL Monocytes # (Auto) 0.5 x10^3/uL Eosinophils # (Auto) 0.3 x10^3/uL Basophils # (Auto) 0.0 x10^3/uL Sodium Level 143 mmol/L Potassium Level 4.4 mmol/L Chloride Level 107 mmol/L Carbon Dioxide Level 30 mmol/L Anion Gap 6 Blood Urea Nitrogen 30 mg/dL Creatinine 0.9 mg/dL Estimated GFR (Cockcroft-Gault) 59.7 BUN/Creatinine Ratio 33 Glucose Level 107 mg/dL Calcium Level 8.8 mg/dL Total Bilirubin 0.2 mg/dL Aspartate Amino Transf (AST/SGOT) 15 U/L Alanine Aminotransferase (ALT/SGPT) 17 U/L Alkaline Phosphatase 109 U/L Total Protein 6.6 g/dL Albumin 2.9 g/dL Albumin/Globulin Ratio 0.8 POC SARS CoV-2 Antigen Negative Current Medications Medications (Trade) Dose Ordered Sig/Richard Route PRN Reason Start Time Stop Time Status Last Admin Dose Admin Acetaminophen (Tylenol) 650 mg PRN Q6HRS PRN PO MILD PAIN / TEMP > 100.3'F 09/27/21 15:00 12/20/21 16:45 Mirtazapine (Remeron) 15 mg QHS PO 09/27/21 21:00 12/24/21 20:02 Olanzapine (ZyPREXA ZYDIS) 2.5 mg PRN Q2HRS PRN PO ANXIETY / AGITATION 09/27/21 15:00 11/27/21 20:14 Quetiapine Fumarate (SEROquel) 25 mg BID PO 09/27/21 21:00 12/24/21 20:02 Sertraline HCl (Zoloft) 50 mg HS PO 09/27/21 21:00 12/24/21 20:02 Trazodone HCl (Desyrel) 25 mg HS PO 09/27/21 21:00 10/05/21 18:14 DC 10/04/21 20:06 Melatonin (Melatonin) 3 mg HS PO 09/27/21 21:00 12/24/21 20:02 Metformin HCl (Glucophage) 500 mg BIDWMEALS PO 09/29/21 17:00 12/24/21 17:32 Nystatin (Nystop) 15 sulma STK-MED ONCE TP 10/04/21 09:36 10/04/21 09:36 DC Trazodone HCl (Desyrel) 50 mg HS PO 10/05/21 21:00 12/24/21 20:01 Trazodone HCl (Desyrel) 50 mg PRN QHS PRN PO INSOMNIA 10/05/21 18:15 12/05/21 20:02 Albuterol/ Ipratropium (Combivent Respimat 20-100 Mcg) 1 puff RTQID INH 10/18/21 20:00 12/24/21 20:05 Azithromycin (Zithromax) 500 mg 1X ONCE PO 10/19/21 16:45 10/19/21 16:46 DC 10/19/21 17:03 Azithromycin (Zithromax) 250 mg DAILY PO 10/20/21 09:00 10/24/21 22:00 DC 10/24/21 08:23 Lactobacillus Rhamnosus (Culturelle) 1 cap BID PO 10/21/21 09:00 11/29/21 16:02 DC 11/29/21 08:10 Diclofenac Sodium (Voltaren) 1 sulma TID TP 10/24/21 14:00 11/07/21 12:35 DC 11/06/21 20:18 Prednisone (Prednisone) 60 mg 1X ONCE PO 10/26/21 11:00 10/26/21 11:01 DC 10/26/21 12:17 Diclofenac Sodium (Voltaren) 1 sulma PRN TID PRN TP MUSCLE PAIN 11/07/21 12:45 12/17/21 08:58 Nystatin (Nystop) 1 sulma BID TP 12/13/21 09:00 12/24/21 20:03 Gabapentin (Neurontin) 100 mg DAILYWSUP PO 12/23/21 17:00 12/24/21 17:32 I have reviewed the current psychotropics carefully including drug interactions. Risk benefit ratio favors no change other than as noted in my dictated progress note. Diagnosis: Problems: (1) Impulse control disorder, unspecified (2) Anxiety disorder, unspecified (3) Dementia, vascular, with depression (4) Dementia, vascular, with delusions (5) Dementia in Alzheimer's disease with depression (6) Dementia in Alzheimer's disease with delusions (7) Dementia of the Alzheimer's type with early onset with behavioral disturbance (8) Major neurocognitive disorder SOO BAIRES MD Dec 24, 2021 21:30
[2021-12-25 05:57] VITALS: BP 110/65
--- NOTE | 2021-12-25 08:37 | PDOC ---
Exam Note: [place] Note: This note is a late entry for 12/24/2021 covers elements not covered in my initial note. Subjective: The patient was seen individually on 12/24/2021, discussed and reviewed the chart with Liya TANG. The patient slept 6-1/2 hours previous night. Overall she is doing about the same. I met with her after her supper. She became tearful after lunch because she wanted to lie down and rest but she had to be in group activities. She was unable to remember this as I questioned her this evening. Review of Systems: Ambulation impaired, in wheelchair. No CV, , pulmonary, eye system symptoms on review. She complains of dry skin and feeling cold, had an extra cover on her. Mental Status Exam: The patient is oriented to herself and at times situation. She is quite animated, verbal, appropriate and after supper was wheeling herself back to her room in her wheelchair. Speech has some latency, coherent. Abstraction fair. Computation impaired. Language function intact. Attention span short. Mood and affect is improved. Laboratory Data: Reviewed. Impression: Major neurocognitive disorder Alzheimer, vascular, with delusions, depression, behavioral disturbance. Anxiety disorder unspecified. Impulse control disorder unspecified. Plan: No change from initial note. Reviewed drug interactions, risk-benefit ratio. Assessment: Vital Signs/I&O: Vital Signs Date Time Temp Pulse Resp B/P (MAP) Pulse Ox O2 Delivery O2 Flow Rate FiO2 12/25/21 05:57 98.0 72 18 110/65 (80) 94 Room Air I & O0 12/24/21 12/24/21 12/25/21 15:00 23:00 07:00 Intake Total 920 ml 580 ml Balance 920 ml 580 ml Current Medications: I have reviewed the current psychotropics carefully including drug interactions. Risk benefit ratio favors no change other than as noted in my dictated progress note. Diagnosis: Problems: (1) Impulse control disorder, unspecified (2) Anxiety disorder, unspecified (3) Dementia, vascular, with depression (4) Dementia, vascular, with delusions (5) Dementia in Alzheimer's disease with depression (6) Dementia in Alzheimer's disease with delusions (7) Dementia of the Alzheimer's type with early onset with behavioral disturbance (8) Major neurocognitive disorder SOO BAIRES MD Dec 25, 2021 08:37
[2021-12-25] MEDS: NYSTATIN TOPICAL POWDER 15GM BOTTLE. TP SCH ×2 (09:34→20:07)
[2021-12-25] MEDS: IPRATROPIUM/ALBUTEROL 20/100mcg/INH INHALER. INH SCH ×4 (09:34→20:06)
[2021-12-25] MEDS: metFORMIN 500 MG TABLET PO SCH ×2 (09:34→16:41)
[2021-12-25] MEDS: QUEtiapine 25 MG TABLET. PO SCH ×2 (09:34→20:07)
[2021-12-25 16:12] VITALS: BP 126/72
[2021-12-25] MEDS: GABAPENTIN 100 MG CAPSULE. PO SCH (16:41)
[2021-12-25] MEDS: MIRTAZAPINE 15 MG TABLET PO SCH (20:06)
[2021-12-25] MEDS: SERTRALINE 50 MG TABLET. PO SCH (20:07)
[2021-12-25] MEDS: traZODone 50 MG TABLET. PO SCH (20:07)
[2021-12-25] MEDS: MELATONIN 3 MG TABLET PO SCH (20:07)
--- NOTE | 2021-12-25 21:38 | PDOC ---
Exam Note: [place] Note: Please also refer to the separate dictated note~for this date of service dictated separately.~Patient seen individually. Discussed the patient with Nursing staff reviewed the chart.~Reviewed interim history and current functioning. Reviewed vital signs,~Labs/ Radiology~and current medications noted below. Continue current treatment with the changes noted in the dictated addendum note Assessment: Vital Signs/I&O: Vital Signs Date Time Temp Pulse Resp B/P (MAP) Pulse Ox O2 Delivery O2 Flow Rate FiO2 12/25/21 16:12 97.1 84 18 126/72 (90) 97 12/25/21 05:57 Room Air I & O 12/24/21 12/24/21 12/25/21 15:00 23:00 07:00 Intake Total 920 ml 580 ml Balance 920 ml 580 ml Current Medications: Meds: Current Medications Medications (Trade) Dose Ordered Sig/Richard Route PRN Reason Start Time Stop Time Status Last Admin Dose Admin Acetaminophen (Tylenol) 650 mg PRN Q6HRS PRN PO MILD PAIN / TEMP > 100.3'F 09/27/21 15:00 12/20/21 16:45 Mirtazapine (Remeron) 15 mg QHS PO 09/27/21 21:00 12/25/21 20:06 Olanzapine (ZyPREXA ZYDIS) 2.5 mg PRN Q2HRS PRN PO ANXIETY / AGITATION 09/27/21 15:00 11/27/21 20:14 Quetiapine Fumarate (SEROquel) 25 mg BID PO 09/27/21 21:00 12/25/21 20:07 Sertraline HCl (Zoloft) 50 mg HS PO 09/27/21 21:00 12/25/21 20:07 Trazodone HCl (Desyrel) 25 mg HS PO 09/27/21 21:00 10/05/21 18:14 DC 10/04/21 20:06 Melatonin (Melatonin) 3 mg HS PO 09/27/21 21:00 12/25/21 20:07 Metformin HCl (Glucophage) 500 mg BIDWMEALS PO 09/29/21 17:00 12/25/21 16:41 Nystatin (Nystop) 15 sulma STK-MED ONCE TP 10/04/21 09:36 10/04/21 09:36 DC Trazodone HCl (Desyrel) 50 mg HS PO 10/05/21 21:00 12/25/21 20:07 Trazodone HCl (Desyrel) 50 mg PRN QHS PRN PO INSOMNIA 10/05/21 18:15 12/05/21 20:02 Albuterol/ Ipratropium (Combivent Respimat 20-100 Mcg) 1 puff RTQID INH 10/18/21 20:00 12/25/21 20:06 Azithromycin (Zithromax) 500 mg 1X ONCE PO 10/19/21 16:45 10/19/21 16:46 DC 10/19/21 17:03 Azithromycin (Zithromax) 250 mg DAILY PO 10/20/21 09:00 10/24/21 22:00 DC 10/24/21 08:23 Lactobacillus Rhamnosus (Culturelle) 1 cap BID PO 10/21/21 09:00 11/29/21 16:02 DC 11/29/21 08:10 Diclofenac Sodium (Voltaren) 1 sulma TID TP 10/24/21 14:00 11/07/21 12:35 DC 11/06/21 20:18 Prednisone (Prednisone) 60 mg 1X ONCE PO 10/26/21 11:00 10/26/21 11:01 DC 10/26/21 12:17 Diclofenac Sodium (Voltaren) 1 sulma PRN TID PRN TP MUSCLE PAIN 11/07/21 12:45 12/17/21 08:58 Nystatin (Nystop) 1 sulma BID TP 12/13/21 09:00 12/25/21 20:07 Gabapentin (Neurontin) 100 mg DAILYWSUP PO 12/23/21 17:00 12/25/21 16:41 I have reviewed the current psychotropics carefully including drug interactions. Risk benefit ratio favors no change other than as noted in my dictated progress note. Diagnosis: Problems: (1) Impulse control disorder, unspecified (2) Anxiety disorder, unspecified (3) Dementia, vascular, with depression (4) Dementia, vascular, with delusions (5) Dementia in Alzheimer's disease with depression (6) Dementia in Alzheimer's disease with delusions (7) Dementia of the Alzheimer's type with early onset with behavioral disturbance (8) Major neurocognitive disorder SOO BAIRES MD Dec 25, 2021 21:38
[2021-12-26 06:06] VITALS: BP 138/73
[2021-12-26] MEDS: metFORMIN 500 MG TABLET PO SCH ×2 (07:43→17:00)
[2021-12-26] MEDS: QUEtiapine 25 MG TABLET. PO SCH ×2 (07:43→20:48)
[2021-12-26] MEDS: IPRATROPIUM/ALBUTEROL 20/100mcg/INH INHALER. INH SCH ×4 (07:45→20:51)
[2021-12-26] MEDS: NYSTATIN TOPICAL POWDER 15GM BOTTLE. TP SCH ×2 (07:47→20:52)
--- NOTE | 2021-12-26 08:24 | PDOC ---
Exam Note: [place] Note: This note is a late entry for 12/25/2021 covers elements not covered in my initial note. Subjective: The patient was seen individually on 12/25/2021, discussed and reviewed the chart with Gloria TANG. The patient slept 7 hours previous night. I met with her at the dining room after she had had supper. She complained of feeling cold and I gave her some extra covers. She was appreciative of this. She does complain of dry skin of her arms. When she was warm she was asking for some chocolate ice-cream. Review of Systems: Impaired ambulation, in wheelchair. No CV, , pulmonary, eye system symptoms on review. Mental Status Exam: The patient is oriented to herself and at times situation. She is quite animated, verbal, appropriate. Speech coherent has some latency. Abstraction fair. Computation impaired. Language function intact. Attention span short. Mood and affect is improved. Laboratory Data: Reviewed. Impression: Major neurocognitive disorder Alzheimer, vascular, with delusions, depression, behavioral disturbance. Anxiety disorder unspecified. Impulse control disorder unspecified. Plan: No change from initial note. Reviewed drug interactions, risk-benefit ratio. Assessment: Vital Signs/I&O: Vital Signs Date Time Temp Pulse Resp B/P (MAP) Pulse Ox O2 Delivery O2 Flow Rate FiO2 12/26/21 06:06 97.5 76 18 138/73 (94) 94 12/25/21 05:57 Room Air I & O 12/25/21 12/25/21 12/26/21 15:00 23:00 07:00 Intake Total 720 ml 480 ml Balance 720 ml 480 ml Current Medications: I have reviewed the current psychotropics carefully including drug interactions. Risk benefit ratio favors no change other than as noted in my dictated progress note. Diagnosis: Problems: (1) Impulse control disorder, unspecified (2) Anxiety disorder, unspecified (3) Dementia, vascular, with depression (4) Dementia, vascular, with delusions (5) Dementia in Alzheimer's disease with depression (6) Dementia in Alzheimer's disease with delusions (7) Dementia of the Alzheimer's type with early onset with behavioral disturbance (8) Major neurocognitive disorder SOO BAIRES MD Dec 26, 2021 08:24
[2021-12-26 15:40] VITALS: BP 122/63
[2021-12-26] MEDS: GABAPENTIN 100 MG CAPSULE. PO SCH (17:00)
[2021-12-26] MEDS: SERTRALINE 50 MG TABLET. PO SCH (20:48)
[2021-12-26] MEDS: traZODone 50 MG TABLET. PO SCH (20:49)
[2021-12-26] MEDS: MIRTAZAPINE 15 MG TABLET PO SCH (20:49)
[2021-12-26] MEDS: MELATONIN 3 MG TABLET PO SCH (20:49)
--- NOTE | 2021-12-26 21:22 | PDOC ---
Exam Note: [place] Note: Please also refer to the separate dictated note~for this date of service dictated separately.~Patient seen individually. Discussed the patient with Nursing staff reviewed the chart.~Reviewed interim history and current functioning. Reviewed vital signs,~Labs/ Radiology~and current medications noted below. Continue current treatment with the changes noted in the dictated addendum note Assessment: Vital Signs/I&O: Vital Signs Date Time Temp Pulse Resp B/P (MAP) Pulse Ox O2 Delivery O2 Flow Rate FiO2 12/26/21 15:40 97.2 75 20 122/63 (82) 97 12/25/21 05:57 Room Air I & O 12/25/21 12/25/21 12/26/21 15:00 23:00 07:00 Intake Total 720 ml 480 ml Balance 720 ml 480 ml Current Medications: Meds: Current Medications Medications (Trade) Dose Ordered Sig/Richard Route PRN Reason Start Time Stop Time Status Last Admin Dose Admin Acetaminophen (Tylenol) 650 mg PRN Q6HRS PRN PO MILD PAIN / TEMP > 100.3'F 09/27/21 15:00 12/20/21 16:45 Mirtazapine (Remeron) 15 mg QHS PO 09/27/21 21:00 12/26/21 20:49 Olanzapine (ZyPREXA ZYDIS) 2.5 mg PRN Q2HRS PRN PO ANXIETY / AGITATION 09/27/21 15:00 11/27/21 20:14 Quetiapine Fumarate (SEROquel) 25 mg BID PO 09/27/21 21:00 12/26/21 20:48 Sertraline HCl (Zoloft) 50 mg HS PO 09/27/21 21:00 12/26/21 20:48 Trazodone HCl (Desyrel) 25 mg HS PO 09/27/21 21:00 10/05/21 18:14 DC 10/04/21 20:06 Melatonin (Melatonin) 3 mg HS PO 09/27/21 21:00 12/26/21 20:49 Metformin HCl (Glucophage) 500 mg BIDWMEALS PO 09/29/21 17:00 12/26/21 17:00 Nystatin (Nystop) 15 sulma STK-MED ONCE TP 10/04/21 09:36 10/04/21 09:36 DC Trazodone HCl (Desyrel) 50 mg HS PO 10/05/21 21:00 12/26/21 20:49 Trazodone HCl (Desyrel) 50 mg PRN QHS PRN PO INSOMNIA 10/05/21 18:15 12/05/21 20:02 Albuterol/ Ipratropium (Combivent Respimat 20-100 Mcg) 1 puff RTQID INH 10/18/21 20:00 12/26/21 20:51 Azithromycin (Zithromax) 500 mg 1X ONCE PO 10/19/21 16:45 10/19/21 16:46 DC 10/19/21 17:03 Azithromycin (Zithromax) 250 mg DAILY PO 10/20/21 09:00 10/24/21 22:00 DC 10/24/21 08:23 Lactobacillus Rhamnosus (Culturelle) 1 cap BID PO 10/21/21 09:00 11/29/21 16:02 DC 11/29/21 08:10 Diclofenac Sodium (Voltaren) 1 sulma TID TP 10/24/21 14:00 11/07/21 12:35 DC 11/06/21 20:18 Prednisone (Prednisone) 60 mg 1X ONCE PO 10/26/21 11:00 10/26/21 11:01 DC 10/26/21 12:17 Diclofenac Sodium (Voltaren) 1 sulma PRN TID PRN TP MUSCLE PAIN 11/07/21 12:45 12/17/21 08:58 Nystatin (Nystop) 1 sulma BID TP 12/13/21 09:00 12/26/21 20:52 Gabapentin (Neurontin) 100 mg DAILYWSUP PO 12/23/21 17:00 12/26/21 17:00 I have reviewed the current psychotropics carefully including drug interactions. Risk benefit ratio favors no change other than as noted in my dictated progress note. Diagnosis: Problems: (1) Impulse control disorder, unspecified (2) Anxiety disorder, unspecified (3) Dementia, vascular, with depression (4) Dementia, vascular, with delusions (5) Dementia in Alzheimer's disease with depression (6) Dementia in Alzheimer's disease with delusions (7) Dementia of the Alzheimer's type with early onset with behavioral disturbance (8) Major neurocognitive disorder SOO BAIRES MD Dec 26, 2021 21:22
[2021-12-27 06:13] VITALS: BP 133/72
[2021-12-27] MEDS: QUEtiapine 25 MG TABLET. PO SCH ×2 (08:02→20:22)
[2021-12-27] MEDS: metFORMIN 500 MG TABLET PO SCH ×2 (08:02→17:18)
[2021-12-27] MEDS: NYSTATIN TOPICAL POWDER 15GM BOTTLE. TP SCH ×2 (08:03→20:22)
[2021-12-27] MEDS: IPRATROPIUM/ALBUTEROL 20/100mcg/INH INHALER. INH SCH ×4 (08:03→20:21)
--- NOTE | 2021-12-27 08:55 | PDOC ---
Exam Note: [place] Note: This note is a late entry for 12/26/2021 covers elements not covered in my initial note. Subjective: The patient was seen individually on 12/26/2021, discussed and reviewed the chart with Joni TANG. The patient slept 6-1/2 hours previous night. Overall she is somewhat sedated this evening. I met with her in her room. She was in bed, complained of being tired, but was neatly tucked in. At times she is a little more confused than others. Review of Systems: Impaired ambulation, in wheelchair. No CV, , pulmonary, eye system symptoms on review. Mental Status Exam: The patient is oriented to herself and situation. Speech coherent coherent. Abstraction fair. Computation impaired. Language function intact. Attention span short. Mood and affect is improved. Laboratory Data: Reviewed. Impression: Major neurocognitive disorder Alzheimer, vascular, with delusions, depression, behavioral disturbance. Anxiety disorder unspecified. Impulse control disorder unspecified. Plan: No change from initial note. Reviewed drug interactions, risk-benefit ratio. Social service staff actively is trying to find placement for her post legal clarification with the court. Assessment: Vital Signs/I&O: Vital Signs Date Time Temp Pulse Resp B/P (MAP) Pulse Ox O2 Delivery O2 Flow Rate FiO2 12/27/21 06:13 98.4 77 20 133/72 (92) 93 Room Air I & O 12/26/21 12/26/21 12/27/21 15:00 23:00 07:00 Intake Total 960 ml 600 ml Balance 960 ml 600 ml Current Medications: I have reviewed the current psychotropics carefully including drug interactions. Risk benefit ratio favors no change other than as noted in my dictated progress note. Diagnosis: Problems: (1) Impulse control disorder, unspecified (2) Anxiety disorder, unspecified (3) Dementia, vascular, with depression (4) Dementia, vascular, with delusions (5) Dementia in Alzheimer's disease with depression (6) Dementia in Alzheimer's disease with delusions (7) Dementia of the Alzheimer's type with early onset with behavioral disturbance (8) Major neurocognitive disorder SOO BAIRES MD Dec 27, 2021 08:55
[2021-12-27 15:19] VITALS: BP 123/67
[2021-12-27] MEDS: GABAPENTIN 100 MG CAPSULE. PO SCH (17:18)
[2021-12-27] MEDS: MELATONIN 3 MG TABLET PO SCH (20:21)
[2021-12-27] MEDS: SERTRALINE 50 MG TABLET. PO SCH (20:21)
[2021-12-27] MEDS: traZODone 50 MG TABLET. PO SCH (20:21)
[2021-12-27] MEDS: MIRTAZAPINE 15 MG TABLET PO SCH (20:22)
--- NOTE | 2021-12-27 21:43 | PDOC ---
Exam Note: [place] Note: Please also refer to the separate dictated note~for this date of service dictated separately.~Patient seen individually. Discussed the patient with Nursing staff reviewed the chart.~Reviewed interim history and current functioning. Reviewed vital signs,~Labs/ Radiology~and current medications noted below. Continue current treatment with the changes noted in the dictated addendum note Assessment: Vital Signs/I&O: Vital Signs Date Time Temp Pulse Resp B/P (MAP) Pulse Ox O2 Delivery O2 Flow Rate FiO2 12/27/21 15:19 98.1 74 17 123/67 (85) 98 Room Air I & O 12/26/21 12/26/21 12/27/21 15:00 23:00 07:00 Intake Total 960 ml 600 ml Balance 960 ml 600 ml Current Medications: Meds: Current Medications Medications (Trade) Dose Ordered Sig/Richard Route PRN Reason Start Time Stop Time Status Last Admin Dose Admin Acetaminophen (Tylenol) 650 mg PRN Q6HRS PRN PO MILD PAIN / TEMP > 100.3'F 09/27/21 15:00 12/20/21 16:45 Mirtazapine (Remeron) 15 mg QHS PO 09/27/21 21:00 12/27/21 20:22 Olanzapine (ZyPREXA ZYDIS) 2.5 mg PRN Q2HRS PRN PO ANXIETY / AGITATION 09/27/21 15:00 11/27/21 20:14 Quetiapine Fumarate (SEROquel) 25 mg BID PO 09/27/21 21:00 12/27/21 20:22 Sertraline HCl (Zoloft) 50 mg HS PO 09/27/21 21:00 12/27/21 20:21 Trazodone HCl (Desyrel) 25 mg HS PO 09/27/21 21:00 10/05/21 18:14 DC 10/04/21 20:06 Melatonin (Melatonin) 3 mg HS PO 09/27/21 21:00 12/27/21 20:21 Metformin HCl (Glucophage) 500 mg BIDWMEALS PO 09/29/21 17:00 12/27/21 17:18 Nystatin (Nystop) 15 sulma STK-MED ONCE TP 10/04/21 09:36 10/04/21 09:36 DC Trazodone HCl (Desyrel) 50 mg HS PO 10/05/21 21:00 12/27/21 20:21 Trazodone HCl (Desyrel) 50 mg PRN QHS PRN PO INSOMNIA 10/05/21 18:15 12/05/21 20:02 Albuterol/ Ipratropium (Combivent Respimat 20-100 Mcg) 1 puff RTQID INH 10/18/21 20:00 12/27/21 20:21 Azithromycin (Zithromax) 500 mg 1X ONCE PO 10/19/21 16:45 10/19/21 16:46 DC 10/19/21 17:03 Azithromycin (Zithromax) 250 mg DAILY PO 10/20/21 09:00 10/24/21 22:00 DC 10/24/21 08:23 Lactobacillus Rhamnosus (Culturelle) 1 cap BID PO 10/21/21 09:00 11/29/21 16:02 DC 11/29/21 08:10 Diclofenac Sodium (Voltaren) 1 sulma TID TP 10/24/21 14:00 11/07/21 12:35 DC 11/06/21 20:18 Prednisone (Prednisone) 60 mg 1X ONCE PO 10/26/21 11:00 10/26/21 11:01 DC 10/26/21 12:17 Diclofenac Sodium (Voltaren) 1 sulma PRN TID PRN TP MUSCLE PAIN 11/07/21 12:45 12/17/21 08:58 Nystatin (Nystop) 1 sulma BID TP 12/13/21 09:00 12/27/21 20:22 Gabapentin (Neurontin) 100 mg DAILYWSUP PO 12/23/21 17:00 12/27/21 17:18 I have reviewed the current psychotropics carefully including drug interactions. Risk benefit ratio favors no change other than as noted in my dictated progress note. Diagnosis: Problems: (1) Impulse control disorder, unspecified (2) Anxiety disorder, unspecified (3) Dementia, vascular, with depression (4) Dementia, vascular, with delusions (5) Dementia in Alzheimer's disease with depression (6) Dementia in Alzheimer's disease with delusions (7) Dementia of the Alzheimer's type with early onset with behavioral disturbance (8) Major neurocognitive disorder SOO BAIRES MD Dec 27, 2021 21:43
[2021-12-28 05:18] VITALS: BP 127/72
[2021-12-28] MEDS: IPRATROPIUM/ALBUTEROL 20/100mcg/INH INHALER. INH SCH ×4 (08:07→20:00)
[2021-12-28] MEDS: metFORMIN 500 MG TABLET PO SCH ×2 (08:08→17:00)
[2021-12-28] MEDS: QUEtiapine 25 MG TABLET. PO SCH ×2 (08:08→20:56)
[2021-12-28] MEDS: NYSTATIN TOPICAL POWDER 15GM BOTTLE. TP SCH ×2 (08:08→20:57)
--- NOTE | 2021-12-28 08:19 | PDOC ---
Exam Note: [place] Note: This note is a late entry for 12/27/2021 covers elements not covered in my initial note. Subjective: The patient was seen individually on 12/27/2021, discussed and reviewed the chart with Nikia TANG. The patient slept 9 hours previous night. I met with her in the dining room after she had had her supper. She had her red polka dot blanket around her, still complained of feeling cold. Review of Systems: Ambulation impaired, in wheelchair. Complains of feeling cold, itching in her dry skin. She gets lotion for this regularly. No CV, , pulmonary, eye system symptoms on review. Mental Status Exam: The patient is oriented to herself and situation. Speech coherent Abstraction fair. Computation impaired. Language function intact. Attention span short. Mood and affect is improved. Laboratory Data: Reviewed. Impression: Major neurocognitive disorder Alzheimer, vascular, with delusions, depression, behavioral disturbance. Anxiety disorder unspecified. Impulse control disorder unspecified. Plan: No change from initial note. Reviewed drug interactions, risk-benefit ratio. Assessment: Vital Signs/I&O: Vital Signs Date Time Temp Pulse Resp B/P (MAP) Pulse Ox O2 Delivery O2 Flow Rate FiO2 12/28/21 05:18 97.7 72 20 127/72 (90) 92 12/27/21 15:19 Room Air I & O 12/27/21 12/27/21 12/28/21 15:00 23:00 07:00 Intake Total 480 ml 480 ml Balance 480 ml 480 ml Current Medications: I have reviewed the current psychotropics carefully including drug interactions. Risk benefit ratio favors no change other than as noted in my dictated progress note. Diagnosis: Problems: (1) Impulse control disorder, unspecified (2) Anxiety disorder, unspecified (3) Dementia, vascular, with depression (4) Dementia, vascular, with delusions (5) Dementia in Alzheimer's disease with depression (6) Dementia in Alzheimer's disease with delusions (7) Dementia of the Alzheimer's type with early onset with behavioral di sturbance (8) Major neurocognitive disorder SOO BAIRES MD Dec 28, 2021 08:18
[2021-12-28 15:55] VITALS: BP 122/62
[2021-12-28] MEDS: GABAPENTIN 100 MG CAPSULE. PO SCH (17:00)
[2021-12-28] MEDS: MELATONIN 3 MG TABLET PO SCH (20:56)
[2021-12-28] MEDS: MIRTAZAPINE 15 MG TABLET PO SCH (20:56)
[2021-12-28] MEDS: traZODone 50 MG TABLET. PO SCH (20:56)
[2021-12-28] MEDS: SERTRALINE 50 MG TABLET. PO SCH (20:56)
--- NOTE | 2021-12-28 22:01 | PDOC ---
Exam Note: [place] Note: Please also refer to the separate dictated note~for this date of service dictated separately.~Patient seen individually. Discussed the patient with Nursing staff reviewed the chart.~Reviewed interim history and current functioning. Reviewed vital signs,~Labs/ Radiology~and current medications noted below. Continue current treatment with the changes noted in the dictated addendum note Assessment: Vital Signs/I&O: Vital Signs Date Time Temp Pulse Resp B/P (MAP) Pulse Ox O2 Delivery O2 Flow Rate FiO2 12/28/21 15:55 98.2 75 16 122/62 (82) 94 12/27/21 15:19 Room Air I & O 12/27/21 12/27/21 12/28/21 15:00 23:00 07:00 Intake Total 480 ml 480 ml Balance 480 ml 480 ml Current Medications: Meds: Current Medications Medications (Trade) Dose Ordered Sig/Richard Route PRN Reason Start Time Stop Time Status Last Admin Dose Admin Acetaminophen (Tylenol) 650 mg PRN Q6HRS PRN PO MILD PAIN / TEMP > 100.3'F 09/27/21 15:00 12/20/21 16:45 Mirtazapine (Remeron) 15 mg QHS PO 09/27/21 21:00 12/28/21 20:56 Olanzapine (ZyPREXA ZYDIS) 2.5 mg PRN Q2HRS PRN PO ANXIETY / AGITATION 09/27/21 15:00 11/27/21 20:14 Quetiapine Fumarate (SEROquel) 25 mg BID PO 09/27/21 21:00 12/28/21 20:56 Sertraline HCl (Zoloft) 50 mg HS PO 09/27/21 21:00 12/28/21 20:56 Trazodone HCl (Desyrel) 25 mg HS PO 09/27/21 21:00 10/05/21 18:14 DC 10/04/21 20:06 Melatonin (Melatonin) 3 mg HS PO 09/27/21 21:00 12/28/21 20:56 Metformin HCl (Glucophage) 500 mg BIDWMEALS PO 09/29/21 17:00 12/28/21 17:00 Nystatin (Nystop) 15 sulma STK-MED ONCE TP 10/04/21 09:36 10/04/21 09:36 DC Trazodone HCl (Desyrel) 50 mg HS PO 10/05/21 21:00 12/28/21 20:56 Trazodone HCl (Desyrel) 50 mg PRN QHS PRN PO INSOMNIA 10/05/21 18:15 12/05/21 20:02 Albuterol/ Ipratropium (Combivent Respimat 20-100 Mcg) 1 puff RTQID INH 10/18/21 20:00 12/28/21 20:00 Azithromycin (Zithromax) 500 mg 1X ONCE PO 10/19/21 16:45 10/19/21 16:46 DC 10/19/21 17:03 Azithromycin (Zithromax) 250 mg DAILY PO 10/20/21 09:00 10/24/21 22:00 DC 10/24/21 08:23 Lactobacillus Rhamnosus (Culturelle) 1 cap BID PO 10/21/21 09:00 11/29/21 16:02 DC 11/29/21 08:10 Diclofenac Sodium (Voltaren) 1 sulma TID TP 10/24/21 14:00 11/07/21 12:35 DC 11/06/21 20:18 Prednisone (Prednisone) 60 mg 1X ONCE PO 10/26/21 11:00 10/26/21 11:01 DC 10/26/21 12:17 Diclofenac Sodium (Voltaren) 1 sulma PRN TID PRN TP MUSCLE PAIN 11/07/21 12:45 12/17/21 08:58 Nystatin (Nystop) 1 sulma BID TP 12/13/21 09:00 12/28/21 20:57 Gabapentin (Neurontin) 100 mg DAILYWSUP PO 12/23/21 17:00 12/28/21 17:00 I have reviewed the current psychotropics carefully including drug interactions. Risk benefit ratio favors no change other than as noted in my dictated progress note. Diagnosis: Problems: (1) Impulse control disorder, unspecified (2) Anxiety disorder, unspecified (3) Dementia, vascular, with depression (4) Dementia, vascular, with delusions (5) Dementia in Alzheimer's disease with depression (6) Dementia in Alzheimer's disease with delusions (7) Dementia of the Alzheimer's type with early onset with behavioral disturbance (8) Major neurocognitive disorder SOO BAIRES MD Dec 28, 2021 22:01
[2021-12-29 06:32] VITALS: BP 147/75
--- NOTE | 2021-12-29 08:29 | PDOC ---
Exam Note: [place] Note: This note is a late entry for 12/28/2021 covers elements not covered in my initial note. Subjective: The patient was seen individually on 12/28/2021, discussed and reviewed the chart with Nahomi TANG. The patient slept 7-3/4 hours previous night. I met with her in the day room. She complained of feeling cold and said her blanket was in her room and she was taking her wheelchair towards the room to get it. Nursing staff refer to her as cute. She in fact has a very nice personality much better than how she presented initially when she came in. The delay has really been about getting legal status clarified so placement can be affected. Social service staff is working diligently towards this. Review of Systems: Ambulation impaired, in wheelchair. Complains of feeling cold. No CV, , pulmonary, eye system symptoms on review. Mental Status Exam: The patient is oriented to herself and situation. Speech coherent Abstraction fair. Computation impaired. Language function intact. Attention span short. Mood and affect is improved. Laboratory Data: Reviewed. Impression: Major neurocognitive disorder Alzheimer, vascular, with delusions, depression, behavioral disturbance. Anxiety disorder unspecified. Impulse control disorder unspecified. Plan: No change from initial note. Reviewed drug interactions, risk-benefit ratio. Assessment: Vital Signs/I&O: Vital Signs Date Time Temp Pulse Resp B/P (MAP) Pulse Ox O2 Delivery O2 Flow Rate FiO2 12/29/21 06:32 98.3 58 18 147/75 (99) 95 Room Air l I & O 12/28/21 12/28/21 12/29/21 15:00 23:00 07:00 Intake Total 480 ml 170 ml Balance 480 ml 170 ml Current Medications: I have reviewed the current psychotropics carefully including drug interactions. Risk benefit ratio favors no change other than as noted in my dictated progress note. Diagnosis: Problems: (1) Impulse control disorder, unspecified (2) Anxiety disorder, unspecified (3) Dementia, vascular, with depression (4) Dementia, vascular, with delusions (5) Dementia in Alzheimer's disease with depression (6) Dementia in Alzheimer's disease with delusions (7) Dementia of the Alzheimer's type with early onset with behavioral disturbance (8) Major neurocognitive disorder SOO BAIRES MD Dec 29, 2021 08:29
[2021-12-29] MEDS: IPRATROPIUM/ALBUTEROL 20/100mcg/INH INHALER. INH SCH ×4 (08:34→21:09)
[2021-12-29] MEDS: metFORMIN 500 MG TABLET PO SCH ×2 (08:35→17:22)
[2021-12-29] MEDS: QUEtiapine 25 MG TABLET. PO SCH ×2 (08:35→21:09)
[2021-12-29] MEDS: NYSTATIN TOPICAL POWDER 15GM BOTTLE. TP SCH ×2 (08:35→21:00)
[2021-12-29 15:52] VITALS: BP 135/72
[2021-12-29] MEDS: GABAPENTIN 100 MG CAPSULE. PO SCH (17:22)
[2021-12-29] MEDS: ACETAMINOPHEN 325 MG TABLET PO PRN (17:24)
[2021-12-29] MEDS: MIRTAZAPINE 15 MG TABLET PO SCH (21:09)
[2021-12-29] MEDS: SERTRALINE 50 MG TABLET. PO SCH (21:09)
[2021-12-29] MEDS: traZODone 50 MG TABLET. PO SCH (21:09)
[2021-12-29] MEDS: MELATONIN 3 MG TABLET PO SCH (21:09)
--- NOTE | 2021-12-29 21:55 | PDOC ---
Exam Note: [place] Note: Please also refer to the separate dictated note~for this date of service dictated separately.~Patient seen individually. Discussed the patient with Nursing staff reviewed the chart.~Reviewed interim history and current functioning. Reviewed vital signs,~Labs/ Radiology~and current medications noted below. Continue current treatment with the changes noted in the dictated addendum note Assessment: Vital Signs/I&O: Vital Signs Date Time Temp Pulse Resp B/P (MAP) Pulse Ox O2 Delivery O2 Flow Rate FiO2 12/29/21 15:52 97.3 73 20 135/72 (93) 93 12/29/21 06:32 Room Air I & O 12/28/21 12/28/21 12/29/21 15:00 23:00 07:00 Intake Total 480 ml 170 ml Balance 480 ml 170 ml Current Medications: Meds: Current Medications Medications (Trade) Dose Ordered Sig/Richard Route PRN Reason Start Time Stop Time Status Last Admin Dose Admin Acetaminophen (Tylenol) 650 mg PRN Q6HRS PRN PO MILD PAIN / TEMP > 100.3'F 09/27/21 15:00 12/29/21 17:24 Mirtazapine (Remeron) 15 mg QHS PO 09/27/21 21:00 12/29/21 21:09 Olanzapine (ZyPREXA ZYDIS) 2.5 mg PRN Q2HRS PRN PO ANXIETY / AGITATION 09/27/21 15:00 11/27/21 20:14 Quetiapine Fumarate (SEROquel) 25 mg BID PO 09/27/21 21:00 12/29/21 21:09 Sertraline HCl (Zoloft) 50 mg HS PO 09/27/21 21:00 12/29/21 21:09 Trazodone HCl (Desyrel) 25 mg HS PO 09/27/21 21:00 10/05/21 18:14 DC 10/04/21 20:06 Melatonin (Melatonin) 3 mg HS PO 09/27/21 21:00 12/29/21 21:09 Metformin HCl (Glucophage) 500 mg BIDWMEALS PO 09/29/21 17:00 12/29/21 17:22 Nystatin (Nystop) 15 sulma STK-MED ONCE TP 10/04/21 09:36 10/04/21 09:36 DC Trazodone HCl (Desyrel) 50 mg HS PO 10/05/21 21:00 12/29/21 21:09 Trazodone HCl (Desyrel) 50 mg PRN QHS PRN PO INSOMNIA 10/05/21 18:15 12/05/21 20:02 Albuterol/ Ipratropium (Combivent Respimat 20-100 Mcg) 1 puff RTQID INH 10/18/21 20:00 12/29/21 21:09 Azithromycin (Zithromax) 500 mg 1X ONCE PO 10/19/21 16:45 10/19/21 16:46 DC 10/19/21 17:03 Azithromycin (Zithromax) 250 mg DAILY PO 10/20/21 09:00 10/24/21 22:00 DC 10/24/21 08:23 Lactobacillus Rhamnosus (Culturelle) 1 cap BID PO 10/21/21 09:00 11/29/21 16:02 DC 11/29/21 08:10 Diclofenac Sodium (Voltaren) 1 sulma TID TP 10/24/21 14:00 11/07/21 12:35 DC 11/06/21 20:18 Prednisone (Prednisone) 60 mg 1X ONCE PO 10/26/21 11:00 10/26/21 11:01 DC 10/26/21 12:17 Diclofenac Sodium (Voltaren) 1 sulma PRN TID PRN TP MUSCLE PAIN 11/07/21 12:45 12/17/21 08:58 Nystatin (Nystop) 1 sulma BID TP 12/13/21 09:00 12/29/21 21:00 Gabapentin (Neurontin) 100 mg DAILYWSUP PO 12/23/21 17:00 12/29/21 17:22 I have reviewed the current psychotropics carefully including drug interactions. Risk benefit ratio favors no change other than as noted in my dictated progress note. Diagnosis: Problems: (1) Impulse control disorder, unspecified (2) Anxiety disorder, unspecified (3) Dementia, vascular, with depression (4) Dementia, vascular, with delusions (5) Dementia in Alzheimer's disease with depression (6) Dementia in Alzheimer's disease with delusions (7) Dementia of the Alzheimer's type with early onset with behavioral disturbance (8) Major neurocognitive disorder SOO BAIRES MD Dec 29, 2021 21:55
[2021-12-30 06:32] VITALS: BP 145/58
[2021-12-30] MEDS: QUEtiapine 25 MG TABLET. PO SCH ×2 (08:06→20:01)
[2021-12-30] MEDS: metFORMIN 500 MG TABLET PO SCH ×2 (08:06→17:20)
[2021-12-30] MEDS: ACETAMINOPHEN 325 MG TABLET PO PRN (08:07)
[2021-12-30] MEDS: IPRATROPIUM/ALBUTEROL 20/100mcg/INH INHALER. INH SCH ×4 (08:09→20:03)
[2021-12-30] MEDS: NYSTATIN TOPICAL POWDER 15GM BOTTLE. TP SCH ×2 (09:00→20:01)
--- NOTE | 2021-12-30 09:20 | PDOC ---
Exam Note: [place] Note: This note is a late entry for 12/29/2021 covers elements not covered in my initial note. Subjective: The patient was seen individually on 12/29/2021, discussed and reviewed the chart with Nahomi TANG. The patient slept 6-3/4 hours previous night. I met with her in the room. Review of Systems: Ambulation impaired, in wheelchair. Complains of feeling cold. No CV, , pulmonary, eye system symptoms on review. Mental Status Exam: The patient is oriented to herself and situation. She was quite animated, verbal. Memory is impaired. Speech coherent Abstraction fair. Computation impaired. Language function intact. Attention span short. Mood and affect is improved. No suicidal or homicidal ideation. Laboratory Data: Reviewed. Impression: Major neurocognitive disorder Alzheimer, vascular, with delusions, depression, behavioral disturbance. Anxiety disorder unspecified. Impulse control disorder unspecified. Plan: No change from initial note. Reviewed drug interactions, risk-benefit ratio. Assessment: Vital Signs/I&O: Vital Signs Date Time Temp Pulse Resp B/P (MAP) Pulse Ox O2 Delivery O2 Flow Rate FiO2 12/30/21 06:32 97.5 66 18 145/58 (87) 96 12/29/21 06:32 Room Air I & O 12/29/21 12/29/21 12/30/21 15:00 23:00 07:00 Intake Total 920 ml 360 ml Balance 920 ml 360 ml Current Medications: I have reviewed the current psychotropics carefully including drug interactions. Risk benefit ratio favors no change other than as noted in my dictated progress note. Diagnosis: Problems: (1) Impulse control disorder, unspecified (2) Anxiety disorder, unspecified (3) Dementia, vascular, with depression (4) Dementia, vascular, with delusions (5) Dementia in Alzheimer's disease with depression (6) Dementia in Alzheimer's disease with delusions (7) Dementia of the Alzheimer's type with early onset with behavioral disturbance (8) Major neurocognitive disorder SOO BAIRES MD Dec 30, 2021 09:20
--- NOTE | 2021-12-30 14:43 | TX PLAN ---
Interdisciplinary Tx Plan Admission Information Sep 27, 2021 at 12:55 Legal Status (on Admission): Voluntary DPOA/Guardian Name: Lucille NieceOscar Bergman Contact Other Contact Name: Jayna Sheikh Contact Verified Code Status: Full Code Allergies: Coded Allergies: No Known Drug Allergies (Unverified , 07/16/21) Diagnoses Primary Diagnosis: 1. 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 Mood disorder, unspecified. Reasons for Admission: Aggressive, Delusions, Agitated, Sig. Change Sleep, Hallucinations, Combative Problem in Patient's Words: Per pt great niece/DPOAАнна who was raised mostly by pt, pt has had a noticable decline over the past year and particularlly over the past couple of months. Up until a year ago, pt was living in her independant living apartment and out of the carver, she moved to [place], [place] and bought a house that she paid winn for. She was then found to be living in very poor conditions without running water and no utilities and overall unable to care for herself. She had a few past hospitalizations but then release to herself and then would be found again living in unsafe conditions. At one point, pt drove herself to Анна's home, but refused to come in to stay, and would only stay in her car. Анна was finally successful at gaining DPOA during one of pt's hospitalizations and also in getting her license revoked. During the past year, family and staff during the different hospitalizations discovered pt was having hallucinations and delusions that seem to continue. Анна is concerned if pt is struggling with onset of dementia or if pt is truly experiencing psychosis and might clear in the future with medication management. Additional Admission Comments: Per intake record, pt refusing UA and cath, sexually inappropriate comments to staff, not sleeping for 30 hours, combative to staff, delusions,auditory hallucinations, verbally aggressive, screaming, cussing, disruptive. Problems Active Problems: Agitation Inactive Problems: Pt has shown improvements. She is less aggressive, delusional, and combative. She, also, is sleeping better. Pt Strengths/Limitations Ability for [place]: Poor Cognitive Functioning/Ability: Poor Communication Skills/Ability: Fair Financial Resources: Fair Insight/Judgement: Poor Intellectual Ability: Fair Physical Health: Poor Social Skills: Fair Stability in Family: Fair Stability in School/Work: Fair Verbal Skills: Fair Discharge Criteria Discharge Criteria: Adequate arrangements @DC, Verbal commit med comply, Improved behavior, Improved mood/thought Other Discharge Comments: None at this time. Preliminary Discharge Plan Preliminary DC Plan: Placement Needed Special Precautions Special Precautions: Agitation/Assault, Swallowing/Choking Fall Risk: High Other Precautions (specify): Pt has a history of falls. Initial D/C Plan Pt will need placement at time of discharge. Identified Discharge Needs: None at this time. Currently Utilized Resources Currently Utilized Resources/P: Great Niece/DPOA-Анна Jj has hired and commercial attorney to assist with guardianship. Prior to Admission: PCP-Dr. Quang Raza Facility-[facility]; contact-CHANA Cruz *Note-Pt will not return to [facility] Referrals Community Resources: None known at this time. Identified Problems/Hx/Goals Objectives/Short-Term Goals Short Term Goals: Control abnormal behavior, Dec. Aggression, Dec. Anxiety/Panic, Dec. Hallucination/Delus, Dec. Outbursts, Medication Stabilization, Monitor Med Effects, Prevent Deterioration, Promote Coping Skill Short Term Goals in Patient's: Assist with proper diagnosis of psychosis vs dementia. Interventions/Frequency Staff Interventions/Frequency&: Psychiatry to assess pt three times per week for medication management. Nursing to assess behaviors, monitor medications, and complete 15 minute checks daily. Social work to see pt at least two times weekly to aid in return to placement. Activities to encourage pt to participate in group activities daily. 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 Education: According to DPOA, pt received a high school diploma and she had some technical college. Community Follow-up PCP Community Provider/Family Inpu: Pt great nigregorio/Анна LANG, provided pt history for the development of the treatment plan. Анна is available for further information should it be needed. Treatment Plan Explained Patient/Kindergarten Paraprofessional had this treatment plan explained to him/her as indicated by the signature below and has been given the opportunity to ask questions and make suggestions: Date: Patient/Kindergarten Paraprofessional Signature: Status Update Update Pt continues to eat 90% of her meals and sleeps an average of 7 hours at night. She remains med compliant. She likes to take naps following meals. Pt continues to tease with others including staff and other pts. She has attended four group this past week where she stood with staff assistance and danced; she also did karaoke. Pt is doing reasonably well overall. Guardianship continues to be worked on. LINDA BLACKWELL Dec 30, 2021 14:43
[2021-12-30 15:57] VITALS: BP 117/52
[2021-12-30] MEDS: GABAPENTIN 100 MG CAPSULE. PO SCH (17:20)
[2021-12-30] MEDS: MELATONIN 3 MG TABLET PO SCH (20:01)
[2021-12-30] MEDS: MIRTAZAPINE 15 MG TABLET PO SCH (20:01)
[2021-12-30] MEDS: SERTRALINE 50 MG TABLET. PO SCH (20:01)
[2021-12-30] MEDS: traZODone 50 MG TABLET. PO SCH (20:01)
--- NOTE | 2021-12-30 21:20 | PDOC ---
Exam Note: [place] Note: Please also refer to the separate dictated note~for this date of service dictated separately.~Patient seen individually. Discussed the patient with Nursing staff reviewed the chart.~Reviewed interim history and current functioning. Reviewed vital signs,~Labs/ Radiology~and current medications noted below. Continue current treatment with the changes noted in the dictated addendum note Assessment: Vital Signs/I&O: Vital Signs Date Time Temp Pulse Resp B/P (MAP) Pulse Ox O2 Delivery O2 Flow Rate FiO2 12/30/21 15:57 98.1 75 18 117/52 (73) 100 12/29/21 06:32 Room Air I & O 12/29/21 12/29/21 12/30/21 15:00 23:00 07:00 Intake Total 920 ml 360 ml Balance 920 ml 360 ml Current Medications: Meds: Current Medications Medications (Trade) Dose Ordered Sig/Richard Route PRN Reason Start Time Stop Time Status Last Admin Dose Admin Acetaminophen (Tylenol) 650 mg PRN Q6HRS PRN PO MILD PAIN / TEMP > 100.3'F 09/27/21 15:00 12/30/21 08:07 Mirtazapine (Remeron) 15 mg QHS PO 09/27/21 21:00 12/30/21 20:01 Olanzapine (ZyPREXA ZYDIS) 2.5 mg PRN Q2HRS PRN PO ANXIETY / AGITATION 09/27/21 15:00 11/27/21 20:14 Quetiapine Fumarate (SEROquel) 25 mg BID PO 09/27/21 21:00 12/30/21 20:01 Sertraline HCl (Zoloft) 50 mg HS PO 09/27/21 21:00 12/30/21 20:01 Trazodone HCl (Desyrel) 25 mg HS PO 09/27/21 21:00 10/05/21 18:14 DC 10/04/21 20:06 Melatonin (Melatonin) 3 mg HS PO 09/27/21 21:00 12/30/21 20:01 Metformin HCl (Glucophage) 500 mg BIDWMEALS PO 09/29/21 17:00 12/30/21 17:20 Nystatin (Nystop) 15 sulma STK-MED ONCE TP 10/04/21 09:36 10/04/21 09:36 DC Trazodone HCl (Desyrel) 50 mg HS PO 10/05/21 21:00 12/30/21 20:01 Trazodone HCl (Desyrel) 50 mg PRN QHS PRN PO INSOMNIA 10/05/21 18:15 12/05/21 20:02 Albuterol/ Ipratropium (Combivent Respimat 20-100 Mcg) 1 puff RTQID INH 10/18/21 20:00 12/30/21 20:03 Azithromycin (Zithromax) 500 mg 1X ONCE PO 10/19/21 16:45 10/19/21 16:46 DC 10/19/21 17:03 Azithromycin (Zithromax) 250 mg DAILY PO 10/20/21 09:00 10/24/21 22:00 DC 10/24/21 08:23 Lactobacillus Rhamnosus (Culturelle) 1 cap BID PO 10/21/21 09:00 11/29/21 16:02 DC 11/29/21 08:10 Diclofenac Sodium (Voltaren) 1 sulma TID TP 10/24/21 14:00 11/07/21 12:35 DC 11/06/21 20:18 Prednisone (Prednisone) 60 mg 1X ONCE PO 10/26/21 11:00 10/26/21 11:01 DC 10/26/21 12:17 Diclofenac Sodium (Voltaren) 1 sulma PRN TID PRN TP MUSCLE PAIN 11/07/21 12:45 12/17/21 08:58 Nystatin (Nystop) 1 sulma BID TP 12/13/21 09:00 12/30/21 20:01 Gabapentin (Neurontin) 100 mg DAILYWSUP PO 12/23/21 17:00 12/30/21 17:20 I have reviewed the current psychotropics carefully including drug interactions. Risk benefit ratio favors no change other than as noted in my dictated progress note. Diagnosis: Problems: (1) Impulse control disorder, unspecified (2) Anxiety disorder, unspecified (3) Dementia, vascular, with depression (4) Dementia, vascular, with delusions (5) Dementia in Alzheimer's disease with depression (6) Dementia in Alzheimer's disease with delusions (7) Dementia of the Alzheimer's type with early onset with behavioral disturbance (8) Major neurocognitive disorder SOO BAIRES MD Dec 30, 2021 21:20
--- NOTE | 2021-12-30 22:49 | PDOC ---
Exam Note: [place] Note: This note is for 12/30/2021 covers elements not covered in my initial note. Subjective: The patient was reviewed at treatment team meeting individually in the morning on 12/30/2021 with Katherine Moreno and Stephani Curry (psychiatric social worker), Martina, activity therapy, and Liya TANG, discussed and reviewed the chart. The patient slept 6-3/4 hours previous night. Overall she is doing reasonably well. She does complain of back pain. She has attended 4 groups in the past one week and was participating in the singing group. I met with her in the dining room after supper. Review of Systems: Ambulation impaired, in wheelchair. No CV, , pulmonary, eye system symptoms on review. Mental Status Exam: The patient is oriented to herself and situation. She is pleasant, verbal, interactive, smiling, somewhat anxious and repetitive at times. Memory is impaired. Speech coherent. Abstraction fair. Computation impaired. Language function intact. Attention span short. Mood and affect is improved. No suicidal or homicidal ideation. Laboratory Data: Reviewed. Impression: Major neurocognitive disorder Alzheimer, vascular, with delusions, depression, behavioral disturbance. Anxiety disorder unspecified. Impulse control disorder unspecified. Plan: No change from initial note. Reviewed drug interactions, risk-benefit ratio. Assessment: Vital Signs/I&O: Vital Signs Date Time Temp Pulse Resp B/P (MAP) Pulse Ox O2 Delivery O2 Flow Rate FiO2 12/30/21 15:57 98.1 75 18 117/52 (73) 100 12/29/21 06:32 Room Air I & O 12/29/21 12/29/21 12/30/21 15:00 23:00 07:00 Intake Total 920 ml 360 ml Balance 920 ml 360 ml Current Medications: I have reviewed the current psychotropics carefully including drug interactions. Risk benefit ratio favors no change other than as noted in my dictated progress note. Diagnosis: Problems: (1) Impulse control disorder, unspecified (2) Anxiety disorder, unspecified (3) Dementia, vascular, with depression (4) Dementia, vascular, with delusions (5) Dementia in Alzheimer's disease with depression (6) Dementia in Alzheimer's disease with delusions (7) Dementia of the Alzheimer's type with early onset with behavioral disturbance (8) Major neurocognitive disorder SOO BAIRES MD Dec 30, 2021 22:49
[2021-12-31 05:59] VITALS: BP 142/69
[2021-12-31 06:22] LABS: BASO % 1 % (0-3); EOS # 0.3 x10^3/uL (0.0-0.7); EOS % 4 % (0-3); HEMATOCRIT 33.4 % (36.0-47.0); HEMOGLOBIN 10.8 g/dL (12.0-15.5); LYMPH # 2.4 x10^3/uL (1.0-4.8); LYMPH % 31 % (24-48); MEAN CORPUSCULAR HEMOGLOBIN 28 pg (25-35); MEAN CORPUSCULAR HGB CONC 32 g/dL (31-37); MEAN CORPUSCULAR VOLUME 85 fL (79-100); MONO # 0.5 x10^3/uL (0.0-1.1); MONO % 6 % (0-9); NEUT # 4.4 x10^3uL (1.8-7.7); NEUT % 59 % (31-73); PLATELET COUNT 184 x10^3/uL (140-400); RED BLOOD COUNT 3.93 x10^6/uL (3.50-5.40); WHITE BLOOD COUNT 7.6 x10^3/uL (4.0-11.0)
[2021-12-31 06:39] LABS: ALBUMIN 2.7 g/dL (3.4-5.0); ALBUMIN/GLOBULIN RATIO 0.7 (1.0-1.7); CALCIUM 8.8 mg/dL (8.5-10.1); CREATININE 0.9 mg/dL (0.6-1.0); GFR 59.7; POTASSIUM 4.6 mmol/L (3.5-5.1); TOTAL BILIRUBIN 0.2 mg/dL (0.2-1.0); TOTAL PROTEIN 6.4 g/dL (6.4-8.2)
[2021-12-31] MEDS: NYSTATIN TOPICAL POWDER 15GM BOTTLE. TP SCH ×2 (08:18→20:23)
[2021-12-31] MEDS: IPRATROPIUM/ALBUTEROL 20/100mcg/INH INHALER. INH SCH ×4 (08:18→20:23)
[2021-12-31] MEDS: QUEtiapine 25 MG TABLET. PO SCH ×2 (08:19→20:23)
[2021-12-31] MEDS: metFORMIN 500 MG TABLET PO SCH ×2 (08:19→17:13)
[2021-12-31 16:05] VITALS: BP 128/53
[2021-12-31] MEDS: GABAPENTIN 100 MG CAPSULE. PO SCH (17:13)
[2021-12-31] MEDS: MELATONIN 3 MG TABLET PO SCH (20:23)
[2021-12-31] MEDS: MIRTAZAPINE 15 MG TABLET PO SCH (20:23)
[2021-12-31] MEDS: traZODone 50 MG TABLET. PO SCH (20:23)
[2021-12-31] MEDS: SERTRALINE 50 MG TABLET. PO SCH (20:23)
--- NOTE | 2021-12-31 21:41 | PDOC ---
Exam Note: [place] Note: Please also refer to the separate dictated note~for this date of service dictated separately.~Patient seen individually. Discussed the patient with Nursing staff reviewed the chart.~Reviewed interim history and current functioning. Reviewed vital signs,~Labs/ Radiology~and current medications noted below. Continue current treatment with the changes noted in the dictated addendum note Assessment: Vital Signs/I&O: Vital Signs Date Time Temp Pulse Resp B/P (MAP) Pulse Ox O2 Delivery O2 Flow Rate FiO2 12/31/21 16:05 97.2 72 20 128/53 (78) 98 12/29/21 06:32 Room Air I & O 12/30/21 12/30/21 12/31/21 15:00 23:00 07:00 Intake Total 1060 ml 600 ml Balance 1060 ml 600 ml Labs: Laboratory Tests Test 12/31/21 06:05 12/31/21 07:31 White Blood Count 7.6 x10^3/uL (4.0-11.0) Red Blood Count 3.93 x10^6/uL (3.50-5.40) Hemoglobin 10.8 g/dL (12.0-15.5) L Hematocrit 33.4 % (36.0-47.0) L Mean Corpuscular Volume 85 fL (79-100) Mean Corpuscular Hemoglobin 28 pg (25-35) Mean Corpuscular Hemoglobin Concent 32 g/dL (31-37) Red Cell Distribution Width 15.0 % (11.5-14.5) H Platelet Count 184 x10^3/uL (140-400) Neutrophils (%) (Auto) 59 % (31-73) Lymphocytes (%) (Auto) 31 % (24-48) Monocytes (%) (Auto) 6 % (0-9) Eosinophils (%) (Auto) 4 % (0-3) H Basophils (%) (Auto) 1 % (0-3) Neutrophils # (Auto) 4.4 x10^3uL (1.8-7.7) Lymphocytes # (Auto) 2.4 x10^3/uL (1.0-4.8) Monocytes # (Auto) 0.5 x10^3/uL (0.0-1.1) Eosinophils # (Auto) 0.3 x10^3/uL (0.0-0.7) Basophils # (Auto) 0.0 x10^3/uL (0.0-0.2) Sodium Level 141 mmol/L (136-145) Potassium Level 4.6 mmol/L (3.5-5.1) Chloride Level 106 mmol/L (98-107) Carbon Dioxide Level 31 mmol/L (21-32) Anion Gap 4 (6-14) L Blood Urea Nitrogen 33 mg/dL (7-20) H Creatinine 0.9 mg/dL (0.6-1.0) Estimated GFR (Cockcroft-Gault) 59.7 BUN/Creatinine Ratio 37 (6-20) H Glucose Level 101 mg/dL (70-99) H Calcium Level 8.8 mg/dL (8.5-10.1) Total Bilirubin 0.2 mg/dL (0.2-1.0) Aspartate Amino Transferase (AST) 14 U/L (15-37) L Alanine Aminotransferase (ALT) 19 U/L (14-59) Alkaline Phosphatase 111 U/L (46-116) Total Protein 6.4 g/dL (6.4-8.2) Albumin 2.7 g/dL (3.4-5.0) L Albumin/Globulin Ratio 0.7 (1.0-1.7) L POC SARS CoV-2 Antigen Negative (NEGATIVE) Current Medications: Meds: Laboratory Tests Test 12/31/21 06:05 12/31/21 07:31 White Blood Count 7.6 x10^3/uL Red Blood Count 3.93 x10^6/uL Hemoglobin 10.8 g/dL Hematocrit 33.4 % Mean Corpuscular Volume 85 fL Mean Corpuscular Hemoglobin 28 pg Mean Corpuscular Hemoglobin Concent 32 g/dL Red Cell Distribution Width 15.0 % Platelet Count 184 x10^3/uL Neutrophils (%) (Auto) 59 % Lymphocytes (%) (Auto) 31 % Monocytes (%) (Auto) 6 % Eosinophils (%) (Auto) 4 % Basophils (%) (Auto) 1 % Neutrophils # (Auto) 4.4 x10^3uL Lymphocytes # (Auto) 2.4 x10^3/uL Monocytes # (Auto) 0.5 x10^3/uL Eosinophils # (Auto) 0.3 x10^3/uL Basophils # (Auto) 0.0 x10^3/uL Sodium Level 141 mmol/L Potassium Level 4.6 mmol/L Chloride Level 106 mmol/L Carbon Dioxide Level 31 mmol/L Anion Gap 4 Blood Urea Nitrogen 33 mg/dL Creatinine 0.9 mg/dL Estimated GFR (Cockcroft-Gault) 59.7 BUN/Creatinine Ratio 37 Glucose Level 101 mg/dL Calcium Level 8.8 mg/dL Total Bilirubin 0.2 mg/dL Aspartate Amino Transf (AST/SGOT) 14 U/L Alanine Aminotransferase (ALT/SGPT) 19 U/L Alkaline Phosphatase 111 U/L Total Protein 6.4 g/dL Albumin 2.7 g/dL Albumin/Globulin Ratio 0.7 POC SARS CoV-2 Antigen Negative Current Medications Medications (Trade) Dose Ordered Sig/Richard Route PRN Reason Start Time Stop Time Status Last Admin Dose Admin Acetaminophen (Tylenol) 650 mg PRN Q6HRS PRN PO MILD PAIN / TEMP > 100.3'F 09/27/21 15:00 12/30/21 08:07 Mirtazapine (Remeron) 15 mg QHS PO 09/27/21 21:00 12/31/21 20:23 Olanzapine (ZyPREXA ZYDIS) 2.5 mg PRN Q2HRS PRN PO ANXIETY / AGITATION 09/27/21 15:00 11/27/21 20:14 Quetiapine Fumarate (SEROquel) 25 mg BID PO 09/27/21 21:00 12/31/21 20:23 Sertraline HCl (Zoloft) 50 mg HS PO 09/27/21 21:00 12/31/21 20:23 Trazodone HCl (Desyrel) 25 mg HS PO 09/27/21 21:00 10/05/21 18:14 DC 10/04/21 20:06 Melatonin (Melatonin) 3 mg HS PO 09/27/21 21:00 12/31/21 20:23 Metformin HCl (Glucophage) 500 mg BIDWMEALS PO 09/29/21 17:00 12/31/21 17:13 Nystatin (Nystop) 15 sulma STK-MED ONCE TP 10/04/21 09:36 10/04/21 09:36 DC Trazodone HCl (Desyrel) 50 mg HS PO 10/05/21 21:00 12/31/21 20:23 Trazodone HCl (Desyrel) 50 mg PRN QHS PRN PO INSOMNIA 10/05/21 18:15 12/05/21 20:02 Albuterol/ Ipratropium (Combivent Respimat 20-100 Mcg) 1 puff RTQID INH 10/18/21 20:00 12/31/21 20:23 Azithromycin (Zithromax) 500 mg 1X ONCE PO 10/19/21 16:45 10/19/21 16:46 DC 10/19/21 17:03 Azithromycin (Zithromax) 250 mg DAILY PO 10/20/21 09:00 10/24/21 22:00 DC 10/24/21 08:23 Lactobacillus Rhamnosus (Culturelle) 1 cap BID PO 10/21/21 09:00 11/29/21 16:02 DC 11/29/21 08:10 Diclofenac Sodium (Voltaren) 1 sulma TID TP 10/24/21 14:00 11/07/21 12:35 DC 11/06/21 20:18 Prednisone (Prednisone) 60 mg 1X ONCE PO 10/26/21 11:00 10/26/21 11:01 DC 10/26/21 12:17 Diclofenac Sodium (Voltaren) 1 sulma PRN TID PRN TP MUSCLE PAIN 11/07/21 12:45 12/17/21 08:58 Nystatin (Nystop) 1 sulma BID TP 12/13/21 09:00 12/31/21 20:23 Gabapentin (Neurontin) 100 mg DAILYWSUP PO 12/23/21 17:00 12/31/21 17:13 I have reviewed the current psychotropics carefully including drug interactions. Risk benefit ratio favors no change other than as noted in my dictated progress note. Diagnosis: Problems: (1) Impulse control disorder, unspecified (2) Anxiety disorder, unspecified (3) Dementia, vascular, with depression (4) Dementia, vascular, with delusions (5) Dementia in Alzheimer's disease with depression (6) Dementia in Alzheimer's disease with delusions (7) Dementia of the Alzheimer's type with early onset with behavioral disturbance (8) Major neurocognitive disorder SOO BAIRES MD Dec 31, 2021 21:41
[2022-01-01 05:54] VITALS: BP 116/81
--- NOTE | 2022-01-01 06:08 | PDOC ---
Exam Note: [place] Note: This note is for 12/31/2021 covers elements not covered in my initial note. Subjective: The patient was seen individually on 12/31/2021, discussed and reviewed the chart with Liya TANG. The patient slept 8-1/4 hours previous night. Overall she wanted to be out of her room and go to the dayroom, watch television and movies which is an improvement for her. I met with her evening of 12/31/2021. Review of Systems: She was in her wheelchair with her multicoloured blanket around her. No CV, , pulmonary, eye system symptoms on review. Mental Status Exam: The patient is oriented to herself and situation. Speech coherent. Abstraction fair. Computation impaired. Language function intact. Attention span short. Mood and affect is improved. No suicidal or homicidal ideation. Laboratory Data: Reviewed. Impression: Major neurocognitive disorder Alzheimer, vascular, with delusions, depression, behavioral disturbance. Anxiety disorder unspecified. Impulse control disorder unspecified. Plan: No change from initial note. Reviewed drug interactions, risk-benefit ratio. Assessment: Vital Signs/I&O: Vital Signs Date Time Temp Pulse Resp B/P (MAP) Pulse Ox O2 Delivery O2 Flow Rate FiO2 01/01/22 05:54 98.0 69 20 116/81 (93) 94 12/29/21 06:32 Room Air I & O 12/31/21 12/31/21 01/01/22 15:00 23:00 07:00 Intake Total 1060 ml 760 ml Balance 1060 ml 760 ml Labs: Laboratory Tests Test 12/31/21 07:31 POC SARS CoV-2 Antigen Negative (NEGATIVE) Current Medications: I have reviewed the current psychotropics carefully including drug interactions. Risk benefit ratio favors no change other than as noted in my dictated progress note. Diagnosis: Problems: (1) Impulse control disorder, unspecified (2) Anxiety disorder, unspecified (3) Dementia, vascular, with depression (4) Dementia, vascular, with delusions (5) Dementia in Alzheimer's disease with depression (6) Dementia in Alzheimer's disease with delusions (7) Dementia of the Alzheimer's type with early onset with behavioral disturbance (8) Major neurocognitive disorder SOO BAIRES MD Jan 01, 2022 06:08
[2022-01-01] MEDS: metFORMIN 500 MG TABLET PO SCH ×2 (08:36→17:11)
[2022-01-01] MEDS: QUEtiapine 25 MG TABLET. PO SCH ×2 (08:36→20:45)
[2022-01-01] MEDS: IPRATROPIUM/ALBUTEROL 20/100mcg/INH INHALER. INH SCH ×4 (08:38→20:47)
[2022-01-01] MEDS: NYSTATIN TOPICAL POWDER 15GM BOTTLE. TP SCH ×2 (08:38→20:45)
[2022-01-01 15:44] VITALS: BP 123/72
[2022-01-01] MEDS: GABAPENTIN 100 MG CAPSULE. PO SCH (17:11)
[2022-01-01] MEDS: MIRTAZAPINE 15 MG TABLET PO SCH (20:46)
[2022-01-01] MEDS: SERTRALINE 50 MG TABLET. PO SCH (20:46)
[2022-01-01] MEDS: traZODone 50 MG TABLET. PO SCH (20:46)
[2022-01-01] MEDS: MELATONIN 3 MG TABLET PO SCH (20:46)
--- NOTE | 2022-01-01 21:26 | PDOC ---
Exam Note: [place] Note: Please also refer to the separate dictated note~for this date of service dictated separately.~Patient seen individually. Discussed the patient with Nursing staff reviewed the chart.~Reviewed interim history and current functioning. Reviewed vital signs,~Labs/ Radiology~and current medications noted below. Continue current treatment with the changes noted in the dictated addendum note Assessment: Vital Signs/I&O: Vital Signs Date Time Temp Pulse Resp B/P (MAP) Pulse Ox O2 Delivery O2 Flow Rate FiO2 01/01/22 15:44 98.0 79 18 123/72 (89) 98 Room Air I & O 12/31/21 12/31/21 01/01/22 15:00 23:00 07:00 Intake Total 1060 ml 760 ml Balance 1060 ml 760 ml Current Medications: Meds: Current Medications Medications (Trade) Dose Ordered Sig/Richard Route PRN Reason Start Time Stop Time Status Last Admin Dose Admin Acetaminophen (Tylenol) 650 mg PRN Q6HRS PRN PO MILD PAIN / TEMP > 100.3'F 09/27/21 15:00 12/30/21 08:07 Mirtazapine (Remeron) 15 mg QHS PO 09/27/21 21:00 01/01/22 20:46 Olanzapine (ZyPREXA ZYDIS) 2.5 mg PRN Q2HRS PRN PO ANXIETY / AGITATION 09/27/21 15:00 11/27/21 20:14 Quetiapine Fumarate (SEROquel) 25 mg BID PO 09/27/21 21:00 01/01/22 20:45 Sertraline HCl (Zoloft) 50 mg HS PO 09/27/21 21:00 01/01/22 20:46 Trazodone HCl (Desyrel) 25 mg HS PO 09/27/21 21:00 10/05/21 18:14 DC 10/04/21 20:06 Melatonin (Melatonin) 3 mg HS PO 09/27/21 21:00 01/01/22 20:46 Metformin HCl (Glucophage) 500 mg BIDWMEALS PO 09/29/21 17:00 01/01/22 17:11 Nystatin (Nystop) 15 sulma STK-MED ONCE TP 10/04/21 09:36 10/04/21 09:36 DC Trazodone HCl (Desyrel) 50 mg HS PO 10/05/21 21:00 01/01/22 20:46 Trazodone HCl (Desyrel) 50 mg PRN QHS PRN PO INSOMNIA 10/05/21 18:15 12/05/21 20:02 Albuterol/ Ipratropium (Combivent Respimat 20-100 Mcg) 1 puff RTQID INH 10/18/21 20:00 01/01/22 20:47 Azithromycin (Zithromax) 500 mg 1X ONCE PO 10/19/21 16:45 10/19/21 16:46 DC 10/19/21 17:03 Azithromycin (Zithromax) 250 mg DAILY PO 10/20/21 09:00 10/24/21 22:00 DC 10/24/21 08:23 Lactobacillus Rhamnosus (Culturelle) 1 cap BID PO 10/21/21 09:00 11/29/21 16:02 DC 11/29/21 08:10 Diclofenac Sodium (Voltaren) 1 sulma TID TP 10/24/21 14:00 11/07/21 12:35 DC 11/06/21 20:18 Prednisone (Prednisone) 60 mg 1X ONCE PO 10/26/21 11:00 10/26/21 11:01 DC 10/26/21 12:17 Diclofenac Sodium (Voltaren) 1 sulma PRN TID PRN TP MUSCLE PAIN 11/07/21 12:45 12/17/21 08:58 Nystatin (Nystop) 1 sulma BID TP 12/13/21 09:00 01/01/22 20:45 Gabapentin (Neurontin) 100 mg DAILYWSUP PO 12/23/21 17:00 01/01/22 17:11 I have reviewed the current psychotropics carefully including drug interactions. Risk benefit ratio favors no change other than as noted in my dictated progress note. Diagnosis: Problems: (1) Impulse control disorder, unspecified (2) Anxiety disorder, unspecified (3) Dementia, vascular, with depression (4) Dementia, vascular, with delusions (5) Dementia in Alzheimer's disease with depression (6) Dementia in Alzheimer's disease with delusions (7) Dementia of the Alzheimer's type with early onset with behavioral disturbance (8) Major neurocognitive disorder SOO BAIRES MD Jan 01, 2022 21:26
[2022-01-02 06:23] VITALS: BP 119/69
[2022-01-02] MEDS: IPRATROPIUM/ALBUTEROL 20/100mcg/INH INHALER. INH SCH ×4 (08:00→20:38)
[2022-01-02] MEDS: metFORMIN 500 MG TABLET PO SCH ×2 (08:19→17:03)
[2022-01-02] MEDS: QUEtiapine 25 MG TABLET. PO SCH ×2 (08:20→20:37)
--- NOTE | 2022-01-02 08:42 | PDOC ---
Exam Note: [place] Note: This note is for 01/01/2022 covers elements not covered in my initial note. Subjective: The patient was seen individually on 01/01/2022, discussed and reviewed the chart with Nikia TANG. The patient slept 7 hours previous night. She is doing reasonably well, somewhat agitated when certain staff members were not there to assist her with showers. She was unhappy with the one who was assisting her. Other than this, she has been fairly pleasant. I met with her in her room. Review of Systems: She was in her wheelchair. No CV, , pulmonary, eye system symptoms on review. Mental Status Exam: The patient is oriented to herself and situation. Speech coherent. Abstraction fair. Computation impaired. Language function intact. Attention span short. Mood and affect is improved. No suicidal or homicidal ideation. Laboratory Data: Reviewed. Impression: Major neurocognitive disorder Alzheimer, vascular, with delusions, depression, behavioral disturbance. Anxiety disorder unspecified. Impulse control disorder unspecified. Plan: No change from initial note. Reviewed drug interactions, risk-benefit ratio. Assessment: Vital Signs/I&O: Vital Signs Date Time Temp Pulse Resp B/P (MAP) Pulse Ox O2 Delivery O2 Flow Rate FiO2 01/02/22 06:23 97.7 69 18 119/69 (86) 92 Room Air I & O 01/01/22 01/01/22 01/02/22 15:00 23:00 07:00 Intake Total 840 ml 720 ml Balance 840 ml 720 ml Current Medications: I have reviewed the current psychotropics carefully including drug interactions. Risk benefit ratio favors no change other than as noted in my dictated progress note. Diagnosis: Problems: (1) Impulse control disorder, unspecified (2) Anxiety disorder, unspecified (3) Dementia, vascular, with depression (4) Dementia, vascular, with delusions (5) Dementia in Alzheimer's disease with depression (6) Dementia in Alzheimer's disease with delusions (7) Dementia of the Alzheimer's type with early onset with behavioral disturbance (8) Major neurocognitive disorder SOO BAIRES MD Jan 02, 2022 08:42
[2022-01-02] MEDS: NYSTATIN TOPICAL POWDER 15GM BOTTLE. TP SCH ×2 (09:00→20:38)
[2022-01-02 15:37] VITALS: BP 129/75
[2022-01-02] MEDS: GABAPENTIN 100 MG CAPSULE. PO SCH (17:03)
[2022-01-02] MEDS: traZODone 50 MG TABLET. PO SCH (20:36)
[2022-01-02] MEDS: MELATONIN 3 MG TABLET PO SCH (20:36)
[2022-01-02] MEDS: MIRTAZAPINE 15 MG TABLET PO SCH (20:37)
[2022-01-02] MEDS: SERTRALINE 50 MG TABLET. PO SCH (20:37)
--- NOTE | 2022-01-02 22:03 | PDOC ---
Exam Note: [place] Note: Please also refer to the separate dictated note~for this date of service dictated separately.~Patient seen individually. Discussed the patient with Nursing staff reviewed the chart.~Reviewed interim history and current functioning. Reviewed vital signs,~Labs/ Radiology~and current medications noted below. Continue current treatment with the changes noted in the dictated addendum note Assessment: Vital Signs/I&O: Vital Signs Date Time Temp Pulse Resp B/P (MAP) Pulse Ox O2 Delivery O2 Flow Rate FiO2 01/02/22 15:37 98.6 70 20 129/75 (93) 94 01/02/22 06:23 Room Air I & O 01/01/22 01/01/22 01/02/22 15:00 23:00 07:00 Intake Total 840 ml 720 ml Balance 840 ml 720 ml Current Medications: Meds: Current Medications Medications (Trade) Dose Ordered Sig/Richard Route PRN Reason Start Time Stop Time Status Last Admin Dose Admin Acetaminophen (Tylenol) 650 mg PRN Q6HRS PRN PO MILD PAIN / TEMP > 100.3'F 09/27/21 15:00 12/30/21 08:07 Mirtazapine (Remeron) 15 mg QHS PO 09/27/21 21:00 01/02/22 20:37 Olanzapine (ZyPREXA ZYDIS) 2.5 mg PRN Q2HRS PRN PO ANXIETY / AGITATION 09/27/21 15:00 11/27/21 20:14 Quetiapine Fumarate (SEROquel) 25 mg BID PO 09/27/21 21:00 01/02/22 20:37 Sertraline HCl (Zoloft) 50 mg HS PO 09/27/21 21:00 01/02/22 20:37 Trazodone HCl (Desyrel) 25 mg HS PO 09/27/21 21:00 10/05/21 18:14 DC 10/04/21 20:06 Melatonin (Melatonin) 3 mg HS PO 09/27/21 21:00 01/02/22 20:36 Metformin HCl (Glucophage) 500 mg BIDWMEALS PO 09/29/21 17:00 01/02/22 17:03 Nystatin (Nystop) 15 sulma STK-MED ONCE TP 10/04/21 09:36 10/04/21 09:36 DC Trazodone HCl (Desyrel) 50 mg HS PO 10/05/21 21:00 01/02/22 20:36 Trazodone HCl (Desyrel) 50 mg PRN QHS PRN PO INSOMNIA 10/05/21 18:15 12/05/21 20:02 Albuterol/ Ipratropium (Combivent Respimat 20-100 Mcg) 1 puff RTQID INH 10/18/21 20:00 01/02/22 20:38 Azithromycin (Zithromax) 500 mg 1X ONCE PO 10/19/21 16:45 10/19/21 16:46 DC 10/19/21 17:03 Azithromycin (Zithromax) 250 mg DAILY PO 10/20/21 09:00 10/24/21 22:00 DC 10/24/21 08:23 Lactobacillus Rhamnosus (Culturelle) 1 cap BID PO 10/21/21 09:00 11/29/21 16:02 DC 11/29/21 08:10 Diclofenac Sodium (Voltaren) 1 sulma TID TP 10/24/21 14:00 11/07/21 12:35 DC 11/06/21 20:18 Prednisone (Prednisone) 60 mg 1X ONCE PO 10/26/21 11:00 10/26/21 11:01 DC 10/26/21 12:17 Diclofenac Sodium (Voltaren) 1 sulma PRN TID PRN TP MUSCLE PAIN 11/07/21 12:45 12/17/21 08:58 Nystatin (Nystop) 1 sulma BID TP 12/13/21 09:00 01/02/22 20:38 Gabapentin (Neurontin) 100 mg DAILYWSUP PO 12/23/21 17:00 01/02/22 17:03 I have reviewed the current psychotropics carefully including drug interactions. Risk benefit ratio favors no change other than as noted in my dictated progress note. Diagnosis: Problems: (1) Impulse control disorder, unspecified (2) Anxiety disorder, unspecified (3) Dementia, vascular, with depression (4) Dementia, vascular, with delusions (5) Dementia in Alzheimer's disease with depression (6) Dementia in Alzheimer's disease with delusions (7) Dementia of the Alzheimer's type with early onset with behavioral disturbance (8) Major neurocognitive disorder SOO BAIRES MD Jan 02, 2022 22:03
[2022-01-03 06:46] VITALS: BP 153/71
--- NOTE | 2022-01-03 08:50 | PDOC ---
Exam Note: [place] Note: This note is a late entry for 01/02/2022 covers elements not covered in my initial note. Subjective: The patient was seen individually on 01/02/2022, discussed and reviewed the chart with Joni TANG. The patient slept 7-3/4 hours previous night. I met with her in her room. She is doing reasonably well, pleasant. Review of Systems: No CV, , pulmonary, eye system symptoms on review. Mental Status Exam: The patient is oriented to herself and situation. She seemed a little tired but still pleasant, cooperative with slight sense of humor. Speech coherent. Abstraction fair. Computation impaired. Language function intact. Attention span short. Mood and affect is improved. No suic idal or homicidal ideation. Laboratory Data: Reviewed. Impression: Major neurocognitive disorder Alzheimer, vascular, with delusions, depression, behavioral disturbance. Anxiety disorder unspecified. Impulse control disorder unspecified. Plan: No change from initial note. Reviewed drug interactions, risk-benefit ratio. Assessment: Vital Signs/I&O: Vital Signs Date Time Temp Pulse Resp B/P (MAP) Pulse Ox O2 Delivery O2 Flow Rate FiO2 01/03/22 06:46 97.6 71 17 153/71 (98) 91 01/02/22 06:23 Room Air I & O 01/02/22 01/02/22 01/03/22 15:00 23:00 07:00 Intake Total 600 ml 600 ml Balance 600 ml 600 ml Current Medications: I have reviewed the current psychotropics carefully including drug interactions. Risk benefit ratio favors no change other than as noted in my dictated progress note. Diagnosis: Problems: (1) Impulse control disorder, unspecified (2) Anxiety disorder, unspecified (3) Dementia, vascular, with depression (4) Dementia, vascular, with delusions (5) Dementia in Alzheimer's disease with depression (6) Dementia in Alzheimer's disease with delusions (7) Dementia of the Alzheimer's type with early onset with behavioral disturbance (8) Major neurocognitive disorder SOO BAIRES MD Jan 03, 2022 08:50
[2022-01-03] MEDS: NYSTATIN TOPICAL POWDER 15GM BOTTLE. TP SCH ×2 (09:00→20:39)
[2022-01-03] MEDS: metFORMIN 500 MG TABLET PO SCH ×2 (09:39→17:16)
[2022-01-03] MEDS: IPRATROPIUM/ALBUTEROL 20/100mcg/INH INHALER. INH SCH ×4 (09:39→20:39)
[2022-01-03] MEDS: QUEtiapine 25 MG TABLET. PO SCH ×2 (09:39→20:36)
[2022-01-03] MEDS: GABAPENTIN 100 MG CAPSULE. PO SCH (17:16)
[2022-01-03 17:19] VITALS: BP 104/53
[2022-01-03] MEDS: traZODone 50 MG TABLET. PO SCH (20:36)
[2022-01-03] MEDS: MELATONIN 3 MG TABLET PO SCH (20:36)
[2022-01-03] MEDS: MIRTAZAPINE 15 MG TABLET PO SCH (20:36)
[2022-01-03] MEDS: SERTRALINE 50 MG TABLET. PO SCH (20:37)
--- NOTE | 2022-01-03 21:34 | PDOC ---
Exam Note: [place] Note: Please also refer to the separate dictated note~for this date of service dictated separately.~Patient seen individually. Discussed the patient with Nursing staff reviewed the chart.~Reviewed interim history and current functioning. Reviewed vital signs,~Labs/ Radiology~and current medications noted below. Continue current treatment with the changes noted in the dictated addendum note Assessment: Vital Signs/I&O: Vital Signs Date Time Temp Pulse Resp B/P (MAP) Pulse Ox O2 Delivery O2 Flow Rate FiO2 01/03/22 17:19 97.4 69 16 104/53 (70) 93 01/02/22 06:23 Room Air I & O 01/02/22 01/02/22 01/03/22 15:00 23:00 07:00 Intake Total 600 ml 600 ml Balance 600 ml 600 ml Current Medications: Meds: Current Medications Medications (Trade) Dose Ordered Sig/Richard Route PRN Reason Start Time Stop Time Status Last Admin Dose Admin Acetaminophen (Tylenol) 650 mg PRN Q6HRS PRN PO MILD PAIN / TEMP > 100.3'F 09/27/21 15:00 12/30/21 08:07 Mirtazapine (Remeron) 15 mg QHS PO 09/27/21 21:00 01/03/22 20:36 Olanzapine (ZyPREXA ZYDIS) 2.5 mg PRN Q2HRS PRN PO ANXIETY / AGITATION 09/27/21 15:00 11/27/21 20:14 Quetiapine Fumarate (SEROquel) 25 mg BID PO 09/27/21 21:00 01/03/22 20:36 Sertraline HCl (Zoloft) 50 mg HS PO 09/27/21 21:00 01/03/22 20:37 Trazodone HCl (Desyrel) 25 mg HS PO 09/27/21 21:00 10/05/21 18:14 DC 10/04/21 20:06 Melatonin (Melatonin) 3 mg HS PO 09/27/21 21:00 01/03/22 20:36 Metformin HCl (Glucophage) 500 mg BIDWMEALS PO 09/29/21 17:00 01/03/22 17:16 Nystatin (Nystop) 15 sulma STK-MED ONCE TP 10/04/21 09:36 10/04/21 09:36 DC Trazodone HCl (Desyrel) 50 mg HS PO 10/05/21 21:00 01/03/22 20:36 Trazodone HCl (Desyrel) 50 mg PRN QHS PRN PO INSOMNIA 10/05/21 18:15 12/05/21 20:02 Albuterol/ Ipratropium (Combivent Respimat 20-100 Mcg) 1 puff RTQID INH 10/18/21 20:00 01/03/22 20:39 Azithromycin (Zithromax) 500 mg 1X ONCE PO 10/19/21 16:45 10/19/21 16:46 DC 10/19/21 17:03 Azithromycin (Zithromax) 250 mg DAILY PO 10/20/21 09:00 10/24/21 22:00 DC 10/24/21 08:23 Lactobacillus Rhamnosus (Culturelle) 1 cap BID PO 10/21/21 09:00 11/29/21 16:02 DC 11/29/21 08:10 Diclofenac Sodium (Voltaren) 1 sulma TID TP 10/24/21 14:00 11/07/21 12:35 DC 11/06/21 20:18 Prednisone (Prednisone) 60 mg 1X ONCE PO 10/26/21 11:00 10/26/21 11:01 DC 10/26/21 12:17 Diclofenac Sodium (Voltaren) 1 sulma PRN TID PRN TP MUSCLE PAIN 11/07/21 12:45 12/17/21 08:58 Nystatin (Nystop) 1 sulma BID TP 12/13/21 09:00 01/03/22 20:39 Gabapentin (Neurontin) 100 mg DAILYWSUP PO 12/23/21 17:00 01/03/22 17:16 I have reviewed the current psychotropics carefully including drug interactions. Risk benefit ratio favors no change other than as noted in my dictated progress note. Diagnosis: Problems: (1) Impulse control disorder, unspecified (2) Anxiety disorder, unspecified (3) Dementia, vascular, with depression (4) Dementia, vascular, with delusions (5) Dementia in Alzheimer's disease with depression (6) Dementia in Alzheimer's disease with delusions (7) Dementia of the Alzheimer's type with early onset with behavioral disturbance (8) Major neurocognitive disorder SOO BAIRES MD Jan 03, 2022 21:34
[2022-01-04 06:15] VITALS: BP 126/53
[2022-01-04] MEDS: metFORMIN 500 MG TABLET PO SCH ×2 (08:33→17:20)
[2022-01-04] MEDS: NYSTATIN TOPICAL POWDER 15GM BOTTLE. TP SCH ×2 (08:33→20:37)
[2022-01-04] MEDS: IPRATROPIUM/ALBUTEROL 20/100mcg/INH INHALER. INH SCH ×4 (08:33→20:36)
[2022-01-04] MEDS: QUEtiapine 25 MG TABLET. PO SCH ×2 (08:33→20:37)
--- NOTE | 2022-01-04 09:00 | PDOC ---
Exam Note: [place] Note: This note is a late entry for 01/03/2022 covers elements not covered in my initial note. Subjective: The patient was seen individually on 01/03/2022, discussed and reviewed the chart with Lucy TANG. The patient slept 7-3/4 hours previous night. I met with her in the dining room. She is feeling herself, but not happy with the supper. Otherwise less agitated, improved mood lability. Review of Systems: No CV, , pulmonary, eye system symptoms on review. Mental Status Exam: The patient is oriented to herself and situation. Speech coherent. Abstraction fair. Computation impaired. Language function intact. Attention span short. Mood and affect is improved. Laboratory Data: Reviewed. Impression: Major neurocognitive disorder Alzheimer, vascular, with delusions, depression, behavioral disturbance. Anxiety disorder unspecified. Impulse control disorder unspecified. Plan: No change from initial note. Reviewed drug interactions, risk-benefit ratio. Assessment: Vital Signs/I&O: Vital Signs Date Time Temp Pulse Resp B/P (MAP) Pulse Ox O2 Delivery O2 Flow Rate FiO2 01/04/22 06:15 97.2 62 18 126/53 (77) 93 01/02/22 06:23 Room Air I & O 01/03/22 01/03/22 01/04/22 15:00 23:00 07:00 Intake Total 610 ml 600 ml Balance 610 ml 600 ml Current Medications: I have reviewed the current psychotropics carefully including drug interactions. Risk benefit ratio favors no change other than as noted in my dictated progress note. Diagnosis: Problems: (1) Impulse control disorder, unspecified (2) Anxiety disorder, unspecified (3) Dementia, vascular, with depression (4) Dementia, vascular, with delusions (5) Dementia in Alzheimer's disease with depression (6) Dementia in Alzheimer's disease with delusions (7) Dementia of the Alzheimer's type with early onset with behavioral di sturbance (8) Major neurocognitive disorder SOO BAIRES MD Jan 04, 2022 09:00
[2022-01-04 15:46] VITALS: BP 133/59
[2022-01-04] MEDS: GABAPENTIN 100 MG CAPSULE. PO SCH (17:20)
[2022-01-04] MEDS: SERTRALINE 50 MG TABLET. PO SCH (20:36)
[2022-01-04] MEDS: traZODone 50 MG TABLET. PO SCH (20:36)
[2022-01-04] MEDS: MIRTAZAPINE 15 MG TABLET PO SCH (20:36)
[2022-01-04] MEDS: MELATONIN 3 MG TABLET PO SCH (20:36)
--- NOTE | 2022-01-04 21:51 | PDOC ---
Exam Note: [place] Note: Please also refer to the separate dictated note~for this date of service dictated separately.~Patient seen individually. Discussed the patient with Nursing staff reviewed the chart.~Reviewed interim history and current functioning. Reviewed vital signs,~Labs/ Radiology~and current medications noted below. Continue current treatment with the changes noted in the dictated addendum note Assessment: Vital Signs/I&O: Vital Signs Date Time Temp Pulse Resp B/P (MAP) Pulse Ox O2 Delivery O2 Flow Rate FiO2 01/04/22 15:46 97.6 92 18 133/59 (83) 97 01/02/22 06:23 Room Air I & O 01/03/22 01/03/22 01/04/22 15:00 23:00 07:00 Intake Total 610 ml 600 ml Balance 610 ml 600 ml Current Medications: Meds: Current Medications Medications (Trade) Dose Ordered Sig/Richard Route PRN Reason Start Time Stop Time Status Last Admin Dose Admin Acetaminophen (Tylenol) 650 mg PRN Q6HRS PRN PO MILD PAIN / TEMP > 100.3'F 09/27/21 15:00 12/30/21 08:07 Mirtazapine (Remeron) 15 mg QHS PO 09/27/21 21:00 01/04/22 20:36 Olanzapine (ZyPREXA ZYDIS) 2.5 mg PRN Q2HRS PRN PO ANXIETY / AGITATION 09/27/21 15:00 11/27/21 20:14 Quetiapine Fumarate (SEROquel) 25 mg BID PO 09/27/21 21:00 01/04/22 20:37 Sertraline HCl (Zoloft) 50 mg HS PO 09/27/21 21:00 01/04/22 20:36 Trazodone HCl (Desyrel) 25 mg HS PO 09/27/21 21:00 10/05/21 18:14 DC 10/04/21 20:06 Melatonin (Melatonin) 3 mg HS PO 09/27/21 21:00 01/04/22 20:36 Metformin HCl (Glucophage) 500 mg BIDWMEALS PO 09/29/21 17:00 01/04/22 17:20 Nystatin (Nystop) 15 sulma STK-MED ONCE TP 10/04/21 09:36 10/04/21 09:36 DC Trazodone HCl (Desyrel) 50 mg HS PO 10/05/21 21:00 01/04/22 20:36 Trazodone HCl (Desyrel) 50 mg PRN QHS PRN PO INSOMNIA 10/05/21 18:15 12/05/21 20:02 Albuterol/ Ipratropium (Combivent Respimat 20-100 Mcg) 1 puff RTQID INH 10/18/21 20:00 01/04/22 20:36 Azithromycin (Zithromax) 500 mg 1X ONCE PO 10/19/21 16:45 10/19/21 16:46 DC 10/19/21 17:03 Azithromycin (Zithromax) 250 mg DAILY PO 10/20/21 09:00 10/24/21 22:00 DC 10/24/21 08:23 Lactobacillus Rhamnosus (Culturelle) 1 cap BID PO 10/21/21 09:00 11/29/21 16:02 DC 11/29/21 08:10 Diclofenac Sodium (Voltaren) 1 sulma TID TP 10/24/21 14:00 11/07/21 12:35 DC 11/06/21 20:18 Prednisone (Prednisone) 60 mg 1X ONCE PO 10/26/21 11:00 10/26/21 11:01 DC 10/26/21 12:17 Diclofenac Sodium (Voltaren) 1 sulma PRN TID PRN TP MUSCLE PAIN 11/07/21 12:45 12/17/21 08:58 Nystatin (Nystop) 1 sulma BID TP 12/13/21 09:00 01/04/22 20:37 Gabapentin (Neurontin) 100 mg DAILYWSUP PO 12/23/21 17:00 01/04/22 17:20 I have reviewed the current psychotropics carefully including drug interactions. Risk benefit ratio favors no change other than as noted in my dictated progress note. Diagnosis: Problems: (1) Impulse control disorder, unspecified (2) Anxiety disorder, unspecified (3) Dementia, vascular, with depression (4) Dementia, vascular, with delusions (5) Dementia in Alzheimer's disease with depression (6) Dementia in Alzheimer's disease with delusions (7) Dementia of the Alzheimer's type with early onset with behavioral disturbance (8) Major neurocognitive disorder SOO BAIRES MD Jan 04, 2022 21:51
[2022-01-05 06:21] VITALS: BP 145/72
[2022-01-05] MEDS: IPRATROPIUM/ALBUTEROL 20/100mcg/INH INHALER. INH SCH ×4 (08:00→20:04)
[2022-01-05] MEDS: NYSTATIN TOPICAL POWDER 15GM BOTTLE. TP SCH ×2 (08:14→20:04)
[2022-01-05] MEDS: QUEtiapine 25 MG TABLET. PO SCH ×2 (08:14→20:05)
[2022-01-05] MEDS: metFORMIN 500 MG TABLET PO SCH ×2 (08:14→17:10)
[2022-01-05 15:42] VITALS: BP 121/76
[2022-01-05] MEDS: GABAPENTIN 100 MG CAPSULE. PO SCH (17:10)
[2022-01-05] MEDS: MIRTAZAPINE 15 MG TABLET PO SCH (20:04)
[2022-01-05] MEDS: SERTRALINE 50 MG TABLET. PO SCH (20:04)
[2022-01-05] MEDS: MELATONIN 3 MG TABLET PO SCH (20:04)
[2022-01-05] MEDS: traZODone 50 MG TABLET. PO SCH (20:05)
--- NOTE | 2022-01-05 21:31 | PDOC ---
Exam Note: [place] Note: Please also refer to the separate dictated note~for this date of service dictated separately.~Patient seen individually. Discussed the patient with Nursing staff reviewed the chart.~Reviewed interim history and current functioning. Reviewed vital signs,~Labs/ Radiology~and current medications noted below. Continue current treatment with the changes noted in the dictated addendum note Assessment: Vital Signs/I&O: Vital Signs Date Time Temp Pulse Resp B/P (MAP) Pulse Ox O2 Delivery O2 Flow Rate FiO2 01/05/22 15:42 97.5 74 16 121/76 (91) 95 Room Air I & O 01/04/22 01/04/22 01/05/22 15:00 23:00 07:00 Intake Total 600 ml 360 ml Balance 600 ml 360 ml Current Medications: Meds: Current Medications Medications (Trade) Dose Ordered Sig/Richard Route PRN Reason Start Time Stop Time Status Last Admin Dose Admin Acetaminophen (Tylenol) 650 mg PRN Q6HRS PRN PO MILD PAIN / TEMP > 100.3'F 09/27/21 15:00 12/30/21 08:07 Mirtazapine (Remeron) 15 mg QHS PO 09/27/21 21:00 01/05/22 20:04 Olanzapine (ZyPREXA ZYDIS) 2.5 mg PRN Q2HRS PRN PO ANXIETY / AGITATION 09/27/21 15:00 11/27/21 20:14 Quetiapine Fumarate (SEROquel) 25 mg BID PO 09/27/21 21:00 01/05/22 20:05 Sertraline HCl (Zoloft) 50 mg HS PO 09/27/21 21:00 01/05/22 20:04 Trazodone HCl (Desyrel) 25 mg HS PO 09/27/21 21:00 10/05/21 18:14 DC 10/04/21 20:06 Melatonin (Melatonin) 3 mg HS PO 09/27/21 21:00 01/05/22 20:04 Metformin HCl (Glucophage) 500 mg BIDWMEALS PO 09/29/21 17:00 01/05/22 17:10 Nystatin (Nystop) 15 sulma STK-MED ONCE TP 10/04/21 09:36 10/04/21 09:36 DC Trazodone HCl (Desyrel) 50 mg HS PO 10/05/21 21:00 01/05/22 20:05 Trazodone HCl (Desyrel) 50 mg PRN QHS PRN PO INSOMNIA 10/05/21 18:15 12/05/21 20:02 Albuterol/ Ipratropium (Combivent Respimat 20-100 Mcg) 1 puff RTQID INH 10/18/21 20:00 01/05/22 20:04 Azithromycin (Zithromax) 500 mg 1X ONCE PO 10/19/21 16:45 10/19/21 16:46 DC 10/19/21 17:03 Azithromycin (Zithromax) 250 mg DAILY PO 10/20/21 09:00 10/24/21 22:00 DC 10/24/21 08:23 Lactobacillus Rhamnosus (Culturelle) 1 cap BID PO 10/21/21 09:00 11/29/21 16:02 DC 11/29/21 08:10 Diclofenac Sodium (Voltaren) 1 sulma TID TP 10/24/21 14:00 11/07/21 12:35 DC 11/06/21 20:18 Prednisone (Prednisone) 60 mg 1X ONCE PO 10/26/21 11:00 10/26/21 11:01 DC 10/26/21 12:17 Diclofenac Sodium (Voltaren) 1 sulma PRN TID PRN TP MUSCLE PAIN 11/07/21 12:45 12/17/21 08:58 Nystatin (Nystop) 1 sulma BID TP 12/13/21 09:00 01/05/22 20:04 Gabapentin (Neurontin) 100 mg DAILYWSUP PO 12/23/21 17:00 01/05/22 17:10 I have reviewed the current psychotropics carefully including drug interactions. Risk benefit ratio favors no change other than as noted in my dictated progress note. Diagnosis: Problems: (1) Impulse control disorder, unspecified (2) Anxiety disorder, unspecified (3) Dementia, vascular, with depression (4) Dementia, vascular, with delusions (5) Dementia in Alzheimer's disease with depression (6) Dementia in Alzheimer's disease with delusions (7) Dementia of the Alzheimer's type with early onset with behavioral disturbance (8) Major neurocognitive disorder SOO BAIRES MD January 05, 2022 21:31
[2022-01-06 06:13] VITALS: BP 133/58
--- NOTE | 2022-01-06 06:41 | PDOC ---
Exam Note: [place] Note: This note is a late entry for 01/04/2022 covers elements not covered in my initial note. Subjective: The patient was seen individually on 01/04/2022, discussed and reviewed the chart with Debbie TANG. The patient slept 6-1/4 hours previous night. Overall she remains withdrawn intermittently. She was seen in her room. She is wanting assistance to get into bed and nursing aid will be getting to her shortly. Review of Systems: No CV, , pulmonary, eye system symptoms on review. Mental Status Exam: The patient is oriented to herself and situation. Speech coherent. Abstraction fair. Computation impaired. Language function intact. Attention span short. Mood and affect is improved. Laboratory Data: Reviewed. Impression: Major neurocognitive disorder Alzheimer, vascular, with delusions, depression, behavioral disturbance. Anxiety disorder unspecified. Impulse control disorder unspecified. Plan: No change from initial note. Reviewed drug interactions, risk-benefit ratio. Assessment: Vital Signs/I&O: Vital Signs Date Time Temp Pulse Resp B/P (MAP) Pulse Ox O2 Delivery O2 Flow Rate FiO2 01/06/22 06:13 96.6 69 18 133/58 (83) 93 01/05/22 15:42 Room Air I & O 01/05/22 01/05/22 01/06/22 15:00 23:00 07:00 Intake Total 720 ml 360 ml Balance 720 ml 360 ml Current Medications: I have reviewed the current psychotropics carefully including drug interactions. Risk benefit ratio favors no change other than as noted in my dictated progress note. Diagnosis: Problems: (1) Impulse control disorder, unspecified (2) Anxiety disorder, unspecified (3) Dementia, vascular, with depression (4) Dementia, vascular, with delusions (5) Dementia in Alzheimer's disease with depression (6) Dementia in Alzheimer's disease with delusions (7) Dementia of the Alzheimer's type with early onset with behavioral disturbance (8) Major neurocognitive disorder SOO BAIRES MD January 06, 2022 06:41
--- NOTE | 2022-01-06 06:55 | PDOC ---
Exam Note: [place] Note: This note is a late entry for 01/05/2022 covers elements not covered in my initial note. Subjective: The patient was seen individually on 01/05/2022, discussed and reviewed the chart with Debbie TANG. The patient slept 8-1/2 hours previous night. Her niece reportedly called and talked to the patient at some length today. There is some family dynamics and guardianship is being pursued to assist with placement. Review of Systems: No CV, , pulmonary, eye system symptoms on review. Mental Status Exam: The patient is oriented to herself and situation. Speech coherent. Abstraction fair. Computation impaired. Language function intact. Attention span short. Mood and affect is improved. Laboratory Data: Reviewed. Impression: Major neurocognitive disorder Alzheimer, vascular, with delusions, depression, behavioral disturbance. Anxiety disorder unspecified. Impulse control disorder unspecified. Plan: No change from initial note. Reviewed drug interactions, risk-benefit ratio. Assessment: Vital Signs/I&O: Vital Signs Date Time Temp Pulse Resp B/P (MAP) Pulse Ox O2 Delivery O2 Flow Rate FiO2 01/06/22 06:13 96.6 69 18 133/58 (83) 93 01/05/22 15:42 Room Air I & O 01/05/22 01/05/22 01/06/22 15:00 23:00 07:00 Intake Total 720 ml 360 ml Balance 720 ml 360 ml Current Medications: I have reviewed the current psychotropics carefully including drug interactions. Risk benefit ratio favors no change other than as noted in my dictated progress note. Diagnosis: Problems: (1) Impulse control disorder, unspecified (2) Anxiety disorder, unspecified (3) Dementia, vascular, with depression (4) Dementia, vascular, with delusions (5) Dementia in Alzheimer's disease with depression (6) Dementia in Alzheimer's disease with delusions (7) Dementia of the Alzheimer's type with early onset with behavioral disturbance (8) Major neurocognitive disorder SOO BAIRES MD January 06, 2022 06:55
[2022-01-06] MEDS: metFORMIN 500 MG TABLET PO SCH ×2 (08:36→17:15)
[2022-01-06] MEDS: QUEtiapine 25 MG TABLET. PO SCH ×2 (08:36→19:58)
[2022-01-06] MEDS: IPRATROPIUM/ALBUTEROL 20/100mcg/INH INHALER. INH SCH ×4 (08:37→19:58)
[2022-01-06] MEDS: NYSTATIN TOPICAL POWDER 15GM BOTTLE. TP SCH ×2 (08:37→19:59)
[2022-01-06 15:42] VITALS: BP 125/78
[2022-01-06] MEDS: GABAPENTIN 100 MG CAPSULE. PO SCH (17:15)
[2022-01-06] MEDS: MELATONIN 3 MG TABLET PO SCH (19:58)
[2022-01-06] MEDS: MIRTAZAPINE 15 MG TABLET PO SCH (19:58)
[2022-01-06] MEDS: SERTRALINE 50 MG TABLET. PO SCH (19:59)
[2022-01-06] MEDS: traZODone 50 MG TABLET. PO SCH (19:59)
--- NOTE | 2022-01-06 21:34 | PDOC ---
Exam Note: [place] Note: Please also refer to the separate dictated note~for this date of service dictated separately.~Patient seen individually. Discussed the patient with Nursing staff reviewed the chart.~Reviewed interim history and current functioning. Reviewed vital signs,~Labs/ Radiology~and current medications noted below. Continue current treatment with the changes noted in the dictated addendum note Assessment: Vital Signs/I&O: Vital Signs Date Time Temp Pulse Resp B/P (MAP) Pulse Ox O2 Delivery O2 Flow Rate FiO2 01/06/22 15:42 98.1 75 18 125/78 (94) 95 01/05/22 15:42 Room Air I & O 01/05/22 01/05/22 01/06/22 15:00 23:00 07:00 Intake Total 720 ml 360 ml Balance 720 ml 360 ml Current Medications: Meds: Current Medications Medications (Trade) Dose Ordered Sig/Richard Route PRN Reason Start Time Stop Time Status Last Admin Dose Admin Acetaminophen (Tylenol) 650 mg PRN Q6HRS PRN PO MILD PAIN / TEMP > 100.3'F 09/27/21 15:00 12/30/21 08:07 Mirtazapine (Remeron) 15 mg QHS PO 09/27/21 21:00 01/06/22 19:58 Olanzapine (ZyPREXA ZYDIS) 2.5 mg PRN Q2HRS PRN PO ANXIETY / AGITATION 09/27/21 15:00 11/27/21 20:14 Quetiapine Fumarate (SEROquel) 25 mg BID PO 09/27/21 21:00 01/06/22 19:58 Sertraline HCl (Zoloft) 50 mg HS PO 09/27/21 21:00 01/06/22 19:59 Trazodone HCl (Desyrel) 25 mg HS PO 09/27/21 21:00 10/05/21 18:14 DC 10/04/21 20:06 Melatonin (Melatonin) 3 mg HS PO 09/27/21 21:00 01/06/22 19:58 Metformin HCl (Glucophage) 500 mg BIDWMEALS PO 09/29/21 17:00 01/06/22 17:15 Nystatin (Nystop) 15 sulma STK-MED ONCE TP 10/04/21 09:36 10/04/21 09:36 DC Trazodone HCl (Desyrel) 50 mg HS PO 10/05/21 21:00 01/06/22 19:59 Trazodone HCl (Desyrel) 50 mg PRN QHS PRN PO INSOMNIA 10/05/21 18:15 12/05/21 20:02 Albuterol/ Ipratropium (Combivent Respimat 20-100 Mcg) 1 puff RTQID INH 10/18/21 20:00 01/06/22 19:58 Azithromycin (Zithromax) 500 mg 1X ONCE PO 10/19/21 16:45 10/19/21 16:46 DC 10/19/21 17:03 Azithromycin (Zithromax) 250 mg DAILY PO 10/20/21 09:00 10/24/21 22:00 DC 10/24/21 08:23 Lactobacillus Rhamnosus (Culturelle) 1 cap BID PO 10/21/21 09:00 11/29/21 16:02 DC 11/29/21 08:10 Diclofenac Sodium (Voltaren) 1 sulma TID TP 10/24/21 14:00 11/07/21 12:35 DC 11/06/21 20:18 Prednisone (Prednisone) 60 mg 1X ONCE PO 10/26/21 11:00 10/26/21 11:01 DC 10/26/21 12:17 Diclofenac Sodium (Voltaren) 1 sulma PRN TID PRN TP MUSCLE PAIN 11/07/21 12:45 12/17/21 08:58 Nystatin (Nystop) 1 sulma BID TP 12/13/21 09:00 01/06/22 19:59 Gabapentin (Neurontin) 100 mg DAILYWSUP PO 12/23/21 17:00 01/06/22 17:15 I have reviewed the current psychotropics carefully including drug interactions. Risk benefit ratio favors no change other than as noted in my dictated progress note. Diagnosis: Problems: (1) Impulse control disorder, unspecified (2) Anxiety disorder, unspecified (3) Dementia, vascular, with depression (4) Dementia, vascular, with delusions (5) Dementia in Alzheimer's disease with depression (6) Dementia in Alzheimer's disease with delusions (7) Dementia of the Alzheimer's type with early onset with behavioral disturbance (8) Major neurocognitive disorder SOO BAIRES MD January 06, 2022 21:34
[2022-01-07 06:13] VITALS: BP 123/65
[2022-01-07] MEDS: IPRATROPIUM/ALBUTEROL 20/100mcg/INH INHALER. INH SCH ×4 (08:23→20:05)
[2022-01-07] MEDS: metFORMIN 500 MG TABLET PO SCH ×2 (08:23→17:03)
[2022-01-07] MEDS: NYSTATIN TOPICAL POWDER 15GM BOTTLE. TP SCH ×2 (08:23→20:05)
[2022-01-07] MEDS: QUEtiapine 25 MG TABLET. PO SCH ×2 (08:23→20:05)
--- NOTE | 2022-01-07 10:05 | PDOC ---
Exam Note: [place] Note: This note is a late entry for 01/06/2022 covers elements not covered in my initial note. Subjective: The patient was reviewed at treatment team meeting individually in the morning on 01/06/2022 with Katherine Moreno, Eliza Muniz, and Stephani Curry (social science analyst), Martina, activity therapy, and Honey TANG, discussed and reviewed the chart. The patient slept 7-1/4 hours previous night. Appetite 90%. Average sleep 7 hours. She attended 3 groups in the past one week. Reviewed her diagnoses, progress, circumstances prompting admission, current psychotropics, discharge plans at treatment team meeting. I also met with the patient in her room in the evening. She has had some yelling, anxiety, restless. Review of Systems: Ambulation impaired in wheelchair. No CV, , pulmonary, eye system symptoms on review. Mental Status Exam: The patient is oriented to herself and situation. She appears little more anxious, restless today. Speech coherent. Abstraction fair. Computation impaired. Language function intact. Attention span short. Mood and affect is improved. Laboratory Data: Reviewed. Impression: Major neurocognitive disorder Alzheimer, vascular, with delusions, depression, behavioral disturbance. Anxiety disorder unspecified. Impulse control disorder unspecified. Plan: No change from initial note. Reviewed drug interactions, risk-benefit ratio. Assessment: Vital Signs/I&O: Vital Signs Date Time Temp Pulse Resp B/P (MAP) Pulse Ox O2 Delivery O2 Flow Rate FiO2 01/07/22 06:13 98.0 71 20 123/65 (84) 93 Room Air I & O 01/06/22 01/06/22 01/07/22 15:00 23:00 07:00 Intake Total 600 ml 480 ml 120 ml Balance 600 ml 480 ml 120 ml Current Medications: I have reviewed the current psychotropics carefully including drug interactions. Risk benefit ratio favors no change other than as noted in my dictated progress note. 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
[2022-01-07] MEDS: GABAPENTIN 100 MG CAPSULE. PO SCH (17:03)
[2022-01-07] MEDS: MIRTAZAPINE 15 MG TABLET PO SCH (20:05)
[2022-01-07] MEDS: MELATONIN 3 MG TABLET PO SCH (20:05)
[2022-01-07] MEDS: SERTRALINE 50 MG TABLET. PO SCH (20:05)
[2022-01-07] MEDS: traZODone 50 MG TABLET. PO SCH (20:05)
--- NOTE | 2022-01-07 21:26 | RAD ---
Exam: Chest one view INDICATION: Wheezing, cough, pain TECHNIQUE: Frontal view of the chest Comparisons: 10/18/2021 FINDINGS: Heart is mildly enlarged pulmonary vessels are within normal limits. The lung and pleural spaces are clear. IMPRESSION: No acute pulmonary process. Electronically signed by: Vale Frias MD (01/07/2022 9:24 PM) KAREEM
--- NOTE | 2022-01-07 21:44 | PDOC ---
Exam Note: [place] Note: Please also refer to the separate dictated note~for this date of service dictated separately.~Patient seen individually. Discussed the patient with Nursing staff reviewed the chart.~Reviewed interim history and current functioning. Reviewed vital signs,~Labs/ Radiology~and current medications noted below. Continue current treatment with the changes noted in the dictated addendum note Assessment: Vital Signs/I&O: Vital Signs Date Time Temp Pulse Resp B/P (MAP) Pulse Ox O2 Delivery O2 Flow Rate FiO2 01/07/22 06:13 98.0 71 20 123/65 (84) 93 Room Air I & O 01/06/22 01/06/22 01/07/22 15:00 23:00 07:00 Intake Total 600 ml 480 ml 120 ml Balance 600 ml 480 ml 120 ml Current Medications: Meds: Current Medications Medications (Trade) Dose Ordered Sig/Richard Route PRN Reason Start Time Stop Time Status Last Admin Dose Admin Acetaminophen (Tylenol) 650 mg PRN Q6HRS PRN PO MILD PAIN / TEMP > 100.3'F 09/27/21 15:00 12/30/21 08:07 Mirtazapine (Remeron) 15 mg QHS PO 09/27/21 21:00 01/07/22 20:05 Olanzapine (ZyPREXA ZYDIS) 2.5 mg PRN Q2HRS PRN PO ANXIETY / AGITATION 09/27/21 15:00 11/27/21 20:14 Quetiapine Fumarate (SEROquel) 25 mg BID PO 09/27/21 21:00 01/07/22 20:05 Sertraline HCl (Zoloft) 50 mg HS PO 09/27/21 21:00 01/07/22 20:05 Trazodone HCl (Desyrel) 25 mg HS PO 09/27/21 21:00 10/05/21 18:14 DC 10/04/21 20:06 Melatonin (Melatonin) 3 mg HS PO 09/27/21 21:00 01/07/22 20:05 Metformin HCl (Glucophage) 500 mg BIDWMEALS PO 09/29/21 17:00 01/07/22 17:03 Nystatin (Nystop) 15 sulma STK-MED ONCE TP 10/04/21 09:36 10/04/21 09:36 DC Trazodone HCl (Desyrel) 50 mg HS PO 10/05/21 21:00 01/07/22 20:05 Trazodone HCl (Desyrel) 50 mg PRN QHS PRN PO INSOMNIA 10/05/21 18:15 12/05/21 20:02 Albuterol/ Ipratropium (Combivent Respimat 20-100 Mcg) 1 puff RTQID INH 10/18/21 20:00 01/07/22 20:05 Azithromycin (Zithromax) 500 mg 1X ONCE PO 10/19/21 16:45 10/19/21 16:46 DC 10/19/21 17:03 Azithromycin (Zithromax) 250 mg DAILY PO 10/20/21 09:00 10/24/21 22:00 DC 10/24/21 08:23 Lactobacillus Rhamnosus (Culturelle) 1 cap BID PO 10/21/21 09:00 11/29/21 16:02 DC 11/29/21 08:10 Diclofenac Sodium (Voltaren) 1 sulma TID TP 10/24/21 14:00 11/07/21 12:35 DC 11/06/21 20:18 Prednisone (Prednisone) 60 mg 1X ONCE PO 10/26/21 11:00 10/26/21 11:01 DC 10/26/21 12:17 Diclofenac Sodium (Voltaren) 1 sulma PRN TID PRN TP MUSCLE PAIN 11/07/21 12:45 12/17/21 08:58 Nystatin (Nystop) 1 sulma BID TP 12/13/21 09:00 01/07/22 20:05 Gabapentin (Neurontin) 100 mg DAILYWSUP PO 12/23/21 17:00 01/07/22 17:03 I have reviewed the current psychotropics carefully including drug interactions. Risk benefit ratio favors no change other than as noted in my dictated progress note. Diagnosis: Problems: (1) Impulse control disorder, unspecified (2) Anxiety disorder, unspecified (3) Dementia, vascular, with depression (4) Dementia, vascular, with delusions (5) Dementia in Alzheimer's disease with depression (6) Dementia in Alzheimer's disease with delusions (7) Dementia of the Alzheimer's type with early onset with behavioral disturbance (8) Major neurocognitive disorder SOO BAIRES MD January 07, 2022 21:44
[2022-01-08 05:58] VITALS: BP 99/53
--- NOTE | 2022-01-08 06:19 | PDOC ---
Exam Note: [place] Note: This note is a late entry for 01/07/2022 covers elements not covered in my initial note. Subjective: The patient was seen individually on 01/07/2022, discussed and reviewed the chart with Honey TANG. The patient slept 7-3/4 hours previous night. I met with her in her room. She was neatly tucked inside the bed and had a colored blanket on her feet and very pleased with this. Review of Systems: Ambulation impaired in wheelchair. No CV, , pulmonary, eye system symptoms on review. Mental Status Exam: The patient is oriented to herself and situation. Speech coherent. Abstraction fair. Computation impaired. Language function intact. Attention span short. Mood and affect is improved. Laboratory Data: Reviewed. Impression: Major neurocognitive disorder Alzheimer, vascular, with delusions, depression, behavioral disturbance. Anxiety disorder unspecified. Impulse control disorder unspecified. Plan: No change from initial note. Reviewed drug interactions, risk-benefit ratio. Assessment: Vital Signs/I&O: Vital Signs Date Time Temp Pulse Resp B/P (MAP) Pulse Ox O2 Delivery O2 Flow Rate FiO2 01/08/22 05:58 97.4 72 18 99/53 (68) 92 01/07/22 06:13 Room Air I & O 01/07/22 01/07/22 01/08/22 15:00 23:00 07:00 Intake Total 840 ml 360 ml Balance 840 ml 360 ml Labs: Laboratory Tests Test 01/07/22 14:00 POC SARS CoV-2 Antigen Negative (NEGATIVE) Current Medications: I have reviewed the current psychotropics carefully including drug interactions. Risk benefit ratio favors no change other than as noted in my dictated progress note. Diagnosis: Problems: (1) Impulse control disorder, unspecified (2) Anxiety disorder, unspecified (3) Dementia, vascular, with depression (4) Dementia, vascular, with delusions (5) Dementia in Alzheimer's disease with depression (6) Dementia in Alzheimer's disease with delusions (7) Dementia of the Alzheimer's type with early onset with behavioral disturbance (8) Major neurocognitive disorder SOO BAIRES MD January 08, 2022 06:19
[2022-01-08 06:41] LABS: BASO % 1 % (0-3); EOS # 0.3 x10^3/uL (0.0-0.7); EOS % 4 % (0-3); HEMATOCRIT 32.4 % (36.0-47.0); HEMOGLOBIN 10.3 g/dL (12.0-15.5); LYMPH # 2.8 x10^3/uL (1.0-4.8); LYMPH % 38 % (24-48); MEAN CORPUSCULAR HEMOGLOBIN 27 pg (25-35); MEAN CORPUSCULAR HGB CONC 32 g/dL (31-37); MEAN CORPUSCULAR VOLUME 85 fL (79-100); MONO # 0.4 x10^3/uL (0.0-1.1); MONO % 6 % (0-9); NEUT # 3.8 x10^3uL (1.8-7.7); NEUT % 52 % (31-73); PLATELET COUNT 187 x10^3/uL (140-400); RED BLOOD COUNT 3.82 x10^6/uL (3.50-5.40); RED CELL DISTRIBUTION WIDTH 14.7 % (11.5-14.5); WHITE BLOOD COUNT 7.4 x10^3/uL (4.0-11.0)
[2022-01-08 06:56] LABS: ALBUMIN 2.6 g/dL (3.4-5.0); ALBUMIN/GLOBULIN RATIO 0.7 (1.0-1.7); CALCIUM 8.5 mg/dL (8.5-10.1); CREATININE 1.1 mg/dL (0.6-1.0); GFR 47.3; POTASSIUM 4.5 mmol/L (3.5-5.1); TOTAL BILIRUBIN 0.2 mg/dL (0.2-1.0); TOTAL PROTEIN 6.6 g/dL (6.4-8.2)
[2022-01-08] MEDS: NYSTATIN TOPICAL POWDER 15GM BOTTLE. TP SCH ×2 (08:23→20:10)
[2022-01-08] MEDS: QUEtiapine 25 MG TABLET. PO SCH ×2 (08:23→20:10)
[2022-01-08] MEDS: metFORMIN 500 MG TABLET PO SCH ×2 (08:23→17:39)
[2022-01-08] MEDS: IPRATROPIUM/ALBUTEROL 20/100mcg/INH INHALER. INH SCH ×4 (08:23→20:10)
[2022-01-08] MEDS: ACETAMINOPHEN 325 MG TABLET PO PRN (12:49)
[2022-01-08 16:06] VITALS: BP 138/70
[2022-01-08] MEDS: GABAPENTIN 100 MG CAPSULE. PO SCH (17:40)
[2022-01-08] MEDS: traZODone 50 MG TABLET. PO SCH (20:10)
[2022-01-08] MEDS: MIRTAZAPINE 15 MG TABLET PO SCH (20:10)
[2022-01-08] MEDS: MELATONIN 3 MG TABLET PO SCH (20:10)
[2022-01-08] MEDS: SERTRALINE 50 MG TABLET. PO SCH (20:10)
--- NOTE | 2022-01-08 21:33 | PDOC ---
Exam Note: [place] Note: Please also refer to the separate dictated note~for this date of service dictated separately.~Patient seen individually. Discussed the patient with Nursing staff reviewed the chart.~Reviewed interim history and current functioning. Reviewed vital signs,~Labs/ Radiology~and current medications noted below. Continue current treatment with the changes noted in the dictated addendum note Assessment: Vital Signs/I&O: Vital Signs Date Time Temp Pulse Resp B/P (MAP) Pulse Ox O2 Delivery O2 Flow Rate FiO2 01/08/22 16:06 97.8 66 16 138/70 (92) 94 Room Air I & O 01/07/22 01/07/22 01/08/22 15:00 23:00 07:00 Intake Total 840 ml 360 ml Balance 840 ml 360 ml Labs: Laboratory Tests Test 01/08/22 06:20 White Blood Count 7.4 x10^3/uL (4.0-11.0) Red Blood Count 3.82 x10^6/uL (3.50-5.40) Hemoglobin 10.3 g/dL (12.0-15.5) L Hematocrit 32.4 % (36.0-47.0) L Mean Corpuscular Volume 85 fL (79-100) Mean Corpuscular Hemoglobin 27 pg (25-35) Mean Corpuscular Hemoglobin Concent 32 g/dL (31-37) Red Cell Distribution Width 14.7 % (11.5-14.5) H Platelet Count 187 x10^3/uL (140-400) Neutrophils (%) (Auto) 52 % (31-73) Lymphocytes (%) (Auto) 38 % (24-48) Monocytes (%) (Auto) 6 % (0-9) Eosinophils (%) (Auto) 4 % (0-3) H Basophils (%) (Auto) 1 % (0-3) Neutrophils # (Auto) 3.8 x10^3uL (1.8-7.7) Lymphocytes # (Auto) 2.8 x10^3/uL (1.0-4.8) Monocytes # (Auto) 0.4 x10^3/uL (0.0-1.1) Eosinophils # (Auto) 0.3 x10^3/uL (0.0-0.7) Basophils # (Auto) 0.0 x10^3/uL (0.0-0.2) Sodium Level 139 mmol/L (136-145) Potassium Level 4.5 mmol/L (3.5-5.1) Chloride Level 106 mmol/L (98-107) Carbon Dioxide Level 28 mmol/L (21-32) Anion Gap 5 (6-14) L Blood Urea Nitrogen 38 mg/dL (7-20) H Creatinine 1.1 mg/dL (0.6-1.0) H Estimated GFR (Cockcroft-Gault) 47.3 BUN/Creatinine Ratio 35 (6-20) H Glucose Level 109 mg/dL (70-99) H Calcium Level 8.5 mg/dL (8.5-10.1) Total Bilirubin 0.2 mg/dL (0.2-1.0) Aspartate Amino Transferase (AST) 13 U/L (15-37) L Alanine Aminotransferase (ALT) 20 U/L (14-59) Alkaline Phosphatase 107 U/L (46-116) Total Protein 6.6 g/dL (6.4-8.2) Albumin 2.6 g/dL (3.4-5.0) L Albumin/Globulin Ratio 0.7 (1.0-1.7) L Current Medications: Meds: Laboratory Tests Test 01/08/22 06:20 White Blood Count 7.4 x10^3/uL Red Blood Count 3.82 x10^6/uL Hemoglobin 10.3 g/dL Hematocrit 32.4 % Mean Corpuscular Volume 85 fL Mean Corpuscular Hemoglobin 27 pg Mean Corpuscular Hemoglobin Concent 32 g/dL Red Cell Distribution Width 14.7 % Platelet Count 187 x10^3/uL Neutrophils (%) (Auto) 52 % Lymphocytes (%) (Auto) 38 % Monocytes (%) (Auto) 6 % Eosinophils (%) (Auto) 4 % Basophils (%) (Auto) 1 % Neutrophils # (Auto) 3.8 x10^3uL Lymphocytes # (Auto) 2.8 x10^3/uL Monocytes # (Auto) 0.4 x10^3/uL Eosinophils # (Auto) 0.3 x10^3/uL Basophils # (Auto) 0.0 x10^3/uL Sodium Level 139 mmol/L Potassium Level 4.5 mmol/L Chloride Level 106 mmol/L Carbon Dioxide Level 28 mmol/L Anion Gap 5 Blood Urea Nitrogen 38 mg/dL Creatinine 1.1 mg/dL Estimated GFR (Cockcroft-Gault) 47.3 BUN/Creatinine Ratio 35 Glucose Level 109 mg/dL Calcium Level 8.5 mg/dL Total Bilirubin 0.2 mg/dL Aspartate Amino Transf (AST/SGOT) 13 U/L Alanine Aminotransferase (ALT/SGPT) 20 U/L Alkaline Phosphatase 107 U/L Total Protein 6.6 g/dL Albumin 2.6 g/dL Albumin/Globulin Ratio 0.7 Current Medications Medications (Trade) Dose Ordered Sig/Richard Route PRN Reason Start Time Stop Time Status Last Admin Dose Admin Acetaminophen (Tylenol) 650 mg PRN Q6HRS PRN PO MILD PAIN / TEMP > 100.3'F 09/27/21 15:00 01/08/22 12:49 Mirtazapine (Remeron) 15 mg QHS PO 09/27/21 21:00 01/08/22 20:10 Olanzapine (ZyPREXA ZYDIS) 2.5 mg PRN Q2HRS PRN PO ANXIETY / AGITATION 09/27/21 15:00 11/27/21 20:14 Quetiapine Fumarate (SEROquel) 25 mg BID PO 09/27/21 21:00 01/08/22 20:10 Sertraline HCl (Zoloft) 50 mg HS PO 09/27/21 21:00 01/08/22 20:10 Trazodone HCl (Desyrel) 25 mg HS PO 09/27/21 21:00 10/05/21 18:14 DC 10/04/21 20:06 Melatonin (Melatonin) 3 mg HS PO 09/27/21 21:00 01/08/22 20:10 Metformin HCl (Glucophage) 500 mg BIDWMEALS PO 09/29/21 17:00 01/08/22 17:39 Nystatin (Nystop) 15 sulma STK-MED ONCE TP 10/04/21 09:36 10/04/21 09:36 DC Trazodone HCl (Desyrel) 50 mg HS PO 10/05/21 21:00 01/08/22 20:10 Trazodone HCl (Desyrel) 50 mg PRN QHS PRN PO INSOMNIA 10/05/21 18:15 12/05/21 20:02 Albuterol/ Ipratropium (Combivent Respimat 20-100 Mcg) 1 puff RTQID INH 10/18/21 20:00 01/08/22 20:10 Azithromycin (Zithromax) 500 mg 1X ONCE PO 10/19/21 16:45 10/19/21 16:46 DC 10/19/21 17:03 Azithromycin (Zithromax) 250 mg DAILY PO 10/20/21 09:00 10/24/21 22:00 DC 10/24/21 08:23 Lactobacillus Rhamnosus (Culturelle) 1 cap BID PO 10/21/21 09:00 11/29/21 16:02 DC 11/29/21 08:10 Diclofenac Sodium (Voltaren) 1 sulma TID TP 10/24/21 14:00 11/07/21 12:35 DC 11/06/21 20:18 Prednisone (Prednisone) 60 mg 1X ONCE PO 10/26/21 11:00 10/26/21 11:01 DC 10/26/21 12:17 Diclofenac Sodium (Voltaren) 1 sulma PRN TID PRN TP MUSCLE PAIN 11/07/21 12:45 12/17/21 08:58 Nystatin (Nystop) 1 sulma BID TP 12/13/21 09:00 01/08/22 20:10 Gabapentin (Neurontin) 100 mg DAILYWSUP PO 12/23/21 17:00 01/08/22 17:40 I have reviewed the current psychotropics carefully including drug interactions. Risk benefit ratio favors no change other than as noted in my dictated progress note. Diagnosis: Problems: (1) Impulse control disorder, unspecified (2) Anxiety disorder, unspecified (3) Dementia, vascular, with depression (4) Dementia, vascular, with delusions (5) Dementia in Alzheimer's disease with depression (6) Dementia in Alzheimer's disease with delusions (7) Dementia of the Alzheimer's type with early onset with behavioral disturbance (8) Major neurocognitive disorder SOO BAIRES MD January 08, 2022 21:33
[2022-01-09 06:03] VITALS: BP 107/64
--- NOTE | 2022-01-09 06:29 | PDOC ---
Exam Note: [place] Note: This note is a late entry for 01/08/2022 covers elements not covered in my initial note. Subjective: The patient was seen individually on 01/08/2022, discussed and reviewed the chart with Honey TANG. The patient slept 7-3/4 hours previous night. Overall she is doing better, anxious with cares. She has had some cough and chest x-ray last night was unremarkable. We will defer to Dr. Díaz. Review of Systems: Ambulation impaired in wheelchair. No CV, , pulmonary, eye system symptoms on review. Mental Status Exam: The patient is oriented to herself and situation. Speech coherent. Abstraction fair. Computation impaired. Language function intact. Attention span short. Mood and affect is improved. Laboratory Data: Reviewed. Impression: Major neurocognitive disorder Alzheimer, vascular, with delusions, depression, behavioral disturbance. Anxiety disorder unspecified. Impulse control disorder unspecified. Plan: No change from initial note. Reviewed drug interactions, risk-benefit ratio. Assessment: Vital Signs/I&O: Vital Signs Date Time Temp Pulse Resp B/P (MAP) Pulse Ox O2 Delivery O2 Flow Rate FiO2 01/09/22 06:03 97.7 64 20 107/64 (78) 95 01/08/22 16:06 Room Air I & O 01/08/22 01/08/22 01/09/22 14:59 22:59 06:59 Intake Total 600 ml 580 ml Balance 600 ml 580 ml Current Medications: I have reviewed the current psychotropics carefully including drug interactions. Risk benefit ratio favors no change other than as noted in my dictated progress note. Diagnosis: Problems: (1) Impulse control disorder, unspecified (2) Anxiety disorder, unspecified (3) Dementia, vascular, with depression (4) Dementia, vascular, with delusions (5) Dementia in Alzheimer's disease with depression (6) Dementia in Alzheimer's disease with delusions (7) Dementia of the Alzheimer's type with early onset with behavioral disturbance (8) Major neurocognitive disorder SOO BAIRES MD January 09, 2022 06:29
[2022-01-09] MEDS: metFORMIN 500 MG TABLET PO SCH ×2 (08:10→17:23)
[2022-01-09] MEDS: NYSTATIN TOPICAL POWDER 15GM BOTTLE. TP SCH ×2 (08:11→20:05)
[2022-01-09] MEDS: QUEtiapine 25 MG TABLET. PO SCH ×2 (08:11→20:06)
[2022-01-09] MEDS: IPRATROPIUM/ALBUTEROL 20/100mcg/INH INHALER. INH SCH ×4 (08:11→20:05)
[2022-01-09 16:21] VITALS: BP 127/67
[2022-01-09] MEDS: GABAPENTIN 100 MG CAPSULE. PO SCH (17:23)
[2022-01-09] MEDS: MIRTAZAPINE 15 MG TABLET PO SCH (20:05)
[2022-01-09] MEDS: MELATONIN 3 MG TABLET PO SCH (20:05)
[2022-01-09] MEDS: SERTRALINE 50 MG TABLET. PO SCH (20:05)
[2022-01-09] MEDS: traZODone 50 MG TABLET. PO SCH (20:06)
--- NOTE | 2022-01-09 21:44 | PDOC ---
Exam Note: [place] Note: Please also refer to the separate dictated note~for this date of service dictated separately.~Patient seen individually. Discussed the patient with Nursing staff reviewed the chart.~Reviewed interim history and current functioning. Reviewed vital signs,~Labs/ Radiology~and current medications noted below. Continue current treatment with the changes noted in the dictated addendum note Assessment: Vital Signs/I&O: Vital Signs Date Time Temp Pulse Resp B/P (MAP) Pulse Ox O2 Delivery O2 Flow Rate FiO2 01/09/22 16:21 97.6 66 18 127/67 (87) 98 Room Air I & O 01/08/22 01/08/22 01/09/22 14:59 22:59 06:59 Intake Total 600 ml 580 ml Balance 600 ml 580 ml Current Medications: Meds: Current Medications Medications (Trade) Dose Ordered Sig/Richard Route PRN Reason Start Time Stop Time Status Last Admin Dose Admin Acetaminophen (Tylenol) 650 mg PRN Q6HRS PRN PO MILD PAIN / TEMP > 100.3'F 09/27/21 15:00 01/08/22 12:49 Mirtazapine (Remeron) 15 mg QHS PO 09/27/21 21:00 01/09/22 20:05 Olanzapine (ZyPREXA ZYDIS) 2.5 mg PRN Q2HRS PRN PO ANXIETY / AGITATION 09/27/21 15:00 11/27/21 20:14 Quetiapine Fumarate (SEROquel) 25 mg BID PO 09/27/21 21:00 01/09/22 20:06 Sertraline HCl (Zoloft) 50 mg HS PO 09/27/21 21:00 01/09/22 20:05 Trazodone HCl (Desyrel) 25 mg HS PO 09/27/21 21:00 10/05/21 18:14 DC 10/04/21 20:06 Melatonin (Melatonin) 3 mg HS PO 09/27/21 21:00 01/09/22 20:05 Metformin HCl (Glucophage) 500 mg BIDWMEALS PO 09/29/21 17:00 01/09/22 17:23 Nystatin (Nystop) 15 sulma STK-MED ONCE TP 10/04/21 09:36 10/04/21 09:36 DC Trazodone HCl (Desyrel) 50 mg HS PO 10/05/21 21:00 01/09/22 20:06 Trazodone HCl (Desyrel) 50 mg PRN QHS PRN PO INSOMNIA 10/05/21 18:15 12/05/21 20:02 Albuterol/ Ipratropium (Combivent Respimat 20-100 Mcg) 1 puff RTQID INH 10/18/21 20:00 01/09/22 20:05 Azithromycin (Zithromax) 500 mg 1X ONCE PO 10/19/21 16:45 10/19/21 16:46 DC 10/19/21 17:03 Azithromycin (Zithromax) 250 mg DAILY PO 10/20/21 09:00 10/24/21 22:00 DC 10/24/21 08:23 Lactobacillus Rhamnosus (Culturelle) 1 cap BID PO 10/21/21 09:00 11/29/21 16:02 DC 11/29/21 08:10 Diclofenac Sodium (Voltaren) 1 sulma TID TP 10/24/21 14:00 11/07/21 12:35 DC 11/06/21 20:18 Prednisone (Prednisone) 60 mg 1X ONCE PO 10/26/21 11:00 10/26/21 11:01 DC 10/26/21 12:17 Diclofenac Sodium (Voltaren) 1 sulma PRN TID PRN TP MUSCLE PAIN 11/07/21 12:45 12/17/21 08:58 Nystatin (Nystop) 1 sulma BID TP 12/13/21 09:00 01/09/22 20:05 Gabapentin (Neurontin) 100 mg DAILYWSUP PO 12/23/21 17:00 01/09/22 17:23 I have reviewed the current psychotropics carefully including drug interactions. Risk benefit ratio favors no change other than as noted in my dictated progress note. 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
[2022-01-10 05:53] VITALS: BP 138/75
--- NOTE | 2022-01-10 07:57 | PDOC ---
Exam Note: [place] Note: This note is a late entry for 01/09/2022 covers elements not covered in my initial note. Subjective: The patient was seen individually on 01/09/2022, discussed and reviewed the chart with Chelle TANG. The patient slept 8-1/2 hours previous night. I met with the patient in the evening in the dayroom. Overall the patient is doing reasonably well, about the same, not agitated, yelling is much less. Review of Systems: Impaired ambulation in wheelchair. She complains of feeling cold, did have a blanket available to her. No CV, , pulmonary, eye system symptoms on review. Mental Status Exam: The patient is oriented to herself and situation. Speech coherent. Abstraction fair. Computation impaired. Language function intact. Attention span short. Mood and affect is anxious. Laboratory Data: Reviewed. Impression: Major neurocognitive disorder Alzheimer, vascular, with delusions, depression, behavioral disturbance. Anxiety disorder unspecified. Impulse control disorder unspecified. Plan: No change from initial note. Reviewed drug interactions, risk-benefit ratio. Assessment: Vital Signs/I&O: Vital Signs Date Time Temp Pulse Resp B/P (MAP) Pulse Ox O2 Delivery O2 Flow Rate FiO2 01/10/22 05:53 97.9 68 18 138/75 (96) 94 Room Air I & O 01/09/22 01/09/22 01/10/22 15:00 23:00 07:00 Intake Total 840 ml 410 ml Balance 840 ml 410 ml Current Medications: I have reviewed the current psychotropics carefully including drug interactions. Risk benefit ratio favors no change other than as noted in my dictated progress note. 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
[2022-01-10] MEDS: NYSTATIN TOPICAL POWDER 15GM BOTTLE. TP SCH ×2 (08:26→20:17)
[2022-01-10] MEDS: QUEtiapine 25 MG TABLET. PO SCH ×2 (08:26→20:16)
[2022-01-10] MEDS: metFORMIN 500 MG TABLET PO SCH ×2 (08:26→17:21)
[2022-01-10] MEDS: IPRATROPIUM/ALBUTEROL 20/100mcg/INH INHALER. INH SCH ×4 (08:26→20:16)
[2022-01-10 15:00] VITALS: BP 126/67
[2022-01-10 15:57] VITALS: BP 126/67
[2022-01-10] MEDS: GABAPENTIN 100 MG CAPSULE. PO SCH (17:20)
[2022-01-10] MEDS: MIRTAZAPINE 15 MG TABLET PO SCH (20:16)
[2022-01-10] MEDS: SERTRALINE 50 MG TABLET. PO SCH (20:16)
[2022-01-10] MEDS: traZODone 50 MG TABLET. PO SCH (20:16)
[2022-01-10] MEDS: MELATONIN 3 MG TABLET PO SCH (20:16)
--- NOTE | 2022-01-10 21:38 | PDOC ---
Exam Note: [place] Note: Please also refer to the separate dictated note~for this date of service dictated separately.~Patient seen individually. Discussed the patient with Nursing staff reviewed the chart.~Reviewed interim history and current functioning. Reviewed vital signs,~Labs/ Radiology~and current medications noted below. Continue current treatment with the changes noted in the dictated addendum note Assessment: Vital Signs/I&O: Vital Signs Date Time Temp Pulse Resp B/P (MAP) Pulse Ox O2 Delivery O2 Flow Rate FiO2 01/10/22 15:57 97.3 71 18 126/67 (86) 93 01/10/22 05:53 Room Air I & O 01/09/22 01/09/22 01/10/22 15:00 23:00 07:00 Intake Total 840 ml 410 ml Balance 840 ml 410 ml Current Medications: Meds: Current Medications Medications (Trade) Dose Ordered Sig/Richard Route PRN Reason Start Time Stop Time Status Last Admin Dose Admin Acetaminophen (Tylenol) 650 mg PRN Q6HRS PRN PO MILD PAIN / TEMP > 100.3'F 09/27/21 15:00 01/08/22 12:49 Mirtazapine (Remeron) 15 mg QHS PO 09/27/21 21:00 01/10/22 20:16 Olanzapine (ZyPREXA ZYDIS) 2.5 mg PRN Q2HRS PRN PO ANXIETY / AGITATION 09/27/21 15:00 11/27/21 20:14 Quetiapine Fumarate (SEROquel) 25 mg BID PO 09/27/21 21:00 01/10/22 20:16 Sertraline HCl (Zoloft) 50 mg HS PO 09/27/21 21:00 01/10/22 20:16 Trazodone HCl (Desyrel) 25 mg HS PO 09/27/21 21:00 10/05/21 18:14 DC 10/04/21 20:06 Melatonin (Melatonin) 3 mg HS PO 09/27/21 21:00 01/10/22 20:16 Metformin HCl (Glucophage) 500 mg BIDWMEALS PO 09/29/21 17:00 01/10/22 17:21 Nystatin (Nystop) 15 sulma STK-MED ONCE TP 10/04/21 09:36 10/04/21 09:36 DC Trazodone HCl (Desyrel) 50 mg HS PO 10/05/21 21:00 01/10/22 20:16 Trazodone HCl (Desyrel) 50 mg PRN QHS PRN PO INSOMNIA 10/05/21 18:15 12/05/21 20:02 Albuterol/ Ipratropium (Combivent Respimat 20-100 Mcg) 1 puff RTQID INH 10/18/21 20:00 01/10/22 20:16 Azithromycin (Zithromax) 500 mg 1X ONCE PO 10/19/21 16:45 10/19/21 16:46 DC 10/19/21 17:03 Azithromycin (Zithromax) 250 mg DAILY PO 10/20/21 09:00 10/24/21 22:00 DC 10/24/21 08:23 Lactobacillus Rhamnosus (Culturelle) 1 cap BID PO 10/21/21 09:00 11/29/21 16:02 DC 11/29/21 08:10 Diclofenac Sodium (Voltaren) 1 sulma TID TP 10/24/21 14:00 11/07/21 12:35 DC 11/06/21 20:18 Prednisone (Prednisone) 60 mg 1X ONCE PO 10/26/21 11:00 10/26/21 11:01 DC 10/26/21 12:17 Diclofenac Sodium (Voltaren) 1 sulma PRN TID PRN TP MUSCLE PAIN 11/07/21 12:45 12/17/21 08:58 Nystatin (Nystop) 1 sulma BID TP 12/13/21 09:00 01/10/22 20:17 Gabapentin (Neurontin) 100 mg DAILYWSUP PO 12/23/21 17:00 01/10/22 17:20 I have reviewed the current psychotropics carefully including drug interactions. Risk benefit ratio favors no change other than as noted in my dictated progress note. 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
[2022-01-11 06:02] VITALS: BP 135/72
[2022-01-11] MEDS: IPRATROPIUM/ALBUTEROL 20/100mcg/INH INHALER. INH SCH ×4 (08:12→19:29)
[2022-01-11] MEDS: NYSTATIN TOPICAL POWDER 15GM BOTTLE. TP SCH ×2 (08:12→19:29)
[2022-01-11] MEDS: QUEtiapine 25 MG TABLET. PO SCH ×2 (08:12→19:29)
[2022-01-11] MEDS: metFORMIN 500 MG TABLET PO SCH ×2 (08:12→17:12)
[2022-01-11 15:00] VITALS: BP 127/75
[2022-01-11] MEDS: GABAPENTIN 100 MG CAPSULE. PO SCH (17:12)
[2022-01-11] MEDS: MELATONIN 3 MG TABLET PO SCH (19:29)
[2022-01-11] MEDS: MIRTAZAPINE 15 MG TABLET PO SCH (19:29)
[2022-01-11] MEDS: SERTRALINE 50 MG TABLET. PO SCH (19:30)
[2022-01-11] MEDS: traZODone 50 MG TABLET. PO SCH (19:30)
--- NOTE | 2022-01-11 22:00 | PDOC ---
Exam Note: [place] Note: Please also refer to the separate dictated note~for this date of service dictated separately.~Patient seen individually. Discussed the patient with Nursing staff reviewed the chart.~Reviewed interim history and current functioning. Reviewed vital signs,~Labs/ Radiology~and current medications noted below. Continue current treatment with the changes noted in the dictated addendum note Assessment: Vital Signs/I&O: Vital Signs Date Time Temp Pulse Resp B/P (MAP) Pulse Ox O2 Delivery O2 Flow Rate FiO2 01/11/22 15:00 98.0 66 18 127/75 (92) 92 Room Air I & O 01/10/22 01/10/22 01/11/22 15:00 23:00 07:00 Intake Total 760 ml 700 ml Balance 760 ml 700 ml Current Medications: Meds: Current Medications Medications (Trade) Dose Ordered Sig/Richard Route PRN Reason Start Time Stop Time Status Last Admin Dose Admin Acetaminophen (Tylenol) 650 mg PRN Q6HRS PRN PO MILD PAIN / TEMP > 100.3'F 09/27/21 15:00 01/08/22 12:49 Mirtazapine (Remeron) 15 mg QHS PO 09/27/21 21:00 01/11/22 19:29 Olanzapine (ZyPREXA ZYDIS) 2.5 mg PRN Q2HRS PRN PO ANXIETY / AGITATION 09/27/21 15:00 11/27/21 20:14 Quetiapine Fumarate (SEROquel) 25 mg BID PO 09/27/21 21:00 01/11/22 19:29 Sertraline HCl (Zoloft) 50 mg HS PO 09/27/21 21:00 01/11/22 19:30 Trazodone HCl (Desyrel) 25 mg HS PO 09/27/21 21:00 10/05/21 18:14 DC 10/04/21 20:06 Melatonin (Melatonin) 3 mg HS PO 09/27/21 21:00 01/11/22 19:29 Metformin HCl (Glucophage) 500 mg BIDWMEALS PO 09/29/21 17:00 01/11/22 17:12 Nystatin (Nystop) 15 sulma STK-MED ONCE TP 10/04/21 09:36 10/04/21 09:36 DC Trazodone HCl (Desyrel) 50 mg HS PO 10/05/21 21:00 01/11/22 19:30 Trazodone HCl (Desyrel) 50 mg PRN QHS PRN PO INSOMNIA 10/05/21 18:15 12/05/21 20:02 Albuterol/ Ipratropium (Combivent Respimat 20-100 Mcg) 1 puff RTQID INH 10/18/21 20:00 01/11/22 19:29 Azithromycin (Zithromax) 500 mg 1X ONCE PO 10/19/21 16:45 10/19/21 16:46 DC 10/19/21 17:03 Azithromycin (Zithromax) 250 mg DAILY PO 10/20/21 09:00 10/24/21 22:00 DC 10/24/21 08:23 Lactobacillus Rhamnosus (Culturelle) 1 cap BID PO 10/21/21 09:00 11/29/21 16:02 DC 11/29/21 08:10 Diclofenac Sodium (Voltaren) 1 sulma TID TP 10/24/21 14:00 11/07/21 12:35 DC 11/06/21 20:18 Prednisone (Prednisone) 60 mg 1X ONCE PO 10/26/21 11:00 10/26/21 11:01 DC 10/26/21 12:17 Diclofenac Sodium (Voltaren) 1 sulma PRN TID PRN TP MUSCLE PAIN 11/07/21 12:45 12/17/21 08:58 Nystatin (Nystop) 1 sulma BID TP 12/13/21 09:00 01/11/22 19:29 Gabapentin (Neurontin) 100 mg DAILYWSUP PO 12/23/21 17:00 01/11/22 17:12 I have reviewed the current psychotropics carefully including drug interactions. Risk benefit ratio favors no change other than as noted in my dictated progress note. Diagnosis: Problems: (1) Impulse control disorder, unspecified (2) Anxiety disorder, unspecified (3) Dementia, vascular, with depression (4) Dementia, vascular, with delusions (5) Dementia in Alzheimer's disease with depression (6) Dementia in Alzheimer's disease with delusions (7) Dementia of the Alzheimer's type with early onset with behavioral disturbance (8) Major neurocognitive disorder SOO BAIRES MD January 11, 2022 22:00
--- NOTE | 2022-01-11 22:00 | PDOC ---
Exam Note: [place] Note: This note is a late entry for 01/10/2022 covers elements not covered in my initial note. Subjective: The patient was seen individually on 01/10/2022, discussed and reviewed the chart with Estefany TANG. The patient slept 7-1/4 hours previous night. I met with the patient in her room. She was very verbal, appropriate, talking about how she went into a restaurant with her niece in the past and able to recount all of this, quite verbal, animated. Review of Systems: Impaired ambulation in wheelchair. She complains of feeling cold, did have a blanket available to her. No CV, , pulmonary, eye system symptoms on review. Mental Status Exam: The patient is oriented to herself and situation. Speech coherent. Abstraction fair. Computation impaired. Language function intact. Attention span short. Mood and affect is anxious. Laboratory Data: Reviewed. Impression: Major neurocognitive disorder Alzheimer, vascular, with delusions, depression, behavioral disturbance. Anxiety disorder unspecified. Impulse control disorder unspecified. Plan: No change from initial note. Reviewed drug interactions, risk-benefit ratio. Assessment: Vital Signs/I&O: Vital Signs Date Time Temp Pulse Resp B/P (MAP) Pulse Ox O2 Delivery O2 Flow Rate FiO2 01/11/22 15:00 98.0 66 18 127/75 (92) 92 Room Air I & O 01/10/22 01/10/22 01/11/22 15:00 23:00 07:00 Intake Total 760 ml 700 ml Balance 760 ml 700 ml Current Medications: I have reviewed the current psychotropics carefully including drug interactions. Risk benefit ratio favors no change other than as noted in my dictated progress note. Diagnosis: Problems: (1) Impulse control disorder, unspecified (2) Anxiety disorder, unspecified (3) Dementia, vascular, with depression (4) Dementia, vascular, with delusions (5) Dementia in Alzheimer's disease with depression (6) Dementia in Alzheimer's disease with delusions (7) Dementia of the Alzheimer's type with early onset with behavioral disturbance (8) Major neurocognitive disorder SOO BAIRES MD January 11, 2022 22:00
[2022-01-12 06:04] VITALS: BP 136/60
[2022-01-12] MEDS: QUEtiapine 25 MG TABLET. PO SCH ×2 (08:44→20:00)
[2022-01-12] MEDS: NYSTATIN TOPICAL POWDER 15GM BOTTLE. TP SCH ×2 (08:44→20:00)
[2022-01-12] MEDS: IPRATROPIUM/ALBUTEROL 20/100mcg/INH INHALER. INH SCH ×4 (08:45→20:01)
[2022-01-12] MEDS: metFORMIN 500 MG TABLET PO SCH ×2 (08:45→17:13)
[2022-01-12 15:53] VITALS: BP 134/76
[2022-01-12] MEDS: GABAPENTIN 100 MG CAPSULE. PO SCH (17:13)
[2022-01-12] MEDS: MELATONIN 3 MG TABLET PO SCH (20:00)
[2022-01-12] MEDS: traZODone 50 MG TABLET. PO SCH (20:00)
[2022-01-12] MEDS: SERTRALINE 50 MG TABLET. PO SCH (20:00)
[2022-01-12] MEDS: MIRTAZAPINE 15 MG TABLET PO SCH (20:00)
--- NOTE | 2022-01-12 21:48 | PDOC ---
Exam Note: [place] Note: Please also refer to the separate dictated note~for this date of service dictated separately.~Patient seen individually. Discussed the patient with Nursing staff reviewed the chart.~Reviewed interim history and current functioning. Reviewed vital signs,~Labs/ Radiology~and current medications noted below. Continue current treatment with the changes noted in the dictated addendum note Assessment: Vital Signs/I&O: Vital Signs Date Time Temp Pulse Resp B/P (MAP) Pulse Ox O2 Delivery O2 Flow Rate FiO2 01/12/22 15:53 97.5 70 16 134/76 (95) 100 Room Air I & O 01/11/22 01/11/22 01/12/22 15:00 23:00 07:00 Intake Total 540 ml 600 ml Balance 540 ml 600 ml Current Medications: Meds: Current Medications Medications (Trade) Dose Ordered Sig/Richard Route PRN Reason Start Time Stop Time Status Last Admin Dose Admin Acetaminophen (Tylenol) 650 mg PRN Q6HRS PRN PO MILD PAIN / TEMP > 100.3'F 09/27/21 15:00 01/08/22 12:49 Mirtazapine (Remeron) 15 mg QHS PO 09/27/21 21:00 01/12/22 20:00 Olanzapine (ZyPREXA ZYDIS) 2.5 mg PRN Q2HRS PRN PO ANXIETY / AGITATION 09/27/21 15:00 11/27/21 20:14 Quetiapine Fumarate (SEROquel) 25 mg BID PO 09/27/21 21:00 01/12/22 20:00 Sertraline HCl (Zoloft) 50 mg HS PO 09/27/21 21:00 01/12/22 20:00 Trazodone HCl (Desyrel) 25 mg HS PO 09/27/21 21:00 10/05/21 18:14 DC 10/04/21 20:06 Melatonin (Melatonin) 3 mg HS PO 09/27/21 21:00 01/12/22 20:00 Metformin HCl (Glucophage) 500 mg BIDWMEALS PO 09/29/21 17:00 01/12/22 17:13 Nystatin (Nystop) 15 sulma STK-MED ONCE TP 10/04/21 09:36 10/04/21 09:36 DC Trazodone HCl (Desyrel) 50 mg HS PO 10/05/21 21:00 01/12/22 20:00 Trazodone HCl (Desyrel) 50 mg PRN QHS PRN PO INSOMNIA 10/05/21 18:15 12/05/21 20:02 Albuterol/ Ipratropium (Combivent Respimat 20-100 Mcg) 1 puff RTQID INH 10/18/21 20:00 01/12/22 20:01 Azithromycin (Zithromax) 500 mg 1X ONCE PO 10/19/21 16:45 10/19/21 16:46 DC 10/19/21 17:03 Azithromycin (Zithromax) 250 mg DAILY PO 10/20/21 09:00 10/24/21 22:00 DC 10/24/21 08:23 Lactobacillus Rhamnosus (Culturelle) 1 cap BID PO 10/21/21 09:00 11/29/21 16:02 DC 11/29/21 08:10 Diclofenac Sodium (Voltaren) 1 sulma TID TP 10/24/21 14:00 11/07/21 12:35 DC 11/06/21 20:18 Prednisone (Prednisone) 60 mg 1X ONCE PO 10/26/21 11:00 10/26/21 11:01 DC 10/26/21 12:17 Diclofenac Sodium (Voltaren) 1 sulma PRN TID PRN TP MUSCLE PAIN 11/07/21 12:45 12/17/21 08:58 Nystatin (Nystop) 1 sulma BID TP 12/13/21 09:00 01/12/22 20:00 Gabapentin (Neurontin) 100 mg DAILYWSUP PO 12/23/21 17:00 01/12/22 17:13 I have reviewed the current psychotropics carefully including drug interactions. Risk benefit ratio favors no change other than as noted in my dictated progress note. Diagnosis: Problems: (1) Impulse control disorder, unspecified (2) Anxiety disorder, unspecified (3) Dementia, vascular, with depression (4) Dementia, vascular, with delusions (5) Dementia in Alzheimer's disease with depression (6) Dementia in Alzheimer's disease with delusions (7) Dementia of the Alzheimer's type with early onset with behavioral disturbance (8) Major neurocognitive disorder SOO BAIRES MD January 12, 2022 21:48
[2022-01-13 05:53] VITALS: BP 123/64
[2022-01-13] MEDS: IPRATROPIUM/ALBUTEROL 20/100mcg/INH INHALER. INH SCH ×4 (08:25→19:59)
[2022-01-13] MEDS: metFORMIN 500 MG TABLET PO SCH ×2 (08:25→17:34)
[2022-01-13] MEDS: QUEtiapine 25 MG TABLET. PO SCH ×2 (08:25→19:59)
--- NOTE | 2022-01-13 08:25 | PDOC ---
Exam Note: [place] Note: This note is a late entry for 01/11/2022 covers elements not covered in my initial note. Subjective: The patient was seen individually on 01/11/2022, discussed and reviewed the chart with Nikia TANG. The patient slept 7 hours previous night. Overall she has done better. I met with her in her room. She was in bed, neatly tucked in, feeling cold frequently. Otherwise she is very pleasant and interactive. Review of Systems: Impaired ambulation in wheelchair. No CV, , pulmonary, eye system symptoms on review. Mental Status Exam: The patient is oriented to herself and situation. Speech coherent. Abstraction fair. Computation impaired. Language function intact. Attention span short. Mood and affect is anxious. Laboratory Data: Reviewed. Impression: Major neurocognitive disorder Alzheimer, vascular, with delusions, depression, behavioral disturbance. Anxiety disorder unspecified. Impulse control disorder unspecified. Plan: No change from initial note. Reviewed drug interactions, risk-benefit ratio. Assessment: Vital Signs/I&O: Vital Signs Date Time Temp Pulse Resp B/P (MAP) Pulse Ox O2 Delivery O2 Flow Rate FiO2 01/13/22 05:53 98.3 61 20 123/64 (83) 94 Room Air I & O 01/12/22 01/12/22 01/13/22 15:00 23:00 07:00 Intake Total 440 ml 240 ml Balance 440 ml 240 ml Current Medications: I have reviewed the current psychotropics carefully including drug interactions. Risk benefit ratio favors no change other than as noted in my dictated progress note. Diagnosis: Problems: (1) Impulse control disorder, unspecified (2) Anxiety disorder, unspecified (3) Dementia, vascular, with depression (4) Dementia, vascular, with delusions (5) Dementia in Alzheimer's disease with depression (6) Dementia in Alzheimer's disease with delusions (7) Dementia of the Alzheimer's type with early onset with behavioral disturbance (8) Major neurocognitive disorder SOO BAIRES MD January 13, 2022 08:25
--- NOTE | 2022-01-13 08:57 | PDOC ---
Exam Note: [place] Note: This note is a late entry for 01/12/2022 covers elements not covered in my initial note. Subjective: The patient was seen individually on 01/12/2022, discussed and reviewed the chart with Joni TANG. The patient slept 8 hours previous night. She has been pleasant, sings in activities, compliant with medications. I met with her in her room. Review of Systems: Impaired ambulation in wheelchair. No CV, , pulmonary, eye system symptoms on review. Mental Status Exam: The patient is oriented to herself and situation. She was seated in a wheelchair, somewhat anxious, very accommodative as I met with her. Speech coherent. Abstraction fair. Computation impaired. Language function intact. Attention span short. Mood and affect is anxious. No suicidal or homicidal ideation. Laboratory Data: Reviewed. Impression: Major neurocognitive disorder Alzheimer, vascular, with delusions, depression, behavioral disturbance. Anxiety disorder unspecified. Impulse control disorder unspecified. Plan: No change from initial note. Reviewed drug interactions, risk-benefit ratio. Assessment: Vital Signs/I&O: Vital Signs Date Time Temp Pulse Resp B/P (MAP) Pulse Ox O2 Delivery O2 Flow Rate FiO2 01/13/22 05:53 98.3 61 20 123/64 (83) 94 Room Air I & O 01/12/22 01/12/22 01/13/22 15:00 23:00 07:00 Intake Total 440 ml 240 ml Balance 440 ml 240 ml Current Medications: I have reviewed the current psychotropics carefully including drug interactions. Risk benefit ratio favors no change other than as noted in my dictated progress note. Diagnosis: Problems: (1) Impulse control disorder, unspecified (2) Anxiety disorder, unspecified (3) Dementia, vascular, with depression (4) Dementia, vascular, with delusions (5) Dementia in Alzheimer's disease with depression (6) Dementia in Alzheimer's disease with delusions (7) Dementia of the Alzheimer's type with early onset with behavioral disturbance (8) Major neurocognitive disorder SOO BAIRES MD January 13, 2022 08:57
[2022-01-13] MEDS: NYSTATIN TOPICAL POWDER 15GM BOTTLE. TP SCH ×2 (09:00→19:59)
[2022-01-13 16:03] VITALS: BP 145/82
[2022-01-13] MEDS: GABAPENTIN 100 MG CAPSULE. PO SCH (17:34)
[2022-01-13] MEDS: MIRTAZAPINE 15 MG TABLET PO SCH (19:59)
[2022-01-13] MEDS: traZODone 50 MG TABLET. PO SCH (19:59)
[2022-01-13] MEDS: SERTRALINE 50 MG TABLET. PO SCH (19:59)
[2022-01-13] MEDS: MELATONIN 3 MG TABLET PO SCH (19:59)
--- NOTE | 2022-01-13 21:27 | PDOC ---
Exam Note: [place] Note: Please also refer to the separate dictated note~for this date of service dictated separately.~Patient seen individually. Discussed the patient with Nursing staff reviewed the chart.~Reviewed interim history and current functioning. Reviewed vital signs,~Labs/ Radiology~and current medications noted below. Continue current treatment with the changes noted in the dictated addendum note Assessment: Vital Signs/I&O: Vital Signs Date Time Temp Pulse Resp B/P (MAP) Pulse Ox O2 Delivery O2 Flow Rate FiO2 01/13/22 16:03 97.4 81 16 145/82 (103) 95 Room Air I & O 01/12/22 01/12/22 01/13/22 15:00 23:00 07:00 Intake Total 440 ml 240 ml Balance 440 ml 240 ml Current Medications: Meds: Current Medications Medications (Trade) Dose Ordered Sig/Richard Route PRN Reason Start Time Stop Time Status Last Admin Dose Admin Acetaminophen (Tylenol) 650 mg PRN Q6HRS PRN PO MILD PAIN / TEMP > 100.3'F 09/27/21 15:00 01/08/22 12:49 Mirtazapine (Remeron) 15 mg QHS PO 09/27/21 21:00 01/13/22 19:59 Olanzapine (ZyPREXA ZYDIS) 2.5 mg PRN Q2HRS PRN PO ANXIETY / AGITATION 09/27/21 15:00 11/27/21 20:14 Quetiapine Fumarate (SEROquel) 25 mg BID PO 09/27/21 21:00 01/13/22 19:59 Sertraline HCl (Zoloft) 50 mg HS PO 09/27/21 21:00 01/13/22 19:59 Trazodone HCl (Desyrel) 25 mg HS PO 09/27/21 21:00 10/05/21 18:14 DC 10/04/21 20:06 Melatonin (Melatonin) 3 mg HS PO 09/27/21 21:00 01/13/22 19:59 Metformin HCl (Glucophage) 500 mg BIDWMEALS PO 09/29/21 17:00 01/13/22 17:34 Nystatin (Nystop) 15 sulma STK-MED ONCE TP 10/04/21 09:36 10/04/21 09:36 DC Trazodone HCl (Desyrel) 50 mg HS PO 10/05/21 21:00 01/13/22 19:59 Trazodone HCl (Desyrel) 50 mg PRN QHS PRN PO INSOMNIA 10/05/21 18:15 12/05/21 20:02 Albuterol/ Ipratropium (Combivent Respimat 20-100 Mcg) 1 puff RTQID INH 10/18/21 20:00 01/13/22 19:59 Azithromycin (Zithromax) 500 mg 1X ONCE PO 10/19/21 16:45 10/19/21 16:46 DC 10/19/21 17:03 Azithromycin (Zithromax) 250 mg DAILY PO 10/20/21 09:00 10/24/21 22:00 DC 10/24/21 08:23 Lactobacillus Rhamnosus (Culturelle) 1 cap BID PO 10/21/21 09:00 11/29/21 16:02 DC 11/29/21 08:10 Diclofenac Sodium (Voltaren) 1 sulma TID TP 10/24/21 14:00 11/07/21 12:35 DC 11/06/21 20:18 Prednisone (Prednisone) 60 mg 1X ONCE PO 10/26/21 11:00 10/26/21 11:01 DC 10/26/21 12:17 Diclofenac Sodium (Voltaren) 1 sulma PRN TID PRN TP MUSCLE PAIN 11/07/21 12:45 12/17/21 08:58 Nystatin (Nystop) 1 sulma BID TP 12/13/21 09:00 01/13/22 19:59 Gabapentin (Neurontin) 100 mg DAILYWSUP PO 12/23/21 17:00 01/13/22 11:26 DC 01/12/22 17:13 Gabapentin (Neurontin) 100 mg BIDWMEALS PO 01/13/22 17:00 01/13/22 17:34 Current Medications Medications (Trade) Dose Ordered Sig/Richard Route PRN Reason Start Time Stop Time Status Last Admin Dose Admin Gabapentin (Neurontin) 100 mg BIDWMEALS PO 01/13/22 17:00 01/13/22 17:34 I have reviewed the current psychotropics carefully including drug interactions. Risk benefit ratio favors no change other than as noted in my dictated progress note. Diagnosis: Problems: (1) Impulse control disorder, unspecified (2) Anxiety disorder, unspecified (3) Dementia, vascular, with depression (4) Dementia, vascular, with delusions (5) Dementia in Alzheimer's disease with depression (6) Dementia in Alzheimer's disease with delusions (7) Dementia of the Alzheimer's type with early onset with behavioral dis turbance (8) Major neurocognitive disorder SOO BAIRES MD January 13, 2022 21:27
[2022-01-14 06:09] VITALS: BP 129/59
--- NOTE | 2022-01-14 08:37 | PDOC ---
Exam Note: [place] Note: This note is a late entry for 01/13/2022 covers elements not covered in my initial note. Subjective: The patient was reviewed at treatment team meeting individually in the morning on 01/13/2022 with Katherine Moreno, Eliza Muniz (psychosocial rehabilitation counselor), Martina, activity therapy, and Liya TANG, discussed and reviewed the chart. The patient slept 7 hours previous night. Overall her yelling is better. She remains somewhat anxious. Placement is being sought per social service staff and the legal proceedings regarding her guardianship is being pursued as well with social service staff. She does have some chronic pain and we will increase the gabapentin from 100 mg daily to 100 mg twice a day. I met with her in the room and then in the dayroom. Review of Systems: Impaired ambulation in wheelchair. No CV, , pulmonary, eye system symptoms on review. Mental Status Exam: The patient is oriented to herself and situation. She was seated in a wheelchair, somewhat anxious, very accommodative as I met with her. Speech coherent. Abstraction fair. Computation impaired. Language function intact. Attention span short. Mood and affect is anxious. No suicidal or homicidal ideation. Laboratory Data: Reviewed. Impression: Major neurocognitive disorder Alzheimer, vascular, with delusions, depression, behavioral disturbance. Anxiety disorder unspecified. Impulse control disorder unspecified. Plan: No change from initial note. Reviewed drug interactions, risk-benefit ratio. She does have some chronic pain and we will increase the gabapentin from 100 mg daily to 100 mg twice a day. Assessment: Vital Signs/I&O: Vital Signs Date Time Temp Pulse Resp B/P (MAP) Pulse Ox O2 Delivery O2 Flow Rate FiO2 01/14/22 06:09 97.4 72 18 129/59 (82) 95 Room Air I & O 01/13/22 01/13/22 01/14/22 15:00 23:00 07:00 Intake Total 720 ml 240 ml Balance 720 ml 240 ml Current Medications: Meds: Current Medications Medications (Trade) Dose Ordered Sig/Richard Route PRN Reason Start Time Stop Time Status Last Admin Dose Admin Gabapentin (Neurontin) 100 mg BIDWMEALS PO 01/13/22 17:00 01/13/22 17:34 I have reviewed the current psychotropics carefully including drug interactions. Risk benefit ratio favors no change other than as noted in my dictated progress note. Diagnosis: Problems: (1) Impulse control disorder, unspecified (2) Anxiety disorder, unspecified (3) Dementia, vascular, with depression (4) Dementia, vascular, with delusions (5) Dementia in Alzheimer's disease with depression (6) Dementia in Alzheimer's disease with delusions (7) Dementia of the Alzheimer's type with early onset with behavioral disturbance (8) Major neurocognitive disorder SOO BAIRES MD January 14, 2022 08:37
[2022-01-14] MEDS: metFORMIN 500 MG TABLET PO SCH ×2 (08:40→17:21)
[2022-01-14] MEDS: NYSTATIN TOPICAL POWDER 15GM BOTTLE. TP SCH ×2 (08:40→20:01)
[2022-01-14] MEDS: GABAPENTIN 100 MG CAPSULE. PO SCH ×2 (08:40→17:21)
[2022-01-14] MEDS: IPRATROPIUM/ALBUTEROL 20/100mcg/INH INHALER. INH SCH ×4 (08:40→20:01)
[2022-01-14] MEDS: QUEtiapine 25 MG TABLET. PO SCH ×2 (08:41→20:01)
[2022-01-14 16:14] VITALS: BP 129/69
[2022-01-14] MEDS: SERTRALINE 50 MG TABLET. PO SCH (20:01)
[2022-01-14] MEDS: traZODone 50 MG TABLET. PO SCH (20:01)
[2022-01-14] MEDS: MIRTAZAPINE 15 MG TABLET PO SCH (20:01)
[2022-01-14] MEDS: MELATONIN 3 MG TABLET PO SCH (20:01)
--- NOTE | 2022-01-14 21:30 | PDOC ---
Exam Note: [place] Note: Please also refer to the separate dictated note~for this date of service dictated separately.~Patient seen individually. Discussed the patient with Nursing staff reviewed the chart.~Reviewed interim history and current functioning. Reviewed vital signs,~Labs/ Radiology~and current medications noted below. Continue current treatment with the changes noted in the dictated addendum note Assessment: Vital Signs/I&O: Vital Signs Date Time Temp Pulse Resp B/P (MAP) Pulse Ox O2 Delivery O2 Flow Rate FiO2 01/14/22 16:14 97.6 76 16 129/69 (89) 96 Room Air I & O 01/13/22 01/13/22 01/14/22 15:00 23:00 07:00 Intake Total 720 ml 240 ml Balance 720 ml 240 ml Labs: Laboratory Tests Test 01/14/22 07:00 POC SARS CoV-2 Antigen Negative (NEGATIVE) Current Medications: Meds: Laboratory Tests Test 01/14/22 07:00 POC SARS CoV-2 Antigen Negative Current Medications Medications (Trade) Dose Ordered Sig/Richard Route PRN Reason Start Time Stop Time Status Last Admin Dose Admin Acetaminophen (Tylenol) 650 mg PRN Q6HRS PRN PO MILD PAIN / TEMP > 100.3'F 09/27/21 15:00 01/08/22 12:49 Mirtazapine (Remeron) 15 mg QHS PO 09/27/21 21:00 01/14/22 20:01 Olanzapine (ZyPREXA ZYDIS) 2.5 mg PRN Q2HRS PRN PO ANXIETY / AGITATION 09/27/21 15:00 11/27/21 20:14 Quetiapine Fumarate (SEROquel) 25 mg BID PO 09/27/21 21:00 01/14/22 20:01 Sertraline HCl (Zoloft) 50 mg HS PO 09/27/21 21:00 01/14/22 20:01 Trazodone HCl (Desyrel) 25 mg HS PO 09/27/21 21:00 10/05/21 18:14 DC 10/04/21 20:06 Melatonin (Melatonin) 3 mg HS PO 09/27/21 21:00 01/14/22 20:01 Metformin HCl (Glucophage) 500 mg BIDWMEALS PO 09/29/21 17:00 01/14/22 17:21 Nystatin (Nystop) 15 sulma STK-MED ONCE TP 10/04/21 09:36 10/04/21 09:36 DC Trazodone HCl (Desyrel) 50 mg HS PO 10/05/21 21:00 01/14/22 20:01 Trazodone HCl (Desyrel) 50 mg PRN QHS PRN PO INSOMNIA 10/05/21 18:15 12/05/21 20:02 Albuterol/ Ipratropium (Combivent Respimat 20-100 Mcg) 1 puff RTQID INH 10/18/21 20:00 01/14/22 20:01 Azithromycin (Zithromax) 500 mg 1X ONCE PO 10/19/21 16:45 10/19/21 16:46 DC 10/19/21 17:03 Azithromycin (Zithromax) 250 mg DAILY PO 10/20/21 09:00 10/24/21 22:00 DC 10/24/21 08:23 Lactobacillus Rhamnosus (Culturelle) 1 cap BID PO 10/21/21 09:00 11/29/21 16:02 DC 11/29/21 08:10 Diclofenac Sodium (Voltaren) 1 sulma TID TP 10/24/21 14:00 11/07/21 12:35 DC 11/06/21 20:18 Prednisone (Prednisone) 60 mg 1X ONCE PO 10/26/21 11:00 10/26/21 11:01 DC 10/26/21 12:17 Diclofenac Sodium (Voltaren) 1 sulma PRN TID PRN TP MUSCLE PAIN 11/07/21 12:45 12/17/21 08:58 Nystatin (Nystop) 1 sulma BID TP 12/13/21 09:00 01/14/22 20:01 Gabapentin (Neurontin) 100 mg DAILYWSUP PO 12/23/21 17:00 01/13/22 11:26 DC 01/12/22 17:13 Gabapentin (Neurontin) 100 mg BIDWMEALS PO 01/13/22 17:00 01/14/22 17:21 I have reviewed the current psychotropics carefully including drug interactions. Risk benefit ratio favors no change other than as noted in my dictated progress note. Diagnosis: Problems: (1) Impulse control disorder, unspecified (2) Anxiety disorder, unspecified (3) Dementia, vascular, with depression (4) Dementia, vascular, with delusions (5) Dementia in Alzheimer's disease with depression (6) Dementia in Alzheimer's disease with delusions (7) Dementia of the Alzheimer's type with early onset with behavioral disturb ance (8) Major neurocognitive disorder SOO BAIRES MD January 14, 2022 21:30
[2022-01-15 06:03] VITALS: BP 127/64
[2022-01-15 06:39] LABS: BASO % 1 % (0-3); EOS # 0.3 x10^3/uL (0.0-0.7); EOS % 4 % (0-3); HEMATOCRIT 34.2 % (36.0-47.0); HEMOGLOBIN 10.8 g/dL (12.0-15.5); LYMPH # 2.7 x10^3/uL (1.0-4.8); LYMPH % 34 % (24-48); MEAN CORPUSCULAR HEMOGLOBIN 27 pg (25-35); MEAN CORPUSCULAR HGB CONC 32 g/dL (31-37); MEAN CORPUSCULAR VOLUME 85 fL (79-100); MONO # 0.5 x10^3/uL (0.0-1.1); MONO % 6 % (0-9); NEUT # 4.6 x10^3uL (1.8-7.7); NEUT % 57 % (31-73); PLATELET COUNT 176 x10^3/uL (140-400); RED BLOOD COUNT 4.02 x10^6/uL (3.50-5.40); RED CELL DISTRIBUTION WIDTH 14.8 % (11.5-14.5); WHITE BLOOD COUNT 8.2 x10^3/uL (4.0-11.0)
[2022-01-15 06:52] LABS: ALBUMIN 2.7 g/dL (3.4-5.0); ALBUMIN/GLOBULIN RATIO 0.7 (1.0-1.7); CALCIUM 8.6 mg/dL (8.5-10.1); CREATININE 0.9 mg/dL (0.6-1.0); GFR 59.7; POTASSIUM 4.4 mmol/L (3.5-5.1); TOTAL BILIRUBIN 0.2 mg/dL (0.2-1.0); TOTAL PROTEIN 6.7 g/dL (6.4-8.2)
[2022-01-15] MEDS: metFORMIN 500 MG TABLET PO SCH ×2 (08:32→17:33)
[2022-01-15] MEDS: GABAPENTIN 100 MG CAPSULE. PO SCH ×2 (08:32→17:33)
[2022-01-15] MEDS: NYSTATIN TOPICAL POWDER 15GM BOTTLE. TP SCH ×2 (08:32→19:45)
[2022-01-15] MEDS: QUEtiapine 25 MG TABLET. PO SCH ×2 (08:32→19:44)
[2022-01-15] MEDS: IPRATROPIUM/ALBUTEROL 20/100mcg/INH INHALER. INH SCH ×4 (08:33→19:43)
--- NOTE | 2022-01-15 08:44 | PDOC ---
Exam Note: [place] Note: This note is a late entry for 01/14/2022 covers elements not covered in my initial note. Subjective: The patient was seen individually on 01/14/2022, discussed and reviewed the chart with Liya TANG. There has been Covid exposure on the unit and the unit has been placed on quarantine as determined by Infectious Disease Department. The patient slept 7-1/2 hours previous night. She was irritable last night. She makes at times rude comments to others but in a very good natured way, somewhat irritable after breakfast, then she did well after that. I met with her in the dining room. Review of Systems: Impaired ambulation in wheelchair. No CV, , pulmonary, eye system symptoms on review. Mental Status Exam: The patient is oriented to herself and situation. Speech coherent. Abstraction fair. Computation impaired. Language function intact. Attention span short. Mood and affect is anxious. No suicidal or homicidal ideation. Laboratory Data: Reviewed. Impression: Major neurocognitive disorder Alzheimer, vascular, with delusions, depression, behavioral disturbance. Anxiety disorder unspecified. Impulse control disorder unspecified. Plan: No change from initial note. Reviewed drug interactions, risk-benefit ratio. Assessment: Vital Signs/I&O: Vital Signs Date Time Temp Pulse Resp B/P (MAP) Pulse Ox O2 Delivery O2 Flow Rate FiO2 01/15/22 06:03 97.3 77 18 127/64 (85) 93 Room Air I & O 01/14/22 01/14/22 01/15/22 15:00 23:00 07:00 Intake Total 1200 ml 480 ml Balance 1200 ml 480 ml Labs: Laboratory Tests Test 01/15/22 06:04 White Blood Count 8.2 x10^3/uL (4.0-11.0) Red Blood Count 4.02 x10^6/uL (3.50-5.40) Hemoglobin 10.8 g/dL (12.0-15.5) L Hematocrit 34.2 % (36.0-47.0) L Mean Corpuscular Volume 85 fL (79-100) Mean Corpuscular Hemoglobin 27 pg (25-35) Mean Corpuscular Hemoglobin Concent 32 g/dL (31-37) Red Cell Distribution Width 14.8 % (11.5-14.5) H Platelet Count 176 x10^3/uL (140-400) Neutrophils (%) (Auto) 57 % (31-73) Lymphocytes (%) (Auto) 34 % (24-48) Monocytes (%) (Auto) 6 % (0-9) Eosinophils (%) (Auto) 4 % (0-3) H Basophils (%) (Auto) 1 % (0-3) Neutrophils # (Auto) 4.6 x10^3uL (1.8-7.7) Lymphocytes # (Auto) 2.7 x10^3/uL (1.0-4.8) Monocytes # (Auto) 0.5 x10^3/uL (0.0-1.1) Eosinophils # (Auto) 0.3 x10^3/uL (0.0-0.7) Basophils # (Auto) 0.0 x10^3/uL (0.0-0.2) Sodium Level 138 mmol/L (136-145) Potassium Level 4.4 mmol/L (3.5-5.1) Chloride Level 103 mmol/L (98-107) Carbon Dioxide Level 29 mmol/L (21-32) Anion Gap 6 (6-14) Blood Urea Nitrogen 40 mg/dL (7-20) H Creatinine 0.9 mg/dL (0.6-1.0) Estimated GFR (Cockcroft-Gault) 59.7 BUN/Creatinine Ratio 44 (6-20) H Glucose Level 100 mg/dL (70-99) H Calcium Level 8.6 mg/dL (8.5-10.1) Total Bilirubin 0.2 mg/dL (0.2-1.0) Aspartate Amino Transferase (AST) 15 U/L (15-37) Alanine Aminotransferase (ALT) 22 U/L (14-59) Alkaline Phosphatase 116 U/L (46-116) Total Protein 6.7 g/dL (6.4-8.2) Albumin 2.7 g/dL (3.4-5.0) L Albumin/Globulin Ratio 0.7 (1.0-1.7) L Current Medications: I have reviewed the current psychotropics carefully including drug interactions. Risk benefit ratio favors no change other than as noted in my dictated progress note. 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
[2022-01-15 16:44] VITALS: BP 135/76
[2022-01-15] MEDS: traZODone 50 MG TABLET. PO SCH (19:44)
[2022-01-15] MEDS: MELATONIN 3 MG TABLET PO SCH (19:44)
[2022-01-15] MEDS: SERTRALINE 50 MG TABLET. PO SCH (19:44)
[2022-01-15] MEDS: MIRTAZAPINE 15 MG TABLET PO SCH (19:44)
--- NOTE | 2022-01-15 21:52 | PDOC ---
Exam Note: Rtoy Note: Please also refer to the separate dictated note~for this date of service dictated separately.~Patient seen individually. Discussed the patient with Nursing staff reviewed the chart.~Reviewed interim history and current functioning. Reviewed vital signs,~Labs/ Radiology~and current medications noted below. Continue current treatment with the changes noted in the dictated addendum note Assessment: Vital Signs/I&O: Vital Signs Date Time Temp Pulse Resp B/P (MAP) Pulse Ox O2 Delivery O2 Flow Rate FiO2 01/15/22 16:44 97.6 85 17 135/76 (95) 95 01/15/22 06:03 Room Air I & O 01/14/22 01/14/22 01/15/22 15:00 23:00 07:00 Intake Total 1200 ml 480 ml Balance 1200 ml 480 ml Labs: Laboratory Tests Test 01/15/22 06:04 White Blood Count 8.2 x10^3/uL (4.0-11.0) Red Blood Count 4.02 x10^6/uL (3.50-5.40) Hemoglobin 10.8 g/dL (12.0-15.5) L Hematocrit 34.2 % (36.0-47.0) L Mean Corpuscular Volume 85 fL (79-100) Mean Corpuscular Hemoglobin 27 pg (25-35) Mean Corpuscular Hemoglobin Concent 32 g/dL (31-37) Red Cell Distribution Width 14.8 % (11.5-14.5) H Platelet Count 176 x10^3/uL (140-400) Neutrophils (%) (Auto) 57 % (31-73) Lymphocytes (%) (Auto) 34 % (24-48) Monocytes (%) (Auto) 6 % (0-9) Eosinophils (%) (Auto) 4 % (0-3) H Basophils (%) (Auto) 1 % (0-3) Neutrophils # (Auto) 4.6 x10^3uL (1.8-7.7) Lymphocytes # (Auto) 2.7 x10^3/uL (1.0-4.8) Monocytes # (Auto) 0.5 x10^3/uL (0.0-1.1) Eosinophils # (Auto) 0.3 x10^3/uL (0.0-0.7) Basophils # (Auto) 0.0 x10^3/uL (0.0-0.2) Sodium Level 138 mmol/L (136-145) Potassium Level 4.4 mmol/L (3.5-5.1) Chloride Level 103 mmol/L (98-107) Carbon Dioxide Level 29 mmol/L (21-32) Anion Gap 6 (6-14) Blood Urea Nitrogen 40 mg/dL (7-20) H Creatinine 0.9 mg/dL (0.6-1.0) Estimated GFR (Cockcroft-Gault) 59.7 BUN/Creatinine Ratio 44 (6-20) H Glucose Level 100 mg/dL (70-99) H Calcium Level 8.6 mg/dL (8.5-10.1) Total Bilirubin 0.2 mg/dL (0.2-1.0) Aspartate Amino Transferase (AST) 15 U/L (15-37) Alanine Aminotransferase (ALT) 22 U/L (14-59) Alkaline Phosphatase 116 U/L (46-116) Total Protein 6.7 g/dL (6.4-8.2) Albumin 2.7 g/dL (3.4-5.0) L Albumin/Globulin Ratio 0.7 (1.0-1.7) L Current Medications: Meds: Laboratory Tests Test 01/15/22 06:04 White Blood Count 8.2 x10^3/uL Red Blood Count 4.02 x10^6/uL Hemoglobin 10.8 g/dL Hematocrit 34.2 % Mean Corpuscular Volume 85 fL Mean Corpuscular Hemoglobin 27 pg Mean Corpuscular Hemoglobin Concent 32 g/dL Red Cell Distribution Width 14.8 % Platelet Count 176 x10^3/uL Neutrophils (%) (Auto) 57 % Lymphocytes (%) (Auto) 34 % Monocytes (%) (Auto) 6 % Eosinophils (%) (Auto) 4 % Basophils (%) (Auto) 1 % Neutrophils # (Auto) 4.6 x10^3uL Lymphocytes # (Auto) 2.7 x10^3/uL Monocytes # (Auto) 0.5 x10^3/uL Eosinophils # (Auto) 0.3 x10^3/uL Basophils # (Auto) 0.0 x10^3/uL Sodium Level 138 mmol/L Potassium Level 4.4 mmol/L Chloride Level 103 mmol/L Carbon Dioxide Level 29 mmol/L Anion Gap 6 Blood Urea Nitrogen 40 mg/dL Creatinine 0.9 mg/dL Estimated GFR (Cockcroft-Gault) 59.7 BUN/Creatinine Ratio 44 Glucose Level 100 mg/dL Calcium Level 8.6 mg/dL Total Bilirubin 0.2 mg/dL Aspartate Amino Transf (AST/SGOT) 15 U/L Alanine Aminotransferase (ALT/SGPT) 22 U/L Alkaline Phosphatase 116 U/L Total Protein 6.7 g/dL Albumin 2.7 g/dL Albumin/Globulin Ratio 0.7 Current Medications Medications (Trade) Dose Ordered Sig/Richard Route PRN Reason Start Time Stop Time Status Last Admin Dose Admin Acetaminophen (Tylenol) 650 mg PRN Q6HRS PRN PO MILD PAIN / TEMP > 100.3'F 09/27/21 15:00 01/08/22 12:49 Mirtazapine (Remeron) 15 mg QHS PO 09/27/21 21:00 01/15/22 19:44 Olanzapine (ZyPREXA ZYDIS) 2.5 mg PRN Q2HRS PRN PO ANXIETY / AGITATION 09/27/21 15:00 11/27/21 20:14 Quetiapine Fumarate (SEROquel) 25 mg BID PO 09/27/21 21:00 01/15/22 19:44 Sertraline HCl (Zoloft) 50 mg HS PO 09/27/21 21:00 01/15/22 19:44 Trazodone HCl (Desyrel) 25 mg HS PO 09/27/21 21:00 10/05/21 18:14 DC 10/04/21 20:06 Melatonin (Melatonin) 3 mg HS PO 09/27/21 21:00 01/15/22 19:44 Metformin HCl (Glucophage) 500 mg BIDWMEALS PO 09/29/21 17:00 01/15/22 17:33 Nystatin (Nystop) 15 sulma STK-MED ONCE TP 10/04/21 09:36 10/04/21 09:36 DC Trazodone HCl (Desyrel) 50 mg HS PO 10/05/21 21:00 01/15/22 19:44 Trazodone HCl (Desyrel) 50 mg PRN QHS PRN PO INSOMNIA 10/05/21 18:15 12/05/21 20:02 Albuterol/ Ipratropium (Combivent Respimat 20-100 Mcg) 1 puff RTQID INH 10/18/21 20:00 01/15/22 19:43 Azithromycin (Zithromax) 500 mg 1X ONCE PO 10/19/21 16:45 10/19/21 16:46 DC 10/19/21 17:03 Azithromycin (Zithromax) 250 mg DAILY PO 10/20/21 09:00 10/24/21 22:00 DC 10/24/21 08:23 Lactobacillus Rhamnosus (Culturelle) 1 cap BID PO 10/21/21 09:00 11/29/21 16:02 DC 11/29/21 08:10 Diclofenac Sodium (Voltaren) 1 sulma TID TP 10/24/21 14:00 11/07/21 12:35 DC 11/06/21 20:18 Prednisone (Prednisone) 60 mg 1X ONCE PO 10/26/21 11:00 10/26/21 11:01 DC 10/26/21 12:17 Diclofenac Sodium (Voltaren) 1 sulma PRN TID PRN TP MUSCLE PAIN 11/07/21 12:45 12/17/21 08:58 Nystatin (Nystop) 1 sulma BID TP 12/13/21 09:00 01/15/22 19:45 Gabapentin (Neurontin) 100 mg DAILYWSUP PO 12/23/21 17:00 01/13/22 11:26 DC 01/12/22 17:13 Gabapentin (Neurontin) 100 mg BIDWMEALS PO 01/13/22 17:00 01/15/22 17:33 I have reviewed the current psychotropics carefully including drug interactions. Risk benefit ratio favors no change other than as noted in my dictated progress note. Diagnosis: Problems: (1) Impulse control disorder, unspecified (2) Anxiety disorder, unspecified (3) Dementia, vascular, with depression (4) Dementia, vascular, with delusions (5) Dementia in Alzheimer's disease with depression (6) Dementia in Alzheimer's disease with delusions (7) Dementia of the Alzheimer's type with early onset with behavioral disturbance (8) Major neurocognitive disorder SOO BAIRES MD January 15, 2022 21:52
[2022-01-16 06:09] VITALS: BP 132/84
--- NOTE | 2022-01-16 08:27 | PDOC ---
Exam Note: [place] Note: This note is a late entry for 01/15/2022 covers elements not covered in my initial note. Subjective: The patient was seen individually on 01/15/2022, discussed and reviewed the chart with Estefany TANG. There has been Covid exposure on the unit and the unit has been placed on quarantine as determined by Infectious Disease Department. The patient slept 7-3/4 hours previous night. I met with him in the dining room and then in her room. She did not eat much supper but had eaten some lunch. Review of Systems: Impaired ambulation in wheelchair. No CV, , pulmonary, eye system symptoms on review. She states she just does not feel well but nothing specific when questioned. Mental Status Exam: The patient is oriented to herself and situation. Speech coherent. Abstraction fair. Computation impaired. Language function intact. Attention span short. Mood and affect is anxious. No suicidal or homicidal ideation. Laboratory Data: Reviewed. Impression: Major neurocognitive disorder Alzheimer, vascular, with delusions, depression, behavioral disturbance. Anxiety disorder unspecified. Impulse control disorder unspecified. Plan: No change from initial note. Reviewed drug interactions, risk-benefit ratio. Assessment: Vital Signs/I&O: Vital Signs Date Time Temp Pulse Resp B/P (MAP) Pulse Ox O2 Delivery O2 Flow Rate FiO2 01/16/22 06:09 97.4 94 20 132/84 (100) 91 Room Air I & O 01/15/22 01/15/22 01/16/22 15:00 23:00 07:00 Intake Total 600 ml 390 ml Balance 600 ml 390 ml Current Medications: I have reviewed the current psychotropics carefully including drug interactions. Risk benefit ratio favors no change other than as noted in my dictated progress note. Diagnosis: Problems: (1) Impulse control disorder, unspecified (2) Anxiety disorder, unspecified (3) Dementia, vascular, with depression (4) Dementia, vascular, with delusions (5) Dementia in Alzheimer's disease with depression (6) Dementia in Alzheimer's disease with delusions (7) Dementia of the Alzheimer's type with early onset with behavioral disturbance (8) Major neurocognitive disorder SOO BAIRES MD January 16, 2022 08:27
[2022-01-16] MEDS: NYSTATIN TOPICAL POWDER 15GM BOTTLE. TP SCH ×2 (08:30→20:34)
[2022-01-16] MEDS: IPRATROPIUM/ALBUTEROL 20/100mcg/INH INHALER. INH SCH ×4 (08:30→20:33)
[2022-01-16] MEDS: metFORMIN 500 MG TABLET PO SCH ×2 (08:30→17:32)
[2022-01-16] MEDS: QUEtiapine 25 MG TABLET. PO SCH ×2 (08:30→20:34)
[2022-01-16] MEDS: GABAPENTIN 100 MG CAPSULE. PO SCH ×2 (08:30→17:32)
[2022-01-16 16:40] VITALS: BP 124/61
[2022-01-16] MEDS: MIRTAZAPINE 15 MG TABLET PO SCH (20:34)
[2022-01-16] MEDS: MELATONIN 3 MG TABLET PO SCH (20:34)
[2022-01-16] MEDS: traZODone 50 MG TABLET. PO SCH (20:34)
[2022-01-16] MEDS: SERTRALINE 50 MG TABLET. PO SCH (20:34)
--- NOTE | 2022-01-16 21:02 | PDOC ---
Exam Note: [place] Note: Please also refer to the separate dictated note~for this date of service dictated separately.~Patient seen individually. Discussed the patient with Nursing staff reviewed the chart.~Reviewed interim history and current functioning. Reviewed vital signs,~Labs/ Radiology~and current medications noted below. Continue current treatment with the changes noted in the dictated addendum note Assessment: Vital Signs/I&O: Vital Signs Date Time Temp Pulse Resp B/P (MAP) Pulse Ox O2 Delivery O2 Flow Rate FiO2 01/16/22 16:40 98.4 71 18 124/61 (82) 98 01/16/22 06:09 Room Air I & O 01/15/22 01/15/22 01/16/22 15:00 23:00 07:00 Intake Total 600 ml 390 ml Balance 600 ml 390 ml Current Medications: Meds: Current Medications Medications (Trade) Dose Ordered Sig/Richard Route PRN Reason Start Time Stop Time Status Last Admin Dose Admin Acetaminophen (Tylenol) 650 mg PRN Q6HRS PRN PO MILD PAIN / TEMP > 100.3'F 09/27/21 15:00 01/08/22 12:49 Mirtazapine (Remeron) 15 mg QHS PO 09/27/21 21:00 01/16/22 20:34 Olanzapine (ZyPREXA ZYDIS) 2.5 mg PRN Q2HRS PRN PO ANXIETY / AGITATION 09/27/21 15:00 11/27/21 20:14 Quetiapine Fumarate (SEROquel) 25 mg BID PO 09/27/21 21:00 01/16/22 20:34 Sertraline HCl (Zoloft) 50 mg HS PO 09/27/21 21:00 01/16/22 20:34 Trazodone HCl (Desyrel) 25 mg HS PO 09/27/21 21:00 10/05/21 18:14 DC 10/04/21 20:06 Melatonin (Melatonin) 3 mg HS PO 09/27/21 21:00 01/16/22 20:34 Metformin HCl (Glucophage) 500 mg BIDWMEALS PO 09/29/21 17:00 01/16/22 17:32 Nystatin (Nystop) 15 sulma STK-MED ONCE TP 10/04/21 09:36 10/04/21 09:36 DC Trazodone HCl (Desyrel) 50 mg HS PO 10/05/21 21:00 01/16/22 20:34 Trazodone HCl (Desyrel) 50 mg PRN QHS PRN PO INSOMNIA 10/05/21 18:15 12/05/21 20:02 Albuterol/ Ipratropium (Combivent Respimat 20-100 Mcg) 1 puff RTQID INH 10/18/21 20:00 01/16/22 20:33 Azithromycin (Zithromax) 500 mg 1X ONCE PO 10/19/21 16:45 10/19/21 16:46 DC 10/19/21 17:03 Azithromycin (Zithromax) 250 mg DAILY PO 10/20/21 09:00 10/24/21 22:00 DC 10/24/21 08:23 Lactobacillus Rhamnosus (Culturelle) 1 cap BID PO 10/21/21 09:00 11/29/21 16:02 DC 11/29/21 08:10 Diclofenac Sodium (Voltaren) 1 sulma TID TP 10/24/21 14:00 11/07/21 12:35 DC 11/06/21 20:18 Prednisone (Prednisone) 60 mg 1X ONCE PO 10/26/21 11:00 10/26/21 11:01 DC 10/26/21 12:17 Diclofenac Sodium (Voltaren) 1 sulma PRN TID PRN TP MUSCLE PAIN 11/07/21 12:45 12/17/21 08:58 Nystatin (Nystop) 1 sulma BID TP 12/13/21 09:00 01/16/22 20:34 Gabapentin (Neurontin) 100 mg DAILYWSUP PO 12/23/21 17:00 01/13/22 11:26 DC 01/12/22 17:13 Gabapentin (Neurontin) 100 mg BIDWMEALS PO 01/13/22 17:00 01/16/22 17:32 I have reviewed the current psychotropics carefully including drug interactions. Risk benefit ratio favors no change other than as noted in my dictated progress note. Diagnosis: Problems: (1) Impulse control disorder, unspecified (2) Anxiety disorder, unspecified (3) Dementia, vascular, with depression (4) Dementia, vascular, with delusions (5) Dementia in Alzheimer's disease with depression (6) Dementia in Alzheimer's disease with delusions (7) Dementia of the Alzheimer's type with early onset with behavioral disturbance (8) Major neurocognitive disorder SOO BAIRES MD January 16, 2022 21:02
[2022-01-17 06:24] VITALS: BP 131/68
[2022-01-17] MEDS: QUEtiapine 25 MG TABLET. PO SCH ×2 (08:32→20:54)
[2022-01-17] MEDS: GABAPENTIN 100 MG CAPSULE. PO SCH ×2 (08:32→17:29)
[2022-01-17] MEDS: IPRATROPIUM/ALBUTEROL 20/100mcg/INH INHALER. INH SCH ×4 (08:32→20:53)
[2022-01-17] MEDS: metFORMIN 500 MG TABLET PO SCH ×2 (08:37→17:29)
[2022-01-17] MEDS: NYSTATIN TOPICAL POWDER 15GM BOTTLE. TP SCH ×3 (08:37→20:53)
[2022-01-17 16:20] VITALS: BP 155/82
[2022-01-17] MEDS: traZODone 50 MG TABLET. PO SCH (20:54)
[2022-01-17] MEDS: SERTRALINE 50 MG TABLET. PO SCH (20:54)
[2022-01-17] MEDS: MELATONIN 3 MG TABLET PO SCH (20:54)
[2022-01-17] MEDS: MIRTAZAPINE 15 MG TABLET PO SCH (20:54)
--- NOTE | 2022-01-17 21:38 | PDOC ---
Exam Note: [place] Note: This note is a late entry for 01/16/2022 covers elements not covered in my initial note. Subjective: The patient was seen individually on 01/16/2022, discussed and reviewed the chart with Iris TANG. The patient slept 8-3/4 hours previous night. I met with her in the room. She is pleasant, cooperative as I met with her, confused with short-term memory deficits, states she physically feels better than yesterday. Review of Systems: Impaired ambulation in wheelchair. No CV, , pulmonary, eye system symptoms on review. Mental Status Exam: The patient is oriented to herself and situation. Speech coherent. Abstraction fair. Computation impaired. Language function intact. Attention span short. Mood and affect is anxious. No suicidal or homicidal ideation. Laboratory Data: Reviewed. Impression: Major neurocognitive disorder Alzheimer, vascular, with delusions, depression, behavioral disturbance. Anxiety disorder unspecified. Impulse control disorder unspecified. Plan: No change from initial note. Reviewed drug interactions, risk-benefit ratio. Assessment: Vital Signs/I&O: Vital Signs Date Time Temp Pulse Resp B/P (MAP) Pulse Ox O2 Delivery O2 Flow Rate FiO2 01/17/22 16:20 97.4 74 18 155/82 (106) 98 01/17/22 06:24 Room Air I & O 01/16/22 01/16/22 01/17/22 15:00 23:00 07:00 Intake Total 960 ml 360 ml Balance 960 ml 360 ml Current Medications: Meds: Current Medications Medications (Trade) Dose Ordered Sig/Richard Route PRN Reason Start Time Stop Time Status Last Admin Dose Admin Nystatin (Nystop) 1 sulma QID TP 01/17/22 17:00 01/17/22 20:53 I have reviewed the current psychotropics carefully including drug interactions. Risk benefit ratio favors no change other than as noted in my dictated progress note. Diagnosis: Problems: (1) Impulse control disorder, unspecified (2) Anxiety disorder, unspecified (3) Dementia, vascular, with depression (4) Dementia, vascular, with delusions (5) Dementia in Alzheimer's disease with depression (6) Dementia in Alzheimer's disease with delusions (7) Dementia of the Alzheimer's type with early onset with behavioral disturbance (8) Major neurocognitive disorder SOO BAIRES MD January 17, 2022 21:38
--- NOTE | 2022-01-17 22:00 | PDOC ---
Exam Note: [place] Note: Please also refer to the separate dictated note~for this date of service dictated separately.~Patient seen individually. Discussed the patient with Nursing staff reviewed the chart.~Reviewed interim history and current functioning. Reviewed vital signs,~Labs/ Radiology~and current medications noted below. Continue current treatment with the changes noted in the dictated addendum note Assessment: Vital Signs/I&O: Vital Signs Date Time Temp Pulse Resp B/P (MAP) Pulse Ox O2 Delivery O2 Flow Rate FiO2 01/17/22 16:20 97.4 74 18 155/82 (106) 98 01/17/22 06:24 Room Air I & O 01/16/22 01/16/22 01/17/22 15:00 23:00 07:00 Intake Total 960 ml 360 ml Balance 960 ml 360 ml Current Medications: Meds: Current Medications Medications (Trade) Dose Ordered Sig/Richard Route PRN Reason Start Time Stop Time Status Last Admin Dose Admin Acetaminophen (Tylenol) 650 mg PRN Q6HRS PRN PO MILD PAIN / TEMP > 100.3'F 09/27/21 15:00 01/08/22 12:49 Mirtazapine (Remeron) 15 mg QHS PO 09/27/21 21:00 01/17/22 20:54 Olanzapine (ZyPREXA ZYDIS) 2.5 mg PRN Q2HRS PRN PO ANXIETY / AGITATION 09/27/21 15:00 11/27/21 20:14 Quetiapine Fumarate (SEROquel) 25 mg BID PO 09/27/21 21:00 01/17/22 20:54 Sertraline HCl (Zoloft) 50 mg HS PO 09/27/21 21:00 01/17/22 20:54 Trazodone HCl (Desyrel) 25 mg HS PO 09/27/21 21:00 10/05/21 18:14 DC 10/04/21 20:06 Melatonin (Melatonin) 3 mg HS PO 09/27/21 21:00 01/17/22 20:54 Metformin HCl (Glucophage) 500 mg BIDWMEALS PO 09/29/21 17:00 01/17/22 17:29 Nystatin (Nystop) 15 sulma STK-MED ONCE TP 10/04/21 09:36 10/04/21 09:36 DC Trazodone HCl (Desyrel) 50 mg HS PO 10/05/21 21:00 01/17/22 20:54 Trazodone HCl (Desyrel) 50 mg PRN QHS PRN PO INSOMNIA 10/05/21 18:15 12/05/21 20:02 Albuterol/ Ipratropium (Combivent Respimat 20-100 Mcg) 1 puff RTQID INH 10/18/21 20:00 01/17/22 20:53 Azithromycin (Zithromax) 500 mg 1X ONCE PO 10/19/21 16:45 10/19/21 16:46 DC 10/19/21 17:03 Azithromycin (Zithromax) 250 mg DAILY PO 10/20/21 09:00 10/24/21 22:00 DC 10/24/21 08:23 Lactobacillus Rhamnosus (Culturelle) 1 cap BID PO 10/21/21 09:00 11/29/21 16:02 DC 11/29/21 08:10 Diclofenac Sodium (Voltaren) 1 sulma TID TP 10/24/21 14:00 11/07/21 12:35 DC 11/06/21 20:18 Prednisone (Prednisone) 60 mg 1X ONCE PO 10/26/21 11:00 10/26/21 11:01 DC 10/26/21 12:17 Diclofenac Sodium (Voltaren) 1 sulma PRN TID PRN TP MUSCLE PAIN 11/07/21 12:45 12/17/21 08:58 Nystatin (Nystop) 1 sulma BID TP 12/13/21 09:00 01/17/22 15:57 DC 01/17/22 08:37 Gabapentin (Neurontin) 100 mg DAILYWSUP PO 12/23/21 17:00 01/13/22 11:26 DC 01/12/22 17:13 Gabapentin (Neurontin) 100 mg BIDWMEALS PO 01/13/22 17:00 01/17/22 17:29 Nystatin (Nystop) 1 sulma QID TP 01/17/22 17:00 01/17/22 20:53 Current Medications Medications (Trade) Dose Ordered Sig/Richard Route PRN Reason Start Time Stop Time Status Last Admin Dose Admin Nystatin (Nystop) 1 sulma QID TP 01/17/22 17:00 5/13/22 20:53 I have reviewed the current psychotropics carefully including drug interactions. Risk benefit ratio favors no change other than as noted in my dictated progress note. 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
[2022-01-18 06:02] VITALS: BP 149/79
[2022-01-18] MEDS: NYSTATIN TOPICAL POWDER 15GM BOTTLE. TP SCH ×4 (08:00→19:53)
--- NOTE | 2022-01-18 08:34 | PDOC ---
Exam Note: [place] Note: This note is a late entry for 01/17/2022 covers elements not covered in my initial note. Subjective: The patient was seen individually on 01/17/2022, discussed and reviewed the chart with Estefany TANG. The patient slept 9 hours previous night. I met with her in the dining room. She is pleasant, cooperative. Social service staff is actively trying to find placement which has been delayed due to legal complications with her DPOA. Review of Systems: Impaired ambulation in wheelchair. No CV, , pulmonary, eye system symptoms on review. Mental Status Exam: The patient is oriented to herself and situation. Speech coherent. Abstraction fair. Computation impaired. Language function intact. Attention span short. Mood and affect is anxious. No suicidal or homicidal ideation. Laboratory Data: Reviewed. Impression: Major neurocognitive disorder Alzheimer, vascular, with delusions, depression, behavioral disturbance. Anxiety disorder unspecified. Impulse control disorder unspecified. Plan: No change from initial note. Reviewed drug interactions, risk-benefit ratio. Dr. Lake will cover for me from 01/18/2022 until 02/04/2022. Assessment: Vital Signs/I&O: Vital Signs Date Time Temp Pulse Resp B/P (MAP) Pulse Ox O2 Delivery O2 Flow Rate FiO2 01/18/22 06:02 96.2 67 18 149/79 (102) 95 01/17/22 06:24 Room Air I & O 01/17/22 01/17/22 01/18/22 15:00 23:00 07:00 Intake Total 1060 ml 640 ml Balance 1060 ml 640 ml Current Medications: Meds: Current Medications Medications (Trade) Dose Ordered Sig/Richard Route PRN Reason Start Time Stop Time Status Last Admin Dose Admin Nystatin (Nystop) 1 sulma QID TP 01/17/22 17:00 01/17/22 20:53 I have reviewed the current psychotropics carefully including drug interactions. Risk benefit ratio favors no change other than as noted in my dictated progress note. Diagnosis: Problems: (1) Impulse control disorder, unspecified (2) Anxiety disorder, unspecified (3) Dementia, vascular, with depression (4) Dementia, vascular, with delusions (5) Dementia in Alzheimer's disease with depression (6) Dementia in Alzheimer's disease with delusions (7) Dementia of the Alzheimer's type with early onset with behavioral disturbance (8) Major neurocognitive disorder SOO BAIRES MD January 18, 2022 08:34
[2022-01-18] MEDS: GABAPENTIN 100 MG CAPSULE. PO SCH ×2 (08:43→16:37)
[2022-01-18] MEDS: QUEtiapine 25 MG TABLET. PO SCH ×2 (08:43→19:53)
[2022-01-18] MEDS: metFORMIN 500 MG TABLET PO SCH ×2 (08:44→16:37)
[2022-01-18] MEDS: IPRATROPIUM/ALBUTEROL 20/100mcg/INH INHALER. INH SCH ×4 (08:45→19:53)
[2022-01-18 15:48] VITALS: BP 119/71
[2022-01-18] MEDS: SERTRALINE 50 MG TABLET. PO SCH (19:53)
[2022-01-18] MEDS: MELATONIN 3 MG TABLET PO SCH (19:53)
[2022-01-18] MEDS: MIRTAZAPINE 15 MG TABLET PO SCH (19:53)
[2022-01-18] MEDS: traZODone 50 MG TABLET. PO SCH (19:54)
--- NOTE | 2022-01-19 01:06 | PN ---
DATE: 01/18/2022 SUBJECTIVE: The patient was seen today, met with the staff. Chart reviewed and also covering for Dr. Alicea. The patient's behavior remains the same, slight improvement. She is still tended to talk to herself and/or an argument. The patient denies of having any delusional thinking. The patient also exhibiting some mood swings, irritability. Staff also observed some confusion and also suspicious and paranoid at times. She continues to isolate herself. Staff observed her to be hallucinating both visually and auditorily at times. The patient is compliant with the medications. CURRENT MEDICATIONS: Gabapentin 100 mg twice a day, trazodone 50 mg at night, melatonin 3 mg at night, Zoloft 50 mg at night, Seroquel 25 mg twice a day, mirtazapine 15 mg at night, and olanzapine 2.5 mg q. 2 hours p.r.n. LABORATORY DATA: The patient's lab reviewed. ASSESSMENT: 1. Major neurocognitive disorder, vascular with delusions, depression and behavioral disturbances. 2. Anxiety disorder, unspecified. PLAN: Continue with the treatment. LENGTH OF STAY: Five to seven days. The patient is still going through the guardianship proceedings and awaiting for placement. RENEE DR: [place] TID: [id number]
[2022-01-19 06:14] VITALS: BP 126/66
[2022-01-19] MEDS: metFORMIN 500 MG TABLET PO SCH ×2 (08:42→17:18)
[2022-01-19] MEDS: IPRATROPIUM/ALBUTEROL 20/100mcg/INH INHALER. INH SCH ×4 (08:42→20:13)
[2022-01-19] MEDS: QUEtiapine 25 MG TABLET. PO SCH ×2 (08:42→20:13)
[2022-01-19] MEDS: NYSTATIN TOPICAL POWDER 15GM BOTTLE. TP SCH ×4 (08:42→20:14)
[2022-01-19] MEDS: GABAPENTIN 100 MG CAPSULE. PO SCH ×2 (08:42→17:18)
[2022-01-19 15:39] VITALS: BP 125/60
[2022-01-19] MEDS: MIRTAZAPINE 15 MG TABLET PO SCH (20:14)
[2022-01-19] MEDS: MELATONIN 3 MG TABLET PO SCH (20:14)
[2022-01-19] MEDS: traZODone 50 MG TABLET. PO SCH (20:14)
[2022-01-19] MEDS: SERTRALINE 50 MG TABLET. PO SCH (20:14)
--- NOTE | 2022-01-19 23:58 | PN ---
DATE: 01/19/2022 SUBJECTIVE: The patient was seen today. I met with the staff, chart reviewed and also covering for Dr. Alicea. The patient's behavior remains the same. She tends to isolate herself in the room. She continues to be irritable, rice at times. She is constantly holding a conversation with imaginary figures, sometimes loud and argumentative. Staff reports no major behavior problems today. She is medication compliant. OBSERVATION: VITAL SIGNS: Temperature 97.5, blood pressure 126/66, pulse 66, respirations 20, O2 sat 96%. GENERAL: Slept about 7 hours last night. The patient's appetite improved. LABORATORY DATA: The patient's lab reviewed. CURRENT MEDICATIONS: Include gabapentin 100 mg twice a day, trazodone 50 mg at night, Seroquel 25 mg twice a day, Zoloft 50 mg at night, melatonin 3 mg at night and mirtazapine 15 mg at night. She is also on olanzapine 2.5 mg q. 2 hours p.r.n. The patient is not having any major side effects from the medications. ASSESSMENT: 1. Major neurocognitive disorder, vascular with delusion, depression and behavioral disturbances. 2. Anxiety disorder, unspecified. PLAN: To continue with treatment. LENGTH OF STAY: Five days, the patient is still awaiting for placement. BOBBY/POPPYT DR: [place] TID: [id number]
[2022-01-20 05:54] VITALS: BP 118/57
[2022-01-20] MEDS: GABAPENTIN 100 MG CAPSULE. PO SCH ×2 (08:20→17:22)
[2022-01-20] MEDS: NYSTATIN TOPICAL POWDER 15GM BOTTLE. TP SCH ×4 (08:21→19:49)
[2022-01-20] MEDS: metFORMIN 500 MG TABLET PO SCH ×2 (08:21→17:22)
[2022-01-20] MEDS: QUEtiapine 25 MG TABLET. PO SCH ×2 (08:21→19:48)
[2022-01-20] MEDS: IPRATROPIUM/ALBUTEROL 20/100mcg/INH INHALER. INH SCH ×4 (08:21→19:49)
[2022-01-20 15:54] VITALS: BP 117/66
[2022-01-20] MEDS: MELATONIN 3 MG TABLET PO SCH (19:48)
[2022-01-20] MEDS: SERTRALINE 50 MG TABLET. PO SCH (19:48)
[2022-01-20] MEDS: traZODone 50 MG TABLET. PO SCH (19:48)
[2022-01-20] MEDS: MIRTAZAPINE 15 MG TABLET PO SCH (19:48)
[2022-01-21 06:15] VITALS: BP 103/49
[2022-01-21 06:26] LABS: BASO % 1 % (0-3); EOS # 0.3 x10^3/uL (0.0-0.7); EOS % 4 % (0-3); HEMATOCRIT 31.1 % (36.0-47.0); HEMOGLOBIN 9.9 g/dL (12.0-15.5); LYMPH # 3.1 x10^3/uL (1.0-4.8); LYMPH % 44 % (24-48); MEAN CORPUSCULAR HEMOGLOBIN 27 pg (25-35); MEAN CORPUSCULAR HGB CONC 32 g/dL (31-37); MEAN CORPUSCULAR VOLUME 85 fL (79-100); MONO # 0.5 x10^3/uL (0.0-1.1); MONO % 7 % (0-9); NEUT # 3.1 x10^3uL (1.8-7.7); NEUT % 44 % (31-73); PLATELET COUNT 178 x10^3/uL (140-400); RED BLOOD COUNT 3.68 x10^6/uL (3.50-5.40); RED CELL DISTRIBUTION WIDTH 14.3 % (11.5-14.5)
[2022-01-21 06:41] LABS: ALBUMIN 2.5 g/dL (3.4-5.0); ALBUMIN/GLOBULIN RATIO 0.7 (1.0-1.7); CALCIUM 8.8 mg/dL (8.5-10.1); GFR 52.8; POTASSIUM 4.9 mmol/L (3.5-5.1); TOTAL BILIRUBIN 0.2 mg/dL (0.2-1.0); TOTAL PROTEIN 6.3 g/dL (6.4-8.2)
[2022-01-21] MEDS: NYSTATIN TOPICAL POWDER 15GM BOTTLE. TP SCH ×4 (08:46→20:01)
[2022-01-21] MEDS: GABAPENTIN 100 MG CAPSULE. PO SCH ×2 (08:47→17:23)
[2022-01-21] MEDS: QUEtiapine 25 MG TABLET. PO SCH ×2 (08:47→20:00)
[2022-01-21] MEDS: IPRATROPIUM/ALBUTEROL 20/100mcg/INH INHALER. INH SCH ×4 (08:47→20:00)
[2022-01-21] MEDS: metFORMIN 500 MG TABLET PO SCH ×2 (08:47→17:23)
--- NOTE | 2022-01-21 09:28 | PN ---
DATE: 01/20/2022 SUBJECTIVE: The patient was seen today, met with the staff. Chart reviewed and also participated in the treatment review meeting today. The patient continues to show improvement. She has been staying in her room most of the time. Behavior has not changed much. She continues to hold conversation with imaginary figures, but she denies of having any visual or auditory hallucinations. The patient's sleep is fair. Appetite normal. OBSERVATION: VITAL SIGNS: Temperature 97.7, blood pressure 118/57, pulse 64, respirations 20, O2 sat 95%. GENERAL: Slept about 7 hours last night. CURRENT MEDICATIONS: The patient's current medications include gabapentin 100 mg twice a day, trazodone 50 mg at night, mirtazapine 15 mg at night. She is also on olanzapine 2.5 mg q. 2 hours p.r.n. The patient is not experiencing any side effects to medications. LABORATORY DATA: The patient's lab reviewed. ASSESSMENT: 1. Major neurocognitive disorder, vascular with delusion, depression and behavioral disturbances. 2. Anxiety disorder, unspecified. PLAN: To continue with treatment. LENGTH OF STAY: Five days. She is still awaiting for placement. Finally, applying for temporary guardianship and also applying for Medicaid for financial help, so that she could be placed in a prison. LENGTH OF STAY: [address]: [place] TID: [id number]
--- NOTE | 2022-01-21 14:55 | TX PLAN ---
Interdisciplinary Tx Plan Admission Information Sep 27, 2021 at 12:55 Legal Status (on Admission): Voluntary DPOA/Guardian Name: Lucille NieceOscar Bergman Contact Other Contact Name: Jayna Sheikh Contact Verified Code Status: Full Code Allergies: Coded Allergies: No Known Drug Allergies (Unverified , 07/16/21) Diagnoses Primary Diagnosis: 1. 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 Mood disorder, unspecified. Reasons for Admission: Aggressive, Delusions, Agitated, Sig. Change Sleep, Hallucinations, Combative Problem in Patient's Words: Per pt great niece/DPOAАнна who was raised mostly by pt, pt has had a noticable decline over the past year and particularlly over the past couple of months. Up until a year ago, pt was living in her independant living apartment and out of the [place], she moved to [place], [place] and bought a house that she paid winn for. She was then found to be living in very poor conditions without running water and no utilities and overall unable to care for herself. She had a few past hospitalizations but then release to herself and then would be found again living in unsafe conditions. At one point, pt drove herself to Анна's home, but refused to come in to stay, and would only stay in her car. Анна was finally successful at gaining DPOA during one of pt's hospitalizations and also in getting her license revoked. During the past year, family and staff during the different hospitalizations discovered pt was having hallucinations and delusions that seem to continue. Анна is concerned if pt is struggling with onset of dementia or if pt is truly experiencing psychosis and might clear in the future with medication management. Additional Admission Comments: Per intake record, pt refusing UA and cath, sexually inappropriate comments to staff, not sleeping for 30 hours, combative to staff, delusions,auditory hallucinations, verbally aggressive, screaming, cussing, disruptive. Problems Active Problems: Agitation Inactive Problems: Pt has shown improvements. She is less aggressive, delusional, and combative. She, also, is sleeping better. Pt Strengths/Limitations Ability for [place]: Poor Cognitive Functioning/Ability: Poor Communication Skills/Ability: Fair Financial Resources: Fair Insight/Judgement: Poor Intellectual Ability: Fair Physical Health: Poor Social Skills: Fair Stability in Family: Fair Stability in School/Work: Fair Verbal Skills: Fair Discharge Criteria Discharge Criteria: Adequate arrangements @DC, Verbal commit med comply, Improved behavior, Improved mood/thought Other Discharge Comments: None at this time. Preliminary Discharge Plan Preliminary DC Plan: Placement Needed Special Precautions Special Precautions: Agitation/Assault, Swallowing/Choking Fall Risk: High Other Precautions (specify): Pt has a history of falls. Initial D/C Plan Pt will need placement at time of discharge. Identified Discharge Needs: None at this time. Currently Utilized Resources Currently Utilized Resources/P: Great Niece/DPOA-Анна Jj has hired and litigation attorney to assist with guardianship. Prior to Admission: PCP-Dr. Quang Raza Facility-[facility]; contact-CHANA Cruz *Note-Pt will not return to [facility] Referrals Community Resources: None known at this time. Identified Problems/Hx/Goals Objectives/Short-Term Goals Short Term Goals: Control abnormal behavior, Dec. Aggression, Dec. Anxiety/Panic, Dec. Hallucination/Delus, Dec. Outbursts, Medication Stabilization, Monitor Med Effects, Prevent Deterioration, Promote Coping Skill Short Term Goals in Patient's: Assist with proper diagnosis of psychosis vs dementia. Interventions/Frequency Staff Interventions/Frequency&: Psychiatry to assess pt three times per week for medication management. Nursing to assess behaviors, monitor medications, and complete 15 minute checks daily. Social work to see pt at least two times weekly to aid in return to placement. Activities to encourage pt to participate in group activities daily. 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 Education: According to DPOA, pt received a high school diploma and she had some technical college. Community Follow-up PCP Community Provider/Family Inpu: Pt great nigregorio/Анна LANG, provided pt history for the development of the treatment plan. Анна is available for further information should it be needed. Treatment Plan Explained Patient/Veneer Trimmer had this treatment plan explained to him/her as indicated by the signature below and has been given the opportunity to ask questions and make suggestions: Date: Patient/Veneer Trimmer Signature: Status Update Update Pt is eating up to 75% of meals and sleeping up to 7.5 hours per night. Pt is pleasantly confused, cooperative with staff direction and medication compliant. Pt is often heard singing or making jokes with peers. Pt remains to be status quo as guardianship and placement decisions are ongoing. SW to continue to follow up with all parties re: next steps. BILL CAM January 21, 2022 14:55
[2022-01-21 16:07] VITALS: BP 146/82
[2022-01-21] MEDS: MIRTAZAPINE 15 MG TABLET PO SCH (20:00)
[2022-01-21] MEDS: SERTRALINE 50 MG TABLET. PO SCH (20:00)
[2022-01-21] MEDS: traZODone 50 MG TABLET. PO SCH (20:00)
[2022-01-21] MEDS: MELATONIN 3 MG TABLET PO SCH (20:00)
[2022-01-22 05:27] VITALS: BP 146/72
--- NOTE | 2022-01-22 06:35 | PN ---
DATE: 01/21/2022 SUBJECTIVE: The patient was seen today, met with the staff, chart reviewed. I am covering for Dr. Alicea. The patient's staff reports no significant change. She is pleasantly confused, cooperative and medication compliance, stays in her room most of the time. OBSERVATION: VITAL SIGNS: Temperature 97.6, blood pressure 146/82, pulse 85, respirations 20, O2 sat 94%. GENERAL: He slept about 7 hours last night. The patient's appetite normal. CURRENT MEDICATIONS: Remains the same including gabapentin, trazodone, mirtazapine and olanzapine p.r.n. She is not having any side effects to the medications. LABORATORY DATA: The patient's lab reviewed. ASSESSMENT: 1. Major neurocognitive disorder, vascular with delusion, depression and behavioral disturbances. 2. Anxiety disorder, unspecified. PLAN: To continue treatment. LENGTH OF STAY: 5-6 days still awaiting for placement. MELIZA DR: [place] TID: [id number] ABDOULAYE
[2022-01-22] MEDS: QUEtiapine 25 MG TABLET. PO SCH ×2 (08:38→20:24)
[2022-01-22] MEDS: IPRATROPIUM/ALBUTEROL 20/100mcg/INH INHALER. INH SCH ×4 (08:38→20:23)
[2022-01-22] MEDS: metFORMIN 500 MG TABLET PO SCH ×2 (08:39→17:16)
[2022-01-22] MEDS: GABAPENTIN 100 MG CAPSULE. PO SCH ×2 (08:39→17:15)
[2022-01-22] MEDS: NYSTATIN TOPICAL POWDER 15GM BOTTLE. TP SCH ×4 (08:39→20:25)
[2022-01-22] MEDS ORDERED: FLUCONAZOLE 100 MG TABLET. PO SCH (12:30)
[2022-01-22] MEDS ORDERED: FLUCONAZOLE 100 MG TABLET. ONE (12:30)
[2022-01-22 16:03] VITALS: BP 138/64
[2022-01-22] MEDS: traZODone 50 MG TABLET. PO SCH (20:24)
[2022-01-22] MEDS: MELATONIN 3 MG TABLET PO SCH (20:24)
[2022-01-22] MEDS: MIRTAZAPINE 15 MG TABLET PO SCH (20:24)
[2022-01-22] MEDS: SERTRALINE 50 MG TABLET. PO SCH (20:24)
[2022-01-23 05:47] VITALS: BP 136/60
--- NOTE | 2022-01-23 06:42 | PN ---
DATE: 01/22/2022 SUBJECTIVE: The patient was seen today, met with the staff. Chart was reviewed and covering for Dr. Alicea. The patient's behavior remains the same. Continues to be agitated at times, holding a conversation with imaginary figures, but no major behavioral issues. OBSERVATION: VITAL SIGNS: Temperature 97.8, blood pressure 146/72, pulse 73, respirations 20, O2 sat 97%. GENERAL: Slept about 7 hours last night. The patient's appetite is normal. LABORATORY DATA: The patient's lab reviewed. CURRENT MEDICATIONS: Gabapentin 100 mg twice a day, trazodone 50 mg at night and 50 mg at night p.r.n., melatonin 3 mg at night, Zoloft 50 mg at night, Seroquel 25 mg twice a day and mirtazapine 15 mg at night. The patient is also on olanzapine 2.5 mg q. 2 hours p.r.n. ASSESSMENT: 1. Major neurocognitive disorder, vascular with delusion, depression and behavioral disturbances. 2. Anxiety disorder, unspecified. PLAN: To continue with treatment. LENGTH OF STAY: Five to seven days. Still awaiting for placement. BOBBY/ISAURA/SHANNAN DR: BOBBY/dilshad TID: [id number]
[2022-01-23] MEDS: QUEtiapine 25 MG TABLET. PO SCH ×2 (07:56→19:33)
[2022-01-23] MEDS: metFORMIN 500 MG TABLET PO SCH ×2 (07:57→17:00)
[2022-01-23] MEDS: IPRATROPIUM/ALBUTEROL 20/100mcg/INH INHALER. INH SCH ×5 (07:57→19:47)
[2022-01-23] MEDS: GABAPENTIN 100 MG CAPSULE. PO SCH ×2 (07:57→17:00)
[2022-01-23] MEDS: NYSTATIN TOPICAL POWDER 15GM BOTTLE. TP SCH ×4 (08:48→19:36)
[2022-01-23 16:04] VITALS: BP 142/81
[2022-01-23] MEDS: SERTRALINE 50 MG TABLET. PO SCH (19:32)
[2022-01-23] MEDS: MIRTAZAPINE 15 MG TABLET PO SCH (19:33)
[2022-01-23] MEDS: MELATONIN 3 MG TABLET PO SCH (19:33)
[2022-01-23] MEDS: traZODone 50 MG TABLET. PO SCH (19:33)
--- NOTE | 2022-01-24 03:21 | PN ---
DATE: 01/23/2022 SUBJECTIVE: The patient was seen today, met with the staff, chart reviewed and also covering for Dr. Alicea. The patient's behavior remains the same. She stays in her room most of the time and tends to stay in bed. Staff reports no major behavior problem except she talks to herself, seems to be hallucinating both visually and auditorily, but not presenting with any behavior problems. OBSERVATION: VITAL SIGNS: Temperature 98.2, blood pressure 142/81, pulse 72, respirations 16, O2 sat 96%. GENERAL: The patient slept about 6 hours last night. The patient is currently not presenting with any major behavior problems. CURRENT MEDICATIONS: Gabapentin 100 mg twice a day, trazodone 50 mg at night and 50 mg at night p.r.n., melatonin 3 mg at night, Zoloft 50 mg at night, Seroquel 25 mg twice a day, and mirtazapine 15 mg at night. The patient is not exhibiting any side effects to medications. ASSESSMENT: 1. Major neurocognitive disorder, vascular with the delusion, depression and behavioral disturbances. 2. Anxiety disorder, unspecified. PLAN: To continue treatment. LENGTH OF STAY: 5-7 days, awaiting placement. GERALDINE DR: [place] TID: [id number]
[2022-01-24 06:03] VITALS: BP 132/65
[2022-01-24] MEDS: IPRATROPIUM/ALBUTEROL 20/100mcg/INH INHALER. INH SCH ×4 (08:05→20:41)
[2022-01-24] MEDS: QUEtiapine 25 MG TABLET. PO SCH ×2 (08:06→20:41)
[2022-01-24] MEDS: GABAPENTIN 100 MG CAPSULE. PO SCH ×2 (08:06→17:49)
[2022-01-24] MEDS: metFORMIN 500 MG TABLET PO SCH ×2 (08:06→17:49)
[2022-01-24] MEDS: NYSTATIN TOPICAL POWDER 15GM BOTTLE. TP SCH ×4 (08:06→20:42)
[2022-01-24 15:34] VITALS: BP 100/57
[2022-01-24] MEDS: traZODone 50 MG TABLET. PO SCH (20:41)
[2022-01-24] MEDS: MELATONIN 3 MG TABLET PO SCH (20:41)
[2022-01-24] MEDS: MIRTAZAPINE 15 MG TABLET PO SCH (20:41)
[2022-01-24] MEDS: SERTRALINE 50 MG TABLET. PO SCH (20:41)
[2022-01-25 06:03] VITALS: BP 113/63
--- NOTE | 2022-01-25 07:40 | PN ---
DATE: 01/24/2022 SUBJECTIVE: The patient was seen today, met with the staff, chart reviewed. Covering for Dr. Alicea. The patient stays in her room most of the time. Staff reports no major behavior problems. Still disorganized, talk to herself, also hold conversation with imaginary figures. OBSERVATION: VITAL SIGNS: Temperature 98.1, blood pressure 100/57, pulse 72, respirations 20, O2 sat 98%. GENERAL: Sleeping will be 7 hours a day. CURRENT MEDICATIONS: Gabapentin 100 mg twice a day, trazodone 50 mg at night and 50 mg at night p.r.n., melatonin 3 mg at night, Zoloft 50 mg at night, Seroquel 25 mg twice a day and mirtazapine 15 mg at night. She is not exhibiting any side effects to medications. LABORATORY DATA: The patient's lab reviewed. ASSESSMENT: 1. Major neurocognitive disorder, vascular with delusion, depression and behavioral disturbances. 2. Anxiety disorder, unspecified. PLAN: To continue with treatment. LENGTH OF STAY: Five to seven days, awaiting for placement. MADDI DR: [place] TID: [id number]
[2022-01-25] MEDS: IPRATROPIUM/ALBUTEROL 20/100mcg/INH INHALER. INH SCH ×4 (08:00→20:08)
[2022-01-25] MEDS: GABAPENTIN 100 MG CAPSULE. PO SCH ×2 (08:00→17:28)
[2022-01-25] MEDS: metFORMIN 500 MG TABLET PO SCH ×2 (08:00→17:28)
[2022-01-25] MEDS: NYSTATIN TOPICAL POWDER 15GM BOTTLE. TP SCH ×4 (08:23→20:10)
[2022-01-25] MEDS: QUEtiapine 25 MG TABLET. PO SCH ×2 (08:23→20:08)
[2022-01-25 15:39] VITALS: BP 149/74
[2022-01-25] MEDS: MELATONIN 3 MG TABLET PO SCH (20:08)
[2022-01-25] MEDS: SERTRALINE 50 MG TABLET. PO SCH (20:08)
[2022-01-25] MEDS: MIRTAZAPINE 15 MG TABLET PO SCH (20:08)
[2022-01-25] MEDS: traZODone 50 MG TABLET. PO SCH (20:09)
--- NOTE | 2022-01-26 03:58 | PN ---
DATE: 01/25/2022 SUBJECTIVE: The patient was seen today, met with the staff. Chart was reviewed and covering for Dr. Alicea. Staff reports patient's behavior remains the same. She is withdrawn to her room. She talks to herself, but no major behavior problems. OBSERVATION: VITAL SIGNS: Temperature 97.9, blood pressure 113/63, pulse 75, respirations 20, O2 sat 92%. GENERAL: Slept about 7 hours last night. The patient's appetite normal. CURRENT MEDICATIONS: Include gabapentin 100 mg twice a day, trazodone 50 mg at night and 50 mg at night p.r.n., melatonin 3 mg at night, Zoloft 50 mg at night, Seroquel 25 mg twice a day and mirtazapine 15 mg at night. The patient is not showing any side effects to medications. ASSESSMENT: 1. Major neurocognitive disorder, vascular with delusion, depression and behavioral disturbances. 2. Anxiety disorder, unspecified. PLAN: To continue with treatment. LENGTH OF STAY: Five to seven days. Awaiting for placement. MADDI DR: [place] TID: [id number]
[2022-01-26 05:50] VITALS: BP 124/73
[2022-01-26] MEDS: IPRATROPIUM/ALBUTEROL 20/100mcg/INH INHALER. INH SCH ×4 (08:42→19:44)
[2022-01-26] MEDS: NYSTATIN TOPICAL POWDER 15GM BOTTLE. TP SCH ×4 (08:43→19:45)
[2022-01-26] MEDS: GABAPENTIN 100 MG CAPSULE. PO SCH ×2 (08:43→17:29)
[2022-01-26] MEDS: metFORMIN 500 MG TABLET PO SCH ×2 (08:43→17:29)
[2022-01-26] MEDS: QUEtiapine 25 MG TABLET. PO SCH ×2 (08:43→19:45)
[2022-01-26] MEDS ORDERED: FLUCONAZOLE 100 MG TABLET. ONE (12:30)
[2022-01-26 16:02] VITALS: BP 127/76
[2022-01-26] MEDS: MELATONIN 3 MG TABLET PO SCH (19:44)
[2022-01-26] MEDS: MIRTAZAPINE 15 MG TABLET PO SCH (19:44)
[2022-01-26] MEDS: traZODone 50 MG TABLET. PO SCH (19:44)
[2022-01-26] MEDS: SERTRALINE 50 MG TABLET. PO SCH (19:45)
[2022-01-27 06:04] VITALS: BP 119/53
[2022-01-27 06:56] LABS: ALBUMIN 2.5 g/dL (3.4-5.0); ALBUMIN/GLOBULIN RATIO 0.7 (1.0-1.7); CALCIUM 8.4 mg/dL (8.5-10.1); GFR 52.8; POTASSIUM 4.7 mmol/L (3.5-5.1); TOTAL BILIRUBIN 0.1 mg/dL (0.2-1.0); TOTAL PROTEIN 6.3 g/dL (6.4-8.2)
[2022-01-27 07:24] LABS: BASO % 0 % (0-3); EOS # 0.4 x10^3/uL (0.0-0.7); EOS % 5 % (0-3); HEMATOCRIT 31.1 % (36.0-47.0); LYMPH # 2.8 x10^3/uL (1.0-4.8); LYMPH % 40 % (24-48); MEAN CORPUSCULAR HEMOGLOBIN 27 pg (25-35); MEAN CORPUSCULAR HGB CONC 32 g/dL (31-37); MEAN CORPUSCULAR VOLUME 85 fL (79-100); MONO # 0.4 x10^3/uL (0.0-1.1); MONO % 6 % (0-9); NEUT # 3.5 x10^3uL (1.8-7.7); NEUT % 49 % (31-73); PLATELET COUNT 172 x10^3/uL (140-400); RED BLOOD COUNT 3.66 x10^6/uL (3.50-5.40); RED CELL DISTRIBUTION WIDTH 14.4 % (11.5-14.5); WHITE BLOOD COUNT 7.2 x10^3/uL (4.0-11.0)
[2022-01-27] MEDS: IPRATROPIUM/ALBUTEROL 20/100mcg/INH INHALER. INH SCH ×4 (08:24→20:02)
[2022-01-27] MEDS: metFORMIN 500 MG TABLET PO SCH ×2 (08:24→17:18)
[2022-01-27] MEDS: NYSTATIN TOPICAL POWDER 15GM BOTTLE. TP SCH ×4 (08:24→20:03)
[2022-01-27] MEDS: GABAPENTIN 100 MG CAPSULE. PO SCH ×2 (08:24→17:18)
[2022-01-27] MEDS: QUEtiapine 25 MG TABLET. PO SCH ×2 (08:24→20:03)
--- NOTE | 2022-01-27 09:37 | PN ---
DATE: 01/26/2022 SUBJECTIVE: The patient was seen today, met with the staff, chart reviewed and covering for Dr. Alicea. Staff reports no major behavior problems except periods of confusion, disorganized thinking and also talked to herself, holding a conversation with imaginary figures. She is medication compliant. Her behavior has been appropriate otherwise. OBSERVATION: VITAL SIGNS: Temperature 97.8, blood pressure 124/73, pulse 85, respirations 20, O2 sat 93%. GENERAL: Slept about 6 hours last night. The patient's appetite normal. CURRENT MEDICATIONS: Gabapentin 100 mg twice a day, trazodone 50 mg at night and 50 mg at night p.r.n., melatonin 3 mg at night, Zoloft 50 mg at night, Seroquel 25 mg twice a day and mirtazapine 15 mg at night. The patient is not exhibiting any side effects to medications. LABORATORY DATA: The patient's lab reviewed. ASSESSMENT: 1. Major neurocognitive disorder, vascular with delusion, depression and behavioral disturbances. 2. Anxiety disorder, unspecified. PLAN: To continue treatment. LENGTH OF STAY: Five days and awaiting for placement. ZHANG DR: [place] TID: [id number]
--- NOTE | 2022-01-27 15:54 | TX PLAN ---
Interdisciplinary Tx Plan Admission Information Sep 27, 2021 at 12:55 Legal Status (on Admission): Voluntary DPOA/Guardian Name: Lucille NieceOscar Bergman Contact Other Contact Name: Jayna Sheikh Contact Verified Code Status: Full Code Allergies: Coded Allergies: No Known Drug Allergies (Unverified , 07/16/21) Diagnoses Primary Diagnosis: 1. 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 Mood disorder, unspecified. Reasons for Admission: Aggressive, Delusions, Agitated, Sig. Change Sleep, Hallucinations, Combative Problem in Patient's Words: Per pt great niece/DPOAАнна who was raised mostly by pt, pt has had a noticable decline over the past year and particularlly over the past couple of months. Up until a year ago, pt was living in her independant living apartment and out of the [place], she moved to [place], [place] and bought a house that she paid winn for. She was then found to be living in very poor conditions without running water and no utilities and overall unable to care for herself. She had a few past hospitalizations but then release to herself and then would be found again living in unsafe conditions. At one point, pt drove herself to Анна's home, but refused to come in to stay, and would only stay in her car. Анна was finally successful at gaining DPOA during one of pt's hospitalizations and also in getting her license revoked. During the past year, family and staff during the different hospitalizations discovered pt was having hallucinations and delusions that seem to continue. Анна is concerned if pt is struggling with onset of dementia or if pt is truly experiencing psychosis and might clear in the future with medication management. Additional Admission Comments: Per intake record, pt refusing UA and cath, sexually inappropriate comments to staff, not sleeping for 30 hours, combative to staff, delusions,auditory hallucinations, verbally aggressive, screaming, cussing, disruptive. Problems Active Problems: Agitation Inactive Problems: Pt has shown improvements. She is less aggressive, delusional, and combative. She, also, is sleeping better. Pt Strengths/Limitations Ability for [place]: Poor Cognitive Functioning/Ability: Poor Communication Skills/Ability: Fair Financial Resources: Fair Insight/Judgement: Poor Intellectual Ability: Fair Physical Health: Poor Social Skills: Fair Stability in Family: Fair Stability in School/Work: Fair Verbal Skills: Fair Discharge Criteria Discharge Criteria: Adequate arrangements @DC, Verbal commit med comply, Improved behavior, Improved mood/thought Other Discharge Comments: None at this time. Preliminary Discharge Plan Preliminary DC Plan: Placement Needed Special Precautions Special Precautions: Agitation/Assault, Swallowing/Choking Fall Risk: High Other Precautions (specify): Pt has a history of falls. Initial D/C Plan Pt will need placement at time of discharge. Identified Discharge Needs: None at this time. Currently Utilized Resources Currently Utilized Resources/P: Great Niece/DPOA-Анна Jj has hired and county attorney to assist with guardianship. Prior to Admission: PCP-Dr. Quang Raza Facility-[facility]; contact-CHANA Cruz *Note-Pt will not return to [facility] Referrals Community Resources: None known at this time. Identified Problems/Hx/Goals Objectives/Short-Term Goals Short Term Goals: Control abnormal behavior, Dec. Aggression, Dec. Anxiety/Panic, Dec. Hallucination/Delus, Dec. Outbursts, Medication Stabilization, Monitor Med Effects, Prevent Deterioration, Promote Coping Skill Short Term Goals in Patient's: Assist with proper diagnosis of psychosis vs dementia. Interventions/Frequency Staff Interventions/Frequency&: Psychiatry to assess pt three times per week for medication management. Nursing to assess behaviors, monitor medications, and complete 15 minute checks daily. Social work to see pt at least two times weekly to aid in return to placement. Activities to encourage pt to participate in group activities daily. 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 Education: According to DPOA, pt received a high school diploma and she had some technical college. Community Follow-up PCP Community Provider/Family Inpu: Pt great nigregorio/Анна LANG, provided pt history for the development of the treatment plan. Анна is available for further information should it be needed. Treatment Plan Explained Patient/Padded Products Inspector Trimmer had this treatment plan explained to him/her as indicated by the signature below and has been given the opportunity to ask questions and make suggestions: Date: Patient/Padded Products Inspector Trimmer Signature: Status Update Update Pt has been eating 80% of her meals and sleeping approximately 7 hours at night. Pt continues to be pleasantly confused and cooperative with cares. She is medication compliant and will sing made up songs down the [place] going to her room and dining area. She is pleasant with others including staff and other patients. Guardianship is currently being worked on through another legal team who will also be working to assist in getting pt financial matters in order so that Medicaid can be applied for and eventually placement pursued. SW remains involved to assist with guardianship process and placement. LINDA BLACKWELL January 27, 2022 15:54
[2022-01-27 16:02] VITALS: BP 129/55
[2022-01-27] MEDS: MIRTAZAPINE 15 MG TABLET PO SCH (20:03)
[2022-01-27] MEDS: SERTRALINE 50 MG TABLET. PO SCH (20:03)
[2022-01-27] MEDS: MELATONIN 3 MG TABLET PO SCH (20:03)
[2022-01-27] MEDS: traZODone 50 MG TABLET. PO SCH (20:03)
--- NOTE | 2022-01-28 05:32 | PN ---
DATE: 01/27/2022 SUBJECTIVE: The patient was seen today, met with the staff, chart reviewed and covering for Dr. Alicea. Staff reports no major behavioral problems. She tends to isolate herself, sleeps quite a bit, appetite normal. Continues to have difficulty structuring her time. The patient tends to hold a conversation with imaginary figures. The patient occasionally becomes angry, agitated easily. OBSERVATION: VITAL SIGNS: Temperature 98.4, blood pressure 129/55, pulse 75, respirations 16, O2 sat 94%. GENERAL: The patient slept about 7 hours last night. CURRENT MEDICATIONS: Gabapentin 100 mg twice a day, trazodone 50 mg at night and 50 mg at night p.r.n., melatonin 3 mg at night. The patient is also on Seroquel 25 mg twice a day, mirtazapine 15 mg at night, and Zoloft 50 mg at night. The patient is not having any side effects to medications. LABORATORY DATA: Reviewed. ASSESSMENT: 1. Major neurocognitive disorder, vascular with the delusion, depression and behavioral disturbances. 2. Anxiety disorder, unspecified. PLAN: To continue with the treatment. LENGTH OF STAY: 3-5 days. Awaiting for placement. GERALDINE DR: [place] TID: [id number]
[2022-01-28 05:58] VITALS: BP 106/57
[2022-01-28] MEDS: NYSTATIN TOPICAL POWDER 15GM BOTTLE. TP SCH ×4 (08:25→19:39)
[2022-01-28] MEDS: QUEtiapine 25 MG TABLET. PO SCH ×2 (08:25→19:38)
[2022-01-28] MEDS: GABAPENTIN 100 MG CAPSULE. PO SCH ×2 (08:25→17:39)
[2022-01-28] MEDS: metFORMIN 500 MG TABLET PO SCH ×2 (08:25→17:39)
[2022-01-28] MEDS: IPRATROPIUM/ALBUTEROL 20/100mcg/INH INHALER. INH SCH ×4 (08:25→19:38)
[2022-01-28 16:03] VITALS: BP 130/70
[2022-01-28] MEDS: MELATONIN 3 MG TABLET PO SCH (19:38)
[2022-01-28] MEDS: SERTRALINE 50 MG TABLET. PO SCH (19:38)
[2022-01-28] MEDS: traZODone 50 MG TABLET. PO SCH (19:38)
[2022-01-28] MEDS: MIRTAZAPINE 15 MG TABLET PO SCH (19:38)
[2022-01-29 06:15] VITALS: BP 130/55
[2022-01-29] MEDS: GABAPENTIN 100 MG CAPSULE. PO SCH ×2 (08:33→17:10)
[2022-01-29] MEDS: QUEtiapine 25 MG TABLET. PO SCH ×2 (08:34→19:52)
[2022-01-29] MEDS: IPRATROPIUM/ALBUTEROL 20/100mcg/INH INHALER. INH SCH ×4 (08:34→19:51)
[2022-01-29] MEDS: metFORMIN 500 MG TABLET PO SCH ×2 (08:34→17:09)
[2022-01-29] MEDS: NYSTATIN TOPICAL POWDER 15GM BOTTLE. TP SCH ×4 (08:34→19:53)
--- NOTE | 2022-01-29 13:22 | PN ---
DATE: 01/28/2022 SUBJECTIVE: The patient was seen today, met with the staff. Chart was reviewed. I am covering for Dr. Alicea. The patient's behavior remains the same. The patient tends to stay most of the time in her room. The patient is also loud, angry at times. The patient still has hallucinations, holding a conversation with imaginary figures. The patient is participating in most of the activities. OBSERVATION: VITAL SIGNS: Temperature 97.0, blood pressure 130/70, pulse 71, respirations 20, O2 sat 94%. GENERAL: Slept about 10 hours last night. LABORATORY DATA: The patient's lab reviewed. ASSESSMENT: 1. Major neurocognitive disorder, vascular, with delusion, depression and behavioral disturbances. 2. Anxiety disorder, unspecified. PLAN: To continue with the treatment. LENGTH OF STAY: 3-5 days. Awaiting for placement. CUAUHTEMOC/ZOEY DR: [place] TID: [id number]
[2022-01-29 16:19] VITALS: BP 135/82
[2022-01-29] MEDS: MELATONIN 3 MG TABLET PO SCH (19:52)
[2022-01-29] MEDS: SERTRALINE 50 MG TABLET. PO SCH (19:52)
[2022-01-29] MEDS: MIRTAZAPINE 15 MG TABLET PO SCH (19:52)
[2022-01-29] MEDS: traZODone 50 MG TABLET. PO SCH (19:52)
--- NOTE | 2022-01-30 06:13 | PN ---
DATE: 01/29/2022 SUBJECTIVE: The patient was seen today, met with the staff, chart was reviewed and covering for Dr. Alicea. Staff reports she is med compliant, still confused, disorganized, still having some psychotic symptoms, being delusional and paranoid. No major behavior problems. OBSERVATION: VITAL SIGNS: Temperature 97.7, blood pressure 130/55, pulse 69, respirations 18, O2 sat 92%. Slept about 7 hours last night. The patient's appetite normal. CURRENT MEDICATIONS: Gabapentin 100 mg twice a day, trazodone 50 mg at night and 50 mg at night p.r.n., melatonin 3 mg at night, Zoloft 50 mg at night, Seroquel 25 mg twice a day, mirtazapine 15 mg at night and olanzapine 2.5 mg q. 2 hours p.r.n. LABORATORY DATA: The patient's lab reviewed. ASSESSMENT: 1. Major neurocognitive disorder, vascular, with delusion, depression and behavioral disturbances. 2. Anxiety disorder, unspecified. PLAN: Continue with the treatment. LENGTH OF STAY: 3-5 days. Awaiting for placement. HERMAN DR: [place] TID: [id number]
[2022-01-30 06:16] VITALS: BP 112/66
[2022-01-30] MEDS ORDERED: DIPHENOXYLATE/ATROPINE TABLET. PO PRN (06:30)
[2022-01-30] MEDS: QUEtiapine 25 MG TABLET. PO SCH ×2 (08:57→20:33)
[2022-01-30] MEDS: metFORMIN 500 MG TABLET PO SCH ×2 (08:57→17:47)
[2022-01-30] MEDS: IPRATROPIUM/ALBUTEROL 20/100mcg/INH INHALER. INH SCH ×4 (08:57→20:32)
[2022-01-30] MEDS: NYSTATIN TOPICAL POWDER 15GM BOTTLE. TP SCH ×4 (08:57→20:35)
[2022-01-30] MEDS: GABAPENTIN 100 MG CAPSULE. PO SCH ×2 (08:57→17:48)
[2022-01-30 16:32] VITALS: BP 127/58
[2022-01-30] MEDS: SERTRALINE 50 MG TABLET. PO SCH (20:33)
[2022-01-30] MEDS: MELATONIN 3 MG TABLET PO SCH (20:33)
[2022-01-30] MEDS: MIRTAZAPINE 15 MG TABLET PO SCH (20:33)
[2022-01-30] MEDS: traZODone 50 MG TABLET. PO SCH (20:33)
--- NOTE | 2022-01-31 04:45 | PN ---
DATE: 01/30/2022 SUBJECTIVE: The patient was seen today, met with the staff. Chart was reviewed and covering for Dr. Alicea. Staff reports no major change. She is medication compliant; periods of confusion, disorganized thinking, mood swings and tends to stay in her room most of the time. OBSERVATION: VITAL SIGNS: Temperature 97.1, blood pressure 112/66, pulse 72, respirations 20, O2 sat 95%. GENERAL: Slept about 8 hours last night. The patient's appetite normal. CURRENT MEDICATIONS: Gabapentin 100 mg twice a day, trazodone 50 mg at night and 50 mg at night p.r.n., melatonin 3 mg at night, Zoloft 50 mg at night, Seroquel 25 mg twice a day, mirtazapine 15 mg at night, and olanzapine 2.5 mg q. 2 hours p.r.n. LABORATORY DATA: The patient's lab reviewed. ASSESSMENT: 1. Major neurocognitive disorder, vascular with delusion, depression and behavioral disturbances. 2. Anxiety disorder, unspecified. PLAN: To continue with the treatment. LENGTH OF STAY: Three to five days. Awaiting for placement. MADDI/HENRY DR: [place] TID: [id number] [facility]T HOSPITALRadha
[2022-01-31 05:42] VITALS: BP 115/64
[2022-01-31] MEDS: NYSTATIN TOPICAL POWDER 15GM BOTTLE. TP SCH ×4 (07:55→20:21)
[2022-01-31] MEDS: metFORMIN 500 MG TABLET PO SCH ×2 (07:55→17:22)
[2022-01-31] MEDS: QUEtiapine 25 MG TABLET. PO SCH ×2 (07:55→20:21)
[2022-01-31] MEDS: GABAPENTIN 100 MG CAPSULE. PO SCH ×2 (07:55→17:22)
[2022-01-31] MEDS: IPRATROPIUM/ALBUTEROL 20/100mcg/INH INHALER. INH SCH ×4 (07:55→20:00)
[2022-01-31 15:32] VITALS: BP 115/70
[2022-01-31] MEDS: MIRTAZAPINE 15 MG TABLET PO SCH (20:21)
[2022-01-31] MEDS: traZODone 50 MG TABLET. PO SCH (20:21)
[2022-01-31] MEDS: MELATONIN 3 MG TABLET PO SCH (20:21)
[2022-01-31] MEDS: SERTRALINE 50 MG TABLET. PO SCH (20:21)
[2022-02-01 05:47] VITALS: BP 127/56
[2022-02-01] MEDS: QUEtiapine 25 MG TABLET. PO SCH ×2 (08:08→20:42)
[2022-02-01] MEDS: NYSTATIN TOPICAL POWDER 15GM BOTTLE. TP SCH ×4 (08:09→20:43)
[2022-02-01] MEDS: GABAPENTIN 100 MG CAPSULE. PO SCH ×2 (08:09→17:11)
[2022-02-01] MEDS: metFORMIN 500 MG TABLET PO SCH ×2 (08:09→17:11)
[2022-02-01] MEDS: IPRATROPIUM/ALBUTEROL 20/100mcg/INH INHALER. INH SCH ×4 (08:09→20:43)
--- NOTE | 2022-02-01 10:28 | PN ---
DATE: 01/31/2022 SUBJECTIVE: The patient was seen today, met with the staff, chart was reviewed, I am covering for Dr. Alicea. Staff reports no major problems, behavior remains the same, she is medication compliant, stays in bed most of the time. No overt psychotic symptoms, but the patient still talks to herself and/or conversation with imaginary figures. OBSERVATION: VITAL SIGNS: Temperature 97.6, blood pressure 115/70, pulse 77, respirations 18, O2 sat 96%. She slept about 10 hours last night. The patient is not having any physical complaints. CURRENT MEDICATIONS: Gabapentin 100 mg twice a day, trazodone 50 mg at night and 50 mg at night p.r.n., melatonin 3 mg at night, Zoloft 50 mg at night, Seroquel 25 mg twice a day, mirtazapine 15 mg at night, and olanzapine 2.5 mg q. 2 hours p.r.n. LABORATORY DATA: The patient's lab reviewed. The patient currently not experiencing any major medical issues. No side effects to the medications. ASSESSMENT: 1. Major neurocognitive disorder, vascular with delusion, depression and behavioral disturbances. 2. Anxiety disorder, unspecified. PLAN: To continue with the treatment. LENGTH OF STAY: Three to five days. BOBBY/MOLLY/PAULINE DR: BOBBY/dilshad TID: [id number]
[2022-02-01 16:07] VITALS: BP 131/68
[2022-02-01] MEDS: MELATONIN 3 MG TABLET PO SCH (20:42)
[2022-02-01] MEDS: SERTRALINE 50 MG TABLET. PO SCH (20:42)
[2022-02-01] MEDS: traZODone 50 MG TABLET. PO SCH (20:42)
[2022-02-01] MEDS: MIRTAZAPINE 15 MG TABLET PO SCH (20:42)
[2022-02-02] MEDS: traZODone 50 MG TABLET. PO PRN (00:36)
--- NOTE | 2022-02-02 02:01 | PN ---
DATE: 02/01/2022 SUBJECTIVE: The patient was seen today, met with the staff. Chart was reviewed. I am covering for Dr. Alicea. Staff reports no major behavioral problems. She tends to isolate herself, sleeps most of the day, but she is able to get up and go to the dining room. Her appetite normal. The patient is sleeping about 9-10 hours at night. CURRENT MEDICATIONS: Gabapentin 100 mg twice a day, trazodone 50 mg at night and 50 mg at night p.r.n., melatonin 3 mg at night, Zoloft 50 mg at night, Seroquel 25 mg twice a day, mirtazapine 15 mg at night, and olanzapine 2.5 mg q. 2 hours p.r.n. LABORATORY DATA: The patient's lab reviewed. ASSESSMENT: 1. Major neurocognitive disorder, vascular with delusion, depression and behavioral disturbances. 2. Anxiety disorder, unspecified. PLAN: To continue with the treatment. LENGTH OF STAY: 3-4 days, awaiting for placement. BOBBY/MARGI DR: [place] TID: [id number]
[2022-02-02 05:53] VITALS: BP 145/77
[2022-02-02] MEDS: metFORMIN 500 MG TABLET PO SCH ×2 (08:28→17:51)
[2022-02-02] MEDS: NYSTATIN TOPICAL POWDER 15GM BOTTLE. TP SCH ×4 (08:28→20:51)
[2022-02-02] MEDS: IPRATROPIUM/ALBUTEROL 20/100mcg/INH INHALER. INH SCH ×4 (08:28→20:51)
[2022-02-02] MEDS: GABAPENTIN 100 MG CAPSULE. PO SCH ×2 (08:29→17:51)
[2022-02-02] MEDS: QUEtiapine 25 MG TABLET. PO SCH ×2 (08:29→20:50)
[2022-02-02 15:59] VITALS: BP 124/61
[2022-02-02] MEDS: traZODone 50 MG TABLET. PO SCH (20:50)
[2022-02-02] MEDS: MIRTAZAPINE 15 MG TABLET PO SCH (20:50)
[2022-02-02] MEDS: MELATONIN 3 MG TABLET PO SCH (20:50)
[2022-02-02] MEDS: SERTRALINE 50 MG TABLET. PO SCH (20:50)
--- NOTE | 2022-02-03 01:43 | PN ---
DATE: 02/02/2022 SUBJECTIVE: The patient was seen today, met with the staff, chart reviewed and covering for Dr. Baires. Staff reports no major behavior problems. She spent most of the time in bed and no change in her appetite. The patient is compliant with the medications. OBSERVATION: VITAL SIGNS: Temperature 96.8, blood pressure 145/77, pulse 63, respirations 20, O2 sat 98%. GENERAL: Slept about 7 hours last night. CURRENT MEDICATIONS: Gabapentin 100 mg twice a day, trazodone 50 mg at night and 50 mg at night p.r.n., melatonin 3 mg at night, Zoloft 50 mg at night, Seroquel 25 mg twice a day, mirtazapine 15 mg at night and olanzapine 2.5 mg q. 2 hours p.r.n. LABORATORY DATA: Reviewed. ASSESSMENT: 1. Major neurocognitive disorder, vascular with delusion, depression and behavioral disturbances. 2. Anxiety disorder, unspecified. PLAN: To continue with treatment. LENGTH OF STAY: 3 to 4 days, awaiting for placement. BOBBY DR: BOBBY/dilshad TID: [id number] CC: SOO BAIRES MD
[2022-02-03 05:31] VITALS: BP 122/68
[2022-02-03 06:39] LABS: BASO # 0.1 x10^3/uL (0.0-0.2); BASO % 1 % (0-3); EOS # 0.4 x10^3/uL (0.0-0.7); EOS % 6 % (0-3); HEMOGLOBIN 11.1 g/dL (12.0-15.5); LYMPH # 2.4 x10^3/uL (1.0-4.8); LYMPH % 34 % (24-48); MEAN CORPUSCULAR HEMOGLOBIN 27 pg (25-35); MEAN CORPUSCULAR HGB CONC 33 g/dL (31-37); MEAN CORPUSCULAR VOLUME 83 fL (79-100); MONO # 0.5 x10^3/uL (0.0-1.1); MONO % 7 % (0-9); NEUT # 3.7 x10^3uL (1.8-7.7); NEUT % 53 % (31-73); PLATELET COUNT 169 x10^3/uL (140-400); RED BLOOD COUNT 4.09 x10^6/uL (3.50-5.40)
[2022-02-03 06:49] LABS: ALBUMIN 2.6 g/dL (3.4-5.0); ALBUMIN/GLOBULIN RATIO 0.7 (1.0-1.7); CALCIUM 8.8 mg/dL (8.5-10.1); CREATININE 0.9 mg/dL (0.6-1.0); GFR 59.7; POTASSIUM 4.4 mmol/L (3.5-5.1); TOTAL BILIRUBIN 0.1 mg/dL (0.2-1.0); TOTAL PROTEIN 6.6 g/dL (6.4-8.2)
[2022-02-03] MEDS: GABAPENTIN 100 MG CAPSULE. PO SCH ×2 (08:21→17:13)
[2022-02-03] MEDS: NYSTATIN TOPICAL POWDER 15GM BOTTLE. TP SCH ×4 (08:21→20:24)
[2022-02-03] MEDS: metFORMIN 500 MG TABLET PO SCH ×2 (08:21→17:13)
[2022-02-03] MEDS: QUEtiapine 25 MG TABLET. PO SCH ×2 (08:21→20:24)
[2022-02-03] MEDS: IPRATROPIUM/ALBUTEROL 20/100mcg/INH INHALER. INH SCH ×4 (08:21→20:24)
[2022-02-03 16:10] VITALS: BP 114/70
[2022-02-03] MEDS: SERTRALINE 50 MG TABLET. PO SCH (20:24)
[2022-02-03] MEDS: MIRTAZAPINE 15 MG TABLET PO SCH (20:24)
[2022-02-03] MEDS: traZODone 50 MG TABLET. PO SCH (20:24)
[2022-02-03] MEDS: MELATONIN 3 MG TABLET PO SCH (20:24)
--- NOTE | 2022-02-04 00:24 | PN ---
DATE: 02/03/2022 SUBJECTIVE: The patient was seen today, met with the staff. Chart was reviewed and covering for Dr. Alicea. Staff reports social withdrawal, stays in her room most of the time, compliant with the medications. The patient is friendly, but confused, interacting with the staff and needs assistance with ADLs. OBSERVATIONS: VITAL SIGNS: Temperature 97.5, blood pressure 110/60, pulse 97, respirations 14, O2 sat 95%. GENERAL: The patient's appetite normal. She slept about 7 hours last night. CURRENT MEDICATIONS: Gabapentin 100 mg twice a day, trazodone 50 mg at night and 50 mg at night p.r.n., melatonin 3 mg at night, Zoloft 50 mg at night, Seroquel 25 mg twice a day, mirtazapine 15 mg at night and olanzapine 2.5 mg q. 2 hours p.r.n. LABORATORY DATA: The patient's lab reviewed. ASSESSMENT: 1. Major neurocognitive disorder, vascular with delusion, depression and behavioral disturbances. 2. Anxiety disorder, unspecified. PLAN: To continue with the treatment. LENGTH OF STAY: Three to four days, waiting for placement. BOBBY/ISAURA/HENRY DR: BOBBY/dilshad TID: [id number]
[2022-02-04] MEDS: traZODone 50 MG TABLET. PO PRN (02:19)
[2022-02-04 05:34] VITALS: BP 139/72
[2022-02-04] MEDS: QUEtiapine 25 MG TABLET. PO SCH ×2 (07:18→19:05)
[2022-02-04] MEDS: IPRATROPIUM/ALBUTEROL 20/100mcg/INH INHALER. INH SCH ×4 (07:18→19:06)
[2022-02-04] MEDS: GABAPENTIN 100 MG CAPSULE. PO SCH ×2 (07:18→17:00)
[2022-02-04] MEDS: metFORMIN 500 MG TABLET PO SCH ×2 (07:18→17:00)
[2022-02-04] MEDS: NYSTATIN TOPICAL POWDER 15GM BOTTLE. TP SCH ×4 (07:21→19:06)
[2022-02-04 16:05] VITALS: BP 153/77
--- NOTE | 2022-02-04 16:25 | TX PLAN ---
Interdisciplinary Tx Plan Admission Information Sep 27, 2021 at 12:55 Legal Status (on Admission): Voluntary DPOA/Guardian Name: Lucille NieceOscar Bergman Contact Other Contact Name: Jayna Sheikh Contact Verified Code Status: Full Code Allergies: Coded Allergies: No Known Drug Allergies (Unverified , 07/16/21) Diagnoses Primary Diagnosis: 1. 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 Mood disorder, unspecified. Reasons for Admission: Aggressive, Delusions, Agitated, Sig. Change Sleep, Hallucinations, Combative Problem in Patient's Words: Per pt great niece/DPOAАнна who was raised mostly by pt, pt has had a noticable decline over the past year and particularlly over the past couple of months. Up until a year ago, pt was living in her independant living apartment and out of the state line, she moved to [place], [place] and bought a house that she paid winn for. She was then found to be living in very poor conditions without running water and no utilities and overall unable to care for herself. She had a few past hospitalizations but then release to herself and then would be found again living in unsafe conditions. At one point, pt drove herself to Анна's home, but refused to come in to stay, and would only stay in her car. Анна was finally successful at gaining DPOA during one of pt's hospitalizations and also in getting her license revoked. During the past year, family and staff during the different hospitalizations discovered pt was having hallucinations and delusions that seem to continue. Анна is concerned if pt is struggling with onset of dementia or if pt is truly experiencing psychosis and might clear in the future with medication management. Additional Admission Comments: Per intake record, pt refusing UA and cath, sexually inappropriate comments to staff, not sleeping for 30 hours, combative to staff, delusions,auditory hallucinations, verbally aggressive, screaming, cussing, disruptive. Problems Active Problems: Agitation Inactive Problems: Pt has shown improvements. She is less aggressive, delusional, and combative. She, also, is sleeping better. Pt Strengths/Limitations Ability for [place]: Poor Cognitive Functioning/Ability: Poor Communication Skills/Ability: Fair Financial Resources: Fair Insight/Judgement: Poor Intellectual Ability: Fair Physical Health: Poor Social Skills: Fair Stability in Family: Fair Stability in School/Work: Fair Verbal Skills: Fair Discharge Criteria Discharge Criteria: Adequate arrangements @DC, Verbal commit med comply, Improved behavior, Improved mood/thought Other Discharge Comments: None at this time. Preliminary Discharge Plan Preliminary DC Plan: Placement Needed Special Precautions Special Precautions: Agitation/Assault, Swallowing/Choking Fall Risk: High Other Precautions (specify): Pt has a history of falls. Initial D/C Plan Pt will need placement at time of discharge. Identified Discharge Needs: None at this time. Currently Utilized Resources Currently Utilized Resources/P: Great Niece/DPOA-Анна Jj has hired and state's attorney to assist with guardianship. Prior to Admission: PCP-Dr. Quang Raza Facility-[facility]; contact-CHANA Cruz *Note-Pt will not return to [facility] Referrals Community Resources: None known at this time. Identified Problems/Hx/Goals Objectives/Short-Term Goals Short Term Goals: Control abnormal behavior, Dec. Aggression, Dec. Anxiety/Panic, Dec. Hallucination/Delus, Dec. Outbursts, Medication Stabilization, Monitor Med Effects, Prevent Deterioration, Promote Coping Skill Short Term Goals in Patient's: Assist with proper diagnosis of psychosis vs dementia. Interventions/Frequency Staff Interventions/Frequency&: Psychiatry to assess pt three times per week for medication management. Nursing to assess behaviors, monitor medications, and complete 15 minute checks daily. Social work to see pt at least two times weekly to aid in return to placement. Activities to encourage pt to participate in group activities daily. 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 Education: According to DPOA, pt received a high school diploma and she had some technical college. Community Follow-up PCP Community Provider/Family Inpu: Pt great nigregorio/Анна LANG, provided pt history for the development of the treatment plan. Анна is available for further information should it be needed. Treatment Plan Explained Patient/Special Trackwork Blacksmith had this treatment plan explained to him/her as indicated by the signature below and has been given the opportunity to ask questions and make suggestions: Date: Patient/Special Trackwork Blacksmith Signature: Status Update Update Over the past week, pt has been eating 91.6% of her meals and sleeping and average of 8 hours each night. She continues to be pleasant on the unit and engages with staff and other patients. She enjoys singing made up songs. Pt is medication compliant and is cooperative with her cares. She requires assistance with toileting and transfers. Guardianship continues to be worked on through legal to get finances in line and Medicaid pursued. Placement will be sought once legal has established Medicaid/Medicaid pending. LINDA BLACKWELL February 04, 2022 16:25
[2022-02-04] MEDS: MELATONIN 3 MG TABLET PO SCH (19:05)
[2022-02-04] MEDS: MIRTAZAPINE 15 MG TABLET PO SCH (19:05)
[2022-02-04] MEDS: SERTRALINE 50 MG TABLET. PO SCH (19:06)
[2022-02-04] MEDS: traZODone 50 MG TABLET. PO SCH (19:06)
== END 2022-02-05 | DRG 57 ==
LOC: GEROPSY 12:55
PROVIDERS: ADMIT Psychiatry & Neurology Psychiatry; ATTEND Psychiatry & Neurology Psychiatry
DX: G30.9 Alzheimer's disease, unspecified (principal); F01.51 Vascular dementia, unspecified severity, with behavioral disturbance; F02.81 Dementia in other diseases classified elsewhere, unspecified severity, with behavioral disturbance; F63.9 Impulse disorder, unspecified; E11.9 Type 2 diabetes mellitus without complications; E66.9 Obesity, unspecified; E78.5 Hyperlipidemia, unspecified; F32.A Depression, unspecified; F41.9 Anxiety disorder, unspecified; G89.29 Other chronic pain; R13.10 Dysphagia, unspecified; Z79.899 Other long term (current) drug therapy; I45.9 Conduction disorder, unspecified; Z20.822 Contact with and (suspected) exposure to COVID-19; Z68.38 Body mass index [BMI] 38.0-38.9, adult
CPT/HCPCS: 36415; 71045; 73120; 80053; 80061; 81001; 82306; 82607; 82947; 83036; 83540; 83550; 83735; 83880; 84436; 84443; 84480; 84484; 85025; 85379; 87077; 87086; 93005; J7512